=== PATIENT | male | born 1950 | race Caucasian/White ===

== ENCOUNTER 2019-05-20 22:43 | Inpatient (IN) | payer MEDICARE, SELFPAY ==
[2019-05-20 22:45] VITALS: O2SAT 97
--- NOTE | 2019-05-20 22:45 | ED_ITS ---
Entered by Cindy Rodríguez, acting as scribe for Tayler Carter MD HPI - Altered Mental Status General: Chief Complaint: Altered Mental Status Stated Complaint: AMS Time Seen by Provider: 05/20/19 22:45 Source: patient and EMS Mode of arrival: EMS History of Present Illness: HPI narrative: 68 y/o male presents to the ED with complaint of AMS. EMS states they were called by police who found him driving all over the road. Pt does not know where he is, what year it is or who the president is. Pt is able to state his name. Police spoke to his brother who is out of state. He has not other family. Pt is soaked in urine and cannot answer any questions or explain why he is here. Police found a bottle of Hydrocodone tablets in his truck. complaint: altered mental status and confusion Severity: moderate Context: unknown Associated symptoms: Deny depression Review of Systems General: Reports: ROS unobtainable due to mental status Const: Denies: fever, chills, body aches or change in appetite Eyes: Denies: blurry vision or eye discomfort ENMT: Denies: throat pain or dental pain Card: Denies: chest pain Resp: Denies: shortness of breath GI: Denies: abdominal pain, nausea, vomiting or diarrhea : Denies: painful urination Musc: Denies: neck pain or back pain Skin/Breast: Denies: rash Neuro: Denies: headache Psych: Denies: depression Stanley/Lymph: Denies: easy bruising All/Imm: Denies: hives PFSH ED PFSH: Statuses (acute, chronic, etc) shown below reflect problem list status as previously entered and may not be historically accurate Social History Smoking and tobacco status: unknown if ever smoked Physical Exam Const: COMMON NORMALS: negative for oriented x3 EXAM LIMITATIONS: altered mental status NUTRITIONAL APPEARANCE: obese ORIENTATION/CONSCIOUSNESS: Yes oriented to person and Yes confused HENMT: COMMON NORMALS: normocephalic and head/scalp atraumatic HEAD & SCALP: normocephalic and atraumatic Eye: COMMON NORMALS: PERRL and EOMs intact bilaterally PUPIL: Yes PERRL Neck/C-Spine: COMMON NORMALS: full ROM and supple Chest: COMMONS NORMALS: inspection of chest normal and palpation of chest normal Resp: COMMON NORMALS: normal respiratory effort, no retractions, no use of accessory muscles and clear to auscultation bilaterally AUSCULTATION: clear to auscultation bilaterally Cardio: COMMON NORMALS: regular rate, regular rhythm and no murmurs RATE: regular rate RHYTHM: regular rhythm GI: COMMON NORMALS: normal to inspection, nondistended, normoactive bowel sounds, soft to palpation, non-tender and no masses PALPATION: Yes soft Extremity: COMMON NORMALS: normal to inspection and full ROM Neuro: COMMON NORMALS: moves all extremities and no focal motor deficits; negative for oriented x3 SENSORIUM/ORIENTATION: Yes oriented to person Psych: APPEARANCE: Yes unkempt Skin: COMMON NORMALS: no rashes or lesions noted and no wounds GENERAL SKIN EXAM: no rashes or lesions noted Course Vital Signs: Vital signs: Vital Signs Temperature 98.5 F 05/21/19 02:18 Pulse Rate 91 05/21/19 02:18 Respiratory Rate 18 05/21/19 02:18 Blood Pressure 199/97 05/21/19 02:18 Pulse Oximetry 97 05/21/19 02:18 MDM - Altered Mental Status MDM Narrative: Medical decision making narrative: Patient presents here with altered mental status likely has chronic dementia. Patient's brother spoke to the police and states that he has been increasingly confused and brother lives in [place]. He has no family here. Patient is hypertensive as well and has not been taking his meds for months. Spoke to hospitalist will admit as patient likely needs assisted placement. He has no signs of meningitis and CT head is normal. Lab Data: Labs: Lab Results 05/20/19 05/20/19 05/20/19 Range/Units 23:12 23:12 23:12 WBC 7.1 (4.0-10.0) 10^3/ uL RBC 4.14 (4.1-5.3) 10^6/u L Hgb 12.5 (11.7-16.6) g/dL Hct 37.1 L (42.0-52.0) % MCV 89.6 (80-94) fL MCH 30.2 (28.0-34.0) pg MCHC 33.7 (30.0-36.0) g/dL RDW 12.8 (12.1-15.1) % Plt Count 193 (130-400) 10^3/c mm MPV 9.8 (7.4-10.4) fL Neut % (Auto) 70.0 % Lymph % (Auto) 16.1 % [place] % (Auto) 8.4 % Eos % (Auto) 4.2 % Baso % (Auto) 1.0 % Neut # (Auto) 5.0 (1.8-7.7) 10^3/u L Lymph # (Auto) 1.2 (0.8-4.8) 10^3/u L [place] # (Auto) 0.6 (0.2-0.9) 10^3/u L Eos # (Auto) 0.3 (0.0-0.8) 10^3/u L Baso # (Auto) 0.1 (0.0-0.1) 10^3/u L Nucleated RBC % (a uto) 0 % Nucleated RBCs # 0.0 /100WBC PT 14.50 H (10.5-13.3) SECO NDS INR 1.09 (0.8-1.2) Sodium 140 (136-145) mmol/L Potassium 3.6 (3.5-5.1) mmol/L Chloride 101 (98-107) mmol/L Carbon Dioxide 26 (22-29) mmol/L Anion Gap 16.6 (5-19) BUN 21 (8-23) mg/dL Creatinine 3.1 H (0.7-1.2) mg/dL GFR Calculation 20.0 L (90-130) mL/min Glucose 163 H (65-115) mg/dL Calcium 8.7 (8.5-10.5) mg/dL Total Bilirubin 0.2 (0.15-1.2) mg/dL AST 13 (0-40) U/L ALT 12 (0-41) U/L Alkaline Phosphata se 94 (40-130) IU/L Total Protein 6.5 L (6.6-8.7) g/dL Albumin 3.5 (3.5-5.2) g/dL Globulin 3.0 (1.3-4.6) g/dL TSH 0.72 (0.27-4.20) uIU/ mL Salicylates 0.7 L (3-10) mg/dL Acetaminophen < 5.0 L (10-30) ug/mL Ethyl Alcohol < 10 (0-10) mg/dL Imaging Data^: CXR: Attestation: I personally reviewed and interpreted this imaging study as follows: My impression: no acute abnormality CT Head: Radiologist's impression: Ordering Provider/Ordering MD: Tayler Carter MD Date of Service: 05/20/19 Procedure(s): CT head wo con* [id number] Accession Number(s): [id number] Report Number: [id number] PROCEDURE INFORMATION: Exam: CT Head Without Contrast Exam date and time: 05/20/2019 10:54 PM Age: 68 years old Clinical indication: Altered mental status/memory loss; Confusion or disorientation; Additional info: AMS TECHNIQUE: Imaging protocol: Computed tomography of the head without contrast. Total DLP: 962.63 mGy-cm Radiation optimization: All CT scans at this facility use at least one of these dose optimization techniques: automated exposure control; mA and/or kV adjustment per patient size (includes targeted exams where dose is matched to clinical indication); or iterative reconstruction. COMPARISON: No relevant prior studies available. FINDINGS: Brain: There is moderate cortical atrophy. Low-density changes are present in white matter regions in keeping with nonspecific small vessel chronic ischemic change. There is small old lacunar infarct in the right thalamus. There is no intracranial mass, hemorrhage or edema. Midline shift: There is no shift of midline structures. Ventricles: Normal. No ventriculomegaly. Bones/joints: Unremarkable. No acute fracture. Sinuses: There is opacification of the right maxillary sinus with slightly hyperdense material which contains some calcifications. This is consistent with chronic fungal sinusitis. The other paranasal sinuses are normally aerated and clear. Mastoid air cells: Visualized mastoid air cells are well aerated. Soft tissues: Unremarkable. CT/CT head wo con* [id number] IMPRESSION: 1. Atrophy and old lacunar disease. 2. Chronic right maxillary fungal sinusitis. 3. No acute intracranial finding EKG Data^: EKG 1: Attestation: I personally reviewed and interpreted this EKG as follows: EKG interpretation date: 05/19/19 EKG interpretation time: 22:58 Interpretation: nsr hr [address] or twave abnormalities qrs 112 qtc 446 Discharge Plan Discharge Patient Disposition: Admitted As Inpatient Admit Provider: Hira Ruiz Clinical Impression: Altered mental status Qualifiers: Altered mental status type: unspecified Qualified Code(s): R41.82 - Altered mental status, unspecified Hypertension Qualifiers: Hypertension type: essential hypertension Qualified Code(s): I10 - Essential (primary) hypertension Condition: Stable Interventions: ED Discharge Assessment Last Done: 05/21/19 02:18 Discharge Date/Time: 05/21/19 02:23 Coding Level of Care Code ED Ammonium Hydroxide Operator for [facility] Fwsandra The documentation recorded by the Marcos calabrese Ashley, accurately reflects the service I personally performed and the decisions made by Raul marin Korby, MD May 20, 2019 22:43
--- NOTE | 2019-05-20 22:50 | CTR_ITS ---
PROCEDURE INFORMATION: Exam: CT Head Without Contrast Exam date and time: 05/20/2019 10:54 PM Age: 68 years old Clinical indication: Altered mental status/memory loss; Confusion or disorientation; Additional info: AMS TECHNIQUE: Imaging protocol: Computed tomography of the head without contrast. Total DLP: 962.63 mGy-cm Radiation optimization: All CT scans at this facility use at least one of these dose optimization techniques: automated exposure control; mA and/or kV adjustment per patient size (includes targeted exams where dose is matched to clinical indication); or iterative reconstruction. COMPARISON: No relevant prior studies available. FINDINGS: Brain: There is moderate cortical atrophy. Low-density changes are present in white matter regions in keeping with nonspecific small vessel chronic ischemic change. There is small old lacunar infarct in the right thalamus. There is no intracranial mass, hemorrhage or edema. Midline shift: There is no shift of midline structures. Ventricles: Normal. No ventriculomegaly. Bones/joints: Unremarkable. No acute fracture. Sinuses: There is opacification of the right maxillary sinus with slightly hyperdense material which contains some calcifications. This is consistent with chronic fungal sinusitis. The other paranasal sinuses are normally aerated and clear. Mastoid air cells: Visualized mastoid air cells are well aerated. Soft tissues: Unremarkable. CT/CT head wo con* [id number] IMPRESSION: 1. Atrophy and old lacunar disease. 2. Chronic right maxillary fungal sinusitis. 3. No acute intracranial finding Radiation Dose CTDIVOL = (mGy): DLP = 962.63 (mGy-cm)
--- NOTE | 2019-05-20 22:50 | XR_ITS ---
WS: [id number] CHEST XRAY TECHNIQUE: Portable chest. CLINICAL INFORMATION: COMPARISON: November 20, 2014 FINDINGS: Heart: Cardiomegaly. Sternotomy. Lungs: Lungs are clear. No consolidation or pleural effusion. Bones: Normal visualized bony structures. XR/XR chest 1V portable [id number] IMPRESSION: Cardiomegaly. No acute pulmonary infiltrates.
--- NOTE | 2019-05-20 22:51 | ECG_ITS ---
Measurements Intervals [place] Rate: 99 P: -44 NE: 150 QRS: 26 QRSD: 113 T: 38 QT: 340 QTc: 437 SINUS RHYTHM WITH SINUS ARRHYTHMIA, PAC LEFT ATRIAL ENLARGEMENT [-0.15mV P WAVE IN V1/V2] POSSIBLE LEFT VENTRICULAR HYPERTROPHY [VOLTAGE CRITERIA PLUS LAE OR QRS WIDENING] INFERIOR MYOCARDIAL INFARCTION , PROBABLY OLD [40+ ms Q WAVE AND/OR ST/T AB ABNORMALITY IN II/aVF] Compared to ECG 11/21/2014 13:59:04 Atrial abnormality now present Myocardial infarct finding now present Sinus bradycardia no longer present Intraventricular conduction delay no longer present ST (T wave) deviation no longer present Electronically Signed On 05-21-2019 9:29:06 CASTING SUPERVISOR by Heri Maria M.D. [email or web address]
[2019-05-20 22:55] VITALS: BP 244/112; PULSE 75; RESP 16; TEMP 36.8; O2SAT 93; BMI 33.2
[2019-05-20 23:01] VITALS: BP 233/105; PULSE 76; RESP 17; O2SAT 92
[2019-05-20 23:19] LABS: Basophils # 0.1 10^3/uL (0.0-0.1); Eosinophils # 0.3 10^3/uL (0.0-0.8); Eosinophils % 4.2 %; Hematocrit 37.1 % (42.0-52.0); Hemoglobin 12.5 g/dL (11.7-16.6); Lymphocytes # 1.2 10^3/uL (0.8-4.8); Lymphocytes % 16.1 %; Mean Corpuscular HGB Conc 33.7 g/dL (30.0-36.0); Mean Corpuscular Hemoglobin 30.2 pg (28.0-34.0); Mean Corpuscular Volume 89.6 fL (80-94); Mean Platelet Volume 9.8 fL (7.4-10.4); Monocytes # 0.6 10^3/uL (0.2-0.9); Monocytes % 8.4 %; Nucleated Red Blood Cells % 0 %; Platelet Count 193 10^3/cmm (130-400); Red Blood Count 4.14 10^6/uL (4.1-5.3); Red Cell Distribution Width 12.8 % (12.1-15.1); White Blood Count 7.1 10^3/uL (4.0-10.0)
[2019-05-20 23:30] LABS: INR 1.09 (0.8-1.2)
[2019-05-20 23:31] VITALS: BP 214/91; PULSE 77; RESP 15; O2SAT 93
[2019-05-20 23:44] LABS: Alanine Aminotransferase 12 U/L (0-41); Albumin Level 3.5 g/dL (3.5-5.2); Alkaline Phosphatase 94 IU/L (40-130); Anion Gap 16.6 (5-19); Aspartate Amino Transferase 13 U/L (0-40); Blood Urea Nitrogen 21 mg/dL (8-23); Calcium 8.7 mg/dL (8.5-10.5); Carbon Dioxide 26 mmol/L (22-29); Chloride 101 mmol/L (98-107); Potassium 3.6 mmol/L (3.5-5.1); Salicylate 0.7 mg/dL (3-10); Sodium 140 mmol/L (136-145); Thyroid Stimulating Hormone 0.72 uIU/mL (0.27-4.20); Total Bilirubin 0.2 mg/dL (0.15-1.2); Total Protein 6.5 g/dL (6.6-8.7)
[2019-05-20] MEDS: hyDRALAzine 20 mg/mL INJ 1 mL 10 MG IVP (23:54)
[2019-05-20 23:58] LABS: Acetaminophen < 5.0 ug/mL (10-30); Alcohol Level < 10 mg/dL (0-10)
[2019-05-21] VITALS (24 sets, daily range): BP systolic 114–220; BP diastolic 51–114; PULSE 71–107; RESP 10–35; TEMP 35.9–37.2; O2SAT 90–97
[2019-05-21] MEDS: cloNIDine 0.1 mg Tablet PO (00:26)
[2019-05-21] MEDS: hyDRALAzine 20 mg/mL INJ 1 mL 10 MG IVP (02:00)
--- NOTE | 2019-05-21 02:38 | PC.NURSE ---
While Dr. Ruiz was assessing patient for admission patient began seizing. Patient had what appeared to be a full tonic-clonic seizure for approx 30 seconds. Patient was post ictal afterwards and lost control of bladder. Dr. Valdivia ordered 2mg Ativan IV push that was overridden and administered immediately.
[2019-05-21] MEDS: LORazepam 2 mg/mL INJ 1 mL IVP (02:40)
--- NOTE | 2019-05-21 02:44 | CTR_ITS ---
PROCEDURE INFORMATION: Exam: CT Thoracic Spine Without Contrast Exam date and time: 05/21/2019 3:23 AM Age: 68 years old Clinical indication: Pain in thoracic spine; Additional info: Thoracic spine pain TECHNIQUE: Imaging protocol: Computed tomography images of the thoracic spine without contrast. Total DLP: 2453.68 mGy-cm Radiation optimization: All CT scans at this facility use at least one of these dose optimization techniques: automated exposure control; mA and/or kV adjustment per patient size (includes targeted exams where dose is matched to clinical indication); or iterative reconstruction. COMPARISON: [place] Thoracic [place] IV* [id number] 2014-11-18 16:19 FINDINGS: Tubes, catheters and devices: Device implanted in the soft tissues. Vertebrae: Exaggerated thoracic kyphosis with maintained vertebral body heights and alignments. Discs/Spinal canal/Neural foramina: Mild degenerative disc and joint disease. No significant stenosis. Soft tissues: Periarticular spurs. Lungs: Dependent subsegmental pulmonary atelectasis. CT/CT thoracic spin wo con* [id number] IMPRESSION: Unremarkable CT Spine. Radiation Dose CTDIVOL = (mGy): DLP = 2453.68 (mGy-cm)
--- NOTE | 2019-05-21 02:50 | PC.NURSE ---
Cardene started at 5mg/hr unable to access in MAR
--- NOTE | 2019-05-21 02:53 | CTR_ITS ---
PROCEDURE INFORMATION: Exam: CT Lumbar Spine Without Contrast Exam date and time: 05/21/2019 3:23 AM Age: 68 years old Clinical indication: Low back pain TECHNIQUE: Imaging protocol: Computed tomography images of the lumbar spine without contrast. Total DLP: 2422.15 mGy-cm Radiation optimization: All CT scans at this facility use at least one of these dose optimization techniques: automated exposure control; mA and/or kV adjustment per patient size (includes targeted exams where dose is matched to clinical indication); or iterative reconstruction. COMPARISON: [place] [id number] 2018-12-13 14:37 FINDINGS: Vertebrae: Normal spinal curvature, vertebral body heights, and alignment. No spinal fracture or acute subluxation. Discs/Spinal canal/Neural foramina: Diffuse degenerative disc space loss, facet arthropathy and ligamentum flavum thickening, and scattered disc bulge/protrusions cause up to moderate foraminal and spinal stenosis most severe from L3 through S1. Soft tissues: Unremarkable. CT/CT lumbar spine wo con* [id number] IMPRESSION: No acute vertebral fracture/subluxation. Radiation Dose CTDIVOL = (mGy): DLP = 2422.15 (mGy-cm)
--- NOTE | 2019-05-21 02:53 | CTR_ITS ---
PROCEDURE INFORMATION: Exam: CT Abdomen And Pelvis Without Contrast Exam date and time: 05/21/2019 3:23 AM Age: 68 years old Clinical indication: Abdominal pain; Additional info: Abdominal distention, kidney stone TECHNIQUE: Imaging protocol: Computed tomography of the abdomen and pelvis without contrast. Total DLP: 1715.83 mGy-cm Radiation optimization: All CT scans at this facility use at least one of these dose optimization techniques: automated exposure control; mA and/or kV adjustment per patient size (includes targeted exams where dose is matched to clinical indication); or iterative reconstruction. COMPARISON: US Renal Kidney Structu* [id number] 2014-07-10 09:14 FINDINGS: Limitations: Artifact related to patient's arm position limits evaluation. Tubes, catheters and devices: Partially visualized spinal stimulator device. A balloon bladder catheter is present. Lungs: Dependent subsegmental pulmonary atelectasis. Liver: Normal. No mass. Gallbladder and bile ducts: Cholelithiasis. Pancreas: Normal. No ductal dilation. Spleen: Normal. No splenomegaly. Adrenals: Normal. No mass. Kidneys and ureters: Mild renal atrophy. Stomach and bowel: Constipation. Appendix: No evidence of appendicitis. Intraperitoneal space: Unremarkable. No free air. No significant fluid collection. Vasculature: Mild to moderate aortic and iliac artery atherosclerotic calcification. Lymph nodes: Unremarkable. No enlarged lymph nodes. Bladder: Unremarkable as visualized. Reproductive: Unremarkable as visualized. Bones/joints: Sternotomy. Soft tissues: Small fat protruding umbilical hernia. CT/CT abdomen pelvis wo con [id number] IMPRESSION: 1. Cholelithiasis. 2. Constipation. Radiation Dose CTDIVOL = (mGy): DLP = 1715.83 (mGy-cm)
--- NOTE | 2019-05-21 03:20 | PC.NURSE ---
Blood pressure decreased to 114 systolic, Cardene reduced to 2.5mg/hr
[2019-05-21 03:28] LABS: Glucose Urine UA 1+ (Normal); Protein Urine 3+ (Negative); Urine Appearance Clear (CLEAR); Urine Color Yellow (Yellow); pH Urine 7 (5-7)
[2019-05-21 03:30] LABS: Add Urine Microscopic? YES; Bilirubin Urine Neg (NEGATIVE); Blood Urine Neg (Negative); Ketones Urine Negative (Negative); Leukocyte Esterase Urine Negative (Negative); Nitrate Urine Negative (Negative); RBC Urine 0-4 /hpf (0-2); Urobilinogen Urine Norm (Negative)
--- NOTE | 2019-05-21 03:32 | PM.HP ---
Providers/Chief Complaint Admitting Physician: Hira Ruiz MD Chief Complaint: AMS, HYPERTENSION History of Present Illness Moy Fernandez is a 68 year old male with a past medical history of combined systolic and diastolic heart failure, last ejection fraction 35%, history of CABG x3, hypertension, hyperlipidemia, type 2 diabetes mellitus, hyperlipidemia, chronic kidney disease stage III-IV, history of spinal stimulator, who presents to the emergency room due to altered mental status. Currently patient is not answering any questions alert oriented x0. Most of the history was obtained from secondhand accounts. Apparently early Sunday morning, patient was found driving, swerving on the road, he was pulled over by the police, patient was acting confused, was not responding appropriate to questioning, did not know where he was going, did not know where he came from. In the emergency room, patient does not appropriate respond to questioning, he will follow some commands such as opening his eyes, closing his mouth, squeezing my fingers, wiggling his toes, smiling, but will not respond to questioning, he did repeat the phrase sit forward a couple times for me. When asked him to sit forward he actually sat forward a little, I helped him forward and I ran my hand over his upper back, patient suddenly became very agitated started crying out in pain, his dentures fell out, and then subsequently went into a tonic-clonic seizure which lasted 1 minute, had urinary incontinence, was aborted with 2 mg of Ativan, patient had postictal confusion afterwards, and then fell asleep, currently snoring, heart rates in the 100s sinus, blood pressures was in the 190s over 80s, after minimal Cardene drip, came down to 114/67, he is saturating high 90s on 2 L nonrebreather, has bilateral pupillary reflexes, does not track, is sleeping off the Ativan. Nursing staff was able to reach out to brother in [place], brother in [place] states that for the past few weeks patient has not been acting appropriately over the phone, has been acting confused, such as is been talking about seeing his mother, but his mother has many years ago. Review of Systems General: Reports: ROS unobtainable due to mental status Medications/Allergies Additional Medication Information Additional Medication Information: [place] 7.5 BID PFSH Acute PFSH: Statuses (acute, chronic, etc) shown below reflect problem list status as previously entered and may not be historically accurate Medical History (Updated 05/21/19 @ 03:44 by Hira Ruiz MD) CKD (chronic kidney disease), stage III (Acute) Combined systolic and diastolic congestive heart failure (Acute) Multilevel degenerative disc disease (Acute) Peripheral neuropathy (Acute) Spinal cord stimulator status (Acute) Spinal stenosis (Acute) Type 2 diabetes mellitus (Acute) Surgical History (Updated 05/21/19 @ 03:48 by Hira Ruiz MD) S/P CABG x 3 (Acute) S/P insertion of spinal cord stimulator (Acute) Social History Smoking and tobacco status: unknown if ever smoked Vitals/I&O/Wt Last Vital Signs Temp 98.5 F 05/21/19 02:18 Pulse 91 05/21/19 02:18 Resp 18 05/21/19 02:18 BP 114/67 05/21/19 03:20 Pulse Ox 97 05/21/19 02:18 Weight last 48 hrs Weight 102.058 kg Physical Exam Const: COMMON NORMALS: no apparent distress GENERAL APPEARANCE: cooperative and comfortable HENMT: COMMON NORMALS: normocephalic HEAD & SCALP: normocephalic Eye: COMMON NORMALS: PERRL and EOMs intact bilaterally GENERAL EYE: normal appearance of both eyes PUPIL: Yes PERRL Neck/C-Spine: COMMON NORMALS: full ROM, no lymphadenopathy, no JVD and thyroid normal Lymph: LYMPHATIC: no lymphadenopathy noted Resp: COMMON NORMALS: normal respiratory effort, no retractions, no use of accessory muscles and clear to auscultation bilaterally AUSCULTATION: clear to auscultation bilaterally Cardio: COMMON NORMALS: no JVD, regular rate, regular rhythm, S1 normal heart sound, S2 normal heart sound, no gallops, no clicks and no murmurs RATE: regular rate RHYTHM: regular rhythm HEART SOUNDS: S1 normal and S2 normal GI: COMMON NORMALS: normal to inspection, nondistended, normoactive bowel sounds, soft to palpation, non-tender and no hepatosplenomegaly PALPATION: Yes soft and Yes no hepatosplenomegaly Extremity: COMMON NORMALS: normal to inspection, full ROM and no pedal edema Neuro: OTHER: Alert oriented x1 Does follow commands such as opening his mouth, sticking his tongue out, moving to the left, to moving into the right, closes his eyes, squeezes my fingers, wiggles his toes, does not really speak, did repeat the face sit forward a couple of times, PERRLA, no facial droop, no slurring of his speech, Psych: APPEARANCE: Yes unkempt Data : 05/20/19 23:12 05/20/19 23:12 A&P Assessment and plan (1) Altered mental status: -Work-up so far is pending -UA is pending -We will start on Rocephin for possible UTI until UA can be obtained -Chest x-ray negative for pneumonia -No fevers, no leukocytosis, no neck stiffness -Abdomen is a bit distended, will do CT abdomen -Salicylates negative, acetaminophen negative, alcohol level negative, drug screen pending Status: Acute Qualifiers: Altered mental status type: unspecified Qualified Code(s): R41.82 - Altered mental status, unspecified Code(s): R41.82 - Altered mental status, unspecified (2) Hypertensive urgency: -Cardene drip Status: Acute Code(s): I16.0 - Hypertensive urgency (3) Tonic-clonic seizure disorder: -Aborted with 2 mg Ativan -We will order EEG -On Keppra IV 500 twice daily -Possibly pain induced seizure from back pain? Status: Acute Code(s): G40.409 - Other generalized epilepsy and epileptic syndromes, not intractable, without status epilepticus (4) Hypertension: Status: Acute Qualifiers: Hypertension type: essential hypertension Qualified Code(s): I10 - Essential (primary) hypertension Code(s): I10 - Essential (primary) hypertension (5) Multilevel degenerative disc disease: -Patient was quite tender over over the thoracic and lumbar spine -We will order CT of lumbar thoracic spine -Patient does have a history of a spinal cord stimulator, has a history of postoperative epidural hematoma in the thoracic region on 11/18/2014 -Inflammatory markers ordered Status: Acute Code(s): M53.9 - Dorsopathy, unspecified (6) Spinal stenosis: Status: Acute Code(s): M48.00 - Spinal stenosis, site unspecified (7) Combined systolic and diastolic congestive heart failure: -Patient's echo in -Patient had a stress test in 06/05/2018 which showed small sized perfusion abnormality of the entire inferior, apical septal, and apical esparza, likely represent old myocardial infarct versus scarring with mild urmila-infarct ischemia in the right coronary artery territory. Mild global hypokinesia with moderate hypokinesia of the entire inferior wall. -Echocardiogram in 06/05/2018 showed Left ventricular ejection fraction of 35%, diastolic CHF -Currently has bilateral lower extremity edema, 1+ -Creatinine is 3.1 has CKD stage III, baseline creatinine 2 Plan: -Currently not in exacerbation of CHF -Hold diuretics Status: Acute Code(s): I50.40 - Unspecified combined systolic (congestive) and diastolic (congestive) heart failure (8) Type 2 diabetes mellitus: Sliding scale Status: Acute Code(s): E11.9 - Type 2 diabetes mellitus without complications (9) CKD (chronic kidney disease), stage III: Baseline creatinine 2 Creatinine 3[address] of the abdomen to evaluate for possible nephrolithiasis Monitor creatinine and kidney function Status: Acute Code(s): N18.3 - Chronic kidney disease, stage 3 (moderate) Attestations Medical Necessity Statement*: Patient requires hospitalization, inpatient, for altered mental status Coding Level of Care Code Acute Dynamometer Tuner for [facility] Fwd Diagnoses Altered mental status R41.82 Altered mental status type: unspecified Hypertensive urgency I16.0 Tonic-clonic seizure disorder G40.409 Hypertension I10 Hypertension type: essential hypertension Multilevel degenerative disc disease M53.9 Spinal stenosis M48.00 Combined systolic and diastolic congestive heart failure I50.40 Type 2 diabetes mellitus E11.9 CKD (chronic kidney disease), stage III N18.3
[2019-05-21 03:33] LABS: Add Urine Culture? No; Amorphous Sediment Urine 2+; Bacteria Urine 1+; Squamous Epithelial Cell Urine 0-4 (0-5); WBC Urine 0-4 /hpf (0-5)
--- NOTE | 2019-05-21 03:41 | PC.NURSE ---
Patient held in ED to wait for CT to be ready to complete CT's so patient could have CT's completed on the way to ICU.
[2019-05-21 05:12] LABS: Amphetamines Screen Urine Negative (Negative); Barbiturates Screen Urine Negative (Negative); Benzodiazepines Screen Urine Negative (Negative); Cocaine Screen Urine Negative (Negative); Opiate Screen Urine Negative (Negative); PCP Screen Urine Negative (Negative); THC Screen Urine Negative (Negative)
[2019-05-21] MEDS: enoxaparin 40 mg/0.4 mL Syringe SUBCUT (05:17)
[2019-05-21] MEDS: cefTRIAXone 1,000 MG in sodium chloride 0.9% (plus) 50 ML 100 MG IV (05:17)
[2019-05-21] MEDS: sodium chloride 0.9% 1,000 ML 75 ML IV ×2 (05:17→22:00)
[2019-05-21 07:01] LABS: Alanine Aminotransferase 11 U/L (0-41); Albumin Level 3.3 g/dL (3.5-5.2); Alkaline Phosphatase 92 IU/L (40-130); Anion Gap 20.4 (5-19); Aspartate Amino Transferase 13 U/L (0-40); Blood Urea Nitrogen 19 mg/dL (8-23); C Reactive Protein 6.9 mg/L (0.0-4.9); Calcium 8.8 mg/dL (8.5-10.5); Carbon Dioxide 22 mmol/L (22-29); Chloride 101 mmol/L (98-107); Chol HDL Ratio 8.53 mg/dL (1.0-5.00); Cholesterol 273 mg/dL (0-200); Globulin 3.4 g/dL (1.3-4.6); Glomerular Filtration Rate 21.6 mL/min (90-130); HDL Cholesterol 32 mg/dL (60-100); LDL Cholesterol Calculated 210 mg/dL (50-129); LDL HDL Ratio 6.56 RATIO (0.00-3.22); Magnesium 1.8 mg/dL (1.7-2.3); Potassium 3.4 mmol/L (3.5-5.1); Sodium 140 mmol/L (136-145); Total Bilirubin 0.4 mg/dL (0.15-1.2); Total Protein 6.7 g/dL (6.6-8.7); Triglycerides 154 mg/dL (0-150)
[2019-05-21 07:08] LABS: Estmated Average Glucose 171; Hemoglobin A1C 7.6 % (4.0-6.0)
[2019-05-21 07:10] LABS: Thyroid Stimulating Hormone 0.78 uIU/mL (0.27-4.20)
[2019-05-21 07:13] LABS: Procalcitonin 0.15 ng/mL (0-0.5)
[2019-05-21 07:23] LABS: Glucose Point of Care 255 mg/dL (70-110)
[2019-05-21 07:32] LABS: Erythrocyte Sedimentation Rate 57 mm/hr (0-10)
[2019-05-21 09:08] LABS: Glucose 163 mg/dL (65-115)
[2019-05-21 09:17] LABS: Glucose 297 mg/dL (65-115)
--- NOTE | 2019-05-21 09:43 | PC.CHAP ---
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 helper marble finisher visit [] Patient/Family/Request visit [] Outpatient visit [] Follow-up visit [] Physician referral [] Code/Alert [] Routine visit [] Staff referral [] Actively dying [] Patient sleeping [] Family support [] [] Out of room [] Palliative care [] [] Receiving care in room [] Pre-surgical visit [] Trauma [] Long length of stay [] ICU visit [] Other: Relational/Emotional Strength [] Patient feels connected with others/family/visitors/staff [] Distress [] Loneliness/isolation [] Abandonment Spirituality of Patient [] Person of Ghislaine [] Attends Catholic of their Ghislaine [] Believes in Prayer [] Reads Bible or Shinto materials [] There are Spiritual issues to be addressed Oxygen Therapist Interventions [] Prayer [] Active listening [] Non-anxious presence [] Spiritual/emotional support [] Crisis/trauma care [] Spiritual counseling [] Bereavement support [] Provided bereavement packet [] Provided Bible/devotional materials [] Provided toy/stuffed animal, coloring book to patient or family member [] Provided Communion [] Anointing/[place] [] Salvation [] Completed spiritual assessment [] Other: Impact on Illness or Injury [] Angry [] Fearful [] Anxious [] Often cries [] Exhaustion [] Unable to work [] Unable to attend church [] Unable to walk/stand [] Unable to read [] Unable to drive [] Unable to eat/drink [] Unable to sleep [] Unable to be with family [] Patient intubated [] Other: Summary Tpatient was sleeping. The helper marble finisher prayed outside for him outside the door. Time spent with patient 6 min.
--- NOTE | 2019-05-21 10:01 | P.PN_ITS ---
Subjective Subjective: Interval history: Chart reviewed, including labs, imaging, vital signs. Still quite hypertensive though current BP-143/88, on nicardipine drip at 2.5 mg/hr. Arousable, responds to verbal and tactile stimulation, aware he is at the hospital, [facility] [place] but then starts talking about his dog keeping him warm. Still quite sleepy. Medications: Reviewed: Yes Medication Review Details: Current Medications Generic Name Dose Route Start Last Admin Trade Name Freq PRN Reason Stop Dose Admin Nicardipine HCl 25 mg/ Sodium 250 mls @ 0 mls/h r 05/21/19 02:45 05/21/19 05:59 Chloride IV 2.5 mg/hr .Q0M YANELI 25 mls/hr Administration Protocol Per Protocol Levetiracetam 500 mg/ Sodium 105 mls @ 420 mls /hr 05/21/19 03:00 05/21/19 06:01 Chloride IV Infused Q12H YANELI Infusion Sodium Chloride 1,000 mls @ 75 ml s/hr 05/21/19 04:15 05/21/19 05:17 Sodium Chloride 0.9% IV 75 mls/hr .[id number] YANELI Administration Insulin Aspart 0 unit 05/21/19 08:00 05/21/19 07:31 Novolog SUBCUT 6 unit TIDWM YANELI Administration Protocol Vitals/I&O/Wt Last Vital Signs Temp 96.7 F L 05/21/19 08:00 Pulse 103 H 05/21/19 08:00 Resp 14 05/21/19 08:00 BP 173/114 05/21/19 08:00 Pulse Ox 92 05/21/19 08:00 05/20/19 05/21/19 05/21/19 22:59 06:59 14:59 Intake Total 155 / 155 0 / 0 Output Total 700 / 700 Balance -545 / -545 0 / 0 Weight last 48 hrs Weight 102.058 kg Physical Exam 2 Const: COMMON NORMALS: no apparent distress GENERAL APPEARANCE: cooperative and comfortable ORIENTATION/CONSCIOUSNESS: Yes oriented to place HENMT: COMMON NORMALS: normocephalic, head/scalp atraumatic, hearing grossly normal bilaterally and moist oral mucous membranes HEAD & SCALP: normo cephalic and atraumatic Eye: COMMON NORMALS: PERRL, EOMs intact bilaterally and conjunctivae normal CONJUNCTIVA: Yes conjunctivae normal PUPIL: Yes PERRL Neck/C-Spine: COMMON NORMALS: full ROM GENERAL: Yes normal visual inspection and Yes trachea midline Resp: COMMON NORMALS: normal respiratory effort, no retractions, no use of accessory muscles and clear to auscultation bilaterally EFFORT & INSPECTION: Yes able to speak in complete sentences, Yes symmetric chest movement and No tachypneic AUSCULTATION: clear to auscultation bilaterally Cardio: COMMON NORMALS: regular rate, regular rhythm, S1 normal heart sound, S2 normal heart sound and no murmurs RATE: regular rate RHYTHM: regular rhythm HEART SOUNDS: S1 normal and S2 normal GI: COMMON NORMALS: normal to inspection, nondistended, normoactive bowel sounds, soft to palpation and non-tender PALPATION: Yes soft Extremity: COMMON NORMALS: normal to inspection, full ROM and no clubbing, cyanosis or edema; negative for no pedal edema Neuro: COMMON NORMALS: moves all extremities, no focal motor deficits and no sensory deficits noted SENSORIUM/ORIENTATION: Yes oriented to place and Yes other (arousable to verbal and tactile stimulation) Psych: COMMON NORMALS: mental status grossly normal, thought process normal, cooperative, affect normal and speech normal SPEECH: Yes normal speech THOUGHT PROCESS: normal thought process Skin: COMMON NORMALS: no rashes or lesions noted, no jaundice, no petechiae and no mottling GENERAL SKIN EXAM: no rashes or lesions noted Urinary Catheter Management^: Denise: Cath Placed During This Visit: yes Urethral Indwelling: Yes Reason for Continuing Indwelling Catheter: Accurate Measurement of Urinary Output in Critically Ill Patients Urinary Catheter Date of Insertion: 05/21/19 Urinary Catheter Time of Insertion: 02:30 Data : 05/20/19 23:12 05/21/19 06:05 Micro: Microbiology 05/21/19 06:05 Blood Culture - Preliminary Blood SPECIMEN COLLECTED 05/21/19 06:15 Blood Culture - Preliminary Blood SPECIMEN COLLECTED A&P Assessment and plan (1) Altered mental status: -unclear etiology at this time -noted elevated inflammatory markers but no clear infectious source as UA, imaging all negative -d/c Ceftriaxone -remains hypertensive -neurochecks -fall/aspiration precautions -UDS, EtOH screen negative -noted renal impairment but unlikely to be contributing to this level of disorientation -noted seizure-like activity that responded to Ativan -f/u EEG -continue seizure precautions -continue Keppra -NPO -may need to consider MRI, lumbar puncture if continued altered mental status with no clear cause -noted to have bottle of hydrocodone in truck when pulled over by police Status: Acute Qualifiers: Altered mental status type: unspecified Qualified Code(s): R41.82 - Altered mental status, unspecified Code(s): R41.82 - Altered mental status, unspecified (2) Hypertensive urgency: -on Nicardipine drip; wean off with improved BP -continue to monitor vitals closely Status: Acute Code(s): I16.0 - Hypertensive urgency (3) Combined systolic and diastolic congestive heart failure: -has known hx of chronic combined systolic and diastolic CHF; no acute exacerbation currently -Echo (05/2018): EF=35% -stress testing in 05/2018 showing scarring with mild urmila-infarct ischemia in RCA territory Status: Acute Qualifiers: Heart failure chronicity: chronic Qualified Code(s): I50.42 - Chronic combined systolic (congestive) and diastolic (congestive) heart failure Code(s): I50.40 - Unspecified combined systolic (congestive) and diastolic (congestive) heart failure (4) Multilevel degenerative disc disease: -has known hx of multilevel DJD, s/p spinal stimulator -hold opiates, sedating meds due to altered mental status -fall precautions -imaging reviewed, no acute findings Status: Acute Code(s): M53.9 - Dorsopathy, unspecified (5) CKD (chronic kidney disease), stage III: -known hx of CKD stage 3; baseline Cr is around 2 -avoid nephrotoxins, renally dose meds -continue to monitor renal function Status: Acute Code(s): N18.3 - Chronic kidney disease, stage 3 (moderate) Additional A&P Information -hx of CAD s/p CABG x 3 -HTN -Hyperlipidemia; noted lipid panel -NIDDM type II; A1c-7.6. Accuchecks, ISS -GERD -need med rec confirmed -DVT ppx with Lovenox -Dispo: pending clinical improvement -Code status: FULL code Attestations Medical Necessity Statement*: Patient requires hospitalization for continued management of altered mental status, pending improvement in mental status. Time Spent in Patient Care: Greater than 35 minutes (>than 50% of time spent in counselling and/or direct pt care on unit) . Coding Level of Care Code Acute Bill Of Lading Clerk for Chg Fwd Exam Problem Focused Diagnoses Altered mental status R41.82 Altered mental status type: unspecified Hypertensive urgency I16.0 Combined systolic and diastolic congestive heart failure I50.42 Heart failure chronicity: chronic Multilevel degenerative disc disease M53.9 CKD (chronic kidney disease), stage III N18.3
[2019-05-21 11:17] LABS: Glucose Point of Care 197 mg/dL (70-110)
--- NOTE | 2019-05-21 11:27 | PC.OT ---
OT EVALUATION HELD DUE TO AWAITING TESTING RESULTS.
[2019-05-21 16:54] LABS: Glucose Point of Care 133 mg/dL (70-110)
[2019-05-21] MEDS: labetalol 5 mg/mL SDV 20mL 20 MG IVP (21:06)
[2019-05-21 21:37] LABS: Glucose Point of Care 199 mg/dL (70-110)
--- NOTE | 2019-05-21 23:16 | PC.NURSE ---
Pt transferred from ICU via wheelchair. Transferred to bed with 1 assist. Patient in pleasant mood and compliant.
[2019-05-22] VITALS (10 sets, daily range): BP systolic 146–178; BP diastolic 62–80; PULSE 72–87; RESP 16–24; TEMP 37–37.6; O2SAT 92–96
[2019-05-22] MEDS: acetaminophen 325 mg Tablet 650 MG PO (00:49)
[2019-05-22 04:28] LABS: Basophils # 0.1 10^3/uL (0.0-0.1); Basophils % 0.5 %; Eosinophils # 0.1 10^3/uL (0.0-0.8); Eosinophils % 0.8 %; Hematocrit 32.1 % (42.0-52.0); Hemoglobin 10.8 g/dL (11.7-16.6); Lymphocytes # 1.2 10^3/uL (0.8-4.8); Lymphocytes % 10.2 %; Mean Corpuscular HGB Conc 33.6 g/dL (30.0-36.0); Mean Corpuscular Hemoglobin 31.5 pg (28.0-34.0); Mean Corpuscular Volume 93.6 fL (80-94); Mean Platelet Volume 10.9 fL (7.4-10.4); Monocytes # 0.9 10^3/uL (0.2-0.9); Monocytes % 7.8 %; Neutrophils # 9.1 10^3/uL (1.8-7.7); Neutrophils % 80.3 %; Nucleated Red Blood Cells % 0 %; Platelet Count 185 10^3/cmm (130-400); Red Blood Count 3.43 10^6/uL (4.1-5.3); Red Cell Distribution Width 13.2 % (12.1-15.1); White Blood Count 11.3 10^3/uL (4.0-10.0)
[2019-05-22 04:50] LABS: Alanine Aminotransferase 8 U/L (0-41); Albumin Level 2.7 g/dL (3.5-5.2); Alkaline Phosphatase 73 IU/L (40-130); Anion Gap 15.1 (5-19); Aspartate Amino Transferase 19 U/L (0-40); Blood Urea Nitrogen 17 mg/dL (8-23); Calcium 8.3 mg/dL (8.5-10.5); Carbon Dioxide 23 mmol/L (22-29); Chloride 106 mmol/L (98-107); Globulin 2.3 g/dL (1.3-4.6); Glomerular Filtration Rate 21.6 mL/min (90-130); Glucose 191 mg/dL (65-115); Magnesium 1.7 mg/dL (1.7-2.3); Phosphorus 2.7 mg/dL (2.5-4.5); Potassium 3.1 mmol/L (3.5-5.1); Sodium 141 mmol/L (136-145); Total Bilirubin 0.2 mg/dL (0.15-1.2)
[2019-05-22] MEDS: enoxaparin 30 mg/0.3 mL Syringe SUBCUT (05:59)
[2019-05-22 06:51] LABS: Glucose Point of Care 181 mg/dL (70-110)
[2019-05-22] MEDS: amlodipine 10 mg Tablet PO (07:38)
--- NOTE | 2019-05-22 08:49 | PM.PN ---
Subjective Subjective: Interval history: AM labs noted. Patient seen and examined, sitting up in chair by bedside, definitely much more alert today than he has been since admission. Oriented x 3. Has declined SNF placement but may be open to home health. No seizure-like activity noted overnight. Medications: Reviewed: Yes Medication Review Details: Current Medications Generic Name Dose Route Start Last Admin Trade Name Jaleesa PRN Reason Stop Dose Admin Nicardipine HCl 25 mg/ Sodium 250 mls @ 0 mls/h r 05/21/19 02:45 05/21/19 05:59 Chloride IV 2.5 mg/hr .Q0M YANELI 25 mls/hr Administration Protocol Per Protocol Levetiracetam 500 mg/ Sodium 105 mls @ 420 mls /hr 05/21/19 03:00 05/21/19 06:01 Chloride IV Infused Q12H YANELI Infusion Sodium Chloride 1,000 mls @ 75 ml s/hr 05/21/19 04:15 05/21/19 05:17 Sodium Chloride 0.9% IV 75 mls/hr .[id number] YANELI Administration Insulin Aspart 0 unit 05/21/19 08:00 05/21/19 07:31 Novolog SUBCUT 6 unit TIDWM YANELI Administration Protocol Vitals/I&O/Wt Last Vital Signs Temp 98.9 F 05/22/19 07:21 Pulse 73 05/22/19 07:21 Resp 16 05/22/19 07:21 BP 160/80 05/22/19 07:21 Pulse Ox 93 05/22/19 07:21 05/21/19 05/22/19 05/22/19 22:59 06:59 14:59 Intake Total 1360 / 1614.583 562.5 / 2177.083 Output Total 500 / 500 450 / 950 Balance 860 / 1114.583 112.5 / 1227.083 Weight last 48 hrs Weight 102.058 kg Physical Exam Const: COMMON NORMALS: no apparent distress, oriented x3 and alert GENERAL APPEARANCE: cooperative, comfortable and disheveled ORIENTATION/CONSCIOUSNESS: Yes oriented to place HENMT: COMMON NORMALS: normocephalic, head/scalp atraumatic, hearing grossly normal bilaterally and moist oral mucous membranes HEAD & SCALP: normocephalic and atraumatic TEETH & GINGIVA: Yes poor dentition Eye: COMMON NORMALS: PERRL, EOMs intact bilaterally and conjunctivae normal CONJUNCTIVA: Yes conjunctivae normal PUPIL: Yes PERRL Neck/C-Spine: COMMON NORMALS: full ROM GENERAL: Yes normal visual inspection and Yes trachea midline Resp: COMMON NORMALS: normal respiratory effort, no retractions, no use of accessory muscles and clear to auscultation bilaterally EFFORT & INSPECTION: Yes able to speak in complete sentences, Yes symmetric chest movement and No tachypneic AUSCULTATION: clear to auscultation bilaterally Cardio: COMMON NORMALS: regular rate, regular rhythm, S1 normal heart sound, S2 normal heart sound and no murmurs RATE: regular rate RHYTHM: regular rhythm HEART SOUNDS: S1 normal and S2 normal GI: COMMON NORMALS: normal to inspection, nondistended, normoactive bowel sounds, soft to palpation and non-tender PALPATION: Yes soft Extremity: COMMON NORMALS: normal to inspection, full ROM and no clubbing, cyanosis or edema; negative for no pedal edema Neuro: COMMON NORMALS: oriented x3, moves all extremities, no focal motor deficits and no sensory deficits noted SENSORIUM/ORIENTATION: Yes alert and Yes oriented to place Psych: COMMON NORMALS: mental status grossly normal, thought process normal, cooperative, affect normal and speech normal SPEECH: Yes normal speech THOUGHT PROCESS: normal thought process Skin: COMMON NORMALS: no rashes or lesions noted, no jaundice, no petechiae and no mottling GENERAL SKIN EXAM: no rashes or lesions noted Urinary Catheter Management^: Denise: Cath Placed During This Visit: yes Urethral Indwelling: Yes Reason for Continuing Indwelling Catheter: Accurate Measurement of Urinary Output in Critically Ill Patients Urinary Catheter Date of Insertion: 05/21/19 Urinary Catheter Time of Insertion: 02:30 Data : 05/22/19 03:40 05/22/19 03:40 Micro: Microbiology 05/21/19 06:15 Blood Culture - Preliminary Blood NEGATIVE TO DATE 05/21/19 06:05 Blood Culture - Preliminary Blood NEGATIVE TO DATE A&P Assessment and plan (1) Altered mental status: -unclear etiology at this time -noted elevated inflammatory markers but no clear infectious source as UA, imaging all negative -d/c Ceftriaxone -remains hypertensive -neurochecks -fall/aspiration precautions -UDS, EtOH screen negative -noted renal impairment but unlikely to be contributing to this level of disorientation -noted seizure-like activity that responded to Ativan -EEG can be done as outpatient; will have him f/u with Neurology as well -continue seizure precautions -continue Keppra -regular diet as tolerated -may need to consider MRI, lumbar puncture if continued altered mental status with no clear cause. Has returned to baseline mental status -noted to have bottle of hydrocodone in truck when pulled over by police Status: Acute Qualifiers: Altered mental status type: unspecified Qualified Code(s): R41.82 - Altered mental status, unspecified Code(s): R41.82 - Altered mental status, unspecified (2) Hypertensive urgency: -off Nicardipine drip -continue to monitor vitals closely Status: Acute Code(s): I16.0 - Hypertensive urgency (3) Combined systolic and diastolic congestive heart failure: -has known hx of chronic combined systolic and diastolic CHF; no acute exacerbation currently -Echo (05/2018): EF=35% -stress testing in 05/2018 showing scarring with mild urmila-infarct ischemia in RCA territory Status: Acute Qualifiers: Heart failure chronicity: chronic Qualified Code(s): I50.42 - Chronic combined systolic (congestive) and diastolic (congestive) heart failure Code(s): I50.40 - Unspecified combined systolic (congestive) and diastolic (congestive) heart failure (4) Multilevel degenerative disc disease: -has known hx of multilevel DJD, s/p spinal stimulator -hold opiates, sedating meds due to altered mental status -fall precautions -imaging reviewed, no acute findings Status: Acute Code(s): M53.9 - Dorsopathy, unspecified (5) CKD (chronic kidney disease), stage III: -known hx of CKD stage 3; baseline Cr is around 2 now with superimposed DOROTEO -avoid nephrotoxins, renally dose meds -continue to monitor renal function Status: Acute Code(s): N18.3 - Chronic kidney disease, stage 3 (moderate) Additional A&P Information -hx of CAD s/p CABG x 3 -HTN -Hyperlipidemia; noted lipid panel -NIDDM type II; A1c-7.6. Accuchecks, ISS -GERD -need med rec confirmed -DVT ppx with Lovenox -Dispo: home -Code status: FULL code Attestations Medical Necessity Statement*: Patient requires hospitalization for continued management of altered mental status, pending PT/OT evaluations for disposition. Time Spent in Patient Care: Greater than 35 minutes (>than 50% of time spent in counselling and/or direct pt care on unit). Coding Level of Care Code Acute Lead Java Developer Architect for Joelg Fwd Exam Problem Focused Diagnoses Altered mental status R41.82 Altered mental status type: unspecified Hypertensive urgency I16.0 Combined systolic and diastolic congestive heart failure I50.42 Heart failure chronicity: chronic Multilevel degenerative disc disease M53.9 CKD (chronic kidney disease), stage III N18.3
[2019-05-22] MEDS: levETIRAcetam 500 mg Tablet PO ×2 (09:06→16:50)
[2019-05-22] MEDS: sodium chloride 0.9% 1,000 ML 75 ML IV (09:06)
[2019-05-22 10:58] LABS: Glucose Point of Care 219 mg/dL (70-110)
--- NOTE | 2019-05-22 11:59 | PC.CHAP ---
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 health outreach worker visit [] Patient/Family/Request visit [] Outpatient visit [] Follow-up visit [] Physician referral [] Code/Alert [x] Routine visit [] Staff referral [] Actively dying [] Patient sleeping [] Family support [] [] Out of room [] Palliative care [] [] Receiving care in room [] Pre-surgical visit [] Trauma [] Long length of stay [] ICU visit [] Other: Relational/Emotional Strength [x] Patient feels connected with others/family/visitors/staff [] Distress [] Loneliness/isolation [] Abandonment Spirituality of Patient [x] Person of Ghislaine [x] Attends Jainism of their [place] [x] Believes in Prayer [x] Reads Bible or Anabaptism materials [] There are Spiritual issues to be addressed Trouble Locator Test Desk Interventions [x] Prayer [x] Active listening [x] Non-anxious presence [x] Spiritual/emotional support [] Crisis/trauma care [x] Spiritual counseling [] Bereavement support [] Provided bereavement packet [] Provided Bible/devotional materials [] Provided toy/stuffed animal, coloring book to patient or family member [] Provided Communion [] Anointing/[place] [] Salvation [] Completed spiritual assessment [] Other: Impact on Illness or Injury [] Angry [] Fearful [] Anxious [] Often cries [] Exhaustion [] Unable to work [] Unable to attend taoism [] Unable to walk/stand [] Unable to read [] Unable to drive [] Unable to eat/drink [] Unable to sleep [] Unable to be with family [] Patient intubated [x] Other: N/A Summary Patient is a faithful believer. Time spent with patient 8 minutes
[2019-05-22] MEDS: FUROsemide 10 mg/mL SDV 4mL 40 MG IVP (13:42)
[2019-05-22] MEDS: ipratropium-albuterol 3 mL Neb INHALATION ×2 (14:03→21:54)
[2019-05-22 17:00] LABS: Glucose Point of Care 246 mg/dL (70-110)
[2019-05-22 21:26] LABS: Glucose Point of Care 208 mg/dL (70-110)
[2019-05-23] VITALS (7 sets, daily range): BP systolic 156–190; BP diastolic 68–82; PULSE 73–82; RESP 16–22; TEMP 36.5–37; O2SAT 93–96
[2019-05-23 04:27] LABS: Basophils % 0.6 %; Eosinophils # 0.2 10^3/uL (0.0-0.8); Eosinophils % 2.9 %; Hematocrit 34.1 % (42.0-52.0); Hemoglobin 11.3 g/dL (11.7-16.6); Lymphocytes # 1.1 10^3/uL (0.8-4.8); Lymphocytes % 16.4 %; Mean Corpuscular HGB Conc 33.1 g/dL (30.0-36.0); Mean Corpuscular Hemoglobin 30.3 pg (28.0-34.0); Mean Corpuscular Volume 91.4 fL (80-94); Mean Platelet Volume 11.3 fL (7.4-10.4); Monocytes # 0.6 10^3/uL (0.2-0.9); Monocytes % 7.9 %; Neutrophils % 71.8 %; Nucleated Red Blood Cells % 0 %; Platelet Count 175 10^3/cmm (130-400); Red Blood Count 3.73 10^6/uL (4.1-5.3)
[2019-05-23 04:56] LABS: Alanine Aminotransferase 8 U/L (0-41); Albumin Level 2.9 g/dL (3.5-5.2); Alkaline Phosphatase 74 IU/L (40-130); Anion Gap 16.2 (5-19); Aspartate Amino Transferase 13 U/L (0-40); Blood Urea Nitrogen 19 mg/dL (8-23); Calcium 8.7 mg/dL (8.5-10.5); Carbon Dioxide 24 mmol/L (22-29); Chloride 105 mmol/L (98-107); Globulin 2.7 g/dL (1.3-4.6); Glomerular Filtration Rate 19.3 mL/min (90-130); Glucose 223 mg/dL (65-115); Magnesium 1.8 mg/dL (1.7-2.3); Phosphorus 2.8 mg/dL (2.5-4.5); Potassium 3.2 mmol/L (3.5-5.1); Sodium 142 mmol/L (136-145); Total Bilirubin 0.2 mg/dL (0.15-1.2); Total Protein 5.6 g/dL (6.6-8.7)
[2019-05-23] MEDS: enoxaparin 30 mg/0.3 mL Syringe SUBCUT (05:50)
[2019-05-23 06:25] LABS: Glucose Point of Care 179 mg/dL (70-110)
[2019-05-23] MEDS: levETIRAcetam 500 mg Tablet PO (08:22)
[2019-05-23] MEDS: amlodipine 10 mg Tablet PO (08:22)
[2019-05-23] MEDS: ipratropium-albuterol 3 mL Neb INHALATION (08:41)
--- NOTE | 2019-05-23 10:44 | PM.DCS ---
Discharge Providers Date of Admission: 05/21/19 01:09 Date of Discharge: Date of Discharge: May 23, 2019 Attending Provider at Admission: Hira Ruiz MD Attending Provider at Discharge: Alison Pina MD Primary Care Provider: Sarah Tamayo MD Diagnoses at Discharge Discharge Diagnosis (1) Altered mental status: Status: Acute Problem details: -unclear etiology at this time -noted elevated inflammatory markers but no clear infectious source as UA, imaging all negative -d/c Ceftriaxone -remains hypertensive -neurochecks -fall/aspiration precautions -UDS, EtOH screen negative -noted renal impairment but unlikely to be contributing to this level of disorientation -noted seizure-like activity that responded to Ativan -EEG can be done as outpatient; will have him f/u with Neurology as well -continue seizure precautions -continue Keppra -regular diet as tolerated -has returned to baseline mental status -noted to have bottle of hydrocodone in truck when pulled over by police Qualifiers: Altered mental status type: unspecified Qualified Code(s): R41.82 - Altered mental status, unspecified (2) Hypertensive urgency: Status: Acute Problem details: -off Nicardipine drip -on Amlodipine, add hydralazine and low dose BB -continue to monitor vitals closely (3) Combined systolic and diastolic congestive heart failure: Status: Acute Problem details: -has known hx of chronic combined systolic and diastolic CHF; no acute exacerbation currently -Echo (05/2018): EF=35% -stress testing in 05/2018 showing scarring with mild urmila-infarct ischemia in RCA territory Qualifiers: Heart failure chronicity: chronic Qualified Code(s): I50.42 - Chronic combined systolic (congestive) and diastolic (congestive) heart failure (4) Multilevel degenerative disc disease: Status: Acute Problem details: -has known hx of multilevel DJD, s/p spinal stimulator -hold opiates, sedating meds due to altered mental status -fall precautions -imaging reviewed, no acute findings (5) CKD (chronic kidney disease), stage III: Status: Acute Problem details: -known hx of CKD stage 3; baseline Cr is around 2 now with superimposed DOROTEO -avoid nephrotoxins, renally dose meds -continue to monitor renal function Other Information Additional DC diagnoses/information: -hx of CAD s/p CABG x 3 -HTN -Hyperlipidemia; noted lipid panel -NIDDM type II; A1c-7.6. Accuchecks, ISS -GERD Reason for Visit Reason for Visit: Reason For Visit: AMS, HYPERTENSION Hospital Course Hospital Course: Patient was initially admitted to ICU for close monitoring given noted seizure-like activity in the ER and significant altered mental status on presentation. He was treated with empiric Keppra which we will continue on discharge as currently unable to completely rule out seizure-like activity. It is worth noting that he has not had any further seizure-like activity since what was described in the ER. He also presented with hypertensive urgency and required nicardipine drip which has since been weaned off. His mental status has since returned to baseline and once he was weaned off the nicardipine drip he was moved to the floor for continued care. He has been evaluated by physical therapy and occupational therapy and cleared for discharge home. He will have an EEG done as an outpatient with appropriate neurology follow-up. Due to significant altered mental status on presentation he did have a Denise catheter placed in the ER. This has been removed prior to discharge. Please note that we discussed alternative disposition including SNF placement which patient declined. It is still unclear what precipitated his altered mental status though he has returned to his baseline cognitively and would like to go home. Discharge Summary: -Patient to follow-up with his primary care physician within 1 week -Patient scheduled for an outpatient EEG on 05/26 at 10 AM -Patient instructed to seek medical attention immediately should symptoms return Physical Exam Const: COMMON NORMALS: no apparent distress, oriented x3 and alert GENERAL APPEARANCE: cooperative, comfortable and disheveled ORIENTATION/CONSCIOUSNESS: Yes oriented to place HENMT: COMMON NORMALS: normocephalic, head/scalp atraumatic, hearing grossly normal bilaterally and moist oral mucous membranes HEAD & SCALP: normocephalic and atraumatic TEETH & GINGIVA: Yes poor dentition Eye: COMMON NORMALS: PERRL, EOMs intact bilaterally and conjunctivae normal CONJUNCTIVA: Yes conjunctivae normal PUPIL: Yes PERRL Neck/C-Spine: COMMON NORMALS: full ROM GENERAL: Yes normal visual inspection and Yes trachea midline Resp: COMMON NORMALS: normal respiratory effort, no retractions, no use of accessory muscles and clear to auscultation bilaterally EFFORT & INSPECTION: Yes able to speak in complete sentences, Yes symmetric chest movement and No tachypneic AUSCULTATION: clear to auscultation bilaterally Cardio: COMMON NORMALS: regular rate, regular rhythm, S1 normal heart sound, S2 normal heart sound and no murmurs RATE: regular rate RHYTHM: regular rhythm HEART SOUNDS: S1 normal and S2 normal GI: COMMON NORMALS: normal to inspection, nondistended, normoactive bowel sounds, soft to palpation and non-tender PALPATION: Yes soft Extremity: COMMON NORMALS: normal to inspection, full ROM and no clubbing, cyanosis or edema; negative for no pedal edema Neuro: COMMON NORMALS: oriented x3, moves all extremities, no focal motor deficits and no sensory deficits noted SENSORIUM/ORIENTATION: Yes alert and Yes oriented to place Psych: COMMON NORMALS: mental status grossly normal, thought process normal, cooperative, affect normal and speech normal SPEECH: Yes normal speech THOUGHT PROCESS: normal thought process Skin: COMMON NORMALS: no rashes or lesions noted, no jaundice, no petechiae and no mottling GENERAL SKIN EXAM: no rashes or lesions noted Urinary Catheter Management^: Denise: Cath Placed During This Visit: yes Urethral Indwelling: Yes Reason for Continuing Indwelling Catheter: Accurate Measurement of Urinary Output in Critically Ill Patients Urinary Catheter Date of Insertion: 05/21/19 Urinary Catheter Time of Insertion: 02:30 Discharge Data Data Completed and Pending: Completed Studies During Hospitalization Category Date Time Status CT abdomen pelvis wo con [id number] Rout ine Cat Scan 05/21/19 02:[address] head wo con* [id number] Urgent Cat Scan 05/20/19 22:[address] lumbar spine w o con* [id number] Routi ne Cat Scan 05/21/19 02:[address] thoracic spin wo con* [id number] Stat Cat Scan 05/21/19 02:44 Completed XR chest 1V shar ble [id number] Urgent Exams 05/20/19 22:50 Completed Pending at discharge Category Date Time Status Blood Culture Sta t Lab 05/21/19 06:05 Results Complete Blood Co unt w/Auto AM LABS Lab 05/24/19 04:00 Ordered Urine Culture Sta t Lab 05/21/19 03:11 Results Labs from last 24 hours 05/23/19 05/23/19 05/23/19 06:12 02:30 02:30 WBC 7.0 RBC 3.73 L Hgb 11.3 L Hct 34.1 L MCV 91.4 MCH 30.3 MCHC 33.1 RDW 13.0 Plt Count 175 MPV 11.3 H Neut % (Auto) 71.8 Lymph % (Auto) 16.4 [place] % (Auto) 7.9 Eos % (Auto) 2.9 Baso % (Auto) 0.6 Neut # (Auto) 5.0 Lymph # (Auto) 1.1 [place] # (Auto) 0.6 Eos # (Auto) 0.2 Baso # (Auto) 0.0 Nucleated RBC % (a uto) 0 Nucleated RBCs # 0.0 Sodium 142 Potassium 3.2 L Chloride 105 Carbon Dioxide 24 Anion Gap 16.2 BUN 19 Creatinine 3.2 H GFR Calculation 19.3 L Glucose 223 H POC Glucose 179 Calcium 8.7 Phosphorus 2.8 Magnesium 1.8 Total Bilirubin 0.2 AST 13 ALT 8 Alkaline Phosphata se 74 Total Protein 5.6 L Albumin 2.9 L Globulin 2.7 05/22/19 05/22/19 05/22/19 21:23 16:45 10:47 WBC RBC Hgb Hct MCV MCH MCHC RDW Plt Count MPV Neut % (Auto) Lymph % (Auto) [place] % (Auto) Eos % (Auto) Baso % (Auto) Neut # (Auto) Lymph # (Auto) [place] # (Auto) Eos # (Auto) Baso # (Auto) Nucleated RBC % (a uto) Nucleated RBCs # Sodium Potassium Chloride Carbon Dioxide Anion Gap BUN Creatinine GFR Calculation Glucose POC Glucose 208 246 219 Calcium Phosphorus Magnesium Total Bilirubin AST ALT Alkaline Phosphata se Total Protein Albumin Globulin Vitals: Last Vital Signs Temp 98.6 F 05/23/19 07:20 Pulse 77 05/23/19 08:47 Resp 17 05/23/19 08:44 BP 182/80 05/23/19 07:20 Pulse Ox 95 05/23/19 08:44 Discharge Plan Discharge Patient Disposition: Home, Self-Care Condition: Stable Prescriptions: New levetiracetam 500 mg Tablet 500 mg PO BID 30 Days Qty: 60 RF: 0 amlodipine 10 mg Tablet 10 mg PO DAILY 30 Days Qty: 30 RF: 0 Continued furosemide 40 mg Tablet 40 mg PO DAILY RF: 0 hydralazine 10 mg Tablet 10 mg PO TID RF: 0 hydrocodone-acetaminophen 7.5-325 mg Tablet 1 tab PO BID PRN (Reason: Pain) RF: 0 nitroglycerin 0.4 mg Tablet, Sublingual 0.4 mg SUBLINGUAL Q5M MDD 3 PRN (Reason: Chest Pain) RF: 0 omeprazole 40 mg Capsule,Delayed Release(Dr/Ec) 40 mg PO DAILY RF: 0 tramadol 50 mg Tablet 50 mg PO BID PRN (Reason: Pain) RF: 0 zonisamide 100 mg Capsule 100 mg PO DAILY RF: 0 Discharge Orders: Discharge Order (Routine); Ordered 05/23/19 Ordered By: Alison Pina Other Ambulatory Orders: EEG electroencephalogram (Routine) Timeframe: 1 Week Facility: [facility] - Location: Neurology Ordered By: Alison Pina Referrals: Sarah Tamayo MD [Primary Care Provider] - 05/29/19 2:30 pm (Patient has an outpatient EEG ordered to evaluate for seizure disorder APPOINTMENT WITH HIGINIO GUZMAN NP) Higinio Guzman NP [Referring] - 05/29/19 2:30 pm Discharge Diet: Diabetic Discharge Activity: Resume usual activity Activity Restrictions/Additional Instructions: APPOINTMENT FOR TEST E E G SCHEDULED AT DR JARRELL OFFICE [phone] ON SundayMAY 26 AT 10:00 Discharge Attestations Time Spent in Discharge Care*: greater than 30 min Specific Discharge Activities: Specific discharge activities: educating patient, discussing with pcp/other providers, discussing with patient case manager/social workers/dc planners, documenting/other paperwork and evaluating patient/reviewing data Status at Discharge: Cognitive status at discharge: cognitively intact, Behavioral status at discharge: cooperative, Functional status at discharge: uses cane/walker Overall status at discharge: patient is back to baseline Quality Metrics Clinical Quality Measures During this hospital stay, did patient experience: None Coding Level of Care Code Acute [employer] Executive [employer] for Joelg Fwd Exam Problem Focused Diagnoses Altered mental status R41.82 Altered mental status type: unspecified Hypertensive urgency I16.0 Combined systolic and diastolic congestive heart failure I50.42 Heart failure chronicity: chronic Multilevel degenerative disc disease M53.9 CKD (chronic kidney disease), stage III N18.3
[2019-05-23 10:50] LABS: Glucose Point of Care 234 mg/dL (70-110)
[2019-05-23] MEDS: hyDRALAzine 20 mg/mL INJ 1 mL 10 MG IVP (11:00)
--- NOTE | 2019-05-23 11:07 | PC.NURSE ---
dc'd hernández as ordered. waiting for pt to void.
--- NOTE | 2019-05-23 12:51 | PC.CHAP ---
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 consumer marketing analyst visit [] Patient/Family/Request visit [] Outpatient visit [] Follow-up visit [] Physician referral [] Code/Alert [x] Routine visit [] Staff referral [] Actively dying [] Patient sleeping [] Family support [] [] Out of room [] Palliative care [] [] Receiving care in room [] Pre-surgical visit [] Trauma [] Long length of stay [] ICU visit [] Other: Relational/Emotional Strength [x] Patient feels connected with others/family/visitors/staff [] Distress [] Loneliness/isolation [] Abandonment Spirituality of Patient [] Person of Ghislaine [] Attends Congregational of their Ghislaine [x] Believes in Prayer [] Reads Bible or Samaritan materials [] There are Spiritual issues to be addressed Winder Contort Operator Interventions [x] Prayer [x] Active listening [x] Non-anxious presence [] Spiritual/emotional support [] Crisis/trauma care [] Spiritual counseling [] Bereavement support [] Provided bereavement packet [] Provided Bible/devotional materials [] Provided toy/stuffed animal, coloring book to patient or family member [] Provided Communion [] Anointing/Mars [] Salvation [] Completed spiritual assessment [] Other: Impact on Illness or Injury [] Angry [] Fearful [x] Anxious [] Often cries [] Exhaustion [] Unable to work [] Unable to attend mormon [] Unable to walk/stand [] Unable to read [] Unable to drive [] Unable to eat/drink [] Unable to sleep [] Unable to be with family [] Patient intubated [x] 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 Law enforcement stopped him and had him admitted to hospital because they thought he was having a seizure or something . Pt does not want to be in the hospital. Daughter arriving from [place] soon. Winder Contort Operator attempted to calm him down and ease his tension. Pt stated he was thinking of selling 3 properties and moving to [place] to be near daughter and granddaughters. Winder Contort Operator suggested he think about plans to make decision and how to carry it out and be ready to discuss this matter with his daughter when she arrives. suggested that being in hospital would give pt time to think this idea through without outside distractions. Pt stated it sounded like a good idea and maybe that's why he was in the hospital - to make life changes decisions. Pt calmed down considerably. Chaplain Charlene Sarmiento Time spent with patient 18 minutes
--- NOTE | 2019-05-23 14:15 | PC.NURSE ---
pt's brother upset about pt being discharged and doesn't want him to go back home to his current living situation. i explained to the brother that the pt is completely compentent and oriented x 4 to make his own decisions and that he is refusing SNF or HH and that pt wants to go home. I explained to the brother that I can not hold the pt against his will. Dr Pina agrees to discharge pt.
== END 2019-05-23 14:35 | disposition home or self-care (01) | DRG 305 ==
LOC: ER 05-21 01:29 → ICU 05-21 02:26 → MEDSURG 05-22 07:30
PROVIDERS: Admitting Provider Family Medicine; Emergency Provider Emergency Medicine; Family Provider Internal Medicine; PCP Internal Medicine; Visit Provider Family Medicine
DX: I16.0 Hypertensive urgency (principal); I50.42 Chronic combined systolic (congestive) and diastolic (congestive) heart failure; I13.0 Hypertensive heart and chronic kidney disease with heart failure and stage 1 through stage 4 chronic kidney disease, or unspecified chronic kidney disease; G40.409 Other generalized epilepsy and epileptic syndromes, not intractable, without status epilepticus; M48.00 Spinal stenosis, site unspecified; N18.3 Chronic kidney disease, stage 3 (moderate); E11.22 Type 2 diabetes mellitus with diabetic chronic kidney disease; E78.5 Hyperlipidemia, unspecified; K21.9 Gastro-esophageal reflux disease without esophagitis; I25.10 Atherosclerotic heart disease of native coronary artery without angina pectoris; Z95.1 Presence of aortocoronary bypass graft; Z79.82 Long term (current) use of aspirin; Z79.899 Other long term (current) drug therapy
CPT/HCPCS: 12345; 36415; 36416; 51702; 70450; 71045; 72128; 72131; 74176; 80053; 80061; 80307; 81001; 82962; 83036; 83735; 84100; 84145; 84443; 85025; 85610; 85651; 86140; 87040; 87086; 93005; 94640; 96372; 96375; 97161; 97165; 99283; J0360; J0696; J1650; J1815; J1940; J1953; J2060; J3490; J7030; J7050

== ENCOUNTER → 2019-05-26 10:07 | Outpatient (BNVA) | payer MEDICARE, SELFPAY | PROVIDERS: Family Provider Internal Medicine; PCP Internal Medicine; Visit Provider Specialist | DX: R41.0 Disorientation, unspecified (principal); G40.909 Epilepsy, unspecified, not intractable, without status epilepticus | CPT/HCPCS: 95816 ==

== ENCOUNTER 2019-06-02 16:16 | Emergency (ER) | payer MEDICARE, SELFPAY | END 2019-06-02 17:03 | disposition left against medical advice (07) | LOC: ER 06-24 13:26 | PROVIDERS: Emergency Provider Family Medicine; Family Provider Internal Medicine | DX: Z53.21 Procedure and treatment not carried out due to patient leaving prior to being seen by health care provider (principal) | CPT/HCPCS: 99281 ==

== ENCOUNTER 2019-06-02 16:24 | Inpatient (IN) | payer MEDICARE, SELFPAY ==
[2019-06-02 16:25] VITALS: BP 160/81; PULSE 84; RESP 20; TEMP 36.1; O2SAT 97; BMI 39.6
--- NOTE | 2019-06-02 16:33 | ED_ITS ---
Entered by Rosemary Jones, acting as scribe for Telma Gardner MD, MSM HPI - Fall General: Chief Complaint: Fall Stated Complaint: Fall Time Seen by Provider: 06/02/19 16:33 Source: patient and RN notes reviewed Mode of arrival: EMS Limitations: no limitations History of Present Illness: HPI Narrative: 68 yo male presents to ED following a laying on the floor for hours. The patient states he laid on the floor for 8 hours and couldn't get up. He said this all began around 0100 this morning. He said he had a real bad case of the runs until about 0600 this morning, having stayed on the toilet for that length of time. He said he was on the toilet long enough that his legs were real wobbly when he stood up so he decided to lay down on the rubber mat in front of the tub. He then stood and decided to go the back bathroom (he said he does not know why he decided to do that), intending on going to bed afterwards. He said he never made it back to bed. He was still on the bathroom floor when the paramedics came. He denies falling, stating he just laid down on the floor. His last BM was this morning. He said he has back pain from laying on the floor; he denies other pain at this time. complaint: other (lowered himself to the bathroom floor) Onset (ago): minute(s) (1) Fall from: other (lowered himself to the bathroom floor from a standing position) Fall witnessed: no (no fall) Place fall occurred: home (lowered himself to the bathroom floor at home) Loss of consciousness: Unsure Prolonged down time: yes and hour(s) (patient reports approximately 10) Symptoms prior to fall: other (diarrhea and weakness before lowering himself to the bathroom floor) Context: other (lowered himself to the bathroom floor) Location of injury: other (no injury - back pain from lying on the bathroom floor for 10 hours) Severity: mild Quality: dull Associated symptoms-after fall: Reports chest pain and other (no fall - pain following lying on the bathroom floor for 10 hours); Denies abdominal pain, headache(s) or neck pain Review of Systems General: Reports: 10 or more systems reviewed and unremarkable except in HPI and below Const: Denies: fever, chills or body aches Eyes: Reports: blind spots; Denies: change in vision or blurry vision ENMT: Denies: throat pain, enlarged tonsils, painful swallowing, hoarseness, mouth pain or swelling of lips/tongue Card: Reports: chest pain; Denies: palpitations, irregular heart rhythm, edema or swelling of feet/ankles Resp: Denies: shortness of breath, productive cough or non-productive cough GI: Reports: diarrhea; Denies: abdominal pain, nausea or vomiting : Denies: flank pain, painful urination, urinary frequency, urinary urgency or urinary hesitancy Musc: Denies: neck pain, back pain or extremity swelling Skin/Breast: Denies: rash, itching or redness Neuro: Denies: headache, numbness in extremities or weakness in extremities Endo: Denies: excessive urination, excessive thirst or tired all the time PFSH ED PFSH: Medical History (Updated 06/02/19 @ 23:19 by Telma Gardner MD, [facility] CHF (congestive heart failure) CKD (chronic kidney disease), stage III -known hx of CKD stage 3; baseline Cr is around 2 now with superimposed DOROTEO -avoid nephrotoxins, renally dose meds -continue to monitor renal function Combined systolic and diastolic congestive heart failure -has known hx of chronic combined systolic and diastolic CHF; no acute exacerbation currently -Echo (05/2018): EF=35% -stress testing in 05/2018 showing scarring with mild urmila-infarct ischemia in RCA territory Diabetes mellitus Hypertension Multilevel degenerative disc disease -has known hx of multilevel DJD, s/p spinal stimulator -hold opiates, sedating meds due to altered mental status -fall precautions -imaging reviewed, no acute findings Peripheral neuropathy Post-ictal state Rhabdomyolysis Spinal cord stimulator status Spinal stenosis Type 2 diabetes mellitus Surgical History S/P CABG x 3 S/P insertion of spinal cord stimulator Social History Smoking and tobacco status: never smoked Physical Exam Const: COMMON NORMALS: no apparent distress, average body habitus, oriented x3, no limitations, healthy appearing, alert and well nourished HENMT: COMMON NORMALS: normocephalic, head/scalp atraumatic and moist oral mucous membranes HEAD & SCALP: normocephalic and atraumatic Eye: COMMON NORMALS: PERRL, EOMs intact bilaterally, conjunctivae normal and no scleral icterus CONJUNCTIVA: Yes conjunctivae normal PUPIL: Yes PERRL Neck/C-Spine: COMMON NORMALS: full ROM, supple, no meningeal signs, no JVD and no carotid bruits Chest: COMMONS NORMALS: inspection of chest normal and palpation of chest normal Resp: COMMON NORMALS: normal respiratory effort, no retractions, no use of accessory muscles, clear to auscultation bilaterally and percussion normal AUSCULTATION: clear to auscultation bilaterally PERCUSSION: percussion normal Cardio: COMMON NORMALS: no JVD, regular rate, regular rhythm, S1 normal heart sound, S2 normal heart sound, no gallops, no clicks, no murmurs, no rub and peripheral pulses 2+ throughout RATE: regular rate RHYTHM: regular rhythm HEART SOUNDS: S1 normal and S2 normal PERIPHERAL PULSES: pulses 2+ throughout GI: COMMON NORMALS: normal to inspection, nondistended, normoactive bowel sounds, soft to palpation, non-tender, no hepatosplenomegaly, no masses and no bruits PALPATION: Yes soft and Yes no hepatosplenomegaly : COMMON NORMALS: Yes no CVA tenderness BLADDER/KIDNEY EXAM: Yes no CVA tenderness Back/Pelvis: COMMON NORMALS: no CVA tenderness Extremity: COMMON NORMALS: normal to inspection, full ROM, normal capillary refill, no calf tenderness and no pedal edema Neuro: COMMON NORMALS: oriented x3 SENSORIUM/ORIENTATION: Yes alert MENINGEAL SIGNS: Yes no meningeal signs Skin: COMMON NORMALS: no rashes or lesions noted, no wounds, skin turgor normal, no jaundice, no petechiae and no mottling GENERAL SKIN EXAM: no rashes or lesions noted and turgor normal Course Consultations: Consultation #1: Dr. Son, hospitalist. He kindly accepted the patient to his service. Vital Signs: Vital signs: Vital Signs Temperature 98.1 F 06/02/19 23:02 Pulse Rate 87 06/02/19 23:02 Respiratory Rate 22 H 06/02/19 23:02 Blood Pressure 157/78 06/02/19 23:02 Pulse Oximetry 94 06/02/19 23:02 MDM - Fall MDM Narrative: Medical decision making narrative: 68-year-old male who had diarrhea and was weak after sitting on the toilet for a long time. Because of the weakness he laid down on the floor for several hours possibly up to 10 hours. Eventually got some help and was brought to the emergency department by EMS. He denies any falls. CPK was significantly elevated and he also had a deterioration of his chronic kidney disease with an acute on chronic kidney injury. Because of the rhabdomyolysis and the worsening renal function he is admitted to the hospital for evaluation and management. Medical Records: Attestation: I reviewed the patient's medical records. Lab Data: Attestation: I reviewed the patient's lab results. Labs: Lab Results 06/02/19 06/02/19 Range/Units 17:08 17:08 WBC 13.1 H (4.0-10.0) 10^3/ uL RBC 4.12 (4.1-5.3) 10^6/u L Hgb 12.4 (11.7-16.6) g/dL Hct 37.0 L (42.0-52.0) % MCV 89.8 (80-94) fL MCH 30.1 (28.0-34.0) pg MCHC 33.5 (30.0-36.0) g/dL RDW 13.0 (12.1-15.1) % Plt Count 215 (130-400) 10^3/c mm MPV 10.5 H (7.4-10.4) fL Neut % (Auto) 83.7 % Lymph % (Auto) 6.3 % [place] % (Auto) 9.3 % Eos % (Auto) 0.1 % Baso % (Auto) 0.2 % Neut # (Auto) 10.9 H (1.8-7.7) 10^3/u L Lymph # (Auto) 0.8 (0.8-4.8) 10^3/u L [place] # (Auto) 1.2 H (0.2-0.9) 10^3/u L Eos # (Auto) 0.0 (0.0-0.8) 10^3/u L Baso # (Auto) 0.0 (0.0-0.1) 10^3/u L Nucleated RBC % (a uto) 0 % Nucleated RBCs # 0.0 /100WBC Sodium 141 (136-145) mmol/L Potassium 3.5 (3.5-5.1) mmol/L Chloride 101 (98-107) mmol/L Carbon Dioxide 18 L (22-29) mmol/L Anion Gap 25.5 H (5-19) BUN 48 H (8-23) mg/dL Creatinine 4.4 H (0.7-1.2) mg/dL GFR Calculation 13.4 L (90-130) mL/min Glucose 187 H (65-115) mg/dL Calcium 8.5 (8.5-10.5) mg/dL Total Bilirubin 0.3 (0.15-1.2) mg/dL AST 52 H (0-40) U/L ALT 23 (0-41) U/L Alkaline Phosphata se 85 (40-130) IU/L Creatine Kinase 2752 H* (39-308) U/L Total Protein 6.7 (6.6-8.7) g/dL Albumin 3.4 L (3.5-5.2) g/dL Globulin 3.3 (1.3-4.6) g/dL Lipase 14 (13-60) U/L Discharge Plan Discharge Patient Disposition: Admitted As Inpatient Admit Provider: Rob Calderon Clinical Impression: Rhabdomyolysis, Acute kidney injury superimposed on chronic kidney disease Condition: Stable Interventions: ED Discharge Assessment Last Done: 06/02/19 21:06 Discharge Date/Time: 06/02/19 21:09 Coding Level of Care Code ED V Belt Mold Assembler And Curer for Chg Fwd Exam Comprehensive The documentation recorded by the Robert calabrese Valerie R, accurately reflects the service I personally performed and the decisions made by , Telma Gardner MD, [facility] Jun 02, 2019 16:24
[2019-06-02 17:15] LABS: Basophils % 0.2 %; Eosinophils % 0.1 %; Hemoglobin 12.4 g/dL (11.7-16.6); Lymphocytes # 0.8 10^3/uL (0.8-4.8); Lymphocytes % 6.3 %; Mean Corpuscular HGB Conc 33.5 g/dL (30.0-36.0); Mean Corpuscular Hemoglobin 30.1 pg (28.0-34.0); Mean Corpuscular Volume 89.8 fL (80-94); Mean Platelet Volume 10.5 fL (7.4-10.4); Monocytes # 1.2 10^3/uL (0.2-0.9); Monocytes % 9.3 %; Neutrophils # 10.9 10^3/uL (1.8-7.7); Neutrophils % 83.7 %; Nucleated Red Blood Cells % 0 %; Platelet Count 215 10^3/cmm (130-400); Red Blood Count 4.12 10^6/uL (4.1-5.3); White Blood Count 13.1 10^3/uL (4.0-10.0)
[2019-06-02 17:30] LABS: Alanine Aminotransferase 23 U/L (0-41); Albumin Level 3.4 g/dL (3.5-5.2); Alkaline Phosphatase 85 IU/L (40-130); Anion Gap 25.5 (5-19); Aspartate Amino Transferase 52 U/L (0-40); Blood Urea Nitrogen 48 mg/dL (8-23); Calcium 8.5 mg/dL (8.5-10.5); Carbon Dioxide 18 mmol/L (22-29); Chloride 101 mmol/L (98-107); Globulin 3.3 g/dL (1.3-4.6); Glomerular Filtration Rate 13.4 mL/min (90-130); Glucose 187 mg/dL (65-115); Lipase 14 U/L (13-60); Potassium 3.5 mmol/L (3.5-5.1); Sodium 141 mmol/L (136-145); Total Bilirubin 0.3 mg/dL (0.15-1.2); Total Protein 6.7 g/dL (6.6-8.7)
[2019-06-02 17:50] LABS: Creatine Phosphokinase 2752 U/L (39-308)
[2019-06-02] MEDS: sodium chloride 0.9% 1,000 ML 100 ML IV (18:12)
[2019-06-02 19:11] LABS: Add Urine Microscopic? YES; Bilirubin Urine Neg (NEGATIVE); Blood Urine 3+ (Negative); Glucose Urine UA Trace (Normal); Ketones Urine Negative (Negative); Leukocyte Esterase Urine Negative (Negative); Nitrate Urine Negative (Negative); Protein Urine 3+ (Negative); Urine Appearance Cloudy (CLEAR); Urine Color Yellow (Yellow); Urobilinogen Urine Norm (Negative); pH Urine 5 (5-7)
[2019-06-02 19:16] LABS: Add Urine Culture? Yes; Bacteria Urine 3+; Fine Granular Casts Urine 0-5 /lpf; Mucus Urine TRACE; RBC Urine 15-25 /hpf (0-2); WBC Urine 0-4 /hpf (0-5)
[2019-06-02] MEDS: hyDRALAzine 20 mg/mL INJ 1 mL 10 MG IVP (20:12)
--- NOTE | 2019-06-02 20:13 | PM.HP ---
Providers/Chief Complaint Admitting Physician: Guadalupe Fernandez MD Primary Care Provider: Saarh Tamayo MD Chief Complaint: Rhabdomplysis;acute on ckd History of Present Illness Moy Fernandez is a 68 year old male with a past medical history of combined systolic and diastolic heart failure, last ejection fraction 35%, history of CABG x3, hypertension, hyperlipidemia, type 2 diabetes mellitus, hyperlipidemia, chronic kidney disease stage III-IV, history of spinal stimulator, who was recently admitted between 05/21/19 to 05/23/19 after p/w an episode of AMS while driving and found to have witnessed tonic-clonic seizures in the ED. He was also noted to be in hypertensive urgency at the time and required ICU admission for Cardene drip. Ct head at the time showed atrophy and old lacunar disease without acute intracranial findings. Incidental note was made for fungal maxillary sinusitis. Lumbar and thoracic spine CTs were performed due to tenderness on palpation, these were unremarkable for any acute findings. Routine EEG was performed as an outpatient on 05/26 and was unremarkable. Sepsis work up was negative. Overall cause of new seizures remained unclear. He was discharged on Keppra 500mg BID and amlodipine 10mg qd. However he states he was unaware of new medications and has not been taking Keppra. SNF placement was recommended, however he declined and went home with [facility]. He returns to the ED today after being found to be lying on the floor by his home health aide when she came to check on him. Per patient, he went to the bathroom last night, felt incredibly weak and sat on the commode for 5 hrs. He was incontinent and had urine and feces on him. he then tried to go into the shower, but felt tired again and decided to lay on the floor overnight. He was found in such state by his home health aide. Upon arrival to the ER, he was alert, awake and oriented, was able to urinate by himself, however exhibited inappropriate verbal behavior towards female staff. I do not know if this is his baseline. At time of my assessment, he is drowsy, though does wake up upon repeated calling and tapping shoulders. recalls events as above to me. Correctly states name and age, but then falls asleep. Does not specifically follow my commands to move extremities, however was previously noted to be moving all extremities freely. Denies fever. Denies chest pain or dyspnea, though noted to be wheezing on my exam. No CXR in system yet. Labs notable for mild leukocytosis at 13, Creatine kinase >2700, Doroteo with cr 4.4 (was 3.2 on discharge), UA with 3+ occult blood, negative nitrite. Review of Systems General: Reports: 10 or more systems reviewed and unremarkable except in HPI and below Const: Denies: fever, chills or body aches Eyes: Denies: change in vision, blurry vision or photophobia ENMT: Reports: hoarseness; Denies: throat pain, enlarged tonsils, painful swallowing or nasal congestion Card: Denies: chest pain, palpitations, irregular heart rhythm, edema, swelling of feet/ankles, lightheadedness, pre-syncope, shortness of breath on exertion or shortness of breath when lying down Resp: Denies: shortness of breath, productive cough, non-productive cough, wheezing, stridor, pain on inspiration, change in phlegm color, coughing up blood or chest congestion GI: Denies: abdominal pain, nausea, vomiting, vomiting blood, coffee grounds in vomit, difficulty swallowing, heartburn/indigestion, diarrhea, constipation, cramping, change in stool character, blood in stool or black tarry stool : Denies: flank pain, painful urination, urinary frequency, urinary urgency, urinary hesitancy or blood in urine Musc: Denies: neck pain, back pain, extremity pain, joint swelling, joint warmth or deformity Neuro: Reports: weakness in extremities and behavioral changes; Denies: headache, numbness in extremities, changes in sensation, difficulty walking, frequent falls, dizziness, vertigo, slurred speech or seizure-like activity Psych: Denies: anxiety, depression, suicidal ideation or homicidal ideation Endo: Denies: excessive urination, excessive thirst, tired all the time, cold intolerance or hot flashes Stanley/Lymph: Denies: easy bruising or easy bleeding Medications/Allergies Home Medications Medication Instructions Recorded Confirmed Last Taken Type aspirin 325 mg PO DAILY 06/02/19 06/02/19 Unknown History melatonin 5 mg PO BEDTIME 06/02/19 06/02/19 Unknown History multivitamin [Multiple Vitamins] 1 tab PO DAILY 06/02/19 06/02/19 Unknown History promethazine-DM 5 ml PO Q8H PRN 06/02/19 06/02/19 Unknown History Allergies Allergy/AdvReac Type Severity Reaction Status Date / Time No Known Allergies Allergy Verified 05/23/19 10:46 PFSH Acute PFSH: Medical History (Updated 06/02/19 @ 23:19 by Telma Gardner [place], [facility] [place] CHF (congestive heart failure) CKD (chronic kidney disease), stage III -known hx of CKD stage 3; baseline Cr is around 2 now with superimposed DOROTEO -avoid nephrotoxins, renally dose meds -continue to monitor renal function Combined systolic and diastolic congestive heart failure -has known hx of chronic combined systolic and diastolic CHF; no acute exacerbation currently -Echo (05/2018): EF=35% -stress testing in 05/2018 showing scarring with mild urmila-infarct ischemia in RCA territory Diabetes mellitus Hypertension Multilevel degenerative disc disease -has known hx of multilevel DJD, s/p spinal stimulator -hold opiates, sedating meds due to altered mental status -fall precautions -imaging reviewed, no acute findings Peripheral neuropathy Post-ictal state Rhabdomyolysis Spinal cord stimulator status Spinal stenosis Type 2 diabetes mellitus Surgical History S/P CABG x 3 S/P insertion of spinal cord stimulator Social History Smoking and tobacco status: never smoked Vitals/I&O/Wt Last Vital Signs Temp 96.9 F L 06/02/19 16:25 Pulse 84 06/02/19 16:25 Resp 20 H 06/02/19 16:25 BP 160/81 06/02/19 16:25 Pulse Ox 97 06/02/19 16:25 Weight last 48 hrs Weight 111.584 kg Physical Exam Narrative: EXAM NARRATIVE: GEN: Drowsy, however wakes up to calling name and tapping on shoulder. oriented x 2 CVS: S1S2 N RS: reduced breath sounds over left lung base, poor inspiratory effort, scattered crackles and wheezing diffusely. 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: no focal neuro deficits Ext: B/L LE edema+ Data : 06/03/19 03:29 06/02/19 17:08 A&P Assessment and plan (1) Post-ictal state: Status: Acute Code(s): R56.9 - Unspecified convulsions (2) Hypertension: Status: Acute Code(s): I10 - Essential (primary) hypertension (3) Diabetes mellitus: Status: Acute Code(s): E11.9 - Type 2 diabetes mellitus without complications (4) Seizure: Status: Acute Code(s): R56.9 - Unspecified convulsions (5) Delirium: Status: Acute Code(s): R41.0 - Disorientation, unspecified (6) CHF (congestive heart failure): Status: Acute Code(s): I50.9 - Heart failure, unspecified (7) Rhabdomyolysis: Status: Acute Code(s): M62.82 - Rhabdomyolysis Additional A&P Information 1. H/O fall at home in unclear circumstances Given recent h/o new onset seizures, not taking recently startedKeppra, currently drowsy state, elevated CPK cannot rule out post ictal state. - Keppra 1g iv loading now followed by 500mg q12h - CT head and CT C spine to r/o CVA/bleed or fractures - Seizure precautions, aspiration precautions, NPO for now pending swallow screen - MRI may be considered dependent on results of CT head - Check EKG, troponin baseline. CPK more likely elevated related to rhabdomyolysis 2. Hypertension last BP 190/87mmhg. Missed all antihypertensives today, on last admission needed cardene drip. For now, hydralazine 10mg iv now followed by TID (home dose) Amlodipine to resume once awake, alert and passes swallow screen 3. combined systolic and diastolic congestive heart failure - Patient had a stress test in 06/05/2018 which showed small sized perfusion abnormality of the entire inferior, apical septal, and apical esparza, likely represent old myocardial infarct versus scarring with mild urmila-infarct ischemia in the right coronary artery territory. Mild global hypokinesia with moderate hypokinesia of the entire inferior wall. -Echocardiogram in 06/05/2018 showed Left ventricular ejection fraction of 35%, diastolic CHF -Currently has bilateral lower extremity edema, 1+ - on chest auscultation B/L scattered wheezing and reduced air entry LLL, poor inspiratory effort, cannot appreciate breath sounds very well - CXR stat. Check BNP - Holding diuretics for now in view of DOROTEO, will reassess based on abpve results - Currently on IVF @ 100cc/hr, reduce rate to 50cc/hr - Sp02 89-92% on RA - Denies h/o COPD or sleep apnea 4. Type 2 DM I dont see any OHAs on home med list though patient states he is on medications Last A1c ~7. Mild ISS for now 5. DOROTEO on CKD MAy be worsened in view of rhabdomyolysis Gentle IVF in view of CHF as above 6. Rhabdomyolysis : likely 2/2 seziures vs being on floor for prolonged time. No recent to compare DVT ppx: Heparin 5000 q12h Full code Dispo: student services vice president consult to assess living situation Further orders to follow depending on results of preliminary testing Attestations Medical Necessity Statement*: Anticipate > 2midnight stay for w/up of possible post ictal state, rhabdomyolysis Coding Level of Care Code Acute Molecular Physicist for g Fwd Diagnoses Post-ictal state R56.9 Hypertension I10 Diabetes mellitus E11.9 Seizure R56.9 Delirium R41.0 CHF (congestive heart failure) I50.9 Rhabdomyolysis M62.82
--- NOTE | 2019-06-02 20:14 | CTR_ITS ---
PROCEDURE INFORMATION: Exam: CT Cervical Spine Without Contrast Exam date and time: 06/02/2019 8:54 PM Age: 68 years old Clinical indication: Injury or trauma; Initial encounter; Blunt trauma; Patient HX: PT was found on bathroom floor - ? fall - confusion; Additional info: H/o fall at home, R/O fractures TECHNIQUE: Imaging protocol: Computed tomography images of the cervical spine without contrast. Total DLP: 983.59 mGy-cm Radiation optimization: All CT scans at this facility use at least one of these dose optimization techniques: automated exposure control; mA and/or kV adjustment per patient size (includes targeted exams where dose is matched to clinical indication); or iterative reconstruction. COMPARISON: No relevant prior studies available. FINDINGS: [id number] degenerative changes are observed in the cervical spine. Mild canal stenosis is present at C3-C4 and C4-C5. No cervical spine fracture. CT/CT cervical spin wo con* [id number] IMPRESSION: No cervical spine fracture. Radiation Dose CTDIVOL = (mGy): DLP = 983.59 (mGy-cm)
--- NOTE | 2019-06-02 20:14 | ECG_ITS ---
Measurements Intervals [place] Rate: 92 P: -63 RI: 128 QRS: 18 QRSD: 120 T: 83 QT: 371 QTc: 460 Sinus RHYTHM WITH OCCASIONAL VENTRICULAR PREMATURE COMPLEXES LEFT ATRIAL ENLARGEMENT [-0.15mV P WAVE IN V1/V2] POSSIBLE LEFT VENTRICULAR HYPERTROPHY [VOLTAGE CRITERIA PLUS LAE OR QRS WIDENING] INFERIOR MYOCARDIAL INFARCTION , PROBABLY OLD [40+ ms Q WAVE AND/OR ST/T AB ABNORMALITY IN II/aVF] Compared to ECG 05/21/2019 02:36:02 Ventricular premature complex(es) now present Sinus arrhythmia no longer present Atrial premature complex(es) no longer present Myocardial infarct finding still present Electronically Signed On 06-04-2019 17:29:40 HAND BANDER by Lashay Knapp M.D. [email or web address]
--- NOTE | 2019-06-02 20:14 | XR_ITS ---
WS: [id number] XR chest 1V portable [id number] REASON FOR EXAM: CHF FINDINGS: Cardiomegaly is again noted. There is evidence of previous coronary bypass changes. The lung aguilera appear to be adequately aerated with no pneumonia, pleural effusion, pulmonary edema, or mass effect. The hilum and apices are normal. A scoliotic curve convex to the right is seen. XR/XR chest 1V portable [id number] IMPRESSION: Cardiomegaly No acute pulmonary infiltrates.
--- NOTE | 2019-06-02 20:14 | CTR_ITS ---
PROCEDURE INFORMATION: Exam: CT Head Without Contrast Exam date and time: 06/02/2019 8:54 PM Age: 68 years old Clinical indication: Altered mental status/memory loss; Confusion or disorientation; Patient HX: PT was found on bathroom floor - ? fall - confusion; Additional info: Fall, R/O CVA TECHNIQUE: Imaging protocol: Computed tomography of the head without contrast. Total DLP: 920.5 mGy-cm Radiation optimization: All CT scans at this facility use at least one of these dose optimization techniques: automated exposure control; mA and/or kV adjustment per patient size (includes targeted exams where dose is matched to clinical indication); or iterative reconstruction. COMPARISON: CT head wo con* [id number] 05/20/2019 11:37 PM FINDINGS: Brain: A small chronic infarction is present in the right thalamus. Mild atrophy and mild white matter chronic microvascular changes are noted. No hemorrhage or CT evidence of acute infarction is seen. Ventricles: Normal. No ventriculomegaly. Bones/joints: Unremarkable. No acute fracture. Sinuses: Chronic right maxillary sinusitis is appreciated. Mastoid air cells: Visualized mastoid air cells are well aerated. Soft tissues: Unremarkable. CT/CT head wo con* [id number] IMPRESSION: No acute intracranial abnormality. Chronic right maxillary sinusitis. Radiation Dose CTDIVOL = (mGy): DLP = 920.5 (mGy-cm)
[2019-06-02 20:58] LABS: Troponin T (5th) Once 77.11
[2019-06-02 21:06] VITALS: BP 163/84; PULSE 78; RESP 18; O2SAT 97
[2019-06-02 21:36] VITALS: BP 159/74; PULSE 90; RESP 18; O2SAT 95
[2019-06-02 21:40] LABS: Amphetamines Screen Urine Negative (Negative); Barbiturates Screen Urine Negative (Negative); Benzodiazepines Screen Urine Negative (Negative); Cocaine Screen Urine Negative (Negative); Opiate Screen Urine Negative (Negative); PCP Screen Urine Negative (Negative); THC Screen Urine Positive (Negative)
--- NOTE | 2019-06-02 21:55 | PC.NURSE ---
Patient arrived to floor via stretcher. Transferred patient to bed x4 assist. Patient c/o feeling weak. Denies pain. AAOx3. Requesting food. Patient stated, I was found in the floor this morning by my home health person. I had been there for about 13 hours. Skin appears intact. Performed bedside swallow study. Patient able to drink from straw very well with no evidence of choking or aspiration noted. Informed Dr Fernandez that patient is on the floor and that he is requesting food. Dr to see patient. Received okay from to give patient a sandwich.
[2019-06-02 22:13] LABS: NT Pro B Type Natriuretic Pept 5704 pg/mL (0-125)
[2019-06-02 23:02] VITALS: BP 157/78; PULSE 87; RESP 22; TEMP 36.7; O2SAT 94
[2019-06-02 23:14] VITALS: O2SAT 96
[2019-06-03] VITALS (7 sets, daily range): BP systolic 119–164; BP diastolic 56–68; PULSE 68–86; RESP 19–25; TEMP 36.6–37; O2SAT 90–95
[2019-06-03 00:15] LABS: Troponin T (5th) Once 85.31
[2019-06-03] MEDS: sodium chloride 0.9% 1,000 ML 50 ML IV ×2 (02:35→15:39)
[2019-06-03] MEDS: ondansetron 2 mg/ML SDV 2 mL 4 MG IVP (02:39)
[2019-06-03 04:03] LABS: Basophils # 0.1 10^3/uL (0.0-0.1); Basophils % 0.5 %; Eosinophils # 0.1 10^3/uL (0.0-0.8); Eosinophils % 0.9 %; Hemoglobin 12.8 g/dL (11.7-16.6); Lymphocytes # 1.1 10^3/uL (0.8-4.8); Lymphocytes % 9.3 %; Mean Corpuscular HGB Conc 33.7 g/dL (30.0-36.0); Mean Corpuscular Hemoglobin 31.5 pg (28.0-34.0); Mean Corpuscular Volume 93.6 fL (80-94); Mean Platelet Volume 11.1 fL (7.4-10.4); Monocytes % 8.1 %; Neutrophils # 9.9 10^3/uL (1.8-7.7); Neutrophils % 80.7 %; Nucleated Red Blood Cells % 0 %; Platelet Count 232 10^3/cmm (130-400); Red Blood Count 4.06 10^6/uL (4.1-5.3); Red Cell Distribution Width 13.1 % (12.1-15.1); White Blood Count 12.3 10^3/uL (4.0-10.0)
[2019-06-03 06:12] LABS: Alanine Aminotransferase 20 U/L (0-41); Albumin Level 2.8 g/dL (3.5-5.2); Alkaline Phosphatase 72 IU/L (40-130); Anion Gap 21.3 (5-19); Aspartate Amino Transferase 43 U/L (0-40); Blood Urea Nitrogen 52 mg/dL (8-23); Calcium 8.2 mg/dL (8.5-10.5); Carbon Dioxide 19 mmol/L (22-29); Chloride 99 mmol/L (98-107); Globulin 3.2 g/dL (1.3-4.6); Glomerular Filtration Rate 13.7 mL/min (90-130); Glucose 179 mg/dL (65-115); Magnesium 1.7 mg/dL (1.7-2.3); Potassium 3.3 mmol/L (3.5-5.1); Sodium 136 mmol/L (136-145); Total Bilirubin 0.3 mg/dL (0.15-1.2)
[2019-06-03 06:14] LABS: Glucose Point of Care 171 mg/dL (70-110)
[2019-06-03 06:20] LABS: Creatine Phosphokinase 1616 U/L (39-308)
[2019-06-03] MEDS: heparin 5,000 unit/mL INJ 1 mL 5000 UNIT SUBCUT ×2 (08:04→21:14)
[2019-06-03] MEDS: hyDRALAzine 20 mg/mL INJ 1 mL 10 MG IVP ×3 (08:07→21:12)
--- NOTE | 2019-06-03 09:00 | PM.PN ---
Subjective Subjective: Interval history: Patient known to me from previous admission. Labs reviewed including CPK that is slowly trending down. On gentle IV fluid hydration. Was loaded with Keppra, currently on 500 mg twice daily. EEG negative. CT head, CT of the C-spine are both unremarkable. Patient seen and examined earlier this morning, quite sleepy though does arouse to verbal and tactile stimulation. No complaints currently. Agreeable to SNF. Medications: Reviewed: Yes Medication Review Details: Current Medications Generic Name Dose Route Start Last Admin Trade Name Freq PRN Reason Stop Dose Admin Heparin Sodium (Be ef Lung) 5,000 unit 06/02/19 20:15 06/03/19 08:04 Heparin SUBCUT 5,000 unit Q12H YANELI Administration Hydralazine HCl 10 mg 06/02/19 21:00 06/03/19 08:07 Apresoline IVP 10 mg TID YANELI Administration Sodium Chloride 1,000 mls @ 100 m ls/hr 06/02/19 18:03 06/03/19 02:41 Sodium Chloride 0.9% IV Infused .Q10H YANELI Infusion Levetiracetam 500 mg/ Sodium 105 mls @ 420 mls /hr 06/03/19 08:10 06/03/19 08:20 Chloride IV 420 mls/hr Q12H YANELI Administration Sodium Chloride 1,000 mls @ 50 ml s/hr 06/02/19 20:14 06/03/19 02:35 Sodium Chloride 0.9% IV 50 mls/hr .Q20H YANELI Administration Insulin Aspart 0 unit 06/02/19 21:00 06/03/19 08:03 Novolog SUBCUT 2 unit WM&BEDTIME YANELI Administration Protocol Ondansetron HCl 4 mg 06/02/19 20:14 06/03/19 02:39 Zofran IVP 4 mg Q8H PRN Administration vomiting, or N/V if npo Vitals/I&O/Wt Last Vital Signs Temp 98.4 F 06/03/19 08:00 Pulse 81 06/03/19 08:00 Resp 24 H 06/03/19 08:00 BP 147/66 06/03/19 08:00 Pulse Ox 90 06/03/19 08:00 06/02/19 06/03/19 06/03/19 22:59 06:59 14:59 Intake Total 360 / 360 500 / 860 Output Total 420 / 420 Balance 360 / 360 80 / 440 Weight last 48 hrs Weight 111.584 kg Physical Exam Const: COMMON NORMALS: no apparent distress GENERAL APPEARANCE: cooperative, comfortable and lethargic (arouses to verbal and tactile stimulation but does not maintain wakefulness) ORIENTATION/CONSCIOUSNESS: Yes lethargic (arouses to verbal and tactile stimulation but does not maintain wakefulness) HENMT: COMMON NORMALS: normocephalic, head/scalp atraumatic, hearing grossly normal bilaterally and moist oral mucous membranes HEAD & SCALP: normocephalic and atraumatic Eye: COMMON NORMALS: PERRL, EOMs intact bilaterally and conjunctivae normal CONJUNCTIVA: Yes conjunctivae normal PUPIL: Yes PERRL Neck/C-Spine: COMMON NORMALS: full ROM GENERAL: Yes normal visual inspection and Yes trachea midline Resp: COMMON NORMALS: normal respiratory effort, no retractions, no use of accessory muscles and clear to auscultation bilaterally EFFORT & INSPECTION: Yes able to speak in complete sentences, Yes symmetric chest movement and No tachypneic AUSCULTATION: clear to auscultation bilaterally Cardio: COMMON NORMALS: regular rate, regular rhythm, S1 normal heart sound, S2 normal heart sound and no murmurs RATE: regular rate RHYTHM: regular rhythm HEART SOUNDS: S1 normal and S2 normal GI: COMMON NORMALS: normal to inspection, nondistended, normoactive bowel sounds, soft to palpation and non-tender INSPECTION: Yes central obesity PALPATION: Yes soft Extremity: COMMON NORMALS: normal to inspection, full ROM and no clubbing, cyanosis or edema; negative for no pedal edema Neuro: COMMON NORMALS: moves all extremities, no focal motor deficits and no sensory deficits noted SENSORIUM/ORIENTATION: Yes lethargic (arouses to verbal and tactile stimulation but does not maintain wakefulness) Psych: COMMON NORMALS: mental status grossly normal, thought process normal, cooperative, affect normal and speech normal SPEECH: Yes normal speech THOUGHT PROCESS: normal thought process Skin: COMMON NORMALS: no rashes or lesions noted, no jaundice, no petechiae and no mottling GENERAL SKIN EXAM: no rashes or lesions noted Data : 06/03/19 03:29 06/03/19 05:50 A&P Assessment and plan (1) Rhabdomyolysis: -Noted to have rhabdomyolysis secondary to postictal state and prolonged immobilization on the floor -CPK slowly trending down (2752->1616), continue to trend -continue cautious IV fluid hydration, encourage oral hydration -fall precautions Status: Acute Qualifiers: Rhabdomyolysis type: non-traumatic Qualified Code(s): M62.82 - Rhabdomyolysis Code(s): M62.82 - Rhabdomyolysis (2) Acute kidney injury superimposed on chronic kidney disease: -has DOROTEO on CKD stage 3 -baseline Cr is around 2 -on gentle IVF hydration -avoid nephrotoxins, renally dose meds -continue to monitor renal function Status: Acute Code(s): N17.9 - Acute kidney failure, unspecified; N18.9 - Chronic kidney disease, unspecified (3) Seizure: -Has been noted to have tonic-clonic seizure witnessed in ED during most recent admission. Presentation suspicious for postictal state. Patient had not been taking Keppra which was prescribed on discharge. -Loaded with Keppra in ED, continue at 500 mg twice daily -Seizure/fall/aspiration precautions -Neurochecks, reorient as needed; unclear if change in mental status is due to postictal state versus delirium -Recently had an EEG which was unremarkable -CT head, CT C-spine unremarkable -Chest x-ray shows cardiomegaly, no other acute findings -Noted leukocytosis which is likely reactive -continue to monitor vital signs, currently stable Status: Acute Code(s): R56.9 - Unspecified convulsions Additional A&P Information -hx of combined systolic and diastolic CHF; noted [id number]; Echo (05/2018): EF=35% -stress testing in 05/2018 showing scarring with mild urmila-infarct ischemia in RCA territory -hx of CAD s/p CABG x 3 -HTN; presented with hypertensive urgency during last admission that required treatment with nicardipine drip; resumed oral antihypertensives; titrate as needed for optimal BP control -Hyperlipidemia; noted lipid panel -NIDDM type II; A1c-7.6. Accuchecks, ISS -GERD -DVT ppx with heparin -passed bedside dysphagia screen; start on diabetic diet -Dispo: needs SNF given need for increased safety, supervision which is not available at home; came from home -Code status: FULL code Attestations Medical Necessity Statement*: Patient requires hospitalization for management of rhabdomyolysis, acute kidney injury, currently on gentle IV fluid hydration. Time Spent in Patient Care: Greater than 35 minutes (>than 50% of time spent in counselling and/or direct pt care on unit). Coding Level of Care Code Acute Administrative Support Manager for Chg Fwd Exam Comprehensive Diagnoses Rhabdomyolysis M62.82 Rhabdomyolysis type: non-traumatic Acute kidney injury superimposed on chronic kidney disease N17.9; N18.9 Seizure R56.9
[2019-06-03 11:21] LABS: Glucose Point of Care 137 mg/dL (70-110)
[2019-06-03 16:25] LABS: Glucose Point of Care 153 mg/dL (70-110)
[2019-06-03 20:22] LABS: Glucose Point of Care 154 mg/dL (70-110)
[2019-06-04 02:47] VITALS: BP 113/66; PULSE 78; RESP 22; TEMP 37.3; O2SAT 91
[2019-06-04] MEDS: sodium chloride 0.9% 1,000 ML 100 ML IV (03:56)
[2019-06-04 04:03] LABS: Basophils # 0.1 10^3/uL (0.0-0.1); Basophils % 0.6 %; Eosinophils # 0.2 10^3/uL (0.0-0.8); Eosinophils % 2.7 %; Hematocrit 31.4 % (42.0-52.0); Hemoglobin 10.5 g/dL (11.7-16.6); Lymphocytes # 1.1 10^3/uL (0.8-4.8); Lymphocytes % 12.6 %; Mean Corpuscular HGB Conc 33.4 g/dL (30.0-36.0); Mean Corpuscular Hemoglobin 30.2 pg (28.0-34.0); Mean Corpuscular Volume 90.2 fL (80-94); Monocytes # 0.8 10^3/uL (0.2-0.9); Monocytes % 8.7 %; Neutrophils # 6.8 10^3/uL (1.8-7.7); Neutrophils % 74.8 %; Nucleated Red Blood Cells % 0 %; Platelet Count 187 10^3/cmm (130-400); Red Blood Count 3.48 10^6/uL (4.1-5.3); Red Cell Distribution Width 12.9 % (12.1-15.1)
[2019-06-04 04:23] LABS: Anion Gap 17.1 (5-19); Blood Urea Nitrogen 49 mg/dL (8-23); Calcium 7.9 mg/dL (8.5-10.5); Carbon Dioxide 22 mmol/L (22-29); Chloride 103 mmol/L (98-107); Glomerular Filtration Rate 13.4 mL/min (90-130); Glucose 149 mg/dL (65-115); Osmolality Calculated 289 mOsm/kg (285-295); Potassium 3.1 mmol/L (3.5-5.1); Sodium 139 mmol/L (136-145)
[2019-06-04 04:27] LABS: Creatine Phosphokinase 732 U/L (39-308)
[2019-06-04 06:31] LABS: Glucose Point of Care 143 mg/dL (70-110)
[2019-06-04 07:40] VITALS: PULSE 82; RESP 24
[2019-06-04 07:46] VITALS: BP 156/65; PULSE 81; RESP 20; TEMP 37.1; O2SAT 90
--- NOTE | 2019-06-04 09:10 | P.PN_ITS ---
Subjective Subjective: Interval history: AM labs noted, CPK down to 732, stable renal function. Will replace K and d/c IVF. Had 350 mL urine output overnight. Will order renal US due to continued renal impairment and low urine output. Patient seen and examined, alert, no complaints currently. During bed change noted to be incontinent of urine. Medications: Reviewed: Yes Medication Review Details: Current Medications Generic Name Dose Route Start Last Admin Trade Name Freq PRN Reason Stop Dose Admin Heparin Sodium (Be ef Lung) 5,000 unit 06/02/19 20:15 06/03/19 21:14 Heparin SUBCUT 5,000 unit Q12H YANELI Administration Insulin Aspart 0 unit 06/02/19 21:00 06/03/19 21:14 Novolog SUBCUT 2 unit WM&BEDTIME YANELI Administration Protocol Ondansetron HCl 4 mg 06/02/19 20:14 06/03/19 02:39 Zofran IVP 4 mg Q8H PRN Administration vomiting, or N/V if npo Vitals/I&O/Wt Last Vital Signs Temp 98.8 F 06/04/19 07:46 Pulse 81 06/04/19 07:46 Resp 20 H 06/04/19 07:46 BP 156/65 06/04/19 07:46 Pulse Ox 90 06/04/19 07:46 06/03/19 06/04/19 06/04/19 22:59 06:59 14:59 Intake Total 1133.333 / 1478.333 120 / 120 Output Total 350 / 350 Balance 1133.333 / 1478.333 -350 / 1128.333 120 / 120 Weight last 48 hrs Weight 111.584 kg Physical Exam Const: COMMON NORMALS: no apparent distress and alert GENERAL APPEARANCE: cooperative and comfortable HENMT: COMMON NORMALS: normocephalic, head/scalp atraumatic, hearing grossly normal bilaterally and moist oral mucous membranes HEAD & SCALP: n ormocephalic and atraumatic Eye: COMMON NORMALS: PERRL, EOMs intact bilaterally and conjunctivae normal CONJUNCTIVA: Yes conjunctivae normal PUPIL: Yes PERRL Neck/C-Spine: COMMON NORMALS: full ROM GENERAL: Yes normal visual inspection and Yes trachea midline Resp: COMMON NORMALS: normal respiratory effort, no retractions, no use of accessory muscles and clear to auscultation bilaterally EFFORT & INSPECTION: Yes able to speak in complete sentences, Yes symmetric chest movement and No tachypneic AUSCULTATION: clear to auscultation bilaterally Cardio: COMMON NORMALS: regular rate, regular rhythm, S1 normal heart sound, S2 normal heart sound and no murmurs RATE: regular rate RHYTHM: regular rhythm HEART SOUNDS: S1 normal and S2 normal GI: COMMON NORMALS: normal to inspection, nondistended, normoactive bowel sounds, soft to palpation and non-tender INSPECTION: Yes central obesity PALPATION: Yes soft Extremity: COMMON NORMALS: normal to inspection, full ROM and no clubbing, cyanosis or edema; negative for no pedal edema Neuro: COMMON NORMALS: moves all extremities, no focal motor deficits and no sensory deficits noted SENSORIUM/ORIENTATION: Yes alert Psych: COMMON NORMALS: mental status grossly normal, thought process normal, cooperative, affect normal and speech normal SPEECH: Yes normal speech THOUGHT PROCESS: normal thought process Skin: COMMON NORMALS: no rashes or lesions noted, no jaundice, no petechiae and no mottling GENERAL SKIN EXAM: no rashes or lesions noted Data : 06/04/19 03:19 06/04/19 03:19 Micro: Microbiology 06/02/19 19:01 Urine Culture - Final Urine,Clean Catch A&P Assessment and plan (1) Rhabdomyolysis: -Noted to have rhabdomyolysis secondary to postictal state and prolonged immobilization on the floor -CPK slowly trending down (2752->1616->732), continue to trend -d/c IV fluid hydration, encourage oral hydration -fall precautions Status: Acute Qualifiers: Rhabdomyolysis type: non-traumatic Qualified Code(s): M62.82 - Rhabdomyolysis Code(s): M62.82 - Rhabdomyolysis (2) Acute kidney injury superimposed on chronic kidney disease: -has DOROTEO on CKD stage 3 -baseline Cr is around 2; has been as high as 2.9 in the past -d/c gentle IVF hydration as has been on this for almost 48 hrs with minimal improvement in his renal function; want to prevent fluid overload due to underlying CHF -avoid nephrotoxins, renally dose meds -continue to monitor renal function -renal US normal, done due to borderline urine output and continued renal impairment -may need to consider Nephrology consult if continued oliguria and renal impairment Status: Acute Code(s): N17.9 - Acute kidney failure, unspecified; N18.9 - Chronic kidney disease, unspecified (3) Seizure: -Has been noted to have tonic-clonic seizure witnessed in ED during most recent admission. Presentation suspicious for postictal state. Patient had not been taking Keppra which was prescribed on discharge. -Loaded with Keppra in ED, continue at 500 mg twice daily -Seizure/fall/aspiration precautions -Neurochecks, reorient as needed; unclear if change in mental status is due to postictal state versus delirium -Recently had an EEG which was unremarkable -CT head, CT C-spine unremarkable -Chest x-ray shows cardiomegaly, no other acute findings -Noted leukocytosis which is likely reactive; now resolved -continue to monitor vital signs, currently stable Status: Acute Code(s): R56.9 - Unspecified convulsions Additional A&P Information -hx of combined systolic and diastolic CHF; noted [id number]; Echo (05/2018): EF=35% -stress testing in 05/2018 showing scarring with mild urmila-infarct ischemia in RCA territory -hx of CAD s/p CABG x 3 -HTN; presented with hypertensive urgency during last admission that required treatment with nicardipine drip; resumed oral antihypertensives; titrate as needed for optimal BP control -Hyperlipidemia; noted lipid panel -NIDDM type II; A1c-7.6. Accuchecks, ISS -GERD -DVT ppx with heparin -passed bedside dysphagia screen; on diabetic diet -Dispo: needs SNF given need for increased safety, supervision which is not available at home; came from home -Code status: FULL code Attestations Medical Necessity Statement*: Patient requires hospitalization for continued management of acute renal impairment and oliguria, pending appropriate disposition. Time Spent in Patient Care: Greater than 35 minutes (>than 50% of time spent in counselling and/or direct pt care on unit) . 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
--- NOTE | 2019-06-04 09:19 | US_ITS ---
WS: [id number] Examination: Renal ureter bladder study by ultrasound. HISTORY: CKD FINDINGS: The right kidney measured 11.85 x 4.91 x 5.85 cm. Cortex measure 1.15 cm. No hydronephrosis or stones are seen. The left kidney measures 10.81 x 6.72 x 0.68 cm. The cortex measured 2.44 cm. No hydronephrosis no st ones. The aorta measured 1.42 cm The urinary bladder appeared to be normal with no filling defects or masses. Post voiding film shows Mild urinary retention probably normal. US/US renal BI with bladder Impression: Normal kidneys ureter and bladder.
[2019-06-04] MEDS: amlodipine 10 mg Tablet PO (09:29)
[2019-06-04] MEDS: heparin 5,000 unit/mL INJ 1 mL 5000 UNIT SUBCUT ×2 (09:30→21:18)
[2019-06-04 11:24] VITALS: BP 135/66; PULSE 77; RESP 26; TEMP 36.6; O2SAT 93
[2019-06-04 11:32] LABS: Glucose Point of Care 128 mg/dL (70-110)
--- NOTE | 2019-06-04 12:28 | PC.CHAP ---
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 cooling tower technician visit [] Patient/Family/Request visit [] Outpatient visit [] Follow-up visit [] Physician referral [] Code/Alert [x] Routine visit [] Staff referral [] Actively dying [x] Patient sleeping [] Family support [] [] Out of room [] Palliative care [] [] Receiving care in room [] Pre-surgical visit [] Trauma [] Long length of stay [] ICU visit [] Other: Relational/Emotional Strength [] Patient feels connected with others/family/visitors/staff [] Distress [] Loneliness/isolation [] Abandonment Spirituality of Patient [] Person of Ghislaine [] Attends Orthodox of their Ghislaine [] Believes in Prayer [] Reads Bible or Restorationist materials [] There are Spiritual issues to be addressed Division Operations Specialist Interventions [] Prayer [] Active listening [] Non-anxious presence [] Spiritual/emotional support [] Crisis/trauma care [] Spiritual counseling [] Bereavement support [] Provided bereavement packet [] Provided Bible/devotional materials [] Provided toy/stuffed animal, coloring book to patient or family member [] Provided Communion [] Anointing/Maud [] Salvation [x] Completed spiritual assessment [] Other: Impact on Illness or Injury [] Angry [] Fearful [] Anxious [] Often cries [] Exhaustion [] Unable to work [] Unable to attend orthodox [] Unable to walk/stand [] Unable to read [] Unable to drive [] Unable to eat/drink [] Unable to sleep [] Unable to be with family [] Patient intubated [] Other: Summary Time spent with patient
[2019-06-04 16:00] VITALS: BP 135/66; BP 141/67; PULSE 73; PULSE 77; RESP 25; RESP 26; TEMP 36.6; O2SAT 97
[2019-06-04] MEDS: hyDRALAzine 10 mg Tablet PO ×2 (16:08→21:19)
[2019-06-04 17:05] LABS: Glucose Point of Care 186 mg/dL (70-110)
[2019-06-04] MEDS: levETIRAcetam 500 mg Tablet PO (18:24)
[2019-06-04 20:49] LABS: Glucose Point of Care 162 mg/dL (70-110)
[2019-06-04 21:25] VITALS: BP 153/82; PULSE 71; RESP 24; TEMP 36.6; O2SAT 91
[2019-06-05] VITALS (9 sets, daily range): BP systolic 116–166; BP diastolic 55–82; PULSE 68–80; RESP 17–27; TEMP 36.6–36.8; O2SAT 92–98
[2019-06-05 04:53] LABS: Anion Gap 17.3 (5-19); Blood Urea Nitrogen 49 mg/dL (8-23); Calcium 7.7 mg/dL (8.5-10.5); Carbon Dioxide 22 mmol/L (22-29); Chloride 103 mmol/L (98-107); Glomerular Filtration Rate 14.5 mL/min (90-130); Glucose 144 mg/dL (65-115); Osmolality Calculated 289 mOsm/kg (285-295); Potassium 3.3 mmol/L (3.5-5.1); Sodium 139 mmol/L (136-145)
[2019-06-05 05:15] LABS: Creatine Phosphokinase 360 U/L (39-308)
[2019-06-05 06:44] LABS: Glucose Point of Care 136 mg/dL (70-110)
--- NOTE | 2019-06-05 08:19 | P.PN_ITS ---
Subjective Subjective: Interval history: No documentation of urine output overnight, slight improvement in creatinine. Sitting up in bed, seems to be in good spirits, very conversant, alert and oriented x 3. Tells me he would like to go home today as he is concerned about his 2 dogs, has no attentive caregiver for them. He is aware that he is weak and having difficulty getting around but due to difficulty with care for his dogs is not comfortable going to SNF. Case discussed with Dr. Whitten and will try very gentle IV fluid hydration. 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 Medications: Reviewed: Yes Medication Review Details: Active Medications Generic Name Dose Route Start Last Admin Trade Name Freq PRN Reason Stop Dose Admin Amlodipine Besylat e 10 mg 06/04/19 09:15 06/04/19 09:29 Norvasc PO 10 mg DAILY YANELI Administration Dextrose 25 ml 06/02/19 20:14 D50w IVP ONCE PRN hypoglycemia prot ocol Protocol Dextrose 50 ml 06/02/19 20:14 D50w IVP PRN PRN hypoglycemia prot ocol Protocol Glucagon 1 mg 06/02/19 20:14 Glucagen IM ONCE PRN Adult Acute Hypog lycemia Prot. Protocol Heparin Sodium (Be ef Lung) 5,000 unit 06/02/19 20:15 06/04/19 21:18 Heparin SUBCUT 5,000 unit Q12H YANELI Administration Hydralazine HCl 10 mg 06/04/19 15:00 06/04/19 21:19 Apresoline PO 10 mg TID YANELI Administration Dextrose 500 mls @ 100 mls /hr 06/02/19 20:14 D5w IV ONCE PRN Adult Acute Hypog lycemia Prot Protocol Insulin Aspart 0 unit 06/02/19 21:00 06/05/19 07:46 Novolog SUBCUT Not Given WM&BEDTIME YANELI Protocol Levetiracetam 500 mg 06/04/19 18:00 06/04/19 18:24 Keppra PO 500 mg BID YANELI Administration Morphine Sulfate 2 mg 06/02/19 20:14 Morphine IVP Q6H PRN SEVERE PAIN Naloxone HCl 0.1 mg 06/02/19 20:14 Narcan IVP Q2M PRN OPIATERV Ondansetron HCl 4 mg 06/02/19 20:14 06/03/19 02:39 Zofran IVP 4 mg Q8H PRN Administration vomiting, or N/V if npo Potassium Chloride 40 meq 06/04/19 09:15 06/04/19 09:29 Klor-Con 10 PO 40 meq DAILY YANELI Administration No Known Allergies Allergy (Verified 05/23/19 10:46) Vitals/I&O/Wt Last Vital Signs Temp 97.9 F 06/05/19 07:56 Pulse 80 06/05/19 07:56 Resp 23 H 06/05/19 07:56 BP 165/81 06/05/19 07:56 Pulse Ox 92 06/05/19 07:56 06/04/19 06/05/19 06/05/19 22:59 06:59 14:59 Intake Total 240 / 360 120 / 480 240 / 240 Output Total 400 / 400 Balance -160 / -40 120 / 80 240 / 240 Physical Exam Const: COMMON NORMALS: no apparent distress and alert GENERAL APPEARANCE: cooperative and comfortable HENMT: COMMON NORMALS: normocephalic, head/scalp atraumatic, hearing grossly normal bilaterally and moist oral mucous membranes HEAD & SCALP: normocephalic and atraumatic Eye: COMMON NORMALS: PERRL, EOMs intact bilaterally and conjunctivae normal CONJUNCTIVA: Yes conjunctivae normal PUPIL: Yes PERRL Neck/C-Spine: COMMON NORMALS: full ROM GENERAL: Yes normal visual inspection and Yes trachea midline Resp: COMMON NORMALS: normal respiratory effort, no retractions, no use of accessory muscles and clear to auscultation bilaterally EFFORT & INSPECTION: Yes able to speak in complete sentences, Yes symmetric chest movement and No tachypneic AUSCULTATION: clear to auscultation bilaterally Cardio: COMMON NORMALS: regular rate, regular rhythm, S1 normal heart sound, S2 normal heart sound and no murmurs RATE: regular rate RHYTHM: regular rhythm HEART SOUNDS: S1 normal and S2 normal GI: COMMON NORMALS: normal to inspection, nondistended, normoactive bowel sounds, soft to palpation and non-tender INSPECTION: Yes central obesity PALPATION: Yes soft Extremity: COMMON NORMALS: normal to inspection, full ROM and no clubbing, cyanosis or edema; negative for no pedal edema Neuro: COMMON NORMALS: moves all extremities, no focal motor deficits and no sensory deficits noted SENSORIUM/ORIENTATION: Yes alert Psych: COMMON NORMALS: mental status grossly normal, thought process normal, cooperative, affect normal and speech normal SPEECH: Yes normal speech THOUGHT PROCESS: normal thought process Skin: COMMON NORMALS: no rashes or lesions noted, no jaundice, no petechiae and no mottling GENERAL SKIN EXAM: no rashes or lesions noted Data : 06/04/19 03:19 06/05/19 04:10 Micro: Microbiology 06/02/19 19:01 Urine Culture - Final Urine,Clean Catch A&P Assessment and plan (1) Rhabdomyolysis: -Noted to have rhabdomyolysis secondary to postictal state and prolonged immobilization on the floor -CPK slowly trending down (2752--->360), continue to trend -d/c IV fluid hydration, encourage oral hydration -fall precautions Status: Resolved Qualifiers: Rhabdomyolysis type: non-traumatic Qualified Code(s): M62.82 - Rhabdomyolysis Code(s): M62.82 - Rhabdomyolysis (2) Acute kidney injury superimposed on chronic kidney disease: -has DOROTEO on CKD stage 3 -baseline Cr is around 2; has been as high as 2.9 in the past -d/c gentle IVF hydration as has been on this for almost 48 hrs with minimal improvement in his renal function; want to prevent fluid overload due to underlying CHF -avoid nephrotoxins, renally dose meds -continue to monitor renal function -renal US normal, done due to borderline urine output and continued renal impairment -Nephrology consult requested due to continued oliguria and renal impairment; consult appreciated, will try very gentle IV fluid hydration -Patient follows up with Dr. Garduno as an outpatient Status: Acute Code(s): N17.9 - Acute kidney failure, unspecified; N18.9 - Chronic kidney disease, unspecified (3) Seizure: -Has been noted to have tonic-clonic seizure witnessed in ED during most recent admission. Presentation suspicious for postictal state. Patient had not been taking Keppra which was prescribed on discharge. -Loaded with Keppra in ED, continue at 500 mg twice daily -Seizure/fall/aspiration precautions -Neurochecks, reorient as needed; unclear if change in mental status is due to postictal state versus delirium -Recently had an EEG which was unremarkable -CT head, CT C-spine unremarkable -Chest x-ray shows cardiomegaly, no other acute findings -Noted leukocytosis which is likely reactive; now resolved -continue to monitor vital signs, currently stable Status: Acute Code(s): R56.9 - Unspecified convulsions Additional A&P Information -hx of combined systolic and diastolic CHF; noted [id number]; Echo (05/2018): EF=35% -stress testing in 05/2018 showing scarring with mild urmila-infarct ischemia in RCA territory -hx of CAD s/p CABG x 3 -HTN; presented with hypertensive urgency during last admission that required treatment with nicardipine drip; resumed oral antihypertensives; titrate as needed for optimal BP control -Hyperlipidemia; noted lipid panel -NIDDM type II; A1c-7.6. Accuchecks, ISS -GERD -DVT ppx with heparin -passed bedside dysphagia screen; on diabetic diet -Dispo: needs SNF given need for increased safety, supervision which is not available at home; came from home and wants to return home. Is okay with home health services. -Code status: FULL code Attestations Medical Necessity Statement*: Patient requires hospitalization for continued management of acute renal impairment and oliguria, pending nephrology evaluation. Time Spent in Patient Care: Greater than 35 minutes (>than 50% of time spent in counselling and/or direct pt care on unit) . 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
--- NOTE | 2019-06-05 09:19 | PC.SOCIAL ---
Pg 2 IMM Explained to pt Pg 2 IMM. Pt verbally understands & signed. No questions voiced. Provided a copy to pt & left on pt's bedside table. Signed, dated, & timed, then placed in chart.
[2019-06-05] MEDS: heparin 5,000 unit/mL INJ 1 mL 5000 UNIT SUBCUT ×2 (09:29→22:17)
[2019-06-05] MEDS: amlodipine 10 mg Tablet PO (09:30)
[2019-06-05] MEDS: hyDRALAzine 10 mg Tablet PO ×3 (09:30→22:18)
[2019-06-05] MEDS: levETIRAcetam 500 mg Tablet PO ×2 (09:31→18:43)
[2019-06-05] MEDS: HYDROcodone-acetaminophen 5-325 mg Tablet 1 TAB PO (10:34)
[2019-06-05 11:27] LABS: Potassium, Radom Urine 17 mmol/L; Urine Creatinine 97 mg/dL (39-259); Urine Random Sodium 22 mmol/L
[2019-06-05 11:42] LABS: Glucose Point of Care 170 mg/dL (70-110)
[2019-06-05 11:55] LABS: Urine Random Chloride 14 mmol/L
[2019-06-05 12:21] LABS: Urea Nitrogen,Urine Random 451 mg/dL
--- NOTE | 2019-06-05 13:04 | P.CONIM_ITS ---
Providers/Reason For Consult Consulting Physican/Specialty*: Lola Whitten DO, telenephrology Reason for Consult*: DOROTEO/CKD Attending Physician: Alison Pina MD Primary Care Provider: Sarah Tamayo MD History of Present Illness History of Present Illness Moy Fernandez is a 68 year old male who presented after being found on floor at home. Reports being very weak and falling in bathroom. Recently discharged after admission for alteres mental status/seizure disorder. Discharge serum Cr 3.2 mg/dL. 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 States he is anxious for discharge Review of Systems Card: Reports: lightheadedness; Denies: chest pain or palpitations Resp: Denies: shortness of breath GI: Denies: abdominal pain or diarrhea : Reports: other (less urine output) Meds/Allergies Home Medications and Allergies Home Medications Medication Instructions Recorded Confirmed Type furosemide 40 mg PO DAILY 05/23/19 06/02/19 History hydralazine 10 mg PO TID 05/23/19 06/02/19 History hydrocodone-acetaminophen 1 tab PO BID PRN 05/23/19 06/02/19 History nitroglycerin 0.4 mg SUBLINGUAL Q5M PRN MDD 3 05/23/19 06/02/19 History omeprazole 40 mg PO DAILY 05/23/19 06/02/19 History tramadol 50 mg PO BID PRN 05/23/19 06/02/19 History aspirin 325 mg PO DAILY 06/02/19 06/02/19 History melatonin 5 mg PO BEDTIME 06/02/19 06/02/19 History multivitamin [Multiple Vitamins] 1 tab PO DAILY 06/02/19 06/02/19 History promethazine-DM 5 ml PO Q8H PRN 06/02/19 06/02/19 History Allergies Allergy/AdvReac Type Severity Reaction Status Date / Time No Known Allergies Allergy Verified 05/23/19 10:46 Current Medications Current Medications Generic Name Dose Route Start Last Admin Trade Name Freq PRN Reason Stop Dose Admin Hydrocodone Bitart/Acetaminophen 1 tab 06/05/19 10:10 06/05/19 10:34 Talmage 5-325 Mg PO 1 tab Q4H PRN Administration MODERATE PAIN Amlodipine Besylate 10 mg 06/04/19 09:15 06/05/19 09:30 Norvasc PO 10 mg DAILY YANELI Administration Heparin Sodium (Beef Lung) 5,000 unit 06/02/19 20:15 06/05/19 09:29 Heparin SUBCUT 5,000 unit Q12H YANELI Administration Hydralazine HCl 10 mg 06/04/19 15:00 06/05/19 09:30 Apresoline PO 10 mg TID YANELI Administration Insulin Aspart 0 unit 06/02/19 21:00 06/05/19 12:00 Novolog SUBCUT 2 unit WM&BEDTIME YANELI Administration Protocol Levetiracetam 500 mg 06/04/19 18:00 06/05/19 09:31 Keppra PO 500 mg BID YANELI Administration Ondansetron HCl 4 mg 06/02/19 20:14 06/03/19 02:39 Zofran IVP 4 mg Q8H PRN Administration vomiting, or N/V if npo Potassium Chloride 40 meq 06/04/19 09:15 06/05/19 09:30 Klor-Con 10 PO 40 meq DAILY YANELI Administration PFSH Acute PFSH: Medical History CHF (congestive heart failure) CKD (chronic kidney disease), stage III -known hx of CKD stage 3; baseline Cr is around 2 now with superimposed DOROTEO -avoid nephrotoxins, renally dose meds -continue to monitor renal function Combined systolic and diastolic congestive heart failure -has known hx of chronic combined systolic and diastolic CHF; no acute exacerbation currently -Echo (05/2018): EF=35% -stress testing in 05/2018 showing scarring with mild urmila-infarct ischemia in RCA territory Diabetes mellitus Hypertension Multilevel degenerative disc disease -has known hx of multilevel DJD, s/p spinal stimulator -hold opiates, sedating meds due to altered mental status -fall precautions -imaging reviewed, no acute findings Peripheral neuropathy Post-ictal state Rhabdomyolysis Spinal cord stimulator status Spinal stenosis Type 2 diabetes mellitus Surgical History S/P CABG x 3 S/P insertion of spinal cord stimulator Social History Smoking and tobacco status: never smoked Vitals/I&O/Wt Last Vital Signs Temp 97.9 F 06/05/19 12:00 Pulse 80 06/05/19 12:00 Resp 23 H 02/20/20 12:00 BP 165/81 06/05/19 12:00 Pulse Ox 92 06/05/19 12:00 06/04/19 06/05/19 06/05/19 22:59 06:59 14:59 Intake Total 240 / 360 120 / 480 480 / 480 Output Total 400 / 400 400 / 400 Balance -160 / -40 120 / 80 80 / 80 Physical Exam Const: COMMON NORMALS: no apparent distress GENERAL APPEARANCE: cooperative NUTRITIONAL APPEARANCE: obese HENMT: COMMON NORMALS: normocephalic HEAD & SCALP: normocephalic Eye: COMMON NORMALS: no scleral icterus Resp: COMMON NORMALS: normal respiratory effort and clear to auscultation bilaterally AUSCULTATION: clear to auscultation bilaterally Cardio: COMMON NORMALS: regular rate RATE: regular rate Extremity: OTHER: trace leg edema Data Micro: Micro: Microbiology 06/02/19 19:01 Urine Culture - Fi nal Urine,Clean Catch Other Data: Other data: Renal ultrasound unremarkable, CXR no pulmonary edema A&P Additional A&P Information Impression: 1. Acute kidney injury - due to rhabdomyolysis, improving, probable volume depletion. FeNa < 1% 2. Chronic kidney disease, baseline serum Cr about 3 mg/dL, 3+ albuminuria, hypoalbuminemia suggests possible nephrotic syndrome. Avoiding ACEi/ARB due to severity of renal impairment. 3. Hypertension - Blood pressure higher than goal 4. Hypokalemia - likely due to diuretic use prior to admission 5. Anemia - Hb dropped in last 24 hours Recommend: Continue to hold furosemide. Encourage oral hydration. Can gently hydrate IV overnight (1 liter NSS). Does not require continued hospitalization from renal standpoint. Need to arrange close outpatient follow-up with nephrology. Consult Attestations Medical Necessity Statement: per primary service Time Spent in Patient Care: 16 - 35 minutes Critical Care Time: Critical Care Time (min): 0 Coding Level of Care Code Acute Instructor Ground Services for Brandy Sanchez
[2019-06-05] MEDS: sodium chloride 0.9% 1,000 ML 30 ML IV (13:52)
[2019-06-05 17:21] LABS: Glucose Point of Care 201 mg/dL (70-110)
[2019-06-05 21:51] LABS: Glucose Point of Care 203 mg/dL (70-110)
[2019-06-06] VITALS (8 sets, daily range): BP systolic 139–173; BP diastolic 69–95; PULSE 79–85; RESP 15–35; TEMP 36.6; O2SAT 92–96
[2019-06-06 04:19] LABS: Anion Gap 18.6 (5-19); Blood Urea Nitrogen 48 mg/dL (8-23); Calcium 8.3 mg/dL (8.5-10.5); Carbon Dioxide 19 mmol/L (22-29); Chloride 102 mmol/L (98-107); Glomerular Filtration Rate 14.9 mL/min (90-130); Glucose 138 mg/dL (65-115); Osmolality Calculated 282 mOsm/kg (285-295); Potassium 3.6 mmol/L (3.5-5.1); Sodium 136 mmol/L (136-145)
[2019-06-06 06:43] LABS: Glucose Point of Care 143 mg/dL (70-110)
--- NOTE | 2019-06-06 08:20 | PM.DCS ---
Discharge Providers Date of Admission: 06/02/19 18:06 Date of Discharge: June 06, 2019 Attending Provider at Admission: Rob Calderon MD Attending Provider at Discharge: Alison Pina MD Primary Care Provider: Sarah Tamayo MD Diagnoses at Discharge Discharge Diagnosis (1) Rhabdomyolysis: Status: Resolved Problem details: -Noted to have rhabdomyolysis secondary to postictal state and prolonged immobilization on the floor -CPK slowly trending down (2752--->360) -d/c IV fluid hydration, encourage oral hydration -fall precautions Qualifiers: Rhabdomyolysis type: non-traumatic Qualified Code(s): M62.82 - Rhabdomyolysis (2) Acute kidney injury superimposed on chronic kidney disease: Status: Acute Problem details: -has DOROTEO on CKD stage 3 -baseline Cr is around 2; has been as high as 2.9 in the past -d/c gentle IVF hydration as has been on this for almost 48 hrs with minimal improvement in his renal function; want to prevent fluid overload due to underlying CHF -avoid nephrotoxins, renally dose meds -continue to monitor renal function -renal US normal, done due to borderline urine output and continued renal impairment -Nephrology consult requested due to continued oliguria and renal impairment; consult appreciated, very gentle IV fluid hydration with slight improvement in renal function -Patient follows up with Dr. Garduno as an outpatient (3) Seizure: Status: Acute Problem details: -Has been noted to have tonic-clonic seizure witnessed in ED during most recent admission. Presentation suspicious for postictal state. Patient had not been taking Keppra which was prescribed on discharge. -Loaded with Keppra in ED, continue at 500 mg twice daily -Seizure/fall/aspiration precautions -Neurochecks, reorient as needed; unclear if change in mental status is due to postictal state versus delirium -Recently had an EEG which was unremarkable -CT head, CT C-spine unremarkable -Chest x-ray shows cardiomegaly, no other acute findings -Noted leukocytosis which is likely reactive; now resolved -continue to monitor vital signs, currently stable Other Information Additional DC diagnoses/information: -hx of combined systolic and diastolic CHF; noted [id number]; Echo (05/2018): EF=35% -stress testing in 05/2018 showing scarring with mild urmila-infarct ischemia in RCA territory -hx of CAD s/p CABG x 3 -HTN; presented with hypertensive urgency during last admission that required treatment with nicardipine drip; resumed oral antihypertensives; titrate as needed for optimal BP control -Hyperlipidemia; noted lipid panel -NIDDM type II; A1c-7.6. Accuchecks, ISS -GERD Reason for Visit Reason for Visit: Reason For Visit: Rhabdomplysis;acute on ckd Hospital Course Hospital Course: Patient was admitted to the cardiac stepdown unit and placed on telemetry monitoring. He was found to have rhabdomyolysis so was started on IV fluid hydration with trending of CPK levels. He was also found to have worsening renal function. CPK levels have dropped significantly from 27 52->360. His renal function did not improve significantly with IV fluid hydration so this was discontinued. He was noted to have oliguria so nephrology was consulted. He does have underlying chronic kidney disease that seems to be gradually worsening. He does follow-up with Dr. Garduno as an outpatient and we will request follow-up appointment with him to continue to monitor his renal function. I am quite concerned about patient's overall functional status as this is the second admission in less than 1 month secondary to high fall risk and overall deconditioning. We have previously discussed SNF placement which patient declined. We discussed this during this admission and he has declined this again. He continues to be a high fall risk and has minimal support at home. He is agreeable to home health services so we will continue this at this time. He continues to be at high risk for readmission. Due to noted hypertension I have increased his dose of hydralazine for more optimal blood pressure control. The rest of his medications will continue as previously prescribed. Discharge Summary: -Patient to follow up with primary Physical Exam Const: COMMON NORMALS: no apparent distress and alert GENERAL APPEARANCE: cooperative and comfortable HENMT: COMMON NORMALS: normocephalic, head/scalp atraumatic, hearing grossly normal bilaterally and moist oral mucous membranes HEAD & SCALP: normocephalic and atraumatic Eye: COMMON NORMALS: PERRL, EOMs intact bilaterally and conjunctivae normal CONJUNCTIVA: Yes conjunctivae normal PUPIL: Yes PERRL Neck/C-Spine: COMMON NORMALS: full ROM GENERAL: Yes normal visual inspection and Yes trachea midline Resp: COMMON NORMALS: normal respiratory effort, no retractions, no use of accessory muscles and clear to auscultation bilaterally EFFORT & INSPECTION: Yes able to speak in complete sentences, Yes symmetric chest movement and No tachypneic AUSCULTATION: clear to auscultation bilaterally Cardio: COMMON NORMALS: regular rate, regular rhythm, S1 normal heart sound, S2 normal heart sound and no murmurs RATE: regular rate RHYTHM: regular rhythm HEART SOUNDS: S1 normal and S2 normal GI: COMMON NORMALS: normal to inspection, nondistended, normoactive bowel sounds, soft to palpation and non-tender INSPECTION: Yes central obesity PALPATION: Yes soft Extremity: COMMON NORMALS: normal to inspection, full ROM and no clubbing, cyanosis or edema; negative for no pedal edema Neuro: COMMON NORMALS: moves all extremities, no focal motor deficits and no sensory deficits noted SENSORIUM/ORIENTATION: Yes alert Psych: COMMON NORMALS: mental status grossly normal, thought process normal, cooperative, affect normal and speech normal SPEECH: Yes normal speech THOUGHT PROCESS: normal thought process Skin: COMMON NORMALS: no rashes or lesions noted, no jaundice, no petechiae and no mottling GENERAL SKIN EXAM: no rashes or lesions noted Discharge Data Data Completed and Pending: Completed Studies During Hospitalization Category Date Time Status CT cervical spin wo con* [id number] Urge nt Cat Scan 06/02/19 20:[address] head wo con* 7 0450 Urgent Cat Scan 06/02/19 20:14 Completed XR chest 1V shar ble [id number] Stat Exams 06/02/19 20:14 Completed US renal BI with bladder Routine Ultrasound 06/04/19 09:19 Completed Labs from last 24 hours 06/06/19 06/06/19 06/05/19 06:39 03:07 21:36 Sodium 136 Potassium 3.6 Chloride 102 Carbon Dioxide 19 L Anion Gap 18.6 BUN 48 H Creatinine 4.0 H GFR Calculation 14.9 L Glucose 138 H POC Glucose 143 203 Calculated Osmolal ity 282 L Calcium 8.3 L Ur Random Sodium Ur Random Potassiu m Ur Random Chloride Ur Random Urea Nit rogn Urine Creatinine 06/05/19 06/05/19 06/05/19 17:18 11:38 11:06 Sodium Potassium Chloride Carbon Dioxide Anion Gap BUN Creatinine GFR Calculation Glucose POC Glucose 201 170 Calculated Osmolal ity Calcium Ur Random Sodium 22 Ur Random Potassiu m 17 Ur Random Chloride 14 Ur Random Urea Nit rogn Urine Creatinine 97 06/05/19 11:06 Sodium Potassium Chloride Carbon Dioxide Anion Gap BUN Creatinine GFR Calculation Glucose POC Glucose Calculated Osmolal ity Calcium Ur Random Sodium Ur Random Potassiu m Ur Random Chloride Ur Random Urea Nit rogn 451 Urine Creatinine Vitals: Last Vital Signs Temp 98 F 06/06/19 04:00 Pulse 85 06/06/19 07:59 Resp 26 H 06/06/19 07:59 BP 173/69 06/06/19 07:59 Pulse Ox 95 06/06/19 07:59 Discharge Plan Discharge Patient Disposition: Home Health Service Condition: Stable Prescriptions: New hydralazine 50 mg tablet 50 mg PO TID 30 Days Qty: 90 RF: 0 Continued furosemide 40 mg Tablet 40 mg PO DAILY RF: 0 hydrocodone-acetaminophen 7.5-325 mg Tablet 1 tab PO BID PRN (Reason: Pain) RF: 0 nitroglycerin 0.4 mg Tablet, Sublingual 0.4 mg SUBLINGUAL Q5M MDD 3 PRN (Reason: Chest Pain) RF: 0 omeprazole 40 mg Capsule,Delayed Release(Dr/Ec) 40 mg PO DAILY RF: 0 tramadol 50 mg Tablet 50 mg PO BID PRN (Reason: Pain) RF: 0 levetiracetam 500 mg Tablet 500 mg PO BID 30 Days Qty: 60 RF: 0 amlodipine 10 mg Tablet 10 mg PO DAILY 30 Days Qty: 30 RF: 0 Multiple Vitamins Tablet 1 tab PO DAILY RF: 0 promethazine-DM 6.25-15 mg/5 mL syrup 5 ml PO Q8H PRN (Reason: Cough) RF: 0 aspirin 325 mg Tablet 325 mg PO DAILY RF: 0 melatonin 5 mg Tablet 5 mg PO BEDTIME RF: 0 Discontinued hydralazine 10 mg Tablet 10 mg PO TID RF: 0 Discharge Orders: Discharge Order (Routine); Ordered 06/06/19 Ordered By: Alison Pina Referrals: [facility] [Outside] Sarah Tamayo MD [Primary Care Provider] - 4-7 days (Post-hospital discharge follow up) Angus Garduno MD [Referring] - 2 weeks (Post-hospital discharge follow up, had noted worsening renal function and rhabdomyolysis; rhabdomyolysis has resolved but Cr is not quite at baseline despite IV hydration.) Discharge Diet: Cardiac Discharge Activity: Increase activity as tolerated Activity Restrictions/Additional Instructions: -Please continue to work with physical therapy on getting stronger and being safer around your home. Discharge Attestations Time Spent in Discharge Care*: greater than 30 min Specific Discharge Activities: Specific discharge activities: educating patient, discussing with social work case manager/social workers/dc planners, documenting/other paperwork and evaluating patient/reviewing data Status at Discharge: Cognitive status at discharge: cognitively intact, Behavioral status at discharge: cooperative, Functional status at discharge: uses cane/walker Overall status at discharge: patient is back to baseline Quality Metrics Clinical Quality Measures During this hospital stay, did patient experience: None Coding Level of Care Code 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
[2019-06-06] MEDS: levETIRAcetam 500 mg Tablet PO ×2 (08:45→18:00)
[2019-06-06] MEDS: heparin 5,000 unit/mL INJ 1 mL 5000 UNIT SUBCUT ×2 (08:46→21:17)
[2019-06-06] MEDS: hyDRALAzine 50 mg Tablet PO ×3 (08:46→21:16)
[2019-06-06] MEDS: amlodipine 10 mg Tablet PO (08:46)
--- NOTE | 2019-06-06 10:14 | PC.CHAP ---
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 research environmental engineer visit [] Patient/Family/Request visit [] Outpatient visit [] Follow-up visit [] Physician referral [] Code/Alert [x] Routine visit [] Staff referral [] Actively dying [] Patient sleeping [] Family support [] [] Out of room [] Palliative care [] [] Receiving care in room [] Pre-surgical visit [] Trauma [] Long length of stay [] ICU visit [] Other: Relational/Emotional Strength [] Patient feels connected with others/family/visitors/staff [] Distress [] Loneliness/isolation [] Abandonment Spirituality of Patient [] Person of Ghislaine [] Attends Pentecostalism of their [place] [x] Believes in Prayer [] Reads Bible or Presybeterian materials [] There are Spiritual issues to be addressed Deck Builder Interventions [x] Prayer [] Active listening [] Non-anxious presence [] Spiritual/emotional support [] Crisis/trauma care [] Spiritual counseling [] Bereavement support [] Provided bereavement packet [] Provided Bible/devotional materials [] Provided toy/stuffed animal, coloring book to patient or family member [] Provided Communion [] Anointing/[place] [] Salvation [x] Completed spiritual assessment [] Other: Impact on Illness or Injury [] Angry [] Fearful [] Anxious [] Often cries [] Exhaustion [] Unable to work [] Unable to attend latter day [] Unable to walk/stand [] Unable to read [] Unable to drive [] Unable to eat/drink [] Unable to sleep [] Unable to be with family [] Patient intubated [] Other: Summary Patient receiving very good care. Patient has desire to return home. Time spent with patient 10min
[2019-06-06 12:00] LABS: Glucose Point of Care 162 mg/dL (70-110)
--- NOTE | 2019-06-06 13:41 | PC.NURSE ---
lpending discharge today
--- NOTE | 2019-06-06 16:52 | P.PN_ITS ---
Subjective Subjective: Interval history: Patient seen and examined earlier in the day, sitting up in a chair, alert, oriented x3, reiterates that he would like to go home. Initial plan earlier in the day was for discharge home. However later in the afternoon I was informed by case management and nursing staff that patient is quite lethargic. I returned to the room to assess the patient again, he is quite sleepy though easily arousable, unable to maintain wakefulness for more than a few minutes at a time. Informed him that we would have to hold off on discharge until he is more awake which she is agreeable to. Medications: Reviewed: Yes Medication Review Details: Active Medications Generic Name Dose Route Start Last Admin Trade Name Freq PRN Reason Stop Dose Admin Hydrocodone Bitart /Acetaminophen 1 tab 06/05/19 10:10 06/05/19 10:34 [place] 5-325 Mg PO 1 tab Q4H PRN Administration MODERATE PAIN Amlodipine Besylat e 10 mg 06/04/19 09:15 06/06/19 08:46 Norvasc PO 10 mg DAILY YANELI Administration Dextrose 25 ml 06/02/19 20:14 D50w IVP ONCE PRN hypoglycemia prot ocol Protocol Dextrose 50 ml 06/02/19 20:14 D50w IVP PRN PRN hypoglycemia prot ocol Protocol Glucagon 1 mg 06/02/19 20:14 Glucagen IM ONCE PRN Adult Acute Hypog lycemia Prot. Protocol Heparin Sodium (Be ef Lung) 5,000 unit 06/02/19 20:15 06/06/19 08:46 Heparin SUBCUT 5,000 unit Q12H YANELI Administration Hydralazine HCl 50 mg 06/06/19 09:00 06/06/19 14:13 Apresoline PO 50 mg TID YANELI Administration Dextrose 500 mls @ 100 mls /hr 06/02/19 20:14 D5w IV ONCE PRN Adult Acute Hypog lycemia Prot Protocol Sodium Chloride 1,000 mls @ 30 ml s/hr 06/05/19 13:30 06/06/19 13:40 Sodium Chloride 0.9% IV Not Given .Q24H YANELI Insulin Aspart 0 unit 06/02/19 21:00 06/06/19 13:36 Novolog SUBCUT 2 unit WM&BEDTIME YANELI Administration Protocol Levetiracetam 500 mg 06/04/19 18:00 06/06/19 08:45 Keppra PO 500 mg BID YANELI Administration Morphine Sulfate 2 mg 06/02/19 20:14 Morphine IVP Q6H PRN SEVERE PAIN Naloxone HCl 0.1 mg 06/02/19 20:14 Narcan IVP Q2M PRN OPIATERV Ondansetron HCl 4 mg 06/02/19 20:14 06/03/19 02:39 Zofran IVP 4 mg Q8H PRN Administration vomiting, or N/V if npo Potassium Chloride 40 meq 06/04/19 09:15 06/06/19 08:45 Klor-Con 10 PO 40 meq DAILY YANELI Administration No Known Allergies Allergy (Verified 05/23/19 10:46) Vitals/I&O/Wt Last Vital Signs Temp 98 F 06/06/19 04:00 Pulse 82 06/06/19 16:00 Resp 15 06/06/19 16:00 BP 158/89 06/06/19 16:00 Pulse Ox 92 06/06/19 16:00 06/06/19 06/06/19 06/06/19 06:59 14:59 22:59 Intake Total 200 / 950 120 / 120 Balance 200 / 200 120 / 120 Physical Exam Const: COMMON NORMALS: no apparent distress and alert GENERAL APPEARANCE: cooperative and comfortable HENMT: COMMON NORMALS: normocephalic, head/scalp atraumatic, hearing grossly normal bilaterally and moist oral mucous membranes HEAD & SCALP: normocephalic and atraumatic Eye: COMMON NORMALS: PERRL, EOMs intact bilaterally and conjunctivae normal CONJUNCTIVA: Yes conjunctivae normal PUPIL: Yes PERRL Neck/C-Spine: COMMON NORMALS: full ROM GENERAL: Yes normal visual inspect ion and Yes trachea midline Resp: COMMON NORMALS: normal respiratory effort, no retractions, no use of accessory muscles and clear to auscultation bilaterally EFFORT & INSPECTION: Yes able to speak in complete sentences, Yes symmetric chest movement and No tachypneic AUSCULTATION: clear to auscultation bilaterally Cardio: COMMON NORMALS: regular rate, regular rhythm, S1 normal heart sound, S2 normal heart sound and no murmurs RATE: regular rate RHYTHM: regular rhythm HEART SOUNDS: S1 normal and S2 normal GI: COMMON NORMALS: normal to inspection, nondistended, normoactive bowel sounds, soft to palpation and non-tender INSPECTION: Yes central obesity PALPATION: Yes soft Extremity: COMMON NORMALS: normal to inspection, full ROM and no clubbing, cyanosis or edema; negative for no pedal edema Neuro: COMMON NORMALS: moves all extremities, no focal motor deficits and no sensory deficits noted SENSORIUM/ORIENTATION: Yes alert Psych: COMMON NORMALS: mental status grossly normal, thought process normal, cooperative, affect normal and speech normal SPEECH: Yes normal speech THOUGHT PROCESS: normal thought process Skin: COMMON NORMALS: no rashes or lesions noted, no jaundice, no petechiae and no mottling GENERAL SKIN EXAM: no rashes or lesions noted Data : 06/04/19 03:19 06/06/19 03:07 A&P Assessment and plan (1) Rhabdomyolysis: -Noted to have rhabdomyolysis secondary to postictal state and prolonged immobilization on the floor -CPK slowly trending down (2752--->360), continue to trend -d/c IV fluid hydration, encourage oral hydration -fall precautions Status: Resolved Qualifiers: Rhabdomyolysis type: non-traumatic Qualified Code(s): M62.82 - Rhabdomyolysis Code(s): M62.82 - Rhabdomyolysis (2) Acute kidney injury superimposed on chronic kidney disease: -has DOROTEO on CKD stage 3 -baseline Cr is around 2; has been as high as 2.9 in the past -d/c gentle IVF hydration as has been on this for almost 48 hrs with minimal improvement in his renal function; want to prevent fluid overload due to underlying CHF -avoid nephrotoxins, renally dose meds -continue to monitor renal function -renal US normal, done due to borderline urine output and continued renal impairment -Nephrology consult requested due to continued oliguria and renal impairment; consult appreciated, will try very gentle IV fluid hydration -Patient follows up with Dr. Garduno as an outpatient Status: Acute Code(s): N17.9 - Acute kidney failure, unspecified; N18.9 - Chronic kidney disease, unspecified (3) Seizure: -Has been noted to have tonic-clonic seizure witnessed in ED during most recent admission. Presentation suspicious for postictal state. Patient had not been taking Keppra which was prescribed on discharge. -Loaded with Keppra in ED, continue at 500 mg twice daily -Seizure/fall/aspiration precautions -Neurochecks, reorient as needed; unclear if change in mental status is due to postictal state versus delirium -Recently had an EEG which was unremarkable -CT head, CT C-spine unremarkable -Chest x-ray shows cardiomegaly, no other acute findings -Noted leukocytosis which is likely reactive; now resolved -continue to monitor vital signs, currently stable Status: Acute Code(s): R56.9 - Unspecified convulsions Additional A&P Information -hx of combined systolic and diastolic CHF; noted [id number]; Echo (05/2018): EF=35% -stress testing in 05/2018 showing scarring with mild urmila-infarct ischemia in RCA territory -hx of CAD s/p CABG x 3 -HTN; presented with hypertensive urgency during last admission that required treatment with nicardipine drip; resumed oral antihypertensives; titrate as needed for optimal BP control -Hyperlipidemia; noted lipid panel -NIDDM type II; A1c-7.6. Accuchecks, ISS -GERD -DVT ppx with heparin -passed bedside dysphagia screen; on diabetic diet -Dispo: needs SNF given need for increased safety, supervision which is not available at home; came from home and wants to return home. Is okay with home health services. -Code status: FULL code Attestations Medical Necessity Statement*: Patient requires hospitalization for continued monitoring given noted change in mental status this afternoon. Time Spent in Patient Care: Greater than 35 minutes (>than 50% of time spent in counselling and/or direct pt care on unit) . 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
[2019-06-06 17:32] LABS: Glucose Point of Care 213 mg/dL (70-110)
--- NOTE | 2019-06-06 19:16 | PC.NURSE ---
Notified that patient had spilled water on himself. Went to check on patient. Patient stated Leave me alone. It's just water. Notified RN.
[2019-06-06 20:35] LABS: Glucose Point of Care 201 mg/dL (70-110)
[2019-06-07] VITALS: BP 171/89; PULSE 77; RESP 32; TEMP 36.8; O2SAT 95
[2019-06-07 04:00] VITALS: BP 167/66; PULSE 80; RESP 27; TEMP 36.8; O2SAT 95
[2019-06-07 06:21] LABS: Glucose Point of Care 132 mg/dL (70-110)
[2019-06-07 07:49] VITALS: BP 182/87; PULSE 80; RESP 18; TEMP 36.6; O2SAT 93
[2019-06-07 08:00] VITALS: BP 181/81; PULSE 81; RESP 18; TEMP 36.6
[2019-06-07 10:44] VITALS: BP 181/81; PULSE 81; RESP 18; TEMP 36.6; O2SAT 94
[2019-06-07] MEDS: hyDRALAzine 50 mg Tablet PO (11:15)
[2019-06-07] MEDS: levETIRAcetam 500 mg Tablet PO (11:15)
[2019-06-07] MEDS: heparin 5,000 unit/mL INJ 1 mL 5000 UNIT SUBCUT (11:16)
[2019-06-07] MEDS: amlodipine 10 mg Tablet PO (11:17)
[2019-06-07 11:42] LABS: Glucose Point of Care 229 mg/dL (70-110)
[2019-06-07 11:52] VITALS: BP 181/81; PULSE 81; RESP 18; TEMP 36.6; O2SAT 94
--- NOTE | 2019-06-07 14:56 | P.PN_ITS ---
Subjective Subjective: Interval history: Patient alert and oriented, wants to go home. Case management working on transportation. No acute overnight events reported. Medications: Reviewed: Yes Medication Review Details: No Known Allergies Allergy (Verified 05/23/19 10:46) Vitals/I&O/Wt Last Vital Signs Temp 97.8 F 06/07/19 11:52 Pulse 81 06/07/19 11:52 Resp 18 06/07/19 11:52 BP 181/81 06/07/19 11:52 Pulse Ox 94 06/07/19 11:52 06/06/19 06/07/19 06/07/19 22:59 06:59 14:59 Intake Total 120 / 240 150 / 390 240 / 240 Output Total 350 / 350 250 / 600 350 / 350 Balance -230 / -110 -100 / -210 -110 / -110 Physical Exam Const: COMMON NORMALS: no apparent distress and alert GENERAL APPEARANCE: cooperative and comfortable HENMT: COMMON NORMALS: normocephalic, head/scalp atraumatic, hearing grossly normal bilaterally and moist oral mucous membranes HEAD & SCALP: normocephalic and atraumatic Eye: COMMON NORMALS: PERRL, EOMs intact bilaterally and conjunctivae normal CONJUNCTIVA: Yes conjunctivae normal PUPIL: Yes PERRL Neck/C-Spine: COMMON NORMALS: full ROM GENERAL: Yes normal visual inspection and Yes trachea midline Resp: COMMON NORMALS: normal respiratory effort, no retractions, no use of accessory muscles and clear to auscultation bilaterally EFFORT & INSPECTION: Yes able to speak in complete sentences, Yes symmetric chest movement and No tachypneic AUSCULTATION: clear to auscultation bilaterally Cardio: COMMON NORMALS: regular rate, regular rhythm, S1 normal heart sound, S2 normal heart sound and no murmurs RATE: regular rate RHYTHM: regular rhythm HEART SOUNDS: S1 normal and S2 normal GI: COMMON NORMALS: normal to inspection, nondistended, normoactive bowel sounds, soft to palpation and non-tender INSPECTION: Yes central obesity PALPATION: Yes soft Extremity: COMMON NORMALS: normal to inspection, full ROM and no clubbing, cyanosis or edema; negative for no pedal edema Neuro: COMMON NORMALS: moves all extremities, no focal motor deficits and no sensory deficits noted SENSORIUM/ORIENTATION: Yes alert Psych: COMMON NORMALS: mental status grossly normal, thought process normal, cooperative, affect normal and speech normal SPEECH: Yes normal speech THOUGHT PROCESS: normal thought process Skin: COMMON NORMALS: no rashes or lesions noted, no jaundice, no petechiae and no mottling GENERAL SKIN EXAM: no rashes or lesions noted Data : 06/04/19 03:19 06/06/19 03:07 A&P Assessment and plan (1) Rhabdomyolysis: -Noted to have rhabdomyolysis secondary to postictal state and prolonged immobilization on the floor -CPK slowly trending down (2752--->360), continue to trend -d/c IV fluid hydration, encourage oral hydration -fall precautions Status: Resolved Qualifiers: Rhabdomyolysis type: non-traumatic Qualified Code(s): M62.82 - Rhabdomyolysis Code(s): M62.82 - Rhabdomyolysis (2) Acute kidney injury superimposed on chronic kidney disease: -has DOROTEO on CKD stage 3 -baseline Cr is around 2; has been as high as 2.9 in the past -d/c gentle IVF hydration as has been on this for almost 48 hrs with minimal improvement in his renal function; want to prevent fluid overload due to underlying CHF -avoid nephrotoxins, renally dose meds -continue to monitor renal function -renal US normal, done due to borderline urine output and continued renal impairment -Nephrology consult requested due to continued oliguria and renal impairment; consult appreciated, will try very gentle IV fluid hydration -Patient follows up with Dr. Garduno as an outpatient Status: Acute Code(s): N17.9 - Acute kidney failure, unspecified; N18.9 - Chronic kidney disease, unspecified (3) Seizure: -Has been noted to have tonic-clonic seizure witnessed in ED during most recent admission. Presentation suspicious for postictal state. Patient had not been taking Keppra which was prescribed on discharge. -Loaded with Keppra in ED, continue at 500 mg twice daily -Seizure/fall/aspiration precautions -Neurochecks, reorient as needed; unclear if change in mental status is due to postictal state versus delirium -Recently had an EEG which was unremarkable -CT head, CT C-spine unremarkable -Chest x-ray shows cardiomegaly, no other acute findings -Noted leukocytosis which is likely reactive; now resolved -continue to monitor vital signs, currently stable Status: Acute Code(s): R56.9 - Unspecified convulsions Additional A&P Information -hx of combined systolic and diastolic CHF; noted [id number]; Echo (05/2018): EF=35% -stress testing in 05/2018 showing scarring with mild urmila-infarct ischemia in RCA territory -hx of CAD s/p CABG x 3 -HTN; presented with hypertensive urgency during last admission that required treatment with nicardipine drip; resumed oral antihypertensives; titrate as needed for optimal BP control -Hyperlipidemia; noted lipid panel -NIDDM type II; A1c-7.6. Accuchecks, ISS -GERD -DVT ppx with heparin -passed bedside dysphagia screen; on diabetic diet -Dispo: needs SNF given need for increased safety, supervision which is not available at home; came from home and wants to return home. Is okay with home health services. -Code status: FULL code Attestations Medical Necessity Statement*: Discharge home today. Time Spent in Patient Care: less than 15 minutes Coding Level of Care Code Acute Airline Hostess for jesus Sanchez Diagnoses Rhabdomyolysis M62.82 Rhabdomyolysis type: non-traumatic Acute kidney injury superimposed on chronic kidney disease N17.9; N18.9 Seizure R56.9
== END 2019-06-07 12:59 | disposition home health service (06) | DRG 683 ==
LOC: ER 17:19 → CSU 20:00
PROVIDERS: Student in an Organized Health Care Education/Training Program; Admitting Provider Student in an Organized Health Care Education/Training Program; Emergency Provider Family Medicine; Family Provider Internal Medicine; PCP Internal Medicine; Visit Provider Family Medicine
DX: N17.9 Acute kidney failure, unspecified (principal); M62.82 Rhabdomyolysis; I50.42 Chronic combined systolic (congestive) and diastolic (congestive) heart failure; I13.0 Hypertensive heart and chronic kidney disease with heart failure and stage 1 through stage 4 chronic kidney disease, or unspecified chronic kidney disease; E11.42 Type 2 diabetes mellitus with diabetic polyneuropathy; I25.10 Atherosclerotic heart disease of native coronary artery without angina pectoris; Z95.1 Presence of aortocoronary bypass graft; E78.5 Hyperlipidemia, unspecified; K21.9 Gastro-esophageal reflux disease without esophagitis; Z79.82 Long term (current) use of aspirin; Z79.899 Other long term (current) drug therapy; Z79.891 Long term (current) use of opiate analgesic; N18.4 Chronic kidney disease, stage 4 (severe); I16.0 Hypertensive urgency; E11.22 Type 2 diabetes mellitus with diabetic chronic kidney disease; Z66 Do not resuscitate; G40.409 Other generalized epilepsy and epileptic syndromes, not intractable, without status epilepticus; Z87.891 Personal history of nicotine dependence
CPT/HCPCS: 12345; 36415; 36416; 70450; 71045; 72125; 76770; 76857; 80048; 80053; 80307; 81001; 82436; 82550; 82570; 82962; 83690; 83735; 83880; 84133; 84300; 84484; 84540; 85025; 87086; 92610; 93005; 94664; 96372; 96375; 97110; 97116; 97161; 97530; 99283; J0360; J1644; J1815; J1953; J2405; J7030

== ENCOUNTER 2019-06-11 15:01 | Inpatient (IN) | payer MEDICARE, SELFPAY ==
[2019-06-11 15:04] VITALS: BMI 38.7
[2019-06-11 15:09] VITALS: BP 170/92; PULSE 95; RESP 20; TEMP 36.9; O2SAT 94
--- NOTE | 2019-06-11 15:09 | ED_ITS ---
Entered by Vianney Duval, acting as scribe for Concepción Phillips MD HPI - Fall General: Chief Complaint: Fall Stated Complaint: FALL BEEN ON FLOOR FOR 12 HOURS Time Seen by Provider: 06/11/19 15:14 Source: patient and EMS Mode of arrival: EMS Limitations: no limitations History of Present Illness: HPI Narrative: 68 yo male presents with weakness. pt states he slid in the floor yesterday. pt states he was down for 12 hours until a friend showed up and called EMS. pt states he was discharged on Sunday from [facility] for the same issues, they offered snf placement but he refused and states he will not go to one. pt smells of urine. pt denies any other symptoms. pt has redness and tenderness to chest and L arm. complaint: other (pt states he got down in floor and couldnt get up) Onset (ago): day(s) (today) Fall from: chair Associated symptoms-after fall: Denies abdominal pain, chest pain or headache(s) Review of Systems General: Reports: 10 or more systems reviewed and unremarkable except in HPI and below Const: Denies: fever or chills Eyes: Denies: photophobia ENMT: Denies: enlarged tonsils Card: Denies: chest pain Resp: Denies: shortness of breath GI: Denies: abdominal pain, nausea, vomiting or change in bowel habits Musc: Denies: joint warmth Skin/Breast: Denies: rash Neuro: Denies: headache Psych: Denies: hopelessness or suicidal ideation Endo: Denies: excessive urination Stanley/Lymph: Denies: easy bruising or easy bleeding All/Imm: Denies: hives PFS ED PFSH: Medical History (Updated 06/11/19 @ 19:05 by Concepción Phillips MD) CHF (congestive heart failure) CKD (chronic kidney disease), stage III -known hx of CKD stage 3; baseline Cr is around 2 now with superimposed DOROTEO -avoid nephrotoxins, renally dose meds -continue to monitor renal function Combined systolic and diastolic congestive heart failure -has known hx of chronic combined systolic and diastolic CHF; no acute exacerbation currently -Echo (05/2018): EF=35% -stress testing in 05/2018 showing scarring with mild urmila-infarct ischemia in RCA territory Diabetes mellitus Hypertension Multilevel degenerative disc disease -has known hx of multilevel DJD, s/p spinal stimulator -hold opiates, sedating meds due to altered mental status -fall precautions -imaging reviewed, no acute findings Peripheral neuropathy Post-ictal state Rhabdomyolysis Seizure disorder Spinal cord stimulator status Spinal stenosis Type 2 diabetes mellitus Surgical History S/P CABG x 3 S/P insertion of spinal cord stimulator Social History (Updated 06/11/19 @ 18:20 by Matias Young MD) Smoking and tobacco status: never smoked Alcohol intake: former Substance/Drug Use: never Physical Exam Narrative: EXAM NARRATIVE: unable to sit up on own in the bed and even with assistants , redness of chest and L arm Const: COMMON NORMALS: no apparent distress, oriented x3, alert and well nourished OTHER: found down, smells of urine. HENMT: COMMON NORMALS: normocephalic and external nose normal HEAD & SCALP: normocephalic NOSE: external nose normal MOUTH: other (dry mucous membranes) Eye: COMMON NORMALS: EOMs intact bilaterally and conjunctivae normal CONJUNCTIVA: Yes conjunctivae normal Neck/C-Spine: COMMON NORMALS: full ROM, no lymphadenopathy and supple CERVICAL SPINE: Yes cervical ROM normal Lymph: LYMPHATIC: no lymphadenopathy noted Resp: COMMON NORMALS: normal respiratory effort, no retractions, no use of accessory muscles and clear to auscultation bilaterally EFFORT & INSPECTION: Yes able to speak in complete sentences AUSCULTATION: clear to auscultation bilaterally Cardio: COMMON NORMALS: regular rate and regular rhythm RATE: regular rate RHYTHM: regular rhythm GI: COMMON NORMALS: normal to inspection, nondistended, normoactive bowel sounds, soft to palpation, non-tender and no masses INSPECTION: Yes normal to inspection AUSCULTATION: Yes normoactive bowel sounds PALPATION: Yes soft, No guarding and No rigid Back/Pelvis: OTHER: Normal range of motion Extremity: GENERAL: Yes normal exam except as noted Neuro: COMMON NORMALS: oriented x3 and CN's II-XII intact bilaterally SENSORIUM/ORIENTATION: Yes alert SPEECH: speech normal Psych: COMMON NORMALS: mental status grossly normal Skin: COMMON NORMALS: no rashes or lesions noted GENERAL SKIN EXAM: no rashes or lesions noted Course Vital Signs: Vital signs: Vital Signs Temperature 98.5 F 06/11/19 15:09 Pulse Rate 93 06/11/19 20:00 Respiratory Rate 27 H 06/11/19 20:00 Blood Pressure 162/85 06/11/19 20:00 Pulse Oximetry 93 06/11/19 20:00 MDM - Fall MDM Narrative: Medical decision making narrative: Dr. Young came down and saw this patient will put in for observation status CT head was ordered by Dr. Young since he began vomiting when he was in the room. Lab Data: Attestation: I reviewed the patient's lab results. Labs: Lab Results 06/11/19 06/11/19 Range/Units 15:48 15:48 WBC 8.2 (4.0-10.0) 10^3/ uL RBC 3.77 L (4.1-5.3) 10^6/u L Hgb 11.3 L (11.7-16.6) g/dL Hct 35.6 L (42.0-52.0) % MCV 94.4 H (80-94) fL MCH 30.0 (28.0-34.0) pg MCHC 31.7 (30.0-36.0) g/dL RDW 12.7 (12.1-15.1) % Plt Count 241 (130-400) 10^3/c mm MPV 10.2 (7.4-10.4) fL Neut % (Auto) 86.9 % Lymph % (Auto) 3.8 % Real % (Auto) 8.4 % Eos % (Auto) 0.1 % Baso % (Auto) 0.6 % Neut # (Auto) 7.1 (1.8-7.7) 10^3/u L Lymph # (Auto) 0.3 L (0.8-4.8) 10^3/u L Real # (Auto) 0.7 (0.2-0.9) 10^3/u L Eos # (Auto) 0.0 (0.0-0.8) 10^3/u L Baso # (Auto) 0.1 (0.0-0.1) 10^3/u L Nucleated RBC % (a uto) 0 % Nucleated RBCs # 0.0 /100WBC Sodium 140 (136-145) mmol/L Potassium 4.7 (3.5-5.1) mmol/L Chloride 105 (98-107) mmol/L Carbon Dioxide 20 L (22-29) mmol/L Anion Gap 19.7 H (5-19) BUN 35 H (8-23) mg/dL Creatinine 3.6 H (0.7-1.2) mg/dL GFR Calculation 16.8 L (90-130) mL/min Glucose 195 H (65-115) mg/dL Calcium 8.8 (8.5-10.5) mg/dL Total Bilirubin 0.4 (0.15-1.2) mg/dL AST 25 (0-40) U/L ALT 24 (0-41) U/L Alkaline Phosphata se 76 (40-130) IU/L Creatine Kinase 438 H* (39-308) U/L Total Protein 6.5 L (6.6-8.7) g/dL Albumin 3.3 L (3.5-5.2) g/dL Globulin 3.2 (1.3-4.6) g/dL Discharge Plan Discharge Patient Disposition: Admitted As Inpatient Admit Provider: Matias Yonug Clinical Impression: Encephalopathy, Seizure Rhabdomyolysis Qualifiers: Rhabdomyolysis type: traumatic Encounter type: initial encounter Qualified Code(s): T79.6XXA - Traumatic ischemia of muscle, initial encounter Condition: Stable Referrals: Sarah Tamayo MD [Primary Care Provider] - Coding Level of Care Code ED Supervisor Education for Chg Fwd Exam Comprehensive The documentation recorded by the Mukund calbarese Bridget Annette, accurately reflects the service I personally performed and the decisions made by Alan marin Megan, MD Jun 11, 2019 15:01
[2019-06-11 15:11] VITALS: O2SAT 94
[2019-06-11 15:54] VITALS: BP 199/96; PULSE 99; RESP 20; O2SAT 95
[2019-06-11] MEDS: sodium chloride 0.9% 1,000 ML 999 ML IV (15:54)
[2019-06-11 15:57] LABS: Basophils # 0.1 10^3/uL (0.0-0.1); Basophils % 0.6 %; Eosinophils % 0.1 %; Hematocrit 35.6 % (42.0-52.0); Hemoglobin 11.3 g/dL (11.7-16.6); Lymphocytes # 0.3 10^3/uL (0.8-4.8); Lymphocytes % 3.8 %; Mean Corpuscular HGB Conc 31.7 g/dL (30.0-36.0); Mean Corpuscular Volume 94.4 fL (80-94); Mean Platelet Volume 10.2 fL (7.4-10.4); Monocytes # 0.7 10^3/uL (0.2-0.9); Monocytes % 8.4 %; Neutrophils # 7.1 10^3/uL (1.8-7.7); Neutrophils % 86.9 %; Nucleated Red Blood Cells % 0 %; Platelet Count 241 10^3/cmm (130-400); Red Blood Count 3.77 10^6/uL (4.1-5.3); Red Cell Distribution Width 12.7 % (12.1-15.1); White Blood Count 8.2 10^3/uL (4.0-10.0)
[2019-06-11 16:10] LABS: Alanine Aminotransferase 24 U/L (0-41); Albumin Level 3.3 g/dL (3.5-5.2); Alkaline Phosphatase 76 IU/L (40-130); Anion Gap 19.7 (5-19); Aspartate Amino Transferase 25 U/L (0-40); Blood Urea Nitrogen 35 mg/dL (8-23); Calcium 8.8 mg/dL (8.5-10.5); Carbon Dioxide 20 mmol/L (22-29); Chloride 105 mmol/L (98-107); Globulin 3.2 g/dL (1.3-4.6); Glomerular Filtration Rate 16.8 mL/min (90-130); Glucose 195 mg/dL (65-115); Potassium 4.7 mmol/L (3.5-5.1); Sodium 140 mmol/L (136-145); Total Bilirubin 0.4 mg/dL (0.15-1.2); Total Protein 6.5 g/dL (6.6-8.7)
[2019-06-11 16:23] LABS: Creatine Phosphokinase 438 U/L (39-308)
--- NOTE | 2019-06-11 18:17 | P.HP_ITS ---
Providers/Chief Complaint Primary Care Provider: Sarah Tamayo MD Chief Complaint: FALL BEEN ON FLOOR FOR 12 HOURS History of Present Illness Moy Fernandez is a 68 year old male who cannot really give me any type of history. He reports he was on the floor but does not remember how he got there. No family is present. On reviewing his records this is happened several times. There is been concern that he is not able to care for himself at home. There is concerned that he may not be taking his medications, or perhaps even having seizures at home. Patient himself reports he feels fine now, but seems confused. Again, he cannot give me any kind of significant past medical history but when redirected can answer some specific questions. Previous hospital there was concern he did not take the Keppra prescribed. I am not sure if he is taking this at home or not currently. There is also concern of his ability to take care of himself at home, and from what I understand senior services has been notified and is planning on visiting the patient. Review of Systems General: Reports: ROS unobtainable due to mental status and other (Although he can answer some specific questions the answers are not reliable currently.) Medications/Allergies Allergies Allergy/AdvReac Type Severity Reaction Status Date / Time No Known Allergies Allergy Verified 05/23/19 10:46 PFSH Acute PFSH: Medical History (Updated 06/11/19 @ 18:28 by Matias Young MD) CHF (congestive heart failure) CKD (chronic kidney disease), stage III -known hx of CKD stage 3; baseline Cr is around 2 now with superimposed DOROTEO -avoid nephrotoxins, renally dose meds -continue to monitor renal function Combined systolic and diastolic congestive heart failure -has known hx of chronic combined systolic and diastolic CHF; no acute exacerbation currently -Echo (05/2018): EF=35% -stress testing in 05/2018 showing scarring with mild urmila-infarct ischemia in RCA territory Diabetes mellitus Hypertension Multilevel degenerative disc disease -has known hx of multilevel DJD, s/p spinal stimulator -hold opiates, sedating meds due to altered mental status -fall precautions -imaging reviewed, no acute findings Peripheral neuropathy Post-ictal state Rhabdomyolysis Seizure disorder Spinal cord stimulator status Spinal stenosis Type 2 diabetes mellitus Surgical History S/P CABG x 3 S/P insertion of spinal cord stimulator Social History (Updated 06/11/19 @ 18:20 by Matias Young MD) Smoking and tobacco status: never smoked Alcohol intake: former Substance/Drug Use: never [facility] Information: Patient cannot relate any significant family history currently. Vitals/I&O/Wt Last Vital Signs Temp 98.5 F 06/11/19 15:09 Pulse 99 06/11/19 15:54 Resp 20 H 06/11/19 15:54 BP 199/96 06/11/19 15:54 Pulse Ox 95 06/11/19 15:54 Weight last 48 hrs Weight 108.862 kg Physical Exam Narrative: EXAM NARRATIVE: General exam demonstrates an obese white male, who can answer some directed questions but seems somewhat confused. Frequently blows out through pursed lips during the questions. However, he is calm and at the end of the interview asks what my name was again HEENT: Pupils equally round. Oropharynx clear. Neck is supple, obese, no obvious thyromegaly or mass Cardiovascular regular rate and rhythm without murmur. Midline scar is noted. Lungs are clear no wheezing or crackles. Sounds distant Abdomen is soft, positive bowel sounds, obese. was deferred Extremities 1+ lower extremity edema bilaterally Neurologic, slow to respond but can answer some focal questions. Data : 06/11/19 15:48 06/11/19 15:48 Other data: CK is elevated at 438. No additional imaging was done I ordered a ABG, ammonia level A&P Assessment and plan (1) Encephalopathy: Certainly this could represent delirium, postictal state, or potentially another etiology. ABG has been ordered to check for CO2 retention. Will check ammonia level as well. ABG will include carbon monoxide level. Check urine drug screen, urinalysis. This potentially all could be due to his noncompliance with Keppra. Will order a level, continue his home dosing. At this point observe for any seizures and place him on seizure precautions. His dosing does appear appropriate for his renal function. Following my exam he had an episode of emesis. Secondary to this, and being found down we will check CT head noncontrast. Status: Acute Code(s): G93.40 - Encephalopathy, unspecified (2) Seizure: History of recent diagnosis of seizure disorder. He has had an EEG which was normal. Status: Acute Code(s): R56.9 - Unspecified convulsions (3) Rhabdomyolysis: Appears mild. Cautious hydration secondary to CHF. Repeat level tomorrow. Status: Acute Qualifiers: Rhabdomyolysis type: non-traumatic Qualified Code(s): M62.82 - Rhabdomyolysis Code(s): M62.82 - Rhabdomyolysis Additional A&P Information Coronary artery disease with history of previous bypass. Patient denies any chest discomfort. Chronic kidney disease stage III/IV History of combined systolic and diastolic heart failure Type 2 diabetes. No evidence for hypoglycemia. Chronic back pain with history of spinal cord stimulator History of hypertension. Will arrange for hydralazine as needed Multiple other medical problems as listed in his past medical history Full code at this time Heparin for DVT prophylaxis Attestations Medical Necessity Statement*: Will need less than 2 midnight stay, for evaluation of his recurrent hospitalizations for confusion, possible postictal state, concerns with his ability to care for himself at home. Time Spent in Patient Care: Greater than 35 minutes Coding Level of Care Code Acute Display Card Writer for [facility] Fwd Diagnoses Encephalopathy G93.40 Seizure R56.9 Rhabdomyolysis M62.82 Rhabdomyolysis type: non-traumatic
--- NOTE | 2019-06-11 18:36 | CTR_ITS ---
PROCEDURE INFORMATION: Exam: CT Head Without Contrast Exam date and time: 06/11/2019 6:37 PM Age: 68 years old Clinical indication: Altered mental status/memory loss; Confusion or disorientation; Patient HX: New onset ams/confusion; Vomiting; Additional info: Vomiting, confusion TECHNIQUE: Imaging protocol: Computed tomography of the head without contrast. Total DLP: 430.97 mGy-cm Radiation optimization: All CT scans at this facility use at least one of these dose optimization techniques: automated exposure control; mA and/or kV adjustment per patient size (includes targeted exams where dose is matched to clinical indication); or iterative reconstruction. COMPARISON: CT head wo con* [id number] 06/02/2019 9:26 PM FINDINGS: Brain: Some images degraded by motion. No acute intracranial mass or bleed. Mild cerebral atrophy. Small chronic right thalamic lacunar infarction. Mild cerebral hemisphere subcortical and periventricular white matter low-density, appears chronic. Ventricles: Unremarkable, no hydrocephalus. Bones/joints: Unremarkable. No acute fracture. Sinuses: Chronic opacification of right maxillary sinus with central calcifications, unchanged. Mastoid air cells: Visualized mastoid air cells are well aerated. Soft tissues: Unremarkable. CT/CT head wo con* [id number] IMPRESSION: 1.) No acute process evident. Mild cerebral atrophy. Small chronic right thalamic lacunar infarction. Mild cerebral hemisphere subcortical and periventricular white matter low-density, appears chronic. 2.) Chronic right maxillary sinusitis. Radiation Dose CTDIVOL = (mGy): DLP = 430.97 (mGy-cm)
[2019-06-11 18:39] LABS: Ammonia 14 umol/L (16-60)
[2019-06-11 19:00] VITALS: BP 167/27; PULSE 96; RESP 26; O2SAT 90
[2019-06-11 19:04] LABS: ABG PCO2 30.2 mmHg (35-45); ABG PH Result 7.46 (7.35-7.45); Arterial Blood Gas Hematocrit 35.1 % (42-52); Base Excess ABG -1.7 mmol/L (-2.0-2.0); Blood Gas Allen Test Pos; Blood Gas Sample Site Radial, left; Blood Gas Sample Type Arterial; HCO3 ABG 21.4 mmol/L (22-26); Oxygen Device ROOM AIR; PO2 ABG 63.3 mmHg (80.0-100.0)
[2019-06-11 20:00] VITALS: BP 162/85; PULSE 93; RESP 27; O2SAT 93
--- NOTE | 2019-06-11 20:19 | PC.NURSE ---
resting quietly with eyes closed resp e/u NAD noted. easily aroused. all needs met per staff as indicated
--- NOTE | 2019-06-11 21:03 | PC.NURSE ---
report called to katie on med surg
--- NOTE | 2019-06-11 21:20 | PC.NURSE ---
Report received from Luna LOMELI in the ER. Luna states that patient has no electricity, heat or running water at his home and that the DFS (division of family services) will come tomorrow and speak with the patient.
--- NOTE | 2019-06-11 21:51 | PC.NURSE ---
ADMIT NOTE Pt to floor from ER at 2130. Is alert and able to tell me where he is and what month, day and year it is. Also able to tell me he just left the hospital on Sunday. Says [facility] but he wouldn't go. Says he got down in floor and could not get back up. Tells me he was in the floor for about 12 hours when friend found him and called for help. Side rails padded per sz precautions. Bed alarm on for pt safety. Says all he wants is a drink. Denies pain. IV PIID to left arm and will start fluids at 50ml/hr rate.
[2019-06-11 21:54] LABS: Glucose Point of Care 148 mg/dL (70-110)
--- NOTE | 2019-06-11 22:00 | PC.NURSE ---
Reviewed patient's medication list with him. Patient states that he does not and has not ever had seizures. Patient states that he does not take any medications for seizures and that l he has never taken levetiracetam. Patient did say he has a medical power of manager inventory his daughter Amelia Fernandez who lives in [place]. Phone number [phone].
[2019-06-11] MEDS: hyDRALAzine 50 mg Tablet PO (22:13)
[2019-06-11] MEDS: sodium chloride 0.9% 1,000 ML 50 ML IV (22:13)
[2019-06-11] MEDS: heparin 5,000 unit/mL INJ 1 mL 5000 UNIT SUBCUT (22:17)
--- NOTE | 2019-06-11 23:19 | PC.NURSE ---
URINE SPEC Pt says is unable to urinate and does not even remember when last time he did go. Straight cath was done per prn order and obtained stat UA ordered. 400 ml urine returned with cath
[2019-06-11 23:20] LABS: Add Urine Microscopic? NO
[2019-06-12] VITALS (7 sets, daily range): BP systolic 123–166; BP diastolic 59–92; PULSE 74–100; RESP 17–24; TEMP 36.7–38.4; O2SAT 90–96
[2019-06-12 01:30] LABS: Bilirubin Urine Neg (NEGATIVE); Blood Urine 3+ (Negative); Glucose Urine UA 1+ (Normal); Ketones Urine 1+ (Negative); Leukocyte Esterase Urine Negative (Negative); Nitrate Urine Positive (Negative); Protein Urine 3+ (Negative); Specific Gravity, Urine 1.015 (1.005-1.030); Urine Appearance Clear (CLEAR); Urine Color Yellow (Yellow); Urobilinogen Urine Norm (Negative); pH Urine 5 (5-7)
[2019-06-12 01:31] LABS: Hyaline Casts Urine 0-4
[2019-06-12 01:33] LABS: Add Urine Culture? Yes; Bacteria Urine 2+; RBC Urine 15-25 /hpf (0-2); Squamous Epithelial Cell Urine 0-4 (0-5)
[2019-06-12] MEDS: acetaminophen 325 mg Tablet 650 MG PO (04:17)
[2019-06-12 06:02] LABS: Basophils % 0.6 %; Eosinophils % 0.1 %; Hematocrit 30.1 % (42.0-52.0); Hemoglobin 9.7 g/dL (11.7-16.6); Lymphocytes # 0.6 10^3/uL (0.8-4.8); Lymphocytes % 7.9 %; Mean Corpuscular HGB Conc 32.2 g/dL (30.0-36.0); Mean Corpuscular Hemoglobin 29.8 pg (28.0-34.0); Mean Corpuscular Volume 92.6 fL (80-94); Monocytes # 0.8 10^3/uL (0.2-0.9); Monocytes % 11.5 %; Neutrophils # 5.6 10^3/uL (1.8-7.7); Neutrophils % 79.6 %; Nucleated Red Blood Cells % 0 %; Platelet Count 210 10^3/cmm (130-400); Red Blood Count 3.25 10^6/uL (4.1-5.3); Red Cell Distribution Width 12.7 % (12.1-15.1)
[2019-06-12 06:55] LABS: Alanine Aminotransferase 20 U/L (0-41); Albumin Level 2.8 g/dL (3.5-5.2); Alkaline Phosphatase 60 IU/L (40-130); Anion Gap 17.1 (5-19); Aspartate Amino Transferase 31 U/L (0-40); Blood Urea Nitrogen 34 mg/dL (8-23); Calcium 8.6 mg/dL (8.5-10.5); Carbon Dioxide 21 mmol/L (22-29); Chloride 109 mmol/L (98-107); Globulin 3.1 g/dL (1.3-4.6); Glucose 118 mg/dL (65-115); Potassium 4.1 mmol/L (3.5-5.1); Sodium 143 mmol/L (136-145); Total Bilirubin 0.3 mg/dL (0.15-1.2); Total Protein 5.9 g/dL (6.6-8.7)
[2019-06-12 06:57] LABS: Glucose Point of Care 104 mg/dL (70-110)
[2019-06-12 07:16] LABS: Creatine Phosphokinase 672 U/L (39-308)
--- NOTE | 2019-06-12 09:04 | XR_ITS ---
WS: [id number] Portable AP upright chest, 06/12/2019 Clinical Data: fever Comparison: Portable chest, 06/02/2019. Findings: No nodules, masses or effusions are seen. The heart is enlarged. The pulmonary vascularity is not increased. No pneumonia or pneumothorax is seen. Sternotomy sutures are present. There are monitor leads on the chest wall. XR/XR chest 1V portable [id number] Impression: Negative chest.
[2019-06-12] MEDS: amlodipine 10 mg Tablet PO (09:29)
[2019-06-12] MEDS: hyDRALAzine 50 mg Tablet PO ×3 (09:29→21:08)
[2019-06-12] MEDS: levETIRAcetam 500 mg Tablet PO ×2 (09:29→17:31)
[2019-06-12] MEDS: pantoprazole DR 40 mg Tablet PO (09:29)
[2019-06-12] MEDS: multivitamin therapeutic Tablet 1 TAB PO (09:30)
[2019-06-12] MEDS: aspirin 325 mg Tablet PO (09:30)
[2019-06-12] MEDS: FUROsemide 40 mg Tablet PO (09:30)
[2019-06-12] MEDS: heparin 5,000 unit/mL INJ 1 mL 5000 UNIT SUBCUT ×2 (09:33→21:09)
[2019-06-12] MEDS: cefTRIAXone 1,000 MG in sodium chloride 0.9% (plus) 50 ML 100 MG IV ×2 (09:34→21:10)
[2019-06-12 10:47] LABS: Influenza A by IFA Negative (Negative); Influenza B by IFA Negative (Negative)
[2019-06-12 11:20] LABS: Glucose Point of Care 122 mg/dL (70-110)
--- NOTE | 2019-06-12 11:23 | P.PN_ITS ---
Subjective Subjective: Interval history: Moy developed a fever last night. This morning he reports he is doing okay. He does not appear confused currently. He is agreeable to nursing facility placement. Medications: Reviewed: Yes Vitals/I&O/Wt Last Vital Signs Temp 98.1 F 06/12/19 09:05 Pulse 82 06/12/19 09:05 Resp 18 06/12/19 09:05 BP 148/70 06/12/19 09:05 Pulse Ox 93 06/12/19 09:05 06/11/19 06/12/19 06/12/19 22:59 06:59 14:59 Intake Total 107.5 / 107.5 180 / 287.5 0 / 0 Output Total 400 / 400 Balance -292.5 / -292.5 180 / -112.5 0 / 0 Weight last 48 hrs Weight 108.862 kg Physical Exam Narrative: EXAM NARRATIVE: General exam is no apparent distress, conversant Cardiovascular regular rate and rhythm without murmur Lungs clear Abdomen is obese soft with positive bowel sounds. Extremities trace bilateral edema Data : 06/12/19 05:45 06/12/19 05:45 Micro: Microbiology 06/12/19 09:34 Blood Culture - Preliminary Blood SPECIMEN COLLECTED 06/12/19 09:38 Blood Culture - Preliminary Blood SPECIMEN COLLECTED A&P Assessment and plan (1) Encephalopathy: Certainly this could represent delirium, postictal state, or potentially another etiology. ABG, ammonia level did not demonstrate any obvious etiology. It is likely he was postictal. Cannot rule out infection as a potential as well as he has started to run a fever. Urinalysis indicates possible UTI. CT head was checked and no acute changes Continue Keppra 500 mg twice daily. This dose is appropriate for his renal function Status: Acute Code(s): G93.40 - Encephalopathy, unspecified (2) Seizure: History of recent diagnosis of seizure disorder. He has had an EEG which was normal. Continue Keppra Awaiting Keppra level on admission to see if he has been compliant with treatment. Status: Acute Code(s): R56.9 - Unspecified convulsions (3) Rhabdomyolysis: Appears mild. Cautious hydration secondary to CHF. Level with slight increase. Repeat tomorrow Status: Acute Qualifiers: Encounter type: initial encounter Rhabdomyolysis type: traumatic Qual ified Code(s): T79.6XXA - Traumatic ischemia of muscle, initial encounter Code(s): M62.82 - Rhabdomyolysis Additional A&P Information Fever. Start Rocephin for possible UTI. Urine culture, blood culture. Check influenza swabs. Check chest x-ray Coronary artery disease with history of previous bypass. Patient denies any chest discomfort. Chronic kidney disease stage III/IV. This appears to be improving. History of combined systolic and diastolic heart failure, compensated currently. No ROSALIND inhibitor/ARB secondary to renal dysfunction. Lasix has been continued. Type 2 diabetes. No evidence for hypoglycemia. Chronic back pain with history of spinal cord stimulator History of hypertension. Will arrange for hydralazine as needed Multiple other medical problems as listed in his past medical history Full code at this time Heparin for DVT prophylaxis Change to regular admission Attestations Medical Necessity Statement*: Needs continued hospitalization, secondary to fever with probable UTI Coding Level of Care Code Acute Commodity Director for [facility] Diagnoses Encephalopathy G93.40 Seizure R56.9 Rhabdomyolysis T79.6XXA Encounter type: initial encounter Rhabdomyolysis type: traumatic
[2019-06-12] MEDS: sodium chloride 0.9% 1,000 ML 50 ML IV (17:31)
[2019-06-12 17:32] LABS: Glucose Point of Care 194 mg/dL (70-110)
[2019-06-12 20:40] LABS: Glucose Point of Care 230 mg/dL (70-110)
[2019-06-13] VITALS: BP 148/84; PULSE 96; RESP 18; TEMP 36.8; O2SAT 96
[2019-06-13 04:00] VITALS: BP 152/88; PULSE 95; RESP 18; TEMP 37; O2SAT 95
[2019-06-13 04:58] LABS: Basophils % 0.4 %; Eosinophils # 0.3 10^3/uL (0.0-0.8); Eosinophils % 2.4 %; Hematocrit 30.2 % (42.0-52.0); Hemoglobin 9.7 g/dL (11.7-16.6); Lymphocytes # 0.9 10^3/uL (0.8-4.8); Lymphocytes % 8.1 %; Mean Corpuscular HGB Conc 32.1 g/dL (30.0-36.0); Mean Corpuscular Hemoglobin 29.9 pg (28.0-34.0); Mean Corpuscular Volume 93.2 fL (80-94); Mean Platelet Volume 10.5 fL (7.4-10.4); Monocytes # 1.2 10^3/uL (0.2-0.9); Monocytes % 11.1 %; Neutrophils # 8.1 10^3/uL (1.8-7.7); Neutrophils % 77.5 %; Nucleated Red Blood Cells % 0 %; Platelet Count 210 10^3/cmm (130-400); Red Blood Count 3.24 10^6/uL (4.1-5.3); Red Cell Distribution Width 12.8 % (12.1-15.1); White Blood Count 10.4 10^3/uL (4.0-10.0)
[2019-06-13 05:29] LABS: Anion Gap 15.9 (5-19); Blood Urea Nitrogen 33 mg/dL (8-23); Calcium 8.3 mg/dL (8.5-10.5); Carbon Dioxide 20 mmol/L (22-29); Chloride 107 mmol/L (98-107); Glomerular Filtration Rate 17.4 mL/min (90-130); Glucose 166 mg/dL (65-115); Osmolality Calculated 289 mOsm/kg (285-295); Potassium 3.9 mmol/L (3.5-5.1); Sodium 139 mmol/L (136-145)
[2019-06-13 05:53] LABS: Creatine Phosphokinase 357 U/L (39-308)
[2019-06-13 06:37] LABS: Glucose Point of Care 150 mg/dL (70-110)
[2019-06-13 07:22] VITALS: BP 164/71; PULSE 83; RESP 24; TEMP 37.2; O2SAT 93
[2019-06-13] MEDS: FUROsemide 40 mg Tablet PO (08:16)
[2019-06-13] MEDS: aspirin 325 mg Tablet PO (08:17)
[2019-06-13] MEDS: hyDRALAzine 50 mg Tablet PO ×3 (08:17→20:50)
[2019-06-13] MEDS: pantoprazole DR 40 mg Tablet PO (08:17)
[2019-06-13] MEDS: multivitamin therapeutic Tablet 1 TAB PO (08:17)
[2019-06-13] MEDS: levETIRAcetam 500 mg Tablet PO ×2 (08:17→18:05)
[2019-06-13] MEDS: amlodipine 10 mg Tablet PO (08:18)
[2019-06-13 10:58] LABS: Glucose Point of Care 160 mg/dL (70-110)
[2019-06-13 11:19] VITALS: BP 152/86; PULSE 84; RESP 22; TEMP 37.2; O2SAT 97
--- NOTE | 2019-06-13 12:12 | PC.CHAP ---
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 talent consultant visit [] Patient/Family/Request visit [] Outpatient visit [] Follow-up visit [] Physician referral [] Code/Alert [x] Routine visit [] Staff referral [] Actively dying [] Patient sleeping [] Family support [] [] Out of room [] Palliative care [] [] Receiving care in room [] Pre-surgical visit [] Trauma [] Long length of stay [] ICU visit [] Other: Relational/Emotional Strength [x] Patient feels connected with others/family/visitors/staff [] Distress [] Loneliness/isolation [] Abandonment Spirituality of Patient [x] Person of Ghislaine [x] Attends Anglican of their [place] [x] Believes in Prayer [] Reads Bible or Presybeterian materials [] There are Spiritual issues to be addressed 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 Professor Interventions [] Prayer [x] Active listening [x] Non-anxious presence [] Spiritual/emotional support [] Crisis/trauma care [] Spiritual counseling [] Bereavement support [] Provided bereavement packet [] Provided Bible/devotional materials [] Provided toy/stuffed animal, coloring book to patient or family member [] Provided Communion [] Anointing/[place] [] Salvation [x] Completed spiritual assessment [] Other: Impact on Illness or Injury [] Angry [] Fearful [] Anxious [] Often cries [] Exhaustion [] Unable to work [] Unable to attend christian [] Unable to walk/stand [] Unable to read [] Unable to drive [] Unable to eat/drink [] Unable to sleep [] Unable to be with family [] Patient intubated [] Other: Summary patient very sore Time spent with patient 10 min
[2019-06-13] MEDS: cefTRIAXone 1,000 MG in sodium chloride 0.9% (plus) 50 ML 100 MG IV (12:41)
[2019-06-13] MEDS: acetaminophen 325 mg Tablet 650 MG PO (12:41)
[2019-06-13] MEDS: heparin 5,000 unit/mL INJ 1 mL 5000 UNIT SUBCUT (12:42)
--- NOTE | 2019-06-13 14:19 | P.PN_ITS ---
Subjective Subjective: Interval history: Moy reports he is doing okay today. No specific concerns. We discussed again that he needs to go to a nursing facility. Medications: Reviewed: Yes Vitals/I&O/Wt Last Vital Signs Temp 98.9 F 06/13/19 11:19 Pulse 84 06/13/19 11:19 Resp 22 H 06/13/19 11:19 BP 152/86 06/13/19 11:19 Pulse Ox 97 06/13/19 11:19 06/12/19 06/13/19 06/13/19 22:59 06:59 14:59 Intake Total 1205 / 1615 290 / 1905 360 / 360 Output Total 1000 / 1550 600 / 600 Balance 1205 / 1065 -710 / 355 -240 / -240 Weight last 48 hrs Weight 108.862 kg Physical Exam Narrative: EXAM NARRATIVE: General exam is no apparent distress, conversant Cardiovascular regular rate and rhythm without murmur Lungs a few faint expiratory wheezes Abdomen is obese soft with positive bowel sounds. Extremities trace bilateral edema Urinary Catheter Management^: Denise: Cath Placed During This Visit: yes Urethral Indwelling: Yes Reason for Continuing Indwelling Catheter: Acute Urinary Retention or Obstruction Urinary Catheter Date of Insertion: 06/12/19 Data : 06/13/19 04:31 06/13/19 04:31 Micro: Microbiology 06/12/19 09:34 Blood Culture - Preliminary Blood NEGATIVE TO DATE 06/12/19 09:38 Blood Culture - Preliminary Blood NEGATIVE TO DATE 06/11/19 22:50 Urine Culture - Preliminary Urine,Clean Catch Coagulase negativ staphylococc A&P Assessment and plan (1) Encephalopathy: Certainly this could represent delirium, postictal state, or potentially another etiology. ABG, ammonia level did not demonstrate any obvious etiology. It is likely he was postictal. Cannot rule out infection as a potential as well as he has started to run a fever. Urinalysis indicates possible UTI. CT head was checked and no acute changes Continue Keppra 500 mg twice daily. This dose is appropriate for his renal function Currently he is back to baseline, according to daughter but still has some cognitive delay. Status: Acute Code(s): G93.40 - Encephalopathy, unspecified (2) Seizure: History of recent diagnosis of seizure disorder. He has had an EEG which was normal. Continue Keppra Awaiting Keppra level on admission to see if he has been compliant with treatment. This is still pending He has had no evidence of seizures in the hospital Status: Acute Code(s): R56.9 - Unspecified convulsions (3) Rhabdomyolysis: Resolving. Discontinue IV fluids Status: Acute Qualifiers: Encounter type: initial encounter Rhabdomyolysis type: traumatic Qualified Code(s): T79.6XXA - Traumatic ischemia of muscle, initial encounter Code(s): M62.82 - Rhabdomyolysis Additional A&P Information Fever. Continue Rocephin. Await culture of urine. He has had no further fevers Coronary artery disease with history of previous bypass. Patient denies any chest discomfort. Chronic kidney disease stage III/IV. This appears to be improving. History of combined systolic and diastolic heart failure, compensated currently. No ROSALIND inhibitor/ARB secondary to renal dysfunction. Lasix has been continued. Type 2 diabetes. No evidence for hypoglycemia. Chronic back pain with history of spinal cord stimulator History of hypertension. Will arrange for hydralazine as needed Multiple other medical problems as listed in his past medical history Full code at this time Heparin for DVT prophylaxis Possible discharge tomorrow if remains afebrile, to skilled care tomorrow Repeat CBC and BMP tomorrow. Attestations Medical Necessity Statement*: Needs continued hospitalization for IV antibiotics secondary to fever Coding Level of Care Code Acute Steward/Stewardess Second Class for [facility] Diagnoses Encephalopathy G93.40 Seizure R56.9 Rhabdomyolysis T79.6XXA Encounter type: initial encounter Rhabdomyolysis type: traumatic
[2019-06-13 15:07] VITALS: BP 146/70; PULSE 76; RESP 22; TEMP 36.8; O2SAT 92
[2019-06-13 16:25] LABS: Glucose Point of Care 191 mg/dL (70-110)
[2019-06-13 20:00] VITALS: BP 198/104; PULSE 84; RESP 24; TEMP 36.6; O2SAT 90
[2019-06-13 21:19] LABS: Glucose Point of Care 208 mg/dL (70-110)
[2019-06-13] MEDS: FUROsemide 10 mg/mL SDV 10mL 60 MG IVP (21:56)
[2019-06-14] VITALS (15 sets, daily range): BP systolic 135–174; BP diastolic 60–97; PULSE 77–89; RESP 16–22; TEMP 36.5–37.1; O2SAT 88–95
[2019-06-14] MEDS: heparin 5,000 unit/mL INJ 1 mL 5000 UNIT SUBCUT ×3 (00:34→23:22)
[2019-06-14] MEDS: cefTRIAXone 1,000 MG in sodium chloride 0.9% (plus) 50 ML 100 MG IV ×2 (00:34→11:29)
[2019-06-14 06:05] LABS: Basophils # 0.1 10^3/uL (0.0-0.1); Basophils % 0.5 %; Eosinophils # 0.5 10^3/uL (0.0-0.8); Eosinophils % 4.5 %; Hematocrit 30.6 % (42.0-52.0); Lymphocytes # 0.9 10^3/uL (0.8-4.8); Lymphocytes % 8.3 %; Mean Corpuscular HGB Conc 32.7 g/dL (30.0-36.0); Mean Corpuscular Hemoglobin 29.9 pg (28.0-34.0); Mean Corpuscular Volume 91.3 fL (80-94); Mean Platelet Volume 10.7 fL (7.4-10.4); Monocytes # 0.9 10^3/uL (0.2-0.9); Monocytes % 8.3 %; Neutrophils # 8.5 10^3/uL (1.8-7.7); Neutrophils % 77.8 %; Nucleated Red Blood Cells % 0 %; Platelet Count 231 10^3/cmm (130-400); Red Blood Count 3.35 10^6/uL (4.1-5.3); Red Cell Distribution Width 12.6 % (12.1-15.1); White Blood Count 10.9 10^3/uL (4.0-10.0)
[2019-06-14 06:31] LABS: Anion Gap 17.8 (5-19); Blood Urea Nitrogen 36 mg/dL (8-23); Calcium 8.8 mg/dL (8.5-10.5); Carbon Dioxide 20 mmol/L (22-29); Chloride 106 mmol/L (98-107); Glomerular Filtration Rate 14.9 mL/min (90-130); Glucose 152 mg/dL (65-115); Osmolality Calculated 290 mOsm/kg (285-295); Potassium 3.8 mmol/L (3.5-5.1); Sodium 140 mmol/L (136-145)
[2019-06-14 06:43] LABS: Glucose Point of Care 134 mg/dL (70-110)
[2019-06-14] MEDS: FUROsemide 40 mg Tablet PO (09:12)
[2019-06-14] MEDS: levETIRAcetam 500 mg Tablet PO ×2 (09:12→18:18)
[2019-06-14] MEDS: multivitamin therapeutic Tablet 1 TAB PO (09:12)
[2019-06-14] MEDS: pantoprazole DR 40 mg Tablet PO (09:12)
[2019-06-14] MEDS: aspirin 325 mg Tablet PO (09:12)
[2019-06-14] MEDS: hyDRALAzine 50 mg Tablet PO ×3 (09:12→21:04)
[2019-06-14] MEDS: amlodipine 10 mg Tablet PO (09:12)
[2019-06-14] MEDS: HYDROcodone-acetaminophen 5-325 mg Tablet 1 TAB PO ×2 (09:16→18:19)
[2019-06-14 11:17] LABS: Glucose Point of Care 163 mg/dL (70-110)
--- NOTE | 2019-06-14 11:31 | XRR_ITS ---
PROCEDURE INFORMATION: Exam: XR Chest, 1 View Exam date and time: 06/14/2019 11:32 AM Age: 68 years old Clinical indication: Shortness of breath; Additional info: Dyspnea TECHNIQUE: Imaging protocol: XR of the chest Views: 1 view. COMPARISON: CR XR chest 1V portable [id number] 06/12/2019 9:25 AM FINDINGS: Lungs: There is mild pulmonary vascular congestion. There are streaky bibasilar opacities. Pleural space: There is mild blunting of the left costophrenic angle. No discernible pneumothorax. Heart/Mediastinum: Post CABG changes are noted with median sternotomy. The heart is enlarged and unchanged. Bones/joints: Unremarkable for technique. XR/XR chest 1V portable [id number] IMPRESSION: 1. Mild pulmonary vascular congestion and cardiomegaly, correlate for evidence of early CHF. 2. Streaky bibasilar opacities reflecting atelectasis versus early consolidation. 3. Mild blunting of the left costophrenic angle, reflecting atelectasis versus a small amount of pleural fluid.
[2019-06-14] MEDS: ipratropium-albuterol 3 mL Neb INHALATION ×4 (13:42→23:24)
--- NOTE | 2019-06-14 14:39 | PM.PN ---
Subjective Subjective: Interval history: Moy received an extra dose of Lasix last night, for concerns of fluid overload. He reports no complaints today other than a little shortness of breath. Medications: Reviewed: Yes Vitals/I&O/Wt Last Vital Signs Temp 98.4 F 06/14/19 11:52 Pulse 83 06/14/19 13:38 Resp 20 H 06/14/19 13:38 BP 165/60 06/14/19 11:52 Pulse Ox 94 06/14/19 13:38 06/13/19 06/14/19 06/14/19 22:59 06:59 14:59 Intake Total 480 / 890 250 / 1140 718 / 718 Output Total 650 / 1250 1300 / 2550 1000 / 1000 Balance -170 / -360 -1050 / -1410 -282 / -282 Physical Exam Narrative: EXAM NARRATIVE: General exam with mild tachypnea , conversant Cardiovascular regular rate and rhythm without murmur Lungs a few faint expiratory wheezes Abdomen is obese soft with positive bowel sounds. Extremities trace bilateral edema Urinary Catheter Management^: Denise: Cath Placed During This Visit: yes Urethral Indwelling: Yes Reason for Continuing Indwelling Catheter: Acute Urinary Retention or Obstruction Urinary Catheter Date of Insertion: 06/12/19 Data : 06/14/19 05:10 06/14/19 05:10 Micro: Microbiology 06/11/19 22:50 Urine Culture - Final Urine,Clean Catch Staphylococcus epidermidis 06/12/19 09:34 Blood Culture - Preliminary Blood NEGATIVE TO DATE 06/12/19 09:38 Blood Culture - Preliminary Blood NEGATIVE TO DATE A&P Assessment and plan (1) Encephalopathy: Certainly this could represent delirium, postictal state, or potentially another etiology. ABG, ammonia level did not demonstrate any obvious etiology. It is likely he was postictal. Cannot rule out infection as a potential as well as he has started to run a fever. Urinalysis indicates possible UTI. CT head was checked and no acute changes Continue Keppra 500 mg twice daily. This dose is appropriate for his renal function Currently he is back to baseline. Status: Acute Code(s): G93.40 - Encephalopathy, unspecified (2) Seizure: History of recent diagnosis of seizure disorder. He has had an EEG which was normal. Continue Keppra Awaiting Keppra level on admission to see if he has been compliant with treatment. This is still pending He has had no evidence of seizures in the hospital Status: Acute Code(s): R56.9 - Unspecified convulsions (3) Rhabdomyolysis: IV fluids discontinued. Resolved. Status: Acute Qualifiers: Encounter type: initial encounter Rhabdomyolysis type: traumatic Qualified Code(s): T79.6XXA - Traumatic ischemia of muscle, initial encounter Code(s): M62.82 - Rhabdomyolysis Additional A&P Information Fever. Concern of UTI. On Rocephin. Urine culture ultimately grew staph epidermidis. Will change to linezolid Coronary artery disease with history of previous bypass. Patient denies any chest discomfort. Chronic kidney disease stage III/IV. Renal function slightly worse. Hold Lasix tomorrow until review of laboratory. Repeat BMP tomorrow. History of combined systolic and diastolic heart failure, compensated currently. No ROSALIND inhibitor/ARB secondary to renal dysfunction. Lasix has been continued. Received extra dose last night. Repeat chest x-ray today per my read demonstrates no significant changes. Await radiologist read. Dyspnea. Add budesonide, nebs Type 2 diabetes. No evidence for hypoglycemia. Chronic back pain with history of spinal cord stimulator History of hypertension. Will arrange for hydralazine as needed Multiple other medical problems as listed in his past medical history Full code at this time Heparin for DVT prophylaxis Attestations Medical Necessity Statement*: Needs continued hospitalization for close monitoring secondary to acute on chronic kidney disease, UTI. Coding Level of Care Code Acute Collar Folder Operator for [facility] Diagnoses Encephalopathy G93.40 Seizure R56.9 Rhabdomyolysis T79.6XXA Encounter type: initial encounter Rhabdomyolysis type: traumatic
[2019-06-14] MEDS: linezolid 600 mg Tablet PO (15:25)
--- NOTE | 2019-06-14 16:24 | PC.PT ---
PT note; patient sleeping soundly this p.m., about 1500, PT evaluation deferred until tomorrow
[2019-06-14 17:29] LABS: Glucose Point of Care 227 mg/dL (70-110)
[2019-06-14] MEDS: budesonide 0.5 mg/2 mL Neb INHALATION (19:38)
[2019-06-14 21:26] LABS: Glucose Point of Care 300 mg/dL (70-110)
[2019-06-14] MEDS: guaiFENesin 100 mg/5 mL UDC 10 mL 200 MG PO (23:22)
[2019-06-15] VITALS (18 sets, daily range): BP systolic 134–164; BP diastolic 62–78; PULSE 76–89; RESP 18–30; TEMP 36.4–36.7; O2SAT 79–93
[2019-06-15] MEDS: HYDROcodone-acetaminophen 5-325 mg Tablet 1 TAB PO ×2 (00:24→13:56)
[2019-06-15] MEDS: linezolid 600 mg Tablet PO ×2 (02:04→13:53)
[2019-06-15] MEDS: benzonatate 100 mg Capsule PO ×3 (02:04→16:13)
[2019-06-15] MEDS: ipratropium-albuterol 3 mL Neb INHALATION ×6 (03:52→23:22)
[2019-06-15 06:22] LABS: Anion Gap 17.4 (5-19); Blood Urea Nitrogen 30 mg/dL (8-23); Calcium 8.5 mg/dL (8.5-10.5); Carbon Dioxide 20 mmol/L (22-29); Chloride 102 mmol/L (98-107); Glomerular Filtration Rate 15.8 mL/min (90-130); Glucose 200 mg/dL (65-115); Osmolality Calculated 285 mOsm/kg (285-295); Potassium 3.4 mmol/L (3.5-5.1); Sodium 136 mmol/L (136-145)
[2019-06-15 06:40] LABS: Glucose Point of Care 173 mg/dL (70-110)
[2019-06-15] MEDS: budesonide 0.5 mg/2 mL Neb INHALATION ×2 (07:10→21:04)
[2019-06-15] MEDS: pantoprazole DR 40 mg Tablet PO (09:55)
[2019-06-15] MEDS: guaiFENesin 100 mg/5 mL UDC 10 mL 200 MG PO ×3 (09:55→21:00)
[2019-06-15] MEDS: amlodipine 10 mg Tablet PO (09:55)
[2019-06-15] MEDS: multivitamin therapeutic Tablet 1 TAB PO (09:55)
[2019-06-15] MEDS: hyDRALAzine 50 mg Tablet PO ×3 (09:55→21:00)
[2019-06-15] MEDS: aspirin 325 mg Tablet PO (09:55)
[2019-06-15] MEDS: levETIRAcetam 500 mg Tablet PO ×2 (09:55→17:46)
[2019-06-15] MEDS: FUROsemide 40 mg Tablet PO ×2 (10:13→17:45)
[2019-06-15 11:27] LABS: Glucose Point of Care 180 mg/dL (70-110)
--- NOTE | 2019-06-15 12:00 | DCPLANNER ---
Pg 2 of IM explained to and signed by pt. He remembers it from the last time he was here. No questions, copy provided.
[2019-06-15] MEDS: heparin 5,000 unit/mL INJ 1 mL 5000 UNIT SUBCUT ×2 (12:23→23:56)
--- NOTE | 2019-06-15 16:50 | P.PN_ITS ---
Subjective Subjective: Interval history: Moy reported he was feeling a little bit better today. Still feels a little short of breath. Medications: Reviewed: Yes Vitals/I&O/Wt Last Vital Signs Temp 97.9 F 06/15/19 15:10 Pulse 80 06/15/19 16:03 Resp 20 H 06/15/19 16:03 BP 158/68 06/15/19 15:10 Pulse Ox 93 06/15/19 16:03 06/15/19 06/15/19 06/15/19 06:59 14:59 22:59 Intake Total 840 / 840 Output Total 400 / 2400 Balance -400 / -1682 840 / 840 Physical Exam Narrative: EXAM NARRATIVE: General exam with mild tachypnea , conversant Cardiovascular regular rate and rhythm without murmur Lungs a few faint expiratory wheezes Abdomen is obese soft with positive bowel sounds. Extremities trace bilateral edema Urinary Catheter Management^: Denise: Cath Placed During This Visit: yes Urethral Indwelling: Yes Reason for Continuing Indwelling Catheter: Acute Urinary Retention or Obstruction Urinary Catheter Date of Insertion: 06/12/19 Data : 06/14/19 05:10 06/15/19 04:50 Micro: Microbiology 06/11/19 22:50 Urine Culture - Final Urine,Clean Catch Staphylococcus epidermidis A&P Assessment and plan (1) Encephalopathy: Certainly this could represent delirium, postictal state, or potentially another etiology. ABG, ammonia level did not demonstrate any obvious etiology. It is likely he was postictal. Cannot rule out infection as a potential as well as he has started to run a fever. Urinalysis indicates possible UTI. CT head was checked and no acute changes Continue Keppra 500 mg twice daily. This dose is appropriate for his renal function Currently he is back to baseline. He has not been able to take care of himself at home, and the plan is to have hi m proceed to a nursing facility. Status: Acute Code(s): G93.40 - Encephalopathy, unspecified (2) Seizure: History of recent diagnosis of seizure disorder. He has had an EEG which was normal. Continue Keppra Awaiting Keppra level on admission to see if he has been compliant with treatment. This is still pending He has had no evidence of seizures in the hospital Status: Acute Code(s): R56.9 - Unspecified convulsions (3) Rhabdomyolysis: IV fluids discontinued. Resolved. Status: Acute Qualifiers: Encounter type: initial encounter Rhabdomyolysis type: traumatic Qualified Code(s): T79.6XXA - Traumatic ischemia of muscle, initial encounter Code(s): M62.82 - Rhabdomyolysis Additional A&P Information Fever. Concern of UTI. On Rocephin. Urine culture ultimately grew staph epidermidis. Currently on linezolid secondary to somewhat limited options secondary to renal dysfunction and history of seizures(avoidance of fluoroquinolones) Coronary artery disease with history of previous bypass. Patient denies any chest discomfort. Chronic kidney disease stage III/IV. Renal function slightly worse. Hold Lasix tomorrow until review of laboratory. Repeat BMP tomorrow. History of combined systolic and diastolic heart failure, compensated currently. No ROSALIND inhibitor/ARB secondary to renal dysfunction. Lasix has been continued. He appears to still be somewhat dyspneic. Will re-dose Lasix 40 mg p.o. now Dyspnea. Add budesonide, nebs. Secondary to concern of early pneumonia doxycycline was added Type 2 diabetes. No evidence for hypoglycemia. Chronic back pain with history of spinal cord stimulator History of hypertension. Will arrange for hydralazine as needed Multiple other medical problems as listed in his past medical history Full code at this time Heparin for DVT prophylaxis Attestations Medical Necessity Statement*: Needs continued hospitalization for close monitoring secondary to history of seizures, further diuresis secondary heart failure Coding Level of Care Code Acute Financial Retirement Plan Specialist for [facility] Diagnoses Encephalopathy G93.40 Seizure R56.9 Rhabdomyolysis T79.6XXA Encounter type: initial encounter Rhabdomyolysis type: traumatic
[2019-06-15 16:53] LABS: Glucose Point of Care 224 mg/dL (70-110)
[2019-06-15] MEDS: cefTRIAXone 1,000 MG in sodium chloride 0.9% (plus) 50 ML 100 MG IV (17:45)
[2019-06-15 19:26] LABS: Levetiracetam Keppra 3.4 mcg/mL
[2019-06-15 20:40] LABS: Glucose Point of Care 197 mg/dL (70-110)
[2019-06-16] VITALS (11 sets, daily range): BP systolic 134–162; BP diastolic 64–74; PULSE 85–93; RESP 18–36; TEMP 36.6–36.8; O2SAT 89–93
[2019-06-16] MEDS: benzonatate 100 mg Capsule PO (02:10)
[2019-06-16] MEDS: guaiFENesin 100 mg/5 mL UDC 10 mL 200 MG PO ×3 (02:10→14:17)
[2019-06-16] MEDS: linezolid 600 mg Tablet PO ×2 (02:10→14:17)
[2019-06-16] MEDS: ipratropium-albuterol 3 mL Neb INHALATION ×3 (04:19→12:42)
[2019-06-16 05:02] LABS: Basophils # 0.1 10^3/uL (0.0-0.1); Basophils % 0.8 %; Eosinophils # 0.5 10^3/uL (0.0-0.8); Eosinophils % 5.8 %; Hematocrit 28.9 % (42.0-52.0); Hemoglobin 9.2 g/dL (11.7-16.6); Lymphocytes # 0.9 10^3/uL (0.8-4.8); Lymphocytes % 10.8 %; Mean Corpuscular HGB Conc 31.8 g/dL (30.0-36.0); Mean Corpuscular Hemoglobin 29.7 pg (28.0-34.0); Mean Corpuscular Volume 93.2 fL (80-94); Mean Platelet Volume 10.9 fL (7.4-10.4); Monocytes # 0.6 10^3/uL (0.2-0.9); Monocytes % 6.9 %; Neutrophils % 74.9 %; Nucleated Red Blood Cells % 0 %; Platelet Count 279 10^3/cmm (130-400); Red Cell Distribution Width 12.8 % (12.1-15.1)
[2019-06-16 06:19] LABS: Glucose Point of Care 168 mg/dL (70-110)
[2019-06-16 06:44] LABS: Anion Gap 17.9 (5-19); Blood Urea Nitrogen 30 mg/dL (8-23); Calcium 8.5 mg/dL (8.5-10.5); Carbon Dioxide 20 mmol/L (22-29); Chloride 103 mmol/L (98-107); Glomerular Filtration Rate 15.8 mL/min (90-130); Glucose 187 mg/dL (65-115); Osmolality Calculated 286 mOsm/kg (285-295); Potassium 3.9 mmol/L (3.5-5.1); Sodium 137 mmol/L (136-145)
[2019-06-16] MEDS: cefTRIAXone 1,000 MG in sodium chloride 0.9% (plus) 50 ML 100 MG IV (07:17)
[2019-06-16] MEDS: FUROsemide 40 mg Tablet PO (07:18)
[2019-06-16] MEDS: budesonide 0.5 mg/2 mL Neb INHALATION (08:35)
[2019-06-16] MEDS: multivitamin therapeutic Tablet 1 TAB PO (09:02)
[2019-06-16] MEDS: aspirin 325 mg Tablet PO (09:02)
[2019-06-16] MEDS: hyDRALAzine 50 mg Tablet PO ×2 (09:02→14:16)
[2019-06-16] MEDS: levETIRAcetam 500 mg Tablet PO (09:02)
[2019-06-16] MEDS: amlodipine 10 mg Tablet PO (09:02)
[2019-06-16] MEDS: pantoprazole DR 40 mg Tablet PO (09:02)
[2019-06-16] MEDS: heparin 5,000 unit/mL INJ 1 mL 5000 UNIT SUBCUT (12:00)
[2019-06-16 12:47] LABS: Glucose Point of Care 182 mg/dL (70-110)
--- NOTE | 2019-06-16 13:17 | P.DS_ITS ---
Discharge Providers Date of Admission: 06/12/19 11:27 Date of Discharge: June 16, 2019 Attending Provider at Admission: Matias Young MD Attending Provider at Discharge: Guadalupe Fernandez MD Primary Care Provider: Sarah Tamayo MD Diagnoses at Discharge Discharge Diagnosis (1) Encephalopathy: Status: Acute (2) Seizure: Status: Acute (3) Rhabdomyolysis: Status: Acute Problem details: Qualifiers: Encounter type: initial encounter Rhabdomyolysis type: traumatic Qualified Code(s): T79.6XXA - Traumatic ischemia of muscle, initial encounter Reason for Visit Reason for Visit: Reason For Visit: FALL BEEN ON FLOOR FOR 12 HOURS Hospital Course Discharge Summary: Moy Fernandez is a 68 year old male who presented after apparently having a fall at home. He has had multiple similar recent episodes. There is concern that he may not be taking his medications, or perhaps even having seizures at home. He was initially confused upon admission but this later improved, raising further concern for post ictal state. Hospital course was notable for Fever with Concern of UTI vs pneumonia for which he is On Rocephin and linezolid with plan to complete a 5 day course. Urine culture ultimately grew staph epidermidis. He has a h/o coronary artery disease with history of previous bypass. Patient denies any chest discomfort. Chronic kidney disease stage III/IV. Renal function slightly worse. Received carfeul diuresis, kidney function stable at 3.8. Has a history of combined systolic and diastolic heart failure, compensated currently with iv lasix. No ROSALIND inhibitor/ARB secondary to renal dysfunction. He also remained on budesonide, nebs, supplemental 02. His mental status is at baseline, alert awake and oriented at time of discharge. Best optimized at time of discharge, though appears chronically ill. 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: no focal neuro deficits Urinary Catheter Management^: Denise: Cath Placed During This Visit: yes Urethral Indwelling: Yes Reason for Continuing Indwelling Catheter: Acute Urinary Retention or Obstruction Urinary Catheter Date of Insertion: 06/12/19 Discharge Data Data Completed and Pending: Completed Studies During Hospitalization Category Date Time Status CT head wo con* 7 0450 Urgent Cat Scan 06/11/19 18:36 Completed XR chest 1V shar ble [id number] Routine Exams 06/12/19 09:04 Completed XR chest 1V shar ble [id number] Routine Exams 06/14/19 11:31 Completed Pending at discharge Category Date Time Status Blood Culture Sta t Lab 06/12/19 09:34 Results Serum Drug Panel 7 Routine Lab 06/11/19 05:45 Received Labs from last 24 hours 06/16/19 06/16/19 06/16/19 11:25 06:15 05:21 WBC RBC Hgb Hct MCV MCH MCHC RDW Plt Count MPV Neut % (Auto) Lymph % (Auto) Mcdonough % (Auto) Eos % (Auto) Baso % (Auto) Neut # (Auto) Lymph # (Auto) Mcdonough # (Auto) Eos # (Auto) Baso # (Auto) Nucleated RBC % (a uto) Nucleated RBCs # Sodium 137 Potassium 3.9 Chloride 103 Carbon Dioxide 20 L Anion Gap 17.9 BUN 30 H Creatinine 3.8 H GFR Calculation 15.8 L Glucose 187 H POC Glucose 182 168 Calculated Osmolal ity 286 Calcium 8.5 Levetiracetam 06/16/19 06/15/19 06/15/19 04:32 20:35 16:48 WBC 8.0 RBC 3.10 L Hgb 9.2 L Hct 28.9 L MCV 93.2 MCH 29.7 MCHC 31.8 RDW 12.8 Plt Count 279 MPV 10.9 H Neut % (Auto) 74.9 Lymph % (Auto) 10.8 Mcdonough % (Auto) 6.9 Eos % (Auto) 5.8 Baso % (Auto) 0.8 Neut # (Auto) 6.0 Lymph # (Auto) 0.9 Mcdonough # (Auto) 0.6 Eos # (Auto) 0.5 Baso # (Auto) 0.1 Nucleated RBC % (a uto) 0 Nucleated RBCs # 0.0 Sodium Potassium Chloride Carbon Dioxide Anion Gap BUN Creatinine GFR Calculation Glucose POC Glucose 197 224 Calculated Osmolal ity Calcium Levetiracetam 06/11/19 15:48 WBC RBC Hgb Hct MCV MCH MCHC RDW Plt Count MPV Neut % (Auto) Lymph % (Auto) Mcdonough % (Auto) Eos % (Auto) Baso % (Auto) Neut # (Auto) Lymph # (Auto) Mcdonough # (Auto) Eos # (Auto) Baso # (Auto) Nucleated RBC % (a uto) Nucleated RBCs # Sodium Potassium Chloride Carbon Dioxide Anion Gap BUN Creatinine GFR Calculation Glucose POC Glucose Calculated Osmolal ity Calcium Levetiracetam 3.4 L Vitals: Last Vital Signs Temp 98.2 F 06/16/19 12:31 Pulse 93 06/16/19 12:49 Resp 24 H 06/16/19 12:49 BP 152/69 06/16/19 12:31 Pulse Ox 91 06/16/19 12:49 Discharge Plan Discharge Patient Disposition: er [facility] Condition: Stable Prescriptions: New acetaminophen 325 mg Tablet 650 mg PO Q6H PRN (Reason: Mild/Mod Pain Or Temp >/= 101) Qty: 0 RF: 0 aspirin 325 mg Tablet 325 mg PO DAILY 30 Days Qty: 30 RF: 0 benzonatate 100 mg Capsule 100 mg PO TID PRN (Reason: Cough) 30 Days Qty: 120 RF: 0 budesonide 0.5 mg/2 mL Suspension For Nebulization 0.5 mg inhalation BID.RESPIRATORY 30 Days Qty: 120 RF: 0 ceftriaxone 1 gram recon soln 1 gm IV Q24H 3 Days Qty: 3 RF: 0 ipratropium-albuterol 0.5 mg-3 mg(2.5 mg base)/3 mL Solution For Nebulization 3 ml inhalation Q4H.RESPIRATORY 30 Days Qty: 120 RF: 0 guaifenesin 100 mg/5 mL Liquid 200 mg PO Q4H PRN (Reason: Cough And Congestion) 30 Days Qty: 1 RF: 0 linezolid 600 mg Tablet 600 mg PO Q12H 2 Days Qty: 4 RF: 0 Continued furosemide 40 mg Tablet 40 mg PO DAILY RF: 0 hydrocodone-acetaminophen 7.5-325 mg Tablet 1 tab PO BID PRN (Reason: Pain) RF: 0 nitroglycerin 0.4 mg Tablet, Sublingual 0.4 mg SUBLINGUAL Q5M MDD 3 PRN (Reason: Chest Pain) RF: 0 omeprazole 40 mg Capsule,Delayed Release(Dr/Ec) 40 mg PO DAILY RF: 0 tramadol 50 mg Tablet 50 mg PO BID PRN (Reason: Pain) RF: 0 levetiracetam 500 mg Tablet 500 mg PO BID 30 Days Qty: 60 RF: 0 amlodipine 10 mg Tablet 10 mg PO DAILY 30 Days Qty: 30 RF: 0 multivitamin [Multiple Vitamins] Tablet 1 tab PO DAILY RF: 0 melatonin 5 mg Tablet 5 mg PO BEDTIME RF: 0 hydralazine 50 mg tablet 50 mg PO TID 30 Days Qty: 90 RF: 0 Discharge Orders: Discharge Order (Routine); Ordered 06/16/19 Ordered By: Guadalupe Fernandez Referrals: [facility] [Outside] Angelica Mcintosh MD [Physician] - 2 weeks Sarah Tamayo MD [Primary Care Provider] - 06/19/19 9:30 am Discharge Diet: Diabetic Discharge Activity: As per PT/OT instructions Patient Instructions: Benzonatate (By mouth), Acetaminophen (By mouth), Aspirin (By mouth), Guaifenesin (By mouth), Ceftriaxone (Injection), Budesonide (By breathing), Linezolid (By mouth), Rhabdomyolysis (DC), How to Use a Nebulizer (DC), Seizures Activity Restrictions/Additional Instructions: titrate suppmental 02 to keep 02 sat between 90-92% Discharge Attestations Time Spent in Discharge Care*: less than 30 min Status at Discharge: Cognitive status at discharge: cognitively intact , Behavioral status at discharge: cooperative , Quality Metrics Clinical Quality Measures During this hospital stay, did patient experience: None Coding Level of Care Code Acute Tray Service Worker for Brandy Sanchez Diagnoses Encephalopathy G93.40 Seizure R56.9 Rhabdomyolysis T79.6XXA Encounter type: initial encounter Rhabdomyolysis type: traumatic
[2019-06-16] MEDS: FUROsemide 10 mg/mL SDV 4mL 40 MG IVP (14:14)
== END 2019-06-16 14:21 | disposition skilled nursing facility (03) | DRG 565 ==
LOC: ER 19:05 → MEDSURG 20:26
PROVIDERS: Admitting Provider Internal Medicine; Emergency Provider Emergency Medicine; Family Provider Internal Medicine; PCP Internal Medicine; Visit Provider Student in an Organized Health Care Education/Training Program
DX: T79.6XXA Traumatic ischemia of muscle, initial encounter (principal); N18.4 Chronic kidney disease, stage 4 (severe); N39.0 Urinary tract infection, site not specified; G93.40 Encephalopathy, unspecified; I50.42 Chronic combined systolic (congestive) and diastolic (congestive) heart failure; E11.22 Type 2 diabetes mellitus with diabetic chronic kidney disease; R07.9 Chest pain, unspecified; G89.29 Other chronic pain; E11.42 Type 2 diabetes mellitus with diabetic polyneuropathy; G40.909 Epilepsy, unspecified, not intractable, without status epilepticus; I25.10 Atherosclerotic heart disease of native coronary artery without angina pectoris; Z95.1 Presence of aortocoronary bypass graft; Z79.82 Long term (current) use of aspirin; Z79.891 Long term (current) use of opiate analgesic; Z79.899 Other long term (current) drug therapy; X58.XXXA Exposure to other specified factors, initial encounter
CPT/HCPCS: 12345; 36415; 36416; 36600; 51702; 70450; 71045; 80048; 80053; 80177; 80307; 81001; 81003; 82140; 82550; 82803; 82962; 85025; 87040; 87077; 87086; 87186; 87804; 94640; 96372; 96375; 97110; 97161; 97530; 99283; G0378; J0696; J1644; J1815; J1940; J1953; J7030; J7626

== ENCOUNTER 2019-06-21 03:41 | Inpatient (IN) | payer MEDICARE, SELFPAY ==
[2019-06-21] VITALS (19 sets, daily range): BP systolic 123–150; BP diastolic 64–86; PULSE 65–88; RESP 8–36; TEMP 36.4–36.9; O2SAT 91–99; BMI 41.3
--- NOTE | 2019-06-21 03:43 | ED_ITS ---
HPI - SOB/Dyspnea General: Chief Complaint: Shortness of Breath/Dyspnea Stated Complaint: SOB Time Seen by Provider: 06/21/19 03:43 History of Present Illness: MD elicited complaint: shortness of breath and chest pain Pertinent past history: COPD and congestive heart failure Onset (ago): hour(s) Context: recent illness Relieving factors: nothing Associated symptoms: Reports abdominal pain and chest pain; Deny fever(s) or vomiting Treatment prior to arrival: oxygen and bronchodilator Review of Systems Const: Denies: fever ENMT: Reports: nasal congestion; Denies: throat pain Card: Reports: chest pain, edema and swelling of feet/ankles Resp: Reports: shortness of breath, productive cough, non-productive cough and wheezing GI: Reports: abdominal pain; Denies: vomiting Musc: Reports: muscle weakness Neuro: Reports: confusion and behavioral changes PFS ED PFSH: Medical History (Updated 06/21/19 @ 05:26 by Hamilton Moscoso MD) CHF (congestive heart failure) CKD (chronic kidney disease), stage III -known hx of CKD stage 3; baseline Cr is around 2 now with superimposed DOROTEO -avoid nephrotoxins, renally dose meds -continue to monitor renal function Combined systolic and diastolic congestive heart failure -has known hx of chronic combined systolic and diastolic CHF; no acute exacerbation currently -Echo (05/2018): EF=35% -stress testing in 05/2018 showing scarring with mild urmila-infarct ischemia in RCA territory Diabetes mellitus DNR (do not resuscitate) Hypertension Multilevel degenerative disc disease -has known hx of multilevel DJD, s/p spinal stimulator -hold opiates, sedating meds due to altered mental status -fall precautions -imaging reviewed, no acute findings Peripheral neuropathy Post-ictal state Rhabdomyolysis Seizure disorder Spinal cord stimulator status Spinal stenosis Type 2 diabetes mellitus Surgical History S/P CABG x 3 S/P insertion of spinal cord stimulator Social History Smoking and tobacco status: former smoker Alcohol intake: former Physical Exam Const: GENERAL APPEARANCE: well developed ORIENTATION/CONSCIOUSNESS: Yes oriented to person; not oriented to place and not oriented to time HENMT: COMMON NORMALS: external ears normal and external nose normal FACE & SINUS: normal facial exam NOSE: external nose normal and no nasal discharge EXTERNAL EAR: Yes external ears normal Eye: COMMON NORMALS: PERRL, EOMs intact bilaterally and conjunctivae normal EYELID: eyelids normal CONJUNCTIVA: Yes conjunctivae normal PUPIL: Yes PERRL Neck/C-Spine: COMMON NORMALS: full ROM GENERAL: No tracheal deviation Chest: COMMONS NORMALS: inspection of chest normal CHEST: No tenderness Resp: COMMON NORMALS: negative for clear to auscultation bilaterally EFFORT & INSPECTION: No tachypneic, Yes respiratory distress, No retractions, No uses accessory muscles and Yes tracheal deviation AUSCULTATION: not clear to auscultation bilaterally, rhonchi, wheezes and diminished lung sounds Cardio: COMMON NORMALS: regular rate and regular rhythm RATE: regular rate RHYTHM: regular rhythm HEART SOUNDS: no murmurs PERIPHERAL PULSES: radial pulses present GI: INSPECTION: Yes abdominal distension AUSCULTATION: No hyperactive bowel sounds and No hypoactive bowel sounds PALPATION: No guarding and No rigid PERCUSSION: no dullness to percussion and no tympanic to percussion Neuro: SENSORIUM/ORIENTATION: Yes oriented to person, No oriented to place and No oriented to time Psych: COMMON NORMALS: negative for mental status grossly normal Skin: COMMON NORMALS: negative for no rashes or lesions noted (bed bug sores) GENERAL SKIN EXAM: rashes and/or lesions noted (bed bug sores) Course Consultations: Consultation #1: ministerio Time: 05:39 Vital Signs: Vital signs: Vital Signs Pulse Rate 65 06/21/19 04:52 Respiratory Rate 20 H 06/21/19 04:52 Blood Pressure 123/64 06/21/19 04:52 Pulse Oximetry 98 06/21/19 04:52 MDM - SOB/Dyspnea MDM Narrative: Medical decision making narrative: 68-year-old male with a history of heart failure, encephalopathy, residential patient. He has had recent admissions. He presents with increasing shortness of breath. Chest x- ray reveals right-sided patchy infiltrates. His white blood cell count is only minimally elevated. His hemoglobin is 9.3. His BNP is 22,000. His first troponin is in the 160s. I suspect acute heart failure possibly superimposed on right-sided pneumonia. He will be treated for both. Hospitalist aware. Lab Data: Labs: Lab Results 06/21/19 06/21/1906/20/20 Range/Units 04:45 04:45 04:45 WBC 10.8 H (4.0-10.0) 10^3/ uL RBC 3.09 L (4.1-5.3) 10^6/u L Hgb 9.3 L (11.7-16.6) g/dL Hct 29.5 L (42.0-52.0) % MCV 95.5 H (80-94) fL MCH 30.1 (28.0-34.0) pg MCHC 31.5 (30.0-36.0) g/dL RDW 13.1 (12.1-15.1) % Plt Count 286 (130-400) 10^3/c mm MPV 10.2 (7.4-10.4) fL Neut % (Auto) 93.0 % Lymph % (Auto) 2.9 % Caroline % (Auto) 2.8 % Eos % (Auto) 0.1 % Baso % (Auto) 0.4 % Neut # (Auto) 10.1 H (1.8-7.7) 10^3/u L Lymph # (Auto) 0.3 L (0.8-4.8) 10^3/u L Caroline # (Auto) 0.3 (0.2-0.9) 10^3/u L Eos # (Auto) 0.0 (0.0-0.8) 10^3/u L Baso # (Auto) 0.0 (0.0-0.1) 10^3/u L Nucleated RBC % (a uto) 0 % Nucleated RBCs # 0.0 /100WBC Specimen Type Sample Site ABG pH (7.35-7.45) ABG pCO2 (35-45) mmHg ABG pO2 (80.0-100.0) mmH g ABG HCO3 (22-26) mmol/L ABG Base Excess (-2.0-2.0) mmol/ L Gabo Test Hematocrit (42-52) % Hgb O2 Saturation (95-100) % Carboxyhemoglobin (0.4-20.1) %THgb Methemoglobin (0.4-1.5) % Total Hemoglobin (14-18) g/dL O2 Delivery Device FiO2 % Trimmer Press Clippings ID Sodium 134 L (136-145) mmol/L Potassium 4.8 (3.5-5.1) mmol/L Chloride 98 (98-107) mmol/L Carbon Dioxide 19 L (22-29) mmol/L Anion Gap 21.8 H (5-19) BUN 45 H (8-23) mg/dL Creatinine 3.8 H (0.7-1.2) mg/dL GFR Calculation 15.8 L (90-130) mL/min Glucose 505 H* (65-115) mg/dL Lactate 2.9 H (0.5-2.2) mmol/L Calcium 8.7 (8.5-10.5) mg/dL Total Bilirubin 0.3 (0.15-1.2) mg/dL AST 24 (0-40) U/L ALT 31 (0-41) U/L Alkaline Phosphata se 80 (40-130) IU/L Troponin T Baselin e (0-15) ng/mL NT-Pro-B Natriuret Pep 85463 H (0-125) pg/mL Total Protein 6.3 L (6.6-8.7) g/dL Albumin 3.4 L (3.5-5.2) g/dL Globulin 2.9 (1.3-4.6) g/dL 06/21/19 06/21/19 Range/Units 04:45 04:48 WBC (4.0-10.0) 10^3/ uL RBC (4.1-5.3) 10^6/u L Hgb (11.7-16.6) g/dL Hct (42.0-52.0) % MCV (80-94) fL MCH (28.0-34.0) pg MCHC (30.0-36.0) g/dL RDW (12.1-15.1) % Plt Count (130-400) 10^3/c mm MPV (7.4-10.4) fL Neut % (Auto) % Lymph % (Auto) % Caroline % (Auto) % Eos % (Auto) % Baso % (Auto) % Neut # (Auto) (1.8-7.7) 10^3/u L Lymph # (Auto) (0.8-4.8) 10^3/u L Caroline # (Auto) (0.2-0.9) 10^3/u L Eos # (Auto) (0.0-0.8) 10^3/u L Baso # (Auto) (0.0-0.1) 10^3/u L Nucleated RBC % (a uto) % Nucleated RBCs # /100WBC Specimen Type Arterial Sample Site Radial, left ABG pH 7.25 L (7.35-7.45) ABG pCO2 45.7 H (35-45) mmHg ABG pO2 67.2 L (80.0-100.0) mmH g ABG HCO3 19.8 L (22-26) mmol/L ABG Base Excess -7.2 L (-2.0-2.0) mmol/ L Gabo Test N/a Hematocrit 31.4 L (42-52) % Hgb O2 Saturation 89.6 L (95-100) % Carboxyhemoglobin 1.1 (0.4-20.1) %THgb Methemoglobin 0.9 (0.4-1.5) % Total Hemoglobin 10.3 L (14-18) g/dL O2 Delivery Device Bipap FiO2 60.0 % Trimmer Press Clippings ID [email or web address] Sodium (136-145) mmol/L Potassium (3.5-5.1) mmol/L Chloride (98-107) mmol/L Carbon Dioxide (22-29) mmol/L Anion Gap (5-19) BUN (8-23) mg/dL Creatinine (0.7-1.2) mg/dL GFR Calculation (90-130) mL/min Glucose (65-115) mg/dL Lactate (0.5-2.2) mmol/L Calcium (8.5-10.5) mg/dL Total Bilirubin (0.15-1.2) mg/dL AST (0-40) U/L ALT (0-41) U/L Alkaline Phosphata se (40-130) IU/L Troponin T Baselin e 166 H* (0-15) ng/mL NT-Pro-B Natriuret Pep (0-125) pg/mL Total Protein (6.6-8.7) g/dL Albumin (3.5-5.2) g/dL Globulin (1.3-4.6) g/dL Critical Care Time Critical Care Time: Critical Care Time: Yes Total Critical Care Time: 40 Attestation: This case had a high probability of a clinically significant, sudden, or life threatening deterioration of this patient's condition which required my full and direct attention, intervention and personal management. Discharge Plan Discharge Prescriptions: No Action acetaminophen 325 mg Tablet 650 mg PO Q6H PRN (Reason: Mild/Mod Pain Or Temp >/= 101) Qty: 0 RF: 0 aspirin 325 mg Tablet 325 mg PO DAILY 30 Days Qty: 30 RF: 0 guaifenesin 100 mg/5 mL Liquid 200 mg PO Q4H PRN (Reason: Cough And Congestion) 30 Days Qty: 1 RF: 0 furosemide 40 mg Tablet 40 mg PO DAILY RF: 0 levetiracetam 500 mg Tablet 500 mg PO BID 30 Days Qty: 60 RF: 0 amlodipine 10 mg Tablet 10 mg PO DAILY 30 Days Qty: 30 RF: 0 hydrocodone-acetaminophen 5-325 mg Tablet 1 tab PO BID PRN (Reason: Pain) RF: 0 Milk of Magnesia 400 mg/5 mL Suspension 30 ml PO DAILY PRN (Reason: Constipation) RF: 0 Tamiflu 30 mg Capsule 30 mg PO BID RF: 0 Coding Level of Care Code ED Farm Demonstrator for Chg Fwd Exam Comprehensive
--- NOTE | 2019-06-21 03:54 | XR_ITS ---
WS: [id number] XR chest 1V portable [id number] REASON FOR EXAM: sob FINDINGS: Right pleural effusion. Right upper lung pneumonia and low-grade right lower lung pneumonia . Cardiomegaly. Sternotomy changes. In the thoracic spine SCS electrodes appear to be evident. XR/XR chest 1V portable [id number] IMPRESSION: Right upper and lower pneumonias Right pleural effusion Cardiomegaly. Sternotomy changes
--- NOTE | 2019-06-21 03:56 | ECG_ITS ---
Measurements Intervals [place] Rate: 77 P: 44 NE: 148 QRS: 6 QRSD: 114 T: 74 QT: 456 QTc: 518 SINUS RHYTHM POSSIBLE LEFT ATRIAL ENLARGEMENT [-0.1mV P WAVE IN V1/V2] MODERATE INTRAVENTRICULAR CONDUCTION DELAY [110+ ms QRS DURATION] NONSPECIFIC ST & T-WAVE ABNORMALITY PROLONGED QT INTERVAL Compared to ECG 06/02/2019 20:36:42 Intraventricular conduction delay now present T-wave abnormality now present Prolonged QT interval now present Ventricular premature complex(es) no longer present Myocardial infarct finding no longer present Electronically Signed On 06-21-2019 19:04:15 SPECIALTY PERSON by Hamilton Pearce M.D. [id number]
--- NOTE | 2019-06-21 04:00 | PC.NURSE ---
pt placed on bipap ventilation
--- NOTE | 2019-06-21 04:26 | PC.NURSE ---
portable chest xray at bedside
[2019-06-21] MEDS: FUROsemide 10 mg/mL SDV 10mL 80 MG IVP (04:48)
[2019-06-21 04:54] LABS: ABG PCO2 45.7 mmHg (35-45); ABG PH Result 7.25 (7.35-7.45); Arterial Blood Gas Hematocrit 31.4 % (42-52); Base Excess ABG -7.2 mmol/L (-2.0-2.0); Blood Gas Sample Site Radial, left; Blood Gas Sample Type Arterial; Carboxyhemoglobin 1.1 %THgb (0.4-20.1); HCO3 ABG 19.8 mmol/L (22-26); HGB O2 Sat 89.6 % (95-100); Methemoglobin 0.9 % (0.4-1.5); Oxygen Device BIPAP; PO2 ABG 67.2 mmHg (80.0-100.0); Total Hemoglobin 10.3 g/dL (14-18)
[2019-06-21 04:56] LABS: Basophils % 0.4 %; Eosinophils % 0.1 %; Hematocrit 29.5 % (42.0-52.0); Hemoglobin 9.3 g/dL (11.7-16.6); Lymphocytes # 0.3 10^3/uL (0.8-4.8); Lymphocytes % 2.9 %; Mean Corpuscular HGB Conc 31.5 g/dL (30.0-36.0); Mean Corpuscular Hemoglobin 30.1 pg (28.0-34.0); Mean Corpuscular Volume 95.5 fL (80-94); Mean Platelet Volume 10.2 fL (7.4-10.4); Monocytes # 0.3 10^3/uL (0.2-0.9); Monocytes % 2.8 %; Neutrophils # 10.1 10^3/uL (1.8-7.7); Nucleated Red Blood Cells % 0 %; Platelet Count 286 10^3/cmm (130-400); Red Blood Count 3.09 10^6/uL (4.1-5.3); Red Cell Distribution Width 13.1 % (12.1-15.1); White Blood Count 10.8 10^3/uL (4.0-10.0)
[2019-06-21 05:08] LABS: Lactate (Lactic Acid level) 2.9 mmol/L (0.5-2.2)
[2019-06-21 05:14] LABS: Troponin(5th) Baseline 166 ng/mL (0-15)
--- NOTE | 2019-06-21 05:14 | P.HP_ITS ---
Providers/Chief Complaint Primary Care Provider: Sarah Tamayo MD Chief Complaint: SOB History of Present Illness Moy Fernandez is a 68 year old male who carries diagnosis of reduced ejection fraction heart failure with diastolic dysfunction, chronic kidney stage III, recurrent seizures, encephalopathy, type 2 diabetes, hypertension was sent in by [facility] because of shortness of breath and confusion. I have t ried to call [place] twice, no one has answered my call. Diagnostics in ER showed sepsis secondary to hospital-acquired pneumonia he was hospitalized within the last 90 days and was treated with ceftriaxone and linezolid, urine culture at that time which grew staph epidermidis he was discharged to [facility] Diagnostic shows leukocytosis, high lactic acid, altered mental status, hy percapnic respiratory failure, basilar congestion and infiltrate on chest imaging Review of Systems General: Reports: ROS unobtainable due to mental status and other (Patient is on BiPAP and not really doing any reliable history or review of symptoms) Medications/Allergies Home Medications Medication Instructions Recorded Confirmed Last Taken Type hydrocodone-acetaminophen 1 tab PO BID PRN 06/21/19 06/21/19 Unknown History magnesium hydroxide [Milk of 30 ml PO DAILY PRN 06/21/19 06/21/19 Unknown History Magnesia] oseltamivir [Tamiflu] 30 mg PO BID 06/21/19 06/21/19 Unknown History Allergies Allergy/AdvReac Type Severity Reaction Status Date / Time No Known Allergies Allergy Verified 05/23/19 10:46 PFSH Acute PFSH: Medical History CHF (congestive heart failure) CKD (chronic kidney disease), stage III -known hx of CKD stage 3; baseline Cr is around 2 now with superimposed DOROTEO -avoid nephrotoxins, renally dose meds -continue to monitor renal function Combined systolic and diastolic congestive heart failure -has known hx of chronic combined systolic and diastolic CHF; no acute exacerbation currently -Echo (05/2018): EF=35% -stress testing in 05/2018 showing scarring with mild urmila-infarct ischemia in RCA territory Diabetes mellitus Hypertension Multilevel degenerative disc disease -has known hx of multilevel DJD, s/p spinal stimulator -hold opiates, sedating meds due to altered mental status -fall precautions -imaging reviewed, no acute findings Peripheral neuropathy Post-ictal state Rhabdomyolysis Seizure disorder Spinal cord stimulator status Spinal stenosis Type 2 diabetes mellitus Surgical History S/P CABG x 3 S/P insertion of spinal cord stimulator Social History Smoking and tobacco status: former smoker Alcohol intake: former Vitals/I&O/Wt Last Vital Signs Pulse 65 06/21/19 04:52 Resp 20 H 06/21/19 04:52 BP 123/64 06/21/19 04:52 Pulse Ox 98 06/21/19 04:52 Weight last 48 hrs Weight 116.12 kg Physical Exam Narrative: EXAM NARRATIVE: Morbidly obese male currently in very drowsy state on BiPAP setting 02/02 Afebrile, systolic blood pressure 120 He is opening his eyes to sternal rub Assisted bilateral breath sounds with bronchial breathing and not able to hear any wheezing Abdomen is distended, with obesity, nontender hard to assess organomegaly, bowel sounds present Heart assess his neurological status because of drowsiness Bilateral lower extremity 2+ pitting edema However skin is not showing any sign ischemia gangrene or ulcer Multiple hyperemic skin rash/ulcer possibly bedbugs Data : 06/21/19 04:45 Micro: Microbiology 06/21/19 04:26 Blood Culture - Preliminary Blood SPECIMEN COLLECTED 06/21/19 04:45 Blood Culture - Preliminary Blood SPECIMEN COLLECTED A&P Assessment and plan (1) Hospital-acquired pneumonia: Status: Acute Code(s): J18.9 - Pneumonia, unspecified organism; Y95 - Nosocomial condition (2) Hypercapnic respiratory failure: Status: Acute Code(s): J96.92 - Respiratory failure, unspecified with hypercapnia (3) Acute exacerbation of congestive heart failure: Status: Acute Code(s): I50.9 - Heart failure, unspecified Additional A&P Information Sepsis secondary to hospital-acquired pneumonia He was hospitalized within the last 90 days and was treated with IV antibiotics Right middle lobe pneumonia Sepsis criteria met with leukocytosis, high lactic acid, tachypnea Judicious use of fluids, vancomycin and cefepime to be renally dosed Blood culture, Acute exacerbation of combined systolic diastolic congestive heart failure due to pneumonia Clinically fluid overloaded, high BNP I would use Bumex 1 mg twice a day EF 35% He will probably need a Denise catheter as he is obtunded and has adult diapers for accurate urine output measurement Chronic kidney disease stage III I believe his new baseline creatinine is around 3.5-3.8 Closely monitor kidney function status Type 2 diabetes: Poorly controlled, hyperglycemia Sliding scale Consistent carbohydrate diet Encephalopathy secondary to sepsis Patient is DNR Currently arousable to sternal rub on BiPAP History of recurrent seizures: No Active tonic-clonic seizures noticed Attestations Medical Necessity Statement*: Anticipating stay in the hospital rather than 2 midnights, as hospital-acquired pneumonia and exacerbation of congestive heart failure Time Spent in Patient Care: 45 Coding Level of Care Code Acute Booster Plant Operator for [facility] Fwd Diagnoses Hospital-acquired pneumonia J18.9; Y95 Hypercapnic respiratory failure J96.92 Acute exacerbation of congestive heart failure I50.9
[2019-06-21 05:20] LABS: Alanine Aminotransferase 31 U/L (0-41); Albumin Level 3.4 g/dL (3.5-5.2); Alkaline Phosphatase 80 IU/L (40-130); Anion Gap 21.8 (5-19); Aspartate Amino Transferase 24 U/L (0-40); Blood Urea Nitrogen 45 mg/dL (8-23); Calcium 8.7 mg/dL (8.5-10.5); Carbon Dioxide 19 mmol/L (22-29); Chloride 98 mmol/L (98-107); Globulin 2.9 g/dL (1.3-4.6); Glomerular Filtration Rate 15.8 mL/min (90-130); Potassium 4.8 mmol/L (3.5-5.1); Sodium 134 mmol/L (136-145); Total Bilirubin 0.3 mg/dL (0.15-1.2); Total Protein 6.3 g/dL (6.6-8.7)
[2019-06-21 05:21] LABS: Glucose 505 mg/dL (65-115)
[2019-06-21] MEDS: levofloxacin-dextrose 5 % 750 MG/150 ML PREMIX 150 MG IV (05:46)
[2019-06-21 06:16] LABS: Influenza A by IFA Negative (Negative); Influenza B by IFA Negative (Negative)
[2019-06-21 06:47] LABS: Glucose Point of Care 452 mg/dL (70-110)
[2019-06-21] MEDS: ipratropium-albuterol 3 mL Neb INHALATION (08:12)
[2019-06-21] MEDS: heparin 5,000 unit/mL INJ 1 mL 5000 UNIT SUBCUT ×2 (09:10→18:01)
[2019-06-21] MEDS: bumetanide 0.25 mg/mL SDV 10 mL 1 MG IV ×2 (09:27→20:52)
[2019-06-21] MEDS: aspirin 325 mg Tablet PO (09:30)
[2019-06-21] MEDS: levETIRAcetam 500 mg Tablet PO ×2 (09:31→18:01)
--- NOTE | 2019-06-21 09:56 | ECG_ITS ---
Measurements Intervals [place] Rate: 65 P: 16 [place]: 141 QRS: 10 QRSD: 121 T: 81 QT: 518 QTc: 541 SINUS RHYTHM POSSIBLE LEFT ATRIAL ENLARGEMENT [-0.1mV P WAVE IN V1/V2] MODERATE INTRAVENTRICULAR CONDUCTION DELAY [110+ ms QRS DURATION] NONSPECIFIC ST & T-WAVE ABNORMALITY PROLONGED QT INTERVAL Compared to ECG 06/02/2019 20:36:42 There is no significant change Electronically Signed On 06-21-2019 19:06:45 TRAFFIC PERSONNEL SUPERVISOR by Hamilton Pearce M.D. [id number]
[2019-06-21] MEDS: cefepime 1,000 MG in sodium chloride 0.9% (plus) 50 ML 100 MG IV (10:31)
[2019-06-21 11:29] LABS: Glucose Point of Care 567 mg/dL (70-110)
--- NOTE | 2019-06-21 13:13 | PC.CHAP ---
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 veneer trimmer visit [] Patient/Family/Request visit [] Outpatient visit [] Follow-up visit [] Physician referral [] Code/Alert [] Routine visit [] Staff referral [] Actively dying [] Patient sleeping [] Family support [] [] Out of room [] Palliative care [] [X] Receiving care in room [] Pre-surgical visit [] Trauma [] Long length of stay [] ICU visit [] Other: Relational/Emotional Strength [] Patient feels connected with others/family/visitors/staff [] Distress [] Loneliness/isolation [] Abandonment Spirituality of Patient [] Person of Ghislaine [] Attends Anglican of their Ghislaine [] Believes in Prayer [] Reads Bible or Baptist materials [] There are Spiritual issues to be addressed Transplanter Orchid Interventions [] Prayer [] Active listening [] Non-anxious presence [] Spiritual/emotional support [] Crisis/trauma care [] Spiritual counseling [] Bereavement support [] Provided bereavement packet [] Provided Bible/devotional materials [] Provided toy/stuffed animal, coloring book to patient or family member [] Provided Communion [] Anointing/[place] [] Salvation [] Completed spiritual assessment [] Other: Impact on Illness or Injury [] Angry [] Fearful [] Anxious [] Often cries [] Exhaustion [] Unable to work [] Unable to attend nondenominational [] Unable to walk/stand [] Unable to read [] Unable to drive [] Unable to eat/drink [] Unable to sleep [] Unable to be with family [] Patient intubated [] Other: Summary NEED FOLLOW UP NEXT DAY Time spent with patient
[2019-06-21 16:19] LABS: Glucose Point of Care 170 mg/dL (70-110)
[2019-06-21 22:39] LABS: Glucose Point of Care 109 mg/dL (70-110)
[2019-06-22] VITALS (12 sets, daily range): BP systolic 134–146; BP diastolic 69–81; PULSE 74–94; RESP 18–24; TEMP 36.4–37.2; O2SAT 93–97
[2019-06-22 00:35] LABS: Glucose Point of Care 159 mg/dL (70-110)
--- NOTE | 2019-06-22 01:29 | PC.NURSE ---
patient found calling out for nurses, he was sweaty and stat lock and leads were not sticking to him. we took his blood sugar again 9earlier it was 109 so no insuline needed) and this time it was 159. the room was hot so the thermostat turned down to 70 and blankets taken off but a sheet. will monitor to make sure patient is comfortable.
[2019-06-22] MEDS: heparin 5,000 unit/mL INJ 1 mL 5000 UNIT SUBCUT ×3 (03:35→18:05)
[2019-06-22 06:46] LABS: Glucose Point of Care 132 mg/dL (70-110)
[2019-06-22] MEDS: ipratropium-albuterol 3 mL Neb INHALATION (07:55)
[2019-06-22] MEDS: bumetanide 0.25 mg/mL SDV 10 mL 1 MG IV ×2 (09:10→20:53)
[2019-06-22] MEDS: levETIRAcetam 500 mg Tablet PO ×2 (10:05→18:05)
[2019-06-22] MEDS: aspirin 325 mg Tablet PO (10:05)
[2019-06-22] MEDS: cefepime 1,000 MG in sodium chloride 0.9% (plus) 50 ML 100 MG IV (10:20)
[2019-06-22 11:48] LABS: Glucose Point of Care 155 mg/dL (70-110)
--- NOTE | 2019-06-22 12:09 | PC.CHAP ---
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 die maker visit [] Patient/Family/Request visit [] Outpatient visit [] Follow-up visit [] Physician referral [] Code/Alert [] Routine visit [] Staff referral [] Actively dying [] Patient sleeping [] Family support [] [] Out of room [] Palliative care [] [] Receiving care in room [] Pre-surgical visit [] Trauma [] Long length of stay [] ICU visit [] Other: Relational/Emotional Strength [x] Patient feels connected with others/family/visitors/staff [] Distress [] Loneliness/isolation [] Abandonment Spirituality of Patient [x] Person of Ghislaine [] Attends Sikhism of their Ghislaine [x] Believes in Prayer [] Reads Bible or Anabaptist materials [] There are Spiritual issues to be addressed Home Organizer Interventions [x] Prayer [x] Active listening [x] Non-anxious presence [x] Spiritual/emotional support [] Crisis/trauma care [] Spiritual counseling [] Bereavement support [] Provided bereavement packet [] Provided Bible/devotional materials [] Provided toy/stuffed animal, coloring book to patient or family member [] Provided Communion [] Anointing/[place] [] Salvation x] Completed spiritual assessment [] Other: Impact on Illness or Injury [] Angry [] Fearful [] Anxious [] Often cries [] Exhaustion [] Unable to work [] Unable to attend jehovah's witness [] Unable to walk/stand [] Unable to read [] Unable to drive [] Unable to eat/drink [] Unable to sleep [] Unable to be with family [] Patient intubated [] Other: Summary After Nurse allowed Patient off cpap, Chaplains prayed with Chaplains. Time spent with patient 15 minutes.
[2019-06-22 16:27] LABS: Glucose Point of Care 142 mg/dL (70-110)
[2019-06-22 20:36] LABS: Vancomycin Trough 11.7 ug/mL (10-15)
[2019-06-23] VITALS (15 sets, daily range): BP systolic 132–168; BP diastolic 64–83; PULSE 75–95; RESP 13–27; TEMP 36.4–37.3; O2SAT 92–97
[2019-06-23 00:52] LABS: Glucose Point of Care 157 mg/dL (70-110)
[2019-06-23] MEDS: heparin 5,000 unit/mL INJ 1 mL 5000 UNIT SUBCUT ×3 (02:42→18:12)
[2019-06-23 06:33] LABS: Glucose Point of Care 127 mg/dL (70-110)
[2019-06-23] MEDS: ipratropium-albuterol 3 mL Neb INHALATION ×4 (08:16→23:30)
[2019-06-23] MEDS: cefepime 1,000 MG in sodium chloride 0.9% (plus) 50 ML 100 MG IV (09:09)
[2019-06-23] MEDS: aspirin 325 mg Tablet PO (09:10)
[2019-06-23] MEDS: levETIRAcetam 500 mg Tablet PO ×2 (09:10→18:12)
[2019-06-23] MEDS: bumetanide 0.25 mg/mL SDV 10 mL 1 MG IV (09:34)
[2019-06-23 11:00] LABS: Glucose Point of Care 142 mg/dL (70-110)
--- NOTE | 2019-06-23 16:29 | XR_ITS ---
WS: [id number] Portable AP upright chest, 06/23/2019 Clinical Data: pneumonia Comparison: Portable chest, 06/21/2019. Findings: The right lung opacity consistent with acute pneumonia has not changed. There is minimal le ft lower lobe opacity which may represent left lower lobe pneumonia. On the left upper lobe is clear. The heart size is enlarged. midline sternotomy sutures are noted. Monitor leads on the chest wall. N o nodules or masses are seen. There is a small electronic device overlying the left cardiac border wh ich has been present on the previous film. XR/XR chest 1V portable [id number] Impression: 1. Bilateral opacities consistent with pneumonia unchanged. 2. No change in heart size.
--- NOTE | 2019-06-23 16:30 | PM.PN ---
Subjective Subjective: Interval history: It appears that no note was written on Mr. Fernandez yesterday. I have picked him up today. He denies any specific concerns other than shortness of breath when he takes his BiPAP off. He denies any chest discomfort. History and physical was reviewed. Medications: Reviewed: Yes Vitals/I&O/Wt Last Vital Signs Temp 98.2 F 06/23/19 15:31 Pulse 76 06/23/19 15:31 Resp 20 H 06/23/19 15:31 BP 132/78 06/23/19 15:31 Pulse Ox 96 06/23/19 15:31 06/23/19 06/23/19 06/23/19 06:59 14:59 22:59 Intake Total 360 / 360 Output Total 325 / 1675 Balance -325 / -1505 360 / 360 Physical Exam Narrative: EXAM NARRATIVE: General exam is a white male on BiPAP, currently without complaint Cardiovascular regular rate and rhythm Lungs diminished breath sounds bilaterally. They are markedly diminished right greater than left Abdomen is soft with positive bowel sounds Extremities 2+ edema bilaterally Urinary Catheter Management^: Denise: Cath Placed During This Visit: yes Reason for Continuing Indwelling Catheter: Chronic Indwelling Urinary Catheter on Admission Urinary Catheter Date of Insertion: 06/21/19 Urinary Catheter Time of Insertion: 10:55 Data : 06/21/19 04:45 06/21/19 04:45 A&P Assessment and plan (1) Hospital-acquired pneumonia: Right lung, upper and lower lobe. Associated with right pleural effusion. Last hospital stay there was concern of possible seizure prior to admission. Must consider aspiration. To his cefepime and vancomycin Repeat chest x-ray tomorrow Status: Acute Code(s): J18.9 - Pneumonia, unspecified organism; Y95 - Nosocomial condition (2) Hypercapnic respiratory failure: Secondary to above Status: Acute Code(s): J96.92 - Respiratory failure, unspecified with hypercapnia (3) Acute exacerbation of congestive heart failure: Continue Bumex IV Check echocardiogram. Past ejection fraction around 35%. Check BMP Continue Denise for adequate DONNY measurement with diuresis Status: Acute Code(s): I50.9 - Heart failure, unspecified Additional A&P Information Sepsis, resolved. Presumably secondary to pneumonia. Chronic kidney disease stage III. Repeat BMP today Type 2 diabetes. Sliding scale insulin. Encephalopathy, improving History of seizure disorder, on Keppra DNR Heparin for DVT prophylaxis Attestations Medical Necessity Statement*: Needs continued hospitalization, for IV antibiotics regarding pneumonia Coding Level of Care Code Acute Staff Training And Development Manager for g Fwd Diagnoses Hospital-acquired pneumonia J18.9; Y95 Hypercapnic respiratory failure J96.92 Acute exacerbation of congestive heart failure I50.9
--- NOTE | 2019-06-23 16:32 | USCV_ITS ---
Moy Fernandez Age: 69 Gender: M : 1950 Exam Date: 06/23/2019 18:28 Ordering Phys: Matias Young MD Technologist: Rosalee Hansen Exam Location: [facility] [place] Indication: CVA BP: / HR: 91 Rhythm: Sinus Technical Quality: Suboptimal MEASUREMENTS (Male / Female) Normal Values 2D ECHO LV Diastolic Diameter PLAX 5.2 cm 4.2 - 5.9 / 3.9 - 5.3 cm LV Systolic Diameter PLAX 4.1 cm LV Chamber Size 4.1 cm IVS Diastolic Thickness 1.0 cm 0.6 - 1.0 / 0.6 - 0.9 cm IVS Systolic Thickness 1.3 cm LVPW Diastolic Thickness 1.9 cm 0.6 - 1.0 / 0.6 - 0.9 cm LVPW Systolic Thickness 2.7 cm RV Chamber Size 2.5 cm LVOT Diameter 2.0 cm LV Ejection Fraction 2D Teich 42.5 % LV Ejection Fraction MOD 2C 45.9 % LV Ejection Fraction 2C AL 44.8 % LA Diameter 4.8 cm LA Width 3.8 cm LA Height 5.2 cm RA Width 2.8 cm RA Height 4.2 cm Aorta at Sinotubular Diameter 3.1 cm M-MODE LV Diastolic Diameter MM 6.3 cm 4.2 - 5.9 / 3.9 - 5.3 cm LV Systolic Diameter MM 3.8 cm LV Ejection Fraction MM Teich 68.6 % IVS Diastolic Thickness MM 1.1 cm 0.6 - 1.0 / 0.6 - 0.9 cm IVS Systolic Thickness MM 1.6 cm LVPW Diastolic Thickness MM 1.2 cm 0.6 - 1.0 / 0.6 - 0.9 cm LVPW Systolic Thickness MM 1.9 cm Aortic Annulus Diameter 3.7 cm LA Ao Ratio MM 1.3 MV E Point Septal Separation 1.2 cm DOPPLER AV Peak Velocity 152.0 cm/s LVOT Peak Velocity 117.0 cm/s AV Area Cont Eq vti 2.3 cm squared AV Area Cont Eq pk 2.4 cm squared MV Area PHT 7.9 cm squared Mitral E to A Ratio 1.5 MV E' Velocity 10.0 cm/s Mitral E to MV E' Ratio 13.5 Mitral E to LV E' Lateral Ratio 13.7 Mitral E to LV E' Septal Ratio 13.4 TR Peak Velocity 165.0 cm/s TR Peak Gradient 10.8 mmHg TV Peak E Velocity 77.0 cm/s Right Atrial Pressure 3.0 mmHg Pulmonary Artery Systolic Pressu 13.9 mmHg PV Peak Velocity 80.0 cm/s RV Acceleration Time 0.1 s RV Ejection Time 0.4 s RV AcT/ET 0.3 FINDINGS Left Ventricle Normal left ventricular cavity size. Normal left ventricular wall thickness. Mildly decreased left ventricular systolic function. Grade II/IV diastolic dysfunction, moderately elevated filling pressures. Mild hypokinesis of the anterior wall, apex and lateral wall. Ejection fraction estimated 45%. Right Ventricle Normal right ventricular size and systolic function. Normal right ventricular systolic pressure. Right Atrium Mildly increased right atrial size. Left Atrium Moderately increased left atrial size. Mitral Valve Structurally normal mitral valve. Mild mitral valve regurgitation. Aortic Valve Structurally normal trileaflet aortic valve. Aortic valve sclerosis without stenosis or regurgitation. Mild aortic valve calcification. Tricuspid Valve Structurally normal tricuspid valve. Trace to mild tricuspid valve regurgitation. Pulmonic Valve Pulmonic valve not well visualized. Pericardium Normal pericardium without effusion. Aorta Normal ascending aorta dimension. CONCLUSIONS Normal left ventricular cavity size. Normal left ventricular wall thickness. Mildly decreased left ventricular systolic function. Grade II/IV diastolic dysfunction, moderately elevated filling pressures. Mild hypokinesis of the anterior wall, apex and lateral wall. Ejection fraction estimated 45%. Mildly increased right atrial size. Moderately increased left atrial size. Structurally normal mitral valve. Mild mitral valve regurgitation. There are no prior echocardiogram studies to compare. Dr. Heri Maria MD (Electronically Signed) Final Date: 24 June 2019 18:21 S
[2019-06-23 16:57] LABS: Glucose Point of Care 154 mg/dL (70-110)
[2019-06-23 17:27] LABS: Basophils % 0.1 %; Eosinophils % 0.3 %; Hematocrit 27.3 % (42.0-52.0); Hemoglobin 8.6 g/dL (11.7-16.6); Lymphocytes # 0.7 10^3/uL (0.8-4.8); Lymphocytes % 8.9 %; Mean Corpuscular HGB Conc 31.5 g/dL (30.0-36.0); Mean Corpuscular Hemoglobin 29.5 pg (28.0-34.0); Mean Corpuscular Volume 93.5 fL (80-94); Mean Platelet Volume 10.1 fL (7.4-10.4); Monocytes # 0.8 10^3/uL (0.2-0.9); Monocytes % 9.8 %; Neutrophils # 6.3 10^3/uL (1.8-7.7); Neutrophils % 80.3 %; Nucleated Red Blood Cells % 0 %; Platelet Count 218 10^3/cmm (130-400); Red Blood Count 2.92 10^6/uL (4.1-5.3); Red Cell Distribution Width 13.6 % (12.1-15.1); White Blood Count 7.9 10^3/uL (4.0-10.0)
[2019-06-23 18:05] LABS: Blood Urea Nitrogen 74 mg/dL (8-23); Calcium 8.8 mg/dL (8.5-10.5); Carbon Dioxide 22 mmol/L (22-29); Chloride 104 mmol/L (98-107); Glucose 173 mg/dL (65-115); Osmolality Calculated 294 mOsm/kg (285-295); Sodium 140 mmol/L (136-145)
[2019-06-23] MEDS: metroNIDAZOLE IV 500 MG/100 ML PREMIX 100 MG IV (18:11)
[2019-06-23 23:07] LABS: Glucose Point of Care 194 mg/dL (70-110)
[2019-06-24] VITALS (22 sets, daily range): BP systolic 143–168; BP diastolic 73–81; PULSE 70–92; RESP 19–28; TEMP 36.6–37.1; O2SAT 90–96
[2019-06-24] MEDS: heparin 5,000 unit/mL INJ 1 mL 5000 UNIT SUBCUT ×3 (02:46→17:13)
[2019-06-24] MEDS: metroNIDAZOLE IV 500 MG/100 ML PREMIX 100 MG IV ×4 (02:46→21:25)
[2019-06-24] MEDS: ipratropium-albuterol 3 mL Neb INHALATION ×6 (03:37→23:40)
[2019-06-24 06:21] LABS: Blood Urea Nitrogen 67 mg/dL (8-23); Calcium 8.7 mg/dL (8.5-10.5); Carbon Dioxide 21 mmol/L (22-29); Chloride 106 mmol/L (98-107); Glucose 135 mg/dL (65-115); Osmolality Calculated 293 mOsm/kg (285-295); Sodium 141 mmol/L (136-145)
[2019-06-24 06:59] LABS: Glucose Point of Care 128 mg/dL (70-110)
[2019-06-24] MEDS: aspirin 325 mg Tablet PO (08:16)
[2019-06-24] MEDS: levETIRAcetam 500 mg Tablet PO ×2 (08:16→17:13)
--- NOTE | 2019-06-24 09:55 | PC.SOCIAL ---
IMM Page 2 of IMM explained to and signed by patient with [employer] insurance number provided. Initialed, dated, and timed and placed in chart. Copy provided to patient.
[2019-06-24] MEDS: FUROsemide 40 mg Tablet PO ×2 (10:57→15:27)
[2019-06-24] MEDS: linezolid premix 600 MG/300 ML PREMIX 300 MG IV ×2 (10:57→23:41)
[2019-06-24 11:26] LABS: Glucose Point of Care 180 mg/dL (70-110)
--- NOTE | 2019-06-24 13:23 | PM.PN ---
Subjective Subjective: Interval history: Moy reports he might be a little bit better today. He is still on BiPAP. Medications: Reviewed: Yes Vitals/I&O/Wt Last Vital Signs Temp 98.2 F 06/24/19 11:16 Pulse 88 06/24/19 12:10 Resp 25 H 06/24/19 12:06 BP 161/79 06/24/19 11:16 Pulse Ox 94 06/24/19 12:10 06/23/19 06/24/19 06/24/19 22:59 06:59 14:59 Intake Total 580 / 940 100 / 1040 360 / 360 Output Total 900 / 900 Balance 580 / 940 -800 / 140 360 / 360 Physical Exam Narrative: EXAM NARRATIVE: General exam is a white male on BiPAP, currently without complaint Cardiovascular regular rate and rhythm Lungs diminished breath sounds bilaterally. They are markedly diminished right greater than left Abdomen is soft with positive bowel sounds Extremities 1+ edema bilaterally Urinary Catheter Management^: Denise: Cath Placed During This Visit: yes Reason for Continuing Indwelling Catheter: Chronic Indwelling Urinary Catheter on Admission Urinary Catheter Date of Insertion: 06/21/19 Urinary Catheter Time of Insertion: 10:55 Data : 06/23/19 16:48 06/24/19 05:09 A&P Assessment and plan (1) Hospital-acquired pneumonia: Right lung, upper and lower lobe. Associated with right pleural effusion. Last hospital stay there was concern of possible seizure prior to admission. Must consider aspiration. Continue cefepime, Flagyl Change vancomycin to linezolid secondary to significant renal insufficiency If not improving by tomorrow consider noncontrast CT chest Status: Acute Code(s): J18.9 - Pneumonia, unspecified organism; Y95 - Nosocomial condition (2) Hypercapnic respiratory failure: Secondary to above Still requiring BiPAP Continue pulmonary toilet. Status: Acute Code(s): J96.92 - Respiratory failure, unspecified with hypercapnia (3) Acute exacerbation of congestive heart failure: 40 mg twice daily. Monitoring renal function closely. Awaiting repeat echocardiogram. Past ejection fraction around 35%. Check BMP Continue Denise for adequate I/O measurement with diuresis Status: Acute Code(s): I50.9 - Heart failure, unspecified Additional A&P Information Sepsis, resolved. Presumably secondary to pneumonia. Chronic kidney disease stage III. Renal function slightly better Type 2 diabetes. Sliding scale insulin. Encephalopathy, improving History of seizure disorder, on Keppra DNR Heparin for DVT prophylaxis Attestations Medical Necessity Statement*: Needs continued hospitalization, for IV antibiotics related to pneumonia. Coding Level of Care Code Acute Financial Representative for Chg Fwd Diagnoses Hospital-acquired pneumonia J18.9; Y95 Hypercapnic respiratory failure J96.92 Acute exacerbation of congestive heart failure I50.9
[2019-06-24 16:53] LABS: Glucose Point of Care 168 mg/dL (70-110)
[2019-06-25] VITALS (21 sets, daily range): BP systolic 138–182; BP diastolic 71–80; PULSE 76–87; RESP 18–32; TEMP 36.4–37; O2SAT 92–97
[2019-06-25 00:07] LABS: Glucose Point of Care 152 mg/dL (70-110)
[2019-06-25] MEDS: metroNIDAZOLE IV 500 MG/100 ML PREMIX 100 MG IV ×4 (02:13→20:55)
[2019-06-25] MEDS: heparin 5,000 unit/mL INJ 1 mL 5000 UNIT SUBCUT ×3 (02:14→18:09)
[2019-06-25] MEDS: ipratropium-albuterol 3 mL Neb INHALATION ×6 (03:24→23:39)
[2019-06-25 06:26] LABS: Basophils % 0.3 %; Eosinophils # 0.3 10^3/uL (0.0-0.8); Eosinophils % 3.3 %; Hemoglobin 9.2 g/dL (11.7-16.6); Lymphocytes # 0.6 10^3/uL (0.8-4.8); Mean Corpuscular HGB Conc 31.7 g/dL (30.0-36.0); Mean Corpuscular Hemoglobin 30.5 pg (28.0-34.0); Mean Platelet Volume 10.1 fL (7.4-10.4); Monocytes # 0.6 10^3/uL (0.2-0.9); Monocytes % 7.4 %; Neutrophils % 80.6 %; Nucleated Red Blood Cells % 0 %; Platelet Count 206 10^3/cmm (130-400); Red Blood Count 3.02 10^6/uL (4.1-5.3); Red Cell Distribution Width 13.2 % (12.1-15.1); White Blood Count 7.5 10^3/uL (4.0-10.0)
[2019-06-25 06:47] LABS: Blood Urea Nitrogen 59 mg/dL (8-23); Calcium 8.6 mg/dL (8.5-10.5); Carbon Dioxide 22 mmol/L (22-29); Chloride 106 mmol/L (98-107); Glucose 150 mg/dL (65-115); Osmolality Calculated 296 mOsm/kg (285-295); Sodium 142 mmol/L (136-145)
[2019-06-25 07:32] LABS: Glucose Point of Care 140 mg/dL (70-110)
[2019-06-25] MEDS: FUROsemide 40 mg Tablet PO ×2 (09:05→15:14)
[2019-06-25] MEDS: aspirin 325 mg Tablet PO (09:06)
[2019-06-25] MEDS: levETIRAcetam 500 mg Tablet PO ×2 (09:06→18:10)
[2019-06-25 11:19] LABS: Glucose Point of Care 216 mg/dL (70-110)
[2019-06-25] MEDS: linezolid premix 600 MG/300 ML PREMIX 300 MG IV ×2 (12:29→22:57)
--- NOTE | 2019-06-25 12:53 | P.PN_ITS ---
Subjective Subjective: Interval history: Moy reports he feels a little bit better. Still on BiPAP quite a bit. Medications: Reviewed: Yes Vitals/I&O/Wt Last Vital Signs Temp 98.4 F 06/25/19 07:21 Pulse 84 06/25/19 11:21 Resp 18 06/25/19 11:21 BP 145/76 06/25/19 07:21 Pulse Ox 94 06/25/19 11:21 06/24/19 06/25/19 06/25/19 22:59 06:59 14:59 Intake Total 560 / 1560 760 / 2320 Output Total 2300 / 2300 Balance 560 / 1560 -154 20 Physical Exam Narrative: EXAM NARRATIVE: General exam is a white male on BiPAP, currently without complaint Cardiovascular regular rate and rhythm Lungs diminished breath sounds bilaterally. They are markedly diminished right greater than left Abdomen is soft with positive bowel sounds Extremities trace edema bilaterally Urinary Catheter Management^: Denise: Cath Placed During This Visit: yes Reason for Continuing Indwelling Catheter: Chronic Indwelling Urinary Catheter on Admission Urinary Catheter Date of Insertion: 06/21/19 Urinary Catheter Time of Insertion: 10:55 Data : 06/25/19 06:13 06/25/19 06:13 A&P Assessment and plan (1) Hospital-acquired pneumonia: Right lung, upper and lower lobe. Associated with right pleural effusion. Last hospital stay there was concern of possible seizure prior to admission. Must consider aspiration. Continue cefepime, Flagyl, linezolid MRSA PCR. If negative consider discontinue linezolid He appears to be improving Status: Acute Code(s): J18.9 - Pneumonia, unspecified organism; Y95 - Nosocomial condition (2) Hypercapnic respiratory failure: Secondary to above Hopefully can discontinue BiPAP except while sleeping. He will need BiPAP at home while sleeping. Continue pulmonary toilet. Status: Acute Code(s): J96.92 - Respiratory failure, unspecified with hypercapnia (3) Acute exacerbation of congestive heart failure: 40 mg twice daily. Monitoring renal function closely. Echocardiogram demonstrates EF of 45%. Continue Denise for adequate I/O measurement with diuresis Status: Acute Code(s): I50.9 - Heart failure, unspecified Additional A&P Information Sepsis, resolved. Presumably secondary to pneumonia. Chronic kidney disease stage III. Renal function slightly better Type 2 diabetes. Sliding scale insulin. Encephalopathy, improving History of seizure disorder, on Keppra DNR Heparin for DVT prophylaxis No need for laboratory tomorrow Ultimately will go back to skilled care Attestations Medical Necessity Statement*: Needs continued hospitalization for IV antibiotics secondary to pneumonia Coding Level of Care Code Acute Photovoltaic Installation Technician for Chg Fwd Diagnoses Hospital-acquired pneumonia J18.9; Y95 Hypercapnic respiratory failure J96.92 Acute exacerbation of congestive heart failure I50.9
[2019-06-25 17:06] LABS: Glucose Point of Care 192 mg/dL (70-110)
[2019-06-25 21:52] LABS: Glucose Point of Care 183 mg/dL (70-110)
[2019-06-26] VITALS (22 sets, daily range): BP systolic 145–167; BP diastolic 71–82; PULSE 74–90; RESP 19–30; TEMP 36.5–37; O2SAT 90–96
[2019-06-26] MEDS: heparin 5,000 unit/mL INJ 1 mL 5000 UNIT SUBCUT ×3 (02:54→19:05)
[2019-06-26] MEDS: metroNIDAZOLE IV 500 MG/100 ML PREMIX 100 MG IV (03:37)
[2019-06-26] MEDS: ipratropium-albuterol 3 mL Neb INHALATION ×6 (05:06→23:55)
[2019-06-26 07:42] LABS: Glucose Point of Care 150 mg/dL (70-110)
[2019-06-26] MEDS: FUROsemide 40 mg Tablet PO ×2 (09:05→17:04)
[2019-06-26] MEDS: aspirin 325 mg Tablet PO (09:46)
[2019-06-26] MEDS: levETIRAcetam 500 mg Tablet PO ×2 (09:46→19:05)
[2019-06-26] MEDS: metroNIDAZOLE 500 MG Tablet PO ×3 (10:22→21:27)
--- NOTE | 2019-06-26 10:35 | PC.SOCIAL ---
IMM Update Pg 2 of IMM given and explained to patient who verbalized understanding. Copy provided to patient.
[2019-06-26 11:05] LABS: Glucose Point of Care 192 mg/dL (70-110)
[2019-06-26] MEDS: linezolid 600 mg Tablet PO ×2 (12:14→23:01)
--- NOTE | 2019-06-26 13:30 | PM.PN ---
Subjective Subjective: Interval history: Moy reports that he is doing a little bit better. He is not needing BiPAP all the time. Medications: Reviewed: Yes Vitals/I&O/Wt Last Vital Signs Temp 97.9 F 06/26/19 11:45 Pulse 88 06/26/19 11:45 Resp 20 H 06/26/19 11:45 BP 155/82 06/26/19 11:45 Pulse Ox 94 06/26/19 11:45 06/25/19 06/26/19 06/26/19 22:59 06:59 14:59 Intake Total 200 / 1010 400 / 1410 240 / 240 Output Total 1500 / 1500 1000 / 2500 Balance -1300 / -490 -600 / -1090 240 / 240 Physical Exam Narrative: EXAM NARRATIVE: General exam is a white male on BiPAP, currently without complaint Cardiovascular regular rate and rhythm Lungs diminished breath sounds bilaterally. Abdomen is soft with positive bowel sounds Extremities trace edema bilaterally Urinary Catheter Management^: Denise: Cath Placed During This Visit: yes Reason for Continuing Indwelling Catheter: Chronic Indwelling Urinary Catheter on Admission Urinary Catheter Date of Insertion: 06/21/19 Urinary Catheter Time of Insertion: 10:55 Data : 06/25/19 06:13 06/25/19 06:13 Micro: Microbiology 06/21/19 04:26 Blood Culture - Final Blood NO GROWTH AFTER 5 DAYS 06/21/19 04:45 Blood Culture - Final Blood NO GROWTH AFTER 5 DAYS A&P Assessment and plan (1) Hospital-acquired pneumonia: Right lung, upper and lower lobe. Associated with right pleural effusion. Last hospital stay there was concern of possible seizure prior to admission. Must consider aspiration. Continue cefepime, Flagyl, linezolid MRSA PCR. If negative consider discontinue linezolid. Screen has not yet been done. Overall appears to be improving. Repeat chest x-ray tomorrow Status: Acute Code(s): J18.9 - Pneumonia, unspecified organism; Y95 - Nosocomial condition (2) Hypercapnic respiratory failure: Secondary to above Hopefully can discontinue BiPAP except while sleeping. He will need BiPAP at home while sleeping. Continue pulmonary toilet. Status: Acute Code(s): J96.92 - Respiratory failure, unspecified with hypercapnia (3) Acute exacerbation of congestive heart failure: Lasix 40 mg twice daily. BMP tomorrow. Echocardiogram demonstrates EF of 45%. Continue [place]ie for adequate I/O measurement with diuresis Status: Acute Code(s): I50.9 - Heart failure, unspecified Additional A&P Information Sepsis, resolved. Presumably secondary to pneumonia. Chronic kidney disease stage III. Renal function slightly better Type 2 diabetes. Sliding scale insulin. Encephalopathy, improving History of seizure disorder, on Keppra DNR Heparin for DVT prophylaxis Ultimately will go back to skilled care I suspect this may be sometime early next week Attestations Medical Necessity Statement*: Needs continued hospital stay for IV antibiotics secondary to pneumonia Coding Level of Care Code Acute Physics Technician for [facility] Fwd Diagnoses Hospital-acquired pneumonia J18.9; Y95 Hypercapnic respiratory failure J96.92 Acute exacerbation of congestive heart failure I50.9
[2019-06-26 16:44] LABS: Glucose Point of Care 164 mg/dL (70-110)
[2019-06-26 21:25] LABS: Glucose Point of Care 156 mg/dL (70-110)
[2019-06-27] VITALS (18 sets, daily range): BP systolic 150–171; BP diastolic 74–90; PULSE 72–90; RESP 18–26; TEMP 36.2–37.2; O2SAT 88–97
[2019-06-27] MEDS: heparin 5,000 unit/mL INJ 1 mL 5000 UNIT SUBCUT ×3 (02:55→17:24)
[2019-06-27] MEDS: ipratropium-albuterol 3 mL Neb INHALATION ×5 (03:38→20:16)
[2019-06-27 05:55] LABS: Basophils % 0.4 %; Eosinophils # 0.6 10^3/uL (0.0-0.8); Eosinophils % 7.8 %; Hematocrit 28.9 % (42.0-52.0); Hemoglobin 9.6 g/dL (11.7-16.6); Lymphocytes # 0.8 10^3/uL (0.8-4.8); Lymphocytes % 10.5 %; Mean Corpuscular HGB Conc 33.2 g/dL (30.0-36.0); Mean Corpuscular Hemoglobin 31.6 pg (28.0-34.0); Mean Corpuscular Volume 95.1 fL (80-94); Mean Platelet Volume 10.3 fL (7.4-10.4); Monocytes # 0.7 10^3/uL (0.2-0.9); Neutrophils # 5.4 10^3/uL (1.8-7.7); Nucleated Red Blood Cells % 0 %; Platelet Count 185 10^3/cmm (130-400); Red Blood Count 3.04 10^6/uL (4.1-5.3); Red Cell Distribution Width 13.2 % (12.1-15.1); White Blood Count 7.4 10^3/uL (4.0-10.0)
[2019-06-27 06:07] LABS: Blood Urea Nitrogen 47 mg/dL (8-23); Calcium 8.8 mg/dL (8.5-10.5); Carbon Dioxide 23 mmol/L (22-29); Chloride 102 mmol/L (98-107); Glucose 130 mg/dL (65-115); Osmolality Calculated 286 mOsm/kg (285-295); Sodium 138 mmol/L (136-145)
[2019-06-27 06:49] LABS: Glucose Point of Care 120 mg/dL (70-110)
--- NOTE | 2019-06-27 07:21 | XR_ITS ---
WS: [id number] Portable AP upright chest, 06/27/2019 Clinical Data: Follow-up pneumonia Comparison: Portable chest, 06/23/2019. Findings: The right lung opacity remains the same. There is increase in left lung opacity. This may r epresent development of pulmonary edema along with probable right lung pneumonia. The heart is enlarg ed. Bilateral pleural effusions are present. The aortic arch and descending aorta show calcification and tortuosity. Midline sternotomy sutures are seen. Monitor leads are on the chest wall. XR/XR chest 1V portable [id number] Impression: 1. Increase in pulmonary vascular congestion. 2. Right lung opacity which may still represent pneumonia. 3. Cardiomegaly.
--- NOTE | 2019-06-27 08:27 | US_ITS ---
WS: [id number] Ultrasound of the chest, 06/27/2019 Clinical Data: Check for significant pleural effusion, predominantly right Comparison: None. Findings: Bilateral pleural effusions are present. US/US chest [id number] Impression: Bilateral pleural effusions.
[2019-06-27] MEDS: aspirin 325 mg Tablet PO (09:14)
[2019-06-27] MEDS: metroNIDAZOLE 500 MG Tablet PO ×3 (09:14→19:40)
[2019-06-27] MEDS: levETIRAcetam 500 mg Tablet PO ×2 (09:14→17:24)
[2019-06-27] MEDS: FUROsemide 40 mg Tablet PO ×2 (09:14→16:05)
[2019-06-27] MEDS: cefepime 1,000 MG in sodium chloride 0.9% (plus) 100 ML 100 MG IV (09:16)
[2019-06-27 10:56] LABS: Glucose Point of Care 196 mg/dL (70-110)
--- NOTE | 2019-06-27 11:12 | P.PN_ITS ---
Subjective Subjective: Interval history: Moy reports he feels a little bit better. He is able to keep the BiPAP off for longer periods of time. Medications: Reviewed: Yes Vitals/I&O/Wt Last Vital Signs Temp 98.9 F 06/27/19 07:19 Pulse 86 06/27/19 07:44 Resp 24 H 06/27/19 07:42 BP 171/90 06/27/19 07:19 Pulse Ox 96 06/27/19 07:44 06/26/19 06/27/19 06/27/19 22:59 06:59 14:59 Intake Total 360 / 600 120 / 120 Output Total 1950 / 1950 1200 / 3150 Balance -1590 / -1350 -1200 / -2550 120 / 120 Physical Exam Narrative: EXAM NARRATIVE: General exam is a white male on high flow oxygen. Appears to have diuresed overnight Cardiovascular regular rate and rhythm Lungs diminished breath sounds bilaterally. Abdomen is soft with positive bowel sounds Extremities trace edema bilaterally Urinary Catheter Management^: Denise: Cath Placed During This Visit: yes Reason for Continuing Indwelling Catheter: Other Urinary Catheter Date of Insertion: 06/21/19 Urinary Catheter Time of Insertion: 10:55 Data : 06/27/19 05:24 06/27/19 05:24 A&P Assessment and plan (1) Hospital-acquired pneumonia: Right lung, upper and lower lobe. Associated with right pleural effusion. Last hospital stay there was concern of possible seizure prior to admission. M ust consider aspiration. Continue cefepime, Flagyl, linezolid MRSA PCR. If negative consider discontinue linezolid. Screen has still not been done Overall appears to be improving. Chest x-ray repeated on him and concerned effusion may be larger. Chest ultrasound today. May need thoracentesis. I have since reviewed chest ultrasound with radiology. He believes that the amount of fluid is minimal at this time on the right, with estimates of possibly only 2 to 300 cc. At this point we will continue to follow clinically. Status: Acute Code(s): J18.9 - Pneumonia, unspecified organism; Y95 - Nosocomial condition (2) Hypercapnic respiratory failure: Secondary to above Hopefully can discontinue BiPAP except while sleeping. He will need BiPAP at home while sleeping. Continue pulmonary toilet. Wean oxygen as tolerated Status: Acute Code(s): J96.92 - Respiratory failure, unspecified with hypercapnia (3) Acute exacerbation of congestive heart failure: Lasix 40 mg twice daily. He is tolerating this well. Echocardiogram demonstrates EF of 45%. Continue Denise for adequate I/O measurement with diuresis Status: Acute Code(s): I50.9 - Heart failure, unspecified Additional A&P Information Sepsis, resolved. Presumably secondary to pneumonia. Chronic kidney disease stage III. Renal function slightly better Type 2 diabetes. Sliding scale insulin. Encephalopathy, improving History of seizure disorder, on Keppra DNR Heparin for DVT prophylaxis Ultimately will go back to skilled care I suspect this may be sometime early next week Attestations Medical Necessity Statement*: Needs continued hospitalization for IV antibiotics related to pneumonia. Coding Level of Care Code Acute Postpartum Nurse for Brandy Sanchez Diagnoses Hospital-acquired pneumonia J18.9; Y95 Hypercapnic respiratory failure J96.92 Acute exacerbation of congestive heart failure I50.9
[2019-06-27] MEDS: linezolid 600 mg Tablet PO (13:05)
[2019-06-27 17:07] LABS: Glucose Point of Care 189 mg/dL (70-110)
[2019-06-27 21:07] LABS: Glucose Point of Care 147 mg/dL (70-110)
[2019-06-28] VITALS (19 sets, daily range): BP systolic 154–161; BP diastolic 69–84; PULSE 80–91; RESP 18–28; TEMP 35.5–37.2; O2SAT 92–98
[2019-06-28] MEDS: ipratropium-albuterol 3 mL Neb INHALATION ×7 (00:04→23:37)
[2019-06-28] MEDS: heparin 5,000 unit/mL INJ 1 mL 5000 UNIT SUBCUT ×3 (02:31→18:02)
[2019-06-28] MEDS: metroNIDAZOLE 500 MG Tablet PO ×4 (02:32→19:28)
[2019-06-28 06:46] LABS: Glucose Point of Care 128 mg/dL (70-110)
[2019-06-28] MEDS: levETIRAcetam 500 mg Tablet PO ×2 (08:26→18:02)
[2019-06-28] MEDS: aspirin 325 mg Tablet PO (08:26)
[2019-06-28] MEDS: cefepime 1,000 MG in sodium chloride 0.9% (plus) 100 ML 100 MG IV (08:26)
[2019-06-28] MEDS: FUROsemide 40 mg Tablet PO ×2 (08:28→15:25)
[2019-06-28 11:16] LABS: Glucose Point of Care 190 mg/dL (70-110)
--- NOTE | 2019-06-28 11:28 | PC.SOCIAL ---
Updated IMM Updated pt on Pg 2 IMM & provided pt a copy from admission. No questions voiced. Signed, dated, & timed copy in chart.
--- NOTE | 2019-06-28 12:30 | P.PN_ITS ---
Subjective Subjective: Interval history: Patient is laying in bed this morning, is still on 5 L nasal cannula, he is wondering when he could go back to the custodial, no fevers, no chills, no nausea, no vomiting, no shortness of breath, remains afebrile Vitals/I&O/Wt Last Vital Signs Temp 98.1 F 06/28/19 11:33 Pulse 89 06/28/19 11:33 Resp 18 06/28/19 11:33 BP 158/78 06/28/19 11:33 Pulse Ox 93 06/28/19 11:33 06/27/19 06/28/19 06/28/19 22:59 06:59 14:59 Intake Total 220 / 660 240 / 240 Output Total 350 / 1350 650 / 2000 1200 / 1200 Balance -130 / -690 -650 / -1340 -960 / -960 Physical Exam Const: COMMON NORMALS: no apparent distress and oriented x3 HENMT: COMMON NORMALS: normocephalic HEAD & SCALP: normocephalic Neck/C-Spine: COMMON NORMALS: no JVD Resp: COMMON NORMALS: normal respiratory effort, no retractions, no use of accessory muscles and clear to auscultation bilaterally AUSCULTATION: clear to auscultation bilaterally Cardio: COMMON NORMALS: no JVD, regular rate, regular rhythm, S1 normal heart sound and S2 normal heart sound RATE: regular rate RHYTHM: regular rhythm HEART SOUNDS: S1 normal and S2 normal GI: COMMON NORMALS: normal to inspection, nondistended, normoactive bowel sounds, soft to palpation, non-tender, no hepatosplenomegaly, no masses and no bruits PALPATION: Yes soft and Yes no hepatosplenomegaly Extremity: COMMON NORMALS: normal capillary refill, no clubbing, cyanosis or edema, no calf tenderness and no pedal edema Neuro: COMMON NORMALS: oriented x3 Psych: COMMON NORMALS: mental status grossly normal Urinary Catheter Management^: Denise: Cath Placed During This Visit: yes Reason for Continuing Indwelling Catheter: Other Urinary Catheter Date of Insertion: 06/21/19 Urinary Catheter Time of Insertion: 10:55 Data : 06/27/19 05:24 06/27/19 05:24 Micro: Microbiology 06/27/19 06:40 MRSA Culture - Final Nose A&P Assessment and plan (1) Hospital-acquired pneumonia: -Right lung, upper and lower lobe. -Also has a right pleural effusion -Currently improving, oxygen requirements have significantly decreased, on 5 L, remains afebrile -MRSA PCR negative, blood cultures unremarkable -Zyvox discontinued -Currently on cefepime and Flagyl -On Lasix 40 mg twice daily for pleural effusion, which was not deemed significant enough for thoracocentesis Status: Acute Code(s): J18.9 - Pneumonia, unspecified organism; Y95 - Nosocomial condition (2) Hypercapnic respiratory failure: Secondary to above Hopefully can discontinue BiPAP except while sleeping. He will need BiPAP at home while sleeping. Continue pulmonary toilet. Wean oxygen as tolerated Status: Acute Code(s): J96.92 - Respiratory failure, unspecified with hypercapnia (3) Acute exacerbation of congestive heart failure: Lasix 40 mg twice daily. He is tolerating this well. Echocardiogram demonstrates EF of 45%. Continue Denise for adequate I/O measurement with diuresis Status: Acute Code(s): I50.9 - Heart failure, unspecified Additional A&P Information Sepsis, resolved. Presumably secondary to pneumonia. Chronic kidney disease stage III. Renal function slightly better Type 2 diabetes. Sliding scale insulin. 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
[2019-06-28 16:59] LABS: Glucose Point of Care 221 mg/dL (70-110)
[2019-06-28] MEDS: benzonatate 100 mg Capsule PO (19:28)
[2019-06-28 20:49] LABS: Glucose Point of Care 170 mg/dL (70-110)
[2019-06-28] MEDS: guaiFENesin 100 mg/5 mL UDC 10 mL 200 MG PO (22:41)
[2019-06-29] VITALS (19 sets, daily range): BP systolic 151–174; BP diastolic 71–81; PULSE 30–90; RESP 17–21; TEMP 36.4–37; O2SAT 92–97
[2019-06-29] MEDS: ipratropium-albuterol 3 mL Neb INHALATION ×6 (03:04→23:36)
[2019-06-29] MEDS: heparin 5,000 unit/mL INJ 1 mL 5000 UNIT SUBCUT ×3 (03:06→17:22)
[2019-06-29] MEDS: metroNIDAZOLE 500 MG Tablet PO ×2 (03:06→08:38)
[2019-06-29 06:10] LABS: Glucose Point of Care 119 mg/dL (70-110)
[2019-06-29 06:13] LABS: Basophils % 0.5 %; Eosinophils # 0.4 10^3/uL (0.0-0.8); Eosinophils % 6.8 %; Hematocrit 28.8 % (42.0-52.0); Hemoglobin 9.4 g/dL (11.7-16.6); Lymphocytes # 0.9 10^3/uL (0.8-4.8); Lymphocytes % 14.8 %; Mean Corpuscular HGB Conc 32.6 g/dL (30.0-36.0); Mean Corpuscular Hemoglobin 31.4 pg (28.0-34.0); Mean Corpuscular Volume 96.3 fL (80-94); Mean Platelet Volume 10.6 fL (7.4-10.4); Monocytes # 0.6 10^3/uL (0.2-0.9); Monocytes % 10.2 %; Neutrophils # 4.3 10^3/uL (1.8-7.7); Neutrophils % 67.4 %; Nucleated Red Blood Cells % 0 %; Platelet Count 157 10^3/cmm (130-400); Red Blood Count 2.99 10^6/uL (4.1-5.3); Red Cell Distribution Width 13.3 % (12.1-15.1); White Blood Count 6.3 10^3/uL (4.0-10.0)
[2019-06-29 06:32] LABS: Alanine Aminotransferase 16 U/L (0-41); Albumin Level 2.9 g/dL (3.5-5.2); Alkaline Phosphatase 52 IU/L (40-130); Anion Gap 13.9 (5-19); Aspartate Amino Transferase 20 U/L (0-40); Blood Urea Nitrogen 41 mg/dL (8-23); Calcium 8.7 mg/dL (8.5-10.5); Carbon Dioxide 29 mmol/L (22-29); Chloride 105 mmol/L (98-107); Globulin 2.8 g/dL (1.3-4.6); Glucose 133 mg/dL (65-115); Magnesium 1.8 mg/dL (1.7-2.3); Osmolality Calculated 298 mOsm/kg (285-295); Phosphorus 4.1 mg/dL (2.5-4.5); Potassium 3.9 mmol/L (3.5-5.1); Sodium 144 mmol/L (136-145); Total Bilirubin 0.3 mg/dL (0.15-1.2); Total Protein 5.7 g/dL (6.6-8.7)
[2019-06-29] MEDS: aspirin 325 mg Tablet PO (08:39)
[2019-06-29] MEDS: levETIRAcetam 500 mg Tablet PO ×2 (08:39→17:21)
[2019-06-29] MEDS: FUROsemide 40 mg Tablet PO ×2 (08:39→17:05)
[2019-06-29] MEDS: cefepime 1,000 MG in sodium chloride 0.9% (plus) 100 ML 100 MG IV (09:11)
[2019-06-29 11:48] LABS: Glucose Point of Care 184 mg/dL (70-110)
--- NOTE | 2019-06-29 16:46 | PM.PN ---
Subjective Subjective: Interval history: Patient has no complaints this morning, is just waiting on assisted placement, is doing well, gives me the thumbs up Vitals/I&O/Wt Last Vital Signs Temp 97.7 F 06/29/19 16:00 Pulse 81 06/29/19 16:29 Resp 18 06/29/19 16:29 BP 160/71 06/29/19 16:00 Pulse Ox 96 06/29/19 16:29 06/29/19 06/29/19 06/29/19 06:59 14:59 22:59 Intake Total 500 / 500 Output Total 300 / 2150 Balance -300 / -1320 500 / 500 Physical Exam Const: COMMON NORMALS: no apparent distress and oriented x3 HENMT: COMMON NORMALS: normocephalic HEAD & SCALP: normocephalic Neck/C-Spine: COMMON NORMALS: no JVD Resp: COMMON NORMALS: normal respiratory effort, no retractions, no use of accessory muscles and clear to auscultation bilaterally AUSCULTATION: clear to auscultation bilaterally Cardio: COMMON NORMALS: no JVD, regular rate, regular rhythm, S1 normal heart sound and S2 normal heart sound RATE: regular rate RHYTHM: regular rhythm HEART SOUNDS: S1 normal and S2 normal GI: COMMON NORMALS: normal to inspection, nondistended, normoactive bowel sounds, soft to palpation, non-tender, no hepatosplenomegaly, no masses and no bruits PALPATION: Yes soft and Yes no hepatosplenomegaly Extremity: COMMON NORMALS: normal capillary refill, no clubbing, cyanosis or edema, no calf tenderness and no pedal edema Neuro: COMMON NORMALS: oriented x3 Psych: COMMON NORMALS: mental status grossly normal Urinary Catheter Management^: Denise: Cath Placed During This Visit: yes, but has since been removed by the nurse Reason for Continuing Indwelling Catheter: Not indwelling catheter Urinary Catheter Date of Insertion: 06/21/19 Urinary Catheter Time of Insertion: 10:55 Date Urinary Catheter Removed: 06/28/19 Data : 06/29/19 05:39 06/29/19 05:39 A&P Assessment and plan (1) Hospital-acquired pneumonia: -Right lung, upper and lower lobe. -Also has a right pleural effusion -Currently improving, oxygen requirements have significantly decreased, on 52L, remains afebrile -MRSA PCR negative, blood cultures unremarkable -Zyvox, cefepime, Flagyl discontinued -Currently on Levaquin -On Lasix 40 mg twice daily for pleural effusion, which was not deemed significant enough for thoracocentesis Status: Acute Code(s): J18.9 - Pneumonia, unspecified organism; Y95 - Nosocomial condition (2) Hypercapnic respiratory failure: Secondary to above Hopefully can discontinue BiPAP except while sleeping. He will need BiPAP at home while sleeping. Continue pulmonary toilet. Wean oxygen as tolerated Status: Acute Code(s): J96.92 - Respiratory failure, unspecified with hypercapnia (3) Acute exacerbation of congestive heart failure: Lasix 40 mg twice daily. He is tolerating this well. Echocardiogram demonstrates EF of 45%. Continue Denise for adequate I/O measurement with diuresis Status: Acute Code(s): I50.9 - Heart failure, unspecified Additional A&P Information Sepsis, resolved. Presumably secondary to pneumonia. Chronic kidney disease stage III. Renal function slightly better Type 2 diabetes. Sliding scale insulin. 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
[2019-06-29 17:02] LABS: Glucose Point of Care 204 mg/dL (70-110)
[2019-06-29] MEDS: benzonatate 100 mg Capsule PO (20:47)
[2019-06-29] MEDS: guaiFENesin 100 mg/5 mL UDC 10 mL 200 MG PO (20:47)
[2019-06-29 21:35] LABS: Glucose Point of Care 180 mg/dL (70-110)
[2019-06-30] VITALS (9 sets, daily range): BP systolic 151–164; BP diastolic 73–81; PULSE 78–87; RESP 17–20; TEMP 36.7–37.1; O2SAT 87–98
[2019-06-30] MEDS: heparin 5,000 unit/mL INJ 1 mL 5000 UNIT SUBCUT ×2 (02:19→09:43)
[2019-06-30] MEDS: guaiFENesin 100 mg/5 mL UDC 10 mL 200 MG PO (02:21)
[2019-06-30] MEDS: ipratropium-albuterol 3 mL Neb INHALATION ×3 (03:37→11:30)
[2019-06-30] MEDS: levoFLOXacin 750 mg Tablet PO (05:38)
[2019-06-30 06:29] LABS: Basophils % 0.6 %; Eosinophils # 0.4 10^3/uL (0.0-0.8); Eosinophils % 6.5 %; Hematocrit 28.9 % (42.0-52.0); Hemoglobin 9.2 g/dL (11.7-16.6); Lymphocytes % 15.3 %; Mean Corpuscular HGB Conc 31.8 g/dL (30.0-36.0); Mean Corpuscular Hemoglobin 30.8 pg (28.0-34.0); Mean Corpuscular Volume 96.7 fL (80-94); Mean Platelet Volume 10.9 fL (7.4-10.4); Monocytes # 0.7 10^3/uL (0.2-0.9); Monocytes % 9.9 %; Neutrophils # 4.6 10^3/uL (1.8-7.7); Neutrophils % 67.4 %; Nucleated Red Blood Cells % 0 %; Platelet Count 154 10^3/cmm (130-400); Red Blood Count 2.99 10^6/uL (4.1-5.3); Red Cell Distribution Width 13.2 % (12.1-15.1); White Blood Count 6.8 10^3/uL (4.0-10.0)
[2019-06-30 06:31] LABS: Glucose Point of Care 157 mg/dL (70-110)
[2019-06-30 06:52] LABS: Alanine Aminotransferase 17 U/L (0-41); Albumin Level 2.9 g/dL (3.5-5.2); Alkaline Phosphatase 52 IU/L (40-130); Aspartate Amino Transferase 23 U/L (0-40); Blood Urea Nitrogen 38 mg/dL (8-23); Calcium 8.9 mg/dL (8.5-10.5); Carbon Dioxide 29 mmol/L (22-29); Chloride 105 mmol/L (98-107); Globulin 2.9 g/dL (1.3-4.6); Glucose 161 mg/dL (65-115); Magnesium 1.8 mg/dL (1.7-2.3); Osmolality Calculated 295 mOsm/kg (285-295); Sodium 142 mmol/L (136-145); Total Bilirubin 0.3 mg/dL (0.15-1.2); Total Protein 5.8 g/dL (6.6-8.7)
[2019-06-30] MEDS: levETIRAcetam 500 mg Tablet PO (08:03)
[2019-06-30] MEDS: aspirin 325 mg Tablet PO (08:03)
[2019-06-30] MEDS: FUROsemide 40 mg Tablet PO (08:04)
[2019-06-30 09:50] LABS: Glucose Point of Care 248 mg/dL (70-110)
--- NOTE | 2019-06-30 10:15 | PC.SOCIAL ---
IMM Update Pg 2 of IMM Given and explained to patient who verbalized understanding. Signed, dated, and timed and placed in chart. Copy provided to patient.
[2019-06-30 12:29] LABS: Glucose Point of Care 183 mg/dL (70-110)
--- NOTE | 2019-06-30 14:43 | PC.NURSE ---
Report called to Montse at [facility]. Spoke with patient's daughter and gave update on patient condition/ plan. Patient to be discharged this afternoon.
--- NOTE | 2019-06-30 18:44 | PM.DCS ---
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 Discharge Summary: Patient was admitted for altered mental status, shortness of breath secondary to healthcare associated pneumonia and sepsis. Patient received broad-spectrum antibiotics, oxygen therapy, nebulizer treatments, Lasix for bilateral pleural effusions and acute CHF exacerbation, BiPAP therapy, aggressive pulmonary toilet, his blood cultures remained unremarkable, MRSA PCR remain unremarkable, flu screen was negative, patient clinically improved. Patient clinically improved, moved to general medical floors, was ambulating in a walker, remained afebrile. Patient was discharged on 2 L oxygen therapy, Levaquin for 3 remaining days, and Lasix 40 mg p.o. daily. Physical Exam Const: COMMON NORMALS: no apparent distress and oriented x3 HENMT: COMMON NORMALS: normocephalic HEAD & SCALP: normocephalic Neck/C-Spine: COMMON NORMALS: no JVD Resp: COMMON NORMALS: normal respiratory effort, no retractions, no use of accessory muscles and clear to auscultation bilaterally AUSCULTATION: clear to auscultation bilaterally Cardio: COMMON NORMALS: no JVD, regular rate, regular rhythm, S1 normal heart sound and S2 normal heart sound RATE: regular rate RHYTHM: regular rhythm HEART SOUNDS: S1 normal and S2 normal GI: COMMON NORMALS: normal to inspection, nondistended, normoactive bowel sounds, soft to palpation, non-tender, no hepatosplenomegaly, no masses and no bruits PALPATION: Yes soft and Yes no hepatosplenomegaly Extremity: COMMON NORMALS: normal capillary refill, no clubbing, cyanosis or edema, no calf tenderness and no pedal edema Neuro: COMMON NORMALS: oriented x3 Psych: COMMON NORMALS: mental status grossly normal Urinary Catheter Management^: Denise: Cath Placed During This Visit: yes, but has since been removed by the nurse Reason for Continuing Indwelling Catheter: Not indwelling catheter Urinary Catheter Date of Insertion: 06/21/19 Urinary Catheter Time of Insertion: 10:55 Date Urinary Catheter Removed: 06/28/19 Discharge Data Data Completed and Pending: Completed Studies During Hospitalization Category Date Time Status XR chest 1V shar ble [id number] Routine Exams 06/23/19 16:29 Completed XR chest 1V shar ble [id number] Routine Exams 06/27/19 07:21 Completed XR chest 1V shar ble [id number] Urgent Exams 06/21/19 03:54 Completed CV echo complete* [id number] Routine Ultrasound 06/23/19 16:32 Completed [place] chest [id number] Ro utine Ultrasound 06/27/19 08:27 Completed Labs from last 24 hours 06/30/19 06/30/19 06/30/19 11:24 09:48 06:20 WBC RBC Hgb Hct MCV MCH MCHC RDW Plt Count MPV Neut % (Auto) Lymph % (Auto) [place] % (Auto) Eos % (Auto) Baso % (Auto) Neut # (Auto) Lymph # (Auto) [place] # (Auto) Eos # (Auto) Baso # (Auto) Nucleated RBC % (a uto) Nucleated RBCs # Sodium Potassium Chloride Carbon Dioxide Anion Gap BUN Creatinine Glucose POC Glucose 183 248 157 Calculated Osmolal ity Calcium Phosphorus Magnesium Total Bilirubin AST ALT Alkaline Phosphata se Total Protein Albumin Globulin 06/30/19 06/30/19 06/29/19 05:45 05:45 20:41 WBC 6.8 RBC 2.99 L Hgb 9.2 L Hct 28.9 L MCV 96.7 H MCH 30.8 MCHC 31.8 RDW 13.2 Plt Count 154 MPV 10.9 H Neut % (Auto) 67.4 Lymph % (Auto) 15.3 [place] % (Auto) 9.9 Eos % (Auto) 6.5 Baso % (Auto) 0.6 Neut # (Auto) 4.6 Lymph # (Auto) 1.0 [place] # (Auto) 0.7 Eos # (Auto) 0.4 Baso # (Auto) 0.0 Nucleated RBC % (a uto) 0 Nucleated RBCs # 0.0 Sodium 142 Potassium 4.0 Chloride 105 Carbon Dioxide 29 Anion Gap 12.0 BUN 38 H Creatinine 3.2 H Glucose 161 H POC Glucose 180 Calculated Osmolal ity 295 Calcium 8.9 Phosphorus 4.0 Magnesium 1.8 Total Bilirubin 0.3 AST 23 ALT 17 Alkaline Phosphata se 52 Total Protein 5.8 L Albumin 2.9 L Globulin 2.9 Vitals: Last Vital Signs Temp 98.0 F 06/30/19 11:26 Pulse 78 06/30/19 13:53 Resp 18 06/30/19 13:53 BP 151/81 06/30/19 11:26 Pulse Ox 97 06/30/19 13:53 Discharge Plan Discharge Patient Disposition: Xfer SNF Condition: Stable Prescriptions: New benzonatate 100 mg Capsule 100 mg PO TID PRN (Reason: Cough) 30 Days Qty: 60 RF: 0 levofloxacin 750 mg Tablet 750 mg PO Q48H 3 Days Qty: 3 RF: 0 aspirin 81 mg tablet,delayed release (DR/EC) 81 mg PO DAILY 30 Days Qty: 30 RF: 0 Novolog U-100 Insulin aspart 100 unit/mL solution See Rx Instructions .ROUTE .COMPLEX Qty: 10 RF: 0 Continued acetaminophen 325 mg Tablet 650 mg PO Q6H PRN (Reason: Mild/Mod Pain Or Temp >/= 101) Qty: 0 RF: 0 guaifenesin 100 mg/5 mL Liquid 200 mg PO Q4H PRN (Reason: Cough And Congestion) 30 Days Qty: 1 RF: 0 levetiracetam 500 mg Tablet 500 mg PO BID 30 Days Qty: 60 RF: 0 amlodipine 10 mg Tablet 10 mg PO DAILY 30 Days Qty: 30 RF: 0 hydrocodone-acetaminophen 5-325 mg Tablet 1 tab PO BID PRN (Reason: Pain) RF: 0 Milk of Magnesia 400 mg/5 mL Suspension 30 ml PO DAILY PRN (Reason: Constipation) RF: 0 Changed furosemide 40 mg Tablet 40 mg PO BID Qty: 0 RF: 0 Discontinued aspirin 325 mg Tablet 325 mg PO DAILY 30 Days Qty: 30 RF: 0 oseltamivir [Tamiflu] 30 mg Capsule 30 mg PO BID RF: 0 Discharge Orders: Discharge Order (Routine); Ordered 06/30/19 Ordered By: Hira Sara Other Ambulatory Orders: Complete Blood Count w/Auto (Routine) Timeframe: 1 Week Location: Determined by Patient Ordered By: Hira Ruiz Comprehensive Metabolic Panel (Routine) Timeframe: 1 Week Facility: [facility] - Location: Lab - Main Lab Ordered By: Hira Ruiz Referrals: [facility] [Outside] Angelica Mcintosh MD [Physician] - 1 month Sarah Tamayo MD [Primary Care Provider] - Discharge Diet: Cardiac Discharge Activity: Resume usual activity Patient Instructions: Heart Failure (DC), Diabetes Mellitus Type 2 in Adults (GEN), Bacterial Pneumonia (GEN), Pneumonia (DC), CHF Stoplight, Pneumonia Stoplight Activity Restrictions/Additional Instructions: -Please take antibiotic as prescribed -Please use oxygen therapy as prescribed -Please monitor for fevers, cough -Please use Lasix as prescribed, monitor urine output, monitor creatinine -Please monitor blood sugars 3 times daily, insulin/sliding scale provided, uptitrate as needed -Please follow-up with neurology in 1 month for seizures Discharge Date/Time: 06/30/19 15:30 Discharge Attestations Time Spent in Discharge Care*: less than 30 min Status at Discharge: Cognitive status at discharge: cognitively intact, Behavioral status at discharge: cooperative, Quality Metrics Clinical Quality Measures During this hospital stay, did patient experience: None Coding Level of Care Code 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
--- NOTE | 2019-07-22 11:42 | PC.SOCIAL ---
PA for Novolog was received yesterday. Called pharmacy to see when this was ordered. Ordered on 07/14/2019. This is the date he was dc'd from [facility] per Lissa. Lissa indicates not to worry about it because they set him up with a pcp appt when dcd from facility and is Dr Tamayo. Called Dr Tamayo office to update he may not be getting insulin and he is no longer a patient there due to no show appts. Called Daughter who tells me patient has HH through [email or web address]. Tried to reach [facility] and they do not provide HH in this area. The number given to me by daughter was actually for [facility]. Call placed to [facility] who states they never admitted him he did not answer the door but thinks the services were transitioned to [facility]. Called [facility] and patient was admitted to them on 07/18/2019 and they do not show him as being given insulin so she does not think any further clarification or search is needed. Thanked her for her help.
== END 2019-06-30 15:30 | disposition skilled nursing facility (03) | DRG 871 ==
LOC: MEDSURG 06:08 → ER 06:08
PROVIDERS: Internal Medicine; Admitting Provider Internal Medicine; Emergency Provider Emergency Medicine; Family Provider Internal Medicine; PCP Internal Medicine; Visit Provider Family Medicine
DX: A41.9 Sepsis, unspecified organism (principal); J18.9 Pneumonia, unspecified organism; J96.92 Respiratory failure, unspecified with hypercapnia; I50.41 Acute combined systolic (congestive) and diastolic (congestive) heart failure; G93.40 Encephalopathy, unspecified; I13.0 Hypertensive heart and chronic kidney disease with heart failure and stage 1 through stage 4 chronic kidney disease, or unspecified chronic kidney disease; Z68.42 Body mass index [BMI] 45.0-49.9, adult; Y95 Nosocomial condition; N18.3 Chronic kidney disease, stage 3 (moderate); E66.01 Morbid (severe) obesity due to excess calories; E11.65 Type 2 diabetes mellitus with hyperglycemia; Z66 Do not resuscitate; Z87.891 Personal history of nicotine dependence; Z79.4 Long term (current) use of insulin; Z79.82 Long term (current) use of aspirin; Z79.899 Other long term (current) drug therapy
CPT/HCPCS: 12345; 36415; 36416; 36600; 51702; 71045; 76604; 80048; 80053; 80202; 82805; 82962; 83605; 83735; 83880; 84100; 84484; 85025; 87040; 87641; 87804; 93005; 93306; 94640; 94660; 96372; 96374; 96375; 97116; 97162; 97166; 97530; 97535; 99284; J0692; J1644; J1815; J1940; J1956; J2020; J2930; J3370; J3490; J7050; S0030

== ENCOUNTER 2019-09-24 20:49 | Inpatient (IN) | payer OTHER, MEDICARE, SELFPAY ==
[2019-09-24 21:02] VITALS: BP 163/86; PULSE 97; RESP 40; TEMP 36.6; O2SAT 98; BMI 31.5
--- NOTE | 2019-09-24 21:31 | CTR_ITS ---
PROCEDURE INFORMATION: Exam: CT Chest Without Contrast Exam date and time: 09/24/2019 9:52 PM Age: 69 years old Clinical indication: Injury or trauma; Fall; Initial encounter; Generalized; Blunt trauma (contusions or hematomas); Prior surgery; Additional info: Fall, unknown history TECHNIQUE: Imaging protocol: Computed tomography of the chest without contrast. Radiation optimization: All CT scans at this facility use at least one of these dose optimization techniques: automated exposure control; mA and/or kV adjustment per patient size (includes targeted exams where dose is matched to clinical indication); or iterative reconstruction. COMPARISON: No relevant prior studies available. RADIATION DOSE METRICS: Total DLP: 2635.49 mGy-cm FINDINGS: Lungs: No visible active interstitial or alveolar airspace disease. No visible pulmonary contusion. Rare bulla/bleb. No evidence of significant restrictive or reactive airway disease. Pleural space: No visible hemothorax or pneumothorax. No visible pleural effusion. Heart: Assessment of the cardiac structures and configuration reveals advanced 3 vessel coronary artery disease. Status post sternotomy chest and CABG. Aorta: The thoracic aorta is nonaneurysmal. Moderate arterial sclerotic disease. Lymph nodes: No visible active mediastinal or hilar lymphadenopathy. Bones/joints: No visible acute osseous abnormality. Age appropriate degenerative disease. No visible rib fracture. Soft tissues: Unremarkable. Other findings: Motion artifact. IMPRESSION: 1. No visible blunt cardiopulmonary/cardiothoracic trauma. 2. Age related findings. PROCEDURE INFORMATION: Exam: CT Abdomen And Pelvis Without Contrast Exam date and time: 09/24/2019 9:52 PM Age: 69 years old Clinical indication: Injury or trauma; Fall; Initial encounter; Generalized; Blunt trauma (contusions or hematomas); Prior surgery; Additional info: Fall, unknown history TECHNIQUE: Imaging protocol: Computed tomography of the abdomen and pelvis without contrast. Radiation optimization: All CT scans at this facility use at least one of these dose optimization techniques: automated exposure control; mA and/or kV adjustment per patient size (includes targeted exams where dose is matched to clinical indication); or iterative reconstruction. COMPARISON: No relevant prior studies available. RADIATION DOSE METRICS: Total DLP: 2635.49 mGy-cm FINDINGS: Liver: Unremarkable. No mass. Gallbladder and bile ducts: Cholelithiasis. Both calcified and cholesterol gallstones. No visible gall bladder wall thickening or pericholecystic fluid. No visible intra or extrahepatic biliary ectasia. Pancreas: Mildly atrophic pancreas. No pancreatic ductal ectasia. Spleen: Normal. No splenomegaly. Adrenals: Normal. No mass. Kidneys and ureters: Kidneys unremarkable for age. No hydronephrosis or perinephric fluid. Stomach and bowel: Nonobstructive bowel pattern. No visible adynamic or reactive ileus. No evidence for diverticulitis. Appendix: No evidence of appendicitis. Intraperitoneal space: Unremarkable. No free air. No significant fluid collection. Vasculature: The abdominal aorta appears nonaneurysmal. Moderate arterial sclerotic disease. Lymph nodes: Unremarkable. No enlarged lymph nodes. Bladder: Urinary bladder unremarkable. Reproductive: Prostate hypertrophy. Bones/joints: No visible fracture. Age-appropriate degenerative disease. Soft tissues: Unremarkable. CT/CT chest abd pel wo con IMPRESSION: 1. No visible blunt abdominal or pelvic trauma. No visible solid or hollow viscous organ trauma. 2. Cholelithiasis. 3. Age related findings. Radiation Dose CTDIVOL = (mGy): DLP = 2635.49~2635.49 (mGy-cm)
--- NOTE | 2019-09-24 21:34 | CTR_ITS ---
PROCEDURE INFORMATION: Exam: CT Head Without Contrast Exam date and time: 09/24/2019 9:52 PM Age: 69 years old Clinical indication: Altered mental status/memory loss TECHNIQUE: Imaging protocol: Computed tomography of the head without contrast. Radiation optimization: All CT scans at this facility use at least one of these dose optimization techniques: automated exposure control; mA and/or kV adjustment per patient size (includes targeted exams where dose is matched to clinical indication); or iterative reconstruction. COMPARISON: No relevant prior studies available. RADIATION DOSE METRICS: Total DLP: 2004.61 mGy-cm FINDINGS: Brain: Cerebral and cerebellar atrophy with ventricular dilatation greater than that anticipated for patient's chronological age. Old right thalamic infarct. Small vessel ischemic disease with senile periventricular leukomalacia. Ventricles: No obstructive ventriculomegaly. Bones/joints: Unremarkable. No acute fracture. Sinuses: Chronic right maxillary sinusitis with inspissated mucus. Mastoid air cells: Visualized mastoid air cells are well aerated. Vasculature: Cerebral arterial sclerosis. Soft tissues: Unremarkable. Other findings: A total of 450 images were acquired that will require assessment and interpretation. CT/CT head wo con* [id number] IMPRESSION: No visible evidence of active or acute intracranial pathologic process. Radiation Dose CTDIVOL = (mGy): DLP = 2004.61 (mGy-cm)
[2019-09-24 22:25] LABS: Basophils # 0.1 10^3/uL (0.0-0.1); Basophils % 0.6 %; Eosinophils # 0.2 10^3/uL (0.0-0.8); Eosinophils % 1.1 %; Hematocrit 45.5 % (42.0-52.0); Hemoglobin 13.3 g/dL (11.7-16.6); Lymphocytes # 1.2 10^3/uL (0.8-4.8); Lymphocytes % 6.9 %; Mean Corpuscular HGB Conc 29.2 g/dL (30.0-36.0); Mean Corpuscular Volume 99.3 fL (80-94); Mean Platelet Volume 11.6 fL (7.4-10.4); Monocytes # 1.1 10^3/uL (0.2-0.9); Monocytes % 6.6 %; Neutrophils % 84.4 %; Nucleated Red Blood Cells % 0 %; Platelet Count 294 10^3/cmm (130-400); Red Blood Count 4.58 10^6/uL (4.1-5.3); Red Cell Distribution Width 15.5 % (12.1-15.1); White Blood Count 16.6 10^3/uL (4.0-10.0)
[2019-09-24 22:29] LABS: Alanine Aminotransferase 52 U/L (0-41); Albumin Level 3.7 g/dL (3.5-5.2); Alkaline Phosphatase 121 IU/L (40-130); Anion Gap 26.9 (5-19); Aspartate Amino Transferase 26 U/L (0-40); Calcium 9.6 mg/dL (8.5-10.5); Carbon Dioxide 18 mmol/L (22-29); Chloride 130 mmol/L (98-107); Creatine Phosphokinase 95 U/L (39-308); Globulin 2.6 g/dL (1.3-4.6); Glucose 255 mg/dL (65-115); Potassium 4.9 mmol/L (3.5-5.1); Total Bilirubin 0.6 mg/dL (0.15-1.2); Total Protein 6.3 g/dL (6.6-8.7)
[2019-09-24 22:35] LABS: ABG PCO2 36.1 mmHg (35-45); ABG PH Result 7.28 (7.35-7.45); Arterial Blood Gas Hematocrit 41.7 % (42-52); Base Excess ABG -8.8 mmol/L (-2.0-2.0); Blood Gas Sample Site Brachial, right; Blood Gas Sample Type Arterial; HCO3 ABG 17.1 mmol/L (22-26); PO2 ABG 73.9 mmHg (80.0-100.0)
[2019-09-24 22:43] LABS: Alcohol Level < 10 mg/dL (0-10); Osmolality Calculated 363 mOsm/kg (285-295)
[2019-09-24 22:48] LABS: Blood Urea Nitrogen 153 mg/dL (8-23); Sodium 170 mmol/L (136-145)
[2019-09-24 23:02] LABS: Lactate (Lactic Acid level) 1.3 mmol/L (0.5-2.2)
[2019-09-24 23:11] LABS: Troponin(5th) Baseline 789 ng/L (0-15)
--- NOTE | 2019-09-24 23:22 | P.HP_ITS ---
Providers/Chief Complaint Primary Care Provider: Sarah Tamayo MD Chief Complaint: GENERALIZED WEAKNESS History of Present Illness Moy Fernandez is a 69 year old male who carries diagnosis of reduced action fraction 35% with diastolic dysfunction, chronic kidney disease stage III-IV, breakthrough seizures, hypertension, type 2 diabetes, was treated for hospital- acquired pneumonia and CHF exacerbation, in June and was discharged to [facility] on Levaquin and Lasix 40 mg twice a day. Patient was brought in by EMS from his home after he was found on the floor by the home hospice nurse, EMS was told that he was on the floor for about 2 days and there were some maggots around his abdominal wall and feet, patient was discharged from the senior living to home, he lives alone. I called his daughter who lives in [place], she told me that her father was adamant that he would not stay at a senior living and he kept refusing hospitalization for his chronic comorbid conditions. Decision was made to discharge him to home with home hospice. Home hospice nurse checks on him once a week. He also stated that if next time he falls and he is not able to make decisions on his behalf he should not be admitted to the hospital. Daughter who is a single mother is in [place] and not able to make frequent trips to [place] nowadays. She also stated that her father's p.o. intake is very poor for him a proper meal could be just 1/2 can of beans. He has not been taking his medications, he has not followed up with any physicians Diagnostics in the ER revealed hyponatremia, sepsis with septic encephalopathy, likely source is urine, Denise catheter was passed which was draining cloudy urine UA has pyuria He was given cefepime in the ER, he was started on D5 half-normal saline at 250 mL/h by the ER physician I am going to check stat sodium level and decrease fluid rate Review of Systems General: Reports: ROS unobtainable due to medical condition (Encephalopathy due to sepsis) Medications/Allergies Home Medications Medication Instructions Recorded Confirmed Last Taken Type acetaminophen 650 mg PO Q6H PRN #0 tab 06/16/19 06/21/19 Unknown Rx Milk of Magnesia 30 ml PO DAILY PRN 06/21/19 06/21/19 Unknown History hydrocodone-acetaminophen 1 tab PO BID PRN 06/21/19 06/21/19 Unknown History furosemide 40 mg PO BID #0 tab 06/30/19 06/21/19 06/06/19 Rx insulin aspart U-100 [Novolog See Rx Instructions .ROUTE 06/30/19 Unknown Rx U-100 Insulin aspart] .COMPLEX #10 ml hydralazine 10 mg tablet 10 mg PO TID #270 tab 09/16/19 Unknown Rx Allergies Allergy/AdvReac Type Severity Reaction Status Date / Time No Known Allergies Allergy Verified 05/23/19 10:46 PFSH Acute PFSH: Medical History (Updated 09/25/19 @ 01:40 by Hamilton Moscoso MD) CHF (congestive heart failure) CKD (chronic kidney disease), stage III -known hx of CKD stage 3; baseline Cr is around 3-3.5 Combined systolic and diastolic congestive heart failure -has known hx of chronic combined systolic and diastolic CHF; no acute exacerbation currently -Echo (05/2018): EF=35% -stress testing in 05/2018 showing scarring with mild urmila-infarct ischemia in RCA territory Diabetes mellitus DNR (do not resuscitate) Hypertension Multilevel degenerative disc disease -has known hx of multilevel DJD, s/p spinal stimulator -hold opiates, sedating meds due to altered mental status -fall precautions -imaging reviewed, no acute findings Peripheral neuropathy Post-ictal state Rhabdomyolysis Seizure disorder Spinal cord stimulator status Spinal stenosis Type 2 diabetes mellitus Surgical History S/P CABG x 3 S/P insertion of spinal cord stimulator Family History (Updated 09/25/19 @ 01:41 by Hamilton Moscoso MD) Other Hyperlipidemia Hypertension Denies family history of Psychiatric illness Lung disease Social History (Updated 09/25/19 @ 01:41 by Hamilton Moscoso MD) Smoking and tobacco status: former smoker Alcohol intake: former Lives independently: Yes Current occupation: Living alone, he was discharged to home with home hospice Vitals/I&O/Wt Last Vital Signs Temp 97.9 F 09/24/19 21:02 Pulse 97 09/24/19 21:02 Resp 40 H 09/24/19 21:02 BP 163/86 09/24/19 21:02 Pulse Ox 98 09/24/19 21:02 Weight last 48 hrs Weight 99.79 kg Physical Exam Narrative: EXAM NARRATIVE: Head to toe examination Patient extremely dehydrated Encephalopathic Hyperventilating Extremely dehydrated buccal mucous membrane Macroglossia with dry fissured No facial asymmetry Patient is moving his extremities Denise catheter draining cloudy urine Lower extremity 1+ pitting edema bilateral Maggots were removed from his abdominal wall S1, S2 sinus tachycardia Abdomen soft, nontender, distended, Diminished breath sounds bilaterally with mild crackles Patient is nonverbal He seems to follow my commands Urinary Catheter Management^: Denise: Cath Placed During This Visit: yes Urinary Catheter Date of Insertion: 09/24/19 Urinary Catheter Time of Insertion: 23:02 Data : 09/24/19 20:30 09/24/19 20:30 A&P Assessment and plan (1) Septic encephalopathy: Status: Acute (2) Urinary tract infection: Status: Acute Qualifiers: Hematuria presence: without hematuria Urinary tract infection type: acute cystitis Qualified Code(s): N30.00 - Acute cystitis without hematuria (3) Dehydration, severe: Status: Acute (4) Acute kidney injury superimposed on chronic kidney disease: Status: Acute (5) Metabolic acidosis: Status: Acute (6) Hypernatremia: Status: Acute (7) Dehydration: Status: Acute Additional A&P Information Sepsis with septic encephalopathy Sepsis criteria met with tachycardia, leukocytosis, Source is most likely urine tract infection Previous urine culture grew staph epidermidis which I think was a contaminant He has pyuria We will start him on ceftriaxone Extreme dehydration sodium 107, Free water deficit 10 L As per his daughter he has poor p.o. intake, Patient was on home hospice Daughter does not have D POA, although she is only next of kin. She agreed with replenishing fluid for now and DNR/DNI, and if his clinical status is worsening she might think about palliative approach Frequent sodium level check target 6 to 7 mEq in 24 hours Check urine sodium Metabolic acidosis due to uremia, high anion gap Seems secondary to dehydration hemoglobin is stable, lactic acid normal We are not sure at this point if patient has been taking his home medication which could have also contributed towards dehydration and DOROTEO He has tachypnea due to metabolic acidosis with mild respiratory decompensation Abnormal troponin secondary to DOROTEO EKG showing T wave inversion in lead I aVL, LVH criteria met Would not start him on ACS protocol at this point Septic encephalopathy with underlying uremia On review of previous records I found out that he has been dealing with change in his personality, confusion, irritability, daughter also endorsed such behaviors CT head did not reveal acute pathology CT chest abdomen pelvis did not reveal any acute pathology, no hydronephrosis He was on home hospice at home, he has declined senior living placement, he has no other family member here, daughter is in [place], daughter is agreeable to think about palliative approach if his clinical condition is not improving, currently agreed with fluid resuscitation and antibiotics DVT prophylaxis: N.p.o.: Attestations Medical Necessity Statement*: Stay in the hospital cross more than 2 midnights currently has cardiac prognosis with underlying dehydration DOROTEO Time Spent in Patient Care: 60mins, called daughter as well Coding Level of Care Code 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
[2019-09-24 23:33] LABS: Glucose Urine UA Norm (Normal); Ketones Urine Negative (Negative); Protein Urine 3+ (Negative); Urine Appearance Cloudy (CLEAR); Urine Color Yellow (Yellow); pH Urine 5 (5-7)
[2019-09-24 23:34] LABS: Bilirubin Urine Neg (NEGATIVE); Blood Urine 2+ (Negative); Leukocyte Esterase Urine 1+ (Negative); Nitrate Urine Negative (Negative); Urobilinogen Urine Norm (Negative)
[2019-09-24 23:35] LABS: Add Urine Culture? Yes; Add Urine Microscopic? YES; Bacteria Urine 3+; RBC Urine 0-4 /hpf (0-2); WBC Urine 55-80 /hpf (0-5)
--- NOTE | 2019-09-24 23:35 | ECG_ITS ---
Measurements Intervals [place] Rate: 101 P: 41 MN: 169 QRS: 5 QRSD: 106 T: 129 QT: 388 QTc: 503 SINUS TACHYCARDIA POSSIBLE LEFT ATRIAL ENLARGEMENT [-0.1mV P WAVE IN V1/V2] LEFT VENTRICULAR HYPERTROPHY AND ST-T CHANGE [VOLTAGE CRITERIA PLUS ST/T ABNORMALITY] Compared to ECG 06/21/2019 06:09:02 Left ventricular hypertrophy now present ST (T wave) deviation now present Sinus rhythm no longer present Intraventricular conduction delay no longer present T-wave abnormality no longer present Prolonged QT interval no longer present Electronically Signed On 09-25-2019 21:08:07 CDT by Angeles Khan M.D. [email or web address]
[2019-09-24 23:36] LABS: Amphetamines Screen Urine Negative (Negative); Barbiturates Screen Urine Negative (Negative); Benzodiazepines Screen Urine Negative (Negative); Cocaine Screen Urine Negative (Negative); Opiate Screen Urine Negative (Negative); PCP Screen Urine Negative (Negative); THC Screen Urine Negative (Negative)
--- NOTE | 2019-09-24 23:45 | W.ED.AMS ---
HPI - Altered Mental Status General: Chief Complaint: Altered Mental Status Stated Complaint: GENERALIZED WEAKNESS Time Seen by Provider: 09/24/19 21:13 Source: EMS Mode of arrival: EMS Limitations: altered mental status History of Present Illness: HPI narrative: Patient is a 69-year-old gentleman with multiple medical problems including congestive heart failure, chronic kidney disease, diabetes mellitus, hypertension, seizure disorder who presents to the emergency department via EMS with an altered mental status. Apparently EMS was able to obtain some history from him and they said that the patient told him he fell out of bed 2 days ago and has been laying on the floor since then. The patient lives alone. The patient did not answer any of my questions and was unable to give me a history. He was lethargic. MD complaint: altered mental status Review of Systems General: Reports: ROS unobtainable due to mental status [facility] ED PFSH: Medical History (Updated 09/25/19 @ 00:13 by Telma Gardner MD, [facility] CHF (congestive heart failure) CKD (chronic kidney disease), stage III -known hx of CKD stage 3; baseline Cr is around 2 now with superimposed DOROTEO -avoid nephrotoxins, renally dose meds -continue to monitor renal function Combined systolic and diastolic congestive heart failure -has known hx of chronic combined systolic and diastolic CHF; no acute exacerbation currently -Echo (05/2018): EF=35% -stress testing in 05/2018 showing scarring with mild urmila-infarct ischemia in RCA territory Diabetes mellitus DNR (do not resuscitate) Hypertension Multilevel degenerative disc disease -has known hx of multilevel DJD, s/p spinal stimulator -hold opiates, sedating meds due to altered mental status -fall precautions -imaging reviewed, no acute findings Peripheral neuropathy Post-ictal state Rhabdomyolysis Seizure disorder Spinal cord stimulator status Spinal stenosis Type 2 diabetes mellitus Surgical History S/P CABG x 3 S/P insertion of spinal cord stimulator Social History Smoking and tobacco status: current every day smoker Alcohol intake: former Current occupation: Was living at home prior to rehab transfer Physical Exam Const: COMMON NORMALS: no acute distress, average body habitus and no limitations GENERAL APPEARANCE: disheveled, lethargic and other (Strong odor of urine and feces) ORIENTATION/CONSCIOUSNESS: Yes lethargic OTHER: Patient had fecal staining and maggots on his person. HENMT: COMMON NORMALS: normocephalic, atraumatic and moist oral mucous membranes HEAD & SCALP: normocephalic and atraumatic Eye: COMMON NORMALS: Equal, round and reactive pupils present, EOMs intact bilaterally, conjunctivae normal and no scleral icterus CONJUNCTIVA: Yes conjunctivae normal PUPIL: Yes Equal, round and reactive pupils present Neck/C-Spine: COMMON NORMALS: full ROM, supple, no meningeal signs, no JVD and No carotid bruits Chest: COMMONS NORMALS: normal inspection of the chest and normal palpation of entire chest wall Resp: COMMON NORMALS: normal respiratory effort, No retractions, No use of accessory muscles, clear to auscultation bilaterally and percussion normal AUSCULTATION: clear to auscultation bilaterally PERCUSSION: percussion normal Cardio: COMMON NORMALS: no JVD, regular rate, regular rhythm, S1 normal heart sound present, S2 normal heart sound present, No gallops present (Cardio), No clicks present (Cardio), No murmurs present (Cardio), No rub (Cardio) and Peripheral pulses 2+ throughout RATE: regular rate RHYTHM: regular rhythm HEART SOUNDS: S1 normal heart sound present and S2 normal heart sound present PERIPHERAL PULSES: Peripheral pulses 2+ throughout GI: COMMON NORMALS: Normal to inspection, nondistended, normoactive bowel sounds present, Soft to palpation, non-tender, No hepatosplenomegaly present, no masses and no bruits PALPATION: Yes Soft to palpation and Yes No hepatosplenomegaly present : COMMON NORMALS: Yes no CVA tenderness BLADDER/KIDNEY EXAM: Yes no CVA tenderness Back/Pelvis: COMMON NORMALS: no CVA tenderness Extremity: COMMON NORMALS: normal to inspection, full ROM, capillary refill normal, no calf tenderness and no pedal edema Neuro: SENSORIUM/ORIENTATION: Yes lethargic MENINGEAL SIGNS: Yes no meningeal signs Skin: COMMON NORMALS: no rashes or lesions noted, no wounds, turgor normal, no jaundice, no petechiae and no mottling GENERAL SKIN EXAM: no rashes or lesions noted and turgor normal Urinary Catheter Management^: Denise: Cath Placed During This Visit: yes Urinary Catheter Date of Insertion: 09/24/19 Urinary Catheter Time of Insertion: 23:02 Course Consultations: Consultation #1: Dr. Moscoso, hospitalist. He kindly accepted the patient to his service. Time: 23:20 Vital Signs: Vital signs: Vital Signs Temperature 97.9 F 09/24/19 21:02 Pulse Rate 97 09/24/19 21:02 Respiratory Rate 40 H 09/24/19 21:02 Blood Pressure 163/86 09/24/19 21:02 Pulse Oximetry 98 09/24/19 21:02 MDM - Altered Mental Status MDM Narrative: Medical decision making narrative: 69-year-old significantly ill gentleman who presented with features of metabolic encephalopathy. Etiology at this point is undetermined but he has a urinary tract infection, severe dehydration with hypernatremia, hyperuricemia, acute on chronic kidney failure, leukocytosis. Head CT, CT chest abdomen and pelvis were all negative for acute findings. He is admitted to the ICU for further evaluation and management. He was rehydrated with D5 half-normal saline and was given a dose of intravenous cefepime. Medical Records: Attestation: I reviewed the patient's medical records. Lab Data: Attestation: I reviewed the patient's lab results. Labs: Lab Results 09/24/19 09/24/19 09/24/19 Range/Units 20:30 20:30 22:25 WBC 16.6 H (4.0-10.0) 10^3/ uL RBC 4.58 (4.1-5.3) 10^6/u L Hgb 13.3 (11.7-16.6) g/dL Hct 45.5 (42.0-52.0) % MCV 99.3 H (80-94) fL MCH 29.0 (28.0-34.0) pg MCHC 29.2 L (30.0-36.0) g/dL RDW 15.5 H (12.1-15.1) % Plt Count 294 (130-400) 10^3/c mm MPV 11.6 H (7.4-10.4) fL Neut % (Auto) 84.4 % Lymph % (Auto) 6.9 % Converse % (Auto) 6.6 % Eos % (Auto) 1.1 % Baso % (Auto) 0.6 % Neut # (Auto) 14.0 H (1.8-7.7) 10^3/u L Lymph # (Auto) 1.2 (0.8-4.8) 10^3/u L Converse # (Auto) 1.1 H (0.2-0.9) 10^3/u L Eos # (Auto) 0.2 (0.0-0.8) 10^3/u L Baso # (Auto) 0.1 (0.0-0.1) 10^3/u L Nucleated RBC % (a uto) 0 % Nucleated RBCs # 0.0 /100WBC Specimen Type Sample Site ABG pH (7.35-7.45) ABG pCO2 (35-45) mmHg ABG pO2 (80.0-100.0) mmH g ABG HCO3 (22-26) mmol/L ABG Base Excess (-2.0-2.0) mmol/ L Gabo Test Hematocrit (42-52) % O2 Delivery Device FiO2 % [employer] Machine Operator ID Sodium 170 H* (136-145) mmol/L Potassium 4.9 (3.5-5.1) mmol/L Chloride 130 H (98-107) mmol/L Carbon Dioxide 18 L (22-29) mmol/L Anion Gap 26.9 H (5-19) BUN 153 H* D (8-23) mg/dL Creatinine 6.8 H* (0.7-1.2) mg/dL Glucose 255 H (65-115) mg/dL Calculated Osmolal ity 363 H (285-295) mOsm/k g Lactate 1.3 (0.5-2.2) mmol/L Calcium 9.6 (8.5-10.5) mg/dL Total Bilirubin 0.6 (0.15-1.2) mg/dL AST 26 (0-40) U/L ALT 52 H (0-41) U/L Alkaline Phosphata se 121 (40-130) IU/L Creatine Kinase 95 (39-308) U/L Troponin T Baselin e (0-15) ng/L Total Protein 6.3 L (6.6-8.7) g/dL Albumin 3.7 (3.5-5.2) g/dL Globulin 2.6 (1.3-4.6) g/dL Urine Color (Yellow) Urine Appearance (CLEAR) Urine pH (5-7) Ur Specific Gravit y (1.005-1.030) Urine Protein (Negative) Urine Glucose (UA) (Normal) Urine Ketones (Negative) Urine Blood (Negative) Urine Nitrate (Negative) Urine Bilirubin (NEGATIVE) Urine Urobilinogen (Negative) mg/dL Ur Leukocyte Nadege ase (Negative) Urine RBC (0-2) /hpf Urine WBC (0-5) /hpf Ur Squamous Epith Cells (0-5) Urine Bacteria (NONE) Urine Opiates Scre en (Negative) ng/mL Ur Barbiturates Sc reen (Negative) ng/mL Ur Phencyclidine S crn (Negative) ng/mL Ur Amphetamines Sc reen (Negative) ng/mL U Benzodiazepines Scrn (Negative) ng/mL Urine Cocaine Scre en (Negative) ng/mL U Marijuana (THC) Screen (Negative) ng/mL Ethyl Alcohol < 10 (0-10) mg/dL 09/24/19 09/24/19 09/24/19 Range/Units 22:25 22:27 23:00 WBC (4.0-10.0) 10^3/ uL RBC (4.1-5.3) 10^6/u L Hgb (11.7-16.6) g/dL Hct (42.0-52.0) % MCV (80-94) fL MCH (28.0-34.0) pg MCHC (30.0-36.0) g/dL RDW (12.1-15.1) % Plt Count (130-400) 10^3/c mm MPV (7.4-10.4) fL Neut % (Auto) % Lymph % (Auto) % Converse % (Auto) % Eos % (Auto) % Baso % (Auto) % Neut # (Auto) (1.8-7.7) 10^3/u L Lymph # (Auto) (0.8-4.8) 10^3/u L Converse # (Auto) (0.2-0.9) 10^3/u L Eos # (Auto) (0.0-0.8) 10^3/u L Baso # (Auto) (0.0-0.1) 10^3/u L Nucleated RBC % (a uto) % Nucleated RBCs # /100WBC Specimen Type Arterial Sample Site Brachial, right ABG pH 7.28 L (7.35-7.45) ABG pCO2 36.1 (35-45) mmHg ABG pO2 73.9 L (80.0-100.0) mmH g ABG HCO3 17.1 L (22-26) mmol/L ABG Base Excess -8.8 L (-2.0-2.0) mmol/ L Gabo Test N/a Hematocrit 41.7 L (42-52) % O2 Delivery Device None FiO2 21.0 % [employer] Machine Operator ID [email or web address] Sodium (136-145) mmol/L Potassium (3.5-5.1) mmol/L Chloride (98-107) mmol/L Carbon Dioxide (22-29) mmol/L Anion Gap (5-19) BUN (8-23) mg/dL Creatinine (0.7-1.2) mg/dL Glucose (65-115) mg/dL Calculated Osmolal ity (285-295) mOsm/k g Lactate (0.5-2.2) mmol/L Calcium (8.5-10.5) mg/dL Total Bilirubin (0.15-1.2) mg/dL AST (0-40) U/L ALT (0-41) U/L Alkaline Phosphata se (40-130) IU/L Creatine Kinase (39-308) U/L Troponin T Baselin e 789 H* (0-15) ng/L Total Protein (6.6-8.7) g/dL Albumin (3.5-5.2) g/dL Globulin (1.3-4.6) g/dL Urine Color Yellow (Yellow) Urine Appearance Cloudy (CLEAR) Urine pH 5 (5-7) Ur Specific Gravit y 1.020 (1.005-1.030) Urine Protein 3+ H (Negative) Urine Glucose (UA) Norm (Normal) Urine Ketones Negative (Negative) Urine Blood 2+ H (Negative) Urine Nitrate Negative (Negative) Urine Bilirubin Neg (NEGATIVE) Urine Urobilinogen Norm (Negative) mg/dL Ur Leukocyte Nadege ase 1+ H (Negative) Urine RBC 0-4 H (0-2) /hpf Urine WBC 55-80 H (0-5) /hpf Ur Squamous Epith Cells 5-10 H (0-5) Urine Bacteria 3+ H (NONE) Urine Opiates Scre en (Negative) ng/mL Ur Barbiturates Sc reen (Negative) ng/mL Ur Phencyclidine S crn (Negative) ng/mL Ur Amphetamines Sc reen (Negative) ng/mL U Benzodiazepines Scrn (Negative) ng/mL Urine Cocaine Scre en (Negative) ng/mL U Marijuana (THC) Screen (Negative) ng/mL Ethyl Alcohol (0-10) mg/dL 09/24/19 Range/Units 23:00 WBC (4.0-10.0) 10^3/ uL RBC (4.1-5.3) 10^6/u L Hgb (11.7-16.6) g/dL Hct (42.0-52.0) % MCV (80-94) fL MCH (28.0-34.0) pg MCHC (30.0-36.0) g/dL RDW (12.1-15.1) % Plt Count (130-400) 10^3/c mm MPV (7.4-10.4) fL Neut % (Auto) % Lymph % (Auto) % Converse % (Auto) % Eos % (Auto) % Baso % (Auto) % Neut # (Auto) (1.8-7.7) 10^3/u L Lymph # (Auto) (0.8-4.8) 10^3/u L Converse # (Auto) (0.2-0.9) 10^3/u L Eos # (Auto) (0.0-0.8) 10^3/u L Baso # (Auto) (0.0-0.1) 10^3/u L Nucleated RBC % (a uto) % Nucleated RBCs # /100WBC Specimen Type Sample Site ABG pH (7.35-7.45) ABG pCO2 (35-45) mmHg ABG pO2 (80.0-100.0) mmH g ABG HCO3 (22-26) mmol/L ABG Base Excess (-2.0-2.0) mmol/ L Gabo Test Hematocrit (42-52) % O2 Delivery Device FiO2 % [employer] Machine Operator ID Sodium (136-145) mmol/L Potassium (3.5-5.1) mmol/L Chloride (98-107) mmol/L Carbon Dioxide (22-29) mmol/L Anion Gap (5-19) BUN (8-23) mg/dL Creatinine (0.7-1.2) mg/dL Glucose (65-115) mg/dL Calculated Osmolal ity (285-295) mOsm/k g Lactate (0.5-2.2) mmol/L Calcium (8.5-10.5) mg/dL Total Bilirubin (0.15-1.2) mg/dL AST (0-40) U/L ALT (0-41) U/L Alkaline Phosphata se (40-130) IU/L Creatine Kinase (39-308) U/L Troponin T Baselin e (0-15) ng/L Total Protein (6.6-8.7) g/dL Albumin (3.5-5.2) g/dL Globulin (1.3-4.6) g/dL Urine Color (Yellow) Urine Appearance (CLEAR) Urine pH (5-7) Ur Specific Gravit y (1.005-1.030) Urine Protein (Negative) Urine Glucose (UA) (Normal) Urine Ketones (Negative) Urine Blood (Negative) Urine Nitrate (Negative) Urine Bilirubin (NEGATIVE) Urine Urobilinogen (Negative) mg/dL Ur Leukocyte Nadege ase (Negative) Urine RBC (0-2) /hpf Urine WBC (0-5) /hpf Ur Squamous Epith Cells (0-5) Urine Bacteria (NONE) Urine Opiates Scre en Negative (Negative) ng/mL Ur Barbiturates Sc reen Negative (Negative) ng/mL Ur Phencyclidine S crn Negative (Negative) ng/mL Ur Amphetamines Sc reen Negative (Negative) ng/mL U Benzodiazepines Scrn Negative (Negative) ng/mL Urine Cocaine Scre en Negative (Negative) ng/mL U Marijuana (THC) Screen Negative (Negative) ng/mL Ethyl Alcohol (0-10) mg/dL Imaging Data^: CT Abd/Pel: Radiologist's impression: [address] [address] [address] Scan Report Signed Patient: Moy Fernandez #: [id number] : 9Acct#:[id number] Age/Sex: 69 / MADM Date: 09/24/19 Loc: ERRoom/Bed: Attending Dr: Ordering Provider/Ordering MD: Telma Gardner MD, [facility] Date of Service: 09/24/19 Procedure(s): CT chest abd pel wo con Accession Number(s): [id number] Report Number: [id number] PROCEDURE INFORMATION: Exam: CT Chest Without Contrast Exam date and time: 09/24/2019 9:52 PM Age: 69 years old Clinical indication: Injury or trauma; Fall; Initial encounter; Generalized; Blunt trauma (contusions or hematomas); Prior surgery; Additional info: Fall, unknown history TECHNIQUE: Imaging protocol: Computed tomography of the chest without contrast. Radiation optimization: All CT scans at this facility use at least one of these dose optimization techniques: automated exposure control; mA and/or kV adjustment per patient size (includes targeted exams where dose is matched to clinical indication); or iterative reconstruction. COMPARISON: No relevant prior studies available. RADIATION DOSE METRICS: Total DLP: 2635.49 mGy-cm FINDINGS: Lungs: No visible active interstitial or alveolar airspace disease. No visible pulmonary contusion. Rare bulla/bleb. No evidence of significant restrictive or reactive airway disease. Pleural space: No visible hemothorax or pneumothorax. No visible pleural effusion. Heart: Assessment of the cardiac structures and configuration reveals advanced 3 vessel coronary artery disease. Status post sternotomy chest and CABG. Aorta: The thoracic aorta is nonaneurysmal. Moderate arterial sclerotic disease. Lymph nodes: No visible active mediastinal or hilar lymphadenopathy. Bones/joints: No visible acute osseous abnormality. Age appropriate degenerative disease. No visible rib fracture. Soft tissues: Unremarkable. Other findings: Motion artifact. IMPRESSION: 1. No visible blunt cardiopulmonary/cardiothoracic trauma. 2. Age related findings. PROCEDURE INFORMATION: Exam: CT Abdomen And Pelvis Without Contrast Exam date and time: 09/24/2019 9:52 PM Age: 69 years old Clinical indication: Injury or trauma; Fall; Initial encounter; Generalized; Blunt trauma (contusions or hematomas); Prior surgery; Additional info: Fall, unknown history TECHNIQUE: Imaging protocol: Computed tomography of the abdomen and pelvis without contrast. Radiation optimization: All CT scans at this facility use at least one of these dose optimization techniques: automated exposure control; mA and/or kV adjustment per patient size (includes targeted exams where dose is matched to clinical indication); or iterative reconstruction. COMPARISON: No relevant prior studies available. RADIATION DOSE METRICS: Total DLP: 2635.49 mGy-cm FINDINGS: Liver: Unremarkable. No mass. Gallbladder and bile ducts: Cholelithiasis. Both calcified and cholesterol gallstones. No visible gall bladder wall thickening or pericholecystic fluid. No visible intra or extrahepatic biliary ectasia. Pancreas: Mildly atrophic pancreas. No pancreatic ductal ectasia. Spleen: Normal. No splenomegaly. Adrenals: Normal. No mass. Kidneys and ureters: Kidneys unremarkable for age. No hydronephrosis or perinephric fluid. Stomach and bowel: Nonobstructive bowel pattern. No visible adynamic or reactive ileus. No evidence for diverticulitis. Appendix: No evidence of appendicitis. Intraperitoneal space: Unremarkable. No free air. No significant fluid collection. Vasculature: The abdominal aorta appears nonaneurysmal. Moderate arterial sclerotic disease. Lymph nodes: Unremarkable. No enlarged lymph nodes. Bladder: Urinary bladder unremarkable. Reproductive: Prostate hypertrophy. Bones/joints: No visible fracture. Age-appropriate degenerative disease. Soft tissues: Unremarkable. CT/CT chest abd pel wo con IMPRESSION: 1. No visible blunt abdominal or pelvic trauma. No visible solid or hollow viscous organ trauma. 2. Cholelithiasis. 3. Age related findings. Radiation Dose CTDIVOL = (mGy): DLP = 2635.49~2635.49 (mGy-cm) Dictated By:Marlon Lubin Signed By:Marlon LubinSignjeff Date/Time:09/24/192223 DD/ 22 EKG Data^: EKG 1: Attestation: I personally reviewed and interpreted this EKG as follows: EKG interpretation date: 09/24/19 EKG interpretation time: 23:28 Prior EKG tracings: not available for review Interpretation: Sinus tachycardia. Heart rate 101. Left atrial enlargement. LVH. No ST changes. 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
[2019-09-24] MEDS: dextrose 5%-sod chloride 0.45% 1,000 ML 250 ML IV (23:49)
[2019-09-25] VITALS (32 sets, daily range): BP systolic 89–179; BP diastolic 54–109; PULSE 80–99; RESP 7–37; TEMP -12.4–38; O2SAT 92–100
[2019-09-25] MEDS: cefepime 2,000 MG in sodium chloride 0.9% (plus) 50 ML 100 MG IV (00:05)
[2019-09-25 00:17] LABS: Troponin 5 2HR 743.5 ng/L (0-15)
--- NOTE | 2019-09-25 00:27 | PC.NURSE ---
DR LENTZ IN ROOM ATTEMPTING TO START AN IV. IV INFILTRATED ON THE LEFT AC. FLUIDS INFUSING IN RIGHT AC. PT SPEAKING BUT THE WORDS ARE NOT CLEAR. EYES OPEN, RESPONDS TO VERBAL STIMULI.
--- NOTE | 2019-09-25 00:42 | PC.NURSE ---
18 G IN LEFT AC INFILRATED , IV FLUIDS INFUSING IN RIGHT AC
--- NOTE | 2019-09-25 01:55 | PC.NURSE ---
Admit Note Arrived to floor from ER via gurney. Patient is drowsy, pale in appearance. Arouses to verbal stimuli and responds to name. Speech is inappropriate and mumbled. Pt able to follow some commands like gripping hands but does not follow other commands. PERRL 3. Breathing pattern is irregular with periods of apnea. Lungs diminished throughout. Large taut edematous IV infiltrate to left upper arm present on arrival to unit. Radial pulses weak and thready, pedal pulses faint to palpation. Pt has multiple skin ulcers and abrasions to buttocks and bilateral posterior legs, see wound assessment. Seizure and aspiration precautions in place.
[2019-09-25] MEDS: dextrose 5%-sod chloride 0.45% 1,000 ML 75 ML IV (02:00)
[2019-09-25] MEDS: heparin 5,000 unit/mL INJ 1 mL 5000 UNIT SUBCUT ×3 (02:00→17:01)
[2019-09-25 02:13] LABS: Sodium 167 mmol/L (136-145)
--- NOTE | 2019-09-25 03:35 | ECG_ITS ---
Measurements Intervals [place] Rate: 87 P: 37 AR: 156 QRS: -4 QRSD: 105 T: 150 QT: 422 QTc: 509 SINUS RHYTHM LEFT VENTRICULAR HYPERTROPHY AND ST-T CHANGE [VOLTAGE CRITERIA PLUS ST/T ABNORMALITY] INFERIOR MYOCARDIAL INFARCTION [40+ ms Q WAVE AND/OR ST/T ABNORMALITY IN II/aVF], PROBABLY OLD Compared to ECG 06/21/2019 06:09:02 Left ventricular hypertrophy now present ST (T wave) deviation now present Myocardial infarct finding now present Intraventricular conduction delay no longer present T-wave abnormality no longer present Prolonged QT interval no longer present Electronically Signed On 09-25-2019 21:09:09 CDT by Angeles Khan M.D. [email or web address]
--- NOTE | 2019-09-25 04:11 | PC.NURSE ---
Unable to obtain admission info due to lethargy and ams with no family. Med list also unavailable, ems brought 3 medication bottles but with some discrepancies between those and external med history. Will obtain med list from Mariela in AM.
[2019-09-25 04:56] LABS: Anion Gap 21.7 (5-19); Basophils # 0.1 10^3/uL (0.0-0.1); Basophils % 0.5 %; Calcium 9.5 mg/dL (8.5-10.5); Carbon Dioxide 18 mmol/L (22-29); Chloride 131 mmol/L (98-107); Eosinophils # 0.1 10^3/uL (0.0-0.8); Eosinophils % 0.7 %; Glucose 364 mg/dL (65-115); Hematocrit 42.5 % (42.0-52.0); Hemoglobin 12.6 g/dL (11.7-16.6); Lymphocytes # 0.8 10^3/uL (0.8-4.8); Lymphocytes % 5.1 %; Mean Corpuscular HGB Conc 29.6 g/dL (30.0-36.0); Mean Corpuscular Hemoglobin 29.9 pg (28.0-34.0); Mean Corpuscular Volume 100.7 fL (80-94); Mean Platelet Volume 10.8 fL (7.4-10.4); Monocytes # 1.5 10^3/uL (0.2-0.9); Monocytes % 9.6 %; Neutrophils # 12.7 10^3/uL (1.8-7.7); Neutrophils % 83.6 %; Nucleated Red Blood Cells % 0 %; Platelet Count 221 10^3/cmm (130-400); Potassium 4.7 mmol/L (3.5-5.1); Red Blood Count 4.22 10^6/uL (4.1-5.3); Red Cell Distribution Width 15.5 % (12.1-15.1); White Blood Count 15.2 10^3/uL (4.0-10.0)
[2019-09-25 05:05] LABS: Urine Random Chloride 23 mmol/L; Urine Random Sodium 42 mmol/L
[2019-09-25 05:11] LABS: Blood Urea Nitrogen 153 mg/dL (8-23); Osmolality Calculated 361 mOsm/kg (285-295); Sodium 166 mmol/L (136-145); Troponin 5 6HR 653.7 ng/L (0-15)
[2019-09-25] MEDS: piperacillin-tazobactam 3.375 GM in sodium chloride 0.9% (plus) 50 ML IV (07:56)
[2019-09-25 08:23] LABS: Sodium 169 mmol/L (136-145)
[2019-09-25 08:40] LABS: Glucose Point of Care 341 mg/dL (70-110)
[2019-09-25] MEDS: sodium bicarbonate 8.4% 1 mEq/mL 50mL Syr 50 MEQ IVP (09:23)
[2019-09-25 09:53] LABS: Sodium 168 mmol/L (136-145)
[2019-09-25] MEDS: vancomycin 1,000 MG in sodium chloride 0.9% 250 ML 250 MG IV (10:13)
[2019-09-25 11:33] LABS: Glucose Point of Care 232 mg/dL (70-110)
[2019-09-25 12:19] LABS: Sodium 167 mmol/L (136-145)
[2019-09-25] MEDS: haloperidol inj 5 mg/mL INJ 1 mL 2 MG IVP (13:15)
[2019-09-25 14:47] LABS: Sodium 172 mmol/L (136-145)
--- NOTE | 2019-09-25 15:11 | P.PN_ITS ---
Subjective Subjective: Interval history: This morning patient does open his eyes to sternal rub, does not follow commands, remains afebrile, normotensive, requiring 2 L nasal cannula, his serum sodium remains in the 160s to 170s, looks quite disheveled, unkempt, Vitals/I&O/Wt Last Vital Signs Temp 99.2 F 09/25/19 12:00 Pulse 83 09/25/19 14:00 Resp 29 H 09/25/19 14:00 BP 160/75 09/25/19 14:00 Pulse Ox 98 09/25/19 14:00 09/25/19 09/25/19 09/25/19 06:59 14:59 22:59 Intake Total 426.25 / 426.25 997.5 / 997.5 Output Total 500 / 500 350 / 350 Balance -73.75 / -73.75 647.5 / 647.5 Weight last 48 hrs Weight 97.296 kg Weight 99.79 kg Physical Exam Narrative: EXAM NARRATIVE: Opens his eyes to sternal rub, does not follow other commands Const: COMMON NORMALS: no acute distress HENMT: COMMON NORMALS: normocephalic HEAD & SCALP: normocephalic Neck/C-Spine: COMMON NORMALS: no JVD Resp: COMMON NORMALS: normal respiratory effort, No retractions, No use of accessory muscles and clear to auscultation bilaterally AUSCULTATION: clear to auscultation bilaterally Cardio: COMMON NORMALS: no JVD, regular rate, regular rhythm, S1 normal heart sound present and S2 normal heart sound present RATE: regular rate RHYTHM: regular rhythm HEART SOUNDS: S1 normal heart sound present and S2 normal he art sound present GI: COMMON NORMALS: Normal to inspection, nondistended, normoactive bowel sounds present, Soft to palpation, non-tender, No hepatosplenomegaly present, no masses and no bruits PALPATION: Yes Soft to palpation and Yes No hepatosplenomegaly present Extremity: COMMON NORMALS: capillary refill normal, no clubbing, cyanosis or edema, no calf tenderness and no pedal edema Neuro: OTHER: Does not follow neurologic exam Psych: COMMON NORMALS: mental status grossly normal Urinary Catheter Management^: Denise: Cath Placed During This Visit: yes Reason for Continuing Indwelling Catheter: Accurate Measurement of Urinary Output in Critically Ill Patients Urinary Catheter Date of Insertion: 09/24/19 Urinary Catheter Time of Insertion: 23:02 Data : 09/25/19 04:23 09/25/19 13:34 A&P Assessment and plan (1) Hypernatremia: -Likely hypovolemic hypernatremia, serum sodium 172 -Free water deficit around 13 L -Patient has not appropriate responded to D5 half-normal saline -We will switch to D5 water at 100 cc an hour, correct serum sodium at 0.5 to 1 mEq/h -Check serum sodiums every 2 hours -Neurochecks, seizure precautions Status: Acute (2) Acute renal failure: -Serum creatinine 6.7, BUN 153, potassium 4.7, bicarb 18 -850 cc urine output -Continue to monitor urine output closely, monitor creatinine -Patient was on home hospice, will reach out to daughter in case dialysis is required if that is a viable option Status: Acute (3) Septic encephalopathy: -Secondary to severe urinary tract infection -CT scan negative for obstructive uropathy -Continue vancomycin and Zosyn for antibiotic coverage -CT head negative for any acute pathology Status: Acute (4) NSTEMI (non-ST elevated myocardial infarction): -Baseline troponin VII 89, 6-hour 653, delta 135 -Slight ST depressions in 1 aVL, V5 V6 -Continue aspirin and statin -Likely type II NSTEMI related to dehydration, acute renal failure -Continue telemetry monitoring Status: Acute (5) Urinary tract infection: Status: Acute Qualifiers: Hematuria presence: without hematuria Urinary tract infection type: acute cystitis Qualified Code(s): N30.00 - Acute cystitis without hematuria (6) Dehydration, severe: Status: Acute (7) Acute kidney injury superimposed on chronic kidney disease: Status: Acute (8) Metabolic acidosis: Status: Acute (9) Dehydration: Status: Acute Additional A&P Information Metabolic acidosis due to uremia, high anion gap Seems secondary to dehydration hemoglobin is stable, lactic acid normal We are not sure at this point if patient has been taking his home medication wh ich could have also contributed towards dehydration and DOROTEO He has tachypnea due to metabolic acidosis with mild respiratory decompensation He was on home hospice at home, he has declined penitentiary placement, he has no other family member here, daughter is in [place], daughter is agreeable to think about palliative approach if his clinical condition is not improving, currently agreed with fluid resuscitation and antibiotics DVT prophylaxis: N.p.o.: Attestations Medical Necessity Statement*: Patient requires continued hospitalization, ICU, for acute hypernatremia, septic encephalopathy acute renal failure,, and NSTEMI Coding Level of Care Code Acute Dyer And Washer for [facility]g Fwd Diagnoses Hypernatremia E87.0 Acute renal failure N17.9 Septic encephalopathy G93.41 NSTEMI (non-ST elevated myocardial infarction) I21.4 Urinary tract infection N30.00 Hematuria presence: without hematuria Urinary tract infection type: acute cystitis Dehydration, severe E86.0 Acute kidney injury superimposed on chronic kidney disease N17.9; N18.9 Metabolic acidosis E87.2 Dehydration E86.0
[2019-09-25] MEDS: dextrose 5% 1,000 ML 100 ML IV (15:16)
[2019-09-25 16:12] LABS: Creatine Phosphokinase 95 U/L (39-308)
[2019-09-25 16:13] LABS: Sodium 172 mmol/L (136-145)
[2019-09-25 17:49] LABS: Glucose Point of Care 174 mg/dL (70-110)
[2019-09-25 19:46] LABS: Sodium 171 mmol/L (136-145)
--- NOTE | 2019-09-25 20:30 | PC.NURSE ---
Pt does not have IV access. Dayshift and shiftman have attempted with no success. Nurse notified Dr. Moscoso. Pt is on hospice at home and is an AND. said pt could wait until morning to get PICC inserted. All IV meds will be resumed in AM.
[2019-09-25 22:00] LABS: Sodium 168 mmol/L (136-145)
[2019-09-26] VITALS (14 sets, daily range): BP systolic 135–179; BP diastolic 63–91; PULSE 68–93; RESP 13–25; TEMP 36.4–36.8; O2SAT 72–100
[2019-09-26] MEDS: heparin 5,000 unit/mL INJ 1 mL 5000 UNIT SUBCUT ×3 (01:34→17:18)
[2019-09-26] MEDS: haloperidol inj 5 mg/mL INJ 1 mL 1 MG IM (01:51)
[2019-09-26 02:54] LABS: Basophils # 0.1 10^3/uL (0.0-0.1); Basophils % 0.5 %; Eosinophils # 0.4 10^3/uL (0.0-0.8); Eosinophils % 2.9 %; Hematocrit 40.7 % (42.0-52.0); Hemoglobin 11.8 g/dL (11.7-16.6); Lymphocytes # 1.1 10^3/uL (0.8-4.8); Lymphocytes % 8.3 %; Mean Corpuscular Hemoglobin 29.6 pg (28.0-34.0); Mean Corpuscular Volume 102.3 fL (80-94); Mean Platelet Volume 11.4 fL (7.4-10.4); Monocytes # 0.9 10^3/uL (0.2-0.9); Monocytes % 7.1 %; Neutrophils # 10.5 10^3/uL (1.8-7.7); Neutrophils % 80.7 %; Nucleated Red Blood Cells % 0 %; Platelet Count 201 10^3/cmm (130-400); Red Blood Count 3.98 10^6/uL (4.1-5.3); Red Cell Distribution Width 15.6 % (12.1-15.1)
[2019-09-26 03:03] LABS: Alanine Aminotransferase 70 U/L (0-41); Albumin Level 2.8 g/dL (3.5-5.2); Alkaline Phosphatase 104 IU/L (40-130); Aspartate Amino Transferase 47 U/L (0-40); Calcium 9.3 mg/dL (8.5-10.5); Carbon Dioxide 18 mmol/L (22-29); Chloride 131 mmol/L (98-107); Globulin 3.7 g/dL (1.3-4.6); Glucose 232 mg/dL (65-115); Magnesium 2.8 mg/dL (1.7-2.3); Total Bilirubin 0.5 mg/dL (0.15-1.2); Total Protein 6.5 g/dL (6.6-8.7)
[2019-09-26 03:16] LABS: Osmolality Calculated 356 mOsm/kg (285-295)
[2019-09-26 03:18] LABS: Blood Urea Nitrogen 122 mg/dL (8-23); Sodium 168 mmol/L (136-145)
[2019-09-26] MEDS: piperacillin-tazobactam 3.375 GM in sodium chloride 0.9% (plus) 50 ML IV ×2 (08:22→19:48)
[2019-09-26 08:24] LABS: Glucose Point of Care 187 mg/dL (70-110)
--- NOTE | 2019-09-26 08:26 | PC.NURSE ---
ZOSYN LATE DUE TO NO IV ACCESS; COREROOM FOUNDRY LABORER PLACED 18G IN RAC; WILL CONTINUE TO MONITOR
[2019-09-26] MEDS: aspirin 81 mg EC Tablet PO (08:32)
[2019-09-26] MEDS: dextrose 5% 1,000 ML 100 ML IV ×2 (09:10→18:21)
--- NOTE | 2019-09-26 11:27 | XRR_ITS ---
PROCEDURE INFORMATION: Exam: XR Chest, 1 View Exam date and time: 09/26/2019 11:40 AM Age: 69 years old Clinical indication: Device placement; Other: Central line; Additional info: Verify central line placement TECHNIQUE: Imaging protocol: XR of the chest Views: 1 view. COMPARISON: No relevant prior studies available. FINDINGS: Tubes, catheters and devices: Central venous catheter via the right jugular approach with the tip poorly visualized. Consider additional oblique view. Lungs: Lungs are well aerated without a focal area of consolidation. Pleural space: Unremarkable. No pleural effusion. No pneumothorax. Heart/Mediastinum: Unremarkable. No cardiomegaly. Bones/joints: Prior sternotomy XR/XR chest 1V portable [id number] IMPRESSION: 1. Central venous catheter via the right jugular approach with the tip poorly visualized. Consider additional oblique view. 2. Lungs are well aerated without a focal area of consolidation.
[2019-09-26 11:58] LABS: Sodium 161 mmol/L (136-145)
--- NOTE | 2019-09-26 12:30 | W.ED.AMS ---
HPI - Altered Mental Status General: Chief Complaint: Altered Mental Status Stated Complaint: GENERALIZED WEAKNESS Time Seen by Provider: 09/24/19 21:13 Source: EMS Mode of arrival: EMS Limitations: altered mental status PFS ED PFSH: Medical History (Updated 09/25/19 @ 15:20 by Hira Ruiz MD) CHF (congestive heart failure) CKD (chronic kidney disease), stage III -known hx of CKD stage 3; baseline Cr is around 3-3.5 Combined systolic and diastolic congestive heart failure -has known hx of chronic combined systolic and diastolic CHF; no acute exacerbation currently -Echo (05/2018): EF=35% -stress testing in 05/2018 showing scarring with mild urmila-infarct ischemia in RCA territory Diabetes mellitus DNR (do not resuscitate) Hypertension Multilevel degenerative disc disease -has known hx of multilevel DJD, s/p spinal stimulator -hold opiates, sedating meds due to altered mental status -fall precautions -imaging reviewed, no acute findings Peripheral neuropathy Post-ictal state Rhabdomyolysis Seizure disorder Spinal cord stimulator status Spinal stenosis Type 2 diabetes mellitus Surgical History S/P CABG x 3 S/P insertion of spinal cord stimulator Family History (Updated 09/25/19 @ 01:41 by Hamilton Moscoso MD) Other Hyperlipidemia Hypertension Denies family history of Psychiatric illness Lung disease Social History (Updated 09/25/19 @ 01:41 by Hamliton Moscoso MD) Smoking and tobacco status: former smoker Alcohol intake: former Lives independently: Yes Current occupation: Living alone, he was discharged to home with home hospice Physical Exam Urinary Catheter Management^: Denise: Cath Placed During This Visit: yes Reason for Continuing Indwelling Catheter: Accurate Measurement of Urinary Output in Critically Ill Patients Urinary Catheter Date of Insertion: 09/25/19 Urinary Catheter Time of Insertion: 22:30 Procedures Central Line Placement Right IJ: Time Out Performed: Yes Patient Placed on Monitor/Pulse Ox: Yes MD Prep: mask, gown, gloves and other (head cover) Central Line Prep: Chlorhexidine scrub Local Anesthetic: lidocaine 1% Amount of anesthesia used (mL): 3 Ultrasound Used for Placement: Yes Central Line Lumen Inserted: triple Post Procedure: sutured in place, good blood return, all ports aspirated, flushed, capped and sterile dressing applied Post Procedure X-Ray: tip of catheter in good position and no pneumothorax seen Patient Tolerated Procedure: well and no complications Complications: none Additional Comments: Central line placement per request of attending Dr. Rico. Informed consent obtained Patient placed in a Trendelenburg position ultrasound guidance used to isolate the right internal jugular needle advanced initially was in carotid this was removed and then revisualized and advanced into the right IJ Seldinger technique used to place triple-lumen which was sutured into place all ports flushed and aspirated with good return chest x-ray confirms placement Course Vital Signs: Vital signs: Vital Signs Temperature 97.5 F L 09/26/19 08:00 Pulse Rate 77 09/26/19 10:00 Respiratory Rate 21 H 09/26/19 10:00 Blood Pressure 135/91 09/26/19 10:00 Pulse Oximetry 98 09/26/19 10:00 MDM - Altered Mental Status Lab Data: Labs: Lab Results 09/24/19 09/24/19 09/24/19 Range/Units 20:30 20:30 22:25 WBC 16.6 H (4.0-10.0) 10^3/ uL RBC 4.58 (4.1-5.3) 10^6/u L Hgb 13.3 (11.7-16.6) g/dL Hct 45.5 (42.0-52.0) % MCV 99.3 H (80-94) fL MCH 29.0 (28.0-34.0) pg MCHC 29.2 L (30.0-36.0) g/dL RDW 15.5 H (12.1-15.1) % Plt Count 294 (130-400) 10^3/c mm MPV 11.6 H (7.4-10.4) fL Neut % (Auto) 84.4 % Lymph % (Auto) 6.9 % Terry % (Auto) 6.6 % Eos % (Auto) 1.1 % Baso % (Auto) 0.6 % Neut # (Auto) 14.0 H (1.8-7.7) 10^3/u L Lymph # (Auto) 1.2 (0.8-4.8) 10^3/u L Terry # (Auto) 1.1 H (0.2-0.9) 10^3/u L Eos # (Auto) 0.2 (0.0-0.8) 10^3/u L Baso # (Auto) 0.1 (0.0-0.1) 10^3/u L Nucleated RBC % (a uto) 0 % Nucleated RBCs # 0.0 /100WBC Specimen Type Sample Site ABG pH (7.35-7.45) ABG pCO2 (35-45) mmHg ABG pO2 (80.0-100.0) mmH g ABG HCO3 (22-26) mmol/L ABG Base Excess (-2.0-2.0) mmol/ L Gabo Test Hematocrit (42-52) % O2 Delivery Device FiO2 % Milling/Polishing Operator ID Sodium 170 H* (136-145) mmol/L Potassium 4.9 (3.5-5.1) mmol/L Chloride 130 H (98-107) mmol/L Carbon Dioxide 18 L (22-29) mmol/L Anion Gap 26.9 H (5-19) BUN 153 H* D (8-23) mg/dL Creatinine 6.8 H* (0.7-1.2) mg/dL Glucose 255 H (65-115) mg/dL Calculated Osmolal ity 363 H (285-295) mOsm/k g Lactate 1.3 (0.5-2.2) mmol/L Calcium 9.6 (8.5-10.5) mg/dL Total Bilirubin 0.6 (0.15-1.2) mg/dL AST 26 (0-40) U/L ALT 52 H (0-41) U/L Alkaline Phosphata se 121 (40-130) IU/L Creatine Kinase 95 (39-308) U/L Troponin T Baselin e (0-15) ng/L Troponin T 120 Min [place] (0-15) ng/L Delta Troponin T (0-10) ABS# Total Protein 6.3 L (6.6-8.7) g/dL Albumin 3.7 (3.5-5.2) g/dL Globulin 2.6 (1.3-4.6) g/dL Urine Color (Yellow) Urine Appearance (CLEAR) Urine pH (5-7) Ur Specific Gravit y (1.005-1.030) Urine Protein (Negative) Urine Glucose (UA) (Normal) Urine Ketones (Negative) Urine Blood (Negative) Urine Nitrate (Negative) Urine Bilirubin (NEGATIVE) Urine Urobilinogen (Negative) mg/dL Ur Leukocyte Nadege ase (Negative) Urine RBC (0-2) /hpf Urine WBC (0-5) /hpf Ur Squamous Epith Cells (0-5) Urine Bacteria (NONE) Ur Random Sodium mmol/L Ur Random Chloride mmol/L Urine Opiates Scre en (Negative) ng/mL Ur Barbiturates Sc reen (Negative) ng/mL Ur Phencyclidine S crn (Negative) ng/mL Ur Amphetamines Sc reen (Negative) ng/mL U Benzodiazepines Scrn (Negative) ng/mL Urine Cocaine Scre en (Negative) ng/mL U Marijuana (THC) Screen (Negative) ng/mL Ethyl Alcohol < 10 (0-10) mg/dL 09/24/19 09/24/19 09/24/19 Range/Units 22:25 22:27 23:00 WBC (4.0-10.0) 10^3/ uL RBC (4.1-5.3) 10^6/u L Hgb (11.7-16.6) g/dL Hct (42.0-52.0) % MCV (80-94) fL MCH (28.0-34.0) pg MCHC (30.0-36.0) g/dL RDW (12.1-15.1) % Plt Count (130-400) 10^3/c mm MPV (7.4-10.4) fL Neut % (Auto) % Lymph % (Auto) % Terry % (Auto) % Eos % (Auto) % Baso % (Auto) % Neut # (Auto) (1.8-7.7) 10^3/u L Lymph # (Auto) (0.8-4.8) 10^3/u L Terry # (Auto) (0.2-0.9) 10^3/u L Eos # (Auto) (0.0-0.8) 10^3/u L Baso # (Auto) (0.0-0.1) 10^3/u L Nucleated RBC % (a uto) % Nucleated RBCs # /100WBC Specimen Type Arterial Sample Site Brachial, right ABG pH 7.28 L (7.35-7.45) ABG pCO2 36.1 (35-45) mmHg ABG pO2 73.9 L (80.0-100.0) mmH g ABG HCO3 17.1 L (22-26) mmol/L ABG Base Excess -8.8 L (-2.0-2.0) mmol/ L Gabo Test N/a Hematocrit 41.7 L (42-52) % O2 Delivery Device None FiO2 21.0 % Milling/Polishing Operator ID [email or web address] Sodium (136-145) mmol/L Potassium (3.5-5.1) mmol/L Chloride (98-107) mmol/L Carbon Dioxide (22-29) mmol/L Anion Gap (5-19) BUN (8-23) mg/dL Creatinine (0.7-1.2) mg/dL Glucose (65-115) mg/dL Calculated Osmolal ity (285-295) mOsm/k g Lactate (0.5-2.2) mmol/L Calcium (8.5-10.5) mg/dL Total Bilirubin (0.15-1.2) mg/dL AST (0-40) U/L ALT (0-41) U/L Alkaline Phosphata se (40-130) IU/L Creatine Kinase (39-308) U/L Troponin T Baselin e 789 H* (0-15) ng/L Troponin T 120 Min [place] (0-15) ng/L Delta Troponin T (0-10) ABS# Total Protein (6.6-8.7) g/dL Albumin (3.5-5.2) g/dL Globulin (1.3-4.6) g/dL Urine Color Yellow (Yellow) Urine Appearance Cloudy (CLEAR) Urine pH 5 (5-7) Ur Specific Gravit y 1.020 (1.005-1.030) Urine Protein 3+ H (Negative) Urine Glucose (UA) Norm (Normal) Urine Ketones Negative (Negative) Urine Blood 2+ H (Negative) Urine Nitrate Negative (Negative) Urine Bilirubin Neg (NEGATIVE) Urine Urobilinogen Norm (Negative) mg/dL Ur Leukocyte Nadege ase 1+ H (Negative) Urine RBC 0-4 H (0-2) /hpf Urine WBC 55-80 H (0-5) /hpf Ur Squamous Epith Cells 5-10 H (0-5) Urine Bacteria 3+ H (NONE) Ur Random Sodium mmol/L Ur Random Chloride mmol/L Urine Opiates Scre en (Negative) ng/mL Ur Barbiturates Sc reen (Negative) ng/mL Ur Phencyclidine S crn (Negative) ng/mL Ur Amphetamines Sc reen (Negative) ng/mL U Benzodiazepines Scrn (Negative) ng/mL Urine Cocaine Scre en (Negative) ng/mL U Marijuana (THC) Screen (Negative) ng/mL Ethyl Alcohol (0-10) mg/dL 09/24/19 09/24/19 09/24/19 Range/Units 23:00 23:00 23:40 WBC (4.0-10.0) 10^3/ uL RBC (4.1-5.3) 10^6/u L Hgb (11.7-16.6) g/dL Hct (42.0-52.0) % MCV (80-94) fL MCH (28.0-34.0) pg MCHC (30.0-36.0) g/dL RDW (12.1-15.1) % Plt Count (130-400) 10^3/c mm MPV (7.4-10.4) fL Neut % (Auto) % Lymph % (Auto) % Terry % (Auto) % Eos % (Auto) % Baso % (Auto) % Neut # (Auto) (1.8-7.7) 10^3/u L Lymph # (Auto) (0.8-4.8) 10^3/u L Terry # (Auto) (0.2-0.9) 10^3/u L Eos # (Auto) (0.0-0.8) 10^3/u L Baso # (Auto) (0.0-0.1) 10^3/u L Nucleated RBC % (a uto) % Nucleated RBCs # /100WBC Specimen Type Sample Site ABG pH (7.35-7.45) ABG pCO2 (35-45) mmHg ABG pO2 (80.0-100.0) mmH g ABG HCO3 (22-26) mmol/L ABG Base Excess (-2.0-2.0) mmol/ L Gabo Test Hematocrit (42-52) % O2 Delivery Device FiO2 % Milling/Polishing Operator ID Sodium (136-145) mmol/L Potassium (3.5-5.1) mmol/L Chloride (98-107) mmol/L Carbon Dioxide (22-29) mmol/L Anion Gap (5-19) BUN (8-23) mg/dL Creatinine (0.7-1.2) mg/dL Glucose (65-115) mg/dL Calculated Osmolal ity (285-295) mOsm/k g Lactate (0.5-2.2) mmol/L Calcium (8.5-10.5) mg/dL Total Bilirubin (0.15-1.2) mg/dL AST (0-40) U/L ALT (0-41) U/L Alkaline Phosphata se (40-130) IU/L Creatine Kinase (39-308) U/L Troponin T Baselin e (0-15) ng/L Troponin T 120 Min [place] 743.5 H (0-15) ng/L Delta Troponin T -45.5 L (0-10) ABS# Total Protein (6.6-8.7) g/dL Albumin (3.5-5.2) g/dL Globulin (1.3-4.6) g/dL Urine Color (Yellow) Urine Appearance (CLEAR) Urine pH (5-7) Ur Specific Gravit y (1.005-1.030) Urine Protein (Negative) Urine Glucose (UA) (Normal) Urine Ketones (Negative) Urine Blood (Negative) Urine Nitrate (Negative) Urine Bilirubin (NEGATIVE) Urine Urobilinogen (Negative) mg/dL Ur Leukocyte Nadege ase (Negative) Urine RBC (0-2) /hpf Urine WBC (0-5) /hpf Ur Squamous Epith Cells (0-5) Urine Bacteria (NONE) Ur Random Sodium 42 mmol/L Ur Random Chloride 23 mmol/L Urine Opiates Scre en Negative (Negative) ng/mL Ur Barbiturates Sc reen Negative (Negative) ng/mL Ur Phencyclidine S crn Negative (Negative) ng/mL Ur Amphetamines Sc reen Negative (Negative) ng/mL U Benzodiazepines Scrn Negative (Negative) ng/mL Urine Cocaine Scre en Negative (Negative) ng/mL U Marijuana (THC) Screen Negative (Negative) ng/mL Ethyl Alcohol (0-10) mg/dL Discharge Plan Discharge Patient Disposition: Admitted As Inpatient Admit Provider: Hamilton Moscoso Clinical Impression: Acute metabolic encephalopathy, Acute kidney injury superimposed on chronic kidney disease, Acute hypernatremia, Asymptomatic hyperuricemia, Dehydration, severe Urinary tract infection Qualifiers: Urinary tract infection type: acute cystitis Hematuria presence: without hematuria Qualified Code(s): N30.00 - Acute cystitis without hematuria Condition: Stable Discharge Date/Time: 09/25/19 02:02 Coding Level of Care Code ED Hammer Adjuster for Brandy Sanchez
[2019-09-26 12:35] LABS: Sodium 160 mmol/L (136-145)
[2019-09-26 12:40] LABS: Glucose Point of Care 292 mg/dL (70-110)
--- NOTE | 2019-09-26 14:02 | XRR_ITS ---
PROCEDURE INFORMATION: Exam: XR Chest, 1 View Exam date and time: 09/26/2019 2:20 PM Age: 69 years old Clinical indication: Device placement; Other: 2nd film for central line; Prior surgery; Surgery date: 6+ months; Additional info: Verify central line placement. 2nd film for central line- had requested an oblique view TECHNIQUE: Imaging protocol: XR of the chest Views: 1 view. COMPARISON: CR XR chest 1V portable [id number] 09/26/2019 11:47 AM FINDINGS: Lungs: Low lung volumes seen. Left lower lobe atelectasis is present. Pleural space: Unremarkable. No pleural effusion. No pneumothorax. Heart/Mediastinum: Unremarkable. No cardiomegaly. Vasculature: There is a right internal jugular line in place extending into the SVC. Bones/joints: Metallic sternotomy wires are in place. XR/XR chest 1V portable [id number] IMPRESSION: 1. Low lung volumes, left lower lobe atelectasis 2. Right jugular line extends to the SVC 3. Status post sternotomy 4. Otherwise negative examination
[2019-09-26 14:31] LABS: Sodium 158 mmol/L (136-145)
--- NOTE | 2019-09-26 15:23 | PM.PN ---
Subjective Subjective: Interval history: This morning patient is a little bit more alert, follows commands such as squeezing my fingers, does not talk much, no seizure-like episodes overnight, no complaints of headache, pupils equal round reactive to light, mouth is extremely dry, looks disheveled, unkempt, there was troubles with venous access overnight, PICC line was unable to be placed given his dehydrated state, Dr. Penny from the ER was nice enough to place a central line for me, serial serum sodiums have trended down to 158, T-max 101.4, blood pressure 166/91, pulse 119, respiratory rate 32 Vitals/I&O/Wt Last Vital Signs Temp 101.4 F H 09/26/19 12:00 Pulse 119 H 09/26/19 12:00 Resp 32 H 09/26/19 12:00 BP 166/91 09/26/19 12:00 Pulse Ox 90 09/26/19 12:00 09/26/19 09/26/19 09/26/19 06:59 14:59 22:59 Intake Total 1440 / 2729.167 680 / 680 Output Total 350 / 1250 Balance 1090 / 1479.167 680 / 680 Weight last 48 hrs Weight 97.296 kg Weight 99.79 kg Physical Exam Narrative: EXAM NARRATIVE: Opens his eyes, does follow some commands, is quite groggy Const: COMMON NORMALS: no acute distress HENMT: COMMON NORMALS: normocephalic HEAD & SCALP: normocephalic Neck/C-Spine: COMMON NORMALS: no JVD Resp: COMMON NORMALS: normal respiratory effort, No retractions, No use of accessory muscles and clear to auscultation bilaterally AUSCULTATION: clear to auscultation bilaterally Cardio: COMMON NORMALS: no JVD, regular rate, regular rhythm, S1 normal heart sound present and S2 normal heart sound present RATE: regular rate RHYTHM: regular rhythm HEART SOUNDS: S1 normal heart sound present and S2 normal heart sound present GI: COMMON NORMALS: Normal to inspection, nondistended, normoactive bowel sounds present, Soft to palpation, non-tender, No hepatosplenomegaly present, no masses and no bruits PALPATION: Yes Soft to palpation and Yes No hepatosplenomegaly present Extremity: COMMON NORMALS: capillary refill normal, no clubbing, cyanosis or edema, no calf tenderness and no pedal edema Neuro: OTHER: Does not follow neurologic exam Urinary Catheter Management^: Denise: Cath Placed During This Visit: yes Reason for Continuing Indwelling Catheter: Accurate Measurement of Urinary Output in Critically Ill Patients Urinary Catheter Date of Insertion: 09/25/19 Urinary Catheter Time of Insertion: 22:30 Data : 09/26/19 02:10 09/26/19 14:05 Micro: Microbiology 09/24/19 23:00 Urine Culture - Preliminary Urine,Clean Catch A&P Assessment and plan (1) Hypernatremia: -Likely hypovolemic hypernatremia, serum sodium 172 -Free water deficit around 13 L -Patient has not appropriate responded to D5 half-normal saline -Continue D5 water at 100 cc an hour, correct serum sodium at 0.5 to 1 mEq/h -Check serum sodiums every 2 hours -Neurochecks, seizure precautions Status: Acute (2) Acute renal failure: -Serum creatinine 6.6, BUN 122, potassium 4.0, bicarb 18 -680 cc urine output -Continue to monitor urine output closely, monitor creatinine -Patient was on home hospice, will reach out to daughter in case dialysis is required if that is a viable option Status: Acute (3) Septic encephalopathy: -Secondary to severe urinary tract infection -CT scan negative for obstructive uropathy -Continue vancomycin and Zosyn for antibiotic coverage -CT head negative for any acute pathology Status: Acute (4) NSTEMI (non-ST elevated myocardial infarction): -Baseline troponin VII 89, 6-hour 653, delta 135 -Slight ST depressions in 1 aVL, V5 V6 -Continue aspirin and statin -Likely type II NSTEMI related to dehydration, acute renal failure -Continue telemetry monitoring Status: Acute (5) Urinary tract infection: Status: Acute Qualifiers: Hematuria presence: without hematuria Urinary tract infection type: acute cystitis Qualified Code(s): N30.00 - Acute cystitis without hematuria (6) Dehydration, severe: Status: Acute (7) Acute kidney injury superimposed on chronic kidney disease: Status: Acute (8) Metabolic acidosis: Status: Acute (9) Dehydration: Status: Acute (10) Deep tissue injury: -Patient has a significant DTI of his sacrococcyx -Will likely require debridement, -We will consult surgery, when acute hyponatremia has resolved -Continue repositioning Status: Acute Additional A&P Information Metabolic acidosis due to uremia, high anion gap Seems secondary to dehydration hemoglobin is stable, lactic acid normal We are not sure at this point if patient has been taking his home medication which could have also contributed towards dehydration and DOROTEO He has tachypnea due to metabolic acidosis with mild respiratory decompensation He was on home hospice at home, he has declined intermediate placement, he has no other family member here, daughter is in [place], daughter is agreeable to think about palliative approach if his clinical condition is not improving, currently agreed with fluid resuscitation and antibiotics DVT prophylaxis: N.p.o.: Attestations Medical Necessity Statement*: Patient requires hospitalization, for acute hyponatremia, septic encephalopathy second to UTI, acute renal failure, dehydration Coding Level of Care Code Acute Human Capital Manager for [facility] Diagnoses Hypernatremia E87.0 Acute renal failure N17.9 Septic encephalopathy G93.41 NSTEMI (non-ST elevated myocardial infarction) I21.4 Urinary tract infection N30.00 Hematuria presence: without hematuria Urinary tract infection type: acute cystitis Dehydration, severe E86.0 Acute kidney injury superimposed on chronic kidney disease N17.9; N18.9 Metabolic acidosis E87.2 Dehydration E86.0 Deep tissue injury T14.8XXA
[2019-09-26 16:36] LABS: Sodium 160 mmol/L (136-145)
[2019-09-26 16:42] LABS: Glucose Point of Care 258 mg/dL (70-110)
[2019-09-26] MEDS: mupirocin oint 22 gm 1 APPLIC TOPICAL (17:19)
--- NOTE | 2019-09-26 18:22 | PC.NURSE ---
D5W STARTED LATE DUE TO LACK OF ACCESS; WILL CONTINUE TO MONITOR
[2019-09-26 20:40] LABS: Sodium 155 mmol/L (136-145)
[2019-09-26] MEDS: atorvastatin 40 mg Tablet PO (20:57)
[2019-09-26 21:01] LABS: Glucose Point of Care 343 mg/dL (70-110)
--- NOTE | 2019-09-26 21:04 | PC.NURSE ---
blood glucose 343 sliding scale insulin given at 1713. after night time glucose checked patients MAR did not have insulin scheduled. call to updating on patient glucose. verbal order per sliding scale, patient will be administered 12 units of novolog.
[2019-09-26 22:25] LABS: Sodium 155 mmol/L (136-145)
[2019-09-27] VITALS (16 sets, daily range): BP systolic 130–176; BP diastolic 56–95; PULSE 52–70; RESP 14–23; TEMP 36.9–37.1; O2SAT 96–100
[2019-09-27 00:53] LABS: Sodium 156 mmol/L (136-145)
[2019-09-27] MEDS: heparin 5,000 unit/mL INJ 1 mL 5000 UNIT SUBCUT ×3 (01:30→17:02)
[2019-09-27 02:36] LABS: Sodium 154 mmol/L (136-145)
[2019-09-27] MEDS: dextrose 5% 1,000 ML 100 ML IV ×2 (04:27→15:14)
[2019-09-27 05:06] LABS: Basophils # 0.1 10^3/uL (0.0-0.1); Basophils % 0.6 %; Eosinophils # 0.7 10^3/uL (0.0-0.8); Eosinophils % 6.3 %; Hematocrit 32.6 % (42.0-52.0); Hemoglobin 9.6 g/dL (11.7-16.6); Lymphocytes % 9.7 %; Mean Corpuscular HGB Conc 29.4 g/dL (30.0-36.0); Mean Corpuscular Volume 98.5 fL (80-94); Mean Platelet Volume 11.3 fL (7.4-10.4); Monocytes # 0.8 10^3/uL (0.2-0.9); Monocytes % 7.5 %; Neutrophils # 7.7 10^3/uL (1.8-7.7); Neutrophils % 75.2 %; Nucleated Red Blood Cells % 0 %; Platelet Count 158 10^3/cmm (130-400); Red Blood Count 3.31 10^6/uL (4.1-5.3); Red Cell Distribution Width 14.8 % (12.1-15.1); White Blood Count 10.3 10^3/uL (4.0-10.0)
[2019-09-27 05:26] LABS: Alanine Aminotransferase 43 U/L (0-41); Albumin Level 2.8 g/dL (3.5-5.2); Alkaline Phosphatase 88 IU/L (40-130); Anion Gap 17.1 (5-19); Aspartate Amino Transferase 18 U/L (0-40); Calcium 9.1 mg/dL (8.5-10.5); Carbon Dioxide 20 mmol/L (22-29); Chloride 122 mmol/L (98-107); Globulin 2.6 g/dL (1.3-4.6); Glucose 288 mg/dL (65-115); Magnesium 2.7 mg/dL (1.7-2.3); Potassium 4.1 mmol/L (3.5-5.1); Sodium 155 mmol/L (136-145); Total Bilirubin 0.3 mg/dL (0.15-1.2); Total Protein 5.4 g/dL (6.6-8.7)
[2019-09-27 05:41] LABS: Blood Urea Nitrogen 125 mg/dL (8-23); Osmolality Calculated 333 mOsm/kg (285-295)
[2019-09-27 06:24] LABS: Sodium 153 mmol/L (136-145)
[2019-09-27] MEDS: piperacillin-tazobactam 3.375 GM in sodium chloride 0.9% (plus) 50 ML IV ×2 (06:24→18:12)
--- NOTE | 2019-09-27 07:00 | USR_ITS ---
PROCEDURE INFORMATION: Exam: US Abdomen Limited, Right Upper Quadrant Exam date and time: 09/27/2019 6:50 AM Age: 69 years old Clinical indication: Abdominal pain; Additional info: Ruq US TECHNIQUE: Imaging protocol: Real-time ultrasound of the abdomen with image documentation. Examination was focused on the right upper quadrant. COMPARISON: CT chest abd pel wo con 09/24/2019 9:52 PM FINDINGS: Liver: No focal hepatic mass. Gallbladder: Cholelithiasis. No gallbladder wall edema or pericholecystic fluid. Technologist reported negative sonographic Armijo sign. Common bile duct: Normal caliber of the incompletely visualized common bile duct measuring 3 mm in diameter. Pancreas: Obscuration of the pancreas by bowel gas. Right kidney: Normal right renal morphology. No hydronephrosis. Aorta: Obscuration of the abdominal aorta by bowel gas. Inferior vena cava: Unremarkable IVC. US/US abdomen limited [id number] IMPRESSION: Cholelithiasis.
[2019-09-27 07:20] LABS: Glucose Point of Care 257 mg/dL (70-110)
[2019-09-27] MEDS: hyDRALAzine 10 mg Tablet PO ×3 (08:06→21:12)
[2019-09-27] MEDS: mupirocin oint 22 gm 1 APPLIC TOPICAL ×2 (08:07→17:03)
[2019-09-27] MEDS: aspirin 81 mg EC Tablet PO (08:07)
[2019-09-27 08:51] LABS: Sodium 152 mmol/L (136-145)
[2019-09-27 10:50] LABS: Sodium 151 mmol/L (136-145)
[2019-09-27] MEDS: cloNIDine 0.1 mg Tablet PO ×2 (10:56→17:02)
[2019-09-27 11:37] LABS: Glucose Point of Care 290 mg/dL (70-110)
[2019-09-27] MEDS: linezolid premix 600 MG/300 ML PREMIX 300 MG IV (11:50)
--- NOTE | 2019-09-27 12:49 | PM.PN ---
Subjective Subjective: Interval history: This morning patient is much more alert, awake, answers questions, follows commands, does not know why he is here in the hospital, but states that he he was on the floor for a long period of time, states that he can could not get up off the floors, when I confronted him about why he was on the floor, he does not remember, I confronted patient about his care at home, he lives by himself, he looks quite disheveled, he was found with maggots around him, patient is unsure about what happened. But at this point is quite adamant about going home once he is out of the hospital Vitals/I&O/Wt Last Vital Signs Temp 98.5 F 09/27/19 12:00 Pulse 65 09/27/19 12:00 Resp 15 09/27/19 12:00 BP 139/68 09/27/19 12:00 Pulse Ox 97 09/27/19 12:00 09/26/19 09/27/19 09/27/19 22:59 06:59 14:59 Intake Total 2383.333 / 3113.333 1050 / 4163.333 360 / 360 Output Total 2350 / 2350 400 / 2750 Balance 33.333 / 763.333 650 / 1413.333 360 / 360 Physical Exam Const: COMMON NORMALS: no acute distress and patient oriented x3 HENMT: COMMON NORMALS: normocephalic HEAD & SCALP: normocephalic Neck/C-Spine: COMMON NORMALS: no JVD Resp: COMMON NORMALS: normal respiratory effort, No retractions, No use of accessory muscles and clear to auscultation bilaterally AUSCULTATION: clear to auscultation bilaterally Cardio: COMMON NORMALS: no JVD, regular rate, regular rhythm, S1 normal heart sound present and S2 normal heart sound present RATE: regular rate RHYTHM: regular rhythm HEART SOUNDS: S1 normal heart sound present and S2 normal heart sound present GI: COMMON NORMALS: Normal to inspection, nondistended, normoactive bowel sounds present, Soft to palpation, non-tender, No hepatosplenomegaly present, no masses and no bruits PALPATION: Yes Soft to palpation and Yes No hepatosplenomegaly present Extremity: COMMON NORMALS: capillary refill normal, no clubbing, cyanosis or edema, no calf tenderness and no pedal edema Neuro: COMMON NORMALS: patient oriented x3 Urinary Catheter Management^: Denise: Cath Placed During This Visit: yes Reason for Continuing Indwelling Catheter: Accurate Measurement of Urinary Output in Critically Ill Patients Urinary Catheter Date of Insertion: 09/25/19 Urinary Catheter Time of Insertion: 22:30 Data : 09/27/19 03:58 09/27/19 10:00 Micro: Microbiology 09/24/19 23:00 Urine Culture - Final Urine,Clean Catch A&P Assessment and plan (1) Hypernatremia: -Likely hypovolemic hypernatremia, serum sodium 151 from the 170s -Free water deficit around 13 L -Patient has not appropriate responded to D5 half-normal saline -Continue D5 water at 100 cc an hour, correct serum sodium at 0.5 to 1 mEq/h -Check serum sodiums every 2 hours -Neurochecks, seizure precautions Status: Acute (2) Acute renal failure: -Serum creatinine 5.9, BUN 125, potassium 4.1 -4500 cc urine output -Continue to monitor urine output closely, monitor creatinine -Patient was on home hospice, will reach out to daughter in case dialysis is required if that is a viable option Status: Acute (3) Septic encephalopathy: -Secondary to severe urinary tract infection, improved -CT scan negative for obstructive uropathy -Continue Zyvox and Zosyn for antibiotic coverage -CT head negative for any acute pathology Status: Acute (4) NSTEMI (non-ST elevated myocardial infarction): -Baseline troponin VII 89, 6-hour 653, delta 135 -Slight ST depressions in 1 aVL, V5 V6 -Continue aspirin and statin -Likely type II NSTEMI related to dehydration, acute renal failure -Continue telemetry monitoring Status: Acute (5) Urinary tract infection: Status: Acute Qualifiers: Hematuria presence: without hematuria Urinary tract infection type: acute cystitis Qualified Code(s): N30.00 - Acute cystitis without hematuria (6) Dehydration, severe: Status: Acute (7) Acute kidney injury superimposed on chronic kidney disease: Status: Acute (8) Metabolic acidosis: Resolved Status: Acute (9) Dehydration: Status: Acute (10) Deep tissue injury: -Patient has a significant DTI of his sacrococcyx likely secondary to immobility, being on the ground for long period of time -Will likely require debridement, -We will consult surgery, when acute hyponatremia has resolved -Continue repositioning -Continue Zyvox for antibiotic coverage Status: Acute Additional A&P Information Metabolic acidosis due to uremia, high anion gap Resolved History of breakthrough seizures, continue Keppra 500 twice daily He was on home hospice at home, he has declined skilled nursing placement, he has no other family member here, daughter is in [place], daughter is agreeable to think about palliative approach if his clinical condition is not improving, currently agreed with fluid resuscitation and antibiotics DVT prophylaxis: Heparin Low-sodium diet Likely transition out of ICU today, physical therapy, observational therapy, Attestations Medical Necessity Statement*: Patient requires hospitalization due to acute hyponatremia, acute renal failure, septic encephalopathy, UTI, deep tissue infection of sacral coccyx Coding Level of Care Code Acute [employer] Chief for g Fwd Diagnoses Hypernatremia E87.0 Acute renal failure N17.9 Septic encephalopathy G93.41 NSTEMI (non-ST elevated myocardial infarction) I21.4 Urinary tract infection N30.00 Hematuria presence: without hematuria Urinary tract infection type: acute cystitis Dehydration, severe E86.0 Acute kidney injury superimposed on chronic kidney disease N17.9; N18.9 Metabolic acidosis E87.2 Dehydration E86.0 Deep tissue injury T14.8XXA
[2019-09-27 14:37] LABS: Sodium 149 mmol/L (136-145)
--- NOTE | 2019-09-27 14:55 | PC.SOCIAL ---
IMM Update Pg 2 of IMM updated. Patient resting with eyes closed, copy left at bedside.
[2019-09-27 16:57] LABS: Glucose Point of Care 316 mg/dL (70-110)
[2019-09-27] MEDS: levETIRAcetam 500 mg Tablet PO (17:03)
[2019-09-27 18:19] LABS: Sodium 146 mmol/L (136-145)
[2019-09-27] MEDS: sodium chloride 0.45% 1,000 ML 100 ML IV (18:36)
[2019-09-27 20:19] LABS: Sodium 145 mmol/L (136-145)
[2019-09-27] MEDS: atorvastatin 40 mg Tablet PO (21:12)
[2019-09-27 21:13] LABS: Glucose Point of Care 256 mg/dL (70-110)
[2019-09-28] VITALS (16 sets, daily range): BP systolic 115–147; BP diastolic 45–80; PULSE 53–70; RESP 12–24; TEMP 36.7–37.1; O2SAT 90–98
[2019-09-28] MEDS: linezolid premix 600 MG/300 ML PREMIX 300 MG IV ×2 (00:50→13:05)
[2019-09-28] MEDS: heparin 5,000 unit/mL INJ 1 mL 5000 UNIT SUBCUT ×3 (00:50→17:49)
[2019-09-28 00:55] LABS: Sodium 145 mmol/L (136-145)
[2019-09-28 04:01] LABS: Basophils % 0.4 %; Eosinophils # 0.5 10^3/uL (0.0-0.8); Eosinophils % 6.2 %; Hematocrit 28.8 % (42.0-52.0); Hemoglobin 8.7 g/dL (11.7-16.6); Lymphocytes # 0.9 10^3/uL (0.8-4.8); Lymphocytes % 11.2 %; Mean Corpuscular HGB Conc 30.2 g/dL (30.0-36.0); Mean Corpuscular Hemoglobin 28.9 pg (28.0-34.0); Mean Corpuscular Volume 95.7 fL (80-94); Mean Platelet Volume 11.8 fL (7.4-10.4); Monocytes # 0.6 10^3/uL (0.2-0.9); Monocytes % 6.6 %; Neutrophils # 6.3 10^3/uL (1.8-7.7); Neutrophils % 74.9 %; Nucleated Red Blood Cells % 0 %; Platelet Count 138 10^3/cmm (130-400); Red Blood Count 3.01 10^6/uL (4.1-5.3); Red Cell Distribution Width 14.3 % (12.1-15.1); White Blood Count 8.4 10^3/uL (4.0-10.0)
[2019-09-28] MEDS: sodium chloride 0.45% 1,000 ML 100 ML IV ×2 (04:20→15:20)
[2019-09-28 04:43] LABS: Alanine Aminotransferase 26 U/L (0-41); Albumin Level 2.5 g/dL (3.5-5.2); Alkaline Phosphatase 73 IU/L (40-130); Anion Gap 18.9 (5-19); Aspartate Amino Transferase 14 U/L (0-40); Calcium 8.4 mg/dL (8.5-10.5); Carbon Dioxide 17 mmol/L (22-29); Chloride 113 mmol/L (98-107); Globulin 2.5 g/dL (1.3-4.6); Glucose 276 mg/dL (65-115); Magnesium 2.3 mg/dL (1.7-2.3); Osmolality Calculated 311 mOsm/kg (285-295); Potassium 3.9 mmol/L (3.5-5.1); Sodium 145 mmol/L (136-145); Total Bilirubin 0.3 mg/dL (0.15-1.2)
[2019-09-28 04:47] LABS: Blood Urea Nitrogen 102 mg/dL (8-23)
[2019-09-28] MEDS: piperacillin-tazobactam 3.375 GM in sodium chloride 0.9% (plus) 50 ML IV ×2 (06:16→21:20)
[2019-09-28 07:34] LABS: Glucose Point of Care 248 mg/dL (70-110)
--- NOTE | 2019-09-28 07:54 | USCV_ITS ---
Moy Fernandez Age: 69 Gender: M : 1950 Exam Date: 09/28/2019 09:09 Ordering Phys: Hira Ruiz MD Technologist: Chaya Decker [place] [facility] [place]: Shortness of breath BP: 143 / 56 HR: 63 Rhythm: Sinus Technical Quality: Suboptimal MEASUREMENTS (Male / Female) Normal Values 2D ECHO LV Diastolic Diameter PLAX 5.7 cm 4.2 - 5.9 / 3.9 - 5.3 cm LV Systolic Diameter PLAX 4.6 cm LV Chamber Size 4.6 cm IVS Diastolic Thickness 1.3 cm 0.6 - 1.0 / 0.6 - 0.9 cm IVS Systolic Thickness 1.5 cm LVPW Diastolic Thickness 1.1 cm 0.6 - 1.0 / 0.6 - 0.9 cm LVPW Systolic Thickness 1.5 cm RV Chamber Size 3.1 cm LVOT Diameter 2.0 cm LV Ejection Fraction 2D Teich 37.8 % LV Ejection Fraction MOD 2C 43.6 % LV Ejection Fraction 2C AL 44.8 % LA Diameter 5.0 cm LA Width 3.9 cm LA Height 6.7 cm RA Width 2.9 cm RA Height 5.1 cm Aorta at Sinotubular Diameter 2.8 cm M-MODE LV Diastolic Diameter MM 6.7 cm 4.2 - 5.9 / 3.9 - 5.3 cm LV Systolic Diameter MM 5.0 cm LV Ejection Fraction MM Teich 49.2 % IVS Diastolic Thickness MM 1.4 cm 0.6 - 1.0 / 0.6 - 0.9 cm IVS Systolic Thickness MM 1.3 cm LVPW Diastolic Thickness MM 1.5 cm 0.6 - 1.0 / 0.6 - 0.9 cm LVPW Systolic Thickness MM 1.6 cm Aortic Annulus Diameter 4.0 cm LA Ao Ratio MM 1.2 MV E Point Septal Separation 2.4 cm DOPPLER AV Peak Velocity 135.0 cm/s LVOT Peak Velocity 102.0 cm/s AV Area Cont Eq vti 2.2 cm squared AV Area Cont Eq pk 2.4 cm squared MV Area PHT 2.5 cm squared Mitral E to A Ratio 0.8 MV E' Velocity 7.0 cm/s Mitral E to MV E' Ratio 13.1 Mitral E to LV E' Lateral Ratio 11.5 Mitral E to LV E' Septal Ratio 15.4 TV Peak E Velocity 50.0 cm/s Right Atrial Pressure 3.0 mmHg PV Peak Velocity 101.0 cm/s RV Acceleration Time 0.1 s RV Ejection Time 0.3 s RV AcT/ET 0.4 FINDINGS Left Ventricle Normal LV size with a reduced ejection fraction of 45%. Moderate diffuse hypokinesia of the septum and the anteroseptal segments. Mildly dilated LV cavity.Grade I/IV diastolic dysfunction (abnormal relaxation filling pattern), normal to mildly elevated filling pressures. Right Ventricle Normal right ventricular size and systolic function. Right Atrium Normal right atrial size. Left Atrium Mildly increased left atrial size. Mitral Valve Thickened mitral valve. Trace mitral valve regurgitation. Aortic Valve Thickened aortic valve. Tricuspid Valve Trace tricuspid valve regurgitation. Pulmonic Valve Pulmonic valve not well visualized. Pericardium Normal pericardium without effusion. Aorta Normal ascending aorta dimension. CONCLUSIONS Normal LV size with a reduced ejection fraction of 45%. Moderate diffuse hypokinesia of the septum and the anteroseptal segments. Mildly dilated LV cavity.Grade I/IV diastolic dysfunction (abnormal relaxation filling pattern), normal to mildly elevated filling pressures. Mildly increased left atrial size. Thickened mitral valve. Trace mitral valve regurgitation. Trace tricuspid valve regurgitation. Compared to study from 06/23/2019, there may not be a significant change Dr Angeles Khan MD FACC (Electronically Signed) Final Date: 28 September 2019 14:11 S
--- NOTE | 2019-09-28 07:58 | PM.CONSULT ---
Providers/Reason For Consult Consulting Physican/Specialty*: Hira Ruiz MD Reason for Consult*: Sacral decubitus ulcer Attending Physician: Hira Ruiz MD Primary Care Provider: Sarah Tamayo MD History of Present Illness History of Present Illness Moy Fernandez is a 69 year old male who was brought to the emergency room after he was found on the floor by his hospice nurses and had apparently been laying around for couple of days. Patient was noted to have multiple maggots on his abdomen and feet. Patient has multiple comorbidities including chronic kidney disease and diastolic heart failure. I was consulted for sacral decubitus ulcer. Patient states that is tender. No fevers or chills. No drainage from the site. Review of Systems General: Reports: 10 or more systems reviewed and unremarkable except in HPI and below Meds/Allergies Home Medications and Allergies Home Medications Medication Instructions Recorded Confirmed Last Taken Type acetaminophen 650 mg PO Q6H PRN #0 tab 06/16/19 06/21/19 Unknown Rx Milk of Magnesia 30 ml PO DAILY PRN 06/21/19 06/21/19 Unknown History hydrocodone-acetaminophen 1 tab PO BID PRN 06/21/19 06/21/19 Unknown History insulin aspart U-100 [Novolog See Rx Instructions .ROUTE 06/30/19 Unknown Rx U-100 Insulin aspart] .COMPLEX #10 ml hydralazine 10 mg tablet 10 mg PO TID #270 tab 09/16/19 09/25/19 Unknown Rx furosemide 40 mg PO BID 09/25/19 09/25/19 Unknown History Allergies Allergy/AdvReac Type Severity Reaction Status Date / Time No Known Allergies Allergy Verified 05/23/19 10:46 Current Medications Current Medications Generic Name Dose Route Start Last Admin Trade Name Freq PRN Reason Stop Dose Admin Aspirin 81 mg 09/25/19 09:00 09/27/19 08:07 Aspirin Ec PO 81 mg DAILY YANELI Administration Atorvastatin Calcium 40 mg 09/25/19 21:00 09/27/19 21:12 Lipitor PO 40 mg BEDTIME YANELI Administration Clonidine HCl 0.1 mg 09/27/19 10:00 09/27/19 17:02 Catapres PO 0.1 mg BID YANELI Administration Heparin Sodium (Beef Lung) 5,000 unit 09/25/19 01:15 09/28/19 00:50 Heparin SUBCUT 5,000 unit Q8H YANELI Administration Hydralazine HCl 10 mg 09/27/19 09:00 09/27/19 21:12 Apresoline PO 10 mg TID YANELI Administration Piperacillin Sod/Tazobactam 50 mls @ 12.5 mls/hr 09/25/19 08:00 09/28/19 06:16 Sod 3.375 gm/ Sodium Chloride IV 12.5 mls/hr Q12H AYNELI Administration Protocol Linezolid 600 mg in 300 mls @ 300 mls/hr 09/27/19 12:00 09/28/19 04:21 Zyvox Premix IV Infused Q12H YANELI Infusion Protocol Sodium Chloride 1,000 mls @ 100 mls/hr 09/27/19 18:30 09/28/19 04:20 Sodium Chloride 0.45% IV 100 mls/hr .Q10H YANELI Administration Insulin Aspart 0 unit 09/25/19 08:00 09/27/19 17:03 Novolog SUBCUT 10 unit TIDWM YANELI Administration Protocol Levetiracetam 500 mg 09/27/19 18:00 09/27/19 17:03 Keppra PO 500 mg BID YANELI Administration Mupirocin 1 applic 09/26/19 18:00 09/27/19 17:03 Bactroban TOPICAL 1 applic BID YANELI Administration PFSH Acute PFSH: Medical History CHF (congestive heart failure) CKD (chronic kidney disease), stage III -known hx of CKD stage 3; baseline Cr is around 3-3.5 Combined systolic and diastolic congestive heart failure -has known hx of chronic combined systolic and diastolic CHF; no acute exacerbation currently -Echo (05/2018): EF=35% -stress testing in 05/2018 showing scarring with mild urmila-infarct ischemia in RCA territory Diabetes mellitus DNR (do not resuscitate) Hypertension Multilevel degenerative disc disease -has known hx of multilevel DJD, s/p spinal stimulator -hold opiates, sedating meds due to altered mental status -fall precautions -imaging reviewed, no acute findings Peripheral neuropathy Post-ictal state Rhabdomyolysis Seizure disorder Spinal cord stimulator status Spinal stenosis Type 2 diabetes mellitus Surgical History S/P CABG x 3 S/P insertion of spinal cord stimulator Family History Other Hyperlipidemia Hypertension Denies family history of Psychiatric illness Lung disease Social History Smoking and tobacco status: former smoker Alcohol intake: former Lives independently: Yes Current occupation: Living alone, he was discharged to home with home hospice Vitals/I&O/Wt Last Vital Signs Temp 98.8 F 09/27/19 16:00 Pulse 56 L 09/28/19 06:00 Resp 15 09/28/19 06:00 BP 143/56 09/28/19 06:00 Pulse Ox 96 09/27/19 22:00 09/27/19 09/28/19 09/28/19 22:59 06:59 14:59 Intake Total 3226 / 6359.333 1723.333 / 6359.333 Output Total 750 / 1250 500 / 1250 Balance 2476 / 5109.333 1223.333 / 5109.333 Physical Exam Narrative: EXAM NARRATIVE: HEENT: Normocephalic Eye: Sclera /conjunctiva normal Respiratory and chest: Bilateral clear breath sounds on auscultation Cardiovascular: Normal S1 and S2 heart sounds Abdomen: Soft to palpation Neurological: Oriented to place person and time Skin: Intact, 4 x 4 centimeter unstageable decubitus ulcer over the sacrum Urinary Catheter Management^: Denise: Cath Placed During This Visit: yes Reason for Continuing Indwelling Catheter: Accurate Measurement of Urinary Output in Critically Ill Patients Urinary Catheter Date of Insertion: 09/25/19 Urinary Catheter Time of Insertion: 22:30 Data Micro: Micro: Microbiology 09/24/19 23:00 Urine Culture - Fi nal Urine,Clean Catch A&P Assessment and plan (1) Sacral decubitus ulcer: 69-year-old gentleman with multiple comorbidities with a sacral decubitus ulcer which is unstageable. It is tender to palpation and therefore I will take him to the operating room tomorrow for debridement of decubitus ulcer under MAC Status: Acute Coding Level of Care Code Acute Rn Cardiovascular for [facility] Fwd Diagnoses Sacral decubitus ulcer L89.159
[2019-09-28] MEDS: aspirin 81 mg EC Tablet PO (08:12)
[2019-09-28] MEDS: hyDRALAzine 10 mg Tablet PO ×3 (08:12→21:28)
[2019-09-28] MEDS: levETIRAcetam 500 mg Tablet PO (08:12)
[2019-09-28] MEDS: cloNIDine 0.1 mg Tablet PO (08:14)
[2019-09-28] MEDS: mupirocin oint 22 gm 1 APPLIC TOPICAL ×2 (08:14→17:46)
[2019-09-28 10:32] LABS: Hematocrit 28.8 % (42.0-52.0); Hemoglobin 8.7 g/dL (11.7-16.6)
[2019-09-28 11:01] LABS: Folate Level 6.3 ng/mL (4.5-32.2)
[2019-09-28 11:22] LABS: Glucose Point of Care 209 mg/dL (70-110)
[2019-09-28] MEDS: pantoprazole 40 mg SDV IVP ×2 (12:04→22:46)
[2019-09-28 12:09] LABS: Ferritin 152 ng/mL (30-400)
--- NOTE | 2019-09-28 12:17 | P.PN_ITS ---
Subjective Subjective: Interval history: This morning upon entering room patient tells me to go away, states that he wants to go home, denies chest pain, shortness of breath, lightheadedness, dizziness, I advised him that he is he has significant renal failure which is improving, will take time, hyponatremia which is improving, significant urinary tract infection which will require continue ant ibiotics, he has a what looks like deep tissue infection of his sacrum, which might require surgical intervention and antibiotics, so he will likely be hospitalized for the next few days. Ideally she should go to a detention, but patient has already signed out AMA from a detention in the last few months, and again patient refuses to go to the detention, really wants to go home. I advised patient that he has a high risk of morbidity and mortality, high risk of readmission, high risk of comorbidities from his current admission if he does not follow medical advice and, go to group home. Voiced attending, all questions answered, still adamant about going home. Will move out of ICU this morning. Vitals/I&O/Wt Last Vital Signs Temp 98.2 F 09/28/19 08:00 Pulse 65 09/28/19 10:00 Resp 12 09/28/19 10:00 BP 146/59 09/28/19 08:14 Pulse Ox 97 09/28/19 10:00 09/27/19 09/28/19 09/28/19 22:59 06:59 14:59 Intake Total 3226 / 4636 1723.333 / 6359.333 240 / 240 Output Total 750 / 750 500 / 1250 Balance 2476 / 3886 1223.333 / 5109.333 240 / 240 Physical Exam Const: COMMON NORMALS: no acute distress and patient oriented x3 HENMT: COMMON NORMALS: normocephalic HEAD & SCALP: normocephalic Neck/C-Spine: COMMON NORMALS: no JVD Resp: COMMON NORMALS: normal respiratory effort, No retractions, No use of accessory muscles and clear to auscultation bilaterally AUSCULTATION: clear to auscultation bilaterally Cardio: COMMON NORMALS: no JVD, regular rate, regular rhythm, S1 normal heart sound present and S2 normal heart sound present RATE: regular rate RHYTHM: regular rhythm HEART SOUNDS: S1 normal heart sound present and S2 normal heart sound present GI: COMMON NORMALS: Normal to inspection, nondistended, normoactive bowel s ounds present, Soft to palpation, non-tender, No hepatosplenomegaly present, no masses and no bruits PALPATION: Yes Soft to palpation and Yes No hepatosplenomegaly present Extremity: COMMON NORMALS: capillary refill normal, no clubbing, cyanosis or edema, no calf tenderness and no pedal edema Neuro: COMMON NORMALS: patient oriented x3 Psych: COMMON NORMALS: mental status grossly normal Urinary Catheter Management^: Denise: Cath Placed During This Visit: yes Reason for Continuing Indwelling Catheter: Accurate Measurement of Urinary Output in Critically Ill Patients Urinary Catheter Date of Insertion: 09/25/19 Urinary Catheter Time of Insertion: 22:30 Data : 09/28/19 09:15 09/28/19 03:22 Micro: Microbiology 09/24/19 23:00 Urine Culture - Final Urine,Clean Catch A&P Assessment and plan (1) Hypernatremia: -Likely hypovolemic hypernatremia, serum sodium down to 145 from 170s -Free water deficit around 13 L -Currently on half-normal saline at 100 cc an hour -Neurochecks, seizure precautions Status: Acute (2) Acute renal failure: -Serum creatinine 5.3, BUN 102, potassium 3.9, bicarb 17 -5750cc -Continue to monitor urine output closely, monitor creatinine Status: Acute (3) Septic encephalopathy: -Secondary to severe urinary tract infection, improved -CT scan negative for obstructive uropathy -Continue Zyvox and Zosyn for antibiotic coverage -CT head negative for any acute pathology Status: Acute (4) NSTEMI (non-ST elevated myocardial infarction): -Baseline troponin VII 89, 6-hour 653, delta 135 -Slight ST depressions in 1 aVL, V5 V6 -Continue aspirin and statin -Likely type II NSTEMI related to dehydration, acute renal failure -Continue telemetry monitoring -We will order a cardiac echocardiogram this morning Status: Acute (5) Urinary tract infection: Status: Acute Qualifiers: Hematuria presence: without hematuria Urinary tract infection type: acute cystitis Qualified Code(s): N30.00 - Acute cystitis without hematuria (6) Dehydration, severe: Status: Acute (7) Acute kidney injury superimposed on chronic kidney disease: Status: Acute (8) Metabolic acidosis: Resolved Status: Acute (9) Dehydration: Status: Acute (10) Deep tissue injury: -Patient has a significant DTI of his sacrococcyx likely secondary to immobility, being on the ground for long period of time -Will likely require debridement, -Surgery has been consulted -Continue repositioning -Continue Zyvox for antibiotic coverage Status: Acute Additional A&P Information Metabolic acidosis due to uremia, high anion gap Bicarb still 17, will continue to monitor History of breakthrough seizures, continue Keppra 500 twice daily He was on home hospice at home, he has declined detention placement, he has no other family member here, currently wants to go home, high risk of readmission, high risk of future morbidity and mortality if he goes home, when about going home, but patient is alert oriented x3, can make his own decisions DVT prophylaxis: Heparin Low-sodium diet Likely transition out of ICU today, physical therapy, observational therapy, Attestations Medical Necessity Statement*: Patient requires continued hospitalization for hyponatremia, acute renal failure, septic encephalopathy, UTI, deep tissue infection of its sacrum Coding Level of Care Code Acute Liquor Tester for [facility] Daniel Diagnoses Hypernatremia E87.0 Acute renal failure N17.9 Septic encephalopathy G93.41 NSTEMI (non-ST elevated myocardial infarction) I21.4 Urinary tract infection N30.00 Hematuria presence: without hematuria Urinary tract infection type: acute cystitis Dehydration, severe E86.0 Acute kidney injury superimposed on chronic kidney disease N17.9; N18.9 Metabolic acidosis E87.2 Dehydration E86.0 Deep tissue injury T14.8XXA
[2019-09-28] MEDS: ondansetron 2 mg/ML SDV 2 mL 4 MG IVP (13:06)
[2019-09-28] MEDS: morphine 4 mg/mL SDV 1 mL 1 MG IVP (14:01)
[2019-09-28 14:13] LABS: Hematocrit 28.5 % (42.0-52.0); Hemoglobin 8.8 g/dL (11.7-16.6)
[2019-09-28 16:49] LABS: Glucose Point of Care 223 mg/dL (70-110)
[2019-09-28 20:35] LABS: Hematocrit 27.4 % (42.0-52.0); Hemoglobin 8.6 g/dL (11.7-16.6)
[2019-09-28] MEDS: atorvastatin 40 mg Tablet PO (21:28)
[2019-09-28 21:34] LABS: Glucose Point of Care 162 mg/dL (70-110)
[2019-09-29] VITALS (17 sets, daily range): BP systolic 118–159; BP diastolic 58–88; PULSE 53–61; RESP 14–24; TEMP 36.2–37.1; O2SAT 91–100
[2019-09-29] MEDS: linezolid premix 600 MG/300 ML PREMIX 300 MG IV ×3 (00:45→23:26)
[2019-09-29] MEDS: sodium chloride 0.45% 1,000 ML 100 ML IV ×2 (01:06→20:37)
[2019-09-29] MEDS: heparin 5,000 unit/mL INJ 1 mL 5000 UNIT SUBCUT ×3 (01:57→17:30)
[2019-09-29 04:24] LABS: Basophils % 0.5 %; Eosinophils # 0.4 10^3/uL (0.0-0.8); Eosinophils % 4.3 %; Hematocrit 27.2 % (42.0-52.0); Hemoglobin 8.4 g/dL (11.7-16.6); Lymphocytes # 0.9 10^3/uL (0.8-4.8); Lymphocytes % 11.1 %; Mean Corpuscular HGB Conc 30.9 g/dL (30.0-36.0); Mean Corpuscular Volume 97.1 fL (80-94); Mean Platelet Volume 11.4 fL (7.4-10.4); Monocytes # 0.7 10^3/uL (0.2-0.9); Monocytes % 8.2 %; Neutrophils # 6.2 10^3/uL (1.8-7.7); Neutrophils % 74.9 %; Nucleated Red Blood Cells % 0 %; Platelet Count 122 10^3/cmm (130-400); White Blood Count 8.2 10^3/uL (4.0-10.0)
[2019-09-29 04:45] LABS: Alanine Aminotransferase 19 U/L (0-41); Albumin Level 2.3 g/dL (3.5-5.2); Alkaline Phosphatase 65 IU/L (40-130); Anion Gap 16.8 (5-19); Aspartate Amino Transferase 9 U/L (0-40); Carbon Dioxide 18 mmol/L (22-29); Chloride 112 mmol/L (98-107); Globulin 2.7 g/dL (1.3-4.6); Glucose 154 mg/dL (65-115); Magnesium 2.1 mg/dL (1.7-2.3); Osmolality Calculated 300 mOsm/kg (285-295); Phosphorus 4.4 mg/dL (2.5-4.5); Potassium 3.8 mmol/L (3.5-5.1); Sodium 143 mmol/L (136-145); Total Bilirubin 0.3 mg/dL (0.15-1.2)
[2019-09-29 05:08] LABS: Blood Urea Nitrogen 92 mg/dL (8-23)
[2019-09-29 06:54] LABS: Glucose Point of Care 141 mg/dL (70-110)
[2019-09-29] MEDS: piperacillin-tazobactam 3.375 GM in sodium chloride 0.9% (plus) 50 ML IV ×2 (08:33→17:32)
[2019-09-29] MEDS: aspirin 81 mg EC Tablet PO (08:37)
[2019-09-29] MEDS: levETIRAcetam 500 mg Tablet PO ×2 (08:37→17:31)
[2019-09-29] MEDS: mupirocin oint 22 gm 1 APPLIC TOPICAL ×2 (08:37→17:31)
[2019-09-29] MEDS: hyDRALAzine 10 mg Tablet PO ×2 (08:37→20:39)
[2019-09-29] MEDS: cloNIDine 0.1 mg Tablet PO ×2 (08:38→17:30)
--- NOTE | 2019-09-29 09:43 | ANES.PREANE2 ---
Pre-Anesthetic Assessment Pre-Anesthetic Assessment: Height/Weight: Height 1.78 m Weight 97.296 kg Temp Pulse Resp BP Pulse Ox 98.7 F 58 L 18 134/62 94 09/29/19 07:00 09/29/19 07:00 09/29/19 07:00 09/29/19 08:38 09/29/19 07:00 Preop Diagnosis: sacral decubitus ulcer Proposed Procedure: Operation Date: 09/29/19 10:00 Proposed Procedures p Debridement of sacral decubitus ulcer(Not Applicable) - Hans Maurer MD Social: Social History: Tobacco (quit) and No alcohol Exam: Pre-Anes Outpt Exam: alert, oriented x 3, clear to auscultation bilaterally and regular rate & rhythm Airway: Submandibular: WNL Cervical ROM: Other (limited) MP: 3 Dentition: False (upper) and Other (very poor) History/ROS: No significant history except as noted Pulmonary: Pulmonary: COPD and MEJIA CV/HEM: CV/HEM: CAD, CHF, ND and PVD : : Chronic renal failure Hepatic: Hepatic: None reported GI: GI: GERD (occ) Metabolic: Metabolic: DM and Hyperlipidemia Musc/skel: Musc/skel: Lower Back Pain and OA/DJD Neuropsych: Neuropsych: Neuropathy and Seizure Anesthetic Plan: ASA status: 4 Anesthesia: Anesthesia Evaluation and MAC Risk of > 500 ml blood loss (7ml/kg in children): No Meds/Allergies Current Medications: Current Medications Generic Name Dose Route Start Last Admin Trade Name Freq PRN Reason Stop Dose Admin Aspirin 81 mg 09/25/19 09:00 09/29/19 08:37 Aspirin Ec PO 81 mg DAILY YANELI Administration Atorvastatin Calci um 40 mg 09/25/19 21:00 09/28/19 21:28 Lipitor PO 40 mg BEDTIME YANELI Administration Clonidine HCl 0.1 mg 09/27/19 10:00 09/29/19 08:38 Catapres PO 0.1 mg BID YANELI Administration Heparin Sodium (Be ef Lung) 5,000 unit 09/25/19 01:15 09/29/19 08:37 Heparin SUBCUT 5,000 unit Q8H YANELI Administration Hydralazine HCl 10 mg 09/27/19 09:00 09/29/19 08:37 Apresoline PO 10 mg TID YANELI Administration Piperacillin Sod/T azobactam 50 mls @ 12.5 mls /hr 09/25/19 08:00 09/29/19 08:33 Sod 3.375 gm/ So dium Chloride IV 12.5 mls/hr Q12H YANELI Administration Protocol Linezolid 600 mg in 300 mls @ 300 mls/hr 09/27/19 12:00 09/29/19 00:45 Zyvox Premix IV 300 mls/hr Q12H YANELI Administration Protocol Sodium Chloride 1,000 mls @ 100 m ls/hr 09/27/19 18:30 09/29/19 01:06 Sodium Chloride 0.45% IV 100 mls/hr .Q10H YANELI Administration Insulin Aspart 0 unit 09/25/19 08:00 09/29/19 08:37 Novolog SUBCUT Not Given TIDWM YANELI Protocol Insulin Detemir 8 unit 09/28/19 07:30 09/29/19 08:57 Levemir SUBCUT 8 unit BID YANELI Administration Levetiracetam 500 mg 09/27/19 18:00 09/29/19 08:37 Keppra PO 500 mg BID YANELI Administration Mupirocin 1 applic 09/26/19 18:00 09/29/19 08:37 Bactroban TOPICAL 1 applic BID YANELI Administration Ondansetron HCl 4 mg 09/28/19 12:35 09/28/19 13:06 Zofran IVP 4 mg Q6H PRN Administration NAUSEA AND VOMITI NG Pantoprazole Sodiu m 40 mg 09/28/19 10:25 09/28/19 22:46 Protonix IVP 40 mg Q12H YANELI Administration PFSH Anesthesia PFSH: Medical History CHF (congestive heart failure) CKD (chronic kidney disease), stage III -known hx of CKD stage 3; baseline Cr is around 3-3.5 Combined systolic and diastolic congestive heart failure -has known hx of chronic combined systolic and diastolic CHF; no acute exacerbation currently -Echo (05/2018): EF=35% -stress testing in 05/2018 showing scarring with mild urmila-infarct ischemia in RCA territory Diabetes mellitus DNR (do not resuscitate) Hypertension Multilevel degenerative disc disease -has known hx of multilevel DJD, s/p spinal stimulator -hold opiates, sedating meds due to altered mental status -fall precautions -imaging reviewed, no acute findings Peripheral neuropathy Post-ictal state Rhabdomyolysis Seizure disorder Spinal cord stimulator status Spinal stenosis Type 2 diabetes mellitus Surgical History S/P CABG x 3 S/P insertion of spinal cord stimulator Family History Other Hyperlipidemia Hypertension Denies family history of Psychiatric illness Lung disease Social History Smoking and tobacco status: former smoker Alcohol intake: former Lives independently: Yes Current occupation: Living alone, he was discharged to home with home hospice Data Anesthesia CBC & Chem 7: 09/29/19 03:43 09/29/19 03:43 Other Labs: Laboratory Results - last 48 hr 09/27/19 09/27/19 09/27/19 10:00 11:34 14:00 WBC RBC Hgb Hct MCV MCH MCHC RDW Plt Count MPV Neut % (Auto) Lymph % (Auto) [place] % (Auto) Eos % (Auto) Baso % (Auto) Reticulocyte % (Auto) Neut # (Auto) Lymph # (Auto) [place] # (Auto) Eos # (Auto) Baso # (Auto) Nucleated RBC % (auto) Nucleated RBCs # Sodium 151 H 149 H Potassium Chloride Carbon Dioxide Anion Gap BUN Creatinine Glucose POC Glucose 290 Calculated Osmolality Calcium Phosphorus Magnesium Ferritin Total Bilirubin AST ALT Alkaline Phosphatase Total Protein Albumin Globulin Folate 09/27/19 09/27/19 09/27/19 16:47 17:50 19:49 WBC RBC Hgb Hct MCV MCH MCHC RDW Plt Count MPV Neut % (Auto) Lymph % (Auto) [place] % (Auto) Eos % (Auto) Baso % (Auto) Reticulocyte % (Auto) Neut # (Auto) Lymph # (Auto) [place] # (Auto) Eos # (Auto) Baso # (Auto) Nucleated RBC % (auto) Nucleated RBCs # Sodium 146 H 145 Potassium Chloride Carbon Dioxide Anion Gap BUN Creatinine Glucose POC Glucose 316 Calculated Osmolality Calcium Phosphorus Magnesium Ferritin Total Bilirubin AST ALT Alkaline Phosphatase Total Protein Albumin Globulin Folate 09/27/19 09/28/19 09/28/19 21:10 00:21 03:22 WBC 8.4 RBC 3.01 L Hgb 8.7 L Hct 28.8 L MCV 95.7 H MCH 28.9 MCHC 30.2 RDW 14.3 Plt Count 138 MPV 11.8 H Neut % (Auto) 74.9 Lymph % (Auto) 11.2 [place] % (Auto) 6.6 Eos % (Auto) 6.2 Baso % (Auto) 0.4 Reticulocyte % (Auto) Neut # (Auto) 6.3 Lymph # (Auto) 0.9 [place] # (Auto) 0.6 Eos # (Auto) 0.5 Baso # (Auto) 0.0 Nucleated RBC % (auto) 0 Nucleated RBCs # 0.0 Sodium 145 Potassium Chloride Carbon Dioxide Anion Gap BUN Creatinine Glucose POC Glucose 256 Calculated Osmolality Calcium Phosphorus Magnesium Ferritin Total Bilirubin AST ALT Alkaline Phosphatase Total Protein Albumin Globulin Folate 09/28/19 09/28/19 09/28/19 03:22 07:18 09:15 WBC RBC Hgb 8.7 L Hct 28.8 L MCV MCH MCHC RDW Plt Count MPV Neut % (Auto) Lymph % (Auto) [place] % (Auto) Eos % (Auto) Baso % (Auto) Reticulocyte % (Auto) 1.0000 Neut # (Auto) Lymph # (Auto) [place] # (Auto) Eos # (Auto) Baso # (Auto) Nucleated RBC % (auto) Nucleated RBCs # Sodium 145 Potassium 3.9 Chloride 113 H Carbon Dioxide 17 L Anion Gap 18.9 BUN 102 H* Creatinine 5.3 H Glucose 276 H POC Glucose 248 Calculated Osmolality 311 H Calcium 8.4 L Phosphorus 4.0 Magnesium 2.3 Ferritin Total Bilirubin 0.3 AST 14 ALT 26 Alkaline Phosphatase 73 Total Protein 5.0 L Albumin 2.5 L Globulin 2.5 Folate 09/28/19 09/28/19 09/28/19 09:15 09:15 11:14 WBC RBC Hgb Hct MCV MCH MCHC RDW Plt Count MPV Neut % (Auto) Lymph % (Auto) [place] % (Auto) Eos % (Auto) Baso % (Auto) Reticulocyte % (Auto) Neut # (Auto) Lymph # (Auto) [place] # (Auto) Eos # (Auto) Baso # (Auto) Nucleated RBC % (auto) Nucleated RBCs # Sodium Potassium Chloride Carbon Dioxide Anion Gap BUN Creatinine Glucose POC Glucose 209 Calculated Osmolality Calcium Phosphorus Magnesium Ferritin 152 Total Bilirubin AST ALT Alkaline Phosphatase Total Protein Albumin Globulin Folate 6.3 09/28/19 09/28/19 09/28/19 14:05 16:43 20:15 WBC RBC Hgb 8.8 L 8.6 L Hct 28.5 L 27.4 L MCV MCH MCHC RDW Plt Count MPV Neut % (Auto) Lymph % (Auto) [place] % (Auto) Eos % (Auto) Baso % (Auto) Reticulocyte % (Auto) Neut # (Auto) Lymph # (Auto) [place] # (Auto) Eos # (Auto) Baso # (Auto) Nucleated RBC % (auto) Nucleated RBCs # Sodium Potassium Chloride Carbon Dioxide Anion Gap BUN Creatinine Glucose POC Glucose 223 Calculated Osmolality Calcium Phosphorus Magnesium Ferritin Total Bilirubin AST ALT Alkaline Phosphatase Total Protein Albumin Globulin Folate 09/28/19 09/29/19 09/29/19 21:15 03:43 03:43 WBC 8.2 RBC 2.80 L Hgb 8.4 L Hct 27.2 L MCV 97.1 H MCH 30.0 MCHC 30.9 RDW 14.0 Plt Count 122 L MPV 11.4 H Neut % (Auto) 74.9 Lymph % (Auto) 11.1 [place] % (Auto) 8.2 Eos % (Auto) 4.3 Baso % (Auto) 0.5 Reticulocyte % (Auto) Neut # (Auto) 6.2 Lymph # (Auto) 0.9 [place] # (Auto) 0.7 Eos # (Auto) 0.4 Baso # (Auto) 0.0 Nucleated RBC % (auto) 0 Nucleated RBCs # 0.0 Sodium 143 Potassium 3.8 Chloride 112 H Carbon Dioxide 18 L Anion Gap 16.8 BUN 92 H* Creatinine 5.0 H Glucose 154 H POC Glucose 162 Calculated Osmolality 300 H Calcium 8.0 L Phosphorus 4.4 Magnesium 2.1 Ferritin Total Bilirubin 0.3 AST 9 ALT 19 Alkaline Phosphatase 65 Total Protein 5.0 L Albumin 2.3 L Globulin 2.7 Folate 09/29/19 06:22 WBC RBC Hgb Hct MCV MCH MCHC RDW Plt Count MPV Neut % (Auto) Lymph % (Auto) [place] % (Auto) Eos % (Auto) Baso % (Auto) Reticulocyte % (Auto) Neut # (Auto) Lymph # (Auto) [place] # (Auto) Eos # (Auto) Baso # (Auto) Nucleated RBC % (auto) Nucleated RBCs # Sodium Potassium Chloride Carbon Dioxide Anion Gap BUN Creatinine Glucose POC Glucose 141 Calculated Osmolality Calcium Phosphorus Magnesium Ferritin Total Bilirubin AST ALT Alkaline Phosphatase Total Protein Albumin Globulin Folate Cardiac Studies: No Data to Display
--- NOTE | 2019-09-29 09:48 | SUR.PREOP ---
PATIENT IS ALERT AND ORIENTED. HE STATED HIS NAME, DATE OF , TODAY'S DATE AND DAY OF THE WEEK. HE ALSO STATED THE PROCEDURE THAT WE WOULD BE DOING FOR HIM TODAY. THIS NURSE OBTAINED INFORMED CONSENT FROM THE PATIENT FOR THE SURGICAL PROCEDURE.
[2019-09-29] MEDS: sodium chloride 0.9% 1,000 ML 30 ML IV (09:53)
--- NOTE | 2019-09-29 09:57 | PC.CHAP ---
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 visit [] Patient/Family/Request visit [] Outpatient visit [] Follow-up visit [] Physician referral [] Code/Alert [x] Routine visit [] Staff referral [] Actively dying [] Patient sleeping [] Family support [] [] Out of room [] Palliative care [] [] Receiving care in room [] Pre-surgical visit [] Trauma [] Long length of stay [] ICU visit [] Other: Relational/Emotional Strength [] Patient feels connected with others/family/visitors/staff [] Distress [] Loneliness/isolation [] Abandonment Spirituality of Patient [] Person of Ghislaine [] Attends Restorationism of their Ghislaine [] Believes in Prayer [] Reads Bible or Episcopal materials [] There are Spiritual issues to be addressed Polisher Balance Screwhead Interventions [x] Prayer [] Active listening [] Non-anxious presence [] Spiritual/emotional support [] Crisis/trauma care [] Spiritual counseling [] Bereavement support [] Provided bereavement packet [] Provided Bible/devotional materials [] Provided toy/stuffed animal, coloring book to patient or family member [] Provided Communion [] Anointing/Holden [] Salvation [x] Completed spiritual assessment [] Other: Impact on Illness or Injury [] Angry [] Fearful [] Anxious [] Often cries [] Exhaustion [] Unable to work [] Unable to attend mu-ism [] Unable to walk/stand [] Unable to read [] Unable to drive [] Unable to eat/drink [] Unable to sleep [] Unable to be with family [] Patient intubated [] Other: Summary Prayed for patients pain. Time spent with patient 5 min
--- NOTE | 2019-09-29 10:18 | PM.PN ---
Subjective Subjective: Interval history: No issues overnight Vitals/I&O/Wt Last Vital Signs Temp 97.8 F 09/29/19 10:02 Pulse 58 L 09/29/19 10:02 Resp 18 09/29/19 10:02 BP 159/88 09/29/19 10:02 Pulse Ox 96 09/29/19 10:02 09/28/19 09/29/19 09/29/19 22:59 06:59 14:59 Intake Total 1026.667 / 2976.667 800 / 800 Output Total 1500 / 2300 800 / 2300 Balance -1500 / 676.667 226.667 / 676.667 800 / 800 Physical Exam Narrative: EXAM NARRATIVE: Unstageable sacral decubitus ulcer Urinary Catheter Management^: Denise: Cath Placed During This Visit: yes Reason for Continuing Indwelling Catheter: Accurate Measurement of Urinary Output in Critically Ill Patients Urinary Catheter Date of Insertion: 09/25/19 Urinary Catheter Time of Insertion: 22:30 Data : 09/29/19 03:43 09/29/19 03:43 A&P Assessment and plan (1) Sacral decubitus ulcer: Plan for debridement under MAC today Status: Acute Attestations Medical Necessity Statement*: Sacral decubitus ulcer Coding Level of Care Code Acute Electrophysiology Tech for [facility] Diagnoses Sacral decubitus ulcer L89.159
[2019-09-29 10:31] LABS: Levetiracetam Keppra <2.0 mcg/mL
--- NOTE | 2019-09-29 10:45 | PM.OP ---
Operative Report Date of procedure: September 29, 2019 Pre-op Diagnosis: sacral decubitus ulcer Post-op Diagnosis: Stage III sacral decubitus ulcer measuring 5 x 3 x 1.5 cm Procedure Done: Excisional debridement of sacral decubitus ulcer measuring 5 x 3 x 1.5 cm using electrocautery Specimens removed/disposition: wound cultures Surgeon: Hans Maurer Anesthesia: MAC Estimated blood loss (mL): 20 Condition: stable Disposition: PACU Procedure: The patient was taken to the operating room and placed in the left lateral position under MAC. Patient is on therapeutic IV antibiotics. The area around the sacral decubitus ulcer was prepped and draped in sterile manner. Using electrocautery excisional debridement of necrotic skin, subcutaneous tissue and muscle was performed until there was punctate bleeding noted resulting in a wound measuring 5 x 3 x 1.5 cm. Wound was irrigated with saline, hemostasis ensured and packed with Kerlix gauze soaked in 0.5% Marcaine and covered with ABDs. Patient was stable throughout the procedure.
[2019-09-29 12:06] LABS: Glucose Point of Care 115 mg/dL (70-110)
--- NOTE | 2019-09-29 14:50 | PC.SOCIAL ---
IMM Update Pg 2 Of [facility] upated. Initialed, dated, and timed and placed in chart. Copy provided.
[2019-09-29 16:31] LABS: Glucose Point of Care 145 mg/dL (70-110)
--- NOTE | 2019-09-29 17:34 | PM.PN ---
Subjective Subjective: Interval history: No acute overnight events. 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0,improving Status: Acute (3) Septic encephalopathy: -Secondary to severe urinary tract infection, improved -CT scan negative for obstructive uropathy -Continue Zyvox and Zosyn for antibiotic coverage -CT head negative for any acute pathology Status: Acute (4) NSTEMI (non-ST elevated myocardial infarction): -Baseline troponin VII 89, 6-hour 653, delta 135 -Slight ST depressions in 1 aVL, V5 V6 -Continue aspirin and statin -Likely type II NSTEMI related to dehydration, acute renal failure -Continue telemetry monitoring -We will order a cardiac echocardiogram this morning Status: Acute (5) Urinary tract infection: Status: Acute Qualifiers: Hematuria presence: without hematuria Urinary tract infection type: acute cystitis Qualified Code(s): N30.00 - Acute cystitis without hematuria (6) Dehydration, severe: Status: Acute (7) Acute kidney injury superimposed on chronic kidney disease: Status: Acute (8) Metabolic acidosis: Resolved Status: Acute (9) Dehydration: Status: Acute (10) Deep tissue injury: -Patient has a significant DTI of his sacrococcyx likely secondary to immobility, being on the ground for long period of time -s/p OR debridement today, cx pending Status: Acute Additional A&P Information Metabolic acidosis due to uremia, high anion gap Bicarb still 17, will continue to monitor History of breakthrough seizures, continue Keppra 500 twice daily He was on home hospice at home, he has declined longterm placement, he has no other family member here, currently wants to go home, high risk of readmission, high risk of future morbidity and mortality if he goes home, when about going home, but patient is alert oriented x3, can make his own decisions DVT prophylaxis: Heparin Low-sodium diet Attestations Medical Necessity Statement*: s/p debridement today, ongoing need for iv abx Coding Level of Care Code Acute Compounding Scaler for g Fwd Diagnoses Hypernatremia E87.0 Acute renal failure N17.9 Septic encephalopathy G93.41 NSTEMI (non-ST elevated myocardial infarction) I21.4 Urinary tract infection N30.00 Hematuria presence: without hematuria Urinary tract infection type: acute cystitis Dehydration, severe E86.0 Acute kidney injury superimposed on chronic kidney disease N17.9; N18.9 Metabolic acidosis E87.2 Dehydration E86.0 Deep tissue injury T14.8XXA
[2019-09-29] MEDS: atorvastatin 40 mg Tablet PO (20:39)
[2019-09-29 21:44] LABS: Glucose Point of Care 113 mg/dL (70-110)
[2019-09-29] MEDS: pantoprazole 40 mg SDV IVP (22:48)
[2019-09-30] VITALS (13 sets, daily range): BP systolic 114–149; BP diastolic 63–74; PULSE 53–76; RESP 18–24; TEMP 36.7–37.3; O2SAT 92–98
[2019-09-30 05:27] LABS: Basophils % 0.4 %; Eosinophils # 0.3 10^3/uL (0.0-0.8); Eosinophils % 4.8 %; Hematocrit 25.9 % (42.0-52.0); Hemoglobin 8.1 g/dL (11.7-16.6); Lymphocytes # 0.9 10^3/uL (0.8-4.8); Lymphocytes % 12.7 %; Mean Corpuscular HGB Conc 31.3 g/dL (30.0-36.0); Mean Corpuscular Hemoglobin 30.5 pg (28.0-34.0); Mean Corpuscular Volume 97.4 fL (80-94); Mean Platelet Volume 11.3 fL (7.4-10.4); Monocytes # 0.5 10^3/uL (0.2-0.9); Monocytes % 7.5 %; Neutrophils # 4.9 10^3/uL (1.8-7.7); Neutrophils % 73.4 %; Nucleated Red Blood Cells % 0 %; Platelet Count 122 10^3/cmm (130-400); Red Blood Count 2.66 10^6/uL (4.1-5.3); Red Cell Distribution Width 14.1 % (12.1-15.1); White Blood Count 6.7 10^3/uL (4.0-10.0)
[2019-09-30 06:01] LABS: Alanine Aminotransferase 16 U/L (0-41); Albumin Level 2.4 g/dL (3.5-5.2); Alkaline Phosphatase 60 IU/L (40-130); Anion Gap 18.2 (5-19); Aspartate Amino Transferase 13 U/L (0-40); Calcium 8.2 mg/dL (8.5-10.5); Carbon Dioxide 17 mmol/L (22-29); Chloride 114 mmol/L (98-107); Globulin 2.6 g/dL (1.3-4.6); Glucose 102 mg/dL (65-115); Magnesium 2.1 mg/dL (1.7-2.3); Osmolality Calculated 300 mOsm/kg (285-295); Phosphorus 5.3 mg/dL (2.5-4.5); Potassium 4.2 mmol/L (3.5-5.1); Sodium 145 mmol/L (136-145); Total Bilirubin 0.3 mg/dL (0.15-1.2)
[2019-09-30] MEDS: piperacillin-tazobactam 3.375 GM in sodium chloride 0.9% (plus) 50 ML IV ×2 (06:09→18:03)
[2019-09-30] MEDS: sodium chloride 0.45% 1,000 ML 100 ML IV ×2 (06:09→18:03)
[2019-09-30] MEDS: heparin 5,000 unit/mL INJ 1 mL 5000 UNIT SUBCUT ×3 (06:09→21:48)
[2019-09-30 06:14] LABS: Blood Urea Nitrogen 83 mg/dL (8-23)
[2019-09-30 07:09] LABS: Glucose Point of Care 96 mg/dL (70-110)
[2019-09-30] MEDS: cloNIDine 0.1 mg Tablet PO ×2 (08:41→17:57)
[2019-09-30] MEDS: hyDRALAzine 10 mg Tablet PO ×3 (08:41→21:48)
[2019-09-30] MEDS: aspirin 81 mg EC Tablet PO (08:41)
[2019-09-30] MEDS: mupirocin oint 22 gm 1 APPLIC TOPICAL ×2 (08:42→17:58)
[2019-09-30] MEDS: levETIRAcetam 500 mg Tablet PO ×2 (08:42→17:58)
[2019-09-30] MEDS: pantoprazole 40 mg SDV IVP ×2 (10:12→22:15)
[2019-09-30] MEDS: linezolid premix 600 MG/300 ML PREMIX 300 MG IV (11:19)
[2019-09-30 11:52] LABS: Glucose Point of Care 121 mg/dL (70-110)
--- NOTE | 2019-09-30 12:24 | ANE.PACU2 ---
Inpatient post-anesthesia follow up: Airway intact: Yes Vital signs: Temperature 98.0 F Pulse Rate [Right Radial] 97 Pulse Rate 59 Respiratory Rate 20 Blood Pressure [Ri ght Arm] 163/86 Blood Pressure 140/69 Pulse Oximetry 94 Oxygen Delivery Me thod [ Nasal Cannula Current Rate & Del marielle] Oxygen Delivery Me thod Nasal Cannula Oxygen Flow Rate [ Current Rate 2 & Delivery] Oxygen Flow Rate 2 Fraction of Inspir ed Oxygen Hydration adequate: Yes Nausea and vomiting: No Pain level: 3 Mental status: Baseline
--- NOTE | 2019-09-30 14:49 | PC.NURSE ---
lethargic pt too sleepy to do neuro checks
[2019-09-30 16:46] LABS: Glucose Point of Care 167 mg/dL (70-110)
--- NOTE | 2019-09-30 17:16 | P.PN_ITS ---
Subjective Subjective: Interval history: No issues overnight, patient does not appear to be confused. States that the sacral area is tender Vitals/I&O/Wt Last Vital Signs Temp 98.3 F 09/30/19 15:29 Pulse 68 09/30/19 15:29 Resp 18 09/30/19 15:29 BP 114/63 09/30/19 15:29 Pulse Ox 95 09/30/19 15:29 09/30/19 09/30/19 09/30/19 06:59 14:59 22:59 Intake Total 1253.333 / 2453.333 240 / 300 60 / 300 Output Total 0 / 1214 275 / 275 Balance 1253.333 / 1239.333 240 / 25 -215 / 25 Physical Exam Narrative: EXAM NARRATIVE: Sacrum: Wound has good granulation tissue, no significant cellulitis or purulent drainage noted Urinary Catheter Management^: Denise: Cath Placed During This Visit: yes Reason for Continuing Indwelling Catheter: Perioperative Use in Selected Surgeries Urinary Catheter Date of Insertion: 09/25/19 Urinary Catheter Time of Insertion: 22:30 Data : 09/30/19 04:45 09/30/19 04:45 Micro: Microbiology 09/29/19 11:10 Gram Stain - Final Buttock Tissue Culture - Preliminary Gram Negative Rods A&P Assessment and plan (1) Sacral decubitus ulcer: Continue with wet-to-dry daily dressing change Medical management as per Dr. Fernandez Status: Acute Attestations Medical Necessity Statement*: Sacral decubitus ulcer, acute renal failure, Coding Level of Care Code Acute Director Of Public Works for [facility] Diagnoses Sacral decubitus ulcer L89.159
--- NOTE | 2019-09-30 18:17 | P.PN_ITS ---
Subjective Subjective: Interval history: no acute overnight events, patient asleep, woke up on being examined, however requested to go back to sleep. 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 Status: Acute (2) Acute renal failure: -Serum creatinine improving, diuresing -Patients' renal function has been gradually declining since earlier this year Status: Acute (3) Septic encephalopathy: -Secondary to severe urinary tract infection -CT scan negative for obstructive uropathy, no acute abdominal sources identified -CT head negative for any acute pathology - Encephalopathy is multifactorial related to hypernatremia, sepsis - Based on review off prior notes, his mental status appears to wax and wane -currently on empiric antimicrobials. Status: Acute (4) NSTEMI (non-ST elevated myocardial infarction): -Baseline troponin VII 89, 6-hour 653, delta 135 -Slight ST depressions in 1 aVL, V5 V6 -Continue aspirin and statin -Likely type II NSTEMI related to dehydration, acute renal failure -Continue telemetry monitoring -echocardiogram with combined systolic and diastolic dysfunction - Status: Acute (5) Urinary tract infection: Status: Acute Qualifiers: Hematuria presence: without hematuria Urinary tract infection type: acute cystitis Qualified Code(s): N30.00 - Acute cystitis without hematuria (6) Dehydration, severe: Now resolved Status: Acute (7) Acute kidney injury superimposed on chronic kidney disease: Status: Acute (8) Metabolic acidosis: Resolved Status: Acute (9) Dehydration: Status: Acute (10) Deep tissue injury: -Patient has a significant DTI of his sacrococcyx likely secondary to immobility, being on the ground for long period of time Status: Acute Additional A&P Information Metabolic acidosis due to uremia, high anion gap History of breakthrough seizures, continue Keppra 500 twice daily He was on home hospice at home, he has declined group home placement in the past and during this admission Low-sodium diet Attestations Medical Necessity Statement*: improving sepsis, s.p OR debridement Coding Level of Care Code Acute Window And Door Installer for [facility] Fwd Diagnoses Hypernatremia E87.0 Acute renal failure N17.9 Septic encephalopathy G93.41 NSTEMI (non-ST elevated myocardial infarction) I21.4 Urinary tract infection N30.00 Hematuria presence: without hematuria Urinary tract infection type: acute cystitis Dehydration, severe E86.0 Acute kidney injury superimposed on chronic kidney disease N17.9; N18.9 Metabolic acidosis E87.2 Dehydration E86.0 Deep tissue injury T14.8XXA
[2019-09-30] MEDS: atorvastatin 40 mg Tablet PO (21:47)
[2019-09-30 22:04] LABS: Glucose Point of Care 221 mg/dL (70-110)
[2019-10-01] VITALS (12 sets, daily range): BP systolic 123–156; BP diastolic 61–70; PULSE 62–71; RESP 18–24; TEMP 36.7–37.2; O2SAT 94–98
[2019-10-01] MEDS: linezolid premix 600 MG/300 ML PREMIX 200 MG IV ×2 (00:37→11:24)
[2019-10-01] MEDS: piperacillin-tazobactam 3.375 GM in sodium chloride 0.9% (plus) 50 ML IV ×2 (05:12→18:23)
[2019-10-01] MEDS: sodium chloride 0.45% 1,000 ML 100 ML IV (05:12)
[2019-10-01] MEDS: heparin 5,000 unit/mL INJ 1 mL 5000 UNIT SUBCUT ×3 (05:12→22:42)
[2019-10-01 05:49] LABS: Basophils % 0.4 %; Eosinophils # 0.3 10^3/uL (0.0-0.8); Eosinophils % 3.5 %; Hematocrit 24.2 % (42.0-52.0); Hemoglobin 7.7 g/dL (11.7-16.6); Lymphocytes # 0.8 10^3/uL (0.8-4.8); Lymphocytes % 10.8 %; Mean Corpuscular HGB Conc 31.8 g/dL (30.0-36.0); Mean Corpuscular Hemoglobin 29.1 pg (28.0-34.0); Mean Corpuscular Volume 91.3 fL (80-94); Mean Platelet Volume 11.3 fL (7.4-10.4); Monocytes # 0.6 10^3/uL (0.2-0.9); Monocytes % 8.3 %; Neutrophils # 5.8 10^3/uL (1.8-7.7); Neutrophils % 75.8 %; Nucleated Red Blood Cells % 0 %; Platelet Count 120 10^3/cmm (130-400); Red Blood Count 2.65 10^6/uL (4.1-5.3); Red Cell Distribution Width 13.9 % (12.1-15.1); White Blood Count 7.7 10^3/uL (4.0-10.0)
[2019-10-01 06:14] LABS: Alanine Aminotransferase 17 U/L (0-41); Albumin Level 2.2 g/dL (3.5-5.2); Alkaline Phosphatase 63 IU/L (40-130); Anion Gap 17.1 (5-19); Aspartate Amino Transferase 16 U/L (0-40); Blood Urea Nitrogen 76 mg/dL (8-23); Calcium 7.5 mg/dL (8.5-10.5); Carbon Dioxide 17 mmol/L (22-29); Chloride 110 mmol/L (98-107); Globulin 3.1 g/dL (1.3-4.6); Glucose 198 mg/dL (65-115); Magnesium 1.8 mg/dL (1.7-2.3); Osmolality Calculated 295 mOsm/kg (285-295); Phosphorus 5.1 mg/dL (2.5-4.5); Potassium 4.1 mmol/L (3.5-5.1); Sodium 140 mmol/L (136-145); Total Bilirubin 0.2 mg/dL (0.15-1.2); Total Protein 5.3 g/dL (6.6-8.7)
[2019-10-01 06:41] LABS: Glucose Point of Care 178 mg/dL (70-110)
[2019-10-01] MEDS: aspirin 81 mg EC Tablet PO (08:12)
[2019-10-01] MEDS: levETIRAcetam 500 mg Tablet PO ×2 (08:12→17:37)
[2019-10-01] MEDS: cloNIDine 0.1 mg Tablet PO ×2 (08:12→17:37)
[2019-10-01] MEDS: hyDRALAzine 10 mg Tablet PO ×3 (08:12→22:42)
[2019-10-01] MEDS: mupirocin oint 22 gm 1 APPLIC TOPICAL ×2 (08:14→17:37)
--- NOTE | 2019-10-01 10:21 | DCPLANNER ---
Pg 2 of IM updated and reviewed with pt. No questions, copy provided.
[2019-10-01] MEDS: pantoprazole 40 mg SDV IVP ×2 (10:33→22:48)
[2019-10-01 11:33] LABS: Glucose Point of Care 201 mg/dL (70-110)
[2019-10-01 16:41] LABS: Glucose Point of Care 235 mg/dL (70-110)
--- NOTE | 2019-10-01 22:19 | PM.PN ---
Subjective Subjective: Interval history: Patient seen and examined this afternoon. He is noted to be somnolent, though wakes up eaily to calling name and answers questions, speech is slurred, takes him some time to form sentences. States he wants to go home. 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: no focal neuro deficits Urinary Catheter Management^: Denise: Cath Placed During This Visit: yes Reason for Continuing Indwelling Catheter: Assist Healing of Perineal & Sacral Wounds- Incontinent Patients Urinary Catheter Date of Insertion: 09/25/19 Urinary Catheter Time of Insertion: 22:30 Data : 10/01/19 05:26 10/01/19 05:26 Micro: Microbiology 09/29/19 11:10 Gram Stain - Final Buttock Tissue Culture - Preliminary Proteus mirabilis A&P Assessment and plan (1) Hypernatremia: -Likely hypovolemic hypernatremia, serum sodium now normalized -mental status continues to wax and wane, per chart review, noted to be alert and awake, however over past 2 days is mostly asleep, chronically ill appearing, wakes up to calling name but does not participate in extended conversation. -Neurochecks, seizure precautions - Per review of records dating back to earlier this year, patient has been gradually declining with his comorbities including CKD and combined HF getting much worse. He has been discharged to [facility] earlier, however was adamant that he will no longer stay there and then was discharged with home hospice. We contacted home health services today to plan discharge, however were informed that we he was discharged from hospice on September 18, however reason is not clear at this time. - It is evident from records review and patient's current state that he is unable to care for himself. - Will attempt to reach his daughter and make disposition decisions as at this time, it is unsafe for patient to return home. He is somnolent and I do not belive he is able to follow my conversation to be able to make an informed decision at this time. Status: Acute (2) Acute renal failure: -Serum creatinine improving, diuresing -Patients' renal function has been gradually declining since earlier this year Status: Acute (3) Septic encephalopathy: -Secondary to severe urinary tract infection -CT scan negative for obstructive uropathy -CT head negative for any acute pathology - Encephalopathy is multifactorial related to hypernatremia, sepsis - Based on review off prior notes, his mental status appears to wax and wane - he has had an adequate course of empiric antibiotics, is afberile and s/p debridement of chronic back wound, will discontinue antibiotics today Status: Acute (4) NSTEMI (non-ST elevated myocardial infarction): -Baseline troponin VII 89, 6-hour 653, delta 135 -Slight ST depressions in 1 aVL, V5 V6 -Continue aspirin and statin -Likely type II NSTEMI related to dehydration, acute renal failure -Continue telemetry monitoring -echocardiogram with combined systolic and diastolic dysfunction - Status: Acute (5) Urinary tract infection: Status: Acute Qualifiers: Hematuria presence: without hematuria Urinary tract infection type: acute cystitis Qualified Code(s): N30.00 - Acute cystitis without hematuria (6) Dehydration, severe: Now resolved Status: Acute (7) Acute kidney injury superimposed on chronic kidney disease: Status: Acute (8) Metabolic acidosis: Resolved Status: Acute (9) Dehydration: Status: Acute (10) Deep tissue injury: -Patient has a significant DTI of his sacrococcyx likely secondary to immobility, being on the ground for long period of time -s/p OR debridement, wet to dry dressings, d/c systemic antibiotics Status: Acute Additional A&P Information Metabolic acidosis due to uremia, high anion gap History of breakthrough seizures, continue Keppra 500 twice daily He was on home hospice at home, however per discussion with [facility] services today it apppears he was discharged from hospice services earlier this month. he has declined detention placement in the past and during this admission, however given his mental status, it is quite apparent that he will not be in a position to take of himself if he returns home without any caretakers. he is not awake enought today for me to initiate a conversation regarding placement. will attempt to reach his daughter to discuss disposition. If he returns home, home hospice would be most appropriate. DVT prophylaxis: Heparin Low-sodium diet Attestations Medical Necessity Statement*: waxing and waning mentation, [facility], made compliacted by his mental status Coding Level of Care Code Acute Supervisor Phosphoric Acid for [facility] Fwd Diagnoses Hypernatremia E87.0 Acute renal failure N17.9 Septic encephalopathy G93.41 NSTEMI (non-ST elevated myocardial infarction) I21.4 Urinary tract infection N30.00 Hematuria presence: without hematuria Urinary tract infection type: acute cystitis Dehydration, severe E86.0 Acute kidney injury superimposed on chronic kidney disease N17.9; N18.9 Metabolic acidosis E87.2 Dehydration E86.0 Deep tissue injury T14.8XXA
[2019-10-01] MEDS: atorvastatin 40 mg Tablet PO (22:41)
[2019-10-02] VITALS (7 sets, daily range): BP systolic 134–177; BP diastolic 67–79; PULSE 60–77; RESP 18–24; TEMP 36.5–36.9; O2SAT 96–98
--- NOTE | 2019-10-02 04:00 | XR_ITS ---
WS: [id number] XR chest 1V portable [id number] REASON FOR EXAM: dyspnea FINDINGS: Infiltrate with atelectasis right lung base. There is partial clearing of both lung aguil[place] as compared to previous exam of September 26, 2019. Sternotomy changes are seen. XR/XR chest 1V portable [id number] IMPRESSION: Persistent atelectasis pneumonia right lung base Partial clearing of the congestion both lung aguilera Cardiomegaly Previous sternotomy.
[2019-10-02 05:01] LABS: Basophils % 0.3 %; Eosinophils # 0.3 10^3/uL (0.0-0.8); Eosinophils % 4.6 %; Hematocrit 23.2 % (42.0-52.0); Hemoglobin 7.6 g/dL (11.7-16.6); Lymphocytes # 0.8 10^3/uL (0.8-4.8); Lymphocytes % 11.5 %; Mean Corpuscular HGB Conc 32.8 g/dL (30.0-36.0); Mean Corpuscular Hemoglobin 30.2 pg (28.0-34.0); Mean Corpuscular Volume 92.1 fL (80-94); Monocytes # 0.6 10^3/uL (0.2-0.9); Neutrophils # 5.4 10^3/uL (1.8-7.7); Neutrophils % 74.8 %; Nucleated Red Blood Cells % 0 %; Platelet Count 123 10^3/cmm (130-400); Red Blood Count 2.52 10^6/uL (4.1-5.3); Red Cell Distribution Width 14.4 % (12.1-15.1); White Blood Count 7.2 10^3/uL (4.0-10.0)
[2019-10-02] MEDS: heparin 5,000 unit/mL INJ 1 mL 5000 UNIT SUBCUT ×3 (05:12→22:24)
[2019-10-02 05:33] LABS: Alanine Aminotransferase 15 U/L (0-41); Albumin Level 2.3 g/dL (3.5-5.2); Alkaline Phosphatase 57 IU/L (40-130); Anion Gap 18.4 (5-19); Aspartate Amino Transferase 14 U/L (0-40); Blood Urea Nitrogen 77 mg/dL (8-23); Calcium 7.9 mg/dL (8.5-10.5); Carbon Dioxide 16 mmol/L (22-29); Chloride 113 mmol/L (98-107); Globulin 2.7 g/dL (1.3-4.6); Glucose 158 mg/dL (65-115); Osmolality Calculated 299 mOsm/kg (285-295); Potassium 4.4 mmol/L (3.5-5.1); Sodium 143 mmol/L (136-145); Total Bilirubin 0.3 mg/dL (0.15-1.2)
[2019-10-02 06:15] LABS: Glucose Point of Care 156 mg/dL (70-110)
--- NOTE | 2019-10-02 07:59 | PC.NURSE ---
The patient refused a bath for today. He stated that he wants to go home today
[2019-10-02] MEDS: hyDRALAzine 10 mg Tablet PO ×3 (09:00→22:24)
[2019-10-02] MEDS: levETIRAcetam 500 mg Tablet PO ×2 (09:00→17:34)
[2019-10-02] MEDS: cloNIDine 0.1 mg Tablet PO ×2 (09:00→17:33)
[2019-10-02] MEDS: pantoprazole DR 40 mg Tablet PO ×2 (09:00→17:34)
[2019-10-02] MEDS: FUROsemide 40 mg Tablet 20 MG PO (09:00)
[2019-10-02] MEDS: aspirin 81 mg EC Tablet PO (09:00)
[2019-10-02] MEDS: TRAMadol 50 mg Tablet PO ×2 (09:23→17:34)
--- NOTE | 2019-10-02 10:28 | PM.PN ---
Subjective Subjective: Interval history: Patient is going home on hospice states that the sacrum is tender Vitals/I&O/Wt Last Vital Signs Temp 98.1 F 10/02/19 07:58 Pulse 68 10/02/19 07:58 Resp 18 10/02/19 07:58 BP 177/69 10/02/19 07:58 Pulse Ox 97 10/02/19 07:58 10/01/19 10/02/19 10/02/19 22:59 06:59 14:59 Intake Total 600 / 1190 240 / 1190 240 / 240 Output Total 875 / 1725 850 / 1725 Balance -275 / -535 -610 / -535 240 / 240 Physical Exam Narrative: EXAM NARRATIVE: Sacrum: Sacral decubitus ulcer, minimal necrotic tissue, no significant erythema Urinary Catheter Management^: Denise: Cath Placed During This Visit: yes Reason for Continuing Indwelling Catheter: Assist Healing of Perineal & Sacral Wounds- Incontinent Patients Urinary Catheter Date of Insertion: 09/25/19 Urinary Catheter Time of Insertion: 22:30 Data : 10/02/19 04:36 10/02/19 04:36 Micro: Microbiology 09/29/19 11:10 Gram Stain - Final Buttock Tissue Culture - Preliminary Proteus mirabilis A&P Assessment and plan (1) Sacral decubitus ulcer: Wet-to-dry daily dressing change Wound care with home health or follow-up in wound care clinic Status: Acute Attestations Medical Necessity Statement*: Sacral decubitus ulcer Coding Level of Care Code Acute Lead Javascript Developer for [employer] Sanchez Diagnoses Sacral decubitus ulcer L89.159
[2019-10-02 11:51] LABS: Glucose Point of Care 195 mg/dL (70-110)
--- NOTE | 2019-10-02 14:56 | PM.PN ---
Subjective Subjective: Interval history: No new complaints today. Noted to be more alert and awake today. He has elected to return home with hospice, arrangements are underway. Medications: Reviewed: Yes Vitals/I&O/Wt Last Vital Signs Temp 98.5 F 10/02/19 11:39 Pulse 64 10/02/19 11:39 Resp 18 10/02/19 11:39 BP 157/70 10/02/19 11:39 Pulse Ox 96 10/02/19 11:39 10/01/19 10/02/19 10/02/19 22:59 06:59 14:59 Intake Total 600 / 950 240 / 1190 360 / 360 Output Total 875 / 875 850 / 1725 Balance -275 / 75 -610 / -535 360 / 360 Physical Exam Narrative: EXAM NARRATIVE: GEN: Awake, alert, chronically ill appearing man in no apparent acute distress CVS: S1S2 N RS: B/L scattered rales on exam Abd: Soft, nt/nd , bs+ EMT P: no focal neuro deficits Urinary Catheter Management^: Denise: Cath Placed During This Visit: yes Reason for Continuing Indwelling Catheter: Assist Healing of Perineal & Sacral Wounds- Incontinent Patients Urinary Catheter Date of Insertion: 09/25/19 Urinary Catheter Time of Insertion: 22:30 Data : 10/02/19 04:36 10/02/19 04:36 Micro: Microbiology 09/29/19 11:10 Gram Stain - Final Buttock Tissue Culture - Preliminary Proteus mirabilis A&P Assessment and plan (1) Hypernatremia: -Likely hypovolemic hypernatremia, serum sodium now normalized -mental status continues to wax and wane, mnore awake today -Neurochecks, seizure precautions . Status: Acute (2) Acute renal failure: -Serum creatinine continues to be at 5.0 -Patients' renal function has been gradually declining since earlier this year, now developed CKD, refusing further evaluation or dialysis Status: Acute (3) Septic encephalopathy: -Secondary to severe urinary tract infection, now resolved -CT scan negative for obstructive uropathy, no acute abdominal sources identified -CT head negative for any acute pathology - Encephalopathy is multifactorial related to hypernatremia, sepsis - Based on review of prior notes, his mental status appears to wax and wane - He received an empiric course of antimicorbials during course of admission with zosyn and zyvox. these have since been discontinued due to resolution of sepsis is afberile and s/p debridement of chronic back wound, and development of pancytopenia which may be a side effect of zyvox. There is no further benefit at this time in continuing abx. Status: Acute (4) NSTEMI (non-ST elevated myocardial infarction): -Baseline troponin VII 89, 6-hour 653, delta 135 -Slight ST depressions in 1 aVL, V5 V6 -Continue aspirin and statin -Likely type II NSTEMI related to dehydration, acute renal failure -Continue telemetry monitoring -echocardiogram with combined systolic and diastolic dysfunction - Status: Acute (5) Urinary tract infection: Status: Acute Qualifiers: Hematuria presence: without hematuria Urinary tract infection type: acute cystitis Qualified Code(s): N30.00 - Acute cystitis without hematuria (6) Dehydration, severe: Now resolved Status: Acute (7) Acute kidney injury superimposed on chronic kidney disease: Status: Acute (8) Metabolic acidosis: Resolved Status: Acute (9) Dehydration: Status: Acute (10) Deep tissue injury: -Patient has a significant DTI of his sacrococcyx likely secondary to immobility, being on the ground for long period of time Status: Acute Additional A&P Information Metabolic acidosis due to uremia, high anion gap History of breakthrough seizures, continue Keppra 500 twice daily Overall patient's prognosis is extremely poor given multiorgan involevement by way of CHF, CKD, metabolic derangements, inability to care for self but insistence on returning home, high risk of repeated infections due to chronic back wound, UTIs due to obtructive uropathy, seizures. He understands the risks associated with returning home, however insists on doing so. Home hospice has been arranged as a discharge plan. Called his daughter to update- got voicemail- awaiting callback. 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
[2019-10-02 16:57] LABS: Glucose Point of Care 197 mg/dL (70-110)
[2019-10-02 21:52] LABS: Glucose Point of Care 199 mg/dL (70-110)
[2019-10-02] MEDS: atorvastatin 40 mg Tablet PO (22:24)
[2019-10-03] VITALS (8 sets, daily range): BP systolic 120–161; BP diastolic 57–75; PULSE 59–70; RESP 16–22; TEMP 36.4–36.9; O2SAT 96–99
[2019-10-03] MEDS: heparin 5,000 unit/mL INJ 1 mL 5000 UNIT SUBCUT ×3 (05:21→20:57)
[2019-10-03 06:41] LABS: Glucose Point of Care 140 mg/dL (70-110)
[2019-10-03] MEDS: FUROsemide 40 mg Tablet 20 MG PO (08:36)
[2019-10-03] MEDS: cloNIDine 0.1 mg Tablet PO ×2 (08:36→17:11)
[2019-10-03] MEDS: levETIRAcetam 500 mg Tablet PO ×2 (08:36→17:11)
[2019-10-03] MEDS: aspirin 81 mg EC Tablet PO (08:36)
[2019-10-03] MEDS: hyDRALAzine 10 mg Tablet PO ×3 (08:37→20:56)
[2019-10-03] MEDS: pantoprazole DR 40 mg Tablet PO ×2 (08:37→17:11)
[2019-10-03] MEDS: mupirocin oint 22 gm 1 APPLIC TOPICAL ×2 (08:41→17:11)
[2019-10-03 11:12] LABS: Glucose Point of Care 155 mg/dL (70-110)
--- NOTE | 2019-10-03 11:23 | PC.SOCIAL ---
IMM Update Pg 2 of IMM given and explained to patient. Copy provided to patient and original placed in chart.
--- NOTE | 2019-10-03 13:47 | PM.PN ---
Subjective Subjective: Interval history: awake and alert today. No new complaints. feels well. Able to hold a conversation with me. States now he would like SNF placement over home as he agrees he cannot take care of himself at home/ has been resisant to make the transition so far as he ahs a pet dog and doesnt know what to do with it. 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 Status: Acute (2) Acute renal failure: -Serum creatinine continues to be at 5.0, diuresing -Patients' renal function has been gradually declining since earlier this year, now developed CKD, refusing further evaluation or dialysis Status: Acute (3) Septic encephalopathy: -Secondary to severe urinary tract infection, now resolved -CT scan negative for obstructive uropathy, no acute abdominal sources identified -CT head negative for any acute pathology - Encephalopathy is multifactorial related to hypernatremia, sepsis - He received an empiric course of antimicorbials during course of admission with zosyn and zyvox. these have since been discontinued due to resolution of sepsis, is afberile and s/p debridement of chronic back wound, and development of pancytopenia which may be a side effect of zyvox. There is no further benefit at this time in continuing abx. Status: Acute (4) NSTEMI (non-ST elevated myocardial infarction): -Baseline troponin VII 89, 6-hour 653, delta 135 -Slight ST depressions in 1 aVL, V5 V6 -Continue aspirin and statin -Likely type II NSTEMI related to dehydration, acute renal failure -Continue telemetry monitoring -echocardiogram with combined systolic and diastolic dysfunction - Status: Acute (5) Urinary tract infection: Status: Acute Qualifiers: Hematuria presence: without hematuria Urinary tract infection type: acute cystitis Qualified Code(s): N30.00 - Acute cystitis without hematuria (6) Dehydration, severe: Now resolved Status: Acute (7) Acute kidney injury superimposed on chronic kidney disease: Status: Acute (8) Metabolic acidosis: Resolved Status: Acute (9) Dehydration: Status: Acute (10) Deep tissue injury: -Patient has a significant DTI of his sacrococcyx likely secondary to immobility, being on the ground for long period of time Status: Acute Additional A&P Information Metabolic acidosis due to uremia, high anion gap History of breakthrough seizures, continue Keppra 500 twice daily Overall patient's prognosis is extremely poor given multiorgan involevement by way of CHF, CKD, metabolic derangements, inability to care for self, high risk of repeated infections due to chronic back wound, UTIs due to obtructive uropathy, seizures. He understands the risks associated with returning home, but had been inissting during admission to return home for [facility] Home hospice had been arranged as a discharge plan. This was discussed with his daughter as well. Today, he states he is amenable to transitioning to a SNF instead. States he has been contemplating extension edger residence in a facility, however does not want to give up his pet dog and that is why has been hesistant. However he understands that his life expectancy is limited and he will need to make arrangements for his pet either way. For now, he states he would like to at least try short term SNF and then transition to prison if he is able to make arrangements. Working with case management on abpve changes currently Attestations Medical Necessity Statement*: disposition decisions ongoing Coding Level of Care Code Acute Laborer High Density Press for [employer] Fwd Diagnoses Hypernatremia E87.0 Acute renal failure N17.9 Septic encephalopathy G93.41 NSTEMI (non-ST elevated myocardial infarction) I21.4 Urinary tract infection N30.00 Hematuria presence: without hematuria Urinary tract infection type: acute cystitis Dehydration, severe E86.0 Acute kidney injury superimposed on chronic kidney disease N17.9; N18.9 Metabolic acidosis E87.2 Dehydration E86.0 Deep tissue injury T14.8XXA
[2019-10-03] MEDS: TRAMadol 50 mg Tablet PO (16:49)
[2019-10-03 17:18] LABS: Glucose Point of Care 151 mg/dL (70-110)
[2019-10-03] MEDS: atorvastatin 40 mg Tablet PO (20:56)
[2019-10-03 21:13] LABS: Glucose Point of Care 134 mg/dL (70-110)
[2019-10-04] VITALS (8 sets, daily range): BP systolic 126–156; BP diastolic 64–77; PULSE 61–71; RESP 18–22; TEMP 36.3–37.1; O2SAT 96–99
[2019-10-04] MEDS: heparin 5,000 unit/mL INJ 1 mL 5000 UNIT SUBCUT ×3 (05:03→21:40)
[2019-10-04 07:11] LABS: Glucose Point of Care 106 mg/dL (70-110)
[2019-10-04] MEDS: FUROsemide 40 mg Tablet 20 MG PO (08:13)
[2019-10-04] MEDS: pantoprazole DR 40 mg Tablet PO ×2 (08:13→17:17)
[2019-10-04] MEDS: aspirin 81 mg EC Tablet PO (08:13)
[2019-10-04] MEDS: levETIRAcetam 500 mg Tablet PO ×2 (08:13→17:17)
[2019-10-04] MEDS: cloNIDine 0.1 mg Tablet PO ×2 (08:14→17:16)
[2019-10-04] MEDS: mupirocin oint 22 gm 1 APPLIC TOPICAL ×2 (08:15→17:17)
[2019-10-04] MEDS: hyDRALAzine 10 mg Tablet PO ×3 (08:19→21:40)
[2019-10-04 11:15] LABS: Glucose Point of Care 126 mg/dL (70-110)
[2019-10-04 16:47] LABS: Glucose Point of Care 120 mg/dL (70-110)
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
[2019-10-04 21:25] LABS: Glucose Point of Care 164 mg/dL (70-110)
[2019-10-04] MEDS: atorvastatin 40 mg Tablet PO (21:40)
[2019-10-05] VITALS (8 sets, daily range): BP systolic 143–161; BP diastolic 66–81; PULSE 64–74; RESP 16–20; TEMP 36.3–36.9; O2SAT 95–99
[2019-10-05] MEDS: TRAMadol 50 mg Tablet PO ×2 (00:22→17:17)
[2019-10-05] MEDS: heparin 5,000 unit/mL INJ 1 mL 5000 UNIT SUBCUT ×3 (05:53→20:44)
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
[2019-10-05 06:42] LABS: Glucose Point of Care 136 mg/dL (70-110)
[2019-10-05] MEDS: pantoprazole DR 40 mg Tablet PO ×2 (07:56→17:14)
[2019-10-05] MEDS: cloNIDine 0.1 mg Tablet PO ×2 (07:56→17:14)
[2019-10-05] MEDS: FUROsemide 40 mg Tablet 20 MG PO (07:57)
[2019-10-05] MEDS: aspirin 81 mg EC Tablet PO (07:57)
[2019-10-05] MEDS: levETIRAcetam 500 mg Tablet PO ×2 (07:57→17:14)
[2019-10-05] MEDS: hyDRALAzine 10 mg Tablet PO ×3 (07:57→20:44)
[2019-10-05] MEDS: mupirocin oint 22 gm 1 APPLIC TOPICAL (07:58)
--- NOTE | 2019-10-05 09:57 | DCPLANNER ---
Pg 2 of IM updated and reviewed with pt. He doesn't comment or question either way, he is focused on his blanket and the need for another. Copy provided.
--- NOTE | 2019-10-05 10:54 | PC.CHAP ---
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 egg packer visit [] Patient/Family/Request visit [] Outpatient visit [] Follow-up visit [] Physician referral [] Code/Alert [X] Routine visit [] Staff referral [] Actively dying [X] Patient sleeping [] Family support [] [] Out of room [] Palliative care [] [] Receiving care in room [] Pre-surgical visit [] Trauma [] Long length of stay [] ICU visit [] Other: Relational/Emotional Strength [] Patient feels connected with others/family/visitors/staff [] Distress [] Loneliness/isolation [] Abandonment Spirituality of Patient [] Person of Ghislaine [] Attends Mu-Ism of their Ghislaine [] Believes in Prayer [] Reads Bible or Baptist materials [] There are Spiritual issues to be addressed Commercial Real Estate Underwriter Interventions [] Prayer [] Active listening [] Non-anxious presence [] Spiritual/emotional support [] Crisis/trauma care [] Spiritual counseling [] Bereavement support [] Provided bereavement packet [] Provided Bible/devotional materials [] Provided toy/stuffed animal, coloring book to patient or family member [] Provided Communion [] Anointing/[place] [] Salvation [] Completed spiritual assessment [] Other: Impact on Illness or Injury [] Angry [] Fearful [] Anxious [] Often cries [] Exhaustion [] Unable to work [] Unable to attend jain [] Unable to walk/stand [] Unable to read [] Unable to drive [] Unable to eat/drink [] Unable to sleep [] Unable to be with family [] Patient intubated [] Other: Summary: two attempts to visit patient were made; sleeping both times Time spent with patient
[2019-10-05 11:51] LABS: Glucose Point of Care 177 mg/dL (70-110)
[2019-10-05 16:38] LABS: Glucose Point of Care 188 mg/dL (70-110)
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
[2019-10-05] MEDS: atorvastatin 40 mg Tablet PO (20:44)
[2019-10-05 21:28] LABS: Glucose Point of Care 148 mg/dL (70-110)
[2019-10-06] VITALS (8 sets, daily range): BP systolic 124–158; BP diastolic 63–76; PULSE 60–76; RESP 18–24; TEMP 36.3–37.1; O2SAT 94–99
[2019-10-06 04:20] LABS: Basophils % 0.6 %; Eosinophils # 0.4 10^3/uL (0.0-0.8); Eosinophils % 5.9 %; Hematocrit 24.2 % (42.0-52.0); Hemoglobin 7.6 g/dL (11.7-16.6); Lymphocytes % 15.6 %; Mean Corpuscular HGB Conc 31.4 g/dL (30.0-36.0); Mean Corpuscular Hemoglobin 29.3 pg (28.0-34.0); Mean Corpuscular Volume 93.4 fL (80-94); Mean Platelet Volume 10.8 fL (7.4-10.4); Monocytes # 0.5 10^3/uL (0.2-0.9); Monocytes % 7.6 %; Neutrophils # 4.6 10^3/uL (1.8-7.7); Neutrophils % 69.8 %; Nucleated Red Blood Cells % 0 %; Platelet Count 136 10^3/cmm (130-400); Red Blood Count 2.59 10^6/uL (4.1-5.3); Red Cell Distribution Width 15.2 % (12.1-15.1); White Blood Count 6.6 10^3/uL (4.0-10.0)
[2019-10-06 04:48] LABS: Alanine Aminotransferase 20 U/L (0-41); Albumin Level 2.5 g/dL (3.5-5.2); Alkaline Phosphatase 63 IU/L (40-130); Anion Gap 17.2 (5-19); Aspartate Amino Transferase 22 U/L (0-40); Blood Urea Nitrogen 59 mg/dL (8-23); Calcium 8.2 mg/dL (8.5-10.5); Carbon Dioxide 18 mmol/L (22-29); Chloride 110 mmol/L (98-107); Globulin 2.6 g/dL (1.3-4.6); Glucose 135 mg/dL (65-115); Osmolality Calculated 293 mOsm/kg (285-295); Potassium 4.2 mmol/L (3.5-5.1); Sodium 141 mmol/L (136-145); Total Bilirubin 0.2 mg/dL (0.15-1.2); Total Protein 5.1 g/dL (6.6-8.7)
[2019-10-06 07:08] LABS: Glucose Point of Care 124 mg/dL (70-110)
[2019-10-06] MEDS: levETIRAcetam 500 mg Tablet PO ×2 (08:47→17:55)
[2019-10-06] MEDS: cloNIDine 0.1 mg Tablet PO ×2 (08:47→17:55)
[2019-10-06] MEDS: aspirin 81 mg EC Tablet PO (08:47)
[2019-10-06] MEDS: pantoprazole DR 40 mg Tablet PO ×2 (08:48→17:55)
[2019-10-06] MEDS: FUROsemide 40 mg Tablet 20 MG PO (08:48)
[2019-10-06] MEDS: hyDRALAzine 10 mg Tablet PO ×3 (08:49→20:59)
[2019-10-06] MEDS: mupirocin oint 22 gm 1 APPLIC TOPICAL ×2 (08:50→17:55)
--- NOTE | 2019-10-06 09:20 | PC.CHAP ---
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 electrocardiograph repairer visit [] Patient/Family/Request visit [] Outpatient visit [x] Follow-up visit [] Physician referral [] Code/Alert [x] Routine visit [] Staff referral [] Actively dying [] Patient sleeping [] Family support [] [] Out of room [] Palliative care [] [] Receiving care in room [] Pre-surgical visit [] Trauma [] Long length of stay [] ICU visit [] Other: Relational/Emotional Strength [] Patient feels connected with others/family/visitors/staff [] Distress [] Loneliness/isolation [] Abandonment Spirituality of Patient [] Person of Ghislaine [] Attends Scientologist of their Ghislaine [] Believes in Prayer [] Reads Bible or Tenriism materials [] There are Spiritual issues to be addressed Paper Bundler Interventions [x] Prayer [x] Active listening [x] Non-anxious presence [] Spiritual/emotional support [] Crisis/trauma care [] Spiritual counseling [] Bereavement support [] Provided bereavement packet [] Provided Bible/devotional materials [] Provided toy/stuffed animal, coloring book to patient or family member [] Provided Communion [] Anointing/[place] [] Salvation [x] Completed spiritual assessment [] Other: Impact on Illness or Injury [] Angry [x] Fearful [] Anxious [] Often cries [] Exhaustion [] Unable to work [] Unable to attend mormonism [] Unable to walk/stand [] Unable to read [] Unable to drive [] Unable to eat/drink [] Unable to sleep [] Unable to be with family [] Patient intubated [] Other: Summary Patient not handling aging process well. Discussed not concentrating on what he can no longer do, but what he can do. Time spent with patient 10 min
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
[2019-10-06 12:34] LABS: Glucose Point of Care 159 mg/dL (70-110)
[2019-10-06 13:26] LABS: Hematocrit 29.5 % (42.0-52.0)
[2019-10-06 15:04] LABS: Folate Level 8.6 ng/mL (4.5-32.2)
[2019-10-06 15:26] LABS: Ferritin 697 ng/mL (30-400); Iron 40 ug/dL (59-158)
[2019-10-06 15:41] LABS: Vitamin B12 578 pg/mL (232-1245)
[2019-10-06 16:36] LABS: Percent Saturation 18.7 % (20-50); Total Iron Binding Capacity 213 mcg/dl; Unsaturated Iron Binding 173 ug/dL (112-347)
[2019-10-06 17:32] LABS: Glucose Point of Care 179 mg/dL (70-110)
[2019-10-06 18:11] LABS: Hemoglobin 8.5 g/dL (11.7-16.6)
[2019-10-06] MEDS: atorvastatin 40 mg Tablet PO (20:59)
[2019-10-06 21:05] LABS: Glucose Point of Care 176 mg/dL (70-110)
[2019-10-07] VITALS (8 sets, daily range): BP systolic 138–154; BP diastolic 74–88; PULSE 68–76; RESP 18–24; TEMP 36.6–37.1; O2SAT 95–98
[2019-10-07 00:37] LABS: Hematocrit 23.3 % (42.0-52.0); Hemoglobin 7.3 g/dL (11.7-16.6)
[2019-10-07 05:14] LABS: Basophils % 0.5 %; Eosinophils # 0.4 10^3/uL (0.0-0.8); Eosinophils % 5.2 %; Hematocrit 24.3 % (42.0-52.0); Hemoglobin 7.7 g/dL (11.7-16.6); Lymphocytes # 0.7 10^3/uL (0.8-4.8); Lymphocytes % 9.5 %; Mean Corpuscular HGB Conc 31.7 g/dL (30.0-36.0); Mean Corpuscular Volume 94.6 fL (80-94); Mean Platelet Volume 9.9 fL (7.4-10.4); Monocytes # 0.5 10^3/uL (0.2-0.9); Monocytes % 6.2 %; Neutrophils # 6.1 10^3/uL (1.8-7.7); Neutrophils % 78.2 %; Nucleated Red Blood Cells % 0 %; Platelet Count 137 10^3/cmm (130-400); Red Blood Count 2.57 10^6/uL (4.1-5.3); Red Cell Distribution Width 15.2 % (12.1-15.1); White Blood Count 7.8 10^3/uL (4.0-10.0)
[2019-10-07 05:35] LABS: Alanine Aminotransferase 21 U/L (0-41); Albumin Level 2.4 g/dL (3.5-5.2); Alkaline Phosphatase 63 IU/L (40-130); Aspartate Amino Transferase 19 U/L (0-40); Blood Urea Nitrogen 53 mg/dL (8-23); Calcium 8.4 mg/dL (8.5-10.5); Carbon Dioxide 19 mmol/L (22-29); Chloride 109 mmol/L (98-107); Globulin 2.6 g/dL (1.3-4.6); Glucose 122 mg/dL (65-115); Magnesium 1.5 mg/dL (1.7-2.3); Osmolality Calculated 290 mOsm/kg (285-295); Phosphorus 4.3 mg/dL (2.5-4.5); Sodium 140 mmol/L (136-145); Total Bilirubin 0.2 mg/dL (0.15-1.2)
[2019-10-07 06:51] LABS: Glucose Point of Care 113 mg/dL (70-110)
[2019-10-07] MEDS: FUROsemide 40 mg Tablet 20 MG PO (08:41)
[2019-10-07] MEDS: aspirin 81 mg EC Tablet PO (08:41)
[2019-10-07] MEDS: levETIRAcetam 500 mg Tablet PO ×2 (08:41→17:26)
[2019-10-07] MEDS: cloNIDine 0.1 mg Tablet PO ×2 (08:41→17:26)
[2019-10-07] MEDS: hyDRALAzine 10 mg Tablet PO ×3 (08:41→21:48)
[2019-10-07] MEDS: pantoprazole DR 40 mg Tablet PO ×2 (08:42→17:26)
[2019-10-07] MEDS: mupirocin oint 22 gm 1 APPLIC TOPICAL ×2 (08:45→17:27)
--- NOTE | 2019-10-07 10:15 | PC.SOCIAL ---
IMM Update PG. 2 of IMM updated. Initialed, dated, and timed, and placed in chart, Copy provided to patient.
[2019-10-07 10:55] LABS: Glucose Point of Care 154 mg/dL (70-110)
[2019-10-07 12:11] LABS: Hematocrit 26.9 % (42.0-52.0); Hemoglobin 8.6 g/dL (11.7-16.6)
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
[2019-10-07] MEDS: HYDROcodone-acetaminophen 5-325 mg Tablet 1 TAB PO (15:51)
[2019-10-07 16:22] LABS: Glucose Point of Care 175 mg/dL (70-110)
--- NOTE | 2019-10-07 16:53 | PC.OT ---
OT note: Attempted this morning and pt requested to hold until after dressing change. Attempted this afternoon and pt sleeping. Will attempt tomorrow as able.
[2019-10-07 18:47] LABS: Hematocrit 23.3 % (42.0-52.0); Hemoglobin 7.4 g/dL (11.7-16.6)
[2019-10-07] MEDS: atorvastatin 40 mg Tablet PO (21:48)
[2019-10-07 22:14] LABS: Glucose Point of Care 153 mg/dL (70-110)
[2019-10-08] VITALS (8 sets, daily range): BP systolic 121–149; BP diastolic 66–76; PULSE 58–72; RESP 18–24; TEMP 36.6–37.2; O2SAT 96–98
[2019-10-08 05:29] LABS: Basophils % 0.6 %; Eosinophils # 0.5 10^3/uL (0.0-0.8); Eosinophils % 6.8 %; Hematocrit 26.6 % (42.0-52.0); Hemoglobin 8.1 g/dL (11.7-16.6); Lymphocytes # 0.8 10^3/uL (0.8-4.8); Lymphocytes % 10.3 %; Mean Corpuscular HGB Conc 30.5 g/dL (30.0-36.0); Mean Corpuscular Hemoglobin 29.9 pg (28.0-34.0); Mean Corpuscular Volume 98.2 fL (80-94); Mean Platelet Volume 10.4 fL (7.4-10.4); Monocytes # 0.4 10^3/uL (0.2-0.9); Monocytes % 5.9 %; Neutrophils # 5.5 10^3/uL (1.8-7.7); Neutrophils % 76.1 %; Nucleated Red Blood Cells % 0 %; Platelet Count 148 10^3/cmm (130-400); Red Blood Count 2.71 10^6/uL (4.1-5.3); Red Cell Distribution Width 15.8 % (12.1-15.1); White Blood Count 7.3 10^3/uL (4.0-10.0)
[2019-10-08 05:54] LABS: Alanine Aminotransferase 22 U/L (0-41); Albumin Level 2.7 g/dL (3.5-5.2); Alkaline Phosphatase 64 IU/L (40-130); Anion Gap 15.1 (5-19); Aspartate Amino Transferase 19 U/L (0-40); Blood Urea Nitrogen 52 mg/dL (8-23); Calcium 8.5 mg/dL (8.5-10.5); Carbon Dioxide 21 mmol/L (22-29); Chloride 109 mmol/L (98-107); Globulin 2.7 g/dL (1.3-4.6); Glucose 120 mg/dL (65-115); Magnesium 1.4 mg/dL (1.7-2.3); Osmolality Calculated 292 mOsm/kg (285-295); Phosphorus 4.5 mg/dL (2.5-4.5); Potassium 4.1 mmol/L (3.5-5.1); Sodium 141 mmol/L (136-145); Total Bilirubin 0.2 mg/dL (0.15-1.2); Total Protein 5.4 g/dL (6.6-8.7)
[2019-10-08 06:46] LABS: Glucose Point of Care 127 mg/dL (70-110)
[2019-10-08] MEDS: hyDRALAzine 10 mg Tablet PO ×3 (08:38→21:30)
[2019-10-08] MEDS: cloNIDine 0.1 mg Tablet PO ×2 (08:38→18:08)
[2019-10-08] MEDS: aspirin 81 mg EC Tablet PO (08:39)
[2019-10-08] MEDS: levETIRAcetam 500 mg Tablet PO ×2 (08:39→18:08)
[2019-10-08] MEDS: pantoprazole DR 40 mg Tablet PO ×2 (08:39→18:08)
[2019-10-08] MEDS: FUROsemide 40 mg Tablet 20 MG PO (08:39)
[2019-10-08] MEDS: mupirocin oint 22 gm 1 APPLIC TOPICAL ×2 (08:43→18:12)
[2019-10-08] MEDS: HYDROcodone-acetaminophen 5-325 mg Tablet 1 TAB PO (09:34)
[2019-10-08 11:35] LABS: Glucose Point of Care 148 mg/dL (70-110)
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
[2019-10-08 17:07] LABS: Glucose Point of Care 182 mg/dL (70-110)
[2019-10-08] MEDS: atorvastatin 40 mg Tablet PO (21:30)
[2019-10-08 21:33] LABS: Glucose Point of Care 180 mg/dL (70-110)
--- NOTE | 2019-10-08 22:15 | PC.NURSE ---
DURING INITIAL SHIFT ASSESSMENT THE PATIENT'S RIGHT HEEL WAS NOTED TO HAVE A SMALL OPTAFOAM DRESSING ROLLING OFF HEEL. WHEN THE DRESSING WAS REMOVED, THE WOUND WAS NOTED TO BE NECROTIC, SLOUGHING, SKIN PEELING, AND FOUL ODOR PRESENT WITH YELLOW/BROWN DRAINAGE. THE WOUND MEASURED 2.5 CM X 2.5 CM. THE SURROUNDING TISSUE IS MOIST AND PEELING OFF IN A THICK LAYER OF TISSUE. TISSUE UNDER THE LARGE LAYER IS DARK RED IN COLOR, PLACED LARGE TISSUE BACK OVER WOUND THAT HAS NOT FULLY DETACHED. THE PATIENT DENIED ANY PAIN PRESENT.THE TISSUE ON THE LATERAL RIGHT FOOT IS SHINY AND VERY SOFT. THE PATIENT HAS MINIMAL FEELING OF SENSATION IN THE ENTIRE FOOT. THE WOUND WAS CLEANED WITH SALINE AND PATTED DRY WITH 4X4. AN OPTAFOAM WAS PLACED OVER THE WOUND. PATIENT TOLERATED WELL. SEE WOUND ASSESSMENT FOR FURTHER INFORMATION. LEFT HEEL NOTED TO HAVE SOFT, BLACK 3 CM X2 CM AREA. BILATERAL HEELS FLOATED WITH PILLOWS. SEE WOUND ASSESSMENT FOR FURTHER INFORMATION.
[2019-10-09 00:02] VITALS: BP 133/70; PULSE 62; RESP 20; TEMP 36.9; O2SAT 96
[2019-10-09 04:31] VITALS: BP 150/67; PULSE 65; RESP 20; TEMP 37.1; O2SAT 98
[2019-10-09 05:47] LABS: Basophils % 0.3 %; Eosinophils # 0.6 10^3/uL (0.0-0.8); Eosinophils % 8.3 %; Hematocrit 24.6 % (42.0-52.0); Hemoglobin 7.9 g/dL (11.7-16.6); Lymphocytes # 0.9 10^3/uL (0.8-4.8); Lymphocytes % 12.8 %; Mean Corpuscular HGB Conc 32.1 g/dL (30.0-36.0); Mean Corpuscular Hemoglobin 30.2 pg (28.0-34.0); Mean Corpuscular Volume 93.9 fL (80-94); Mean Platelet Volume 10.3 fL (7.4-10.4); Monocytes # 0.4 10^3/uL (0.2-0.9); Monocytes % 6.2 %; Neutrophils # 4.8 10^3/uL (1.8-7.7); Neutrophils % 72.2 %; Nucleated Red Blood Cells % 0 %; Platelet Count 159 10^3/cmm (130-400); Red Blood Count 2.62 10^6/uL (4.1-5.3); Red Cell Distribution Width 15.7 % (12.1-15.1); White Blood Count 6.7 10^3/uL (4.0-10.0)
[2019-10-09 06:07] LABS: Alanine Aminotransferase 21 U/L (0-41); Albumin Level 2.7 g/dL (3.5-5.2); Alkaline Phosphatase 65 IU/L (40-130); Anion Gap 17.2 (5-19); Aspartate Amino Transferase 19 U/L (0-40); Blood Urea Nitrogen 48 mg/dL (8-23); Calcium 8.4 mg/dL (8.5-10.5); Carbon Dioxide 19 mmol/L (22-29); Chloride 108 mmol/L (98-107); Glucose 116 mg/dL (65-115); Magnesium 1.5 mg/dL (1.7-2.3); Osmolality Calculated 289 mOsm/kg (285-295); Phosphorus 4.3 mg/dL (2.5-4.5); Potassium 4.2 mmol/L (3.5-5.1); Sodium 140 mmol/L (136-145); Total Bilirubin 0.3 mg/dL (0.15-1.2); Total Protein 4.7 g/dL (6.6-8.7)
[2019-10-09 06:09] LABS: Glucose Point of Care 123 mg/dL (70-110)
[2019-10-09 08:00] VITALS: BP 152/73; PULSE 63; RESP 20; TEMP 36.9; O2SAT 97
[2019-10-09 09:04] VITALS: BP 152/73
[2019-10-09] MEDS: cloNIDine 0.1 mg Tablet PO (09:04)
[2019-10-09] MEDS: FUROsemide 40 mg Tablet 20 MG PO (09:05)
[2019-10-09] MEDS: hyDRALAzine 10 mg Tablet PO (09:06)
[2019-10-09] MEDS: aspirin 81 mg EC Tablet PO (09:06)
[2019-10-09] MEDS: pantoprazole DR 40 mg Tablet PO (09:06)
[2019-10-09 09:16] LABS: Coronavirus Lab Test PTC NOT DETECTED
[2019-10-09] MEDS: mupirocin oint 22 gm 1 APPLIC TOPICAL (09:49)
[2019-10-09] MEDS: levETIRAcetam 500 mg Tablet PO (09:50)
--- NOTE | 2019-10-09 10:35 | PC.SOCIAL ---
IMM Update Pg 2 of IMM given and explained to patient, who verbalized understanding. Initialed, dated, and timed and placed in chart. Copy provided to patient.
[2019-10-09 12:00] VITALS: BP 154/76; PULSE 75; RESP 16; TEMP 36.6; O2SAT 100
[2019-10-09 12:01] LABS: Glucose Point of Care 189 mg/dL (70-110)
[2019-10-09] MEDS: HYDROcodone-acetaminophen 5-325 mg Tablet 1 TAB PO (13:10)
[2019-10-09 18:08] VITALS: BP 154/76; PULSE 75; RESP 16; TEMP 36.6; O2SAT 100
== END 2019-10-09 16:30 | disposition skilled nursing facility (03) | DRG 853 ==
LOC: ER 21:47 → ICU 09-25 00:07 → MEDSURG 09-28 10:29
PROVIDERS: Family Medicine; Student in an Organized Health Care Education/Training Program; Surgery; Admitting Provider Internal Medicine; PCP Internal Medicine; Visit Provider Family Medicine
PROC: 0KBP0ZZ Excision of Left Hip Muscle, Open Approach (ICD-10-PCS; principal; 2019-09-29 10:00)
DX: A41.9 Sepsis, unspecified organism (principal); G93.41 Metabolic encephalopathy; I21.A1 Myocardial infarction type 2; I13.0 Hypertensive heart and chronic kidney disease with heart failure and stage 1 through stage 4 chronic kidney disease, or unspecified chronic kidney disease; I50.42 Chronic combined systolic (congestive) and diastolic (congestive) heart failure; E87.1 Hypo-osmolality and hyponatremia; N30.00 Acute cystitis without hematuria; N17.9 Acute kidney failure, unspecified; E87.0 Hyperosmolality and hypernatremia; E87.2 Acidosis; F03.90 Unspecified dementia, unspecified severity, without behavioral disturbance, psychotic disturbance, mood disturbance, and anxiety; N18.3 Chronic kidney disease, stage 3 (moderate); E11.22 Type 2 diabetes mellitus with diabetic chronic kidney disease; Z87.01 Personal history of pneumonia (recurrent); T50.916A Underdosing of multiple unspecified drugs, medicaments and biological substances, initial encounter; Z91.128 Patient's intentional underdosing of medication regimen for other reason; Z66 Do not resuscitate; E11.42 Type 2 diabetes mellitus with diabetic polyneuropathy; Z96.82 Presence of neurostimulator; Z95.1 Presence of aortocoronary bypass graft; Z87.891 Personal history of nicotine dependence; E86.0 Dehydration; Z79.01 Long term (current) use of anticoagulants; L89.156 Pressure-induced deep tissue damage of sacral region
CPT/HCPCS: 12345; 36415; 36416; 36556; 36592; 51702; 70450; 71045; 71250; 74176; 76705; 80048; 80053; 80177; 80306; 80307; 81001; 82436; 82550; 82607; 82728; 82746; 82803; 82962; 83540; 83550; 83605; 83735; 84100; 84295; 84300; 84484; 85014; 85018; 85025; 85045; 87070; 87077; 87086; 87176; 87186; 87205; 87635; 92523; 92526; 92610; 93005; 93306; 96372; 96375; 97110; 97161; 97166; 97530; 97535; 99284; C9113; J0692; J1630; J1644; J1815; J1953; J2020; J2270; J2405; J2543; J3010; J3370; J7030; J7050; J7799

== ENCOUNTER 2019-10-23 12:56 | Outpatient (CLI) | payer MEDICARE, SELFPAY | END 2019-10-23 12:57 | disposition home or self-care (01) | LOC: WOUND 12:58 | PROVIDERS: PCP Internal Medicine; Visit Provider Surgery | DX: I96 Gangrene, not elsewhere classified (principal); L89.153 Pressure ulcer of sacral region, stage 3; L89.629 Pressure ulcer of left heel, unspecified stage; L89.619 Pressure ulcer of right heel, unspecified stage | CPT/HCPCS: 11042; 11043; 11046; 97597; G0463; L4387 ==

== ENCOUNTER → 2019-10-28 12:31 | Outpatient (BNVA) | payer MEDICARE, SELFPAY | PROVIDERS: PCP Family Medicine; Referring Provider Nurse Practitioner Family; Visit Provider Specialist | DX: G40.309 Generalized idiopathic epilepsy and epileptic syndromes, not intractable, without status epilepticus (principal); R25.1 Tremor, unspecified; R53.81 Other malaise; G72.9 Myopathy, unspecified; G62.81 Critical illness polyneuropathy; R20.0 Anesthesia of skin; R20.2 Paresthesia of skin; R26.2 Difficulty in walking, not elsewhere classified | CPT/HCPCS: 99205 ==

== ENCOUNTER 2019-10-30 08:16 | Outpatient (CLI) | payer MEDICARE, SELFPAY | END 2019-10-30 08:17 | disposition home or self-care (01) | LOC: WOUND 08:19 | PROVIDERS: PCP Family Medicine; Visit Provider Emergency Medicine | DX: I96 Gangrene, not elsewhere classified (principal); L89.153 Pressure ulcer of sacral region, stage 3; L89.622 Pressure ulcer of left heel, stage 2; L89.610 Pressure ulcer of right heel, unstageable | CPT/HCPCS: 11042; 87070; 87077; 87176; 87186; 87205 ==

== ENCOUNTER 2019-11-06 08:54 | Outpatient (CLI) | payer MEDICARE, SELFPAY | END 2019-11-06 08:55 | disposition home or self-care (01) | LOC: WOUND 08:56 | PROVIDERS: PCP Family Medicine; Visit Provider Nurse Practitioner Family | DX: I96 Gangrene, not elsewhere classified (principal); L89.153 Pressure ulcer of sacral region, stage 3; L89.622 Pressure ulcer of left heel, stage 2; L89.619 Pressure ulcer of right heel, unspecified stage | CPT/HCPCS: 11042; 11045 ==

== ENCOUNTER 2019-11-07 09:15 | Outpatient (CLI) | payer MEDICARE, SELFPAY ==
[2019-11-07 09:32] LABS: Basophils # 0.1 10^3/uL (0.0-0.1); Basophils % 0.7 %; Eosinophils # 0.8 10^3/uL (0.0-0.8); Eosinophils % 5.5 %; Hematocrit 25.6 % (42.0-52.0); Mean Corpuscular HGB Conc 31.3 g/dL (30.0-36.0); Mean Corpuscular Hemoglobin 28.4 pg (28.0-34.0); Mean Corpuscular Volume 90.8 fL (80-94); Mean Platelet Volume 9.8 fL (7.4-10.4); Monocytes # 0.9 10^3/uL (0.2-0.9); Monocytes % 6.1 %; Neutrophils # 11.63 10^3/uL (1.8-7.7); Neutrophils % 80.4 %; Nucleated Red Blood Cells % 0 %; Platelet Count 372 10^3/cmm (130-400); Red Blood Count 2.82 10^6/uL (4.1-5.3); Red Cell Distribution Width 14.4 % (12.1-15.1); White Blood Count 14.5 10^3/uL (4.0-10.0)
== END 2019-11-07 09:16 | disposition home or self-care (01) ==
PROVIDERS: Family Medicine; PCP Family Medicine; Visit Provider Family Medicine
DX: D64.9 Anemia, unspecified (principal)
CPT/HCPCS: 85025

== ENCOUNTER 2019-11-07 13:16 | Outpatient (CLI) | payer MEDICARE, SELFPAY ==
--- NOTE | 2019-11-07 13:23 | USCV_ITS ---
Moy Fernandez Age: 69 Gender: M : 1950 Exam Date: 11/07/2019 13:43 Ordering Phys: Hugo Davenport MD Technologist: Devonte Cuenca [place] [facility] [place] Indication: HISTORY: Erythema. Patient has. Ulcers. PROCEDURES: Bilateral duplex Venous Insufficiency study of the Deep and Superficial systems was carried out according to normal protocol with the patient in supine positon for deep system and dependent position for the superficial system. FINDINGS: All deep veins demonstrated compressibility without evidence of intraluminal thrombus or increased echogenicity. Spectral analysis of Doppler signals demonstrates normal response to compression maneuvers indicating patency without obstruction. Reflux determinations were made with the patient in the dependent position, the weight being on the contralateral leg. Vein measurements and reflux times are listed below were applicable. No notable reflux was seen at this time. Echolucent areas in the cutaneous tissue bilaterally in the lower leg CONCLUSIONS No evidence of DVT in the above-mentioned identifiable veins. No significant venous reflux Venous dimensions and depth from the surface are as mentioned above The venous dimensions were within normal limits bilaterally Features of fluid retention/edema in the lower legs bilaterally Dr Angeles Khan MD [facility] (Electronically Signed) Final Date: 09 November 2019 20:35 S
== END 2019-11-07 13:17 | disposition home or self-care (01) ==
LOC: RAD 13:19
PROVIDERS: PCP Family Medicine; Visit Provider Surgery
DX: M79.604 Pain in right leg (principal); M79.605 Pain in left leg; L53.9 Erythematous condition, unspecified; L97.929 Non-pressure chronic ulcer of unspecified part of left lower leg with unspecified severity; L97.919 Non-pressure chronic ulcer of unspecified part of right lower leg with unspecified severity
CPT/HCPCS: 93970

== ENCOUNTER 2019-11-11 15:13 | Outpatient (CLI) | payer MEDICARE, SELFPAY ==
--- NOTE | 2019-11-11 15:20 | USCV_ITS ---
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 Abnormal PVR wave forms and resting KATELYN on the right side, suggestive of moderately severe peripheral artery disease, possibly multisegmental 2. Supernormal resting KATELYN and normal TBI on the left side, suggestive of no significant obstructive arterial disease. However the PVR waveforms are suggestive of severe arterial disease. Because of the technical problems with the study, the reliability is questionable. Consider CTA, or other modalities, to better evaluate the arteries, if clinically indicated Dr Angeles Khan MD [facility] (Electronically Signed) Final Date: 13 November 2019 09:00 S
== END 2019-11-11 15:14 | disposition home or self-care (01) ==
PROVIDERS: PCP Family Medicine; Visit Provider Surgery
DX: M79.604 Pain in right leg (principal); M79.605 Pain in left leg; L53.9 Erythematous condition, unspecified; L97.929 Non-pressure chronic ulcer of unspecified part of left lower leg with unspecified severity; L97.919 Non-pressure chronic ulcer of unspecified part of right lower leg with unspecified severity
CPT/HCPCS: 93923

== ENCOUNTER 2019-11-14 09:42 | Outpatient (CLI) | payer MEDICARE, SELFPAY | END 2019-11-14 09:43 | disposition home or self-care (01) | LOC: WOUND 09:44 | PROVIDERS: PCP Family Medicine; Visit Provider Surgery | DX: L89.153 Pressure ulcer of sacral region, stage 3 (principal); L89.622 Pressure ulcer of left heel, stage 2; L89.610 Pressure ulcer of right heel, unstageable | CPT/HCPCS: 87070; 87077; 87176; 87186; 87205 ==

== ENCOUNTER 2019-11-18 13:41 | Outpatient (CLI) | payer MEDICARE, SELFPAY ==
--- NOTE | 2019-11-18 13:47 | XRR_ITS ---
PROCEDURE INFORMATION: Exam: XR Right Ankle Exam date and time: 11/18/2019 2:29 PM Age: 69 years old Clinical indication: Right; Patient HX: C/O ankle pain; Diabetic wound; Additional info: Diabetic wound right foot/r foot pain TECHNIQUE: Imaging protocol: XR Right ankle. Views: 3 or more views. COMPARISON: No relevant prior studies available. FINDINGS: Bones/joints: Negative for acute bony abnormality Soft tissues: Soft tissue edema lateral aspect of the ankle XR/XR ankle RT min 3V* [id number] IMPRESSION: No acute bone abnormality Soft tissue edema lateral ankle
--- NOTE | 2019-11-18 13:47 | XRR_ITS ---
PROCEDURE INFORMATION: Exam: XR Left Ankle Exam date and time: 11/18/2019 2:29 PM Age: 69 years old Clinical indication: Patient HX: C/O posterior left ankle pain/wounds; Additional info: Diabetic wound L foot/left foot pain TECHNIQUE: Imaging protocol: XR Left ankle. Views: 3 or more views. COMPARISON: No relevant prior studies available. FINDINGS: Bones/joints: Negative for acute bony abnormality Soft tissues: Normal. XR/XR ankle LT min 3V* [id number] IMPRESSION: No acute findings.
== END 2019-11-18 13:42 | disposition home or self-care (01) ==
LOC: RAD 13:44
PROVIDERS: PCP Family Medicine; Visit Provider Internal Medicine Nephrology
DX: E13.621 Other specified diabetes mellitus with foot ulcer (principal); M79.671 Pain in right foot; M79.672 Pain in left foot; R60.0 Localized edema
CPT/HCPCS: 73610

== ENCOUNTER 2019-11-19 14:54 | Outpatient (CLI) | payer MEDICARE, SELFPAY | END 2019-11-19 14:55 | disposition home or self-care (01) | LOC: WOUND 14:56 | PROVIDERS: PCP Family Medicine; Visit Provider Nurse Practitioner Family | DX: L89.153 Pressure ulcer of sacral region, stage 3 (principal); L89.622 Pressure ulcer of left heel, stage 2; L89.610 Pressure ulcer of right heel, unstageable | CPT/HCPCS: 11042 ==

== ENCOUNTER 2019-11-26 09:44 | Outpatient (CLI) | payer MEDICARE, SELFPAY | END 2019-11-26 09:45 | disposition home or self-care (01) | LOC: WOUND 09:46 | PROVIDERS: PCP Family Medicine; Visit Provider Thoracic Surgery (Cardiothoracic Vascular Surgery) | DX: L89.153 Pressure ulcer of sacral region, stage 3 (principal); L89.610 Pressure ulcer of right heel, unstageable | CPT/HCPCS: 11042; 11045; 97597 ==

== ENCOUNTER 2019-12-03 08:39 | Outpatient (CLI) | payer OTHER, SELFPAY | END 2019-12-03 08:40 | disposition home or self-care (01) | LOC: WOUND 08:43 | PROVIDERS: PCP Family Medicine; Visit Provider Nurse Practitioner Family | DX: L89.153 Pressure ulcer of sacral region, stage 3 (principal); L89.610 Pressure ulcer of right heel, unstageable | CPT/HCPCS: 11042; 99214 ==

== ENCOUNTER → 2019-12-04 11:18 | Outpatient (BNVA) | payer OTHER, MEDICARE, SELFPAY | PROVIDERS: PCP Family Medicine; Visit Provider Internal Medicine Cardiovascular Disease | DX: I50.9 Heart failure, unspecified (principal); R06.02 Shortness of breath | CPT/HCPCS: 80048; 83880 ==

== ENCOUNTER 2019-12-05 13:54 | Outpatient (CLI) | payer OTHER, MEDICARE, SELFPAY ==
[2019-12-05 14:44] LABS: Blood Urea Nitrogen 35 mg/dL (8-23)
== END 2019-12-05 13:55 | disposition home or self-care (01) ==
LOC: RAD 14:00
PROVIDERS: PCP Family Medicine; Visit Provider Emergency Medicine
DX: E11.9 Type 2 diabetes mellitus without complications (principal)
CPT/HCPCS: 36415; 82565; 84520

== ENCOUNTER 2019-12-11 08:41 | Outpatient (CLI) | payer MEDICARE, SELFPAY | END 2019-12-11 08:42 | disposition home or self-care (01) | LOC: WOUND 08:43 | PROVIDERS: PCP Family Medicine; Visit Provider Emergency Medicine | DX: L89.153 Pressure ulcer of sacral region, stage 3 (principal); L89.610 Pressure ulcer of right heel, unstageable; L89.892 Pressure ulcer of other site, stage 2 | CPT/HCPCS: 11042; 11045 ==

== ENCOUNTER 2019-12-17 13:05 | Outpatient (CLI) | payer MEDICARE, SELFPAY ==
[2019-12-17 14:18] LABS: Blood Urea Nitrogen 34 mg/dL (8-23)
== END 2019-12-17 13:06 | disposition home or self-care (01) ==
PROVIDERS: PCP Family Medicine; Visit Provider Thoracic Surgery (Cardiothoracic Vascular Surgery)
DX: E11.9 Type 2 diabetes mellitus without complications (principal)
CPT/HCPCS: 36415; 82565; 84520

== ENCOUNTER 2019-12-17 14:48 | Outpatient (CLI) | payer MEDICARE, SELFPAY | END 2019-12-17 14:49 | disposition home or self-care (01) | LOC: WOUND 14:49 | PROVIDERS: PCP Family Medicine; Visit Provider Emergency Medicine | DX: L89.153 Pressure ulcer of sacral region, stage 3 (principal); L89.614 Pressure ulcer of right heel, stage 4; L89.892 Pressure ulcer of other site, stage 2 | CPT/HCPCS: 11042; 11043; 11046 ==

== ENCOUNTER 2019-12-24 14:36 | Outpatient (CLI) | payer OTHER, MEDICARE, SELFPAY | END 2019-12-24 14:37 | disposition home or self-care (01) | LOC: WOUND 14:37 | PROVIDERS: PCP Family Medicine; Visit Provider Emergency Medicine | DX: L89.153 Pressure ulcer of sacral region, stage 3 (principal); L89.614 Pressure ulcer of right heel, stage 4; L89.892 Pressure ulcer of other site, stage 2 | CPT/HCPCS: 11042 ==

== ENCOUNTER 2019-12-26 08:57 | Outpatient (CLI) | payer MEDICARE, SELFPAY ==
[2019-12-26] VITALS (9 sets, daily range): BP systolic 135–156; BP diastolic 59–72; PULSE 53–62; RESP 16–18; TEMP 36.1–36.8; O2SAT 97–100
[2019-12-26 12:37] LABS: Hematocrit 26.3 % (42.0-52.0); Hemoglobin 7.8 g/dL (11.7-16.6)
== END 2019-12-26 08:58 | disposition home or self-care (01) ==
PROVIDERS: PCP Family Medicine; Visit Provider Nurse Practitioner Family
DX: D64.9 Anemia, unspecified (principal); Z66 Do not resuscitate
CPT/HCPCS: 36430; 85014; 85018; 86850; 86900; 86920; P9016

== ENCOUNTER → 2019-12-30 16:12 | Outpatient (BNVA) | payer MEDICARE, SELFPAY | PROVIDERS: PCP Family Medicine; Referring Provider Emergency Medicine; Visit Provider Podiatrist Foot & Ankle Surgery | DX: L97.414 Non-pressure chronic ulcer of right heel and midfoot with necrosis of bone (principal); I73.9 Peripheral vascular disease, unspecified; S91.301D Unspecified open wound, right foot, subsequent encounter; X58.XXXD Exposure to other specified factors, subsequent encounter | CPT/HCPCS: 73650 ==

== ENCOUNTER 2020-01-07 10:09 | Outpatient (CLI) | payer MEDICARE, SELFPAY | END 2020-01-07 10:10 | disposition home or self-care (01) | LOC: WOUND 10:10 | PROVIDERS: PCP Family Medicine; Visit Provider Nurse Practitioner Family | DX: L89.624 Pressure ulcer of left heel, stage 4 (principal); L89.892 Pressure ulcer of other site, stage 2 | CPT/HCPCS: 99214 ==

== ENCOUNTER 2020-01-16 10:27 | Outpatient (CLI) | payer MEDICARE, SELFPAY | END 2020-01-16 10:28 | disposition home or self-care (01) | LOC: WOUND 10:28 | PROVIDERS: PCP Family Medicine; Visit Provider Surgery | DX: E11.621 Type 2 diabetes mellitus with foot ulcer (principal); L97.413 Non-pressure chronic ulcer of right heel and midfoot with necrosis of muscle; L89.892 Pressure ulcer of other site, stage 2 | CPT/HCPCS: 11043; 11046; 87070; 87077; 87176; 87186; 87205 ==

== ENCOUNTER 2020-01-23 10:38 | Outpatient (CLI) | payer MEDICARE, SELFPAY | END 2020-01-23 10:39 | disposition home or self-care (01) | LOC: WOUND 10:39 | PROVIDERS: PCP Family Medicine; Visit Provider Surgery | DX: L89.610 Pressure ulcer of right heel, unstageable (principal); L89.892 Pressure ulcer of other site, stage 2 | CPT/HCPCS: 11043; 11046 ==

== ENCOUNTER 2020-02-03 15:07 | Observation (INO) | payer MEDICARE, SELFPAY ==
[2020-01-26 09:22] VITALS: BMI 30.2
--- NOTE | 2020-01-26 09:52 | P.ANESASSM_ITS ---
Pre-Anesthetic Assessment Pre-Anesthetic Assessment: Height/Weight: Height 1.68 m Weight 84.822 kg Preop Diagnosis: sacral decubitus ulcer Proposed Procedure: Operation Date: 02/02/20 07:45 Proposed Procedures p BKA (Below Knee Amputation) 10118 E11.621 L89.614 I70.201 L97.512(Right) - Hugo Davenport MD Familial anesthetic complications: None Was Beta Nina taken within 24 hours: N/A Social: Social History: No alcohol and No tobacco Comment: former smoker Exam: Pre-Anes Outpt Exam: alert, oriented x 3, clear to auscultation bilaterally and regular rate & rhythm Airway: Cervical ROM: WNL MP: 4 Dentition: False Pulmonary: Pulmonary: COPD CV/HEM: CV/HEM: Angina (Stable) (? Patient poor historian), CAD, CHF, HTN and TN (patient unable to provide details - patient poor historian) Comments: echo - 09/28/19 - EF 45%, grade I disatolic dysfunction, trace mR and TVR, hypokinesis : : Chronic renal Insufficiency Comments: w/ DOROTEO Musc/skel: Comments: ? myopathy, patient unable to state why he is unable to stand up, he is in a wheelchair, denies spinal cord injury Neuropsych: Neuropsych: Seizure (epilepsy) Anesthetic Plan: ASA status: 4 Anesthesia: General and Regional (specify below) Other: possible spinal Risk of > 500 ml blood loss (7ml/kg in c bertranden): No PFSH Anesthesia PFSH: Medical History (Updated 12/30/19 @ 20:14 by Leandro Myers DPM) Atherosclerotic heart disease of [place] coronary artery without angina pectoris CHF (congestive heart failure) Chronic ulcer of ankle CKD (chronic kidney disease), stage III -known hx of CKD stage 3; baseline Cr is around 3-3.5 Combined systolic and diastolic congestive heart failure -has known hx of chronic combined systolic and diastolic CHF; no acute exacerbation currently -Echo (05/2018): EF=35% -stress testing in 05/2018 showing scarring with mild urmila-infarct ischemia in RCA territory Diabetes mellitus DNR (do not resuscitate) Elevated troponin level Hypertension Multilevel degenerative disc disease -has known hx of multilevel DJD, s/p spinal stimulator -hold opiates, sedating meds due to altered mental status -fall precautions -imaging reviewed, no acute findings Peripheral neuropathy Polyneuropathy in other diseases classified elsewhere Post-ictal state Rhabdomyolysis Seizure disorder Spinal cord stimulator status Spinal stenosis Type 2 diabetes mellitus Surgical History S/P CABG x 3 S/P insertion of spinal cord stimulator Family History Other Hyperlipidemia Hypertension Denies family history of Psychiatric illness Lung disease Social History Smoking and tobacco status: former smoker Alcohol intake: former Lives independently: Yes Current occupation: Living alone, he was discharged to home with home hospice Data Anesthesia Cardiac Studies: No Data to Display
[2020-02-03 11:03] LABS: Glucose Point of Care 131 mg/dL (70-110)
[2020-02-03 16:00] VITALS: BP 105/66; PULSE 84; RESP 16; O2SAT 96
[2020-02-03] MEDS: sodium chloride 0.9% 1,000 ML 50 ML IV (16:27)
[2020-02-03] MEDS: famotidine 20 mg/2 mL INJ IVP (16:27)
[2020-02-03 16:49] VITALS: PULSE 77; O2SAT 97
--- NOTE | 2020-02-03 17:20 | P.CONIM_ITS ---
Providers/Reason For Consult Consulting Physican/Specialty*: Hospitalist Reason for Consult*: Diabetes management Attending Physician: Hugo Davenport MD Primary Care Provider: Sajan Jack Jr, MD History of Present Illness History of Present Illness Moy Fernandez is a 69 year old gentleman, currently skilled nursing resident, is hospitalized postoperatively after right BKA performed due to persistent complicated diabetic wound with infection of right lower extremity. He has a nu mber of chronic comorbidities, and hospitalist service has been asked to follow along with surgery postoperatively. He has a history of combined systolic and diastolic congestive heart failure, EF in 1999 1935%, but improved to 45% with grade 1 diastolic dysfunction on most recent echo in September 2019. Other history is significant for chronic kidney disease stage III, HTN, seizure disorder, CAD status post CABG, DJD and chronic pain, history of spinal cord stimulator implantation. He is currently resting after surgery, recovering from anesthesia. He is quite sleepy and unable to provide any history, however, is cooperative with examination. He denies any significant pain. Per discussion with surgery amputation was uneventful. With noted 250 mL estimated blood loss. With blood pressure trend review appears lowest with systolic around 89, otherwise his vital signs have been stable. He is currently doing well on room air even. Of note prior to admission on preoperative screening tested positive for COVID-19 by PCR 2 days previously. Per discussion with surgery he has had no symptoms of viral infection, has been afebrile, has had no shortness of breath, muscle aches, chills, headache, nausea, vomiting or diarrhea. His NH RN confirms same as well. And so does his brother. He has been noted to be somewhat weaker, less functionally capable over probably the last week or so, requiring some assistance with feeding, taking medications. Reportedly does remain oriented, alert, but somewhat more withdrawn. Concern has been that he is living here alone, with his only family, his brother, living in [place]. Brother stating that after he recovers, long-term he is considering whether to try to get him over to [place] as well. He is concerned that his brother has had decline in self-care over the past year or so, with poor diet, etc. Review of Systems General: Reports: Other (Patient is somnolent after surgery, denies pain or discomfort currently, but most review of systems obtained from surgery service, and patient's nurse at the skilled nursing, as well as his brother.) Const: Denies: fever(s), chills, body aches or malaise Eyes: Denies: change in vision ENMT: Denies: throat pain Card: Denies: chest pain, edema, pre-syncope or dyspnea on exertion (Not normally on oxygen.) Resp: Denies: dyspnea, productive cough, change in phlegm color or hemoptysis GI: Denies: abdominal pain, nausea, vomiting, diarrhea, constipation, hematochezia or melena : Denies: flank pain, difficulty urinating, urinary frequency or hematuria Musc: Denies: joint swelling Skin/Breast: Reports: sores (Chronic pressure ulcers) and other (Chronic nonhealing wound with infection of right lower extremity); Denies: rash Neuro: Reports: other (Generally weaker over the last week or so.); Denies: headache(s), numbness in extremities, weakness in extremities, dizziness, confusion or seizure-like activity Psych: Reports: other (Has been more withdrawn recently.) Endo: Denies: polyuria or polydipsia Stanley/Lymph: Denies: easy bleeding or purpura All/Imm: Denies: urticaria, throat swelling or tongue swelling Meds/Allergies Home Medications and Allergies Home Medications Medication Instructions Recorded Confirmed Last Taken Type acetaminophen 650 mg PO Q6H PRN #0 tab 06/16/19 02/03/20 01/20/20 Rx hydrocodone-acetaminophen 1 tab PO Q4H PRN 06/21/19 02/03/20 02/02/20 00:00 History insulin aspart U-100 [Novolog See Rx Instructions .ROUTE 10/07/19 02/03/20 02/02/20 Rx U-100 Insulin aspart] .COMPLEX #10 ml hydralazine 10 mg tablet 10 mg PO TID #270 tab 11/03/19 02/03/20 02/02/20 20:00 Rx aspirin 81 mg tablet,delayed 81 mg PO DAILY 12/04/19 02/03/20 01/31/20 History release atorvastatin 40 mg tablet 40 mg PO DAILY 12/04/19 02/03/20 02/02/20 20:00 Hist orgabriel cholecalciferol (vitamin D3) 125 1,250 mcg PO DAILY 12/04/19 02/03/20 02/02/20 08:00 History mcg (5,000 unit) capsule clonidine HCl 0.1 mg tablet 0.1 mg PO BID 12/04/19 02/03/20 02/02/20 20:00 History ferrous sulfate 325 mg (65 mg 325 mg PO BID 12/04/19 02/03/20 02/02/20 20:00 History iron) tablet insulin detemir U-100 100 unit/mL 100 unit SUBCUT DAILY 12/04/19 02/03/20 20:00 History (3 mL) subcutaneous pen levetiracetam 500 mg tablet 500 mg PO BID 12/04/19 02/03/20 02/02/20 20:00 History miconazole nitrate 2 % topical 1 applic TOPICAL BID 12/04/19 02/03/20 02/02/20 20:00 History cream pantoprazole 40 mg tablet,delayed 40 mg PO DAILY 12/04/19 02/03/20 02/02/20 06:00 History release amoxicillin-pot clavulanate 1 tab PO BID 01/26/20 02/03/20 02/02/20 20:00 History [Augmentin] atorvastatin 20 mg PO BEDTIME 01/26/20 02/03/20 02/02/20 20:00 History ciprofloxacin HCl 500 mg PO BID 01/26/20 02/03/20 02/02/20 20:00 History sodium hypochlorite [Dakin's 1 applic TOPICAL BID 01/26/20 02/03/20 02/02/20 History Solution] Allergies Allergy/AdvReac Type Severity Reaction Status Date / Time No Known Allergies Allergy Verified 12/30/19 15:37 Current Medications Current Medications Generic Name Dose Route Start Last Admin Trade Name Freq PRN Reason Stop Dose Admin Famotidine 20 mg 02/03/20 16:00 02/03/20 16:27 Pepcid Inj IVP 20 mg Q12H YANELI Administration Sodium Chloride 1,000 mls @ 50 mls/hr 02/03/20 16:00 02/03/20 16:27 Sodium Chloride 0.9% IV 50 mls/hr .Q20H YANELI Administration PFSH Acute PFSH: Medical History Atherosclerotic heart disease of [place] coronary artery without angina pectoris CHF (congestive heart failure) Chronic ulcer of ankle CKD (chronic kidney disease), stage III -known hx of CKD stage 3; baseline Cr is around 3-3.5 Combined systolic and diastolic congestive heart failure -has known hx of chronic combined systolic and diastolic CHF; no acute exacerbation currently -Echo (05/2018): EF=35% -stress testing in 05/2018 showing scarring with mild urmila-infarct ischemia in RCA territory Diabetes mellitus DNR (do not resuscitate) Elevated troponin level Hypertension Multilevel degenerative disc disease -has known hx of multilevel DJD, s/p spinal stimulator -hold opiates, sedating meds due to altered mental status -fall precautions -imaging reviewed, no acute findings Peripheral neuropathy Polyneuropathy in other diseases classified elsewhere Post-ictal state Rhabdomyolysis Seizure disorder Spinal cord stimulator status Spinal stenosis Type 2 diabetes mellitus Surgical History S/P CABG x 3 S/P insertion of spinal cord stimulator Family History Other Hyperlipidemia Hypertension Denies family history of Psychiatric illness Lung disease Social History Smoking and tobacco status: former smoker Alcohol intake: former Substance/Drug Use: never Lives independently: No (Brother is his power of sports attorney, recently has had to be involved in more decisions) Housing: Jail Current occupation: Living alone, he was discharged to home with home hospice Vitals/I&O/Wt Last Vital Signs Pulse 77 02/03/20 16:49 Pulse Ox 97 02/03/20 16:49 Physical Exam Const: COMMON NORMALS: no acute distress GENERAL APPEARANCE: cooperative OTHER: Somnolent HENMT: COMMON NORMALS: oropharynx normal Neck/C-Spine: COMMON NORMALS: no JVD Resp: COMMON NORMALS: normal respiratory effort and clear to auscultation bilaterally AUSCULTATION: clear to auscultation bilaterally Cardio: COMMON NORMALS: no JVD, regular rhythm, S1 normal heart sound present, S2 normal heart sound present and No murmurs present (Cardio) RHYTHM: regular rhythm HEART SOUNDS: S1 normal heart sound present and S2 normal heart sound present GI: COMMON NORMALS: Normal to inspection, nondistended, normoactive bowel sounds present, Soft to palpation and non-tender PALPATION: Yes Soft to palpation Extremity: OTHER: Right BKA, wrapped in compression dressing, immobilizer. Neuro: COMMON NORMALS: moves all extremities Skin: COMMON NORMALS: no rashes or lesions noted GENERAL SKIN EXAM: no rashes or lesions noted OTHER: Chronic pressure ulcer on left heel. Sacrum not examined. A&P Assessment and plan (1) Status post below-knee amputation: Status post right BKA due to progressive worsening of wound on the right lower extremity, complicated by infection in the setting of diabetes. Prior to this treated with Augmentin and ciprofloxacin for wound infection. No complication noted during surgery. Was blood pressure 89 systolic, otherwise remaining above 100 systolic. EBL 250 mL. Postoperatively he is doing well, somnolent, but denies any complaints. Preoperative screening positive for COVID-19 on 01/31. Currently not requiring any oxygen. Appears he has not had any symptoms, discussed with his brother, unclear whether this was asymptomatic infection, but cannot also exclude that this is a more recent infection and he has not yet developed symptoms, otherwise his functional decline recently with some generalized weakness, may also be a symptom of his infection. Regardless, currently he is in isolation. We will monitor his oxygenation and for development of any other symptoms. If blood pressure remains stable/good, would discontinue IV fluids, keep with more conservative fluid management strategy. SCD for DVT prophylaxis. Consider additional pharmacal prophylaxis when safe. Pain control. PT and OT once he is more awake. Status: Acute (2) Acute kidney injury superimposed on chronic kidney disease: Discussed with his brother creatinine appears currently worse than previously at 4.8. BUN 95. His brother states that his renal function unfortunately has been worsening over a while, and he used to follow with a hay baler. RN at the skilled nursing is not aware that he is currently seeing a hay baler. Looking back through laboratory studies, creatinine was 4.15 on 01/22. Currently is perhaps slightly worse, although not by much. I do not see that he is on any NSAIDs at the skilled nursing. Preoperatively does not appear to have been hypotensive. On exam does not appear to be in acute CHF. Antibiotics used recently were Augmentin and Cipro. Will assess kidney ultrasound. Urine studies. Discussed with brother he would benefit from resuming follow-up with nephrology. Avoid nephrotoxins. Monitor blood pressure, avoid hypotension. Currently on gentle fluid challenge. This may be prerenal secondary to poor oral intake recently. Status: Acute (3) Combined systolic and diastolic congestive heart failure: Currently appears compensated. Denies any shortness of breath. Not needing oxygen, Jayne significant JVD or peripheral edema. Monitor volume status. Status: Chronic Qualifiers: Heart failure chronicity: chronic Qualified Code(s): I50.42 - Chronic combined systolic (congestive) and diastolic (congestive) heart failure (4) Type 2 diabetes mellitus: SSI. I do not see that he takes detemir at the skilled nursing. Consistent carbohydrate diet. Status: Chronic (5) CAD (coronary artery disease): Resume aspirin when safe. Continue statin. He is not on beta-jacky. Appears was having bradycardia back in December. Monitor heart rates. Status: Chronic (6) Hypertension: Monitor blood pressures, hold antihypertensives for now as blood pressure is soft. Resume clonidine first to avoid rebound hypertension. Status: Chronic Qualifiers: Hypertension type: essential hypertension Qualified Code(s): I10 - Essential (primary) hypertension (7) Seizure disorder: Continue Keppra Status: Chronic (8) COVID-19: COVID-19 positive PCR at skilled nursing. Appears to be not symptomatic. Apart from perhaps contribution to his functional decline recently, generalized weakness. Monitor oxygenation. Monitor for development of any symptoms. Maintain isolation. Status: Acute Additional A&P Information Transaminitis: Minimal. Incidentally noted on CMP. Recheck. GERD: Currently on famotidine. Resume PPI on discharge. Chronic anemia: Currently appears at baseline. Chronic pressure ulcers: Including left heel, sacrum. Reposition frequently. Continue wound care, follow-up with wound care clinic. Encourage oral nutrition as recently he has not been eating well. Consider adding protein shakes. Other chronic comorbidities. History of chronic pain, history of spinal stimulator implantation. D/W surgery again. Request hold off on heparin or other pharmacologic DVT prophylaxis due to concern for bleeding, okay to cautiously resume aspirin. Consult Attestations Medical Necessity Statement: Requiring admission for postoperative management after right BKA, acute kidney injury in the setting of multiple comorbidities including congestive heart failure, chronic kidney disease, diabetes. Positive coronavirus test. Coding Level of Care Code Acute Bank Secrecy Act Officer for Chg Fwd Diagnoses Status post below-knee amputation Z89.519 Acute kidney injury superimposed on chronic kidney disease N17.9; N18.9 Combined systolic and diastolic congestive heart failure I50.42 Heart failure chronicity: chronic Type 2 diabetes mellitus E11.9 CAD (coronary artery disease) I25.10 Hypertension I10 Hypertension type: essential hypertension Seizure disorder G40.909 COVID-19 U07.1
[2020-02-03 18:39] LABS: Glucose Point of Care 199 mg/dL (70-110)
--- NOTE | 2020-02-03 18:49 | PC.NURSE ---
SHIFT SUMMARY PATIENT HAS BEEN RESTING SINCE ARRIVING TO THE FLOOR. PATIENT SHAKES HIS HEAD YES OR NO TO THIS NURSE'S QUESTIONS. PATIENT HAS NOT BEEN VERBAL YET. SURGICAL DRESSING C/D/I. TURNING PATIENT Q2H. VITALS STABLE. ON ROOM AIR. PATIENT ON TELEMETRY. HEART RATE JASPREET'S DOWN TO THE UPPER 40'S AT TIMES. PATIENT VERY PALE. PATIENT IS A LUX LIFT. PATIENT BELONGINGS AT BEDSIDE. CONTINUE TO MONITOR.
[2020-02-03 19:27] VITALS: BP 98/60; PULSE 68; RESP 20; TEMP 36.8; O2SAT 95
[2020-02-03 21:00] VITALS: BP 107/65; PULSE 65; RESP 17; TEMP 36.2; O2SAT 96
[2020-02-03 21:21] LABS: Glucose Point of Care 192 mg/dL (70-110)
[2020-02-03] MEDS: aspirin 81 mg EC Tablet PO (21:41)
[2020-02-03] MEDS: levETIRAcetam 500 mg Tablet PO (21:41)
[2020-02-03] MEDS: ceFAZolin 1,000 MG in sodium chloride 0.9% (plus) 50 ML 100 MG IV (21:41)
[2020-02-04] VITALS (15 sets, daily range): BP systolic 122–173; BP diastolic 63–76; PULSE 66–80; RESP 14–20; TEMP 36.5–37.2; O2SAT 94–98
[2020-02-04] MEDS: ceFAZolin 1,000 MG in sodium chloride 0.9% (plus) 50 ML 100 MG IV (04:06)
[2020-02-04] MEDS: famotidine 20 mg/2 mL INJ IVP (04:08)
[2020-02-04 05:48] LABS: Basophils % 0.1 %; Hematocrit 23.9 % (42.0-52.0); Hemoglobin 6.9 g/dL (11.7-16.6); Lymphocytes # 0.4 10^3/uL (0.8-4.8); Lymphocytes % 3.2 %; Mean Corpuscular HGB Conc 28.9 g/dL (30.0-36.0); Mean Corpuscular Hemoglobin 27.8 pg (28.0-34.0); Mean Corpuscular Volume 96.4 fL (80-94); Mean Platelet Volume 9.4 fL (7.4-10.4); Monocytes # 0.4 10^3/uL (0.2-0.9); Monocytes % 3.1 %; Neutrophils # 11.03 10^3/uL (1.8-7.7); Nucleated Red Blood Cells % 0 %; Platelet Count 297 10^3/cmm (130-400); Red Blood Count 2.48 10^6/uL (4.1-5.3); Red Cell Distribution Width 15.4 % (12.1-15.1); White Blood Count 11.9 10^3/uL (4.0-10.0)
[2020-02-04 06:10] LABS: Alanine Aminotransferase 38 U/L (0-41); Albumin Level 2.5 g/dL (3.5-5.2); Alkaline Phosphatase 62 IU/L (40-130); Anion Gap 19.3 (5-19); Aspartate Amino Transferase 42 U/L (0-40); Calcium 9.1 mg/dL (8.5-10.5); Carbon Dioxide 17 mmol/L (22-29); Chloride 115 mmol/L (98-107); Globulin 3.9 g/dL (1.3-4.6); Glucose 133 mg/dL (65-115); Osmolality Calculated 334 mOsm/kg (285-295); Potassium 5.3 mmol/L (3.5-5.1); Sodium 146 mmol/L (136-145); Total Bilirubin 0.2 mg/dL (0.15-1.2); Total Protein 6.4 g/dL (6.6-8.7)
[2020-02-04 06:13] LABS: Blood Urea Nitrogen 98 mg/dL (8-23)
[2020-02-04 06:41] LABS: Glucose Point of Care 132 mg/dL (70-110)
--- NOTE | 2020-02-04 07:08 | PC.NURSE ---
PATIENT UNABLE TO EMPTY BLADDER ON OWN. VERBAL ORDER FROM DR. BUSTILLOS AT BEDSIDE TO STRAIGHT CATH ONCE TO EMPTY BLADDER. STRAIGHT CATH PLACED USING STERILE TECHNIQUE. PATIENT TOLERATED WELL. 200 ML FROM CATH PLACEMENT.
[2020-02-04] MEDS: aspirin 81 mg EC Tablet PO (07:41)
[2020-02-04] MEDS: atorvastatin 40 mg Tablet PO (07:41)
[2020-02-04] MEDS: levETIRAcetam 500 mg Tablet PO ×2 (07:41→17:48)
[2020-02-04 11:01] LABS: Glucose Point of Care 127 mg/dL (70-110)
[2020-02-04] MEDS: pantoprazole DR 40 mg Tablet PO (12:45)
[2020-02-04 13:01] LABS: Add Urine Microscopic? YES; Bilirubin Urine Neg (Negative); Blood Urine 3+ (Negative); Glucose Urine UA Norm (Normal); Ketones Urine Negative (Negative); Leukocyte Esterase Urine 1+ (Negative); Nitrate Urine Negative (Negative); Protein Urine Trace (Negative); Specific Gravity, Urine 1.015 (1.005-1.030); Urine Appearance SL Hazy (CLEAR); Urine Color Yellow (Yellow); Urobilinogen Urine Norm (Negative); pH Urine 5 (5-7)
[2020-02-04 13:05] LABS: Bacteria Urine 2+ /hpf; Squamous Epithelial Cell Urine 15-25 /hpf (0-5)
[2020-02-04 13:06] LABS: Add Urine Culture? No; WBC Urine 25-40 /hpf (0-5)
[2020-02-04 13:26] LABS: Urine Creatinine 57 mg/dL (39-259); Urine Random Sodium 47 mmol/L
[2020-02-04 16:56] LABS: Glucose Point of Care 130 mg/dL (70-110)
[2020-02-04] MEDS: sodium chloride 0.9% (100 ml) 100 ML 10 ML (17:09)
--- NOTE | 2020-02-04 18:11 | US_ITS ---
WS: [id number] ULTRASOUND RENAL TECHNIQUE: Ultrasound examination of both kidneys. CLINICAL INFORMATION: trent on ckd COMPARISON: None. FINDINGS: Technically difficult examination due to body habitus. RIGHT: Right kidney is normal in size and appearance. Echogenicity: Normal. Cortical thickness: 1.4 cm; Normal. Hydronephrosis: None. Perinephric fluid: None. Right kidney measures: 10.4 cm x 4.7 cm x 5.0 cm. LEFT: Left kidney not well visualized. Left kidney is normal in size and appearance. Echogenicity: Normal. Cortical thickness: 1.3 cm; Normal. Hydronephrosis: None. Perinephric fluid: None. Left kidney measures: 11.3 cm x 4.2 cm x 4.7 cm. Normal visualized aorta. Small amount of debris in the dependent urinary bladder. IMPRESSION 1. Technically difficult examination. 2. No hydronephrosis in either kidney. 3. Dependent debris noted within the urinary bladder. Recommend correlation for UTI.
--- NOTE | 2020-02-04 18:21 | PC.NURSE ---
SHIFT SUMMARY PATIENT HAS DONE FAIRLY WELL TODAY. VITALS STABLE. PATIENT UNABLE TO VOID ON HIS OWN. THIS NURSE INSERTED A STRAIGHT CATH AND SHAH CATHETER. PATIENT HAS HAD 450ML OF CLOUDY URINE OUTPUT. URINE SENT TO LAB. SURGICAL DRESSING C/D/I. HEMOGLOBIN LOW, DR. SALTER ORDERED A BLOOD TRANSFUSION. BLOOD RUNNING AT THIS TIME. PATIENT'S BLOOD SUGARS ARE GOOD. PATIENT NOT TAKING IN MUCH ORALLY. CURRENTLY RESTING IN BED WATCHING TV. [facility] CALLED WITH AN UPDATE.
[2020-02-04 18:29] LABS: Urine Appearance Cloudy (CLEAR); Urine Color Yellow (Yellow); pH Urine 5 (5-7)
[2020-02-04 18:30] LABS: Add Urine Microscopic? YES; Bilirubin Urine Neg (Negative); Blood Urine 2+ (Negative); Glucose Urine UA Norm (Normal); Ketones Urine Negative (Negative); Leukocyte Esterase Urine 2+ (Negative); Nitrate Urine Negative (Negative); Protein Urine Trace (Negative); Specific Gravity, Urine 1.015 (1.005-1.030); Sulfosalicylic Acid Urine Negative (Negative); Urobilinogen Urine Norm (Negative)
--- NOTE | 2020-02-04 20:00 | PM.PN ---
Subjective Subjective: Interval history: This morning he is more alert, but it takes a while to come up with answers. He denies pain. He does not tell me the year. Knows he is in the [facility]. Cannot exactly explain why he is here. Vitals/I&O/Wt Last Vital Signs Temp 98.5 F 02/04/20 19:50 Pulse 73 02/04/20 19:50 Resp 18 02/04/20 19:50 BP 161/73 02/04/20 19:50 Pulse Ox 96 02/04/20 19:50 02/04/20 02/04/20 02/04/20 06:59 14:59 22:59 Intake Total 240 / 240 200 / 440 Output Total 450 / 450 Balance 240 / 240 -250 / -10 Physical Exam Const: COMMON NORMALS: no acute distress GENERAL APPEARANCE: cooperative OTHER: More alert, but appears somewhat confused. HENMT: COMMON NORMALS: oropharynx normal Neck/C-Spine: COMMON NORMALS: no JVD Resp: COMMON NORMALS: normal respiratory effort and clear to auscultation bilaterally AUSCULTATION: clear to auscultation bilaterally Cardio: COMMON NORMALS: no JVD, regular rhythm, S1 normal heart sound present, S2 normal heart sound present and No murmurs present (Cardio) RHYTHM: regular rhythm HEART SOUNDS: S1 normal heart sound present and S2 normal heart sound present GI: COMMON NORMALS: Normal to inspection, nondistended, normoactive bowel sounds present, Soft to palpation and non-tender PALPATION: Yes Soft to palpation Extremity: OTHER: Right BKA, wrapped in compression dressing, immobilizer. Neuro: COMMON NORMALS: moves all extremities Skin: COMMON NORMALS: no rashes or lesions noted GENERAL SKIN EXAM: no rashes or lesions noted OTHER: Chronic pressure ulcer on left heel. Sacrum not examined. Urinary Catheter Management^: Denise: Cath Placed During This Visit: yes Urinary Catheter Date of Insertion: 02/04/20 Urinary Catheter Time of Insertion: 12:25 Data : 02/04/20 04:15 02/04/20 04:15 A&P Assessment and plan (1) Urinary retention: Has not been producing much urine. This morning about 350 mL seen on bladder scan. He did not feel like he could urinate. Denise catheter was inserted, and with slow return of urine. Renal ultrasound with some debris showing up in the bladder, recommendation correlate for UTI. Requested UA, with pyuria, however, with 15-25 WBCs. Requested to repeat UA. He appears to be somewhat confused today, and this may be related to retention, versus possible UTI. Follow-up urinalysis. If UTI suspected, may require IV therapy with Primaxin given history of ESBL organisms in his wounds. Status: Acute (2) Acute anemia: Acute blood loss anemia, hemoglobin down to 6.9. Requested 1 unit PBC transfusion. She is starting transfusion currently. Will request for reassessment hemoglobin afterwards. Status: Acute (3) Status post below-knee amputation: He is more alert today. Denies pain. Is somewhat confused. Transfuse as above. Additional assessment as above, otherwise doing well from surgical perspective. Preoperative screening positive for COVID-19 on 01/31. Currently not requiring any oxygen. Appears he has not had any symptoms, discussed with his brother, unclear whether this was asymptomatic infection, but cannot also exclude that this is a more recent infection and he has not yet developed symptoms, otherwise his functional decline recently with some generalized weakness, may also be a symptom of his infection. Regardless, currently he is in isolation. We will monitor his oxygenation and for development of any other symptoms. Cut down IV fluids, keep with more conservative fluid management strategy. SCD for DVT prophylaxis. Consider additional pharmacal prophylaxis when safe. Pain control. PT and OT once he is better able to participate. Status: Chronic (4) Acute kidney injury superimposed on chronic kidney disease: Renal function appears stabilized at 4.8. BUN 95. His brother states that his renal function unfortunately has been worsening over a while, and he used to follow with a insurance follow up specialist. RN at the retirement is not aware that he is currently seeing a insurance follow up specialist. Looking back through laboratory studies, creatinine was 4.15 on 01/22. Currently is perhaps slightly worse, although not by much. I do not see that he is on any NSAIDs at the retirement. Preoperatively does not appear to have been hypotensive. On exam does not appear to be in acute CHF. Antibiotics used recently were Augmentin and Cipro. Technically difficult study but otherwise unremarkable kidney ultrasound except for some dependent debris in the urinary bladder. Urine studies. Discussed with brother he would benefit from resuming follow-up with nephrology. Avoid nephrotoxins. Monitor blood pressure, avoid hypotension. Currently on gentle fluid challenge. This may be prerenal secondary to poor oral intake recently. Status: Acute (5) Combined systolic and diastolic congestive heart failure: Currently appears compensated. Denies any shortness of breath. Not needing oxygen, Jayne significant JVD or peripheral edema. Monitor volume status. Status: Chronic Qualifiers: Heart failure chronicity: chronic Qualified Code(s): I50.42 - Chronic combined systolic (congestive) and diastolic (congestive) heart failure (6) Type 2 diabetes mellitus: SSI. I do not see that he takes detemir at the retirement. Consistent carbohydrate diet. Status: Chronic (7) CAD (coronary artery disease): Resumed aspirin. Continue statin. He is not on beta-jacky. Appears was having bradycardia back in December. Monitor heart rates. Status: Chronic (8) Hypertension: Monitor blood pressures, hold antihypertensives for now as blood pressure is soft. Resume clonidine first to avoid rebound hypertension. Status: Chronic Qualifiers: Hypertension type: essential hypertension Qualified Code(s): I10 - Essential (primary) hypertension (9) Seizure disorder: Continue Keppra Status: Chronic (10) COVID-19: COVID-19 positive PCR at retirement. Appears to be not symptomatic. Apart from perhaps contribution to his functional decline recently, generalized weakness. Monitor oxygenation. Monitor for development of any symptoms. Maintain isolation. Status: Acute Additional A&P Information Transaminitis: Minimal. Incidentally noted on CMP. Improved. Mild hyperkalemia: Potassium 5.3. Change diet to low potassium. Recheck. GERD: Resume PPI Chronic anemia Chronic pressure ulcers: Including left heel, sacrum. Reposition frequently. Continue wound care, follow-up with wound care clinic. Encourage oral nutrition as recently he has not been eating well. Consider adding protein shakes. Other chronic comorbidities. History of chronic pain, history of spinal stimulator implantation. Attestations Medical Necessity Statement*: Continue hospitalization for reassessment after transfusion going acute blood loss anemia, urinary retention, assessment of possible UTI with history of resistant organisms, confusion, in the setting of positive COVID-19 status in a gentleman after BKA surgery. Coding Level of Care Code Acute Merchandise Presentation Associate for Brandy Sanchez Diagnoses Urinary retention R33.9 Acute anemia D64.9 Status post below-knee amputation Z89.519 Acute kidney injury superimposed on chronic kidney disease N17.9; N18.9 Combined systolic and diastolic congestive heart failure I50.42 Heart failure chronicity: chronic Type 2 diabetes mellitus E11.9 CAD (coronary artery disease) I25.10 Hypertension I10 Hypertension type: essential hypertension Seizure disorder G40.909 COVID-19 U07.1
[2020-02-04 20:43] LABS: Glucose Point of Care 136 mg/dL (70-110)
[2020-02-04] MEDS: sodium chloride 0.9% 1,000 ML 50 ML IV (20:55)
[2020-02-05 04:00] VITALS: BP 123/80; PULSE 74; RESP 14; TEMP 37.5; O2SAT 94
--- NOTE | 2020-02-05 06:05 | PM.PN ---
Subjective Subjective: Interval history: Patient received 1 unit of packed RBCs yesterday and he was done by 8:30 PM. Was late for transportation [facility] so he was kept overnight. Otherwise no acute events, responded slightly to blood transfusion giving the fact that the patient has a baseline chronic anemia. Continues to be hemodynamically stable Vitals/I&O/Wt Last Vital Signs Temp 99.5 F 02/05/20 04:00 Pulse 74 02/05/20 04:00 Resp 14 02/05/20 04:00 BP 123/80 02/05/20 04:00 Pulse Ox 94 02/05/20 04:00 02/04/20 02/04/20 02/05/20 14:59 22:59 06:59 Intake Total 1240 / 1240 790 / 2030 Output Total 450 / 450 450 / 900 Balance 1240 / 1240 340 / 1580 -450 / 1130 Physical Exam Narrative: EXAM NARRATIVE: Patient is conscious alert oriented X3 for the most part BMI 30 Head and neck examination PERRLA no masses no cervical lymphadenopathy no jaundice Right below the knee amputation stump dressing is dry and knee immobilizer in place. Dressing was taken down by me and the incision line is clean dry and intact without evidence of cellulitis or erythema or discharge. Incision line was painted by Betadine and reapplication of 4 x 4's Kerlix ABDs Walter wrap followed by knee immobilizer. Urinary Catheter Management^: Denise: Cath Placed During This Visit: yes Reason for Continuing Indwelling Catheter: Acute Urinary Retention or Obstruction Urinary Catheter Date of Insertion: 02/04/20 Urinary Catheter Time of Insertion: 12:25 Data : 02/05/20 04:40 02/04/20 04:15 A&P Assessment and plan (1) Status post below knee amputation of right lower extremity: Patient is a status post below-knee amputation of the right lower extremity 02/03/2020 From surgical standpoint of view patient can be [facility] We will have the patient follow-up with me at the wound care center in 2 weeks 1-nutrition optimization in the form of protein shakes 3-4 times a day 2- DC dressing after hours and daily paint of the incision site with Betadine and cover dressing in the form of dry gauze followed by Walter wrap and knee immobilizer. 3-management of medical comorbidities 4-physical therapy consultation when needed 5-assurance and education Will continue updating power of potato chip processing supervisor Mr. Fernandez his brother I appreciate hospitalist input All questions have been answered and all concerns have been addressed to patient's satisfaction. Status: Acute Attestations Medical Necessity Statement*: Patient was kept in observation status to monitor his blood levels and postoperative pain control. Time Spent in Patient Care: 16 - 35 minutes (>than 50% of time spent in counselling and/or direct pt care on unit). Coding Level of Care Code Acute Manager Fashion for Brandy Fwsandra Diagnoses Status post below knee amputation of right lower extremity Z89.511
--- NOTE | 2020-02-05 06:10 | P.SS_ITS ---
Short Stay Summary Providers Date of Admit/Discharge: 02/05/20 Attending Provider: Hugo Davenport MD Primary Care Provider: Sajan Jack Jr, MD Chief Complaint: Type 2 diabetes, pressure ulcer of right heel stag HPI History of Present Illness Moy Fernandez is a 69 year old male complicated right diabetic foot wound patient required below the knee amputation due to the complex nature of the wound with nonhealing potential and exhausting all conservative measures. Patient was tested positive for COVID-19 2 days prior to surgery and because of the risk benefits and after discussing with the family Mr. Fernandez patient's brother agreed to proceed with below the knee amputation. Of the right lower extremity. Review of Systems General: Reports: 10 or more systems reviewed and unremarkable except in HPI and below Home Meds/Allergies Home Medications and Allergies Home Medications Medication Instructions Recorded Confirmed Type hydrocodone-acetaminophen 1 tab PO Q4H PRN 06/21/19 02/03/20 History aspirin 81 mg tablet,delayed 81 mg PO DAILY 12/04/19 02/03/20 History release atorvastatin 40 mg tablet 40 mg PO DAILY 12/04/19 02/03/20 History cholecalciferol (vitamin D3) 125 1,250 mcg PO DAILY 12/04/19 02/03/20 History mcg (5,000 unit) capsule clonidine HCl 0.1 mg tablet 0.1 mg PO BID 12/04/19 02/03/20 History ferrous sulfate 325 mg (65 mg 325 mg PO BID 12/04/19 02/03/20 History iron) tablet insulin detemir U-100 100 unit/mL 100 unit SUBCUT DAILY 12/04/19 02/03/20 History (3 mL) subcutaneous pen levetiracetam 500 mg tablet 500 mg PO BID 12/04/19 02/03/20 History miconazole nitrate 2 % topical 1 applic TOPICAL BID 12/04/19 02/03/20 History cream pantoprazole 40 mg tablet,delayed 40 mg PO DAILY 12/04/19 02/03/20 History release Dakin's Solution 1 applic TOPICAL BID 01/26/20 02/03/20 History amoxicillin-pot clavulanate 1 tab PO BID 01/26/20 02/03/20 History [Augmentin] atorvastatin 20 mg PO BEDTIME 01/26/20 02/03/20 History ciprofloxacin HCl 500 mg PO BID 01/26/20 02/03/20 History Allergies Allergy/AdvReac Type Severity Reaction Status Date / Time No Known Allergies Allergy Verified 02/04/20 13:55 PFSH Acute PFSH: Medical History (Updated 02/04/20 @ 20:03 by Karl Wilkerson MD) Atherosclerotic heart disease of [place] coronary artery without angina pectoris CHF (congestive heart failure) Chronic ulcer of ankle CKD (chronic kidney disease), stage III -known hx of CKD stage 3; baseline Cr is around 3-3.5 Combined systolic and diastolic congestive heart failure -has known hx of chronic combined systolic and diastolic CHF; no acute exacerbation currently -Echo (05/2018): EF=35% -stress testing in 05/2018 showing scarring with mild urmila-infarct ischemia in RCA territory Diabetes mellitus DNR (do not resuscitate) Elevated troponin level Hypertension Multilevel degenerative disc disease -has known hx of multilevel DJD, s/p spinal stimulator -hold opiates, sedating meds due to altered mental status -fall precautions -imaging reviewed, no acute findings Peripheral neuropathy Polyneuropathy in other diseases classified elsewhere Post-ictal state Rhabdomyolysis Seizure disorder Medical management Spinal cord stimulator status Spinal stenosis Type 2 diabetes mellitus Chronic medical management Surgical History (Updated 02/04/20 @ 13:56 by Hugo Davenport MD) S/P CABG x 3 S/P insertion of spinal cord stimulator Family History Other Hyperlipidemia Hypertension Denies family history of Psychiatric illness Lung disease Social History Smoking and tobacco status: former smoker Alcohol intake: former Substance/Drug Use: never Lives independently: No (Brother is his power of ground school instructor, recently has had to be involved in more decisions) Housing: Senior Living Current occupation: Living alone, he was discharged to home with home hospice Vitals/I&O/Wt Last Vital Signs Temp 99.0 F 02/04/20 11:38 Pulse 74 02/04/20 11:38 Resp 20 H 02/04/20 11:38 BP 143/63 02/04/20 11:38 Pulse Ox 94 02/04/20 11:38 02/03/20 02/04/20 02/04/20 22:59 06:59 14:59 Intake Total 410 / 410 240 / 240 Balance 410 / 410 240 / 240 Physical Exam Narrative: EXAM NARRATIVE: Physical Exam Narrative EXAM NARRATIVE: Patient is conscious alert oriented X3 BMI 30 Head and neck examination PERRLA no masses no cervical lymphadenopathy no jaundice Abdomen nontender nondistended soft no organomegaly guarding or rigidity/no signs of peritonitis Right below the knee amputation stump dressing is dry and knee immobilizer in place. Urinary Catheter Management^: Denise: Cath Placed During This Visit: yes Urinary Catheter Date of Insertion: 02/04/20 Urinary Catheter Time of Insertion: 12:25 Hospital Course Admission Diagnoses: Complicated right diabetic foot wound Hospital Course: Patient overall did well tolerating p.o. intake stable vital signs requiring 1 unit of blood transfusion. Discharge Summary: 69 years old gentleman with multiple medical comorbidities requiring right below the knee amputation for complicated diabetic foot infection. Patient overall did well I elected to observe the patient overnight to monitor his vital signs make sure that the patient has appropriate pain control and repeat labs which showed low H&H yet the patient does have a low chronic anemia. Hospitalist was consulted for management of medical comorbidities and a unit of blood was requested per hospitalist service. Otherwise patient tolerating p.o. intake and continued to have stable vital signs. We will plan to discharge patient to snf facility and follow-up with surgery office in 2 weeks for DC skin gina. Specific instructions were given with regard to her incision care. 02/05/2020 Patient developed urinary retention and a Denise catheter was inserted per hospitalist. Patient received a unit of blood yesterday was done by 8:30 PM it was late for transportation availability to send the patient back to the snf. So the patient was kept overnight and the plan to discharge to the snf. SSS Data Data Completed and Pending: Completed Studies During Hospitalization Category Date Time Status US renal BI* [id number] Routine Ultrasound 02/04/20 18:11 Completed Pending at discharge Category Date Time Status Basic Metabolic P josé miguel AM LABS Lab 02/05/20 04:00 Ordered Basic Metabolic P josé miguel AM LABS Lab 02/06/20 04:00 Ordered Complete Blood Co unt w/Auto AM LABS Lab 02/05/20 04:00 Ordered Complete Blood Co unt w/Auto AM LABS Lab 02/06/20 04:00 Ordered Comprehensive Met abolic Panel AM LA BS Lab 02/05/20 04:00 Ordered Comprehensive Met abolic Panel AM LA BS Lab 02/06/20 04:00 Ordered Hemoglobin and He matocrit AM LABS Lab 02/05/20 04:00 Ordered Hemoglobin and He matocrit AM LABS Lab 02/06/20 04:00 Ordered Leukocyte Reduced RBC Routine Lab 02/04/20 11:54 Ordered Diagnoses at Discharge Discharge Diagnosis (1) Status post below-knee amputation: Status: Chronic Problem details: Wound care per orders (2) Acute kidney injury superimposed on chronic kidney disease: Status: Acute Problem details: Patient will require nephrology consultation as an outpatient (3) Combined systolic and diastolic congestive heart failure: Status: Chronic Problem details: -has known hx of chronic combined systolic and diastolic CHF; no acute exacerbation currently -Echo (05/2018): EF=35% -stress testing in 05/2018 showing scarring with mild urmila-infarct ischemia in RCA territory Qualifiers: Heart failure chronicity: chronic Qualified Code(s): I50.42 - Chronic combined systolic (congestive) and diastolic (congestive) heart failure (4) Type 2 diabetes mellitus: Status: Chronic Problem details: Chronic medical management (5) CAD (coronary artery disease): Status: Chronic Problem details: Medical management (6) Hypertension: Status: Chronic Problem details: Medical management Qualifiers: Hypertension type: essential hypertension Qualified Code(s): I10 - Essential (primary) hypertension (7) Seizure disorder: Status: Chronic Problem details: Medical management (8) COVID-19: Status: Acute Discharge Plan Discharge Patient Disposition: [facility] w Plan Readm Condition: Stable Prescriptions: Continued atorvastatin 40 mg tablet 40 mg PO DAILY RF: 0 aspirin [Adult Low Dose Aspirin] 81 mg tablet,delayed release (DR/EC) 81 mg PO DAILY RF: 0 clonidine HCl 0.1 mg tablet 0.1 mg PO BID RF: 0 levetiracetam 500 mg tablet 500 mg PO BID RF: 0 pantoprazole 40 mg tablet,delayed release (DR/EC) 40 mg PO DAILY RF: 0 Levemir FlexTouch U-100 Insuln 100 unit/mL (3 mL) insulin pen 100 unit SUBCUT DAILY RF: 0 miconazole nitrate 2 % cream 1 applic TOPICAL BID RF: 0 cholecalciferol (vitamin D3) 125 mcg (5,000 unit) capsule 1,250 mcg PO DAILY RF: 0 ferrous sulfate 325 mg (65 mg iron) tablet 325 mg PO BID RF: 0 hydralazine 10 mg tablet 10 mg PO TID Qty: 270 RF: 3 acetaminophen 325 mg Tablet 650 mg PO Q6H PRN (Reason: Mild/Mod Pain Or Temp >/= 101) Qty: 0 RF: 0 atorvastatin 20 mg Tablet 20 mg PO BEDTIME RF: 0 ciprofloxacin HCl 500 mg Tablet 500 mg PO BID RF: 0 amoxicillin-pot clavulanate [Augmentin] 875-125 mg Tablet 1 tab PO BID RF: 0 Dakin's Solution 0.125 % Solution 1 applic TOPICAL BID RF: 0 hydrocodone-acetaminophen 5-325 mg Tablet 1 tab PO Q4H PRN (Reason: Pain) RF: 0 insulin aspart U-100 [Novolog U-100 Insulin aspart] 100 unit/mL Solution See Rx Instructions .ROUTE .COMPLEX Qty: 10 RF: 0 Discharge Orders: Discharge Order (Routine); Ordered 02/04/20 Ordered By: Hugo Davenport Referrals: Hugo Davenport MD [Physician] - 2 weeks (Follow up with [facility] on SundayFebruary 19 at 09:30 am) Discharge Diet: Advance as tolerated Discharge Activity: Limit activity as instructed and As per PT/OT instructions Activity Restrictions/Additional Instructions: 1-nutrition optimization 2-wound care in the form of 1. Patient can shower after 48 hours from surgery 2. Remove Dermabond 7 to 10 days after surgery, if there is a secondary dressing can take down after 48 hours. 3. Up and walking as tolerated 4. Do lift more than 5 pounds first 2 weeks after surgery and not more than 25 pounds 6 to 8 weeks after surgery. 5. Do not operate heavy machinery or drive while using pain medications. 6.Contact the office or return to the ER for worsening nausea vomiting fevers or chills, or noticing any redness around incision sites or discharge. dressing down tomorrow and paint with Betadine daily followed by dry dressing and kerlix and kary wrap followe dby knee immoblizer 3-management of medical comorbidities 4-physical therapy consultation when needed 5-assurance and education 6-voiding trials should be attempted at the snf with the plan to DC Denise catheter. All questions have been answered and all concerns have been addressed to patient's satisfaction. Attestations Medical Necessity Statement*: Observation status for pain control and blood transfusion. Time Spent in Patient Care*: less than 30 min Specific Discharge Activities: Specific discharge activities: educating patient and educating and/or supporting family/caregiver Status at Discharge: Cognitive status at discharge: cognitively intact , Behavioral status at discharge: cooperative , Functional status at discharge: wheelchair bound Overall status at discharge: patient is progressing back to baseline Quality Metrics Clinical Quality Measures: During this hospital stay, did patient experience: None Coding Level of Care Code Acute Felt Machine Mechanic for Brandy Sanchez Diagnoses Status post below-knee amputation Z89.519 Acute kidney injury superimposed on chronic kidney disease N17.9; N18.9 Combined systolic and diastolic congestive heart failure I50.42 Heart failure chronicity: chronic Type 2 diabetes mellitus E11.9 CAD (coronary artery disease) I25.10 Hypertension I10 Hypertension type: essential hypertension Seizure disorder G40.909 COVID-19 U07.1
[2020-02-05 08:00] VITALS: BP 146/75; PULSE 78; RESP 18; TEMP 37.3; O2SAT 96
[2020-02-05 08:07] LABS: Glucose Point of Care 162 mg/dL (70-110)
[2020-02-05] MEDS: aspirin 81 mg EC Tablet PO (08:30)
[2020-02-05] MEDS: sodium chloride 0.9% 1,000 ML 50 ML IV (08:55)
[2020-02-05] MEDS: levETIRAcetam 500 mg Tablet PO (09:50)
[2020-02-05] MEDS: atorvastatin 40 mg Tablet PO (09:50)
[2020-02-05] MEDS: pantoprazole DR 40 mg Tablet PO (09:51)
[2020-02-05 10:25] LABS: Basophils % 0.1 %; Hematocrit 26.1 % (42.0-52.0); Hemoglobin 7.8 g/dL (11.7-16.6); Lymphocytes # 0.5 10^3/uL (0.8-4.8); Lymphocytes % 3.5 %; Mean Corpuscular HGB Conc 29.9 g/dL (30.0-36.0); Mean Corpuscular Hemoglobin 27.6 pg (28.0-34.0); Mean Corpuscular Volume 92.2 fL (80-94); Mean Platelet Volume 9.2 fL (7.4-10.4); Monocytes # 0.6 10^3/uL (0.2-0.9); Monocytes % 4.2 %; Neutrophils # 13.47 10^3/uL (1.8-7.7); Neutrophils % 91.7 %; Nucleated Red Blood Cells % 0 %; Platelet Count 299 10^3/cmm (130-400); Red Blood Count 2.83 10^6/uL (4.1-5.3); Red Cell Distribution Width 16.3 % (12.1-15.1); White Blood Count 14.7 10^3/uL (4.0-10.0)
[2020-02-05 10:35] LABS: Alanine Aminotransferase 12 U/L (0-41); Albumin Level 2.4 g/dL (3.5-5.2); Alkaline Phosphatase 63 IU/L (40-130); Anion Gap 20.1 (5-19); Aspartate Amino Transferase 44 U/L (0-40); Carbon Dioxide 15 mmol/L (22-29); Chloride 115 mmol/L (98-107); Globulin 4.2 g/dL (1.3-4.6); Glucose 121 mg/dL (65-115); Potassium 5.1 mmol/L (3.5-5.1); Sodium 145 mmol/L (136-145); Total Bilirubin 0.2 mg/dL (0.15-1.2); Total Protein 6.6 g/dL (6.6-8.7)
[2020-02-05 10:45] LABS: Blood Urea Nitrogen 96 mg/dL (8-23); Osmolality Calculated 331 mOsm/kg (285-295)
[2020-02-05 11:58] LABS: Glucose Point of Care 145 mg/dL (70-110)
[2020-02-05 12:00] VITALS: BP 173/70; PULSE 87; RESP 19; TEMP 37.3; O2SAT 96
[2020-02-05 13:28] LABS: Add Urine Microscopic? YES; Bilirubin Urine Neg (Negative); Blood Urine 3+ (Negative); Glucose Urine UA Norm (Normal); Ketones Urine Negative (Negative); Leukocyte Esterase Urine 1+ (Negative); Nitrate Urine Negative (Negative); Protein Urine 1+ (Negative); Specific Gravity, Urine 1.015 (1.005-1.030); Urine Appearance Clear (CLEAR); Urine Color Straw (Yellow); Urobilinogen Urine Norm (Negative); pH Urine 5 (5-7)
[2020-02-05 13:31] LABS: Squamous Epithelial Cell Urine 0-4 /hpf (0-5); WBC Urine 25-40 /hpf (0-5)
[2020-02-05 13:32] LABS: Add Urine Culture? Yes; Bacteria Urine 1+ /hpf; Mucus Urine TRACE /hpf
[2020-02-05 15:09] VITALS: BP 134/66; PULSE 90; RESP 17; TEMP 37.3; O2SAT 96
--- NOTE | 2020-02-05 16:37 | P.PN_ITS ---
Subjective Subjective: Interval history: He is awake, but is somewhat withdrawn with flat affect. Does answer a few questions by nodding, but otherwise not conversant, not really following commands. I am told her this has been more like his recent baseline [facility]. This appears to be confirmed also by his brother. I discussed with his brother concerned that he is having urinary tract infection, possibly contributing to the recent functional and cognitive decline. Brother is agreeable with antibiotic course with ertapenem given history of ESBL infection. Discussed risks and benefits including possible risk of seizure. Urine culture will be pending and needs to be followed up. Vitals/I&O/Wt Last Vital Signs Temp 99.2 F 02/05/20 15:09 Pulse 90 02/05/20 15:09 Resp 17 02/05/20 15:09 BP 134/66 02/05/20 15:09 Pulse Ox 96 02/05/20 15:09 02/05/20 02/05/20 02/05/20 06:59 14:59 22:59 Intake Total 600 / 600 Output Total 450 / 900 Balance -450 / 1130 600 / 600 Physical Exam Const: COMMON NORMALS: no acute distress GENERAL APPEARANCE: cooperative OTHER: More alert. A little bit more interactive. Does not appear in discomfort or distress. Somewhat withdrawn, with flat affect. HENMT: COMMON NORMALS: oropharynx normal Neck/C-Spine: COMMON NORMALS: no JVD Resp: COMMON NORMALS: normal respiratory effort and clear to auscultation bilaterally AUSCULTATION: clear to auscultation bilaterally Cardio: COMMON NORMALS: no JVD, regular rhythm, S1 normal heart sound present, S2 normal heart sound present and No murmurs present (Cardio) RHYTHM: regular rhythm HEART SOUNDS: S1 normal heart sound present and S2 normal heart sound present GI: COMMON NORMALS: Normal to inspection, nondistended, normoactive bowel sounds present, Soft to palpation and non-tender PALPATION: Yes Soft to palpation Extremity: OTHER: Right BKA, wrapped in compression dressing, immobilizer. Neuro: COMMON NORMALS: moves all extremities Skin: COMMON NORMALS: no rashes or lesions noted GENERAL SKIN EXAM: no rashes or lesions noted OTHER: Chronic pressure ulcer on left heel. Sacrum not examined. Urinary Catheter Management^: Denise: Cath Placed During This Visit: yes Reason for Continuing Indwelling Catheter: Acute Urinary Retention or Obstruction Urinary Catheter Date of Insertion: 02/04/20 Urinary Catheter Time of Insertion: 12:25 Data : 02/05/20 04:40 02/05/20 04:40 A&P Assessment and plan (1) UTI (urinary tract infection): Urine sample redrawn several times as for sample appears was contaminated, with a high number of squamous epithelial cells. Sample from today with only 0- 4 epithelial cells, but with 25-40 WBCs. Appears he likely is having UTI. Dis cussed with his brother as well as patient. Discussed that perhaps recent functional decline and cognitive decline may be related to a urinary tract infection. Urine culture will be pending and will need to be followed up. Discussed treatment options with his brother. Unfortunately given he has history of ESBL infection (although in his wound), and fortunately may need to be expecting that this may be resistant organism. At this time empirically started on ertapenem, and having received the first dose in the hospital will request for additional 4 doses to be completed IV [facility] the [facility]. Brother is agreeable with assessment and plan. Augmentin and Cipro at this time are discontinued. Status: Acute (2) Declining functional status: Recently declining functional capacity. Concern is possibly for developing depression as he has been here alone and his brother's daily family who is currently in [place]. Patient was noted to be increasingly withdrawn. Currently with flat affect. Not very cooperative. Does answer some questions. Otherwise requiring good amount of assistance. Does appear to have acute UTI. Once this is treated, please consider additional referral for assessment, possibly with [facility] to exclude depression. Possibly with neurology to exclude progressive cognitive decline or other causes. Status: Acute (3) Urinary retention: Denise catheter requested to be kept in place for now due to urinary retention noted in the hospital. Please attempt voiding trial after UTI is treated. If further issues, please refer to urology for evaluation. Status: Acute (4) Acute anemia: Postoperatively acute anemia. Responded to PRBC transfusion. Please follow-up CBC level in 3 days. Status: Acute (5) Status post below-knee amputation: Continue wound care. Follow-up with surgery in office. PT and OT assessment. Preoperative screening positive for COVID-19 on 01/31. Currently not requiring any oxygen. Appears he has not had any symptoms, discussed with his brother, unclear whether this was asymptomatic infection, but cannot also exclude that this is a more recent infection and he has not yet developed symptoms, otherwise his functional decline recently with some generalized weakness, may also be a symptom of his infection. Regardless, currently he is in isolation. We will monitor his oxygenation and for development of any other symptoms. Status: Chronic (6) Acute kidney injury superimposed on chronic kidney disease: Please refer for follow-up with nephrology. Appears to be having progression of chronic kidney disease. Renal function will bit better today, but still worse than he has ever had, creatinine 4.5, BUN 95. Avoid NSAIDs or other nephrotoxins. Encourage oral intake. Preoperatively does not appear to have been hypotensive. On exam does not appear to be in acute CHF. Antibiotics used recently were Augmentin and Cipro. Technically difficult study but otherwise unremarkable kidney ultrasound except for some dependent debris in the urinary bladder. UTI. Status: Acute (7) Combined systolic and diastolic congestive heart failure: Currently appears compensated. Denies any shortness of breath. Not needing oxygen, Jayne significant JVD or peripheral edema. Monitor volume status. Status: Chronic Qualifiers: Heart failure chronicity: chronic Qualified Code(s): I50.42 - Chronic combined systolic (congestive) and diastolic (congestive) heart failure (8) Type 2 diabetes mellitus: SSI. I do not see that he takes detemir at the [facility]. Consistent carbohydrate diet. Status: Chronic (9) CAD (coronary artery disease): Resumed aspirin. Continue statin. He is not on beta-jacky. Appears was having bradycardia back in December. Monitor heart rates. Status: Chronic (10) Hypertension: Monitor blood pressures, hold antihypertensives for now as blood pressure is soft. Resume clonidine first to avoid rebound hypertension. Status: Chronic Qualifiers: Hypertension type: essential hypertension Qualified Code(s): I10 - Essential (primary) hypertension (11) Seizure disorder: Continue Keppra Status: Chronic (12) COVID-19: COVID-19 positive PCR at [facility]. Appears to be not symptomatic. Apart from perhaps contribution to his functional decline recently, generalized weakness. Monitor oxygenation. Monitor for development of any symptoms. Maintain isolation. Status: Acute (13) History of ESBL E. coli infection: Status: Acute Additional A&P Information Transaminitis: Minimal. Incidentally noted on CMP. Improved. Mild hyperkalemia: Potassium 5.3. Improved. Follow potassium level and renal function in 3 days. Maintain low potassium diet. GERD: Resume PPI Chronic anemia Chronic pressure ulcers: Including left heel, sacrum. Reposition frequently. Continue wound care, follow-up with wound care clinic. Encourage oral nutrition as recently he has not been eating well. Consider adding protein shakes. Other chronic comorbidities. History of chronic pain, history of spinal stimulator implantation. Attestations Medical Necessity Statement*: Returning to snf facility. Coding Level of Care Code Acute Cobbler Sole for [facility] Fwd Exam Comprehensive Diagnoses UTI (urinary tract infection) N39.0 Declining functional status R53.81 Urinary retention R33.9 Acute anemia D64.9 Status post below-knee amputation Z89.519 Acute kidney injury superimposed on chronic kidney disease N17.9; N18.9 Combined systolic and diastolic congestive heart failure I50.42 Heart failure chronicity: chronic Type 2 diabetes mellitus E11.9 CAD (coronary artery disease) I25.10 Hypertension I10 Hypertension type: essential hypertension Seizure disorder G40.909 COVID-19 U07.1 History of ESBL E. coli infection Z86.19
[2020-02-05 18:19] VITALS: BP 134/66; PULSE 90; RESP 17; TEMP 37.3; O2SAT 96
== END 2020-02-05 16:55 ==
LOC: MEDSURG 15:46
PROVIDERS: Internal Medicine; Admitting Provider Surgery; PCP Family Medicine; Visit Provider Surgery
DX: E11.621 Type 2 diabetes mellitus with foot ulcer (principal); L89.614 Pressure ulcer of right heel, stage 4; N17.9 Acute kidney failure, unspecified; Z66 Do not resuscitate; E11.42 Type 2 diabetes mellitus with diabetic polyneuropathy; Z87.891 Personal history of nicotine dependence; J44.9 Chronic obstructive pulmonary disease, unspecified; I25.10 Atherosclerotic heart disease of native coronary artery without angina pectoris; I13.0 Hypertensive heart and chronic kidney disease with heart failure and stage 1 through stage 4 chronic kidney disease, or unspecified chronic kidney disease; I50.42 Chronic combined systolic (congestive) and diastolic (congestive) heart failure; N18.30 Chronic kidney disease, stage 3 unspecified; E11.22 Type 2 diabetes mellitus with diabetic chronic kidney disease; I25.2 Old myocardial infarction; G40.909 Epilepsy, unspecified, not intractable, without status epilepticus; Z95.1 Presence of aortocoronary bypass graft; Z96.82 Presence of neurostimulator; M47.9 Spondylosis, unspecified; R33.9 Retention of urine, unspecified; K21.9 Gastro-esophageal reflux disease without esophagitis; D62 Acute posthemorrhagic anemia; L89.159 Pressure ulcer of sacral region, unspecified stage; Z79.82 Long term (current) use of aspirin; Z79.891 Long term (current) use of opiate analgesic; U07.1 COVID-19; Z79.4 Long term (current) use of insulin
CPT/HCPCS: 27882; 12345; 36415; 36416; 36430; 51702; 51798; 76770; 80053; 81001; 81003; 82570; 82962; 84300; 85025; 86850; 86900; 86920; 87086; 88300; 88307; 93005; 96361; 96365; 96372; 96375; G0378; J0131; J0690; J1100; J1335; J1644; J1815; J2405; J2704; J2795; J3010; J3490; J7030; P9016

== ENCOUNTER 2020-02-14 14:30 | Emergency (ER) | payer MEDICARE, SELFPAY ==
[2020-02-14] VITALS (9 sets, daily range): BP systolic 107–158; BP diastolic 36–83; PULSE 55–102; RESP 17–32; TEMP 36.9; O2SAT 93–100
--- NOTE | 2020-02-14 14:53 | XRR_ITS ---
PROCEDURE INFORMATION: Exam: XR Chest, 1 View Exam date and time: 02/14/2020 2:57 PM Age: 69 years old Clinical indication: Shortness of breath; Additional info: AMS TECHNIQUE: Imaging protocol: XR of the chest Views: 1 view. COMPARISON: CR XR chest 1V portable [id number] 10/02/2019 3:59 AM FINDINGS: Tubes, catheters and devices: Previously noted right jugular central line has been removed. Lungs: Low lung volumes due to suboptimal inspiration. This causes crowding of the lung markings. Bibasilar atelectasis versus infiltrates, left worse than right. Pleural space: No pleural effusion. No pneumothorax. Heart/Mediastinum: No cardiomegaly. Bones/joints: Median sternotomy noted. XR/XR chest 1V portable [id number] IMPRESSION: 1. Low lung volumes due to suboptimal inspiration. This causes crowding of the lung markings. 2. Bibasilar atelectasis versus infiltrates, left worse than right. Left lower lobe disease appears worse when compared to 10/02/2019.
--- NOTE | 2020-02-14 14:57 | ED_ITS ---
HPI - Seizure General: Chief Complaint: Seizure Stated Complaint: POSS SEPSIS Time Seen by Provider: 02/14/20 14:36 Source: EMS Mode of arrival: EMS Limitations: altered mental status History of Present Illness: HPI Narrative: Patient is a 69-year-old [facility] with multiple medical issues including hypertension, diabetes, CKD, heart failure, seizure disorder. About 13 days ago he tested positive for Covid 19 and 2 days after that he had a below-knee amputation due to worsening wound and potential sepsis. snf reports that since the procedure the patient has not been communicating much, is refusing all his medications, and has now change his CODE STATUS to DNR. Today the [facility] staff noticed that he was hypoxic but we found out that this was only after he had had a seizure. Patient is nonverbal at this time and is unable to give a history. Shortly after arrival in the emergency department he had a generalized tonic- clonic seizure that lasted about 30 seconds. During the seizure he was hypoxic and was placed in his left lateral position and a jaw thrust was done which improved his oxygenation. MD complaint: seizure Review of Systems General: Reports: ROS unobtainable due to mental status PFSH ED PFSH: Medical History Atherosclerotic heart disease of [place] coronary artery without angina pectoris CHF (congestive heart failure) Chronic ulcer of ankle CKD (chronic kidney disease), stage III -known hx of CKD stage 3; baseline Cr is around 3-3.5 Combined systolic and diastolic congestive heart failure -has known hx of chronic combined systolic and diastolic CHF; no acute exacerbation currently -Echo (05/2018): EF=35% -stress testing in 05/2018 showing scarring with mild urmila-infarct ischemia in RCA territory Diabetes mellitus DNR (do not resuscitate) Elevated troponin level Hypertension Multilevel degenerative disc disease -has known hx of multilevel DJD, s/p spinal stimulator -hold opiates, sedating meds due to altered mental status -fall precautions -imaging reviewed, no acute findings Peripheral neuropathy Polyneuropathy in other diseases classified elsewhere Post-ictal state Rhabdomyolysis Seizure disorder Medical management Spinal cord stimulator status Spinal stenosis Type 2 diabetes mellitus Chronic medical management Surgical History S/P CABG x 3 S/P insertion of spinal cord stimulator Status post below knee amputation of right lower extremity Status post below-knee amputation Wound care per orders Family History Other Hyperlipidemia Hypertension Denies family history of Psychiatric illness Lung disease Social History Smoking and tobacco status: former smoker Alcohol intake: former Lives independently: No (Brother is his power of attorney at law, recently has had to be involved in more decisions) Housing: Custodial Current occupation: Living alone, he was discharged to home with home hospice Physical Exam Narrative: EXAM NARRATIVE: Patient is postictal and not responding to stimuli Const: COMMON NORMALS: no acute distress EXAM LIMITATIONS: altered mental status HENMT: COMMON NORMALS: normocephalic and atraumatic HEAD & SCALP: normocephalic and atraumatic Neck/C-Spine: COMMON NORMALS: no meningeal signs Resp: COMMON NORMALS: normal respiratory effort and No retractions AUSCULTATION: crackles and other (Coarse breath sounds) Cardio: COMMON NORMALS: regular rate, regular rhythm, S1 normal heart sound present and S2 normal heart sound present RATE: regular rate RHYTHM: regular rhythm HEART SOUNDS: S1 normal heart sound present and S2 normal heart sound present GI: COMMON NORMALS: Normal to inspection, nondistended, normoactive bowel sounds present, Soft to palpation, non-tender and No hepatosplenomegaly present PALPATION: Yes Soft to palpation and Yes No hepatosplenomegaly present Extremity: NARRATIVE EXTREMITY EXAM: Left lower extremity the posterior leg splint. Right below-knee amputation with the lower extremity in a knee immobilizer. Wound dressing clean and dry. Neuro: SENSORIUM/ORIENTATION: Yes somnolent MENINGEAL SIGNS: Yes no meningeal signs Course Reevaluation(s): Reevaluation #1: Discussed the patient with his brother who is his guardian, Sajan Fernandez. Explained the clinical condition of his brother. Explained that he has not had another seizure in greater than 6 hours. Discussed options with him - patient still not talking and not responsive. He is unlikely to begin to take oral medications soon. We can admit and give IV antiepileptics. another option is to place a PEG tube for feeding and medications. Sajan stated that he does not his brother to suffer and questioned what the half-way benefit of the PEG tube would be. He states that the patient had given up a long time ago, and we would only be prolonging the inevitable. He therefore agreed to place the patient on hospice care and discharge back to the [facility]. He would get a flight and come to see the patient in the next few days. I think this is reasonable as i believe the patient is likely at end of life. Will therefore discharge him back on hospice/comfort measures Time: 23:06 Consultations: Consultation #1: Discussed the patient with Dr. Calderon, hospitalist. Since the patient is Covid positive he will probably need a Covid bed which we do not have at this facility. Advised that he is transferred. Time: 17:09 Consultation #2: Dr. Shankar, hospitalist at [facility] in [place]. He kindly accepted the patient to his service. [facility] called back and said that since his COVID test is more than 10 days ago he will not be admitted to their COVID unit and so will not accept the patient. Explained that other concerns include possible status epilepticus and he may need neurology consult. They will page their neurologist and contact me back Time: 17:40 Consultation #3: Discussed with Dr. De Paz, neurologist at [facility]. She advised that we know the reason why he is having seizures, he is not taking his antiepileptics. She advised that we give 100mg of IV phenobarbital. If he continues to have seizures then they will accept him. Time: 19:50 Vital Signs: Vital signs: Vital Signs Temperature 98.5 F 02/14/20 14:40 Pulse Rate 55 L 02/14/20 22:30 Respiratory Rate 17 02/14/20 22:30 Blood Pressure 120/36 02/14/20 22:30 Pulse Oximetry 100 02/14/20 22:30 MDM - Seizure MDM Narrative: Medical decision making narrative: Unfortunate gentleman who has been on a slow decline for several months and he is more precipitous decline since surgery about 10 days ago. He has stopped taking his medications since surgery, 1 of which is antiepileptics as he has a history of seizures. The patient had a total of 3 seizures today and is still unresponsive. Discussed with his brother and since the patient is most likely terminal he does not think aggressive treatment would benefit this patient and will only decrease his quality of life. He would love his brother to pass away in dignity. He therefore agreed to place the patient on hospice care and [facility]. Medical Records: Attestation: I reviewed the patient's medical records. Lab Data: Attestation: I reviewed the patient's lab results. Labs: Lab Results 02/14/20 02/14/20 02/14/20 Range/Units 14:16 14:16 14:16 WBC 10.0 (4.0-10.0) 10^3/ uL RBC 2.91 L (4.1-5.3) 10^6/u L Hgb 8.0 L (11.7-16.6) g/dL Hct 27.1 L (42.0-52.0) % MCV 93.1 (80-94) fL MCH 27.5 L (28.0-34.0) pg MCHC 29.5 L (30.0-36.0) g/dL RDW 15.9 H (12.1-15.1) % Plt Count 202 (130-400) 10^3/c mm MPV 9.7 (7.4-10.4) fL Neut % (Auto) 89.0 % Lymph % (Auto) 3.9 % Dawes % (Auto) 5.0 % Eos % (Auto) 0.9 % Baso % (Auto) 0.1 % Neut # (Auto) 8.91 H (1.8-7.7) 10^3/u L Lymph # (Auto) 0.4 L (0.8-4.8) 10^3/u L Dawes # (Auto) 0.5 (0.2-0.9) 10^3/u L Eos # (Auto) 0.1 (0.0-0.8) 10^3/u L Baso # (Auto) 0.0 (0.0-0.1) 10^3/u L Nucleated RBC % (a uto) 0 % Nucleated RBCs # 0.0 /100WBC PT 38.20 H (12.1-14.9) SECO NDS INR 3.71 H (0.8-1.2) Sodium 141 (136-145) mmol/L Potassium 4.8 (3.5-5.1) mmol/L Chloride 108 H (98-107) mmol/L Carbon Dioxide 16 L (22-29) mmol/L Anion Gap 21.8 H (5-19) BUN 101 H* (8-23) mg/dL Creatinine 5.4 H (0.7-1.2) mg/dL GFR Calculation Not Reportable Glucose 78 (65-115) mg/dL Calculated Osmolal ity 322 H (285-295) mOsm/k g Lactic Acid (0.5-2.2) mmol/L Calcium 8.3 L (8.5-10.5) mg/dL Total Bilirubin 0.2 (0.15-1.2) mg/dL AST 13 (0-40) U/L ALT < 5 (0-41) U/L Alkaline Phosphata se 76 (40-130) IU/L Total Protein 6.5 L (6.6-8.7) g/dL Albumin 2.6 L (3.5-5.2) g/dL Globulin 3.9 (1.3-4.6) g/dL Procalcitonin 0.50 (0-0.5) ng/mL Urine Color (Yellow) Urine Appearance (CLEAR) Urine pH (5-7) Ur Specific Gravit y (1.005-1.030) Urine Protein (Negative) Urine Glucose (UA) (Normal) Urine Ketones (Negative) Urine Blood (Negative) Urine Nitrate (Negative) Urine Bilirubin (Negative) Urine Urobilinogen (Negative) mg/dL Ur Leukocyte Nadege ase (Negative) Urine RBC (0-2) /hpf Urine WBC (0-5) /hpf Ur Squamous Epith Cells Amorphous Sediment Urine Bacteria (NONE) /hpf Urine Yeast /hpf 02/14/20 02/14/20 Range/Units 15:27 15:27 WBC (4.0-10.0) 10^3/ uL RBC (4.1-5.3) 10^6/u L Hgb (11.7-16.6) g/dL Hct (42.0-52.0) % MCV (80-94) fL MCH (28.0-34.0) pg MCHC (30.0-36.0) g/dL RDW (12.1-15.1) % Plt Count (130-400) 10^3/c mm MPV (7.4-10.4) fL Neut % (Auto) % Lymph % (Auto) % Dawes % (Auto) % Eos % (Auto) % Baso % (Auto) % Neut # (Auto) (1.8-7.7) 10^3/u L Lymph # (Auto) (0.8-4.8) 10^3/u L Dawes # (Auto) (0.2-0.9) 10^3/u L Eos # (Auto) (0.0-0.8) 10^3/u L Baso # (Auto) (0.0-0.1) 10^3/u L Nucleated RBC % (a uto) % Nucleated RBCs # /100WBC PT (12.1-14.9) SECO NDS INR (0.8-1.2) Sodium (136-145) mmol/L Potassium (3.5-5.1) mmol/L Chloride (98-107) mmol/L Carbon Dioxide (22-29) mmol/L Anion Gap (5-19) BUN (8-23) mg/dL Creatinine (0.7-1.2) mg/dL GFR Calculation Glucose (65-115) mg/dL Calculated Osmolal ity (285-295) mOsm/k g Lactic Acid 1.3 (0.5-2.2) mmol/L Calcium (8.5-10.5) mg/dL Total Bilirubin (0.15-1.2) mg/dL AST (0-40) U/L ALT (0-41) U/L Alkaline Phosphata se (40-130) IU/L Total Protein (6.6-8.7) g/dL Albumin (3.5-5.2) g/dL Globulin (1.3-4.6) g/dL Procalcitonin (0-0.5) ng/mL Urine Color Yellow (Yellow) Urine Appearance Hazy A (CLEAR) Urine pH 5 (5-7) Ur Specific Gravit y 1.015 (1.005-1.030) Urine Protein 1+ H (Negative) Urine Glucose (UA) Norm (Normal) Urine Ketones Negative (Negative) Urine Blood 3+ H (Negative) Urine Nitrate Negative (Negative) Urine Bilirubin Neg (Negative) Urine Urobilinogen Norm (Negative) mg/dL Ur Leukocyte Nadege ase 2+ H (Negative) Urine RBC 25-40 H (0-2) /hpf Urine WBC Too numerous to c nt H (0-5) /hpf Ur Squamous Epith Cells Not Reportable Amorphous Sediment Not Reportable Urine Bacteria 1+ H (NONE) /hpf Urine Yeast 3+ H /hpf Imaging Data^: CXR: Attestation: I personally reviewed and interpreted this imaging study as follows: Radiologist's impression: [address] [address] XRay Report Signed Patient: Moy Fernandez AUnit #: [id number] : 9Acct#:[id number] Age/Sex: 69 / MADM Date: 02/14/20 Loc: ERRoom/Bed: Attending Dr: Ordering Provider/Ordering MD: eTlma Gardner MD, [facility] [place] Date of Service: 02/14/20 Procedure(s): XR chest 1V portable [id number] Accession Number(s): [id number] Report Number: [id number] PROCEDURE INFORMATION: Exam: XR Chest, 1 View Exam date and time: 02/14/2020 2:57 PM Age: 69 years old Clinical indication: Shortness of breath; Additional info: AMS TECHNIQUE: Imaging protocol: XR of the chest Views: 1 view. COMPARISON: CR XR chest 1V portable [id number] 10/02/2019 3:59 AM FINDINGS: Tubes, catheters and devices: Previously noted right jugular central line has been removed. Lungs: Low lung volumes due to suboptimal inspiration. This causes crowding of the lung markings. Bibasilar atelectasis versus infiltrates, left worse than right. Pleural space: No pleural effusion. No pneumothorax. Heart/Mediastinum: No cardiomegaly. Bones/joints: Median sternotomy noted. XR/XR chest 1V portable [id number] IMPRESSION: 1. Low lung volumes due to suboptimal inspiration. This causes crowding of the lung markings. 2. Bibasilar atelectasis versus infiltrates, left worse than right. Left lower lobe disease appears worse when compared to 10/02/2019. Dictated By:Kb Rodriguez MD Signed By:Kb Rodriguez MDSigned Date/Time:02/14/201617 DD/ 17 CT Head: Attestation: I personally reviewed and interpreted this imaging study as follows: Radiologist's impression: [address] [address] [address] Scan Report Signed Patient: Moy Fernandez #: [id number] : 9Acct#:[id number] Age/Sex: 69 / MADM Date: 02/14/20 Loc: ERRoom/Bed: Attending Dr: Ordering Provider/Ordering MD: Telma Garnder MD, [facility] Date of Service: 02/14/20 Procedure(s): CT head wo con* [id number] Accession Number(s): [id number] Report Number: [id number] PROCEDURE INFORMATION: Exam: CT Head Without Contrast Exam date and time: 02/14/2020 5:55 PM Age: 69 years old Clinical indication: Condition or disease; Convulsions or seizures; Unspecified; Patient HX: Multiple witnessed seizures; Additional info: Recurrent seizures TECHNIQUE: Imaging protocol: Computed tomography of the head without contrast. Radiation optimization: All CT scans at this facility use at least one of these dose optimization techniques: automated exposure control; mA and/or kV adjustment per patient size (includes targeted exams where dose is matched to clinical indication); or iterative reconstruction. COMPARISON: CT head wo con* [id number] 09/24/2019 9:46 PM RADIATION DOSE METRICS: Total DLP (mGy-cm): 754.16 FINDINGS: Brain: Moderate parenchymal volume loss noted. There is decreased attenuation of the periventricular white matter, consistent with moderate microangiopathic chronic white matter disease. Old lacunar infarct right basal ganglia. No intracranial hemorrhage noted. No parenchymal edema identified. Cerebral ventricles: The ventricles are proportional to the sulci. No hydrocephalus is noted. Bones/joints: No fracture or other acute osseous abnormality. Paranasal sinuses: The included paranasal sinuses are otherwise clear. Complete opacification of the right maxillary sinus with minimal calcification. There is mild thinning and bowing of the medial wal of the right maxillary sinus. Consider mucocele. Mastoid air cells: The mastoid air cells are clear bilaterally. Soft tissues: The soft tissues appear unremarkable. CT/CT head wo con* [id number] IMPRESSION: 1. Chronic intracranial changes are present. 2. No acute intracranial abnormality is noted. The appearance of the intracranial structures is unchanged from 09/24/2019. 3. Complete opacification of the right maxillary sinus with minimal calcification. There is mild thinning and bowing of the medial wal of the right maxillary sinus. Consider mucocele. A mass or polyp within the right maxillary sinus cannot be excluded. The changes of the medial wall of the sinus are new when compared to 09/24/2019. Radiation Dose CTDIVOL = (mGy): DLP = 754.16 (mGy-cm) Dictated By:Kb Rodriguez MD Signed By:Kb Rodriguez MDSigned Date/Time:02/14/201822 DD/ 20 Discharge Plan Discharge Patient Disposition: Hospice - Home Clinical Impression: Acute metabolic encephalopathy, Seizures, Pneumonia due to 2019 novel coronavirus, Azotemia, CKD (chronic kidney disease) stage 5, GFR less than 15 ml/min Condition: Stable Prescriptions: New morphine 20 mg/5 mL (4 mg/mL) solution 5 mg PO Q3H PRN (Reason: end of life) Qty: 100 RF: 0 lorazepam 2 mg/mL concentrate 1 mg BUCCAL Q4H PRN (Reason: end of life) Qty: 30 RF: 0 Continued levetiracetam 500 mg tablet 500 mg PO BID RF: 0 miconazole nitrate 2 % cream 1 applic TOPICAL BID RF: 0 hydralazine 10 mg tablet 10 mg PO TID Qty: 270 RF: 3 Zofran 4 mg Tablet 4 mg PO Q6H PRN (Reason: Nausea) RF: 0 linezolid 600 mg Tablet 600 mg PO BID RF: 0 Humalog KwikPen Insulin 100 unit/mL insulin pen See Rx Instructions .ROUTE .COMPLEX RF: 0 clonidine HCl 0.1 mg Tablet Extended Release 12 Hr 0.1 mg PO BID RF: 0 Discontinued aspirin [Adult Low Dose Aspirin] 81 mg tablet,delayed release (DR/EC) 81 mg PO DAILY RF: 0 pantoprazole 40 mg tablet,delayed release (DR/EC) 40 mg PO DAILY RF: 0 ferrous sulfate 325 mg (65 mg iron) tablet 325 mg PO BID RF: 0 gentamicin 40 mg/mL solution See Rx Instructions .ROUTE .COMPLEX RF: 0 cholecalciferol (vitamin D3) 1,250 mcg (50,000 unit) Capsule 50,000 unit PO DAILY RF: 0 hydrocodone-acetaminophen 5-325 mg Tablet 1 tab PO Q4H PRN (Reason: Pain) RF: 0 No Action acetaminophen 325 mg tablet 650 mg PO Q6H PRN (Reason: Pain) RF: 0 Discharge Orders: Discharge Order (Routine); Ordered 02/14/20 Ordered By: Telma Gardner Referrals: Sajan Jack Jr, MD [Primary Care Provider] - 1-3 days Patient Instructions: Hospice Care, Epilepsy (ED) Activity Restrictions/Additional Instructions: The hospice nurse will contact you tomorrow to do your hospice admission. Meanwhile start the end-of-life medications that you have been prescribed. Follow-up with your primary care provider within 2 days. Coding Level of Care Code ED Pattern Grader for Chg Fwd Exam Detailed
[2020-02-14 15:05] LABS: Basophils % 0.1 %; Eosinophils # 0.1 10^3/uL (0.0-0.8); Eosinophils % 0.9 %; Hematocrit 27.1 % (42.0-52.0); Lymphocytes # 0.4 10^3/uL (0.8-4.8); Lymphocytes % 3.9 %; Mean Corpuscular HGB Conc 29.5 g/dL (30.0-36.0); Mean Corpuscular Hemoglobin 27.5 pg (28.0-34.0); Mean Corpuscular Volume 93.1 fL (80-94); Mean Platelet Volume 9.7 fL (7.4-10.4); Monocytes # 0.5 10^3/uL (0.2-0.9); Neutrophils # 8.91 10^3/uL (1.8-7.7); Nucleated Red Blood Cells % 0 %; Platelet Count 202 10^3/cmm (130-400); Red Blood Count 2.91 10^6/uL (4.1-5.3); Red Cell Distribution Width 15.9 % (12.1-15.1)
[2020-02-14 15:22] LABS: INR 3.71 (0.8-1.2)
[2020-02-14 15:48] LABS: Alanine Aminotransferase < 5 U/L (0-41); Albumin Level 2.6 g/dL (3.5-5.2); Alkaline Phosphatase 76 IU/L (40-130); Anion Gap 21.8 (5-19); Aspartate Amino Transferase 13 U/L (0-40); Calcium 8.3 mg/dL (8.5-10.5); Carbon Dioxide 16 mmol/L (22-29); Chloride 108 mmol/L (98-107); Globulin 3.9 g/dL (1.3-4.6); Glucose 78 mg/dL (65-115); Osmolality Calculated 322 mOsm/kg (285-295); Potassium 4.8 mmol/L (3.5-5.1); Sodium 141 mmol/L (136-145); Total Bilirubin 0.2 mg/dL (0.15-1.2); Total Protein 6.5 g/dL (6.6-8.7)
[2020-02-14 15:58] LABS: Lactic Sepsis W/Reflex 1.3 mmol/L (0.5-2.2)
[2020-02-14 16:00] LABS: Blood Urine 3+ (Negative); Glucose Urine UA Norm (Normal); Ketones Urine Negative (Negative); Protein Urine 1+ (Negative); Specific Gravity, Urine 1.015 (1.005-1.030); Urine Appearance Hazy (CLEAR); Urine Color Yellow (Yellow); pH Urine 5 (5-7)
[2020-02-14 16:01] LABS: Add Urine Microscopic? YES; Bacteria Urine 1+ /hpf; Bilirubin Urine Neg (Negative); Leukocyte Esterase Urine 2+ (Negative); Nitrate Urine Negative (Negative); RBC Urine 25-40 /hpf (0-2); Urobilinogen Urine Norm (Negative); WBC Urine TOO NUMEROUS TO CNT /hpf (0-5)
[2020-02-14 16:02] LABS: Blood Urea Nitrogen 101 mg/dL (8-23)
[2020-02-14 16:16] LABS: Add Urine Culture? Yes
[2020-02-14] MEDS: sodium chloride 0.9% 1,000 ML 999 ML IV ×2 (16:44→18:57)
[2020-02-14] MEDS: LORazepam 2 mg/mL INJ 1 mL (16:44)
[2020-02-14] MEDS: piperacillin-tazobactam 3.375 GM in sodium chloride 0.9% (plus) 50 ML IV (16:45)
--- NOTE | 2020-02-14 17:41 | CTR_ITS ---
PROCEDURE INFORMATION: Exam: CT Head Without Contrast Exam date and time: 02/14/2020 5:55 PM Age: 69 years old Clinical indication: Condition or disease; Convulsions or seizures; Unspecified; Patient HX: Multiple witnessed seizures; Additional info: Recurrent seizures TECHNIQUE: Imaging protocol: Computed tomography of the head without contrast. Radiation optimization: All CT scans at this facility use at least one of these dose optimization techniques: automated exposure control; mA and/or kV adjustment per patient size (includes targeted exams where dose is matched to clinical indication); or iterative reconstruction. COMPARISON: CT head wo con* [id number] 09/24/2019 9:46 PM RADIATION DOSE METRICS: Total DLP (mGy-cm): 754.16 FINDINGS: Brain: Moderate parenchymal volume loss noted. There is decreased attenuation of the periventricular white matter, consistent with moderate microangiopathic chronic white matter disease. Old lacunar infarct right basal ganglia. No intracranial hemorrhage noted. No parenchymal edema identified. Cerebral ventricles: The ventricles are proportional to the sulci. No hydrocephalus is noted. Bones/joints: No fracture or other acute osseous abnormality. Paranasal sinuses: The included paranasal sinuses are otherwise clear. Complete opacification of the right maxillary sinus with minimal calcification. There is mild thinning and bowing of the medial wal of the right maxillary sinus. Consider mucocele. Mastoid air cells: The mastoid air cells are clear bilaterally. Soft tissues: The soft tissues appear unremarkable. CT/CT head wo con* [id number] IMPRESSION: 1. Chronic intracranial changes are present. 2. No acute intracranial abnormality is noted. The appearance of the intracranial structures is unchanged from 09/24/2019. 3. Complete opacification of the right maxillary sinus with minimal calcification. There is mild thinning and bowing of the medial wal of the right maxillary sinus. Consider mucocele. A mass or polyp within the right maxillary sinus cannot be excluded. The changes of the medial wall of the sinus are new when compared to 09/24/2019. Radiation Dose CTDIVOL = (mGy): DLP = 754.16 (mGy-cm)
[2020-02-14] MEDS: PHENobarbital 130 mg/mL SDV 1 mL 100 MG IV (20:41)
--- NOTE | 2020-02-15 00:10 | PC.NURSE ---
Hospice called to see if we could set up a referral. Talked to [facility] and they will do comfort care due to the restrictions and not allowing outside people into facility
== END 2020-02-15 00:18 | disposition hospice, home (50) ==
PROVIDERS: Emergency Provider Family Medicine; PCP Family Medicine
DX: R56.9 Unspecified convulsions (principal); U07.1 COVID-19; J12.89 Other viral pneumonia; G93.41 Metabolic encephalopathy; R79.89 Other specified abnormal findings of blood chemistry; I13.2 Hypertensive heart and chronic kidney disease with heart failure and with stage 5 chronic kidney disease, or end stage renal disease; E11.22 Type 2 diabetes mellitus with diabetic chronic kidney disease; N18.5 Chronic kidney disease, stage 5; I50.40 Unspecified combined systolic (congestive) and diastolic (congestive) heart failure; E11.42 Type 2 diabetes mellitus with diabetic polyneuropathy; Z95.1 Presence of aortocoronary bypass graft; Z89.511 Acquired absence of right leg below knee; Z87.891 Personal history of nicotine dependence; Z79.82 Long term (current) use of aspirin; Z79.4 Long term (current) use of insulin; Z79.899 Other long term (current) drug therapy
CPT/HCPCS: 12345; 70450; 71045; 80053; 81001; 83605; 84145; 85025; 85610; 87040; 87086; 87106; 96361; 96365; 96375; 99283; 99284; J1953; J2060; J2543; J7030

== ENCOUNTER 2020-02-20 14:17 | Outpatient (CLI) | payer MEDICARE, SELFPAY | END 2020-02-20 14:18 | disposition home or self-care (01) | LOC: WOUND 14:23 | PROVIDERS: PCP Family Medicine; Visit Provider Nurse Practitioner Family | DX: Z09 Encounter for follow-up examination after completed treatment for conditions other than malignant neoplasm (principal); Z89.511 Acquired absence of right leg below knee | CPT/HCPCS: 99212 ==

== ENCOUNTER 2020-02-27 14:29 | Outpatient (CLI) | payer MEDICARE, OTHER, SELFPAY | END 2020-02-27 14:30 | disposition home or self-care (01) | LOC: WOUND 14:30 | PROVIDERS: PCP Family Medicine; Visit Provider Surgery | DX: E11.622 Type 2 diabetes mellitus with other skin ulcer (principal); L97.812 Non-pressure chronic ulcer of other part of right lower leg with fat layer exposed; Z89.511 Acquired absence of right leg below knee | CPT/HCPCS: 11042; 87070; 87077; 87176; 87186; 87205 ==

== ENCOUNTER 2020-03-05 15:21 | Outpatient (CLI) | payer MEDICARE, SELFPAY | END 2020-03-05 15:22 | disposition home or self-care (01) | LOC: WOUND 15:22 | PROVIDERS: PCP Family Medicine; Visit Provider Surgery | DX: E11.622 Type 2 diabetes mellitus with other skin ulcer (principal); Z89.511 Acquired absence of right leg below knee; L97.812 Non-pressure chronic ulcer of other part of right lower leg with fat layer exposed | CPT/HCPCS: 11042 ==

== ENCOUNTER 2020-03-10 10:42 | Outpatient (CLI) | payer MEDICARE, SELFPAY | END 2020-03-10 10:43 | disposition home or self-care (01) | LOC: WOUND 10:49 | PROVIDERS: PCP Family Medicine; Visit Provider Nurse Practitioner Family | DX: E11.622 Type 2 diabetes mellitus with other skin ulcer (principal); L97.812 Non-pressure chronic ulcer of other part of right lower leg with fat layer exposed; Z89.511 Acquired absence of right leg below knee | CPT/HCPCS: 11042; 11045 ==

== ENCOUNTER 2020-03-26 13:52 | Outpatient (CLI) | payer MEDICARE, SELFPAY | END 2020-03-26 13:53 | disposition home or self-care (01) | LOC: WOUND 13:53 | PROVIDERS: PCP Family Medicine; Visit Provider Surgery | DX: E11.622 Type 2 diabetes mellitus with other skin ulcer (principal); L97.812 Non-pressure chronic ulcer of other part of right lower leg with fat layer exposed; Z89.511 Acquired absence of right leg below knee | CPT/HCPCS: 11043; 11046 ==

== ENCOUNTER 2020-04-02 14:14 | Outpatient (RCR) | payer MEDICARE, MEDICAID, SELFPAY | END 2020-04-15 23:59 | disposition home or self-care (01) | LOC: WOUND 14:14 | PROVIDERS: PCP Family Medicine; Visit Provider Surgery | DX: E11.622 Type 2 diabetes mellitus with other skin ulcer (principal); L97.812 Non-pressure chronic ulcer of other part of right lower leg with fat layer exposed; Z89.511 Acquired absence of right leg below knee | CPT/HCPCS: 11043; 11046 ==

== ENCOUNTER 2020-04-23 14:57 | Outpatient (CLI) | payer MEDICARE, MEDICAID, SELFPAY | END 2020-04-23 14:58 | disposition home or self-care (01) | LOC: WOUND 14:58 | PROVIDERS: PCP Family Medicine; Visit Provider Surgery | DX: E11.622 Type 2 diabetes mellitus with other skin ulcer (principal); L97.812 Non-pressure chronic ulcer of other part of right lower leg with fat layer exposed; Z89.511 Acquired absence of right leg below knee | CPT/HCPCS: 11042; 11045 ==

== ENCOUNTER → 2020-04-26 14:37 | Outpatient (BNVA) | payer MEDICARE, SELFPAY | PROVIDERS: PCP Family Medicine; Visit Provider Specialist | DX: G40.909 Epilepsy, unspecified, not intractable, without status epilepticus (principal); Z89.511 Acquired absence of right leg below knee; Z86.16 Personal history of COVID-19; Z87.891 Personal history of nicotine dependence | CPT/HCPCS: 99215 ==

== ENCOUNTER 2020-04-30 14:40 | Outpatient (CLI) | payer MEDICARE, MEDICAID, SELFPAY | END 2020-04-30 14:41 | disposition home or self-care (01) | LOC: WOUND 14:41 | PROVIDERS: PCP Family Medicine; Visit Provider Surgery | DX: E11.622 Type 2 diabetes mellitus with other skin ulcer (principal); L97.812 Non-pressure chronic ulcer of other part of right lower leg with fat layer exposed; Z89.511 Acquired absence of right leg below knee | CPT/HCPCS: 11042; 11045 ==

== ENCOUNTER 2020-05-14 13:44 | Outpatient (CLI) | payer MEDICARE, MEDICAID, SELFPAY | END 2020-05-14 13:45 | disposition home or self-care (01) | LOC: WOUND 13:45 | PROVIDERS: PCP Family Medicine; Visit Provider Surgery | DX: E11.622 Type 2 diabetes mellitus with other skin ulcer (principal); L97.812 Non-pressure chronic ulcer of other part of right lower leg with fat layer exposed; Z89.511 Acquired absence of right leg below knee | CPT/HCPCS: 11042; 11045 ==

== ENCOUNTER 2020-05-21 13:26 | Outpatient (CLI) | payer MEDICARE, MEDICAID, SELFPAY | END 2020-05-21 13:27 | disposition home or self-care (01) | LOC: WOUND 13:27 | PROVIDERS: PCP Family Medicine; Visit Provider Surgery | DX: E11.622 Type 2 diabetes mellitus with other skin ulcer (principal); L97.812 Non-pressure chronic ulcer of other part of right lower leg with fat layer exposed; Z89.511 Acquired absence of right leg below knee | CPT/HCPCS: 11042; 11045; L8440 ==

== ENCOUNTER 2020-05-23 09:22 | Emergency (ER) | payer MEDICARE, MEDICAID, SELFPAY ==
[2020-05-23 09:23] VITALS: BP 99/52; PULSE 78; RESP 18; O2SAT 97
[2020-05-23 09:31] VITALS: BP 123/50; PULSE 81; RESP 17; O2SAT 95
--- NOTE | 2020-05-23 09:35 | XRR_ITS ---
PROCEDURE INFORMATION: Exam: XR Chest, 1 View Exam date and time: 05/23/2020 9:44 AM Age: 69 years old Clinical indication: Other: AMS; Additional info: Altered mental status TECHNIQUE: Imaging protocol: XR of the chest Views: 1 view. COMPARISON: CR XR chest 1V portable [id number] 02/14/2020 3:58 PM FINDINGS: Tubes, catheters and devices: A neurostimulator projects over the thoracic spine. Lungs: Low lung volumes. Persistent bilateral airspace opacities, left greater than right. No large pleural effusion or pneumothorax. Pleural spaces: See Lungs finding. Heart/Mediastinum: Stable cardiomediastinal silhouette. Bones/joints: No acute osseous injury identified. Median sternotomy changes seen. Degenerative changes of the spine seen. XR/XR chest 1V portable [id number] IMPRESSION: Persistent bilateral airspace opacities, left greater than right.
--- NOTE | 2020-05-23 09:43 | W.ED.AMS ---
HPI - Altered Mental Status General: Chief Complaint: Altered Mental Status Stated Complaint: AMS Time Seen by Provider: 05/23/20 09:22 History of Present Illness: HPI narrative: The patient is a 69-year-old male with a significant amount of medical problems including right BKA, type 2 diabetes, coronary artery disease, chronic kidney disease, CHF. He comes [facility] the ER from [facility] where he is on comfort care only. They say this morning he is altered. EMS reports that he was talking to them and making sense. On my exam he is somnolent and does not speak to me. He arouses to vocal stimuli but quickly falls asleep. Answers no questions. His right stump is beefy and erythematous. MD complaint: altered mental status Severity: moderate Consistency of symptoms: Waxing and Waning Review of Systems General: Reports: ROS unobtainable due to medical condition PFSH ED PFSH: Medical History (Updated 05/23/20 @ 13:55 by Ronal Alonso MD) Atherosclerotic heart disease of [place] coronary artery without angina pectoris CHF (congestive heart failure) Chronic ulcer of ankle CKD (chronic kidney disease), stage III -known hx of CKD stage 3; baseline Cr is around 3-3.5 Combined systolic and diastolic congestive heart failure -has known hx of chronic combined systolic and diastolic CHF; no acute exacerbation currently -Echo (05/2018): EF=35% -stress testing in 05/2018 showing scarring with mild urmila-infarct ischemia in RCA territory Diabetes mellitus DNR (do not resuscitate) Elevated troponin level Hypertension Multilevel degenerative disc disease -has known hx of multilevel DJD, s/p spinal stimulator -hold opiates, sedating meds due to altered mental status -fall precautions -imaging reviewed, no acute findings Peripheral neuropathy Polyneuropathy in other diseases classified elsewhere Post-ictal state Rhabdomyolysis Seizure disorder Medical management Spinal cord stimulator status Spinal stenosis Type 2 diabetes mellitus Chronic medical management Surgical History S/P CABG x 3 S/P insertion of spinal cord stimulator Status post below knee amputation of right lower extremity Status post below-knee amputation Wound care per orders Family History Other Hyperlipidemia Hypertension Denies family history of Psychiatric illness Lung disease Social History Smoking and tobacco status: former smoker Alcohol intake: former Lives independently: No (Brother is his power of mixing supervisor, recently has had to be involved in more decisions) Housing: Assisted Current occupation: Living alone, he was discharged to home with home hospice Physical Exam Const: COMMON NORMALS: no acute distress, average body habitus, no limitations, healthy appearing, alert and well nourished GENERAL APPEARANCE: cooperative, comfortable, well kempt and well developed ORIENTATION/CONSCIOUSNESS: Yes awake HENMT: COMMON NORMALS: normocephalic, external ears normal and Normal external nose present HEAD & SCALP: normal to inspection and normocephalic NOSE: Normal external nose present EXTERNAL EAR: Yes external ears normal MOUTH: Normal oral and palatal mucosa present THROAT: posterior oropharynx normal Eye: COMMON NORMALS: Equal, round and reactive pupils present and EOMs intact bilaterally GENERAL EYE: appearance normal, both eyes and all related structures PUPIL: Yes Equal, round and reactive pupils present Neck/C-Spine: COMMON NORMALS: full ROM, no lymphadenopathy, no meningeal signs and no JVD GENERAL: Yes normal visual inspection Lymph: LYMPHATIC: no lymphadenopathy noted Chest: COMMONS NORMALS: normal inspection of the chest and normal palpation of entire chest wall Resp: COMMON NORMALS: normal respiratory effort, No retractions, No use of accessory muscles, clear to auscultation bilaterally and percussion normal EFFORT & INSPECTION: Yes able to speak in complete sentences AUSCULTATION: clear to auscultation bilaterally PERCUSSION: percussion normal Cardio: COMMON NORMALS: no JVD, regular rate, regular rhythm, S1 normal heart sound present, S2 normal heart sound present and Peripheral pulses 2+ throughout RATE: regular rate RHYTHM: regular rhythm HEART SOUNDS: S1 normal heart sound present and S2 normal heart sound present PERIPHERAL PULSES: Peripheral pulses 2+ throughout GI: COMMON NORMALS: Normal to inspection, nondistended, normoactive bowel sounds present, Soft to palpation, non-tender and no masses INSPECTION: Yes normal to inspection PALPATION: Yes Soft to palpation : COMMON NORMALS: Yes no CVA tenderness BLADDER/KIDNEY EXAM: Yes no CVA tenderness Back/Pelvis: COMMON NORMALS: no CVA tenderness, thoracic and lumbar spine normal to inspection, no thoracic nor lumbar tenderness and thoraco-lumbar ROM normal Extremity: COMMON NORMALS: normal to inspection, full ROM, capillary refill normal, no joint enlargement and no pedal edema GENERAL: Yes normal exam except as noted Neuro: COMMON NORMALS: moves all extremities, no focal motor deficits and no sensory deficits noted SENSORIUM/ORIENTATION: Yes alert MENINGEAL SIGNS: Yes no meningeal signs OTHER: Unclear what his baseline mental function is but here he is responding to verbal stimuli though he is very somnolent and does not answer questions. He will make eye contact and fall back asleep Psych: COMMON NORMALS: mental status grossly normal, Normal thought process present, cooperative, normal affect and speech normal APPEARANCE: Yes well kempt ATTITUDE: Yes calm SPEECH: Yes normal speech THOUGHT PROCESS: Normal thought process present Skin: COMMON NORMALS: no rashes or lesions noted NARRATIVE SKIN EXAM: Right lower extremity BKA with erythema and scabbing to the stump. Likely a cellulitis. No significant discharge or abscess felt. GENERAL SKIN EXAM: no rashes or lesions noted Course Vital Signs: Vital signs: Vital Signs Pulse Rate 78 05/23/20 15:15 Respiratory Rate 15 05/23/20 15:15 Blood Pressure 136/69 05/23/20 15:15 Pulse Oximetry 98 05/23/20 15:15 MDM - Altered Mental Status MDM Narrative: Medical decision making narrative: The patient came to the ER for altered mental status and was alert and making eye contact and moving all extremities but not answering questions appropriately to me. He answered questions appropriately to the nurse multiple times. He was found to have a urinary tract infection likely from wearing a diaper and his right stump has a small wound on it that looks like it has a mild cellulitis surrounding. This could easily explain an altered mental status. Head CT normal. Also he had mild hyperkalemia for which she received a dose of Kayexalate. He also has a variety of other labs which are abnormal though they appear to be slightly better than his chronic levels. He has chronic kidney disease likely is the root of all of these abnormalities. His creatinine today was 2.9 with BUN of 28. This is better than his trend. For example his troponin was elevated to 395 with a delta troponin after 2 hours of 393. This is stable and does not likely indicate an acute myocardial infarction but rather chronic disease. Discussed with the patient's power of mixing supervisor who is his brother Mr. Moeller a couple times over the phone and offered admission. He says it is not consistent with the patient's wishes as he is a DNR and on comfort care only and does not want him to be in the hospital. Discharge the patient back to the retirement with a Keflex prescription and recommended the provider see him there in a couple days. ER with worsening symptoms Lab Data: Labs: Lab Results 05/23/20 05/23/20 05/23/20 Range/Units 09:30 09:30 09:30 WBC 6.0 (4.0-10.0) 10^3/ uL RBC 3.27 L (4.1-5.3) 10^6/u L Hgb 9.4 L (11.7-16.6) g/dL Hct 31.1 L (42.0-52.0) % MCV 95.1 H (80-94) fL MCH 28.7 (28.0-34.0) pg MCHC 30.2 (30.0-36.0) g/dL RDW 13.7 (12.1-15.1) % Plt Count 197 (130-400) 10^3/c mm MPV 9.3 (7.4-10.4) fL Neut % (Auto) 84.8 % Lymph % (Auto) 6.6 % [facility] [place] [facility] % (Auto) 5.1 % Eos % (Auto) 2.0 % Baso % (Auto) 1.2 % Neut # (Auto) 5.11 (1.8-7.7) 10^3/u L Lymph # (Auto) 0.4 L (0.8-4.8) 10^3/u L [facility] [place] [facility] # (Auto) 0.3 (0.2-0.9) 10^3/u L Eos # (Auto) 0.1 (0.0-0.8) 10^3/u L Baso # (Auto) 0.1 (0.0-0.1) 10^3/u L Nucleated RBC % (a uto) 0 % Nucleated RBCs # 0.0 /100WBC PT 15.20 H (12.1-14.9) SECO NDS INR 1.16 (0.8-1.2) Sodium 137 (136-145) mmol/L Potassium 5.5 H (3.5-5.1) mmol/L Chloride 101 (98-107) mmol/L Carbon Dioxide 27 (22-29) mmol/L Anion Gap 14.5 (5-19) BUN 28 H (8-23) mg/dL Creatinine 2.9 H (0.7-1.2) mg/dL GFR Calculation Not Reportable Glucose 107 (65-115) mg/dL Calculated Osmolal ity 290 (285-295) mOsm/k g Lactate (0.5-2.2) mmol/L Calcium 8.9 (8.5-10.5) mg/dL Total Bilirubin 0.2 (0.15-1.2) mg/dL AST 9 (0-40) U/L ALT 6 (0-41) U/L Alkaline Phosphata se 62 (40-130) IU/L Creatine Kinase 40 (39-308) U/L Troponin T Baselin e (0-15) ng/L Troponin T 120 Min kiana (0-15) ng/L Delta Troponin T (0-10) ABS# NT-Pro-B Natriuret Pep 79445 H (0-125) pg/mL Total Protein 6.6 (6.6-8.7) g/dL Albumin 2.9 L (3.5-5.2) g/dL Globulin 3.7 (1.3-4.6) g/dL Urine Color (Yellow) Urine Appearance (CLEAR) Urine pH (5-7) Ur Specific Gravit y (1.005-1.030) Urine Protein (Negative) Urine Glucose (UA) (Normal) Urine Ketones (Negative) Urine Blood (Negative) Urine Nitrate (Negative) Urine Bilirubin (Negative) Prot Sulfosalicyli c Acd (Negative) Urine Urobilinogen (Negative) mg/dL Ur Leukocyte Nadege ase (Negative) Urine RBC (0-2) /hpf Urine WBC (0-5) /hpf Ur Squamous Epith Cells (0-5) /hpf Amorphous Sediment Urine Bacteria (NONE) /hpf Urine Mucus /hpf 05/23/20 05/23/20 05/23/20 Range/Units 09:30 10:40 11:33 WBC (4.0-10.0) 10^3/ uL RBC (4.1-5.3) 10^6/u L Hgb (11.7-16.6) g/dL Hct (42.0-52.0) % MCV (80-94) fL MCH (28.0-34.0) pg MCHC (30.0-36.0) g/dL RDW (12.1-15.1) % Plt Count (130-400) 10^3/c mm MPV (7.4-10.4) fL Neut % (Auto) % Lymph % (Auto) % [facility] [place] [facility] % (Auto) % Eos % (Auto) % Baso % (Auto) % Neut # (Auto) (1.8-7.7) 10^3/u L Lymph # (Auto) (0.8-4.8) 10^3/u L [facility] # (Auto) (0.2-0.9) 10^3/u L Eos # (Auto) (0.0-0.8) 10^3/u L Baso # (Auto) (0.0-0.1) 10^3/u L Nucleated RBC % (a uto) % Nucleated RBCs # /100WBC PT (12.1-14.9) SECO NDS INR (0.8-1.2) Sodium (136-145) mmol/L Potassium (3.5-5.1) mmol/L Chloride (98-107) mmol/L Carbon Dioxide (22-29) mmol/L Anion Gap (5-19) BUN (8-23) mg/dL Creatinine (0.7-1.2) mg/dL GFR Calculation Glucose (65-115) mg/dL Calculated Osmolal ity (285-295) mOsm/k g Lactate 1.0 (0.5-2.2) mmol/L Calcium (8.5-10.5) mg/dL Total Bilirubin (0.15-1.2) mg/dL AST (0-40) U/L ALT (0-41) U/L Alkaline Phosphata se (40-130) IU/L Creatine Kinase (39-308) U/L Troponin T Baselin e 395 H* (0-15) ng/L Troponin T 120 Min kiana (0-15) ng/L Delta Troponin T (0-10) ABS# NT-Pro-B Natriuret Pep (0-125) pg/mL Total Protein (6.6-8.7) g/dL Albumin (3.5-5.2) g/dL Globulin (1.3-4.6) g/dL Urine Color Straw (Yellow) Urine Appearance Clear (CLEAR) Urine pH 8 H (5-7) Ur Specific Gravit y 1.010 (1.005-1.030) Urine Protein 1+ H (Negative) Urine Glucose (UA) Norm (Normal) Urine Ketones Negative (Negative) Urine Blood Neg (Negative) Urine Nitrate Negative (Negative) Urine Bilirubin Neg (Negative) Prot Sulfosalicyli c Acd Positive (Negative) Urine Urobilinogen Norm (Negative) mg/dL Ur Leukocyte Nadege ase 1+ H (Negative) Urine RBC None (0-2) /hpf Urine WBC 40-55 H (0-5) /hpf Ur Squamous Epith Cells 5-10 H (0-5) /hpf Amorphous Sediment Not Reportable Urine Bacteria 1+ H (NONE) /hpf Urine Mucus 1+ /hpf 05/23/20 Range/Units 12:12 WBC (4.0-10.0) 10^3/ uL RBC (4.1-5.3) 10^6/u L Hgb (11.7-16.6) g/dL Hct (42.0-52.0) % MCV (80-94) fL MCH (28.0-34.0) pg MCHC (30.0-36.0) g/dL RDW (12.1-15.1) % Plt Count (130-400) 10^3/c mm MPV (7.4-10.4) fL Neut % (Auto) % Lymph % (Auto) % [facility] % (Auto) % Eos % (Auto) % Baso % (Auto) % Neut # (Auto) (1.8-7.7) 10^3/u L Lymph # (Auto) (0.8-4.8) 10^3/u L [facility] # (Auto) (0.2-0.9) 10^3/u L Eos # (Auto) (0.0-0.8) 10^3/u L Baso # (Auto) (0.0-0.1) 10^3/u L Nucleated RBC % (a uto) % Nucleated RBCs # /100WBC PT (12.1-14.9) SECO NDS INR (0.8-1.2) Sodium (136-145) mmol/L Potassium (3.5-5.1) mmol/L Chloride (98-107) mmol/L Carbon Dioxide (22-29) mmol/L Anion Gap (5-19) BUN (8-23) mg/dL Creatinine (0.7-1.2) mg/dL GFR Calculation Glucose (65-115) mg/dL Calculated Osmolal ity (285-295) mOsm/k g Lactate (0.5-2.2) mmol/L Calcium (8.5-10.5) mg/dL Total Bilirubin (0.15-1.2) mg/dL AST (0-40) U/L ALT (0-41) U/L Alkaline Phosphata se (40-130) IU/L Creatine Kinase (39-308) U/L Troponin T Baselin e (0-15) ng/L Troponin T 120 Min kiana 393.4 H (0-15) ng/L Delta Troponin T -1.6 L (0-10) ABS# NT-Pro-B Natriuret Pep (0-125) pg/mL Total Protein (6.6-8.7) g/dL Albumin (3.5-5.2) g/dL Globulin (1.3-4.6) g/dL Urine Color (Yellow) Urine Appearance (CLEAR) Urine pH (5-7) Ur Specific Gravit y (1.005-1.030) Urine Protein (Negative) Urine Glucose (UA) (Normal) Urine Ketones (Negative) Urine Blood (Negative) Urine Nitrate (Negative) Urine Bilirubin (Negative) Prot Sulfosalicyli c Acd (Negative) Urine Urobilinogen (Negative) mg/dL Ur Leukocyte Nadege ase (Negative) Urine RBC (0-2) /hpf Urine WBC (0-5) /hpf Ur Squamous Epith Cells (0-5) /hpf Amorphous Sediment Urine Bacteria (NONE) /hpf Urine Mucus /hpf Discharge Plan Discharge Patient Disposition: [facility] Clinical Impression: Cellulitis, Acute hyperkalemia, Chronic kidney disease, UTI (urinary tract infection) Condition: Stable Prescriptions: New Keflex 250 mg capsule 250 mg PO BID 10 Days Qty: 20 RF: 0 No Action atropine 1 % drops 1 drp ophthalmic (eye) BID RF: 0 Zofran 4 mg Tablet 4 mg PO Q6H PRN (Reason: Nausea) RF: 0 acetaminophen 325 mg tablet 650 mg PO Q6H PRN (Reason: Pain) RF: 0 morphine 20 mg/5 mL (4 mg/mL) solution 5 mg PO Q3H PRN (Reason: end of life) Qty: 100 RF: 0 lorazepam 2 mg/mL concentrate 1 mg BUCCAL Q4H PRN (Reason: end of life) Qty: 30 RF: 0 Discharge Orders: Discharge ED (Routine); Ordered 05/23/20 Ordered By: Ronal Alonso Referrals: Sajan Jack Jr, MD [Primary Care Provider] - Discharge Diet: Advance as tolerated Discharge Activity: Resume usual activity Patient Instructions: Urinary Tract Infection in Men (ED), Cellulitis (ED), Hyperkalemia (ED) Activity Restrictions/Additional Instructions: You have come to the ER for altered mental status. This is most likely because of an infection in your right stump and urinary tract infection please take the Keflex as directed and follow-up with your provider at the retirement in a couple days to recheck your blood work, potassium, kidney function, troponin level, and make sure your urine is clearing up. Return to the ER with worsening symptoms. Coding Level of Care Code ED Community Health Nursing Director for Brandy Fwd Exam Comprehensive
[2020-05-23 09:48] LABS: Basophils # 0.1 10^3/uL (0.0-0.1); Basophils % 1.2 %; Eosinophils # 0.1 10^3/uL (0.0-0.8); Hematocrit 31.1 % (42.0-52.0); Hemoglobin 9.4 g/dL (11.7-16.6); Lymphocytes # 0.4 10^3/uL (0.8-4.8); Lymphocytes % 6.6 %; Mean Corpuscular HGB Conc 30.2 g/dL (30.0-36.0); Mean Corpuscular Hemoglobin 28.7 pg (28.0-34.0); Mean Corpuscular Volume 95.1 fL (80-94); Mean Platelet Volume 9.3 fL (7.4-10.4); Monocytes # 0.3 10^3/uL (0.2-0.9); Monocytes % 5.1 %; Neutrophils # 5.11 10^3/uL (1.8-7.7); Neutrophils % 84.8 %; Nucleated Red Blood Cells % 0 %; Platelet Count 197 10^3/cmm (130-400); Red Blood Count 3.27 10^6/uL (4.1-5.3); Red Cell Distribution Width 13.7 % (12.1-15.1)
[2020-05-23] MEDS: piperacillin-tazobactam 3.375 GM in sodium chloride 0.9% (plus) 50 ML IV (09:56)
[2020-05-23] MEDS: sodium chloride 0.9% 500 ML IV (09:56)
[2020-05-23 10:17] LABS: Alanine Aminotransferase 6 U/L (0-41); Albumin Level 2.9 g/dL (3.5-5.2); Alkaline Phosphatase 62 IU/L (40-130); Anion Gap 14.5 (5-19); Aspartate Amino Transferase 9 U/L (0-40); Blood Urea Nitrogen 28 mg/dL (8-23); Calcium 8.9 mg/dL (8.5-10.5); Carbon Dioxide 27 mmol/L (22-29); Chloride 101 mmol/L (98-107); Creatine Phosphokinase 40 U/L (39-308); Globulin 3.7 g/dL (1.3-4.6); Glucose 107 mg/dL (65-115); INR 1.16 (0.8-1.2); NT Pro B Type Natriuretic Pept 11187 pg/mL (0-125); Osmolality Calculated 290 mOsm/kg (285-295); Potassium 5.5 mmol/L (3.5-5.1); Sodium 137 mmol/L (136-145); Total Bilirubin 0.2 mg/dL (0.15-1.2); Total Protein 6.6 g/dL (6.6-8.7)
--- NOTE | 2020-05-23 10:22 | ECG_ITS ---
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1950 Requested By: Ronal Alonso Order Number: [id number] Reading MD: KIRK HERRON Measurements Intervals [place] Rate: 89 P: -31 OH: 119 QRS: 0 QRSD: 102 T: 77 QT: 377 QTc: 459 Interpretive Statements SINUS RHYTHM WITH SHORT OH INTERVAL MINIMAL VOLTAGE CRITERIA FOR LVH, CONSIDER NORMAL VARIANT [MEETS CRITERIA IN ONE OF: R(aVL), S(V1), R(V5), R(V5/V6)+S(V1)] INFERIOR MYOCARDIAL INFARCTION , PROBABLY OLD [40+ ms Q WAVE AND/OR ST/T ABNORMALITY IN II/aVF] Compared to ECG 02/03/2020 10:56:10 Short OH interval now present Myocardial infarct finding still present Electronically Signed On 05-23-2020 21:17:08 RESIDENCE LEASING AGENT by KIRK HERRON [id number]
[2020-05-23] MEDS: vancomycin 1,000 MG in sodium chloride 0.9% 250 ML 250 MG IV (10:39)
[2020-05-23 10:55] LABS: Troponin(5th) Baseline 395 ng/L (0-15)
--- NOTE | 2020-05-23 11:03 | CTR_ITS ---
PROCEDURE INFORMATION: Exam: CT Right Lower Extremity Without Contrast Exam date and time: 05/23/2020 1:00 PM Age: 69 years old Clinical indication: Pain; Knee and lower leg; Right; Prior surgery; Surgery type: Lower leg removed; Additional info: Stump erythema. Abscess? Air? TECHNIQUE: Imaging protocol: CT of the Right lower extremity without contrast was performed. Radiation optimization: All CT scans at this facility use at least one of these dose optimization techniques: automated exposure control; mA and/or kV adjustment per patient size (includes targeted exams where dose is matched to clinical indication); or iterative reconstruction. COMPARISON: No relevant prior studies available. RADIATION DOSE METRICS: Total DLP (mGy-cm): 369.34 FINDINGS: Bones/joints: Status post right BKA. There is a small nondisplaced fracture along the anterior distal aspect the tibia. The bones are diffusely osteopenic. No dislocation. There is mild tricompartmental osteoarthrosis of the right knee joint. A small joint effusion is present. Soft tissues: There is diffuse swelling of the soft tissues and thickening of the skin at the surgical site. No discrete fluid collection identified. No evidence of subcutaneous emphysema. Vasculature: Severe diffuse atherosclerotic disease is present. CT/CT lower leg RT wo con* [id number] IMPRESSION: Status post right BKA with diffuse swelling of the soft tissues. No discrete fluid collection or subcutaneous emphysema identified. Radiation Dose CTDIVOL = (mGy): DLP = 369.34 (mGy-cm)
[2020-05-23 11:35] VITALS: BP 133/64; PULSE 84; RESP 16; O2SAT 96
[2020-05-23 11:56] LABS: Add Urine Microscopic? YES; Bilirubin Urine Neg (Negative); Blood Urine Neg (Negative); Glucose Urine UA Norm (Normal); Ketones Urine Negative (Negative); Leukocyte Esterase Urine 1+ (Negative); Nitrate Urine Negative (Negative); Protein Urine 1+ (Negative); Sulfosalicylic Acid Urine Positive (Negative); Urine Appearance Clear (CLEAR); Urine Color Straw (Yellow); Urobilinogen Urine Norm (Negative); pH Urine 8 (5-7)
[2020-05-23 12:05] LABS: Add Urine Culture? Yes; Bacteria Urine 1+ /hpf; Mucus Urine 1+ /hpf; WBC Urine 40-55 /hpf (0-5)
--- NOTE | 2020-05-23 12:19 | CTR_ITS ---
PROCEDURE INFORMATION: Exam: CT Head Without Contrast Exam date and time: 05/23/2020 1:00 PM Age: 69 years old Clinical indication: Altered mental status/memory loss TECHNIQUE: Imaging protocol: Computed tomography of the head without contrast. Radiation optimization: All CT scans at this facility use at least one of these dose optimization techniques: automated exposure control; mA and/or kV adjustment per patient size (includes targeted exams where dose is matched to clinical indication); or iterative reconstruction. COMPARISON: CT head wo con* [id number] 02/14/2020 6:03 PM RADIATION DOSE METRICS: Total DLP (mGy-cm): 502.32 FINDINGS: Brain: No hemorrhage, mass effect or midline shift. No acute, major vascular distribution infarction identified. There is foci of decreased attenuation in the periventricular and subcortical white matter, likely representing chronic small vessel ischemic changes. Mild cerebral volume loss is present. No intra-axial or extra-axial fluid collection seen. Cerebral ventricles: No ventriculomegaly. Bones/joints: Unremarkable. No acute fracture. Paranasal sinuses: There is complete opacification of the right maxillary sinus, without associated hyperostosis, consistent with chronic sinusitis. There is lack of pneumatization of the right frontal sinus. Other paranasal sinuses are well aerated. Mastoid air cells: Visualized mastoid air cells are well aerated. Soft tissues: Unremarkable. CT/CT head wo con* [id number] IMPRESSION: No acute intracranial abnormality. Radiation Dose CTDIVOL = (mGy): DLP = 502.32 (mGy-cm)
[2020-05-23] MEDS: sodium polystyrene sulfonate 15 gm/60 mL Btl PO (12:43)
[2020-05-23] MEDS: cephALEXin 500 mg Capsule PO (12:43)
[2020-05-23 12:44] VITALS: BP 158/72; PULSE 92; RESP 16; O2SAT 98
[2020-05-23 13:03] LABS: Troponin 5 2HR Delta -1.6 ABS# (0-10)
[2020-05-23 13:04] LABS: Troponin 5 2HR 393.4 ng/L (0-15)
[2020-05-23 15:15] VITALS: BP 136/69; PULSE 78; RESP 15; O2SAT 98
--- NOTE | 2020-05-25 07:36 | PC.NURSE ---
lab called with a a critical lab of [facility]
== END 2020-05-23 15:17 | disposition skilled nursing facility (03) ==
PROVIDERS: Emergency Provider Family Medicine; PCP Family Medicine
DX: N39.0 Urinary tract infection, site not specified (principal); E87.5 Hyperkalemia; L03.115 Cellulitis of right lower limb; I13.0 Hypertensive heart and chronic kidney disease with heart failure and stage 1 through stage 4 chronic kidney disease, or unspecified chronic kidney disease; E11.22 Type 2 diabetes mellitus with diabetic chronic kidney disease; N18.30 Chronic kidney disease, stage 3 unspecified; I50.40 Unspecified combined systolic (congestive) and diastolic (congestive) heart failure; I25.10 Atherosclerotic heart disease of native coronary artery without angina pectoris; E11.42 Type 2 diabetes mellitus with diabetic polyneuropathy; Z95.1 Presence of aortocoronary bypass graft; Z89.511 Acquired absence of right leg below knee; Z87.891 Personal history of nicotine dependence
CPT/HCPCS: 12345; 36415; 51701; 70450; 71045; 73700; 80053; 81001; 82550; 83605; 83880; 84484; 85025; 85610; 87077; 87086; 87186; 93005; 96365; 96366; 96367; 99283; 99285; J2543; J3370; J7040; J7050

== ENCOUNTER 2020-06-04 13:16 | Outpatient (CLI) | payer MEDICARE, SELFPAY | END 2020-06-04 13:17 | disposition home or self-care (01) | LOC: WOUND 13:18 | PROVIDERS: PCP Family Medicine; Visit Provider Surgery | DX: E11.622 Type 2 diabetes mellitus with other skin ulcer (principal); L97.812 Non-pressure chronic ulcer of other part of right lower leg with fat layer exposed; Z89.511 Acquired absence of right leg below knee | CPT/HCPCS: 11042; 11045; L8440 ==

== ENCOUNTER → 2020-06-11 08:59 | Day surgery (SDC) | payer MEDICARE, MEDICAID, SELFPAY ==
[2020-06-11] VITALS (9 sets, daily range): BP systolic 129–177; BP diastolic 39–71; PULSE 53–56; RESP 16–18; TEMP 36.1–36.6; O2SAT 96–100; BMI 38.5
[2020-06-11 09:38] LABS: Hematocrit 24.7 % (42.0-52.0); Hemoglobin 7.6 g/dL (11.7-16.6)
[2020-06-11] MEDS: acetaminophen 325 mg Tablet 650 MG PO (10:11)
[2020-06-11] MEDS: diphenhydrAMINE 25 mg Capsule PO (10:12)
[2020-06-11] MEDS: sodium chloride 0.9% (100 ml) 100 ML ×2 (10:50→13:00)
[2020-06-11] MEDS: FUROsemide 10 mg/mL SDV 2mL 20 MG IVP (13:04)
--- NOTE | 2020-06-11 13:59 | PC.NURSE ---
1400 Second unit PRBC's infusing without difficulty. Pt given Lasix 20 mg IVP between units as ordered. Lung sounds remain clear. Report called to SCOTT Willard at [facility]. Transportation to arrive at 1530 for transport back to facility.
--- NOTE | 2020-06-11 15:24 | PC.NURSE ---
1520 Second unit PRBC's infused. VSS. Lung sounds clear. No reaction noted. Report given to YANI Barron. Pt awaiting transport back to alf scheduled at 1530.
== END ==
PROVIDERS: PCP Family Medicine; Visit Provider Nurse Practitioner Family
DX: D64.9 Anemia, unspecified (principal)
CPT/HCPCS: 36430; 85014; 85018; 86850; 86900; 86920; 96374; J1940; P9016

== ENCOUNTER 2020-06-18 13:32 | Outpatient (CLI) | payer MEDICARE, MEDICAID, SELFPAY | END 2020-06-18 13:33 | disposition home or self-care (01) | LOC: WOUND 13:33 | PROVIDERS: PCP Family Medicine; Visit Provider Surgery | DX: E11.622 Type 2 diabetes mellitus with other skin ulcer (principal); L97.812 Non-pressure chronic ulcer of other part of right lower leg with fat layer exposed; Z89.511 Acquired absence of right leg below knee | CPT/HCPCS: 11042 ==

== ENCOUNTER 2020-06-25 13:32 | Outpatient (CLI) | payer MEDICARE, MEDICAID, SELFPAY | END 2020-06-25 13:33 | disposition home or self-care (01) | LOC: WOUND 13:33 | PROVIDERS: PCP Family Medicine; Visit Provider Surgery | DX: E11.622 Type 2 diabetes mellitus with other skin ulcer (principal); L97.812 Non-pressure chronic ulcer of other part of right lower leg with fat layer exposed; Z89.511 Acquired absence of right leg below knee | CPT/HCPCS: 11042 ==

== ENCOUNTER 2020-06-26 23:26 | Emergency (ER) | payer MEDICARE, MEDICAID, SELFPAY ==
--- NOTE | 2020-06-26 23:40 | XRR_ITS ---
PROCEDURE INFORMATION: Exam: XR Chest Exam date and time: 06/26/2020 11:43 PM Age: 70 years old Clinical indication: Other: Seizure; Additional info: Ammy TECHNIQUE: Imaging protocol: XR of the chest Views: 1 view. COMPARISON: CR (CHEST, ) 05/23/2020 9:43 AM FINDINGS: Lungs: Focal consolidation is present the left lung base. Hazy opacities in the right lung concerning for atelectasis. Pleural spaces: Unremarkable. No pleural effusion. No pneumothorax. Heart/Mediastinum: Stable mild cardiomegaly. Bones/joints: There has been a median sternotomy. Stable electronic lead overlying the right side of the chest. XR/XR chest 1V portable [id number] IMPRESSION: 1. Stable mild cardiomegaly. 2. Focal consolidation at the left lung base concerning for atelectasis versus pneumonia. 3. Hazy opacities in the right lung concerning for atelectasis.
--- NOTE | 2020-06-26 23:40 | CTR_ITS ---
PROCEDURE INFORMATION: Exam: CT Head Without Contrast Exam date and time: 06/26/2020 12:36 AM Age: 70 years old Clinical indication: Other: Seizure; Additional info: Sz TECHNIQUE: Imaging protocol: Computed tomography of the head without contrast. Radiation optimization: All CT scans at this facility use at least one of these dose optimization techniques: automated exposure control; mA and/or kV adjustment per patient size (includes targeted exams where dose is matched to clinical indication); or iterative reconstruction. COMPARISON: CT head wo con* [id number] 05/23/2020 1:02 PM RADIATION DOSE METRICS: Total DLP (mGy-cm): 1111 FINDINGS: Brain: Portion of the loop left anterior aspect of the cranium and the left frontal lobe have been excluded from the field of view. There is mild parenchymal atrophy and chronic small vessel disease. No acute infarct or hemorrhage. Cerebral ventricles: No ventriculomegaly. Bones/joints: Unremarkable. No acute fracture. Paranasal sinuses: There is high density material present in the right maxillary sinus. Mastoid air cells: Visualized mastoid air cells are clear. Soft tissues: Unremarkable. CT/CT head wo con* [id number] IMPRESSION: 1. Limited study due to exclusion of portions of the left anterior head and brain. 2. No acute infarct or hemorrhage. 3. Mild parenchymal atrophy and chronic small vessel disease. 4. Stable high density material in the right maxillary sinus which could be secondary to inspissated mucus. Fungal infection is also possibility. Radiation Dose CTDIVOL = (mGy): DLP = 1111 (mGy-cm)
--- NOTE | 2020-06-26 23:41 | ECG_ITS ---
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 Measurements Intervals [place] Rate: 103 P: 1 RI: 168 QRS: -22 QRSD: 107 T: 90 QT: 370 QTc: 486 Interpretive Statements SINUS TACHYCARDIA BORDERLINE LEFT AXIS DEVIATION [QRS AXIS < -20] MODERATE VOLTAGE CRITERIA FOR LVH, CONSIDER NORMAL VARIANT [MEETS CRITERIA IN ONE OF: R(aVL), S(V1), R(V5), R(V5/V6)+S(V1)] NONSPECIFIC ST & T-WAVE ABNORMALITY ABNORMAL RHYTHM ECG INTERPRETATION BASED ON A DEFAULT AGE OF 40 YEARS Compared to ECG 05/23/2020 11:26:52 T-wave abnormality now present Sinus rhythm no longer present Short RI interval no longer present Myocardial infarct finding no longer present Electronically Signed On 06-27-2020 22:39:14 CDT by Angeles Khan M.D. [id number]
[2020-06-26 23:58] LABS: ABG PCO2 35.6 mmHg (35-45); ABG PH Result 7.32 (7.35-7.45); Arterial Blood Gas Hematocrit 36.4 % (42-52); Base Excess ABG -6.8 mmol/L (-2.0-2.0); Blood Gas Sample Site Brachial, right; Blood Gas Sample Type Arterial; HCO3 ABG 18.5 mmol/L (22-26); PO2 ABG 67.9 mmHg (80.0-100.0)
--- NOTE | 2020-06-26 23:59 | W.ED.AMS ---
HPI - Altered Mental Status General: Chief Complaint: Seizure Stated Complaint: NEW ON SET SEIZURE Time Seen by Provider: 06/26/20 23:37 History of Present Illness: HPI narrative: 70-year-old male residential patient with a history of seizures. He presents after 2 episodes of seizure in the residential. He had a third episode in the ambulance on the way into the door at the ER. He had a apnea episode following that. He is currently postictal and is unable to speak or give any history. MD complaint: altered mental status and other (Seizure) Onset (ago): hour(s) Timing confirmed by: caregiver Consistency of symptoms: Unknown Context: seizure disorder Review of Systems General: Reports: ROS unobtainable due to medical condition and ROS unobtainable due to mental status PFSH ED PFSH: Medical History (Updated 06/27/20 @ 05:56 by Sabino Rodrigues DO) Atherosclerotic heart disease of [place] coronary artery without angina pectoris CHF (congestive heart failure) Chronic ulcer of ankle CKD (chronic kidney disease), stage III -known hx of CKD stage 3; baseline Cr is around 3-3.5 Combined systolic and diastolic congestive heart failure -has known hx of chronic combined systolic and diastolic CHF; no acute exacerbation currently -Echo (05/2018): EF=35% -stress testing in 05/2018 showing scarring with mild urmila-infarct ischemia in RCA territory Diabetes mellitus DNR (do not resuscitate) Elevated troponin level Hypertension Multilevel degenerative disc disease -has known hx of multilevel DJD, s/p spinal stimulator -hold opiates, sedating meds due to altered mental status -fall precautions -imaging reviewed, no acute findings Peripheral neuropathy Polyneuropathy in other diseases classified elsewhere Post-ictal state Rhabdomyolysis Seizure disorder Medical management Spinal cord stimulator status Spinal stenosis Type 2 diabetes mellitus Chronic medical management Surgical History S/P CABG x 3 S/P insertion of spinal cord stimulator Status post below knee amputation of right lower extremity Status post below-knee amputation Wound care per orders Family History Other Hyperlipidemia Hypertension Denies family history of Psychiatric illness Lung disease Social History Smoking and tobacco status: former smoker Alcohol intake: former Lives independently: No (Brother is his power of commercial litigation attorney, recently has had to be involved in more decisions) Housing: [facility] Current occupation: Living alone, he was discharged to home with home hospice Physical Exam Const: EXAM LIMITATIONS: altered mental status GENERAL APPEARANCE: ill appearing and frail appearing ORIENTATION/CONSCIOUSNESS: Yes patient obtunded Eye: COMMON NORMALS: Equal, round and reactive pupils present PUPIL: Yes Equal, round and reactive pupils present Chest: COMMONS NORMALS: normal inspection of the chest Resp: EFFORT & INSPECTION: Yes tachypneic and Yes grunting AUSCULTATION: rhonchi Cardio: COMMON NORMALS: regular rate and regular rhythm RATE: regular rate RHYTHM: regular rhythm GI: COMMON NORMALS: Normal to inspection, nondistended, normoactive bowel sounds present and Soft to palpation PALPATION: Yes Soft to palpation Neuro: HIMANSHU COMA SCALE: document GCS findings Himanshu coma scale eye opening: Spontaneous [place] coma scale verbal response: None [place] coma scale motor response: Normal flexion Himanshu coma scale total score: 9 SENSORIUM/ORIENTATION: Yes obtunded Course Vital Signs: Vital signs: Vital Signs Pulse Rate 84 06/27/20 06:51 Respiratory Rate 18 06/27/20 06:51 Blood Pressure 142/47 06/27/20 06:51 Pulse Oximetry 94 06/27/20 06:51 MDM - Altered Mental Status MDM Narrative: Medical decision making narrative: Obtunded 70-year-old male who was postictal after 3 seizure episodes. He did receive Keppra in the residential after the first seizure. He was loaded with IV Keppra here as well. No further instances of seizure. His white blood cell count is 15. His bicarbonate level is 20. His creatinine is 3.6. Spoke with hospitalist about admission. He spoke with the POA and the residential staff. It appears that this gentleman is comfort care measures only, and family and residential staff are comfortable with him going back. He does have an aspiration pneumonitis likely, so he will be sent back with Augmentin to cover Lab Data: Labs: Lab Results 06/26/20 06/27/20 06/27/20 Range/Units 23:50 00:24 00:24 WBC 15.1 H (4.0-10.0) 10^3/ uL RBC 3.87 L (4.1-5.3) 10^6/u L Hgb 11.1 L (11.7-16.6) g/dL Hct 34.4 L (42.0-52.0) % MCV 88.9 (80-94) fL MCH 28.7 (28.0-34.0) pg MCHC 32.3 (30.0-36.0) g/dL RDW 15.7 H (12.1-15.1) % Plt Count 222 (130-400) 10^3/c mm MPV 10.2 (7.4-10.4) fL Neut % (Auto) 91.2 % Lymph % (Auto) 4.4 % [place] % (Auto) 2.9 % Eos % (Auto) 0.3 % Baso % (Auto) 0.6 % Neut # (Auto) 13.74 H (1.8-7.7) 10^3/u L Lymph # (Auto) 0.7 L (0.8-4.8) 10^3/u L [place] # (Auto) 0.4 (0.2-0.9) 10^3/u L Eos # (Auto) 0.1 (0.0-0.8) 10^3/u L Baso # (Auto) 0.1 (0.0-0.1) 10^3/u L Nucleated RBC % (a uto) 0 % Nucleated RBCs # 0.0 /100WBC PT (12.1-14.9) SECO NDS INR (0.8-1.2) APTT (23.9-36.7) SECO NDS Specimen Type Arterial Sample Site Brachial, right ABG pH 7.32 L (7.35-7.45) ABG pCO2 35.6 (35-45) mmHg ABG pO2 67.9 L (80.0-100.0) mmH g ABG HCO3 18.5 L (22-26) mmol/L ABG Base Excess -6.8 L (-2.0-2.0) mmol/ L Gabo Test N/a Hematocrit 36.4 L (42-52) % O2 Delivery Device None FiO2 21.0 % Manager Operations Research ID [id number] Sodium Cancelled Potassium Cancelled Chloride Cancelled Carbon Dioxide Cancelled Anion Gap Cancelled BUN Cancelled Creatinine Cancelled GFR Calculation Cancelled Glucose Cancelled Calculated Osmolal ity Cancelled Calcium Cancelled Total Bilirubin Cancelled AST Cancelled ALT Cancelled Alkaline Phosphata se Cancelled Creatine Kinase Cancelled Troponin T Baselin e Troponin T 120 Min wilner (0-15) ng/L Delta Troponin T (0-10) ABS# Total Protein Cancelled Albumin Cancelled Globulin Cancelled Urine Color (Yellow) Urine Appearance (CLEAR) Urine pH (5-7) Ur Specific Gravit y (1.005-1.030) Urine Protein (Negative) Urine Glucose (UA) (Normal) Urine Ketones (Negative) Urine Blood (Negative) Urine Nitrate (Negative) Urine Bilirubin (Negative) Urine Urobilinogen (Negative) mg/dL Ur Leukocyte Nadege ase (Negative) Urine RBC (0-2) /hpf Urine WBC (0-5) /hpf Ur Squamous Epith Cells (0-5) /hpf Amorphous Sediment Urine Bacteria (NONE) /hpf 06/27/20 06/27/20 06/27/20 Range/Units 00:24 00:40 03:05 WBC (4.0-10.0) 10^3/ uL RBC (4.1-5.3) 10^6/u L Hgb (11.7-16.6) g/dL Hct (42.0-52.0) % MCV (80-94) fL MCH (28.0-34.0) pg MCHC (30.0-36.0) g/dL RDW (12.1-15.1) % Plt Count (130-400) 10^3/c mm MPV (7.4-10.4) fL Neut % (Auto) % Lymph % (Auto) % [place] % (Auto) % Eos % (Auto) % Baso % (Auto) % Neut # (Auto) (1.8-7.7) 10^3/u L Lymph # (Auto) (0.8-4.8) 10^3/u L [place] # (Auto) (0.2-0.9) 10^3/u L Eos # (Auto) (0.0-0.8) 10^3/u L Baso # (Auto) (0.0-0.1) 10^3/u L Nucleated RBC % (a uto) % Nucleated RBCs # /100WBC PT 14.80 (12.1-14.9) SECO NDS INR 1.12 (0.8-1.2) APTT 23.8 L (23.9-36.7) SECO NDS Specimen Type Sample Site ABG pH (7.35-7.45) ABG pCO2 (35-45) mmHg ABG pO2 (80.0-100.0) mmH g ABG HCO3 (22-26) mmol/L ABG Base Excess (-2.0-2.0) mmol/ L Gabo Test Hematocrit (42-52) % O2 Delivery Device FiO2 % Manager Operations Research ID Sodium Potassium Chloride Carbon Dioxide Anion Gap BUN Creatinine GFR Calculation Glucose Calculated Osmolal ity Calcium Total Bilirubin AST ALT Alkaline Phosphata se Creatine Kinase Troponin T Baselin e Cancelled Troponin T 120 Min wilner (0-15) ng/L Delta Troponin T (0-10) ABS# Total Protein Albumin Globulin Urine Color Yellow (Yellow) Urine Appearance Clear (CLEAR) Urine pH 6 (5-7) Ur Specific Gravit y 1.010 (1.005-1.030) Urine Protein 3+ H (Negative) Urine Glucose (UA) 1+ (Normal) Urine Ketones Negative (Negative) Urine Blood 2+ H (Negative) Urine Nitrate Negative (Negative) Urine Bilirubin Neg (Negative) Urine Urobilinogen Norm (Negative) mg/dL Ur Leukocyte Nadege ase Negative (Negative) Urine RBC 10-15 H (0-2) /hpf Urine WBC 0-4 H (0-5) /hpf Ur Squamous Epith Cells 10-15 H (0-5) /hpf Amorphous Sediment Not Reportable Urine Bacteria 2+ H (NONE) /hpf 06/27/20 06/27/20 06/27/20 Range/Units 03:12 03:12 03:45 WBC (4.0-10.0) 10^3/ uL RBC (4.1-5.3) 10^6/u L Hgb (11.7-16.6) g/dL Hct (42.0-52.0) % MCV (80-94) fL MCH (28.0-34.0) pg MCHC (30.0-36.0) g/dL RDW (12.1-15.1) % Plt Count (130-400) 10^3/c mm MPV (7.4-10.4) fL Neut % (Auto) % Lymph % (Auto) % [place] % (Auto) % Eos % (Auto) % Baso % (Auto) % Neut # (Auto) (1.8-7.7) 10^3/u L Lymph # (Auto) (0.8-4.8) 10^3/u L [place] # (Auto) (0.2-0.9) 10^3/u L Eos # (Auto) (0.0-0.8) 10^3/u L Baso # (Auto) (0.0-0.1) 10^3/u L Nucleated RBC % (a uto) % Nucleated RBCs # /100WBC PT (12.1-14.9) SECO NDS INR (0.8-1.2) APTT (23.9-36.7) SECO NDS Specimen Type Sample Site ABG pH (7.35-7.45) ABG pCO2 (35-45) mmHg ABG pO2 (80.0-100.0) mmH g ABG HCO3 (22-26) mmol/L ABG Base Excess (-2.0-2.0) mmol/ L Gabo Test Hematocrit (42-52) % O2 Delivery Device FiO2 % Manager Operations Research ID Sodium 137 Potassium 4.8 Chloride 100 Carbon Dioxide 20 L Anion Gap 21.8 H BUN 54 H Creatinine 3.6 H GFR Calculation Not Reportable Glucose 234 H Calculated Osmolal ity 306 H Calcium 8.8 Total Bilirubin 0.3 AST 15 ALT 10 Alkaline Phosphata se 61 Creatine Kinase 67 Troponin T Baselin e 375 H* Troponin T 120 Min wilner 394.4 H (0-15) ng/L Delta Troponin T 19.4 H* (0-10) ABS# Total Protein 6.8 Albumin 3.4 L Globulin 3.4 Urine Color (Yellow) Urine Appearance (CLEAR) Urine pH (5-7) Ur Specific Gravit y (1.005-1.030) Urine Protein (Negative) Urine Glucose (UA) (Normal) Urine Ketones (Negative) Urine Blood (Negative) Urine Nitrate (Negative) Urine Bilirubin (Negative) Urine Urobilinogen (Negative) mg/dL Ur Leukocyte Nadege ase (Negative) Urine RBC (0-2) /hpf Urine WBC (0-5) /hpf Ur Squamous Epith Cells (0-5) /hpf Amorphous Sediment Urine Bacteria (NONE) /hpf Discharge Plan Discharge Patient Disposition: Home Clinical Impression: Seizure disorder, Epileptic seizure, Aspiration pneumonia Condition: Stable Prescriptions: No Action atropine 1 % drops 1 drp ophthalmic (eye) BID RF: 0 ondansetron HCl [Zofran] 4 mg Tablet 4 mg PO Q6H PRN (Reason: Nausea) RF: 0 acetaminophen 325 mg tablet 650 mg PO Q6H PRN (Reason: Pain) RF: 0 morphine 20 mg/5 mL (4 mg/mL) solution 5 mg PO Q3H PRN (Reason: end of life) Qty: 100 RF: 0 lorazepam 2 mg/mL concentrate 1 mg BUCCAL Q4H PRN (Reason: end of life) Qty: 30 RF: 0 Discharge Orders: Discharge Order (Routine); Ordered 06/27/20 Ordered By: Sabino Rodrigues Discharge ED (Routine); Ordered 06/27/20 Ordered By: Sabino Rodrigues Referrals: Sajan Jack Jr, MD [Primary Care Provider] - Patient Instructions: Opioid Safety Coding Level of Care Code ED Front Desk Agent for Brandy Sanchez
[2020-06-27 00:15] VITALS: BP 177/73; PULSE 99; RESP 12; O2SAT 92; BMI 32.1
[2020-06-27 00:33] LABS: Basophils # 0.1 10^3/uL (0.0-0.1); Basophils % 0.6 %; Eosinophils # 0.1 10^3/uL (0.0-0.8); Eosinophils % 0.3 %; Hematocrit 34.4 % (42.0-52.0); Hemoglobin 11.1 g/dL (11.7-16.6); Lymphocytes # 0.7 10^3/uL (0.8-4.8); Lymphocytes % 4.4 %; Mean Corpuscular HGB Conc 32.3 g/dL (30.0-36.0); Mean Corpuscular Hemoglobin 28.7 pg (28.0-34.0); Mean Corpuscular Volume 88.9 fL (80-94); Mean Platelet Volume 10.2 fL (7.4-10.4); Monocytes # 0.4 10^3/uL (0.2-0.9); Monocytes % 2.9 %; Neutrophils # 13.74 10^3/uL (1.8-7.7); Neutrophils % 91.2 %; Nucleated Red Blood Cells % 0 %; Platelet Count 222 10^3/cmm (130-400); Red Blood Count 3.87 10^6/uL (4.1-5.3); Red Cell Distribution Width 15.7 % (12.1-15.1); White Blood Count 15.1 10^3/uL (4.0-10.0)
[2020-06-27] MEDS: labetalol 5 mg/mL SDV 20mL 20 MG IVP (00:34)
[2020-06-27 01:41] LABS: INR 1.12 (0.8-1.2)
[2020-06-27 01:42] LABS: Partial Thromboplastin Time 23.8 SECONDS (23.9-36.7)
[2020-06-27] MEDS: cefTRIAXone 1,000 MG in sodium chloride 0.9% (plus) 50 ML 100 MG IV (03:14)
[2020-06-27 03:50] LABS: Alanine Aminotransferase 10 U/L (0-41); Albumin Level 3.4 g/dL (3.5-5.2); Alkaline Phosphatase 61 IU/L (40-130); Blood Urea Nitrogen 54 mg/dL (8-23); Calcium 8.8 mg/dL (8.5-10.5); Carbon Dioxide 20 mmol/L (22-29); Chloride 100 mmol/L (98-107); Creatine Phosphokinase 67 U/L (39-308); Globulin 3.4 g/dL (1.3-4.6); Glucose 234 mg/dL (65-115); Osmolality Calculated 306 mOsm/kg (285-295); Sodium 137 mmol/L (136-145); Total Bilirubin 0.3 mg/dL (0.15-1.2); Total Protein 6.8 g/dL (6.6-8.7)
[2020-06-27 04:25] LABS: Anion Gap 21.8 (5-19); Aspartate Amino Transferase 15 U/L (0-40); Potassium 4.8 mmol/L (3.5-5.1)
[2020-06-27 04:26] LABS: Troponin(5th) Baseline 375 ng/L (0-15)
[2020-06-27 04:31] LABS: Add Urine Microscopic? YES; Bilirubin Urine Neg (Negative); Blood Urine 2+ (Negative); Glucose Urine UA 1+ (Normal); Ketones Urine Negative (Negative); Leukocyte Esterase Urine Negative (Negative); Nitrate Urine Negative (Negative); Protein Urine 3+ (Negative); Urine Appearance Clear (CLEAR); Urine Color Yellow (Yellow); Urobilinogen Urine Norm (Negative); pH Urine 6 (5-7)
--- NOTE | 2020-06-27 05:06 | P.HP_ITS ---
Providers/Chief Complaint Primary Care Provider: Sajan Jack Jr, MD Chief Complaint: NEW ON SET SEIZURE History of Present Illness Moy Fernandez is a 70 year old male with a extensive past medical history of diastolic and systolic heart failure, last EF 45%, history of CKD stage III, hypertension, seizure disorder, CAD status post CABG, history of spinal cord stimulator implantation, history of right below-knee amputation, type 2 diabetes mellitus, hypertension, history of COVID-19 infection, chronic pressure ulcers, chronic anemia, who presents [facility] due to 2 seizure episodes I spoke to [facility], as currently patient does not answer questions, he is alert, but does not respond to questioning, he does withdraw from pain, but is postictal. According to [facility], at roughly 6 PM, patient had one episode of grand mal seizure, lasting about a minute, the ordered Keppra, but it did not arrive, at roughly 11 PM he had a grand mal seizure again occurring for about 3 minutes, he was postictal. Here in the emergency room patient remains postictal, nonverbal, he is alert, but does not readily respond to questioning. Here in the emergency room, CT head did not show any acute bleed, he is postictal, does not really respond to questioning, his troponin is over 300, his chest x-ray looks like he has aspiration pneumonia. I was reviewing his chart when I found that patient had comfort care orders. I called [facility], who looked over their chart found that he indeed was on comfort care, nurse tells me that after his below-knee amputation he was not doing well, so they put him on comfort care, but he is down doing better, he is unsure exactly if patient is on comfort care or not. [facility] a few minutes later after talking to management, confirmed that patient is on comfort care. In addition I called patient's DPOA Sajan Fernandez, advised him of the seizure-like episode, aspiration pneumonia, NSTEMI. His brother wants Moy to not suffer, he wants us to continue his comfort care, he wants us to send him back to the senior living. I said that that was reasonable, will continue the Keppra on discharge back to the senior living, antibiotics for aspiration pneumonia, certainly there could be a significant cardiovascular event given his elevated troponins. But he is comfort care. And our emphasis will be on making him comfortable with p.o. morphine and Ativan. Sajan Fernandez voiced understanding, all questions answered, agreed to proceed with senior living with comfort which patient is already on. -Discharged on Keppra 500 twice daily, senior living is confirm that they have received it -Augmentin 875 twice daily for aspiration pneumonia -Comfort care orders Review of Systems General: Reports: ROS unobtainable due to medical condition Eyes: Reports: increased production of tears Medications/Allergies Home Medications Medication Instructions Recorded Confirmed Last Taken Type acetaminophen 650 mg PO Q6H PRN 02/14/20 06/11/20 02/06/20 History lorazepam 1 mg BUCCAL Q4H PRN #30 ml 02/14/20 06/11/20 Unknown Rx morphine 5 mg PO Q3H PRN #100 ml 02/14/20 06/11/20 1 Day Ago Rx ~06/10/20 ondansetron HCl [Zofran] 4 mg PO Q6H PRN 02/14/20 06/11/20 02/13/20 08:41 History atropine 1 % eye drops 1 drp OPHTHALMIC (EYE) BID 04/26/20 06/11/20 Unknown History Allergies Allergy/AdvReac Type Severity Reaction Status Date / Time No Known Allergies Allergy Verified 04/26/20 14:54 PFSH Acute PFSH: Medical History Atherosclerotic heart disease of [place] coronary artery without angina pectoris CHF (congestive heart failure) Chronic ulcer of ankle CKD (chronic kidney disease), stage III -known hx of CKD stage 3; baseline Cr is around 3-3.5 Combined systolic and diastolic congestive heart failure -has known hx of chronic combined systolic and diastolic CHF; no acute exacerbation currently -Echo (05/2018): EF=35% -stress testing in 05/2018 showing scarring with mild urmila-infarct ischemia in RCA territory Diabetes mellitus DNR (do not resuscitate) Elevated troponin level Hypertension Multilevel degenerative disc disease -has known hx of multilevel DJD, s/p spinal stimulator -hold opiates, sedating meds due to altered mental status -fall precautions -imaging reviewed, no acute findings Peripheral neuropathy Polyneuropathy in other diseases classified elsewhere Post-ictal state Rhabdomyolysis Seizure disorder Medical management Spinal cord stimulator status Spinal stenosis Type 2 diabetes mellitus Chronic medical management Surgical History S/P CABG x 3 S/P insertion of spinal cord stimulator Status post below knee amputation of right lower extremity Status post below-knee amputation Wound care per orders Family History Other Hyperlipidemia Hypertension Denies family history of Psychiatric illness Lung disease Social History Smoking and tobacco status: former smoker Alcohol intake: former Lives independently: No (Brother is his power of quiller machine fixer, recently has had to be involved in more decisions) Housing: Senior Living Current occupation: Living alone, he was discharged to home with home hospice Vitals/I&O/Wt Last Vital Signs Pulse 99 06/27/20 00:15 Resp 12 06/27/20 00:15 BP 177/73 06/27/20 00:15 Pulse Ox 92 06/27/20 00:15 Weight last 48 hrs Weight 104.326 kg Physical Exam Const: COMMON NORMALS: no acute distress ORIENTATION/CONSCIOUSNESS: Yes awake; not oriented to person, not oriented to place and not oriented to time OTHER: Alert, does not respond to any questioning, does open his eyes, postictal Resp: COMMON NORMALS: normal respiratory effort AUSCULTATION: clear to auscultation bilaterally Cardio: COMMON NORMALS: no JVD RATE: regular rate HEART SOUNDS: S1 normal heart sound present and S2 normal heart sound present GI: COMMON NORMALS: Normal to inspection, nondistended, normoactive bowel sounds present INSPECTION: Yes normal to inspection AUSCULTATION: Yes normoactive bowel sounds PERCUSSION: normal to percussion Neuro: OTHER: Currently is postictal Urinary Catheter Management^: Denise: Cath Placed During This Visit: yes Urinary Catheter Date of Insertion: 06/27/20 Urinary Catheter Time of Insertion: 03:10 Data : 06/27/20 00:24 06/27/20 03:12 Attestations Medical Necessity Statement*: Patient will be discharged from the ER, comfort care Coding Level of Care Code Acute Wire Bender Hand for Brandy Sanchez
[2020-06-27 05:31] VITALS: BP 105/55; PULSE 82; RESP 14; O2SAT 93
[2020-06-27 05:40] LABS: Add Urine Culture? No; Bacteria Urine 2+ /hpf; WBC Urine 0-4 /hpf (0-5)
[2020-06-27 06:51] VITALS: BP 142/47; PULSE 84; RESP 18; O2SAT 94
[2020-06-27 06:56] LABS: Troponin 5 2HR 394.4 ng/L (0-15); Troponin 5 2HR Delta 19.4 ABS# (0-10)
== END 2020-06-27 07:17 | disposition home or self-care (01) ==
LOC: ER 06-27 00:38 → MEDSURG 06-27 05:56
PROVIDERS: Emergency Provider Emergency Medicine; PCP Family Medicine
DX: G40.909 Epilepsy, unspecified, not intractable, without status epilepticus (principal); J69.0 Pneumonitis due to inhalation of food and vomit; I25.10 Atherosclerotic heart disease of native coronary artery without angina pectoris; I13.0 Hypertensive heart and chronic kidney disease with heart failure and stage 1 through stage 4 chronic kidney disease, or unspecified chronic kidney disease; E11.22 Type 2 diabetes mellitus with diabetic chronic kidney disease; N18.30 Chronic kidney disease, stage 3 unspecified; I50.9 Heart failure, unspecified; E11.42 Type 2 diabetes mellitus with diabetic polyneuropathy; Z95.1 Presence of aortocoronary bypass graft; Z89.511 Acquired absence of right leg below knee; Z87.891 Personal history of nicotine dependence
CPT/HCPCS: 36415; 36600; 51702; 70450; 71045; 80053; 81001; 82550; 82803; 84484; 85025; 85610; 85730; 87040; 93005; J0696; J1953; J3490

== ENCOUNTER 2020-07-02 13:23 | Outpatient (CLI) | payer MEDICARE, MEDICAID, SELFPAY | END 2020-07-02 13:24 | disposition home or self-care (01) | PROVIDERS: PCP Family Medicine; Visit Provider Nurse Practitioner Family | DX: E11.622 Type 2 diabetes mellitus with other skin ulcer (principal); L97.812 Non-pressure chronic ulcer of other part of right lower leg with fat layer exposed; Z89.511 Acquired absence of right leg below knee | CPT/HCPCS: 11042 ==

== ENCOUNTER 2020-07-09 14:35 | Outpatient (CLI) | payer MEDICARE, MEDICAID, SELFPAY | END 2020-07-09 14:36 | disposition home or self-care (01) | LOC: WOUND 14:36 | PROVIDERS: PCP Family Medicine; Visit Provider Surgery | DX: Z09 Encounter for follow-up examination after completed treatment for conditions other than malignant neoplasm (principal) | CPT/HCPCS: 99212 ==

== ENCOUNTER 2020-07-22 17:03 | Outpatient (CLI) | payer MEDICARE, MEDICAID, SELFPAY ==
[2020-07-22 18:28] LABS: Anion Gap 20.4 (5-19); Calcium 8.5 mg/dL (8.5-10.5); Carbon Dioxide 23 mmol/L (22-29); Chloride 99 mmol/L (98-107); Glucose 123 mg/dL (65-115); Osmolality Calculated 311 mOsm/kg (285-295); Potassium 5.4 mmol/L (3.5-5.1); Sodium 137 mmol/L (136-145)
[2020-07-22 18:37] LABS: Blood Urea Nitrogen 85 mg/dL (8-23)
== END 2020-07-22 17:04 | disposition home or self-care (01) ==
PROVIDERS: PCP Family Medicine; Visit Provider Nurse Practitioner Family
DX: N18.1 Chronic kidney disease, stage 1 (principal)
CPT/HCPCS: 80048

== ENCOUNTER 2020-07-22 20:41 | Inpatient (IN) | payer MEDICARE, MEDICAID, SELFPAY ==
[2020-07-22 20:46] VITALS: BP 123/54; PULSE 65; O2SAT 98
[2020-07-22 23:11] VITALS: BP 170/80; PULSE 66; RESP 18; O2SAT 99
--- NOTE | 2020-07-22 23:29 | ED_ITS ---
HPI - Recheck/Abnormal Lab/Rx General: Chief Complaint: Recheck/Abnormal Lab/Rx Stated Complaint: labs Time Seen by Provider: 07/22/20 22:49 Source: patient and EMS Mode of arrival: EMS Limitations: no limitations History of Present Illness: HPI narrative: 70-year-old male was sent here by residential for elevated BUN. He has chronic kidney disease looking back to his labs always has a slightly elevated BUN and creatinine. He states there is concern as it was climbing and the BUN they check today is 85. Patient states he has had some weakness. He is not on dialysis. He does appear may be dehydrated. He denies any vomiting or diarrhea. Denies any worsening improving factors. Review of Systems Const: Denies: fever(s), chills, body aches or change in appetite Eyes: Denies: blurry vision or eye discomfort ENMT: Denies: throat pain or dental pain Card: Denies: chest pain Resp: Denies: dyspnea GI: Denies: abdominal pain, nausea, vomiting or diarrhea : Denies: dysuria Musc: Denies: neck pain or back pain Skin/Breast: Denies: rash Neuro: Denies: headache(s) Psych: Denies: depression Stanley/Lymph: Denies: easy bruising All/Imm: Denies: urticaria PFSH ED PFSH: Medical History (Updated 07/23/20 @ 01:18 by Tayler Carter MD) Atherosclerotic heart disease of [place] coronary artery without angina pectoris CHF (congestive heart failure) Chronic ulcer of ankle CKD (chronic kidney disease), stage III -known hx of CKD stage 3; baseline Cr is around 3-3.5 Combined systolic and diastolic congestive heart failure -has known hx of chronic combined systolic and diastolic CHF; no acute exacerbation currently -Echo (05/2018): EF=35% -stress testing in 05/2018 showing scarring with mild urmila-infarct ischemia in RCA territory Diabetes mellitus DNR (do not resuscitate) Elevated troponin level Hypertension Multilevel degenerative disc disease -has known hx of multilevel DJD, s/p spinal stimulator -hold opiates, sedating meds due to altered mental status -fall precautions -imaging reviewed, no acute findings Peripheral neuropathy Polyneuropathy in other diseases classified elsewhere Post-ictal state Rhabdomyolysis Seizure disorder Medical management Spinal cord stimulator status Spinal stenosis Type 2 diabetes mellitus Chronic medical management Surgical History S/P CABG x 3 S/P insertion of spinal cord stimulator Status post below knee amputation of right lower extremity Status post below-knee amputation Wound care per orders Family History Other Hyperlipidemia Hypertension Denies family history of Psychiatric illness Lung disease Social History Smoking and tobacco status: former smoker Alcohol intake: former Lives independently: No (Brother is his power of universal winding machine operator, recently has had to be involved in more decisions) Housing: [facility] Current occupation: Living alone, he was discharged to home with home hospice Physical Exam Const: COMMON NORMALS: no acute distress and patient oriented x3 GENERAL APPEARANCE: frail appearing HENMT: COMMON NORMALS: normocephalic and atraumatic HEAD & SCALP: normocephalic and atraumatic Eye: COMMON NORMALS: Equal, round and reactive pupils present and EOMs intact bilaterally PUPIL: Yes Equal, round and reactive pupils present Neck/C-Spine: COMMON NORMALS: full ROM and supple Chest: COMMONS NORMALS: normal inspection of the chest and normal palpation of entire chest wall Resp: COMMON NORMALS: normal respiratory effort, No retractions, No use of accessory muscles and clear to auscultation bilaterally AUSCULTATION: clear to auscultation bilaterally Cardio: COMMON NORMALS: regular rate, regular rhythm and No murmurs present (Cardio) RATE: regular rate RHYTHM: regular rhythm GI: COMMON NORMALS: Normal to inspection, nondistended, normoactive bowel sounds present, Soft to palpation, non-tender and no masses PALPATION: Yes Soft to palpation Extremity: COMMON NORMALS: normal to inspection and full ROM Neuro: COMMON NORMALS: patient oriented x3, moves all extremities and no focal motor deficits Psych: COMMON NORMALS: mental status grossly normal, Normal thought process present and cooperative THOUGHT PROCESS: Normal thought process present Skin: COMMON NORMALS: no rashes or lesions noted and no wounds GENERAL SKIN EXAM: no rashes or lesions noted Course Vital Signs: Vital signs: Vital Signs Pulse Rate 66 07/22/20 23:11 Respiratory Rate 18 07/22/20 23:11 Blood Pressure 170/80 07/22/20 23:11 Pulse Oximetry 99 07/22/20 23:11 MDM - Recheck/Abnormal Lab/Rx MDM Narrative: Medical decision making narrative: Moy presents here with elevated BUN/creatinine likely from dehydration and acute kidney injury with a history of chronic kidney disease. His elevated BUN and creatinine is likely due to dehydration's. He has no signs of infection here. I spoke to hospitalist will admit for rehydration. Lab Data: Labs: Lab Results 07/22/20 07/22/20 Range/Units 23:34 23:34 WBC 7.4 (4.0-10.0) 10^3/ uL RBC 3.38 L (4.1-5.3) 10^6/u L Hgb 9.9 L (11.7-16.6) g/dL Hct 30.8 L (42.0-52.0) % MCV 91.1 (80-94) fL MCH 29.3 (28.0-34.0) pg MCHC 32.1 (30.0-36.0) g/dL RDW 15.9 H (12.1-15.1) % Plt Count 199 (130-400) 10^3/c mm MPV 9.6 (7.4-10.4) fL Neut % (Auto) 59.4 % Lymph % (Auto) 19.9 % [place] % (Auto) 10.8 % Eos % (Auto) 8.8 % Baso % (Auto) 0.8 % Neut # (Auto) 4.41 (1.8-7.7) 10^3/u L Lymph # (Auto) 1.5 (0.8-4.8) 10^3/u L [place] # (Auto) 0.8 (0.2-0.9) 10^3/u L Eos # (Auto) 0.7 (0.0-0.8) 10^3/u L Baso # (Auto) 0.1 (0.0-0.1) 10^3/u L Nucleated RBC % (a uto) 0 % Nucleated RBCs # 0.0 /100WBC Sodium 135 L (136-145) mmol/L Potassium 5.1 (3.5-5.1) mmol/L Chloride 100 (98-107) mmol/L Carbon Dioxide 20 L (22-29) mmol/L Anion Gap 20.1 H (5-19) BUN 88 H* (8-23) mg/dL Creatinine 4.9 H (0.7-1.2) mg/dL GFR Calculation Not Reportable Glucose 130 H (65-115) mg/dL Calculated Osmolal ity 309 H (285-295) mOsm/k g Calcium 8.5 (8.5-10.5) mg/dL Total Bilirubin 0.2 (0.15-1.2) mg/dL AST 12 (0-40) U/L ALT 14 (0-41) U/L Alkaline Phosphata se 57 (40-130) IU/L Total Protein 7.0 (6.6-8.7) g/dL Albumin 3.2 L (3.5-5.2) g/dL Globulin 3.8 (1.3-4.6) g/dL Discharge Plan Discharge Patient Disposition: Admitted As Inpatient Admit Provider: Hamilton Moscoso Clinical Impression: Acute kidney injury Condition: Stable Coding Level of Care Code ED Elastic Cutter for jesus Fwd Exam Comprehensive
[2020-07-22 23:49] LABS: Basophils # 0.1 10^3/uL (0.0-0.1); Basophils % 0.8 %; Eosinophils # 0.7 10^3/uL (0.0-0.8); Eosinophils % 8.8 %; Hematocrit 30.8 % (42.0-52.0); Hemoglobin 9.9 g/dL (11.7-16.6); Lymphocytes # 1.5 10^3/uL (0.8-4.8); Lymphocytes % 19.9 %; Mean Corpuscular HGB Conc 32.1 g/dL (30.0-36.0); Mean Corpuscular Hemoglobin 29.3 pg (28.0-34.0); Mean Corpuscular Volume 91.1 fL (80-94); Mean Platelet Volume 9.6 fL (7.4-10.4); Monocytes # 0.8 10^3/uL (0.2-0.9); Monocytes % 10.8 %; Neutrophils # 4.41 10^3/uL (1.8-7.7); Neutrophils % 59.4 %; Nucleated Red Blood Cells % 0 %; Platelet Count 199 10^3/cmm (130-400); Red Blood Count 3.38 10^6/uL (4.1-5.3); Red Cell Distribution Width 15.9 % (12.1-15.1); White Blood Count 7.4 10^3/uL (4.0-10.0)
[2020-07-23] VITALS (8 sets, daily range): BP systolic 149–178; BP diastolic 66–83; PULSE 67–73; RESP 16–20; TEMP 36.6–37.1; O2SAT 94–98
[2020-07-23 00:04] LABS: Alanine Aminotransferase 14 U/L (0-41); Albumin Level 3.2 g/dL (3.5-5.2); Alkaline Phosphatase 57 IU/L (40-130); Anion Gap 20.1 (5-19); Aspartate Amino Transferase 12 U/L (0-40); Calcium 8.5 mg/dL (8.5-10.5); Carbon Dioxide 20 mmol/L (22-29); Chloride 100 mmol/L (98-107); Globulin 3.8 g/dL (1.3-4.6); Glucose 130 mg/dL (65-115); Osmolality Calculated 309 mOsm/kg (285-295); Potassium 5.1 mmol/L (3.5-5.1); Sodium 135 mmol/L (136-145); Total Bilirubin 0.2 mg/dL (0.15-1.2)
[2020-07-23 00:10] LABS: Blood Urea Nitrogen 88 mg/dL (8-23)
[2020-07-23] MEDS: sodium chloride 0.9% 1,000 ML 999 ML IV (00:48)
--- NOTE | 2020-07-23 01:17 | P.HP_ITS ---
Providers/Chief Complaint Admitting Physician: Hamilton Moscoso MD Primary Care Provider: Sajan Jack Jr, MD Chief Complaint: labs History of Present Illness Moy Fernandez is a 70 year old male who presented from [facility] today with chief complaint of not been able to eat well. Patient is stating that he does not like the food of alf but he tries to eat 3 times a day, when asked him about meal last night he said he is not interested in that particular food. He does endorse losing weight 20 pounds in last few months, no recent diarrhea or vomiting not complaining of active chest pain or shortness of breath, he ambulates via wheelchair and is waiting for prosthesis next week. No recent fever shortness of breath, sinus congestion episodes. Today blood work at the alf revealed worsening BUN and creatinine that is why he was sent to the hospital for further evaluation. Diagnosis in the ER revealed acute on chronic kidney disease creatinine 4.9 BUN 88, his previous trend of creatinine seems to be showing value of 3.7-4.8, mild anemia hemoglobin 9.9, in the ER he was given 1 L normal saline urinalysis is pending, depending on urinalysis I would request CT abdomen if I see hematuria and pyuria to rule out pyelonephritis, Review of Systems Const: Reports: chills, body aches, change in appetite, change in weight, fatigue and malaise; Denies: fever(s), night sweats or diaphoresis Eyes: Denies: change in vision ENMT: Denies: throat pain Card: Reports: swelling of feet/ankles; Denies: chest pain, dyspnea on exertion or orthopnea Resp: Denies: dyspnea GI: Denies: abdominal pain : Denies: flank pain, urinary frequency or urinary dribbling Musc: Reports: extremity swelling; Denies: neck pain Skin/Breast: Reports: lesions Neuro: Denies: headache(s) Psych: Denies: anxiety Endo: Denies: polyuria Stanley/Lymph: Denies: easy bruising All/Imm: Denies: urticaria Medications/Allergies Home Medications Medication Instructions Recorded Confirmed Last Taken Type acetaminophen 650 mg PO Q6H PRN 02/14/20 06/11/20 02/06/20 History lorazepam 1 mg BUCCAL Q4H PRN #30 ml 02/14/20 06/11/20 Unknown Rx morphine 5 mg PO Q3H PRN #100 ml 02/14/20 06/11/20 1 Day Ago Rx ~06/10/20 ondansetron HCl [Zofran] 4 mg PO Q6H PRN 02/14/20 06/11/20 02/13/20 08:41 History atropine 1 % eye drops 1 drp OPHTHALMIC (EYE) BID 04/26/20 06/11/20 Unknown History Allergies Allergy/AdvReac Type Severity Reaction Status Date / Time No Known Allergies Allergy Verified 04/26/20 14:54 PFSH Acute PFSH: Medical History (Updated 07/23/20 @ 02:19 by Hamilton Moscoso MD) Atherosclerotic heart disease of [place] coronary artery without angina pectoris CHF (congestive heart failure) Chronic ulcer of ankle CKD (chronic kidney disease), stage III -known hx of CKD stage 3; baseline Cr is around 3.5-4 Combined systolic and diastolic congestive heart failure -has known hx of chronic combined systolic and diastolic CHF; no acute exacerbation currently -Echo (05/2018): EF=35% -stress testing in 05/2018 showing scarring with mild urmila-infarct ischemia in RCA territory Diabetes mellitus DNR (do not resuscitate) Elevated troponin level Hypertension Multilevel degenerative disc disease -has known hx of multilevel DJD, s/p spinal stimulator -hold opiates, sedating meds due to altered mental status -fall precautions -imaging reviewed, no acute findings Peripheral neuropathy Polyneuropathy in other diseases classified elsewhere Post-ictal state Rhabdomyolysis Seizure disorder Medical management Spinal cord stimulator status Spinal stenosis Type 2 diabetes mellitus Chronic medical management Surgical History S/P CABG x 3 S/P insertion of spinal cord stimulator Status post below knee amputation of right lower extremity Status post below-knee amputation Wound care per orders Family History Other Hyperlipidemia Hypertension Denies family history of Psychiatric illness Lung disease Social History Smoking and tobacco status: former smoker Alcohol intake: former Lives independently: No (Brother is his power of tax associate attorney, recently has had to be involved in more decisions) Housing: Senior Care Current occupation: Living alone, he was discharged to home with home hospice Vitals/I&O/Wt Last Vital Signs Pulse 66 07/22/20 23:11 Resp 18 07/22/20 23:11 BP 170/80 07/22/20 23:11 Pulse Ox 99 07/22/20 23:11 Physical Exam Narrative: EXAM NARRATIVE: Patient was laying in left lateral position was not really cooperative during my evaluation, He was laying supine without any active shortness of breath or chest pain S1, S2 no murmur appreciated Mild signs of dehydration Abdomen soft nontender bowel sound present Bilateral breath sounds no audible wheezing or stridor Right BKA with mild hyperemia around the stump Left leg 1+ pitting edema Patient is awake and alert oriented to time and person but not place, he could tell me his date of , enrollment services vice president Seems to have poor insight to his medical conditions Patient was very lethargic and did not cooperate very well during my evaluation, charge nurse was also present in the room Data : 07/22/20 23:34 07/22/20 23:34 A&P Assessment and plan (1) Acute worsening of stage 3 chronic kidney disease: Status: Acute (2) Dehydration: Status: Acute (3) Anorexia: Status: Acute (4) Declining functional status: Status: Acute Additional A&P Information Acute on chronic kidney disease stage III This seems secondary to dehydration however he has history of ESBL UTI, I am still waiting on urine sample, if he has hematuria and pyuria would request CT abdomen pelvis will do bladder scan as needed to rule out obstructive uropathy Hold nephrotoxic agents Keep him on normal saline maintenance fluid Patient does endorse anorexia and seems to have poor functional status, will add mirtazapine Patient is denying vomiting and diarrhea most likely source of dehydration is poor p.o. intake Check TSH level Mildly reduced EF heart failure with diastolic component without acute exacerbation EF 45% no acute exacerbation however left leg has mild 1+ pitting edema, currently patient is requiring IV fluids, monitor for signs of fluid overload he is in supine requiring no oxygen at all, he saturating well on room air Patient was discharged in June on Keppra, Augmentin(for aspiration pneumonia) and comfort care measures back to [facility] Type 2 diabetes: Moderate sliding scale History of seizures: No breakthrough seizure episodes, continue Keppra 500 mg twice daily Goals of care: DNR/DNI Cardiac diet DVT prophylaxis Heparin Attestations Medical Necessity Statement*: Anticipating discharge back to [facility] after IV fluid resuscitation within 48 hours Time Spent in Patient Care: 35mins Coding Level of Care Code Acute Four Roll Calender Operator for Brandy Sanchez Diagnoses Acute worsening of stage 3 chronic kidney disease N18.30 Dehydration E86.0 Anorexia R63.0 Declining functional status R53.81
[2020-07-23 02:38] LABS: Add Urine Microscopic? YES; Bilirubin Urine Neg (Negative); Blood Urine 2+ (Negative); Glucose Urine UA Norm (Normal); Ketones Urine Negative (Negative); Leukocyte Esterase Urine 2+ (Negative); Nitrate Urine Negative (Negative); Protein Urine 2+ (Negative); Specific Gravity, Urine 1.005 (1.005-1.030); Urine Appearance Clear (CLEAR); Urine Color Colorless (Yellow); Urobilinogen Urine Norm (Negative); pH Urine 6.5 (5-7)
[2020-07-23 02:39] LABS: Add Urine Culture? Yes; Bacteria Urine 1+ /hpf; RBC Urine 0-4 /hpf (0-2); Squamous Epithelial Cell Urine 0-4 /hpf (0-5); WBC Urine >100 /hpf (0-5)
[2020-07-23] MEDS: heparin 5,000 unit/mL INJ 1 mL 5000 UNIT SUBCUT ×3 (02:55→18:28)
[2020-07-23] MEDS: sodium chloride 0.9% 1,000 ML 75 ML IV (02:56)
[2020-07-23 06:49] LABS: Glucose Point of Care 100 mg/dL (70-110)
[2020-07-23 06:52] LABS: Anion Gap 17.5 (5-19); Calcium 8.4 mg/dL (8.5-10.5); Carbon Dioxide 22 mmol/L (22-29); Chloride 103 mmol/L (98-107); Glucose 101 mg/dL (65-115); Osmolality Calculated 313 mOsm/kg (285-295); Potassium 4.5 mmol/L (3.5-5.1); Sodium 138 mmol/L (136-145)
[2020-07-23 07:17] LABS: Blood Urea Nitrogen 87 mg/dL (8-23)
--- NOTE | 2020-07-23 09:26 | CT_ITS ---
WS: [id number] CT ABDOMEN AND PELVIS NONCONTRAST HISTORY: Evaluate for polynephritis. TECHNIQUE: Imaging performed through the abdomen and pelvis. Coronal and sagittal reformats are submi tted. All CT scans at [facility] use at least one of these dose optimization techniques: automated exposure control; mA and/or kV adjustment per patient size (includes targeted exams where d ose is matched to clinical indication); or iterative reconstruction. DLP: 1346.75 mGy.cm COMPARISON: 09/24/2019 Lower thorax: Dependent changes at the LEFT lung base. Chronic emphysema. Mild cardiomegaly. Liver: Normal size liver. No mass or bile duct dilatation. Gallbladder: Cholelithiasis in a nondistended gallbladder. No bile duct dilatation. Pancreas: Normal size and attenuation. Normal pancreatic duct. No pancreatitis or mass. Spleen: Normal. Adrenal glands: Normal. No mass. Right kidney: Mild perinephric stranding. No obstruction. Left kidney: Mild perinephric stranding with no obstruction or enlargement. Aorta: Mild atherosclerosis abdominal aorta with no aneurysm. No free fluid, intraperitoneal air or significant lymphadenopathy. GI tract: Diffuse constipation. The appendix is not definitely visualized. No GI tract obstruction. Abdominal wall: Negative. No hernia. Pelvis: Well-distended urinary bladder. There is very mild thickening of the posterior urinary bladde r wall to side of the prostate. No adenopathy or ascites. Osseous structures: Osteopenia with increased lumbar lordosis. CT/CT abdomen pelvis wo con [id number] IMPRESSION: 1. Bilateral renal atrophy with mild perinephric stranding. Perinephric strand ing around the LEFT kidney is slightly more pronounced than on the study of 09/14. Mild pyelonephritis may be present. There is no obstruction. Cannot chiquis luate for abnormal enhancement without IV contrast. 2. Cholelithiasis in a nondistended gallbladder. 3. No bile duct dilatation. 4. Mild diffuse constipation.
[2020-07-23] MEDS: sennosides-docusate Tablet 1 TAB PO (10:31)
[2020-07-23 11:11] LABS: Glucose Point of Care 109 mg/dL (70-110)
--- NOTE | 2020-07-23 12:19 | P.PN_ITS ---
Subjective Subjective: Interval history: I examined patioent this morning, he is alert to person, place, and time, he follow all commands, he tells me he is here int hospital from the intermediate becuase my kidneys are bothering me, he denies any dyruia, or hematuria, no flank pain, but he tells me that the intermediate is worried about my kidneys. Patient was on comfort care at the intermediate, he recently had an er visit for nstemi, but was sent home as he was on hospice and it was family wish that he remains comfortable and that no interventions be done. Patient does not remember being on comfort care. As he has worsening kidney function on CKD, he has a risk of dialysis, i asked him what his thoughts on diualsys were, he was not sure, and when i asked about his code status he was unsure. As per documentation patient was on comfort care, but he was improving, so family had transitioned him off comfort care/hospice. I will speak to intermediate and family to confirm this Vitals/I&O/Wt Last Vital Signs Temp 98.6 F 07/23/20 11:54 Pulse 69 07/23/20 11:54 Resp 17 07/23/20 11:54 BP 178/78 07/23/20 11:54 Pulse Ox 96 07/23/20 11:54 07/22/20 07/23/20 07/23/20 22:59 06:59 14:59 Intake Total 1000 / 1000 340 / 340 Output Total 0 / 0 Balance 1000 / 1000 340 / 340 Weight last 48 hrs Weight 85.729 kg Physical Exam Const: COMMON NORMALS: no acute distress and patient oriented x3 HENMT: COMMON NORMALS: normocephalic HEAD & SCALP: normocephalic Neck/C-Spine: COMMON NORMALS: no JVD Resp: COMMON NORMALS: normal respiratory effort, No retractions, No use of a ccessory muscles and clear to auscultation bilaterally AUSCULTATION: clear to auscultation bilaterally Cardio: COMMON NORMALS: no JVD, regular rate, regular rhythm, S1 normal heart sound present and S2 normal heart sound present RATE: regular rate RHYTHM: regular rhythm HEART SOUNDS: S1 normal heart sound present and S2 normal heart sound present GI: COMMON NORMALS: Normal to inspection, nondistended, normoactive bowel sounds present, Soft to palpation, non-tender, No hepatosplenomegaly present, no masses and no bruits PALPATION: Yes Soft to palpation and Yes No hepatosplenomegaly present Extremity: COMMON NORMALS: no calf tenderness and no pedal edema NARRATIVE EXTREMITY EXAM: R BKA Neuro: COMMON NORMALS: patient oriented x3 Psych: COMMON NORMALS: mental status grossly normal Data : 07/22/20 23:34 07/23/20 05:25 A&P Assessment and plan (1) Acute worsening of stage 3 chronic kidney disease: Status: Acute (2) Dehydration: Status: Acute (3) Anorexia: Status: Acute (4) Declining functional status: Status: Acute (5) Encephalopathy: UREMIC Status: Acute (6) CHF (congestive heart failure): Status: Acute Additional A&P Information Acute on chronic kidney disease stage III BUN/cr at SD was 85/2.2 patient family wants him to be evaluated by nephrology for interventions, but no decision have been made on dialysis This seems secondary to dehydration however he has history of ESBL UTI UA indicative of UTI, will get Bcx, Ct abdomen/pelvis evaluate for stone and/or pyelonephritis Hold nephrotoxic agents Keep him on normal saline maintenance fluid, monitor for fluid overload Patient does endorse anorexia and seems to have poor functional status, will add mirtazapine Patient is denying vomiting and diarrhea most likely source of dehydration is poor p.o. intake TSH within normal limits Uremic encephalopathy: secondary to renal failure, will monitor consult nephro Mildly reduced EF heart failure with diastolic component without acute exacerbation Had a NSTEMI a few months ago, sent home as he was on comfort care and patient family didnot want interventions But as Hospice/Comfort care has been rescinded, will do echo Patient was discharged in June on Keppra, Augmentin(for aspiration pneumonia) and comfort care measures back to [facility] Type 2 diabetes: Moderate sliding scale History of seizures: No breakthrough seizure episodes, continue Keppra 500 mg twice daily Hospice: January had osteomyelitis, severe diabetic infection, worsening clinical status, they thought he might deteriorate, so his family and brother (DPOA) made him comfort care, but patient started sanjiv improve, started to eat bettter so they recently took him off comfort care HPOA [phone] Goals of care: DNR/DNI, according to intermediate Cardiac diet DVT prophylaxis Heparin Attestations Medical Necessity Statement*: patient requires hospitalization for worsening CKD, possible ESBL UTI, Dehydration Coding Level of Care Code Acute Patient Observation Assistant for Chg Fwd Diagnoses Acute worsening of stage 3 chronic kidney disease N18.30 Dehydration E86.0 Anorexia R63.0 Declining functional status R53.81 Encephalopathy G93.40 CHF (congestive heart failure) I50.9
--- NOTE | 2020-07-23 12:19 | USCV_ITS ---
Moy Fernandez Age: 70 Gender: M : 1950 Exam Date: 07/23/2020 13:36 Ordering Phys: Hira Ruiz MD Technologist: Rosalee Hansen Exam Location: [facility] [place] Indication: SOB BP: / HR: 70 Rhythm: Sinus Technical Quality: Adequate MEASUREMENTS (Male / Female) Normal Values 2D ECHO LV Diastolic Diameter PLAX 4.9 cm 4.2 - 5.9 / 3.9 - 5.3 cm LV Systolic Diameter PLAX 3.9 cm LV Chamber Size 5.1 cm IVS Diastolic Thickness 1.1 cm 0.6 - 1.0 / 0.6 - 0.9 cm IVS Systolic Thickness 1.2 cm LVPW Diastolic Thickness 1.7 cm 0.6 - 1.0 / 0.6 - 0.9 cm LVPW Systolic Thickness 2.5 cm RV Chamber Size 2.5 cm LVOT Diameter 2.0 cm LV Ejection Fraction 2D Teich 42.2 % LV Ejection Fraction MOD 2C 55.0 % LV Ejection Fraction 2C AL 56.3 % LA Diameter 3.5 cm LA Width 3.8 cm LA Height 5.3 cm RA Width 3.2 cm RA Height 5.8 cm Aorta at Sinotubular Diameter 3.8 cm M-MODE LV Diastolic Diameter MM 5.7 cm 4.2 - 5.9 / 3.9 - 5.3 cm LV Systolic Diameter MM 4.6 cm LV Ejection Fraction MM Teich 39.0 % IVS Diastolic Thickness MM 1.7 cm 0.6 - 1.0 / 0.6 - 0.9 cm IVS Systolic Thickness MM 1.7 cm LVPW Diastolic Thickness MM 1.3 cm 0.6 - 1.0 / 0.6 - 0.9 cm LVPW Systolic Thickness MM 1.6 cm Aortic Annulus Diameter 3.8 cm LA Ao Ratio MM 1.0 MV E Point Septal Separation 2.2 cm DOPPLER AV Peak Velocity 136.0 cm/s LVOT Peak Velocity 94.0 cm/s AV Area Cont Eq vti 2.0 cm squared AV Area Cont Eq pk 2.3 cm squared MV Area PHT 8.1 cm squared Mitral E to A Ratio 0.6 MV E' Velocity 42.0 cm/s Mitral E to MV E' Ratio 10.4 Mitral E to LV E' Lateral Ratio 8.1 Mitral E to LV E' Septal Ratio 14.7 TR Peak Velocity 229.5 cm/s TR Peak Gradient 21.1 mmHg TV Peak E Velocity 75.0 cm/s Right Atrial Pressure 3.0 mmHg Pulmonary Artery Systolic Pressu 24.1 mmHg PV Peak Velocity 94.0 cm/s RV Acceleration Time 0.2 s RV Ejection Time 0.4 s RV AcT/ET 0.4 FINDINGS Left Ventricle Normal left ventricular size. LV systolic function is moderately reduced with EF of 35-40% . Mild global hypokinesis with moderate hypokinesis of anteroseptal, inferoseptal. Grade 1 diastolic dysfunction Right Ventricle The right ventricle is normal in size and function. Right Atrium The right atrium is normal in size. Left Atrium The left atrium is enlarged Mitral Valve Structurally normal mitral valve without significant stenosis or prolapse. There is mild mitral regurgitation. Aortic Valve Structurally normal aortic valve without significant sclerosis or stenosis. There is no aortic regurgitation. Tricuspid Valve Structurally normal tricuspid valve without significant stenosis or regurgitation. Insufficient TR jet to calculate RVSP Pulmonic Valve Structurally normal pulmonic valve without significant stenosis. There is no pulmonic regurgitation. Pericardium Normal pericardium without effusion. Aorta Normal ascending aorta dimension. CONCLUSIONS LV systolic function is mild to moderately reduced with EF of 35-40%. Above mentioned wall motion abnormalities Grade 1 diastolic dysfunction Left atrium is enlarged There is mild mitral regurgitation Compared to prior echocardiogram from 09/27/2020, LV systolic has slightly decreased further Sebastian West MD (Electronically Signed) Final Date: 23 July 2020 19:56 S
--- NOTE | 2020-07-23 12:41 | US_ITS ---
WS: [id number] RENAL ULTRASOUND HISTORY: trent COMPARISON: 02/04/2020 TECHNIQUE: 2-D and color Doppler imaging of the kidney submitted. Right kidney: 10.6 cm x 5.2 cm x 6.4 cm. Normal size kidney with increased echogenicity. No obstruction or mass. Left kidney: 11.8 cm x 5.4 cm x 5.2 cm. Normal size kidney with increased echogenicity. No mass or obstruction. Aorta: Normal. Urinary Bladder: Normal distention. US/US renal BI* [id number] IMPRESSION: Mild chronic medical renal disease. No obstruction.
--- NOTE | 2020-07-23 13:12 | PC.NURSE ---
Patient is refusing a hernández catheter at this time. States I dont have any problems using the bathroom. This RN will notify patient care nurse.
--- NOTE | 2020-07-23 13:31 | PC.CHAP ---
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 die casting machine operator visit [] Patient/Family/Request visit [] Outpatient visit [] Follow-up visit [] Physician referral [] Code/Alert [] Routine visit [] Staff referral [] Actively dying [xx] Patient sleeping [] Family support [] [] Out of room [] Palliative care [] [] Receiving care in room [] Pre-surgical visit [] Trauma [] Long length of stay [] ICU visit [] Other: Relational/Emotional Strength [] Patient feels connected with others/family/visitors/staff [] Distress [] Loneliness/isolation [] Abandonment Spirituality of Patient [] Person of Ghislaine [] Attends Yazidi of their Ghislaine [] Believes in Prayer [] Reads Bible or Temple materials [] There are Spiritual issues to be addressed Web Design Instructor Interventions [] Prayer [] Active listening [] Non-anxious presence [] Spiritual/emotional support [] Crisis/trauma care [] Spiritual counseling [] Bereavement support [] Provided bereavement packet [] Provided Bible/devotional materials [] Provided toy/stuffed animal, coloring book to patient or family member [] Provided Communion [] Anointing/[place] [] Salvation [] Completed spiritual assessment [] Other: Impact on Illness or Injury [] Angry [] Fearful [] Anxious [] Often cries [] Exhaustion [] Unable to work [] Unable to attend restoration [] Unable to walk/stand [] Unable to read [] Unable to drive [] Unable to eat/drink [] Unable to sleep [] Unable to be with family [] Patient intubated [] Other: Summary Follow up needed Time spent with patient 1 minute
[2020-07-23] MEDS: morphine 4 mg/mL SDV 1 mL 2 MG IVP ×2 (13:47→18:26)
[2020-07-23 14:18] LABS: Estmated Average Glucose 114; Hemoglobin A1C 5.6 % (4.0-6.0)
[2020-07-23 16:40] LABS: Creatinine Urine, Random 30 mg/dL (39-259); Potassium, Radom Urine 22 mmol/L; Urine Creatinine 32 mg/dL (39-259); Urine Random Chloride 55 mmol/L; Urine Random Sodium 76 mmol/L
[2020-07-23 16:49] LABS: Urine Protein Random 168 mg/dL
[2020-07-23 16:58] LABS: Microalbum Creatinine Ratio Ur 2900 mg/dL (0-20); Microalbumin Random Urine 87 ug/dL (0-20)
[2020-07-23 17:01] LABS: Glucose Point of Care 142 mg/dL (70-110)
--- NOTE | 2020-07-23 17:29 | P.CONIM_ITS ---
Providers/Reason For Consult Consulting Physican/Specialty*: Nephrology Reason for Consult*: Eval for DOROTEO on CKD Attending Physician: Hira Ruiz MD Primary Care Provider: Sajan Jack Jr, MD History of Present Illness History of Present Illness Thank you for consultation, today had the pleasure of reviewing this 81-year-old 70 year old man for eval of DOROTEO He [facility] due to outpatient labs which demonstrated acute kidney injury with a creatinine that was up to 4.9 mg/dL. Over the last few days he has not been eating or drinking well, losing weight. On my interview, he actually feels well and wants to go home. It is noted that he was recently on hospice, however, he has made somewhat of a improvement in his health, his family now revoked hospice and he wants ongoing active treatment. Initial imaging revealed perinephric stranding around the left kidney consistent with pyelonephritis for which he is receiving Primaxin. Yesterday on admission serum creatinine was 5.2, it is actually improved down to 4.7 after receiving some gentle IV hydration. He denies any obstructive symptoms. He does have significant lower extremity edema. I do see in his medical history that he has a history of heart failure with ejection fraction of 35% as measured in May 2018. On examination no he has shows no overt evidence of elevated JVP and he is breathing comfortably on room air. Review of Systems Narrative: ROS - 12 point review of systems completed per HPI and subjective assessment, this includes Constitutional: No weakness, fatigue Respiratory: No SOB on exertion, comfortable at rest CardioVasc: No chest pain, palpitations Gastrointestinal: No nausea, no vomiting Neurological: No seizures, no AMS Derm: No new rashes, lesions or wounds Immunological: No seasonal and no food allergies Meds/Allergies Home Medications and Allergies Home Medications Medication Instructions Recorded Confirmed Last Taken Type acetaminophen 650 mg PO Q4H PRN 02/14/20 07/23/20 02/06/20 History ondansetron HCl [Zofran] 4 mg PO Q6H PRN 02/14/20 07/23/20 02/13/20 08:41 History atropine 1 % eye drops 1 drp OPHTHALMIC (EYE) BID 04/26/20 07/23/20 07/22/20 History ascorbic acid (vitamin C) [Vitamin 500 mg PO DAILY@0800 07/23/20 07/23/20 07/22/20 History C] bisacodyl 10 mg [place] DAILY PRN 07/23/20 07/23/20 Unknown History bumetanide 1 mg PO BID@08,20 07/23/20 07/23/20 07/22/20 History [id number]-NC-acetaminophen 1 packet PO Q4H PRN 07/23/20 07/23/20 07/22/20 History [Payton-Uvalda Plus Cold+Flu] hydrocodone-acetaminophen 1 tab PO BID PRN 07/23/20 07/23/20 07/22/20 History levetiracetam [Keppra] 500 mg PO BID@0700,2100 07/23/20 07/23/20 07/22/20 History pantoprazole 40 mg PO BID@06,18 07/23/20 07/23/20 07/22/20 History Allergies Allergy/AdvReac Type Severity Reaction Status Date / Time No Known Allergies Allergy Verified 04/26/20 14:54 Current Medications Current Medications Generic Name Dose Route Start Last Admin Trade Name Freq PRN Reason Stop Dose Admin Heparin Sodium (Beef Lung) 5,000 unit 07/23/20 02:30 07/23/20 10:31 Heparin 5,000 Unit/Ml Inj 1 Ml SUBCUT 5,000 unit Q8H YANELI Administration Imipenem/Cilastatin Sodium 250 100 mls @ 200 mls/hr 07/23/20 10:00 07/23/20 11:21 mg/ Sodium Chloride IV Infused Q12H YANELI Infusion Protocol Insulin Aspart 0 unit 07/23/20 08:00 07/23/20 12:38 Insulin Aspart 100 Unit/1 Ml SUBCUT Not Given WM&BEDTIME YANELI Protocol Morphine Sulfate 2 mg 07/23/20 02:31 07/23/20 13:47 Morphine 4 Mg/Ml Sdv 1 Ml IVP 2 mg Q4H PRN Administration SEVERE PAIN Senna/Docusate Sodium 1 tab 07/23/20 09:00 07/23/20 10:31 Sennosides-Docusate Tablet PO 1 tab DAILY YANELI Administration PFSH Acute PFSH: Medical History (Updated 07/23/20 @ 12:36 by Hira Ruiz MD) Atherosclerotic heart disease of [place] coronary artery without angina pectoris CHF (congestive heart failure) Chronic ulcer of ankle CKD (chronic kidney disease), stage III -known hx of CKD stage 3; baseline Cr is around 3.5-4 Combined systolic and diastolic congestive heart failure -has known hx of chronic combined systolic and diastolic CHF; no acute exacerbation currently -Echo (05/2018): EF=35% -stress testing in 05/2018 showing scarring with mild urmial-infarct ischemia in RCA territory Diabetes mellitus DNR (do not resuscitate) Elevated troponin level Hypertension Multilevel degenerative disc disease -has known hx of multilevel DJD, s/p spinal stimulator -hold opiates, sedating meds due to altered mental status -fall precautions -imaging reviewed, no acute findings Peripheral neuropathy Polyneuropathy in other diseases classified elsewhere Post-ictal state Rhabdomyolysis Seizure disorder Medical management Spinal cord stimulator status Spinal stenosis Type 2 diabetes mellitus Chronic medical management Surgical History S/P CABG x 3 S/P insertion of spinal cord stimulator Status post below knee amputation of right lower extremity Status post below-knee amputation Wound care per orders Family History Other Hyperlipidemia Hypertension Denies family history of Psychiatric illness Lung disease Social History Smoking and tobacco status: former smoker Alcohol intake: former Lives independently: No (Brother is his power of lawn mower operator, recently has had to be involved in more decisions) Housing: [facility] Current occupation: Living alone, he was discharged to home with home hospice Vitals/I&O/Wt Last Vital Signs Temp 97.8 F 07/23/20 15:17 Pulse 69 07/23/20 15:17 Resp 18 07/23/20 15:17 BP 164/66 07/23/20 15:17 Pulse Ox 97 07/23/20 15:17 07/23/20 07/23/20 07/23/20 06:59 14:59 22:59 Intake Total 1000 / 1000 340 / 340 Output Total 0 / 0 100 / 100 275 / 375 Balance 1000 / 1000 240 / 240 -275 / -35 Weight last 48 hrs Weight 85.729 kg Physical Exam Narrative: EXAM NARRATIVE: Constitutional: Awake, comfortable HEENT: Wet mucosa, no jvp, non icteric Lungs: Bilaterally clear without discernible wheeze, rales in all lung zones CVS: S1 S2, no murmurs Abdo: Soft, BS ok Ext 4: 1-2+ edema, peripheral perfusion with no cyanosis Neurological: Grossly non-focal Data Micro: Micro: Microbiology 07/23/20 13:42 Blood Culture - Pr eliminary Blood SPECIMEN [facility] 07/23/20 13:40 Blood Culture - Pr eliminary Blood SPECIMEN [facility] A&P Additional A&P Information 1. Acute kidney injury Baseline serum creatinine appears to be between 3.5 and 4 mg/dL he has a slight bump in his renal function yesterday which is already improved with gentle IV hydration. At this time I will stop IV hydration given his extremity edema and history of significant heart disease. I have encouraged him to continue to eat and drink well for the time being. I will also continue to defer diuretics As renal function is improving, he needs no additional diagnostic evaluation. Imaging is now completed which does not demonstrate any evidence of obstructive uropathy. No indication for hemodialysis at this time. Avoid usual nephrotoxic agents Strict I's and O's Dose medication for GFR less than 15 2. Chemistry. This looks very well balanced at this time, continue to monitoring hospitalization. 3. Pyelonephritis Currently receiving Primaxin urine culture is currently pending. It is noted that he has a history of ESBL E. coli. 4. Hemodynamics blood pressure is currently elevated. We will add hydralazine and stop his IV hydration. Thank you for consultation, as always it is a pleasure to follow these cases with you Dennis Carreon MD Nephrology [phone] Patient seen and examined via telemedicine, with the assistance of the bedside RN > 25 min spent in evaluation and mgmt of patient Consult Attestations Medical Necessity Statement: eval for Doroteo Coding Level of Care Code Acute V Belt Inspector for Brandy Sanchez
[2020-07-23 18:08] LABS: Eosinophil Urine No Eosinophils Seen; Urine Eosinophil Count 0 (0-0)
[2020-07-23] MEDS: hyDRALAzine 50 mg Tablet PO ×2 (18:28→21:04)
[2020-07-23 20:28] LABS: Glucose Point of Care 174 mg/dL (70-110)
[2020-07-23] MEDS: mirtazapine 15 mg Tablet PO (21:04)
[2020-07-24] VITALS (9 sets, daily range): BP systolic 127–181; BP diastolic 64–82; PULSE 53–84; RESP 16–20; TEMP 36.1–36.9; O2SAT 92–99
[2020-07-24] MEDS: heparin 5,000 unit/mL INJ 1 mL 5000 UNIT SUBCUT ×2 (03:07→10:17)
[2020-07-24 06:37] LABS: Glucose Point of Care 104 mg/dL (70-110)
[2020-07-24 07:32] LABS: Basophils # 0.1 10^3/uL (0.0-0.1); Basophils % 0.7 %; Eosinophils # 0.6 10^3/uL (0.0-0.8); Eosinophils % 7.4 %; Hematocrit 29.4 % (42.0-52.0); Hemoglobin 9.5 g/dL (11.7-16.6); Lymphocytes # 1.4 10^3/uL (0.8-4.8); Lymphocytes % 18.8 %; Mean Corpuscular HGB Conc 32.3 g/dL (30.0-36.0); Mean Corpuscular Volume 89.6 fL (80-94); Mean Platelet Volume 9.3 fL (7.4-10.4); Monocytes # 0.6 10^3/uL (0.2-0.9); Monocytes % 7.7 %; Neutrophils # 4.92 10^3/uL (1.8-7.7); Nucleated Red Blood Cells % 0 %; Platelet Count 196 10^3/cmm (130-400); Red Blood Count 3.28 10^6/uL (4.1-5.3); Red Cell Distribution Width 15.6 % (12.1-15.1); White Blood Count 7.6 10^3/uL (4.0-10.0)
[2020-07-24 08:20] LABS: Alanine Aminotransferase 12 U/L (0-41); Alkaline Phosphatase 50 IU/L (40-130); Anion Gap 17.7 (5-19); Aspartate Amino Transferase 10 U/L (0-40); Calcium 8.5 mg/dL (8.5-10.5); Carbon Dioxide 20 mmol/L (22-29); Chloride 105 mmol/L (98-107); Globulin 3.1 g/dL (1.3-4.6); Glucose 91 mg/dL (65-115); Magnesium 1.7 mg/dL (1.7-2.3); Osmolality Calculated 311 mOsm/kg (285-295); Phosphorus 5.1 mg/dL (2.5-4.5); Potassium 4.7 mmol/L (3.5-5.1); Sodium 138 mmol/L (136-145); Total Bilirubin 0.2 mg/dL (0.15-1.2); Total Protein 6.1 g/dL (6.6-8.7)
[2020-07-24 08:43] LABS: Blood Urea Nitrogen 85 mg/dL (8-23)
--- NOTE | 2020-07-24 09:30 | ECG_ITS ---
[facility] ED Test Date: 2020-07-24 Pat Name: Moy Fernandez Department: Room: 254 Gender: Male Claim Investigator: : 1950 Requested By: Hira Ruiz Order Number: [id number] Hal MD: Lashay Knapp M.D. Measurements Intervals [place] Rate: 60 P: 90 [place]: 136 QRS: -17 QRSD: 114 T: 109 QT: 452 QTc: 453 Interpretive Statements SINUS RHYTHM LEFT VENTRICULAR HYPERTROPHY AND ST-T CHANGE [VOLTAGE CRITERIA PLUS ST/T ABNORMALITY] Compared to ECG 06/26/2020 23:40:40 ST (T wave) deviation now present Sinus tachycardia no longer present T-wave abnormality no longer present Electronically Signed On 08-01-2020 10:47:10 CDT by Lashay Knapp M.D. [id number]
[2020-07-24] MEDS: metoprolol tartrate 25 mg Tablet PO ×2 (10:19→21:09)
[2020-07-24 10:39] LABS: Troponin(5th) Baseline 214 ng/L (0-15)
[2020-07-24 10:43] LABS: NT Pro B Type Natriuretic Pept 15714 pg/mL (0-125)
[2020-07-24] MEDS: sennosides-docusate Tablet 1 TAB PO (10:47)
[2020-07-24] MEDS: clopidogrel 75 mg Tablet PO (10:47)
[2020-07-24] MEDS: aspirin 81 mg EC Tablet PO (10:48)
[2020-07-24] MEDS: isosorbide mononitrate ER 30 mg Tablet PO (10:49)
--- NOTE | 2020-07-24 10:55 | P.PN_ITS ---
Subjective Subjective: Interval history: Feels ok, keen to leave the hospital. Some LE edema but no SOB at rest. No overt uremic Sx. Seems to be passing his urine well, emptying his bladder. Vitals/I&O/Wt Last Vital Signs Temp 97.9 F 07/24/20 07:54 Pulse 68 07/24/20 07:54 Resp 18 07/24/20 07:54 BP 163/77 07/24/20 07:54 Pulse Ox 94 07/24/20 07:54 07/23/20 07/24/20 07/24/20 22:59 06:59 14:59 Intake Total 1340 / 1680 400 / 2080 240 / 240 Output Total 675 / 775 1390 / 2165 Balance 665 / 905 -990 / -85 240 / 240 Weight last 48 hrs Weight 85.729 kg Physical Exam Narrative: EXAM NARRATIVE: Constitutional: Awake, comfortable HEENT: Wet mucosa, no jvp, non icteric Lungs: Bilaterally clear without discernible wheeze, rales in all lung zones CVS: S1 S2, no murmurs Abdo: Soft, BS ok Ext 4: 1-2+ edema, peripheral perfusion with no cyanosis Neurological: Grossly non-focal Data : 07/24/20 07:05 07/24/20 07:05 Micro: Microbiology 07/23/20 02:13 Urine Culture - Preliminary Urine,Clean Catch Gram Negative Rods 07/23/20 13:42 Blood Culture - Preliminary Blood SPECIMEN COLLECTED 07/23/20 13:40 Blood Culture - Preliminary Blood SPECIMEN COLLECTED A&P Additional A&P Information 1. Acute kidney injury Creatinine continues to improve Baseline serum creatinine appears to be between 3.5 and 4 mg/dL he has a slight bump in his renal function yesterday which is already improved with gentle IV hydration. Continue to defer diuretics or ivf at this time I have encouraged him to continue to eat and drink well for the time being. I will also continue to defer diuretics As renal function is improving, he needs no additional diagnostic evaluation. Imaging is now completed which does not demonstrate any evidence of obstructive uropathy. No indication for hemodialysis at this time. Avoid usual nephrotoxic agents Strict I's and O's Dose medication for GFR less than 15 2. Chemistry. Minro non-critical aberration (ie mild acidosis) continue to monitoring hospitalization. 3. Pyelonephritis Currently receiving Primaxin urine culture is currently pending. It is noted that he has a history of ESBL E. coli and now has GNRs in his urine. 4. Hemodynamics blood pressure is currently elevated., resume hydralazine Thank you for consultation, as always it is a pleasure to follow these cases with you Dennis Carreon MD Nephrology [phone] Patient seen and examined via telemedicine, with the assistance of the bedside RN > 25 min spent in evaluation and mgmt of patient Attestations Medical Necessity Statement*: eval for trent on ckd Coding Level of Care Code Acute Development Geologist for Brandy Sanchez
[2020-07-24 11:04] LABS: Glucose Point of Care 167 mg/dL (70-110)
--- NOTE | 2020-07-24 11:30 | ECG_ITS ---
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 Measurements Intervals [place] Rate: 60 P: 14 SC: 149 QRS: -8 QRSD: 116 T: 116 QT: 471 QTc: 474 Interpretive Statements SINUS RHYTHM WITH OCCASIONAL VENTRICULAR PREMATURE COMPLEXES LEFT VENTRICULAR HYPERTROPHY AND ST-T CHANGE [VOLTAGE CRITERIA PLUS ST/T ABNORMALITY] Compared to ECG 07/24/2020 10:50:50 Ventricular premature complex(es) now present ST (T wave) deviation still present Electronically Signed On 08-01-2020 10:59:38 CDT by Lashay Knapp M.D. [id number]
[2020-07-24] MEDS: enoxaparin 100 mg/mL Syringe 90 MG SUBCUT (12:46)
[2020-07-24 13:43] LABS: Troponin 5 6HR 238.7 ng/L (0-15); Troponin 5 6HR Delta 24.7 ng/L (0-12)
--- NOTE | 2020-07-24 14:36 | PM.PN ---
Subjective Subjective: Interval history: -I had an extensive discussion with patient this morning: -He is alert oriented x3, follows all commands, answers all questions appropriately -I advised him that that currently there is significant concerns of ischemic cardiomyopathy, his ejection fraction is declined to 30 to 35%, he has significant wall motion abnormalities, troponin elevation, he is either undergone or is undergoing a significant cardiovascular event -Options I offered to him was continuing medical intervention versus pursuing cardiac intervention -The risk of pursuing cardiac intervention include AL stroke, stroke and it for his case specifically significant increased risk of acute renal failure proceeding to dialysis -There is the significant likelihood that if he were to undergo coronary angiogram he would end up on dialysis -In addition in terms of his CKD, he does have a UTI with pyelonephritis at this time -But does have chronic kidney disease underlying secondary to hypertension type 2 diabetes which has been worsening -Certainly right now he is not a candidate for dialysis, but should have outpatient follow-up with nephrology -As inpatient in terms the CKD there is nothing acute that we need to do unless he needs dialysis, currently he does not require it -Patient tells me that he wants to think, but for now he wants to do everything that he can -In terms of his CODE STATUS, I went over this with him multiple times, he wants to be a full code -I went over patient's case with his daughter, Eduarda Fernandez, she lives out in [place], she used to have healthcare power of insurance attorney, but was taken off of it, she tells me that she is seeing her father become ill many times, she tells me that it is ultimately up to him what he wants to do -I have tried to reach out to Sajan Fernandez multiple times, patient's brother, I have left messages, he is his healthcare power of insurance attorney, but have not heard back from him Vitals/I&O/Wt Last Vital Signs Temp 97.0 F L 07/24/20 12:00 Pulse 62 07/24/20 12:00 Resp 18 07/24/20 12:00 BP 181/82 07/24/20 12:00 Pulse Ox 99 07/24/20 12:00 07/23/20 07/24/20 07/24/20 22:59 06:59 14:59 Intake Total 1340 / 1680 400 / 2080 340 / 340 Output Total 675 / 775 1390 / 2165 Balance 665 / 905 -990 / -85 340 / 340 Weight last 48 hrs Weight 85.729 kg Physical Exam Const: COMMON NORMALS: no acute distress and patient oriented x3 HENMT: COMMON NORMALS: normocephalic HEAD & SCALP: normocephalic Neck/C-Spine: COMMON NORMALS: no JVD Resp: COMMON NORMALS: normal respiratory effort, No retractions, No use of accessory muscles and clear to auscultation bilaterally AUSCULTATION: clear to auscultation bilaterally Cardio: COMMON NORMALS: no JVD, regular rate, regular rhythm, S1 normal heart sound present and S2 normal heart sound present RATE: regular rate RHYTHM: regular rhythm HEART SOUNDS: S1 normal heart sound present and S2 normal heart sound present GI: COMMON NORMALS: Normal to inspection, nondistended, normoactive bowel sounds present, Soft to palpation, non-tender, No hepatosplenomegaly present, no masses and no bruits PALPATION: Yes Soft to palpation and Yes No hepatosplenomegaly present Extremity: COMMON NORMALS: no calf tenderness and no pedal edema NARRATIVE EXTREMITY EXAM: R BKA Neuro: COMMON NORMALS: patient oriented x3 Psych: COMMON NORMALS: mental status grossly normal Data : 07/24/20 07:05 07/24/20 07:05 Micro: Microbiology 07/23/20 13:42 Blood Culture - Preliminary Blood NEGATIVE TO DATE 07/23/20 13:40 Blood Culture - Preliminary Blood NEGATIVE TO DATE 07/23/20 02:13 Urine Culture - Preliminary Urine,Clean Catch Gram Negative Rods A&P Assessment and plan (1) Acute worsening of stage 3 chronic kidney disease: Status: Acute (2) Dehydration: Status: Acute (3) Anorexia: Status: Acute (4) Declining functional status: Status: Acute (5) Encephalopathy: UREMIC Status: Acute (6) CHF (congestive heart failure): Status: Acute (7) NSTEMI (non-ST elevated myocardial infarction): Status: Acute (8) Ischemic cardiomyopathy: Status: Acute (9) Pyelonephritis of left kidney: Status: Acute Additional A&P Information Acute pyelonephritis left kidney, with urinary tract infection -We will hold off on fluid therapy -Follow urine cultures, blood cultures -Continue Primaxin Acute on chronic kidney disease stage III BUN/cr at DC was 85/2.2 patient family wants him to be evaluated by nephrology for interventions, patient wants to be evaluated for his CKD, but no decision has been made by patient or family on dialysis Acute worsening might have a component related to dehydration, and ESBL E. coli UTI with pyelonephritis UA indicative of UTI, will get Bcx, Ct abdomen/pelvis evaluate for stone and/or pyelonephritis Hold nephrotoxic agents Fluid therapy discontinued Patient does endorse anorexia and seems to have poor functional status, will add mirtazapine Patient is denying vomiting and diarrhea most likely source of dehydration is poor p.o. intake TSH within normal limits Uremic encephalopathy: Back to baseline, secondary to renal failure, NSTEMI with ischemic cardiomyopathy Had a NSTEMI a few months ago, sent home as he was on comfort care and patient family didnot want interventions, currently hospice/comfort care rescinded, full code Currently no chest pain 6-hour troponin 237.7, delta of 24.7 ST depressions in lateral leads Echocardiogram shows Normal left ventricular size. LV systolic function is moderately reduced with EF of 35-40% . Mild global hypokinesis with moderate hypokinesis of anteroseptal, inferoseptal. Grade 1 diastolic dysfunction Plan: -Start on aspirin, statin, Plavix, beta-jacky, Imdur, therapeutic Lovenox -Telemetry monitoring -Cardiology was consulted -Patient unsure currently of medical intervention versus coronary angiogram, wants to discuss with family and cardiology -Patient and family made aware that with coronary angiogram he does have significant risk of being placed on dialysis Type 2 diabetes: Moderate sliding scale History of seizures: Daughter tells me that he had grand mal seizures roughly a month ago, continue Keppra 500 mg twice daily, seizure precautions, aspiration precautions Hospice: January had osteomyelitis, severe diabetic infection, worsening clinical status, they thought he might deteriorate, so his family and brother (DPOA) made him comfort care, but patient started to improve he also had an episode of significant grand mal seizures a month ago daughter tells me that she thought he might pass away, but started to clinically improve, mentation improved, start to eat, was taken off comfort care HPOA [phone] Goals of care: I have confirmed with patient he is full code Cardiac diet DVT prophylaxis Lovenox Attestations Medical Necessity Statement*: Requires hospitalization inpatient, greater than 2 minutes, for NSTEMI, acute pyelonephritis, worsening CKD Coding Level of Care Code Acute Photographic Plate Maker for Chg 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
--- NOTE | 2020-07-24 15:30 | ECG_ITS ---
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 Measurements Intervals [place] Rate: 53 P: 107 NE: 137 QRS: 3 QRSD: 117 T: 124 QT: 487 QTc: 458 Interpretive Statements SINUS BRADYCARDIA WITH OCCASIONAL VENTRICULAR PREMATURE COMPLEXES LEFT VENTRICULAR HYPERTROPHY AND ST-T CHANGE [VOLTAGE CRITERIA PLUS ST/T ABNORMALITY] Compared to ECG 07/24/2020 12:51:56 Sinus rhythm no longer present ST (T wave) deviation still present Electronically Signed On 08-03-2020 12:51:35 CDT by Lashay Knapp M.D. [id number]
[2020-07-24 16:57] LABS: Glucose Point of Care 169 mg/dL (70-110)
[2020-07-24 18:18] LABS: Creatinine, Random Urine 31 mg/dL (20-320); Protein, Total, Random 181 mg/dL (5-25); Protein/Creatinine Ratio 5.839 (0.022-0.128); Protein/Creatinine Ratio 5839 mg/g creat (22-128)
--- NOTE | 2020-07-24 18:23 | PC.NURSE ---
patient was willing to get heparin shot and then lovenox shot when orders were changed ,but was unwilling to have insulin administered when it was necessary due to sliding scale today. patient stated I don't want poked for 2 units .
[2020-07-24 20:26] LABS: Glucose Point of Care 146 mg/dL (70-110)
[2020-07-24] MEDS: atorvastatin 40 mg Tablet PO (20:27)
[2020-07-24] MEDS: mirtazapine 15 mg Tablet PO (20:27)
[2020-07-24] MEDS: acetaminophen 325 mg Tablet 650 MG PO (20:36)
--- NOTE | 2020-07-24 21:30 | PM.CONSULT ---
Providers/Reason For Consult Consulting Physican/Specialty*: Sebastian West MD/ Cardiology Reason for Consult*: Troponin elevation Requesting Physcian: Hira Ruiz MD Attending Physician: Hira Ruiz MD Primary Care Provider: Sajan Jack Jr, MD History of Present Illness History of Present Illness Moy Fernandez is a 70 year old male with a history of combined systolic and diastolic congestive heart failure, EF in 1999 35%, but improved to 45% with grade 1 diastolic dysfunction on most recent echo in September 2019. Other history is significant for chronic kidney disease stage III, HTN, seizure disorder, CAD status post CABG, DJD and chronic pain, history of spinal cord stimulator implantation. He came from alf with complaints of not being able to eat well. Patient has significant chronic kidney disease. There is consideration of starting dialysis. He had a recent NSTEMI for which no invasive measures were taken because patient was made comfort care after BKA. However he has decided to be taken off of comfort care measures. Cardiology was consulted as patient's troponins were elevated on admission. He denies active chest pain however says at alf he had on and off chest pain recently. His initial troponin was more than 200. EKG did not have ischemic changes on it. Review of Systems Narrative: ROS - 12 point review of systems completed per HPI and subjective assessment, this includes Constitutional: No weakness, fatigue Respiratory: No SOB on exertion, comfortable at rest CardioVasc: No chest pain, palpitations Gastrointestinal: No nausea, no vomiting Neurological: No seizures, no AMS Derm: No new rashes, lesions or wounds Immunological: No seasonal and no food allergies Meds/Allergies Home Medications and Allergies Home Medications Medication Instructions Recorded Confirmed Last Taken Type acetaminophen 650 mg PO Q4H PRN 02/14/20 07/23/20 02/06/20 History ondansetron HCl [Zofran] 4 mg PO Q6H PRN 02/14/20 07/23/20 02/13/20 08:41 History atropine 1 % eye drops 1 drp OPHTHALMIC (EYE) BID 04/26/20 07/23/20 07/22/20 History ascorbic acid (vitamin C) [Vitamin 500 mg PO DAILY@0800 07/23/20 07/23/20 07/22/20 History C] bisacodyl 10 mg CO DAILY PRN 07/23/20 07/23/20 Unknown History bumetanide 1 mg PO BID@08,20 07/23/20 07/23/20 07/22/20 History qcujpisrm-NAA-IR-acetaminophen 1 packet PO Q4H PRN 07/23/20 07/23/20 07/22/20 History [[place] Plus Cold+Flu] hydrocodone-acetaminophen 1 tab PO BID PRN 07/23/20 07/23/20 07/22/20 History levetiracetam [Keppra] 500 mg PO BID@0700,2100 07/23/20 07/23/20 07/22/20 History pantoprazole 40 mg PO BID@06,18 07/23/20 07/23/20 07/22/20 History Allergies Allergy/AdvReac Type Severity Reaction Status Date / Time No Known Allergies Allergy Verified 04/26/20 14:54 Current Medications Current Medications Generic Name Dose Route Start Last Admin Trade Name Freq PRN Reason Stop Dose Admin Acetaminophen 650 mg 07/23/20 02:30 07/24/20 20:36 Acetaminophen 325 Mg Tablet PO 650 mg Q6H PRN Administration Pain Aspirin 81 mg 07/24/20 09:30 07/24/20 10:48 Aspirin 81 Mg Ec Tablet PO 81 mg DAILY YANELI Administration Atorvastatin Calcium 40 mg 07/24/20 21:00 07/24/20 20:27 Atorvastatin 40 Mg Tablet PO 40 mg BEDTIME YANELI Administration Clopidogrel Bisulfate 75 mg 07/24/20 09:30 07/24/20 10:47 Clopidogrel 75 Mg Tablet PO 75 mg DAILY YANELI Administration Enoxaparin Sodium 90 mg 07/24/20 11:15 07/24/20 12:46 Enoxaparin 100 Mg/Ml Syringe 1 mg/kg (90 mg) 90 mg SUBCUT Administration Q24H YANELI Hydralazine HCl 50 mg 07/23/20 17:35 07/23/20 21:04 Hydralazine 50 Mg Tablet PO 50 mg TID YANELI Administration Imipenem/Cilastatin Sodium 250 100 mls @ 200 mls/hr 07/23/20 10:00 07/24/20 21:09 mg/ Sodium Chloride IV 200 mls/hr Q12H YANELI Administration Protocol Insulin Aspart 0 unit 07/23/20 08:00 07/24/20 20:28 Insulin Aspart 100 Unit/1 Ml SUBCUT Not Given WM&BEDTIME YANELI Protocol Isosorbide Mononitrate 30 mg 07/24/20 09:30 07/24/20 10:49 Isosorbide Mononitrate Er 30 Mg Tablet PO 30 mg DAILY YANELI Administration Metoprolol Tartrate 25 mg 07/24/20 09:30 07/24/20 21:09 Metoprolol Tartrate 25 Mg Tablet PO 25 mg Q12H YANELI Administration Mirtazapine 15 mg 07/23/20 21:00 07/24/20 20:27 Mirtazapine 15 Mg Tablet PO 15 mg BEDTIME YANELI Administration Senna/Docusate Sodium 1 tab 07/23/20 09:00 07/24/20 10:47 Sennosides-Docusate Tablet PO 1 tab DAILY YANELI Administration PFSH Acute PFSH: Medical History Atherosclerotic heart disease of [place] coronary artery without angina pectoris CHF (congestive heart failure) Chronic ulcer of ankle CKD (chronic kidney disease), stage III -known hx of CKD stage 3; baseline Cr is around 3.5-4 Combined systolic and diastolic congestive heart failure -has known hx of chronic combined systolic and diastolic CHF; no acute exacerbation currently -Echo (05/2018): EF=35% -stress testing in 05/2018 showing scarring with mild urmila-infarct ischemia in RCA territory Diabetes mellitus DNR (do not resuscitate) Elevated troponin level Hypertension Multilevel degenerative disc disease -has known hx of multilevel DJD, s/p spinal stimulator -hold opiates, sedating meds due to altered mental status -fall precautions -imaging reviewed, no acute findings Peripheral neuropathy Polyneuropathy in other diseases classified elsewhere Post-ictal state Rhabdomyolysis Seizure disorder Medical management Spinal cord stimulator status Spinal stenosis Type 2 diabetes mellitus Chronic medical management Surgical History S/P CABG x 3 S/P insertion of spinal cord stimulator Status post below knee amputation of right lower extremity Status post below-knee amputation Wound care per orders Family History Other Hyperlipidemia Hypertension Denies family history of Psychiatric illness Lung disease Social History Smoking and tobacco status: former smoker Alcohol intake: former Lives independently: No (Brother is his power of staff attorney, recently has had to be involved in more decisions) Housing: Senior Care Current occupation: Living alone, he was discharged to home with home hospice Vitals/I&O/Wt Last Vital Signs Temp 98.2 F 07/24/20 20:00 Pulse 56 L 07/24/20 20:00 Resp 19 H 07/24/20 20:00 BP 139/65 07/24/20 20:00 Pulse Ox 98 07/24/20 20:00 07/24/20 07/24/20 07/24/20 06:59 14:59 22:59 Intake Total 400 / 2080 340 / 340 240 / 580 Output Total 1390 / 2165 300 / 300 Balance -990 / -85 340 / 340 -60 / 280 Weight last 48 hrs Weight 189 lb Physical Exam Narrative: EXAM NARRATIVE: Const COMMON NORMALS: no acute distress and patient oriented x3 HENMT COMMON NORMALS: normocephalic HEAD & SCALP: normocephalic Neck/C-Spine COMMON NORMALS: no JVD Resp COMMON NORMALS: normal respiratory effort, No retractions, No use of accessory muscles and clear to auscultation bilaterally AUSCULTATION: clear to auscultation bilaterally Cardio COMMON NORMALS: no JVD, regular rate, regular rhythm, S1 normal heart sound present and S2 normal heart sound present RATE: regular rate RHYTHM: regular rhythm HEART SOUNDS: S1 normal heart sound present and S2 normal heart sound present GI COMMON NORMALS: Normal to inspection, nondistended, normoactive bowel sounds present, Soft to palpation, non-tender, No hepatosplenomegaly present, no masses and no bruits PALPATION: Yes Soft to palpation and Yes No hepatosplenomegaly present Extremity COMMON NORMALS: no calf tenderness and no pedal edema NARRATIVE EXTREMITY EXAM: R BKA, stump has slight erythema Neuro COMMON NORMALS: patient oriented x3 Psych COMMON NORMALS: mental status grossly normal Data Micro: Micro: Microbiology 07/23/20 13:42 Blood Culture - Pr eliminary Blood NEGATIVE TO LEONIDES E 07/23/20 13:40 Blood Culture - Pr eliminary Blood NEGATIVE TO LEONIDES E 07/23/20 02:13 Urine Culture - Pr eliminary Urine,Clean Catch Gram Negative R ods A&P Assessment and plan (1) Ischemic cardiomyopathy: Status: Acute (2) CHF (congestive heart failure): Status: Acute (3) Hypertension: Status: Chronic Qualifiers: Hypertension type: essential hypertension Qualified Code(s): I10 - Essential (primary) hypertension (4) CAD (coronary artery disease): Status: Chronic (5) Type 2 diabetes mellitus: Status: Chronic (6) Combined systolic and diastolic congestive heart failure: Status: Chronic Qualifiers: Heart failure chronicity: chronic Qualified Code(s): I50.42 - Chronic combined systolic (congestive) and diastolic (congestive) heart failure (7) Peripheral arterial disease: Status: Acute (8) Elevated troponin level: Status: Acute Patient has multiple medical comorbidities. Currently he has acute on chronic CKD. He had troponin elevation which likely is from type II [place] . NSTEMI is less likely. Given his significant kidney disease and lack of chest pain, we will recommend stress testing. If stress test is abnormal, we will need to have a discussion with the patient and family regarding any invasive procedures as performing coronary angiogram on this patient can lead to early dialysis. Continue aspirin and Plavix. Thank you for involving us with the care of this patient. Please call with questions we will continue to follow. 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
[2020-07-25] VITALS (10 sets, daily range): BP systolic 118–169; BP diastolic 54–74; PULSE 51–60; RESP 17–18; TEMP 36.4–36.7; O2SAT 94–97
[2020-07-25 06:29] LABS: Glucose Point of Care 90 mg/dL (70-110)
--- NOTE | 2020-07-25 08:44 | PM.PN ---
Subjective Subjective: Interval history: pt seen and sxamined. states he feels better. denies CP or SOB at rest. no n/v/f/c/lee/d. pt wants to go home. Medications: Reviewed: Yes Medication Review Details: Current Medications Acetaminophen (Acetaminophen 325 Mg Tablet) 650 mg PO Q6H PRN PRN Reason: Pain Last Admin: 07/24/20 20:36 Dose: 650 mg Documented by: Aspirin (Aspirin 81 Mg Ec Tablet) 81 mg PO DAILY [facility] Last Admin: 07/24/20 10:48 Dose: 81 mg Documented by: Atorvastatin Calcium (Atorvastatin 40 Mg Tablet) 40 mg PO BEDTIME YANELI Last Admin: 07/24/20 20:27 Dose: 40 mg Documented by: Clopidogrel Bisulfate (Clopidogrel 75 Mg Tablet) 75 mg PO DAILY YANELI Last Admin: 07/24/20 10:47 Dose: 75 mg Documented by: Dextrose (Dextrose 50% Syringe 50 Ml) 25 ml IVP ONCE PRN; Protocol PRN Reason: hypoglycemia protocol Dextrose (Dextrose 50% Syringe 50 Ml) 50 ml IVP PRN PRN; Protocol PRN Reason: hypoglycemia protocol Enoxaparin Sodium (Enoxaparin 100 Mg/Ml Syringe) 90 mg 1 mg/kg (90 mg) SUBCUT Q24H YANELI Last Admin: 07/24/20 12:46 Dose: 90 mg Documented by: Glucagon (Glucagon 1 Mg/Ml Inj 1 Ml) 1 mg IM ONCE PRN; Protocol PRN Reason: Adult Acute Hypoglycemia Prot. Hydralazine HCl (Hydralazine 50 Mg Tablet) 50 mg PO TID [facility] Last Admin: 07/23/20 21:04 Dose: 50 mg Documented by: Imipenem/Cilastatin Sodium 250 (mg/ Sodium Chloride) 100 mls @ 200 mls/hr IV Q12H [facility]; Protocol Last Infusion: 07/24/20 22:10 Dose: Infused Documented by: Insulin Aspart (Insulin Aspart 100 Unit/1 Ml) 0 unit SUBCUT WM&BEDTIME [facility]; Protocol Last Admin: 07/24/20 20:28 Dose: Not Given Documented by: Isosorbide Mononitrate (Isosorbide Mononitrate Er 30 Mg Tablet) 30 mg PO DAILY [facility] Last Admin: 07/24/20 10:49 Dose: 30 mg Documented by: Metoprolol Tartrate (Metoprolol Tartrate 25 Mg Tablet) 25 mg PO Q12H YANELI Last Admin: 07/24/20 21:09 Dose: 25 mg Documented by: Mirtazapine (Mirtazapine 15 Mg Tablet) 15 mg PO BEDTIME [facility] Last Admin: 07/24/20 20:27 Dose: 15 mg Documented by: Senna/Docusate Sodium (Sennosides-Docusate Tablet) 1 tab PO DAILY [facility] Last Admin: 07/24/20 10:47 Dose: 1 tab Documented by: Vitals/I&O/Wt Last Vital Signs Temp 97.7 F 07/25/20 07:51 Pulse 59 L 07/25/20 07:51 Resp 18 07/25/20 07:51 BP 165/74 07/25/20 07:51 Pulse Ox 94 07/25/20 07:51 07/24/20 07/25/20 07/25/20 22:59 06:59 14:59 Intake Total 460 / 800 240 / 1040 Output Total 300 / 300 100 / 400 Balance 160 / 500 140 / 640 Weight last 48 hrs Weight 85.729 kg Physical Exam Narrative: EXAM NARRATIVE: overweight in bed, NARd, not using oxygen BP elevated heent- nc/at, eomi, anicteric neck supple lung basal crackles heart RRR, +BARRY, s1, s2 abd soft, nt, nd, +BS ext 1+ b/l ankle edema neuro- a,a, o x 2 pulses weak DP and PT pulses Data : 07/24/20 07:05 07/24/20 07:05 Micro: Microbiology 07/23/20 02:13 Urine Culture - Final Urine,Clean Catch Escherichia coli esbl 07/23/20 13:42 Blood Culture - Preliminary Blood NEGATIVE TO DATE 07/23/20 13:40 Blood Culture - Preliminary Blood NEGATIVE TO DATE A&P Additional A&P Information 1. Acute kidney injury- cr down from 5.2 - 4.6 -high ur na noted -moniyot chemistries and uop 2. CKD stage 3b/4- b/l cr in NH was 2.2 Creatinine here between 2.9 and 5.4 mg/dl - likely DM and HTN nephrosclerosis 3. Pyelonephritis Currently receiving Primaxin urine culture is currently pending. It is noted that he has a history of ESBL E. coli and now has GNRs in his urine. 4. NSTEMI w/ ischemic CM- if needs cardiac cath- pt is at high renal risk for LUIS A and potentially needing temporary or permanent dialysis 5. DM care per medicine 6, anemia- repeat iron studies, and epo 7. Bone - mineral- metabolism of CKD- phos binder Patient seen and examined via telemedicine, with the assistance of the bedside RN > 25 min spent in evaluation and mgmt of patient Attestations Medical Necessity Statement*: DOROTEO on CKD, CHF, CAD Time Spent in Patient Care: 16 - 35 minutes Coding Level of Care Code Acute Head Of Digital Advertising & Integration for Brandy Sanchez
[2020-07-25 09:12] LABS: Basophils # 0.1 10^3/uL (0.0-0.1); Basophils % 1.2 %; Eosinophils # 0.7 10^3/uL (0.0-0.8); Eosinophils % 8.4 %; Hematocrit 31.6 % (42.0-52.0); Hemoglobin 10.3 g/dL (11.7-16.6); Lymphocytes # 1.7 10^3/uL (0.8-4.8); Lymphocytes % 22.3 %; Mean Corpuscular HGB Conc 32.6 g/dL (30.0-36.0); Mean Corpuscular Hemoglobin 29.4 pg (28.0-34.0); Mean Corpuscular Volume 90.3 fL (80-94); Mean Platelet Volume 9.5 fL (7.4-10.4); Monocytes # 0.5 10^3/uL (0.2-0.9); Monocytes % 6.6 %; Neutrophils # 4.75 10^3/uL (1.8-7.7); Nucleated Red Blood Cells % 0 %; Platelet Count 201 10^3/cmm (130-400); Red Cell Distribution Width 15.7 % (12.1-15.1); White Blood Count 7.8 10^3/uL (4.0-10.0)
[2020-07-25 09:44] LABS: Alanine Aminotransferase 12 U/L (0-41); Albumin Level 3.1 g/dL (3.5-5.2); Alkaline Phosphatase 48 IU/L (40-130); Anion Gap 19.2 (5-19); Aspartate Amino Transferase 12 U/L (0-40); Calcium 8.8 mg/dL (8.5-10.5); Carbon Dioxide 21 mmol/L (22-29); Chloride 105 mmol/L (98-107); Globulin 3.1 g/dL (1.3-4.6); Glucose 95 mg/dL (65-115); Magnesium 1.9 mg/dL (1.7-2.3); NT Pro B Type Natriuretic Pept 14478 pg/mL (0-125); Osmolality Calculated 318 mOsm/kg (285-295); Phosphorus 6.4 mg/dL (2.5-4.5); Potassium 5.2 mmol/L (3.5-5.1); Sodium 140 mmol/L (136-145); Total Bilirubin 0.2 mg/dL (0.15-1.2); Total Protein 6.2 g/dL (6.6-8.7)
[2020-07-25] MEDS: sennosides-docusate Tablet 1 TAB PO (09:52)
[2020-07-25] MEDS: isosorbide mononitrate ER 30 mg Tablet PO (09:53)
[2020-07-25] MEDS: aspirin 81 mg EC Tablet PO (09:53)
[2020-07-25] MEDS: clopidogrel 75 mg Tablet PO (09:53)
[2020-07-25] MEDS: acetaminophen 325 mg Tablet 650 MG PO ×2 (09:55→22:00)
[2020-07-25] MEDS: metoprolol tartrate 25 mg Tablet PO ×2 (09:55→22:00)
[2020-07-25 09:58] LABS: Blood Urea Nitrogen 92 mg/dL (8-23)
--- NOTE | 2020-07-25 10:08 | PC.CHAP ---
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 material crew supervisor visit [] Patient/Family/Request visit [] Outpatient visit [] Follow-up visit [] Physician referral [] Code/Alert [x] Routine visit [] Staff referral [] Actively dying [] Patient sleeping [] Family support [] [] Out of room [] Palliative care [] [] Receiving care in room [] Pre-surgical visit [] Trauma [] Long length of stay [] ICU visit [] Other: Relational/Emotional Strength [x] Patient feels connected with others/family/visitors/staff [] Distress [] Loneliness/isolation [] Abandonment Spirituality of Patient [] Person of Ghislaine [] Attends Shinto of their G[place]laine [] Believes in Prayer [] Reads Bible or Hinduism materials [x] There are Spiritual issues to be addressed Cotton Cleaner Interventions [] Prayer [x] Active listening [x] Non-anxious presence [x] Spiritual/emotional support [] Crisis/trauma care [] Spiritual counseling [] Bereavement support [] Provided bereavement packet [] Provided Bible/devotional materials [] Provided toy/stuffed animal, coloring book to patient or family member [] Provided Communion [] Anointing/[place] [] Salvation [x] Completed spiritual assessment [] Other: Impact on Illness or Injury [] Angry [] Fearful [] Anxious [] Often cries [] Exhaustion [] Unable to work [] Unable to attend zoroastrian [] Unable to walk/stand [] Unable to read [] Unable to drive [] Unable to eat/drink [] Unable to sleep [] Unable to be with family [] Patient intubated [] Other: Summary Pt was somewhat closed and resistive to talking a first. He is has a daughter and a brother who live in another state. Other family members are . He came to [place] about 12 years ago and lives alone. 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 Cotton Cleaner was able to open up some communication with PT regarding what he enjoys, hunting and fishing. Declined prayer Time spent with patient 10m
--- NOTE | 2020-07-25 11:11 | ECG_ITS ---
[facility] Test Date: 2020-07-26 Pat Name: Moy Fernandez Department: Room: 254 Gender: Male Piece Dyer: : 1950 Requested By: Hira Ruiz Order Number: [id number] Hal MD: Lashay Knapp M.D. Interpretive Statements NAME OF STUDY: LEXISCAN SESTAMIBI STRESS TEST INDICATION: Chest Pain PROCEDURE: At the baseline, the blood pressure was 155/71 mmHg, oxygen saturation 96% with a heart rate of 66 bpm. The electrocardiogram showed normal sinus rhythm, normal axis with possible old anteroseptal infarct. Possible old inferior infarct. The Lexiscan was infused over a period of 20 seconds. A total of 0.4 milligrams of Lexiscan was infused. The stress phase was continued for a total of 5 minutes. Heart rate at the end of the stress phase was 71 bpm, oxygen saturation 96% with a blood pressure of 97/48 mmHg. The EKG at the peak infusion revealed no significant ST-T wave changes. The study was terminated due to protocol completion. Sestamibi was injected 20 seconds after the Lexiscan infusion. Blood pressure at the end of the recovery phase was 127/54 mmHg, oxygen saturation 96% with a heart rate of 81 beats per minute. Isolated PVCs noted in recovery. CONCLUSION: 1. No significant EKG changes with the LexiScan infusion. 2. No LexiScan induced chest pain or cardiac arrhythmia. 3. Normal blood pressure and heart rate response. 4. Sestamibi/sestamibi perfusion scan pending; see separate report. Electronically Signed On 07-27-2020 13:03:58 CDT by Lashay Knapp M.D. [email or web address]
[2020-07-25 11:40] LABS: Glucose Point of Care 112 mg/dL (70-110)
--- NOTE | 2020-07-25 12:06 | P.PN_ITS ---
Subjective Subjective: Interval history: This morning patient was examined, no acute events overnight, he denies any chest pain, no shortness of breath, no lightheadedness, dizziness, is alert oriented x3, follows all commands, he is worried about his kidneys and worried about his heart, he told me that he spoke to his daughter last night, he tells me that his healthcare power of [employer] is currently in [facility], and is on the road, thus that is why we cannot reach him. I advised patient that our plan is to pursue a cardiac stress test tomorrow morning, and see what the stress test shows as the patient has history of CABG in the past, if the stress test is concerning and will have again an extensive discussion about pursuing a cardiac catheterization Medications: Medication Review Details: Current Medications Acetaminophen (Acetaminophen 325 Mg Tablet) 650 mg PO Q6H PRN PRN Reason: Pain Last Admin: 07/24/20 20:36 Dose: 650 mg Documented by: Aspirin (Aspirin 81 Mg Ec Tablet) 81 mg PO DAILY [facility] Last Admin: 07/24/20 10:48 Dose: 81 mg Documented by: Atorvastatin Calcium (Atorvastatin 40 Mg Tablet) 40 mg PO BEDTIME YANELI Last Admin: 07/24/20 20:27 Dose: 40 mg Documented by: Clopidogrel Bisulfate (Clopidogrel 75 Mg Tablet) 75 mg PO DAILY [facility] Last Admin: 07/24/20 10:47 Dose: 75 mg Documented by: Dextrose (Dextrose 50% Syringe 50 Ml) 25 ml IVP ONCE PRN; Protocol PRN Reason: hypoglycemia protocol Dextrose (Dextrose 50% Syringe 50 Ml) 50 ml IVP PRN PRN; Protocol PRN Reason: hypoglycemia protocol Enoxaparin Sodium (Enoxaparin 100 Mg/Ml Syringe) 90 mg 1 mg/kg (90 mg) SUBCUT Q24H YANELI Last Admin: 07/24/20 12:46 Dose: 90 mg Documented by: Glucagon (Glucagon 1 Mg/Ml Inj 1 Ml) 1 mg IM ONCE PRN; Protocol PRN Reason: Adult Acute Hypoglycemia Prot. Hydralazine HCl (Hydralazine 50 Mg Tablet) 50 mg PO TID [facility] Last Admin: 07/23/20 21:04 Dose: 50 mg Documented by: Imipenem/Cilastatin Sodium 250 (mg/ Sodium Chloride) 100 mls @ 200 mls/hr IV Q12H YANELI; Protocol Last Infusion: 07/24/20 22:10 Dose: Infused Documented by: Insulin Aspart (Insulin Aspart 100 Unit/1 Ml) 0 unit SUBCUT WM&BEDTIME [facility]; Protocol Last Admin: 07/24/20 20:28 Dose: Not Given Documented by: Isosorbide Mononitrate (Isosorbide Mononitrate Er 30 Mg Tablet) 30 mg PO DAILY [facility] Last Admin: 07/24/20 10:49 Dose: 30 mg Documented by: Metoprolol Tartrate (Metoprolol Tartrate 25 Mg Tablet) 25 mg PO Q12H [facility] Last Admin: 07/24/20 21:09 Dose: 25 mg Documented by: Mirtazapine (Mirtazapine 15 Mg Tablet) 15 mg PO BEDTIME [facility] Last Admin: 07/24/20 20:27 Dose: 15 mg Documented by: Senna/Docusate Sodium (Sennosides-Docusate Tablet) 1 tab PO DAILY [facility] Last Admin: 07/24/20 10:47 Dose: 1 tab Documented by: Vitals/I&O/Wt Last Vital Signs Temp 97.5 F L 07/25/20 11:41 Pulse 57 L 07/25/20 11:41 Resp 18 07/25/20 11:41 BP 169/73 07/25/20 11:41 Pulse Ox 95 07/25/20 11:41 07/24/20 07/25/20 07/25/20 22:59 06:59 14:59 Intake Total 460 / 800 240 / 1040 240 / 240 Output Total 300 / 300 100 / 400 Balance 160 / 500 140 / 640 240 / 240 Physical Exam Const: COMMON NORMALS: no acute distress and patient oriented x3 HENMT: COMMON NORMALS: normocephalic HEAD & SCALP: normocephalic Neck/C-Spine: COMMON NORMALS: no JVD Resp: COMMON NORMALS: normal respiratory effort, No retractions, No use of accessory muscles and clear to auscultation bilaterally AUSCULTATION: clear to auscultation bilaterally Cardio: COMMON NORMALS: no JVD, regular rate, regular rhythm, S1 normal heart sound present and S2 normal heart sound present RATE: regular rate RHYTHM: regular rhythm HEART SOUNDS: S1 normal heart sound present and S2 normal heart sound present GI: COMMON NORMALS: Normal to inspection, nondistended, normoactive bowel sounds present, Soft to palpation, non-tender, No hepatosplenomegaly present, no masses and no bruits PALPATION: Yes Soft to palpation and Yes No hepatosplenomegaly present Extremity: COMMON NORMALS: no calf tenderness and no pedal edema NARRATIVE EXTREMITY EXAM: R BKA, stump has slight erythema Neuro: COMMON NORMALS: patient oriented x3 Psych: COMMON NORMALS: mental status grossly normal Data : 07/25/20 08:20 07/25/20 08:20 Micro: Microbiology 07/23/20 02:13 Urine Culture - Final Urine,Clean Catch Escherichia coli esbl 07/23/20 13:42 Blood Culture - Preliminary Blood NEGATIVE TO DATE 07/23/20 13:40 Blood Culture - Preliminary Blood NEGATIVE TO DATE A&P Assessment and plan (1) Acute worsening of stage 3 chronic kidney disease: Status: Acute (2) Dehydration: Status: Acute (3) Anorexia: Status: Acute (4) Declining functional status: Status: Acute (5) Encephalopathy: UREMIC Status: Acute (6) CHF (congestive heart failure): Status: Acute (7) NSTEMI (non-ST elevated myocardial infarction): Status: Acute (8) Ischemic cardiomyopathy: Status: Acute (9) Pyelonephritis of left kidney: Status: Acute Additional A&P Information Acute pyelonephritis left kidney, with urinary tract infection -We will hold off on fluid therapy -Follow urine cultures, blood cultures -Continue Primaxin Acute on chronic kidney disease stage III BUN/cr at [place] was 85/2.2, currently 92/4.8 patient family wants him to be evaluated by nephrology for interventions, patient wants to be evaluated for his CKD, but no decision has been made by patient or family on dialysis Acute worsening might have a component related to dehydration, and ESBL E. coli UTI with pyelonephritis UA indicative of UTI, will get Bcx Hold nephrotoxic agents Fluid therapy discontinued Patient does endorse anorexia and seems to have poor functional status, will add mirtazapine Patient is denying vomiting and diarrhea most likely source of dehydration is p oor p.o. intake TSH within normal limits Uremic encephalopathy: Back to baseline, secondary to renal failure, NSTEMI with ischemic cardiomyopathy Has a history of CABG, CAD Had a NSTEMI a few months ago, sent home as he was on comfort care and patient family didnot want interventions, currently hospice/comfort care rescinded, full code Currently no chest pain 6-hour troponin 237.7, delta of 24.7 ST depressions in lateral leads Echocardiogram shows Normal left ventricular size. LV systolic function is moderately reduced with EF of 35-40% . Mild global hypokinesis with moderate hypokinesis of anteroseptal, inferoseptal. Grade 1 diastolic dysfunction Plan: -Start on aspirin, statin, Plavix, beta-jacky, Imdur, therapeutic Lovenox -Telemetry monitoring -Cardiology was consulted -Plan is to pursue cardiac stress test tomorrow morning -Patient unsure currently of medical intervention versus coronary angiogram, wants to discuss with family and cardiology -Patient and family made aware that with coronary angiogram he does have significant risk of being placed on dialysis Type 2 diabetes: Moderate sliding scale History of seizures: Daughter tells me that he had grand mal seizures roughly a month ago, continue Keppra 500 mg twice daily, seizure precautions, aspiration precautions Hospice: January had osteomyelitis, severe diabetic infection, worsening clinical status, they thought he might deteriorate, so his family and brother (DPOA) made him comfort care, but patient started to improve he also had an episode of significant grand mal seizures a month ago daughter tells me that she thought he might pass away, but started to clinically improve, mentation improved, start to eat, was taken off comfort care OA [phone], sajan, I have left several messages and have not heard back from Sajan as of yet, patient tells me that currently he is on the road in [facility], but I was able to reach patient's daughter, have gone over the case in detail with her, Goals of care: I have confirmed with patient he is full code Cardiac diet DVT prophylaxis Lovenox Attestations Medical Necessity Statement*: Patient requires hospitalization, for ischemic cardiomyopathy, proceeding to cardiac stress test tomorrow morning, acute renal failure, acute pyelonephritis, Coding Level of Care 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
[2020-07-25] MEDS: enoxaparin 100 mg/mL Syringe 90 MG SUBCUT (12:23)
[2020-07-25 17:21] LABS: Glucose Point of Care 124 mg/dL (70-110)
[2020-07-25 21:32] LABS: Glucose Point of Care 154 mg/dL (70-110)
[2020-07-25] MEDS: atorvastatin 40 mg Tablet PO (22:00)
[2020-07-25] MEDS: mirtazapine 15 mg Tablet PO (22:01)
[2020-07-26] VITALS (11 sets, daily range): BP systolic 112–176; BP diastolic 48–74; PULSE 51–91; RESP 16–18; TEMP 36.6–36.8; O2SAT 94–97
--- NOTE | 2020-07-26 06:47 | P.PN_ITS ---
Subjective Subjective: Interval history: NO CP, weak, sob, anxious about his medical conditions Medications: Reviewed: Yes Medication Review Details: Current Medications Acetaminophen (Acetaminophen 325 Mg Tablet) 650 mg PO Q6H PRN PRN Reason: Pain Last Admin: 07/25/20 22:00 Dose: 650 mg Documented by: Aminophylline (Aminophylline 25 Mg/Ml Sdv 10 Ml) 25 mg IVP Q2M PRN PRN Reason: see dose instructions Stop: 07/27/20 06:38 Aspirin (Aspirin 81 Mg Ec Tablet) 81 mg PO DAILY [facility]ANELI Last Admin: 07/25/20 09:53 Dose: 81 mg Documented by: Atorvastatin Calcium (Atorvastatin 40 Mg Tablet) 40 mg PO BEDTIME YANELI Last Admin: 07/25/20 22:00 Dose: 40 mg Documented by: Clopidogrel Bisulfate (Clopidogrel 75 Mg Tablet) 75 mg PO DAILY [facility] Last Admin: 07/25/20 09:53 Dose: 75 mg Documented by: Dextrose (Dextrose 50% Syringe 50 Ml) 25 ml IVP ONCE PRN; Protocol PRN Reason: hypoglycemia protocol Dextrose (Dextrose 50% Syringe 50 Ml) 50 ml IVP PRN PRN; Protocol PRN Reason: hypoglycemia protocol Enoxaparin Sodium (Enoxaparin 100 Mg/Ml Syringe) 90 mg 1 mg/kg (90 mg) SUBCUT Q24H [facility] Last Admin: 07/25/20 12:23 Dose: 90 mg Documented by: Glucagon (Glucagon 1 Mg/Ml Inj 1 Ml) 1 mg IM ONCE PRN; Protocol PRN Reason: Adult Acute Hypoglycemia Prot. Hydralazine HCl (Hydralazine 50 Mg Tablet) 50 mg PO TID [facility] Last Admin: 07/23/20 21:04 Dose: 50 mg Documented by: Imipenem/Cilastatin Sodium 250 (mg/ Sodium Chloride) 100 mls @ 200 mls/hr IV Q12H YANELI; Protocol Last Infusion: 07/25/20 23:30 Dose: Infused Documented by: Insulin Aspart (Insulin Aspart 100 Unit/1 Ml) 0 unit SUBCUT WM&BEDTIME [facility]; Protocol Last Admin: 07/25/20 21:35 Dose: Not Given Documented by: Isosorbide Mononitrate (Isosorbide Mononitrate Er 30 Mg Tablet) 30 mg PO DAILY [facility] Last Admin: 07/25/20 09:53 Dose: 30 mg Documented by: Metoprolol Tartrate (Metoprolol Tartrate 25 Mg Tablet) 25 mg PO Q12H [facility] Last Admin: 07/25/20 22:00 Dose: 25 mg Documented by: Mirtazapine (Mirtazapine 15 Mg Tablet) 15 mg PO BEDTIME [facility] Last Admin: 07/25/20 22:01 Dose: 15 mg Documented by: Nitroglycerin (Nitroglycerin 0.4 Mg Sublingual Tablet) 0.4 mg SUBLINGUAL Q5M PRN PRN Reason: CHEST PAIN Stop: 07/27/20 06:38 Ondansetron HCl (Ondansetron 2 Mg/Ml Sdv 2 Ml) 4 mg IVP Q2M PRN PRN Reason: NAUSEA Regadenoson (Regadenoson 0.4 Mg/5 Ml Syringe) 0.4 mg IVP ONCE PRN PRN Reason: Lexiscan Stress Test Senna/Docusate Sodium (Sennosides-Docusate Tablet) 1 tab PO DAILY [facility] Last Admin: 07/25/20 09:52 Dose: 1 tab Documented by: Vitals/I&O/Wt Last Vital Signs Temp 98 F 07/26/20 04:00 Pulse 53 L 07/26/20 05:32 Resp 16 07/26/20 04:00 BP 147/62 07/26/20 04:00 Pulse Ox 94 07/26/20 04:00 07/25/20 07/25/20 07/26/20 14:59 22:59 06:59 Intake Total 340 / 340 120 / 460 580 / 1040 Output Total 400 / 400 Balance 340 / 340 -280 / 60 580 / 640 Physical Exam Narrative: EXAM NARRATIVE: overweight in bed, NARD VS noted heent- nc/at, eomi, anicteric neck supple lung basal crackles and diminished air movement heart RRR, +BARRY, s1, s2 abd soft, nt, nd, +BS ext -rt BKA, left minimal edema neuro- a,a, o x 2 -3 pulses weak DP and PT pulses on left foot no rash Data : 07/25/20 08:20 07/25/20 08:20 Micro: Microbiology 07/23/20 02:13 Urine Culture - Final Urine,Clean Catch Escherichia coli esbl A&P Additional A&P Information 1. Acute kidney injury- cr down from 5.2 - 4.6 back to 4.8 -high ur na noted -monitor chemistries and uop 1b. hyperkalemia- no ARB, low k diet 2. CKD stage 3b/4- b/l cr in NH was 2.2 Creatinine here between 2.9 and 5.4 mg/dl - likely DM and HTN nephrosclerosis -renal us- rt 10.6 cm, left 11.8 cm -even w/o cardiac cath- pt is likely marching towards ESRD, given proteinuria, elevated cr, and CHF 3. Pyelonephritis Currently receiving Primaxin urine culture is currently pending. It is noted that he has a history of ESBL E. coli and now has GNRs in his urine. 4. NSTEMI w/ ischemic CM- if needs cardiac cath- pt is at high renal risk for LUIS A and potentially needing temporary or permanent dialysis -however, I explained to the pt that he has known CAD, PVD, Dm, CKD, systolic CHF w/ Ef of 35-40%, and Grade 1 diastolic dysfunction -Pts w/ CKD, CAD, DM- have high cardiac mortality. If cardiology feels that cardiac cath would be beneficial, then renal okay to proceed as long as pt accepts risk of LUIS A, potential temporary or permanent dialysis -also pt can only be on appropriate CHF meds if he is on dialysis -if pt absolutely refuses dialysis, then would avoid cardiac cath 5. DM care per medicine 6, anemia- repeat iron studies, and epo as needed. hgb is > 10 7. Bone - mineral- metabolism of CKD- phos binder 8. met acidosis- if serum bicarb under 20, then start sodium bicarb pills Patient seen and examined via telemedicine, with the assistance of the bedside RN > 25 min spent in evaluation and mgmt of patient Attestations Medical Necessity Statement*: trent, ckd stage 4, chf, dm Time Spent in Patient Care: 16 - 35 minutes Coding Level of Care Code Acute Ultrasound Tech for Brandy Sanchez
[2020-07-26 06:56] LABS: Glucose Point of Care 96 mg/dL (70-110)
[2020-07-26 07:12] LABS: Basophils # 0.1 10^3/uL (0.0-0.1); Basophils % 0.9 %; Eosinophils # 0.7 10^3/uL (0.0-0.8); Eosinophils % 10.2 %; Hematocrit 27.4 % (42.0-52.0); Hemoglobin 8.7 g/dL (11.7-16.6); Lymphocytes # 1.5 10^3/uL (0.8-4.8); Lymphocytes % 23.2 %; Mean Corpuscular HGB Conc 31.8 g/dL (30.0-36.0); Mean Corpuscular Hemoglobin 28.8 pg (28.0-34.0); Mean Corpuscular Volume 90.7 fL (80-94); Mean Platelet Volume 9.6 fL (7.4-10.4); Monocytes # 0.5 10^3/uL (0.2-0.9); Neutrophils # 3.78 10^3/uL (1.8-7.7); Neutrophils % 56.9 %; Nucleated Red Blood Cells % 0 %; Platelet Count 189 10^3/cmm (130-400); Red Blood Count 3.02 10^6/uL (4.1-5.3); Red Cell Distribution Width 15.7 % (12.1-15.1); White Blood Count 6.6 10^3/uL (4.0-10.0)
[2020-07-26 07:36] LABS: Calcium 8.2 mg/dL (8.5-10.5); Parathyroid Hormone 135.4 pg/mL (15-65)
[2020-07-26 07:46] LABS: 25 Hydroxy Vitamin D 30 ng/mL (30-100); Alanine Aminotransferase 13 U/L (0-41); Albumin Level 2.9 g/dL (3.5-5.2); Alkaline Phosphatase 43 IU/L (40-130); Aspartate Amino Transferase 12 U/L (0-40); Carbon Dioxide 19 mmol/L (22-29); Chloride 108 mmol/L (98-107); Ferritin 282 ng/mL (30-400); Globulin 2.9 g/dL (1.3-4.6); Glucose 84 mg/dL (65-115); Iron 105 ug/dL (59-158); Magnesium 1.8 mg/dL (1.7-2.3); NT Pro B Type Natriuretic Pept 12702 pg/mL (0-125); Osmolality Calculated 320 mOsm/kg (285-295); Percent Saturation 66.8 % (20-50); Phosphorus 7.4 mg/dL (2.5-4.5); Sodium 140 mmol/L (136-145); Total Bilirubin 0.2 mg/dL (0.15-1.2); Total Iron Binding Capacity 157 mcg/dl; Total Protein 5.8 g/dL (6.6-8.7); Unsaturated Iron Binding 52 ug/dL (112-347)
--- NOTE | 2020-07-26 08:08 | P.PN_ITS ---
Subjective Subjective: Interval history: Patient underwent stress test today that showed LAD/LCx territory infarct with mild urmila-infarct ischemia. He denies chest pain.Renal function continues to worsen Vitals/I&O/Wt Last Vital Signs Temp 98.0 F 07/26/20 07:28 Pulse 63 07/26/20 07:28 Resp 18 07/26/20 07:28 BP 159/74 07/26/20 07:28 Pulse Ox 95 07/26/20 07:28 07/25/20 07/26/20 07/26/20 22:59 06:59 14:59 Intake Total 120 / 460 580 / 1040 Output Total 400 / 400 Balance -280 / 60 580 / 640 Physical Exam Narrative: EXAM NARRATIVE: Const COMMON NORMALS: no acute distress and patient oriented x3 HENMT COMMON NORMALS: normocephalic HEAD & SCALP: normocephalic Neck/C-Spine COMMON NORMALS: no JVD Resp COMMON NORMALS: normal respiratory effort, No retractions, No use of accessory muscles and clear to auscultation bilaterally AUSCULTATION: clear to auscultation bilaterally Cardio COMMON NORMALS: no JVD, regular rate, regular rhythm, S1 normal heart sound present and S2 normal heart sound present RATE: regular rate RHYTHM: regular rhythm HEART SOUNDS: S1 normal heart sound present and S2 normal heart sound present GI COMMON NORMALS: Normal to inspection, nondistended, normoactive bowel sounds present, Soft to palpation, non-tender, No hepatosplenomegaly present, no masses and no bruits PALPATION: Yes Soft to palpation and Yes No hepatosplenomegaly present Extremity COMMON NORMALS: no calf tenderness and no pedal edema NARRATIVE EXTREMITY EXAM: R BKA, stump has slight erythema Neuro COMMON NORMALS: patient oriented x3 Psych COMMON NORMALS: mental status grossly normal Data : 07/27/20 05:13 07/27/20 05:13 Micro: Microbiology 07/23/20 02:13 Urine Culture - Final Urine,Clean Catch Escherichia coli esbl A&P Assessment and plan (1) Ischemic cardiomyopathy: Status: Chronic (2) CHF (congestive heart failure): Status: Chronic (3) Hypertension: Status: Chronic Qualifiers: Hypertension type: essential hypertension Qualified Code(s): I10 - Essential (primary) hypertension (4) CAD (coronary artery disease): Status: Chronic (5) Type 2 diabetes mellitus: Status: Chronic Qualifiers: Diabetes mellitus assisted insulin use: without assisted use Diabetes mellitus complication status: with kidney complications Diabetes mellitus complication detail: with chronic kidney disease Chronic kidney disease stage: stage 3 (moderate) Chronic kidney disease stage 3 subtype: stage 3b (GFR 30-44) Qualified Code(s): E11.22 - Type 2 diabetes mellitus with diabetic chronic kidney disease; N18.32 - Chronic kidney disease, stage 3b (6) 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 Currently he has acute on chronic CKD. He had troponin elevation which likely is from type II [place] . NSTEMI is less likely. Stress test showed prior infarct in the LAD and left circumflex artery territory with mild urmila-infarct ischemia. Given his renal function, we will recommend continuing medical therapy unless patient develops significant chest pain/significant elevation of troponins. If patient ends up on permanent dialysis, we can consider performing coronary angiogram however given mild urmila- infarct ischemia, we should continue with medical management for now. Continue aspirin and Plavix. Thank you for involving us with the care of this patient. Please call with questions we will continue to follow. 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
[2020-07-26 08:17] LABS: Blood Urea Nitrogen 98 mg/dL (8-23)
--- NOTE | 2020-07-26 08:21 | PC.NURSE ---
critical BUN reproted to Dr. Benitez. no new orders given.
[2020-07-26 11:08] LABS: Glucose Point of Care 93 mg/dL (70-110)
--- NOTE | 2020-07-26 11:11 | NMCV_ITS ---
NM sujata perf SPECT r/s* [id number] Moy Fernandez Age: 70 Gender: M : 1950 Exam Date: 07/26/2020 11:11 Ordering Phys: Hira Ruiz MD Technologist: CRISTIANO Palomo Exam Location: [facility] Indications: NSTEMI, CAD, CHF STRESS TEST Please see separate stress test report in [facility] for full findings IMAGE PROTOCOL Rest/Stress 1 Lexiscan Day Radiopharmaceutical Dose (mCi) Administration Site Administered by Rest: Tc-99m 11.0 IV CRISTIANO Stock Sestamibi Stress:Tc-99m 32.8 IV CRISTIANO Stock Sestamibi Rest: 26-Jul-2020 60 Discovery 630 Stress: 26-Jul-2020 30 Discovery 630 0.4mg Lexiscan. Supine position only as patient was unable to lay prone. SPECT RESULTS Technical Quality: Excellent Raw Data Analysis: Subdiaphragmatic activity Image Corrections: No attenuation or motion correction applied Summed Stress Score: 18 Summed Rest Score: 13 Summed Difference Score: 5 PERFUSION FINDINGS Medium sized perfusion abnormality of moderate severity of entrie anterior, mid to apical anterolateral, mid to apical inferior with subtle reversibility in basal anterior and basal to mid anterolateral esparza. FUNCTIONAL RESULTS (calculated via Gated SPECT) Stress Image LV EF (%): 33 Stress EDV (mL):203 TID: 0.93 Stress ESV (mL):137 FUNCTIONAL FINDINGS: The left ventricle is dilated. TID of 0.93. The left ventricular ejection fraction is moderately reduced with a value of 33%. There is global hypokinesis more pronounced in septal and apical esparza. Markedly increased end diastolic and end systolic volume. IMPRESSIONS 1. Medium sized perfusion abnormality of moderate severity of entrie anterior, mid to apical anterolateral, mid to apical inferior with reversibility in basal anterior and basal to mid anterolateral esparza. 2. This likely represents old myocardial infarction in left anterior descending and circumflex artery territory with mild urmila-infarct ischemia. In absence of prone imaging sub diaphragmatic attenuation artifact cannot be ruled out. 3. The left ventricular ejection fraction is moderately reduced with a value of 33%. There is global hypokinesis more pronounced in septal and apical esparza. 4. The perfusion pattern is consistent with an ischemic cardiomyopathy. Lashay Knapp MD (Electronically Signed) Final Date: 26 July 2020 16:56 S
[2020-07-26] MEDS: regadenoson 0.4 Mg/5 ml Syringe IVP (13:00)
--- NOTE | 2020-07-26 13:01 | SUR.PREOP ---
Patient reports no pain or discomfort prior to the start of the procedure.
[2020-07-26] MEDS: isosorbide mononitrate ER 30 mg Tablet PO (15:46)
[2020-07-26] MEDS: metoprolol tartrate 25 mg Tablet PO ×2 (15:46→21:18)
[2020-07-26] MEDS: aspirin 81 mg EC Tablet PO (15:46)
[2020-07-26] MEDS: sennosides-docusate Tablet 1 TAB PO (15:46)
[2020-07-26] MEDS: clopidogrel 75 mg Tablet PO (15:46)
[2020-07-26] MEDS: enoxaparin 100 mg/mL Syringe 90 MG SUBCUT (15:49)
--- NOTE | 2020-07-26 16:01 | PC.NURSE ---
messaged Dr. Benitez about patients diet. Told pt that his diet order is still nothing by mouth. pt refused instructions to wait for new diet order and is eating crackers that he had in his bedside table.
[2020-07-26 16:33] LABS: Albumin,Urine Random 55 %; Alpha-1-Globulins Urine Random 6 %; Alpha-2-Globulins Urine Random 8 %; Beta-Globulin,Urine Random 16 %; Gamma Globulin,Urine Random 15 %
[2020-07-26 16:50] LABS: Glucose Point of Care 92 mg/dL (70-110)
[2020-07-26] MEDS: acetaminophen 325 mg Tablet 650 MG PO (19:59)
[2020-07-26 21:07] LABS: Glucose Point of Care 156 mg/dL (70-110)
[2020-07-26] MEDS: mirtazapine 15 mg Tablet PO (21:18)
[2020-07-26] MEDS: atorvastatin 40 mg Tablet PO (21:18)
--- NOTE | 2020-07-26 22:54 | P.PN_ITS ---
Subjective Subjective: Interval history: Patient was seen after stress testing completed. Results pending. Renal function is progressively worsening over time. Whether or not we proceed with arteriogram will depend on what the stress testing results show. Should patient require an arteriogram, he will almost certainly end up requiring dialysis. I discussed this with Mr. Fernandez for a bit, explaining what dialysis was and its purpose and medical management. He became quite tearful and scared when I explained that it was basically allowing a machine to do work of kidneys. I was able to bring him around to a little less scary point of view with things. He has heard people talk about him probably needing dialysis previously but has not given much thought as to whether or not that is something that he would want to do. We will continue discussions with him. No decisions have been made. Of record shows that this has been a steady challenge for him. Vitals/I&O/Wt Last Vital Signs Temp 97.8 F 07/26/20 19:52 Pulse 67 07/26/20 19:52 Resp 17 07/26/20 19:52 BP 170/68 07/26/20 19:52 Pulse Ox 97 07/26/20 19:52 07/26/20 07/26/20 07/26/20 06:59 14:59 22:59 Intake Total 580 / 1040 440 / 440 Output Total 750 / 750 1100 / 1850 Balance 580 / 640 -750 / -750 -660 / -1410 Physical Exam Narrative: EXAM NARRATIVE: Chronic ill appearance, awake and alert, neck is a little contracted related to some kyphosis Tearful at times but also able to calm down. Extraocular movements are intact, mucous membranes are dry Clear to auscultation anteriorly, decreased at bases Regular rhythm, faint murmur noted Abdomen soft Status post right BKA, 1+ edema Data : 07/26/20 06:38 07/26/20 06:38 A&P Assessment and plan (1) Pyelonephritis of left kidney: ESBL E. coli currently on Primaxin Status: Acute (2) Acute worsening of stage 3 chronic kidney disease: Followed by nephrology, fully worsening renal function over time Status: Acute (3) NSTEMI (non-ST elevated myocardial infarction): Status: Acute (4) Ischemic cardiomyopathy: Ejection fraction 35 to 40% Status: Chronic (5) Type 2 diabetes mellitus: Status: Chronic Qualifiers: Diabetes mellitus retirement insulin use: without ad terminal makeup operator use Diabetes mellitus complication status: with kidney complications Diabetes mellitus complication detail: with chronic kidney disease Chronic kidney disease stage: stage 3 (moderate) Chronic kidney disease stage 3 subtype: stage 3b (GFR 30-44) Qualified Code(s): E11.22 - Type 2 diabetes mellitus with diabetic chronic kidney disease; N18.32 - Chronic kidney disease, stage 3b (6) Seizure disorder: Status: Chronic (7) Anemia in CKD (chronic kidney disease): Status: Chronic (8) Peripheral arterial disease: Has been followed at [facility] care Status: Chronic (9) Encephalopathy: Status: Resolved Additional A&P Information Follow-up results of stress test On aspirin, statin, Plavix, isosorbide, metoprolol and as needed nitroglycerin We will discuss with cardiology tomorrow further plans from that standpoint, I discussed with Dr. Hopkins today and if stress test was okay plan was for medical management Discussed with nephrology and daily indicated that proceeding to cardiac catheterization was okay with them as long as patient understood that it would result in dialysis Spoke with patient about dialysis today and will need to continue discussions. He does have somebody who helps him make decisions but they have not been reachable. We will continue efforts to reach them Diuretics are presently held due to worsening renal dysfunction Review of some records indicates that he had been on hospice previously wants everything done . Simultaneously he becomes quite tearful when you talk about some of the more invasive things that may occur with aggressive management. We will continue discussions with him to discern his wishes going forward Resume home Keppra Sliding scale insulin for diabetes Resume home PPI Hydrocodone if needed for moderate to severe pain Disposition plans pending results of stress testing, will need close follow-up from a nephrology standpoint He is currently on treatment dose Lovenox Full code We have not been able to reach patient's power of staff attorney though Dr. Davis was able to talk with his daughter. Attestations Medical Necessity Statement*: Requires ongoing inpatient management to adjust both cardiac and renal affiliated medications. Several home medicines have been resumed. Home diuretics remain held. We will follow up stress testing results and determine if we need to pursue cardiac catheterization. 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 [employer] Fwd Diagnoses Pyelonephritis of left kidney N12 Acute worsening of stage 3 chronic kidney disease N18.30 NSTEMI (non-ST elevated myocardial infarction) I21.4 Ischemic cardiomyopathy I25.5 Type 2 diabetes mellitus E11.22; N18.32 Diabetes mellitus retirement insulin use: without retirement use Diabetes mellitus complication status: with kidney complications Diabetes mellitus complication detail: with chronic kidney disease Chronic kidney disease stage: stage 3 (moderate) Chronic kidney disease stage 3 subtype: stage 3b (GFR 30-44) Seizure disorder G40.909 Anemia in CKD (chronic kidney disease) N18.9; D63.1 Peripheral arterial disease I73.9 Encephalopathy G93.40
[2020-07-27] VITALS (9 sets, daily range): BP systolic 128–157; BP diastolic 52–68; PULSE 53–62; RESP 16–18; TEMP 36.6–37.2; O2SAT 95–97
[2020-07-27] MEDS: acetaminophen 325 mg Tablet 650 MG PO ×4 (02:25→23:39)
[2020-07-27 06:14] LABS: Glucose Point of Care 115 mg/dL (70-110)
[2020-07-27 06:21] LABS: Basophils # 0.1 10^3/uL (0.0-0.1); Basophils % 0.9 %; Eosinophils # 0.5 10^3/uL (0.0-0.8); Hematocrit 25.6 % (42.0-52.0); Hemoglobin 8.3 g/dL (11.7-16.6); Lymphocytes # 1.1 10^3/uL (0.8-4.8); Lymphocytes % 15.4 %; Mean Corpuscular HGB Conc 32.4 g/dL (30.0-36.0); Mean Corpuscular Volume 89.5 fL (80-94); Mean Platelet Volume 9.9 fL (7.4-10.4); Monocytes # 0.6 10^3/uL (0.2-0.9); Monocytes % 8.9 %; Neutrophils # 4.64 10^3/uL (1.8-7.7); Neutrophils % 67.2 %; Nucleated Red Blood Cells % 0 %; Platelet Count 195 10^3/cmm (130-400); Red Blood Count 2.86 10^6/uL (4.1-5.3); Red Cell Distribution Width 15.7 % (12.1-15.1); White Blood Count 6.9 10^3/uL (4.0-10.0)
[2020-07-27 06:39] LABS: Alanine Aminotransferase 14 U/L (0-41); Albumin Level 3.1 g/dL (3.5-5.2); Alkaline Phosphatase 52 IU/L (40-130); Anion Gap 20.1 (5-19); Aspartate Amino Transferase 14 U/L (0-40); Calcium 8.4 mg/dL (8.5-10.5); Carbon Dioxide 19 mmol/L (22-29); Chloride 106 mmol/L (98-107); Globulin 2.9 g/dL (1.3-4.6); Glucose 100 mg/dL (65-115); Magnesium 1.8 mg/dL (1.7-2.3); Osmolality Calculated 320 mOsm/kg (285-295); Phosphorus 6.8 mg/dL (2.5-4.5); Potassium 5.1 mmol/L (3.5-5.1); Sodium 140 mmol/L (136-145); Total Bilirubin 0.2 mg/dL (0.15-1.2)
[2020-07-27 06:52] LABS: Blood Urea Nitrogen 97 mg/dL (8-23)
--- NOTE | 2020-07-27 06:56 | PC.NURSE ---
critical BUN reported to Dr. Benitez
[2020-07-27 07:52] LABS: PROTEIN, TOTAL 5.6 g/dL (6.1-8.1)
--- NOTE | 2020-07-27 07:58 | PM.PN ---
Subjective Subjective: Interval history: no changes. denies n/v/f/c/lee/d/sob/cp. has fantom pain by stump site Medications: Reviewed: Yes Medication Review Details: Current Medications Acetaminophen (Acetaminophen 325 Mg Tablet) 650 mg PO Q6H PRN PRN Reason: MILD PAIN Last Admin: 07/27/20 02:25 Dose: 650 mg Documented by: Hydrocodone Bitart/Acetaminophen (Hydrocodone-Acetaminophen 5-325 Mg Tablet) 1 tab PO BID PRN PRN Reason: MODERATE TO SEVERE PAIN Aspirin (Aspirin 81 Mg Ec Tablet) 81 mg PO DAILY [facility] Last Admin: 07/26/20 15:46 Dose: 81 mg Documented by: Atorvastatin Calcium (Atorvastatin 40 Mg Tablet) 40 mg PO BEDTIME YANELI Last Admin: 07/26/20 21:18 Dose: 40 mg Documented by: Bisacodyl (Bisacodyl 10 Mg Supp) 10 mg ID DAILY PRN PRN Reason: Constipation Clopidogrel Bisulfate (Clopidogrel 75 Mg Tablet) 75 mg PO DAILY [facility] Last Admin: 07/26/20 15:46 Dose: 75 mg Documented by: Dextrose (Dextrose 50% Syringe 50 Ml) 25 ml IVP ONCE PRN; Protocol PRN Reason: hypoglycemia protocol Dextrose (Dextrose 50% Syringe 50 Ml) 50 ml IVP PRN PRN; Protocol PRN Reason: hypoglycemia protocol Enoxaparin Sodium (Enoxaparin 100 Mg/Ml Syringe) 90 mg 1 mg/kg (90 mg) SUBCUT Q24H [facility] Last Admin: 07/26/20 15:49 Dose: 90 mg Documented by: Glucagon (Glucagon 1 Mg/Ml Inj 1 Ml) 1 mg IM ONCE PRN; Protocol PRN Reason: Adult Acute Hypoglycemia Prot. Hydralazine HCl (Hydralazine 50 Mg Tablet) 50 mg PO TID [facility] Last Admin: 07/23/20 21:04 Dose: 50 mg Documented by: Imipenem/Cilastatin Sodium 250 (mg/ Sodium Chloride) 100 mls @ 200 mls/hr IV Q12H YANELI; Protocol Last Infusion: 07/26/20 22:51 Dose: Infused Documented by: Insulin Aspart (Insulin Aspart 100 Unit/1 Ml) 0 unit SUBCUT WM&BEDTIME [facility]; Protocol Last Admin: 07/26/20 21:46 Dose: Not Given Documented by: Isosorbide Mononitrate (Isosorbide Mononitrate Er 30 Mg Tablet) 30 mg PO DAILY [facility] Last Admin: 07/26/20 15:46 Dose: 30 mg Documented by: Levetiracetam (Levetiracetam 500 Mg Tablet) 500 mg PO BID@0700,2100 [facility] Metoprolol Tartrate (Metoprolol Tartrate 25 Mg Tablet) 25 mg PO Q12H [facility] Last Admin: 07/26/20 21:18 Dose: 25 mg Documented by: Mirtazapine (Mirtazapine 15 Mg Tablet) 15 mg PO BEDTIME [facility] Last Admin: 07/26/20 21:18 Dose: 15 mg Documented by: Ondansetron HCl (Ondansetron 2 Mg/Ml Sdv 2 Ml) 4 mg IVP Q2M PRN PRN Reason: NAUSEA Pantoprazole Sodium (Pantoprazole Dr 40 Mg Tablet) 40 mg PO BID@ [facility] Senna/Docusate Sodium (Sennosides-Docusate Tablet) 1 tab PO DAILY [facility] Last Admin: 07/26/20 15:46 Dose: 1 tab Documented by: Vitals/I&O/Wt Last Vital Signs Temp 98.8 F 07/27/20 07:49 Pulse 53 L 07/27/20 07:49 Resp 16 07/27/20 07:49 BP 142/57 07/27/20 07:49 Pulse Ox 96 07/27/20 07:49 07/26/20 07/27/20 07/27/20 22:59 06:59 14:59 Intake Total 440 / 440 Output Total 1100 / 1850 Balance -660 / -1410 Physical Exam Narrative: EXAM NARRATIVE: comfortable in bed, NARD VS noted heent- nc/at, eomi, anicteric neck supple lung basal crackles , no change heart RRR, +BARRY, s1, s2 abd soft, nt, nd, +BS ext -rt BKA, left minimal edema neuro- a,a, o x 2 -3 pulses weak DP and PT pulses on left foot no rash Data : 07/27/20 05:13 07/27/20 05:13 A&P Additional A&P Information 1. Acute kidney injury- cr down from 5.2 - 4.6 back to 4.8 and stable -high ur na noted -monitor chemistries and uop - I am concerned for ATN, CRS, progression of CKD 1b. hyperkalemia- no ARB, low k diet 2. CKD stage 3b/4- b/l cr in NH was 2.2 Creatinine here between 2.9 and 5.4 mg/dl - likely DM and HTN nephrosclerosis -renal us- rt 10.6 cm, left 11.8 cm -even w/o cardiac cath- pt is likely marching towards ESRD, given proteinuria, elevated cr, and CHF 3. Pyelonephritis Currently receiving Primaxin urine culture is currently pending. It is noted that he has a history of ESBL E. coli and now has GNRs in his urine. 4. NSTEMI w/ ischemic CM- if needs cardiac cath- pt is at high renal risk for LUIS A and potentially needing temporary or permanent dialysis -however, I explained to the pt that he has known CAD, PVD, Dm, CKD, systolic CHF w/ Ef of 35-40%, and Grade 1 diastolic dysfunction -Pts w/ CKD, CAD, DM- have high cardiac mortality. - stress test 1. Medium sized perfusion abnormality of moderate severity of entrie anterior, mid to apical anterolateral, mid to apical inferior with reversibility in basal anterior and basal to mid anterolateral esparza. 2. This likely represents old myocardial infarction in left anterior descending and circumflex artery territory with mild urmila-infarct ischemia. In absence of prone imaging sub diaphragmatic attenuation artifact cannot be ruled out. 3. The left ventricular ejection fraction is moderately reduced with a value of 33%. There is global hypokinesis more pronounced in septal and apical esparza. 4. The perfusion pattern is consistent with an ischemic cardiomyopathy. If cardiology feels that cardiac cath would be beneficial, then renal would recommend proceeding as long as pt accepts risk of LUIS A, potential temporary or permanent dialysis -also pt can only be on appropriate CHF meds if he is on dialysis -if pt absolutely refuses dialysis, then would avoid cardiac cath -if pt is to go for cath, and okay w/ cardiology- would give pericontrast ivf- 60 ml /hr start 12 hrs pre cath 5. DM care per medicine 6, anemia- repeat iron studies- no iv iron- high ferritin and TSAT -start epo as hgb dropped to 8.3 7. Bone - mineral- metabolism of CKD- phos binder 8. 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
[2020-07-27] MEDS: aspirin 81 mg EC Tablet PO (09:11)
[2020-07-27] MEDS: isosorbide mononitrate ER 30 mg Tablet PO (09:11)
[2020-07-27] MEDS: sevelamer 800 mg Tablet 1600 MG PO ×3 (09:11→17:39)
[2020-07-27] MEDS: pantoprazole DR 40 mg Tablet PO ×2 (09:12→17:39)
[2020-07-27] MEDS: clopidogrel 75 mg Tablet PO (09:13)
[2020-07-27] MEDS: levETIRAcetam 500 mg Tablet PO ×2 (09:13→21:26)
[2020-07-27] MEDS: sodium bicarbonate 650 mg Tablet PO ×3 (09:13→21:27)
[2020-07-27] MEDS: epoetin alfa 10,000 unit/mL INJ 10000 UNIT SUBCUT (09:13)
--- NOTE | 2020-07-27 09:17 | P.PN_ITS ---
Subjective Subjective: Interval history: Patient underwent stress test today that showed LAD/LCx territory infarct with mild urmila-infarct ischemia. He denies chest pain.Renal function still worse than admission but has stabilized Vitals/I&O/Wt Last Vital Signs Temp 98.8 F 07/27/20 07:49 Pulse 53 L 07/27/20 07:49 Resp 16 07/27/20 07:49 BP 142/57 07/27/20 07:49 Pulse Ox 96 07/27/20 07:49 07/26/20 07/27/20 07/27/20 22:59 06:59 14:59 Intake Total 440 / 440 120 / 120 Output Total 1100 / 1850 100 / 100 Balance -660 / -1410 Physical Exam Narrative: EXAM NARRATIVE: Const COMMON NORMALS: no acute distress and patient oriented x3 HENMT COMMON NORMALS: normocephalic HEAD & SCALP: normocephalic Neck/C-Spine COMMON NORMALS: no JVD Resp COMMON NORMALS: normal respiratory effort, No retractions, No use of accessory muscles and clear to auscultation bilaterally AUSCULTATION: clear to auscultation bilaterally Cardio COMMON NORMALS: no JVD, regular rate, regular rhythm, S1 normal heart sound present and S2 normal heart sound present RATE: regular rate RHYTHM: regular rhythm HEART SOUNDS: S1 normal heart sound present and S2 normal heart sound present GI COMMON NORMALS: Normal to inspection, nondistended, normoactive bowel sounds present, Soft to palpation, non-tender, No hepatosplenomegaly present, no masses and no bruits PALPATION: Yes Soft to palpation and Yes No hepatosplenomegaly present Extremity COMMON NORMALS: no calf tenderness and no pedal edema NARRATIVE EXTREMITY EXAM: R BKA, stump has slight erythema Neuro COMMON NORMALS: patient oriented x3 Psych COMMON NORMALS: mental status grossly normal Data : 08/02/20 14:00 08/02/20 14:00 A&P Assessment and plan (1) Ischemic cardiomyopathy: Status: Chronic (2) CHF (congestive heart failure): Status: Chronic (3) Hypertension: Status: Chronic Qualifiers: Hypertension type: essential hypertension Qualified Code(s): I10 - Essential (primary) hypertension (4) CAD (coronary artery disease): Status: Chronic (5) Type 2 diabetes mellitus: Status: Chronic Qualifiers: Diabetes mellitus watermelon inspector insulin use: without watermelon inspector use Diabetes mellitus complication status: with kidney complications Diabetes mellitus complication detail: with chronic kidney disease Chronic kidney disease stage: stage 3 (moderate) Chronic kidney disease stage 3 subtype: stage 3b (GFR 30-44) Qualified Code(s): E11.22 - Type 2 diabetes mellitus with diabetic chronic ki dney disease; N18.32 - Chronic kidney disease, stage 3b (6) 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 Currently he has acute on chronic CKD. He had troponin elevation which likely is from type II VA . NSTEMI is less likely. Stress test showed prior infarct in the LAD and left circumflex artery territory with mild urmila-infarct ischemia. Given his renal function, we will recommend continuing medical therapy unless patient develops significant chest pain/significant elevation of troponins. If patient ends up on permanent dialysis, we can consider performing coronary angiogram however given mild urmila- infarct ischemia, we should continue with medical management for now. Nephrology is on board for DOROTEO on CKD Continue aspirin and Plavix. Thank you for involving us with the care of this patient. Cardiology will sign off. Please call with questions we will continue to follow. 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 [facility] Fwd Diagnoses Ischemic cardiomyopathy I25.5 CHF (congestive heart failure) I50.9 Hypertension I10 Hypertension type: essential hypertension CAD (coronary artery disease) I25.10 Type 2 diabetes mellitus E11.22; N18.32 Diabetes mellitus assisted insulin use: without assisted use Diabetes mellitus complication status: with kidney complications Diabetes mellitus complication detail: with chronic kidney disease Chronic kidney disease stage: stage 3 (moderate) Chronic kidney disease stage 3 subtype: stage 3b (GFR 30-44) Combined systolic and diastolic congestive heart failure I50.42 Heart failure chronicity: chronic Peripheral arterial disease I73.9 Elevated troponin level R79.89
--- NOTE | 2020-07-27 09:54 | PC.NURSE ---
Dr. Benitez notified of patients low BP and HR, and holding metoprolol
[2020-07-27 10:09] LABS: Glucose Point of Care 152 mg/dL (70-110)
--- NOTE | 2020-07-27 11:54 | PC.SOCIAL ---
Pg 2 IMM Explained to pt Pg 2 IMM. No questions voiced. Provided pt a copy. Signed, dated, & timed a copy & placed in chart.
[2020-07-27] MEDS: enoxaparin 100 mg/mL Syringe 90 MG SUBCUT (12:32)
[2020-07-27 14:47] LABS: ALBUMIN 2.7 g/dL (3.8-4.8); ALPHA 1 GLOBULIN 0.4 g/dL (0.2-0.3); ALPHA 2 GLOBULIN 0.9 g/dL (0.5-0.9); BETA 1 GLOBULIN 0.3 g/dL (0.4-0.6); BETA 2 GLOBULIN 0.2 g/dL (0.2-0.5); GAMMA GLOBULIN 1.1 g/dL (0.8-1.7)
[2020-07-27 16:15] LABS: Glucose Point of Care 100 mg/dL (70-110)
[2020-07-27 20:21] LABS: Glucose Point of Care 130 mg/dL (70-110)
[2020-07-27] MEDS: atorvastatin 40 mg Tablet PO (21:26)
[2020-07-27] MEDS: metoprolol tartrate 25 mg Tablet PO (21:27)
[2020-07-27] MEDS: mirtazapine 15 mg Tablet PO (21:27)
--- NOTE | 2020-07-27 22:26 | P.PN_ITS ---
Subjective Subjective: Interval history: Stress test results did not show areas of significant reversible ischemia. Recommendation from cardiology standpoint is for medical management. Patient himself does not feel as good today. He is not as interactive with me. Does not describe any specific complaints. Hemoglobin is noted to be lower. No gross bleeding. Vitals/I&O/Wt Last Vital Signs Temp 98.3 F 07/27/20 19:48 Pulse 62 07/27/20 19:48 Resp 18 07/27/20 19:48 BP 157/68 07/27/20 19:48 Pulse Ox 97 07/27/20 19:48 07/27/20 07/27/20 07/27/20 06:59 14:59 22:59 Intake Total 120 / 120 340 / 460 Output Total 100 / 100 400 / 500 Balance -60 / -40 Physical Exam Narrative: EXAM NARRATIVE: Chronic ill appearance, not as interactive today but not tearful Clear to auscultation anteriorly Regular rhythm, murmur unchanged Abdomen soft, nontender, normal external genitalia Status post right BKA, no significant increase to lower extremity edema Data : 07/27/20 05:13 07/27/20 05:13 A&P Assessment and plan (1) Pyelonephritis of left kidney: ESBL E. coli currently on Primaxin Status: Acute (2) Acute worsening of stage 3 chronic kidney disease: Followed by nephrology, fully worsening renal function over time Status: Acute (3) NSTEMI (non-ST elevated myocardial infarction): Status: Acute (4) Ischemic cardiomyopathy: Ejection fraction 35 to 40% Status: Chronic (5) Type 2 diabetes mellitus: Status: Chronic Qualifiers: Diabetes mellitus senior living insulin use: without senior living use Diabetes mellitus complication status: with kidney complications Diabetes mellitus complication detail: with chronic kidney disease Chronic kidney disease stage: stage 3 (moderate) Chronic kidney disease stage 3 subtype: stage 3b (GFR 30-44) Qualified Code(s): E11.22 - Type 2 diabetes mellitus with diabetic chronic kidney disease; N18.32 - Chronic kidney disease, stage 3b (6) Seizure disorder: Status: Chronic (7) Anemia in CKD (chronic kidney disease): Status: Chronic (8) Peripheral arterial disease: Has been followed at wound care Status: Chronic (9) Encephalopathy: Status: Resolved Additional A&P Information Await approval from skilled facility. That has been in the works for several days Monitor mental status for significant change Drop in H&H could be iatrogenic in nature, delusional in nature. Do not see gross bleeding. Diuretics had been held recently setting of worsening renal dysfunction, positive fluid balance for stay though not large volume On day 5 of Primaxin On aspirin, statin, Plavix, isosorbide, metoprolol and as needed nitroglycerin Let patient know that he may eventually be heading towards requirement for hemodialysis and he will need close follow-up with nephrology on an outpatient basis Review of some records indicates that he had been on hospice previously; wants everything done presently. Simultaneously he becomes quite tearful when you talk about some of the more invasive things that may occur with aggressive management. We will need to continue to work with him when he is amendable to discussion On home Keppra Sliding scale insulin for diabetes On home PPI Hydrocodone if needed for moderate to severe pain Discontinue Lovenox in place of subcu heparin for DVT prophylaxis Full code We have not been able to reach patient's power of assistant prosecuting attorney though Dr. Davis was able to talk with his daughter. Attestations Medical Necessity Statement*: Requires ongoing inpatient stay for continued monitoring in the setting of worsening renal function at high risk of progression to needing dialysis as well as ongoing IV antibiotics for pyelonephritis and monitoring of overall volume status as noted above. Anticipation is for disposition to skilled facility in the next day or 2 Coding Level of Care Code Acute Drafter Assistant for g Fwd Diagnoses Pyelonephritis of left kidney N12 Acute worsening of stage 3 chronic kidney disease N18.30 NSTEMI (non-ST elevated myocardial infarction) I21.4 Ischemic cardiomyopathy I25.5 Type 2 diabetes mellitus E11.22; N18.32 Diabetes mellitus moth exterminator insulin use: without moth exterminator use Diabetes mellitus complication status: with kidney complications Diabetes mellitus complication detail: with chronic kidney disease Chronic kidney disease stage: stage 3 (moderate) Chronic kidney disease stage 3 subtype: stage 3b (GFR 30-44) Seizure disorder G40.909 Anemia in CKD (chronic kidney disease) N18.9; D63.1 Peripheral arterial disease I73.9 Encephalopathy G93.40
[2020-07-27] MEDS: heparin 5,000 unit/mL INJ 1 mL 5000 UNIT SUBCUT (23:37)
[2020-07-28] VITALS (8 sets, daily range): BP systolic 124–163; BP diastolic 58–68; PULSE 57–63; RESP 17–18; TEMP 36.6–36.9; O2SAT 95–97
[2020-07-28 06:20] LABS: Basophils % 0.6 %; Eosinophils # 0.5 10^3/uL (0.0-0.8); Eosinophils % 7.7 %; Hematocrit 26.1 % (42.0-52.0); Hemoglobin 8.4 g/dL (11.7-16.6); Lymphocytes # 1.3 10^3/uL (0.8-4.8); Mean Corpuscular HGB Conc 32.2 g/dL (30.0-36.0); Mean Corpuscular Hemoglobin 29.2 pg (28.0-34.0); Mean Corpuscular Volume 90.6 fL (80-94); Mean Platelet Volume 9.7 fL (7.4-10.4); Monocytes # 0.7 10^3/uL (0.2-0.9); Monocytes % 10.6 %; Neutrophils # 3.83 10^3/uL (1.8-7.7); Neutrophils % 60.5 %; Nucleated Red Blood Cells % 0 %; Platelet Count 181 10^3/cmm (130-400); Red Blood Count 2.88 10^6/uL (4.1-5.3); Red Cell Distribution Width 15.8 % (12.1-15.1); White Blood Count 6.3 10^3/uL (4.0-10.0)
[2020-07-28 06:37] LABS: Alanine Aminotransferase 16 U/L (0-41); Albumin Level 3.3 g/dL (3.5-5.2); Alkaline Phosphatase 53 IU/L (40-130); Aspartate Amino Transferase 18 U/L (0-40); Calcium 8.4 mg/dL (8.5-10.5); Carbon Dioxide 19 mmol/L (22-29); Chloride 106 mmol/L (98-107); Glucose 91 mg/dL (65-115); Magnesium 1.8 mg/dL (1.7-2.3); Osmolality Calculated 317 mOsm/kg (285-295); Phosphorus 6.4 mg/dL (2.5-4.5); Sodium 139 mmol/L (136-145); Total Bilirubin 0.2 mg/dL (0.15-1.2); Total Protein 6.3 g/dL (6.6-8.7)
[2020-07-28 06:46] LABS: Glucose Point of Care 98 mg/dL (70-110)
[2020-07-28 06:46] LABS: Blood Urea Nitrogen 95 mg/dL (8-23)
--- NOTE | 2020-07-28 07:49 | PM.PN ---
Subjective Subjective: Interval history: weak, lethargic, poor appetite, poor mood Medications: Reviewed: Yes Medication Review Details: Current Medications Acetaminophen (Acetaminophen 325 Mg Tablet) 650 mg PO Q6H PRN PRN Reason: MILD PAIN Last Admin: 07/27/20 23:39 Dose: 650 mg Documented by: Hydrocodone Bitart/Acetaminophen (Hydrocodone-Acetaminophen 5-325 Mg Tablet) 1 tab PO BID PRN PRN Reason: MODERATE TO SEVERE PAIN Aspirin (Aspirin 81 Mg Ec Tablet) 81 mg PO DAILY [facility] Last Admin: 07/27/20 09:11 Dose: 81 mg Documented by: Atorvastatin Calcium (Atorvastatin 40 Mg Tablet) 40 mg PO BEDTIME [facility] Last Admin: 07/27/20 21:26 Dose: 40 mg Documented by: Bisacodyl (Bisacodyl 10 Mg Supp) 10 mg UT DAILY PRN PRN Reason: Constipation Clopidogrel Bisulfate (Clopidogrel 75 Mg Tablet) 75 mg PO DAILY [facility] Last Admin: 07/27/20 09:13 Dose: 75 mg Documented by: Dextrose (Dextrose 50% Syringe 50 Ml) 25 ml IVP ONCE PRN; Protocol PRN Reason: hypoglycemia protocol Dextrose (Dextrose 50% Syringe 50 Ml) 50 ml IVP PRN PRN; Protocol PRN Reason: hypoglycemia protocol Glucagon (Glucagon 1 Mg/Ml Inj 1 Ml) 1 mg IM ONCE PRN; Protocol PRN Reason: Adult Acute Hypoglycemia Prot. Heparin Sodium (Beef Lung) (Heparin 5,000 Unit/Ml Inj 1 Ml) 5,000 unit SUBCUT Q12H [facility] Last Admin: 07/27/20 23:37 Dose: 5,000 unit Documented by: Hydralazine HCl (Hydralazine 50 Mg Tablet) 50 mg PO TID [facility] Last Admin: 07/23/20 21:04 Dose: 50 mg Documented by: Imipenem/Cilastatin Sodium 250 (mg/ Sodium Chloride) 100 mls @ 200 mls/hr IV Q12H [facility]; Protocol Last Infusion: 07/27/20 23:12 Dose: Infused Documented by: Insulin Aspart (Insulin Aspart 100 Unit/1 Ml) 0 unit SUBCUT WM&BEDTIME [facility]; Protocol Last Admin: 07/28/20 07:11 Dose: Not Given Documented by: Isosorbide Mononitrate (Isosorbide Mononitrate Er 30 Mg Tablet) 30 mg PO DAILY [facility] Last Admin: 07/27/20 09:11 Dose: 30 mg Documented by: Levetiracetam (Levetiracetam 500 Mg Tablet) 500 mg PO BID@0700,2100 [facility] Last Admin: 07/27/20 21:26 Dose: 500 mg Documented by: Metoprolol Tartrate (Metoprolol Tartrate 25 Mg Tablet) 25 mg PO Q12H [facility] Last Admin: 07/27/20 21:27 Dose: 25 mg Documented by: Mirtazapine (Mirtazapine 15 Mg Tablet) 15 mg PO BEDTIME [facility] Last Admin: 07/27/20 21:27 Dose: 15 mg Documented by: Ondansetron HCl (Ondansetron 2 Mg/Ml Sdv 2 Ml) 4 mg IVP Q2M PRN PRN Reason: NAUSEA Pantoprazole Sodium (Pantoprazole Dr 40 Mg Tablet) 40 mg PO BID@,18 [facility] Last Admin: 07/27/20 17:39 Dose: 40 mg Documented by: Senna/Docusate Sodium (Sennosides-Docusate Tablet) 1 tab PO DAILY [facility] Last Admin: 07/27/20 09:49 Dose: Not Given Documented by: Sevelamer Carbonate (Sevelamer 800 Mg Tablet) 1,600 mg PO TIDWM [facility] Last Admin: 07/27/20 17:39 Dose: 1,600 mg Documented by: Sodium Bicarbonate (Sodium Bicarbonate 650 Mg Tablet) 650 mg PO TID [facility] Last Admin: 07/27/20 21:27 Dose: 650 mg Documented by: Vitals/I&O/Wt Last Vital Signs Temp 98.4 F 07/28/20 07:33 Pulse 62 07/28/20 07:33 Resp 18 07/28/20 07:33 BP 159/58 07/28/20 07:33 Pulse Ox 97 07/28/20 07:33 07/27/20 07/28/20 07/28/20 22:59 06:59 14:59 Intake Total 340 / 460 100 / 560 Output Total 400 / 500 300 / 800 Balance -60 / -40 -200 / -240 Physical Exam Narrative: EXAM NARRATIVE: comfortable in bed, NARD VS noted heent- nc/at, eomi, anicteric neck supple lung b/l crackles heart RRR, +BARRY, s1, s2 abd soft, nt, nd, +BS ext -rt BKA, left minimal edema neuro- awake, lethargic, sad, depressed, o x2 pulses weak DP and PT pulses on left foot no rash Data : 07/28/20 05:16 07/28/20 05:16 A&P Additional A&P Information 1. Acute kidney injury- cr down from 5.2 - 4.6 back to 4.8 and now 5 -high ur na noted -monitor chemistries and uop - I am concerned for ATN, CRS, progression of CKD -i will give ivf, if no improvement in renal fxn or if develops CHF- consider initiating HD -discussed risks and benefits of dialysis w/ pt -lethargy- dec pain meds. 2. hyperkalemia- no ARB, low k diet 3. CKD stage 3b/4- b/l cr in NH was 2.2 Creatinine here between 2.9 and 5.4 mg/dl - likely DM and HTN nephrosclerosis -renal us- rt 10.6 cm, left 11.8 cm -even w/o cardiac cath- pt is likely marching towards ESRD, given proteinuria, elevated cr, and CHF 4. Pyelonephritis Currently receiving Primaxin urine culture is currently pending. It is noted that he has a history of ESBL E. coli and now has GNRs in his urine. 5. NSTEMI w/ ischemic CM- if needs cardiac cath- pt is at high renal risk for LUIS A and potentially needing temporary or permanent dialysis -however, I explained to the pt that he has known CAD, PVD, Dm, CKD, systolic CHF w/ Ef of 35-40%, and Grade 1 diastolic dysfunction -Pts w/ CKD, CAD, DM- have high cardiac mortality. - stress test 1. Medium sized perfusion abnormality of moderate severity of entrie anterior, mid to apical anterolateral, mid to apical inferior with reversibility in basal anterior and basal to mid anterolateral esparza. 2. This likely represents old myocardial infarction in left anterior descending and circumflex artery territory with mild urmila-infarct ischemia. In absence of prone imaging sub diaphragmatic attenuation artifact cannot be ruled out. 3. The left ventricular ejection fraction is moderately reduced with a value of 33%. There is global hypokinesis more pronounced in septal and apical esparza. 4. The perfusion pattern is consistent with an ischemic cardiomyopathy. If cardiology feels that cardiac cath would be beneficial, then renal would recommend proceeding as long as pt accepts dialysis - which he may need anyway -also pt can only be on appropriate CHF meds if he is on dialysis -if pt absolutely refuses dialysis, then would avoid cardiac cath 5. DM care per medicine 6, anemia- repeat iron studies- no iv iron- high ferritin and TSAT -started epo as hgb dropped to 8.3, now 8.4 7. Bone - mineral- metabolism of CKD- phos binder 8. met acidosis- as serum bicarb under 20, sodium bicarb pills -check abg Patient seen and examined via telemedicine, with the assistance of the bedside RN 30 min spent in evaluation and mgmt of patient Attestations Medical Necessity Statement*: trent, poor ms, CAD, ckd- monitoring for dialysis needs Time Spent in Patient Care: 16 - 35 minutes Coding Level of Care Code Acute Esthetician Spa for Chg Daniel
--- NOTE | 2020-07-28 08:30 | XR_ITS ---
WS: [id number] Portable AP semiupright chest, 07/28/2020 Clinical Data: DOROTEO Comparison: Portable chest, 06/27/2020. Findings: There is minimal patchy opacity overlying the left lower lobe. The heart is at the upper li mits of normal. The right lung is clear. Midline sternotomy sutures are present. Monitor leads are on the chest wall. The aortic arch shows calcification and tortuosity. XR/XR chest 2V insp/exp [id number] Impression: 1. Minimal patchy opacity overlying left lower lobe which could represent atele ctasis and/or pneumonia. 2. Atherosclerosis.
[2020-07-28] MEDS: sevelamer 800 mg Tablet 1600 MG PO ×3 (09:20→18:16)
[2020-07-28] MEDS: clopidogrel 75 mg Tablet PO (09:20)
[2020-07-28] MEDS: sodium bicarbonate 150 MEQ in dextrose 5% 1,000 ML 75 MEQ IV (09:20)
[2020-07-28] MEDS: aspirin 81 mg EC Tablet PO (09:21)
[2020-07-28] MEDS: metoprolol tartrate 25 mg Tablet PO ×2 (09:21→21:59)
[2020-07-28] MEDS: sennosides-docusate Tablet 1 TAB PO (09:21)
[2020-07-28] MEDS: levETIRAcetam 500 mg Tablet PO ×2 (09:21→22:00)
[2020-07-28] MEDS: pantoprazole DR 40 mg Tablet PO ×2 (09:21→18:16)
[2020-07-28] MEDS: isosorbide mononitrate ER 30 mg Tablet PO (09:21)
[2020-07-28 11:14] LABS: Glucose Point of Care 164 mg/dL (70-110)
[2020-07-28 12:12] LABS: CREATININE, 24 HOUR URINE 0.43 g/24 h (0.50-2.15); PROTEIN, TOTAL, 24 HR UR 1844 mg/24 h (<150); Protein/Creatinine Ratio 4310 mg/g creat (< OR = 114)
[2020-07-28] MEDS: heparin 5,000 unit/mL INJ 1 mL 5000 UNIT SUBCUT (12:39)
--- NOTE | 2020-07-28 13:26 | PC.NURSE ---
spoke with patients brother and patient regarding dialysis, both are agreeable to starting dialysis treatment. Dr. Benitez notified.
--- NOTE | 2020-07-28 14:08 | PM.PN ---
Subjective Subjective: Interval history: Reviewed patient's clinical scenario with Dr Jones this morning. Patient is nearing need for dialysis. I had a long discussion with patient again reviewing what dialysis is, that it requires placement of a dialysis catheter usually done in the neck or chest area as well as being hooked up to a machine for a while that filters his blood of toxins like the kidneys would normally do. Explained that it also helps with overall volume status. With his cardiac and renal issues, volume management is challenging. Described that there may be clinical improvement in how he feels with dialysis but that there was no guarantee. We talked about the fact that dialysis is usually required several times a week once is initiated. Patient reviewed everything with his brother Tima and after consideration for his goals of care, decision was made to proceed with dialysis and the necessary line placement to achieve this. Dr. Jones was notified. He will put in appropriate orders and contact surgery for line placement Medications: Reviewed: Yes Medication Review Details: Held anticoagulation in anticipation of hemodialysis catheter placement Vitals/I&O/Wt Last Vital Signs Temp 98.1 F 07/28/20 11:30 Pulse 62 07/28/20 11:30 Resp 17 07/28/20 11:30 BP 124/62 07/28/20 11:30 Pulse Ox 97 07/28/20 11:30 07/27/20 07/28/20 07/28/20 22:59 06:59 14:59 Intake Total 340 / 460 100 / 560 820 / 820 Output Total 400 / 500 300 / 800 Balance -60 / -40 -200 / -240 820 / 820 Physical Exam Narrative: EXAM NARRATIVE: Patient was awake and alert during my discussion. He was engaged and asked some questions. He does seem more tired today. Decreased breath sounds in the right base but lying on his right side. Otherwise clear. No accessory muscle use. Regular rhythm. Abdomen soft. Right BKA site with some mild erythema which I asked nursing to radha with surgical marker. There are some scabbing along the suture line. No oozing, no fluctuance, incision is grossly intact. Moves all extremities. Smiled at me a couple of times during conversation. Data : 07/28/20 05:16 07/28/20 05:16 Micro: Microbiology 07/23/20 13:42 Blood Culture - Final Blood NO GROWTH AFTER 5 DAYS 07/23/20 13:40 Blood Culture - Final Blood NO GROWTH AFTER 5 DAYS A&P Assessment and plan (1) Pyelonephritis of left kidney: ESBL E. coli currently on Primaxin day, white count was normal, no fever. May be bacteriuria/colonization rather than infection, particularly with low colony counts. Pyelonephritis was diagnosed primarily on finding from CT scan of the perinephric stranding. Treated empirically due to comorbid conditions and presentation. Status: Acute (2) Acute worsening of stage 3 chronic kidney disease: Followed by nephrology, progressing to stage V/need for dialysis Status: Acute (3) NSTEMI (non-ST elevated myocardial infarction): With peak troponin of 238. Stress test showed some areas of ischemia, likely old. Cardiology has seen and current recommendations are for medical management. Status: Acute (4) Ischemic cardiomyopathy: Ejection fraction 35 to 40% Status: Chronic (5) Type 2 diabetes mellitus: Longstanding diagnosis, not on treatment, most recent hemoglobin A1c at 5.6. Has had A1c's greater than 7 on several occasions. 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: without care home use Diabetes mellitus complication status: with kidney complications Diabetes mellitus complication detail: with chronic kidney disease Chronic kidney disease stage: stage 3 (moderate) Chronic kidney disease stage 3 subtype: stage 3b (GFR 30-44) Qualified Code(s): E11.22 - Type 2 diabetes mellitus with diabetic chronic kidney disease; N18.32 - Chronic kidney disease, stage 3b (6) Seizure disorder: on Keppra Status: Chronic (7) Anemia in CKD (chronic kidney disease): Status: Chronic (8) Peripheral arterial disease: Has been followed at wound care, s/p prior right BKA for critical limb ischemia Status: Chronic (9) Encephalopathy: Improved. I do think that there is a probable component of what is perceived as alteration in mental status that is intentional at times when he is overwhelmed and does not want to talk about what is going on. For example when I talked to him yesterday he Is eyes closed and did not answer me. Today he kept his eyes open, interacted with me and recalled things that I had previously mentioned regarding dialysis. Status: Resolved (10) Status post below knee amputation of right lower extremity: Patient complained of some itching at stump, some erythema noted and marked, suture line otherwise looks intact Status: Acute Additional A&P Information Surgery to see for tunneled catheter placement for dialysis >> discussed briefly with Dr. Davenport. In addition to holding heparin, will hold Plavix, order type and screen for in the morning Check Covid test for preprocedure Tentative anticipation is for dialysis to start tomorrow pending on when line is placed Verbal consent was obtained from patient who also discussed with his brother over the phone and reported to nurse that he also agreed. VTE prophylaxis held secondary to anticipation of procedure On day 5 of Primaxin Triple antibiotic ointment to stump On aspirin, statin, Plavix, isosorbide, metoprolol and as needed nitroglycerin On home Keppra Sliding scale insulin for diabetes as needed On home PPI Hydrocodone if needed for moderate to severe pain, only has twice a day options for dosing as needed On subcu heparin for DVT prophylaxis although this is being held in anticipation of line placement for dialysis Supportive care otherwise Patient talk to Tima his brother today and updated him, reviewing plans for dialysis. I did not talk to Tima myself. Nurse was able to verify that Tima was also in agreement with proceeding to dialysis as patient described. Ultimate disposition will be back to skilled facility Full code Attestations Medical Necessity Statement*: Requires ongoing inpatient stay for continued management of comorbid conditions, most recently progressive renal disease necessitating initiation of hemodialysis. Plans are as indicated. Coding Level of Care Code Acute Hardboard Panel Printer for [facility] Diagnoses Pyelonephritis of left kidney N12 Acute worsening of stage 3 chronic kidney disease N18.30 NSTEMI (non-ST elevated myocardial infarction) I21.4 Ischemic cardiomyopathy I25.5 Type 2 diabetes mellitus E11.22; N18.32 Diabetes mellitus care home insulin use: without termite control technician use Diabetes mellitus complication status: with kidney complications Diabetes mellitus complication detail: with chronic kidney disease Chronic kidney disease stage: stage 3 (moderate) Chronic kidney disease stage 3 subtype: stage 3b (GFR 30-44) Seizure disorder G40.909 Anemia in CKD (chronic kidney disease) N18.9; D63.1 Peripheral arterial disease I73.9 Encephalopathy G93.40 Status post below knee amputation of right lower extremity Z89.511
--- NOTE | 2020-07-28 14:15 | PC.NUTR ---
Assessment completed. Recommend change to Renal diabetic non-dialysis diet. Verbal order entered per Dr. Benitez. Recommend addition of Glucerna 1x/day d/t recent unintentional wt loss. Recommend monitor K, Phos, and other labs. Will follow-up as appropriate.
[2020-07-28 16:50] LABS: Glucose Point of Care 149 mg/dL (70-110)
--- NOTE | 2020-07-28 17:01 | P.CONIM_ITS ---
Providers/Reason For Consult Consulting Physican/Specialty*: Dr. Benitez/Dr. Lopez Reason for Consult*: End-stage renal disease Requesting Physcian: Hugo Davenport MD Attending Physician: Nora Benitez MD Primary Care Provider: Sajan Jack Jr, MD History of Present Illness History of Present Illness Chief Complaint: Feeling weak History of present illness: Mr. Moy Fernandez is a pleasant 70 year old male well-known to me from previous clinical encounters as I did perform right below the knee amputation for complicated diabetic foot infection. Patient is a [facility] resident and was admitted to the hospitalist service because of worsening weakness, patient does have other multiple medical comorbidities in the form of ischemic cardiomyopathy, non-STEMI, congestive heart failure, encephalopathy, hypertension, coronary artery disease, type 2 diabetes mellitus, seizure disorder, peripheral arterial disease, polyneuropathy, and pyelonephritis of left kidney. Based on the fact that the patient has deteriorating kidney functions General surgery was consulted for placement of tunneled hemodialysis catheter. Review of Systems General: Reports: 10 or more systems reviewed and unremarkable except in HPI and below Meds/Allergies Home Medications and Allergies Home Medications Medication Instructions Recorded Confirmed Last Taken Type acetaminophen 650 mg PO Q4H PRN 02/14/20 07/23/20 02/06/20 History ondansetron HCl [Zofran] 4 mg PO Q6H PRN 02/14/20 07/23/20 02/13/20 08:41 History atropine 1 % eye drops 1 drp OPHTHALMIC (EYE) BID 04/26/20 07/23/20 07/22/20 History ascorbic acid (vitamin C) [Vitamin 500 mg PO DAILY@0800 07/23/20 07/23/20 07/22/20 History C] bisacodyl 10 mg [place] DAILY PRN 07/23/20 07/23/20 Unknown History bumetanide 1 mg PO BID@07/23/20 07/23/20 07/22/20 History [id number]-acetaminophen 1 packet PO Q4H PRN 07/23/20 07/23/20 07/22/20 History [[place] Plus Cold+Flu] hydrocodone-acetaminophen 1 tab PO BID PRN 07/23/20 07/23/20 07/22/20 History levetiracetam [Keppra] 500 mg PO BID@0700,2100 07/23/20 07/23/20 07/22/20 History pantoprazole 40 mg PO BID@06,18 07/23/20 07/23/20 07/22/20 History Allergies Allergy/AdvReac Type Severity Reaction Status Date / Time No Known Allergies Allergy Verified 07/28/20 17:26 Current Medications Current Medications Generic Name Dose Route Start Last Admin Trade Name Jose Angelq PRN Reason Stop Dose Admin Acetaminophen 650 mg 07/26/20 23:26 07/27/20 23:39 Acetaminophen 325 Mg Tablet PO 650 mg Q6H PRN Administration MILD PAIN Aspirin 81 mg 07/24/20 09:30 07/28/20 09:21 Aspirin 81 Mg Ec Tablet PO 81 mg DAILY [facility] Administration Atorvastatin Calcium 40 mg 07/24/20 21:00 07/27/20 21:26 Atorvastatin 40 Mg Tablet PO 40 mg BEDTIME [facility] Administration Clopidogrel Bisulfate 75 mg 07/24/20 09:30 07/28/20 09:20 Clopidogrel 75 Mg Tablet PO 75 mg DAILY [facility] Administration Heparin Sodium (Beef Lung) 5,000 unit 07/27/20 23:00 07/28/20 12:39 Heparin 5,000 Unit/Ml Inj 1 Ml SUBCUT 5,000 unit Q12H [facility] Administration Hydralazine HCl 50 mg 07/23/20 17:35 07/23/20 21:04 Hydralazine 50 Mg Tablet PO 50 mg TID [facility] Administration Imipenem/Cilastatin Sodium 250 100 mls @ 200 mls/hr 07/23/20 10:00 07/28/20 11:05 mg/ Sodium Chloride IV Infused Q12H [facility] Infusion Protocol Sodium Bicarbonate 150 meq/ 1,150 mls @ 75 mls/hr 07/28/20 08:30 07/28/20 09:20 Dextrose IV 75 mls/hr .[id number] [facility] Administration Insulin Aspart 0 unit 07/23/20 08:00 07/28/20 12:41 Insulin Aspart 100 Unit/1 Ml SUBCUT Not Given WM&BEDTIME [facility] Protocol Isosorbide Mononitrate 30 mg 07/24/20 09:30 07/28/20 09:21 Isosorbide Mononitrate Er 30 Mg Tablet PO 30 mg DAILY [facility] Administration Levetiracetam 500 mg 07/27/20 07:00 07/28/20 09:21 Levetiracetam 500 Mg Tablet PO 500 mg BID@0700,2100 [facility] Administration Metoprolol Tartrate 25 mg 07/24/20 09:30 07/28/20 09:21 Metoprolol Tartrate 25 Mg Tablet PO 25 mg Q12H [facility] Administration Mirtazapine 15 mg 07/23/20 21:00 07/27/20 21:27 Mirtazapine 15 Mg Tablet PO 15 mg BEDTIME [facility] Administration Pantoprazole Sodium 40 mg 07/27/20 06:00 07/28/20 09:[address] 40 Mg Tablet PO 40 mg BID@06,18 [facility] Administration Senna/Docusate Sodium 1 tab 07/23/20 09:00 07/28/20 09:21 Sennosides-Docusate Tablet PO 1 tab DAILY [facility] Administration Sevelamer Carbonate 1,600 mg 07/27/20 08:30 07/28/20 12:39 Sevelamer 800 Mg Tablet PO 1,600 mg TIDWM [facility] Administration PFSH Acute PFSH: Medical History Anemia in CKD (chronic kidney disease) Atherosclerotic heart disease of [place] coronary artery without angina pectoris CHF (congestive heart failure) Chronic ulcer of ankle CKD (chronic kidney disease), stage III baseline Cr is around 3.5-4 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 coli infection Hypertension Multilevel degenerative disc disease has known hx of multilevel DJD, s/p spinal stimulator Peripheral neuropathy Polyneuropathy in other diseases classified elsewhere Seizure disorder Spinal cord stimulator status Spinal stenosis Type 2 diabetes mellitus Surgical History S/P CABG x 3 S/P insertion of spinal cord stimulator Status post below knee amputation of right lower extremity Family History Other Hyperlipidemia Hypertension Denies family history of Psychiatric illness Lung disease Social History Smoking and tobacco status: former smoker Alcohol intake: former Lives independently: No (Brother is his power of attorney law clerk, recently has had to be involved in more decisions) Housing: Correction Current occupation: Living alone, he was discharged to home with home hospice Vitals/I&O/Wt Last Vital Signs Temp 97.9 F 07/28/20 16:00 Pulse 63 07/28/20 16:00 Resp 17 07/28/20 16:00 BP 163/68 07/28/20 16:00 Pulse Ox 96 07/28/20 16:00 07/28/20 07/28/20 07/28/20 06:59 14:59 22:59 Intake Total 100 / 560 820 / 820 Output Total 300 / 800 Balance -200 / -240 820 / 820 Physical Exam Narrative: EXAM NARRATIVE: Patient is conscious alert oriented BMI 26.4 Head and neck examination PERRLA no masses no cervical lymphadenopathy no jaundice Cardiac examination audible S1-S2 no murmurs no gallops no arrhythmias Chest is clear bilateral,abscence of Rhonchi or wheezes,no surgical emphysema Presence of previous midline sternotomy Abdomen nontender nondistended soft no organomegaly guarding or rigidity/no signs of peritonitis Right below the knee amputation stump dry clean and intact Data Micro: Micro: Microbiology 07/23/20 13:42 Blood Culture - Fi nal Blood NO GROWTH AFTER 5 DAYS 07/23/20 13:40 Blood Culture - Fi nal Blood NO GROWTH AFTER 5 DAYS A&P Assessment and plan (1) Acute worsening of stage 3 chronic kidney disease: Plan of care; After thorough history physical examination and reviewing the chart and reviweing the images iwth my personal intrepretation.I counseled the patient for tunneled hemodialysis catheter placement, indications, risks including pneumothorax that may require Chest tube(s) placement and potential injury of major vascular structures that may require Thoractomy, benefits,indications and alternatives were all discussed with the patient and patient's brother Mr. Sajan Fernandez as he is the power of attorney law clerk in the presence of nursing staff Felipa, patient and his brother understand and both are interested to proceed. Rationale was carefully and clearly discussed with the patient and his brother.Appropriate informed consent have been reviewed and signed. Patient did receive Plavix today and accordingly I did request from Dr. Benitez to have 1 pack of fresh frozen plasma available tomorrow at the time of the procedure to infuse to minimize risk of bleeding. Thank you for consulting general surgery to participate taking care Mr. Fernandez Status: Acute Consult Attestations Medical Necessity Statement: Continue inpatient hospitalization for medical care and placement of tunneled hemodialysis catheter Time Spent in Patient Care: 16 - 35 minutes (>than 50% of time spent in counselling and/or direct pt care on unit) . Coding Level of Care Code Acute Client Specialist for Brandy Sanchez Diagnoses Acute worsening of stage 3 chronic kidney disease N18.30
[2020-07-28] MEDS: neomycin-poly-bacitracin oint 28 gm 1 APPLIC TOPICAL (18:15)
[2020-07-28] MEDS: acetaminophen 325 mg Tablet 650 MG PO (18:15)
[2020-07-28 18:19] LABS: ABG PCO2 32.5 mmHg (35-45); ABG PH Result 7.39 (7.35-7.45); Alveolar-Arterial Oxygen Gradi 0.6 mmHg (5-10); Arterial Blood Gas Hematocrit 33.3 % (42-52); Base Excess ABG -4.6 mmol/L (-2.0-2.0); Blood Gas Allen Test Pos; Blood Gas Operator Identificat glc; Blood Gas Sample Site Radial, left; Blood Gas Sample Type Arterial; Carboxyhemoglobin 0.6 %THgb (0.4-20.1); HCO3 ABG 19.6 mmol/L (22-26); HGB O2 Sat 96.7 % (95-100); Ionized Calcium Level - ABG 1.2 mmol/L (1.1-1.4); Methemoglobin 1.2 % (0.4-1.5); Oxygen Device ROOM AIR; Oxygen Saturation ABG 98.4; Potassium Level - ABG 5.4 mmol/L (3.5-5.0); Total Hemoglobin 10.9 g/dL (14-18)
[2020-07-28 20:50] LABS: Glucose Point of Care 190 mg/dL (70-110)
[2020-07-28] MEDS: mirtazapine 15 mg Tablet PO (22:00)
[2020-07-28] MEDS: atorvastatin 40 mg Tablet PO (22:00)
[2020-07-28 22:01] LABS: Hepatitis B Surface AB 3.5 (11.5-1000); Hepatitis B Surface Antigen Non-Reactive (Nonreactive); Hepatitis C Virus Antibody Non-Reactive (Nonreactive)
[2020-07-29] VITALS (18 sets, daily range): BP systolic 147–193; BP diastolic 62–90; PULSE 53–73; RESP 14–18; TEMP 1.9–36.9; O2SAT 94–100
--- NOTE | 2020-07-29 | SCC_ITS ---
Procedure Done: Placement of right internal jugular vein tunneled hemodialysis catheter 16 [place]ian/32 CM 28.1 seconds of fluoroscopic guidance, for a cumulative dose of 9.98 mGy, was provided to Dr. Davenport by the radiology department. C-arm images of the chest were saved for the patient's permanent record. [facility]
[2020-07-29 00:30] LABS: SARS Covid-2 Antigen Negative (Negative)
[2020-07-29 02:36] LABS: Basophils # 0.1 10^3/uL (0.0-0.1); Basophils % 0.9 %; Eosinophils # 0.5 10^3/uL (0.0-0.8); Eosinophils % 7.3 %; Hematocrit 26.9 % (42.0-52.0); Hemoglobin 8.4 g/dL (11.7-16.6); Lymphocytes # 1.3 10^3/uL (0.8-4.8); Lymphocytes % 20.2 %; Mean Corpuscular HGB Conc 31.2 g/dL (30.0-36.0); Mean Corpuscular Hemoglobin 29.1 pg (28.0-34.0); Mean Corpuscular Volume 93.1 fL (80-94); Mean Platelet Volume 9.6 fL (7.4-10.4); Monocytes # 0.6 10^3/uL (0.2-0.9); Monocytes % 9.7 %; Neutrophils # 4.03 10^3/uL (1.8-7.7); Neutrophils % 61.1 %; Nucleated Red Blood Cells % 0 %; Platelet Count 181 10^3/cmm (130-400); Red Blood Count 2.89 10^6/uL (4.1-5.3); Red Cell Distribution Width 16.3 % (12.1-15.1); White Blood Count 6.6 10^3/uL (4.0-10.0)
[2020-07-29 02:48] LABS: Alanine Aminotransferase 13 U/L (0-41); Albumin Level 2.9 g/dL (3.5-5.2); Alkaline Phosphatase 49 IU/L (40-130); Anion Gap 17.3 (5-19); Aspartate Amino Transferase 15 U/L (0-40); Calcium 8.2 mg/dL (8.5-10.5); Carbon Dioxide 20 mmol/L (22-29); Chloride 110 mmol/L (98-107); Globulin 2.9 g/dL (1.3-4.6); Glucose 87 mg/dL (65-115); Magnesium 1.7 mg/dL (1.7-2.3); Osmolality Calculated 325 mOsm/kg (285-295); Phosphorus 5.1 mg/dL (2.5-4.5); Potassium 5.3 mmol/L (3.5-5.1); Sodium 142 mmol/L (136-145); Total Bilirubin 0.2 mg/dL (0.15-1.2); Total Protein 5.8 g/dL (6.6-8.7)
[2020-07-29 02:54] LABS: Blood Urea Nitrogen 100 mg/dL (8-23)
--- NOTE | 2020-07-29 06:31 | SC_ITS ---
WS: [id number] C-arm fluoroscopy for dialysis placement, 07/29/2020 Clinical Data: Placement of tunneled hemodialysis catheter Comparison: Portable chest, 07/28/2020 Findings: The right dialysis catheter has been inserted. No pneumothorax is seen. SC/C-arm FL for CVA [id number] Impression: Insertion of dialysis catheter.
[2020-07-29] MEDS: sodium chloride 0.9% 1,000 ML 30 ML IV (06:55)
--- NOTE | 2020-07-29 07:56 | ANES.PREANE2 ---
Pre-Anesthetic Assessment Pre-Anesthetic Assessment: Height/Weight: Height 1.8 m Weight 85.729 kg Temp Pulse Resp BP Pulse Ox 35.4 F L 53 L 18 162/65 96 07/29/20 07:35 07/29/20 06:54 07/29/20 06:54 07/29/20 06:54 07/29/20 06:54 Preop Diagnosis: End-stage renal disease Proposed Procedure: Operation Date: 07/29/20 07:00 Proposed Procedures p Dialysis Catheter Insertion(Not Applicable) - Hugo Davenport MD Was Beta Nina taken within 24 hours: N/A Was Clonidine taken within 24 hours: N/A Last intake: Intake Last Liquid Date 07/28/20 Social: Social History: No alcohol and No tobacco Exam: Pre-Anes Outpt Exam: alert, oriented x 3, clear to auscultation bilaterally and regular rate & rhythm Airway: Submandibular: WNL Cervical ROM: WNL MP: 1 Dentition: False Pulmonary: Pulmonary: SOB CV/HEM: CV/HEM: CAD, CHF and HTN : : Chronic renal Insufficiency Hepatic: Hepatic: None reported GI: GI: GERD [facility] [place]el: Musc/skel: None reported Neuropsych: Neuropsych: Dementia and Seizure Anesthetic Plan: ASA status: 3 Anesthesia: MAC Meds/Allergies Current Medications: Current Medications Generic Name Dose Route Start Last Admin Trade Name Freq PRN Reason Stop Dose Admin Acetaminophen 650 mg 07/26/20 23:26 07/28/20 18:15 Acetaminophen 32 5 Mg Tablet PO 650 mg Q6H PRN Administration MILD PAIN Aspirin 81 mg 07/24/20 09:30 07/28/20 09:21 Aspirin 81 Mg Ec Tablet PO 81 mg DAILY YANELI Administration Atorvastatin Calci um 40 mg 07/24/20 21:00 07/28/20 22:00 Atorvastatin 40 Mg Tablet PO 40 mg BEDTIME YANELI Administration Imipenem/Cilastati n Sodium 250 100 mls @ 200 mls /hr 07/23/20 10:00 07/28/20 21:58 mg/ Sodium Chlor nikia IV 200 mls/hr Q12H YANELI Administration Protocol Sodium Bicarbonate 150 meq/ 1,150 mls @ 75 ml s/hr 07/28/20 08:30 07/28/20 09:20 Dextrose IV 75 mls/hr .[id number] YANELI Administration Sodium Chloride 1,000 mls @ 30 ml s/hr 07/29/20 06:45 07/29/20 06:55 Sodium Chloride 0.9% IV 30 mls/hr .Q24H YANELI Administration Insulin Aspart 0 unit 07/23/20 08:00 07/28/20 22:46 Insulin Aspart 1 00 Unit/1 Ml SUBCUT 4 unit WM&BEDTIME YANELI Administration Protocol Isosorbide Mononit rate 30 mg 07/24/20 09:30 07/28/20 09:21 Isosorbide [place] itrate Er 30 Mg Ta blet PO 30 mg DAILY YANELI Administration Levetiracetam 500 mg 07/27/20 07:00 07/28/20 22:00 Levetiracetam 50 0 Mg Tablet PO 500 mg BID@0700,2100 YANELI Administration Metoprolol Tartrat e 25 mg 07/24/20 09:30 07/28/20 21:59 Metoprolol Tartr ate 25 Mg Tablet PO 25 mg Q12H YANELI Administration Mirtazapine 15 mg 07/23/20 21:00 07/28/20 22:00 Mirtazapine 15 M g Tablet PO 15 mg BEDTIME YANELI Administration Neomycin/Polymyxin /Bacitracin 1 applic 07/28/20 18:00 07/28/20 18:15 Rvtyjnsg-Tewg-Wv citracin Oint 28 G m TOPICAL 1 applic BID YANELI Administration Pantoprazole Sodiu m 40 mg 07/27/20 06:00 07/28/20 18:[address] 40 Mg Tablet PO 40 mg BID@06,18 YANELI Administration Senna/Docusate Sod ium 1 tab 07/23/20 09:00 07/28/20 09:21 Sennosides-Docus ate Tablet PO 1 tab DAILY YANELI Administration Sevelamer Carbonat e 1,600 mg 07/27/20 08:30 07/28/20 18:16 Sevelamer 800 Mg Tablet PO 1,600 mg TIDWM YANELI Administration Additional Medication Information: Held anticoagulation in anticipation of hemodialysis catheter placement PFSH Anesthesia PFSH: Medical History Anemia in CKD (chronic kidney disease) Atherosclerotic heart disease of [place] coronary artery without angina pectoris CHF (congestive heart failure) Chronic ulcer of ankle CKD (chronic kidney disease), stage III baseline Cr is around 3.5-4 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 coli infection Hypertension Multilevel degenerative disc disease has known hx of multilevel DJD, s/p spinal stimulator Peripheral neuropathy Polyneuropathy in other diseases classified elsewhere Seizure disorder Spinal cord stimulator status Spinal stenosis Type 2 diabetes mellitus Surgical History S/P CABG x 3 S/P insertion of spinal cord stimulator Status post below knee amputation of right lower extremity Family History Other Hyperlipidemia Hypertension Denies family history of Psychiatric illness Lung disease Social History Smoking and tobacco status: former smoker Alcohol intake: former Lives independently: No (Brother is his power of state attorney, recently has had to be involved in more decisions) Housing: Residential Current occupation: Living alone, he was discharged to home with home hospice Data Anesthesia CBC & Chem 7: 07/29/20 02:20 07/29/20 02:20 Other Labs: Laboratory Results - last 48 hr 07/25/20 07/25/20 07/27/20 06:38 16:00 10:03 WBC RBC Hgb Hct MCV MCH MCHC RDW Plt Count MPV Neut % (Auto) Lymph % (Auto) [place] % (Auto) Eos % (Auto) Baso % (Auto) Neut # (Auto) Lymph # (Auto) [place] # (Auto) Eos # (Auto) Baso # (Auto) Nucleated RBC % (auto) Nucleated RBCs # Specimen Type Sample Site ABG pH ABG pCO2 ABG pO2 ABG HCO3 ABG O2 Saturation ABG Base Excess [place] Test A-a O2 Gradient Hematocrit Hgb O2 Saturation Carboxyhemoglobin Methemoglobin Total Hemoglobin Ionized Calcium O2 Delivery Device FiO2 Photonic Laboratory Technician ID Sodium Potassium Chloride Carbon Dioxide Anion Gap BUN Creatinine GFR Calculation Glucose POC Glucose 152 H Calculated Osmolality Calcium Phosphorus Magnesium Total Bilirubin AST ALT Alkaline Phosphatase Total Protein Albumin 2.7 L Globulin Xjqou-1-Wzcnzwsnp 0.4 H Dawfw-7-Mnwsqkgcz 0.9 Rjjs-3-Xsewtwfy 0.3 L Pxfw-6-Zuhxemas 0.2 Gamma Globulins 1.1 Abnorm Protein Band 1 Not Reportable Ur Creatinine 24 Hour 0.43 L Ur Total Protein 24 Hr 1844 H Protein/Creatinin Ratio 4310 H Protein/Creat Ratio 24h 4.310 H U Abnormal Prot Band 2 Not Reportable U Abnormal Prot Band 3 Not Reportable Pro Electrophoresis Int See note Hep Bs Antigen Hep Bs Antibody Hepatitis C Antibody SARS-CoV-2 Ag (Rapid) Blood Type Rho(D) Type Antibody Screen 07/27/20 07/27/20 07/28/20 16:07 19:45 00:59 WBC RBC Hgb Hct MCV MCH MCHC RDW Plt Count MPV Neut % (Auto) Lymph % (Auto) [place] % (Auto) Eos % (Auto) Baso % (Auto) Neut # (Auto) Lymph # (Auto) [place] # (Auto) Eos # (Auto) Baso # (Auto) Nucleated RBC % (auto) Nucleated RBCs # Specimen Type Sample Site ABG pH ABG pCO2 ABG pO2 ABG HCO3 ABG O2 Saturation ABG Base Excess [place] Test A-a O2 Gradient Hematocrit Hgb O2 Saturation Carboxyhemoglobin Methemoglobin Total Hemoglobin Ionized Calcium O2 Delivery Device FiO2 Photonic Laboratory Technician ID Sodium Potassium Chloride Carbon Dioxide Anion Gap BUN Creatinine GFR Calculation Glucose POC Glucose 100 130 H Calculated Osmolality Calcium Phosphorus Magnesium Total Bilirubin AST ALT Alkaline Phosphatase Total Protein Albumin Globulin Owcjc-3-Jkzwbcucq Towhs-5-Kxmlbtbau Qvit-6-Djwrsubg Vaqe-8-Lzuemppk Gamma Globulins Abnorm Protein Band 1 Ur Creatinine 24 Hour Ur Total Protein 24 Hr Protein/Creatinin Ratio Protein/Creat Ratio 24h U Abnormal Prot Band 2 U Abnormal Prot Band 3 Pro Electrophoresis Int Hep Bs Antigen Hep Bs Antibody Hepatitis C Antibody SARS-CoV-2 Ag (Rapid) Negative Blood Type Rho(D) Type Antibody Screen 07/28/20 07/28/20 07/28/20 05:16 05:16 05:16 WBC 6.3 RBC 2.88 L Hgb 8.4 L Hct 26.1 L MCV 90.6 MCH 29.2 MCHC 32.2 RDW 15.8 H Plt Count 181 MPV 9.7 Neut % (Auto) 60.5 Lymph % (Auto) 20.0 [place] % (Auto) 10.6 Eos % (Auto) 7.7 Baso % (Auto) 0.6 Neut # (Auto) 3.83 Lymph # (Auto) 1.3 [place] # (Auto) 0.7 Eos # (Auto) 0.5 Baso # (Auto) 0.0 Nucleated RBC % (auto) 0 Nucleated RBCs # 0.0 Specimen Type Sample Site ABG pH ABG pCO2 ABG pO2 ABG HCO3 ABG O2 Saturation ABG Base Excess [place] Test A-a O2 Gradient Hematocrit Hgb O2 Saturation Carboxyhemoglobin Methemoglobin Total Hemoglobin Ionized Calcium O2 Delivery Device FiO2 Photonic Laboratory Technician ID Sodium 139 Potassium 5.0 Chloride 106 Carbon Dioxide 19 L Anion Gap 19.0 BUN 95 H* Creatinine 5.0 H GFR Calculation Not Reportable Glucose 91 POC Glucose Calculated Osmolality 317 H Calcium 8.4 L Phosphorus 6.4 H Magnesium 1.8 Total Bilirubin 0.2 AST 18 ALT 16 Alkaline Phosphatase 53 Total Protein 6.3 L Albumin 3.3 L Globulin 3.0 Lzxyh-4-Qaayvxaxn Jxyqs-7-Jejnfdlhe Kafm-8-Zttfojyc Movi-9-Xiayvcmr Gamma Globulins Abnorm Protein Band 1 Ur Creatinine 24 Hour Ur Total Protein 24 Hr Protein/Creatinin Ratio Protein/Creat Ratio 24h U Abnormal Prot Band 2 U Abnormal Prot Band 3 Pro Electrophoresis Int Hep Bs Antigen Non-reactive Hep Bs Antibody 3.5 L Hepatitis C Antibody Non-reactive SARS-CoV-2 Ag (Rapid) Blood Type Rho(D) Type Antibody Screen 07/28/20 07/28/20 07/28/20 06:27 10:50 16:44 WBC RBC Hgb Hct MCV MCH MCHC RDW Plt Count MPV Neut % (Auto) Lymph % (Auto) [place] % (Auto) Eos % (Auto) Baso % (Auto) Neut # (Auto) Lymph # (Auto) [place] # (Auto) Eos # (Auto) Baso # (Auto) Nucleated RBC % (auto) Nucleated RBCs # Specimen Type Sample Site ABG pH ABG pCO2 ABG pO2 ABG HCO3 ABG O2 Saturation ABG Base Excess [place] Test A-a O2 Gradient Hematocrit Hgb O2 Saturation Carboxyhemoglobin Methemoglobin Total Hemoglobin Ionized Calcium O2 Delivery Device FiO2 Photonic Laboratory Technician ID Sodium Potassium Chloride Carbon Dioxide Anion Gap BUN Creatinine GFR Calculation Glucose POC Glucose 98 164 H 149 H Calculated Osmolality Calcium Phosphorus Magnesium Total Bilirubin AST ALT Alkaline Phosphatase Total Protein Albumin Globulin Ldpsf-7-Siftzzlda Ouoym-6-Dpdcnehbf Figo-3-Fmfukeyl Ushd-1-Nklrhahc Gamma Globulins Abnorm Protein Band 1 Ur Creatinine 24 Hour Ur Total Protein 24 Hr Protein/Creatinin Ratio Protein/Creat Ratio 24h U Abnormal Prot Band 2 U Abnormal Prot Band 3 Pro Electrophoresis Int Hep Bs Antigen Hep Bs Antibody Hepatitis C Antibody SARS-CoV-2 Ag (Rapid) Blood Type Rho(D) Type Antibody Screen 07/28/20 07/28/20 07/28/20 18:00 20:43 22:53 WBC RBC Hgb Hct MCV MCH MCHC RDW Plt Count MPV Neut % (Auto) Lymph % (Auto) [place] % (Auto) Eos % (Auto) Baso % (Auto) Neut # (Auto) Lymph # (Auto) [place] # (Auto) Eos # (Auto) Baso # (Auto) Nucleated RBC % (auto) Nucleated RBCs # Specimen Type Arterial Sample Site Radial, left ABG pH 7.39 ABG pCO2 32.5 L ABG pO2 104.0 H ABG HCO3 19.6 L ABG O2 Saturation 98.4 ABG Base Excess -4.6 L [place] Test Pos A-a O2 Gradient 0.6 L Hematocrit 33.3 L Hgb O2 Saturation 96.7 Carboxyhemoglobin 0.6 Methemoglobin 1.2 Total Hemoglobin 10.9 L Ionized Calcium 1.2 O2 Delivery Device Room air FiO2 21.0 Photonic Laboratory Technician ID glc Sodium 144.0 H Potassium 5.4 H Chloride Carbon Dioxide Anion Gap BUN Creatinine GFR Calculation Glucose 156.0 H POC Glucose 190 H Calculated Osmolality Calcium Phosphorus Magnesium Total Bilirubin AST ALT Alkaline Phosphatase Total Protein Albumin Globulin Sqaor-6-Ypzwoakgn Rpktx-8-Ztbtrsrox Uwum-8-Erfgcoit Zphv-7-Jvcctiyw Gamma Globulins Abnorm Protein Band 1 Ur Creatinine 24 Hour Ur Total Protein 24 Hr Protein/Creatinin Ratio Protein/Creat Ratio 24h U Abnormal Prot Band 2 U Abnormal Prot Band 3 Pro Electrophoresis Int Hep Bs Antigen Hep Bs Antibody Hepatitis C Antibody SARS-CoV-2 Ag (Rapid) Blood Type A Positive Rho(D) Type Positive / 4+ Antibody Screen Negative 07/29/20 07/29/20 02:20 02:20 WBC 6.6 RBC 2.89 L Hgb 8.4 L Hct 26.9 L MCV 93.1 MCH 29.1 MCHC 31.2 RDW 16.3 H Plt Count 181 MPV 9.6 Neut % (Auto) 61.1 Lymph % (Auto) 20.2 [place] % (Auto) 9.7 Eos % (Auto) 7.3 Baso % (Auto) 0.9 Neut # (Auto) 4.03 Lymph # (Auto) 1.3 [place] # (Auto) 0.6 Eos # (Auto) 0.5 Baso # (Auto) 0.1 Nucleated RBC % (auto) 0 Nucleated RBCs # 0.0 Specimen Type Sample Site ABG pH ABG pCO2 ABG pO2 ABG HCO3 ABG O2 Saturation ABG Base Excess [place] Test A-a O2 Gradient Hematocrit Hgb O2 Saturation Carboxyhemoglobin Methemoglobin Total Hemoglobin Ionized Calcium O2 Delivery Device FiO2 Photonic Laboratory Technician ID Sodium 142 Potassium 5.3 H Chloride 110 H Carbon Dioxide 20 L Anion Gap 17.3 BUN 100 H* Creatinine 5.6 H* GFR Calculation Not Reportable Glucose 87 POC Glucose Calculated Osmolality 325 H Calcium 8.2 L Phosphorus 5.1 H Magnesium 1.7 Total Bilirubin 0.2 AST 15 ALT 13 Alkaline Phosphatase 49 Total Protein 5.8 L Albumin 2.9 L Globulin 2.9 Edswl-2-Vsytxkcbs Wjodf-2-Cpotgftjd Ebzt-9-Bhafxaoz Orsu-0-Cjkiuvvx Gamma Globulins Abnorm Protein Band 1 Ur Creatinine 24 Hour Ur Total Protein 24 Hr Protein/Creatinin Ratio Protein/Creat Ratio 24h U Abnormal Prot Band 2 U Abnormal Prot Band 3 Pro Electrophoresis Int Hep Bs Antigen Hep Bs Antibody Hepatitis C Antibody SARS-CoV-2 Ag (Rapid) Blood Type Rho(D) Type Antibody Screen Micro: Microbiology 07/23/20 13:42 Blood Culture - Final Blood NO GROWTH AFTER 5 DAYS 07/23/20 13:40 Blood Culture - Final Blood NO GROWTH AFTER 5 DAYS Cardiac Studies: No Data to Display
[2020-07-29] MEDS: heparin, porcine 1,000 unit/mL INJ 10 mL 1000 UNIT HE (08:09)
[2020-07-29] MEDS: lidocaine 2% INJ 20 mL INJECTION (08:09)
--- NOTE | 2020-07-29 08:10 | PC.NURSE ---
Emmanuel Page CRNA placed 20g iv catheter right hand x1 stick. secured with jenna
[2020-07-29] MEDS: neomycin-poly-bacitracin oint 28 gm 1 APPLIC TOPICAL ×2 (08:16→17:45)
--- NOTE | 2020-07-29 08:16 | XR_ITS ---
WS: [id number] Portable AP upright chest, 07/29/2020 Clinical Data: Status post right IJ tunneled hemodialysis catheter Comparison: Portable chest, 07/28/2020 Findings: A right dialysis catheter has been inserted and the tip ends below the level of the cavoatr ial junction. No pneumothorax is seen. There is still patchy atelectasis in the left lower lobe. Ther e is a monitor device over the middle portion of the chest. Midline sternotomy sutures are seen. XR/XR chest 1V portable [id number] Impression: Insertion of right dialysis catheter.
--- NOTE | 2020-07-29 08:52 | P.OP_ITS ---
Operative Report Date of procedure: July 29, 2020 Pre-op Diagnosis: End-stage renal disease Requiring hemodialysis Post-op diagnosis: same Post-op Findings: Normal anatomy of the right internal jugular vein Procedure Done: Placement of right internal jugular vein tunneled hemodialysis catheter 16 Hebrew/32 CM Fluoroscopic and ultrasound interpretation done by me through the whole entire p rocedure Implants: Right internal jugular vein tunneled hemodialysis catheter Specimens removed/disposition: No specimen Surgeon: Hugo Davenport Adaptive Physical Education Specialist: Surgical angie Bowden Circulating nurse Amada Gregorio Anesthesia: MAC (Arsenio Garcia) Estimated blood loss (mL): 5 Condition: stable Disposition: floor Brief History: End-stage renal disease requiring hemodialysis. Full H&P and informed consent per chart Procedure: Patient was identified in the holding area and taken to the operative room and placed in supine position ,both arms were tucked,Time-out was done verifying the patient's name/date of /planned procedure and destination after the procedure, all were in agreement.SCDs confirmed to be functioning, IV propofol was infused by anesthesia ,patient was given prophylactic antibiotics administered per protocol, and beta jacky protocol was confirmed, appropriate positioning of the patient was done by tx nursing staff. Medications were reviewed to assess for anticoagulant usage. Risks and benefits and prevention of central line associated blood stream infection (CLABSI) were discussed with the patient/CPOA, and a consent was obtained. Monitors were in place and monitored throughout the procedure. All necessary supplies were available prior to start. Hand hygiene was completed prior to starting. Maximum barrier technique was utilized including a sterile gown, sterile gloves with a hat and mask. Site was was prepped with [chlorhexidine] and a full body drape was placed. 5 mL of 2% lidocaine was injected into the skin with a 25 gauge needle. Fresh frozen plasma were given around the time of needlestick Prep& drape was done under the usual sterile technique of upper chest right and left as well as the neck both sides, lidocaine 2% was injected at the site of the stick, started by right internal jugular vein stick that retrieved venous blood was obtained from the first stick under ultrasound guidance. A guidewire was then threaded without any difficulty and under the guidance of fluoroscopy position was confirmed to be in the IVC, there was no PVC changes, at that point the guidewire was secured to the drapes with a hemostat and the needle was taken out, attention was then deviated towards creation of an insert for the HD catheter at the right upper chest, appropriate measurements were done prior to insertion of the hemodialysis catheter, following that lidocaine 2% was injected using an 15 blade knife skin incision was created dissection using a hemostat to create an entrance and for the HD catheter to be inserted were it was connected to a tunneler, and the tunneler was used to accommodate the catheter of the HD catheter to be delivered through the incision first created at the site of the stick ,which is at the right side of the neck, a small radha was created with 11 blade knife to allow delivery of the catheter outside the wound ,at that point under fluoroscopy,serial dilators were done that come in the in the KIT, followed by that a dilator with the sheath introduced onto the guidewire ,the dilator and the wire were retrieved and the catheter of the port was introduced via the sheath where it was peeled off and the catheter maintained, to be in good position in the right atrium. Both ports were flushed with diluted heparin and appropriate blood was retrieved first, Hep-Lock's were then applied The whole procedure was done under fluoroscopy , the position maintained to be in the rt atrium that was confirmed with fluoroscopy, and the fluoroscopy interpretation was done by me throughout the entire procedure. The stick site was closed by 3-0 Vicryl deep subdermal interrupted sutures, followed by surgical glue was used followed by dry pressure dressing was applied.Then 3/0 nylon was used to secure the hemodialysis catheter onto the anterior chest wall. Triple antibiotic ointment was placed around the exit site. Followed by dry dressing Patient tolerated the procedure well was taken to the recovery area Count was correct at the end of the procedure. I was present for the whole entire procedure. Position of the catheter was checked with a postoperative chest x-ray and it was in good position without evidence of pneumothorax on both sides of the Thorax
--- NOTE | 2020-07-29 09:20 | PM.PN ---
Subjective Subjective: Interval history: more awake, sob, seen on dialysis, nausea. memory improved. mood good Medications: Reviewed: Yes Medication Review Details: Current Medications Acetaminophen (Acetaminophen 325 Mg Tablet) 650 mg PO Q6H PRN PRN Reason: MILD PAIN Last Admin: 07/28/20 18:15 Dose: 650 mg Documented by: Aspirin (Aspirin 81 Mg Ec Tablet) 81 mg PO DAILY [facility] Last Admin: 07/28/20 09:21 Dose: 81 mg Documented by: Atorvastatin Calcium (Atorvastatin 40 Mg Tablet) 40 mg PO BEDTIME YANELI Last Admin: 07/28/20 22:00 Dose: 40 mg Documented by: Bisacodyl (Bisacodyl 10 Mg Supp) 10 mg AR DAILY PRN PRN Reason: Constipation Dextrose (Dextrose 50% Syringe 50 Ml) 25 ml IVP ONCE PRN; Protocol PRN Reason: hypoglycemia protocol Dextrose (Dextrose 50% Syringe 50 Ml) 50 ml IVP PRN PRN; Protocol PRN Reason: hypoglycemia protocol Glucagon (Glucagon 1 Mg/Ml Inj 1 Ml) 1 mg IM ONCE PRN; Protocol PRN Reason: Adult Acute Hypoglycemia Prot. Imipenem/Cilastatin Sodium 250 (mg/ Sodium Chloride) 100 mls @ 200 mls/hr IV Q12H YANELI; Protocol Last Admin: 07/28/20 21:58 Dose: 200 mls/hr Documented by: Sodium Bicarbonate 150 meq/ (Dextrose) 1,150 mls @ 75 mls/hr IV .[id number] [facility] Last Admin: 07/29/20 09:11 Dose: Not Given Documented by: Sodium Chloride (Sodium Chloride 0.9%) 1,000 mls @ 30 mls/hr IV .Q24H YANELI Last Admin: 07/29/20 06:55 Dose: 30 mls/hr Documented by: Insulin Aspart (Insulin Aspart 100 Unit/1 Ml) 0 unit SUBCUT WM&BEDTIME [facility]; Protocol Last Admin: 07/28/20 22:46 Dose: 4 unit Documented by: Isosorbide Mononitrate (Isosorbide Mononitrate Er 30 Mg Tablet) 30 mg PO DAILY [facility] Last Admin: 07/28/20 09:21 Dose: 30 mg Documented by: Levetiracetam (Levetiracetam 500 Mg Tablet) 500 mg PO BID@0700,2100 [facility] Last Admin: 07/28/20 22:00 Dose: 500 mg Documented by: Metoprolol Tartrate (Metoprolol Tartrate 25 Mg Tablet) 25 mg PO Q12H [facility] Last Admin: 07/28/20 21:59 Dose: 25 mg Documented by: Mirtazapine (Mirtazapine 15 Mg Tablet) 15 mg PO BEDTIME [facility] Last Admin: 07/28/20 22:00 Dose: 15 mg Documented by: Neomycin/Polymyxin/Bacitracin (Mgbrqpkj-Gipy-Fxbfbrtyxf Oint 28 Gm) 1 applic TOPICAL BID [facility] Last Admin: 07/28/20 18:15 Dose: 1 applic Documented by: Ondansetron HCl (Ondansetron 2 Mg/Ml Sdv 2 Ml) 4 mg IVP Q2M PRN PRN Reason: NAUSEA Pantoprazole Sodium (Pantoprazole Dr 40 Mg Tablet) 40 mg PO BID@ [facility] Last Admin: 07/29/20 09:12 Dose: Not Given Documented by: Senna/Docusate Sodium (Sennosides-Docusate Tablet) 1 tab PO DAILY [facility] Last Admin: 07/28/20 09:21 Dose: 1 tab Documented by: Sevelamer Carbonate (Sevelamer 800 Mg Tablet) 1,600 mg PO TIDWM [facility] Last Admin: 07/28/20 18:16 Dose: 1,600 mg Documented by: Vitals/I&O/Wt Last Vital Signs Temp 97.6 F 07/29/20 08:35 Pulse 60 07/29/20 08:35 Resp 17 07/29/20 08:35 BP 164/76 07/29/20 08:35 Pulse Ox 95 07/29/20 08:35 07/28/20 07/29/20 07/29/20 22:59 06:59 14:59 Intake Total 480 / 1300 366 / 366 Output Total 250 / 250 550 / 800 310 / 310 Balance 230 / 1050 -550 / 500 56 / 56 Physical Exam Narrative: EXAM NARRATIVE: comfortable in bed, NARD VS noted heent- nc/at, eomi, anicteric neck supple lung b/l crackles heart RRR, +BARRY, s1, s2 abd soft, nt, nd, +BS ext -rt BKA, left minimal edema neuro- awake, alert, o x2 pulses weak DP and PT pulses on left foot no rash Data : 07/29/20 02:20 07/29/20 02:20 Micro: Microbiology 04/09/21 13:42 Blood Culture - Final Blood NO GROWTH AFTER 5 DAYS 07/23/20 13:40 Blood Culture - Final Blood NO GROWTH AFTER 5 DAYS A&P Additional A&P Information 1. Acute kidney injury- cr down from 5.2 - 4.6 back to 4.8 and now 5 -high ur na noted -monitor chemistries and uop - I am concerned for ATN, CRS, progression of CKD -rising bun/ cr, k. pt is sob and weak- dialysis initiated now for DOROTEO -Dr. Davenport placed a RT IJ tunnelled catheter -HD 2.5 hrs, remove 1.5l, hep free -repeat HD in am -lethargy- improved on fewer pain meds. 2. hyperkalemia- no ARB, low k diet 3. CKD stage 3b/4- b/l cr in NH was 2.2 Creatinine here between 2.9 and 5.4 mg/dl - likely DM and HTN nephrosclerosis -renal us- rt 10.6 cm, left 11.8 cm 4. Pyelonephritis Currently receiving Primaxin urine culture is currently pending. It is noted that he has a history of ESBL E. coli and now has GNRs in his urine. 5. NSTEMI w/ ischemic CM- stress test noted, as on dialysis- can proceed w/ Cath - stress test 1. Medium sized perfusion abnormality of moderate severity of entrie anterior, mid to apical anterolateral, mid to apical inferior with reversibility in basal anterior and basal to mid anterolateral esparza. 2. This likely represents old myocardial infarction in left anterior descending and circumflex artery territory with mild urmila-infarct ischemia. In absence of prone imaging sub diaphragmatic attenuation artifact cannot be ruled out. 3. The left ventricular ejection fraction is moderately reduced with a value of 33%. There is global hypokinesis more pronounced in septal and apical esparza. 4. The perfusion pattern is consistent with an ischemic cardiomyopathy. 5. DM care per medicine 6, anemia- repeat iron studies- no iv iron- high ferritin and TSAT -started epo as hgb dropped to 8.3, now 8.4 7. Bone - mineral- metabolism of CKD- phos binder 8. met acidosis- as on HD. will d/c sodium bicarb pills Patient seen and examined via telemedicine, with the assistance of RN 30 min spent in evaluation and mgmt of patient Attestations Medical Necessity Statement*: CAD, DOROTEO on CKD. w/ Q of ESRD Time Spent in Patient Care: 16 - 35 minutes Coding Level of Care Code Acute Powder Loader for Brandy Sanchez
[2020-07-29 10:36] LABS: Glucose Point of Care 81 mg/dL (70-110)
[2020-07-29] MEDS: metoprolol tartrate 25 mg Tablet PO ×2 (12:14→22:05)
[2020-07-29] MEDS: sevelamer 800 mg Tablet PO ×2 (12:14→17:44)
--- NOTE | 2020-07-29 12:38 | P.PN_ITS ---
Subjective Subjective: Interval history: Patient seen after dialysis today. Line placement went well and it sounds like he tolerated dialysis okay today. In the event that he were to need it there is a pheresis unit of platelets on site should it be necessary. Pressure bag is on the site. There is some oozing of blood. He had been on Plavix. Received some FFP. He is sleepy but will awaken and denies specific complaints. Vitals/I&O/Wt Last Vital Signs Temp 97.0 F L 07/29/20 12:00 Pulse 61 07/29/20 12:00 Resp 18 07/29/20 12:00 BP 164/76 07/29/20 08:35 Pulse Ox 98 07/29/20 12:00 07/28/20 07/29/20 07/29/20 22:59 06:59 14:59 Intake Total 580 / 1400 366 / 366 Output Total 250 / 250 550 / 800 310 / 310 Balance 330 / 1150 -550 / 600 56 / 56 Physical Exam Narrative: EXAM NARRATIVE: Sleepy after procedure and dialysis today. Will awaken and acknowledges that he is doing okay. Pressure dressing over tunneled dialysis catheter site. No active oozing of blood but evidence of previous oozing noted which is not unexpected. Lungs are clear anteriorly. No deviation noted. Regular rhythm. Abdomen is soft. Right BKA stump looks the same. Data : 07/29/20 02:20 07/29/20 02:20 Micro: Microbiology 07/23/20 13:42 Blood Culture - Final Blood NO GROWTH AFTER 5 DAYS 07/23/20 13:40 Blood Culture - Final Blood NO GROWTH AFTER 5 DAYS A&P Assessment and plan (1) Pyelonephritis of left kidney: ESBL E. coli currently on Primaxin day, white count was normal, no fever. May be bacteriuria/colonization rather than infection, particularly with low colony counts. Pyelonephritis was diagnosed primarily on finding from CT scan of the perinephric stranding. Treated empirically due to comorbid conditions and presentation. Status: Acute (2) Acute worsening of stage 3 chronic kidney disease: Followed by nephrology, progressing to stage V/dialysis Status: Acute (3) NSTEMI (non-ST elevated myocardial infarction): With peak troponin of 238. Stress test showed some areas of ischemia, likely old. Cardiology has seen and current recommendations are for medical management. Status: Acute (4) Ischemic cardiomyopathy: Ejection fraction 35 to 40% Status: Chronic (5) Type 2 diabetes mellitus: Longstanding diagnosis, not on treatment, most recent hemoglobin A1c at 5.6. Has had A1c's greater than 7 on several occasions. Status: Chronic Qualifiers: Chronic kidney disease stage: stage 3 (moderate) Chronic kidney disease stage 3 subtype: stage 3b (GFR 30-44) Diabetes mellitus complication detail: wi th chronic kidney disease Diabetes mellitus complication status: with kidney complications Diabetes mellitus [facility] insulin use: without equipment operator intermodal yard use Qualified Code(s): E11.22 - Type 2 diabetes mellitus with diabetic chronic kidney disease; N18.32 - Chronic kidney disease, stage 3b (6) Seizure disorder: on Keppra Status: Chronic (7) Anemia in CKD (chronic kidney disease): Status: Chronic (8) Peripheral arterial disease: Has been followed at wound care, s/p prior right BKA for critical limb ischemia Status: Chronic (9) Encephalopathy: Improved. I do think that there is a probable component of what is perceived as alteration in mental status that is intentional at times when he is overwhelmed and does not want to talk about what is going on. For example when I talked to him yesterday he Is eyes closed and did not answer me. Today he kept his eyes open, interacted with me and recalled things that I had previously mentioned regarding dialysis. Status: Resolved (10) Status post below knee amputation of right lower extremity: Patient complained of some itching at stump, some erythema noted and marked, suture line otherwise looks intact Status: Acute Additional A&P Information Continue dialysis as per nephrology recommendations Continue pressure and monitoring of tunneled dialysis catheter site for bleeding Has a pheresis unit of platelets available should it be needed Pharmacological VTE prophylaxis held presently due to procedure SCDs On day 6 of Primaxin Triple antibiotic ointment to stump On statin, isosorbide, metoprolol and as needed nitroglycerin; aspirin and Plavix were held for procedure but can resume tomorrow On home Keppra Sliding scale insulin for diabetes as needed On home PPI Hydrocodone if needed for moderate to severe pain, has twice a day as needed, may have to increase given that he is status post line placement but need to monitor mental status to ensure not overmedicating On subcu heparin for DVT prophylaxis although this is being held in anticipation of line placement for dialysis Supportive care otherwise Ultimate disposition will be back to skilled facility Full code Attestations Medical Necessity Statement*: Requires ongoing inpatient stay while we initiate dialysis and continue antibiotics and other care as indicated. Coding Level of Care Code Acute Cloth Handler for Chg Fwd Diagnoses Pyelonephritis of left kidney N12 Acute worsening of stage 3 chronic kidney disease N18.30 NSTEMI (non-ST elevated myocardial infarction) I21.4 Ischemic cardiomyopathy I25.5 Type 2 diabetes mellitus E11.22; N18.32 Chronic kidney disease stage: stage 3 (moderate) Chronic kidney disease stage 3 subtype: stage 3b (GFR 30-44) Diabetes mellitus complication detail: with chronic kidney disease Diabetes mellitus complication status: with kidney complications Diabetes mellitus [facility] insulin use: without equipment operator intermodal yard use Seizure disorder G40.909 Anemia in CKD (chronic kidney disease) N18.9; D63.1 Peripheral arterial disease I73.9 Encephalopathy G93.40 Status post below knee amputation of right lower extremity Z89.511
[2020-07-29 12:52] LABS: ALBUMIN 59 %; ALPHA-1-GLOBULINS 6 %; ALPHA-2-GLOBULINS 8 %; BETA GLOBULINS 13 %; GAMMA GLOBULINS 14 %
[2020-07-29] MEDS: acetaminophen 325 mg Tablet 650 MG PO ×2 (12:56→18:22)
--- NOTE | 2020-07-29 13:34 | ANE.PACU2 ---
Inpatient post-anesthesia follow up: Airway intact: Yes Vital signs: Temperature 97.0 F Pulse Rate [Monito r] 65 Pulse Rate 61 Respiratory Rate 18 Blood Pressure [Ri ght Arm] 123/54 Blood Pressure 150/90 Pulse Oximetry 98 Oxygen Delivery Me thod Room Air Oxygen Flow Rate 8 Fraction of Inspir ed Oxygen Hydration adequate: Yes Nausea and vomiting: No Pain level: 2 Mental status: Baseline
--- NOTE | 2020-07-29 15:07 | PC.SOCIAL ---
*IMM UPDATE* Customs Compliance Specialist gave IMM update, left copy of page 2 of IMM at bedside. 07/29/20 @ 1434 Initialed, dated, timed and placed in chart.
[2020-07-29 17:09] LABS: Glucose Point of Care 152 mg/dL (70-110)
[2020-07-29] MEDS: pantoprazole DR 40 mg Tablet PO (17:44)
--- NOTE | 2020-07-29 18:53 | PC.NURSE ---
pt had dialysis today. 1.5 L off per dialysis nurse.
[2020-07-29 21:11] LABS: Glucose Point of Care 129 mg/dL (70-110)
[2020-07-29] MEDS: levETIRAcetam 500 mg Tablet PO (22:04)
[2020-07-29] MEDS: atorvastatin 40 mg Tablet PO (22:04)
[2020-07-29] MEDS: mirtazapine 15 mg Tablet PO (22:05)
[2020-07-30] VITALS (7 sets, daily range): BP systolic 97–188; BP diastolic 58–77; PULSE 60–71; RESP 16–19; TEMP 36.4–36.9; O2SAT 94–96
--- NOTE | 2020-07-30 06:59 | PM.PN ---
Subjective Subjective: Interval history: Patient overall seems to be doing well. No acute events overnight except for some oozing around the exit site of the HD catheter and pressure dressing was applied by the nursing staff. Patient did not require platelet transfusion as there was a concern that he may need platelets due to his recent holding of Plavix and having an invasive procedure. Medications: Reviewed: Yes Vitals/I&O/Wt Last Vital Signs Temp 98.5 F 07/30/20 03:18 Pulse 60 07/30/20 03:18 Resp 16 07/30/20 03:18 BP 188/67 07/30/20 03:18 Pulse Ox 96 07/30/20 03:18 07/29/20 07/29/20 07/30/20 14:59 22:59 06:59 Intake Total 606 / 606 2590 / 3196 Output Total 310 / 310 350 / 660 Balance 296 / 296 2590 / 2886 -350 / 2536 Physical Exam Narrative: EXAM NARRATIVE: Patient is conscious alert oriented BMI 26 Head and neck examination PERRLA no masses no cervical lymphadenopathy no jaundice No evidence of neck hematoma or crepitus or swelling Right upper chest hemodialysis catheter in place without complications and dressing shows dry blood around the exit,with no evidence of active bleeding. Data : 07/29/20 02:20 07/29/20 02:20 Attestation for Other Data: I personally reviewed and interpreted the following: (Satisfactory placement of right internal jugular vein hemodialysis catheter) Other data: Chest x-ray report : A right dialysis catheter has been inserted and the tip ends below the level of the cavoatrial junction. No pneumothorax is seen. There is still patchy atelectasis in the left lower lobe. There is a monitor device over the middle portion of the chest. Midline sternotomy sutures are seen. A&P Assessment and plan (1) Acute worsening of stage 3 chronic kidney disease: Status post right internal jugular vein tunneled hemodialysis catheter placement 07/29/2020. Dressing can be changed around the HD catheter per nursing staff Continue hemodialysis per nephrology recommendation Please call for any concerns or questions Thank you for consulting general surgery to participate taking care Mr. Fernandez Status: Acute Attestations Medical Necessity Statement*: Continue inpatient hospitalization for medical care and hemodialysis Time Spent in Patient Care: (>than 50% of time spent in counselling and/or direct pt care on unit). Coding Level of Care Code Acute [employer] Agent for Chg Fwd Diagnoses Acute worsening of stage 3 chronic kidney disease N18.30
[2020-07-30 07:29] LABS: Glucose Point of Care 111 mg/dL (70-110)
[2020-07-30 08:49] LABS: Basophils # 0.1 10^3/uL (0.0-0.1); Basophils % 0.5 %; Eosinophils # 0.3 10^3/uL (0.0-0.8); Eosinophils % 3.1 %; Hematocrit 30.4 % (42.0-52.0); Hemoglobin 9.7 g/dL (11.7-16.6); Lymphocytes # 1.2 10^3/uL (0.8-4.8); Mean Corpuscular HGB Conc 31.9 g/dL (30.0-36.0); Mean Corpuscular Hemoglobin 29.7 pg (28.0-34.0); Mean Platelet Volume 9.5 fL (7.4-10.4); Nucleated Red Blood Cells % 0 %; Platelet Count 166 10^3/cmm (130-400); Red Blood Count 3.27 10^6/uL (4.1-5.3); Red Cell Distribution Width 16.6 % (12.1-15.1); White Blood Count 11.1 10^3/uL (4.0-10.0)
[2020-07-30] MEDS: pantoprazole DR 40 mg Tablet PO (08:49)
[2020-07-30] MEDS: sevelamer 800 mg Tablet PO ×2 (08:49→15:35)
[2020-07-30] MEDS: levETIRAcetam 500 mg Tablet PO ×2 (08:49→22:17)
[2020-07-30 09:03] LABS: Alanine Aminotransferase 8 U/L (0-41); Albumin Level 3.4 g/dL (3.5-5.2); Alkaline Phosphatase 61 IU/L (40-130); Anion Gap 16.6 (5-19); Aspartate Amino Transferase 14 U/L (0-40); Blood Urea Nitrogen 53 mg/dL (8-23); Calcium 8.7 mg/dL (8.5-10.5); Carbon Dioxide 25 mmol/L (22-29); Chloride 103 mmol/L (98-107); Glucose 98 mg/dL (65-115); Magnesium 1.8 mg/dL (1.7-2.3); Osmolality Calculated 304 mOsm/kg (285-295); Phosphorus 3.8 mg/dL (2.5-4.5); Potassium 4.6 mmol/L (3.5-5.1); Sodium 140 mmol/L (136-145); Total Bilirubin 0.2 mg/dL (0.15-1.2); Total Protein 6.4 g/dL (6.6-8.7)
[2020-07-30 10:06] LABS: Glucose Point of Care 149 mg/dL (70-110)
[2020-07-30] MEDS: metoprolol tartrate 25 mg Tablet PO (10:30)
[2020-07-30] MEDS: aspirin 81 mg EC Tablet PO (10:30)
[2020-07-30] MEDS: clopidogrel 75 mg Tablet PO (10:30)
[2020-07-30] MEDS: isosorbide mononitrate ER 30 mg Tablet PO (10:30)
--- NOTE | 2020-07-30 12:09 | P.PN_ITS ---
Subjective Subjective: Interval history: Drowsy but comfortable. No overt uremic Sx. Dialysis pending for today No overt edema and breathing comfortably Medications: Reviewed: Yes Medication Review Details: Current Medications Acetaminophen (Acetaminophen 325 Mg Tablet) 650 mg PO Q6H PRN PRN Reason: MILD PAIN Last Admin: 07/28/20 18:15 Dose: 650 mg Documented by: Aspirin (Aspirin 81 Mg Ec Tablet) 81 mg PO DAILY [facility] Last Admin: 07/28/20 09:21 Dose: 81 mg Documented by: Atorvastatin Calcium (Atorvastatin 40 Mg Tablet) 40 mg PO BEDTIME YANELI Last Admin: 07/28/20 22:00 Dose: 40 mg Documented by: Bisacodyl (Bisacodyl 10 Mg Supp) 10 mg [place] DAILY PRN PRN Reason: Constipation Dextrose (Dextrose 50% Syringe 50 Ml) 25 ml IVP ONCE PRN; Protocol PRN Reason: hypoglycemia protocol Dextrose (Dextrose 50% Syringe 50 Ml) 50 ml IVP PRN PRN; Protocol PRN Reason: hypoglycemia protocol Glucagon (Glucagon 1 Mg/Ml Inj 1 Ml) 1 mg IM ONCE PRN; Protocol PRN Reason: Adult Acute Hypoglycemia Prot. Imipenem/Cilastatin Sodium 250 (mg/ Sodium Chloride) 100 mls @ 200 mls/hr IV Q12H YANELI; Protocol Last Admin: 07/28/20 21:58 Dose: 200 mls/hr Documented by: Sodium Bicarbonate 150 meq/ (Dextrose) 1,150 mls @ 75 mls/hr IV .[id number] YANELI Last Admin: 07/29/20 09:11 Dose: Not Given Documented by: Sodium Chloride (Sodium Chloride 0.9%) 1,000 mls @ 30 mls/hr IV .Q24H YANELI Last Admin: 07/29/20 06:55 Dose: 30 mls/hr Documented by: Insulin Aspart (Insulin Aspart 100 Unit/1 Ml) 0 unit SUBCUT WM&BEDTIME YANELI; Protocol Last Admin: 07/28/20 22:46 Dose: 4 unit Documented by: Isosorbide Mononitrate (Isosorbide Mononitrate Er 30 Mg Tablet) 30 mg PO DAILY [facility] Last Admin: 07/28/20 09:21 Dose: 30 mg Documented by: Levetiracetam (Levetiracetam 500 Mg Tablet) 500 mg PO BID@0700,2100 [facility] Last Admin: 07/28/20 22:00 Dose: 500 mg Documented by: Metoprolol Tartrate (Metoprolol Tartrate 25 Mg Tablet) 25 mg PO Q12H [facility] Last Admin: 07/28/20 21:59 Dose: 25 mg Documented by: Mirtazapine (Mirtazapine 15 Mg Tablet) 15 mg PO BEDTIME [facility] Last Admin: 07/28/20 22:00 Dose: 15 mg Documented by: Neomycin/Polymyxin/Bacitracin (Uketuxrr-Swgp-Tqesjjnomd Oint 28 Gm) 1 applic TOPICAL BID [facility] Last Admin: 07/28/20 18:15 Dose: 1 applic Documented by: Ondansetron HCl (Ondansetron 2 Mg/Ml Sdv 2 Ml) 4 mg IVP Q2M PRN PRN Reason: NAUSEA Pantoprazole Sodium (Pantoprazole Dr 40 Mg Tablet) 40 mg PO BID@ [facility] Last Admin: 07/29/20 09:12 Dose: Not Given Documented by: Senna/Docusate Sodium (Sennosides-Docusate Tablet) 1 tab PO DAILY [facility] Last Admin: 07/28/20 09:21 Dose: 1 tab Documented by: Sevelamer Carbonate (Sevelamer 800 Mg Tablet) 1,600 mg PO TIDWM [facility] Last Admin: 07/28/20 18:16 Dose: 1,600 mg Documented by: Vitals/I&O/Wt Last Vital Signs Temp 98.1 F 07/30/20 10:48 Pulse 69 07/30/20 10:48 Resp 17 07/30/20 10:48 BP 133/75 07/30/20 10:48 Pulse Ox 95 07/30/20 10:48 07/29/20 07/30/20 07/30/20 22:59 06:59 14:59 Intake Total 2590 / 3196 100 / 100 Output Total 350 / 660 375 / 375 Balance 2590 / 2886 -350 / 2536 -275 / -275 Physical Exam Narrative: EXAM NARRATIVE: Constitutional: Awake, comfortable HEENT: Wet mucosa, no jvp, non icteric Lungs: Bilaterally clear without discernible wheeze, rales in all lung zones CVS: S1 S2, no murmurs Abdo: Soft, BS ok Ext 4: 1-2+ edema, peripheral perfusion with no cyanosis Neurological: Grossly non-focal Data : 07/30/20 08:17 07/30/20 08:17 A&P Additional A&P Information 1. Renal Failure Dialysis pending for today, session 2 Will evaluate over the weekend but otherwise plan on dialysis on Sunday Avoid usual nephrotoxic agents Strict I's and O's Dose medication for GFR less than 15 2. Chemistry. Well balanced 3. Pyelonephritis Currently receiving Primaxin; mgmt per Dr Benitez 4. Hemodynamics blood pressure is well controlled 5. NSTEMI for medical mgmt 6. DC when manager case has set up outpatient care Thank you for consultation, as always it is a pleasure to follow these cases with you Dennis Carreon MD Nephrology [phone] Patient seen and examined via telemedicine, with the assistance of the bedside RN > 25 min spent in evaluation and mgmt of patient Attestations Medical Necessity Statement*: eval for DOROTEO/renal failure Coding Level of Care Code Acute Peanut Vendor for Brandy Sanchez
[2020-07-30] MEDS: neomycin-poly-bacitracin oint 28 gm 1 APPLIC TOPICAL (13:32)
--- NOTE | 2020-07-30 15:32 | PC.NURSE ---
call back to selwyn villanueva's daughter catrina howell to update
[2020-07-30 16:47] LABS: Glucose Point of Care 131 mg/dL (70-110)
--- NOTE | 2020-07-30 17:59 | PC.NURSE ---
pt in dialysis
--- NOTE | 2020-07-30 20:35 | P.PN_ITS ---
Subjective Subjective: Interval history: Tolerating hemodialysis okay so far. States that he actually feels better. He started asking questions about dialysis that can be done during his sleep so that he would not have to go to the dialysis clinic several times a week. Answered what questions I could but explained that he would need to review this with nephrology. Explained it would likely require another procedure to have different type of dialysis catheter placed. Pain being managed with Tylenol. Vitals/I&O/Wt Last Vital Signs Temp 97.6 F 07/30/20 14:40 Pulse 69 07/30/20 14:40 Resp 18 07/30/20 14:40 BP 145/77 07/30/20 14:40 Pulse Ox 95 07/30/20 14:40 07/30/20 07/30/20 07/30/20 06:59 14:59 22:59 Intake Total 100 / 100 Output Total 350 / 660 375 / 375 200 / 575 Balance -350 / 2536 -275 / -275 -200 / -475 Physical Exam Narrative: EXAM NARRATIVE: More alert today. He provided more conversation today than he has last few days. Tunneled dialysis catheter site with dried dark blood but no oozing of bright red blood. Improved aeration. Regular rhythm. Abdomen is soft. Right BKA stump with loss of scab that was in the central part of the incision. Erythema is about the same as it was a couple of days ago. No drainage. Data : 07/30/20 08:17 07/30/20 08:17 A&P Assessment and plan (1) Pyelonephritis of left kidney: ESBL E. coli currently on Primaxin day 7, white count was normal, no fever. May be bacteriuria/colonization rather than infection, particularly with low colony counts. Pyelonephritis was diagnosed primarily on finding from CT scan of the perinephric stranding. Treated empirically due to comorbid conditions and presentation. Status: Acute (2) Acute worsening of stage 3 chronic kidney disease: Followed by nephrology, progressing to stage V/dialysis initiated 07/29/20 after tunneled hemodialysis catheter placement Status: Acute (3) NSTEMI (non-ST elevated myocardial infarction): With peak troponin of 238. Stress test showed some areas of ischemia, likely old. Cardiology has seen and current recommendations are for medical management. Status: Acute (4) Ischemic cardiomyopathy: Ejection fraction 35 to 40% Status: Chronic (5) Type 2 diabetes mellitus: Longstanding diagnosis, not on treatment, most recent hemoglobin A1c at 5.6. Has had A1c's greater than 7 on several occasions. Status: Chronic Qualifiers: Diabetes mellitus group home insulin use: without long filler cigar roller machine use Diabetes mellitus complication status: with kidney complications Diabetes mellitus complication detail: with chronic kidney disease Chronic kidney disease stage: stage 3 (moderate) Chronic kidney disease stage 3 subtype: stage 3b (GFR 30-44) Qualified Code(s): E11.22 - Type 2 diabetes mellitus with diabetic chronic kidney disease; N18.32 - Chronic kidney disease, stage 3b (6) Seizure disorder: on Keppra Status: Chronic (7) Anemia in CKD (chronic kidney disease): Status: Chronic (8) Peripheral arterial disease: Has been followed at wound care, s/p prior right BKA for critical limb ischemia Status: Chronic (9) Encephalopathy: With additional improvement after dialysis given decrease in degree of uremia. Initially multifactorial from metabolic process with uremia, infection as well as a probable component of what is perceived as alteration in mental status that is intentional at times when he is overwhelmed and does not want to talk about what is going on. Status: Resolved (10) Status post below knee amputation of right lower extremity: Patient complained of some itching at stump, incision site healing well but still with some scabbing Status: Acute Additional A&P Information Current plan is to continue initiation of hemodialysis as per nephrology Work on arranging outpatient hemodialysis On day 7 of Primaxin, will discontinue and monitor Triple antibiotic ointment to stump On statin, isosorbide, metoprolol and as needed nitroglycerin Resume aspirin and Plavix Hold pharmacological DVT prophylaxis 1 more day Has SCDs On home Keppra Sliding scale insulin for diabetes as needed On home PPI Hydrocodone if needed for moderate to severe pain, has twice a day as needed, may have to increase given that he is status post line placement but need to monitor mental status to ensure not overmedicating On subcu heparin for DVT prophylaxis although this is being held in anticipation of line placement for dialysis Supportive care otherwise Ultimate disposition will be back to skilled facility, only anticipating possibly on Sunday Full code Discussed with patient and he was given opportunity to ask questions Attestations Medical Necessity Statement*: Requires ongoing inpatient stay will be continue monitoring with initiation of hemodialysis and work on arranging outpatient hemodialysis Coding Level of Care Code Acute Foundry Process Engineer for Chg Fwd Diagnoses Pyelonephritis of left kidney N12 Acute worsening of stage 3 chronic kidney disease N18.30 NSTEMI (non-ST elevated myocardial infarction) I21.4 Ischemic cardiomyopathy I25.5 Type 2 diabetes mellitus E11.22; N18.32 Diabetes mellitus long filler cigar roller machine insulin use: without long filler cigar roller machine use Diabetes mellitus complication status: with kidney complications Diabetes mellitus complication detail: with chronic kidney disease Chronic kidney disease stage: stage 3 (moderate) Chronic kidney disease stage 3 subtype: stage 3b (GFR 30-44) Seizure disorder G40.909 Anemia in CKD (chronic kidney disease) N18.9; D63.1 Peripheral arterial disease I73.9 Encephalopathy G93.40 Status post below knee amputation of right lower extremity Z89.511
[2020-07-30 21:02] LABS: Glucose Point of Care 133 mg/dL (70-110)
[2020-07-30] MEDS: mirtazapine 15 mg Tablet PO (22:17)
[2020-07-30] MEDS: atorvastatin 40 mg Tablet PO (22:17)
[2020-07-31] VITALS (9 sets, daily range): BP systolic 121–157; BP diastolic 61–78; PULSE 73–88; RESP 16–20; TEMP 36.7–37.6; O2SAT 93–97
[2020-07-31 06:43] LABS: Glucose Point of Care 102 mg/dL (70-110)
[2020-07-31 06:55] LABS: Basophils # 0.1 10^3/uL (0.0-0.1); Basophils % 0.7 %; Eosinophils # 0.2 10^3/uL (0.0-0.8); Eosinophils % 2.6 %; Hematocrit 30.6 % (42.0-52.0); Hemoglobin 9.9 g/dL (11.7-16.6); Lymphocytes # 1.7 10^3/uL (0.8-4.8); Lymphocytes % 18.7 %; Mean Corpuscular HGB Conc 32.4 g/dL (30.0-36.0); Mean Corpuscular Hemoglobin 29.5 pg (28.0-34.0); Mean Corpuscular Volume 91.1 fL (80-94); Mean Platelet Volume 9.9 fL (7.4-10.4); Monocytes # 0.9 10^3/uL (0.2-0.9); Monocytes % 9.9 %; Neutrophils # 6.08 10^3/uL (1.8-7.7); Neutrophils % 67.7 %; Nucleated Red Blood Cells % 0 %; Platelet Count 182 10^3/cmm (130-400); Red Blood Count 3.36 10^6/uL (4.1-5.3); Red Cell Distribution Width 16.7 % (12.1-15.1)
[2020-07-31 07:38] LABS: Alanine Aminotransferase < 5 U/L (0-41); Albumin Level 3.4 g/dL (3.5-5.2); Alkaline Phosphatase 56 IU/L (40-130); Anion Gap 14.5 (5-19); Aspartate Amino Transferase 14 U/L (0-40); Blood Urea Nitrogen 34 mg/dL (8-23); Calcium 8.8 mg/dL (8.5-10.5); Carbon Dioxide 27 mmol/L (22-29); Chloride 103 mmol/L (98-107); Glucose 92 mg/dL (65-115); Magnesium 1.8 mg/dL (1.7-2.3); Osmolality Calculated 297 mOsm/kg (285-295); Phosphorus 3.1 mg/dL (2.5-4.5); Potassium 4.5 mmol/L (3.5-5.1); Sodium 140 mmol/L (136-145); Total Bilirubin 0.2 mg/dL (0.15-1.2); Total Protein 6.4 g/dL (6.6-8.7)
[2020-07-31] MEDS: pantoprazole DR 40 mg Tablet PO ×2 (09:25→17:41)
--- NOTE | 2020-07-31 10:08 | P.PN_ITS ---
Subjective Subjective: Interval history: He is doing well today with no specific complaints. He actually feels significantly improved after dialysis. He is awake conversant lucid. No uremic symptoms. No extremity edema or other hypervolemic symptoms. Medications: Reviewed: Yes Medication Review Details: Current Medications Acetaminophen (Acetaminophen 325 Mg Tablet) 650 mg PO Q6H PRN PRN Reason: MILD PAIN Last Admin: 07/28/20 18:15 Dose: 650 mg Documented by: Aspirin (Aspirin 81 Mg Ec Tablet) 81 mg PO DAILY YANELI Last Admin: 07/28/20 09:21 Dose: 81 mg Documented by: Atorvastatin Calcium (Atorvastatin 40 Mg Tablet) 40 mg PO BEDTIME YANELI Last Admin: 07/28/20 22:00 Dose: 40 mg Documented by: Bisacodyl (Bisacodyl 10 Mg Supp) 10 mg [place] DAILY PRN PRN Reason: Constipation Dextrose (Dextrose 50% Syringe 50 Ml) 25 ml IVP ONCE PRN; Protocol PRN Reason: hypoglycemia protocol Dextrose (Dextrose 50% Syringe 50 Ml) 50 ml IVP PRN PRN; Protocol PRN Reason: hypoglycemia protocol Glucagon (Glucagon 1 Mg/Ml Inj 1 Ml) 1 mg IM ONCE PRN; Protocol PRN Reason: Adult Acute Hypoglycemia Prot. Imipenem/Cilastatin Sodium 250 (mg/ Sodium Chloride) 100 mls @ 200 mls/hr IV Q12H YANELI; Protocol Last Admin: 07/28/20 21:58 Dose: 200 mls/hr Documented by: Sodium Bicarbonate 150 meq/ (Dextrose) 1,150 mls @ 75 mls/hr IV .[id number] YANELI Last Admin: 07/29/20 09:11 Dose: Not Given Documented by: Sodium Chloride (Sodium Chloride 0.9%) 1,000 mls @ 30 mls/hr IV .Q24H YANELI Last Admin: 07/29/20 06:55 Dose: 30 mls/hr Documented by: Insulin Aspart (Insulin Aspart 100 Unit/1 Ml) 0 unit SUBCUT WM&BEDTIME YANELI; Protocol Last Admin: 07/28/20 22:46 Dose: 4 unit Documented by: Isosorbide Mononitrate (Isosorbide Mononitrate Er 30 Mg Tablet) 30 mg PO DAILY YANELI Last Admin: 07/28/20 09:21 Dose: 30 mg Documented by: Levetiracetam (Levetiracetam 500 Mg Tablet) 500 mg PO BID@0700,2100 [facility] Last Admin: 07/28/20 22:00 Dose: 500 mg Documented by: Metoprolol Tartrate (Metoprolol Tartrate 25 Mg Tablet) 25 mg PO Q12H [facility] Last Admin: 07/28/20 21:59 Dose: 25 mg Documented by: Mirtazapine (Mirtazapine 15 Mg Tablet) 15 mg PO BEDTIME [facility] Last Admin: 07/28/20 22:00 Dose: 15 mg Documented by: Neomycin/Polymyxin/Bacitracin (Lmuxbnuw-Kawl-Jjtncpfcqx Oint 28 Gm) 1 applic TOPICAL BID [facility] Last Admin: 07/28/20 18:15 Dose: 1 applic Documented by: Ondansetron HCl (Ondansetron 2 Mg/Ml Sdv 2 Ml) 4 mg IVP Q2M PRN PRN Reason: NAUSEA Pantoprazole Sodium (Pantoprazole Dr 40 Mg Tablet) 40 mg PO BID@06,18 [facility] Last Admin: 07/29/20 09:12 Dose: Not Given Documented by: Senna/Docusate Sodium (Sennosides-Docusate Tablet) 1 tab PO DAILY [facility] Last Admin: 07/28/20 09:21 Dose: 1 tab Documented by: Sevelamer Carbonate (Sevelamer 800 Mg Tablet) 1,600 mg PO TIDWM [facility] Last Admin: 07/28/20 18:16 Dose: 1,600 mg Documented by: Vitals/I&O/Wt Last Vital Signs Temp 98.0 F 07/31/20 07:33 Pulse 74 07/31/20 07:33 Resp 18 07/31/20 07:33 BP 157/70 07/31/20 07:33 Pulse Ox 93 07/31/20 07:33 07/30/20 07/31/20 07/31/20 22:59 06:59 14:59 Intake Total 400 / 500 Output Total 200 / 575 153 / 728 Balance -200 / -475 247 / -228 Physical Exam Narrative: EXAM NARRATIVE: Constitutional: Awake, comfortable HEENT: Wet mucosa, no jvp, non icteric Lungs: Bilaterally clear without discernible wheeze, rales in all lung zones CVS: S1 S2, no murmurs Abdo: Soft, BS ok Ext 4: no edema, peripheral perfusion with no cyanosis Neurological: Grossly non-focal Data : 07/31/20 06:16 04/17/21 06:16 A&P Additional A&P Information 1. Renal Failure Dialysis performed yesterday Plan on dialysis on Sunday Avoid usual nephrotoxic agents Strict I's and O's Dose medication for GFR less than 15 2. Chemistry. Well balanced 3. Pyelonephritis Currently receiving Primaxin; mgmt per Dr Benitez 4. Hemodynamics blood pressure is well controlled 5. NSTEMI for medical mgmt 6. DC when case maker has set up outpatient care Thank you for consultation, as always it is a pleasure to follow these cases with you Dennis Carreon MD Nephrology [phone] Patient seen and examined via telemedicine, with the assistance of the bedside RN > 25 min spent in evaluation and mgmt of patient Attestations Medical Necessity Statement*: Eval for HD Coding Level of Care Code Acute Invisible Braces Orthodontist for Brandy Sanchez
--- NOTE | 2020-07-31 10:35 | PC.CHAP ---
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 handbell choir director visit [] Patient/Family/Request visit [] Outpatient visit [] Follow-up visit [] Physician referral [] Code/Alert [x] Routine visit [] Staff referral [] Actively dying [] Patient sleeping [] Family support [] [] Out of room [] Palliative care [] [] Receiving care in room [] Pre-surgical visit [] Trauma [] Long length of stay [] ICU visit [] Other: Relational/Emotional Strength [] Patient feels connected with others/family/visitors/staff [] Distress [] Loneliness/isolation [] Abandonment Spirituality of Patient [] Person of Ghislaine [] Attends Restorationist of their Ghislaine [] Believes in Prayer [] Reads Bible or Faith materials [x] There are Spiritual issues to be addressed Automotive Drivability Technician Interventions [] Prayer [x] Active listening [x] Non-anxious presence [x] Spiritual/emotional support [] Crisis/trauma care [] Spiritual counseling [] Bereavement support [] Provided bereavement packet [] Provided Bible/devotional materials [] Provided toy/stuffed animal, coloring book to patient or family member [] Provided Communion [] Anointing/Mexia [] Salvation [x] Completed spiritual assessment [] Other: Impact on Illness or Injury [] Angry [] Fearful [] Anxious [] Often cries [] Exhaustion [] Unable to work [] Unable to attend hindu [] Unable to walk/stand [] Unable to read [] Unable to drive [] Unable to eat/drink [] Unable to sleep [] Unable to be with family [] Patient intubated [] Other: Summary Pt did not seem to recall handbell choir director visit from last week. He is wanting to go home and is hoping to be able to do so today. He did not express any concerns regarding discharge. He did not want prayer. Time spent with patient 5m
[2020-07-31 10:43] LABS: Glucose Point of Care 152 mg/dL (70-110)
--- NOTE | 2020-07-31 13:40 | PC.SOCIAL ---
*IMM* Updated and initialled in chart
[2020-07-31 16:54] LABS: Glucose Point of Care 121 mg/dL (70-110)
[2020-07-31] MEDS: sevelamer 800 mg Tablet PO (17:41)
--- NOTE | 2020-07-31 19:41 | PM.PN ---
Subjective Subjective: Interval history: Feeling better today. Not short of breath. No chest discomfort. More alert. No complaints today. 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 Hemodialysis catheter is intact with new dressing that is clean, no oozing of blood. Lungs are clear. He has a regular rhythm. BKA incision line unchanged. Decreased puffiness of the left lower extremity. Data : 07/31/20 06:16 07/31/20 06:16 A&P Assessment and plan (1) Pyelonephritis of left kidney: ESBL E. coli status post 7 days of Primaxin, white count was normal, no fever. May be bacteriuria/colonization rather than infection, particularly with low colony counts. Pyelonephritis was diagnosed primarily on finding from CT scan of the perinephric stranding. Treated empirically due to comorbid conditions and presentation. Status: Acute (2) Acute worsening of stage 3 chronic kidney disease: Followed by nephrology, progressing to stage V/dialysis initiated 07/29/20 after tunneled hemodialysis catheter placement Status: Acute (3) NSTEMI (non-ST elevated myocardial infarction): With peak troponin of 238. Stress test showed some areas of ischemia, likely old. Cardiology has seen and current recommendations are for medical management. Status: Acute (4) Ischemic cardiomyopathy: Ejection fraction 35 to 40% Status: Chronic (5) Type 2 diabetes mellitus: Longstanding diagnosis, not on treatment, most recent hemoglobin A1c at 5.6. Has had A1c's greater than 7 on several occasions. Status: Chronic Qualifiers: Diabetes mellitus penitentiary insulin use: without penitentiary use Diabetes mellitus complication status: with kidney complications Diabetes mellitus complication detail: with chronic kidney disease Chronic kidney disease stage: stage 3 (moderate) Chronic kidney disease stage 3 subtype: stage 3b (GFR 30-44) Qualified Code(s): E11.22 - Type 2 diabetes mellitus with diabetic chronic kidney disease; N18.32 - Chronic kidney disease, stage 3b (6) Seizure disorder: on Keppra Status: Chronic (7) Anemia in CKD (chronic kidney disease): Status: Chronic (8) Peripheral arterial disease: Has been followed at wound care, s/p prior right BKA for critical limb ischemia Status: Chronic (9) Encephalopathy: Continued improvement. Initially multifactorial from metabolic process with uremia, infection as well as a probable component of what is perceived as alteration in mental status that is intentional at times when he is overwhelmed and does not want to talk about what is going on. Status: Resolved (10) Status post below knee amputation of right lower extremity: Patient complained of some itching at stump, incision site healing well but still with some scabbing Status: Acute Additional A&P Information Appreciate nephrology's assistance in this case Working on arranging outpatient dialysis Next dialysis scheduled for Sunday Status post 7 days of Primaxin ESBL E. coli, monitor for fevers Triple antibiotic ointment to stump as needed On statin, isosorbide, metoprolol and as needed nitroglycerin Patient's blood pressures are ranging from 90 systolic to 150 systolic on current regimen, monitor need for adjustment in either dosing or frequency On aspirin and Plavix Resume pharmacological DVT prophylaxis On home Keppra Sliding scale insulin for diabetes as needed On home PPI Hydrocodone at home medicine twice daily as needed for pain Supportive care otherwise Currently anticipate discharge back to skilled facility on Sunday assuming we have finalized an outpatient spot for hemodialysis ongoing and no new issues arise Full code Updated patient on plans he was in agreement Attestations Medical Necessity Statement*: Requires ongoing inpatient stay for continued monitoring status post initiation of hemodialysis and medical management for other comorbid conditions Coding Level of Care Code Acute Electromechanical Technologist for [facility] Daniel Diagnoses Pyelonephritis of left kidney N12 Acute worsening of stage 3 chronic kidney disease N18.30 NSTEMI (non-ST elevated myocardial infarction) I21.4 Ischemic cardiomyopathy I25.5 Type 2 diabetes mellitus E11.22; N18.32 Diabetes mellitus penitentiary insulin use: without meterman use Diabetes mellitus complication status: with kidney complications Diabetes mellitus complication detail: with chronic kidney disease Chronic kidney disease stage: stage 3 (moderate) Chronic kidney disease stage 3 subtype: stage 3b (GFR 30-44) Seizure disorder G40.909 Anemia in CKD (chronic kidney disease) N18.9; D63.1 Peripheral arterial disease I73.9 Encephalopathy G93.40 Status post below knee amputation of right lower extremity Z89.511
[2020-07-31 20:50] LABS: Glucose Point of Care 136 mg/dL (70-110)
[2020-07-31] MEDS: metoprolol tartrate 25 mg Tablet PO (20:52)
[2020-07-31] MEDS: acetaminophen 325 mg Tablet 650 MG PO (20:52)
[2020-07-31] MEDS: mirtazapine 15 mg Tablet PO (20:52)
[2020-07-31] MEDS: levETIRAcetam 500 mg Tablet PO (20:52)
[2020-07-31] MEDS: atorvastatin 40 mg Tablet PO (20:52)
[2020-08-01] VITALS (8 sets, daily range): BP systolic 133–172; BP diastolic 60–81; PULSE 63–84; RESP 16–18; TEMP 36.3–37.3; O2SAT 94–97
[2020-08-01 06:28] LABS: Glucose Point of Care 103 mg/dL (70-110)
--- NOTE | 2020-08-01 06:51 | PC.NURSE ---
PATIENT REFUSED MORNING MEDS, STATED I MIGHT TAKE THEM AFTER I HAVE EATEN BREAKFAST.
[2020-08-01] MEDS: neomycin-poly-bacitracin oint 28 gm 1 APPLIC TOPICAL ×2 (08:32→17:40)
[2020-08-01] MEDS: isosorbide mononitrate ER 30 mg Tablet PO (08:33)
[2020-08-01] MEDS: heparin 5,000 unit/mL INJ 1 mL 5000 UNIT SUBCUT (08:33)
[2020-08-01] MEDS: aspirin 81 mg EC Tablet PO (08:33)
[2020-08-01] MEDS: sennosides-docusate Tablet 1 TAB PO (08:33)
[2020-08-01] MEDS: sevelamer 800 mg Tablet PO ×3 (08:33→17:40)
[2020-08-01] MEDS: clopidogrel 75 mg Tablet PO (08:33)
[2020-08-01] MEDS: metoprolol tartrate 25 mg Tablet PO (08:33)
[2020-08-01 11:00] LABS: Glucose Point of Care 113 mg/dL (70-110)
--- NOTE | 2020-08-01 11:07 | P.PN_ITS ---
Subjective Subjective: Interval history: He is doing well today with no specific complaints. He wants to sleep today and be left alone. No uremic symptoms. No extremity edema or other hypervolemic symptoms. Medications: Reviewed: Yes Medication Review Details: Current Medications Acetaminophen (Acetaminophen 325 Mg Tablet) 650 mg PO Q6H PRN PRN Reason: MILD PAIN Last Admin: 07/28/20 18:15 Dose: 650 mg Documented by: Aspirin (Aspirin 81 Mg Ec Tablet) 81 mg PO DAILY YANELI Last Admin: 07/28/20 09:21 Dose: 81 mg Documented by: Atorvastatin Calcium (Atorvastatin 40 Mg Tablet) 40 mg PO BEDTIME YANELI Last Admin: 07/28/20 22:00 Dose: 40 mg Documented by: Bisacodyl (Bisacodyl 10 Mg Supp) 10 mg [place] DAILY PRN PRN Reason: Constipation Dextrose (Dextrose 50% Syringe 50 Ml) 25 ml IVP ONCE PRN; Protocol PRN Reason: hypoglycemia protocol Dextrose (Dextrose 50% Syringe 50 Ml) 50 ml IVP PRN PRN; Protocol PRN Reason: hypoglycemia protocol Glucagon (Glucagon 1 Mg/Ml Inj 1 Ml) 1 mg IM ONCE PRN; Protocol PRN Reason: Adult Acute Hypoglycemia Prot. Imipenem/Cilastatin Sodium 250 (mg/ Sodium Chloride) 100 mls @ 200 mls/hr IV Q12H YANELI; Protocol Last Admin: 07/28/20 21:58 Dose: 200 mls/hr Documented by: Sodium Bicarbonate 150 meq/ (Dextrose) 1,150 mls @ 75 mls/hr IV .[id number] YANELI Last Admin: 07/29/20 09:11 Dose: Not Given Documented by: Sodium Chloride (Sodium Chloride 0.9%) 1,000 mls @ 30 mls/hr IV .Q24H YANELI Last Admin: 07/29/20 06:55 Dose: 30 mls/hr Documented by: Insulin Aspart (Insulin Aspart 100 Unit/1 Ml) 0 unit SUBCUT WM&BEDTIME YANELI; Protocol Last Admin: 07/28/20 22:46 Dose: 4 unit Documented by: Isosorbide Mononitrate (Isosorbide Mononitrate Er 30 Mg Tablet) 30 mg PO DAILY YANELI Last Admin: 07/28/20 09:21 Dose: 30 mg Documented by: Levetiracetam (Levetiracetam 500 Mg Tablet) 500 mg PO BID@0700,2100 YANELI Last Admin: 07/28/20 22:00 Dose: 500 mg Documented by: Metoprolol Tartrate (Metoprolol Tartrate 25 Mg Tablet) 25 mg PO Q12H [facility] Last Admin: 07/28/20 21:59 Dose: 25 mg Documented by: Mirtazapine (Mirtazapine 15 Mg Tablet) 15 mg PO BEDTIME [facility] Last Admin: 07/28/20 22:00 Dose: 15 mg Documented by: Neomycin/Polymyxin/Bacitracin (Kfcvsvec-Iwuz-Weqzbdharp Oint 28 Gm) 1 applic TOPICAL BID [facility] Last Admin: 07/28/20 18:15 Dose: 1 applic Documented by: Ondansetron HCl (Ondansetron 2 Mg/Ml Sdv 2 Ml) 4 mg IVP Q2M PRN PRN Reason: NAUSEA Pantoprazole Sodium (Pantoprazole Dr 40 Mg Tablet) 40 mg PO BID@18 [facility] Last Admin: 07/29/20 09:12 Dose: Not Given Documented by: Senna/Docusate Sodium (Sennosides-Docusate Tablet) 1 tab PO DAILY [facility] Last Admin: 07/28/20 09:21 Dose: 1 tab Documented by: Sevelamer Carbonate (Sevelamer 800 Mg Tablet) 1,600 mg PO TIDWM [facility] Last Admin: 07/28/20 18:16 Dose: 1,600 mg Documented by: Vitals/I&O/Wt Last Vital Signs Temp 98.1 F 08/01/20 07:21 Pulse 69 08/01/20 07:21 Resp 17 08/01/20 07:21 BP 144/60 08/01/20 07:21 Pulse Ox 97 08/01/20 07:21 07/31/20 08/01/20 08/01/20 22:59 06:59 14:59 Intake Total 960 / 1660 Output Total 275 / 275 400 / 400 Balance 960 / 1660 -275 / 1385 -400 / -400 Physical Exam Narrative: EXAM NARRATIVE: Constitutional: Awake, comfortable HEENT: Wet mucosa, no jvp, non icteric Lungs: Bilaterally clear without discernible wheeze, rales in all lung zones CVS: S1 S2, no murmurs Abdo: Soft, BS ok Ext 4: no edema, peripheral perfusion with no cyanosis Neurological: Grossly non-focal Data : 07/31/20 06:16 04/17/21 06:16 A&P Additional A&P Information 1. Renal Failure Dialysis performed Sunday Plan on dialysis on Sunday, orders placed and CCHT aware Avoid usual nephrotoxic agents Strict I's and O's Dose medication for GFR less than 15 2. Chemistry. Well balanced 3. Pyelonephritis Currently receiving Primaxin; mgmt per Dr Benitez 4. Hemodynamics blood pressure is well controlled 5. NSTEMI for medical mgmt 6. DC when nurse outreach case manager has set up outpatient care Thank you for consultation, as always it is a pleasure to follow these cases with you Dennis Carreon MD Nephrology [phone] Patient seen and examined via telemedicine, with the assistance of the bedside RN > 25 min spent in evaluation and mgmt of patient Attestations Medical Necessity Statement*: eval for renal failure Coding Level of Care Code Acute Home Health Aide Caregiver for [facility] Daniel
[2020-08-01 16:58] LABS: Glucose Point of Care 127 mg/dL (70-110)
[2020-08-01] MEDS: pantoprazole DR 40 mg Tablet PO (17:40)
[2020-08-01] MEDS: ondansetron 2 mg/ML SDV 2 mL 4 MG IVP (18:51)
--- NOTE | 2020-08-01 20:52 | PC.NURSE ---
PATIENT REFUSED ALL EVENING MEDICATION. STATED DO NOT WANT TO TAKE THEM, I HAVE BEEN NAUSEOUS. PATIENT WAS GIVEN ZOFRAN AT 1851 AND HAD EMESIS X1.
[2020-08-01 21:25] LABS: Glucose Point of Care 184 mg/dL (70-110)
--- NOTE | 2020-08-01 21:50 | PM.PN ---
Subjective Subjective: Interval history: Continues to feel better. He is surprised that dialysis is helped as much as it has. No new complaints Vitals/I&O/Wt Last Vital Signs Temp 97.4 F L 08/01/20 20:00 Pulse 83 08/01/20 20:00 Resp 18 08/01/20 20:00 BP 172/81 08/01/20 20:00 Pulse Ox 95 08/01/20 20:00 08/01/20 08/01/20 08/01/20 06:59 14:59 22:59 Intake Total 240 / 240 Output Total 275 / 275 400 / 400 Balance -275 / 1385 -400 / -400 240 / -160 Physical Exam Narrative: EXAM NARRATIVE: Asleep, arousable, answers questions, lungs are clear, dialysis catheter is intact with clean dressing in the right upper chest, no oozing. Regular rhythm. Abdomen is soft. No edema noted to the right BKA. Still has some healing scabs along stump site but I will mention that every time I been in the room, as it is now, he is laying with his knee bent and the stump touching the bed. There continues to be no drainage or fluctuance from the incision area. In the central area there is a more recently closed and erythematous site. There is some surrounding erythema unchanged around the entire incision site, no warmth. Data : 07/31/20 06:16 07/31/20 06:16 A&P Assessment and plan (1) Pyelonephritis of left kidney: ESBL E. coli status post 7 days of Primaxin, white count was normal, no fever. May be bacteriuria/colonization rather than infection, particularly with low colony counts. Pyelonephritis was diagnosed primarily on finding from CT scan of the perinephric stranding. Treated empirically due to comorbid conditions and presentation. Status: Acute (2) Acute worsening of stage 3 chronic kidney disease: Followed by nephrology, progressing to stage V/dialysis initiated 07/29/20 after tunneled hemodialysis catheter placement Status: Acute (3) NSTEMI (non-ST elevated myocardial infarction): With peak troponin of 238. Stress test showed some areas of ischemia, likely old. Cardiology has seen and current recommendations are for medical management. Status: Acute (4) Ischemic cardiomyopathy: Ejection fraction 35 to 40% Status: Chronic (5) Type 2 diabetes mellitus: Longstanding diagnosis, not on treatment, most recent hemoglobin A1c at 5.6. Has had A1c's greater than 7 on several occasions. Status: Chronic Qualifiers: Diabetes mellitus care home insulin use: without care home use Diabetes mellitus complication status: with kidney complications Diabetes mellitus complication detail: with chronic kidney disease Chronic kidney disease stage: stage 3 (moderate) Chronic kidney disease stage 3 subtype: stage 3b (GFR 30-44) Qualified Code(s): E11.22 - Type 2 diabetes mellitus with diabetic chronic kidney disease; N18.32 - Chronic kidney disease, stage 3b (6) Seizure disorder: on Keppra Status: Chronic (7) Anemia in CKD (chronic kidney disease): Status: Chronic (8) Peripheral arterial disease: Has been followed at wound care, s/p prior right BKA for critical limb ischemia Status: Chronic (9) Encephalopathy: Continued improvement. Initially multifactorial from metabolic process with uremia, infection as well as a probable component of what is perceived as alteration in mental status that is intentional at times when he is overwhelmed and does not want to talk about what is going on. Status: Resolved (10) Status post below knee amputation of right lower extremity: Patient complained of some itching at stump, incision site healing well but still with some scabbing Status: Acute Additional A&P Information Plan is for next HD tomorrow Once outpatient hemodialysis spot arranged can be discharged to SNF Routine care to tunnelled HD catheter site Status post 7 days of Primaxin ESBL E. coli Triple antibiotic ointment to stump as needed On statin, isosorbide, metoprolol and as needed nitroglycerin Add amlodipine and monitor On aspirin and Plavix SQ heparin for DVT prophylaxis Sliding scale insulin for diabetes as needed On home PPI Hydrocodone at home medicine twice daily as needed for pain Supportive care otherwise Anticipate DC back to skilled facility on Sunday assuming we have finalized an outpatient spot for hemodialysis Full code Plans were discussed with patient and he was given an opportunity to ask questions Attestations Medical Necessity Statement*: Requires ongoing inpatient stay for continued management status post initiation of hemodialysis. Will be dialyzed tomorrow and if does okay in outpatient spot arranged anticipate discharge Coding Level of Care Code Acute Patent Law Specialist for [facility] Fwd Diagnoses Pyelonephritis of left kidney N12 Acute worsening of stage 3 chronic kidney disease N18.30 NSTEMI (non-ST elevated myocardial infarction) I21.4 Ischemic cardiomyopathy I25.5 Type 2 diabetes mellitus E11.22; N18.32 Diabetes mellitus dedicated intermodal truck driver insulin use: without care home use Diabetes mellitus complication status: with kidney complications Diabetes mellitus complication detail: with chronic kidney disease Chronic kidney disease stage: stage 3 (moderate) Chronic kidney disease stage 3 subtype: stage 3b (GFR 30-44) Seizure disorder G40.909 Anemia in CKD (chronic kidney disease) N18.9; D63.1 Peripheral arterial disease I73.9 Encephalopathy G93.40 Status post below knee amputation of right lower extremity Z89.511
[2020-08-02] VITALS (8 sets, daily range): BP systolic 116–174; BP diastolic 64–80; PULSE 0–89; RESP 17–20; TEMP 36.7–37.4; O2SAT 93–98
[2020-08-02] MEDS: ondansetron 2 mg/ML SDV 2 mL 4 MG IVP (00:33)
[2020-08-02 07:25] LABS: Glucose Point of Care 109 mg/dL (70-110)
[2020-08-02] MEDS: heparin 5,000 unit/mL INJ 1 mL 5000 UNIT SUBCUT (08:38)
[2020-08-02] MEDS: isosorbide mononitrate ER 30 mg Tablet PO (08:41)
[2020-08-02] MEDS: sevelamer 800 mg Tablet PO ×2 (08:41→13:02)
[2020-08-02] MEDS: metoprolol tartrate 25 mg Tablet PO (08:41)
[2020-08-02] MEDS: clopidogrel 75 mg Tablet PO (08:41)
[2020-08-02] MEDS: aspirin 81 mg EC Tablet PO (08:41)
[2020-08-02] MEDS: amlodipine 5 mg Tablet PO (08:41)
[2020-08-02 10:42] LABS: Glucose Point of Care 126 mg/dL (70-110)
--- NOTE | 2020-08-02 11:04 | PC.SOCIAL ---
Pg 2 IMM Explained to pt Pg 2 IMM. No questions voiced. Provided pt a copy. Signed, dated, & timed a copy & placed in chart.
--- NOTE | 2020-08-02 11:34 | P.PN_ITS ---
Subjective Subjective: Interval history: He is doing well today with no specific complaints. No extremity edema or other hypervolemic symptoms. Pending dialysis Medications: Reviewed: Yes Medication Review Details: Current Medications Acetaminophen (Acetaminophen 325 Mg Tablet) 650 mg PO Q6H PRN PRN Reason: MILD PAIN Last Admin: 07/28/20 18:15 Dose: 650 mg Documented by: Aspirin (Aspirin 81 Mg Ec Tablet) 81 mg PO DAILY YANELI Last Admin: 07/28/20 09:21 Dose: 81 mg Documented by: Atorvastatin Calcium (Atorvastatin 40 Mg Tablet) 40 mg PO BEDTIME YANELI Last Admin: 07/28/20 22:00 Dose: 40 mg Documented by: Bisacodyl (Bisacodyl 10 Mg Supp) 10 mg [place] DAILY PRN PRN Reason: Constipation Dextrose (Dextrose 50% Syringe 50 Ml) 25 ml IVP ONCE PRN; Protocol PRN Reason: hypoglycemia protocol Dextrose (Dextrose 50% Syringe 50 Ml) 50 ml IVP PRN PRN; Protocol PRN Reason: hypoglycemia protocol Glucagon (Glucagon 1 Mg/Ml Inj 1 Ml) 1 mg IM ONCE PRN; Protocol PRN Reason: Adult Acute Hypoglycemia Prot. Imipenem/Cilastatin Sodium 250 (mg/ Sodium Chloride) 100 mls @ 200 mls/hr IV Q12H YANELI; Protocol Last Admin: 07/28/20 21:58 Dose: 200 mls/hr Documented by: Sodium Bicarbonate 150 meq/ (Dextrose) 1,150 mls @ 75 mls/hr IV .[id number] YANELI Last Admin: 07/29/20 09:11 Dose: Not Given Documented by: Sodium Chloride (Sodium Chloride 0.9%) 1,000 mls @ 30 mls/hr IV .Q24H YANELI Last Admin: 07/29/20 06:55 Dose: 30 mls/hr Documented by: Insulin Aspart (Insulin Aspart 100 Unit/1 Ml) 0 unit SUBCUT WM&BEDTIME YANELI; Protocol Last Admin: 07/28/20 22:46 Dose: 4 unit Documented by: Isosorbide Mononitrate (Isosorbide Mononitrate Er 30 Mg Tablet) 30 mg PO DAILY YANELI Last Admin: 07/28/20 09:21 Dose: 30 mg Documented by: Levetiracetam (Levetiracetam 500 Mg Tablet) 500 mg PO BID@0700,2100 YANELI Last Admin: 07/28/20 22:00 Dose: 500 mg Documented by: Metoprolol Tartrate (Metoprolol Tartrate 25 Mg Tablet) 25 mg PO Q12H [facility] Last Admin: 07/28/20 21:59 Dose: 25 mg Documented by: Mirtazapine (Mirtazapine 15 Mg Tablet) 15 mg PO BEDTIME [facility] Last Admin: 07/28/20 22:00 Dose: 15 mg Documented by: Neomycin/Polymyxin/Bacitracin (Aetyjvvk-Ugxl-Wrippcgnqr Oint 28 Gm) 1 applic TOPICAL BID [facility] Last Admin: 07/28/20 18:15 Dose: 1 applic Documented by: Ondansetron HCl (Ondansetron 2 Mg/Ml Sdv 2 Ml) 4 mg IVP Q2M PRN PRN Reason: NAUSEA Pantoprazole Sodium (Pantoprazole Dr 40 Mg Tablet) 40 mg PO BID@ [facility] Last Admin: 07/29/20 09:12 Dose: Not Given Documented by: Senna/Docusate Sodium (Sennosides-Docusate Tablet) 1 tab PO DAILY [facility] Last Admin: 07/28/20 09:21 Dose: 1 tab Documented by: Sevelamer Carbonate (Sevelamer 800 Mg Tablet) 1,600 mg PO TIDWM [facility] Last Admin: 07/28/20 18:16 Dose: 1,600 mg Documented by: Vitals/I&O/Wt Last Vital Signs Temp 98.7 F 08/02/20 11:23 Pulse 79 08/02/20 11:23 Resp 18 08/02/20 11:23 BP 143/64 08/02/20 11:23 Pulse Ox 95 08/02/20 11:23 08/01/20 08/02/20 08/02/20 22:59 06:59 14:59 Intake Total 240 / 240 Output Total 0 / 400 120 / 120 Balance 240 / -160 -120 / -120 Physical Exam Narrative: EXAM NARRATIVE: Constitutional: Awake, comfortable HEENT: Wet mucosa, no jvp, non icteric Lungs: Bilaterally clear without discernible wheeze, rales in all lung zones CVS: S1 S2, no murmurs Abdo: Soft, BS ok Ext 4: no edema, peripheral perfusion with no cyanosis Neurological: Grossly non-focal Data : 07/31/20 06:16 07/31/20 06:16 A&P Additional A&P Information 1. Renal Failure Dialysis performed Sunday, pending for today 3K, UF2-3L Avoid usual nephrotoxic agents Strict I's and O's Dose medication for GFR less than 15 2. Chemistry. Well balanced 3. Pyelonephritis Currently receiving Primaxin; mgmt per Dr Benitez 4. Hemodynamics blood pressure is well controlled 5. NSTEMI for medical mgmt 6. DC when case management social worker has set up outpatient care Thank you for consultation, as always it is a pleasure to follow these cases with you Dennis Carreon MD Nephrology [phone] Patient seen and examined via telemedicine, with the assistance of the bedside RN > 25 min spent in evaluation and mgmt of patient Attestations Medical Necessity Statement*: mgmt of ESRD Coding Level of Care Code Acute Smoke Chaser for Brandy Sanchez
--- NOTE | 2020-08-02 12:54 | P.DS_ITS ---
Discharge Providers Date of Admission: 07/24/20 14:49 Date of Discharge: August 02, 2020 Attending Provider at Admission: Hamilton Moscoso MD Attending Provider at Discharge: Hira Ruiz MD Primary Care Provider: Sajan Jack Jr, MD Diagnoses at Discharge Discharge Diagnosis (1) Pyelonephritis of left kidney: Status: Acute (2) Acute worsening of stage 3 chronic kidney disease: Status: Acute (3) NSTEMI (non-ST elevated myocardial infarction): Status: Acute (4) Ischemic cardiomyopathy: Status: Chronic (5) Type 2 diabetes mellitus: Status: Chronic Qualifiers: Diabetes mellitus oysterman insulin use: without nursing home use Diabetes mellitus complication status: with kidney complications Diabetes mellitus complication detail: with chronic kidney disease Chronic kidney disease stage: stage 3 (moderate) Chronic kidney disease stage 3 subtype: stage 3b (GFR 30-44) Qualified Code(s): E11.22 - Type 2 diabetes mellitus with diabetic chronic kidney disease; N18.32 - Chronic kidney disease, stage 3b (6) Seizure disorder: Status: Chronic (7) Anemia in CKD (chronic kidney disease): Status: Chronic (8) Peripheral arterial disease: Status: Chronic (9) Encephalopathy: Status: Resolved (10) Status post below knee amputation of right lower extremity: Status: Acute Reason for Visit Reason for Visit: labs Hospital Course Hospital Course This is a 30-year-old male with a past medical history of CKD, combined systolic diastolic CHF, diet-controlled type 2 diabetes mellitus, peripheral arterial disease, generalized epilepsy, anemia, history of BKA, who was recently taken off hospice who [facility] due to concerns for worsening kidney function Of note in January patient had osteomyelitis, severe diabetic infection on the right, worsening clinical status, did eventually have a right BKA, had waxing and waning episodes of deterioration, his DPOA made him comfort care, however patient showed significant clinical recovery, and recently was taken off comfort care, full code, alert oriented x3, can make decisions for himself, but his healthcare power of document review attorney is Sajan his brother Patient was found to have acute left pyelonephritis on admission, urine cultures growing ESBL E. coli, blood cultures were unremarkable, completed 7 days of Primaxin as inpatient. Patient also had encephalopathy admission secondary to uremia and pyelonephritis, which resolved throughout his hospitalization, discharge was alert oriented x3, following all commands. For his acute kidney injury on top of CKD stage III-IV, likely secondary to ATN, CRS, progression of CKD. After discussion of the risk and benefits, patient agreed to dialysis, received tunneled dialysis catheter, received inpatient dialysis, tolerated it well, will be discharged to the halfway on outpatient dialysis Sunday, with a follow-up with nephrology. Patient was found to have NSTEMI on admission, with history of CABG x3, echocardiogram showed EF of 35 to 40%, with mild global hypokinesis with moderate hypokinesis of the anteroseptal, inferoseptal esparza, grade 1 diastolic dysfunction. Cardiology was consulted, options that were discussed were cardiac cath versus cardiac stress test, patient had cardiac stress testing which showed: 1. Medium sized perfusion abnormality of moderate severity of entrie anterior, mid to apical anterolateral, mid to apical inferior with reversibility in basal anterior and basal to mid anterolateral esparza. 2. This likely represents old myocardial infarction in left anterior descending and circumflex artery territory with mild urmila-infarct ischemia. In absence of prone imaging sub diaphragmatic attenuation artifact cannot be ruled out. 3. The left ventricular ejection fraction is moderately reduced with a value of 33%. There is global hypokinesis more pronounced in septal and apical esparza. 4. The perfusion pattern is consistent with an ischemic cardiomyopathy. After discussion with patient and cardiology, the decision was made to pursue medical management, discharged on aspirin, Plavix, statin, beta-jacky, Imdur. If patient were to have chest pain or elevated troponins in the future will consider cardiac catheterization. We will have patient follow-up with cardiology in the next 1 to 2 weeks. For type 2 diabetes mellitus, diet controlled, last hemoglobin A1c 5.6 For patient's mixed systolic and diastolic heart failure, EF 35 to 40%, was not clinically fluid overloaded, his urine output remained lackluster, fluid overload will be managed primarily with dialysis. Physical Exam Const: COMMON NORMALS: no acute distress and patient oriented x3 HENMT: COMMON NORMALS: normocephalic HEAD & SCALP: normocephalic Neck/C-Spine: COMMON NORMALS: no JVD Resp: COMMON NORMALS: normal respiratory effort, No retractions, No use of accessory muscles and clear to auscultation bilaterally AUSCULTATION: clear to auscultation bilaterally Cardio: COMMON NORMALS: no JVD, regular rate, regular rhythm, S1 normal heart sound present and S2 normal heart sound present RATE: regular rate RHYTHM: regular rhythm HEART SOUNDS: S1 normal heart sound present and S2 normal heart sound present GI: COMMON NORMALS: Normal to inspection, nondistended, normoactive bowel sounds present, Soft to palpation, non-tender, No hepatosplenomegaly present, no masses and no bruits PALPATION: Yes Soft to palpation and Yes No hepatosplenomegaly present Extremity: NARRATIVE EXTREMITY EXAM: Right BKA stump clean and dry Neuro: COMMON NORMALS: patient oriented x3 Psych: COMMON NORMALS: mental status grossly normal Discharge Data Data Completed and Pending: Completed Studies During Hospitalization Category Date Time Status CT abdomen pelvis wo con [id number] Stat Cat Scan 07/23/20 09:26 Completed Sestamibi Stress Test Request Routi ne Exams 07/25/20 11:11 Completed XR chest 1V shar ble [id number] Urgent Exams 07/29/20 08:16 Completed XR chest 2V insp/ exp [id number] Routine Exams 07/28/20 08:30 Completed NM sujata perf SPECT r/s* [id number] Routin e Nuc Med 07/26/20 11:11 Completed CV echo complete* [id number] Routine Ultrasound 07/23/20 12:19 Completed US renal BI* [id number] Routine Ultrasound 07/23/20 12:41 Completed Pending at discharge Category Date Time Status ABO/Rh Type Routi ne Lab 07/28/20 22:53 Results Complete Blood Co unt w/Auto AM LABS Lab 08/01/20 04:00 Ordered Complete Crossmat ch Routine Lab 07/28/20 22:53 Results Comprehensive Met abolic Panel AM LA BS Lab 08/01/20 04:00 Ordered Frozen Plasma FZ <24 1st Cont Routi ne Lab 07/28/20 22:53 Results Magnesium AM LABS Lab 08/01/20 04:00 Ordered Phosphorus AM LAB S Lab 08/01/20 04:00 Ordered Platelets Leuko-R educed Routine Lab 07/28/20 22:53 Results Protein Electroph oresis, 24 HR Rout ine Lab 07/25/20 16:00 Results Type and Screen R outine Lab 07/28/20 22:53 Results Vitamin D 1,25 Di hydroxy Routine Lab 07/25/20 06:38 Received Labs from last 24 hours 08/02/20 08/02/20 08/01/20 10:38 06:23 20:37 POC Glucose 126 H 109 184 H 08/01/20 16:54 POC Glucose 127 H Vitals: Last Vital Signs Temp 98.7 F 08/02/20 11:23 Pulse 79 08/02/20 11:23 Resp 18 08/02/20 11:23 BP 143/64 08/02/20 11:23 Pulse Ox 95 08/02/20 11:23 Discharge Plan Discharge Patient Disposition: Xfer SNF Condition: Stable Prescriptions: New sennosides-docusate sodium [Stool Softener-Laxative] 8.6-50 mg Tablet 1 tab PO DAILY 30 Days Qty: 30 RF: 0 metoprolol tartrate 25 mg Tablet 25 mg PO Q12H 30 Days Qty: 60 RF: 0 isosorbide mononitrate 30 mg Tablet Extended Release 24 Hr 30 mg PO DAILY 30 Days Qty: 30 RF: 0 sevelamer carbonate 800 mg Tablet 800 mg PO TIDWM 30 Days Qty: 90 RF: 0 clopidogrel 75 mg Tablet 75 mg PO DAILY 30 Days Qty: 30 RF: 0 amlodipine 5 mg Tablet 5 mg PO DAILY 30 Days Qty: 30 RF: 0 aspirin 81 mg Tablet,Delayed Release (Dr/Ec) 81 mg PO DAILY 30 Days Qty: 30 RF: 0 atorvastatin 40 mg Tablet 40 mg PO BEDTIME 30 Days Qty: 30 RF: 0 Triple Antibiotic 3.5mg-400 unit- 5,000 unit/gram Ointment 1 applic topical BID 30 Days Qty: 28 RF: 0 Continued atropine 1 % drops 1 drp ophthalmic (eye) BID RF: 0 acetaminophen 325 mg tablet 650 mg PO Q4H PRN (Reason: Pain) RF: 0 Keppra 500 mg Tablet 500 mg PO BID@0700,2100 RF: 0 Vitamin C 500 mg Tablet 500 mg PO DAILY@0800 RF: 0 pantoprazole 40 mg Tablet,Delayed Release (Dr/Ec) 40 mg PO BID@06,18 RF: 0 bisacodyl 10 mg Suppository 10 mg OK DAILY PRN (Reason: Constipation) RF: 0 hydrocodone-acetaminophen 5-325 mg Tablet 1 tab PO BID PRN (Reason: Pain) RF: 0 Payton-Switchback Plus Cold+Flu 12.5-10-20-650 mg Powder In Packet 1 packet PO Q4H PRN (Reason: reflux) RF: 0 Discontinued ondansetron HCl [Zofran] 4 mg Tablet 4 mg PO Q6H PRN (Reason: Nausea) RF: 0 bumetanide 1 mg Tablet 1 mg PO BID@, RF: 0 Discharge Orders: Discharge Order (Routine); Ordered 08/02/20 Ordered By: Hira Ruiz Referrals: [facility] [Outside] Luis Garduno MD [Referring] - 4-7 days Sebastian West M.D [Physician] - 2 weeks (chf) Discharge Diet: Diabetic Discharge Activity: Resume usual activity Activity Restrictions/Additional Instructions: -Dialysis sunday -Please follow-up with nephrology -Please follow-up with cardiology Discharge Attestations Time Spent in Discharge Care*: less than 30 min Status at Discharge: Cognitive status at discharge: cognitively intact , Behavioral status at discharge: cooperative , Quality Metrics Clinical Quality Measures During this hospital stay, did patient experience: None Coding Level of Care Code Acute Chg DC note Diagnoses Pyelonephritis of left kidney N12 Acute worsening of stage 3 chronic kidney disease N18.30 NSTEMI (non-ST elevated myocardial infarction) I21.4 Ischemic cardiomyopathy I25.5 Type 2 diabetes mellitus E11.22; N18.32 Diabetes mellitus oysterman insulin use: without oysterman use Diabetes mellitus complication status: with kidney complications Diabetes mellitus complication detail: with chronic kidney disease Chronic kidney disease stage: stage 3 (moderate) Chronic kidney disease stage 3 subtype: stage 3b (GFR 30-44) Seizure disorder G40.909 Anemia in CKD (chronic kidney disease) N18.9; D63.1 Peripheral arterial disease I73.9 Encephalopathy G93.40 Status post below knee amputation of right lower extremity Z89.511
--- NOTE | 2020-08-02 13:45 | PC.NURSE ---
Patient to Dialysis at this time.
--- NOTE | 2020-08-02 14:59 | PC.NURSE ---
Report called to Montse CHAVEZ at [facility] at this time.
[2020-08-02 15:49] LABS: Basophils # 0.1 10^3/uL (0.0-0.1); Basophils % 0.7 %; Eosinophils # 0.2 10^3/uL (0.0-0.8); Eosinophils % 2.5 %; Hematocrit 30.5 % (42.0-52.0); Hemoglobin 9.6 g/dL (11.7-16.6); Lymphocytes % 11.1 %; Mean Corpuscular HGB Conc 31.5 g/dL (30.0-36.0); Mean Corpuscular Hemoglobin 29.9 pg (28.0-34.0); Mean Platelet Volume 10.1 fL (7.4-10.4); Monocytes # 0.5 10^3/uL (0.2-0.9); Monocytes % 5.2 %; Neutrophils # 7.13 10^3/uL (1.8-7.7); Neutrophils % 80.2 %; Nucleated Red Blood Cells % 0 %; Platelet Count 210 10^3/cmm (130-400); Red Blood Count 3.21 10^6/uL (4.1-5.3); Red Cell Distribution Width 18.2 % (12.1-15.1); White Blood Count 8.9 10^3/uL (4.0-10.0)
[2020-08-02 15:50] LABS: Alanine Aminotransferase < 5 U/L (0-41); Albumin Level 3.1 g/dL (3.5-5.2); Alkaline Phosphatase 56 IU/L (40-130); Aspartate Amino Transferase 11 U/L (0-40); Blood Urea Nitrogen 58 mg/dL (8-23); Calcium 8.4 mg/dL (8.5-10.5); Carbon Dioxide 27 mmol/L (22-29); Chloride 101 mmol/L (98-107); Globulin 2.9 g/dL (1.3-4.6); Glucose 112 mg/dL (65-115); Magnesium 1.8 mg/dL (1.7-2.3); Osmolality Calculated 307 mOsm/kg (285-295); Sodium 140 mmol/L (136-145); Total Bilirubin 0.3 mg/dL (0.15-1.2)
[2020-08-02 16:57] LABS: Glucose Point of Care 152 mg/dL (70-110)
--- NOTE | 2020-08-02 17:45 | PC.NURSE ---
Patient returned to his room at this time. Patient begin eating his dinner.
--- NOTE | 2020-08-02 19:12 | PC.NURSE ---
Patient assisted in to wheel chair to be taken to [facility] by ready transport. Patient is A&Ox3. Respirations even and non-labored on room air. Patient belongings sent with patient including cell phone.
--- NOTE | 2020-08-02 19:15 | PC.NURSE ---
Patient was discharged at 1830 not at 0630.
[2020-08-03 20:08] LABS: Vit D 1,25 (Oh)2, Total 11 pg/mL (18-72); Vit D2 1,25 (Oh)2 <8 pg/mL; Vit D3 1,25 (Oh)2 11 pg/mL
== END 2020-08-02 06:30 | disposition skilled nursing facility (03) | DRG 673 ==
LOC: ER 22:49 → MEDSURG 07-23 00:50
PROVIDERS: Hospitalist; Internal Medicine Nephrology; Surgery; Admitting Provider Internal Medicine; Emergency Provider Emergency Medicine; PCP Family Medicine; Visit Provider Family Medicine
PROC: 0JH63XZ Insertion of Tunneled Vascular Access Device into Chest Subcutaneous Tissue and Fascia, Percutaneous Approach (ICD-10-PCS; principal; 2020-07-29 07:00)
DX: E11.22 Type 2 diabetes mellitus with diabetic chronic kidney disease (principal); G92 Toxic encephalopathy; N18.6 End stage renal disease; I21.A1 Myocardial infarction type 2; I13.2 Hypertensive heart and chronic kidney disease with heart failure and with stage 5 chronic kidney disease, or end stage renal disease; I50.42 Chronic combined systolic (congestive) and diastolic (congestive) heart failure; N39.0 Urinary tract infection, site not specified; E87.2 Acidosis; N17.0 Acute kidney failure with tubular necrosis; D63.1 Anemia in chronic kidney disease; I25.10 Atherosclerotic heart disease of native coronary artery without angina pectoris; Z95.1 Presence of aortocoronary bypass graft; M19.90 Unspecified osteoarthritis, unspecified site; Z96.82 Presence of neurostimulator; E11.40 Type 2 diabetes mellitus with diabetic neuropathy, unspecified; E11.51 Type 2 diabetes mellitus with diabetic peripheral angiopathy without gangrene; Z89.511 Acquired absence of right leg below knee; Z87.891 Personal history of nicotine dependence; E86.0 Dehydration; Z87.440 Personal history of urinary (tract) infections; R56.9 Unspecified convulsions; I25.2 Old myocardial infarction; N10 Acute pyelonephritis; I25.5 Ischemic cardiomyopathy; Z79.891 Long term (current) use of opiate analgesic; A49.8 Other bacterial infections of unspecified site; Z86.16 Personal history of COVID-19; G89.29 Other chronic pain
CPT/HCPCS: 36415; 36416; 36600; 71045; 71046; 74176; 76000; 76770; 77001; 78452; 80048; 80051; 80053; 81001; 82044; 82306; 82310; 82330; 82436; 82570; 82652; 82728; 82805; 82962; 83036; 83540; 83550; 83735; 83880; 83970; 84100; 84133; 84155; 84156; 84165; 84300; 84484; 85025; 85999; 86706; 86803; 86850; 86900; 86927; 87040; 87077; 87086; 87186; 87340; 87426; 93005; 93017; 93306; 96360; 96365; 96372; 99285; A9500; C1750; G0378; J0690; J0743; J1644; J1650; J1815; J2270; J2405; J2704; J2785; J2916; J3010; J3490; J7030; P9017; Q3014; Q4081

== ENCOUNTER 2020-08-23 08:19 | Inpatient (IN) | payer MEDICARE, MEDICAID, SELFPAY ==
[2020-08-23] VITALS (33 sets, daily range): BP systolic 88–132; BP diastolic 42–75; PULSE 78–123; RESP 8–38; TEMP 36.7–39.2; O2SAT 95–100; BMI 25.1
--- NOTE | 2020-08-23 08:33 | CT_ITS ---
WS: [id number] CT HEAD NONCONTRAST HISTORY: AMS TECHNIQUE: Contiguous axial imaging performed through the brain in 2.5 mm imaging. Bone and soft tiss ue windows. Sagittal and coronal reformats reviewed. All CT scans at [facility] use at ast one of these dose optimization techniques: automated exposure control; mA and/or kV adjustment pe r patient size (includes targeted exams where dose is matched to clinical indication); or iterative r econstruction. DLP: 1112.75 mGy.cm COMPARISON: 06/27/2020 No acute intracranial hemorrhage, midline shift or mass effect. Mild atrophy with moderate chronic microvascular ischemic type changes in the white matter. Small lac unar infarct near the internal limb of the RIGHT basal ganglia. Ventricles: Normal size with no hydrocephalus. No inferior displacement of the cerebellar tonsils. Paranasal sinuses: Complete opacification of the RIGHT maxillary sinus with variable density. There i s a small air-fluid level in the LEFT maxillary sinus which is new. Mastoid air cells: Well pneumatized. Calvarium and scalp: Skull is intact with no soft tissue edema or swelling. Extensive calcifications in the intracranial carotid arteries. CT/CT head wo con* [id number] IMPRESSION: 1. No acute intracranial hemorrhage or edema. Stable noncontrast head CT. 2. New small air-fluid level in the LEFT maxillary sinus from sinusitis. 3. Complete opacification RIGHT maxillary sinus with changes of chronic sinusi tis.
--- NOTE | 2020-08-23 08:33 | CT_ITS ---
WS: [id number] CT ABDOMEN AND PELVIS WITH CONTRAST HISTORY: abd pain TECHNIQUE: Imaging performed of the abdomen and pelvis with IV contrast. Single phase imaging of the abdomen. Coronal and sagittal reformats are submitted. All CT scans at [facility] use at least one of these dose optimization techniques: automated exposure control; mA and/or kV adjustment per patient size (includes targeted exams where dose is matched to clinical indication); or iterativ e reconstruction. IV CONTRAST: Visipaque 320; 95 mL IV. Oral contrast: No DLP: 1873.98 mGy.cm COMPARISON: 07/23/2020 Lower thorax: Chronic interstitial thickening at the lung bases. No dense consolidation or pneumonia. Heart is normal size. No hiatal hernia. Liver/biliary system: Normal size liver. LEFT hepatic cyst measures 8 mm. No significant bile duct di latation. Gallbladder: Mildly distended gallbladder contains a 19 mm stone. Gallbladder is slightly over disten ded but the wall is not thickened and there is no adjacent fluid. Pancreas: Atrophied. Spleen: Normal size spleen. No mass or infarct. Adrenal glands: Normal. Right kidney: Mild atrophy. No obstruction. Left kidney: Mild atrophy with no obstruction. Aorta: Moderate atherosclerosis aorta with no aneurysm. Moderate atherosclerotic plaque in the proxim al celiac axis and SMA. Soft tissue thickening and stranding over the anterior chest wall. Lymphadenopathy: None. Free fluid: None. GI tract: The appendix is not definitely identified. There is moderate diffuse constipation and fecal retention. No wall measuring up to 8 mm. Abdominal wall: Unremarkable abdominal wall. No hernia. Pelvis: Mild diffuse thickening of the urinary bladder wall. Prostate gland is slightly enlarged. No adenopathy or ascites. Bones: Increase in the lumbar lordosis. Bones are osteopenic. CT/CT abdomen pelvis w con* [id number] IMPRESSION: 1. Cholelithiasis within a mildly distended gallbladder. Similar to prior stud ies. No adjacent wall thickening or inflammation. 2. No bile duct dilatation. 3. Moderate diffuse rectal wall thickening from prostatitis most likely. 4. Constipation. 5. Extensive atherosclerosis aorta. 6. Mild soft tissue thickening over the chest wall anteriorly. May related to extensive gynecomastia or edema from chest wall trauma.
--- NOTE | 2020-08-23 08:34 | XRR_ITS ---
PROCEDURE INFORMATION: Exam: XR Chest Exam date and time: 08/23/2020 8:37 AM Age: 70 years old Clinical indication: Cough and dyspnea; Patient HX: AMS, PT unable to give history, PT had to be held to get xray done; Additional info: Dyspnea/cough TECHNIQUE: Imaging protocol: XR of the chest. Views: 1 view. COMPARISON: CR XR chest 1V portable [id number] 07/29/2020 8:21 AM FINDINGS: Tubes, catheters and devices: Right IJ approach tunneled dialysis catheter is in satisfactory position, with distal tip in the RA. Lungs: Low lung volumes. Unchanged elevation of the left hemidiaphragm with adjacent atelectasis. No focal consolidation identified. Pleural spaces: Unremarkable. No pleural effusion. No pneumothorax. Heart/Mediastinum: Stable cardiomediastinal silhouette. Bones/joints: Median sternotomy changes seen. Degenerative changes of the spine and shoulder joints noted. XR/XR chest 1V portable [id number] IMPRESSION: Left basilar atelectasis. Pneumonia should be excluded clinically.
--- NOTE | 2020-08-23 08:34 | ECG_ITS ---
[facility] Test Date: 2020-08-23 Pat Name: Moy Fernandez Department: Room: Gender: Male [employer]: : [id number] Requested By: Chad Foster Order Number: [id number] Hal MD: Lashay Knapp M.D. Measurements Intervals Gilbert Rate: 97 P: -79 WI: 160 QRS: 21 QRSD: 110 T: 79 QT: 379 QTc: 483 Interpretive Statements SINUS RHYTHM POSSIBLE LEFT ATRIAL ENLARGEMENT [-0.1mV P WAVE IN V1/V2] POSSIBLE LEFT VENTRICULAR HYPERTROPHY [VOLTAGE CRITERIA PLUS LAE OR QRS WIDENING] INFERIOR MYOCARDIAL INFARCTION , POSSIBLY ACUTE [40+ ms Q WAVE AND/OR ST/T ABNORMALITY IN II/aVF] ACUTE HI Compared to ECG 07/24/2020 17:21:31 Myocardial infarct finding now present Sinus bradycardia no longer present Ventricular premature complex(es) no longer present ST (T wave) deviation no longer present Electronically Signed On 08-24-2020 9:29:03 CDT by Lashay Knapp M.D. [email or web address]
--- NOTE | 2020-08-23 08:35 | W.ED.GENADLT ---
HPI - General Adult General: Chief complaint: Altered Mental Status Stated complaint: AMS, LETHARGIC X 2 DAYS Time Seen by Provider: 08/23/20 08:20 History of Present Illness: HPI narrative: 70-year-old male [facility] with altered mental status. Reportedly his last known well was about 2 and half days ago. The nurse that came on duty this morning it seen on Sunday's that he had been his normal self had now today he is lethargic and nonresponsive. He has a history of end-stage renal disease. Be usually is able to get up ambulate and interact with the staff. Now his eyes are open but he does not respond to verbal stimuli. He will grimace with painful stimulus. He is tachycardic and febrile. 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 Onset (ago): unknown (Suspected at least 2 days) Severity: severe Relieving factors: none Exacerbating factors: none Associated symptoms: Reports confusion, dyspnea, fevers/chills and weakness; Deny cough Treatments prior to arrival: none Review of Systems General: Reports: ROS unobtainable due to medical condition Resp: Reports: dyspnea Neuro: Reports: confusion PFSH ED PFSH: Medical History Anemia in CKD (chronic kidney disease) Atherosclerotic heart disease of [place] coronary artery without angina pectoris CHF (congestive heart failure) Chronic ulcer of ankle CKD (chronic kidney disease), stage V started hemodialysis 07/29/2020 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 coli infection Hypertension Multilevel degenerative disc disease has known hx of multilevel DJD, s/p spinal stimulator Peripheral neuropathy Polyneuropathy in other diseases classified elsewhere Seizure disorder Spinal cord stimulator status Spinal stenosis Type 2 diabetes mellitus Surgical History S/P CABG x 3 S/P dialysis catheter insertion (07/29/20) Giurgius S/P insertion of spinal cord stimulator Status post below knee amputation of right lower extremity Family History Other Hyperlipidemia Hypertension Denies family history of Psychiatric illness Lung disease Social History Smoking and tobacco status: former smoker Alcohol intake: former Lives independently: No (Brother is his power of sports attorney, recently has had to be involved in more decisions) Housing: Detention Physical Exam HENMT: COMMON NORMALS: normocephalic and atraumatic HEAD & SCALP: normocephalic and atraumatic Neck/C-Spine: COMMON NORMALS: no JVD Resp: COMMON NORMALS: normal respiratory effort, No retractions, No use of accessory muscles and clear to auscultation bilaterally AUSCULTATION: clear to auscultation bilaterally Cardio: COMMON NORMALS: no JVD, regular rhythm and No murmurs present (Cardio) RATE: tachycardic RHYTHM: regular rhythm GI: COMMON NORMALS: Soft to palpation and No hepatosplenomegaly present AUSCULTATION: Yes normoactive bowel sounds PALPATION: Yes Soft to palpation, No Tenderness to palpation present (GI), No Guarding due to palpation present (GI) and Yes No hepatosplenomegaly present Extremity: COMMON NORMALS: capillary refill normal, no clubbing, cyanosis or edema, no calf tenderness and no pedal edema NARRATIVE EXTREMITY EXAM: Examination of the stump from the below the knee amputation on the right leg there is no evidence of skin breakdown ulceration the suture line appears clean its healing there is no drainage no erythema. Skin: COMMON NORMALS: no rashes or lesions noted GENERAL SKIN EXAM: no rashes or lesions noted Course Vital Signs: Vital signs: Vital Signs Temperature 98.9 F 08/24/20 11:34 Pulse Rate 70 08/24/20 10:00 Respiratory Rate 25 H 08/24/20 10:00 Blood Pressure 101/49 08/24/20 10:00 Pulse Oximetry 99 08/24/20 10:00 MDM - General Adult MDM Narrative: Medical decision making narrative: Patient acutely septic. Given fluid bolus started on antibiotics and significant leukocytosis given his previous antibiotic sensitivities on ESBL from UTI he was changed to Primaxin linezolid. 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 Discussed with Dr. Berger orders written. Lab Data: Labs: Lab Results 08/23/20 08/23/20 08/23/20 Range/Units 08:50 08:50 08:50 WBC 18.3 H (4.0-10.0) 10^3/ uL RBC 3.36 L (4.1-5.3) 10^6/u L Hgb 10.2 L (11.7-16.6) g/dL Hct 33.4 L (42.0-52.0) % MCV 99.4 H (80-94) fL MCH 30.4 (28.0-34.0) pg MCHC 30.5 (30.0-36.0) g/dL RDW 17.5 H (12.1-15.1) % Plt Count 169 (130-400) 10^3/c mm MPV 9.9 (7.4-10.4) fL Neut % (Auto) 88.8 % Lymph % (Auto) 2.5 % Andrews % (Auto) 7.4 % Eos % (Auto) 0.1 % Baso % (Auto) 0.4 % Neut # (Auto) 16.28 H (1.8-7.7) 10^3/u L Lymph # (Auto) 0.5 L (0.8-4.8) 10^3/u L Andrews # (Auto) 1.4 H (0.2-0.9) 10^3/u L Eos # (Auto) 0.0 (0.0-0.8) 10^3/u L Baso # (Auto) 0.1 (0.0-0.1) 10^3/u L Nucleated RBC % (a uto) 0 % Nucleated RBCs # 0.0 /100WBC Specimen Type Sample Site ABG pH (7.35-7.45) ABG pCO2 (35-45) mmHg ABG pO2 (80.0-100.0) mmH g ABG HCO3 (22-26) mmol/L ABG O2 Saturation ABG Base Excess (-2.0-2.0) mmol/ L Gabo Test A-a O2 Gradient (5-10) mmHg Hematocrit (42-52) % Hgb O2 Saturation (95-100) % Carboxyhemoglobin (0.4-20.1) %THgb Methemoglobin (0.4-1.5) % Total Hemoglobin (14-18) g/dL Ionized Calcium (1.1-1.4) mmol/L O2 Delivery Device O2 Liters/Min % FiO2 % Track Grinder Operator ID Sodium 135 L (136-145) mmol/L Potassium 4.0 (3.5-5.1) mmol/L Chloride 97 L (98-107) mmol/L Carbon Dioxide 22 (22-29) mmol/L Anion Gap 20.0 H (5-19) BUN 38 H (8-23) mg/dL Creatinine 3.8 H (0.7-1.2) mg/dL GFR Calculation Not Reportable Glucose 133 H (65-115) mg/dL Calculated Osmolal ity 291 (285-295) mOsm/k g Lactic Acid (0.5-2.2) mmol/L Calcium 8.8 (8.5-10.5) mg/dL Magnesium 1.4 L (1.7-2.3) mg/dL Total Bilirubin 0.3 (0.15-1.2) mg/dL AST 14 (0-40) U/L ALT 13 (0-41) U/L Alkaline Phosphata se 74 (40-130) IU/L Creatine Kinase 23 L (39-308) U/L Troponin T Baselin e (0-15) ng/L Troponin T 120 Min [place] (0-15) ng/L Delta Troponin T (0-10) ABS# Total Protein 6.5 L (6.6-8.7) g/dL Albumin 3.4 L (3.5-5.2) g/dL Globulin 3.1 (1.3-4.6) g/dL Lipase 61 H (13-60) U/L Urine Color (Yellow) Urine Appearance (CLEAR) Urine pH (5-7) Ur Specific Gravit y (1.005-1.030) Urine Protein (Negative) Urine Glucose (UA) (Normal) Urine Ketones (Negative) Urine Blood (Negative) Urine Nitrate (Negative) Urine Bilirubin (Negative) Prot Sulfosalicyli c Acd (Negative) Urine Urobilinogen (Negative) mg/dL Ur Leukocyte Nadege ase (Negative) Urine RBC (0-2) /hpf Urine WBC (0-5) /hpf Ur Squamous Epith Cells (0-5) /hpf Amorphous Sediment Urine Bacteria (NONE) /hpf Serum Ketones Positive H (Negative) Hep Bs Antigen (Nonreactive) Hepatitis C Antibo dy (Nonreactive) 08/23/20 08/23/20 08/23/20 Range/Units 08:50 08:50 08:55 WBC (4.0-10.0) 10^3/ uL RBC (4.1-5.3) 10^6/u L Hgb (11.7-16.6) g/dL Hct (42.0-52.0) % MCV (80-94) fL MCH (28.0-34.0) pg MCHC (30.0-36.0) g/dL RDW (12.1-15.1) % Plt Count (130-400) 10^3/c mm MPV (7.4-10.4) fL Neut % (Auto) % Lymph % (Auto) % Andrews % (Auto) % Eos % (Auto) % Baso % (Auto) % Neut # (Auto) (1.8-7.7) 10^3/u L Lymph # (Auto) (0.8-4.8) 10^3/u L Andrews # (Auto) (0.2-0.9) 10^3/u L Eos # (Auto) (0.0-0.8) 10^3/u L Baso # (Auto) (0.0-0.1) 10^3/u L Nucleated RBC % (a uto) % Nucleated RBCs # /100WBC Specimen Type Arterial Sample Site Radial, left ABG pH 7.51 H (7.35-7.45) ABG pCO2 31.4 L (35-45) mmHg ABG pO2 123.0 H (80.0-100.0) mmH g ABG HCO3 24.8 (22-26) mmol/L ABG O2 Saturation 98.3 ABG Base Excess 1.9 (-2.0-2.0) mmol/ L Gabo Test Pos A-a O2 Gradient 12.2 H (5-10) mmHg Hematocrit 27.6 L (42-52) % Hgb O2 Saturation 97.0 (95-100) % Carboxyhemoglobin 0.2 L (0.4-20.1) %THgb Methemoglobin 1.2 (0.4-1.5) % Total Hemoglobin 9.0 L (14-18) g/dL Ionized Calcium 1.1 (1.1-1.4) mmol/L O2 Delivery Device Nc O2 Liters/Min 4.0 % FiO2 36.0 % Track Grinder Operator ID Cak Sodium 138.0 (136-145) mmol/L Potassium 4.1 (3.5-5.1) mmol/L Chloride (98-107) mmol/L Carbon Dioxide (22-29) mmol/L Anion Gap (5-19) BUN (8-23) mg/dL Creatinine (0.7-1.2) mg/dL GFR Calculation Glucose 139.0 H (65-115) mg/dL Calculated Osmolal ity (285-295) mOsm/k g Lactic Acid (0.5-2.2) mmol/L Calcium (8.5-10.5) mg/dL Magnesium (1.7-2.3) mg/dL Total Bilirubin (0.15-1.2) mg/dL AST (0-40) U/L ALT (0-41) U/L Alkaline Phosphata se (40-130) IU/L Creatine Kinase (39-308) U/L Troponin T Baselin e 277 H* (0-15) ng/L Troponin T 120 Min [place] (0-15) ng/L Delta Troponin T (0-10) ABS# Total Protein (6.6-8.7) g/dL Albumin (3.5-5.2) g/dL Globulin (1.3-4.6) g/dL Lipase (13-60) U/L Urine Color (Yellow) Urine Appearance (CLEAR) Urine pH (5-7) Ur Specific Gravit y (1.005-1.030) Urine Protein (Negative) Urine Glucose (UA) (Normal) Urine Ketones (Negative) Urine Blood (Negative) Urine Nitrate (Negative) Urine Bilirubin (Negative) Prot Sulfosalicyli c Acd (Negative) Urine Urobilinogen (Negative) mg/dL Ur Leukocyte Nadege ase (Negative) Urine RBC (0-2) /hpf Urine WBC (0-5) /hpf Ur Squamous Epith Cells (0-5) /hpf Amorphous Sediment Urine Bacteria (NONE) /hpf Serum Ketones (Negative) Hep Bs Antigen Non-reactive (Nonreactive) Hepatitis C Antibo dy Non-reactive (Nonreactive) 08/23/20 08/23/20 08/23/20 Range/Units 10:32 10:40 10:40 WBC (4.0-10.0) 10^3/ uL RBC (4.1-5.3) 10^6/u L Hgb (11.7-16.6) g/dL Hct (42.0-52.0) % MCV (80-94) fL MCH (28.0-34.0) pg MCHC (30.0-36.0) g/dL RDW (12.1-15.1) % Plt Count (130-400) 10^3/c mm MPV (7.4-10.4) fL Neut % (Auto) % Lymph % (Auto) % Andrews % (Auto) % Eos % (Auto) % Baso % (Auto) % Neut # (Auto) (1.8-7.7) 10^3/u L Lymph # (Auto) (0.8-4.8) 10^3/u L Andrews # (Auto) (0.2-0.9) 10^3/u L Eos # (Auto) (0.0-0.8) 10^3/u L Baso # (Auto) (0.0-0.1) 10^3/u L Nucleated RBC % (a uto) % Nucleated RBCs # /100WBC Specimen Type Sample Site ABG pH (7.35-7.45) ABG pCO2 (35-45) mmHg ABG pO2 (80.0-100.0) mmH g ABG HCO3 (22-26) mmol/L ABG O2 Saturation ABG Base Excess (-2.0-2.0) mmol/ L Gabo Test A-a O2 Gradient (5-10) mmHg Hematocrit (42-52) % Hgb O2 Saturation (95-100) % Carboxyhemoglobin (0.4-20.1) %THgb Methemoglobin (0.4-1.5) % Total Hemoglobin (14-18) g/dL Ionized Calcium (1.1-1.4) mmol/L O2 Delivery Device O2 Liters/Min % FiO2 % Track Grinder Operator ID Sodium (136-145) mmol/L Potassium (3.5-5.1) mmol/L Chloride (98-107) mmol/L Carbon Dioxide (22-29) mmol/L Anion Gap (5-19) BUN (8-23) mg/dL Creatinine (0.7-1.2) mg/dL GFR Calculation Glucose (65-115) mg/dL Calculated Osmolal ity (285-295) mOsm/k g Lactic Acid 2.2 (0.5-2.2) mmol/L Calcium (8.5-10.5) mg/dL Magnesium (1.7-2.3) mg/dL Total Bilirubin (0.15-1.2) mg/dL AST (0-40) U/L ALT (0-41) U/L Alkaline Phosphata se (40-130) IU/L Creatine Kinase (39-308) U/L Troponin T Baselin e (0-15) ng/L Troponin T 120 Min [place] 271.3 H (0-15) ng/L Delta Troponin T -5.7 L (0-10) ABS# Total Protein (6.6-8.7) g/dL Albumin (3.5-5.2) g/dL Globulin (1.3-4.6) g/dL Lipase (13-60) U/L Urine Color Straw (Yellow) Urine Appearance Clear (CLEAR) Urine pH 8 H (5-7) Ur Specific Gravit y 1.010 (1.005-1.030) Urine Protein 3+ H (Negative) Urine Glucose (UA) Norm (Normal) Urine Ketones Negative (Negative) Urine Blood Neg (Negative) Urine Nitrate Negative (Negative) Urine Bilirubin Neg (Negative) Prot Sulfosalicyli c Acd Positive (Negative) Urine Urobilinogen Norm (Negative) mg/dL Ur Leukocyte Nadege ase Negative (Negative) Urine RBC None (0-2) /hpf Urine WBC 5-10 H (0-5) /hpf Ur Squamous Epith Cells 5-10 H (0-5) /hpf Amorphous Sediment Not Reportable Urine Bacteria Trace (NONE) /hpf Serum Ketones (Negative) Hep Bs Antigen (Nonreactive) Hepatitis C Antibo dy (Nonreactive) Critical Care Time Critical Care Time: Critical Care Time: Yes Total Critical Care Time: 45 Attestation: This case had a high probability of a clinically significant, sudden, or life threatening deterioration of this patient's condition which required my full and direct attention, intervention and personal management. Discharge Plan Discharge Patient Disposition: Admitted As Inpatient Admit Provider: Matias Young Clinical Impression: Sepsis, Acute encephalopathy, Pneumonia, Elevated troponin, Diabetic peripheral neuropathy associated with type 2 diabetes mellitus, Type 2 diabetes mellitus, CHF (congestive heart failure), Hypertension, CAD (coronary artery disease), Hypomagnesemia Condition: Stable Coding Level of Care Code ED Crop Consultant for Chg Fwd Exam Detailed
[2020-08-23 09:08] LABS: ABG PCO2 31.4 mmHg (35-45); ABG PH Result 7.51 (7.35-7.45); Arterial Blood Gas Hematocrit 27.6 % (42-52); Base Excess ABG 1.9 mmol/L (-2.0-2.0); Blood Gas Allen Test Pos; Blood Gas Operator Identificat CAK; Blood Gas Sample Site Radial, left; Blood Gas Sample Type Arterial; Carboxyhemoglobin 0.2 %THgb (0.4-20.1); HCO3 ABG 24.8 mmol/L (22-26); Ionized Calcium Level - ABG 1.1 mmol/L (1.1-1.4); Methemoglobin 1.2 % (0.4-1.5); Oxygen Device NC; Oxygen Saturation ABG 98.3; Potassium Level - ABG 4.1 mmol/L (3.5-5.0)
[2020-08-23 09:09] LABS: Alveolar-Arterial Oxygen Gradi 12.2 mmHg (5-10)
[2020-08-23 09:10] LABS: Basophils # 0.1 10^3/uL (0.0-0.1); Basophils % 0.4 %; Eosinophils % 0.1 %; Hematocrit 33.4 % (42.0-52.0); Hemoglobin 10.2 g/dL (11.7-16.6); Lymphocytes # 0.5 10^3/uL (0.8-4.8); Lymphocytes % 2.5 %; Mean Corpuscular HGB Conc 30.5 g/dL (30.0-36.0); Mean Corpuscular Hemoglobin 30.4 pg (28.0-34.0); Mean Corpuscular Volume 99.4 fL (80-94); Mean Platelet Volume 9.9 fL (7.4-10.4); Monocytes # 1.4 10^3/uL (0.2-0.9); Monocytes % 7.4 %; Neutrophils # 16.28 10^3/uL (1.8-7.7); Neutrophils % 88.8 %; Nucleated Red Blood Cells % 0 %; Platelet Count 169 10^3/cmm (130-400); Red Blood Count 3.36 10^6/uL (4.1-5.3); Red Cell Distribution Width 17.5 % (12.1-15.1); White Blood Count 18.3 10^3/uL (4.0-10.0)
[2020-08-23] MEDS: iodixanol 320 mg/mL 100mL Btl IV (09:20)
[2020-08-23 09:32] LABS: Ketone (Acetest) Serum Positive (Negative)
[2020-08-23 09:33] LABS: Alanine Aminotransferase 13 U/L (0-41); Albumin Level 3.4 g/dL (3.5-5.2); Alkaline Phosphatase 74 IU/L (40-130); Aspartate Amino Transferase 14 U/L (0-40); Blood Urea Nitrogen 38 mg/dL (8-23); Calcium 8.8 mg/dL (8.5-10.5); Carbon Dioxide 22 mmol/L (22-29); Chloride 97 mmol/L (98-107); Creatine Phosphokinase 23 U/L (39-308); Globulin 3.1 g/dL (1.3-4.6); Glucose 133 mg/dL (65-115); Lipase 61 U/L (13-60); Magnesium 1.4 mg/dL (1.7-2.3); Osmolality Calculated 291 mOsm/kg (285-295); Sodium 135 mmol/L (136-145); Total Bilirubin 0.3 mg/dL (0.15-1.2); Total Protein 6.5 g/dL (6.6-8.7)
[2020-08-23 09:37] LABS: Troponin(5th) Baseline 277 ng/L (0-15)
[2020-08-23] MEDS: levofloxacin-dextrose 5 % 750 MG/150 ML PREMIX 100 MG IV (10:04)
--- NOTE | 2020-08-23 10:34 | ECG_ITS ---
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 Measurements Intervals [place] Rate: 92 P: 13 SC: 124 QRS: 39 QRSD: 111 T: 95 QT: 404 QTc: 502 Interpretive Statements SINUS RHYTHM LEFT VENTRICULAR HYPERTROPHY AND ST-T CHANGE [VOLTAGE CRITERIA PLUS ST/T ABNORMALITY] INFERIOR MYOCARDIAL INFARCTION , PROBABLY OLD [40+ ms Q WAVE AND/OR ST/T ABNORMALITY IN II/aVF] Compared to ECG 08/23/2020 08:53:02 ST (T wave) deviation now present Myocardial infarct finding still present Electronically Signed On 08-24-2020 17:39:05 CDT by Lashay Knapp M.D. [id number]
[2020-08-23] MEDS: linezolid premix 600 MG/300 ML PREMIX 300 MG IV (10:38)
[2020-08-23 10:55] LABS: Add Urine Culture? No; Add Urine Microscopic? YES; Bacteria Urine TRACE /hpf; Bilirubin Urine Neg (Negative); Blood Urine Neg (Negative); Glucose Urine UA Norm (Normal); Ketones Urine Negative (Negative); Leukocyte Esterase Urine Negative (Negative); Nitrate Urine Negative (Negative); Protein Urine 3+ (Negative); Sulfosalicylic Acid Urine Positive (Negative); Urine Appearance Clear (CLEAR); Urine Color Straw (Yellow); Urobilinogen Urine Norm (Negative); pH Urine 8 (5-7)
[2020-08-23 11:13] LABS: Lactic Sepsis W/Reflex 2.2 mmol/L (0.5-2.2)
--- NOTE | 2020-08-23 11:41 | PC.NURSE ---
Attempted to call report. ICU nurse unable to take report at this time.
[2020-08-23 11:48] LABS: Troponin 5 2HR 271.3 ng/L (0-15); Troponin 5 2HR Delta -5.7 ABS# (0-10)
[2020-08-23 12:54] LABS: Reflex Lactate Order REFLEX LACTIC ORDERD
--- NOTE | 2020-08-23 14:34 | ECG_ITS ---
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 Measurements Intervals [place] Rate: 85 P: -28 [place]: 130 QRS: 39 QRSD: 113 T: 124 QT: 396 QTc: 471 Interpretive Statements SINUS RHYTHM MODERATE INTRAVENTRICULAR CONDUCTION DELAY [110+ ms QRS DURATION] ST DEVIATION AND MODERATE T-WAVE ABNORMALITY, CONSIDER LATERAL ISCHEMIA Compared to ECG 08/23/2020 10:56:19 Intraventricular conduction delay now present T-wave abnormality now present Possible ischemia now present Left ventricular hypertrophy no longer present ST (T wave) deviation no longer present Myocardial infarct finding no longer present Electronically Signed On 08-24-2020 17:37:57 CDT by Lashay Knapp M.D. [id number]
[2020-08-23] MEDS: heparin 5,000 unit/mL INJ 1 mL 5000 UNIT SUBCUT (15:03)
--- NOTE | 2020-08-23 15:12 | PM.HP ---
Providers/Chief Complaint Admitting Physician: Matias Young MD Primary Care Provider: Sajan Jack Jr, MD Chief Complaint: AMS, LETHARGIC X 2 DAYS History of Present Illness Moy Fernandez is a 70 year old male who presented via the nursing facility home where he lives with history of lethargy noted since last evening or early this morning. He was difficult to awaken at the nursing facility when seen by the nurse practitioner. He had an episode of nausea and vomiting. He had recently been transition to dialysis for the last 2 to 3 weeks. A temperature at the nursing facility was 99.7, but he had not had significant cough or diarrhea. He did undergo dialysis on Sunday. The patient is not able to give any history on his own, secondary to his lethargic. After being treated for while in the emergency department, he was able to say hello to me but could still not carry on a conversation. Review of Systems General: Reports: ROS unobtainable due to mental status (Secondary to severe lethargy) Medications/Allergies Home Medications Medication Instructions Recorded Confirmed Last Taken Type acetaminophen 650 mg PO Q4H PRN 02/14/20 08/23/20 08/15/20 History [place] Plus Cold+Flu 1 packet PO Q4H PRN 07/23/20 08/23/20 08/21/20 History ascorbic acid (vitamin C) [Vitamin 500 mg PO DAILY@0800 07/23/20 08/23/20 08/22/20 History C] hydrocodone-acetaminophen 1 tab PO BID PRN 07/23/20 08/23/20 08/19/20 History levetiracetam [Keppra] 500 mg PO BID@0700,2100 07/23/20 08/23/20 08/22/20 History pantoprazole 40 mg PO BID@06,18 07/23/20 08/23/20 08/23/20 History amlodipine 5 mg PO DAILY 30 Days #30 tab 08/02/20 08/23/20 08/22/20 Rx aspirin 81 mg PO DAILY 30 Days #30 tab 08/02/20 08/23/20 08/22/20 Rx atorvastatin 40 mg PO BEDTIME 30 Days #30 tab 08/02/20 08/23/20 08/22/20 Rx clopidogrel 75 mg PO DAILY 30 Days #30 tab 08/02/20 08/23/20 08/22/20 Rx isosorbide mononitrate 30 mg PO DAILY 30 Days #30 tab 08/02/20 08/23/20 08/22/20 Rx metoprolol tartrate 25 mg PO Q12H 30 Days #60 tab 08/02/20 08/23/20 08/22/20 Rx sevelamer carbonate 800 mg PO TIDWM 30 Days #90 tab 08/02/20 08/23/20 08/22/20 Rx bisacodyl 10 mg CA DAILY PRN 08/23/20 08/23/20 Unknown History nystatin 1 unit PO DAILY 08/23/20 08/23/20 08/22/20 History Allergies Allergy/AdvReac Type Severity Reaction Status Date / Time No Known Allergies Allergy Verified 08/17/20 15:25 PFSH Acute PFSH: Medical History (Updated 08/23/20 @ 15:27 by Matias Young MD) Anemia in CKD (chronic kidney disease) Atherosclerotic heart disease of [place] coronary artery without angina pectoris CHF (congestive heart failure) Chronic ulcer of ankle CKD (chronic kidney disease), stage V started hemodialysis 07/29/2020 Combined systolic and diastolic congestive heart failure Echo 08/04 demonstrates EF 35 to 40% COVID-19 (~01/2020) Diabetes mellitus History of ESBL E. coli infection Hypertension Multilevel degenerative disc disease has known hx of multilevel DJD, s/p spinal stimulator Peripheral neuropathy Polyneuropathy in other diseases classified elsewhere Seizure disorder Spinal cord stimulator status Spinal stenosis Type 2 diabetes mellitus Surgical History S/P CABG x 3 S/P dialysis catheter insertion (07/29/20) Giurgius S/P insertion of spinal cord stimulator Status post below knee amputation of right lower extremity Family History Other Hyperlipidemia Hypertension Denies family history of Psychiatric illness Lung disease Social History (Updated 08/23/20 @ 15:14 by Matias Young MD) Smoking and tobacco status: former smoker Alcohol intake: former Lives independently: No (Brother is his power of windows server specialist, recently has had to be involved in more decisions) Housing: [facility] Vitals/I&O/Wt Last Vital Signs Temp 102.5 F H 05/10/21 08:32 Pulse 85 08/23/20 14:33 Resp 26 H 08/23/20 14:15 BP 98/54 08/23/20 14:15 Pulse Ox 97 08/23/20 14:33 08/23/20 08/23/20 08/23/20 06:59 14:59 22:59 Intake Total 550 / 550 Balance 550 / 550 Weight last 48 hrs Weight 81.647 kg Physical Exam Narrative: EXAM NARRATIVE: General exam is a lethargic male, who does not appear to be in any distress. HEENT: Pupils equally round. Oropharynx clear. Neck is supple. No tenderness to palpation. Negative Kernig's and Brudzinski's. Cardiovascular regular rate and rhythm without murmur, no S3 or S4 Lungs diminished breath sounds at the bases but clear Abdomen is soft. Some distention is noted. No obvious tenderness. deferred Extremities left lower extremity amputation, below the knee. Right no cyanosis or clubbing. Neurologic: No obvious focal deficits but difficult with cooperation with exam Skin no rash Sepsis: Is patient septic: Yes Focused sepsis exam performed: Yes Date exam was performed: 08/23/20 Time exam was performed: 10:45 Data : 08/23/20 08:50 08/23/20 08:50 Micro: Microbiology 08/23/20 08:50 Blood Culture - Preliminary Blood SPECIMEN COLLECTED 08/23/20 08:45 Blood Culture - Preliminary Blood SPECIMEN COLLECTED Other data: ABG demonstrated pH 7.5, PCO2 31, PO2 of 123 on 4 L Magnesium 1.4 Lactic acid 2.2 LFTs normal Ammonia level 23 Albumin 3.4 Lipase 61 Urine demonstrates 5-10 white cells 5-10 squamous Positive serum ketones Chest x-ray left base atelectasis versus infiltrate Head CT opacification of the sinuses, with air-fluid level on the left. No intracranial hemorrhage or edema Abdominal pelvis CT demonstrated cholelithiasis, mildly distended gallbladder, no ductal limitation, rectal wall thickening, constipation Past cultures demonstrated ESBL, VRE from urine and soft tissue EKG demonstrated sinus rhythm, normal axis, Q waves inferiorly, flipped T waves laterally Initial troponin 277, with repeat in 2 hours of 271 A&P Assessment and plan (1) Sepsis: Has severe sepsis, not septic shock Presented with fever, oxygen requirement, pneumonia, tachycardia, borderline hypotension, significant leukocytosis IV antibiotics consisting of Primaxin, linezolid. Note he has a history of ESBL UTI. 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 Blood and urine cultures are sent. If blood cultures returned positive, may need further investigation depending on organism Not candidate for fluids in this dialysis patient with history of EF of 35 to 40% Status: Acute (2) Acute encephalopathy: Secondary to pneumonia. Monitor closely for improvement No exam findings currently to suggest meningitis Status: Acute (3) Pneumonia: IV antibiotics of linezolid and Primaxin MRSA PCR Sputum culture Status: Acute (4) Elevated troponin: Likely type II Status: Acute (5) Hypomagnesemia: Supplement cautiously secondary to renal failure Status: Acute (6) CKD (chronic kidney disease), stage V: Continue dialysis Nephrology consultation Status: Acute (7) Type 2 diabetes mellitus: Sliding scale insulin Status: Chronic Qualifiers: Diabetes mellitus river driver insulin use: without river driver use Diabetes mellitus complication status: with kidney complications Diabetes mellitus complication detail: with chronic kidney disease Chronic kidney disease stage: stage 3 (moderate) Chronic kidney disease stage 3 subtype: stage 3b (GFR 30-44) Qualified Code(s): E11.22 - Type 2 diabetes mellitus with diabetic chronic kidney disease; N18.32 - Chronic kidney disease, stage 3b (8) Seizure disorder: Continue Keppra. Change to IV if he is not able to swallow p.o. Status: Chronic (9) Combined systolic and diastolic congestive heart failure: Continue home medications with the exception of metoprolol, Norvasc, Imdur secondary to borderline hypotension Status: Chronic Qualifiers: Heart failure chronicity: chronic Qualified Code(s): I50.42 - Chronic combined systolic (congestive) and diastolic (congestive) heart failure Additional A&P Information Allow natural per nursing facility records Heparin will suffice for DVT prophylaxis Attestations Medical Necessity Statement*: Will need greater than 2 midnight stay for evaluation and treatment of sepsis with IV antibiotics. Time Spent in Patient Care: Greater than 35 minutes Critical Care Time: Critical Care Time (min): 62 Other Attestations: The high probability of a clinically significant, sudden or life threatening deterioration of the patient's [pulmonary, cardiac, infectious, renal] system(s) required my full and direct attention, intervention and personal management. The critical care time is as shown. This time is in addition to time spent performing any reported procedures but includes the following: [x] Data and vital sign review and interpretation [x] Patient assessment, examination and intervention [x] Documentation [x] Medication orders and management Coding Level of Care Code Acute Senior Web Developer for Chg Fwd Diagnoses Sepsis A41.9 Acute encephalopathy G93.40 Pneumonia J18.9 Elevated troponin R77.8 Hypomagnesemia E83.42 CKD (chronic kidney disease), stage V N18.5 Type 2 diabetes mellitus E11.22; N18.32 Diabetes mellitus river driver insulin use: without river driver use Diabetes mellitus complication status: with kidney complications Diabetes mellitus complication detail: with chronic kidney disease Chronic kidney disease stage: stage 3 (moderate) Chronic kidney disease stage 3 subtype: stage 3b (GFR 30-44) Seizure disorder G40.909 Combined systolic and diastolic congestive heart failure I50.42 Heart failure chronicity: chronic
--- NOTE | 2020-08-23 15:24 | PM.CONSULT ---
Providers/Reason For Consult Consulting Physican/Specialty*: Lola Whitten DO, telenephrology Reason for Consult*: ESRD Attending Physician: Matias Young MD Primary Care Provider: Sajan Jack Jr, MD History of Present Illness History of Present Illness Moy Fernandez is a 70 year old male presents from [facility] via [facility] for evaluation of altered mental status x about 48 hours. Febrile. Admitted with possible sepsis. ESRD HD MWF Review of Systems General: Reports: ROS unobtainable due to mental status Meds/Allergies Home Medications and Allergies Home Medications Medication Instructions Recorded Confirmed Last Taken Type acetaminophen 650 mg PO Q4H PRN 02/14/20 08/23/20 08/15/20 History [place] Plus Cold+Flu 1 packet PO Q4H PRN 07/23/20 08/23/20 08/21/20 History ascorbic acid (vitamin C) [Vitamin 500 mg PO DAILY@0800 07/23/20 08/23/20 08/22/20 History C] hydrocodone-acetaminophen 1 tab PO BID PRN 07/23/20 08/23/20 08/19/20 History levetiracetam [Keppra] 500 mg PO BID@0700,2100 07/23/20 08/23/20 08/22/20 History pantoprazole 40 mg PO BID@06,18 07/23/20 08/23/20 08/23/20 History amlodipine 5 mg PO DAILY 30 Days #30 tab 08/02/20 08/23/20 08/22/20 Rx aspirin 81 mg PO DAILY 30 Days #30 tab 08/02/20 08/23/20 08/22/20 Rx atorvastatin 40 mg PO BEDTIME 30 Days #30 tab 08/02/20 08/23/20 08/22/20 Rx clopidogrel 75 mg PO DAILY 30 Days #30 tab 08/02/20 08/23/20 08/22/20 Rx isosorbide mononitrate 30 mg PO DAILY 30 Days #30 tab 08/02/20 08/23/20 08/22/20 Rx metoprolol tartrate 25 mg PO Q12H 30 Days #60 tab 08/02/20 08/23/20 08/22/20 Rx sevelamer carbonate 800 mg PO TIDWM 30 Days #90 tab 08/02/20 08/23/2021 Rx bisacodyl 10 mg SC DAILY PRN 08/23/20 08/23/20 Unknown History nystatin 1 unit PO DAILY 08/23/20 08/23/20 08/22/20 History Allergies Allergy/AdvReac Type Severity Reaction Status Date / Time No Known Allergies Allergy Verified 08/17/20 15:25 Current Medications Current Medications Generic Name Dose Route Start Last Admin Trade Name Freq PRN Reason Stop Dose Admin Heparin Sodium (Beef Lung) 5,000 unit 08/23/20 15:00 08/23/20 15:03 Heparin 5,000 Unit/Ml Inj 1 Ml SUBCUT 5,000 unit Q12H YANELI Administration Imipenem/Cilastatin Sodium 250 100 mls @ 200 mls/hr 08/23/20 14:30 08/23/20 15:03 mg/ Sodium Chloride IV 200 mls/hr Q12H YANELI Administration Protocol PFSH Acute PFSH: Medical History Anemia in CKD (chronic kidney disease) Atherosclerotic heart disease of [place] coronary artery without angina pectoris CHF (congestive heart failure) Chronic ulcer of ankle CKD (chronic kidney disease), stage V started hemodialysis 07/29/2020 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 coli infection Hypertension Multilevel degenerative disc disease has known hx of multilevel DJD, s/p spinal stimulator Peripheral neuropathy Polyneuropathy in other diseases classified elsewhere Seizure disorder Spinal cord stimulator status Spinal stenosis Type 2 diabetes mellitus Surgical History S/P CABG x 3 S/P dialysis catheter insertion (07/29/20) Giurgius S/P insertion of spinal cord stimulator Status post below knee amputation of right lower extremity Family History Other Hyperlipidemia Hypertension Denies family history of Psychiatric illness Lung disease Social History Smoking and tobacco status: former smoker Alcohol intake: former Lives independently: No (Brother is his power of bankruptcy attorney, recently has had to be involved in more decisions) Housing: [facility] Vitals/I&O/Wt Last Vital Signs Temp 102.5 F H 08/23/20 08:32 Pulse 85 08/23/20 14:33 Resp 26 H 08/23/20 14:15 BP 98/54 08/23/20 14:15 Pulse Ox 97 08/23/20 14:33 08/23/20 08/23/20 08/23/20 06:59 14:59 22:59 Intake Total 550 / 550 Balance 550 / 550 Weight last 48 hrs Weight 81.647 kg Physical Exam Narrative: EXAM NARRATIVE: arousable, not answering questions Neck/C-Spine: OTHER: tunneled right IJ HD catheter Extremity: GENERAL: No edema OTHER: right BKA Data Labs: Other Labs: calcium 8.8, albumin 3.4, Mg 1.4 7. LFTs normal Micro: Micro: Microbiology 08/23/20 08:50 Blood Culture - Pr eliminary Blood SPECIMEN [facility] 08/23/20 08:45 Blood Culture - Pr eliminary Blood [facility] Imaging^: CT Abd/Pel: Radiologist's impression: With IV contrast: 1. Cholelithiasis within a mildly distended gallbladder. Similar to prior studies. No adjacent wall thickening or inflammation. 2. No bile duct dilatation. 3. Moderate diffuse rectal wall thickening from prostatitis most likely. 4. Constipation. 5. Extensive atherosclerosis aorta. 6. Mild soft tissue thickening over the chest wall anteriorly. May related to extensive gynecomastia or edema from chest wall trauma. CXR: Radiologist's impression: Left basilar atelectasis A&P Additional A&P Information 1. ESRD 2. Likely sepsis 3. Anemia 4. Poor nutrition Recommend: HD today: 3H, 1000 ml UF, panculture, broad spectrum antibiotics pending culture results Consult Attestations Medical Necessity Statement: critically ill Time Spent in Patient Care: 16 - 35 minutes Coding Level of Care Code Acute Recreation Adviser for Brandy Sanchez
[2020-08-23 15:32] LABS: Lactic Acid level (Lactate) 1.7 mmol/L (0.5-2.2)
[2020-08-23 15:35] LABS: Troponin 5 6HR Delta 1.1 ng/L (0-12)
[2020-08-23 15:44] LABS: Troponin 5 6HR 278.1 ng/L (0-15)
[2020-08-23 19:26] LABS: Glucose Point of Care 178 mg/dL (70-110)
[2020-08-23] MEDS: pantoprazole DR 40 mg Tablet PO (19:27)
[2020-08-23 20:07] LABS: Hepatitis B Surface Antigen Non-Reactive (Nonreactive); Hepatitis C Virus Antibody Non-Reactive (Nonreactive)
[2020-08-23 21:37] LABS: Glucose Point of Care 185 mg/dL (70-110)
[2020-08-23] MEDS: atorvastatin 40 mg Tablet PO (21:42)
[2020-08-23] MEDS: levETIRAcetam 500 mg Tablet PO (21:42)
[2020-08-23] MEDS: LORazepam 2 mg/mL INJ 1 mL 0.5 MG IVP (23:56)
[2020-08-24] VITALS (37 sets, daily range): BP systolic 82–133; BP diastolic 41–71; PULSE 61–119; RESP 12–36; TEMP 36.7–40.2; O2SAT 91–100
[2020-08-24] MEDS: ondansetron 2 mg/ML SDV 2 mL 4 MG IVP (00:29)
--- NOTE | 2020-08-24 01:22 | PC.NURSE ---
New orders; Pt HR and RR increased suddenly after dialysis was completed. He had c/o anxiety, and was unable to lower RR when asked by RN. RN then notified MD division controller, and received orders for IVP Ativan. RN went into room to administer meds, and found pt with n/v and covered in emesis. IVP Zofran administered, and patient cleaned up/bathed/bed change. Pt now resting. No verbalized needs at this time.
[2020-08-24] MEDS: heparin 5,000 unit/mL INJ 1 mL 5000 UNIT SUBCUT ×2 (02:29→14:43)
[2020-08-24] MEDS: acetaminophen 325 mg Tablet 650 MG PO (02:45)
--- NOTE | 2020-08-24 03:04 | PC.NURSE ---
Nonadmin/waste PO tylenol; Patient unable to swallow PO PRN Tylenol. MD Danis case monitor notified of 104.3 Auxiliary temp, and reminded of 2/3 positive blood cultures. New orders received for rectal Tylenol and IV Zyvox. Cool wash cloths applied to groin/other points of body.
[2020-08-24] MEDS: acetaminophen 650 mg Supp PR (03:14)
[2020-08-24] MEDS: linezolid premix 600 MG/300 ML PREMIX 300 MG IV ×2 (03:30→15:51)
[2020-08-24 05:17] LABS: Basophils # 0.1 10^3/uL (0.0-0.1); Basophils % 0.3 %; Eosinophils # 0.1 10^3/uL (0.0-0.8); Eosinophils % 0.4 %; Hematocrit 29.3 % (42.0-52.0); Hemoglobin 9.2 g/dL (11.7-16.6); Lymphocytes # 0.4 10^3/uL (0.8-4.8); Lymphocytes % 2.5 %; Mean Corpuscular HGB Conc 31.4 g/dL (30.0-36.0); Mean Corpuscular Hemoglobin 30.2 pg (28.0-34.0); Mean Corpuscular Volume 96.1 fL (80-94); Mean Platelet Volume 10.2 fL (7.4-10.4); Monocytes # 1.3 10^3/uL (0.2-0.9); Monocytes % 7.5 %; Neutrophils # 15.31 10^3/uL (1.8-7.7); Neutrophils % 88.4 %; Nucleated Red Blood Cells % 0 %; Platelet Count 146 10^3/cmm (130-400); Red Blood Count 3.05 10^6/uL (4.1-5.3); Red Cell Distribution Width 17.6 % (12.1-15.1); White Blood Count 17.3 10^3/uL (4.0-10.0)
[2020-08-24 05:47] LABS: Alanine Aminotransferase 15 U/L (0-41); Albumin Level 2.9 g/dL (3.5-5.2); Alkaline Phosphatase 61 IU/L (40-130); Anion Gap 14.2 (5-19); Aspartate Amino Transferase 21 U/L (0-40); Blood Urea Nitrogen 25 mg/dL (8-23); Calcium 8.4 mg/dL (8.5-10.5); Carbon Dioxide 27 mmol/L (22-29); Chloride 94 mmol/L (98-107); Glucose 182 mg/dL (65-115); Magnesium 1.6 mg/dL (1.7-2.3); Osmolality Calculated 283 mOsm/kg (285-295); Potassium 3.2 mmol/L (3.5-5.1); Sodium 132 mmol/L (136-145); Total Bilirubin 0.3 mg/dL (0.15-1.2); Total Protein 5.9 g/dL (6.6-8.7)
--- NOTE | 2020-08-24 06:40 | PC.NURSE ---
PO meds held based on AMS and inability to swallow. MD notified and approved hold of PO meds at this time.
--- NOTE | 2020-08-24 06:41 | PC.NURSE ---
Shift Summary; Patient has had multiple n/v episodes throughout shift. 3 large bowel movements with bed changes that followed with each BM. Patient became alert for a few hours at beginning of shift, but quickly returned to a AMS state after Hemodiaylsis was completed. Patient became very anxious with an increase in HR and RR, stating he was very anxious and could not breathe. RN obtained anti anxiety med and administered in efforts to decrease noted anxiety. Patient also spiked high temp, and was unable to safely swallow or follow directions in order to take PO meds. Rectal Tylenol obtained and administered. Fever slowly trending down. Latest fever reports at 101.6 150 u/o. Dialysis nurse reports that 1L was goal, and taken off of pt. Report given to oncoming shift nurse. No needs verbalized at this time.
[2020-08-24 07:29] LABS: Glucose Point of Care 151 mg/dL (70-110)
--- NOTE | 2020-08-24 07:33 | USCV_ITS ---
Moy Fernandez Age: 70 Gender: M : 1950 Exam Date: 08/24/2020 13:51 Ordering Phys: Matias Young MD Technologist: [place] [facility] [place]: SOB BP: 111 / 46 HR: 75 Rhythm: Sinus Technical Quality: Fair MEASUREMENTS (Male / Female) Normal Values 2D ECHO LV Diastolic Diameter PLAX 4.7 cm 4.2 - 5.9 / 3.9 - 5.3 cm LV Systolic Diameter PLAX 3.7 cm IVS Diastolic Thickness 1.0 cm 0.6 - 1.0 / 0.6 - 0.9 cm IVS Systolic Thickness 1.5 cm LVPW Diastolic Thickness 1.3 cm 0.6 - 1.0 / 0.6 - 0.9 cm LVPW Systolic Thickness 1.5 cm LVOT Diameter 2.0 cm LV Ejection Fraction 2D Teich 45.0 % LV Ejection Fraction MOD 2C 43.6 % LV Ejection Fraction 2C AL 42.7 % LA Diameter 4.6 cm LA Width 3.4 cm LA Height 6.4 cm RA Width 4.3 cm RA Height 5.9 cm Aorta at Sinotubular Diameter 2.9 cm M-MODE LV Diastolic Diameter MM 5.8 cm 4.2 - 5.9 / 3.9 - 5.3 cm LV Systolic Diameter MM 4.5 cm LV Ejection Fraction MM Teich 46.1 % IVS Diastolic Thickness MM 1.1 cm 0.6 - 1.0 / 0.6 - 0.9 cm IVS Systolic Thickness MM 1.9 cm LVPW Diastolic Thickness MM 1.4 cm 0.6 - 1.0 / 0.6 - 0.9 cm LVPW Systolic Thickness MM 2.1 cm RV Diastolic Diameter MM 2.0 cm Aortic Annulus Diameter 3.7 cm LA Ao Ratio MM 1.4 MV E Point Septal Separation 1.2 cm DOPPLER AV Peak Velocity 126.0 cm/s LVOT Peak Velocity 86.0 cm/s AV Area Cont Eq vti 1.7 cm squared AV Area Cont Eq pk 2.2 cm squared MV Area PHT 5.0 cm squared Mitral E to A Ratio 0.8 MV E' Velocity 40.5 cm/s Mitral E to MV E' Ratio 10.1 Mitral E to LV E' Lateral Ratio 8.9 Mitral E to LV E' Septal Ratio 11.9 TR Peak Velocity 115.7 cm/s TR Peak Gradient 5.4 mmHg TV Peak E Velocity 79.0 cm/s Right Atrial Pressure 3.0 mmHg Pulmonary Artery Systolic Pressu 8.4 mmHg PV Peak Velocity 71.0 cm/s FINDINGS Left Ventricle Normal left ventricular cavity size. Normal left ventricular wall thickness. Moderately decreased left ventricular systolic function. Left ventricular ejection fraction is estimated at 30- 35 %. Moderate septal hypokinesis. Grade I diastolic dysfunction (abnormal relaxation filling pattern), normal to mildly elevated filling pressures. Right Ventricle Normal right ventricular size and systolic function. Right ventricular systolic pressure 8.4 mmHg. Right Atrium Normal right atrial size. Left Atrium Mildly increased left atrial size. Mitral Valve Structurally normal mitral valve. No mitral valve stenosis. No mitral valve regurgitation. Aortic Valve Structurally normal trileaflet aortic valve. No aortic valve stenosis. No aortic valve regurgitation. Tricuspid Valve Structurally normal tricuspid valve. No tricuspid valve stenosis. Trace tricuspid valve regurgitation. Pulmonic Valve Structurally normal pulmonic valve. No pulmonary valve stenosis. Trace pulmonary valve regurgitation. Pericardium No pericardial effusion. Aorta Normal size aortic root and proximal ascending aorta. CONCLUSIONS 1. Normal left ventricular cavity size and wall thickness. Moderately decreased left ventricular systolic function. Left ventricular ejection fraction is estimated at 30-35 %. Moderate septal hypokinesis. Grade I diastolic dysfunction (abnormal relaxation filling pattern), normal to mildly elevated filling pressures. 2. Normal right ventricular size and systolic function. 3. No significant valvular normality. 4. No significant change when compared to echocardiogram done a month ago. Lashay Knapp MD (Electronically Signed) Final Date: 24 Aug 2020 18:35 S
--- NOTE | 2020-08-24 08:58 | PM.PN ---
Subjective Subjective: Interval history: Moy opens his eyes when I come in the room. He will follow some instructions. He says a few words. From my understanding he was talking with nurses better last night, and then became more lethargic. He has not complained of any particular discomfort, although he will grimace when his abdomen is felt. He did have a bowel movement yesterday. Medications: Reviewed: Yes Vitals/I&O/Wt Last Vital Signs Temp 100.0 F H 08/24/20 07:00 Pulse 75 08/24/20 08:00 Resp 26 H 08/24/20 08:00 BP 99/49 08/24/20 08:00 Pulse Ox 99 08/24/20 08:00 08/23/20 08/24/20 08/24/20 22:59 06:59 14:59 Intake Total 300 / 850 400 / 1250 105 / 105 Output Total 200 / 200 150 / 350 Balance 100 / 650 250 / 900 105 / 105 Weight last 48 hrs Weight 81.572 kg Weight 81.647 kg Physical Exam Narrative: EXAM NARRATIVE: General exam no apparent distress HEENT: Pupils equally round. Oropharynx clear. Neck is supple. No tenderness to palpation. Negative Kernig's and Brudzinski's. Cardiovascular regular rate and rhythm without murmur, no S3 or S4 Lungs diminished breath sounds at the bases but clear Abdomen is soft. Some distention is noted. No obvious tenderness. with Denise Extremities right lower extremity amputation, below the knee. Right no cyanosis or clubbing. Neurologic: No obvious focal deficits. Slow in his responses. Skin no rash Data : 08/24/20 04:47 08/24/20 04:47 Micro: Microbiology 08/23/20 08:50 Blood Culture - Preliminary Blood 08/23/20 08:45 Blood Culture - Preliminary Blood A&P Assessment and plan (1) Sepsis: Has severe sepsis, not septic shock Presented with fever, oxygen requirement, pneumonia, tachycardia, borderline hypotension, significant leukocytosis IV antibiotics consisting of Primaxin, linezolid. Note he has a history of ESBL UTI. 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 Blood and urine cultures are sent. Blood culture is already growing gram-positive organisms 3 out of 3 bottles Secondary to positive blood cultures, dialysis catheter will be removed, and tip cultured. Surgery consulted. Secondary to changing him into an n.p.o. status. Will initiate low-dose IV fluids at 30 cc an hour. Repeat blood cultures today, and tomorrow. Status: Acute (2) Acute encephalopathy: Secondary to sepsis. Monitor closely for improvement No exam findings currently to suggest meningitis Status: Acute (3) Pneumonia: IV antibiotics of linezolid and Primaxin MRSA PCR pending Sputum culture pending Status: Acute (4) Elevated troponin: Likely type II Status: Acute (5) Hypomagnesemia: Supplement cautiously secondary to renal failure. 1 g IV ordered for today August 24. He received 1 g yesterday. Status: Acute (6) CKD (chronic kidney disease), stage V: Appreciate nephrology consultation in regards to dialysis. Briefly discussed case with them today. Try to avoid replacing dialysis catheter for at least the next 48 hours. 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 Change to IV as n.p.o. Status: Chronic (9) Combined systolic and diastolic congestive heart failure: Continue home medications with the exception of metoprolol, Norvasc, Imdur secondary to borderline hypotension. Held currently secondary to lower blood pressures. Repeat echocardiogram secondary to bacteremia Status: Chronic Qualifiers: Heart failure chronicity: chronic Qualified Code(s): I50.42 - Chronic combined systolic (congestive) and diastolic (congestive) heart failure Additional A&P Information Allow natural per nursing facility records Heparin will suffice for DVT prophylaxis Attestations Medical Necessity Statement*: Needs continued hospitalization for IV antibiotics secondary to bacteremia, sepsis Critical Care Time: The high probability of a clinically significant, sudden or life threatening deterioration of the patient's [infectious, renal, neurologic] system(s) required my full and direct attention, intervention and personal management. The critical care time is as shown. This time is in addition to time spent performing any reported procedures but includes the following: [x] Data and vital sign review and interpretation [x] Patient assessment, examination and intervention [x] Documentation [x] Medication orders and management Critical Care Time (min): 31 Coding Level of Care Code Acute Telecom Billing Analyst for Chg Fwd Diagnoses Sepsis A41.9 Acute encephalopathy G93.40 Pneumonia J18.9 Elevated troponin R77.8 Hypomagnesemia E83.42 CKD (chronic kidney disease), stage V N18.5 Type 2 diabetes mellitus E11.22; N18.32 Diabetes mellitus terminal worker insulin use: without terminal worker use Diabetes mellitus complication status: with kidney complications Diabetes mellitus complication detail: with chronic kidney disease Chronic kidney disease stage: stage 3 (moderate) Chronic kidney disease stage 3 subtype: stage 3b (GFR 30-44) Seizure disorder G40.909 Combined systolic and diastolic congestive heart failure I50.42 Heart failure chronicity: chronic
[2020-08-24] MEDS: sodium chloride 0.9% 1,000 ML 30 ML IV (09:49)
[2020-08-24 11:27] LABS: Glucose Point of Care 131 mg/dL (70-110)
--- NOTE | 2020-08-24 12:20 | PC.CHAP ---
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 cardiopulmonary technician visit [] Patient/Family/Request visit [] Outpatient visit [] Follow-up visit [] Physician referral [] Code/Alert [x] Routine visit [] Staff referral [] Actively dying [x] Patient sleeping [] Family support [] [] Out of room [] Palliative care [] [] Receiving care in room [] Pre-surgical visit [] Trauma [] Long length of stay [] ICU visit [] Other: Relational/Emotional Strength [] Patient feels connected with others/family/visitors/staff [] Distress [] Loneliness/isolation [] Abandonment Spirituality of Patient [] Person of Ghislaine [] Attends Hinduism of their Ghislaine [] Believes in Prayer [] Reads Bible or Mosque materials [] There are Spiritual issues to be addressed Cell Changer Interventions [] Prayer [] Active listening [] Non-anxious presence [] Spiritual/emotional support [] Crisis/trauma care [] Spiritual counseling [] Bereavement support [] Provided bereavement packet [] Provided Bible/devotional materials [] Provided toy/stuffed animal, coloring book to patient or family member [] Provided Communion [] Anointing/Dell [] Salvation [] Completed spiritual assessment [] Other: Impact on Illness or Injury [] Angry [] Fearful [] Anxious [] Often cries [] Exhaustion [] Unable to work [] Unable to attend oriental orthodox [] Unable to walk/stand [] Unable to read [] Unable to drive [] Unable to eat/drink [] Unable to sleep [] Unable to be with family [] Patient intubated [] Other: Summary Time spent with patient
--- NOTE | 2020-08-24 12:44 | P.PCN_ITS ---
Procedure/Consent Procedure Narrative: Preoperative diagnosis: Sepsis/febrile Postop diagnosis: Same Procedure: Removal of tunneled right IJ hemodialysis catheter Surgeon: Dr. Maurer Anesthesia: Local anesthesia Description of the procedure: The patient's right chest around the catheter entry site was prepped and draped in a sterile manner, sutures were cut and catheter was dissected free surgically from surrounding subcutaneous tissue up to the cuff and removed intact without difficulty. Pressure dressings were a pplied. Patient tolerated the procedure well. The catheter tip was sent for cultures.
--- NOTE | 2020-08-24 12:49 | PM.CONSULT ---
Providers/Reason For Consult Consulting Physican/Specialty*: General Surgery Dr. Maurer Reason for Consult*: Hemodialysis catheter removal Attending Physician: Matias Young MD Primary Care Provider: Sajan Jack Jr, MD History of Present Illness History of Present Illness Moy Fernandez is a 70 year old male who had a right IJ tunneled hemodialysis catheter placed by my partner on July 29, 2020. Patient is admitted to the hospital for altered mental status and he was febrile up to 105 yesterday. The catheter itself is functioning well, there is no surrounding erythema or drainage noted and I was consulted for removal of the tunneled catheter for sepsis work-up. Review of Systems General: Reports: ROS unobtainable due to mental status Meds/Allergies Home Medications and Allergies Home Medications Medication Instructions Recorded Confirmed Last Taken Type acetaminophen 650 mg PO Q4H PRN 02/14/20 08/23/20 08/15/20 History [place] Plus Cold+Flu 1 packet PO Q4H PRN 07/23/20 08/23/20 08/21/20 History ascorbic acid (vitamin C) [Vitamin 500 mg PO DAILY@0800 07/23/20 08/23/20 08/22/20 History C] hydrocodone-acetaminophen 1 tab PO BID PRN 07/23/20 08/23/20 08/19/20 History levetiracetam [Keppra] 500 mg PO BID@0700,2100 07/23/20 08/23/20 08/22/20 History pantoprazole 40 mg PO BID@06,18 07/23/20 08/23/20 08/23/20 History amlodipine 5 mg PO DAILY 30 Days #30 tab 08/02/20 08/23/20 08/22/20 Rx aspirin 81 mg PO DAILY 30 Days #30 tab 08/02/20 08/23/20 08/22/20 Rx atorvastatin 40 mg PO BEDTIME 30 Days #30 tab 08/02/20 08/23/20 08/22/20 Rx clopidogrel 75 mg PO DAILY 30 Days #30 tab 08/02/20 08/23/20 08/22/20 Rx isosorbide mononitrate 30 mg PO DAILY 30 Days #30 tab 08/02/20 08/23/20 08/22/20 Rx metoprolol tartrate 25 mg PO Q12H 30 Days #60 tab 08/02/20 08/23/20 08/22/20 Rx sevelamer carbonate 800 mg PO TIDWM 30 Days #90 tab 08/02/20 08/23/20 08/22/20 Rx bisacodyl 10 mg ME DAILY PRN 08/23/20 08/23/20 Unknown History nystatin 1 unit PO DAILY 08/23/20 08/23/20 08/22/20 History Allergies Allergy/AdvReac Type Severity Reaction Status Date / Time No Known Allergies Allergy Verified 08/17/20 15:25 Current Medications Current Medications Generic Name Dose Route Start Last Admin Trade Name Freq PRN Reason Stop Dose Admin Acetaminophen 650 mg 08/23/20 14:21 08/24/20 02:45 Acetaminophen 325 Mg Tablet PO 650 mg Q6H PRN Administration MILD PAIN Acetaminophen 650 mg 08/24/20 02:58 08/24/20 03:14 Acetaminophen 650 Mg Supp ME 650 mg Q4H PRN Administration MILD PAIN OR INCREASE TEMP Aspirin 81 mg 08/24/20 09:00 08/24/20 08:53 Aspirin 81 Mg Ec Tablet PO Not Given DAILY YANELI Atorvastatin Calcium 40 mg 08/23/20 21:00 08/23/20 21:42 Atorvastatin 40 Mg Tablet PO 40 mg BEDTIME YANELI Administration Clopidogrel Bisulfate 75 mg 08/24/20 09:00 08/24/20 08:53 Clopidogrel 75 Mg Tablet PO Not Given DAILY YANELI Heparin Sodium (Beef Lung) 5,000 unit 08/23/20 15:00 08/24/20 02:29 Heparin 5,000 Unit/Ml Inj 1 Ml SUBCUT 5,000 unit Q12H YANELI Administration Imipenem/Cilastatin Sodium 250 100 mls @ 200 mls/hr 08/23/20 14:30 08/24/20 03:01 mg/ Sodium Chloride IV Infused Q12H YANELI Infusion Protocol Linezolid 600 mg in 300 mls @ 300 mls/hr 08/24/20 04:00 08/24/20 04:30 Zyvox Premix IV Infused Q12H YANELI Infusion Protocol Levetiracetam 500 mg/ Sodium 105 mls @ 420 mls/hr 08/24/20 08:00 08/24/20 08:26 Chloride IV Infused Q12H YANELI Infusion Sodium Chloride 1,000 mls @ 30 mls/hr 08/24/20 09:15 08/24/20 09:49 Sodium Chloride 0.9% IV 30 mls/hr .Q24H YANELI Administration Insulin Aspart 0 unit 08/23/20 18:00 08/24/20 11:45 Insulin Aspart 100 Unit/1 Ml SUBCUT Not Given WM&BEDTIME [facility] Protocol Ondansetron HCl 4 mg 08/23/20 14:21 08/24/20 00:29 Ondansetron 2 Mg/Ml Sdv 2 Ml IVP 4 mg Q6H PRN Administration NAUSEA AND VOMITING Pantoprazole Sodium 40 mg 08/23/20 18:00 08/24/20 06:[address] 40 Mg Tablet PO Not Given BID@ YANELI PFSH Acute PFSH: Medical History Anemia in CKD (chronic kidney disease) Atherosclerotic heart disease of [place] coronary artery without angina pectoris CHF (congestive heart failure) Chronic ulcer of ankle CKD (chronic kidney disease), stage V started hemodialysis 07/29/2020 Combined systolic and diastolic congestive heart failure Echo 08/04 demonstrates EF 35 to 40% COVID-19 (~01/2020) Diabetes mellitus History of ESBL E. coli infection Hypertension Multilevel degenerative disc disease has known hx of multilevel DJD, s/p spinal stimulator Peripheral neuropathy Polyneuropathy in other diseases classified elsewhere Seizure disorder Spinal cord stimulator status Spinal stenosis Type 2 diabetes mellitus Surgical History S/P CABG x 3 S/P dialysis catheter insertion (07/29/20) Giurgius S/P insertion of spinal cord stimulator Status post below knee amputation of right lower extremity Family History Other Hyperlipidemia Hypertension Denies family history of Psychiatric illness Lung disease Social History Smoking and tobacco status: former smoker Alcohol intake: former Lives independently: No (Brother is his power of corrosion control specialist, recently has had to be involved in more decisions) Housing: Residential Vitals/I&O/Wt Last Vital Signs Temp 98.9 F 08/24/20 11:34 Pulse 70 08/24/20 10:00 Resp 25 H 08/24/20 10:00 BP 101/49 08/24/20 10:00 Pulse Ox 99 08/24/20 10:00 08/23/20 08/24/20 08/24/20 22:59 06:59 14:59 Intake Total 300 / 1250 400 / 1250 157 / 157 Output Total 200 / 350 150 / 350 Balance 100 / 900 250 / 900 157 / 157 Weight last 48 hrs Weight 179 lb 13.367 oz Weight 180 lb Physical Exam Narrative: EXAM NARRATIVE: HEENT: Normocephalic, right IJ tunneled hemodialysis catheter, no evidence of localized infection Eye: Sclera /conjunctiva normal Abdomen: Soft to palpation Neurological: Awake Skin: Intact, right BKA Data Micro: Micro: Microbiology 08/24/20 09:06 Blood Culture - Pr eliminary Blood SPECIMEN [facility] 08/24/20 08:55 Blood Culture - Pr eliminary Blood SPECIMEN [facility] 08/23/20 08:50 Blood Culture - Pr eliminary Blood 08/23/20 08:45 Blood Culture - Pr eliminary Blood A&P Assessment and plan (1) Sepsis: 70-year-old male with ESRD with encephalopathy, febrile up to 105 Plan for removal of right IJ tunneled hemodialysis catheter under local anesthesia at the bedside Procedure, risks, benefits and alternatives have been discussed with the patient who wishes to proceed with surgery. Status: Acute Coding Level of Care Code Acute Fitting Supervisor for Brandy Sanchez Diagnoses Sepsis A41.9
--- NOTE | 2020-08-24 13:42 | P.PN_ITS ---
Subjective Subjective: Interval history: He remains very confused today. He is in no obvious distress. He has been febrile throughout the night. Gram-positive cocci now growing in his blood. He did receive dialysis uneventfully yesterday. Breathing comfortably on nasal cannula. He is still making some urine. Vitals/I&O/Wt Last Vital Signs Temp 98.9 F 08/24/20 11:34 Pulse 70 08/24/20 10:00 Resp 25 H 08/24/20 10:00 BP 101/49 08/24/20 10:00 Pulse Ox 99 08/24/20 10:00 08/23/20 08/24/20 08/24/20 22:59 06:59 14:59 Intake Total 300 / 850 400 / 1250 277 / 277 Output Total 200 / 200 150 / 350 Balance 100 / 650 250 / 900 277 / 277 Weight last 48 hrs Weight 81.572 kg Weight 81.647 kg Physical Exam Narrative: EXAM NARRATIVE: Constitutional: drowsy HEENT: Wet mucosa, no jvp, non icteric Lungs: Bilaterally clear without discernible wheeze, rales in all lung zones CVS: S1 S2, no murmurs Abdo: Soft, BS ok Ext 4: Minimal edema, peripheral perfusion with no cyanosis Neurological: Grossly non-focal Data : 08/24/20 04:47 08/24/20 04:47 Micro: Microbiology 08/24/20 09:06 Blood Culture - Preliminary Blood SPECIMEN COLLECTED 08/24/20 08:55 Blood Culture - Preliminary Blood SPECIMEN COLLECTED 08/23/20 08:50 Blood Culture - Preliminary Blood 08/23/20 08:45 Blood Culture - Preliminary Blood A&P Additional A&P Information 1. ESRD No acute need for a dialysis today, hopefully we can give him a break for a few days prior to replacing any form of access. Low potassium diet and do not replace low potassium in the setting. Dose medication for GFR less than 15 on dialysis 2. Fever and sepsis Gram-positive cocci growing in multiple cultures. Consistent with line infection Currently on Zyvox and Primaxin Final isolate is pending Line to be removed today. Will need IE rule out We will need a line holiday for least 48 hours prior to temporary line. 3. Chemistry Magnesium replaced, will avoid additional potassium at this time. Otherwise Minor aberration we will watching closely. 4. Hemodynamics blood pressure remains soft. Continue to monitor in the ICU. Dennis Carreon MD Nephrology [phone] Patient seen and examined via telemedicine, with the assistance of the bedside RN > 25 min spent in evaluation and mgmt of patient Attestations Medical Necessity Statement*: eval for ESRd Coding Level of Care Code Acute Neurodiagnostic Technologist for Joelg Daniel
[2020-08-24 17:37] LABS: Glucose Point of Care 147 mg/dL (70-110)
[2020-08-24] MEDS: pantoprazole DR 40 mg Tablet PO (17:37)
[2020-08-24] MEDS: HYDROcodone-acetaminophen 5-325 mg Tablet 1 TAB PO (21:50)
[2020-08-24] MEDS: atorvastatin 40 mg Tablet PO (21:50)
[2020-08-24 22:11] LABS: Glucose Point of Care 135 mg/dL (70-110)
[2020-08-25] VITALS (23 sets, daily range): BP systolic 92–142; BP diastolic 37–62; PULSE 53–106; RESP 12–20; TEMP 36.5–37; O2SAT 93–99; BMI 25.8
[2020-08-25] MEDS: acetaminophen 325 mg Tablet 650 MG PO (00:26)
[2020-08-25] MEDS: heparin 5,000 unit/mL INJ 1 mL 5000 UNIT SUBCUT ×2 (04:21→14:07)
[2020-08-25] MEDS: linezolid premix 600 MG/300 ML PREMIX 300 MG IV ×2 (04:36→15:39)
[2020-08-25 05:13] LABS: Glucose Point of Care 103 mg/dL (70-110)
[2020-08-25] MEDS: pantoprazole DR 40 mg Tablet PO ×2 (05:15→18:03)
[2020-08-25 07:26] LABS: Basophils % 0.4 %; Eosinophils % 0.3 %; Hemoglobin 8.1 g/dL (11.7-16.6); Lymphocytes # 0.7 10^3/uL (0.8-4.8); Lymphocytes % 9.1 %; Mean Corpuscular HGB Conc 31.2 g/dL (30.0-36.0); Mean Corpuscular Volume 96.3 fL (80-94); Monocytes # 0.9 10^3/uL (0.2-0.9); Monocytes % 11.8 %; Neutrophils # 5.67 10^3/uL (1.8-7.7); Nucleated Red Blood Cells % 0 %; Platelet Count 110 10^3/cmm (130-400); Red Cell Distribution Width 18.1 % (12.1-15.1); White Blood Count 7.3 10^3/uL (4.0-10.0)
[2020-08-25 07:39] LABS: Glucose Point of Care 106 mg/dL (70-110)
[2020-08-25 08:01] LABS: Alanine Aminotransferase 16 U/L (0-41); Albumin Level 2.9 g/dL (3.5-5.2); Alkaline Phosphatase 56 IU/L (40-130); Anion Gap 14.4 (5-19); Aspartate Amino Transferase 33 U/L (0-40); Blood Urea Nitrogen 37 mg/dL (8-23); Calcium 8.3 mg/dL (8.5-10.5); Carbon Dioxide 27 mmol/L (22-29); Chloride 95 mmol/L (98-107); Globulin 2.7 g/dL (1.3-4.6); Glucose 91 mg/dL (65-115); Osmolality Calculated 284 mOsm/kg (285-295); Potassium 3.4 mmol/L (3.5-5.1); Sodium 133 mmol/L (136-145); Total Bilirubin 0.2 mg/dL (0.15-1.2); Total Protein 5.6 g/dL (6.6-8.7)
[2020-08-25] MEDS: clopidogrel 75 mg Tablet PO (08:41)
[2020-08-25] MEDS: aspirin 81 mg EC Tablet PO (08:41)
[2020-08-25] MEDS: HYDROcodone-acetaminophen 5-325 mg Tablet 1 TAB PO (11:33)
[2020-08-25 11:53] LABS: Glucose Point of Care 101 mg/dL (70-110)
--- NOTE | 2020-08-25 12:56 | PM.PN ---
Subjective Subjective: Interval history: Moy reports he is doing okay today. Denies any discomfort. Medications: Reviewed: Yes Vitals/I&O/Wt Last Vital Signs Temp 97.7 F 08/25/20 04:00 Pulse 65 08/25/20 11:39 Resp 14 08/25/20 06:00 BP 111/52 08/25/20 06:00 Pulse Ox 94 08/25/20 11:39 08/24/20 08/25/20 08/25/20 22:59 06:59 14:59 Intake Total 675 / 952 400 / 1352 105 / 105 Output Total 100 / 100 Balance 675 / 952 300 / 1252 105 / 105 Weight last 48 hrs Weight 84 kg Weight 81.572 kg Physical Exam Narrative: EXAM NARRATIVE: General exam no apparent distress, alert and oriented. We discussed his CODE STATUS and he wishes to be full code. Cardiovascular regular rate and rhythm without murmur, no S3 or S4 Lungs diminished breath sounds at the bases but clear Abdomen is soft. Positive bowel sounds with Denise Extremities right lower extremity amputation, below the knee. Right no cyanosis or clubbing. Data : 08/25/20 05:32 08/25/20 05:32 Micro: Microbiology 08/23/20 08:50 Blood Culture - Preliminary Blood Staphylococcus aureus 08/23/20 08:45 Blood Culture - Preliminary Blood Staphylococcus aureus 08/24/20 11:30 Catheter Tip Culture - Preliminary Other Source 08/24/20 09:06 Blood Culture - Preliminary Blood NEGATIVE TO DATE 08/24/20 08:55 Blood Culture - Preliminary Blood NEGATIVE TO DATE 08/23/20 10:32 Urine Culture - Final Urine Catheterized 08/25/20 05:32 Blood Culture - Preliminary Blood SPECIMEN COLLECTED 08/25/20 05:32 Blood Culture - Preliminary Blood SPECIMEN COLLECTED 08/23/20 18:00 MRSA Culture - Final Nose A&P Assessment and plan (1) Sepsis: Has severe sepsis, not septic shock Presented with fever, oxygen requirement, pneumonia, tachycardia, borderline hypotension, significant leukocytosis IV antibiotics consisting of Primaxin, linezolid. Note he has a history of ESBL UTI. 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 Blood cultures currently growing staph aureus, awaiting identification and sensitivities Dialysis catheter removed August 24 secondary to positive cultures. Tip negative to date but note that he received IV antibiotics prior to this being removed. Repeat blood cultures negative today Status: Acute (2) Acute encephalopathy: Secondary to sepsis. Monitor closely for improvement No exam findings currently to suggest meningitis Status: Acute (3) Pneumonia: IV antibiotics of linezolid and Primaxin MRSA PCR positive Status: Acute (4) Elevated troponin: Likely type II Echocardiogram demonstrated an EF of 30 to 35%, moderate septal hypokinesis, no significant change from previous. No obvious vegetations. Status: Acute (5) Hypomagnesemia: Now normal Status: Acute (6) CKD (chronic kidney disease), stage V: Appreciate nephrology consultation in regards to dialysis. Briefly discussed case with them today. Try to avoid replacing dialysis catheter for at least the next 48 hours. Status: Acute (7) Type 2 diabetes mellitus: Sliding scale insulin Status: Chronic (8) Seizure disorder: Continue Keppra. May transition to p.o. Status: Chronic (9) Combined systolic and diastolic congestive heart failure: Continue home medications with the exception of metoprolol, Norvasc, Imdur secondary to borderline hypotension. Held currently secondary to lower blood pressures. See notation under elevated troponin regarding echocardiogram this hospitalization . Status: Chronic Qualifiers: Heart failure chronicity: chronic Qualified Code(s): I50.42 - Chronic combined systolic (congestive) and diastolic (congestive) heart failure Additional A&P Information Changed to full code Heparin will suffice for DVT prophylaxis Attestations Medical Necessity Statement*: Needs continued IV antibiotics secondary to sepsis. Coding Level of Care Code Acute Brake Operator Heavy Duty for [facility] Diagnoses Sepsis A41.9 Acute encephalopathy G93.40 Pneumonia J18.9 Elevated troponin R77.8 Hypomagnesemia E83.42 CKD (chronic kidney disease), stage V N18.5 Type 2 diabetes mellitus E11.9 Seizure disorder G40.909 Combined systolic and diastolic congestive heart failure I50.42 Heart failure chronicity: chronic
--- NOTE | 2020-08-25 13:33 | PM.PN ---
Subjective Subjective: Interval history: No new issue today, he feels well, drowsy, but no uremic Sx, no hypervolemic Sx. Medications: Reviewed: Yes Vitals/I&O/Wt Last Vital Signs Temp 98.6 F 08/25/20 11:00 Pulse 64 08/25/20 13:00 Resp 16 08/25/20 13:00 BP 108/48 08/25/20 13:00 Pulse Ox 93 08/25/20 13:00 08/24/20 08/25/20 08/25/20 22:59 06:59 14:59 Intake Total 675 / 952 400 / 1352 305 / 305 Output Total 100 / 100 Balance 675 / 952 300 / 1252 305 / 305 Weight last 48 hrs Weight 84 kg Weight 81.572 kg Physical Exam Narrative: EXAM NARRATIVE: Constitutional: drowsy HEENT: Wet mucosa, no jvp, non icteric Lungs: Bilaterally clear without discernible wheeze, rales in all lung zones CVS: S1 S2, no murmurs Abdo: Soft, BS ok Ext 4: Minimal edema, peripheral perfusion with no cyanosis Neurological: Grossly non-focal Data : 08/25/20 05:32 08/25/20 05:32 Micro: Microbiology 08/23/20 08:50 Blood Culture - Preliminary Blood Staphylococcus aureus 08/23/20 08:45 Blood Culture - Preliminary Blood Staphylococcus aureus 08/24/20 11:30 Catheter Tip Culture - Preliminary Other Source 08/24/20 09:06 Blood Culture - Preliminary Blood NEGATIVE TO DATE 08/24/20 08:55 Blood Culture - Preliminary Blood NEGATIVE TO DATE 08/23/20 10:32 Urine Culture - Final Urine Catheterized 08/25/20 05:32 Blood Culture - Preliminary Blood SPECIMEN COLLECTED 08/25/20 05:32 Blood Culture - Preliminary Blood SPECIMEN COLLECTED 08/23/20 18:00 MRSA Culture - Final Nose A&P Additional A&P Information 1. ESRD No acute need for a dialysis today, hopefully we can give him a break for a few days prior to replacing any form of access. Low potassium diet and do not replace low potassium in the setting. Dose medication for GFR less than 15 on dialysis 2. Fever and sepsis Staph Aureus growing in multiple cultures. Consistent with line infection Currently on Zyvox and Primaxin Final isolate is pending Line to be removed today. Will need IE rule out, TTE ok We will need a line holiday for least 48 hours prior to temporary line. Tunneled line to be replaced after 48 hrs of negative growth 3. Chemistry Magnesium replaced, will avoid additional potassium at this time. Otherwise Minor aberration we will watching closely. 4. Hemodynamics blood pressure remains soft. 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
[2020-08-25] MEDS: levETIRAcetam 500 mg Tablet PO (18:03)
[2020-08-25 18:15] LABS: Glucose Point of Care 106 mg/dL (70-110)
[2020-08-25 20:04] LABS: Glucose Point of Care 110 mg/dL (70-110)
[2020-08-25] MEDS: atorvastatin 40 mg Tablet PO (21:32)
[2020-08-26] VITALS (7 sets, daily range): BP systolic 125–145; BP diastolic 48–68; PULSE 55–64; RESP 15–18; TEMP 36.1–36.8; O2SAT 94–98
[2020-08-26] MEDS: heparin 5,000 unit/mL INJ 1 mL 5000 UNIT SUBCUT (03:07)
[2020-08-26] MEDS: linezolid premix 600 MG/300 ML PREMIX 300 MG IV (03:46)
[2020-08-26 06:09] LABS: Basophils % 0.4 %; Eosinophils # 0.1 10^3/uL (0.0-0.8); Eosinophils % 2.2 %; Hemoglobin 7.5 g/dL (11.7-16.6); Lymphocytes # 0.7 10^3/uL (0.8-4.8); Lymphocytes % 13.6 %; Mean Corpuscular HGB Conc 32.6 g/dL (30.0-36.0); Mean Corpuscular Hemoglobin 30.2 pg (28.0-34.0); Mean Corpuscular Volume 92.7 fL (80-94); Mean Platelet Volume 10.6 fL (7.4-10.4); Monocytes # 0.7 10^3/uL (0.2-0.9); Monocytes % 13.4 %; Neutrophils # 3.56 10^3/uL (1.8-7.7); Nucleated Red Blood Cells % 0 %; Platelet Count 118 10^3/cmm (130-400); Red Blood Count 2.48 10^6/uL (4.1-5.3); Red Cell Distribution Width 17.3 % (12.1-15.1); White Blood Count 5.1 10^3/uL (4.0-10.0)
[2020-08-26 06:13] LABS: Alanine Aminotransferase 6 U/L (0-41); Albumin Level 2.7 g/dL (3.5-5.2); Alkaline Phosphatase 50 IU/L (40-130); Anion Gap 13.3 (5-19); Aspartate Amino Transferase 24 U/L (0-40); Blood Urea Nitrogen 42 mg/dL (8-23); Calcium 7.8 mg/dL (8.5-10.5); Carbon Dioxide 26 mmol/L (22-29); Chloride 93 mmol/L (98-107); Globulin 2.9 g/dL (1.3-4.6); Glucose 101 mg/dL (65-115); Osmolality Calculated 279 mOsm/kg (285-295); Potassium 3.3 mmol/L (3.5-5.1); Sodium 129 mmol/L (136-145); Total Bilirubin 0.2 mg/dL (0.15-1.2); Total Protein 5.6 g/dL (6.6-8.7)
[2020-08-26 06:44] LABS: Glucose Point of Care 104 mg/dL (70-110)
--- NOTE | 2020-08-26 09:29 | PC.SOCIAL ---
IMM Update Pg. 2 of IMM updated. Copy provided.
--- NOTE | 2020-08-26 10:53 | PM.PN ---
Subjective Subjective: Interval history: Moy reports he is feeling okay today. Not short of breath. No chest discomfort. Medications: Reviewed: Yes Vitals/I&O/Wt Last Vital Signs Temp 97.9 F 08/26/20 08:00 Pulse 58 L 08/26/20 08:00 Resp 18 08/26/20 08:00 BP 125/48 08/26/20 08:00 Pulse Ox 97 08/26/20 08:00 08/25/20 08/26/20 08/26/20 22:59 06:59 14:59 Intake Total 1540 / 2145 400 / 2545 240 / 240 Output Total 300 / 300 400 / 700 Balance 1240 / 1845 0 / 1845 240 / 240 Weight last 48 hrs Weight 82.1 kg Weight 84 kg Physical Exam Narrative: EXAM NARRATIVE: General exam no apparent distress Cardiovascular regular rate and rhythm without murmur, no S3 or S4 Lungs diminished breath sounds at the bases but clear Abdomen is soft. Positive bowel sounds with Denise Extremities right lower extremity amputation, below the knee. Right no cyanosis or clubbing. Data : 08/26/20 05:23 08/26/20 05:23 Micro: Microbiology 08/23/20 08:50 Blood Culture - Preliminary Blood Staphylococcus aureus 08/23/20 08:45 Blood Culture - Preliminary Blood Staphylococcus aureus 08/25/20 05:32 Blood Culture - Preliminary Blood NEGATIVE TO DATE 08/25/20 05:32 Blood Culture - Preliminary Blood NEGATIVE TO DATE 08/24/20 11:30 Catheter Tip Culture - Preliminary Other Source 08/24/20 09:06 Blood Culture - Preliminary Blood NEGATIVE TO DATE 08/24/20 08:55 Blood Culture - Preliminary Blood NEGATIVE TO DATE 08/23/20 10:32 Urine Culture - Final Urine Catheterized A&P Assessment and plan (1) Sepsis: Has severe sepsis, not septic shock Presented with fever, oxygen requirement, pneumonia, tachycardia, borderline hypotension, significant leukocytosis IV antibiotics consisting of Primaxin, linezolid. Note he has a history of ESBL UTI. 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 Blood cultures currently growing staph aureus, sensitive to vancomycin and Rocephin Dialysis catheter removed August 24 secondary to positive cultures. Tip negative to date but note that he received IV antibiotics prior to this being removed. Repeat cultures still negative Plan for dialysis catheter to be replaced tomorrow Transthoracic echocardiogram did not show vegetation Cardiology consult for opinion regarding JOSEPH If no vegetation on valves on JOSEPH plan on 2 weeks IV antibiotics from first negative culture. Vancomycin will be used secondary to concern of pneumonia when he came in, and MRSA PCR positive. Ideally this can be given after dialysis. Status: Acute (2) Acute encephalopathy: Secondary to sepsis. Resolved No exam findings currently to suggest meningitis Status: Acute (3) Pneumonia: IV antibiotics of linezolid and Primaxin currently. As culture results have returned on staph aureus will change linezolid to vancomycin Continue Primaxin for time being secondary to concern of pneumonia, although likely no antibiotic will have to be continued regarding this on discharge. Status: Acute (4) Elevated troponin: Likely type II Echocardiogram demonstrated an EF of 30 to 35%, moderate septal hypokinesis, no significant change from previous. No obvious vegetations. Status: Acute (5) Hypomagnesemia: Now normal Status: Acute (6) CKD (chronic kidney disease), stage V: Appreciate nephrology consultation in regards to dialysis. Plan is to replace dialysis catheter with tunneled catheter tomorrow. Status: Acute (7) Type 2 diabetes mellitus: Sliding scale insulin Status: Chronic (8) Seizure disorder: Continue Keppra. Status: Chronic (9) Combined systolic and diastolic congestive heart failure: Continue statin Secondary to bradycardia will not reinstitute metoprolol. Blood pressure not elevated and will not reinstitute Norvasc. See notation under elevated troponin regarding echocardiogram this hospitalization . Status: Chronic Qualifiers: Heart failure chronicity: chronic Qualified Code(s): I50.42 - Chronic combined systolic (congestive) and diastolic (congestive) heart failure Additional A&P Information Anemia. No evidence of active bleeding. Continue to monitor. Likely somewhat hemodiluted and will improve after dialysis Changed to full code Heparin will suffice for DVT prophylaxis Attestations Medical Necessity Statement*: Needs continued hospitalization for IV antibiotics secondary to sepsis and bacteremia with staph aureus. Coding Level of Care Code Acute Immersion Metalcleaner for [facility] Fwd Diagnoses Sepsis A41.9 Acute encephalopathy G93.40 Pneumonia J18.9 Elevated troponin R77.8 Hypomagnesemia E83.42 CKD (chronic kidney disease), stage V N18.5 Type 2 diabetes mellitus E11.9 Seizure disorder G40.909 Combined systolic and diastolic congestive heart failure I50.42 Heart failure chronicity: chronic
[2020-08-26] MEDS: vancomycin 1,500 MG/300 ML PIGGYBACK 200 MG IV (11:23)
[2020-08-26] MEDS: levETIRAcetam 500 mg Tablet PO (11:23)
[2020-08-26] MEDS: pantoprazole DR 40 mg Tablet PO (11:23)
[2020-08-26 11:30] LABS: Glucose Point of Care 100 mg/dL (70-110)
[2020-08-26] MEDS: acetaminophen 325 mg Tablet 650 MG PO (11:31)
--- NOTE | 2020-08-26 11:54 | P.PN_ITS ---
Subjective Subjective: Interval history: feels better Medications: Reviewed: Yes Vitals/I&O/Wt Last Vital Signs Temp 97.9 F 08/26/20 08:00 Pulse 58 L 08/26/20 08:00 Resp 18 08/26/20 08:00 BP 125/48 08/26/20 08:00 Pulse Ox 97 08/26/20 08:00 08/25/20 08/26/20 08/26/20 22:59 06:59 14:59 Intake Total 1540 / 2145 400 / 2545 240 / 240 Output Total 300 / 300 400 / 700 Balance 1240 / 1845 0 / 1845 240 / 240 Weight last 48 hrs Weight 82.1 kg Weight 84 kg Physical Exam Const: COMMON NORMALS: no acute distress GENERAL APPEARANCE: cooperative Extremity: NARRATIVE EXTREMITY EXAM: BKA Data : 08/26/20 05:23 08/26/20 05:23 Micro: Microbiology 08/23/20 08:50 Blood Culture - Preliminary Blood Staphylococcus aureus 08/23/20 08:45 Blood Culture - Preliminary Blood Staphylococcus aureus 08/25/20 05:32 Blood Culture - Preliminary Blood NEGATIVE TO DATE 08/25/20 05:32 Blood Culture - Preliminary Blood NEGATIVE TO DATE 08/24/20 11:30 Catheter Tip Culture - Preliminary Other Source 08/24/20 09:06 Blood Culture - Preliminary Blood NEGATIVE TO DATE 08/24/20 08:55 Blood Culture - Preliminary Blood NEGATIVE TO DATE 08/23/20 10:32 Urine Culture - Final Urine Catheterized A&P Additional A&P Information 1. ESRD, new to dialysis, started < 1 month ago 2. Staph aureus sepsis likely secondary to dialysis catheter infection, catheter removed, repeat BC negative 3. Hypokalemia, can have regular diet 4. Hyponatremia, hypervolemic. Fluid restrict 5. Anemia Recommend: Proceed with tunneled dialysis catheter placement tomorrow, followed by dialysis. Vanco can be administered at dialysis as outpatient. Epogen at dialysis. Withhold IV iron while receiving IV antibiotics. Attestations Medical Necessity Statement*: see above Time Spent in Patient Care: 16 - 35 minutes Coding Level of Care Code Acute Supervising Appraiser for Brandy Sanchez
--- NOTE | 2020-08-26 12:02 | P.CONIM_ITS ---
Providers/Reason For Consult Consulting Physican/Specialty*: Sebastian West MD/ Cardiology Reason for Consult*: Rule out endocarditis Requesting Physcian: Matias Young MD Attending Physician: Matias Young MD Primary Care Provider: Sajan Jack Jr, MD History of Present Illness History of Present Illness Moy Fernandez is a 70 year old male with significant cardiac history including coronary artery disease and CABG in the past and CHF presented to hospital with altered mental status. He has been found to staph aureus bacteremia. Transthoracic echocardiogram does not reveal vegetations. However given his hellen teremia, cardiology was consulted for performing transesophageal echocardiogram that will determine need for prolonged antibiotic regimen. Patient says he is doing well. He denies any complaints of chest pain, shortness of breath or palpitations. He had dialysis catheter that was removed and tip cultures are pending. Review of Systems General: Reports: 10 or more systems reviewed and unremarkable except in HPI and below Meds/Allergies Home Medications and Allergies Home Medications Medication Instructions Recorded Confirmed Last Taken Type acetaminophen 650 mg PO Q4H PRN 02/14/20 08/23/20 08/15/20 History Pay[place]-Bl[place] Plus Cold+Flu 1 packet PO Q4H PRN 07/23/20 08/23/20 08/21/20 History ascorbic acid (vitamin C) [Vitamin 500 mg PO DAILY@0800 07/23/20 08/23/20 08/22/20 History C] hydrocodone-acetaminophen 1 tab PO BID PRN 07/23/20 08/23/20 08/19/20 History levetiracetam [Keppra] 500 mg PO BID@0700,2100 07/23/20 08/23/20 08/22/20 History pantoprazole 40 mg PO BID@06,18 07/23/20 08/23/20 08/23/20 History amlodipine 5 mg PO DAILY 30 Days #30 tab 08/02/20 08/23/20 08/22/20 Rx aspirin 81 mg PO DAILY 30 Days #30 tab 08/02/20 08/23/20 08/22/20 Rx atorvastatin 40 mg PO BEDTIME 30 Days #30 tab 08/02/20 08/23/20 08/22/20 Rx clopidogrel 75 mg PO DAILY 30 Days #30 tab 08/02/20 08/23/20 08/22/20 Rx isosorbide mononitrate 30 mg PO DAILY 30 Days #30 tab 08/02/20 08/23/20 08/22/20 Rx metoprolol tartrate 25 mg PO Q12H 30 Days #60 tab 08/02/20 08/23/20 08/22/20 Rx sevelamer carbonate 800 mg PO TIDWM 30 Days #90 tab 08/02/20 08/23/20 08/22/20 Rx bisacodyl 10 mg UT DAILY PRN 08/23/20 08/23/20 Unknown History nystatin 1 unit PO DAILY 08/23/20 08/23/20 08/22/20 History Allergies Allergy/AdvReac Type Severity Reaction Status Date / Time No Known Allergies Allergy Verified 08/17/20 15:25 Current Medications Current Medications Generic Name Dose Route Start Last Admin Trade Name Freq PRN Reason Stop Dose Admin Acetaminophen 650 mg 08/23/20 14:21 08/25/20 00:26 Acetaminophen 325 Mg Tablet PO 650 mg Q6H PRN Administration MILD PAIN Acetaminophen 650 mg 08/24/20 02:58 08/24/20 03:14 Acetaminophen 650 Mg Supp UT 650 mg Q4H PRN Administration MILD PAIN OR INCREASE TEMP Hydrocodone Bitart/Acetaminophen 1 tab 08/24/20 21:25 08/25/20 11:33 Hydrocodone-Acetaminophen 5-325 Mg Tablet PO 1 tab BID PRN Administration MODERATE PAIN Aspirin 81 mg 08/24/20 09:00 08/25/20 08:41 Aspirin 81 Mg Ec Tablet PO 81 mg DAILY YANELI Administration Atorvastatin Calcium 40 mg 08/23/20 21:00 08/25/20 21:32 Atorvastatin 40 Mg Tablet PO 40 mg BEDTIME YANELI Administration Clopidogrel Bisulfate 75 mg 08/24/20 09:00 08/25/20 08:41 Clopidogrel 75 Mg Tablet PO 75 mg DAILY YANELI Administration Heparin Sodium (Beef Lung) 5,000 unit 08/23/20 15:00 08/26/20 03:07 Heparin 5,000 Unit/Ml Inj 1 Ml SUBCUT 5,000 unit Q12H YANELI Administration Imipenem/Cilastatin Sodium 250 100 mls @ 200 mls/hr 08/23/20 14:30 08/26/20 03:56 mg/ Sodium Chloride IV Infused Q12H YANELI Infusion Protocol Insulin Aspart 0 unit 08/23/20 18:00 08/26/20 11:18 Insulin Aspart 100 Unit/1 Ml SUBCUT Not Given WM&BEDTIME YANELI Protocol Levetiracetam 500 mg 08/25/20 18:00 08/25/20 18:03 Levetiracetam 500 Mg Tablet PO 500 mg BID YANELI Administration Ondansetron HCl 4 mg 08/23/20 14:21 08/24/20 00:29 Ondansetron 2 Mg/Ml Sdv 2 Ml IVP 4 mg Q6H PRN Administration NAUSEA AND VOMITING Pantoprazole Sodium 40 mg 08/23/20 18:00 08/25/20 18:[address] 40 Mg Tablet PO 40 mg BID@06,18 YANELI Administration PFSH Acute PFSH: Medical History Anemia in CKD (chronic kidney disease) Atherosclerotic heart disease of [place] coronary artery without angina pectoris CHF (congestive heart failure) Chronic ulcer of ankle CKD (chronic kidney disease), stage V started hemodialysis 07/29/2020 Combined systolic and diastolic congestive heart failure Echo 08/04 demonstrates EF 35 to 40% COVID-19 (~01/2020) Diabetes mellitus History of ESBL E. coli infection Hypertension Multilevel degenerative disc disease has known hx of multilevel DJD, s/p spinal stimulator Peripheral neuropathy Polyneuropathy in other diseases classified elsewhere Seizure disorder Spinal cord stimulator status Spinal stenosis Type 2 diabetes mellitus Surgical History S/P CABG x 3 S/P dialysis catheter insertion (07/29/20) Giurgius S/P insertion of spinal cord stimulator Status post below knee amputation of right lower extremity Family History Other Hyperlipidemia Hypertension Denies family history of Psychiatric illness Lung disease Social History Smoking and tobacco status: former smoker Alcohol intake: former Lives independently: No (Brother is his power of delineator, recently has had to be involved in more decisions) Housing: Long Term Vitals/I&O/Wt Last Vital Signs Temp 97.9 F 08/26/20 08:00 Pulse 58 L 08/26/20 08:00 Resp 18 08/26/20 08:00 BP 125/48 08/26/20 08:00 Pulse Ox 97 08/26/20 08:00 08/25/20 08/26/20 08/26/20 22:59 06:59 14:59 Intake Total 1540 / 2145 400 / 2545 240 / 240 Output Total 300 / 300 400 / 700 Balance 1240 / 1845 0 / 1845 240 / 240 Weight last 48 hrs Weight 181 lb Weight 185 lb 3 oz Physical Exam Narrative: EXAM NARRATIVE: No apparent distress PERRLA Cardiovascular regular rate and rhythm, he has grade 3 /6 systolic murmur. Lungs diminished breath sounds at the bases but clear Abdomen is soft. Extremities right lower extremity amputation, below the knee. Right no cyanosis or clubbing. Data Micro: Micro: Microbiology 08/23/20 08:50 Blood Culture - Pr eliminary Blood Staphylococcus aureus 08/23/20 08:45 Blood Culture - Pr eliminary Blood Staphylococcus aureus 08/25/20 05:32 Blood Culture - Pr eliminary Blood NEGATIVE TO LEONIDES E 08/25/20 05:32 Blood Culture - Pr eliminary Blood NEGATIVE TO LEONIDES E 08/24/20 11:30 Catheter Tip Cultu re - Preliminary Other Source 08/24/20 09:06 Blood Culture - Pr eliminary Blood NEGATIVE TO LEONIDES E 08/24/20 08:55 Blood Culture - Pr eliminary Blood NEGATIVE TO LEONIDES E 08/23/20 10:32 Urine Culture - Fi nal Urine Catheterize d A&P Assessment and plan (1) Staphylococcus aureus bacteremia: Status: Acute (2) CHF (congestive heart failure): Status: Chronic (3) Hypertension: Status: Chronic (4) CAD (coronary artery disease): Status: Chronic (5) Type 2 diabetes mellitus: Status: Chronic Patient has staph bacteremia. Transthoracic echocardiogram did not reveal vegetations. However given patient had dialysis catheter that was removed, and was bacteremic with Staphylococcus aureus and septic, will proceed with transesophageal echocardiogram to rule out endocarditis. We will try to schedule transesophageal echocardiogram at the same time as patient is scheduled to have dialysis catheter placement tomorrow Continue cardiac medications. Thank you for involving us with care of this patient. Please call with questions. Coding Level of Care Code Acute Paper Twister Tender for Brandy Sanchez Diagnoses Sepsis A41.9 Staphylococcus aureus bacteremia R78.81; B95.61 CHF (congestive heart failure) I50.9 Hypertension I10 CAD (coronary artery disease) I25.10 Type 2 diabetes mellitus E11.9
[2020-08-26 17:06] LABS: Glucose Point of Care 101 mg/dL (70-110)
[2020-08-26 21:33] LABS: Glucose Point of Care 132 mg/dL (70-110)
[2020-08-27] VITALS (15 sets, daily range): BP systolic 129–163; BP diastolic 50–82; PULSE 59–78; RESP 12–21; TEMP 36.4–37.2; O2SAT 95–100
--- NOTE | 2020-08-27 | SCC_ITS ---
Procedure Done: Placement of 23 cm long 16 [place] AshSplit tunneled hemodialysis catheter in the right internal jugular vein 45.7 seconds of fluoroscopic guidance, for a cumulative dose of 11.40 mGy, was provided to Dr. Maurer by the radiology department. C-arm images of the chest were saved for the patient's permanent record. [facility]
[2020-08-27 04:20] LABS: Basophils % 0.7 %; Eosinophils # 0.1 10^3/uL (0.0-0.8); Eosinophils % 2.3 %; Hematocrit 24.8 % (42.0-52.0); Hemoglobin 8.2 g/dL (11.7-16.6); Lymphocytes # 0.6 10^3/uL (0.8-4.8); Mean Corpuscular HGB Conc 33.1 g/dL (30.0-36.0); Mean Corpuscular Hemoglobin 30.5 pg (28.0-34.0); Mean Corpuscular Volume 92.2 fL (80-94); Mean Platelet Volume 10.3 fL (7.4-10.4); Monocytes # 0.5 10^3/uL (0.2-0.9); Monocytes % 11.1 %; Neutrophils # 3.19 10^3/uL (1.8-7.7); Neutrophils % 72.4 %; Nucleated Red Blood Cells % 0 %; Platelet Count 134 10^3/cmm (130-400); Red Blood Count 2.69 10^6/uL (4.1-5.3); Red Cell Distribution Width 17.1 % (12.1-15.1); White Blood Count 4.4 10^3/uL (4.0-10.0)
[2020-08-27 04:30] LABS: Alanine Aminotransferase < 5 U/L (0-41); Albumin Level 2.8 g/dL (3.5-5.2); Alkaline Phosphatase 56 IU/L (40-130); Anion Gap 14.6 (5-19); Aspartate Amino Transferase 18 U/L (0-40); Blood Urea Nitrogen 49 mg/dL (8-23); Calcium 7.9 mg/dL (8.5-10.5); Carbon Dioxide 26 mmol/L (22-29); Chloride 97 mmol/L (98-107); Globulin 2.9 g/dL (1.3-4.6); Glucose 95 mg/dL (65-115); Osmolality Calculated 291 mOsm/kg (285-295); Potassium 3.6 mmol/L (3.5-5.1); Sodium 134 mmol/L (136-145); Total Bilirubin 0.2 mg/dL (0.15-1.2); Total Protein 5.7 g/dL (6.6-8.7)
--- NOTE | 2020-08-27 06:26 | ANES.PREANE2 ---
Pre-Anesthetic Assessment Pre-Anesthetic Assessment: Height/Weight: Height 1.8 m Weight 82.157 kg Temp Pulse Resp BP Pulse Ox 97.9 F 63 17 154/50 98 08/27/20 03:52 08/27/20 03:52 08/27/20 03:52 08/27/20 03:52 08/27/20 03:52 Preop Diagnosis: End-stage renal disease Requiring hemodialysis Proposed Procedure: Operation Date: 08/27/20 07:00 Proposed Procedures p dialysis catheter insertion and Bryson with ultrasound(Not Applicable) - Hans Maurer MD Familial anesthetic complications: None Was Beta Nina taken within 24 hours: Yes Was Clonidine taken within 24 hours: N/A Last intake: > 8 hrs Social: Social History: Alcohol and No tobacco Comment: beer a day Exam: Pre-Anes Outpt Exam: alert, oriented x 3, clear to auscultation bilaterally and regular rate & rhythm Airway: Cervical ROM: WNL Dentition: Other (missing upper teeth) Pulmonary: Comments: pneumonia CV/HEM: CV/HEM: CAD, CHF, HTN, MO (eleavted troponins) and PVD Comments: EF 35% on echo (mildly increased filling pressures), hypokinesis Cath report shows ischemic cardiomyopathy : : Chronic renal Insufficiency Metabolic: Metabolic: DM Neuropsych: Neuropsych: Neuropathy and Seizure Anesthetic Plan: ASA status: 4 Anesthesia: MAC Risk of > 500 ml blood loss (7ml/kg in children): No Meds/Allergies Current Medications: Current Medications Generic Name Dose Route Start Last Admin Trade Name Freq PRN Reason Stop Dose Admin Acetaminophen 650 mg 08/23/20 14:21 08/26/20 11:31 Acetaminophen 32 5 Mg Tablet PO 650 mg Q6H PRN Administration MILD PAIN Acetaminophen 650 mg 08/24/20 02:58 08/24/20 03:14 Acetaminophen 65 0 Mg Supp DE 650 mg Q4H PRN Administration MILD PAIN OR INCR EASE TEMP Hydrocodone Bitart /Acetaminophen 1 tab 08/24/20 21:25 08/25/20 11:33 Hydrocodone-Acet aminophen 5-325 Mg Tablet PO 1 tab BID PRN Administration MODERATE PAIN Aspirin 81 mg 08/24/20 09:00 08/26/20 12:08 Aspirin 81 Mg Ec Tablet PO Not Given DAILY YANELI Atorvastatin Calci um 40 mg 08/23/20 21:00 08/26/20 23:31 Atorvastatin 40 Mg Tablet PO Not Given BEDTIME [facility] Clopidogrel Bisulf ate 75 mg 08/24/20 09:00 08/26/20 12:08 Clopidogrel 75 M g Tablet PO Not Given DAILY [facility] Heparin Sodium (Be ef Lung) 5,000 unit 08/23/20 15:00 08/27/20 03:24 Heparin 5,000 Un it/Ml Inj 1 Ml SUBCUT Not Given Q12H [facility] Imipenem/Cilastati n Sodium 250 100 mls @ 200 mls /hr 08/23/20 14:30 08/27/20 04:20 mg/ Sodium Chlor nikia IV Infused Q12H [facility] Infusion Protocol Insulin Aspart 0 unit 08/23/20 18:00 08/26/20 21:39 Insulin Aspart 1 00 Unit/1 Ml SUBCUT Not Given WM&BEDTIME [facility] Protocol Levetiracetam 500 mg 08/25/20 18:00 08/26/20 19:08 Levetiracetam 50 0 Mg Tablet PO Not Given BID [facility] Ondansetron HCl 4 mg 08/23/20 14:21 08/24/20 00:29 Ondansetron 2 Mg /Ml Sdv 2 Ml IVP 4 mg Q6H PRN Administration NAUSEA AND VOMITI NG Pantoprazole Sodiu m 40 mg 08/23/20 18:00 08/27/20 05:[address] 40 Mg Tablet PO Not Given BID@06,18 [facility] PFSH Anesthesia PFSH: Medical History Anemia in CKD (chronic kidney disease) Atherosclerotic heart disease of [place] coronary artery without angina pectoris CHF (congestive heart failure) Chronic ulcer of ankle CKD (chronic kidney disease), stage V started hemodialysis 07/29/2020 Combined systolic and diastolic congestive heart failure Echo 08/04 demonstrates EF 35 to 40% COVID-19 (~01/2020) Diabetes mellitus History of ESBL E. coli infection Hypertension Multilevel degenerative disc disease has known hx of multilevel DJD, s/p spinal stimulator Peripheral neuropathy Polyneuropathy in other diseases classified elsewhere Seizure disorder Spinal cord stimulator status Spinal stenosis Type 2 diabetes mellitus Surgical History S/P CABG x 3 S/P dialysis catheter insertion (07/29/20) Giurgius S/P insertion of spinal cord stimulator Status post below knee amputation of right lower extremity Family History Other Hyperlipidemia Hypertension Denies family history of Psychiatric illness Lung disease Social History Smoking and tobacco status: former smoker Alcohol intake: former Lives independently: No (Brother is his power of assistant attorney general, recently has had to be involved in more decisions) Housing: Assisted Data Anesthesia CBC & Chem 7: 08/27/20 04:03 08/27/20 04:03 Other Labs: Laboratory Results - last 48 hr 08/25/20 08/25/20 08/25/20 05:32 05:32 07:31 WBC 7.3 RBC 2.70 L Hgb 8.1 L Hct 26.0 L MCV 96.3 H MCH 30.0 MCHC 31.2 RDW 18.1 H Plt Count 110 L MPV 11.0 H Neut % (Auto) 78.0 Lymph % (Auto) 9.1 [place] % (Auto) 11.8 Eos % (Auto) 0.3 Baso % (Auto) 0.4 Neut # (Auto) 5.67 Lymph # (Auto) 0.7 L [place] # (Auto) 0.9 Eos # (Auto) 0.0 Baso # (Auto) 0.0 Nucleated RBC % (auto) 0 Nucleated RBCs # 0.0 Sodium 133 L Potassium 3.4 L Chloride 95 L Carbon Dioxide 27 Anion Gap 14.4 BUN 37 H Creatinine 4.1 H GFR Calculation Not Reportable Glucose 91 POC Glucose 106 Calculated Osmolality 284 L Calcium 8.3 L Magnesium 2.0 Total Bilirubin 0.2 AST 33 ALT 16 Alkaline Phosphatase 56 Total Protein 5.6 L Albumin 2.9 L Globulin 2.7 08/25/20 08/25/20 08/25/20 11:46 17:59 19:59 WBC RBC Hgb Hct MCV MCH MCHC RDW Plt Count MPV Neut % (Auto) Lymph % (Auto) [place] % (Auto) Eos % (Auto) Baso % (Auto) Neut # (Auto) Lymph # (Auto) [place] # (Auto) Eos # (Auto) Baso # (Auto) Nucleated RBC % (auto) Nucleated RBCs # Sodium Potassium Chloride Carbon Dioxide Anion Gap BUN Creatinine GFR Calculation Glucose POC Glucose 101 106 110 Calculated Osmolality Calcium Magnesium Total Bilirubin AST ALT Alkaline Phosphatase Total Protein Albumin Globulin 08/26/20 08/26/20 08/26/20 05:23 05:23 06:23 WBC 5.1 RBC 2.48 L Hgb 7.5 L Hct 23.0 L MCV 92.7 MCH 30.2 MCHC 32.6 RDW 17.3 H Plt Count 118 L MPV 10.6 H Neut % (Auto) 70.0 Lymph % (Auto) 13.6 [place] % (Auto) 13.4 Eos % (Auto) 2.2 Baso % (Auto) 0.4 Neut # (Auto) 3.56 Lymph # (Auto) 0.7 L [place] # (Auto) 0.7 Eos # (Auto) 0.1 Baso # (Auto) 0.0 Nucleated RBC % (auto) 0 Nucleated RBCs # 0.0 Sodium 129 L Potassium 3.3 L Chloride 93 L Carbon Dioxide 26 Anion Gap 13.3 BUN 42 H Creatinine 4.8 H GFR Calculation Not Reportable Glucose 101 POC Glucose 104 Calculated Osmolality 279 L Calcium 7.8 L Magnesium Total Bilirubin 0.2 AST 24 ALT 6 Alkaline Phosphatase 50 Total Protein 5.6 L Albumin 2.7 L Globulin 2.9 08/26/20 08/26/20 08/26/20 11:17 17:02 21:28 WBC RBC Hgb Hct MCV MCH MCHC RDW Plt Count MPV Neut % (Auto) Lymph % (Auto) [place] % (Auto) Eos % (Auto) Baso % (Auto) Neut # (Auto) Lymph # (Auto) [place] # (Auto) Eos # (Auto) Baso # (Auto) Nucleated RBC % (auto) Nucleated RBCs # Sodium Potassium Chloride Carbon Dioxide Anion Gap BUN Creatinine GFR Calculation Glucose POC Glucose 100 101 132 H Calculated Osmolality Calcium Magnesium Total Bilirubin AST ALT Alkaline Phosphatase Total Protein Albumin Globulin 08/27/20 08/27/20 04:03 04:03 WBC 4.4 RBC 2.69 L Hgb 8.2 L Hct 24.8 L MCV 92.2 MCH 30.5 MCHC 33.1 RDW 17.1 H Plt Count 134 MPV 10.3 Neut % (Auto) 72.4 Lymph % (Auto) 13.0 [place] % (Auto) 11.1 Eos % (Auto) 2.3 Baso % (Auto) 0.7 Neut # (Auto) 3.19 Lymph # (Auto) 0.6 L [place] # (Auto) 0.5 Eos # (Auto) 0.1 Baso # (Auto) 0.0 Nucleated RBC % (auto) 0 Nucleated RBCs # 0.0 Sodium 134 L Potassium 3.6 Chloride 97 L Carbon Dioxide 26 Anion Gap 14.6 BUN 49 H Creatinine 5.0 H GFR Calculation Not Reportable Glucose 95 POC Glucose Calculated Osmolality 291 Calcium 7.9 L Magnesium Total Bilirubin 0.2 AST 18 ALT < 5 Alkaline Phosphatase 56 Total Protein 5.7 L Albumin 2.8 L Globulin 2.9 Micro: Microbiology 08/24/20 11:30 Catheter Tip Culture - Final Other Source 08/23/20 08:50 Blood Culture - Preliminary Blood Staphylococcus aureus 08/23/20 08:45 Blood Culture - Preliminary Blood Staphylococcus aureus 08/25/20 05:32 Blood Culture - Preliminary Blood NEGATIVE TO DATE 08/25/20 05:32 Blood Culture - Preliminary Blood NEGATIVE TO DATE Cardiac Studies: No Data to Display
[2020-08-27] MEDS: sodium chloride 0.9% 500 ML 999 ML IV (06:39)
--- NOTE | 2020-08-27 06:42 | SC_ITS ---
WS: [id number] C-arm fluoroscopy for dialysis catheter placement, today Clinical Data: HEMODIALYSIS CATHETER Comparison: Portable chest, 5 02/02/2001. Findings: The dialysis catheter has been inserted into the right jugular vein and it ends in the superior vena cava. SC/C-arm FL for CVA [id number] Impression: Insertion of right dialysis catheter.
[2020-08-27] MEDS: heparin, porcine 1,000 unit/mL INJ 10 mL 10000 UNIT HE (06:45)
--- NOTE | 2020-08-27 06:45 | USCV_ITS ---
Moy Fernandez Age: 70 Gender: M : 1950 Exam Date: 08/27/2020 08:18 Ordering Phys: Sebastian West M.D ([email or web address]) Technologist: Devonte Cuenca [place] [facility] [place]: ? VEG BP: / HR: Rhythm: Sinus Technical Quality: Good MEASUREMENTS (Male / Female) Normal Values Medications Patient given IV sedation by anesthesia service, for details please refer to the anesthesia report. Complications None Proc. Components FINDINGS Left Ventricle LV systolic function is mild to moderately reduced Right Ventricle Grossly normal Right Atrium Grossly normal Left Atrium Grossly normal LA Appendage Normal. No evidence of LAAA thrombus IA Septum Intact Mitral Valve Normal mitral valve. Mild mitral regurgitation. No vegetation is noted Aortic Valve Aortic valve is tricuspid. No vegetation noted on aortic valve Tricuspid Valve Normal valve. No vegetation is seen Pulmonic Valve No vegetation Pericardium Normal Aorta Has moderate atherosclerotic plaque CONCLUSIONS LV systolic function is mild to moderately reduced No evidence of vegetation/endocarditis noted Mild mitral regurgitation Sebastian West MD (Electronically Signed) Final Date: 28 Aug 2020 19:53 S
[2020-08-27] MEDS: lidocaine 1% INJ 20 mL SUBCUT (06:53)
--- NOTE | 2020-08-27 06:55 | P.PN_ITS ---
Subjective Subjective: Interval history: Patient has been afebrile since 08/24/2020, denies any neck pain Vitals/I&O/Wt Last Vital Signs Temp 97.7 F 08/27/20 06:30 Pulse 67 08/27/20 06:30 Resp 18 08/27/20 06:30 BP 129/55 08/27/20 06:30 Pulse Ox 99 08/27/20 06:30 08/26/20 08/26/20 08/27/20 14:59 22:59 06:59 Intake Total 780 / 1245 365 / 1245 100 / 1245 Output Total 1000 / 1000 Balance 780 / 245 365 / 245 -900 / 245 Weight last 48 hrs Weight 181 lb 2 oz Weight 181 lb Physical Exam 2 Narrative: EXAM NARRATIVE: Right neck: no cellulitis or hematoma Data : 08/27/20 04:03 08/27/20 04:03 Micro: Microbiology 08/24/20 11:30 Catheter Tip Culture - Final Other Source 08/23/20 08:50 Blood Culture - Preliminary Blood Staphylococcus aureus 08/23/20 08:45 Blood Culture - Preliminary Blood Staphylococcus aureus 08/25/20 05:32 Blood Culture - Preliminary Blood NEGATIVE TO DATE 08/25/20 05:32 Blood Culture - Preliminary Blood NEGATIVE TO DATE A&P Assessment and plan (1) CKD (chronic kidney disease), stage V: 70-year-old male with chronic kidney disease on dialysis who had his catheter removed due to staphylococcal bacteremia 3 days ago. Patient has been afebrile for 3 days and he needs dialysis. We will therefore plan for tunneled dialysis catheter placement under MAC today Procedure, risks, benefits and alternatives have been discussed with the patient who wishes to proceed with surgery. 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
--- NOTE | 2020-08-27 07:03 | P.PN_ITS ---
Subjective Subjective: Interval history: seen after tunneled dialysis catheter insertion, no complaints Medications: Reviewed: Yes Vitals/I&O/Wt Last Vital Signs Temp 97.7 F 08/27/20 06:30 Pulse 67 08/27/20 06:30 Resp 18 08/27/20 06:30 BP 129/55 08/27/20 06:30 Pulse Ox 99 08/27/20 06:30 08/26/20 08/27/20 08/27/20 22:59 06:59 14:59 Intake Total 365 / 1145 100 / 1245 Output Total 1000 / 1000 Balance 365 / 1145 -900 / 245 Weight last 48 hrs Weight 82.157 kg Weight 82.1 kg Physical Exam Const: COMMON NORMALS: no acute distress GENERAL APPEARANCE: cooperative Neck/C-Spine: OTHER: tunneled right IJ HD catheter Extremity: OTHER: BKA, trace edema Data : 08/27/20 04:03 08/27/20 04:03 Micro: Microbiology 08/24/20 11:30 Catheter Tip Culture - Final Other Source 08/23/20 08:50 Blood Culture - Preliminary Blood Staphylococcus aureus 08/23/20 08:45 Blood Culture - Preliminary Blood Staphylococcus aureus 08/25/20 05:32 Blood Culture - Preliminary Blood NEGATIVE TO DATE 08/25/20 05:32 Blood Culture - Preliminary Blood NEGATIVE TO DATE A&P Additional A&P Information 1. ESRD, new to dialysis, started < 1 month ago 2. Staph aureus sepsis likely secondary to dialysis catheter infection, catheter removed, repeat BC negative, now has new tunneled HD catheter 3. Hypokalemia, can have regular diet 4. Hyponatremia, hypervolemic. Fluid restrict 5. Anemia Recommend: Hemodialysis today. Vanco will be administered at dialysis as outpatient. Epogen at dialysis. Withhold IV iron while receiving IV antibiotics. Stable for discharge after dialysis from renal standpoint. Attestations Medical Necessity Statement*: per primary service Time Spent in Patient Care: 16 - 35 minutes Coding Level of Care Code Acute Sliver Chopper for Brandy Sanchez
--- NOTE | 2020-08-27 07:44 | P.OP_ITS ---
Operative Report Date of procedure: August 27, 2020 Pre-op Diagnosis: End-stage renal disease Requiring hemodialysis Post-op diagnosis: same Procedure Done: Placement of 23 cm long 16 [place]har[place] AshSplit tunneled hemodialysis catheter in the right internal jugular vein Fluoroscopic guidance and interpretation for placement of catheter Ultrasound guidance to access the right internal jugular vein Pathology: none sent Surgeon: Hans Maurer Anesthesia: MAC Condition: stable Disposition: PACU Procedure: The patient was taken to the operating room and placed under MAC after IV antibiotic had been administered. The chest and neck were prepped and draped in a sterile manner bilaterally. An ultrasound of the right internal jugular vein revealed patent flow, no thrombus identified. Using introducer needle the internal jugular vein on the right side was accessed and guidewire passed into the right atrium under fluoroscopy. Under fluoroscopy the location for the dialysis catheter was marked. Using 11 blade a skin incision was extended at the vein access site as well as the previously marked location on the right chest wall. The dialysis catheter was attached to the tunneler and passed subcutaneously, exiting at the venous access site. Serial dilators were passed over the guidewire under fluoroscopy. Finally the dilator peel-away sheath was passed over the guidewire and the inner dilator and guidewire was removed and the dialysis catheter was introduced into the right internal jugular vein as the peel-away sheath was removed. The tip of the catheter was noted to be in the right atrium. Both ports of the catheter jace blood and flushed easily. The catheter was sutured to the skin using 2-0 Prolene and the venous access site was closed with 4-0 Monocryl and Dermabond. A total of 5 mL of 1:10,000 heparin was injected into the 2 ports under dialysis catheter. Fluoroscopic guidance and interpretation for passage of guidewire and dilator and placement of catheter in the right atrium.
--- NOTE | 2020-08-27 08:34 | P.PN_ITS ---
Subjective Subjective: Interval history: Patient is doing well. he had JOSEPH that did not reveal vegetation. Vitals/I&O/Wt Last Vital Signs Temp 97.7 F 08/27/20 06:30 Pulse 67 08/27/20 06:30 Resp 18 08/27/20 06:30 BP 129/55 08/27/20 06:30 Pulse Ox 99 08/27/20 06:30 08/26/20 08/27/20 08/27/20 22:59 06:59 14:59 Intake Total 365 / 1145 100 / 1245 50 / 50 Output Total 1000 / 1000 Balance 365 / 1145 -900 / 245 50 / 50 Weight last 48 hrs Weight 181 lb 2 oz Weight 181 lb Physical Exam Narrative: EXAM NARRATIVE: No apparent distress PERRLA Cardiovascular regular rate and rhythm, he has grade 3 /6 systolic murmur. Lungs diminished breath sounds at the bases but clear Abdomen is soft. Extremities right lower extremity amputation, below the knee. Right no cyanosis or clubbing. Data : 08/27/20 04:03 08/27/20 04:03 Micro: Microbiology 08/24/20 11:30 Catheter Tip Culture - Final Other Source 08/23/20 08:50 Blood Culture - Preliminary Blood Staphylococcus aureus 08/23/20 08:45 Blood Culture - Preliminary Blood Staphylococcus aureus 08/25/20 05:32 Blood Culture - Preliminary Blood NEGATIVE TO DATE 08/25/20 05:32 Blood Culture - Preliminary Blood NEGATIVE TO DATE A&P Assessment and plan (1) Staphylococcus aureus bacteremia: Status: Acute (2) CHF (congestive heart failure): Status: Chronic (3) Hypertension: Status: Chronic (4) CAD (coronary artery disease): Status: Chronic (5) Type 2 diabetes mellitus: Status: Chronic Patient has staph bacteremia. Transthoracic echocardiogram did not reveal vegetations. We performed JOSEPH after the dialysis catheter was inserted. No evidence of vegetations seen Continue cardiac medications. Thank you for involving us with care of this patient. Please call with questions. Attestations Medical Necessity Statement*: Care expected to cross 2 midnights Coding Level of Care Code Acute Supervisor Customer Complaint Service for g Fwd Diagnoses Staphylococcus aureus bacteremia R78.81; B95.61 CHF (congestive heart failure) I50.9 Hypertension I10 CAD (coronary artery disease) I25.10 Type 2 diabetes mellitus E11.9
--- NOTE | 2020-08-27 10:04 | PC.NURSE ---
PT ARRIVED TO THE FLOOR POST-OP AROUND 0915. PT A/O. VITAL SIGNS WERE TAKEN AND RECORDED FOLLOWED: BLOD PRESSURE 154/62, TEMP 98.0, HEART RATE 70, RESPIRATIONS 14, AND 97% ON ROOM AIR. PTS CURRENT VITAL SIGNS ARE BLOOD PRESSURE 171/75, HEART RATE 73, 95% ON ROOM, RESPIRATIONS OF 15, TEMP OF 97.7. PT IS RESTING IN BED REQUESTING SOME WATER, WATCHING TV. NO PAIN. PT IS DOING WELL & SHOULD RECEIVE DIALYSIS TREATMENT THIS AFTERNOON. WILL CONTINUE TO MONITOR PT.
[2020-08-27 11:30] LABS: Glucose Point of Care 103 mg/dL (70-110)
--- NOTE | 2020-08-27 13:03 | P.DS_ITS ---
Discharge Providers Date of Admission: 08/23/20 14:21 Date of Discharge: August 27, 2020 Attending Provider at Admission: Matias Young MD Attending Provider at Discharge: Matias Young MD Primary Care Provider: Sajan Jack Jr, MD Diagnoses at Discharge Discharge Diagnosis (1) CKD (chronic kidney disease), stage V: Status: Acute Permanent problem details: started hemodialysis 07/29/2020 Reason for Visit Reason for Visit: AMS, LETHARGIC X 2 DAYS Hospital Course Hospital Course Moy is a 70-year-old white male who presented from the care home with evidence of sepsis demonstrated by fever and abnormal vital signs. He was started on broad-spectrum antibiotics. When it was noted that gram-positive bacteremia was present, his dialysis catheter was removed. Dialysis was held for over 48 hours. Repeat cultures demonstrated no evidence of growth and patient became afebrile and clinically improved. With repeat cultures being negative, a tunneled catheter was replaced on August 27. JOSEPH was also performed at that time and negative. As the patient was clinically improved, it was thought he could be discharged following dialysis on August 27. He will finish up 2 more weeks of IV vancomycin, given following his dialysis. There was concern of pneumonia on admission and patient also received 5 days of Primaxin. No further treatment was thought to be needed regarding this. Culture result from blood was staph aureus, not MRSA. This was sensitive to vancomycin. Culture of tip of dialysis line was negative, however line was removed after patient had been treated for over 36 hours. Physical Exam Narrative: EXAM NARRATIVE: General exam no apparent distress Cardiovascular regular in rhythm without murmur Lungs clear Abdomen is soft with positive sounds Extremities no cyanosis clubbing or edema Discharge Data Data Completed and Pending: Completed Studies During Hospitalization Category Date Time Status CT abdomen pelvis w con* [id number] Stat Cat Scan 08/23/20 08:[address] head wo con* 7 0450 Stat Cat Scan 08/23/20 08:33 Completed XR chest 1V shar ble [id number] Stat Exams 08/23/20 08:34 Completed CV echo complete* [id number] Routine Ultrasound 08/24/20 07:33 Completed Pending at discharge Category Date Time Status Blood Culture AM LABS Lab 08/25/20 05:32 Results Blood Culture Sta t Lab 08/24/20 09:06 Results Sputum Culture an d Gram Stain Routi ne Lab 08/23/20 14:21 Uncollected CV echo transesop hageal [id number] Routi ne Ultrasound 08/27/20 06:45 Taken Labs from last 24 hours 08/27/20 08/27/20 08/27/20 11:22 04:03 04:03 WBC 4.4 RBC 2.69 L Hgb 8.2 L Hct 24.8 L MCV 92.2 MCH 30.5 MCHC 33.1 RDW 17.1 H Plt Count 134 MPV 10.3 Neut % (Auto) 72.4 Lymph % (Auto) 13.0 Bucks % (Auto) 11.1 Eos % (Auto) 2.3 Baso % (Auto) 0.7 Neut # (Auto) 3.19 Lymph # (Auto) 0.6 L Bucks # (Auto) 0.5 Eos # (Auto) 0.1 Baso # (Auto) 0.0 Nucleated RBC % (a uto) 0 Nucleated RBCs # 0.0 Sodium 134 L Potassium 3.6 Chloride 97 L Carbon Dioxide 26 Anion Gap 14.6 BUN 49 H Creatinine 5.0 H GFR Calculation Not Reportable Glucose 95 POC Glucose 103 Calculated Osmolal ity 291 Calcium 7.9 L Total Bilirubin 0.2 AST 18 ALT < 5 Alkaline Phosphata se 56 Total Protein 5.7 L Albumin 2.8 L Globulin 2.9 08/26/20 08/26/20 21:28 17:02 WBC RBC Hgb Hct MCV MCH MCHC RDW Plt Count MPV Neut % (Auto) Lymph % (Auto) Bucks % (Auto) Eos % (Auto) Baso % (Auto) Neut # (Auto) Lymph # (Auto) Bucks # (Auto) Eos # (Auto) Baso # (Auto) Nucleated RBC % (a uto) Nucleated RBCs # Sodium Potassium Chloride Carbon Dioxide Anion Gap BUN Creatinine GFR Calculation Glucose POC Glucose 132 H 101 Calculated Osmolal ity Calcium Total Bilirubin AST ALT Alkaline Phosphata se Total Protein Albumin Globulin Vitals: Last Vital Signs Temp 98.2 F 08/27/20 12:00 Pulse 69 08/27/20 12:00 Resp 20 H 08/27/20 12:00 BP 163/71 08/27/20 12:00 Pulse Ox 97 08/27/20 12:00 Discharge Plan Discharge Patient Disposition: Xfer SNF Condition: Stable Prescriptions: New metoprolol tartrate 25 mg tablet 12.5 mg PO BID Qty: 30 RF: 0 vancomycin 1,000 mg recon soln 1,000 mg IV .q48 14 Days RF: 0 Continued acetaminophen 325 mg tablet 650 mg PO Q4H PRN (Reason: Pain) RF: 0 levetiracetam [Keppra] 500 mg Tablet 500 mg PO BID@0700,2100 RF: 0 ascorbic acid (vitamin C) [Vitamin C] 500 mg Tablet 500 mg PO DAILY@0800 RF: 0 pantoprazole 40 mg Tablet,Delayed Release (Dr/Ec) 40 mg PO BID@06,18 RF: 0 hydrocodone-acetaminophen 5-325 mg Tablet 1 tab PO BID PRN (Reason: Pain) RF: 0 [place] Plus Cold+Flu 12.5-10-20-650 mg Powder In Packet 1 packet PO Q4H PRN (Reason: reflux) RF: 0 amlodipine 5 mg Tablet 5 mg PO DAILY 30 Days Qty: 30 RF: 0 aspirin 81 mg Tablet,Delayed Release (Dr/Ec) 81 mg PO DAILY 30 Days Qty: 30 RF: 0 atorvastatin 40 mg Tablet 40 mg PO BEDTIME 30 Days Qty: 30 RF: 0 clopidogrel 75 mg Tablet 75 mg PO DAILY 30 Days Qty: 30 RF: 0 isosorbide mononitrate 30 mg Tablet Extended Release 24 Hr 30 mg PO DAILY 30 Days Qty: 30 RF: 0 sevelamer carbonate 800 mg Tablet 800 mg PO TIDWM 30 Days Qty: 90 RF: 0 bisacodyl 10 mg Suppository 10 mg OR DAILY PRN (Reason: Constipation) RF: 0 nystatin 1 billion unit Powder 1 unit PO DAILY RF: 0 Discontinued metoprolol tartrate 25 mg Tablet 25 mg PO Q12H 30 Days Qty: 60 RF: 0 Discharge Orders: Discharge Order (Routine); Ordered 08/27/20 Ordered By: Matias Young Referrals: [facility] [Outside] Sajan Jack Jr, MD [Primary Care Provider] - 4-7 days Patient Instructions: Metoprolol (By mouth), Vancomycin (Injection), Opioid Safety Activity Restrictions/Additional Instructions: Follow-up with nurse practitioner nursing facility in 3 to 5 days Note that he will be taking vancomycin 1 g IV following dialysis 3 times weekly for 2 weeks secondary to staph aureus bacteremia No further oral treatment for possible pneumonia as needed. Keep regular follow-up with nephrology. May discharge following dialysis. Please arrange follow-up in [place] regarding clotted AV fistula per primary labor custodian recommendations Discharge Attestations Time Spent in Discharge Care*: greater than 30 min Status at Discharge: Cognitive status at discharge: cognitively intact , Behavioral status at discharge: cooperative , Quality Metrics Clinical Quality Measures During this hospital stay, did patient experience: None Coding Level of Care Code Acute g FW RI note Diagnoses CKD (chronic kidney disease), stage V N18.5
--- NOTE | 2020-08-27 13:16 | ANE.PACU2 ---
Inpatient post-anesthesia follow up: Airway intact: Yes Vital signs: Temperature 98.2 F Pulse Rate [Monito r] 102 Pulse Rate 69 Respiratory Rate 20 Blood Pressure [Ri ght Arm] 132/66 Blood Pressure 163/71 Pulse Oximetry 97 Oxygen Delivery Me thod [ Nasal Cannula Current Rate & Del marielle] Oxygen Delivery Me thod Room Air Oxygen Flow Rate [ Current Rate 2 & Delivery] Oxygen Flow Rate 6 Fraction of Inspir ed Oxygen Hydration adequate: Yes Nausea and vomiting: No Pain level: 2 Mental status: Baseline
[2020-08-27] MEDS: pantoprazole DR 40 mg Tablet PO (18:18)
[2020-08-27] MEDS: levETIRAcetam 500 mg Tablet PO (18:18)
[2020-08-27] MEDS: HYDROcodone-acetaminophen 5-325 mg Tablet 1 TAB PO (18:18)
[2020-08-27] MEDS: vancomycin 1,000 MG in sodium chloride 0.9% 250 ML 250 MG IV (18:19)
--- NOTE | 2020-08-27 19:52 | PC.NURSE ---
PT HAS DONE WELL FOR ME TODAY. PT WENT TO DIALYSIS THIS EVENING AND FINISHED AROUND 1800. VANCOMYCIN WAS THEN ADMINISTERED AFTER ASSISTING PT BACK TO HIS ROOM PER DOCTOR'S ORDER. PT WAS HAVING SOME COMPLAINTS OF PAIN. THIS NURSE ADMINISTERED HYDROCODONE PER ORDER. AFTER ABOUT 45 MINUTES PT HAD NO COMPLAINTS OF PAIN. REPORT WAS CALLED TO NIC AT [facility]. ALL QUESTIONS WERE ANSWERED. IV WAS REMOVED. PT TOLERATED WELL. WE ARE JUST WAITING FOR TRANSPORTATION WHO SHOULD BE HERE ANY MINUTE. COIL WINDER WILL CONTINUE TO MONITOR PT.
== END 2020-08-27 20:03 | disposition skilled nursing facility (03) | DRG 871 ==
LOC: ER 09:06 → ICU 12:33 → MEDSURG 08-25 17:30
PROVIDERS: Internal Medicine; Surgery; Admitting Provider Internal Medicine; Emergency Provider Family Medicine; PCP Family Medicine; Visit Provider Internal Medicine
PROC: 0JH63XZ Insertion of Tunneled Vascular Access Device into Chest Subcutaneous Tissue and Fascia, Percutaneous Approach (ICD-10-PCS; principal; 2020-08-27 07:00)
PROC: B24BZZ4 Ultrasonography of Heart with Aorta, Transesophageal (ICD-10-PCS; CPT 93312; 2020-08-27 07:00)
DX: A41.9 Sepsis, unspecified organism (principal); J18.9 Pneumonia, unspecified organism; N18.6 End stage renal disease; G93.41 Metabolic encephalopathy; I13.2 Hypertensive heart and chronic kidney disease with heart failure and with stage 5 chronic kidney disease, or end stage renal disease; I50.42 Chronic combined systolic (congestive) and diastolic (congestive) heart failure; E87.1 Hypo-osmolality and hyponatremia; R65.20 Severe sepsis without septic shock; Z89.511 Acquired absence of right leg below knee; E11.22 Type 2 diabetes mellitus with diabetic chronic kidney disease; Z99.2 Dependence on renal dialysis; D63.1 Anemia in chronic kidney disease; I25.10 Atherosclerotic heart disease of native coronary artery without angina pectoris; Z95.1 Presence of aortocoronary bypass graft; Z86.16 Personal history of COVID-19; M47.9 Spondylosis, unspecified; Z96.82 Presence of neurostimulator; E11.42 Type 2 diabetes mellitus with diabetic polyneuropathy; G40.909 Epilepsy, unspecified, not intractable, without status epilepticus; Z87.891 Personal history of nicotine dependence; I95.9 Hypotension, unspecified; Z87.440 Personal history of urinary (tract) infections; E83.42 Hypomagnesemia; B95.62 Methicillin resistant Staphylococcus aureus infection as the cause of diseases classified elsewhere; Z79.891 Long term (current) use of opiate analgesic; Z79.82 Long term (current) use of aspirin; Z79.02 Long term (current) use of antithrombotics/antiplatelets
CPT/HCPCS: 36415; 36416; 70450; 71045; 74177; 76000; 77001; 80051; 80053; 81001; 82009; 82330; 82550; 82805; 82962; 83605; 83690; 83735; 84484; 85025; 86803; 87040; 87070; 87075; 87077; 87086; 87186; 87205; 87340; 87641; 90935; 93005; 93306; 93312; 93320; 93325; 96365; 96367; 96372; 99291; 99292; C1750; J0690; J0743; J1644; J1815; J1953; J1956; J2020; J2060; J2250; J2405; J2704; J3010; J3370; J3475; J3490; J7030; J7040; J7050; Q3014; Q9967

== ENCOUNTER 2020-09-05 15:09 | Emergency (ER) | payer MEDICARE, MEDICAID, SELFPAY ==
[2020-09-05 15:14] VITALS: BP 147/71; PULSE 57; RESP 18; TEMP 36.7; O2SAT 99; BMI 25.7
--- NOTE | 2020-09-05 15:30 | XRR_ITS ---
PROCEDURE INFORMATION: Exam: XR Chest Exam date and time: 09/05/2020 3:40 PM Age: 70 years old Clinical indication: Other vascular access device placement or adjustment; Other: Dialysis catheter; Dyspnea; Additional info: Right dialysis catheter check. TECHNIQUE: Imaging protocol: XR of the chest. Views: 1 view. COMPARISON: CR XR chest 1V portable [id number] 08/23/2020 8:32 AM FINDINGS: Tubes, catheters and devices: Right chest tunneled hemodialysis catheter terminates in the distal SVC with unremarkable position. Lungs: Decreased lung volumes without focal pulmonary consolidation. Pleural spaces: Unremarkable. No pleural effusion. No pneumothorax. Heart/Mediastinum: Previous CABG. Cardiac enlargement. Bones/joints: Unremarkable. XR/XR chest 1V portable [id number] IMPRESSION: 1. No focal acute pulmonary disease. 2. No changes in position of the dialysis catheter from comparison.
--- NOTE | 2020-09-05 15:31 | ECG_ITS ---
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 Measurements Intervals [place] Rate: 55 P: 194 OR: 148 QRS: 76 QRSD: 105 T: 3 QT: 476 QTc: 457 Interpretive Statements SINUS BRADYCARDIA MINIMAL ST DEPRESSION [0.025+ mV ST DEPRESSION] PROLONGED QT INTERVAL Compared to ECG 08/23/2020 15:09:43 ST (T wave) deviation now present Prolonged QT interval now present Sinus rhythm no longer present Intraventricular conduction delay no longer present T-wave abnormality no longer present Possible ischemia no longer present Electronically Signed On 09-05-2020 21:01:04 CDT by Sebastian West M.D. [id number]
--- NOTE | 2020-09-05 16:34 | PC.NURSE ---
pt refuses blood draw for ordered labs. pt education provided. pt declines blood work. MD Alonso notified
--- NOTE | 2020-09-05 18:45 | PC.NURSE ---
pressure dressing applied to dialysis catheter site to right subclavian. MD Alonso notified.
--- NOTE | 2020-09-05 19:13 | PC.NURSE ---
report called to Natali in SBAR format at [place].
[2020-09-05 22:24] VITALS: PULSE 89; RESP 18; O2SAT 96
--- NOTE | 2020-09-05 22:58 | W.ED.SKABFB ---
HPI - Skin/Abscess/Foreign Bdy General: Chief complaint: Skin/Abscess/Foreign Body Stated complaint: LEAKING DIALYSIS PORT Time Seen by Provider: 09/05/20 15:14 History of Present Illness: HPI narrative: The patient is a 70-year-old male who comes to the ER from [facility]. He recently 2 weeks ago got a dialysis catheter placed in his right chest. He says it has basically been leaking blood since the day it was placed. He is on aspirin and Plavix. senior care sent him because over the past day and a half they have changed several dressings the completely bloodsoaked. He refuses to allow blood draws. I recommended to check his hemoglobin and he again refuses. He understands that he could bleed to and from this condition. He is alert and oriented x4 and accepts the risks Onset (ago): day(s) (2) Severity: moderate Associated symptoms: Reports no associated symptoms Review of Systems General: Reports: 10 or more systems reviewed and unremarkable except in HPI and below Const: Denies: fatigue Eyes: Denies: change in vision, blurry vision or eye redness ENMT: Denies: throat pain, swelling of lips/tongue, ear or mastoid pain or nasal congestion Card: Denies: chest pain, palpitations, irregular heart rhythm, edema, dyspnea on exertion or orthopnea Resp: Denies: dyspnea, productive cough or non-productive cough GI: Denies: abdominal pain, diarrhea or GI cramping : Denies: flank pain, urinary frequency or urinary urgency Musc: Denies: neck pain, back pain, extremity pain, joint pain, joint redness, limited range of motion or muscle weakness Skin/Breast: Denies: rash, pruritus, erythema, skin pain or skin tenderness Neuro: Denies: headache(s), numbness in extremities, weakness in extremities, sensory changes, difficulty walking, dizziness, confusion or Slurred speech present Psych: Denies: anxiety or depression Endo: Denies: polyuria All/Imm: Denies: urticaria, throat swelling or tongue swelling PFSH ED PFSH: Medical History Anemia in CKD (chronic kidney disease) Atherosclerotic heart disease of [place] coronary artery without angina pectoris CHF (congestive heart failure) Chronic ulcer of ankle CKD (chronic kidney disease), stage V started hemodialysis 07/29/2020 Combined systolic and diastolic congestive heart failure Echo 08/04 demonstrates EF 35 to 40% COVID-19 (~01/2020) Diabetes mellitus History of ESBL E. coli infection Hypertension Multilevel degenerative disc disease has known hx of multilevel DJD, s/p spinal stimulator Peripheral neuropathy Polyneuropathy in other diseases classified elsewhere Seizure disorder Spinal cord stimulator status Spinal stenosis Type 2 diabetes mellitus Surgical History S/P CABG x 3 S/P dialysis catheter insertion (07/29/20) Giurgius S/P insertion of spinal cord stimulator Status post below knee amputation of right lower extremity Family History Other Hyperlipidemia Hypertension Denies family history of Psychiatric illness Lung disease Social History Smoking and tobacco status: former smoker Alcohol intake: former Lives independently: No (Brother is his power of water hydrant installer, recently has had to be involved in more decisions) Housing: Longterm Physical Exam Const: COMMON NORMALS: no acute distress, average body habitus, patient oriented x3, no limitations, healthy appearing, alert and well nourished GENERAL APPEARANCE: cooperative, comfortable, well kempt and well developed ORIENTATION/CONSCIOUSNESS: Yes awake, Yes oriented to person, Yes oriented to place and Yes oriented to time HENMT: COMMON NORMALS: normocephalic, external ears normal and Normal external nose present HEAD & SCALP: normal to inspection and normocephalic NOSE: Normal external nose present EXTERNAL EAR: Yes external ears normal MOUTH: Normal oral and palatal mucosa present THROAT: posterior oropharynx normal Eye: COMMON NORMALS: Equal, round and reactive pupils present and EOMs intact bilaterally GENERAL EYE: appearance normal, both eyes and all related structures PUPIL: Yes Equal, round and reactive pupils present Neck/C-Spine: COMMON NORMALS: full ROM, no lymphadenopathy, no meningeal signs and no JVD GENERAL: Yes normal visual inspection Lymph: LYMPHATIC: no lymphadenopathy noted Chest: COMMONS NORMALS: normal inspection of the chest and normal palpation of entire chest wall Resp: COMMON NORMALS: normal respiratory effort, No retractions, No use of accessory muscles, clear to auscultation bilaterally and percussion normal EFFORT & INSPECTION: Yes able to speak in complete sentences AUSCULTATION: clear to auscultation bilaterally PERCUSSION: percussion normal Cardio: COMMON NORMALS: no JVD, regular rate, regular rhythm, S1 normal heart sound present, S2 normal heart sound present and Peripheral pulses 2+ throughout RATE: regular rate RHYTHM: regular rhythm HEART SOUNDS: S1 normal heart sound present and S2 normal heart sound present PERIPHERAL PULSES: Peripheral pulses 2+ throughout GI: COMMON NORMALS: Normal to inspection, nondistended, normoactive bowel sounds present, Soft to palpation, non-tender and no masses INSPECTION: Yes normal to inspection PALPATION: Yes Soft to palpation : COMMON NORMALS: Yes no CVA tenderness BLADDER/KIDNEY EXAM: Yes no CVA tenderness Back/Pelvis: COMMON NORMALS: no CVA tenderness, thoracic and lumbar spine normal to inspection, no thoracic nor lumbar tenderness and thoraco-lumbar ROM normal Extremity: COMMON NORMALS: normal to inspection, full ROM, capillary refill normal, no joint enlargement and no pedal edema NARRATIVE EXTREMITY EXAM: Right lower extremity BKA GENERAL: Yes normal exam except as noted Neuro: COMMON NORMALS: patient oriented x3, CN's II-XII intact bilaterally, moves all extremities, no focal motor deficits, no sensory deficits noted and gait normal SENSORIUM/ORIENTATION: Yes alert, Yes oriented to person, Yes oriented to place and Yes oriented to time MENINGEAL SIGNS: Yes no meningeal signs Psych: COMMON NORMALS: mental status grossly normal, Normal thought process present, cooperative, normal affect and speech normal APPEARANCE: Yes well kempt ATTITUDE: Yes calm SPEECH: Yes normal speech THOUGHT PROCESS: Normal thought process present Skin: COMMON NORMALS: no rashes or lesions noted GENERAL SKIN EXAM: no rashes or lesions noted Course Vital Signs: Vital signs: Vital Signs Temperature 98.0 F 09/05/20 15:14 Pulse Rate 89 09/05/20 22:24 Respiratory Rate 18 09/05/20 22:24 Blood Pressure 147/71 09/05/20 15:14 Pulse Oximetry 96 09/05/20 22:24 MDM - Skin/Abscess/Foreign Bdy MDM Narrative: Medical decision making narrative: The patient came complaining of leaking blood around his right chest dialysis catheter. He goes Sunday and he lives at [place]. He refuses blood draws. Bandage was changed and pressure dressing applied. Discussed with Dr. Hernandez who recommended no intervention possibly holding the Plavix. Discussed with Dr. West who recommended holding the Plavix as well granted it has been over a year since his last stenting procedure. I placed a pressure dressing which did help slow the bleeding significantly and recommended holding Plavix for 5 days. He will be discharged AMA because he refused work-up. Discharge Plan Discharge Patient Disposition: Left Against Medical Advice Clinical Impression: Hemorrhage from dialysis catheter Condition: Stable Prescriptions: Held clopidogrel 75 mg Tablet 75 mg PO DAILY@0800 RF: 0 Hold Instructions: Resume on 09/10/20. HOld for 5 days. Resume if bleeding stops. call pcp if bleeding continues or ER with worsening bleeding. No Action acetaminophen 325 mg tablet 650 mg PO Q4H PRN (Reason: Pain) RF: 0 levetiracetam [Keppra] 500 mg Tablet 500 mg PO BID@799,1999 RF: 0 ascorbic acid (vitamin C) [Vitamin C] 500 mg Tablet 500 mg PO DAILY@08 RF: 0 pantoprazole 40 mg Tablet,Delayed Release (Dr/Ec) 40 mg PO BID@ RF: 0 hydrocodone-acetaminophen 5-325 mg Tablet 1 tab PO BID PRN (Reason: Pain) RF: 0 [place] Plus Cold+Flu 12.5-10-20-650 mg Powder In Packet 1 packet PO Q4H PRN (Reason: reflux) RF: 0 atorvastatin 40 mg Tablet 40 mg PO DAILY@1999 RF: 0 isosorbide mononitrate 30 mg Tablet Extended Release 24 Hr 30 mg PO DAILY@0800 RF: 0 amlodipine 5 mg Tablet 5 mg PO DAILY@0800 RF: 0 Aspir-81 81 mg Tablet,Delayed Release (Dr/Ec) 81 mg PO DAILY@0800 RF: 0 sevelamer carbonate 800 mg Tablet 800 mg PO TID@,, RF: 0 metoprolol tartrate 25 mg tablet 12.5 mg PO BID@799,1999 RF: 0 bisacodyl 10 mg Suppository 10 mg FL DAILY PRN (Reason: Constipation) RF: 0 vancomycin 1,000 mg recon soln 1,000 mg IV .q48 14 Days RF: 0 Referrals: Sajan Jack Jr, MD [Primary Care Provider] - Discharge Diet: Advance as tolerated Discharge Activity: Resume usual activity Patient Instructions: Hemodialysis (ED) Activity Restrictions/Additional Instructions: You have had some bleeding from your dialysis catheter likely related to your Plavix. Please hold it for 5 days and we have applied a pressure dressing which has improved the bleeding some. Please continue to have this dressed at the residential and return to the ER if the bleeding returns or worsens. Hold Plavix for 5 days and you may start it again after that. If bleeding resumes return to the ED. You are being discharged AMA because you refused blood draws and other testing. Coding Level of Care Code ED Top Collar Maker for Brandy Sanchez
== END 2020-09-05 22:10 | disposition left against medical advice (07) ==
PROVIDERS: Emergency Provider Family Medicine; PCP Family Medicine
DX: T82.838A Hemorrhage due to vascular prosthetic devices, implants and grafts, initial encounter (principal); Z53.21 Procedure and treatment not carried out due to patient leaving prior to being seen by health care provider; Z79.02 Long term (current) use of antithrombotics/antiplatelets; Z79.82 Long term (current) use of aspirin; I25.10 Atherosclerotic heart disease of native coronary artery without angina pectoris; I13.2 Hypertensive heart and chronic kidney disease with heart failure and with stage 5 chronic kidney disease, or end stage renal disease; E11.22 Type 2 diabetes mellitus with diabetic chronic kidney disease; N18.5 Chronic kidney disease, stage 5; I50.40 Unspecified combined systolic (congestive) and diastolic (congestive) heart failure; E11.42 Type 2 diabetes mellitus with diabetic polyneuropathy; Z95.1 Presence of aortocoronary bypass graft; Z89.511 Acquired absence of right leg below knee; Z87.891 Personal history of nicotine dependence
CPT/HCPCS: 71045; 93005; 99283

== ENCOUNTER 2020-09-10 16:59 | Outpatient (CLI) | payer MEDICARE, MEDICAID, SELFPAY ==
[2020-09-10 17:23] LABS: Basophils # 0.1 10^3/uL (0.0-0.1); Basophils % 1.3 %; Eosinophils # 0.3 10^3/uL (0.0-0.8); Eosinophils % 6.3 %; Hematocrit 21.4 % (42.0-52.0); Hemoglobin 6.7 g/dL (11.7-16.6); Lymphocytes # 1.3 10^3/uL (0.8-4.8); Lymphocytes % 27.8 %; Mean Corpuscular HGB Conc 31.3 g/dL (30.0-36.0); Mean Corpuscular Hemoglobin 30.6 pg (28.0-34.0); Mean Corpuscular Volume 97.7 fL (80-94); Mean Platelet Volume 10.1 fL (7.4-10.4); Monocytes # 0.5 10^3/uL (0.2-0.9); Monocytes % 10.5 %; Neutrophils # 2.53 10^3/uL (1.8-7.7); Neutrophils % 53.5 %; Nucleated Red Blood Cells % 0 %; Platelet Count 173 10^3/cmm (130-400); Red Blood Count 2.19 10^6/uL (4.1-5.3); Red Cell Distribution Width 17.5 % (12.1-15.1); White Blood Count 4.7 10^3/uL (4.0-10.0)
[2020-09-10 18:25] LABS: Ferritin 648 ng/mL (30-400); Iron 58 ug/dL (59-158); Percent Saturation 31.8 % (20-50); Total Iron Binding Capacity 182 mcg/dl; Unsaturated Iron Binding 124 ug/dL (112-347)
[2020-09-10 18:25] LABS: Vancomycin Trough 14.8 ug/mL (10-15)
[2020-09-10 18:39] LABS: 25 Hydroxy Vitamin D 48 ng/mL (30-100); Vitamin B12 390 pg/mL (232-1245)
== END 2020-09-10 17:00 | disposition home or self-care (01) ==
PROVIDERS: PCP Family Medicine; Visit Provider Internal Medicine Nephrology
DX: I10 Essential (primary) hypertension (principal)
CPT/HCPCS: 80202; 82306; 82607; 82728; 83540; 83550; 85025

== ENCOUNTER 2020-12-24 10:09 | Emergency (ER) | payer MEDICARE, SELFPAY ==
[2020-12-24 10:17] VITALS: BP 115/57; PULSE 60; RESP 18; TEMP 37.2; O2SAT 98; BMI 32.1
[2020-12-24 10:25] VITALS: O2SAT 97
--- NOTE | 2020-12-24 11:32 | XR_ITS ---
WS: [id number] Left foot, 3 views, 12/24/2020 Clinical Data: chronic foot wound Comparison: None. Findings: No fractures or dislocations are seen. No bone destruction or erosion is noted. The joint spaces and soft tissues are normal. There are calcifications in the esparza of small vessels. Diffuse demineralization of the bones of the left foot are seen. XR/XR foot LT min 3V* [id number] Impression: Diffuse demineralization of the left foot.
--- NOTE | 2020-12-24 11:47 | PC.PHAR ---
pt is from [facility] from [facility] states the pt had all his am meds
--- NOTE | 2020-12-24 11:47 | W.ED.GENADLT ---
HPI - General Adult General: Chief complaint: Wound/Laceration Stated complaint: worsening chronic wound Time Seen by Provider: 12/24/20 10:59 History of Present Illness: HPI narrative: Patient is a 70-year-old male with history of ESRD on dialysis Sunday/Sunday/Sunday, chronic wound infection, diabetes c/b BKA amputation, hypertension, CAD who presents the emergency room with worsening chronic right foot wound. Patient first noticed this wound 4 months ago. Patient has been chronically bedbound due to his amputation. Patient was transferred from correction for evaluation of the wound. Patient reports that he is getting daily wound care in the wound. There has not been increased drainage worsening pain, fever/chills. Patient has a history of ESBL infections in the past. No other focal complaints at this time. Onset: chronic Duration: ongoing Location:home Severity: moderate Review of Systems Narrative: Constitutional: No fever, no chills. HEENT: No vision changes CV: No chest pain, no palpitations PULM: no cough, no dyspnea. GI: No abdominal pain, no N/V/D. : No dysuria MSKEL: No muscle pain SKIN: +L foot chronic wound NEURO: No headache, no focal weakness. HEME: No visible bruises PSYCH: Normal mood PFSH ED PFSH: Medical History Anemia in CKD (chronic kidney disease) Atherosclerotic heart disease of [place] coronary artery without angina pectoris CHF (congestive heart failure) Chronic ulcer of ankle CKD (chronic kidney disease), stage V started hemodialysis 07/29/2020 Combined systolic and diastolic congestive heart failure Echo 08/04 demonstrates EF 35 to 40% COVID-19 (~01/2020) Diabetes mellitus History of ESBL E. coli infection Hypertension Multilevel degenerative disc disease has known hx of multilevel DJD, s/p spinal stimulator Peripheral neuropathy Polyneuropathy in other diseases classified elsewhere Seizure disorder Spinal cord stimulator status Spinal stenosis Type 2 diabetes mellitus Surgical History S/P CABG x 3 S/P dialysis catheter insertion (07/29/20) Giurgius S/P insertion of spinal cord stimulator Status post below knee amputation of right lower extremity Family History Mother Cancer Brother Lung disease Other Hyperlipidemia Hypertension Denies family history of Diabetes CAD (coronary artery disease) Clotting disorder Dementia Psychiatric illness Chronic kidney disease (CKD) Suicide Anesthesia complication Bleeding disorder Stroke Social History Alcohol intake: former Lives independently: No (Brother is his power of compliance attorney, recently has had to be involved in more decisions) Housing: Prison Physical Exam Narrative: EXAM NARRATIVE: Head: Atraumatic Eyes: PERRL, conjunctiva without injection ENT: Mucous membrane moist NECK: Supple, ROM intact LUNGS: LCTAB, no crackles/rhonchi, trialysis cathether in the R chest CV: RRR ABDOMEN: Soft, nontender in all quadrants EXTREMITY: Normal ROM SKIN: +L foot chronic decubitus wound without any drainage, R BKA amputation NEURO: Awake and alert, no focal motor deficits PSYCH: Normal mood and affect Course Vital Signs: Vital signs: Vital Signs Temperature 99 F 12/24/20 10:17 Pulse Rate 64 12/24/20 14:05 Respiratory Rate 16 12/24/20 14:05 Blood Pressure 135/61 12/24/20 14:05 Pulse Oximetry 95 12/24/20 14:05 MDM - General Adult MDM Narrative: Medical decision making narrative: 70-year-old male with a history of diabetes, right below-knee amputation, ESRD on dialysis Sunday with left foot wound who presents emergency room with chronic wound evaluation. On arrival, patient is afebrile, patient is noted to have nondraining granulating wound over the left palmar aspect. X-ray did not show any signs of osteomyelitis. CRP is elevated at 130. No white count. With elevated CRP, suspect that patient may have been mild underlying aerly infection. Will treat with outpatient Bactrim and Keflex. At the present time, I do not suspect any other source of infection which could explain the CRP of 130. I discussed finding with patient who agreed with me that he wants to take antibiotics at this time. Rx bactrim and cephalexin for infection Disposition: Discharge Lab Data: Labs: Lab Results 12/24/20 12/24/20 12/24/20 Range/Units 12:17 12:17 12:17 WBC 8.4 (4.0-10.0) 10^3/ uL RBC 3.05 L (4.1-5.3) 10^6/u L Hgb 9.9 L (11.7-16.6) g/dL Hct 31.6 L (42.0-52.0) % MCV 103.6 H (80-94) fl MCH 32.5 (28.0-34.0) pg MCHC 31.3 (30.0-36.0) g/dL RDW 12.0 L (12.1-15.1) % Plt Count 220 (130-400) 10^3/c mm MPV 10.3 (7.4-10.4) fL Neut % (Auto) 72.3 % Lymph % (Auto) 12.5 % [place] % (Auto) 13.3 % Eos % (Auto) 0.9 % Baso % (Auto) 0.6 % Neut # (Auto) 6.10 (1.8-7.7) 10^3/u L Lymph # (Auto) 1.1 (0.8-4.8) 10^3/u L [place] # (Auto) 1.1 H (0.2-0.9) 10^3/u L Eos # (Auto) 0.1 (0.0-0.8) 10^3/u L Baso # (Auto) 0.1 (0.0-0.1) 10^3/u L Nucleated RBC % (a uto) 0 % Nucleated RBCs # 0.0 /100WBC ESR Cancelled Sodium 137 (136-145) mmol/L Potassium 4.3 (3.5-5.1) mmol/L Chloride 96 L (98-107) mmol/L Carbon Dioxide 28 (22-29) mmol/L Anion Gap 17.3 (5-19) BUN 41 H (8-23) mg/dL Creatinine 4.0 H (0.7-1.2) mg/dL GFR Calculation Not Reportable Glucose 127 H (65-115) mg/dL Calculated Osmolal ity 296 H (285-295) mOsm/k g Calcium 8.8 (8.5-10.5) mg/dL C-Reactive Protein 131.0 H (0.0-4.9) mg/L 12/24/20 Range/Units 13:03 WBC (4.0-10.0) 10^3/ uL RBC (4.1-5.3) 10^6/u L Hgb (11.7-16.6) g/dL Hct (42.0-52.0) % MCV (80-94) fl MCH (28.0-34.0) pg MCHC (30.0-36.0) g/dL RDW (12.1-15.1) % Plt Count (130-400) 10^3/c mm MPV (7.4-10.4) fL Neut % (Auto) % Lymph % (Auto) % [place] % (Auto) % Eos % (Auto) % Baso % (Auto) % Neut # (Auto) (1.8-7.7) 10^3/u L Lymph # (Auto) (0.8-4.8) 10^3/u L [place] # (Auto) (0.2-0.9) 10^3/u L Eos # (Auto) (0.0-0.8) 10^3/u L Baso # (Auto) (0.0-0.1) 10^3/u L Nucleated RBC % (a uto) % Nucleated RBCs # /100WBC ESR 105 H Sodium (136-145) mmol/L Potassium (3.5-5.1) mmol/L Chloride (98-107) mmol/L Carbon Dioxide (22-29) mmol/L Anion Gap (5-19) BUN (8-23) mg/dL Creatinine (0.7-1.2) mg/dL GFR Calculation Glucose (65-115) mg/dL Calculated Osmolal ity (285-295) mOsm/k g Calcium (8.5-10.5) mg/dL C-Reactive Protein (0.0-4.9) mg/L Imaging Data^: Other Imaging: Radiologist's impression: [address] [id number] ReportSigned Patient: Moy Fernandez AUnit #: [id number]: 9Acct#:[id number]/Sex: 70 / MADM Date: 12/24/20Loc: ERRoom/Bed:Attending Dr: Ordering Provider/Ordering MD: Pascale De Leon MD Date of Service: 12/24/20 Procedure(s): XR foot LT min 3V* [id number] Accession Number(s): [id number] Report Number: [id number] WS: [id number] Left foot, 3 views, 12/24/2020 Clinical Data: chronic foot wound Comparison: None. Findings: No fractures or dislocations are seen. No bone destruction or erosion is noted. The joint spaces and soft tissues are normal. There are calcifications in the esparza of small vessels. Diffuse demineralization of the bones of the left foot are seen. XR/XR foot LT min 3V* [id number] Impression: Diffuse demineralization of the left foot. Dictated By:Mavis Newberry MDSigned By:Mavis Newberry MDSigned Date/Time:12/24/20 1155DD/ 1154 Discharge Plan Discharge Patient Disposition: Home Clinical Impression: Chronic wound of extremity Condition: Stable Prescriptions: New cephalexin 500 mg capsule 500 mg PO BID 7 Days Qty: 14 RF: 0 Bactrim DS 800-160 mg tablet 1 tab PO BID 7 Days Qty: 14 RF: 0 No Action levetiracetam [Keppra] 500 mg Tablet 500 mg PO BID@0800,1999 RF: 0 ascorbic acid (vitamin C) [Vitamin C] 500 mg Tablet 500 mg PO DAILY@0800 RF: 0 pantoprazole 40 mg Tablet,Delayed Release (Dr/Ec) 40 mg PO DAILY@08 RF: 0 [place] Plus Cold+Flu 12.5-10-20-650 mg Powder In Packet 1 packet PO Q4H PRN (Reason: reflux) RF: 0 atorvastatin 40 mg Tablet 40 mg PO DAILY@1999 RF: 0 isosorbide mononitrate 30 mg Tablet Extended Release 24 Hr 30 mg PO DAILY@0800 RF: 0 clopidogrel 75 mg Tablet 75 mg PO DAILY@0800 RF: 0 Hold Instructions: Resume on 09/10/20. HOld for 5 days. Resume if bleeding stops. call pcp if bleeding continues or ER with worsening bleeding. amlodipine 5 mg Tablet 5 mg PO DAILY@0800 RF: 0 aspirin [Aspir-81] 81 mg Tablet,Delayed Release (Dr/Ec) 81 mg PO DAILY@0800 RF: 0 sevelamer carbonate 800 mg Tablet 800 mg PO TID@,, RF: 0 metoprolol tartrate 25 mg tablet 12.5 mg PO BID@0800,1999 RF: 0 acetaminophen 650 mg Tablet Extended Release 650 mg PO Q4H MDD 3,000 mg PRN (Reason: Pain) RF: 0 Santyl 250 unit/gram Ointment 1 applic TOPICAL DAILY RF: 0 Voltaren 1 % Gel 2 - 4 g TOPICAL BID@, RF: 0 morphine concentrate 20 mg/mL Syringe See Rx Instructions .ROUTE .COMPLEX RF: 0 Cough Drops See Rx Instructions .ROUTE .COMPLEX RF: 0 Pro Stat Nutritional 15 ml PO BID@, RF: 0 Entresto 24-26 mg tablet 1 tab PO BID@, RF: 0 bisacodyl 10 mg Suppository 10 mg LA DAILY PRN (Reason: Constipation) RF: 0 Discharge Orders: Discharge ED (Routine); Ordered 12/24/20 Ordered By: Pascale De Leon Referrals: Sajan Jack Jr, MD [Primary Care Provider] - Discharge Diet: Advance as tolerated Discharge Activity: Resume usual activity Patient Instructions: Wound Care (General) Activity Restrictions/Additional Instructions: Please take the antibiotics as instructed for your wound. Come back to the emergency room you have any sensations of fever/chills, nausea vomiting, diarrhea or any other issues. Please follow-up with podiatry for further evaluation of your wound. Coding Level of Care Code ED Workflow Developer for Brandy Sanchez
[2020-12-24 12:31] LABS: Basophils # 0.1 10^3/uL (0.0-0.1); Basophils % 0.6 %; Eosinophils # 0.1 10^3/uL (0.0-0.8); Eosinophils % 0.9 %; Hematocrit 31.6 % (42.0-52.0); Hemoglobin 9.9 g/dL (11.7-16.6); Lymphocytes # 1.1 10^3/uL (0.8-4.8); Lymphocytes % 12.5 %; Mean Corpuscular HGB Conc 31.3 g/dL (30.0-36.0); Mean Corpuscular Hemoglobin 32.5 pg (28.0-34.0); Mean Corpuscular Volume 103.6 fl (80-94); Mean Platelet Volume 10.3 fL (7.4-10.4); Monocytes # 1.1 10^3/uL (0.2-0.9); Monocytes % 13.3 %; Neutrophils % 72.3 %; Nucleated Red Blood Cells % 0 %; Platelet Count 220 10^3/cmm (130-400); Red Blood Count 3.05 10^6/uL (4.1-5.3); White Blood Count 8.4 10^3/uL (4.0-10.0)
[2020-12-24 12:45] LABS: Slide Review Slide Review Perform
[2020-12-24 12:47] LABS: Blood Urea Nitrogen 41 mg/dL (8-23); Calcium 8.8 mg/dL (8.5-10.5); Carbon Dioxide 28 mmol/L (22-29); Chloride 96 mmol/L (98-107); Glucose 127 mg/dL (65-115); Osmolality Calculated 296 mOsm/kg (285-295); Sodium 137 mmol/L (136-145)
[2020-12-24 12:49] LABS: Anion Gap 17.3 (5-19); Potassium 4.3 mmol/L (3.5-5.1)
[2020-12-24 14:05] VITALS: BP 135/61; PULSE 64; RESP 16; O2SAT 95
[2020-12-24 14:06] LABS: Erythrocyte Sedimentation Rate 105 mm/hr (0-10)
--- NOTE | 2020-12-27 09:13 | DCPLANNER ---
Addendum entered by Jeanne Meyers 12/27/20 09:37: Lizett from the ortho clinic called case making machine operator and told case making machine operator that after review of patients chart that patient would need to follow up with Wound Care. Original Note: manager domestic had message to schedule a follow up appointment for patient with Wound Care and ortho. manager domestic called the ortho clinic, spoke with Lizett, gave clinic patients information. manager domestic was told that patients information would be printed and reviewed. Clinic will call patient with appointment information. manager domestic did inform clinic that patient is a resident at [facility]. manager domestic called the Wound Care clinic, spoke with Ashlyn, gave clinic patients information. A follow up appointment was scheduled for Sunday, January 03, [address] at 2:[address] Navas. manager domestic called [facility] and gave the nursing facility the appointment information.
--- NOTE | 2021-01-06 09:32 | DCPLANNER ---
Patient had a follow up appointment scheduled with Wound Care - assisted cancelled appointment.
== END 2020-12-24 14:44 | disposition home or self-care (01) ==
PROVIDERS: Emergency Provider Emergency Medicine; PCP Family Medicine
DX: S91.301A Unspecified open wound, right foot, initial encounter (principal); X58.XXXA Exposure to other specified factors, initial encounter; Z79.02 Long term (current) use of antithrombotics/antiplatelets; Z79.82 Long term (current) use of aspirin; E11.22 Type 2 diabetes mellitus with diabetic chronic kidney disease; I13.2 Hypertensive heart and chronic kidney disease with heart failure and with stage 5 chronic kidney disease, or end stage renal disease; I50.9 Heart failure, unspecified; N18.6 End stage renal disease; I25.10 Atherosclerotic heart disease of native coronary artery without angina pectoris; E11.42 Type 2 diabetes mellitus with diabetic polyneuropathy; Z95.1 Presence of aortocoronary bypass graft; Z89.511 Acquired absence of right leg below knee; Z99.2 Dependence on renal dialysis
CPT/HCPCS: 36415; 73630; 80048; 85025; 85651; 86140; 99283

== ENCOUNTER 2020-12-27 17:29 | Inpatient (IN) | payer MEDICARE, MEDICAID, SELFPAY ==
[2020-12-27] VITALS (9 sets, daily range): BP systolic 97–156; BP diastolic 50–74; PULSE 79–105; RESP 18–22; TEMP 36.8–37.7; O2SAT 99–100; BMI 30.9
--- NOTE | 2020-12-27 17:41 | XRR_ITS ---
PROCEDURE INFORMATION: Exam: XR Chest Exam date and time: 12/27/2020 5:41 PM Age: 70 years old Clinical indication: Shortness of breath; Prior surgery; Surgery type: Dialysis cath; Additional info: Light-headedness post dialysis TECHNIQUE: Imaging protocol: XR of the chest. Views: 1 view. COMPARISON: CR XR chest 1V portable [id number] 09/05/2020 3:38 PM FINDINGS: Tubes, catheters and devices: Right central line terminates in the proximal right atrium. Spinal stimulator leads seen terminating within the midthoracic spine. Lungs: Hypoinflated lungs. No consolidation. Pleural spaces: Unremarkable. No pleural effusion. No pneumothorax. Heart/Mediastinum: Post CABG changes with sternotomy wires. Similar mild cardiomegaly. Bones/joints: Visualized osseous structures appear intact. XR/XR chest 1V portable [id number] IMPRESSION: No acute findings.
--- NOTE | 2020-12-27 17:42 | CTR_ITS ---
PROCEDURE INFORMATION: Exam: CT Head Without Contrast Exam date and time: 12/27/2020 5:42 PM Age: 70 years old Clinical indication: Altered mental status/memory loss; Patient HX: Scanned in large body due to patient condition; Additional info: AMS TECHNIQUE: Imaging protocol: Computed tomography of the head without contrast. Radiation optimization: All CT scans at this facility use at least one of these dose optimization techniques: automated exposure control; mA and/or kV adjustment per patient size (includes targeted exams where dose is matched to clinical indication); or iterative reconstruction. COMPARISON: CT head wo con* [id number] 08/23/2020 9:15 AM RADIATION DOSE METRICS: Total DLP (mGy-cm): 786.46 FINDINGS: Brain: No hemorrhage. Mild diffuse cerebral atrophy and sequela of chronic small vessel ischemic disease. No mass effect. Cerebral ventricles: No ventriculomegaly. Paranasal sinuses: Opacified right maxillary sinus. The rest of the paranasal sinuses are well pneumatized. Mastoid air cells: Visualized mastoid air cells are well aerated. Bones/joints: Unremarkable. No acute fracture. Soft tissues: Unremarkable. Other findings: Please note, suboptimal positioning due to altered mental status. CT/CT head wo con* [id number] IMPRESSION: 1. No acute intracranial abnormality. 2. Mild diffuse cerebral atrophy and sequela of chronic small vessel ischemic disease. 3. Opacified right maxillary sinus. Radiation Dose CTDIVOL = (mGy): DLP = 786.46 (mGy-cm)
--- NOTE | 2020-12-27 17:59 | PC.PHAR ---
PT UNABLE TO CONFIRM MEDICATIONS. RIGHT NOW I AM GOING BY A MED LIST FROM HEMODIALYSIS BECAUSE THAT IS ALL I HAVE TO GO BY. THERE IS NO FAMILY CLOSE THAT I CAN CALL AND I DON'T KNOW WHERE HE CAME FROM AT THIS TIME.
[2020-12-27 18:01] LABS: Glucose Point of Care 179 mg/dL (70-110)
--- NOTE | 2020-12-27 18:45 | ED_ITS ---
HPI - General Adult General: Chief complaint: Altered Mental Status Stated complaint: HYPOXIC Time Seen by Provider: 12/27/20 17:35 History of Present Illness: HPI narrative: CC: AMS HPI: [70]yo patient w/ hx of ESRD on dialysis MWAlmaz R VARINDERA brought NOVAA for al tered mental status after dialysis at 4:30pm. Post-dialysis, patient was confused, nonverbal and leaning toward his left. En route, POC glucose of 180. Patient had a BP of 90/50, HR 110s in en route. In the ED, patient is moving his arms but not responsive to verbal stimuli. GCS of 12 on arrival. Onset: 2 hr s ago Duration: ongoing, unclear duration Location: home Severity: severe Review of Systems Narrative: REVIEW OF SYSTEMS unable to obtain due to current cognitive status [facility] ED PFSH: Medical History Anemia in CKD (chronic kidney disease) Atherosclerotic heart disease of [place] coronary artery without angina pectoris CHF (congestive heart failure) Chronic ulcer of ankle CKD (chronic kidney disease), stage V started hemodialysis 07/29/2020 Combined systolic and diastolic congestive heart failure Echo 08/04 demonstrates EF 35 to 40% COVID-19 (~01/2020) Diabetes mellitus History of ESBL E. coli infection Hypertension Multilevel degenerative disc disease has known hx of multilevel DJD, s/p spinal stimulator Peripheral neuropathy Polyneuropathy in other diseases classified elsewhere Seizure disorder Spinal cord stimulator status Spinal stenosis Type 2 diabetes mellitus Surgical History S/P CABG x 3 S/P dialysis catheter insertion (07/29/20) Giurgius S/P insertion of spinal cord stimulator Status post below knee amputation of right lower extremity Family History Mother Cancer Brother Lung disease Other Hyperlipidemia Hypertension Denies family history of Diabetes CAD (coronary artery disease) Clotting disorder Dementia Psychiatric illness Chronic kidney disease (CKD) Suicide Anesthesia complication Bleeding disorder Stroke Social History Alcohol intake: former Lives independently: No (Brother is 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 power of cafe manager, recently has had to be involved in more decisions) Housing: [facility] Physical Exam Narrative: EXAM NARRATIVE: Head: Atraumatic Eyes: PERRL, conjunctiva without injection ENT: Mucous membrane moist NECK: Supple without lymphadenopathy LUNGS: LCTAB, dialysis cather in the R chest CV: Sinus tachycardia ABDOMEN: Soft, nontender EXTREMITY: Normal ROM SKIN: +stage 4 sacral decubitis w/ eschar in the L foot, R BKA NEURO: Unable to assess, awake but not alert, moving all extremities PSYCH: Unable to assess at this time Course Vital Signs: Vital signs: Vital Signs Temperature 98.5 F 12/28/20 15:29 Pulse Rate 63 12/28/20 15:29 Respiratory Rate 17 12/28/20 15:29 Blood Pressure 103/58 12/28/20 15:29 Pulse Oximetry 96 12/28/20 15:29 MDM - General Adult MDM Narrative: Medical decision making narrative: [70]yo patient w/ hx of ESRD on dialysis MWF BIBA for AMS post dialyiss +Sluggish behavior, unable to follow commands, moving all extremites. Mildly tachycardic on arrival. Airway maintained. No signs of trauma including bruises, hematoma, lacerations, or basilar skull fracture. No increased work of breathing or tachypnea on presentation, no suspicion for toxic alcohol vs ASA overdose vs DKA. DDx broad including intracranial injuries, metabolic phenomenon, substance intoxication/withdrawal, and sepsis. Toxidrome Findings: Negative. No rigidity or clonus of LE ankle/knee reflexes, no diaphoresis, pupils mid-ranged equal and reactive to light, no signs of track andrade/body patches, normal bowel sounds, and bladder non-palpable/ non- distended. POC Glucose: 179 in the ED EKG: EKG: Normal Sinus Rhythm RR of 99. No overt ischemic findings and no prolongation of QTc or QRS intervals. No signs of hyperkalemia (peaked T waves, QRS widening, and UT prolongation) Workup: CBC, CMP, magnesium, EKG, troponin, XR chest, CT brain [8:30pm] On reassessment, to be altered. CT brain do not show any focal finding. Report is noted to be elevated consistent with baseline. Given history of ESBL infection, patient will be admitted to hospital for altered mental status and possible infection. Gavin was discussed with nephrology who does not think that patient has post dialysis disequilibrium syndrome. No suspicion for stroke since patient is moving all extremities. Disposition: Admission for AMS Lab Data: Labs: Lab Results 12/27/20 12/27/20 12/27/20 Range/Units 17:57 18:25 18:25 WBC (4.0-10.0) 10^3/ uL RBC (4.1-5.3) 10^6/u L Hgb (11.7-16.6) g/dL Hct (42.0-52.0) % MCV (80-94) fl MCH (28.0-34.0) pg MCHC (30.0-36.0) g/dL RDW (12.1-15.1) % Plt Count (130-400) 10^3/c mm MPV (7.4-10.4) fL Neut % (Auto) % Lymph % (Auto) % Major % (Auto) % Eos % (Auto) % Baso % (Auto) % Neut # (Auto) (1.8-7.7) 10^3/u L Lymph # (Auto) (0.8-4.8) 10^3/u L Major # (Auto) (0.2-0.9) 10^3/u L Eos # (Auto) (0.0-0.8) 10^3/u L Baso # (Auto) (0.0-0.1) 10^3/u L Nucleated RBC % (a uto) % Nucleated RBCs # /100WBC ESR (0-10) mm/hr PT Cancelled INR Cancelled APTT Cancelled Sodium Cancelled Potassium Cancelled Chloride Cancelled Carbon Dioxide Cancelled Anion Gap Cancelled BUN Cancelled Creatinine Cancelled GFR Calculation Cancelled Glucose Cancelled POC Glucose 179 H (70-110) mg/dL Estimat Average Gl ucose Hemoglobin A1c (4.0-6.0) % Calculated Osmolal ity Cancelled Calcium Cancelled Total Bilirubin Cancelled AST Cancelled ALT Cancelled Alkaline Phosphata se Cancelled Creatine Kinase (39-308) U/L Troponin T Baselin e (0-15) ng/L Troponin T 120 Min [place] (0-15) ng/L Delta Troponin T (0-10) ABS# C-Reactive Protein (0.0-4.9) mg/L NT-Pro-B Natriuret Pep (0-125) pg/mL Total Protein Cancelled Albumin Cancelled Globulin Cancelled Lipase Cancelled Procalcitonin (0-0.5) ng/mL Urine Color (Yellow) Urine Appearance (CLEAR) Urine pH (5-7) Ur Specific Gravit y (1.005-1.030) Urine Protein (Negative) Urine Glucose (UA) (Normal) Urine Ketones (Negative) Urine Blood (Negative) Urine Nitrate (Negative) Urine Bilirubin (Negative) Urine Urobilinogen (Negative) mg/dL Ur Leukocyte Nadege ase (Negative) Urine RBC (0-2) /hpf Urine WBC (0-5) /hpf Ur Squamous Epith Cells (0-5) /hpf Amorphous Sediment Urine Bacteria (NONE) /hpf 12/27/20 12/27/20 12/27/20 Range/Units 18:25 19:01 19:01 WBC 9.2 (4.0-10.0) 10^3/ uL RBC 3.07 L (4.1-5.3) 10^6/u L Hgb 9.8 L (11.7-16.6) g/dL Hct 29.9 L (42.0-52.0) % MCV 97.4 H (80-94) fl MCH 31.9 (28.0-34.0) pg MCHC 32.8 (30.0-36.0) g/dL RDW 12.3 (12.1-15.1) % Plt Count 197 (130-400) 10^3/c mm MPV 9.9 (7.4-10.4) fL Neut % (Auto) 88.4 % Lymph % (Auto) 3.8 % Major % (Auto) 7.1 % Eos % (Auto) 0.0 % Baso % (Auto) 0.3 % Neut # (Auto) 8.11 H (1.8-7.7) 10^3/u L Lymph # (Auto) 0.4 L (0.8-4.8) 10^3/u L Major # (Auto) 0.7 (0.2-0.9) 10^3/u L Eos # (Auto) 0.0 (0.0-0.8) 10^3/u L Baso # (Auto) 0.0 (0.0-0.1) 10^3/u L Nucleated RBC % (a uto) 0 % Nucleated RBCs # 0.0 /100WBC ESR (0-10) mm/hr PT 15.50 H INR 1.20 APTT 32.5 Sodium Potassium Chloride Carbon Dioxide Anion Gap BUN Creatinine GFR Calculation Glucose Cancelled POC Glucose (70-110) mg/dL Estimat Average Gl ucose Hemoglobin A1c (4.0-6.0) % Calculated Osmolal ity Calcium Total Bilirubin AST ALT Alkaline Phosphata se Creatine Kinase (39-308) U/L Troponin T Baselin e (0-15) ng/L Troponin T 120 Min [place] (0-15) ng/L Delta Troponin T (0-10) ABS# C-Reactive Protein (0.0-4.9) mg/L NT-Pro-B Natriuret Pep (0-125) pg/mL Total Protein Albumin Globulin Lipase Procalcitonin (0-0.5) ng/mL Urine Color (Yellow) Urine Appearance (CLEAR) Urine pH (5-7) Ur Specific Gravit y (1.005-1.030) Urine Protein (Negative) Urine Glucose (UA) (Normal) Urine Ketones (Negative) Urine Blood (Negative) Urine Nitrate (Negative) Urine Bilirubin (Negative) Urine Urobilinogen (Negative) mg/dL Ur Leukocyte Nadege ase (Negative) Urine RBC (0-2) /hpf Urine WBC (0-5) /hpf Ur Squamous Epith Cells (0-5) /hpf Amorphous Sediment Urine Bacteria (NONE) /hpf 12/27/20 12/27/20 12/27/20 Range/Units 19:01 19:01 19:01 WBC (4.0-10.0) 10^3/ uL RBC (4.1-5.3) 10^6/u L Hgb (11.7-16.6) g/dL Hct (42.0-52.0) % MCV (80-94) fl MCH (28.0-34.0) pg MCHC (30.0-36.0) g/dL RDW (12.1-15.1) % Plt Count (130-400) 10^3/c mm MPV (7.4-10.4) fL Neut % (Auto) % Lymph % (Auto) % Major % (Auto) % Eos % (Auto) % Baso % (Auto) % Neut # (Auto) (1.8-7.7) 10^3/u L Lymph # (Auto) (0.8-4.8) 10^3/u L Major # (Auto) (0.2-0.9) 10^3/u L Eos # (Auto) (0.0-0.8) 10^3/u L Baso # (Auto) (0.0-0.1) 10^3/u L Nucleated RBC % (a uto) % Nucleated RBCs # /100WBC ESR (0-10) mm/hr PT INR APTT Sodium 136 Potassium 4.8 Chloride 93 L Carbon Dioxide 27 Anion Gap 20.8 H BUN 24 H Creatinine 2.9 H GFR Calculation Not Reportable Glucose 175 H POC Glucose (70-110) mg/dL Estimat Average Gl ucose Hemoglobin A1c (4.0-6.0) % Calculated Osmolal ity 290 Calcium 8.2 L Total Bilirubin 0.3 AST 27 ALT 24 Alkaline Phosphata se 63 Creatine Kinase 293 (39-308) U/L Troponin T Baselin e 426 H* (0-15) ng/L Troponin T 120 Min [place] (0-15) ng/L Delta Troponin T (0-10) ABS# C-Reactive Protein 145.2 H (0.0-4.9) mg/L NT-Pro-B Natriuret Pep 80321 H (0-125) pg/mL Total Protein 6.6 Albumin 3.5 Globulin 3.1 Lipase 21 Procalcitonin 14.96 H (0-0.5) ng/mL Urine Color (Yellow) Urine Appearance (CLEAR) Urine pH (5-7) Ur Specific Gravit y (1.005-1.030) Urine Protein (Negative) Urine Glucose (UA) (Normal) Urine Ketones (Negative) Urine Blood (Negative) Urine Nitrate (Negative) Urine Bilirubin (Negative) Urine Urobilinogen (Negative) mg/dL Ur Leukocyte Nadege ase (Negative) Urine RBC (0-2) /hpf Urine WBC (0-5) /hpf Ur Squamous Epith Cells (0-5) /hpf Amorphous Sediment Urine Bacteria (NONE) /hpf 12/27/20 12/27/20 12/27/20 Range/Units 19:01 19:46 19:46 WBC (4.0-10.0) 10^3/ uL RBC (4.1-5.3) 10^6/u L Hgb (11.7-16.6) g/dL Hct (42.0-52.0) % MCV (80-94) fl MCH (28.0-34.0) pg MCHC (30.0-36.0) g/dL RDW (12.1-15.1) % Plt Count (130-400) 10^3/c mm MPV (7.4-10.4) fL Neut % (Auto) % Lymph % (Auto) % Major % (Auto) % Eos % (Auto) % Baso % (Auto) % Neut # (Auto) (1.8-7.7) 10^3/u L Lymph # (Auto) (0.8-4.8) 10^3/u L Major # (Auto) (0.2-0.9) 10^3/u L Eos # (Auto) (0.0-0.8) 10^3/u L Baso # (Auto) (0.0-0.1) 10^3/u L Nucleated RBC % (a uto) % Nucleated RBCs # /100WBC ESR 97 H (0-10) mm/hr PT INR APTT Sodium Potassium Chloride Carbon Dioxide Anion Gap BUN Creatinine GFR Calculation Glucose POC Glucose (70-110) mg/dL Estimat Average Gl ucose 114 Hemoglobin A1c 5.6 (4.0-6.0) % Calculated Osmolal ity Calcium Total Bilirubin AST ALT Alkaline Phosphata se Creatine Kinase (39-308) U/L Troponin T Baselin e (0-15) ng/L Troponin T 120 Min [place] 412.4 H (0-15) ng/L Delta Troponin T -13.6 L (0-10) ABS# C-Reactive Protein (0.0-4.9) mg/L NT-Pro-B Natriuret Pep (0-125) pg/mL Total Protein Albumin Globulin Lipase Procalcitonin (0-0.5) ng/mL Urine Color (Yellow) Urine Appearance (CLEAR) Urine pH (5-7) Ur Specific Gravit y (1.005-1.030) Urine Protein (Negative) Urine Glucose (UA) (Normal) Urine Ketones (Negative) Urine Blood (Negative) Urine Nitrate (Negative) Urine Bilirubin (Negative) Urine Urobilinogen (Negative) mg/dL Ur Leukocyte Nadege ase (Negative) Urine RBC (0-2) /hpf Urine WBC (0-5) /hpf Ur Squamous Epith Cells (0-5) /hpf Amorphous Sediment Urine Bacteria (NONE) /hpf 12/27/20 Range/Units 20:33 WBC (4.0-10.0) 10^3/ uL RBC (4.1-5.3) 10^6/u L Hgb (11.7-16.6) g/dL Hct (42.0-52.0) % MCV (80-94) fl MCH (28.0-34.0) pg MCHC (30.0-36.0) g/dL RDW (12.1-15.1) % Plt Count (130-400) 10^3/c mm MPV (7.4-10.4) fL Neut % (Auto) % Lymph % (Auto) % Major % (Auto) % Eos % (Auto) % Baso % (Auto) % Neut # (Auto) (1.8-7.7) 10^3/u L Lymph # (Auto) (0.8-4.8) 10^3/u L Major # (Auto) (0.2-0.9) 10^3/u L Eos # (Auto) (0.0-0.8) 10^3/u L Baso # (Auto) (0.0-0.1) 10^3/u L Nucleated RBC % (a uto) % Nucleated RBCs # /100WBC ESR (0-10) mm/hr PT INR APTT Sodium Potassium Chloride Carbon Dioxide Anion Gap BUN Creatinine GFR Calculation Glucose POC Glucose (70-110) mg/dL Estimat Average Gl ucose Hemoglobin A1c (4.0-6.0) % Calculated Osmolal ity Calcium Total Bilirubin AST ALT Alkaline Phosphata se Creatine Kinase (39-308) U/L Troponin T Baselin e (0-15) ng/L Troponin T 120 Min [place] (0-15) ng/L Delta Troponin T (0-10) ABS# C-Reactive Protein (0.0-4.9) mg/L NT-Pro-B Natriuret Pep (0-125) pg/mL Total Protein Albumin Globulin Lipase Procalcitonin (0-0.5) ng/mL Urine Color Yellow (Yellow) Urine Appearance Cloudy (CLEAR) Urine pH 6.5 (5-7) Ur Specific Gravit y 1.010 (1.005-1.030) Urine Protein 2+ H (Negative) Urine Glucose (UA) Norm (Normal) Urine Ketones Negative (Negative) Urine Blood 3+ H (Negative) Urine Nitrate Negative (Negative) Urine Bilirubin Neg (Negative) Urine Urobilinogen Norm (Negative) mg/dL Ur Leukocyte Nadege ase 2+ H (Negative) Urine RBC 0-4 H (0-2) /hpf Urine WBC Too numerous to c nt H (0-5) /hpf Ur Squamous Epith Cells 0-4 H (0-5) /hpf Amorphous Sediment Not Reportable Urine Bacteria 1+ H (NONE) /hpf Imaging Data^: Other Imaging: Radiologist's impression: [address] [place], [place] [address]e.[place], [place] [address]MSiu ReportSigned Patient: Moy Fernandez AUnit #: [id number]: [id number]#:[id number]/Sex: 70 / MADM Date: 12/27/20Loc: ERRoom/Bed:Attending Dr: Ordering Provider/Ordering MD: Pascale De Leon MD Date of Service: 12/27/20 Procedure(s): XR chest 1V portable [id number] Accession Number(s): [id number] Report Number: [id number] PROCEDURE INFORMATION: Exam: XR Chest Exam date and time: 12/27/2020 5:41 PM Age: 70 years old Clinical indication: Shortness of breath; Prior surgery; Surgery type: Dialysis cath; Additional info: Light-headedness post dialysis TECHNIQUE: Imaging protocol: XR of the chest. Views: 1 view. COMPARISON: CR XR chest 1V portable [id number] 09/05/2020 3:38 PM FINDINGS: Tubes, catheters and devices: Right central line terminates in the proximal right atrium. Spinal stimulator leads seen terminating within the midthoracic spine. Lungs: Hypoinflated lungs. No consolidation. Pleural spaces: Unremarkable. No pleural effusion. No pneumothorax. Heart/Mediastinum: Post CABG changes with sternotomy wires. Similar mild cardiomegaly. Bones/joints: Visualized osseous structures appear intact. XR/XR chest 1V portable [id number] IMPRESSION: No acute findings. Dictated By:Waylon Herbert DOSigned By:Waylon Herbert DOSigned Date/Time:12/27/201848DD/ [address] [facility] [place], [place] [address]QM Scan ReportSigned Patient: Moy Fernandez AUnit #: [id number]: [id number]#:[id number]/Sex: 70 / MADM Date: 12/27/20Loc: ERRoom/Bed:Attending Dr: Ordering Provider/Ordering MD: Pascale De Leon MD Date of Service: 12/27/20 Procedure(s): CT head wo con* [id number] Accession Number(s): [id number] Report Number: [id number] PROCEDURE INFORMATION: Exam: CT Head Without Contrast Exam date and time: 12/27/2020 5:42 PM Age: 70 years old Clinical indication: Altered mental status/memory loss; Patient HX: Scanned in large body due to patient condition; Additional info: AMS TECHNIQUE: Imaging protocol: Computed tomography of the head without contrast. Radiation optimization: All CT scans at this facility use at least one of these dose optimization techniques: automated exposure control; mA and/or kV adjustment per patient size (includes targeted exams where dose is matched to clinical indication); or iterative reconstruction. COMPARISON: CT head wo con* [id number] 08/23/2020 9:15 AM RADIATION DOSE METRICS: Total DLP (mGy-cm): 786.46 FINDINGS: Brain: No hemorrhage. Mild diffuse cerebral atrophy and sequela of chronic small vessel ischemic disease. No mass effect. Cerebral ventricles: No ventriculomegaly. Paranasal sinuses: Opacified right maxillary sinus. The rest of the paranasal sinuses are well pneumatized. Mastoid air cells: Visualized mastoid air cells are well aerated. Bones/joints: Unremarkable. No acute fracture. Soft tissues: Unremarkable. Other findings: Please note, suboptimal positioning due to altered mental status. CT/CT head wo con* [id number] IMPRESSION: 1. No acute intracranial abnormality. 2. Mild diffuse cerebral atrophy and sequela of chronic small vessel ischemic disease. 3. Opacified right maxillary sinus. Radiation Dose CTDIVOL = (mGy): DLP = 786.46 (mGy-cm) Dictated By:Waylon Herbert DOSigned By:Waylon Herbert DOSigned Date/Time:12/27/204DD/ 52 Discharge Plan Discharge Patient Disposition: Admitted As Inpatient Admit Provider: Hira Ruiz Clinical Impression: Altered mental status, Elevated troponin, Decubitus ulcer Condition: Stable Coding Level of Care Code ED Civil Cadd Technician for Brandy Sanchez
--- NOTE | 2020-12-27 18:50 | ECG_ITS ---
[facility] Test Date: 2020-12-27 Pat Name: Moy Fernandez Department: Room: Gender: Male Pleater: : 1950 Requested By: Pascale De Leon Order Number: [id number] Hal MD: Angeles Khan M.D. Measurements Intervals Groom Rate: 99 P: -62 WY: 116 QRS: 4 QRSD: 110 T: 60 QT: 364 QTc: 469 Interpretive Statements Possible sinus tachycardia POSSIBLE LEFT ATRIAL ENLARGEMENT [-0.1mV P-WAVE IN V1/V2] MINIMAL ST DEPRESSION [0.025+ mV ST DEPRESSION] ABNORMAL RHYTHM ECG Compared to ECG 09/05/2020 16:29:56 Sinus bradycardia no longer present Prolonged QT interval no longer present ST (T wave) deviation still present Electronically Signed On 12-28-2020 23:10:19 CDT by Angeles Khan M.D. [id number]
[2020-12-27] MEDS: sodium chloride 0.9% 250 ML IV (19:10)
[2020-12-27 19:21] LABS: Partial Thromboplastin Time 32.5 SECONDS (23.9-36.7)
[2020-12-27 19:24] LABS: Basophils % 0.3 %; Hematocrit 29.9 % (42.0-52.0); Hemoglobin 9.8 g/dL (11.7-16.6); Lymphocytes # 0.4 10^3/uL (0.8-4.8); Lymphocytes % 3.8 %; Mean Corpuscular HGB Conc 32.8 g/dL (30.0-36.0); Mean Corpuscular Hemoglobin 31.9 pg (28.0-34.0); Mean Corpuscular Volume 97.4 fl (80-94); Mean Platelet Volume 9.9 fL (7.4-10.4); Monocytes # 0.7 10^3/uL (0.2-0.9); Monocytes % 7.1 %; Neutrophils # 8.11 10^3/uL (1.8-7.7); Neutrophils % 88.4 %; Nucleated Red Blood Cells % 0 %; Platelet Count 197 10^3/cmm (130-400); Red Blood Count 3.07 10^6/uL (4.1-5.3); Red Cell Distribution Width 12.3 % (12.1-15.1); White Blood Count 9.2 10^3/uL (4.0-10.0)
[2020-12-27 19:27] LABS: Alanine Aminotransferase 24 U/L (0-41); Albumin Level 3.5 g/dL (3.5-5.2); Alkaline Phosphatase 63 IU/L (40-130); Aspartate Amino Transferase 27 U/L (0-40); Blood Urea Nitrogen 24 mg/dL (8-23); Calcium 8.2 mg/dL (8.5-10.5); Carbon Dioxide 27 mmol/L (22-29); Chloride 93 mmol/L (98-107); Globulin 3.1 g/dL (1.3-4.6); Glucose 175 mg/dL (65-115); Lipase 21 U/L (13-60); Osmolality Calculated 290 mOsm/kg (285-295); Sodium 136 mmol/L (136-145); Total Bilirubin 0.3 mg/dL (0.15-1.2); Total Protein 6.6 g/dL (6.6-8.7)
[2020-12-27 19:30] LABS: Anion Gap 20.8 (5-19); Potassium 4.8 mmol/L (3.5-5.1)
[2020-12-27 19:46] LABS: Troponin(5th) Baseline 426 ng/L (0-15)
[2020-12-27 20:46] LABS: Troponin 5 2HR 412.4 ng/L (0-15); Troponin 5 2HR Delta -13.6 ABS# (0-10)
[2020-12-27] MEDS: vancomycin 1,000 MG in sodium chloride 0.9% 250 ML 250 MG IV (21:08)
[2020-12-27] MEDS: cefTRIAXone 1,000 MG in lidocaine 1% 2.1 ML 2.1 MG IM (21:08)
[2020-12-27 21:15] LABS: Add Urine Culture? Yes; Add Urine Microscopic? YES; Bacteria Urine 1+ /hpf; Bilirubin Urine Neg (Negative); Blood Urine 3+ (Negative); Glucose Urine UA Norm (Normal); Ketones Urine Negative (Negative); Leukocyte Esterase Urine 2+ (Negative); Nitrate Urine Negative (Negative); Protein Urine 2+ (Negative); RBC Urine 0-4 /hpf (0-2); Squamous Epithelial Cell Urine 0-4 /hpf (0-5); Urine Appearance Cloudy (CLEAR); Urine Color Yellow (Yellow); Urobilinogen Urine Norm (Negative); WBC Urine TOO NUMEROUS TO CNT /hpf (0-5); pH Urine 6.5 (5-7)
--- NOTE | 2020-12-27 21:17 | PM.HP ---
Providers/Chief Complaint Chief Complaint: HYPOXIC History of Present Illness Moy Fernandez is a 70 year old male with a past medical history of right BKA for diabetic foot infection osteomyelitis, noninsulin-dependent type 2 diabetes mellitus, end-stage renal disease on dialysis, combined systolic and diastolic CHF, history of CABG, history of peripheral arterial disease, history of epilepsy, history of anemia, history of ESBL E. coli UTIs and pyelonephritis, history of VRE and ESBL skin infections, recent history of sepsis and gram-positive bacteremia staph aureus secondary to dialysis catheter which was replaced, finished 2 weeks of vancomycin, JOSEPH negative for endocarditis, who presents to [facility] due to altered mental status. Patient currently is a resident at [facility], when I examined patient, he is alert, but does not respond to questions, does not respond to me, he can follow some commands, such as squeezing my fingers, does withdraw from pain is on 4 L, but is nonverbal, I cannot discern any facial droop, no focal neurologic deficits that I can discern, he spontaneously moving both upper extremities, pupils are equal round reactive to light, he does track me. [facility] to the [facility], at baseline, he is verbal, can carry out conversations, ambulates in a wheelchair, can feed himself, he was doing well except he started to develop this right foot cellulitis, which he was sent to the emergency room on 12/24/2020. He was discharged with Bactrim and Keflex. According to the [facility] staff, patient has been using morphine 20 mg/mL 0.25 mL every 4 hours, he has been using it due to increased pain complaints, primarily in the left lower extremity, but recently has been using less of the pain medication. According to [facility], for the last 3 days he has been lethargic, less responsive, he also had low-grade temperatures, was not requiring any oxygen, no chest pain, no palpitations, no shortness of breath, no known exposure to COVID-19, he did have Covid back in 2019, they are not sure about his Covid vaccination status. He has a history of UTIs, but no recent antibiotic use. Patient was brought to dialysis today, he was noticed to be hypoxic, requiring oxygen, a bit hypotensive, he was found to be more confused, leaning towards his left, his blood sugar is 180, blood pressure 90/50, heart rates 110s. Currently he does withdraw from pain. Hospitalist team was called, as there was concerns for elevated troponins, in the 400s, he was more confused, his urinalysis is pending, chest x-ray no focal pneumonia, Review of Systems General: Reports: ROS unobtainable due to medical condition Medications/Allergies Home Medications Medication Instructions Recorded Confirmed Last Taken Type [place] Plus Cold+Flu 1 packet PO Q4H PRN 07/23/20 12/27/20 09/05/20 09:29 History ascorbic acid (vitamin C) [Vitamin 500 mg PO DAILY@0800 07/23/20 12/27/20 12/24/20 History C] levetiracetam [Keppra] 500 mg PO BID@08,199907/23/20 12/27/20 12/24/20 08:00 History pantoprazole 40 mg PO BID@07/23/20 12/27/20 12/24/20 History bisacodyl 10 mg [place] DAILY PRN 08/23/20 12/27/20 Unknown History amlodipine 5 mg PO DAILY@0809/05/20 12/27/20 12/24/20 History aspirin [Aspir-81] 81 mg PO DAILY@79909/05/20 12/27/20 12/24/20 History atorvastatin 40 mg PO DAILY@199909/05/20 12/27/20 12/23/20 History clopidogrel 75 mg PO DAILY@0809/05/20 12/27/20 12/24/20 History isosorbide mononitrate 30 mg PO DAILY@79909/05/20 12/27/20 12/24/20 History metoprolol tartrate 12.5 mg PO BID@08,199909/05/20 12/27/20 12/24/20 08:00 History sevelamer carbonate 800 mg PO TID@09/05/20 12/27/20 12/24/20 08:00 History Pro Stat Nutritional 15 ml PO BID@12/24/20 12/27/20 12/24/20 History acetaminophen 650 mg PO Q4H PRN MDD 3,000 mg 12/24/20 12/27/20 Unknown History cephalexin 500 mg PO BID 7 Days #14 cap 12/24/20 12/27/20 Unknown Rx diclofenac sodium [Voltaren] 2 - 4 g TOPICAL BID@12/24/20 12/27/20 12/24/20 History morphine concentrate See Rx Instructions .ROUTE .COMPLEX 12/24/20 12/27/20 12/23/20 08:00 History sacubitril-valsartan [Entresto] 1 tab PO BID@12/24/20 12/27/20 12/24/20 08:00 History hydrocodone-acetaminophen 1 tab PO BID PRN 12/27/20 12/27/20 Unknown History Allergies Allergy/AdvReac Type Severity Reaction Status Date / Time No Known Allergies Allergy Verified 12/24/20 11:48 PFSH Acute PFSH: Medical History Anemia in CKD (chronic kidney disease) Atherosclerotic heart disease of [place] coronary artery without angina pectoris CHF (congestive heart failure) Chronic ulcer of ankle CKD (chronic kidney disease), stage V started hemodialysis 07/29/2020 Combined systolic and diastolic congestive heart failure Echo 08/04 demonstrates EF 35 to 40% COVID-19 (~01/2020) Diabetes mellitus History of ESBL E. coli infection Hypertension Multilevel degenerative disc disease has known hx of multilevel DJD, s/p spinal stimulator Peripheral neuropathy Polyneuropathy in other diseases classified elsewhere Seizure disorder Spinal cord stimulator status Spinal stenosis Type 2 diabetes mellitus Surgical History S/P CABG x 3 S/P dialysis catheter insertion (07/29/20) Giurgius S/P insertion of spinal cord stimulator Status post below knee amputation of right lower extremity Family History Mother Cancer Brother Lung disease Other Hyperlipidemia Hypertension Denies family history of Diabetes CAD (coronary artery disease) Clotting disorder Dementia Psychiatric illness Chronic kidney disease (CKD) Suicide Anesthesia complication Bleeding disorder Stroke Social History Alcohol intake: former Lives independently: No (Brother is his power of contracts attorney, recently has had to be involved in more decisions) Housing: Long Term Vitals/I&O/Wt Last Vital Signs Temp 98.8 F 12/27/20 21:00 Pulse 86 12/27/20 21:00 Resp 18 12/27/20 21:00 BP 97/50 12/27/20 21:00 Pulse Ox 99 12/27/20 21:00 12/27/20 12/27/20 12/27/20 06:59 14:59 22:59 Intake Total 250 / 250 Balance 250 / 250 Weight last 48 hrs Weight 87.09 kg Physical Exam Const: EXAM LIMITATIONS: altered mental status ORIENTATION/CONSCIOUSNESS: Yes awake and Yes confused; not oriented to person, not oriented to place and not oriented to time HENMT: COMMON NORMALS: normocephalic Eye: COMMON NORMALS: Equal, round and reactive pupils present Lymph: LYMPHATIC: no lymphadenopathy noted Chest: COMMONS NORMALS: normal inspection of the chest OTHER: Right temporary dialysis catheter in place, no surrounding cellulitis Resp: COMMON NORMALS: normal respiratory effort, No retractions, No use of accessory muscles and clear to auscultation bilaterally Cardio: COMMON NORMALS: regular rate, regular rhythm, S1 normal heart sound present and S2 normal heart sound present GI: COMMON NORMALS: Normal to inspection, nondistended, normoactive bowel sounds present, Soft to palpation, non-tender and No hepatosplenomegaly present : COMMON NORMALS: Yes no CVA tenderness OTHER: Denise catheter in place Extremity: OTHER: Right BKA, at stump site, some surrounding erythema, no open wound Left lower extremity, foot, at the level of the ankle, 3 x 3 cm round black eschar, with necrotic features, with surrounding cellulitis, some drainage, foul-smelling. Also along the lateral aspect of the foot, fifth digit, irregular black necrotic area, with drainage, foul-smelling Neuro: OTHER: Does not follow neurologic testing, pupils equal round reactive to light, does withdraw from pain, can squeeze my fingers, bilateral upper extremities, he is moving his right lower extremity, I do not feel that he is really favoring the side, no facial droop that I can discern Urinary Catheter Management^: Straight: Cath Placed During This Visit: yes Urinary Catheter Date of Insertion: 12/27/20 Data : 12/27/20 19:01 12/27/20 19:01 Micro: Microbiology 12/27/20 21:00 Blood Culture - Preliminary Blood SPECIMEN COLLECTED 12/27/20 20:43 Blood Culture - Preliminary Blood SPECIMEN COLLECTED A&P Assessment and plan (1) Acute encephalopathy: Acute encephalopathy -Likely multifactorial from UTI, cellulitis, deep tissue infection -Likely secondary to right lower extremity cellulitis, with black eschar, with necrotic features, concerning for deep tissue infection possible osteomyelitis. Does have a history of ESBL and VRE positive wound cultures -Does have UA features of a UTI, has a history of recurrent ESBL E. coli UTIs -Type 2 diabetes mellitus, last A1c was 5.2, has peripheral arterial disease Plan: -Admit to general medical floors -Start broad-spectrum antibiotic therapy, Zyvox, Primaxin -Follow blood cultures, urine cultures, wound cultures -ESR, CRP, pro-Jatinder pending -Continue aspirin, statin, Plavix on hold -, carotid artery ultrasound as there was concerns he was leaning to the left, CT head no acute stroke -Consult surgery, Dr. Davenport, possible surgical debridement, n.p.o. midnight Sepsis, sepsis criteria met given altered mental status, hypotension, hypoxia, elevated troponin, source of infection, UA, right foot -Treatment as above Hypoxia, currently on 4 L -According to [facility] he uses oxygen as needed, has not been using oxygen at the [facility] as per information I received -Chest x-ray no focal pneumonia, no significant evidence of fluid overload, BNP pending -Did have Covid back in January 2020 -Repeat rapid Covid, Covid PCR, Covid isolation -Does not look short of breath, lungs clear to auscultation bilaterally NSTEMI -Troponin IV 26, 120-minute for 12, delta 13.6 -No complaints of chest pain -No acute ST-T wave changes -Continue aspirin, statin, hold Plavix -Serial troponins, serial EKGs, telemetry monitoring -Cardiac echo ordered -Had a low probability stress test on 08/03/2020 Acute systolic and diastolic CHF -Cardiac echocardiogram on August 24, 2020 showed an EF of 30 to 35%, moderate septal hypokinesis, grade 1 diastolic dysfunction -Does not look fluid overloaded, BNP pending, not on Lasix, does urinate End-stage renal disease on dialysis -Nephrology consulted, dialysis days Sunday Type 2 diabetes mellitus, recheck A1c, continue low-dose sliding scale Acute on chronic anemia, hemoglobin 9.8, baseline, likely secondary to end-stage renal disease Right dialysis catheter in place, temporary, no signs of surrounding infection, blood cultures were drawn from the dialysis catheter site N.p.o. Lovenox for DVT prophylaxis According to [facility] he is DNR, that is listed in their system, would readdress in the morning, his healthcare power of contracts attorney is Sajan Fernandez, #[phone] Status: Acute (2) Cellulitis of left lower extremity: Status: Acute (3) CKD (chronic kidney disease), stage V: Status: Acute (4) Status post below knee amputation of right lower extremity: Status: Acute (5) Anemia in CKD (chronic kidney disease): Status: Chronic Qualifiers: Chronic kidney disease stage: on chronic dialysis Qualified Code(s): N18.6 - End stage renal disease; D63.1 - Anemia in chronic kidney disease; Z99.2 - Dependence on renal dialysis (6) Ischemic cardiomyopathy: Status: Chronic (7) CHF (congestive heart failure): Status: Chronic Qualifiers: Heart failure chronicity: chronic Heart failure type: combined systolic and diastolic Qualified Code(s): I50.42 - Chronic combined systolic (congestive) and diastolic (congestive) heart failure (8) CAD (coronary artery disease): Status: Chronic Qualifiers: Associated angina: without angina Coronary Disease-Associated Artery/Lesion type: [place] artery [place] vs. transplanted heart: [place] heart Qualified Code(s): I25.10 - Atherosclerotic heart disease of [place] coronary artery without angina pectoris (9) Type 2 diabetes mellitus: Status: Chronic Qualifiers: Diabetes mellitus extermination supervisor insulin use: with extermination supervisor use Diabetes mellitus complication status: with hyperglycemia Qualified Code(s): E11.65 - Type 2 diabetes mellitus with hyperglycemia; Z79.4 - emt intermediate (current) use of insulin (10) Seizure disorder: Status: Chronic (11) Peripheral arterial disease: Status: Chronic Attestations Medical Necessity Statement*: Patient requires hospitalization, inpatient, greater than 2 midnights, for acute encephalopathy, sepsis secondary to cellulitis right lower extremity, concerns for ESBL E. coli UTI Coding Level of Care Code Acute Acquisitions Editor for [facility] Diagnoses Acute encephalopathy G93.40 Cellulitis of left lower extremity L03.116 CKD (chronic kidney disease), stage V N18.5 Status post below knee amputation of right lower extremity Z89.511 Anemia in CKD (chronic kidney disease) N18.6; D63.1; Z99.2 Chronic kidney disease stage: on chronic dialysis Ischemic cardiomyopathy I25.5 CHF (congestive heart failure) I50.42 Heart failure chronicity: chronic Heart failure type: combined systolic and diastolic CAD (coronary artery disease) I25.10 Associated angina: without angina Coronary Disease-Associated Artery/Lesion type: [place] artery [place] vs. transplanted heart: [place] heart Type 2 diabetes mellitus E11.65; Z79.4 Diabetes mellitus extermination supervisor insulin use: with correction use Diabetes mellitus complication status: with hyperglycemia Seizure disorder G40.909 Peripheral arterial disease I73.9
[2020-12-27 21:50] LABS: NT Pro B Type Natriuretic Pept 11782 pg/mL (0-125); Procalcitonin 14.96 ng/mL (0-0.5)
[2020-12-27 22:01] LABS: C Reactive Protein 145.2 mg/L (0.0-4.9); Creatine Phosphokinase 293 U/L (39-308)
[2020-12-27 22:18] LABS: Erythrocyte Sedimentation Rate 97 mm/hr (0-10)
[2020-12-27 22:58] LABS: Lactic Sepsis W/Reflex 1.2 mmol/L (0.5-2.2)
[2020-12-27 22:59] LABS: Vancomycin Random 33.1 ug/mL (20.0-40.0)
[2020-12-28] VITALS (9 sets, daily range): BP systolic 70–128; BP diastolic 30–69; PULSE 52–72; RESP 16–20; TEMP 36.4–37.6; O2SAT 88–100; BMI 27.3
[2020-12-28 00:16] LABS: Estmated Average Glucose 114; Hemoglobin A1C 5.6 % (4.0-6.0)
[2020-12-28 00:24] LABS: Thyroid Stimulating Hormone 0.75 uIU/mL (0.27-4.20)
[2020-12-28] MEDS: famotidine 20 mg/2 mL INJ IVP ×2 (00:44→12:23)
[2020-12-28] MEDS: midodrine 5 mg TABLET 10 MG PO ×3 (00:44→20:05)
[2020-12-28] MEDS: enoxaparin 40 mg/0.4 mL Syringe SUBCUT (00:44)
[2020-12-28 02:54] LABS: SARS Covid-2 Antigen Negative (Negative)
[2020-12-28] MEDS: linezolid premix 600 MG/300 ML PREMIX 300 MG IV ×2 (03:19→12:29)
[2020-12-28 03:26] LABS: Basophils % 0.3 %; Eosinophils % 0.1 %; Hematocrit 27.9 % (42.0-52.0); Lymphocytes # 0.7 10^3/uL (0.8-4.8); Lymphocytes % 10.3 %; Mean Corpuscular HGB Conc 32.3 g/dL (30.0-36.0); Mean Corpuscular Hemoglobin 31.9 pg (28.0-34.0); Mean Corpuscular Volume 98.9 fl (80-94); Mean Platelet Volume 9.9 fL (7.4-10.4); Monocytes # 0.6 10^3/uL (0.2-0.9); Monocytes % 9.1 %; Neutrophils # 5.52 10^3/uL (1.8-7.7); Neutrophils % 79.9 %; Nucleated Red Blood Cells % 0 %; Platelet Count 184 10^3/cmm (130-400); Red Blood Count 2.82 10^6/uL (4.1-5.3); Red Cell Distribution Width 12.3 % (12.1-15.1); White Blood Count 6.9 10^3/uL (4.0-10.0)
[2020-12-28 03:34] LABS: INR 1.26 (0.8-1.2)
[2020-12-28 03:43] LABS: Alanine Aminotransferase 22 U/L (0-41); Albumin Level 3.1 g/dL (3.5-5.2); Alkaline Phosphatase 54 IU/L (40-130); Ammonia 32 umol/L (16-60); Anion Gap 13.4 (5-19); Aspartate Amino Transferase 25 U/L (0-40); Blood Urea Nitrogen 27 mg/dL (8-23); Calcium 8.4 mg/dL (8.5-10.5); Carbon Dioxide 31 mmol/L (22-29); Chloride 97 mmol/L (98-107); Globulin 3.2 g/dL (1.3-4.6); Glucose 118 mg/dL (65-115); Magnesium 1.8 mg/dL (1.7-2.3); Osmolality Calculated 290 mOsm/kg (285-295); Phosphorus 2.5 mg/dL (2.5-4.5); Potassium 4.4 mmol/L (3.5-5.1); Sodium 137 mmol/L (136-145); Total Bilirubin 0.2 mg/dL (0.15-1.2); Total Protein 6.3 g/dL (6.6-8.7)
--- NOTE | 2020-12-28 05:31 | PM.CONSULT ---
Providers/Reason For Consult Consulting Physician/Specialty*: Hugo Davenport MD Reason for Consult*: Left diabetic foot infection Attending Physician: Hira Ruiz MD History of Present Illness History of Present Illness Chief Complaint Am hurting History of present illness: Moy Fernandez is a 70 year old male with history of right BKA, diabetic foot infection, osteomyelitis, noninsulin-dependent type 2 diabetes mellitus, end-stage renal disease on hemo-dialysis, combined systolic and diastolic CHF, history of CABG, history of peripheral arterial disease, history of epilepsy, history of anemia, history of ESBL E. coli UTIs and pyelonephritis, history of VRE and ESBL skin infections, recent history of sepsis and gram-positive bacteremia staph aureus secondary to dialysis catheter which was replaced, finished 2 weeks of vancomycin, JOSEPH negative for endocarditis. Patient is well-known to me from previous clinical encounters as I did perform right below the knee amputation more and placement of right internal jugular vein HD catheter for hemodialysis back in July 2020. Patient presents to the ER with lethargy and generalized weakness and concern for sepsis. X-ray left foot Diffuse demineralization of the left foot. CT scan of the left foot is pending General surgery was consulted for further evaluation about concerns of the left foot would be the potential source of sepsis Review of Systems General: Reports: ROS unobtainable due to medical condition Meds/Allergies Home Medications and Allergies Home Medications Medication Instructions Recorded Confirmed Last Taken Type [place] Plus Cold+Flu 1 packet PO Q4H PRN 07/23/20 12/27/20 09/05/20 09:29 History ascorbic acid (vitamin C) [Vitamin 500 mg PO DAILY@0800 07/23/20 12/27/20 12/24/20 History C] levetiracetam [Keppra] 500 mg PO BID@08,199907/23/20 12/27/20 12/24/20 08:00 History pantoprazole 40 mg PO BID@08,07/23/20 12/27/20 12/24/20 History bisacodyl 10 mg [place] DAILY PRN 08/23/20 12/27/20 Unknown History amlodipine 5 mg PO DAILY@0800 09/05/20 12/27/20 12/24/20 History aspirin [Aspir-81] 81 mg PO DAILY@0800 09/05/2013/21 09/10/21 History atorvastatin 40 mg PO DAILY@199909/05/20 12/27/20 12/23/20 History clopidogrel 75 mg PO DAILY@79909/05/20 12/27/20 12/24/20 History isosorbide mononitrate 30 mg PO DAILY@79909/05/20 12/27/20 12/24/20 History metoprolol tartrate 12.5 mg PO BID@799,199909/05/20 12/27/20 12/24/20 08:00 History sevelamer carbonate 800 mg PO TID@09/05/20 12/27/20 12/24/20 08:00 History Pro Stat Nutritional 15 ml PO BID@12/24/20 12/27/20 12/24/20 History acetaminophen 650 mg PO Q4H PRN MDD 3,000 mg 12/24/20 12/27/20 Unknown History cephalexin 500 mg PO BID 7 Days #14 cap 12/24/20 12/27/20 Unknown Rx diclofenac sodium [Voltaren] 2 - 4 g TOPICAL BID@12/24/20 12/27/20 12/24/20 History morphine concentrate See Rx Instructions .ROUTE .COMPLEX 12/24/20 12/27/20 12/23/20 08:00 History sacubitril-valsartan [Entresto] 1 tab PO BID@12/24/20 12/27/20 12/24/20 08:00 History hydrocodone-acetaminophen 1 tab PO BID PRN 12/27/20 12/27/20 Unknown History Allergies Allergy/AdvReac Type Severity Reaction Status Date / Time No Known Allergies Allergy Verified 12/24/20 11:48 Current Medications Current Medications Generic Name Dose Route Start Last Admin Trade Name Freq PRN Reason Stop Dose Admin Enoxaparin Sodium 40 mg 12/27/20 23:49 12/28/20 00:44 Enoxaparin 40 Mg/0.4 Ml Syringe SUBCUT 40 mg Q24H YANELI Administration Famotidine 20 mg 12/27/20 23:49 12/28/20 00:44 Famotidine 20 Mg/2 Ml Inj IVP 20 mg Q12H YANELI Administration Imipenem/Cilastatin Sodium 500 100 mls @ 200 mls/hr 12/28/20 00:00 12/28/20 03:16 mg/ Sodium Chloride IV Infused Q6H YANELI Infusion Protocol Linezolid 600 mg in 300 mls @ 300 mls/hr 12/28/20 01:00 12/28/20 03:19 Zyvox Premix IV 300 mls/hr Q12H YANELI Administration Protocol Midodrine 10 mg 12/27/20 23:49 12/28/20 00:44 Midodrine 5 Mg Tablet PO 10 mg TID YANELI Administration PFSH Acute PFSH: Medical History Anemia in CKD (chronic kidney disease) Atherosclerotic heart disease of [place] coronary artery without angina pectoris CHF (congestive heart failure) Chronic ulcer of ankle CKD (chronic kidney disease), stage V started hemodialysis 07/29/2020 Combined systolic and diastolic congestive heart failure Echo 08/04 demonstrates EF 35 to 40% COVID-19 (~01/2020) Diabetes mellitus History of ESBL E. coli infection Hypertension Multilevel degenerative disc disease has known hx of multilevel DJD, s/p spinal stimulator Peripheral neuropathy Polyneuropathy in other diseases classified elsewhere Seizure disorder Spinal cord stimulator status Spinal stenosis Type 2 diabetes mellitus Surgical History S/P CABG x 3 S/P dialysis catheter insertion (07/29/20) Giurgius S/P insertion of spinal cord stimulator Status post below knee amputation of right lower extremity Family History Mother Cancer Brother Lung disease Other Hyperlipidemia Hypertension Denies family history of Diabetes CAD (coronary artery disease) Clotting disorder Dementia Psychiatric illness Chronic kidney disease (CKD) Suicide Anesthesia complication Bleeding disorder Stroke Social History Alcohol intake: former Lives independently: No (Brother is his power of admitted attorneys, recently has had to be involved in more decisions) Housing: [facility] Vitals/I&O/Wt Last Vital Signs Temp 98.1 F 12/28/20 04:00 Pulse 65 12/28/20 04:00 Resp 16 12/28/20 04:00 BP 115/66 12/28/20 04:00 Pulse Ox 94 12/28/20 04:00 12/27/20 12/27/20 12/28/20 14:59 22:59 06:59 Intake Total 502.1 / 502.1 100 / 602.1 Balance 502.1 / 502.1 100 / 602.1 Weight last 48 hrs Weight 196 lb 4.8 oz Weight 192 lb Physical Exam Narrative: EXAM NARRATIVE: Patient is conscious alert confused BMI 27.4 Head and neck examination PERRLA no masses no cervical lymphadenopathy no jaundice Right internal jugular vein hemodialysis catheter in place without complication Abdomen nontender nondistended soft no organomegaly guarding or rigidity/no signs of peritonitis Extremities no cyanosis no clubbing no edema Right below the knee amputation stump with superficial denuded area about 1 cm in diameter at the center Left foot shows to eschars range in diameter between 3 x 5 cm, one is located at the posterior lateral aspect of the left foot towards the base of the left fifth toe and the other one is located towards the lower third of the left leg. Urinary Catheter Management^: Straight: Cath Placed During This Visit: yes Urinary Catheter Date of Insertion: 12/27/20 Data Micro: Micro: Microbiology 12/27/20 21:00 Blood Culture - Pr eliminary Blood SPECIMEN [facility] TIFFANIE 12/27/20 20:43 Blood Culture - Pr eliminary Blood SPECIMEN [facility] TIFFANIE A&P Assessment and plan (1) Cellulitis of left lower extremity: After history taking physical examination and reviewing the chart, we will plan to have Betadine paint on the left foot eschars twice a day and leave open to air, follow on the CT scan images and will determine the potential need for surgical intervention. Thank you for consulting general surgery to participate taking care Mr. Fernandez Status: Acute Consult Attestations Medical Necessity Statement: Per admitting service Time Spent in Patient Care: (>than 50% of time spent in counselling and/or direct pt care on unit). Coding Level of Care Code Acute [employer] Chaser for [facility] Diagnoses Cellulitis of left lower extremity L03.116
--- NOTE | 2020-12-28 05:37 | CT_ITS ---
WS: [facility]4 CT LEFT FOOT, NONCONTRAST. HISTORY: cellulitis Technique: All CT scans at [facility] use at least one of these dose optimization techniques: automated exposure control; mA and/or kV adjustment per patient size (includes targeted exams where dose is matched to clinical indication); or iterative reconstruction. DLP: 278.22 mGy.cm COMPARISON: None available. There is a large amount soft tissue edema and soft tissue thickening throughout the foot. Greatest al layla the dorsal surface of the entire foot extending into the ankle. No focal fluid collection identif ied. There is additional extensive soft tissue thickening encasing the distal fifth metatarsal and fi fth toe. No fracture. No definite break in the cortex or osteomyelitis. There is extensive osteopenia throughout the foot. Extensive peripheral arterial calcifications. CT/CT foot LT wo con* [id number] IMPRESSION: 1. Extensive soft tissue thickening and edema throughout the foot, greatest al layla the dorsal surface and surrounding the fifth metatarsal and phalanx. 2. No fracture. 3. No osteomyelitis identified. 4. Severe diffuse osteopenia.
[2020-12-28 06:13] LABS: Glucose Point of Care 132 mg/dL (70-110)
--- NOTE | 2020-12-28 07:46 | P.CONIM_ITS ---
Providers/Reason For Consult Consulting Physician/Specialty*: yuan guerrero md/ telenephrology Reason for Consult*: ESRD care Attending Physician: Hamilton Moscoso MD History of Present Illness History of Present Illness Moy Fernandez is a 70 year old male with a past medical history of right BKA, diabetic foot infection, osteomyelitis, noninsulin-dependent type 2 diabetes mellitus, end-stage renal disease on dialysis, combined systolic and diastolic CHF, history of CABG, history of peripheral arterial disease, history of epilepsy, history of anemia, history of ESBL E. coli UTIs and pyelonephritis, history of VRE and ESBL skin infections, recent history of sepsis and gram- positive bacteremia staph aureus secondary to dialysis catheter which was replaced, finished 2 weeks of vancomycin, JOSEPH negative for endocarditis. The pt presented to [facility] due to Left foot DM ulcer/ cellulitis. He was recently treated with Bactrim and Keflex. He complains of left lower extremity pain. -pt was hypotensive, AMS, and tachycardic in ER. Pt has improved MS this am. Review of Systems General: Reports: 10 or more systems reviewed and unremarkable except in HPI and below Narrative: fever, leg pain, poor sugar control. no change in vision, no lee, no diarrhea, +AMS, leg pain Meds/Allergies Home Medications and Allergies Home Medications Medication Instructions Recorded Confirmed Last Taken Type Payton-Cranks Plus Cold+Flu 1 packet PO Q4H PRN 07/23/20 12/27/20 09/05/20 09:29 History ascorbic acid (vitamin C) [Vitamin 500 mg PO DAILY@0800 07/23/20 12/27/20 12/24/20 History C] levetiracetam [Keppra] 500 mg PO BID@799,199907/23/20 12/27/20 12/24/20 08:00 History pantoprazole 40 mg PO BID@08,07/23/20 12/27/20 12/24/20 History bisacodyl 10 mg DC DAILY PRN 08/23/20 12/27/20 Unknown History amlodipine 5 mg PO DAILY@0800 09/05/20 12/27/20 12/24/20 History aspirin [Aspir-81] 81 mg PO DAILY@0800 09/05/20 12/27/20 12/24/20 History atorvastatin 40 mg PO DAILY@199909/05/20 12/27/20 12/23/20 History clopidogrel 75 mg PO DAILY@79909/05/20 12/27/20 12/24/20 History isosorbide mononitrate 30 mg PO DAILY@79909/05/20 12/27/20 12/24/20 History metoprolol tartrate 12.5 mg PO BID@799,199909/05/20 12/27/20 12/24/20 08:00 History sevelamer carbonate 800 mg PO TID@,,09/05/20 12/27/20 12/24/20 08:00 History Pro Stat Nutritional 15 ml PO BID@12/24/20 12/27/20 12/24/20 History acetaminophen 650 mg PO Q4H PRN MDD 3,000 mg 12/24/20 12/27/20 Unknown History cephalexin 500 mg PO BID 7 Days #14 cap 12/24/20 12/27/20 Unknown Rx diclofenac sodium [Voltaren] 2 - 4 g TOPICAL BID@12/24/20 12/27/20 12/24/20 History morphine concentrate See Rx Instructions .ROUTE .COMPLEX 12/24/20 12/27/20 12/23/20 08:00 History sacubitril-valsartan [Entresto] 1 tab PO BID@12/24/20 12/27/20 12/24/20 08:00 History hydrocodone-acetaminophen 1 tab PO BID PRN 12/27/20 12/27/20 Unknown History Allergies Allergy/AdvReac Type Severity Reaction Status Date / Time No Known Allergies Allergy Verified 12/24/20 11:48 Current Medications Current Medications Generic Name Dose Route Start Last Admin Trade Name Freq PRN Reason Stop Dose Admin Enoxaparin Sodium 40 mg 12/27/20 23:49 12/28/20 00:44 Enoxaparin 40 Mg/0.4 Ml Syringe SUBCUT 40 mg Q24H YANELI Administration Famotidine 20 mg 12/27/20 23:49 12/28/20 00:44 Famotidine 20 Mg/2 Ml Inj IVP 20 mg Q12H YANELI Administration Imipenem/Cilastatin Sodium 500 100 mls @ 200 mls/hr 12/28/20 00:00 12/28/20 05:44 mg/ Sodium Chloride IV 200 mls/hr Q6H YANELI Administration Protocol Linezolid 600 mg in 300 mls @ 300 mls/hr 12/28/20 01:00 12/28/20 03:19 Zyvox Premix IV 300 mls/hr Q12H YANELI Administration Protocol Midodrine 10 mg 12/27/20 23:49 12/28/20 00:44 Midodrine 5 Mg Tablet PO 10 mg TID YANELI Administration PFSH Acute PFSH: Medical History Anemia in CKD (chronic kidney disease) Atherosclerotic heart disease of [place] coronary artery without angina pectoris CHF (congestive heart failure) Chronic ulcer of ankle CKD (chronic kidney disease), stage V started hemodialysis 07/29/2020 Combined systolic and diastolic congestive heart failure Echo 08/04 demonstrates EF 35 to 40% COVID-19 (~01/2020) Diabetes mellitus History of ESBL E. coli infection Hypertension Multilevel degenerative disc disease has known hx of multilevel DJD, s/p spinal stimulator Peripheral neuropathy Polyneuropathy in other diseases classified elsewhere Seizure disorder Spinal cord stimulator status Spinal stenosis Type 2 diabetes mellitus Surgical History S/P CABG x 3 S/P dialysis catheter insertion (07/29/20) Giurgius S/P insertion of spinal cord stimulator Status post below knee amputation of right lower extremity Family History Mother Cancer Brother Lung disease Other Hyperlipidemia Hypertension Denies family history of Diabetes CAD (coronary artery disease) Clotting disorder Dementia Psychiatric illness Chronic kidney disease (CKD) Suicide Anesthesia complication Bleeding disorder Stroke Social History Alcohol intake: former Lives independently: No (Brother is his power of transactional attorney, recently has had to be involved in more decisions) Housing: Retirement Vitals/I&O/Wt Last Vital Signs Temp 98.1 F 12/28/20 04:00 Pulse 62 12/28/20 06:00 Resp 16 12/28/20 04:00 BP 115/66 12/28/20 04:00 Pulse Ox 94 12/28/20 04:00 12/27/20 12/28/20 12/28/20 22:59 06:59 14:59 Intake Total 502.1 / 502.1 100 / 602.1 Balance 502.1 / 502.1 100 / 602.1 Weight last 48 hrs Weight 89.04 kg Weight 87.09 kg Physical Exam Narrative: EXAM NARRATIVE: comfortable in bed heent- nc/at, eomi, anicteric neck- no jvp lungs- cta b/l heart- reg no rub abd soft, nt, nd, +BS ext Rt BKA, LLE foot lesion/ redness Urinary Catheter Management^: Straight: Cath Placed During This Visit: yes Urinary Catheter Date of Insertion: 12/27/20 Data Micro: Micro: Microbiology 12/27/20 21:00 Blood Culture - Pr eliminary Blood SPECIMEN COLLE TIFFANIE 12/27/20 20:43 Blood Culture - Pr eliminary Blood SPECIMEN [facility] TIFFANIE A&P Additional A&P Information 70 yr old man ESRD, IDDM, chronic systolic chf, e coli uti 1. ESRD - HD in am- orders written- 3.5 hrs, 2k, remove 2l 2. dm foot cellulitis +/- uti - renal dose abx- 3. chronic systolic chf and NSTEMI per cardiology 4. anemia- check iron studies 5. monitor phos, ca 6. dm care time spent > 45 minutes pt seen and examined w/ RN -telehealth visit consent for telehealth obtained Consult Attestations Medical Necessity Statement: cellulitis/ AMS per medicine Time Spent in Patient Care: Greater than 35 minutes Coding Level of Care Code Acute Cabinet Professional for Brandy Sanchez
[2020-12-28 08:32] LABS: Hepatitis B Surface Antigen Non-Reactive (Nonreactive); Hepatitis C Virus Antibody Non-Reactive (Nonreactive)
[2020-12-28 08:33] LABS: Hepatitis B Surface AB < 3.5 (11.5-1000)
--- NOTE | 2020-12-28 11:33 | PC.CHAP ---
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 porcelain mixer visit [] Patient/Family/Request visit [] Outpatient visit [] Follow-up visit [] Physician referral [] Code/Alert [x] Routine visit [] Staff referral [] Actively dying [] Patient sleeping [] Family support [] [] Out of room [] Palliative care [] [] Receiving care in room [] Pre-surgical visit [] Trauma [] Long length of stay [] ICU visit [] Other: Relational/Emotional Strength [] Patient feels connected with others/family/visitors/staff [] Distress [] Loneliness/isolation [] Abandonment Spirituality of Patient [] Person of Ghislaine [] Attends Mosque of their Ghislaine [] Believes in Prayer [] Reads Bible or Temple materials [] There are Spiritual issues to be addressed Stitch Bonding Machine Drawer In Interventions [] Prayer [] Active listening [] Non-anxious presence [] Spiritual/emotional support [] Crisis/trauma care [] Spiritual counseling [] Bereavement support [] Provided bereavement packet [] Provided Bible/devotional materials [] Provided toy/stuffed animal, coloring book to patient or family member [] Provided Communion [] Anointing/[place] [] Salvation [] Completed spiritual assessment [] Other: Impact on Illness or Injury [] Angry [] Fearful [] Anxious [] Often cries [] Exhaustion [] Unable to work [] Unable to attend episcopalian [] Unable to walk/stand [] Unable to read [] Unable to drive [] Unable to eat/drink [] Unable to sleep [] Unable to be with family [] Patient intubated [] Other: Summary ISOLATION Time spent with patient 0
[2020-12-28 12:07] LABS: Glucose Point of Care 123 mg/dL (70-110)
--- NOTE | 2020-12-28 13:02 | PM.PN ---
Subjective Subjective: Interval history: Patient was seen and examined this morning. Did discuss with Dr. Bonilla regarding debridement, plan is for tomorrow We will make him n.p.o. after midnight will allow him to eat this morning Vitals/I&O/Wt Last Vital Signs Temp 97.5 F L 12/28/20 12:00 Pulse 72 12/28/20 12:00 Resp 16 12/28/20 12:00 BP 108/66 12/28/20 12:00 Pulse Ox 98 12/28/20 12:00 12/27/20 12/28/20 12/28/20 22:59 06:59 14:59 Intake Total 502.1 / 502.1 500 / 1002.1 Balance 502.1 / 502.1 500 / 1002.1 Weight last 48 hrs Weight 89.04 kg Weight 87.09 kg Physical Exam Narrative: EXAM NARRATIVE: Right-sided dialysis catheter in place No neurological deficit Right BKA, has ulcer in midportion of the stump without any purulent drainage, Left foot with black eschar foul-smelling at the heel and lateral part of the foot S1, S2 does not look fluid overloaded Soft abdomen No audible stridor or wheezing No neurological deficit Urinary Catheter Management^: Straight: Cath Placed During This Visit: yes Urinary Catheter Date of Insertion: 12/27/20 Data : 12/28/20 03:15 12/28/20 03:15 Micro: Microbiology 12/27/20 21:00 Blood Culture - Preliminary Blood SPECIMEN COLLECTED 12/27/20 20:43 Blood Culture - Preliminary Blood SPECIMEN COLLECTED A&P Assessment and plan (1) Acute encephalopathy: Status: Acute (2) Chronic wound of extremity: Status: Acute (3) Altered mental status: Status: Acute (4) Elevated troponin: Status: Acute (5) Gangrene of left foot: Status: Acute Additional A&P Information Gangrene of left foot Patient to be taken to the OR for debridement tomorrow morning N.p.o. after midnight Continue linezolid and Primaxin Afebrile Betadine and dressing change as per Dr. Mays's recommendation Hold Entresto Patient's blood pressure is soft I will discontinue Imdur metoprolol as well Type II NE Return Kidney disease and gangrene No active chest pain recent stress test -08/04 End-stage renal disease Sunday Nephro on board Consistent carb diet for type 2 diabetes Chronic anemia stable N.p.o. after midnight Hold DVT prophylaxis in anticipation of debridement Goals of care left a voicemail to his DPOA Attestations Medical Necessity Statement*: Continue medical manage Time Spent in Patient Care: 16 - 35 minutes Coding Level of Care Code Acute Client Services Administrator for Brandy Sanchez Diagnoses Acute encephalopathy G93.40 Chronic wound of extremity Altered mental status R41.82 Elevated troponin R77.8 Gangrene of left foot I96
--- NOTE | 2020-12-28 13:42 | USCV_ITS ---
FernandezMoy cornejo Age: 70 Gender: M : 1950 Exam Date: 12/28/2020 17:00 Ordering Phys: Hamilton Moscoso MD Technologist: [place] [facility] [place]: VENKATG GREEN Risk Factors: Smoker Previous Vascular Surgery: CABG RIGHT LEFT BP: 115.0 / 66.00 BP: 110.0/ 63.00 0 0 Waveform Velocity (cm/s) Velocity (cm/s) Waveform Iliac Prox 74.2 Monophasic Iliac Mid 72.1 Triphasic Iliac Distal 67.2 Monophasic SENIOR SQL DBA 21.7 Monophasic SFA Prox 461.4 Monophasic SFA Mid 111.5 Monophasic SFA Dist 66.6 Monophasic POP 35.0 Monophasic CARDIAC/VASCULAR SONOGRAPHER 47.0 Monophasic DPA 70.1 Monophasic KATELYN 0.5 FINDINGS Abnormal resting KATELYN on the left side of 0.5. Moderate to heavy plaques in the left superficial femoral artery with elevated velocity in the proximal segment consistent with a greater than 70% stenosis Monophasic and continuous Doppler waveform in the infrapopliteal vessels on the left side CONCLUSIONS 1. Features of high-grade stenosis in the left superficial femoral artery at the proximal segment segment. 2. Possible collateral filling in the infrapopliteal vessels on the left side. 3. Abnormal resting KATELYN 0.5 on the left side suggesting moderately severe peripheral arterial disease. Compared to the study from 11/11/2019, the resting KATELYN on the left side has significantly decreased. Dr Angeles Khan MD [facility] (Electronically Signed) Final Date: 29 December 2020 07:55 S
[2020-12-28 15:14] LABS: Coronavirus Test Green County Not Detected
[2020-12-28] MEDS: sevelamer 800 mg Tablet PO ×2 (15:24→20:06)
--- NOTE | 2020-12-28 15:25 | PC.NURSE ---
Pain to right stump.
[2020-12-28] MEDS: ondansetron 2 mg/ML SDV 2 mL 4 MG IVP (15:29)
[2020-12-28] MEDS: morphine 4 mg/mL SDV 1 mL 2 MG IVP (15:29)
[2020-12-28 16:42] LABS: Glucose Point of Care 183 mg/dL (70-110)
[2020-12-28] MEDS: levETIRAcetam 500 mg Tablet PO (20:05)
[2020-12-28] MEDS: atorvastatin 40 mg Tablet PO (20:05)
[2020-12-28] MEDS: pantoprazole DR 40 mg Tablet PO (20:05)
[2020-12-28] MEDS: metoprolol tartrate 25 mg Tablet 12.5 MG PO (20:06)
--- NOTE | 2020-12-28 20:55 | PC.NURSE ---
i reported low temp 97.5, low pulse 52, and low 02 88
[2020-12-28 21:41] LABS: Glucose Point of Care 174 mg/dL (70-110)
--- NOTE | 2020-12-28 23:49 | USCV_ITS ---
Moy Fernandez Age: 70 Gender: M : 1950 Exam Date: 12/28/2020 16:41 Ordering Phys: Hira Ruiz MD Technologist: Exam Location: [facility] [place] Indication: AMS BP: 115 / 66 HR: 54 Rhythm: Sinus Technical Quality: Adequate MEASUREMENTS (Male / Female) Normal Values 2D ECHO LV Diastolic Diameter PLAX 3.5 cm 4.2 - 5.9 / 3.9 - 5.3 cm LV Systolic Diameter PLAX 2.8 cm IVS Diastolic Thickness 1.1 cm 0.6 - 1.0 / 0.6 - 0.9 cm IVS Systolic Thickness 1.3 cm LVPW Diastolic Thickness 1.0 cm 0.6 - 1.0 / 0.6 - 0.9 cm LVPW Systolic Thickness 1.2 cm LVOT Diameter 2.1 cm LV Ejection Fraction 2D Teich 38.4 % LV Ejection Fraction MOD 2C 57.2 % LV Ejection Fraction 2C AL 56.5 % LA Diameter 3.8 cm LA Width 4.5 cm LA Height 5.3 cm RA Width 3.7 cm RA Height 4.2 cm FINDINGS Left Ventricle Mildly increased left ventricular cavity size. Severely decreased left ventricular systolic function. Left ventricular ejection fraction is estimated at 38 %. There is mid to distal septal and apical wall akinesis. Right Ventricle Right Atrium Left Atrium Mitral Valve Aortic Valve Tricuspid Valve Pulmonic Valve Pericardium Aorta CONCLUSIONS Please note that this is a limited study, therefore hemodynamic data was not performed. Cannot assess valvular regurgitation or stenosis 1-Mildly increased left ventricular cavity size. Severely decreased left ventricular systolic function. Left ventricular ejection fraction is estimated at 38 %. There is mid to distal septal and apical wall akinesis. 2-There is no pericardial effusion. 3-Due to limited nature of the study cannot compare it with the prior exam. Hamilton Pearce MD (Electronically Signed) Final Date: 28 December 2020 18:50 S
--- NOTE | 2020-12-28 23:49 | USCV_ITS ---
Moy Fernandez Age: 70 Gender: M : 1950 Exam Date: 12/28/2020 16:49 Ordering Phys: Hira Ruiz MD Technologist: Exam Location: [place] Indication: TIA Risk Factors: Smoker Previous Vascular Surgery: Right Brachial BP: / Left Brachial BP: / Right Left Velocity (cm/s) Spectral Plaque Velocity (cm/s) Spectral Plaque Syst/Diast Broadening Syst/Diast Broadening 86.00/ 14.30 Prox CCA 85.40 / 12.40 81.60/ 18.70 Hetro Mid CCA 91.70 / 13.20 Hetro 79.40/ 22.10 Hetro Distal CCA 86.30 / 12.00 Hetro 90.40/ 19.80 Hetro Prox ICA 73.40 / 22.30 Hetro 81.60/ 22.10 Hetro Mid ICA 93.00 / 22.30 Hetro 122.40/29.80 Hetro Distal ICA 76.20 / 21.40 Hetro 196.10 ECA 135.40 1.42 ICA/CCA 1.01 Antegrade Vertebral Antegrade 22.40/ 2.10 cm/s 78.10/ 24.20 cm/s Bi Subclavian Bi 62.50 109.7 0 FINDINGS Moderate heterogeneous plaques of the right bifurcation and internal carotid artery. Mild to moderate plaques of the left bifurcation and internal carotid artery Antegrade flow in the vertebral arteries bilaterally. Moderate to heavy plaques in the proximal external carotid artery on the right side Normal Doppler flow velocities in the subclavian arteries bilaterally CONCLUSIONS Moderate heterogeneous plaques of the right bifurcation and internal carotid artery with velocity elevation consistent with less than 50% stenosis. Mild to moderate plaques at the left bifurcation, suggesting less than 50% stenosis Elevated velocity in the external carotid artery on the right side, suggestive of hemodynamically significant stenosis. Dr Angeles Khan MD [facility] (Electronically Signed) Final Date: 29 December 2020 07:49 S
[2020-12-29] VITALS (16 sets, daily range): BP systolic 79–153; BP diastolic 38–67; PULSE 38–51; RESP 15–19; TEMP 36.4–36.8; O2SAT 85–98
--- NOTE | 2020-12-29 00:31 | PC.NURSE ---
i reported low pulse 46 to nurse
[2020-12-29] MEDS: famotidine 20 mg/2 mL INJ IVP ×2 (00:47→11:13)
[2020-12-29] MEDS: linezolid premix 600 MG/300 ML PREMIX 300 MG IV ×2 (00:47→13:45)
[2020-12-29] MEDS: sodium chloride 0.9% 500 ML 999 ML IV (01:03)
[2020-12-29] MEDS: atropine 0.1 mg/mL Syr 10 mL 0.5 MG IVP ×2 (01:38→03:15)
[2020-12-29 02:46] LABS: Basophils % 0.6 %; Eosinophils # 0.1 10^3/uL (0.0-0.8); Eosinophils % 1.6 %; Hematocrit 23.5 % (42.0-52.0); Hemoglobin 7.6 g/dL (11.7-16.6); Lymphocytes % 14.2 %; Mean Corpuscular HGB Conc 32.3 g/dL (30.0-36.0); Mean Corpuscular Hemoglobin 32.2 pg (28.0-34.0); Mean Corpuscular Volume 99.6 fl (80-94); Mean Platelet Volume 9.7 fL (7.4-10.4); Monocytes # 0.8 10^3/uL (0.2-0.9); Monocytes % 10.9 %; Neutrophils # 5.02 10^3/uL (1.8-7.7); Neutrophils % 72.3 %; Nucleated Red Blood Cells % 0 %; Platelet Count 190 10^3/cmm (130-400); Red Blood Count 2.36 10^6/uL (4.1-5.3); Red Cell Distribution Width 12.7 % (12.1-15.1)
[2020-12-29 02:58] LABS: INR 1.23 (0.8-1.2)
[2020-12-29 03:07] LABS: Alanine Aminotransferase 15 U/L (0-41); Albumin Level 2.7 g/dL (3.5-5.2); Alkaline Phosphatase 45 IU/L (40-130); Aspartate Amino Transferase 18 U/L (0-40); Blood Urea Nitrogen 35 mg/dL (8-23); Calcium 8.1 mg/dL (8.5-10.5); Carbon Dioxide 28 mmol/L (22-29); Chloride 93 mmol/L (98-107); Globulin 2.6 g/dL (1.3-4.6); Glucose 145 mg/dL (65-115); Magnesium 1.6 mg/dL (1.7-2.3); Osmolality Calculated 285 mOsm/kg (285-295); Phosphorus 3.3 mg/dL (2.5-4.5); Sodium 132 mmol/L (136-145); Total Bilirubin 0.2 mg/dL (0.15-1.2); Total Protein 5.3 g/dL (6.6-8.7)
[2020-12-29 03:08] LABS: Lactate (Lactic Acid level) 0.9 mmol/L (0.5-2.2)
[2020-12-29 03:10] LABS: Vancomycin Random 10.3 ug/mL (20.0-40.0)
--- NOTE | 2020-12-29 04:00 | PC.NURSE ---
i reported low pulse 38 to nurse
[2020-12-29 06:32] LABS: Glucose Point of Care 115 mg/dL (70-110)
--- NOTE | 2020-12-29 06:45 | PC.NURSE ---
Physician contacted concerning patients BP and HR at approximately 0100. Patients BP was 80's/40's with a HR of 36. Orders for 500ml bolus of NS ordered along with 0.5mg of atropine to be given after NS bolus. Physician was contacted at approximately 0300 for patients HR of 36. Orders were received to administer 0.5mg of atropine. At approximately 0630 physician was made aware of patients current Hgb of 7.9. Orders were recieved to transfuse 1 unit of packed red blood cells.
[2020-12-29] MEDS: levETIRAcetam 500 mg Tablet PO ×2 (07:40→20:33)
[2020-12-29] MEDS: midodrine 5 mg TABLET 10 MG PO ×2 (07:40→15:40)
[2020-12-29] MEDS: pantoprazole DR 40 mg Tablet PO ×2 (07:41→20:33)
--- NOTE | 2020-12-29 08:09 | ECG_ITS ---
[facility] Test Date: 2020-12-29 Pat Name: Moy Fernandez Department: Room: 279 Gender: Male Skilled Nursing Facilities Professional: : 1950 Requested By: Hamilton Moscoso Order Number: [id number] Reading MD: HAMILTON HERRON Measurements Intervals [place] Rate: 41 P: 5 NV: 157 QRS: -10 QRSD: 122 T: 26 QT: 555 QTc: 459 Interpretive Statements SINUS BRADYCARDIA MINIMAL VOLTAGE CRITERIA FOR LVH, CONSIDER NORMAL VARIANT [MEETS CRITERIA IN ONE OF: R(aVL), S(V1), R(V5), R(V5/V6)+S(V1)] INFERIOR MYOCARDIAL INFARCTION , PROBABLY OLD [40+ ms Q WAVE AND/OR ST/T ABNORMALITY IN II/aVF] PROLONGED QT INTERVAL CRITICAL TEST RESULT Compared to ECG 12/27/2020 18:48:43 Myocardial infarct finding now present Prolonged QT interval now present ST (T wave) deviation no longer present Electronically Signed On 12-29-2020 19:27:51 CDT by HAMILTON HERRON [id number]
[2020-12-29 08:46] LABS: Thyroid Stimulating Hormone 0.62 uIU/mL (0.27-4.20)
[2020-12-29 10:48] LABS: Glucose Point of Care 107 mg/dL (70-110)
[2020-12-29] MEDS: sodium chloride 0.9% (100 ml) 100 ML (13:48)
--- NOTE | 2020-12-29 15:18 | PM.PN ---
Subjective Subjective: Interval history: Ms. Fernandez feels weak, unwell. His left foot remains sore. Hemodynamics reviewed, he is noted to have low blood pressure and bradycardia at this time. Metoprolol is now held. Received dialysis on Sunday, dialysis pending for today. Vitals/I&O/Wt Last Vital Signs Temp 98.0 F 12/29/20 11:54 Pulse 44 L 12/29/20 14:00 Resp 15 12/29/20 11:54 BP 79/38 12/29/20 11:54 Pulse Ox 85 L 12/29/20 11:54 12/29/20 12/29/20 12/29/20 06:59 14:59 22:59 Intake Total 800 / 1100 Output Total 320 / 320 Balance 480 / 780 Weight last 48 hrs Weight 89.04 kg Weight 87.09 kg Physical Exam Narrative: EXAM NARRATIVE: Constitutional: Awake, comfortable HEENT: Wet mucosa, no jvp, non icteric Lungs: Bilaterally clear without discernible wheeze, rales in all lung zones CVS: S1 S2, no murmurs Abdo: Soft, BS ok Ext 4: Minimal edema, peripheral perfusion with no cyanosis, foot with swelling, dressed Neurological: Grossly non-focal Urinary Catheter Management^: Straight: Cath Placed During This Visit: yes Urinary Catheter Date of Insertion: 12/27/20 Data : 12/29/20 02:31 12/29/20 02:31 Micro: Microbiology 12/27/20 20:33 Urine Culture - Preliminary Urine,Clean Catch Gram Negative Rods 12/27/20 21:00 Blood Culture - Preliminary Blood NEGATIVE TO DATE 12/27/20 20:43 Blood Culture - Preliminary Blood NEGATIVE TO DATE A&P Additional A&P Information 1. ESRD No acute indication for dialysis at this time, given hemodynamic lability, will allow this to resolve prior to initiating dialysis, he can have dialysis tomorrow. 3K bath, ultrafiltration 2-3 L Dose medication for GFR less than 15 on dialysis 2. Chemistry Noncritical aberration continue to monitor 3. Left foot diabetic foot wound Under the care of wound care, surgery, antibiotics to include Zyvox and Primaxin. 4. Hemodynamics Noted to be bradycardic and hypotensive today. Metoprolol held, close monitoring while the effects of this wear off, other antihypertensives held, continue midodrine. Dennis Carreon MD Nephrology [phone] Patient seen and examined via telemedicine, with the assistance of the bedside RN > 25 min spent in evaluation and mgmt of patient Attestations Medical Necessity Statement*: Eval for ESRD Coding Level of Care Code Acute Multimedia Educational Specialist for Brandy Sanchez
--- NOTE | 2020-12-29 15:24 | P.PN_ITS ---
Subjective Subjective: Interval history: Patient was seen and examined overnight events noted heart rate in 40s seems junctional rhythm requested this morning EKG, 1 unit PRBC, told surgeon to hold off on debridement, dialyzed after blood transfusion if blood pressure is stable Vitals/I&O/Wt Last Vital Signs Temp 98.0 F 12/29/20 11:54 Pulse 44 L 12/29/20 14:00 Resp 15 12/29/20 11:54 BP 79/38 12/29/20 11:54 Pulse Ox 85 L 12/29/20 11:54 12/29/20 12/29/20 12/29/20 06:59 14:59 22:59 Intake Total 800 / 1100 Output Total 320 / 320 Balance 480 / 780 Weight last 48 hrs Weight 89.04 kg Weight 87.09 kg Physical Exam Narrative: EXAM NARRATIVE: Patient is laying comfortably in his bed without any symptoms no chest pain shortness of breath or nausea, vomiting or encephalopathy No active bleeding noticed Black eschar left foot lateral border and heel, foul-smelling S1, S2 without active signs of fluid overload Abdomen soft EOMI, PERRLA No neurological deficit No worsening of right stump ulcer Urinary Catheter Management^: Straight: Cath Placed During This Visit: yes Urinary Catheter Date of Insertion: 12/27/20 Data : 12/29/20 02:31 12/29/20 02:31 Micro: Microbiology 12/27/20 20:33 Urine Culture - Preliminary Urine,Clean Catch Gram Negative Rods 12/27/20 21:00 Blood Culture - Preliminary Blood NEGATIVE TO DATE 12/27/20 20:43 Blood Culture - Preliminary Blood NEGATIVE TO DATE A&P Assessment and plan (1) Acute on chronic anemia: Status: Acute (2) Decubitus ulcer: Status: Acute (3) Gangrene of left foot: Status: Acute (4) Acute encephalopathy: Status: Acute (5) Chronic wound of extremity: Status: Acute (6) Junctional rhythm: Status: Acute Additional A&P Information Acute on chronic macrocytic anemia No active blood loss noted Requested 1 unit PRBC This seems to be due to underlying chronic kidney disease We will request B12 and folate level Gangrene of left foot debridement currently on hold secondary to bradycardia and hypotension Gsurgery notified Junctional rhythm Heart rate in 40s low blood pressure did not respond to atropine I have asked nurse to transfer him to ICU if blood pressure is not improving with blood transfusion to start dopamine drip or transcutaneous pacing if needed EKG requested No active chest pain shortness of breath or encephalopathy worsening Full code Renal dialysis diet Aspirin Heparin on hold Patient does carry a guarded prognosis considering underlying multiple comorbidities Attestations Medical Necessity Statement*: Continue medical management Time Spent in Patient Care: 16 - 35 minutes Coding Level of Care Code Acute Grocery Shopper for Chg Fwd Diagnoses Acute on chronic anemia D64.9 Decubitus ulcer L89.90 Gangrene of left foot I96 Acute encephalopathy G93.40 Chronic wound of extremity Junctional rhythm I49.8
[2020-12-29 16:40] LABS: Vitamin B12 291 pg/mL (232-1245)
[2020-12-29 17:07] LABS: Glucose Point of Care 114 mg/dL (70-110)
[2020-12-29] MEDS: calcium gluconate 0.1 gm/mL 10% SDV 10mL 1 GM IVP (17:25)
[2020-12-29] MEDS: magnesium oxide 400 mg tablet PO (17:26)
[2020-12-29] MEDS: albumin 12.5 GM/50 ML VIAL IV (17:26)
[2020-12-29] MEDS: ondansetron 2 mg/ML SDV 2 mL 4 MG IVP (17:33)
--- NOTE | 2020-12-29 20:19 | PC.NURSE ---
Informed patient care nurse Cindy CHAVEZ of patient's bradycardia, HR is 40, BP is 153/56, MAP 89, 02 is 98% on 2 L NC.
[2020-12-29] MEDS: sevelamer 800 mg Tablet PO (20:33)
[2020-12-29] MEDS: atorvastatin 40 mg Tablet PO (20:33)
[2020-12-29 20:54] LABS: Glucose Point of Care 100 mg/dL (70-110)
[2020-12-29 22:21] LABS: Hematocrit 28.8 % (42.0-52.0); Hemoglobin 9.4 g/dL (11.7-16.6)
[2020-12-30] VITALS (15 sets, daily range): BP systolic 111–162; BP diastolic 48–66; PULSE 37–47; RESP 16–18; TEMP 36.3–36.8; O2SAT 91–98
[2020-12-30] MEDS: linezolid premix 600 MG/300 ML PREMIX 300 MG IV ×2 (00:02→16:09)
[2020-12-30] MEDS: famotidine 20 mg/2 mL INJ IVP ×2 (00:03→11:22)
[2020-12-30 05:37] LABS: Basophils % 0.5 %; Eosinophils # 0.2 10^3/uL (0.0-0.8); Hematocrit 27.6 % (42.0-52.0); Hemoglobin 9.2 g/dL (11.7-16.6); Lymphocytes # 1.2 10^3/uL (0.8-4.8); Lymphocytes % 16.3 %; Mean Corpuscular HGB Conc 33.3 g/dL (30.0-36.0); Mean Corpuscular Hemoglobin 31.8 pg (28.0-34.0); Mean Corpuscular Volume 95.5 fl (80-94); Mean Platelet Volume 9.4 fL (7.4-10.4); Monocytes # 0.8 10^3/uL (0.2-0.9); Monocytes % 10.5 %; Neutrophils # 5.25 10^3/uL (1.8-7.7); Nucleated Red Blood Cells % 0 %; Platelet Count 216 10^3/cmm (130-400); Red Blood Count 2.89 10^6/uL (4.1-5.3); Red Cell Distribution Width 13.3 % (12.1-15.1); White Blood Count 7.6 10^3/uL (4.0-10.0)
[2020-12-30 05:47] LABS: INR 1.17 (0.8-1.2)
[2020-12-30 06:00] LABS: Alanine Aminotransferase 10 U/L (0-41); Albumin Level 2.7 g/dL (3.5-5.2); Alkaline Phosphatase 45 IU/L (40-130); Anion Gap 17.6 (5-19); Aspartate Amino Transferase 14 U/L (0-40); Blood Urea Nitrogen 43 mg/dL (8-23); Carbon Dioxide 26 mmol/L (22-29); Chloride 93 mmol/L (98-107); Globulin 2.8 g/dL (1.3-4.6); Glucose 104 mg/dL (65-115); Magnesium 1.8 mg/dL (1.7-2.3); Osmolality Calculated 285 mOsm/kg (285-295); Phosphorus 3.1 mg/dL (2.5-4.5); Potassium 4.6 mmol/L (3.5-5.1); Sodium 132 mmol/L (136-145); Total Bilirubin 0.3 mg/dL (0.15-1.2); Total Protein 5.5 g/dL (6.6-8.7)
[2020-12-30 06:01] LABS: Lactate (Lactic Acid level) 0.6 mmol/L (0.5-2.2)
[2020-12-30 06:44] LABS: Glucose Point of Care 88 mg/dL (70-110)
--- NOTE | 2020-12-30 09:24 | P.CONIM_ITS ---
Providers/Reason For Consult Consulting Physician/Specialty*: Dr. Knapp, cardiology Reason for Consult*: Pre op clearance for left foot gangrene, Bradycardia Attending Physician: Hamilton Moscoso MD History of Present Illness History of Present Illness Moy Fernandez is a 70 year old male with PMHx of CAD s/p CABG in 2012, Chronic CHF (HFrEF), HTN, PAD, hyperlipidemia, ESRD -DD (M, W, F), DM-type 2 and h/o epilepsy. He has h/o UTI. He has h/o diabetic foot ulcer and osteomyelitis. He underwent below-knee amputation by Dr. Davenport 02/2020. He is mainly wheelchair dependent and [facility]. He presented with altered mental status and pain in left lower extremity, lethargy and low-grade temperatures. He denies any chest pain, palpitations. Troponin elevated at 426->412. He was evaluated by Dr. Mallory and plan is of debridment/amputation of left foot. I have been asked to evaluate the patient for bradycardia with HR in 40's inspite of holding metoprolol. He also underwent left lower extremity duplex that showed high-grade stenosis in the left superficial femoral artery at the proximal segment segment. Possible collateral filling in the infrapopliteal vessels on the left side. Abnormal resting KATELYN 0.5 on the left side suggesting moderately severe peripheral arterial disease. Patient's mental status has improved. Review of Systems General: Reports: 10 or more systems reviewed and unremarkable except in HPI and below Const: Reports: malaise Card: Denies: chest pain, palpitations or lightheadedness Resp: Denies: dyspnea or hemoptysis GI: Denies: hematochezia : Denies: hematuria Musc: Reports: other (left foot) Meds/Allergies Home Medications and Allergies Home Medications Medication Instructions Recorded Confirmed Last Taken Type [place] Plus Cold+Flu 1 packet PO Q4H PRN 07/23/20 12/27/20 09/05/20 09:29 History ascorbic acid (vitamin C) [Vitamin 500 mg PO DAILY@0800 07/23/20 12/27/20 12/24/20 History C] levetiracetam [Keppra] 500 mg PO BID@0800,199907/23/20 12/27/20 12/24/20 08:00 History pantoprazole 40 mg PO BID@07/23/20 12/27/20 12/24/20 History bisacodyl 10 mg [place] DAILY PRN 08/23/20 12/27/20 Unknown History amlodipine 5 mg PO DAILY@79909/05/20 12/27/20 12/24/20 History aspirin [Aspir-81] 81 mg PO DAILY@79909/05/20 12/27/20 12/24/20 History atorvastatin 40 mg PO DAILY@199909/05/20 12/27/20 12/23/20 History clopidogrel 75 mg PO DAILY@79909/05/20 12/27/20 12/24/20 History isosorbide mononitrate 30 mg PO DAILY@79909/05/20 12/27/20 12/24/20 History metoprolol tartrate 12.5 mg PO BID@799,199909/05/20 12/27/20 12/24/20 08:00 History sevelamer carbonate 800 mg PO TID@09/05/20 12/27/20 12/24/20 08:00 History Pro Stat Nutritional 15 ml PO BID@12/24/20 12/27/20 12/24/20 History acetaminophen 650 mg PO Q4H PRN MDD 3,000 mg 12/24/20 12/27/20 Unknown History cephalexin 500 mg PO BID 7 Days #14 cap 12/24/20 12/27/20 Unknown Rx diclofenac sodium [Voltaren] 2 - 4 g TOPICAL BID@12/24/20 12/27/20 12/24/20 History morphine concentrate See Rx Instructions .ROUTE .COMPLEX 12/24/20 12/27/20 12/23/20 08:00 History sacubitril-valsartan [Entresto] 1 tab PO BID@12/24/20 12/27/20 12/24/20 08:00 History hydrocodone-acetaminophen 1 tab PO BID PRN 12/27/20 12/27/20 Unknown History Allergies Allergy/AdvReac Type Severity Reaction Status Date / Time No Known Allergies Allergy Verified 12/24/20 11:48 Current Medications Current Medications Generic Name Dose Route Start Last Admin Trade Name Freq PRN Reason Stop Dose Admin Aspirin 81 mg 12/28/20 08:00 12/29/20 07:41 Aspirin 81 Mg Ec Tablet PO Not Given DAILY@0800 [facility] Atorvastatin Calcium 40 mg 12/28/20 20:00 12/29/20 20:33 Atorvastatin 40 Mg Tablet PO 40 mg DAILY@1999 [facility] Administration Enoxaparin Sodium 40 mg 12/27/20 23:49 12/28/20 00:44 Enoxaparin 40 Mg/0.4 Ml Syringe SUBCUT 40 mg Q24H [facility] Administration Famotidine 20 mg 12/27/20 23:49 12/30/20 00:03 Famotidine 20 Mg/2 Ml Inj IVP 20 mg Q12H [facility] Administration Linezolid 600 mg in 300 mls @ 300 mls/hr 12/28/20 01:00 12/30/20 01:06 Zyvox Premix IV Infused Q12H [facility] Infusion Protocol Imipenem/Cilastatin Sodium 250 100 mls @ 200 mls/hr 12/28/20 18:00 12/30/20 05:56 mg/ Sodium Chloride IV Infused Q12H [facility] Infusion Protocol Insulin Aspart 0 unit 12/28/20 08:00 12/30/20 07:28 Insulin Aspart 100 Unit/1 Ml SUBCUT Not Given TIDWM [facility] Protocol Isosorbide Mononitrate 30 mg 12/28/20 08:00 12/28/20 08:24 Isosorbide Mononitrate Er 30 Mg Tablet PO Not Given DAILY@0800 [facility] Levetiracetam 500 mg 12/28/20 08:00 12/29/20 20:33 Levetiracetam 500 Mg Tablet PO 500 mg BID@ [facility] Administration Magnesium Oxide 400 mg 12/29/20 18:00 12/29/20 17:26 Magnesium Oxide 400 Mg Tablet PO 12/31/20 09:00 400 mg BID [facility] Administration Metoprolol Tartrate 25 mg 12/28/20 08:00 12/28/20 08:25 Metoprolol Tartrate 25 Mg Tablet PO Not Given BID@ [facility] Midodrine 10 mg 12/27/20 23:49 12/30/20 00:11 Midodrine 5 Mg Tablet PO Not Given TID [facility] Morphine Sulfate 2 mg 12/27/20 23:49 12/28/20 15:29 Morphine 4 Mg/Ml Sdv 1 Ml IVP 2 mg Q4H PRN Administration SEVERE PAIN Ondansetron HCl 4 mg 12/27/20 23:49 12/29/20 17:33 Ondansetron 2 Mg/Ml Sdv 2 Ml IVP 4 mg Q8H PRN Administration vomiting, or N/V if npo Pantoprazole Sodium 40 mg 12/28/20 08:00 12/29/20 20:[address] 40 Mg Tablet PO 40 mg BID@, YANELI Administration Sacubitril/Valsartan 1 each 12/28/20 08:00 12/28/20 08:25 Sacubitril/Valsartan 24-26 Mg Tablet PO Not Given BID@ YANELI Sevelamer Carbonate 800 mg 12/28/20 08:00 12/29/20 20:33 Sevelamer 800 Mg Tablet PO 800 mg TID@,, YANELI Administration PFSH Acute PFSH: Medical History Anemia in CKD (chronic kidney disease) Atherosclerotic heart disease of [place] coronary artery without angina pectoris CHF (congestive heart failure) Chronic ulcer of ankle CKD (chronic kidney disease), stage V started hemodialysis 07/29/2020 Combined systolic and diastolic congestive heart failure Echo 08/04 demonstrates EF 35 to 40% COVID-19 (~01/2020) Diabetes mellitus History of ESBL E. coli infection Hypertension Multilevel degenerative disc disease has known hx of multilevel DJD, s/p spinal stimulator Peripheral neuropathy Polyneuropathy in other diseases classified elsewhere Seizure disorder Spinal cord stimulator status Spinal stenosis Type 2 diabetes mellitus Surgical History S/P CABG x 3 S/P dialysis catheter insertion (07/29/20) Giurgius S/P insertion of spinal cord stimulator Status post below knee amputation of right lower extremity Family History Mother Cancer Brother Lung disease Other Hyperlipidemia Hypertension Denies family history of Diabetes CAD (coronary artery disease) Clotting disorder Dementia Psychiatric illness Chronic kidney disease (CKD) Suicide Anesthesia complication Bleeding disorder Stroke Social History Alcohol intake: former Lives independently: No (Brother is his power of contract attorney, recently has had to be involved in more decisions) Housing: Senior [facility] Vitals/I&O/Wt Last Vital Signs Temp 98.2 F 12/30/20 07:45 Pulse 47 L 12/30/20 07:45 Resp 17 12/30/20 07:45 BP 111/50 12/30/20 07:45 Pulse Ox 91 12/30/20 07:45 12/29/20 12/30/20 12/30/20 22:59 06:59 14:59 Intake Total 520 / 920 400 / 1320 Balance 520 / 920 400 / 1320 Physical Exam Narrative: EXAM NARRATIVE: GENERAL: Averagely built and averagely nourished in no acute distress HEENT: Pupils equal round reactive to light. +pallor, No icterus. NECK: central trachea. No carotid bruit. CARDIOVASCULAR SYSTEM: S1-S2 regular. Grade 3/6 systolic murmur. RESPIRATORY SYSTEM: Right chest dialysis catheter in place; Chest clear to auscultation. No wheezes or rhonchi heard. ABDOMEN: Soft, nontender and nondistended. EXTREMITIES: Right BKA. Trace edema. Left foot with dry eschars on left lateral and anterior aspect of foot COURT ASSISTANT: Patient is alert. Urinary Catheter Management^: Straight: Cath Placed During This Visit: yes Urinary Catheter Date of Insertion: 12/27/20 Data Micro: Micro: Microbiology 12/27/20 20:33 Urine Culture - Pr eliminary Urine,Clean Catch Gram Negative R ods Other Data: Attestation for Other Data: I personally reviewed and interpreted the following: Other data: Duplex scan lower extremity artery (12/28/20) FINDINGS Abnormal resting KATELYN on the left side of 0.5. Moderate to heavy plaques in the left superficial femoral artery with elevated velocity in the proximal segment consistent with a greater than 70% stenosis Monophasic and continuous Doppler waveform in the infrapopliteal vessels on the left side CONCLUSIONS 1. Features of high-grade stenosis in the left superficial femoral artery at the proximal segment segment. 2. Possible collateral filling in the infrapopliteal vessels on the left side. 3. Abnormal resting KATELYN 0.5 on the left side suggesting moderately severe peripheral arterial disease. Compared to the study from 11/11/2019, the resting KATELYN on the left side has significantly decreased. TTE (12/28/20) CONCLUSIONS Please note that this is a limited study, therefore hemodynamic data was not performed. Cannot assess valvular regurgitation or stenosis 1-Mildly increased left ventricular cavity size. Severely decreased left ventricular systolic function. Left ventricular ejection fraction is estimated at 38 %. There is mid to distal septal and apical wall akinesis. 2-There is no pericardial effusion. 3-Due to limited nature of the study cannot compare it with the prior exam. 08/27/20 JOSEPH LV systolic function is mild to moderately reduced No evidence of vegetation/endocarditis noted Mild mitral regurgitation 08/24/20 Echo 1. Normal left ventricular cavity size and wall thickness. Moderately decreased left ventricular systolic function. Left ventricular ejection fraction is estimated at 30-35 %. Moderate septal hypokinesis. Grade I diastolic dysfunction (abnormal relaxation filling pattern), normal to mildly elevated filling pressures. 2. Normal right ventricular size and systolic function. 3. No significant valvular normality. 4. No significant change when compared to echocardiogram done a month ago. Stress test 05/2018 1. Small-sized paradoxical perfusion abnormality of mid to apical anterior wall likely represents attenuation artifact. 2. Small sized perfusion abnormality of entire inferior, apical septal and apical esparza. This likely represents old myocardial infarction/scarring with mild urmila-infarct ischemia in right coronary artery territory. 3. The left ventricular ejection fraction is reduced with a value of 34%. 4. There is mild global hypokinesis with moderate hypokinesis of the entire inferior wall. 5. There are no prior similar studies to compare. A&P Assessment and plan (1) Bradycardia: Bradycardia with low atrial /Junctional rhythm HR in 40's. -Completely asymptomatic -May proceed with Sx with somewhat elevated risk. This was discussed with the patient in detail and he is agreeable with the plan. -May use dopamine gtt and atropine as needed during Sx. Status: Acute (2) Pre-operative cardiovascular examination: Status: Acute (3) Gangrene of left foot: Status: Acute (4) Peripheral arterial disease: Status: Chronic (5) CHF (congestive heart failure): Status: Chronic Qualifiers: Heart failure chronicity: chronic Heart failure type: combined systolic and diastolic Qualified Code(s): I50.42 - Chronic combined systolic (congestive) and diastolic (congestive) heart failure (6) Atherosclerosis of coronary artery of [place] heart without angina pectoris: Status: Acute Qualifiers: Coronary Disease-Associated Artery/Lesion type: [place] artery Qualified Code(s): I25.10 - Atherosclerotic heart disease of [place] coronary artery without angina pectoris (7) CKD (chronic kidney disease), stage V: Status: Acute Additional A&P Information Dyslipidemia NSTEMI type 2 Epilepsy Thank you for allowing me to participate in patient's care. Please feel free to call with questions or concerns. Consult Attestations Time Spent in Patient Care: 16 - 35 minutes (>than 50% of time spent in counselling and/or direct pt care on unit) . Coding Level of Care Code Acute Clean Energy Policy Analyst for Chg Fwd Diagnoses Bradycardia R00.1 Pre-operative cardiovascular examination Z01.810 Gangrene of left foot I96 Peripheral arterial disease I73.9 CHF (congestive heart failure) I50.42 Heart failure chronicity: chronic Heart failure type: combined systolic and diastolic Atherosclerosis of coronary artery of [place] heart without angina pectoris I25.10 Coronary Disease-Associated Artery/Lesion type: [place] artery CKD (chronic kidney disease), stage V N18.5
[2020-12-30] MEDS: ondansetron 2 mg/ML SDV 2 mL 4 MG IVP (11:22)
--- NOTE | 2020-12-30 11:29 | PC.SOCIAL ---
IMM IMM updated, initialed and dated and copy placed in pt file and copt given to patient
--- NOTE | 2020-12-30 11:32 | PC.NURSE ---
patient stated that he could not take PO AM meds on an empty stomach. patient is currently NPO for possible surgery. offered PRN nausea medication with AM pills but patient declined and refused [address] Moscoso notified during rounds.
[2020-12-30 11:34] LABS: Glucose Point of Care 93 mg/dL (70-110)
--- NOTE | 2020-12-30 13:11 | PM.PN ---
Subjective Subjective: Interval history: Patient was seen and examined and he feels a whole lot better today. Patient currently getting hemodialysis Medications: Reviewed: Yes Vitals/I&O/Wt Last Vital Signs Temp 97.7 F 12/30/20 12:53 Pulse 39 L 12/30/20 12:53 Resp 18 12/30/20 12:53 BP 118/55 12/30/20 12:53 Pulse Ox 97 12/30/20 11:29 12/29/20 12/30/20 12/30/20 22:59 06:59 14:59 Intake Total 520 / 920 400 / 1320 Balance 520 / 920 400 / 1320 Physical Exam Narrative: EXAM NARRATIVE: Patient is conscious alert oriented BMI 27.4 Head and neck examination PERRLA no masses no cervical lymphadenopathy no jaundice Left foot shows two dry Eschars range in diameter between 3 x 5 cm, one is located at the posterior lateral aspect of the left foot towards the base of the left fifth toe and the other one is located towards the lower third of the left leg. Urinary Catheter Management^: Straight: Cath Placed During This Visit: yes Urinary Catheter Date of Insertion: 12/27/20 Data : 01/01/21 05:15 01/01/21 05:15 Micro: Microbiology 12/27/20 20:33 Urine Culture - Preliminary Urine,Clean Catch Escherichia coli A&P Assessment and plan (1) Chronic wound of extremity: At this point after further history taking physical examination and reviewing the chart and images of the CT scan of the left lower extremity with my personal interpretation. Also after reviewing the arterial duplex study Arterial duplex study did show CONCLUSIONS 1. Features of high-grade stenosis in the left superficial femoral artery at the proximal segment segment. 2. Possible collateral filling in the infrapopliteal vessels on the left side. 3. Abnormal resting KATELYN 0.5 on the left side suggesting moderately severe peripheral arterial disease. Compared to the study from 11/11/2019, the resting KATELYN on the left side has significantly decreased. From surgical standpoint of view likely the patient developed a pressure injury ulcers located on the lateral aspect of the left foot and lower third of the leg, dry eschars does not require surgical debridement at this point. Continue Betadine paint twice a day and leave open to air and focus on offloading turning in bed every 2 hours. Further cardiac services for potential evaluation of the vascularization of the left lower extremity Recommend to have the patient follow-up with wound care center upon discharge Status: Inactive Attestations Medical Necessity Statement*: Per admitting service Time Spent in Patient Care: (>than 50% of time spent in counselling and/or direct pt care on unit). Coding Level of Care Code Acute Auto Emissions Technician for Joelg Fwd Diagnoses Chronic wound of extremity
--- NOTE | 2020-12-30 14:33 | P.PN_ITS ---
Subjective Subjective: Interval history: Today patient is stating that he talked with his brother and decided that he would go with any kind of intervention whether it would be surgical debridement or amputation of his foot His heart rate has been ranging between 38-40 with normal hemodynamics He did receive 1 unit PRBC He received calcium for prolonged QTc interval and hypocalcemia I requested Dr. Knapp to evaluate him today Vitals/I&O/Wt Last Vital Signs Temp 97.7 F 12/30/20 12:53 Pulse 39 L 12/30/20 12:53 Resp 18 12/30/20 12:53 BP 118/55 12/30/20 12:53 Pulse Ox 97 12/30/20 11:29 12/29/20 12/30/20 12/30/20 22:59 06:59 14:59 Intake Total 520 / 920 400 / 1320 Balance 520 / 920 400 / 1320 Physical Exam Narrative: EXAM NARRATIVE: Patient was awake and alert S1, S2 sinus bradycardia no murmur appreciated Abdomen soft He was not happy with n.p.o. status Left foot with dry eschars left lateral border of heel and front part of his foot Dry gangrene EOMI, PERRLA No neurological deficits Right-sided dialysis catheter in place Urinary Catheter Management^: Straight: Cath Placed During This Visit: yes Urinary Catheter Date of Insertion: 12/27/20 Data : 12/30/20 05:27 12/30/20 05:27 Micro: Microbiology 12/27/20 20:33 Urine Culture - Preliminary Urine,Clean Catch Escherichia coli A&P Assessment and plan (1) Bradycardia: Status: Acute (2) Junctional rhythm: Status: Acute (3) Acute on chronic anemia: Status: Acute (4) Decubitus ulcer: Status: Acute (5) Gangrene of left foot: Status: Acute (6) Acute encephalopathy: Status: Acute (7) Chronic wound of extremity: Status: Acute Additional A&P Information Dry gangrene left foot Peripheral arterial disease as per art duplex scan Sepsis ruled out, did not meet criteria for sepsis at the time of admission He has been afebrile No leukocytosis Requested 3 operative cardiac clearance, appreciate cardiology recommendations Dr. Davenport updated, planning for application of Betadine and outpatient follow-up no plan for debridement Junctional rhythm No need of pacemaker as per cardiology evaluation, sinus bradycardia noted on telemetry and EKG as well TSH unremarkable, QTC prolongation secondary to bradycardia received calcium gluconate, magnesium 1.8, will replete Hypocalcemia hypomagnesemia: Repleted Acute on chronic anemia No active blood loss This seems secondary to chronic kidney disease status post 1 unit PRBC on 12/29 End-stage renal disease Sunday dialysis Hypoalbuminemia Albumin 2.7 Status post 1 unit of albumin Not a candidate of DVT prophylaxis due to anemia High risk for development of DVT and PE Renal dialysis diet Full code Attestations Medical Necessity Statement*: Anticipating discharge tomorrow if stays clinically stable Time Spent in Patient Care: 16 - 35 minutes Coding Level of Care Code Acute Community Relations Director for g Fwd Diagnoses Bradycardia R00.1 Junctional rhythm I49.8 Acute on chronic anemia D64.9 Decubitus ulcer L89.90 Gangrene of left foot I96 Acute encephalopathy G93.40 Chronic wound of extremity
[2020-12-30] MEDS: heparin 5,000 unit/mL INJ 1 mL 5000 UNIT SUBCUT ×2 (16:10→23:56)
[2020-12-30] MEDS: sevelamer 800 mg Tablet PO ×2 (16:12→20:54)
[2020-12-30] MEDS: midodrine 5 mg TABLET 10 MG PO ×2 (16:12→20:54)
[2020-12-30 16:39] LABS: Glucose Point of Care 96 mg/dL (70-110)
[2020-12-30] MEDS: magnesium oxide 400 mg tablet PO (17:29)
--- NOTE | 2020-12-30 20:10 | PM.PN ---
Subjective Subjective: Interval history: feels better today; awaiting decision regarding surgery on left leg HD was not performed yesterday due to low BP; metoprolol and entresto held, on midodrine Medications: Reviewed: Yes Vitals/I&O/Wt Last Vital Signs Temp 97.9 F 12/30/20 18:42 Pulse 40 L 12/30/20 18:42 Resp 18 12/30/20 18:42 BP 127/66 12/30/20 18:42 Pulse Ox 93 12/30/20 15:22 12/30/20 12/30/20 12/30/20 06:59 14:59 22:59 Intake Total 400 / 1320 1060 / 1060 Output Total 2300 / 2300 Balance 400 / 1320 -1240 / -1240 Weight last 48 hrs Weight 92.5 kg Physical Exam Const: COMMON NORMALS: no acute distress GENERAL APPEARANCE: cooperative Neck/C-Spine: OTHER: right tunneled IJ permcath Extremity: OTHER: right BKA Urinary Catheter Management^: Straight: Cath Placed During This Visit: yes Urinary Catheter Date of Insertion: 12/27/20 Data : 12/30/20 05:27 12/30/20 05:27 Micro: Microbiology 12/27/20 20:33 Urine Culture - Preliminary Urine,Clean Catch Escherichia coli A&P Additional A&P Information 1. ESRD, stable for HD today 2. dry gangrene left foot 3. UTI 4. Anemia 5. Mild hyponatremia HD tomorrow or Sunday depending on discharge planning Attestations Medical Necessity Statement*: per primary service Time Spent in Patient Care: 16 - 35 minutes Coding Level of Care Code Acute [employer] Parts Delivery Driver for Brandy Sanchez
[2020-12-30] MEDS: levETIRAcetam 500 mg Tablet PO (20:54)
[2020-12-30] MEDS: atorvastatin 40 mg Tablet PO (20:54)
[2020-12-30] MEDS: famotidine 20 mg Tablet PO (20:55)
[2020-12-30] MEDS: pantoprazole DR 40 mg Tablet PO (20:55)
[2020-12-30 21:09] LABS: Glucose Point of Care 113 mg/dL (70-110)
[2020-12-31] VITALS (9 sets, daily range): BP systolic 149–189; BP diastolic 53–65; PULSE 40–47; RESP 16–18; TEMP 36.6–37.2; O2SAT 91–94
[2020-12-31] MEDS: heparin 5,000 unit/mL INJ 1 mL 5000 UNIT SUBCUT (06:12)
[2020-12-31 06:38] LABS: Glucose Point of Care 93 mg/dL (70-110)
[2020-12-31 07:43] LABS: Basophils % 0.5 %; Eosinophils # 0.2 10^3/uL (0.0-0.8); Eosinophils % 2.3 %; Hematocrit 28.3 % (42.0-52.0); Hemoglobin 9.1 g/dL (11.7-16.6); Lymphocytes # 1.1 10^3/uL (0.8-4.8); Mean Corpuscular HGB Conc 32.2 g/dL (30.0-36.0); Mean Corpuscular Hemoglobin 31.6 pg (28.0-34.0); Mean Corpuscular Volume 98.3 fl (80-94); Mean Platelet Volume 9.1 fL (7.4-10.4); Monocytes # 0.8 10^3/uL (0.2-0.9); Monocytes % 9.6 %; Neutrophils # 6.07 10^3/uL (1.8-7.7); Nucleated Red Blood Cells % 0 %; Platelet Count 213 10^3/cmm (130-400); Red Blood Count 2.88 10^6/uL (4.1-5.3); Red Cell Distribution Width 13.2 % (12.1-15.1); White Blood Count 8.2 10^3/uL (4.0-10.0)
[2020-12-31] MEDS: famotidine 20 mg Tablet PO ×2 (07:48→21:17)
[2020-12-31] MEDS: aspirin 81 mg EC Tablet PO (07:48)
[2020-12-31] MEDS: levETIRAcetam 500 mg Tablet PO ×2 (07:48→20:31)
[2020-12-31] MEDS: magnesium oxide 400 mg tablet PO (07:49)
[2020-12-31] MEDS: pantoprazole DR 40 mg Tablet PO ×2 (07:49→20:31)
[2020-12-31] MEDS: sevelamer 800 mg Tablet PO ×3 (07:49→20:31)
[2020-12-31] MEDS: midodrine 5 mg TABLET 10 MG PO ×3 (07:49→21:17)
[2020-12-31 07:57] LABS: Alanine Aminotransferase 6 U/L (0-41); Albumin Level 2.7 g/dL (3.5-5.2); Alkaline Phosphatase 54 IU/L (40-130); Anion Gap 14.2 (5-19); Aspartate Amino Transferase 14 U/L (0-40); Blood Urea Nitrogen 21 mg/dL (8-23); Calcium 7.9 mg/dL (8.5-10.5); Carbon Dioxide 27 mmol/L (22-29); Chloride 95 mmol/L (98-107); Globulin 2.7 g/dL (1.3-4.6); Glucose 87 mg/dL (65-115); Magnesium 1.7 mg/dL (1.7-2.3); Osmolality Calculated 276 mOsm/kg (285-295); Phosphorus 2.5 mg/dL (2.5-4.5); Potassium 4.2 mmol/L (3.5-5.1); Sodium 132 mmol/L (136-145); Total Bilirubin 0.3 mg/dL (0.15-1.2); Total Protein 5.4 g/dL (6.6-8.7)
--- NOTE | 2020-12-31 10:35 | PM.PN ---
Subjective Subjective: Interval history: Feels ok. Some discomfort in his foot, otherwise no new issues. No plans for debridement. ? possible CTA No edema and no other volume symptoms No uremic Sx Pulse still low but Bp remains robust Medications: Reviewed: Yes Vitals/I&O/Wt Last Vital Signs Temp 98.6 F 12/31/20 07:58 Pulse 47 L 12/31/20 07:58 Resp 16 12/31/20 07:58 BP 155/55 12/31/20 07:58 Pulse Ox 93 12/31/20 07:58 12/30/20 12/31/20 12/31/20 22:59 06:59 14:59 Intake Total 1060 / 1060 550 / 1610 100 / 100 Output Total 2300 / 2300 Balance -1240 / -1240 550 / -690 100 / 100 Weight last 48 hrs Weight 92.5 kg Physical Exam Narrative: EXAM NARRATIVE: Constitutional: Awake, comfortable HEENT: Wet mucosa, no jvp, non icteric Lungs: Bilaterally clear without discernible wheeze, rales in all lung zones CVS: S1 S2, no murmurs Abdo: Soft, BS ok Ext 4: Minimal edema, peripheral perfusion with no cyanosis, foot with swelling, dressed Neurological: Grossly non-focal Urinary Catheter Management^: Straight: Cath Placed During This Visit: yes Urinary Catheter Date of Insertion: 12/27/20 Data : 12/31/20 07:19 12/31/20 07:19 Micro: Microbiology 12/27/20 20:33 Urine Culture - Final Urine,Clean Catch Escherichia coli esbl A&P Additional A&P Information 1. ESRD Plan for dialysis tomorrow, back to MWF schedule next week 3K bath, ultrafiltration 2-3 L Dose medication for GFR less than 15 on dialysis 2. Chemistry Noncritical aberration continue to monitor 3. Left foot diabetic foot wound Under the care of wound care, surgery, antibiotics to include Zyvox and Primaxin. No debridement appreciated ? need for CTa with runoff > per surgery 4. Hemodynamics Noted to be bradycardic, Bp now more robust. Dennis Carreon MD Nephrology [phone] Patient seen and examined via telemedicine, with the assistance of the bedside RN > 25 min spent in evaluation and mgmt of patient Attestations Medical Necessity Statement*: eval for ESRD Coding Level of Care Code Acute Habitat Management Coordinator for Chg Fwsandra
[2020-12-31 11:16] LABS: Glucose Point of Care 110 mg/dL (70-110)
--- NOTE | 2020-12-31 11:21 | P.PN_ITS ---
Subjective Subjective: Interval history: Dr. Davenport is not planning for debridement or amputation, requested Dr. Knapp to see him yesterday who gave clearance in case he needs any intervention Dr. Bryan to see him tomorrow for peripheral vascular disease we will make him n.p.o. after midnight Advance his diet today to renal dialysis, due for dialysis session today Patient is a bit frustrated with his prolonged hospitalization, he was anticipating surgical intervention on his left foot dry gangrene Vitals/I&O/Wt Last Vital Signs Temp 98.6 F 12/31/20 11:08 Pulse 43 L 12/31/20 11:08 Resp 16 12/31/20 11:08 BP 149/53 12/31/20 11:08 Pulse Ox 91 12/31/20 11:08 12/30/20 12/31/20 12/31/20 22:59 06:59 14:59 Intake Total 1060 / 1060 550 / 1610 100 / 100 Output Total 2300 / 2300 Balance -1240 / -1240 550 / -690 100 / 100 Weight last 48 hrs Weight 92.5 kg Physical Exam Narrative: EXAM NARRATIVE: Patient was laying comfortably in his bed Dry gangrene no active drainage Not complaining of active pain No neurological deficits Soft abdomen S1, S2 sinus bradycardia No signs of heart failure, Awake alert oriented x3 No audible stridor or wheezing saturating well on room air Urinary Catheter Management^: Straight: Cath Placed During This Visit: yes Urinary Catheter Date of Insertion: 12/27/20 Data : 12/31/20 07:19 12/31/20 07:19 Micro: Microbiology 12/27/20 20:33 Urine Culture - Final Urine,Clean Catch Escherichia coli esbl A&P Assessment and plan (1) Pre-operative cardiovascular examination: Status: Acute (2) Bradycardia: Status: Acute (3) Junctional rhythm: Status: Acute (4) Acute on chronic anemia: Status: Acute (5) Decubitus ulcer: Status: Acute (6) Gangrene of left foot: Status: Acute Additional A&P Information Dry gangrene left foot Dr. Pearce to evaluate him tomorrow morning for possible intervention Dr. Davenport is not planning for any intervention at this time, he recommended Betadine and outpatient wound care follow-up Dr. Knapp did clear him for surgery in case any intervention is required Heart rate seems to be around 40-43 sinus bradycardia with intermittent junctional rhythm Can use dopamine drip in perioperative If required For QTC prolongation he was treated for hypocalcemia, magnesium was repleted His QTC prolongation is due to bradycardia Acute on chronic anemia Status post blood transfusion 12/29 hemoglobin stable End-stage renal disease Sunday dialysis Hypoalbuminemia received unit of albumin which improved his blood pressure to a great extent Since his anemia is due to chronic kidney disease I will go ahead and start him on DVT prophylaxis after his intervention by Dr. 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
[2020-12-31] MEDS: linezolid premix 600 MG/300 ML PREMIX 300 MG IV ×2 (12:22)
[2020-12-31 15:52] LABS: Glucose Point of Care 102 mg/dL (70-110)
[2020-12-31 16:55] LABS: Glucose Point of Care 98 mg/dL (70-110)
--- NOTE | 2020-12-31 19:33 | PM.CONSULT ---
Providers/Reason For Consult Consulting Physician/Specialty*: Interventional cardiology Reason for Consult*: Left foot gangrene with critical limb ischemia Attending Physician: Hamilton Moscoso MD History of Present Illness History of Present Illness I have been asked to assist in care of Moy Fernandez is a 70 year old male with past medical history significant for diabetes mellitus, CABG, bradycardia, cellulitis recurrent, left foot gangrene, history of severe peripheral arterial disease status post right below the knee amputation and chronic kidney disease underwent vascular ultrasound which was suggestive of occluded left SFA with below the knee disease and collateralization but not a good flow. Patient has left leg and foot swelling. We have been asked if we can help in in his revascularization for limb salvage. I have visited the patient and examined him he has left leg swollen cellulitis and gangrene his foot. We discussed regarding peripheral angiogram percutaneous angioplasty in for limb salvage. He understand risk for major minor bleed urgent emergent surgery vascular damage acute limb ischemia leading to amputation. He would like to proceed with it. He would like to consider drug-coated balloon though he understand FDA warning regarding mortality in that subset. He would like to proceed with it. Review of Systems General: Reports: 10 or more systems reviewed and unremarkable except in HPI and below and ROS unobtainable due to medical condition Narrative: fever, leg pain, poor sugar control. no change in vision, no lee, no diarrhea, +AMS, leg pain Const: Reports: malaise ENMT: Denies: enlarged tonsils Card: Denies: chest pain, palpitations or lightheadedness Resp: Denies: dyspnea or hemoptysis GI: Denies: hematochezia : Denies: hematuria Musc: Reports: other (left foot); Denies: joint warmth All/Imm: Denies: acute wheezing Meds/Allergies Home Medications and Allergies Home Medications Medication Instructions Recorded Confirmed Last Taken Type [place] Plus Cold+Flu 1 packet PO Q4H PRN 07/23/20 12/27/20 09/05/20 09:29 History ascorbic acid (vitamin C) [Vitamin 500 mg PO DAILY@0800 07/23/20 12/27/20 12/24/20 History C] levetiracetam [Keppra] 500 mg PO BID@0800,199907/23/20 12/27/20 12/24/20 08:00 History pantoprazole 40 mg PO BID@07/23/20 12/27/20 12/24/20 History bisacodyl 10 mg MO DAILY PRN 08/23/20 12/27/20 Unknown History amlodipine 5 mg PO DAILY@79909/05/20 12/27/20 12/24/20 History aspirin [Aspir-81] 81 mg PO DAILY@79909/05/20 12/27/20 12/24/20 History atorvastatin 40 mg PO DAILY@199909/05/20 12/27/20 12/23/20 History clopidogrel 75 mg PO DAILY@79909/05/20 12/27/20 12/24/20 History isosorbide mononitrate 30 mg PO DAILY@79909/05/20 12/27/20 12/24/20 History metoprolol tartrate 12.5 mg PO BID@799,199909/05/20 12/27/20 12/24/20 08:00 History sevelamer carbonate 800 mg PO TID@09/05/20 12/27/20 12/24/20 08:00 History Pro Stat Nutritional 15 ml PO BID@12/24/20 12/27/20 12/24/20 History acetaminophen 650 mg PO Q4H PRN MDD 3,000 mg 12/24/20 12/27/20 Unknown History cephalexin 500 mg PO BID 7 Days #14 cap 12/24/20 12/27/20 Unknown Rx diclofenac sodium [Voltaren] 2 - 4 g TOPICAL BID@12/24/20 12/27/20 12/24/20 History morphine concentrate See Rx Instructions .ROUTE .COMPLEX 12/24/20 12/27/20 12/23/20 08:00 History sacubitril-valsartan [Entresto] 1 tab PO BID@12/24/20 12/27/20 12/24/20 08:00 History hydrocodone-acetaminophen 1 tab PO BID PRN 12/27/20 12/27/20 Unknown History Allergies Allergy/AdvReac Type Severity Reaction Status Date / Time No Known Allergies Allergy Verified 12/24/20 11:48 Current Medications Current Medications Generic Name Dose Route Start Last Admin Trade Name Freq PRN Reason Stop Dose Admin Aspirin 81 mg 12/28/20 08:00 12/31/20 07:48 Aspirin 81 Mg Ec Tablet PO 81 mg DAILY@0800 YANELI Administration Atorvastatin Calcium 40 mg 12/28/20 20:00 12/30/20 20:54 Atorvastatin 40 Mg Tablet PO 40 mg DAILY@1999 YANELI Administration Famotidine 20 mg 12/30/20 21:00 12/31/20 07:48 Famotidine 20 Mg Tablet PO 20 mg BID@0900,2100 YANELI Administration Heparin Sodium (Beef Lung) 5,000 unit 12/30/20 15:00 12/31/20 06:12 Heparin 5,000 Unit/Ml Inj 1 Ml SUBCUT 5,000 unit Q8H YANELI Administration Linezolid 600 mg in 300 mls @ 300 mls/hr 12/28/20 01:00 12/31/20 14:00 Zyvox Premix IV Infused Q12H YANELI Infusion Protocol Imipenem/Cilastatin Sodium 250 100 mls @ 200 mls/hr 12/28/20 18:00 12/31/20 18:01 mg/ Sodium Chloride IV Infused Q12H [facility] Infusion Protocol Insulin Aspart 0 unit 12/28/20 08:00 12/31/20 16:48 Insulin Aspart 100 Unit/1 Ml SUBCUT Not Given TIDWM [facility] Protocol Levetiracetam 500 mg 12/28/20 08:00 12/31/20 07:48 Levetiracetam 500 Mg Tablet PO 500 mg BID@0800,1999 [facility] Administration Midodrine 10 mg 12/27/20 23:49 12/31/20 16:43 Midodrine 5 Mg Tablet PO 10 mg TID YANELI Administration Morphine Sulfate 2 mg 12/27/20 23:49 12/28/20 15:29 Morphine 4 Mg/Ml Sdv 1 Ml IVP 2 mg Q4H PRN Administration [facility] Ondansetron HCl 4 mg 12/27/20 23:49 12/30/20 11:22 Ondansetron 2 Mg/Ml Sdv 2 Ml IVP 4 mg Q8H PRN Administration vomiting, or N/V if npo Pantoprazole Sodium 40 mg 12/28/20 08:00 12/31/20 07:[address] 40 Mg Tablet PO 40 mg BID@ [facility] Administration Sevelamer Carbonate 800 mg 12/28/20 08:00 12/31/20 16:43 Sevelamer 800 Mg Tablet PO 800 mg TID@08,,20 YANELI Administration PFSH Acute PFSH: Medical History Anemia in CKD (chronic kidney disease) Atherosclerotic heart disease of [place] coronary artery without angina pectoris CHF (congestive heart failure) Chronic ulcer of ankle CKD (chronic kidney disease), stage V started hemodialysis 07/29/2020 Combined systolic and diastolic congestive heart failure Echo 08/04 demonstrates EF 35 to 40% COVID-19 (~01/2020) Diabetes mellitus History of ESBL E. coli infection Hypertension Multilevel degenerative disc disease has known hx of multilevel DJD, s/p spinal stimulator Peripheral neuropathy Polyneuropathy in other diseases classified elsewhere Seizure disorder Spinal cord stimulator status Spinal stenosis Type 2 diabetes mellitus Surgical History S/P CABG x 3 S/P dialysis catheter insertion (07/29/20) Giurgius S/P insertion of spinal cord stimulator Status post below knee amputation of right lower extremity Family History Mother Cancer Brother Lung disease Other Hyperlipidemia Hypertension Denies family history of Diabetes CAD (coronary artery disease) Clotting disorder Dementia Psychiatric illness Chronic kidney disease (CKD) Suicide Anesthesia complication Bleeding disorder Stroke Social History Alcohol intake: former Lives independently: No (Brother is his power of environmental attorney, recently has had to be involved in more decisions) Housing: Residential Dietary Habits: Current diet type/program: regular Vitals/I&O/Wt Last Vital Signs Temp 98.9 F 12/31/20 16:00 Pulse 40 L 12/31/20 16:00 Resp 16 12/31/20 16:00 BP 151/55 12/31/20 16:00 Pulse Ox 93 12/31/20 16:00 12/31/20 12/31/20 12/31/20 06:59 14:59 22:59 Intake Total 550 / 1610 400 / 400 100 / 500 Balance 550 / -690 400 / 400 100 / 500 Weight last 48 hrs Weight 203 lb 14.841 oz Physical Exam Narrative: EXAM NARRATIVE: GENERAL: Patient is alert, awake and oriented x3. NECK: No jugular vein distension. HEENT: No cyanosis. No icterus. No pallor. HEART: Regular S1 and S2. No murmur, rub or gallop. LUNGS: Clear to auscultate bilaterally. ABDOMEN: Soft, nontender and nondistended. Positive bowel sounds. No guarding, rebound or tenderness. CENTRAL NERVOUS SYSTEM: Grossly nonfocal. EXTREMITIES: Lower extremities with the right side amputation and left lower extremity absent pulses with gangrenous foot swelling Urinary Catheter Management^: Straight: Cath Placed During This Visit: yes Urinary Catheter Date of Insertion: 12/27/20 Data Micro: Micro: Microbiology 12/27/20 20:33 Urine Culture - Fi nal Urine,Clean Catch Escherichia col i esbl A&P Assessment and plan (1) Bradycardia: Patient has significant bradycardia despite of discontinuation of latoya jacky. He may will be needing temporary pacemaker before peripheral angiogram since he will be under sedation and may can further deteriorate with heart rate. Patient has been explained all risk benefit and alternative for the procedure would like to proceed with temporary pacemaker placement. Status: Acute (2) Gangrene of left foot: Patient require limb salvage attempt for revascularization. We will proceed with peripheral angiogram through right groin approach and percutaneous intervention if indicated. 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 Continue current regimen Status: Acute Qualifiers: Coronary Disease-Associated Artery/Lesion type: [place] artery Qualified Code(s): I25.10 - Atherosclerotic heart disease of [place] coronary artery without angina pectoris (6) CKD (chronic kidney disease), stage V: Patient is on dialysis. Continue current regimen, repeat dialysis after peripheral angiogram tomorrow Status: Acute Additional A&P Information Require continuation hospitalization for above defined care. Consult Attestations Medical Necessity Statement: Patient require continuation hospitalization for above defined care. Coding Level of Care Code New Pt Acute Site Medical Director for [facility] Fwd Patient Type New History Detailed Exam Detailed Medical Decision Making Moderate Complexity Diagnoses Bradycardia R00.1 Gangrene of left foot I96 Peripheral arterial disease I73.9 CHF (congestive heart failure) I50.42 Heart failure chronicity: chronic Heart failure type: combined systolic and diastolic Atherosclerosis of coronary artery of [place] heart without angina pectoris I25.10 Coronary Disease-Associated Artery/Lesion type: [place] artery CKD (chronic kidney disease), stage V N18.5
[2020-12-31] MEDS: atorvastatin 40 mg Tablet PO (20:32)
[2020-12-31 20:39] LABS: Glucose Point of Care 92 mg/dL (70-110)
[2021-01-01] VITALS (52 sets, daily range): BP systolic 101–173; BP diastolic 55–86; PULSE 45–77; RESP 0–29; TEMP 35.8–36.9; O2SAT 93–100
[2021-01-01] MEDS: linezolid premix 600 MG/300 ML PREMIX 300 MG IV ×2 (00:11→15:14)
[2021-01-01 05:42] LABS: Basophils # 0.1 10^3/uL (0.0-0.1); Basophils % 0.8 %; Eosinophils # 0.2 10^3/uL (0.0-0.8); Eosinophils % 2.9 %; Hematocrit 28.5 % (42.0-52.0); Hemoglobin 9.4 g/dL (11.7-16.6); Lymphocytes # 1.3 10^3/uL (0.8-4.8); Lymphocytes % 16.9 %; Mean Corpuscular Hemoglobin 31.6 pg (28.0-34.0); Mean Platelet Volume 8.9 fL (7.4-10.4); Monocytes # 0.7 10^3/uL (0.2-0.9); Monocytes % 9.5 %; Neutrophils # 5.34 10^3/uL (1.8-7.7); Neutrophils % 69.4 %; Nucleated Red Blood Cells % 0 %; Platelet Count 238 10^3/cmm (130-400); Red Blood Count 2.97 10^6/uL (4.1-5.3); Red Cell Distribution Width 12.8 % (12.1-15.1); White Blood Count 7.7 10^3/uL (4.0-10.0)
[2021-01-01 06:09] LABS: Anion Gap 16.3 (5-19); Blood Urea Nitrogen 27 mg/dL (8-23); Calcium 8.6 mg/dL (8.5-10.5); Carbon Dioxide 25 mmol/L (22-29); Chloride 93 mmol/L (98-107); Creatinine Clr Calc Pharmacy 16.1697; Glucose 81 mg/dL (65-115); Osmolality Calculated 274 mOsm/kg (285-295); Potassium 4.3 mmol/L (3.5-5.1); Sodium 130 mmol/L (136-145)
--- NOTE | 2021-01-01 06:24 | PC.NURSE ---
SHIFT SUMMARY Has rested well tonight. Dr Laguna in to see pt in the evening. Is NPO since midnight for procedure today. Dried eschar wounds to left foot/ankle. Able to obtain pulse in left foot using doppler. Edema to LLE. Right BKA with dressing to wound right stump. Continues to be bradycardic with HR in 30's-40's range all night. Is asymptomatic with this. Tells me he wants to go home.
[2021-01-01 06:41] LABS: Glucose Point of Care 101 mg/dL (70-110)
--- NOTE | 2021-01-01 08:38 | XACV_ITS ---
Exam Room: [facility] Ht: 180 cm Wt: 92 kg BSA: 2.17 m2 Gender: Male : 1950 Exam Priority: Routine Procedure(s): Procedure Description: Diagnostic procedure Procedure Description: Peripheral Cath Diagnostic Procedure Procedure Description: Abdominal aortic angiography Procedure Description: Lower extremities' angiography Procedure Description: Peripheral vascular Intervention Procedure Description: PV Balloon Procedure Description: PV Atherectomy Procedure Description: Miscellaneous Procedure Description: Temporary Pacemaker Insertion Diagnostic Cath Status: Urgent PCI Status: Urgent Lower Extremity Interventional Findings Through right common femoral artery six Spanish long sheath was placed before left superficial femoral artery. With the help of Glidewire and seeker. We were able to cross the lesion after somewhat difficulty in to anterior tibial vessel. Viper wire was exchanged. Using 2.0 CSI arthrectomy multiple runs of atherectomy were performed in the proximal to distal left SFA, multiple balloon angioplasties were performed with drug-coated balloon. We then crossed into anterior tibial and peroneal artery both were dilated with balloon angioplasty. Excellent angiographic result was obtained. Two-vessel runoff was noted up to the left foot. . Conclusions Reason for peripheral angiogram and intervention: Critical limb ischemia, nonhealing ulcer Abdominal angiogram: No abdominal aneurysm noted abdominal aorta has luminal irregularities. Bilateral common iliac, external iliac, internal iliac, common femoral arteries has luminal irregularities. No significant stenosis noted. Bilateral profundofemoral arteries has luminal irregularity Mild to moderate proximal left SFA stenosis mid to distal left SFA is subtotally occluded it is a highly calcified vessel. Left popliteal artery has luminal irregularity, left tibioperoneal trunk has luminal irregularity. Proximal left anterior tibial vessel has high-grade stenosis proximal tibioperoneal left artery has moderate to severe stenosis, posterior tibial vessel on the left side is chronically occluded may reconstitute distally through anterior tibial vessel in the foot. Right SFA has 100% proximal occlusion does not appear to be reconstituted. Below the knee vessels on the right side were not analyzed . Recommendations 1-Return to inpatient for close monitoring and routine cath care2-Risk factor modification for secondary prevention3-Statin and aspirin 81 mg life--long, if tolerated 4- C ontinue Plavix 75mg p.o. daily for three months . 5-Continue optimal medical management6-Follow up with Dr. Pearce in four weeks and your primary care in 10 days. Post-op Diagnosis a - Pressures Phase:Rest AO : 142 / 53 ( 84 ) @ 9:18:00 AM 145 / 59 ( 90 ) @ 9:47:00 AM 137 / 58 ( 85 ) @ 9:54:00 AM 124 / 53 ( 79 ) @ 10:10:00 AM 107 / 58 ( 79 ) @ 10:33:00 AM 103 / 58 ( 77 ) @ 10:38:00 AM Hemodynamic Data Phase:Rest AO : 142.0 / 53.0 ( 84.0 ) @ 9:18:00 AM 145.0 / 59.0 ( 90.0 ) @ 9:47:00 AM 137.0 / 58.0 ( 85.0 ) @ 9:54:00 AM 124.0 / 53.0 ( 79.0 ) @ 10:10:00 AM 107.0 / 58.0 ( 79.0 ) @ 10:33:00 AM 103.0 / 58.0 ( 77.0 ) @ 10:38:00 AM Clinical Evaluation EBL: 5mL-10mL Procedural Details Procedure Consent Obtained. Pre-Procedure Time Out. Identified patient by full name and date of as verbalized by the patient/guarantor. Does the consent match the physician's order: Yes. Accurate & Complete Informed Consent: Yes. Inpatient/Outpatient History & Physical on Chart: Yes. If H&P is completed, is and addenduem needed: No; If yes, is the addendum complete: N/A. Visualize and Verify Site with Patient/Guarantor: N/A. Relevant Radiology Images available: Yes. The risks, benefits, and alternatives of sedation and/or procedure were discussed by physician. The patient agrees to continue. Procedure started. Cookie Jimenez RN circulating with Torey Lawson RN. Correct patient, site and procedure confirmed by cath team. Current diagnosis: PAD, Limb salvage procedure for gangrenous left lower extremity, H/O right below the knee amputation, Persisting Bradycardia. PERRLA. Strong, equal hand lmft bilaterally. Lungs clear x 5 lobes. IV Site on Arrival: 20 gauge in the right anticubital. IV Fluids: 0.9% NaCl at KVO. 50 mL infused prior to cardiac cath rn. Pre Procedural Pulses: right dorsalis pedis was Absent. Pre Procedural Pulses: right posterior tibial was Absent. Pre Procedural Pulses: left dorsalis pedis was Doppled. Pre Procedural Pulses: left posterior tibial was Doppled. Oxygen started at 2liters/min via nasal canula. Oxygen started at 2liters/min via nasal canula. right groin was prepped with chloroprep then draped in the usual sterile fashion. left groin was prepped with chloroprep then draped in the usual sterile fashion. Physician notified. Baseline sample Acquired. HR: 43 BPM. Equipment: 6F - Femoral. Cardiac Cath Pack. ACIST Manifold Kit Model BT 2000. Heparinized Saline (2 units/mL), 1000 mL bag. Kit, Micropuncture x 2. Physician arrived. Physician scrubbed in. Time out performed with cath team. Family unavailable due to current Covid restrictions. Lidocaine 1% infiltrated to the right groin. Venous access obtained with micropuncture kit. Temporary pacer insertion through the 6 fr venous sheath and attached to generator. mA: 5/Rate: 80/Sensitivity: 2. Repositioning the TPM. mA: 5/Rate: 60/Sensitivity: 2. Lidocaine 1% infiltrated to the left groin. Arterial access obtained with micropuncture set. A 5 cape verde[place] UF catheter in over the wire. Wire out. Abdominal aortogram performed in AP @ 10 mL/sec for a total of 30 mL. glidewire in through the UF catheter. Glidewire advanced down the left SFA, UF catheter out. Sheath upsized to a 6 Fr. Seeker support catheter in over the exchange wire to the TP trunk. Hand injection performed through the seeker support catheter in DSA. Viperwire Advance in through the seeker support catheter and advanced to the left perioneal. Diamondback 360 Peripheral 2.0 [place] in over the Viperwire. Katharine tested outside of the body. Orbital Atherectomy of the Left SFA performed. Diamondback 360 Peripheral 2.0 Katharine out over the Viperwire. Results checked. Left superficial femoral selected and arteriogram with runoff performed @ 10 mL/sec for a total of 30 mL. Diamondback 360 Peripheral 1.25 [place] in over the Viperwire. Katharine tested outside of the body. Orbital Atherectomy of the Left Ostial TP trunk performed. Inflation number : 1 A AB ARMADA 14 OTW [id number] was prepped and advanced across the Tibial Peroneal Trunk, Left , then inflated to 10 ANASTASIA for 2:05 seconds. Balloon pulled back onto the Viperwire. Viperwire redirected to the left AT. Inflation number : 1 A AB ARMADA 14 OTW [id number] was prepped and advanced across the Proximal Anterior Tibial, Left , then inflated to 23 ANASTASIA for 2:09 seconds. Balloon out over the Viperwire. Seeker support catheter in over the Viperwire to the Left AT. Viperwire out. Glidewire in through the Seeker Support catheter. Seeker Support catheter out over the glidewire. ACT drawn. Results 149 seconds. Therapeutic limits - pre-heparin administration 90-150 seconds and monitoring heparin during a vascular procedure >250 seconds. Side port of sheath attached to Normal Saline flush at KVO to maintain patency. Inflation number : 1 A AB ARMADA 35 OTW [id number] was prepped and advanced across the Superficial Femoral, Left , then inflated to 6 ANASTASIA for 2:05 seconds. Inflation number: 2 The AB ARMADA 35 OTW [id number] was reinflated across the Superficial Femoral, Left, to 6 ANASTASIA for 1:08 seconds. Inflation number: 3 The AB ARMADA 35 OTW [id number] was reinflated across the Superficial Femoral, Left, to 8 ANASTASIA for 2:00 seconds. Inflation number: 4 The AB ARMADA 35 OTW [id number] was reinflated across the Superficial Femoral, Left, to 8 ANASTASIA for 1:02 seconds. Inflation number: 5 The AB ARMADA 35 OTW [id number] was reinflated across the Superficial Femoral, Left, to 8 ANASTASIA for 1:01 seconds. Balloon out over the glidewire. Left superficial femoral selected and arteriogram with runoff performed @ 10 mL/sec for a total of 30 mL. Seeker support catheter in over the glidewire to the Left TP Trunk. Peripheral Intervention Status : Urgent. Hand injection performed through the seeker support catheter in DSA of the left AT and TP. Hand injection performed through the seeker support catheter in DSA of the left AT and TP. Glidewire in through the Seeker Support Catheter. Seeker Support catheter over the glidewire. Sheath upsized to a 6 Fr. Glidewire out. A Right femoral angiogram was performed to determine safe placement of closure device. Sheath(s) sutured into position with 2-0 silk and sterile 4x4's and Op-site applied over the site. No oozing or signs and symptoms of hematoma noted. Arterial sheath flushed and connected to tranducer and pressure bag with heparinized saline. Post Procedure: Pulses reassessed and unchanged. PERRLA. Strong, equal hand lmft bilaterally. No VTE prophylaxis required. Medication's Wasted: Lidocaine 1% = 15 mL. Medication's Wasted: Heparin = 1000 units. Total IV fluids: 73 mL. Post-op diagnosis: complete occlusin of the left SFA/PT. High grade lesion of the mid PT. Moderatly severe lesion of the Proximal AT. S/P orbital atherectomy of the left SFA/Peroneal and balloon angioplasty of the SFA, AT & PT with reasonably good 2 vessel runoff. Complications: none. Estimated blood loss: 5mL-10mL. A Suture was successful obtaining hemostatsis at the Right Femoral vein insertion site. A Suture was successful obtaining hemostatsis at the Left Femoral artery insertion site. Procedure completed. Patient transferred by bed to ICU. Vital chart was stopped. Access Site Site: Right Femoral vein Sheath Size: 6 Fr Hemostasis Method: Suture Hemostasis Success: Successful Site: Left Femoral artery Sheath Size: 6 Fr Hemostasis Method: Suture Hemostasis Success: Successful Procedure Medications Start: 9:13 AM Stop: 9:13 AM Medication: Fentanyl Amount: 50 mcg Route: I.V. Start: 9:41 AM Stop: 9:41 AM Medication: Versed Amount: 1 mg Route: I.V. Start: 9:41 AM Stop: 9:41 AM Medication: Fentanyl Amount: 25 mcg Route: I.V. Start: 9:49 AM Stop: 9:49 AM Medication: Versed Amount: 1 mg Route: I.V. Start: 10:19 AM Stop: 10:19 AM Medication: Versed Amount: 1 mg Route: I.V. Start: 10:21 AM Stop: 10:21 AM Medication: Heparin Amount: 5000 units Route: I.V. Start: 10:36 AM Stop: 10:36 AM Medication: Versed Amount: 1 mg Route: I.V. Start: 10:36 AM Stop: 10:36 AM Medication: Fentanyl Amount: 25 mcg Route: I.V. Start: 10:50 AM Stop: 10:50 AM Medication: Versed Amount: 1 mg Route: I.V. Start: 10:51 AM Stop: 10:51 AM Medication: Fentanyl Amount: 25 mcg Route: I.V. Start: 11:16 AM Stop: 11:16 AM Medication: Heparin Amount: 3000 units Route: I.V. Start: 11:18 AM Stop: 11:18 AM Medication: Versed Amount: 1 mg Route: I.V. Start: 11:18 AM Stop: 11:18 AM Medication: Fentanyl Amount: 25 mcg Route: I.V. Start: 11:24 AM Stop: 11:24 AM Medication: Fentanyl Amount: 50 mcg Route: I.V. Start: 11:27 AM Stop: 11:27 AM Medication: Nitrogylcerin Amount: 400 mcg Route: I.A. Start: 11:33 AM Stop: 11:33 AM Medication: Nitrogylcerin Amount: 200 mcg Route: I.A. Start: 11:46 AM Stop: 11:46 AM Medication: Plavix Amount: 300 mg Route: P.O. I, the attending physician, have reviewed and verified all procedure medications. Yes, all medications given per verbal order History/Risk Factors Hypertension: Yes Peripheral Arterial Disease (PAD): Yes Myocardial Infarction (ME): No Obesity: Yes Renal Disease: No Tobacco Use: Former Dialysis: Current Prior Interventions PCI: No CABG: Yes Valve Surgery: No Report Signatures Finalized by Hamilton Pearce MD on 01/17/2021 06:35 PM
--- NOTE | 2021-01-01 08:39 | PC.SOCIAL ---
IMM update IMM updated with patient and brother. Copy left at bedside. Verbalized an understanding. Initialled, dated, timed and placed in chart.
--- NOTE | 2021-01-01 09:40 | W.PM.OPSUD ---
Surgery/Procedure H&P Update DATE OF PROCEDURE: January 01, 2021 DATE H&P PERFORMED: 12/31/20 H&P UPDATE INFORMATION: I have reviewed H&P completed within last 30 days and I have examined patient prior to procedure PREOP DIAGNOSIS: Gangrenous left foot, limb salvage procedure, critical ischemia PLANNED PROCEDURE: Operation Date: 12/29/20 10:45 Proposed Procedures p Incision And Drainage left foot(Left) - Hugo Davenport MD Operation Date: 01/01/21 09:00 Proposed Procedures p Peripheral Intervention(Left) - Hamilton Pearce MD PATIENT REASSESSED PRIOR TO SEDATION, WITH NO CHANGE NOTED: Yes PHYSICAL EXAM: alert, oriented x 3 and clear to auscultation bilaterally AIRWAY EVAL/ANESTHESIA PLAN: ASA II and Risks, benefits & alternatives of sedation and/or procedure discussed ADDITIONAL INFORMATION: Risk-benefit alternative for the procedure including major minor bleed urgent emergent vascular surgery limb loss embolic phenomena leading to acute limb ischemia leading to amputation infection hematoma pseudoaneurysm has been explained. Patient been explained regarding FDA warning of drug-coated balloon with increased subset mortality by myself. Patient would like to proceed and use if required.
--- NOTE | 2021-01-01 12:05 | PM.PN ---
Subjective Subjective: Interval history: Patient underwent peripheral angiogram noted to have chronically occluded mid to distal left SFA below the knee chronically occluded posterior tibial and severely diseased proximal and mid peroneal along with moderate to severely diseased proximal anterior tibial. No flow was noted below the left knee. Patient underwent CSI atherectomy of the mid to distal left SFA and peroneal artery. It was followed by balloon angioplasty of peroneal artery anterior tibial artery and mid to distal left SFA. Excellent angiographic result was achieved with two-vessel runoff until the foot. Temporary pacemaker was also placed we are planning to take out the pacemaker after sheath will be pulled out. Medications: Reviewed: Yes Vitals/I&O/Wt Last Vital Signs Temp 97.4 F L 01/01/21 07:57 Pulse 60 01/01/21 07:57 Resp 16 01/01/21 07:57 BP 151/60 01/01/21 07:57 Pulse Ox 94 01/01/21 07:57 12/31/20 01/01/21 01/01/21 22:59 06:59 14:59 Intake Total 100 / 500 450 / 950 100 / 100 Balance 100 / 500 450 / 950 100 / 100 Weight last 48 hrs Weight 203 lb 14.841 oz Physical Exam Narrative: EXAM NARRATIVE: GENERAL: Patient is alert, awake and oriented x3. NECK: No jugular vein distension. HEENT: No cyanosis. No icterus. No pallor. HEART: Regular S1 and S2. No murmur, rub or gallop. LUNGS: Clear to auscultate bilaterally. ABDOMEN: Soft, nontender and nondistended. Positive bowel sounds. No guarding, rebound or tenderness. CENTRAL NERVOUS SYSTEM: Grossly nonfocal. EXTREMITIES: Lower extremities with the right side amputation and left lower extremity absent pulses with gangrenous foot swelling Const: COMMON NORMALS: alert Resp: COMMON NORMALS: clear to auscultation bilaterally AUSCULTATION: clear to auscultation bilaterally Neuro: SENSORIUM/ORIENTATION: Yes alert Urinary Catheter Management^: Straight: Cath Placed During This Visit: yes Urinary Catheter Date of Insertion: 12/27/20 Data : 01/01/21 05:15 01/01/21 05:15 Micro: Microbiology 12/27/20 20:33 Urine Culture - Final Urine,Clean Catch Escherichia coli esbl A&P Assessment and plan (1) Gangrene of left foot: .Patient underwent peripheral angiogram noted to have chronically occluded mid to distal left SFA below the knee chronically occluded posterior tibial and severely diseased proximal and mid peroneal along with moderate to severely diseased proximal anterior tibial. No flow was noted below the left knee. Patient underwent CSI atherectomy of the mid to distal left SFA and peroneal artery. It was followed by balloon angioplasty of peroneal artery anterior tibial artery and mid to distal left SFA. Excellent angiographic result was achieved with two-vessel runoff until the foot. Temporary pacemaker was also placed we are planning to take out the pacemaker after sheath will be pulled out. Patient has been loaded with 10 mg of Plavix. Will continue Plavix and aspirin along with statin. Status: Acute (2) Bradycardia: Status post temporary pacemaker currently paced at 60 bpm appear to be stable. Once we will take the branches out will discontinue temporary pacemaker Status: Acute (3) Peripheral arterial disease: As above patient has been revascularized Status: Chronic (4) CHF (congestive heart failure): Well compensated continue current regimen Status: Chronic Qualifiers: Heart failure chronicity: chronic Heart failure type: combined systolic and diastolic Qualified Code(s): I50.42 - Chronic combined systolic (congestive) and diastolic (congestive) heart failure (5) Atherosclerosis of coronary artery of [place] heart without angina pectoris: Appear to be stable denies any chest pain. Continue current regimen Status: Acute Qualifiers: Coronary Disease-Associated Artery/Lesion type: [place] artery Qualified Code(s): I25.10 - Atherosclerotic heart disease of [place] coronary artery without angina pectoris (6) CKD (chronic kidney disease), stage V: Patient is on dialysis. Continue current regimen Status: Acute Additional A&P Information Dyslipidemia NSTEMI type 2 Epilepsy Thank you for allowing me to participate in patient's care. Please feel free to call with questions or concerns. Attestations Medical Necessity Statement*: Patient require continuation hospitalization for above defined care. Coding Level of Care Code Established Pt Acute [employer] for [employer] Patient Type Established History Detailed Exam Detailed Medical Decision Making Moderate Complexity Diagnoses Gangrene of left foot I96 Bradycardia R00.1 Peripheral arterial disease I73.9 CHF (congestive heart failure) I50.42 Heart failure chronicity: chronic Heart failure type: combined systolic and diastolic Atherosclerosis of coronary artery of [place] heart without angina pectoris I25.10 Coronary Disease-Associated Artery/Lesion type: [place] artery CKD (chronic kidney disease), stage V N18.5
--- NOTE | 2021-01-01 12:50 | PC.NURSE ---
pt here from labor delivery rn via bed. shannon and venous sheath noted to the right groin with temp. pacer in right venous sheath. dr amin at bedside. intermittent pulses able to be dopplered to the left foot. this is to be expected per dr amin and to continue to closely monitor. verbal confirmation of leaving the shannon in place until ptt is appropriate to remove sheath. then proceed with bedrest for 6 hours post removal. after bedrest restrictions then contact dr amin to come and remove the sheath.
--- NOTE | 2021-01-01 13:26 | PM.PN ---
Subjective Subjective: Interval history: Patient seen and examined in ICU bed 9 postprocedure. Unable to be seen this morning since he had already gone to [employer] [facility]. He is due for dialysis today and will be getting at bedside in ICU. Patient underwent atherectomy with Dr. Pearce and flow was restored in left leg. Temporary pacemaker was placed prior to procedure. Final operative procedure note pending. Patient when seen is quite sleepy but does follow commands and wakes up on que. He denies being in pain. He was having a dialysis session when seen. Vitals/I&O/Wt Last Vital Signs Temp 97.2 F L 01/01/21 12:20 Pulse 55 L 01/01/21 12:45 Resp 13 01/01/21 12:45 BP 156/86 01/01/21 12:45 Pulse Ox 94 01/01/21 07:57 12/31/20 01/01/21 01/01/21 22:59 06:59 14:59 Intake Total 100 / 500 450 / 950 100 / 100 Balance 100 / 500 450 / 950 100 / 100 Weight last 48 hrs Weight 92.5 kg Physical Exam Narrative: EXAM NARRATIVE: General: Alert oriented x3, patient seen in ICU bed 9 while receiving dialysis. He appears quite drowsy but wakes up on que and follows commands. HEENT: Normocephalic, atraumatic, EOMI, breathing Cardio: Regular rate rhythm, normal S1-S2, no murmurs rubs gallops Respiratory: Good bilateral air entry, no wheezes no rhonchi appreciated GI: Abdomen soft, nontender, bowel sounds + Extremities: Right-sided amputation present. Small wound present on right stump. Left lower extremity with gangrenous foot wounds. Pulse in left foot auscultated with doppler as per nurse. Pulse heard intermittently. Urinary Catheter Management^: Straight: Cath Placed During This Visit: yes Urinary Catheter Date of Insertion: 12/27/20 Data : 01/01/21 05:15 01/01/21 05:15 A&P Assessment and plan (1) Peripheral arterial disease: Status: Chronic (2) Bradycardia: Status: Acute (3) Gangrene of left foot: Status: Acute (4) CKD (chronic kidney disease), stage V: Status: Acute (5) Anemia in CKD (chronic kidney disease): Status: Chronic Qualifiers: Chronic kidney disease stage: on chronic dialysis Qualified Code(s): N18.6 - End stage renal disease; D63.1 - Anemia in chronic kidney disease; Z99.2 - Dependence on renal dialysis (6) Type 2 diabetes mellitus: Status: Chronic Qualifiers: Diabetes mellitus complication status: with hyperglycemia Diabetes mellitus computer terminal operator insulin use: with penitentiary use Qualified Code(s): E11.65 - Type 2 diabetes mellitus with hyperglycemia; Z79.4 - terminal gauger supervisor (current) use of insulin (7) 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 Atherectomy was performed. Final operative report pending. Patient being monitored postop in ICU overnight. We will continue him on linezolid and imipenem. Temporary pacemaker was placed prior to procedure by cardiology. Cardiology following. Will await further recommendations Dr. Meeks is not planning for any intervention at this time for foot gangrene. Betadine recommended and outpatient follow-up. End-stage renal disease: Patient is dialysis dependent. Dialysis days are Sunday. Dialysis will be performed bedside in ICU. Preop labs reviewed: Hemoglobin 9.4. Will check postprocedure labs at 6 pm after dialysis Fluids:dialysis patient. No fluids. Electrolytes: Replete as needed Nutrition: Renal dialysis diet Activity: Activity as tolerated. Bedrest for today. Attestations Medical Necessity Statement*: He is status post left leg revascularization procedure. Currently being monitored in ICU. Cardiology following. Coding Level of Care Code Acute [facility] Diagnoses Peripheral arterial disease I73.9 Bradycardia R00.1 Gangrene of left foot I96 CKD (chronic kidney disease), stage V N18.5 Anemia in CKD (chronic kidney disease) N18.6; D63.1; Z99.2 Chronic kidney disease stage: on chronic dialysis Type 2 diabetes mellitus E11.65; Z79.4 Diabetes mellitus complication status: with hyperglycemia Diabetes mellitus computer terminal operator insulin use: with computer terminal operator use Combined systolic and diastolic congestive heart failure I50.42 Heart failure chronicity: chronic Diabetic peripheral neuropathy associated with type 2 diabetes mellitus E11.42
[2021-01-01 14:36] LABS: Partial Thromboplastin Time 76.5 SECONDS (23.9-36.7)
[2021-01-01] MEDS: midodrine 5 mg TABLET 10 MG PO ×2 (14:39→22:23)
[2021-01-01] MEDS: heparin 5,000 unit/mL INJ 1 mL 5000 UNIT SUBCUT (14:41)
[2021-01-01] MEDS: nitroglycerin 1 gm/inch oint Pkt 1 INCH TOPICAL ×2 (14:41→22:22)
[2021-01-01] MEDS: sevelamer 800 mg Tablet PO ×2 (14:42→22:23)
--- NOTE | 2021-01-01 17:18 | PM.PN ---
Subjective Subjective: Interval history: Pt was seen while he was getting dialysis. No doni pain or shortness of breath Medications: Reviewed: Yes Vitals/I&O/Wt Last Vital Signs Temp 97.2 F L 01/01/21 12:20 Pulse 52 L 01/01/21 14:00 Resp 0 L 01/01/21 14:00 BP 158/73 01/01/21 14:00 Pulse Ox 94 01/01/21 07:57 01/01/21 01/01/21 01/01/21 06:59 14:59 22:59 Intake Total 450 / 950 100 / 100 Balance 450 / 950 100 / 100 Weight last 48 hrs Weight 92.5 kg Physical Exam HENMT: HEAD & SCALP: normal to inspection Resp: AUSCULTATION: crackles Cardio: COMMON NORMALS: S1 normal heart sound present and S2 normal heart sound present HEART SOUNDS: S1 normal heart sound present and S2 normal heart sound present GI: AUSCULTATION: Yes normoactive bowel sounds Extremity: GENERAL: Yes edema Skin: COMMON NORMALS: no rashes or lesions noted GENERAL SKIN EXAM: no rashes or lesions noted Urinary Catheter Management^: Straight: Cath Placed During This Visit: yes Urinary Catheter Date of Insertion: 12/27/20 Data : 01/01/21 05:15 01/01/21 05:15 A&P Assessment and plan (1) ESRD (end stage renal disease): Tolerating dialysis well today. Plan to remove 2.5 lit of fluid. Status: Acute (2) Hypertension: BP under control Status: Chronic Qualifiers: Hypertension type: essential hypertension Qualified Code(s): I10 - Essential (primary) hypertension (3) Anemia in CKD (chronic kidney disease): Monitor hb Status: Chronic Qualifiers: Chronic kidney disease stage: on chronic dialysis Qualified Code(s): N18.6 - End stage renal disease; D63.1 - Anemia in chronic kidney disease; Z99.2 - Dependence on renal dialysis (4) Hyponatremia: Expect to improve with fluid removal Status: Acute Attestations Medical Necessity Statement*: ESRD, Diabetic foot inf Coding Level of Care Code Acute Public Information Director for [facility] Fwd Diagnoses ESRD (end stage renal disease) N18.6 Hypertension I10 Hypertension type: essential hypertension Anemia in CKD (chronic kidney disease) N18.6; D63.1; Z99.2 Chronic kidney disease stage: on chronic dialysis Hyponatremia E87.1
[2021-01-01 18:05] LABS: Basophils # 0.1 10^3/uL (0.0-0.1); Basophils % 0.7 %; Eosinophils # 0.2 10^3/uL (0.0-0.8); Hematocrit 31.4 % (42.0-52.0); Hemoglobin 10.6 g/dL (11.7-16.6); Lymphocytes # 0.9 10^3/uL (0.8-4.8); Lymphocytes % 12.8 %; Mean Corpuscular HGB Conc 33.8 g/dL (30.0-36.0); Mean Corpuscular Volume 94.9 fl (80-94); Mean Platelet Volume 8.6 fL (7.4-10.4); Monocytes # 0.6 10^3/uL (0.2-0.9); Monocytes % 8.6 %; Neutrophils % 74.3 %; Nucleated Red Blood Cells % 0 %; Platelet Count 218 10^3/cmm (130-400); Red Blood Count 3.31 10^6/uL (4.1-5.3); Red Cell Distribution Width 12.6 % (12.1-15.1); White Blood Count 6.7 10^3/uL (4.0-10.0)
[2021-01-01 18:15] LABS: Partial Thromboplastin Time 39.6 SECONDS (23.9-36.7)
[2021-01-01 18:22] LABS: Anion Gap 15.8 (5-19); Blood Urea Nitrogen 13 mg/dL (8-23); Calcium 8.3 mg/dL (8.5-10.5); Carbon Dioxide 27 mmol/L (22-29); Chloride 97 mmol/L (98-107); Glucose 85 mg/dL (65-115); Osmolality Calculated 281 mOsm/kg (285-295); Potassium 3.8 mmol/L (3.5-5.1); Sodium 136 mmol/L (136-145)
--- NOTE | 2021-01-01 18:34 | PC.NURSE ---
PTT recieved. Sheath is able to be pulled. Dr. Pearce notified, states to go ahead and pull the sheath and leave the pacemaker wires in until am. He will pull the pacemaker tomorrow.
[2021-01-01 18:35] LABS: Glucose Point of Care 85 mg/dL (70-110)
[2021-01-01] MEDS: heparin, porcine 1,000 unit/mL INJ 10 mL HE (18:40)
[2021-01-01 20:46] LABS: Glucose Point of Care 102 mg/dL (70-110)
[2021-01-01] MEDS: atorvastatin 40 mg Tablet PO (22:22)
[2021-01-01] MEDS: famotidine 20 mg Tablet PO (22:23)
[2021-01-01] MEDS: levETIRAcetam 500 mg Tablet PO (22:23)
[2021-01-01] MEDS: pantoprazole DR 40 mg Tablet PO (22:23)
[2021-01-01] MEDS: acetaminophen 325 mg Tablet 650 MG PO (23:46)
[2021-01-02] VITALS (75 sets, daily range): BP systolic 97–178; BP diastolic 43–86; PULSE 39–80; RESP 5–28; TEMP 36.4–37.1; O2SAT 91–100
[2021-01-02] MEDS: linezolid premix 600 MG/300 ML PREMIX 300 MG IV ×2 (01:52→14:05)
[2021-01-02] MEDS: nitroglycerin 1 gm/inch oint Pkt 1 INCH TOPICAL ×3 (04:49→19:51)
--- NOTE | 2021-01-02 04:56 | PC.NURSE ---
I called the Director Biology, Dr. Ruiz, to notify him of the patient's high blood pressure. He gave me a one time order of Hydralazine 25mg IVP. I'm currently waiting for pharmacy to verify the order.
[2021-01-02] MEDS: hyDRALAzine 20 mg/mL INJ 1 mL 25 MG IVP (05:19)
--- NOTE | 2021-01-02 07:00 | PC.NURSE ---
Shift Note Frequent safety and comfort rounds continue. Orders and/or nursing care completed as indicated. Patient monitored for response to intervention and treatment(s). Education provided includes[]. Patient and/or procurement representative [[email or web address]]. Will continue to monitor. Patient's rhythm during the shift went back and forth from sinus bradycardia to a normal sinus rhythm. Heart rate range from 39 bpm to 60 bpm. Oxygen saturation was well in the mid 90,s. The patient was hypertensive most of the night with a SBP that went as high as 180 at one point. 25 mg of Hydralazine was administered once during the shift. The patient's sheath was pulled out at 0043. A small hemotoma formed that measured about 3cm. The right popliteal pulse was found with a doppler as well as the left dorasalis pedis pulse. The pacemaker doesn't seem to be capturing. Shift report was given to Janine. We were able to hear the right popliteal pulse and the left dorsalis pedis pulse with the doppler. Both pulses were thready.
[2021-01-02 07:12] LABS: Basophils % 0.5 %; Eosinophils # 0.2 10^3/uL (0.0-0.8); Eosinophils % 2.8 %; Hematocrit 28.7 % (42.0-52.0); Hemoglobin 9.6 g/dL (11.7-16.6); Lymphocytes # 0.9 10^3/uL (0.8-4.8); Lymphocytes % 13.3 %; Mean Corpuscular HGB Conc 33.4 g/dL (30.0-36.0); Mean Corpuscular Volume 95.7 fl (80-94); Monocytes # 0.5 10^3/uL (0.2-0.9); Neutrophils % 74.9 %; Nucleated Red Blood Cells % 0 %; Platelet Count 203 10^3/cmm (130-400); Red Cell Distribution Width 12.6 % (12.1-15.1); White Blood Count 6.4 10^3/uL (4.0-10.0)
[2021-01-02 07:26] LABS: Glucose Point of Care 90 mg/dL (70-110)
[2021-01-02 07:39] LABS: Anion Gap 14.1 (5-19); Blood Urea Nitrogen 16 mg/dL (8-23); Calcium 8.4 mg/dL (8.5-10.5); Carbon Dioxide 25 mmol/L (22-29); Chloride 97 mmol/L (98-107); Glucose 91 mg/dL (65-115); Magnesium 1.6 mg/dL (1.7-2.3); Osmolality Calculated 275 mOsm/kg (285-295); Potassium 4.1 mmol/L (3.5-5.1); Sodium 132 mmol/L (136-145)
[2021-01-02] MEDS: heparin 5,000 unit/mL INJ 1 mL 5000 UNIT SUBCUT ×3 (08:50→23:03)
[2021-01-02] MEDS: pantoprazole DR 40 mg Tablet PO ×2 (08:51→19:59)
[2021-01-02] MEDS: aspirin 81 mg EC Tablet PO (08:51)
[2021-01-02] MEDS: levETIRAcetam 500 mg Tablet PO ×2 (08:51→19:51)
[2021-01-02] MEDS: midodrine 5 mg TABLET 10 MG PO ×2 (08:51→15:15)
[2021-01-02] MEDS: sevelamer 800 mg Tablet PO ×3 (08:51→19:51)
[2021-01-02] MEDS: famotidine 20 mg Tablet PO ×2 (08:52→21:33)
[2021-01-02 11:07] LABS: Glucose Point of Care 145 mg/dL (70-110)
--- NOTE | 2021-01-02 12:13 | P.PN_ITS ---
Subjective Subjective: Interval history: Seen and examined this morning in ICU bed 9. Patient appears to be quieter compared to before. He is able to make his needs known. Appears very comfortable in bed. Denies any pain in his leg or chest or abdomen. He had a good bowel movement this morning as per nursing staff. He is aware of where he is what year it is and who the president is. He did not offer any complaints at this time. He did have a dialysis session yesterday. She told last night 12:45 AM, small hematoma formed. Overnight heart rate fluctuated between 39-60. Temperature 97.8 at 4 AM. Patient was given 25 mg of hydralazine at 5 AM this morning. Vitals/I&O/Wt Last Vital Signs Temp 97.8 F 01/02/21 04:00 Pulse 70 01/02/21 09:06 Resp 22 H 01/02/21 09:06 BP 128/61 01/02/21 09:06 Pulse Ox 98 01/02/21 09:00 01/01/21 01/02/21 01/02/21 22:59 06:59 14:59 Intake Total 720 / 820 400 / 1220 100 / 100 Output Total 2500 / 2500 Balance -1780 / -1680 400 / -1280 100 / 100 Weight last 48 hrs Weight 88.2 kg Physical Exam Narrative: EXAM NARRATIVE: General: Alert oriented x3, patient seen in ICU bed 9. Appears comfortable. HEENT: Normocephalic, atraumatic, EOMI, breathing Cardio: Regular rate rhythm, normal S1-S2, no murmurs rubs gallops Respiratory: Good bilateral air entry, no wheezes no rhonchi appreciated GI: Abdomen soft, nontender, bowel sounds + Extremities: Right-sided amputation present. Small wound present on right stump. Left lower extremity with gangrenous foot wounds. Pulse in left foot auscultated with doppler as per nurse. Pulse heard intermittently. Urinary Catheter Management^: Straight: Cath Placed During This Visit: yes Urinary Catheter Date of Insertion: 12/27/20 Data : 01/02/21 07:00 01/02/21 07:00 Micro: Microbiology 12/27/20 21:00 Blood Culture - Final Blood NO GROWTH AFTER 5 DAYS 12/27/20 20:43 Blood Culture - Final Blood NO GROWTH AFTER 5 DAYS A&P Assessment and plan (1) Peripheral arterial disease: Status: Chronic (2) Bradycardia: Status: Acute (3) Gangrene of left foot: Status: Acute (4) CKD (chronic kidney disease), stage V: Status: Acute (5) Anemia in CKD (chronic kidney disease): Status: Chronic Qualifiers: Chronic kidney disease stage: on chronic dialysis Qualified Code(s): N18.6 - End stage renal disease; D63.1 - Anemia in chronic kidney disease; Z99.2 - Dependence on renal dialysis (6) Type 2 diabetes mellitus: Status: Chronic Qualifiers: Diabetes mellitus mcfp insulin use: with superintendent terminal use Diabetes mellitus complication status: with hyperglycemia Qualified Code(s): E11.65 - Type 2 diabetes mellitus with hyperglycemia; Z79.4 - superintendent terminal (current) use of insulin (7) 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 Atherectomy was performed. Final operative report pending. Patient was being monitored in the ICU overnight. Okay to move to floor as per Dr. Pearce. Temporary pacemaker will be removed by Dr. Pearce today. We will transfer him to general medical floor today. Blood pressure was low yesterday afternoon but became higher in the evening. His home blood pressure medications have not been added yet as he has been getting Nitropatch. I will gradually add his medications as needed. Blood pressure stable for now 133/67.. Dr. Meeks is not planning for any intervention at this time for foot gang drea. Betadine recommended and outpatient follow-up. End-stage renal disease: Patient is dialysis dependent. Dialysis days are Sunday. He did have a dialysis session 01/01/2021. Labs reviewed. Fluids:dialysis patient. No fluids. Electrolytes: Replete as needed Nutrition: Renal dialysis diet Activity: Activity as tolerated. Attestations Medical Necessity Statement*: Transfer from ICU to floor today. Still bradycardic we will continue to monitor heart rate. Time Spent in Patient Care: less than 15 minutes Coding Level of Care Code Acute Supervisor Of Way for [facility] Fwd Diagnoses Peripheral arterial disease I73.9 Bradycardia R00.1 Gangrene of left foot I96 CKD (chronic kidney disease), stage V N18.5 Anemia in CKD (chronic kidney disease) N18.6; D63.1; Z99.2 Chronic kidney disease stage: on chronic dialysis Type 2 diabetes mellitus E11.65; Z79.4 Diabetes mellitus mcfp insulin use: with superintendent terminal use Diabetes mellitus complication status: with hyperglycemia Combined systolic and diastolic congestive heart failure I50.42 Heart failure chronicity: chronic Diabetic peripheral neuropathy associated with type 2 diabetes mellitus E11.42
[2021-01-02] MEDS: ALPRAZolam 0.5 mg Tablet 0.25 MG PO (15:15)
--- NOTE | 2021-01-02 16:29 | PC.NURSE ---
Sheath removed at approximately 1515, pressure applied for fifteen minutes with minimal bleeding. 4x4 with transparent dressing applied.
--- NOTE | 2021-01-02 16:35 | PM.PN ---
Subjective Subjective: Interval history: I am seeing him in follow up for ESRD management and dialysis needs. No chest pain or shortness of breath Medications: Reviewed: Yes Vitals/I&O/Wt Last Vital Signs Temp 98.3 F 01/02/21 16:12 Pulse 50 L 01/02/21 16:12 Resp 9 L 01/02/21 16:12 BP 157/61 01/02/21 16:12 Pulse Ox 99 01/02/21 16:00 01/02/21 01/02/21 01/02/21 06:59 14:59 22:59 Intake Total 400 / 1220 100 / 100 300 / 400 Balance 400 / -1280 100 / 100 300 / 400 Weight last 48 hrs Weight 88.2 kg Physical Exam Const: COMMON NORMALS: no acute distress, patient oriented x3 and alert GENERAL APPEARANCE: cooperative ORIENTATION/CONSCIOUSNESS: Yes awake Resp: COMMON NORMALS: clear to auscultation bilaterally AUSCULTATION: clear to auscultation bilaterally Cardio: COMMON NORMALS: S1 normal heart sound present and S2 normal heart sound present HEART SOUNDS: S1 normal heart sound present and S2 normal heart sound present GI: AUSCULTATION: Yes normoactive bowel sounds Extremity: GENERAL: Yes edema Neuro: COMMON NORMALS: patient oriented x3 SENSORIUM/ORIENTATION: Yes alert Skin: COMMON NORMALS: no rashes or lesions noted GENERAL SKIN EXAM: no rashes or lesions noted Urinary Catheter Management^: Straight: Cath Placed During This Visit: yes Urinary Catheter Date of Insertion: 12/27/20 Data : 01/02/21 07:00 01/02/21 07:00 Micro: Microbiology 12/27/20 21:00 Blood Culture - Final Blood NO GROWTH AFTER 5 DAYS 12/27/20 20:43 Blood Culture - Final Blood NO GROWTH AFTER 5 DAYS A&P Assessment and plan (1) ESRD (end stage renal disease): No indication for dialysis today. Will plan HD tommorrow Status: Acute (2) Hypertension: BP under control Status: Chronic Qualifiers: Hypertension type: essential hypertension Qualified Code(s): I10 - Essential (primary) hypertension (3) Anemia: Will monitor hb Status: Acute (4) Hyponatremia: Expect improvement with fluid removal Status: Acute Attestations Medical Necessity Statement*: ESRD Coding Level of Care Code Acute Rocket Motor Tester for [facility] Fwd Diagnoses ESRD (end stage renal disease) N18.6 Hypertension I10 Hypertension type: essential hypertension Anemia D64.9 Hyponatremia E87.1
[2021-01-02 17:37] LABS: Glucose Point of Care 107 mg/dL (70-110)
--- NOTE | 2021-01-02 18:04 | PC.NURSE ---
Transferred to CSU room 107. Report given to CSU nurse and belongings delivered. Patient resting comfortably in bed at the time of hand off.
[2021-01-02] MEDS: atorvastatin 40 mg Tablet PO (19:51)
--- NOTE | 2021-01-02 20:47 | PM.PN ---
Subjective Subjective: Interval history: Left leg looks good warm and moist. Doppler shows positive posterior tibial nurses told me that she was able to cook pickled meat anterior tibial signal. Patient denies any pain in the leg. Heart rate remained stable and with sinus bradycardia. He denies any complaint now. He has dialysis today. Medications: Reviewed: Yes Vitals/I&O/Wt Last Vital Signs Temp 97.7 F 01/02/21 19:50 Pulse 55 L 01/02/21 19:50 Resp 22 H 01/02/21 19:50 BP 161/67 01/02/21 19:50 Pulse Ox 97 01/02/21 19:50 01/02/21 01/02/21 01/02/21 06:59 14:59 22:59 Intake Total 400 / 1220 100 / 100 762 / 862 Balance 400 / -1280 100 / 100 762 / 862 Weight last 48 hrs Weight 194 lb 7.163 oz Physical Exam Narrative: EXAM NARRATIVE: GENERAL: Patient is alert, awake and oriented x3. NECK: No jugular vein distension. HEENT: No cyanosis. No icterus. No pallor. HEART: Regular S1 and S2. No murmur, rub or gallop. LUNGS: Clear to auscultate bilaterally. ABDOMEN: Soft, nontender and nondistended. Positive bowel sounds. No guarding, rebound or tenderness. CENTRAL NERVOUS SYSTEM: Grossly nonfocal. EXTREMITIES: Lower extremities with the right side amputation and left lower extremity warm moist, dopplerable posterior tibial pulse Const: COMMON NORMALS: alert Resp: COMMON NORMALS: clear to auscultation bilaterally AUSCULTATION: clear to auscultation bilaterally Neuro: SENSORIUM/ORIENTATION: Yes alert Urinary Catheter Management^: Straight: Cath Placed During This Visit: yes Urinary Catheter Date of Insertion: 12/27/20 Data : 01/02/21 07:00 01/02/21 07:00 Micro: Microbiology 12/27/20 21:00 Blood Culture - Final Blood NO GROWTH AFTER 5 DAYS 12/27/20 20:43 Blood Culture - Final Blood NO GROWTH AFTER 5 DAYS A&P Assessment and plan (1) Gangrene of left foot: .Patient underwent peripheral angiogram noted to have chronically occluded mid to distal left SFA below the knee chronically occluded posterior tibial and severely diseased proximal and mid peroneal along with moderate to severely diseased proximal anterior tibial. No flow was noted below the left knee. Patient underwent CSI atherectomy of the mid to distal left SFA and peroneal artery. It was followed by balloon angioplasty of peroneal artery anterior tibial artery and mid to distal left SFA. Excellent angiographic result was achieved with two-vessel runoff until the foot. Temporary pacemaker was also placed we are planning to take out the pacemaker after sheath will be pulled out. Patient has been loaded with 10 mg of Plavix. Will continue Plavix and aspirin along with statin. Left leg looks better and improved. Continue to monitor continue Plavix on daily basis. Along with aspirin Status: Acute (2) Bradycardia: We will discontinue temporary pacemaker today. Patient may will be needing permanent pacemaker however since patient has underlying infection it may not be a good idea to proceed with permanent pacemaker for possible high suspicion for infection of the hardware Status: Acute (3) Peripheral arterial disease: As above patient has been revascularized Status: Chronic (4) CHF (congestive heart failure): Well compensated continue current regimen Status: Chronic Qualifiers: Heart failure chronicity: chronic Heart failure type: combined systolic and diastolic Qualified Code(s): I50.42 - Chronic combined systolic (congestive) and diastolic (congestive) heart failure (5) Atherosclerosis of coronary artery of [place] heart without angina pectoris: Appear to be stable denies any chest pain. Continue current regimen Status: Acute Qualifiers: Coronary Disease-Associated Artery/Lesion type: [place] artery Qualified Code(s): I25.10 - Atherosclerotic heart disease of [place] coronary artery without angina pectoris (6) CKD (chronic kidney disease), stage V: Patient is postdialysis. Status: Acute Additional A&P Information Require continuation hospitalization for above defined care. Attestations Medical Necessity Statement*: Patient about continued hospitalization for the above and care. Patient can move out of the unit Coding Level of Care Code Acute Medicaid Plan Compliance Director for [facility] Fw Diagnoses Gangrene of left foot I96 Bradycardia R00.1 Peripheral arterial disease I73.9 CHF (congestive heart failure) I50.42 Heart failure chronicity: chronic Heart failure type: combined systolic and diastolic Atherosclerosis of coronary artery of [place] heart without angina pectoris I25.10 Coronary Disease-Associated Artery/Lesion type: [place] artery CKD (chronic kidney disease), stage V N18.5
[2021-01-02] MEDS: clopidogrel 75 mg Tablet PO (21:33)
[2021-01-02 23:00] LABS: Glucose Point of Care 101 mg/dL (70-110)
[2021-01-03] VITALS (10 sets, daily range): BP systolic 116–158; BP diastolic 54–70; PULSE 45–81; RESP 12–22; TEMP 36.6–36.8; O2SAT 95–98
[2021-01-03] MEDS: nitroglycerin 1 gm/inch oint Pkt 1 INCH TOPICAL ×4 (01:06→19:36)
--- NOTE | 2021-01-03 02:39 | PC.NURSE ---
This nurse had to reschedule the 0200 ABT d/t not having any IV access
[2021-01-03] MEDS: linezolid premix 600 MG/300 ML PREMIX 300 MG IV ×2 (02:54→14:06)
[2021-01-03] MEDS: heparin 5,000 unit/mL INJ 1 mL 5000 UNIT SUBCUT ×3 (06:12→22:13)
[2021-01-03 06:40] LABS: Glucose Point of Care 95 mg/dL (70-110)
[2021-01-03] MEDS: levETIRAcetam 500 mg Tablet PO ×2 (07:52→19:36)
[2021-01-03] MEDS: aspirin 81 mg EC Tablet PO (07:52)
[2021-01-03] MEDS: famotidine 20 mg Tablet PO ×2 (07:52→19:36)
[2021-01-03] MEDS: pantoprazole DR 40 mg Tablet PO ×2 (07:52→19:36)
[2021-01-03] MEDS: sevelamer 800 mg Tablet PO ×3 (07:53→19:36)
[2021-01-03] MEDS: ascorbic acid 500 mg Tablet PO (07:53)
[2021-01-03] MEDS: clopidogrel 75 mg Tablet PO (07:53)
[2021-01-03] MEDS: amlodipine 5 mg Tablet PO (07:53)
[2021-01-03 08:26] LABS: Basophils % 0.5 %; Eosinophils # 0.4 10^3/uL (0.0-0.8); Hematocrit 28.2 % (42.0-52.0); Hemoglobin 9.3 g/dL (11.7-16.6); Lymphocytes # 1.1 10^3/uL (0.8-4.8); Lymphocytes % 14.3 %; Mean Corpuscular Hemoglobin 32.6 pg (28.0-34.0); Mean Corpuscular Volume 98.9 fl (80-94); Mean Platelet Volume 9.1 fL (7.4-10.4); Monocytes # 0.5 10^3/uL (0.2-0.9); Monocytes % 6.9 %; Neutrophils % 72.6 %; Nucleated Red Blood Cells % 0 %; Platelet Count 170 10^3/cmm (130-400); Red Blood Count 2.85 10^6/uL (4.1-5.3); Red Cell Distribution Width 12.7 % (12.1-15.1); White Blood Count 7.4 10^3/uL (4.0-10.0)
[2021-01-03 08:42] LABS: Slide Review Slide Review Perform
[2021-01-03 08:51] LABS: Blood Urea Nitrogen 23 mg/dL (8-23); Calcium 8.3 mg/dL (8.5-10.5); Carbon Dioxide 23 mmol/L (22-29); Chloride 94 mmol/L (98-107); Glucose 107 mg/dL (65-115); Osmolality Calculated 274 mOsm/kg (285-295); Sodium 130 mmol/L (136-145)
--- NOTE | 2021-01-03 10:34 | PM.DCS ---
Discharge Providers Date of Admission: 12/27/20 20:38 Date of Discharge: January 03, 2021 Attending Provider at Admission: Hira Ruiz MD Attending Provider at Discharge: Hamilton Moscoso MD Diagnoses at Discharge Discharge Diagnosis (1) Gangrene of left foot: Status: Acute (2) Bradycardia: Status: Acute (3) Peripheral arterial disease: Status: Chronic (4) CHF (congestive heart failure): Status: Chronic Qualifiers: Heart failure chronicity: chronic Heart failure type: combined systolic and diastolic Qualified Code(s): I50.42 - Chronic combined systolic (congestive) and diastolic (congestive) heart failure (5) Atherosclerosis of coronary artery of [place] heart without angina pectoris: Status: Acute Qualifiers: Coronary Disease-Associated Artery/Lesion type: [place] artery Qualified Code(s): I25.10 - Atherosclerotic heart disease of [place] coronary artery without angina pectoris (6) CKD (chronic kidney disease), stage V: Status: Acute Permanent problem details: started hemodialysis 07/29/2020 Reason for Visit Reason for Visit: HYPOXIC Hospital Course Hospital Course 70-year-old male with history of very reduced ejection fraction EF 33%, right BKA, presented with worsening of left foot ulcer. He was diagnosed with dry gangrene. General surgery was consulted, there was plan for surgical debridement however next day it was put on hold because of his hypotension and bradycardia episode, his metoprolol and antihypertensives were discontinued however his heart rate remained in the 40s with concern for junctional rhythm. Cardiology was consulted who gave clearance for debridement with condition of placement of temporary pacemaker in perioperative period. Next day Dr. Davenport recommended outpatient wound care follow-up and possible debridement after angioplasty because of wound being completely dry without active drainage and underlying peripheral arterial disease. Patient underwent peripheral angiogram after placement of temp Pacemaker, noted to have chronically occluded mid to distal left SFA below the knee chronically occluded posterior tibial and severely diseased proximal and mid peroneal along with moderate to severely diseased proximal anterior tibial. No flow was noted below the left knee. Patient underwent CSI atherectomy of the mid to distal left SFA and peroneal artery. It was followed by balloon angioplasty of peroneal artery anterior tibial artery and mid to distal left SFA. Excellent angiographic result was achieved with two-vessel runoff until the foot. Temporary pacemaker was removed after the sheath was pulled. Patient's brother is very enthusiastic to take him to [place] and get him discharged from the retirement. Previously he was put on hospice which was rescinded by his brother and since then he has stayed at this retirement. He gets dialyzed Sunday and Sunday. During this hospitalization telemetry nephro followed his dialysis schedule. Patient remains full code. His brother who is his DPOA was adamant about leg amputation and this was conveyed to general surgery Dr. Davenport as well. He will see this patient outpatient at wound care clinic. For junctional rhythm he does need permanent pacemaker in future, Dr. Pearce recommended placement of pacemaker once bacteremia is ruled out completely. He has remained afebrile. Urine culture did show ESBL E. coli however 20,000-30 k growth, likely colonization. Blood cultures negative to date. During this hospitalization he did get multiple doses of atropine, albumin, 1 unit PRBC for anemia of chronic disease. He will be discharged with 10-day regimen of Keflex , aspirin, plavix, statins. Physical Exam Narrative: EXAM NARRATIVE: Patient was laying comfortably in his bed Saturating well on room air EOMI, PERRLA Dry gangrene of left foot without any active drainage Adequate blood supply of lower extremity without active ischemic ulcers No active leg pain EOMI, PERRLA no neurological deficit Right BKA with slight opening no active drainage Patient has flat affect, no cognitive impairment no signs of stroke Has to drag in venous ulcer left lateral border of foot around the heel and metatarsal area of fifth toe, Urinary Catheter Management^: Straight: Cath Placed During This Visit: yes Urinary Catheter Date of Insertion: 12/27/20 Discharge Data Data Completed and Pending: Completed Studies During Hospitalization Category Date Time Status CT foot LT wo con * [id number] Routine Cat Scan 12/28/20 05:[address] head wo con* 7 0450 Urgent Cat Scan 12/27/20 17:42 Completed XR chest 1V shar ble [id number] Urgent Exams 12/27/20 17:41 [place] [id number] Rout ine Ultrasound 12/28/20 13:42 Completed CV carotid duplex BI* [id number] Routine Ultrasound 12/28/20 23:49 Completed CV. 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 for service Routin e Exams 01/01/21 08:38 Taken Basic Metabolic P josé miguel AM LABS Lab 01/04/21 04:00 Ordered Complete Blood Co unt w/Auto AM LABS Lab 01/04/21 04:00 Ordered Labs from last 24 hours 01/03/21 01/03/21 01/03/21 08:16 08:16 06:21 WBC 7.4 RBC 2.85 L Hgb 9.3 L Hct 28.2 L MCV 98.9 H MCH 32.6 MCHC 33.0 RDW 12.7 Plt Count 170 MPV 9.1 Neut % (Auto) 72.6 Lymph % (Auto) 14.3 Kings % (Auto) 6.9 Eos % (Auto) 5.0 Baso % (Auto) 0.5 Neut # (Auto) 5.40 Lymph # (Auto) 1.1 Kings # (Auto) 0.5 Eos # (Auto) 0.4 Baso # (Auto) 0.0 Nucleated RBC % (a uto) 0 Nucleated RBCs # 0.0 Sodium 130 L Potassium 4.0 Chloride 94 L Carbon Dioxide 23 Anion Gap 17.0 BUN 23 Creatinine 4.3 H GFR Calculation Not Reportable Glucose 107 POC Glucose 95 Calculated Osmolal ity 274 L Calcium 8.3 L 01/02/21 01/02/21 01/02/21 19:51 17:03 11:05 WBC RBC Hgb Hct MCV MCH MCHC RDW Plt Count MPV Neut % (Auto) Lymph % (Auto) Kings % (Auto) Eos % (Auto) Baso % (Auto) Neut # (Auto) Lymph # (Auto) Kings # (Auto) Eos # (Auto) Baso # (Auto) Nucleated RBC % (a uto) Nucleated RBCs # Sodium Potassium Chloride Carbon Dioxide Anion Gap BUN Creatinine GFR Calculation Glucose POC Glucose 101 107 145 H Calculated Osmolal ity Calcium Vitals: Last Vital Signs Temp 98.1 F 01/03/21 08:00 Pulse 54 L 01/03/21 08:00 Resp 13 01/03/21 08:00 BP 152/60 01/03/21 08:00 Pulse Ox 96 01/03/21 08:00 Discharge Plan Discharge Patient Disposition: Xfer SNF Condition: Fair Prescriptions: Continued levetiracetam [Keppra] 500 mg Tablet 500 mg PO BID@0800,1999 RF: 0 ascorbic acid (vitamin C) [Vitamin C] 500 mg Tablet 500 mg PO DAILY@0800 RF: 0 pantoprazole 40 mg Tablet,Delayed Release (Dr/Ec) 40 mg PO BID@ RF: 0 [place] Plus Cold+Flu 12.5-10-20-650 mg Powder In Packet 1 packet PO Q4H PRN (Reason: reflux) RF: 0 isosorbide mononitrate 30 mg Tablet Extended Release 24 Hr 30 mg PO DAILY@0800 RF: 0 amlodipine 5 mg Tablet 5 mg PO DAILY@0800 RF: 0 sevelamer carbonate 800 mg Tablet 800 mg PO TID@,, RF: 0 acetaminophen 650 mg Tablet Extended Release 650 mg PO Q4H MDD 3,000 mg PRN (Reason: Pain) RF: 0 diclofenac sodium 1 % Gel 2 - 4 g TOPICAL BID@ RF: 0 Pro Stat Nutritional 15 ml PO BID@ RF: 0 Entresto 24-26 mg tablet 1 tab PO BID@ RF: 0 hydrocodone-acetaminophen 5-325 mg Tablet 1 tab PO BID PRN (Reason: Pain) RF: 0 atorvastatin 40 mg Tablet 40 mg PO DAILY@1999 30 Days Qty: 30 RF: 0 aspirin 81 mg Tablet,Delayed Release (Dr/Ec) 81 mg PO DAILY@799 30 Days Qty: 30 RF: 0 cephalexin 500 mg capsule 500 mg PO BID 10 Days Qty: 20 RF: 0 clopidogrel 75 mg Tablet 75 mg PO DAILY@00 30 Days Qty: 30 RF: 0 bisacodyl 10 mg Suppository 10 mg PA DAILY PRN (Reason: Constipation) RF: 0 Discontinued metoprolol tartrate 25 mg tablet 12.5 mg PO BID@ RF: 0 morphine concentrate 20 mg/mL Syringe See Rx Instructions .ROUTE .COMPLEX RF: 0 Discharge Orders: Discharge Order (Routine); Ordered 01/03/21 Ordered By: Hamilton Moscoso Referrals: Hugo Davenport MD [Physician] - 1-3 days Lashay Knapp MD [Physician] - 4-7 days (Pacemaker) Discharge Diet: As Directed Discharge Activity: Wheelchair as instructed Patient Instructions: Peripheral Vascular Stent Placement (DC), Peripheral Vascular Angioplasty (DC) Discharge Attestations Time Spent in Discharge Care*: less than 30 min Status at Discharge: Cognitive status at discharge: cognitively intact, Behavioral status at discharge: cooperative, Quality Metrics Clinical Quality Measures During this hospital stay, did patient experience: None Coding Level of Care Code Acute Chg FW DC note Diagnoses Gangrene of left foot I96 Bradycardia R00.1 Peripheral arterial disease I73.9 CHF (congestive heart failure) I50.42 Heart failure chronicity: chronic Heart failure type: combined systolic and diastolic Atherosclerosis of coronary artery of [place] heart without angina pectoris I25.10 Coronary Disease-Associated Artery/Lesion type: [place] artery CKD (chronic kidney disease), stage V N18.5
--- NOTE | 2021-01-03 11:03 | PC.SOCIAL ---
IMM Updated Updated pt on IMM. No questions voiced. Provided pt a copy. Initialed, dated, & timed copy in chart.
[2021-01-03 11:34] LABS: Glucose Point of Care 154 mg/dL (70-110)
--- NOTE | 2021-01-03 13:55 | P.PN_ITS ---
Subjective Subjective: Interval history: Feels ok with no new issues, sleeping comfortably during exam. Prepping for discharge Medications: Reviewed: Yes Vitals/I&O/Wt Last Vital Signs Temp 98.1 F 01/03/21 12:00 Pulse 51 L 01/03/21 12:00 Resp 15 01/03/21 12:00 BP 158/63 01/03/21 12:00 Pulse Ox 98 01/03/21 12:00 01/02/21 01/03/21 01/03/21 22:59 06:59 14:59 Intake Total 862 / 962 360 / 1322 100 / 100 Balance 862 / 962 360 / 1322 100 / 100 Weight last 48 hrs Weight 88.2 kg Physical Exam Narrative: EXAM NARRATIVE: Constitutional: Awake, comfortable HEENT: Wet mucosa, no jvp, non icteric Lungs: Bilaterally clear without discernible wheeze, rales in all lung zones CVS: S1 S2, no murmurs Abdo: Soft, BS ok Ext 4: Minimal edema, peripheral perfusion with no cyanosis, foot with swelling, dressed Neurological: Grossly non-focal Urinary Catheter Management^: Straight: Cath Placed During This Visit: yes Urinary Catheter Date of Insertion: 12/27/20 Data : 01/03/21 08:16 01/03/21 08:16 A&P Additional A&P Information 1. ESRD Plan for dialysis today, cont MWF schedule 3K bath, ultrafiltration 2-3 L Dose medication for GFR less than 15 on dialysis 2. Chemistry Noncritical aberration continue to monitor 3. Left foot diabetic foot wound Under the care of wound care, surgery, antibiotics to include Zyvox and Primaxin. No debridement appreciated 4. Hemodynamics Hemodynamics remain stable 5. Chronic ESRD to be addressed in outpatient facility - home today/ tomorrow pending insurance approval Dennis Carreon MD Nephrology [phone] Patient seen and examined via telemedicine, with the assistance of the bedside RN > 25 min spent in evaluation and mgmt of patient Attestations Medical Necessity Statement*: eval for ESRD mgmt Coding Level of Care Code Acute Curtain Hemmer Automatic for Joelg Daniel
--- NOTE | 2021-01-03 16:05 | PC.NURSE ---
pt left floor for dialysis
[2021-01-03] MEDS: morphine 4 mg/mL SDV 1 mL IVP (17:39)
--- NOTE | 2021-01-03 18:54 | PC.HD ---
Pt c/o stump pain, 10/23. Beronica LOMELI brought MSO4 4mg IV. Pain improving, 07/24, by treatment end. B/P stable
[2021-01-03] MEDS: atorvastatin 40 mg Tablet PO (19:36)
--- NOTE | 2021-01-03 20:09 | P.PN_ITS ---
Subjective Subjective: Interval history: Denies any complaint he is in sinus bradycardia and occasional junctional bradycardia heart rate anywhere is in the 40s to low 50s. Admits to being fatigued but denies any dizziness or fainting. Denies left leg pain. Medications: Reviewed: Yes Vitals/I&O/Wt Last Vital Signs Temp 98.3 F 01/03/21 19:34 Pulse 60 01/03/21 19:34 Resp 12 01/03/21 19:34 BP 121/54 01/03/21 19:34 Pulse Ox 96 01/03/21 19:34 01/03/21 01/03/21 01/03/21 06:59 14:59 22:59 Intake Total 360 / 1322 100 / 100 600 / 700 Output Total 2300 / 2300 Balance 360 / 1322 100 / 100 -1700 / -1600 Weight last 48 hrs Weight 201 lb 4.513 oz Physical Exam Narrative: EXAM NARRATIVE: GENERAL: Patient is alert, awake and oriented x3. NECK: No jugular vein distension. HEENT: No cyanosis. No icterus. No pallor. HEART: Regular S1 and S2. No murmur, rub or gallop. LUNGS: Clear to auscultate bilaterally. ABDOMEN: Soft, nontender and nondistended. Positive bowel sounds. No guarding, rebound or tenderness. CENTRAL NERVOUS SYSTEM: Grossly nonfocal. EXTREMITIES: Lower extremities with the right side amputation and left lower extremity moist, dopplerable posterior tibial pulse Const: COMMON NORMALS: alert Resp: COMMON NORMALS: clear to auscultation bilaterally AUSCULTATION: clear to auscultation bilaterally Neuro: SENSORIUM/ORIENTATION: Yes alert Urinary Catheter Management^: Straight: Cath Placed During This Visit: yes Urinary Catheter Date of Insertion: 12/27/20 Data : 01/03/21 08:16 01/03/21 08:16 A&P Assessment and plan (1) Gangrene of left foot: .Patient underwent peripheral angiogram noted to have chronically occluded mid to distal left SFA below the knee chronically occluded posterior tibial and severely diseased proximal and mid peroneal along with moderate to severely diseased proximal anterior tibial. No flow was noted below the left knee. Patient underwent CSI atherectomy of the mid to distal left SFA and peroneal artery. It was followed by balloon angioplasty of peroneal artery anterior tibial artery and mid to distal left SFA. Excellent angiographic result was achieved with two-vessel runoff until the foot. Temporary pacemaker was also placed we are planning to take out the pacemaker after sheath will be pulled out. Patient has been loaded with 10 mg of Plavix. Will continue Plavix and aspirin along with statin. Left leg looks better and improved. Continue to monitor continue Plavix on daily basis. Along with aspirin On today's visit we will continue same medicine. Status: Acute (2) Bradycardia: We will discontinue temporary pacemaker today. Patient may will be needin g permanent pacemaker however since patient has underlying infection it may not be a good idea to proceed with permanent pacemaker for possible high suspicion for infection of the hardware As defined above continue to monitor at this point permanent pacemaker may not be a good idea due to fear of infection Status: Acute (3) Peripheral arterial disease: As above patient has been revascularized Status: Chronic (4) CHF (congestive heart failure): Well compensated continue current regimen Status: Chronic Qualifiers: Heart failure chronicity: chronic Heart failure type: combined systolic and diastolic Qualified Code(s): I50.42 - Chronic combined systolic (congestive) and diastolic (congestive) heart failure (5) Atherosclerosis of coronary artery of [place] heart without angina pectoris: Appear to be stable denies any chest pain. Continue current regimen Status: Acute Qualifiers: Coronary Disease-Associated Artery/Lesion type: [place] artery Qualified Code(s): I25.10 - Atherosclerotic heart disease of [place] coronary artery wi thout angina pectoris (6) CKD (chronic kidney disease), stage V: patient is on dialysis Status: Acute Additional A&P Information Require continuation hospitalization for above defined care. Attestations Medical Necessity Statement*: Patient required continuation hospitalization for above plan of care. Coding Level of Care Code Established Pt Acute Glass Pulverizer Equipment Operator for Brandy Sanchez Patient Type Established History Detailed Exam Detailed Medical Decision Making Moderate Complexity Diagnoses Gangrene of left foot I96 Bradycardia R00.1 Peripheral arterial disease I73.9 CHF (congestive heart failure) I50.42 Heart failure chronicity: chronic Heart failure type: combined systolic and diastolic Atherosclerosis of coronary artery of [place] heart without angina pectoris I25.10 Coronary Disease-Associated Artery/Lesion type: [place] artery CKD (chronic kidney disease), stage V N18.5
[2021-01-04] VITALS: BP 141/58; PULSE 52; RESP 13; O2SAT 92
[2021-01-04] MEDS: nitroglycerin 1 gm/inch oint Pkt 1 INCH TOPICAL ×2 (03:02→08:35)
[2021-01-04 04:00] VITALS: BP 141/58; PULSE 54; RESP 16; O2SAT 93
[2021-01-04] MEDS: linezolid premix 600 MG/300 ML PREMIX 300 MG IV (04:28)
[2021-01-04 06:00] VITALS: PULSE 53
[2021-01-04 06:48] LABS: Glucose Point of Care 102 mg/dL (70-110)
[2021-01-04 07:43] LABS: Basophils # 0.1 10^3/uL (0.0-0.1); Basophils % 0.8 %; Eosinophils # 0.4 10^3/uL (0.0-0.8); Eosinophils % 6.7 %; Hematocrit 25.2 % (42.0-52.0); Hemoglobin 7.9 g/dL (11.7-16.6); Lymphocytes # 1.2 10^3/uL (0.8-4.8); Lymphocytes % 17.8 %; Mean Corpuscular HGB Conc 31.3 g/dL (30.0-36.0); Mean Corpuscular Hemoglobin 31.9 pg (28.0-34.0); Mean Corpuscular Volume 101.6 fl (80-94); Mean Platelet Volume 8.8 fL (7.4-10.4); Monocytes # 0.6 10^3/uL (0.2-0.9); Monocytes % 9.6 %; Neutrophils # 4.25 10^3/uL (1.8-7.7); Neutrophils % 64.3 %; Nucleated Red Blood Cells % 0 %; Platelet Count 150 10^3/cmm (130-400); Red Blood Count 2.48 10^6/uL (4.1-5.3); Red Cell Distribution Width 12.7 % (12.1-15.1); White Blood Count 6.6 10^3/uL (4.0-10.0)
[2021-01-04 08:06] LABS: Blood Urea Nitrogen 13 mg/dL (8-23); Calcium 8.1 mg/dL (8.5-10.5); Carbon Dioxide 27 mmol/L (22-29); Chloride 100 mmol/L (98-107); Glucose 85 mg/dL (65-115); Osmolality Calculated 279 mOsm/kg (285-295); Sodium 135 mmol/L (136-145)
[2021-01-04] MEDS: clopidogrel 75 mg Tablet PO (08:35)
[2021-01-04] MEDS: levETIRAcetam 500 mg Tablet PO (08:35)
[2021-01-04] MEDS: famotidine 20 mg Tablet PO (08:35)
[2021-01-04] MEDS: sevelamer 800 mg Tablet PO (08:35)
[2021-01-04] MEDS: ascorbic acid 500 mg Tablet PO (08:35)
[2021-01-04] MEDS: aspirin 81 mg EC Tablet PO (08:35)
[2021-01-04] MEDS: amlodipine 5 mg Tablet PO (08:35)
[2021-01-04] MEDS: pantoprazole DR 40 mg Tablet PO (08:35)
--- NOTE | 2021-01-04 08:46 | PC.CHAP ---
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 residential solar sales consultant visit [] Patient/Family/Request visit [] Outpatient visit [] Follow-up visit [] Physician referral [] Code/Alert [x] Routine visit [] Staff referral [] Actively dying [] Patient sleeping [] Family support [] [] Out of room [] Palliative care [] [] Receiving care in room [] Pre-surgical visit [] Trauma [] Long length of stay [] ICU visit [] Other: Relational/Emotional Strength [] Patient feels connected with others/family/visitors/staff [] Distress [] Loneliness/isolation [] Abandonment Spirituality of Patient [] Person of Ghislaine [] Attends Caodaism of their Ghislaine [] Believes in Prayer [] Reads Bible or Adventist materials [] There are Spiritual issues to be addressed Safety Engineer Pressure Vessels Interventions [x] Prayer [] Active listening [] Non-anxious presence [] Spiritual/emotional support [] Crisis/trauma care [] Spiritual counseling [] Bereavement support [] Provided bereavement packet [] Provided Bible/devotional materials [] Provided toy/stuffed animal, coloring book to patient or family member [] Provided Communion [] Anointing/[place] [] Salvation [] Completed spiritual assessment [] Other: Impact on Illness or Injury [] Angry [] Fearful [] Anxious [] Often cries [] Exhaustion [] Unable to work [] Unable to attend sikhism [] Unable to walk/stand [] Unable to read [] Unable to drive [] Unable to eat/drink [] Unable to sleep [] Unable to be with family [] Patient intubated [] Other: Summary Pt sleepy and somewhat unresponsive to questions. Pt did indicate he desired a residential solar sales consultant visit. I suggested we pray which he agreed to. Time spent with patient 5m
[2021-01-04 09:00] VITALS: RESP 18
[2021-01-04] MEDS: morphine 4 mg/mL SDV 1 mL IVP (09:00)
[2021-01-04 09:59] LABS: SARS Covid-2 Antigen Negative (Negative)
--- NOTE | 2021-01-04 13:17 | PC.NURSE ---
Discharge Note Patient discharged to SNF via wheel chair accompanied by transportation service. Discharge instructions reviewed with patient and/or account maintenance representative. Mobile pharmacy medications and/or prescriptions provided. Belongings/home medications returned.
--- NOTE | 2021-01-04 13:25 | PM.PN ---
Subjective Subjective: Interval history: Feels good, pending DC today. Dialysis went well last night Medications: Reviewed: Yes Vitals/I&O/Wt Last Vital Signs Temp 98.3 F 01/03/21 19:34 Pulse 53 L 01/04/21 06:00 Resp 18 01/04/21 09:00 BP 141/58 01/04/21 04:00 Pulse Ox 93 01/04/21 04:00 01/03/21 01/04/21 01/04/21 22:59 06:59 14:59 Intake Total 600 / 700 300 / 1000 100 / 100 Output Total 2300 / 2300 Balance -1700 / -1600 300 / -1300 100 / 100 Weight last 48 hrs Weight 91.3 kg Physical Exam Narrative: EXAM NARRATIVE: Constitutional: Awake, comfortable HEENT: Wet mucosa, no jvp, non icteric Lungs: Bilaterally clear without discernible wheeze, rales in all lung zones CVS: S1 S2, no murmurs Abdo: Soft, BS ok Ext 4: Minimal edema, peripheral perfusion with no cyanosis, foot with swelling, dressed Neurological: Grossly non-focal Urinary Catheter Management^: Straight: Cath Placed During This Visit: yes Urinary Catheter Date of Insertion: 12/27/20 Data : 01/04/21 06:58 01/04/21 06:58 A&P Additional A&P Information 1. ESRD Cont MWF schedule 3K bath, ultrafiltration 2-3 L Dose medication for GFR less than 15 on dialysis 2. Chemistry Noncritical aberration continue to monitor 3. Left foot diabetic foot wound Under the care of wound care, surgery, antibiotics to include Zyvox and Primaxin. No debridement appreciated 4. Hemodynamics Hemodynamics remain stable 5. Chronic ESRD to be addressed in outpatient facility including anemia mgmt - home today Dennis Carreon MD Nephrology [phone] Patient seen and examined via telemedicine, with the assistance of the bedside RN > 25 min spent in evaluation and mgmt of patient Attestations Medical Necessity Statement*: Eval for ESRD mgmt Coding Level of Care Code Acute Production Mechanic for Brandy Sanchez
--- NOTE | 2021-01-04 21:19 | P.PN_ITS ---
Subjective Subjective: Interval history: Denies any complaint foot looks better. Medications: Reviewed: Yes Vitals/I&O/Wt Last Vital Signs Temp 98.3 F 01/03/21 19:34 Pulse 53 L 01/04/21 06:00 Resp 18 01/04/21 09:00 BP 141/58 01/04/21 04:00 Pulse Ox 93 01/04/21 04:00 01/04/21 01/04/21 01/04/21 06:59 14:59 22:59 Intake Total 300 / 1000 100 / 100 Balance 300 / -1300 100 / 100 Weight last 48 hrs Weight 201 lb 4.513 oz Physical Exam Narrative: EXAM NARRATIVE: GENERAL: Patient is alert, awake and oriented x3. NECK: No jugular vein distension. HEENT: No cyanosis. No icterus. No pallor. HEART: Regular S1 and S2. No murmur, rub or gallop. LUNGS: Clear to auscultate bilaterally. ABDOMEN: Soft, nontender and nondistended. Positive bowel sounds. No guarding, rebound or tenderness. CENTRAL NERVOUS SYSTEM: Grossly nonfocal. EXTREMITIES: Lower extremities with the right side amputation and left lower extremity moist, dopplerable anterior l pulse today not able to get posterior but foot looks good Const: COMMON NORMALS: alert Resp: COMMON NORMALS: clear to auscultation bilaterally AUSCULTATION: clear to auscultation bilaterally Neuro: SENSORIUM/ORIENTATION: Yes alert Urinary Catheter Management^: Straight: Cath Placed During This Visit: yes Urinary Catheter Date of Insertion: 12/27/20 Data : 01/04/21 06:58 01/04/21 06:58 A&P Assessment and plan (1) Gangrene of left foot: .Patient underwent peripheral angiogram noted to have chronically occluded mid to distal left SFA below the knee chronically occluded posterior tibial and severely diseased proximal and mid peroneal along with moderate to severely d iseased proximal anterior tibial. No flow was noted below the left knee. Patient underwent CSI atherectomy of the mid to distal left SFA and peroneal artery. It was followed by balloon angioplasty of peroneal artery anterior tibial artery and mid to distal left SFA. Excellent angiographic result was achieved with two-vessel runoff until the foot. Temporary pacemaker was also placed we are planning to take out the pacemaker after sheath will be pulled out. Patient has been loaded with 10 mg of Plavix. Will continue Plavix and aspirin along with statin. Left leg looks better and improved. Continue to monitor continue Plavix on daily basis. Along with aspirin On today's visit we will continue same medicine. Appear to be stable continue current regimen. Continue to follow-up with wound care Status: Acute (2) Bradycardia: We will discontinue temporary pacemaker today. Patient may will be nee ding permanent pacemaker however since patient has underlying infection it may not be a good idea to proceed with permanent pacemaker for possible high suspicion for infection of the hardware As defined above continue to monitor at this point permanent pacemaker may not be a good idea due to fear of infection Follow-up with Dr. Khan as an outpatient once wound heals may require permanent pacemaker placement Status: Acute (3) Peripheral arterial disease: As above patient has been revascularized Status: Chronic (4) CHF (congestive heart failure): Well compensated continue current regimen Status: Chronic Qualifiers: Heart failure chronicity: chronic Heart failure type: combined systolic and diastolic Qualified Code(s): I50.42 - Chronic combined systolic (congestive) and diastolic (congestive) heart failure (5) Atherosclerosis of coronary artery of [place] heart without angina pectoris: Appear to be stable denies any chest pain. Continue current regimen Status: Acute Qualifiers: Coronary Disease-Associated Artery/Lesion type: [place] artery Qualified Code(s): I25.10 - Atherosclerotic heart disease of [place] coronary artery without angina pectoris (6) CKD (chronic kidney disease), stage V: patient is on dialysis Status: Acute Additional A&P Information Require continuation hospitalization for above defined care. Attestations Medical Necessity Statement*: Patient require continuation hospitalization for above defined care. Coding Level of Care Code Established Pt Acute Product Safety Tester for Brandy Sanchez Patient Type Established History Detailed Exam Detailed Medical Decision Making Moderate Complexity Diagnoses Gangrene of left foot I96 Bradycardia R00.1 Peripheral arterial disease I73.9 CHF (congestive heart failure) I50.42 Heart failure chronicity: chronic Heart failure type: combined systolic and diastolic Atherosclerosis of coronary artery of [place] heart without angina pectoris I25.10 Coronary Disease-Associated Artery/Lesion type: [place] artery CKD (chronic kidney disease), stage V N18.5
--- NOTE | 2021-01-06 08:23 | PC.SOCIAL ---
discharge follow up call spoke with patients nurse Cheryl, reports patient is doing ok. all medications available for patient. spoke with Pao in scheduling, she wasn't aware of follow up appointments that were needed. Discussed follow ups needed with Dr. Khan and Dr. Davenport, she will work on scheduling those appointments today.
== END 2021-01-04 13:00 | disposition skilled nursing facility (03) | DRG 270 ==
LOC: ER 21:02 → MEDSURG 22:28 → ICU 01-01 12:00 → CSU 01-02 17:40
PROVIDERS: Internal Medicine; Internal Medicine Cardiovascular Disease; Internal Medicine Nephrology; Admitting Provider Family Medicine; Emergency Provider Emergency Medicine; Visit Provider Internal Medicine
PROC: 04CU3ZZ Extirpation of Matter from Left Peroneal Artery, Percutaneous Approach (ICD-10-PCS; principal; 2021-01-01 09:00)
PROC: 04CU3ZZ Extirpation of Matter from Left Peroneal Artery, Percutaneous Approach (ICD-10-PCS; 2021-01-01 09:00)
PROC: 04CU3ZZ Extirpation of Matter from Left Peroneal Artery, Percutaneous Approach (ICD-10-PCS; 2021-01-01 09:00)
DX: E11.52 Type 2 diabetes mellitus with diabetic peripheral angiopathy with gangrene (principal); N18.6 End stage renal disease; I21.4 Non-ST elevation (NSTEMI) myocardial infarction; I96 Gangrene, not elsewhere classified; N39.0 Urinary tract infection, site not specified; I13.2 Hypertensive heart and chronic kidney disease with heart failure and with stage 5 chronic kidney disease, or end stage renal disease; I50.42 Chronic combined systolic (congestive) and diastolic (congestive) heart failure; L03.116 Cellulitis of left lower limb; G93.40 Encephalopathy, unspecified; E11.22 Type 2 diabetes mellitus with diabetic chronic kidney disease; Z99.2 Dependence on renal dialysis; Z89.511 Acquired absence of right leg below knee; D63.1 Anemia in chronic kidney disease; I25.10 Atherosclerotic heart disease of native coronary artery without angina pectoris; Z86.16 Personal history of COVID-19; M48.00 Spinal stenosis, site unspecified; Z96.82 Presence of neurostimulator; E11.42 Type 2 diabetes mellitus with diabetic polyneuropathy; Z95.1 Presence of aortocoronary bypass graft; G40.909 Epilepsy, unspecified, not intractable, without status epilepticus; Z87.440 Personal history of urinary (tract) infections; I95.9 Hypotension, unspecified; I25.5 Ischemic cardiomyopathy; E83.51 Hypocalcemia; R00.1 Bradycardia, unspecified
CPT/HCPCS: 33210; 36415; 36416; 36430; 37225; 37233; 51702; 70450; 71045; 73630; 73700; 75625; 75716; 80048; 80053; 80202; 81001; 82140; 82550; 82607; 82962; 83036; 83605; 83690; 83735; 83880; 84100; 84145; 84443; 84484; 85014; 85018; 85025; 85347; 85610; 85651; 85730; 86140; 86706; 86803; 86850; 86900; 86920; 87040; 87077; 87086; 87186; 87340; 87426; 87635; 93005; 93308; 93880; 93926; 96365; 96367; 96372; 97110; 97162; 97165; 97530; 99283; 99285; C1724; C1725; C1769; C1779; C1887; C1894; J0360; J0461; J0610; J0696; J0743; J1644; J1650; J1815; J2020; J2250; J2270; J2405; J3010; J3370; J3490; J7030; J7040; J7050; P9016; P9047; Q3014; Q9967

== ENCOUNTER 2021-01-07 12:19 | Emergency (ER) | payer MEDICARE, MEDICAID, SELFPAY ==
[2021-01-07 12:23] VITALS: BP 129/56; PULSE 83; RESP 18; TEMP 37.1; O2SAT 99
--- NOTE | 2021-01-07 12:31 | ED_ITS ---
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 Patient tells me that intermediate staff checked on him this morning and that is a candidate low-grade fever over 100. In addition, patient noticed 2 areas of dark spots, erythema and swelling on the heel of the left foot that is new today. Patient denies any fever/chills, nausea/vomiting, abdominal complaints, complaints at this time. No cough, runny nose, sore throat, groin pain, doubt melena/hematochezia. Patient is compliant with his dialysis. Onset: 1 day ago Duration:1 day Location:home Severity:moderate/severe Review of Systems Narrative: Constitutional: No fever, no chills. HEENT: No vision changes CV: No chest pain, no palpitations PULM: no cough, no dyspnea. GI: No abdominal pain, no N/V/D. : No dysuria MSKEL: No muscle pain SKIN: No new rashes, no lesions. NEURO: No headache, no focal weakness. HEME: No visible bruises PSYCH: Normal mood PFSH ED PFSH: Medical History Anemia in CKD (chronic kidney disease) Atherosclerotic heart disease of [place] coronary artery without angina pectoris CHF (congestive heart failure) Chronic ulcer of ankle CKD (chronic kidney disease), stage V started hemodialysis 07/29/2020 Combined systolic and diastolic congestive heart failure Echo 08/04 demonstrates EF 35 to 40% COVID-19 (~01/2020) Diabetes mellitus History of ESBL E. coli infection Hypertension Multilevel degenerative disc disease has known hx of multilevel DJD, s/p spinal stimulator Peripheral neuropathy Polyneuropathy in other diseases classified elsewhere Seizure disorder Spinal cord stimulator status Spinal stenosis Type 2 diabetes mellitus Surgical History S/P CABG x 3 S/P dialysis catheter insertion (04/15/21) Giurgius S/P insertion of spinal cord stimulator Status post below knee amputation of right lower extremity Family History Mother Cancer Brother Lung disease Other Hyperlipidemia Hypertension Denies family history of Diabetes CAD (coronary artery disease) Clotting disorder Dementia Psychiatric illness Chronic kidney disease (CKD) Suicide Anesthesia complication Bleeding disorder Stroke Social History Alcohol intake: former Lives independently: No (Brother is his power of commercial litigation attorney, recently has had to be involved in more decisions) Housing: Snf Physical Exam Narrative: EXAM NARRATIVE: Head: Atraumatic Eyes: PERRL, conjunctiva without injection ENT: Mucous membrane moist NECK: Supple, ROM intact LUNGS: LCTAB, no crackles/rhonchi CV: RRR ABDOMEN: Soft, nontender in all quadrants EXTREMITY: Normal ROM, +L heel eryhtema with mild induration no fluctuance or TTP, L medial anterior first MTP chronic stage 4 decubitous wound with eschar, R BKA SKIN: No rash or erythema NEURO: Awake and alert, no focal motor deficits PSYCH: Normal mood and affect Course Vital Signs: Vital signs: Vital Signs Temperature 98.8 F 01/07/21 12:23 Pulse Rate 83 01/07/21 18:52 Respiratory Rate 18 01/07/21 12:23 Blood Pressure 138/68 01/07/21 18:52 Pulse Oximetry 97 01/07/21 18:52 MDM - General Adult MDM Narrative: Medical decision making narrative: 70-year-old male with history of diabetes, on dialysis Sunday/Sunday/Sunday who presents the emergency room with concerns for new left heel erythema. The left heel does not appear to be necrotic. There is no crepitus, increased tenderness, pain out of porportion, and the patient has no systemic symptoms. CRP of 57.1 with prior baseline. X-ray did not show any signs of osteomyelitis. Symptoms unlikely to be necrotizing fasciitis. Given new onset of white count 10.6 elevated from baseline of 5-6K, patient has been afebrile here in the emergency room and decision was made for outpatient antibiotics. Patient agrees with plan for outpatient treatment. Rx Bactrim and Keflex for new L heel cellluitis He is given follow-up podiatry for stage IV ulcer with eschar which may need outpatient debridement. Patient agrees with plan. Disposition: Discharge. Patient is given strict return precaution for any worsening pain, fever/chills, worsening infection, or any new or concerning complaints. Lab Data: Labs: Lab Results 01/07/21 01/07/21 01/07/21 12:45 12:45 12:45 WBC 10.6 10^3/uL H 10 ^3/uL (4.0-10.0) RBC 2.94 10^6/uL L 10 ^6/uL (4.1-5.3) Hgb 9.4 g/dL L g/dL (11.7-16.6) Hct 29.1 % L % (42.0-52.0) MCV 99.0 fl H fl (80-94) MCH 32.0 pg pg (28.0-34.0) MCHC 32.3 g/dL g/dL (30.0-36.0) RDW 12.6 % % (12.1-15.1) Plt Count 170 10^3/cmm 10^3 /cmm (130-400) MPV 8.9 fL fL (7.4-10.4) Neut % (Auto) 74.6 % % Lymph % (Auto) 10.6 % % [place] % (Auto) 10.6 % % Eos % (Auto) 3.1 % % Baso % (Auto) 0.6 % % Neut # (Auto) 7.89 10^3/uL H 10 ^3/uL (1.8-7.7) Lymph # (Auto) 1.1 10^3/uL 10^3/ uL (0.8-4.8) [place] # (Auto) 1.1 10^3/uL H 10^ 3/uL (0.2-0.9) Eos # (Auto) 0.3 10^3/uL 10^3/ uL (0.0-0.8) Baso # (Auto) 0.1 10^3/uL 10^3/ uL (0.0-0.1) Nucleated RBC % (a uto) 0 % % Nucleated RBCs # 0.0 /100WBC /100W BC PT INR APTT Sodium 135 mmol/L L mmol /L (136-145) Potassium 4.7 mmol/L mmol/L (3.5-5.1) Chloride 96 mmol/L L mmol/ L (98-107) Carbon Dioxide 30 mmol/L H mmol/ L (22-29) Anion Gap 13.7 (5-19) BUN 33 mg/dL H mg/dL (8-23) Creatinine 4.1 mg/dL H mg/dL (0.7-1.2) GFR Calculation Not Reportable Glucose 145 mg/dL H mg/dL (65-115) Calculated Osmolal ity 290 mOsm/kg mOsm/ kg (285-295) Lactate 1.4 mmol/L mmol/L (0.5-2.2) Calcium 9.2 mg/dL mg/dL (8.5-10.5) C-Reactive Protein 57.1 mg/L H mg/L (0.0-4.9) 01/07/21 12:45 WBC RBC Hgb Hct MCV MCH MCHC RDW Plt Count MPV Neut % (Auto) Lymph % (Auto) [place] % (Auto) Eos % (Auto) Baso % (Auto) Neut # (Auto) Lymph # (Auto) [place] # (Auto) Eos # (Auto) Baso # (Auto) Nucleated RBC % (a uto) Nucleated RBCs # PT 15.10 SECONDS H S ECONDS (12.1-14.9) INR 1.16 (0.8-1.2) APTT 37.0 SECONDS H SE CONDS (23.9-36.7) Sodium Potassium Chloride Carbon Dioxide Anion Gap BUN Creatinine GFR Calculation Glucose Calculated Osmolal ity Lactate Calcium C-Reactive Protein Imaging Data^: Other Imaging: Radiologist's impression: [address] [address]VZli ReportSigned Patient: Moy Fernandez AUnclover #: [id number]#:[id number]/Sex: 70 / MADM Date: 01/07/21Loc: ERRoom/Bed:Attending Dr: Ordering Provider/Ordering MD: Pascale De Leon MD Date of Service: 01/07/21 Procedure(s): XR foot LT min 3V* [id number] Accession Number(s): [id number] Report Number: [id number] WS: [id number] Left foot, 3 views, 01/07/2021 Clinical Data: rule out gas and osteo Comparison: Left foot, 12/24/2020. Findings: No fractures or dislocations are seen. No bone destruction or erosion is noted. The joint spaces and soft tissues are normal. No soft tissue air is seen. There are calcifications in the esparza of small vessels. There is diffuse demineralization of the bones of the foot. XR/XR foot LT min 3V* [id number] Impression: 1. Diffuse demineralization of the bones of the feet. 2. Negative for soft tissue abscess or osteomyelitis. Dictated By:Mavis Newberry MDSigned By:Mavis Newberry MDSigned Date/Time:01/07/21 1252DD/ 1250 Discharge Plan Discharge Patient Disposition: Home Clinical Impression: Cellulitis, Decubitus ulcer, Eschar Condition: Stable Prescriptions: New Bactrim DS 800-160 mg tablet 1 tab PO BID 10 Days Qty: 20 RF: 0 cephalexin 500 mg capsule 500 mg PO BID 10 Days Qty: 20 RF: 0 No Action levetiracetam [Keppra] 500 mg Tablet 500 mg PO BID@0800,2000 RF: 0 ascorbic acid (vitamin C) [Vitamin C] 500 mg Tablet 500 mg PO DAILY@0800 RF: 0 pantoprazole 40 mg Tablet,Delayed Release (Dr/Ec) 40 mg PO BID@08,20 RF: 0 [place]-Pratt Plus Cold+Flu 12.5-10-20-650 mg Powder In Packet 1 packet PO Q4H PRN (Reason: reflux) RF: 0 isosorbide mononitrate 30 mg Tablet Extended Release 24 Hr 30 mg PO DAILY@0800 RF: 0 amlodipine 5 mg Tablet 5 mg PO DAILY@0800 RF: 0 sevelamer carbonate 800 mg Tablet 800 mg PO TID@,, RF: 0 acetaminophen 650 mg Tablet Extended Release 650 mg PO Q4H MDD 3,000 mg PRN (Reason: Pain) RF: 0 diclofenac sodium 1 % Gel 2 - 4 g TOPICAL BID@08,20 RF: 0 Pro Stat Nutritional 15 ml PO BID@08,20 RF: 0 Entresto 24-26 mg tablet 1 tab PO BID@,20 RF: 0 hydrocodone-acetaminophen 5-325 mg Tablet 1 tab PO BID PRN (Reason: Pain) RF: 0 atorvastatin 40 mg Tablet 40 mg PO DAILY@1999 30 Days Qty: 30 RF: 0 aspirin 81 mg Tablet,Delayed Release (Dr/Ec) 81 mg PO DAILY@0800 30 Days Qty: 30 RF: 0 cephalexin 500 mg capsule 500 mg PO BID 10 Days Qty: 20 RF: 0 clopidogrel 75 mg Tablet 75 mg PO DAILY@0800 30 Days Qty: 30 RF: 0 bisacodyl 10 mg Suppository 10 mg CA DAILY PRN (Reason: Constipation) RF: 0 Discharge Orders: Discharge ED (Routine); Ordered 01/07/21 Ordered By: Pascale De Leon Discharge Diet: Advance as tolerated Discharge Activity: Resume usual activity Patient Instructions: Cellulitis (ED) Activity Restrictions/Additional Instructions: Come back to the emergency room if your symptoms worsen, if you have any worsening swelling, pain, fever, nausea/vomiting, any new concerning symptoms. Coding Level of Care Code ED Associate Professor Of Theatre for Brandy Sanchez
[2021-01-07 12:41] VITALS: BP 120/44; PULSE 71; O2SAT 95
[2021-01-07 12:53] LABS: Basophils # 0.1 10^3/uL (0.0-0.1); Basophils % 0.6 %; Eosinophils # 0.3 10^3/uL (0.0-0.8); Eosinophils % 3.1 %; Hematocrit 29.1 % (42.0-52.0); Hemoglobin 9.4 g/dL (11.7-16.6); Lymphocytes # 1.1 10^3/uL (0.8-4.8); Lymphocytes % 10.6 %; Mean Corpuscular HGB Conc 32.3 g/dL (30.0-36.0); Mean Platelet Volume 8.9 fL (7.4-10.4); Monocytes # 1.1 10^3/uL (0.2-0.9); Monocytes % 10.6 %; Neutrophils # 7.89 10^3/uL (1.8-7.7); Neutrophils % 74.6 %; Nucleated Red Blood Cells % 0 %; Platelet Count 170 10^3/cmm (130-400); Red Blood Count 2.94 10^6/uL (4.1-5.3); Red Cell Distribution Width 12.6 % (12.1-15.1); White Blood Count 10.6 10^3/uL (4.0-10.0)
[2021-01-07 13:09] LABS: INR 1.16 (0.8-1.2)
[2021-01-07 13:15] LABS: Anion Gap 13.7 (5-19); Blood Urea Nitrogen 33 mg/dL (8-23); C Reactive Protein 57.1 mg/L (0.0-4.9); Calcium 9.2 mg/dL (8.5-10.5); Carbon Dioxide 30 mmol/L (22-29); Chloride 96 mmol/L (98-107); Glucose 145 mg/dL (65-115); Lactate (Lactic Acid level) 1.4 mmol/L (0.5-2.2); Osmolality Calculated 290 mOsm/kg (285-295); Potassium 4.7 mmol/L (3.5-5.1); Sodium 135 mmol/L (136-145)
[2021-01-07] MEDS: sulfamethoxazole-trimeth DS 160-800 mg Tablet 1 TAB PO (13:27)
[2021-01-07] MEDS: cephALEXin 500 mg Capsule PO (13:27)
[2021-01-07 13:51] VITALS: BP 133/64; PULSE 84; O2SAT 97
[2021-01-07 17:16] VITALS: BP 133/71; PULSE 78; O2SAT 99
[2021-01-07 18:52] VITALS: BP 138/68; PULSE 83; O2SAT 97
[2021-01-10 11:06] LABS: Erythrocyte Sedimentation Rate 31 mm/hr (0-10)
== END 2021-01-07 18:54 | disposition home or self-care (01) ==
PROVIDERS: Emergency Provider Emergency Medicine
DX: L89.894 Pressure ulcer of other site, stage 4 (principal); L03.116 Cellulitis of left lower limb; Z79.82 Long term (current) use of aspirin; Z79.02 Long term (current) use of antithrombotics/antiplatelets; I25.10 Atherosclerotic heart disease of native coronary artery without angina pectoris; I13.2 Hypertensive heart and chronic kidney disease with heart failure and with stage 5 chronic kidney disease, or end stage renal disease; E11.22 Type 2 diabetes mellitus with diabetic chronic kidney disease; N18.5 Chronic kidney disease, stage 5; I50.40 Unspecified combined systolic (congestive) and diastolic (congestive) heart failure; E11.42 Type 2 diabetes mellitus with diabetic polyneuropathy; Z95.1 Presence of aortocoronary bypass graft; Z89.511 Acquired absence of right leg below knee
CPT/HCPCS: 73630; 80048; 83605; 85025; 85610; 85651; 85730; 86140; 99283

== ENCOUNTER 2021-01-13 08:38 | Observation (INO) | payer MEDICARE, MEDICAID, SELFPAY ==
[2021-01-13] VITALS (13 sets, daily range): BP systolic 91–162; BP diastolic 40–74; PULSE 68–86; RESP 12–18; TEMP 36.6–37.1; O2SAT 92–99; BMI 31.4
--- NOTE | 2021-01-13 08:43 | ED_ITS ---
HPI - Extremity Injury (Lower) General: Chief Complaint: Wound/Laceration Stated Complaint: BLEEDING FROM WOUND ON buttocks Time Seen by Provider: 01/13/21 08:38 History of Present Illness: HPI Narrative: 70-year-old male presents emergency room via EMS from a local skilled nursing. He is complaining of a sore on his sacrum. He has a significant left foot ulcer that is gangrenous that they have been working on. Within the last week he had a thrombectomy and angiography to the lower extremities extensive stenosis noted. He denies any chest pain denies any fever sweats or chills he has been following with wound care through the skilled nursing. MD complaint: other (Presacral ulcer) Onset (ago): unknown Place: other (skilled nursing) Other symptoms: loss of consciousness, chest pain, diaphoresis, SOB, nausea/vomiting, seizure, syncope and confusion Review of Systems Const: Denies: fever(s), chills, body aches, change in appetite, fatigue or malaise ENMT: Denies: throat pain, ear or mastoid pain, nasal discharge or nasal congestion Card: Denies: chest pain, edema, dyspnea on exertion or orthopnea Resp: Denies: dyspnea, productive cough or non-productive cough GI: Denies: abdominal pain, nausea, vomiting, hematemesis, coffee ground emesis, diarrhea, constipation, bloating, hematochezia or melena : Denies: flank pain, dysuria, urinary frequency or urinary urgency [facility] ED PFSH: Medical History (Updated 01/17/21 @ 16:22 by Chad Penny DO) Acute encephalopathy Acute on chronic anemia Altered mental status Anemia Anemia Anemia in CKD (chronic kidney disease) Atherosclerosis of coronary artery of [place] heart without angina pectoris Atherosclerotic heart disease of [place] coronary artery without angina pectoris Bradycardia CAD (coronary artery disease) Cellulitis of left lower extremity CHF (congestive heart failure) Chronic ulcer of ankle CKD (chronic kidney disease), stage V started hemodialysis 07/29/2020 Combined systolic and diastolic congestive heart failure Echo 08/04 demonstrates EF 35 to 40% COVID-19 (~01/2020) Decubitus ulcer Diabetes Diabetes mellitus Diabetic peripheral neuropathy associated with type 2 diabetes mellitus Elevated troponin ESRD (end stage renal disease) ESRD (end stage renal disease) on dialysis Gangrene of left foot History of ESBL E. 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 hx of multilevel DJD, s/p spinal stimulator Peripheral arterial disease Peripheral neuropathy Polyneuropathy in other diseases classified elsewhere Pre-operative cardiovascular examination Seizure disorder Spinal cord stimulator status Spinal stenosis Type 2 diabetes mellitus Surgical History S/P CABG x 3 S/P dialysis catheter insertion (07/29/20) Giurgius S/P insertion of spinal cord stimulator Status post below knee amputation of right lower extremity Family History Mother Cancer Brother Lung disease Other Hyperlipidemia Hypertension Denies family history of Diabetes CAD (coronary artery disease) Clotting disorder Dementia Psychiatric illness Chronic kidney disease (CKD) Suicide Anesthesia complication Bleeding disorder Stroke Social History Alcohol intake: former Lives independently: No (Brother is his power of chalk machine operator, recently has had to be involved in more decisions) Housing: Prison Physical Exam Const: COMMON NORMALS: no acute distress GENERAL APPEARANCE: cooperative and comfortable ORIENTATION/CONSCIOUSNESS: Yes awake, Yes oriented to person, Yes oriented to place and Yes oriented to time HENMT: COMMON NORMALS: normocephalic, atraumatic and hearing grossly normal bilaterally HEAD & SCALP: normocephalic and atraumatic Neck/C-Spine: COMMON NORMALS: no JVD Resp: COMMON NORMALS: normal respiratory effort, No retractions, No use of accessory muscles and clear to auscultation bilaterally AUSCULTATION: clear to auscultation bilaterally Cardio: COMMON NORMALS: no JVD, regular rate, regular rhythm and No murmurs present (Cardio) RATE: regular rate RHYTHM: regular rhythm GI: COMMON NORMALS: Soft to palpation and No hepatosplenomegaly present AUS CULTATION: Yes normoactive bowel sounds PALPATION: Yes Soft to palpation, No Tenderness to palpation present (GI), No Guarding due to palpation present (GI) and Yes No hepatosplenomegaly present Extremity: COMMON NORMALS: normal to inspection, capillary refill normal, no clubbing, cyanosis or edema, no calf tenderness and no pedal edema Neuro: SENSORIUM/ORIENTATION: Yes oriented to person, Yes oriented to place and Yes oriented to time Skin: NARRATIVE SKIN EXAM: Gangrenous ulcers of the left foot superficial presacral ulcers also noted. No full-thickness skin erosion or active bleeding Course Vital Signs: Vital signs: Vital Signs Temperature 98.0 F 01/14/21 17:02 Pulse Rate 86 01/14/21 17:02 Respiratory Rate 18 01/14/21 17:02 Blood Pressure 135/67 01/14/21 17:02 Pulse Oximetry 98 01/14/21 17:02 MDM - Extremity Injury (Lower) MDM Narrative: Medical decision making narrative: Patient presents with complaint of a presacral ulcer. On evaluation however he is significantly anemic his hemoglobin is dropped 2 points further evaluation is Hemoccult is negative CT of the abdomen pelvis showed what appeared to be a pseudoaneurysm in the left groin ultrasound was recommended by Dr. Aguirre and when the ultrasound was completed it was noted to have changed size significantly in the interim. Contacted Dr. Hopkins who is on-call to have him evaluate the case and make recommendation. Dr. Hopkins and Dr. Bryan seen the patient they recommend monitoring the area of concern in the groin would not otherwise do anything. Will admit due to the anemia. In the renal disease. Patient will be monitored discussed with Dr. Vance orders are written. Lab Data: Labs: Lab Results 01/13/21 01/13/21 01/13/21 09:17 09:17 09:17 WBC 6.8 10^3/uL 10^3/ uL (4.0-10.0) RBC 2.38 10^6/uL L 10 ^6/uL (4.1-5.3) Hgb 7.4 g/dL L g/dL (11.7-16.6) Hct 23.6 % L % (42.0-52.0) MCV 99.2 fl H fl (80-94) MCH 31.1 pg pg (28.0-34.0) MCHC 31.4 g/dL g/dL (30.0-36.0) RDW 13.1 % % (12.1-15.1) Plt Count 224 10^3/cmm 10^3 /cmm (130-400) MPV 9.2 fL fL (7.4-10.4) Neut % (Auto) 71.2 % % Lymph % (Auto) 14.9 % % [place] % (Auto) 10.2 % % Eos % (Auto) 2.5 % % Baso % (Auto) 0.6 % % Neut # (Auto) 4.82 10^3/uL 10^3 /uL (1.8-7.7) Lymph # (Auto) 1.0 10^3/uL 10^3/ uL (0.8-4.8) [place] # (Auto) 0.7 10^3/uL 10^3/ uL (0.2-0.9) Eos # (Auto) 0.2 10^3/uL 10^3/ uL (0.0-0.8) Baso # (Auto) 0.0 10^3/uL 10^3/ uL (0.0-0.1) Nucleated RBC % (a uto) 0 % % Nucleated RBCs # 0.0 /100WBC /100W BC PT 16.20 SECONDS H S ECONDS (12.1-14.9) INR 1.26 H (0.8-1.2) APTT 45.7 SECONDS H SE CONDS (23.9-36.7) Sodium 137 mmol/L mmol/L (136-145) Potassium 4.0 mmol/L mmol/L (3.5-5.1) Chloride 97 mmol/L L mmol/ L (98-107) Carbon Dioxide 31 mmol/L H mmol/ L (22-29) Anion Gap 13.0 (5-19) BUN 19 mg/dL mg/dL (8-23) Creatinine 2.8 mg/dL H mg/dL (0.7-1.2) GFR Calculation Not Reportable Glucose 111 mg/dL mg/dL (65-115) Calculated Osmolal ity 287 mOsm/kg mOsm/ kg (285-295) Calcium 8.3 mg/dL L mg/dL (8.5-10.5) Total Bilirubin 0.3 mg/dL mg/dL (0.15-1.2) AST 9 U/L U/L (0-40) ALT < 5 U/L U/L (0-41) Alkaline Phosphata se 50 IU/L IU/L (40-130) Creatine Kinase 91 U/L U/L (39-308) Total Protein 5.9 g/dL L g/dL (6.6-8.7) Albumin 3.0 g/dL L g/dL (3.5-5.2) Globulin 2.9 g/dL g/dL (1.3-4.6) Urine Color Urine Appearance Urine pH Ur Specific Gravit y Urine Protein Urine Glucose (UA) Urine Ketones Urine Blood Urine Nitrate Urine Bilirubin Prot Sulfosalicyli c Acd Urine Urobilinogen Ur Leukocyte Nadege ase Urine RBC Urine WBC Ur Squamous Epith Cells Amorphous Sediment Urine Bacteria Blood Type Rho(D) Type Antibody Screen Crossmatch 01/13/21 01/13/21 10:42 11:53 WBC RBC Hgb Hct MCV MCH MCHC RDW Plt Count MPV Neut % (Auto) Lymph % (Auto) [place] % (Auto) Eos % (Auto) Baso % (Auto) Neut # (Auto) Lymph # (Auto) [place] # (Auto) Eos # (Auto) Baso # (Auto) Nucleated RBC % (a uto) Nucleated RBCs # PT INR APTT Sodium Potassium Chloride Carbon Dioxide Anion Gap BUN Creatinine GFR Calculation Glucose Calculated Osmolal ity Calcium Total Bilirubin AST ALT Alkaline Phosphata se Creatine Kinase Total Protein Albumin Globulin Urine Color Yellow (Yellow) Urine Appearance Cloudy (CLEAR) Urine pH 9 H (5-7) Ur Specific Gravit y 1.010 (1.005-1.030) Urine Protein 1+ H (Negative) Urine Glucose (UA) Norm (Normal) Urine Ketones Negative (Negative) Urine Blood 2+ H (Negative) Urine Nitrate Negative (Negative) Urine Bilirubin 1+ H (Negative) Prot Sulfosalicyli c Acd Positive (Negative) Urine Urobilinogen Norm mg/dL mg/dL (Negative) Ur Leukocyte Nadege ase 2+ H (Negative) Urine RBC 0-4 /hpf H /hpf (0-2) Urine WBC Too numerous to c nt /hpf H /hpf (0-5) Ur Squamous Epith Cells 5-10 /hpf H /hpf (0-5) Amorphous Sediment Not Reportable Urine Bacteria 2+ /hpf H /hpf (NONE) Blood Type A Positive Rho(D) Type Positive Antibody Screen Negative Crossmatch See Detail Discharge Plan Discharge Patient Disposition: Admitted As Inpatient Admit Provider: Nathan Vance Clinical Impression: Anemia, ESRD (end stage renal disease), HTN (hypertension), Femoral artery pseudo-aneurysm, right Discharge Diet: Low Salt Coding Level of Care Code ED Diabetes Trainer for Chg Fwd Exam Detailed
[2021-01-13 09:33] LABS: Basophils % 0.6 %; Eosinophils # 0.2 10^3/uL (0.0-0.8); Eosinophils % 2.5 %; Hematocrit 23.6 % (42.0-52.0); Hemoglobin 7.4 g/dL (11.7-16.6); Lymphocytes % 14.9 %; Mean Corpuscular HGB Conc 31.4 g/dL (30.0-36.0); Mean Corpuscular Hemoglobin 31.1 pg (28.0-34.0); Mean Corpuscular Volume 99.2 fl (80-94); Mean Platelet Volume 9.2 fL (7.4-10.4); Monocytes # 0.7 10^3/uL (0.2-0.9); Monocytes % 10.2 %; Neutrophils # 4.82 10^3/uL (1.8-7.7); Neutrophils % 71.2 %; Nucleated Red Blood Cells % 0 %; Platelet Count 224 10^3/cmm (130-400); Red Blood Count 2.38 10^6/uL (4.1-5.3); Red Cell Distribution Width 13.1 % (12.1-15.1); White Blood Count 6.8 10^3/uL (4.0-10.0)
--- NOTE | 2021-01-13 09:43 | CT_ITS ---
WS: [id number] CT ABDOMEN AND PELVIS WITH CONTRAST HISTORY: Ulcers posterior pelvis. TECHNIQUE: Imaging performed of the abdomen and pelvis with IV contrast. Single phase imaging of the abdomen. Coronal and sagittal reformats are submitted. All CT scans at [facility] use at [address] one of these dose optimization techniques: automated exposure control; mA and/or kV adjustment per patient size (includes targeted exams where dose is matched to clinical indication); or iterative re construction. IV CONTRAST: Visipaque 320; 95 mL IV. Oral contrast: No DLP: 1879.65 mGy.cm COMPARISON: 08/23/2020 Lower thorax: Dependent changes and mild edema at the lung bases. There are very small bilateral pleu ral effusions, RIGHT greater than LEFT. Mild enlargement of the heart. No effusion. No hiatal hernia. Liver/biliary system: There are a few scattered hypodensities within the liver which are too small to characterize. No bile duct dilatation. Gallbladder: Normally distended gallbladder with a large stone. Pancreas: Atrophied pancreas. Spleen: Normal size spleen. No mass or infarct. Adrenal glands: Normal. Right kidney: Mild atrophy with no obstruction. Left kidney: Mild atrophy with no obstruction. Aorta: Extensive atherosclerosis aorta. Heavy calcification in the splenic artery. Dense calcificatio n at the origin of the SMA and celiac axis. Lymphadenopathy: None. Free fluid: None. GI tract: Extensive fecal retention and obstipation. No obstruction. Appendix is not identified. Abdominal wall: Mild soft tissue anasarca greatest over the RIGHT abdominal wall and pelvis. This pre sacral soft tissue thickening posteriorly at the sacrum. No large ulcerated tract. No abscess in the soft tissues. Pelvis: No free fluid. Well-distended urinary bladder. Prostate gland is not enlarged. There is a int ensely enhancing nodule measuring 3.3 x 3.2 cm in the RIGHT inguinal region. There is adjacent soft t issue which is nonenhancing. Due to the dense enhancement. Favor this may be a pseudoaneurysm. A smal l track extending to a calcified femoral artery is likely. Bones: Degenerative changes throughout the lumbar spine. Moderate bilateral degenerative joint diseas e at the hips. CT/CT abdomen pelvis w con* [id number] IMPRESSION: 1. Intensely enhancing mass at the RIGHT groin. Favor pseudoaneurysm. Correlat e with recent history of vascular procedure. Recommend ultrasound evaluation. 2. Cholelithiasis without acute cholecystitis. 3. Very small bilateral pleural effusions. 4. Extensive atherosclerosis aorta and mesenteric arteries. 5. Extensive obstipation and constipation. Notified Chad Penny DO at 01/13/2021 10:49 AM.
[2021-01-13 09:52] LABS: Alanine Aminotransferase < 5 U/L (0-41); Alkaline Phosphatase 50 IU/L (40-130); Aspartate Amino Transferase 9 U/L (0-40); Blood Urea Nitrogen 19 mg/dL (8-23); Calcium 8.3 mg/dL (8.5-10.5); Carbon Dioxide 31 mmol/L (22-29); Chloride 97 mmol/L (98-107); Creatine Phosphokinase 91 U/L (39-308); Globulin 2.9 g/dL (1.3-4.6); Glucose 111 mg/dL (65-115); Osmolality Calculated 287 mOsm/kg (285-295); Sodium 137 mmol/L (136-145); Total Bilirubin 0.3 mg/dL (0.15-1.2); Total Protein 5.9 g/dL (6.6-8.7)
[2021-01-13 10:28] LABS: INR 1.26 (0.8-1.2)
[2021-01-13 10:29] LABS: Partial Thromboplastin Time 45.7 SECONDS (23.9-36.7)
[2021-01-13] MEDS: iodixanol 320 mg/mL 100mL Btl IV (10:35)
--- NOTE | 2021-01-13 10:58 | USCV_ITS ---
Moy Fernandez Age: 70 Gender: M : 1950 Exam Date: 01/13/2021 11:26 Ordering Phys: Chad Penny DO Technologist: Khloe Miramontes Exam Location: [facility] [place]_ Indication: EVAL FOR PSUEDOANEURYSM Findings Complex cystic mass at the right groin corresponds to the CT findings of the same day. Increased arterial flow with a neck extending to the femoral artery. Partial thrombus in the pseudoaneurysm. Also, adjacent fluid curving around the pseuroaneurysm. Pseudoaneurysm measures 4.3 x 3.1 x 4.6 cm. Conclusions Moderate right groin pseudoaneurysm. Report called to Dr. Penny. Dr. Joana Aguirre DO (Electronically Signed) Final Date: 13 January 2021 11:55 S
[2021-01-13 12:15] LABS: Glucose Urine UA Norm (Normal); Ketones Urine Negative (Negative); Protein Urine 1+ (Negative); Urine Appearance Cloudy (CLEAR); Urine Color Yellow (Yellow); pH Urine 9 (5-7)
[2021-01-13 12:16] LABS: Add Urine Microscopic? YES; Bilirubin Urine 1+ (Negative); Blood Urine 2+ (Negative); Leukocyte Esterase Urine 2+ (Negative); Nitrate Urine Negative (Negative); Urobilinogen Urine Norm (Negative)
[2021-01-13 12:34] LABS: Bacteria Urine 2+ /hpf; RBC Urine 0-4 /hpf (0-2); WBC Urine TOO NUMEROUS TO CNT /hpf (0-5)
[2021-01-13 12:36] LABS: Add Urine Culture? Yes; Sulfosalicylic Acid Urine Positive (Negative)
--- NOTE | 2021-01-13 13:36 | PC.PHAR ---
pt is from [facility]-raina ronquillo a nurse at [facility] states the pt didnt have any medications today-
[2021-01-13] MEDS: sodium chloride 0.9% (100 ml) 100 ML (14:23)
[2021-01-13] MEDS: cefTRIAXone 1,000 MG in lidocaine 1% 2.1 ML 2.1 MG IM (14:23)
--- NOTE | 2021-01-13 14:49 | PM.HP ---
Providers/Chief Complaint Chief Complaint: BLEEDING FROM WOUND ON FOOT History of Present Illness Moy Fernandez is a 70 year old male with PMH of right BKA for diabetic foot infection, osteomyelitis, noninsulin-dependent type 2 diabetes mellitus, seizure, ESRD D/D mwf , combined HFref as well as HFpEF, CABG, lt L/E PAD S/P recent CSI atherectomy of the mid to distal left SFA and peroneal artery. It was followed by balloon angioplasty of peroneal artery anterior tibial artery and mid to distal left SFA. anemia, ESBL E. coli UTIs and pyelonephritis, VRE and ESBL skin infections, recent history of sepsis and gram-positive bacteremia staph aureus secondary to dialysis catheter which was replaced, finished 2 weeks of vancomycin, JOSEPH negative for endocarditis.Was brought in from [facility] as he was complaining of a sore on his sacrum.Upon arrival in the ER routine blood work was done, which revealed Hb of 7.4 usually his Hb stays around 9. Imaging studies in the ER: CT abdomen pelvis w con: There is a intensely enhancing nodule measuring 3.3 x 3.2 cm in the RIGHT inguinal region. There is adjacent soft tissue which is nonenhancing.Due to the dense enhancement. Favor this may be a pseudoaneurysm. A small track extending to a calcified femoral artery is likely. CV arterial dup groin RT: Complex cystic mass at the right groin corresponds.Moderate right groin pseudoaneurysm Review of Systems Const: Denies: fever(s), chills, body aches, change in appetite or diaphoresis Card: Denies: palpitations, edema or swelling of feet/ankles Resp: Denies: productive cough, wheezing or pain on inspiration GI: Denies: abdominal pain, nausea, vomiting, diarrhea or constipation : Denies: flank pain or difficulty urinating Musc: Denies: back pain Neuro: Denies: headache(s) or confusion Medications/Allergies Home Medications Medication Instructions Recorded Confirmed Last Taken Type [place] Plus Cold+Flu 1 packet PO Q4H PRN 07/23/20 01/13/21 09/05/20 09:29 History ascorbic acid (vitamin C) [Vitamin 500 mg PO DAILY@0800 07/23/20 01/13/21 01/12/21 History C] levetiracetam [Keppra] 500 mg PO BID@0800,199907/23/20 01/13/21 01/12/21 History pantoprazole 40 mg PO BID@,07/23/20 01/13/21 01/12/21 History bisacodyl 10 mg [place] DAILY PRN 08/23/20 01/13/21 Unknown History amlodipine 5 mg PO DAILY@79909/05/20 01/13/21 01/12/21 History isosorbide mononitrate 30 mg PO DAILY@0809/05/20 01/13/21 01/12/21 History sevelamer carbonate 800 mg PO TID@,,09/05/20 01/13/21 01/12/21 History Entresto 1 tab PO BID@,12/24/20 01/13/21 01/12/21 History Pro Stat Nutritional 15 ml PO BID@,12/24/20 01/13/21 12/24/20 History acetaminophen 650 mg PO Q4H PRN MDD 3,000 mg 12/24/20 01/13/21 Unknown History diclofenac sodium 2 - 4 g TOPICAL BID@,12/24/20 01/13/21 12/24/20 History aspirin 81 mg PO DAILY@08 30 Days #30 tab 01/03/21 01/13/21 01/12/21 Rx atorvastatin 40 mg PO DAILY@1999 30 Days #30 tab 01/03/21 01/13/21 01/12/21 Rx clopidogrel 75 mg PO DAILY@0800 30 Days #30 tab 01/03/21 01/13/21 01/12/21 Rx cephalexin 500 mg PO BID 10 Days #20 cap 01/07/21 01/13/21 01/12/21 Rx Cough Drops See Rx Instructions .ROUTE .COMPLEX 01/13/21 01/13/21 Unknown History collagenase clostridium histo. 1 applic TOPICAL DAILY 01/13/21 01/13/21 Unknown History [Santyl] magnesium hydroxide [Milk of 30 ml PO DAILY PRN 01/13/21 01/13/21 Unknown History Magnesia] morphine concentrate See Rx Instructions .ROUTE .COMPLEX 01/13/21 01/13/21 01/12/21 23:00 History sennosides-docusate sodium 1 tab PO BID PRN 01/13/21 01/13/21 Unknown History [Senna-S] sodium phosphates [Enema 118 ml [place] DAILY PRN 01/13/21 01/13/21 Unknown History Disposable] sulfamethoxazole-trimethoprim 1 tab PO BID@,01/13/21 01/13/21 01/12/21 History [Bactrim DS] Allergies Allergy/AdvReac Type Severity Reaction Status Date / Time No Known Allergies Allergy Verified 01/13/21 13:36 PFSH Acute PFSH: Medical History (Updated 01/13/21 @ 15:09 by Nathan Vance MD) Acute encephalopathy Acute on chronic anemia Altered mental status Anemia Anemia in CKD (chronic kidney disease) Atherosclerosis of coronary artery of [place] heart without angina pectoris Atherosclerotic heart disease of [place] coronary artery without angina pectoris Bradycardia CAD (coronary artery disease) Cellulitis of left lower extremity CHF (congestive heart failure) Chronic ulcer of ankle CKD (chronic kidney disease), stage V started hemodialysis 07/29/2020 Combined systolic and diastolic congestive heart failure Echo 08/04 demonstrates EF 35 to 40% COVID-19 (~01/2020) Decubitus ulcer Diabetes mellitus Diabetic peripheral neuropathy associated with type 2 diabetes mellitus Elevated troponin ESRD (end stage renal disease) Gangrene of left foot History of ESBL E. 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 hx of multilevel DJD, s/p spinal stimulator Peripheral arterial disease Peripheral neuropathy Polyneuropathy in other diseases classified elsewhere Pre-operative cardiovascular examination Seizure disorder Spinal cord stimulator status Spinal stenosis Type 2 diabetes mellitus Surgical History S/P CABG x 3 S/P dialysis catheter insertion (07/29/20) Giurgius S/P insertion of spinal cord stimulator Status post below knee amputation of right lower extremity Family History Mother Cancer Brother Lung disease Other Hyperlipidemia Hypertension Denies family history of Diabetes CAD (coronary artery disease) Clotting disorder Dementia Psychiatric illness Chronic kidney disease (CKD) Suicide Anesthesia complication Bleeding disorder Stroke Social History Alcohol intake: former Lives independently: No (Brother is his power of admitted attorneys, recently has had to be involved in more decisions) Housing: Skilled Nursing Vitals/I&O/Wt Last Vital Signs Temp 98.1 F 01/13/21 14:02 Pulse 70 01/13/21 14:36 Resp 15 01/13/21 14:36 BP 160/66 01/13/21 14:36 Pulse Ox 95 01/13/21 14:36 01/12/21 01/13/21 01/13/21 22:59 06:59 14:59 Intake Total 0 / 0 Balance 0 / 0 Weight last 48 hrs Weight 88.451 kg Physical Exam Const: COMMON NORMALS: patient oriented x3 HENMT: COMMON NORMALS: normocephalic and atraumatic HEAD & SCALP: normocephalic and atraumatic Resp: COMMON NORMALS: clear to auscultation bilaterally AUSCULTATION: clear to auscultation bilaterally Cardio: COMMON NORMALS: regular rate, regular rhythm, S1 normal heart sound present, S2 normal heart sound present, No gallops present (Cardio), No murmurs present (Cardio), No rub (Cardio) and Peripheral pulses 2+ throughout RATE: regular rate RHYTHM: regular rhythm HEART SOUNDS: S1 normal heart sound present and S2 normal heart sound present PERIPHERAL PULSES: Peripheral pulses 2+ throughout GI: COMMON NORMALS: Normal to inspection, nondistended, normoactive bowel sounds present, Soft to palpation, non-tender, No hepatosplenomegaly present and no masses AUSCULTATION: Yes normoactive bowel sounds PALPATION: Yes Soft to palpation and Yes No hepatosplenomegaly present RECTAL EXAM: Yes deferred Extremity: OTHER: RT BKA, LT l/e dry gangrene of feet. Neuro: COMMON NORMALS: patient oriented x3 Data : 01/13/21 09:17 01/13/21 09:17 A&P Assessment and plan (1) Anemia: Acute on Chronic normocytic annemia. Likely 2/2 post intervention blood loss. Cureent PLan is to transfuse 1 u PRBC and monitor CBC. Status: Acute (2) ESRD (end stage renal disease) on dialysis: Renal on board for scheduled hemodialysis Status: Acute (3) Diabetes: LDSSI Monitor fingerstick glucose Status: Acute (4) Hypertension: Amlodipine 5 mg p.o. daily Entresto p.o. twice daily Status: Acute (5) Combined systolic and diastolic congestive heart failure: Currently compensated Monitor intake output Daily weight Status: Acute Qualifiers: Heart failure chronicity: chronic Qualified Code(s): I50.42 - Chronic combined systolic (congestive) and diastolic (congestive) heart failure Additional A&P Information right groin pseudoaneurysm : Current plan is to monitor the patient. Attestations Medical Necessity Statement*: Patient needs to be in hospital for management of anemia and need for blood transfusion. 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
--- NOTE | 2021-01-13 19:08 | PC.NURSE ---
Report to Felipa LOMELI at this time.
[2021-01-13] MEDS: sevelamer 800 mg Tablet PO (19:15)
[2021-01-13] MEDS: levETIRAcetam 500 mg Tablet PO (20:38)
[2021-01-13] MEDS: pantoprazole DR 40 mg Tablet PO (20:38)
[2021-01-13] MEDS: sacubitril/valsartan 24-26 mg Tablet 1 EACH PO (20:38)
[2021-01-13] MEDS: ondansetron 2 mg/ML SDV 2 mL 4 MG IVP (20:52)
[2021-01-13 21:16] LABS: Glucose Point of Care 108 mg/dL (70-110)
[2021-01-13] MEDS: acetaminophen 325 mg Tablet 650 MG PO (21:41)
[2021-01-14] VITALS: BP 129/61; PULSE 80; RESP 18; TEMP 37.3; O2SAT 96
[2021-01-14 03:15] VITALS: BP 122/66; PULSE 74; RESP 16; TEMP 37.1; O2SAT 96
[2021-01-14 06:00] LABS: Basophils % 0.7 %; Eosinophils # 0.3 10^3/uL (0.0-0.8); Eosinophils % 4.4 %; Hemoglobin 8.2 g/dL (11.7-16.6); Lymphocytes # 0.7 10^3/uL (0.8-4.8); Lymphocytes % 11.9 %; Mean Corpuscular HGB Conc 31.5 g/dL (30.0-36.0); Mean Corpuscular Hemoglobin 31.3 pg (28.0-34.0); Mean Corpuscular Volume 99.2 fl (80-94); Mean Platelet Volume 9.2 fL (7.4-10.4); Monocytes # 0.6 10^3/uL (0.2-0.9); Monocytes % 9.5 %; Neutrophils # 4.29 10^3/uL (1.8-7.7); Neutrophils % 73.2 %; Nucleated Red Blood Cells % 0 %; Platelet Count 202 10^3/cmm (130-400); Red Blood Count 2.62 10^6/uL (4.1-5.3); Red Cell Distribution Width 14.4 % (12.1-15.1); White Blood Count 5.9 10^3/uL (4.0-10.0)
[2021-01-14 06:11] LABS: INR 1.24 (0.8-1.2)
[2021-01-14 06:13] LABS: Partial Thromboplastin Time 39.4 SECONDS (23.9-36.7)
[2021-01-14 06:20] LABS: Anion Gap 12.5 (5-19); Blood Urea Nitrogen 25 mg/dL (8-23); Calcium 8.3 mg/dL (8.5-10.5); Carbon Dioxide 29 mmol/L (22-29); Chloride 97 mmol/L (98-107); Glucose 88 mg/dL (65-115); Osmolality Calculated 282 mOsm/kg (285-295); Potassium 4.5 mmol/L (3.5-5.1); Sodium 134 mmol/L (136-145)
[2021-01-14 06:35] LABS: Glucose Point of Care 95 mg/dL (70-110)
[2021-01-14] MEDS: heparin, porcine 1,000 unit/mL INJ 10 mL HE (09:00)
--- NOTE | 2021-01-14 09:16 | PC.HD ---
Dialysis nurse unable to access Worklist. Pre-HD patient was awake and alert, on 2L NC. Report received from Felipa. Assessment indicates patient is stable for HD treatment. BP: 138/62 HR: 67 RR: 16 Temp: 37.1 Weight: 95.7 kg Right chest HD catheter dressing was changed. No s/s infection noted.
[2021-01-14 10:15] VITALS: BMI 31.4
--- NOTE | 2021-01-14 11:29 | P.DS_ITS ---
Discharge Providers Date of Discharge: January 14, 2021 Attending Provider at Discharge: Nathan Vance MD Diagnoses at Discharge Discharge Diagnosis (1) Anemia: Status: Acute (2) ESRD (end stage renal disease) on dialysis: Status: Acute (3) Diabetes: Status: Acute (4) Hypertension: Status: Acute (5) Combined systolic and diastolic congestive heart failure: Status: Acute Permanent problem details: Echo 08/04 demonstrates EF 35 to 40% Qualifiers: Heart failure chronicity: chronic Qualified Code(s): I50.42 - Chronic combined systolic (congestive) and diastolic (congestive) heart failure Reason for Visit Reason for Visit: BLEEDING FROM WOUND ON FOOT Hospital Course Hospital Course 70 year old male with PMH of right BKA for diabetic foot infection, osteomyelitis, noninsulin-dependent type 2 diabetes mellitus, seizure, ESRD D/D mwf , combined HFref as well as HFpEF, CABG, lt L/E PAD S/P recent CSI atherectomy of the mid to distal left SFA and peroneal artery. It was followed by balloon angioplasty of peroneal artery anterior tibial artery and mid to distal left SFA. anemia, ESBL E. coli UTIs and pyelonephritis, VRE and ESBL skin infections, recent history of sepsis and gram-positive bacteremia staph aureus secondary to dialysis catheter which was replaced, finished 2 weeks of vancomycin, JOSEPH negative for endocarditis.Was brought in from [facility] as he was complaining of a sore on his sacrum.Upon arrival in the ER routine blood work was done, which revealed Hb of 7.4 usually his Hb stays around 9. Imaging studies in the ER:CT abdomen pelvis w con:There is a intensely enhancing nodule measuring 3.3 x 3.2 cm in the RIGHT inguinal region. There is adjacent soft tissue which is nonenhancing.Due to the dense enhancement. Favor this may be a pseudoaneurysm. A small track extending to a calcified femoral artery is likely. CV arterial dup groin RT: Complex cystic mass at the right groin corresponds.Moderate right groin pseudoaneurysm.He was admitted for the management of acute on chronic normocytic anemia secondary to post intervention blood loss. Received 1 unit of PRBC transfusion posttransfusion CBC with stable.For his right groin pseudoaneurysm secondary to recent history of left lower extremity CSI and ballon angioplasty: Current plan is to do repeat arteri al dup groin RT in 1 week time, continue to hold Plavix and aspirin for 2 weeks, based on the arterial duplex, cardiology will decide on the future course.Patient has been scheduled to see cardiology as an outpatient in 1 week, he will also get a repeat arterial duplex groin in 1 week. Patient was also managed for UTI, he was kept on ceftriaxone, urine culture is growing gram- negative guilherme, he is being discharged on levofloxacin for additional 1 week, renally dosed. For his end-stage renal disease dialysis dependent he was continued on scheduled dialysis. Patient responded well to the above medical management and is being discharged in stable condition.He will continue to follow cardiology as an outpatient. Physical Exam Const: COMMON NORMALS: patient oriented x3 HENMT: COMMON NORMALS: normocephalic and atraumatic HEAD & SCALP: normocephalic and atraumatic Resp: COMMON NORMALS: clear to auscultation bilaterally AUSCULTATION: clear to auscultation bilaterally Cardio: COMMON NORMALS: regular rate, regular rhythm, S1 normal heart sound present, S2 normal heart sound present, No gallops present (Cardio), No murmurs present (Cardio), No rub (Cardio) and Peripheral pulses 2+ throughout RATE: regular rate RHYTHM: regular rhythm HEART SOUNDS: S1 normal heart sound present and S2 normal heart sound present PERIPHERAL PULSES: Peripheral pulses 2+ throughout GI: COMMON NORMALS: Normal to inspection, nondistended, normoactive bowel sounds present, Soft to palpation, non-tender, No hepatosplenomegaly present and no masses AUSCULTATION: Yes normoactive bowel sounds PALPATION: Yes Soft to palpation and Yes No hepatosplenomegaly present RECTAL EXAM: Yes deferred Extremity: OTHER: RT BKA, LT l/e dry gangrene of feet. Neuro: COMMON NORMALS: patient oriented x3 Discharge Data Data Completed and Pending: Completed Studies During Hospitalization Category Date Time Status CT abdomen pelvis w con* [id number] Stat Cat Scan 01/13/21 09:43 [place] [id number] Stat Ultrasound 01/13/21 10:58 Completed Pending at discharge Category Date Time Status Immunochemical Fe lissa OCB Routine Lab 01/13/21 13:00 Ordered Urine Culture Sta t Lab 01/13/21 11:53 Results Labs from last 24 hours 01/14/21 01/14/21 01/14/21 06:30 05:40 05:40 WBC RBC Hgb Hct MCV MCH MCHC RDW Plt Count MPV Neut % (Auto) Lymph % (Auto) Mclennan % (Auto) Eos % (Auto) Baso % (Auto) Neut # (Auto) Lymph # (Auto) Mclennan # (Auto) Eos # (Auto) Baso # (Auto) Nucleated RBC % (a uto) Nucleated RBCs # PT 15.90 H INR 1.24 H APTT 39.4 H Sodium 134 L Potassium 4.5 Chloride 97 L Carbon Dioxide 29 Anion Gap 12.5 BUN 25 H Creatinine 3.3 H GFR Calculation Not Reportable Glucose 88 POC Glucose 95 Calculated Osmolal ity 282 L Calcium 8.3 L Urine Color Urine Appearance Urine pH Ur Specific Gravit y Urine Protein Urine Glucose (UA) Urine Ketones Urine Blood Urine Nitrate Urine Bilirubin Prot Sulfosalicyli c Acd Urine Urobilinogen Ur Leukocyte Nadege ase Urine RBC Urine WBC Ur Squamous Epith Cells Amorphous Sediment Urine Bacteria Blood Type Rho(D) Type Antibody Screen Crossmatch 01/14/21 01/13/21 01/13/21 05:40 20:18 11:53 WBC 5.9 RBC 2.62 L Hgb 8.2 L Hct 26.0 L MCV 99.2 H MCH 31.3 MCHC 31.5 RDW 14.4 Plt Count 202 MPV 9.2 Neut % (Auto) 73.2 Lymph % (Auto) 11.9 Mclennan % (Auto) 9.5 Eos % (Auto) 4.4 Baso % (Auto) 0.7 Neut # (Auto) 4.29 Lymph # (Auto) 0.7 L Mclennan # (Auto) 0.6 Eos # (Auto) 0.3 Baso # (Auto) 0.0 Nucleated RBC % (a uto) 0 Nucleated RBCs # 0.0 PT INR APTT Sodium Potassium Chloride Carbon Dioxide Anion Gap BUN Creatinine GFR Calculation Glucose POC Glucose 108 Calculated Osmolal ity Calcium Urine Color Yellow Urine Appearance Cloudy Urine pH 9 H Ur Specific Gravit y 1.010 Urine Protein 1+ H Urine Glucose (UA) Norm Urine Ketones Negative Urine Blood 2+ H Urine Nitrate Negative Urine Bilirubin 1+ H Prot Sulfosalicyli c Acd Positive Urine Urobilinogen Norm Ur Leukocyte Nadege ase 2+ H Urine RBC 0-4 H Urine WBC Too numerous to c nt H Ur Squamous Epith Cells 5-10 H Amorphous Sediment Not Reportable Urine Bacteria 2+ H Blood Type Rho(D) Type Antibody Screen Crossmatch 01/13/21 10:42 WBC RBC Hgb Hct MCV MCH MCHC RDW Plt Count MPV Neut % (Auto) Lymph % (Auto) Mclennan % (Auto) Eos % (Auto) Baso % (Auto) Neut # (Auto) Lymph # (Auto) Mclennan # (Auto) Eos # (Auto) Baso # (Auto) Nucleated RBC % (a uto) Nucleated RBCs # PT INR APTT Sodium Potassium Chloride Carbon Dioxide Anion Gap BUN Creatinine GFR Calculation Glucose POC Glucose Calculated Osmolal ity Calcium Urine Color Urine Appearance Urine pH Ur Specific Gravit y Urine Protein Urine Glucose (UA) Urine Ketones Urine Blood Urine Nitrate Urine Bilirubin Prot Sulfosalicyli c Acd Urine Urobilinogen Ur Leukocyte Nadege ase Urine RBC Urine WBC Ur Squamous Epith Cells Amorphous Sediment Urine Bacteria Blood Type A Positive Rho(D) Type Positive Antibody Screen Negative Crossmatch See Detail Vitals: Last Vital Signs Temp 98.8 F 01/14/21 03:15 Pulse 74 01/14/21 03:15 Resp 16 01/14/21 03:15 BP 122/66 01/14/21 03:15 Pulse Ox 96 01/14/21 03:15 Discharge Plan Discharge Patient Disposition: Home Prescriptions: New levofloxacin 500 mg tablet 500 mg PO Q48H 7 Days Qty: 4 RF: 0 Continued levetiracetam [Keppra] 500 mg Tablet 500 mg PO BID@0800,1999 RF: 0 ascorbic acid (vitamin C) [Vitamin C] 500 mg Tablet 500 mg PO DAILY@0800 RF: 0 pantoprazole 40 mg Tablet,Delayed Release (Dr/Ec) 40 mg PO BID@, RF: 0 [place] Plus Cold+Flu 12.5-10-20-650 mg Powder In Packet 1 packet PO Q4H PRN (Reason: reflux) RF: 0 isosorbide mononitrate 30 mg Tablet Extended Release 24 Hr 30 mg PO DAILY@0800 RF: 0 amlodipine 5 mg Tablet 5 mg PO DAILY@0800 RF: 0 sevelamer carbonate 800 mg Tablet 800 mg PO TID@08,, RF: 0 acetaminophen 650 mg Tablet Extended Release 650 mg PO Q4H MDD 3,000 mg PRN (Reason: Pain) RF: 0 diclofenac sodium 1 % Gel 2 - 4 g TOPICAL BID@,20 RF: 0 Pro Stat Nutritional 15 ml PO BID@, RF: 0 Entresto 24-26 mg tablet 1 tab PO BID@ RF: 0 atorvastatin 40 mg Tablet 40 mg PO DAILY@1999 30 Days Qty: 30 RF: 0 bisacodyl 10 mg Suppository 10 mg [place] DAILY PRN (Reason: Constipation) RF: 0 Senna-S 8.6-50 mg Tablet 1 tab PO BID PRN (Reason: Constipation) RF: 0 Milk of Magnesia 400 mg/5 mL Suspension 30 ml PO DAILY PRN (Reason: Constipation) RF: 0 Enema Disposable 19-7 gram/118 mL Enema 118 ml [place] DAILY PRN (Reason: Constipation) RF: 0 Santyl 250 unit/gram Ointment 1 applic TOPICAL DAILY RF: 0 morphine concentrate 20 mg/mL Syringe See Rx Instructions .ROUTE .COMPLEX RF: 0 Cough Drops See Rx Instructions .ROUTE .COMPLEX RF: 0 Bactrim DS 800-160 mg tablet 1 tab PO BID@ RF: 0 Held aspirin 81 mg Tablet,Delayed Release (Dr/Ec) 81 mg PO DAILY@0800 30 Days Qty: 30 RF: 0 Hold Instructions: Resume on 01/28/21. clopidogrel 75 mg Tablet 75 mg PO DAILY@0800 30 Days Qty: 30 RF: 0 Hold Instructions: Resume on 01/28/21. Discontinued cephalexin 500 mg capsule 500 mg PO BID 10 Days Qty: 20 RF: 0 Discharge Orders: Discharge Order (Routine); Ordered 01/14/21 Ordered By: Nathan Vance Other Ambulatory Orders: [place] [id number] (Routine) Timeframe: 1 Week Location: [facility] Ordered By: Nathan Vance Referrals: Hamilton Pearce MD [Physician] - 1 month (Please call to make follow up. ) Ying Son FNP [Nurse Practitioner] - 1 week Diet: Low Salt Patient Instructions: Levofloxacin (By mouth) Discharge Attestations Time Spent in Discharge Care*: less than 30 min Specific Discharge Activities: educating patient, educating and/or supporting family/caregiver, discussing with pcp/other providers, discussing with skilled nursing case manager/social workers/dc planners, documenting/other paperwork and evaluating patient/reviewing data Status at Discharge: Cognitive status at discharge: cognitively intact , Behavioral status at discharge: cooperative , Quality Metrics Clinical Quality Measures During this hospital stay, did patient experience: None Coding Level of Care Code Acute g FW [place] note Diagnoses Anemia D64.9 ESRD (end stage renal disease) on dialysis N18.6; Z99.2 Diabetes E11.9 Hypertension I10 Combined systolic and diastolic congestive heart failure I50.42 Heart failure chronicity: chronic
[2021-01-14 12:00] VITALS: BP 124/58; PULSE 54; RESP 18; TEMP 36.3; O2SAT 95
--- NOTE | 2021-01-14 12:54 | P.PN_ITS ---
Subjective Subjective: Interval history: Mr. Fernandez is seen and examined on hemodialysis today. He is tolerating the treatment well. No complications thus far. Hemodynamics reviewed, remained stable. Dialysis parameters reviewed in detail. Noted to be admitted for diabetic foot ulcer and cellulitis. Receiving combination antibiotic therapy. No extremity edema or other hypervolemic symptoms. No uremic symptoms. He is quite jovial in the dialysis suite today. Vitals/I&O/Wt Last Vital Signs Temp 98.8 F 01/14/21 03:15 Pulse 74 01/14/21 03:15 Resp 16 01/14/21 03:15 BP 122/66 01/14/21 03:15 Pulse Ox 96 01/14/21 03:15 01/13/21 01/14/21 01/14/21 22:59 06:59 14:59 Intake Total 350 / 350 600 / 950 Output Total 400 / 400 Balance 350 / 350 200 / 550 Weight last 48 hrs Weight 88.451 kg Weight 88.451 kg Weight 88.451 kg Physical Exam Narrative: EXAM NARRATIVE: Constitutional: Awake, comfortable HEENT: Wet mucosa, no jvp, non icteric Lungs: Bilaterally clear without discernible wheeze, rales in all lung zones CVS: S1 S2, no murmurs Abdo: Soft, BS ok Ext 4: Minimal edema, peripheral perfusion with no cyanosis, lower extremity cellulitis Neurological: Grossly non-focal Data : 01/14/21 05:40 01/14/21 05:40 Micro: Microbiology 01/13/21 11:53 Urine Culture - Preliminary Urine,Clean Catch Gram Negative Rods A&P Additional A&P Information 1. ESRD Seen and examined on dialysis today, plan next dialysis treatment on Sunday if he remains in the hospital. Dose medication for GFR less than 15 on dialysis 2. Cellulitis Management per hospitalist team including management of antibiotics. Cultures pending. 3. Hemodynamics Nice and stable during dialysis 4. Chronic ESRD issues To manage as an outpatient as part of standard monthly management. Continue home medication Thank for consultation, as always it is a pleasure to follow these cases with you Dennis Carreon MD Nephrology [phone] Patient seen and examined via telemedicine, with the assistance of the bedside RN > 25 min spent in evaluation and mgmt of patient Attestations Medical Necessity Statement*: Eval for ESRD mgmt Coding Level of Care Code Acute Picture Frames Inspector for Chg Daniel
--- NOTE | 2021-01-14 14:56 | PC.CHAP ---
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 computer support analyst visit [] Patient/Family/Request visit [] Outpatient visit [] Follow-up visit [] Physician referral [] Code/Alert [xx] Routine visit [] Staff referral [] Actively dying [] Patient sleeping [] Family support [] [] Out of room [] Palliative care [] [] Receiving care in room [] Pre-surgical visit [] Trauma [] Long length of stay [] ICU visit [] Other: Relational/Emotional Strength [xx] Patient feels connected with others/family/visitors/staff [] Distress [] Loneliness/isolation [] Abandonment Spirituality of Patient [] Person of Ghislaine [] Attends Moravian of their Ghislaine [xx] Believes in Prayer [] Reads Bible or Evangelical materials [] There are Spiritual issues to be addressed Senior Research Consultant Interventions [xx] Prayer [xx] Active listening [xx] Non-anxious presence [] Spiritual/emotional support [] Crisis/trauma care [] Spiritual counseling [] Bereavement support [] Provided bereavement packet [] Provided Bible/devotional materials [] Provided toy/stuffed animal, coloring book to patient or family member [] Provided Communion [] Anointing/[place] [] Salvation [xx] Completed spiritual assessment [] Other: Impact on Illness or Injury [] Angry [] Fearful [xx] Anxious [] Often cries [] Exhaustion [] Unable to work [] Unable to attend church [] Unable to walk/stand [] Unable to read [] Unable to drive [] Unable to eat/drink [] Unable to sleep [] Unable to be with family [] Patient intubated [] Other: Summary Patient stated he plans to move to [place] before winter to live with a younger brother. He is concerned about what will happen now that he is disabled. Time spent with patient 5 minutes
[2021-01-14 15:35] VITALS: BP 135/67; PULSE 86; RESP 18; TEMP 36.7; O2SAT 98
--- NOTE | 2021-01-14 17:01 | PC.NURSE ---
PT HAS DONE WELL FOR ME TODAY. PT HAS NOT HAD ANY COMPLAINTS OF PAIN. PT IS READY TO GO BACK TO [facility]. PT WILL DISCHARGE BACK TO SNF TODAY PER MD. REPORT CALLED TO SCOTT MELGOZA. ALL QUESTIONS ANSWERED. PT WILL LEAVE WITH [facility] WHEN THEY GET HERE TO GET HIM.
[2021-01-14 17:02] VITALS: BP 135/67; PULSE 86; RESP 18; TEMP 36.7; O2SAT 98
--- NOTE | 2021-01-18 09:22 | PC.SOCIAL ---
01-17-21, 1030. discharge follow up call made spoke with patients nurse, Fallon. She reports patient refused all of his medications this am. patient is also wanting to refuse dialysis today. 01-18 spoke with pao at [facility]. Nurse spoke with pao in forensic social worker regarding venous duplex scheduled for 01-19 at 1130. [facility] will provide transportation for patient. Nurse called Pao back to give her appointment date and time for patient to see Ying Son, patient has dialysis tomorrow so all appointment will be reschedule. Pao will call and reschedule those appointments.
== END 2021-01-14 17:03 ==
LOC: ER 09:27 → MEDSURG 01-14 07:08 → ER 01-14 09:52 → MEDSURG 01-14 11:29 → ER 01-14 15:52 → MEDSURG 01-14 15:54
PROVIDERS: Admitting Provider Internal Medicine; Emergency Provider Family Medicine; Visit Provider Internal Medicine
DX: D64.9 Anemia, unspecified (principal); N18.6 End stage renal disease; Z99.2 Dependence on renal dialysis; E11.22 Type 2 diabetes mellitus with diabetic chronic kidney disease; I13.2 Hypertensive heart and chronic kidney disease with heart failure and with stage 5 chronic kidney disease, or end stage renal disease; I50.42 Chronic combined systolic (congestive) and diastolic (congestive) heart failure; Z95.1 Presence of aortocoronary bypass graft; I25.10 Atherosclerotic heart disease of native coronary artery without angina pectoris; Z86.16 Personal history of COVID-19; T81.718A Complication of other artery following a procedure, not elsewhere classified, initial encounter
CPT/HCPCS: 36415; 36416; 36430; 74177; 80048; 80053; 81001; 82550; 82962; 85025; 85610; 85730; 86850; 86900; 86920; 87077; 87086; 87186; 93926; 96365; 96372; 96375; 99285; G0378; J0696; J1644; J2405; P9016; Q9967

== ENCOUNTER 2021-01-28 12:31 | Day surgery (SDC) | payer MEDICARE, MEDICAID, SELFPAY ==
[2021-01-28] VITALS (10 sets, daily range): BP systolic 109–161; BP diastolic 55–75; PULSE 62–85; RESP 16–18; TEMP 36.6–36.9; O2SAT 96–99
--- NOTE | 2021-01-28 14:50 | PC.NURSE ---
1430 Pt to OPS via recliner for blood transfusion. Awaiting call from blood bank when blood ready. Report given to YANI Sweet. Pt to receive 2 units PRBC's. OPS to transfer pt to floor to complete blood transfusion when OPS department closes. dewatering filtering supervisor aware of need for floor bed and states there should be a bed available at that time.
[2021-01-28] MEDS: sodium chloride 0.9% (100 ml) 100 ML 125 ML (15:12)
--- NOTE | 2021-01-28 15:54 | PC.NURSE ---
Infusion was paused at 1513vbecause at initiation IV was found to be mostly out and not flushing. IV removed and new site started in right AC. Blood restarted at 1542.
--- NOTE | 2021-01-28 19:30 | PC.NURSE ---
Per Donya Good, patient needs to come to [facility] as outpatient in a bed after blood transfusion in outpatient surgery d/t [facility] not being able to accept patient after 1630. Instructions were given to set up transportation through [facility] on 01/29/21 at 0600 so patient can return to [facility] first thing in the morning. These instructions, [facility], and patient's medicaid number were passed on to the NH leather fitter charge nurse, Filomena. Patient arrived to [facility] floor via wheelchair from [facility] at approximately 1830. Patient was settled into bed by [facility] staff. VSS at time of arrival.
[2021-01-29 03:46] VITALS: BP 145/70; PULSE 79; RESP 18; TEMP 36.9; O2SAT 91
--- NOTE | 2021-01-29 05:30 | PC.NURSE ---
Addendum entered by Christopher Huston LPN 01/29/21 07:37: Patient incident occurred at approximately 2300 on 01/28/2021 Original Note: Nurse found patient in floor after hearing call for help. Patient assisted back to bed and assessed for injuries with none noted. When asked the patient sated The switch fell into the floor and I tried to reach it. I wasn't able to push myself up in bed. I slid down to the floor . When asked if he had hit his head patient denied that occurring. Patient just restated I just slid down to the floor . Patient educated on the need for call light to be used in the future when objects can not be reached, patient verbalized understanding.
--- NOTE | 2021-01-29 07:41 | PC.NURSE ---
Patient incident report filed at 0530 on 01/29/2021 with incident occurring at approximately 2300 on 01/29/21
[2021-01-29 08:40] VITALS: BP 145/70; PULSE 79; RESP 18; TEMP 36.9; O2SAT 91
== END 2021-01-29 07:00 | disposition home or self-care (01) ==
LOC: OPS 12:34 → MEDSURG 19:37
PROVIDERS: PCP Internal Medicine; Visit Provider Nurse Practitioner Family
DX: D64.9 Anemia, unspecified (principal)
CPT/HCPCS: 36415; 36430; 86850; 86900; 86920; P9016

== ENCOUNTER 2021-01-31 10:15 | Inpatient (IN) | payer MEDICARE, MEDICAID, SELFPAY ==
[2021-01-31] VITALS (7 sets, daily range): BP systolic 113–149; BP diastolic 50–70; PULSE 66–95; RESP 16–18; TEMP 36.4–36.6; O2SAT 93–96; BMI 33.9; BMI 31.8
--- NOTE | 2021-01-31 10:19 | XRR_ITS ---
PROCEDURE INFORMATION: Exam: XR Chest Exam date and time: 01/31/2021 10:19 AM Age: 70 years old Clinical indication: Cough and dyspnea; Additional info: Dyspnea/cough TECHNIQUE: Imaging protocol: XR of the chest. Views: 1 view. Total images: 1 COMPARISON: CR (CHEST, ) 12/27/2020 5:55 PM FINDINGS: Tubes, catheters and devices: A right internal jugular central venous catheter is present, with its tip overlying the region of the superior vena cava and unchanged from prior exam. Lungs: Coarse chronic pulmonary markings. Trace bibasilar atelectasis or scar. Pleural spaces: Unremarkable. No pleural effusion. No pneumothorax. Heart/Mediastinum: Unremarkable. No cardiomegaly. Bones/joints: Osseous structures are unchanged from the prior exam. Other findings: Stable postsurgical changes. XR/XR chest 1V portable [id number] IMPRESSION: 1. Coarse chronic pulmonary markings. 2. Trace bibasilar atelectasis or scar. Radiation Dose CTDIVOL = (mGy): DLP = (mGy-cm)
--- NOTE | 2021-01-31 10:20 | ECG_ITS ---
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 Measurements Intervals [place] Rate: 68 P: 265 MO: 129 QRS: -10 QRSD: 112 T: 79 QT: 392 QTc: 419 Interpretive Statements SINUS RHYTHM MODERATE INTRAVENTRICULAR CONDUCTION DELAY [110+ ms QRS DURATION] MODERATE VOLTAGE CRITERIA FOR LVH, CONSIDER NORMAL VARIANT [MEETS CRITERIA IN ONE OF: R(aVL), S(V1), R(V5), R(V5/V6)+S(V1)] NONSPECIFIC ST & T-WAVE ABNORMALITY Compared to ECG 12/29/2020 08:54:10 Intraventricular conduction delay now present T-wave abnormality now present Sinus bradycardia no longer present Myocardial infarct finding no longer present Prolonged QT interval no longer present Electronically Signed On 01-31-2021 19:18:22 CDT by Lashay Knapp M.D. [id number]
--- NOTE | 2021-01-31 10:49 | PC.NURSE ---
PATIENT CONNECTED TO SHEET METAL WORKER SUPERVISOR PER PROTOCOL.
[2021-01-31 10:56] LABS: Basophils # 0.1 10^3/uL (0.0-0.1); Basophils % 0.6 %; Eosinophils # 0.3 10^3/uL (0.0-0.8); Eosinophils % 2.9 %; Hematocrit 28.7 % (42.0-52.0); Hemoglobin 9.2 g/dL (11.7-16.6); Lymphocytes % 10.8 %; Mean Corpuscular HGB Conc 32.1 g/dL (30.0-36.0); Mean Corpuscular Hemoglobin 31.9 pg (28.0-34.0); Mean Corpuscular Volume 99.7 fl (80-94); Mean Platelet Volume 8.8 fL (7.4-10.4); Monocytes # 0.7 10^3/uL (0.2-0.9); Monocytes % 7.7 %; Neutrophils # 6.85 10^3/uL (1.8-7.7); Neutrophils % 77.3 %; Nucleated Red Blood Cells % 0 %; Platelet Count 213 10^3/cmm (130-400); Red Blood Count 2.88 10^6/uL (4.1-5.3); Red Cell Distribution Width 13.3 % (12.1-15.1); White Blood Count 8.9 10^3/uL (4.0-10.0)
--- NOTE | 2021-01-31 11:07 | ED_ITS ---
HPI - Altered Mental Status General: Chief Complaint: Altered Mental Status Stated Complaint: AMS, L FOOT WOUND Time Seen by Provider: 01/31/21 10:18 History of Present Illness: HPI narrative: 70-year-old male presents emergency room from the group home. Has been in and out of the hospital several times recently. There is stating he has altered mental status at the group home. He recently had a hospitalization for encephalopathy. He has some L foot ulcers on her previous below the knee amputation on his right leg. He tells me he is not very confused he does remember he is at the group home but he cannot get the date or month correct from any questions were asked him he does not respond or simply stares off. He does deny chest or abdominal pain or shortness of breath. MD complaint: altered mental status Onset (ago): unknown Timing confirmed by: caregiver Severity: moderate Consistency of symptoms: Waxing and Waning Associated symptoms: Deny auditory hallucinations or visual hallucinations Review of Systems General: Reports: Other (Limited due to his altered mental status) Card: Denies: chest pain Resp: Denies: dyspnea GI: Denies: abdominal pain, nausea or vomiting Musc: Denies: neck pain, back pain or extremity pain Psych: Denies: visual hallucinations or auditory hallucinations PFSH ED PFSH: Medical History Acute encephalopathy Acute on chronic anemia Altered mental status Anemia Anemia Anemia in CKD (chronic kidney disease) Atherosclerosis of coronary artery of [place] heart without angina pectoris Atherosclerotic heart disease of [place] coronary artery without angina pectoris Bradycardia CAD (coronary artery disease) Cellulitis of left lower extremity CHF (congestive heart failure) Chronic ulcer of ankle CKD (chronic kidney disease), stage V started hemodialysis 07/29/2020 Combined systolic and diastolic congestive heart failure Echo 08/04 demonstrates EF 35 to 40% COVID-19 (~01/2020) Decubitus ulcer Diabetes Diabetes mellitus Diabetic peripheral neuropathy associated with type 2 diabetes mellitus Elevated troponin ESRD (end stage renal disease) ESRD (end stage renal disease) on dialysis Gangrene of left foot History of ESBL E. 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 hx of multilevel DJD, s/p spinal stimulator Peripheral arterial disease Peripheral neuropathy Polyneuropathy in other diseases classified elsewhere Pre-operative cardiovascular examination Seizure disorder Spinal cord stimulator status Spinal stenosis Type 2 diabetes mellitus Surgical History S/P CABG x 3 S/P dialysis catheter insertion (07/29/20) Giurgius S/P insertion of spinal cord stimulator Status post below knee amputation of right lower extremity Family History Mother Cancer Brother Lung disease Other Hyperlipidemia Hypertension Denies family history of Diabetes CAD (coronary artery disease) Clotting disorder Dementia Psychiatric illness Chronic kidney disease (CKD) Suicide Anesthesia complication Bleeding disorder Stroke Social History Alcohol intake: former Lives independently: No (Brother is his power of adolescent psychiatrist, recently has had to be involved in more decisions) Housing: Skilled Nursing Physical Exam Const: COMMON NORMALS: no acute distress GENERAL APPEARANCE: cooperative and comfortable ORIENTATION/CONSCIOUSNESS: Yes awake, Yes oriented to person, Yes oriented to place and Yes oriented to time HENMT: COMMON NORMALS: normocephalic, atraumatic and hearing grossly normal bilaterally HEAD & SCALP: normocephalic and atraumatic Neck/C-Spine: COMMON NORMALS: no JVD Resp: COMMON NORMALS: normal respiratory effort, No retractions, No use of accessory muscles and clear to auscultation bilaterally AUSCULTATION: clear to auscultation bilaterally Cardio: COMMON NORMALS: no JVD, regular rate, regular rhythm and No murmurs present (Cardio) RATE: regular rate RHYTHM: regular rhythm GI: COMMON NORMALS: Soft to palpation and No hepatosplenomegaly present AUSCULTATION: Yes normoactive bowel sounds PALPATION: Yes Soft to palpation, No Tenderness to palpation present (GI), No Guarding due to palpation present (GI) and Yes No hepatosplenomegaly present Extremity: COMMON NORMALS: normal to inspection, capillary refill normal, no clubbing, cyanosis or edema, no calf tenderness and no pedal edema Neuro: SENSORIUM/ORIENTATION: Yes oriented to person, Yes oriented to place and Yes oriented to time Skin: COMMON NORMALS: no rashes or lesions noted GENERAL SKIN EXAM: no rashes or lesions noted Course Vital Signs: Vital signs: Vital Signs Temperature 97.5 F L 01/31/21 10:26 Pulse Rate 79 01/31/21 13:46 Respiratory Rate 17 01/31/21 12:15 Blood Pressure 146/64 01/31/21 10:26 Pulse Oximetry 96 01/31/21 13:46 MDM - Altered Mental Status MDM Narrative: Medical decision making narrative: Labs and imaging reviewed patient in renal failure with mild hyperkalemia he is has known end-stage renal disease and is due for dialysis run today. Appears to have a cystitis as well. Has had multiple episodes in the past. The wounds on his foot actually do look like they are healing local little better than what I have seen on him in the past. At this point will consult nephrology admit for IV antibiotics discussed with hospitalist orders written Lab Data: Labs: Lab Results 01/31/21 01/31/21 01/31/21 10:45 10:45 10:45 WBC 8.9 10^3/uL 10^3/ uL (4.0-10.0) RBC 2.88 10^6/uL L 10 ^6/uL (4.1-5.3) Hgb 9.2 g/dL L g/dL (11.7-16.6) Hct 28.7 % L % (42.0-52.0) MCV 99.7 fl H fl (80-94) MCH 31.9 pg pg (28.0-34.0) MCHC 32.1 g/dL g/dL (30.0-36.0) RDW 13.3 % % (12.1-15.1) Plt Count 213 10^3/cmm 10^3 /cmm (130-400) MPV 8.8 fL fL (7.4-10.4) Neut % (Auto) 77.3 % % Lymph % (Auto) 10.8 % % [place] % (Auto) 7.7 % % Eos % (Auto) 2.9 % % Baso % (Auto) 0.6 % % Neut # (Auto) 6.85 10^3/uL 10^3 /uL (1.8-7.7) Lymph # (Auto) 1.0 10^3/uL 10^3/ uL (0.8-4.8) [place] # (Auto) 0.7 10^3/uL 10^3/ uL (0.2-0.9) Eos # (Auto) 0.3 10^3/uL 10^3/ uL (0.0-0.8) Baso # (Auto) 0.1 10^3/uL 10^3/ uL (0.0-0.1) Nucleated RBC % (a uto) 0 % % Nucleated RBCs # 0.0 /100WBC /100W BC Specimen Type Sample Site ABG pH ABG pCO2 ABG pO2 ABG HCO3 ABG O2 Saturation ABG Base Excess [place] Test A-a O2 Gradient Hematocrit Hgb O2 Saturation Carboxyhemoglobin Methemoglobin Total Hemoglobin Ionized Calcium O2 Delivery Device FiO2 Warehouse Order Selector ID Sodium 137 mmol/L mmol/L (136-145) Potassium 5.6 mmol/L H mmol /L (3.5-5.1) Chloride 101 mmol/L mmol/L (98-107) Carbon Dioxide 25 mmol/L mmol/L (22-29) Anion Gap 16.6 (5-19) BUN 64 mg/dL H mg/dL (8-23) Creatinine 5.2 mg/dL H mg/dL (0.7-1.2) GFR Calculation Not Reportable Glucose 98 mg/dL mg/dL (65-115) Calculated Osmolal ity 302 mOsm/kg H mOs m/kg (285-295) Lactic Acid 0.8 mmol/L mmol/L (0.5-2.2) Calcium 9.1 mg/dL mg/dL (8.5-10.5) Total Bilirubin 0.3 mg/dL mg/dL (0.15-1.2) AST 8 U/L U/L (0-40) ALT 6 U/L U/L (0-41) Alkaline Phosphata se 57 IU/L IU/L (40-130) Creatine Kinase 80 U/L U/L (39-308) Troponin T Baselin e Troponin T 120 Min wilner Delta Troponin T Total Protein 6.2 g/dL L g/dL (6.6-8.7) Albumin 3.0 g/dL L g/dL (3.5-5.2) Globulin 3.2 g/dL g/dL (1.3-4.6) Urine Color Urine Appearance Urine pH Ur Specific Gravit y Urine Protein Urine Glucose (UA) Urine Ketones Urine Blood Urine Nitrate Urine Bilirubin Urine Urobilinogen Ur Leukocyte Nadege ase Urine RBC Urine WBC Ur Squamous Epith Cells Amorphous Sediment Urine Bacteria 10/18/21 10/18/21 10/18/21 10:45 10:55 11:14 WBC RBC Hgb Hct MCV MCH MCHC RDW Plt Count MPV Neut % (Auto) Lymph % (Auto) [place] % (Auto) Eos % (Auto) Baso % (Auto) Neut # (Auto) Lymph # (Auto) [place] # (Auto) Eos # (Auto) Baso # (Auto) Nucleated RBC % (a uto) Nucleated RBCs # Specimen Type Arterial Sample Site Radial, left ABG pH 7.43 (7.35-7.45) ABG pCO2 40.1 mmHg mmHg (35-45) ABG pO2 76.3 mmHg L mmHg (80.0-100.0) ABG HCO3 26.3 mmol/L H mmo l/L (22-26) ABG O2 Saturation 96.5 ABG Base Excess 1.8 mmol/L mmol/L (-2.0-2.0) Gabo Test Pos A-a O2 Gradient 3.2 mmHg L mmHg (5-10) Hematocrit 28.1 % L % (42-52) Hgb O2 Saturation 94.3 % L % (95-100) Carboxyhemoglobin 1.7 %THgb %THgb (0.4-20.1) Methemoglobin 0.6 % % (0.4-1.5) Total Hemoglobin 9.2 g/dL L g/dL (14-18) Ionized Calcium 1.3 mmol/L mmol/L (1.1-1.4) O2 Delivery Device Room air FiO2 21.0 % % Warehouse Order Selector ID Monro Sodium 139.0 mmol/L mmol /L (131-143) Potassium 5.2 mmol/L H mmol /L (3.5-5.0) Chloride Carbon Dioxide Anion Gap BUN Creatinine GFR Calculation Glucose 105.0 mg/dL mg/dL (70-115) Calculated Osmolal ity Lactic Acid Calcium Total Bilirubin AST ALT Alkaline Phosphata se Creatine Kinase Troponin T Baselin e 476 ng/L H* ng/L (0-15) Troponin T 120 Min wilner Delta Troponin T Total Protein Albumin Globulin Urine Color Yellow (Yellow) Urine Appearance Cloudy (CLEAR) Urine pH 6.5 (5-7) Ur Specific Gravit y 1.005 (1.005-1.030) Urine Protein 1+ H (Negative) Urine Glucose (UA) Norm (Normal) Urine Ketones Negative (Negative) Urine Blood 3+ H (Negative) Urine Nitrate Negative (Negative) Urine Bilirubin Neg (Negative) Urine Urobilinogen Norm mg/dL mg/dL (Negative) Ur Leukocyte Nadege ase 2+ H (Negative) Urine RBC >100 /hpf H /hpf (0-2) Urine WBC 10-15 /hpf H /hpf (0-5) Ur Squamous Epith Cells 0-4 /hpf H /hpf (0-5) Amorphous Sediment Not Reportable Urine Bacteria 1+ /hpf H /hpf (NONE) 01/31/21 12:56 WBC RBC Hgb Hct MCV MCH MCHC RDW Plt Count MPV Neut % (Auto) Lymph % (Auto) [place] % (Auto) Eos % (Auto) Baso % (Auto) Neut # (Auto) Lymph # (Auto) [place] # (Auto) Eos # (Auto) Baso # (Auto) Nucleated RBC % (a uto) Nucleated RBCs # Specimen Type Sample Site ABG pH ABG pCO2 ABG pO2 ABG HCO3 ABG O2 Saturation ABG Base Excess [place] Test A-a O2 Gradient Hematocrit Hgb O2 Saturation Carboxyhemoglobin Methemoglobin Total Hemoglobin Ionized Calcium O2 Delivery Device FiO2 Warehouse Order Selector ID Sodium Potassium Chloride Carbon Dioxide Anion Gap BUN Creatinine GFR Calculation Glucose Calculated Osmolal ity Lactic Acid Calcium Total Bilirubin AST ALT Alkaline Phosphata se Creatine Kinase Troponin T Baselin e Troponin T 120 Min wilner 436.6 ng/L H ng/L (0-15) Delta Troponin T -39.4 ABS# L ABS# (0-10) Total Protein Albumin Globulin Urine Color Urine Appearance Urine pH Ur Specific Gravit y Urine Protein Urine Glucose (UA) Urine Ketones Urine Blood Urine Nitrate Urine Bilirubin Urine Urobilinogen Ur Leukocyte Nadege ase Urine RBC Urine WBC Ur Squamous Epith Cells Amorphous Sediment Urine Bacteria Discharge Plan Discharge Patient Disposition: Admitted As Inpatient Clinical Impression: Cystitis, ESRD (end stage renal disease), HTN (hypertension), Pseudoaneurysm following procedure, Anemia, Altered mental status Coding Level of Care Code ED Blueprint Cutter for [facility] Fwd Exam Comprehensive
[2021-01-31 11:08] LABS: ABG PCO2 40.1 mmHg (35-45); ABG PH Result 7.43 (7.35-7.45); Alveolar-Arterial Oxygen Gradi 3.2 mmHg (5-10); Arterial Blood Gas Hematocrit 28.1 % (42-52); Base Excess ABG 1.8 mmol/L (-2.0-2.0); Blood Gas Allen Test Pos; Blood Gas Operator Identificat MONRO; Blood Gas Sample Site Radial, left; Blood Gas Sample Type Arterial; Carboxyhemoglobin 1.7 %THgb (0.4-20.1); HCO3 ABG 26.3 mmol/L (22-26); HGB O2 Sat 94.3 % (95-100); Ionized Calcium Level - ABG 1.3 mmol/L (1.1-1.4); Methemoglobin 0.6 % (0.4-1.5); Oxygen Device ROOM AIR; Oxygen Saturation ABG 96.5; PO2 ABG 76.3 mmHg (80.0-100.0); Potassium Level - ABG 5.2 mmol/L (3.5-5.0); Total Hemoglobin 9.2 g/dL (14-18)
[2021-01-31 11:16] LABS: Lactic Sepsis W/Reflex 0.8 mmol/L (0.5-2.2)
--- NOTE | 2021-01-31 11:16 | PC.NURSE ---
URINE COLLECTED, URINE APPEARED CLOUDY WITH SEDIMENT.
[2021-01-31 11:25] LABS: Alanine Aminotransferase 6 U/L (0-41); Alkaline Phosphatase 57 IU/L (40-130); Anion Gap 16.6 (5-19); Aspartate Amino Transferase 8 U/L (0-40); Blood Urea Nitrogen 64 mg/dL (8-23); Calcium 9.1 mg/dL (8.5-10.5); Carbon Dioxide 25 mmol/L (22-29); Chloride 101 mmol/L (98-107); Creatine Phosphokinase 80 U/L (39-308); Globulin 3.2 g/dL (1.3-4.6); Glucose 98 mg/dL (65-115); Osmolality Calculated 302 mOsm/kg (285-295); Potassium 5.6 mmol/L (3.5-5.1); Sodium 137 mmol/L (136-145); Total Bilirubin 0.3 mg/dL (0.15-1.2); Total Protein 6.2 g/dL (6.6-8.7)
[2021-01-31 11:30] LABS: Troponin(5th) Baseline 476 ng/L (0-15)
--- NOTE | 2021-01-31 11:40 | PC.PHAR ---
PT IS FROM [facility]-SPOKE TO RHONA NURSE AT [facility] STATES METOPROLOL TARTRATE IS ON HOLD TO BE REVALUATED ON 02/09/21 PER RHONA @ [facility]-RHONA STATES THE PLAVIX AND ASPIRIN IS ON HOLD ALSO-NOTES ARE MADE IN THE PHARMACY COMMENTS
[2021-01-31 11:46] LABS: Add Urine Microscopic? YES; Bilirubin Urine Neg (Negative); Blood Urine 3+ (Negative); Glucose Urine UA Norm (Normal); Ketones Urine Negative (Negative); Leukocyte Esterase Urine 2+ (Negative); Nitrate Urine Negative (Negative); Protein Urine 1+ (Negative); Specific Gravity, Urine 1.005 (1.005-1.030); Urine Appearance Cloudy (CLEAR); Urine Color Yellow (Yellow); Urobilinogen Urine Norm (Negative); pH Urine 6.5 (5-7)
[2021-01-31 11:47] LABS: Add Urine Culture? Yes; Bacteria Urine 1+ /hpf; RBC Urine >100 /hpf (0-2); Squamous Epithelial Cell Urine 0-4 /hpf (0-5)
--- NOTE | 2021-01-31 12:11 | CT_ITS ---
WS: [id number] CT ABDOMEN PELVIS TECHNIQUE: Noncontrast CT of the abdomen and pelvis with coronal and sagittal reformatted images. CLINICAL INFORMATION: hematuria COMPARISON: CT January 13, 2021 DLP: 1705.[address] scans at [facility] use at least one of these dose optimization techniques: automated e xposure control; mA and/or kV adjustment per patient size (includes targeted exams where dose is matc hed to clinical indication); or iterative reconstruction. FINDINGS: Tiny bilateral pleural effusions. Compressive atelectasis in the lung bases. Mild hepatomegaly. Nonco ntrast spleen is normal. Small esophageal hiatal hernia. Fatty atrophy of the pancreas. Cholelithiasi s with prominent gallstone measuring 19 mm. Vascular calcification. Adrenal glands are normal. Bilate ral renal cortical atrophy. No hydronephrosis in either kidney. No renal or ureteral calculi. Diffuse bladder wall thickening can be seen with chronic cystitis or bladder outlet obstruction. Andrés mmend correlation for UTI. Enlarged prostate measuring 4.8 cm. Rectosigmoid constipation with rectal distention. Diffuse pancolonic constipation. Tiny fat-containing umbilical hernia. Mild diffuse body wall anasarca. Stable pseudoaneurysm right gr oin. Correlation with history of vascular access. This measures 3.4 x 3.5 cm unchanged from previous. CT/CT kidney stone [id number] IMPRESSION: 1. No obstructing renal or ureteral ureteral calculi. 2. Cholelithiasis. 3. Tiny bilateral pleural effusions with compressive atelectasis in the lung b ases. 4. Diffuse bladder wall thickening can be seen with cystitis or bladder outlet obstruction progressed from January 13, 2021.Recommend correlation for UTI. 5. Prominent prostate measuring 4.8 cm. 6. Rectosigmoid constipation. Diffuse pancolonic constipation. 7. Unchanged pseudoaneurysm right groin.
[2021-01-31] MEDS: morphine 4 mg/mL SDV 1 mL 2 MG IVP (12:15)
[2021-01-31] MEDS: cefTRIAXone 1,000 MG in sodium chloride 0.9% (plus) 50 ML 100 MG IV (12:18)
--- NOTE | 2021-01-31 12:20 | ECG_ITS ---
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: : 1950 Requested By: Chad Foster Order Number: [id number] Reading MD: KIRK HRERON Measurements Intervals [place] Rate: 95 P: 258 [place]: 115 QRS: 1 QRSD: 110 T: 54 QT: 351 QTc: 443 Interpretive Statements SINUS RHYTHM WITH OCCASIONAL ECTOPIC PREMATURE COMPLEXES INFERIOR MYOCARDIAL INFARCTION , PROBABLY OLD [40+ ms Q WAVE AND/OR ST/T ABNORMALITY IN II/aVF] Compared to ECG 01/31/2021 10:35:12 Myocardial infarct finding now present Intraventricular conduction delay no longer present T-wave abnormality no longer present Electronically Signed On 02-01-2021 22:58:58 CDT by KIRK HERRON [id number]
--- NOTE | 2021-01-31 13:19 | P.PN_ITS ---
Subjective Subjective: Interval history: Mr Fernandez is well known to our service. He now presents from SNF with confusion and is found to have a UTI. Recently treated for LE cellulitis. He has been on dialysis now for some time. He cannot recall his last dialysis session but believes it was last week. Currently he denies any additional uremic symptoms. No extremity edema, shortness of breath or other hypervolemic symptoms. He currently has a right tunneled CVC. Vitals/I&O/Wt Last Vital Signs Temp 97.5 F L 01/31/21 10:26 Pulse 85 01/31/21 11:45 Resp 17 01/31/21 12:15 BP 146/64 01/31/21 10:26 Pulse Ox 96 01/31/21 11:45 01/30/21 01/31/21 01/31/21 22:59 06:59 14:59 Intake Total 50 / 50 Balance 50 / 50 Weight last 48 hrs Weight 95.254 kg Physical Exam Narrative: EXAM NARRATIVE: Constitutional: Awake, comfortable HEENT: Wet mucosa, no jvp, non icteric Lungs: Bilaterally clear without discernible wheeze, rales in all lung zones CVS: S1 S2, no murmurs Abdo: Soft, BS ok Ext 4: Minimal edema, peripheral perfusion with no cyanosis Neurological: Grossly non-focal Data : 01/31/21 10:45 01/31/21 10:45 Micro: Microbiology 01/31/21 10:45 Blood Culture - Preliminary Blood SPECIMEN COLLECTED 01/31/21 10:45 Blood Culture - Preliminary Blood SPECIMEN COLLECTED A&P Additional A&P Information 1. ESRD Plan for dialysis today 2K, UF 2-3L Continue MWF schedule Dose medication for GFR less than 15 on dialysis 2. UTI Management per hospitalist team including management of antibiotics. Cultures pending. 3. Hemodynamics Currently stable, will monitor closely during dialysis 4. Chronic ESRD issues To manage as an outpatient as part of standard monthly management. 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
[2021-01-31 13:45] LABS: Troponin 5 2HR 436.6 ng/L (0-15)
--- NOTE | 2021-01-31 14:38 | PM.HP ---
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 coli UTIs and pyelonephritis, history of VRE and ESBL skin infections, history of sepsis and gram-positive bacteremia staph aureus secondary to dialysis catheter which was replaced, finished 2 weeks of vancomycin, JOSEPH negative for endocarditis, recent history of anemia and moderate right groin pseudoaneurysm aspirin and Plavix on hold, recent history of CSI arthrectomy of left SFA and peroneal for severe PAD below the knee followed by balloon angioplasty, who presents to [facility] from [facility] due to multiple concerns, increased confusion, concerns for worsening left lower extremity diabetic ulcers of black eschar, worsening despite multiple rounds of antibiotics, and bloody urine. Currently patient is alert to person, not to place, not to time, he does follow commands, however he has no complaints, he does not know he is in the hospital, he has no concerns. Most the history was obtained by discussing with nurses at [facility], they advised me that patient is normally alert oriented x3, normally carries on conversations, is wheelchair-bound, can feed himself, is two-person assist, they tell me that he has been having ongoing left lower extremity foot infections, on multiple locations, on the lateral aspect of the left foot, on the heel, and also at the right BKA stump site. There is also concerns for increased drainage, worsening of infectious signs, has been on multiple rounds of antibiotics, last being Bactrim. Nurses tell me that this morning he was increasingly confused, not his normal self, was also noted to have blood is in his urine, so was sent to the emergency room for further evaluation. In the emergency room he is found to have a UTI, CT scan of the abdomen pelvis did not show any obstructive uropathy or nephrolithiasis, hospice team was called for admission. Review of Systems General: Reports: ROS unobtainable due to mental status Const: Denies: fever(s) Resp: Denies: dyspnea GI: Denies: abdominal pain : Denies: flank pain Medications/Allergies Home Medications Medication Instructions Recorded Confirmed Last Taken Type [place] Plus Cold+Flu 1 packet PO Q4H PRN 07/23/20 01/31/21 01/27/21 History ascorbic acid (vitamin C) [Vitamin 500 mg PO DAILY@0800 07/23/20 01/31/21 01/31/21 History C] levetiracetam [Keppra] 500 mg PO BID@08,199907/23/20 01/31/21 01/31/21 History pantoprazole 40 mg PO BID@07/23/20 01/31/21 01/31/21 History bisacodyl 10 mg LA DAILY PRN 08/23/20 01/31/21 01/27/21 History amlodipine 5 mg PO DAILY@79909/05/20 01/31/21 01/31/21 History isosorbide mononitrate 30 mg PO DAILY@79909/05/20 01/31/21 01/31/21 History sevelamer carbonate 800 mg PO TID@,,09/05/20 01/31/21 01/31/21 History Entresto 1 tab PO BID@12/24/20 01/31/21 01/31/21 History Pro Stat Nutritional 15 ml PO BID@,12/24/20 01/31/21 01/27/21 History acetaminophen 650 mg PO Q4H PRN MDD 3,000 mg 12/24/20 01/31/21 01/27/21 History diclofenac sodium 2 - 4 g TOPICAL BID@12/24/20 01/31/21 01/31/21 History atorvastatin 40 mg PO DAILY@1999 30 Days #30 tab 01/03/21 01/31/21 01/30/21 Rx Cough Drops See Rx Instructions .ROUTE .COMPLEX 01/13/21 01/31/21 01/27/21 History Enema Disposable 118 ml LA DAILY PRN 01/13/21 01/31/21 01/27/21 History Santyl 1 applic TOPICAL DAILY 01/13/21 01/31/21 01/27/21 History magnesium hydroxide [Milk of 30 ml PO DAILY PRN 01/13/21 01/31/21 01/27/21 History Magnesia] morphine concentrate See Rx Instructions .ROUTE .COMPLEX 01/13/21 01/31/21 01/31/21 08:45 History sennosides-docusate sodium 1 tab PO BID PRN 01/13/21 01/31/21 01/27/21 History [Senna-S] metoprolol tartrate 25 mg tablet See Rx Instructions .ROUTE .COMPLEX 01/27/21 01/31/21 01/27/21 History aspirin 81 mg PO DAILY@0800 01/31/21 01/31/21 Unknown History clopidogrel 75 mg PO DAILY@0800 01/31/21 01/31/21 Unknown History Allergies Allergy/AdvReac Type Severity Reaction Status Date / Time No Known Allergies Allergy Verified 01/27/21 10:00 PFSH Acute PFSH: Medical History Acute encephalopathy Acute on chronic anemia Altered mental status Anemia Anemia Anemia in CKD (chronic kidney disease) Atherosclerosis of coronary artery of elem heart without angina pectoris Atherosclerotic heart disease of elem coronary artery without angina pectoris Bradycardia CAD (coronary artery disease) Cellulitis of left lower extremity CHF (congestive heart failure) Chronic ulcer of ankle CKD (chronic kidney disease), stage V started hemodialysis 07/29/2020 Combined systolic and diastolic congestive heart failure Echo 08/04 demonstrates EF 35 to 40% COVID-19 (~01/2020) Decubitus ulcer Diabetes Diabetes mellitus Diabetic peripheral neuropathy associated with type 2 diabetes mellitus Elevated troponin ESRD (end stage renal disease) ESRD (end stage renal disease) on dialysis Gangrene of left foot History of ESBL E. 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 hx of multilevel DJD, s/p spinal stimulator Peripheral arterial disease Peripheral neuropathy Polyneuropathy in other diseases classified elsewhere Pre-operative cardiovascular examination Seizure disorder Spinal cord stimulator status Spinal stenosis Type 2 diabetes mellitus Surgical History S/P CABG x 3 S/P dialysis catheter insertion (07/29/20) Giurgius S/P insertion of spinal cord stimulator Status post below knee amputation of right lower extremity Family History Mother Cancer Brother Lung disease Other Hyperlipidemia Hypertension Denies family history of Diabetes CAD (coronary artery disease) Clotting disorder Dementia Psychiatric illness Chronic kidney disease (CKD) Suicide Anesthesia complication Bleeding disorder Stroke Social History Alcohol intake: former Lives independently: No (Brother is his power of assistant district attorney, recently has had to be involved in more decisions) Housing: Skilled Nursing Vitals/I&O/Wt Last Vital Signs Temp 97.5 F L 01/31/21 10:26 Pulse 79 01/31/21 13:46 Resp 17 01/31/21 12:15 BP 146/64 01/31/21 10:26 Pulse Ox 96 01/31/21 13:46 01/30/21 01/31/21 01/31/21 22:59 06:59 14:59 Intake Total 150 / 150 Balance 150 / 150 Weight last 48 hrs Weight 95.254 kg Physical Exam Const: COMMON NORMALS: no acute distress GENERAL APPEARANCE: cooperative and comfortable ORIENTATION/CONSCIOUSNESS: Yes awake, Yes oriented to person and Yes confused; not oriented to place and not oriented to time Eye: COMMON NORMALS: Equal, round and reactive pupils present and EOMs intact bilaterally GENERAL EYE: appearance normal, both eyes and all related structures PUPIL: Yes Equal, round and reactive pupils present Neck/C-Spine: COMMON NORMALS: full ROM and no lymphadenopathy THYROID: Thyroid normal Lymph: LYMPHATIC: no lymphadenopathy noted Resp: COMMON NORMALS: normal respiratory effort, No retractions, No use of accessory muscles and clear to auscultation bilaterally AUSCULTATION: clear to auscultation bilaterally Cardio: COMMON NORMALS: regular rate, regular rhythm, S1 normal heart sound present, S2 normal heart sound present, No gallops present (Cardio), No clicks present (Cardio) and No murmurs present (Cardio) RATE: regular rate RHYTHM: regular rhythm HEART SOUNDS: S1 normal heart sound present and S2 normal heart sound present GI: COMMON NORMALS: Normal to inspection, nondistended, normoactive bowel sounds present, Soft to palpation and non-tender Extremity: COMMON NORMALS: no pedal edema Neuro: COMMON NORMALS: moves all extremities Skin: NARRATIVE SKIN EXAM: Right BKA stump site, black eschar, with opening of surgical site, with purulent drainage, measuring 2 x 2 cm with surrounding erythema Left lower extremity, heel, black eschar, measuring 2 x 2 cm round, with surrounding erythema, no active drainage Left lower extremity, lateral aspect, fifth digit, black eschar, with active drainage, opening seepage, with surrounding erythema, active drainage, measuring 3 cm long, 2 cm across, linear Data : 01/31/21 10:45 01/31/21 10:45 Micro: Microbiology 01/31/21 10:45 Blood Culture - Preliminary Blood SPECIMEN COLLECTED 01/31/21 10:45 Blood Culture - Preliminary Blood SPECIMEN COLLECTED A&P Assessment and plan (1) Acute encephalopathy: -Multiple sources of infection include cellulitis, acute on chronic wound with black eschar with active drainage on right BKA stump site, and left lower extremity heel, and lateral aspect along fifth digit -Also with cystitis -Has a history of ESBL, VRE Plan: -Admit to general medical floors -We will do a left lower extremity CT, with ultrasound of BKA stump site -Blood cultures, urine cultures, wound cultures -ESR, CRP, pro-Jatinder -Broad-spectrum antibiotic therapy vancomycin, Primaxin -General surgery consulted for consideration of debridement -Monitor mentation, aspiration precautions, seizure precautions -Patient is DNR -SCDs for DVT prophylaxis, Lovenox contraindicated given pseudoaneurysm below -Dysphagia diet End-stage renal disease, nephrology consulted, plan on dialysis today Peripheral arterial disease, no blood flow below the left knee, underwent CSI arthrectomy of mid to distal left SFA and peroneal artery, followed by balloon angioplasty of peroneal artery, anterior tibial artery, mid to distal left SFA Pseudoaneurysm after procedure as above, requiring 1 unit PRBC, aspirin Plavix on hold, will do arterial ultrasound groin CAD, CABG in 2012, aspirin and Plavix on hold due to to pseudoaneurysm Type 2 diabetes mellitus, diet controlled, low-dose sliding scale Anemia, hemoglobin 9.2, continue to monitor History of seizures, continue Keppra CHF, continue to monitor not in acute exacerbation Status: Acute (2) Cystitis: Status: Acute (3) Peripheral arterial disease: Status: Acute (4) Anemia: Status: Acute (5) ESRD (end stage renal disease): Status: Acute (6) HTN (hypertension): Status: Acute (7) Pseudoaneurysm following procedure: Status: Acute (8) CHF (congestive heart failure): Status: Acute Qualifiers: Heart failure chronicity: chronic Heart failure type: combined systolic and diastolic Qualified Code(s): I50.42 - Chronic combined systolic (congestive) and diastolic (congestive) heart failure (9) Cellulitis: Status: Acute (10) Chronic wound of extremity: Status: Acute Attestations Medical Necessity Statement*: Patient requires hospitalization, acute encephalopathy, secondary cellulitis, UTI, inpatient, greater than 2 midnights Coding Level of Care 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
[2021-01-31 15:07] LABS: C Reactive Protein 88.9 mg/L (0.0-4.9)
[2021-01-31 15:12] LABS: Procalcitonin 0.52 ng/mL (0-0.5)
[2021-01-31 18:43] LABS: Troponin 5 6HR 459.5 ng/L (0-15); Troponin 5 6HR Delta -16.5 ng/L (0-12)
--- NOTE | 2021-01-31 19:28 | CTR_ITS ---
PROCEDURE INFORMATION: Exam: CT Left Lower Extremity With Contrast, Foot Exam date and time: 01/31/2021 7:28 PM Age: 70 years old Clinical indication: Cellulitis; Foot; Left; Additional info: Recurrent eschar and celulltiitis, osteo vs abscess TECHNIQUE: Imaging protocol: CT of the Left lower extremity with intravenous contrast was performed. Exam focused on the foot. Radiation optimization: All CT scans at this facility use at least one of these dose optimization techniques: automated exposure control; mA and/or kV adjustment per patient size (includes targeted exams where dose is matched to clinical indication); or iterative reconstruction. Contrast material: VISI 320; Contrast volume: 95 ml; Contrast route: INTRAVENOUS (IV); COMPARISON: CT foot LT wo con* [id number] 12/28/2020 8:38 AM RADIATION DOSE METRICS: Total DLP (mGy-cm): 234.56 FINDINGS: Bones/joints: Interval appearance of lytic bone destruction along the lateral cortex of the lateral malleolus consistent with osteomyelitis. Interval appearance of lytic bone destruction in the head and neck of the 5th metatarsus and cortical destruction in the base of the little toe proximal phalanx consistent with osteomyelitis. Soft tissues: Interval appearance of soft tissue thickening over the lateral malleolus consistent with possible soft tissue callus or phlegmon. Interval appearance of mild soft tissue ulceration superior to the level of the osteomyelitis/phlegmon in the region of the distal fibular shaft or proximal lateral malleolus. Interval appearance of soft tissue emphysema throughout the left little toe from tip of the toe through the head and neck of the metatarsus area consistent with necrotizing fasciitis. Continued soft tissue swelling in the forefoot consistent with cellulitis. Vasculature: Severe calcified peripheral vascular disease. CT/CT foot LT w con [id number] IMPRESSION: 1. Interval appearance of lytic bone destruction along the lateral cortex of the lateral malleolus consistent with osteomyelitis. 2. Interval appearance of soft tissue thickening over the lateral malleolus consistent with possible soft tissue callus or phlegmon. 3. Interval appearance of mild soft tissue ulceration superior to the level of the osteomyelitis/phlegmon in the region of the distal fibular shaft or proximal lateral malleolus. 4. Interval appearance of lytic bone destruction in the head and neck of the 5th metatarsus and cortical destruction in the base of the little toe proximal phalanx consistent with osteomyelitis. 5. Interval appearance of soft tissue emphysema throughout the left little toe from tip of the toe through the head and neck of the metatarsus area consistent with necrotizing fasciitis. 6. Continued soft tissue swelling in the forefoot consistent with cellulitis. Radiation Dose CTDIVOL = (mGy): DLP = 234.56 (mGy-cm)
[2021-01-31] MEDS: heparin, porcine 1,000 unit/mL INJ 10 mL 10000 UNIT HE (19:40)
[2021-01-31 19:52] LABS: Glucose Point of Care 103 mg/dL (70-110)
--- NOTE | 2021-01-31 20:45 | PC.HD ---
Cath dressing was last changed 5 days ago (01/26) as he did not come to dialysis on Sunday. On removing dressing, hard brown crusting noted to insertion site with some redness to site, no heat or pain. Site cleaned thoroughly with CHG before applying clean dressing.
[2021-01-31] MEDS: vancomycin 1,000 MG in sodium chloride 0.9% 250 ML 250 MG IV (21:10)
[2021-01-31] MEDS: levETIRAcetam 500 mg Tablet PO (21:23)
[2021-01-31] MEDS: sevelamer 800 mg Tablet PO (21:23)
[2021-01-31] MEDS: atorvastatin 40 mg Tablet PO (21:24)
[2021-01-31] MEDS: pantoprazole DR 40 mg Tablet PO (21:24)
[2021-01-31] MEDS: iodixanol 320 mg/mL 100mL Btl IV (22:23)
[2021-02-01] VITALS: BP 120/60; PULSE 79; RESP 18; TEMP 36.6; O2SAT 92
[2021-02-01 04:00] VITALS: BP 122/63; PULSE 76; RESP 18; TEMP 36.6; O2SAT 91
[2021-02-01 06:22] LABS: Basophils # 0.1 10^3/uL (0.0-0.1); Basophils % 0.7 %; Eosinophils # 0.2 10^3/uL (0.0-0.8); Eosinophils % 2.9 %; Hematocrit 27.6 % (42.0-52.0); Hemoglobin 8.9 g/dL (11.7-16.6); Lymphocytes # 0.7 10^3/uL (0.8-4.8); Lymphocytes % 9.3 %; Mean Corpuscular HGB Conc 32.2 g/dL (30.0-36.0); Mean Corpuscular Hemoglobin 31.8 pg (28.0-34.0); Mean Corpuscular Volume 98.6 fl (80-94); Mean Platelet Volume 8.8 fL (7.4-10.4); Monocytes # 0.6 10^3/uL (0.2-0.9); Monocytes % 8.1 %; Neutrophils # 6.02 10^3/uL (1.8-7.7); Neutrophils % 78.6 %; Nucleated Red Blood Cells % 0 %; Platelet Count 191 10^3/cmm (130-400); Red Cell Distribution Width 13.2 % (12.1-15.1); White Blood Count 7.7 10^3/uL (4.0-10.0)
[2021-02-01 06:28] LABS: Alanine Aminotransferase 6 U/L (0-41); Albumin Level 3.2 g/dL (3.5-5.2); Alkaline Phosphatase 61 IU/L (40-130); Anion Gap 17.4 (5-19); Aspartate Amino Transferase 7 U/L (0-40); Blood Urea Nitrogen 30 mg/dL (8-23); Carbon Dioxide 26 mmol/L (22-29); Chloride 100 mmol/L (98-107); Globulin 3.2 g/dL (1.3-4.6); Glucose 81 mg/dL (65-115); Magnesium 1.7 mg/dL (1.7-2.3); Osmolality Calculated 293 mOsm/kg (285-295); Phosphorus 3.2 mg/dL (2.5-4.5); Potassium 4.4 mmol/L (3.5-5.1); Sodium 139 mmol/L (136-145); Total Bilirubin 0.3 mg/dL (0.15-1.2); Total Protein 6.4 g/dL (6.6-8.7)
--- NOTE | 2021-02-01 06:28 | P.CONIM_ITS ---
Providers/Reason For Consult Consulting Physician/Specialty*: Hugo Davenport MD Reason for Consult*: Left foot ulcers Attending Physician: Hira Ruiz MD Primary Care Provider: Matias Young MD History of Present Illness History of Present Illness Chief complaint Foot problem HPI Mr. Moy Fernandez is a pleasant 70 year old male well-known to me from previous clinical encounters as I did perform right below the knee amputation for complicated diabetic foot infection. Patient is a jail resident,patient does have other multiple medical comorbidities in the form of ischemic cardiomyopathy, non-STEMI, congestive heart failure, encephalopathy, hypertension, coronary artery disease, type 2 diabetes mellitus, seizure disorder, peripheral arterial disease, polyneuropathy, and pyelonephritis of left kidney. Well known with chronic left foot eschars and has been a hospice patient before and currently he is not,admitted to the hospitalist service and was found to have UTI and further work up was done to his ongoing chronic ulcers of the left foot,a CT scan of the foot that showed: 1. Interval appearance of lytic bone destruction along the lateral cortex of the lateral malleolus consistent with osteomyelitis. 2. Interval appearance of soft tissue thickening over the lateral malleolus consistent with possible soft tissue callus or phlegmon. 3. Interval appearance of mild soft tissue ulceration superior to the level of the osteomyelitis/phlegmon in the region of the distal fibular shaft or proximal lateral malleolus. 4. Interval appearance of lytic bone destruction in the head and neck of the 5th metatarsus and cortical destruction in the base of the little toe proximal phalanx consistent with osteomyelitis. 5. Interval appearance of soft tissue emphysema throughout the left little toe from tip of the toe through the head and neck of the metatarsus area consistent with necrotizing fasciitis. 6. Continued soft tissue swelling in the forefoot consistent with cellulitis. General surgery was consulted for further evaluation and care Review of Systems General: Reports: 10 or more systems reviewed and unremarkable except in HPI and below Meds/Allergies Home Medications and Allergies Home Medications Medication Instructions Recorded Confirmed Last Taken Type [place] Plus Cold+Flu 1 packet PO Q4H PRN 07/23/20 01/31/21 01/27/21 History ascorbic acid (vitamin C) [Vitamin 500 mg PO DAILY@0800 07/23/20 01/31/21 01/31/21 History C] levetiracetam [Keppra] 500 mg PO BID@08,199907/23/20 01/31/21 01/31/21 History pantoprazole 40 mg PO BID@,07/23/20 01/31/21 01/31/21 History bisacodyl 10 mg VT DAILY PRN 08/23/20 01/31/21 01/27/21 History amlodipine 5 mg PO DAILY@79909/05/20 01/31/21 01/31/21 History isosorbide mononitrate 30 mg PO DAILY@79909/05/20 01/31/21 01/31/21 History sevelamer carbonate 800 mg PO TID@,,09/05/20 01/31/21 01/31/21 History Entresto 1 tab PO BID@,12/24/20 01/31/21 01/31/21 History Pro Stat Nutritional 15 ml PO BID@,12/24/20 01/31/21 01/27/21 History acetaminophen 650 mg PO Q4H PRN MDD 3,000 mg 12/24/20 01/31/21 01/27/21 History diclofenac sodium 2 - 4 g TOPICAL BID@,12/24/20 01/31/21 01/31/21 History atorvastatin 40 mg PO DAILY@1999 30 Days #30 tab 01/03/21 01/31/21 01/30/21 Rx Cough Drops See Rx Instructions .ROUTE .COMPLEX 01/13/21 01/31/21 01/27/21 History Enema Disposable 118 ml VT DAILY PRN 01/13/21 01/31/21 01/27/21 History Santyl 1 applic TOPICAL DAILY 01/13/21 01/31/21 01/27/21 History magnesium hydroxide [Milk of 30 ml PO DAILY PRN 01/13/21 01/31/21 01/27/21 History Magnesia] morphine concentrate See Rx Instructions .ROUTE .COMPLEX 01/13/21 01/31/21 01/31/21 08:45 History sennosides-docusate sodium 1 tab PO BID PRN 01/13/21 01/31/21 01/27/21 History [Senna-S] metoprolol tartrate 25 mg tablet See Rx Instructions .ROUTE .COMPLEX 01/27/21 01/31/21 01/27/21 History aspirin 81 mg PO DAILY@0800 01/31/21 01/31/21 Unknown History clopidogrel 75 mg PO DAILY@0800 01/31/21 01/31/21 Unknown History Allergies Allergy/AdvReac Type Severity Reaction Status Date / Time No Known Allergies Allergy Verified 02/02/21 12:43 Current Medications Current Medications Generic Name Dose Route Start Last Admin Trade Name Jaleesa PRN Reason Stop Dose Admin Atorvastatin Calcium 40 mg 01/31/21 20:00 01/31/21 21:24 Atorvastatin 40 Mg Tablet PO 40 mg DAILY@1999 YANELI Administration Imipenem/Cilastatin Sodium 250 100 mls @ 200 mls/hr 02/01/21 01:00 02/01/21 02:09 mg/ Sodium Chloride IV Infused Q12H YANELI Infusion Vancomycin HCl 1,000 mg/ 250 mls @ 250 mls/hr 01/31/21 21:00 01/31/21 21:50 Sodium Chloride IV 0 mls/hr MoWeFr YANELI Infusion Levetiracetam 500 mg 01/31/21 20:00 01/31/21 21:23 Levetiracetam 500 Mg Tablet PO 500 mg BID@0800,1999 YANELI Administration Pantoprazole Sodium 40 mg 01/31/21 20:00 01/31/21 21:[address] 40 Mg Tablet PO 40 mg BID@08,20 YANELI Administration Sevelamer Carbonate 800 mg 01/31/21 20:00 01/31/21 21:23 Sevelamer 800 Mg Tablet PO 800 mg TID@08,14,20 YANELI Administration PFSH Acute PFSH: Medical History Acute encephalopathy Acute on chronic anemia Altered mental status Anemia Anemia Anemia in CKD (chronic kidney disease) Atherosclerosis of coronary artery of [place] heart without angina pectoris Atherosclerotic heart disease of [place] coronary artery without angina pectoris Bradycardia CAD (coronary artery disease) Cellulitis of left lower extremity CHF (congestive heart failure) Chronic ulcer of ankle CKD (chronic kidney disease), stage V started hemodialysis 07/29/2020 Combined systolic and diastolic congestive heart failure Echo 08/04 demonstrates EF 35 to 40% COVID-19 (~01/2020) Decubitus ulcer Diabetes Diabetes mellitus Diabetic peripheral neuropathy associated with type 2 diabetes mellitus Elevated troponin ESRD (end stage renal disease) ESRD (end stage renal disease) on dialysis Gangrene of left foot History of ESBL E. 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 hx of multilevel DJD, s/p spinal stimulator Peripheral arterial disease Peripheral neuropathy Polyneuropathy in other diseases classified elsewhere Pre-operative cardiovascular examination Seizure disorder Spinal cord stimulator status Spinal stenosis Type 2 diabetes mellitus Surgical History S/P CABG x 3 S/P dialysis catheter insertion (07/29/20) Issac S/P insertion of spinal cord stimulator Status post below knee amputation of right lower extremity Family History Mother Cancer Brother Lung disease Other Hyperlipidemia Hypertension Denies family history of Diabetes CAD (coronary artery disease) Clotting disorder Dementia Psychiatric illness Chronic kidney disease (CKD) Suicide Anesthesia complication Bleeding disorder Stroke Social History Alcohol intake: former Lives independently: No (Brother is his power of gang investigator, recently has had to be involved in more decisions) Housing: Prison Vitals/I&O/Wt Last Vital Signs Temp 97.9 F 02/01/21 00:00 Pulse 79 02/01/21 00:00 Resp 18 02/01/21 00:00 BP 120/60 02/01/21 00:00 Pulse Ox 92 02/01/21 00:00 01/31/21 01/31/21 02/01/21 14:59 22:59 06:59 Intake Total 150 / 150 466.667 / 616.667 100 / 716.667 Output Total 3322 / 3322 Balance 150 / 150 -2855.333 / -2705.333 100 / -2605.333 Weight last 48 hrs Weight 197 lb Weight 197 lb 8.547 oz Weight 210 lb Physical Exam Narrative: EXAM NARRATIVE: Patient is conscious alert mildly confused BMI 32 Head and neck examination PERRLA no masses no cervical lymphadenopathy no jaundice Abdomen nontender nondistended soft no organomegaly guarding or rigidity/no signs of peritonitis Right below the knee amputation stump had a central eschar 1.5 x 1 cm stable Left foot shows multiple areas of necrosis associated with eschars located at the lateral aspect of the lower third of the leg, left heel and the left fifth toe which shows gapping with the wound with necrotic tissues. Data Micro: Micro: Microbiology 01/31/21 10:45 Blood Culture - Pr eliminary Blood SPECIMEN [facility] 01/31/21 10:45 Blood Culture - Pr eliminary Blood SPECIMEN [facility] A&P Assessment and plan (1) Chronic wound of extremity: After history taking physical examination and reviewing the chart and images, with my personal interpretation of the CT scan of the left foot. I do not believe at this point that the patient has necrotizing soft tissue infection emphysematous changes are likely related to the open wound of the left fifth toe. Patient would benefit preliminary from debridement of those wounds yet left below the knee amputation would be appropriate given the underlying osteomyelitic changes, yet the patient needs to be medically optimized with special focus on nutrition. We will continue coordinating care with the hospitalist service and reach out to the family for further directions. Meanwhile Betadine paint twice daily for all wounds. Talked with Patient's brother today and agreed on the surgical debridment in the OR and further optimization down the road for below the knee amputation.Hakan Fernandez planning to move to [place] with his brother as further medical care. Informed consent per chart. Status: Acute Consult Attestations Medical Necessity Statement: Per admitting service Time Spent in Patient Care: (>than 50% of time spent in counselling and/or direct pt care on unit) . Coding Level of Care Code Acute Brush Clearer Surveying for Brandy Fwd Diagnoses Chronic wound of extremity
[2021-02-01 07:07] LABS: Glucose Point of Care 91 mg/dL (70-110)
[2021-02-01 07:19] VITALS: BP 144/72; PULSE 75; RESP 18; TEMP 36.9; O2SAT 96
--- NOTE | 2021-02-01 07:47 | PC.NURSE ---
painted wounds with Betadine and left MATHEW as instructed by Dr Davenport
--- NOTE | 2021-02-01 09:20 | PM.PN ---
Subjective Subjective: Interval history: A little sleepy today but otherwise no new issues. No uremic Sx. No edema and no other hypervolemic Sx. Denies AMS. Denies Sx of UTI Vitals/I&O/Wt Last Vital Signs Temp 98.5 F 02/01/21 07:19 Pulse 75 02/01/21 07:19 Resp 18 02/01/21 07:19 BP 144/72 02/01/21 07:19 Pulse Ox 96 02/01/21 07:19 01/31/21 02/01/21 02/01/21 22:59 06:59 14:59 Intake Total 466.667 / 616.667 100 / 716.667 83.333 / 83.333 Output Total 3322 / 3322 Balance -2855.333 / -2705.333 100 / -2605.333 83.333 / 83.333 Weight last 48 hrs Weight 89.358 kg Weight 89.6 kg Weight 95.254 kg Physical Exam Narrative: EXAM NARRATIVE: Constitutional: Awake, comfortable HEENT: Wet mucosa, no jvp, non icteric Lungs: Bilaterally clear without discernible wheeze, rales in all lung zones CVS: S1 S2, no murmurs Abdo: Soft, BS ok Ext 4: Minimal edema, peripheral perfusion with no cyanosis Neurological: Grossly non-focal Data : 02/01/21 06:09 02/01/21 05:26 Micro: Microbiology 01/31/21 10:45 Blood Culture - Preliminary Blood SPECIMEN COLLECTED 01/31/21 10:45 Blood Culture - Preliminary Blood SPECIMEN COLLECTED A&P Additional A&P Information 1. ESRD Plan for dialysis tomorrow 2K, UF 2-3L Continue MWF schedule Dose medication for GFR less than 15 on dialysis 2. UTI Management per hospitalist team including management of antibiotics. Cultures pending, so far NGTD 3. Hemodynamics Currently stable, will monitor closely during dialysis 4. Chronic ESRD issues To manage as an outpatient as part of standard monthly management. Continue home medication Thank for consultation, as always it is a pleasure to follow these cases with you DC per hospitalist team, ok with me Dennis Carreon MD Nephrology [phone] Patient seen and examined via telemedicine, with the assistance of the bedside RN > 25 min spent in evaluation and mgmt of patient Attestations Medical Necessity Statement*: Eval for eSRD Coding Level of Care Code Acute Supervisor Pleating for Brandy Sanchez
--- NOTE | 2021-02-01 10:45 | PC.SLP ---
Patient may possibly have surgery. Nursing requested patient remain NPO due to possible surgery. Will continue to follow.
[2021-02-01 11:45] LABS: Erythrocyte Sedimentation Rate 31 mm/hr (0-10)
[2021-02-01 11:57] VITALS: BP 165/62; PULSE 88; RESP 17; TEMP 36.9; O2SAT 97
[2021-02-01] MEDS: sevelamer 800 mg Tablet PO ×2 (13:16→20:41)
[2021-02-01 15:06] VITALS: BP 154/77; PULSE 78; RESP 18; TEMP 37.1; O2SAT 95
--- NOTE | 2021-02-01 16:13 | PM.PN ---
Subjective Subjective: Interval history: He hadThis morning patient was seen, he is alert to person, to place, not to time, he does follow some commands, but his responses are delayed, and becomes confused, he asks me if he is getting adaptation, I discussed options are available to him, but he tells me that he have to do what she have to do, overnight he remains afebrile, normotensive, no episodes of agitation I discussed the case with patient's brother, patient's brother wants to take Moy to [place], he set up the house for his brother, he is also set up dialysis for his brother, he just does not know how to bring his brother over to [place]. I discussed options are available to Moy including debridement of his wounds, likely IV antibiotic therapy, followed by likely below-knee amputation. Versus pursuing below-knee amputation during this hospitalization, Moy brother would like us to consider doing below-knee amputation and during this hospitalization, as he tells me that his brother has been fighting these chronic wounds for the last few months, in the correction according to his brother has not been addressing them appropriately. Advised brother that I will have Dr. Davenport reach out to him to discuss surgical options. For now I will continue him on antibiotic on antibiotics for his UTI, left foot cellulitis/osteomyelitis/deep tissue infection Vitals/I&O/Wt Last Vital Signs Temp 98.7 F 02/01/21 15:06 Pulse 78 02/01/21 15:06 Resp 18 02/01/21 15:06 BP 154/77 02/01/21 15:06 Pulse Ox 95 02/01/21 15:06 02/01/21 02/01/21 02/01/21 06:59 14:59 22:59 Intake Total 100 / 716.667 423.333 / 423.333 Balance 100 / -2605.333 423.333 / 423.333 Weight last 48 hrs Weight 89.358 kg Weight 89.6 kg Weight 95.254 kg Physical Exam Const: COMMON NORMALS: no acute distress ORIENTATION/CONSCIOUSNESS: Yes awake, Yes oriented to person, Yes oriented to place and Yes confused; not oriented to time Resp: COMMON NORMALS: normal respiratory effort, No retractions, No use of accessory muscles and clear to auscultation bilaterally AUSCULTATION: clear to auscultation bilaterally Cardio: COMMON NORMALS: regular rate, regular rhythm, S1 normal heart sound present, S2 normal heart sound present, No gallops present (Cardio), No clicks present (Cardio) and No murmurs present (Cardio) RATE: regular rate RHYTHM: regular rhythm HEART SOUNDS: S1 normal heart sound present and S2 normal heart sound present GI: COMMON NORMALS: Normal to inspection, nondistended, normoactive bowel sounds present, Soft to palpation and non-tender PALPATION: Yes Soft to palpation Extremity: COMMON NORMALS: no pedal edema Neuro: COMMON NORMALS: moves all extremities SENSORIUM/ORIENTATION: Yes oriented to person, Yes oriented to place and No oriented to time Skin: NARRATIVE SKIN EXAM: Right BKA stump site, black eschar, with opening of surgical site, with purulent drainage, measuring 2 x 2 cm with surrounding erythema Left lower extremity, heel, black eschar, measuring 2 x 2 cm round, with surrounding erythema, no active drainage Left lower extremity, lateral aspect, fifth digit, black eschar, with active drainage, opening seepage, with surrounding erythema, active drainage, measuring 3 cm long, 2 cm across, linear Data : 02/01/21 06:09 02/01/21 05:26 Micro: Microbiology 01/31/21 11:14 Urine Culture - Preliminary Urine,Clean Catch Gram Negative Rods 01/31/21 10:45 Blood Culture - Preliminary Blood NEGATIVE TO DATE 01/31/21 10:45 Blood Culture - Preliminary Blood NEGATIVE TO DATE 02/01/21 04:35 Gram Stain - Final Ankle - Wound A&P Assessment and plan (1) Acute encephalopathy: -Multiple sources of infection include cellulitis, acute on chronic wound with black eschar with active drainage on right BKA stump site, left lower extremity cellulitis and osteomyelitis and deep tissue infection CT scan shows -1. Interval appearance of lytic bone destruction along the lateral cortex of the lateral malleolus consistent with osteomyelitis. 2. Interval appearance of soft tissue thickening over the lateral malleolus consistent with possible soft tissue callus or phlegmon. 3. Interval appearance of mild soft tissue ulceration superior to the level of the osteomyelitis/phlegmon in the region of the distal fibular shaft or proximal lateral malleolus. 4. Interval appearance of lytic bone destruction in the head and neck of the 5th metatarsus and cortical destruction in the base of the little toe proximal phalanx consistent with osteomyelitis. 5. Interval appearance of soft tissue emphysema throughout the left little toe from tip of the toe through the head and neck of the metatarsus area consistent with necrotizing fasciitis. 6. Continued soft tissue swelling in the forefoot consistent with cellulitis. -Also with cystitis -Has a history of ESBL, VRE Plan: -Admit to general medical floors -Blood cultures, urine cultures, wound cultures -Broad-spectrum antibiotic therapy vancomycin, Primaxin -General surgery consulted for consideration of debridement and or below-knee amputation -Monitor mentation, aspiration precautions, seizure precautions -Patient is DNR -SCDs for DVT prophylaxis, Lovenox contraindicated given pseudoaneurysm below -Dysphagia diet End-stage renal disease, nephrology consulted, plan on dialysis today Peripheral arterial disease, no blood flow below the left knee, underwent CSI arthrectomy of mid to distal left SFA and peroneal artery, followed by balloon angioplasty of peroneal artery, anterior tibial artery, mid to distal left SFA Pseudoaneurysm after procedure as above, requiring 1 unit PRBC, aspirin Plavix on hold, ultrasound shows stability CAD, CABG in 2012, aspirin and Plavix on hold due to to pseudoaneurysm Type 2 diabetes mellitus, diet controlled, low-dose sliding scale Anemia, hemoglobin 9.2, continue to monitor History of seizures, continue Keppra CHF, continue to monitor not in acute exacerbation Status: Acute (2) Cystitis: Status: Acute (3) Peripheral arterial disease: Status: Acute (4) Anemia: Status: Acute (5) ESRD (end stage renal disease): Status: Acute (6) HTN (hypertension): Status: Acute (7) Pseudoaneurysm following procedure: Status: Acute (8) CHF (congestive heart failure): Status: Acute Qualifiers: Heart failure chronicity: chronic Heart failure type: combined systolic and diastolic Qualified Code(s): I50.42 - Chronic combined systolic (congestive) and diastolic (congestive) heart failure (9) Cellulitis: Status: Acute (10) Chronic wound of extremity: Status: Acute (11) Osteomyelitis of left lower extremity: Status: Acute Attestations Medical Necessity Statement*: Patient requires hospitalization for left lower extremity deep tissue infection, osteomyelitis, cellulitis, right BKA stump cellulitis, UTI, acute encephalopathy Coding Level of Care Code Acute Student Development Coordinator for [facility] Diagnoses Acute encephalopathy G93.40 Cystitis N30.90 Peripheral arterial disease I73.9 Anemia D64.9 ESRD (end stage renal disease) N18.6 HTN (hypertension) I10 Pseudoaneurysm following procedure T81.718A; I72.9 CHF (congestive heart failure) I50.42 Heart failure chronicity: chronic Heart failure type: combined systolic and diastolic Cellulitis L03.90 Chronic wound of extremity Osteomyelitis of left lower extremity M86.9
--- NOTE | 2021-02-01 19:28 | US_ITS ---
WS: [id number] INDICATION: Evaluate BKA for abscess TECHNIQUE: Ultrasound soft tissue area of concern FINDINGS: Ultrasound soft tissue area of concern right BKA. Diffuse subcutaneous edema with a small a mount of subcutaneous fluid. No evidence of drainable abscess or drainable fluid collection. US/US soft tissue/extremity [id number] IMPRESSION: Diffuse subcutaneous edema although no evidence of drainable absces s or fluid collection.
--- NOTE | 2021-02-01 19:28 | USCV_ITS ---
FernandezMoy cornejo Age: 70 Gender: M : 1950 Exam Date: 02/01/2021 06:17 Ordering Phys: Hira Ruiz MD Technologist: [place] [facility] [place]ication: HX OF PSEUDO Findings PSEUDOANEURYSM STILL PRESENT TODAY. NECK .40CM. Hypoechoic area, measuring 4.2 x 3.6 cm in the right groin . Too and fro blood flow was noted in this area. The neck of the aneurysm measured 0.4 cm Conclusions 1. Pseudoaneurysm measuring 4.2 x 3.6 cm in the right groin 2. The neck of the aneurysm measured at 0.4 cm Compared to the study from 01/13/2021, the aneurysm sac appears to be partially thrombosed. The size of the aneurysm has not changed significantly Dr Angeles Khan MD [facility] (Electronically Signed) Final Date: 01 February 2021 08:19 S
[2021-02-01 20:00] VITALS: BP 144/66; PULSE 70; RESP 17; TEMP 36.6; O2SAT 95
[2021-02-01] MEDS: atorvastatin 40 mg Tablet PO (20:41)
[2021-02-01] MEDS: levETIRAcetam 500 mg Tablet PO (20:41)
[2021-02-01] MEDS: pantoprazole DR 40 mg Tablet PO (20:41)
[2021-02-01 20:50] LABS: Glucose Point of Care 139 mg/dL (70-110)
[2021-02-02] VITALS (16 sets, daily range): BP systolic 121–167; BP diastolic 64–100; PULSE 67–91; RESP 12–18; TEMP 36.2–37.1; O2SAT 92–100
[2021-02-02 06:13] LABS: Basophils # 0.1 10^3/uL (0.0-0.1); Basophils % 0.6 %; Eosinophils # 0.2 10^3/uL (0.0-0.8); Hemoglobin 8.5 g/dL (11.7-16.6); Lymphocytes # 0.7 10^3/uL (0.8-4.8); Lymphocytes % 8.8 %; Mean Corpuscular HGB Conc 31.5 g/dL (30.0-36.0); Mean Corpuscular Volume 98.5 fl (80-94); Monocytes # 0.8 10^3/uL (0.2-0.9); Monocytes % 9.9 %; Neutrophils # 6.23 10^3/uL (1.8-7.7); Neutrophils % 77.1 %; Nucleated Red Blood Cells % 0 %; Platelet Count 205 10^3/cmm (130-400); Red Blood Count 2.74 10^6/uL (4.1-5.3); Red Cell Distribution Width 13.2 % (12.1-15.1); White Blood Count 8.1 10^3/uL (4.0-10.0)
[2021-02-02 06:17] LABS: INR 1.24 (0.8-1.2)
[2021-02-02 06:33] LABS: NT Pro B Type Natriuretic Pept 4574 pg/mL (0-125); Procalcitonin 0.52 ng/mL (0-0.5)
[2021-02-02 06:49] LABS: Alanine Aminotransferase < 5 U/L (0-41); Alkaline Phosphatase 56 IU/L (40-130); Anion Gap 19.1 (5-19); Aspartate Amino Transferase 8 U/L (0-40); Blood Urea Nitrogen 39 mg/dL (8-23); C Reactive Protein 65.6 mg/L (0.0-4.9); Calcium 9.2 mg/dL (8.5-10.5); Carbon Dioxide 24 mmol/L (22-29); Chloride 100 mmol/L (98-107); Globulin 3.3 g/dL (1.3-4.6); Glucose 89 mg/dL (65-115); Magnesium 1.6 mg/dL (1.7-2.3); Osmolality Calculated 297 mOsm/kg (285-295); Phosphorus 3.6 mg/dL (2.5-4.5); Potassium 4.1 mmol/L (3.5-5.1); Sodium 139 mmol/L (136-145); Total Bilirubin 0.3 mg/dL (0.15-1.2); Total Protein 6.3 g/dL (6.6-8.7)
[2021-02-02 07:11] LABS: Glucose Point of Care 102 mg/dL (70-110)
--- NOTE | 2021-02-02 07:22 | PC.NURSE ---
AM NOTE AWAKENS EASILY TO VERBAL STIMULI - COOPERATIVE AT PRESENT TIME - RIGHT CHEST WALL HD CATH - C/D/I - NOTED RIGHT BKA TO HAVE APPROX DIME SIZE ESCHAR COVERED WOUND TO STUMP - NO DRAINAGE AT PRESENT TIME - LEFT FOOT WITH MULTIPLE CHRONIC WOUNDS TO TOES, FOOT AND ANKLE AREA - ALL ESCHAR COVERED - FOUL SMELLING - YELLOW DRAINAGE NOTED - WILL PREPARE PT FOR OR TODAY FOR DEBRIDEMENT - PT AWARE OF NPO STATUS
--- NOTE | 2021-02-02 08:45 | PC.NURSE ---
DIALYSIS PT TO DIALYSIS PER YANI RAMIREZ - NO NEEDS VOICED AT PRESENT TIME
--- NOTE | 2021-02-02 09:09 | P.PN_ITS ---
Subjective Subjective: Interval history: Mr. Fernandez is seen and examined on hemodialysis today. Tolerating the therapy well. Hemodynamics reviewed. No acute issues. Remains somnolent today but not overtly confused. Vitals/I&O/Wt Last Vital Signs Temp 98.2 F 02/02/21 08:00 Pulse 73 02/02/21 08:00 Resp 14 02/02/21 08:00 BP 133/72 02/02/21 08:00 Pulse Ox 92 02/02/21 08:00 02/01/21 02/02/21 02/02/21 22:59 06:59 14:59 Intake Total 240 / 663.333 Balance 240 / 663.333 Weight last 48 hrs Weight 89.358 kg Weight 89.6 kg Weight 95.254 kg Physical Exam Narrative: EXAM NARRATIVE: Constitutional: Awake, comfortable HEENT: Wet mucosa, no jvp, non icteric Lungs: Bilaterally clear without discernible wheeze, rales in all lung zones CVS: S1 S2, no murmurs Abdo: Soft, BS ok Ext 4: Minimal edema, peripheral perfusion with no cyanosis Neurological: Grossly non-focal Data : 02/02/21 05:40 02/02/21 05:40 Micro: Microbiology 01/31/21 11:14 Urine Culture - Preliminary Urine,Clean Catch Gram Negative Rods 01/31/21 10:45 Blood Culture - Preliminary Blood NEGATIVE TO DATE 01/31/21 10:45 Blood Culture - Preliminary Blood NEGATIVE TO DATE 02/01/21 04:35 Gram Stain - Final Ankle - Wound A&P Additional A&P Information 1. ESRD Seen on dialysis today 2K, UF 2-3L Continue MWF schedule Dose medication for GFR less than 15 on dialysis 2. UTI Management per hospitalist team including management of antibiotics. GNRs in the urine and history of recurrent ESBL EColi 3. Hemodynamics Currently stable, will monitor closely during dialysis 4. Chronic ESRD issues To manage as an outpatient as part of standard monthly management. Continue home medication Thank for consultation, as always it is a pleasure to follow these cases with you DC per hospitalist team, ok with me Dennis Carreon MD Nephrology [phone] Patient seen and examined via telemedicine, with the assistance of the bedside RN > 25 min spent in evaluation and mgmt of patient Attestations Medical Necessity Statement*: Eval for ESRD Coding Level of Care Code Acute Balance Wheel Hand Filer for Chg Fwd
[2021-02-02 11:44] LABS: Glucose Point of Care 95 mg/dL (70-110)
--- NOTE | 2021-02-02 12:45 | PM.PN ---
Subjective Subjective: Interval history: Patient overall is about the same Medications: Reviewed: Yes Vitals/I&O/Wt Last Vital Signs Temp 98.2 F 02/02/21 12:00 Pulse 73 02/02/21 12:00 Resp 14 02/02/21 12:00 BP 133/72 02/02/21 12:00 Pulse Ox 92 02/02/21 08:00 02/01/21 02/02/21 02/02/21 22:59 06:59 14:59 Intake Total 240 / 663.333 Balance 240 / 663.333 Weight last 48 hrs Weight 197 lb Weight 197 lb 8.547 oz Physical Exam Narrative: EXAM NARRATIVE: Patient is conscious alert mildly confused BMI 32 Head and neck examination PERRLA no masses no cervical lymphadenopathy no jaundice Abdomen nontender nondistended soft no organomegaly guarding or rigidity/no signs of peritonitis Stable physical exam Data : 02/02/21 05:40 02/02/21 05:40 Micro: Microbiology 01/31/21 11:14 Urine Culture - Final Urine,Clean Catch Escherichia coli esbl 01/31/21 10:45 Blood Culture - Preliminary Blood NEGATIVE TO DATE 01/31/21 10:45 Blood Culture - Preliminary Blood NEGATIVE TO DATE 02/01/21 04:35 Gram Stain - Final Ankle - Wound A&P Assessment and plan (1) Chronic wound of extremity: We will plan to take the patient today for surgical debridement of the left leg ulcers Informed consent per chart. Status: Acute Attestations Medical Necessity Statement*: Per admitting service Time Spent in Patient Care: (>than 50% of time spent in counselling and/or direct pt care on unit). Coding Level of Care Code Acute Staff Design Engineer for [facility] Diagnoses Chronic wound of extremity
--- NOTE | 2021-02-02 13:03 | PC.NURSE ---
OFF FLOOR OFF FLOOR VIA GURNEY, WITH YANI ENCINAS AT [facility], STUDENT NURSE - PRIMAXIN SCANNED AND GIVEN TO RN TO ADMINISTER ONCE DOWN STAIRS 1300 DOSE
[2021-02-02] MEDS: sodium chloride 0.9% 1,000 ML 30 ML IV (13:27)
--- NOTE | 2021-02-02 13:34 | PC.NUTR ---
Nutrition assessment for MST score of 4. Recommend change to pureed renal dialysis diet when diet advanced--notified Dr. Ruiz and nurse Katie of recommendation. See full RD assessment for further details.
--- NOTE | 2021-02-02 13:55 | PM.PN ---
Subjective Subjective: Interval history: Patient was seen this morning, currently getting dialysis, he is alert to person, to place, to time, he follows commands, his mentation is significantly improved, he understands today that he has been have a debridement of his diabetic wounds, he tells me that his brother is planning to fly him to [place], he will do everything in his power to try to get out there Vitals/I&O/Wt Last Vital Signs Temp 97.4 F L 02/02/21 13:09 Pulse 84 02/02/21 13:09 Resp 18 02/02/21 13:09 BP 155/78 02/02/21 13:09 Pulse Ox 96 02/02/21 13:09 02/01/21 02/02/21 02/02/21 22:59 06:59 14:59 Intake Total 240 / 663.333 100 / 763.333 Balance 240 / 663.333 100 / 763.333 Weight last 48 hrs Weight 89.358 kg Weight 89.6 kg Physical Exam Const: COMMON NORMALS: no acute distress and patient oriented x3 Resp: COMMON NORMALS: normal respiratory effort, No retractions, No use of accessory muscles and clear to auscultation bilaterally AUSCULTATION: clear to auscultation bilaterally Cardio: COMMON NORMALS: regular rate, regular rhythm, S1 normal heart sound present and S2 normal heart sound present RATE: regular rate RHYTHM: regular rhythm HEART SOUNDS: S1 normal heart sound present and S2 normal heart sound present GI: COMMON NORMALS: Normal to inspection, nondistended, normoactive bowel sounds present, Soft to palpation, non-tender and No hepatosplenomegaly present PALPATION: Yes Soft to palpation and Yes No hepatosplenomegaly present Extremity: COMMON NORMALS: no pedal edema Neuro: COMMON NORMALS: patient oriented x3 Psych: COMMON NORMALS: mental status grossly normal Skin: NARRATIVE SKIN EXAM: Right BKA stump site, black eschar, with opening of surgical site, with purulent drainage, measuring 2 x 2 cm with surrounding erythema Left lower extremity, heel, black eschar, measuring 2 x 2 cm round, with surrounding erythema, no active drainage Left lower extremity, lateral aspect, fifth digit, black eschar, with active drainage, opening seepage, with surrounding erythema, active drainage, measuring 3 cm long, 2 cm across, linear Data : 02/02/21 05:40 02/02/21 05:40 Micro: Microbiology 02/01/21 04:35 Gram Stain - Final Ankle - Wound Wound Culture - Preliminary Gram Negative Rods 01/31/21 11:14 Urine Culture - Final Urine,Clean Catch Escherichia coli esbl 01/31/21 10:45 Blood Culture - Preliminary Blood NEGATIVE TO DATE 01/31/21 10:45 Blood Culture - Preliminary Blood NEGATIVE TO DATE A&P Assessment and plan (1) Acute encephalopathy: -Acute encephalopathy has resolved, alert oriented x3, follows commands -Multiple sources of infection include cellulitis, acute on chronic wound with black eschar with active drainage on right BKA stump site, left lower extremity cellulitis and osteomyelitis and deep tissue infection CT scan shows -1. Interval appearance of lytic bone destruction along the lateral cortex of the lateral malleolus consistent with osteomyelitis. 2. Interval appearance of soft tissue thickening over the lateral malleolus consistent with possible soft tissue callus or phlegmon. 3. Interval appearance of mild soft tissue ulceration superior to the level of the osteomyelitis/phlegmon in the region of the distal fibular shaft or proximal lateral malleolus. 4. Interval appearance of lytic bone destruction in the head and neck of the 5th metatarsus and cortical destruction in the base of the little toe proximal phalanx consistent with osteomyelitis. 5. Interval appearance of soft tissue emphysema throughout the left little toe from tip of the toe through the head and neck of the metatarsus area consistent with necrotizing fasciitis. 6. Continued soft tissue swelling in the forefoot consistent with cellulitis. -Also with cystitis -Has a history of ESBL, VRE Plan: -Admit to general medical floors -Blood cultures, urine cultures ESBL E. coli, wound cultures gram-negative rods -Broad-spectrum antibiotic therapy vancomycin, Primaxin -General surgery consulted for consideration of debridement, likely IV antibiotics, but possible outpatient below-knee amputation -Monitor mentation, aspiration precautions, seizure precautions -Patient is DNR -SCDs for DVT prophylaxis, Lovenox contraindicated given pseudoaneurysm below -Dysphagia diet -Currently n.p.o. for surgical intervention today End-stage renal disease, nephrology consulted, plan on dialysis today Peripheral arterial disease, no blood flow below the left knee, underwent CSI arthrectomy of mid to distal left SFA and peroneal artery, followed by balloon angioplasty of peroneal artery, anterior tibial artery, mid to distal left SFA Pseudoaneurysm after procedure as above, requiring 1 unit PRBC, aspirin Plavix on hold, ultrasound shows stability CAD, CABG in 2013, aspirin and Plavix on hold due to to pseudoaneurysm Type 2 diabetes mellitus, diet controlled, low-dose sliding scale Anemia, hemoglobin 8.5, continue to monitor History of seizures, continue Keppra CHF, continue to monitor not in acute exacerbation Status: Acute (2) Cystitis: Status: Acute (3) Peripheral arterial disease: Status: Acute (4) Anemia: Status: Acute (5) ESRD (end stage renal disease): Status: Acute (6) HTN (hypertension): Status: Acute (7) Pseudoaneurysm following procedure: Status: Acute (8) CHF (congestive heart failure): Status: Acute Qualifiers: Heart failure chronicity: chronic Heart failure type: combined systolic and diastolic Qualified Code(s): I50.42 - Chronic combined systolic (congestive) and diastolic (congestive) heart failure (9) Cellulitis: Status: Acute (10) Chronic wound of extremity: Status: Acute (11) Osteomyelitis of left lower extremity: Status: Acute Attestations Medical Necessity Statement*: Patient requires hospitalization for ESBL E. coli UTI, ulcer wounds, acute encephalopathy, Coding Level of Care Code Acute Executive Secretary Social Welfare for [facility] Diagnoses Acute encephalopathy G93.40 Cystitis N30.90 Peripheral arterial disease I73.9 Anemia D64.9 ESRD (end stage renal disease) N18.6 HTN (hypertension) I10 Pseudoaneurysm following procedure T81.718A; I72.9 CHF (congestive heart failure) I50.42 Heart failure chronicity: chronic Heart failure type: combined systolic and diastolic Cellulitis L03.90 Chronic wound of extremity Osteomyelitis of left lower extremity M86.9
[2021-02-02] MEDS: lidocaine 2% INJ 20 mL INJECTION (14:45)
--- NOTE | 2021-02-02 15:12 | PM.OP ---
Operative Report Date of procedure: February 02, 2021 Pre-op Diagnosis: Left diabetic foot infection Post-op diagnosis: same Post-op Findings: Gangrenous left fifth toe with soft tissue infection Procedure Done: Amputation of left fifth toe and sharp debridement of left lateral malleolar wound Implants: Placement of Surgicel followed by 4 x 4's Specimens removed/disposition: Tissues for cultures and sensitivities from the left lateral wound Left fifth toe amputation Surgeon: Hugo Davenport Master Craftsman: pathology laboratory technologist Jazmin Circulating nurse Sully Anesthesia: General (LMA sales assistant entertainment and media Anita) Estimated blood loss (mL): 15 Condition: stable Procedure: Patient after being identified in the holding area and his left lower extremity was marked by me, and informed consent per chart ,patient was then taken back to the OR placed in supine position got intubated by anesthesia in the form of LMA . Time-out was done verifying the patient's name/date of /planned procedure and destination after the procedure, all were in agreement.preoperative antibiotics administered per protocol, and beta jacky protocol was confirmed. prep and drape of the left lower extremity including the left foot was done under the usual sterile technique. Intraoperative findings; Infected left fifth toe demonstrating mixture of dry and wet gangrene and a left lateral malleolar wound that shows necrotic eschar.Started by dissecting the left fifth toe and was totally necrotic and I had to perform an amputation at the distal head of the left fifth metatarsal bone using a bone cutting forceps as the bone was so frail., Sharp debridement was done to the wound cavity all the way to the bone layer followed by copious and thorough irrigation using Pulsavac and appropriate hemostasis was applied and bone wax was applied onto the residual bone. Tissues were taken for cultures and sensitivities and the left fifth toe was sent for permanent pathology. Attention was then paid to the left lateral malleolar wound and the necrotic eschar was removed and sharp debridement was done to the underlying wound cavity all the way to the muscular fascia layer. Followed by copious and thorough irrigation using Pulsavac. Predebridement measurements of the left lateral foot wound 8 x 5 x 0.2 cm Postdebridement measurements of the left lateral foot wound 8.5 x 5.2 x 1[address] to the bony layer Left lateral malleolar wound predebridement measurements 4.5 x 5 x 0.2 centimeters Post debridement measurements 5 x 5.1 x 0.[address] to the muscular fascial layer Packing using gauze after placement of Surgicel at the bottom of the wound, followed by ABDs Kerlix and Walter wrap. Count was completed at the end of the procedure including instruments, needles and sponges and needles I was present for the whole entire procedure Patient was then extubated and was taken to the recovery in stable condition
--- NOTE | 2021-02-02 15:38 | ANES.PREANE2 ---
Pre-Anesthetic Assessment Pre-Anesthetic Assessment: Height/Weight: Height 1.68 m Weight 83 kg Temp Pulse Resp BP Pulse Ox 97.2 F L 86 15 127/68 95 02/02/21 15:30 02/02/21 15:30 02/02/21 15:30 02/02/21 15:30 02/02/21 15:30 Preop Diagnosis: Left diabetic foot infection Proposed Procedure: Operation Date: 02/02/21 13:10 Proposed Procedures p Debridement LEFT LEG(Left) - Hugo Davenport MD Operation Date: 02/03/21 11:50 Proposed Procedures p Debridement(Left) - Hugo Davenport MD Was Beta Nina taken within 24 hours: N/A Was Clonidine taken within 24 hours: N/A Last intake: Intake Last Liquid Date 02/02/21 Last Liquid Time 22:00 Last Solid Date 02/01/21 Last Solid Time 22:00 Social: Social History: Tobacco and No alcohol Exam: Pre-Anes Outpt Exam: alert, oriented x 3 and regular rate & rhythm Airway: Cervical ROM: WNL MP: 2 Dentition: False Pulmonary: Pulmonary: COPD CV/HEM: CV/HEM: Anemia, CHF, HTN and PVD : : Chronic renal failuer Neuropsych: Neuropsych: Neuropathy and Seizure Anesthetic Plan: ASA status: 3 Anesthesia: Choice Risk of > 500 ml blood loss (7ml/kg in children): No Meds/Allergies Current Medications: Current Medications Generic Name Dose Route Start Last Admin Trade Name Freq PRN Reason Stop Dose Admin Amlodipine Besylat e 5 mg 02/01/21 08:00 02/02/21 07:24 Amlodipine 5 Mg Tablet PO Not Given DAILY@0800 [facility] Ascorbic Acid 500 mg 02/01/21 08:00 02/02/21 07:24 Ascorbic Acid 50 0 Mg Tablet PO Not Given DAILY@0800 [facility] Atorvastatin Calci um 40 mg 01/31/21 20:00 02/01/21 20:41 Atorvastatin 40 Mg Tablet PO 40 mg DAILY@2000 [facility] Administration Collagenase 1 applic 02/01/21 09:00 02/02/21 07:25 Collagenase Oint 30 Gm TOPICAL Not Given DAILY [facility] Imipenem/Cilastati n Sodium 250 100 mls @ 200 mls /hr 02/01/21 01:00 02/02/21 12:55 mg/ Sodium Chlor nikia IV 200 mls/hr Q12H YANELI Administration Vancomycin HCl 1,0 00 mg/ 250 mls @ 250 mls /hr 01/31/21 21:00 02/01/21 07:42 Sodium Chloride IV Infused MoWeFr YANELI Infusion Sodium Chloride 1,000 mls @ 30 ml s/hr 02/02/21 13:15 02/02/21 13:27 Sodium Chloride 0.9% IV 02/03/21 13:14 30 mls/hr .Q24H YANELI Administration Isosorbide Mononit rate 30 mg 02/01/21 08:00 02/02/21 07:24 Isosorbide [place] itrate Er 30 Mg Ta blet PO Not Given DAILY@0800 [facility] Levetiracetam 500 mg 01/31/21 20:00 02/02/21 07:24 Levetiracetam 50 0 Mg Tablet PO Not Given BID@0800,1999 [facility] Pantoprazole Sodiu m 40 mg 01/31/21 20:00 02/02/21 07:[address] 40 Mg Tablet PO Not Given BID@08,20 [facility] Sevelamer Carbonat e 800 mg 01/31/21 20:00 02/02/21 13:01 Sevelamer 800 Mg Tablet PO Not Given TID@08,14,20 [facility] PFSH Anesthesia PFSH: Medical History Acute encephalopathy Acute on chronic anemia Altered mental status Anemia Anemia Anemia in CKD (chronic kidney disease) Atherosclerosis of coronary artery of [place] heart without angina pectoris Atherosclerotic heart disease of [place] coronary artery without angina pectoris Bradycardia CAD (coronary artery disease) Cellulitis of left lower extremity CHF (congestive heart failure) Chronic ulcer of ankle CKD (chronic kidney disease), stage V started hemodialysis 07/29/2020 Combined systolic and diastolic congestive heart failure Echo 08/04 demonstrates EF 35 to 40% COVID-19 (~01/2020) Decubitus ulcer Diabetes Diabetes mellitus Diabetic peripheral neuropathy associated with type 2 diabetes mellitus Elevated troponin ESRD (end stage renal disease) ESRD (end stage renal disease) on dialysis Gangrene of left foot History of ESBL E. 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 hx of multilevel DJD, s/p spinal stimulator Peripheral arterial disease Peripheral neuropathy Polyneuropathy in other diseases classified elsewhere Pre-operative cardiovascular examination Seizure disorder Spinal cord stimulator status Spinal stenosis Type 2 diabetes mellitus Surgical History S/P CABG x 3 S/P dialysis catheter insertion (07/29/20) Issac S/P insertion of spinal cord stimulator Status post below knee amputation of right lower extremity Family History Mother Cancer Brother Lung disease Other Hyperlipidemia Hypertension Denies family history of Diabetes CAD (coronary artery disease) Clotting disorder Dementia Psychiatric illness Chronic kidney disease (CKD) Suicide Anesthesia complication Bleeding disorder Stroke Social History Alcohol intake: former Lives independently: No (Brother is his power of research attorney, recently has had to be involved in more decisions) Housing: Jail Data Anesthesia CBC & Chem 7: 02/02/21 05:40 02/02/21 05:40 Other Labs: Laboratory Results - last 48 hr 01/31/21 01/31/21 01/31/21 10:45 17:30 19:42 WBC Corrected WBC RBC Hgb Hct MCV MCH MCHC RDW Plt Count MPV Gran % Neut % (Auto) Lymph % (Auto) [place] % (Auto) Eos % (Auto) Baso % (Auto) Neut # (Auto) Lymph # (Auto) [place] # (Auto) Eos # (Auto) Baso # (Auto) Absolute Gran (auto) Nucleated RBC % (auto) Nucleated RBCs # ESR 31 H PT INR Sodium Potassium Chloride Carbon Dioxide Anion Gap BUN Creatinine GFR Calculation Glucose POC Glucose 103 Calculated Osmolality Calcium Phosphorus Magnesium Total Bilirubin AST ALT Alkaline Phosphatase Troponin T Hi Sens 6Hr 459.5 H Troponin T Hi Sens 6Hr Delta -16.5 L C-Reactive Protein NT-Pro-B Natriuret Pep Total Protein Albumin Globulin Procalcitonin 02/01/21 02/01/21 02/01/21 05:26 05:26 06:09 WBC Cancelled 7.7 Corrected WBC Cancelled RBC Cancelled 2.80 L Hgb Cancelled 8.9 L Hct Cancelled 27.6 L MCV Cancelled 98.6 H MCH Cancelled 31.8 MCHC Cancelled 32.2 RDW Cancelled 13.2 Plt Count Cancelled 191 MPV Cancelled 8.8 Gran % Cancelled Neut % (Auto) Cancelled 78.6 Lymph % (Auto) Cancelled 9.3 [place] % (Auto) Cancelled 8.1 Eos % (Auto) Cancelled 2.9 Baso % (Auto) Cancelled 0.7 Neut # (Auto) Cancelled 6.02 Lymph # (Auto) Cancelled 0.7 L [place] # (Auto) Cancelled 0.6 Eos # (Auto) Cancelled 0.2 Baso # (Auto) Cancelled 0.1 Absolute Gran (auto) Cancelled Nucleated RBC % (auto) Cancelled 0 Nucleated RBCs # Cancelled 0.0 ESR PT INR Sodium 139 Potassium 4.4 Chloride 100 Carbon Dioxide 26 Anion Gap 17.4 BUN 30 H Creatinine 3.1 H GFR Calculation Not Reportable Glucose 81 POC Glucose Calculated Osmolality 293 Calcium 9.0 Phosphorus 3.2 Magnesium 1.7 Total Bilirubin 0.3 AST 7 ALT 6 Alkaline Phosphatase 61 Troponin T Hi Sens 6Hr Troponin T Hi Sens 6Hr Delta C-Reactive Protein NT-Pro-B Natriuret Pep Total Protein 6.4 L Albumin 3.2 L Globulin 3.2 Procalcitonin 02/01/21 02/01/21 02/02/21 06:48 20:22 05:40 WBC Corrected WBC RBC Hgb Hct MCV MCH MCHC RDW Plt Count MPV Gran % Neut % (Auto) Lymph % (Auto) [place] % (Auto) Eos % (Auto) Baso % (Auto) Neut # (Auto) Lymph # (Auto) [place] # (Auto) Eos # (Auto) Baso # (Auto) Absolute Gran (auto) Nucleated RBC % (auto) Nucleated RBCs # ESR PT INR Sodium 139 Potassium 4.1 Chloride 100 Carbon Dioxide 24 Anion Gap 19.1 H BUN 39 H Creatinine 4.3 H GFR Calculation Not Reportable Glucose 89 POC Glucose 91 139 H Calculated Osmolality 297 H Calcium 9.2 Phosphorus 3.6 Magnesium 1.6 L Total Bilirubin 0.3 AST 8 ALT < 5 Alkaline Phosphatase 56 Troponin T Hi Sens 6Hr Troponin T Hi Sens 6Hr Delta C-Reactive Protein 65.6 H NT-Pro-B Natriuret Pep 4574 H Total Protein 6.3 L Albumin 3.0 L Globulin 3.3 Procalcitonin 0.52 H 02/02/21 02/02/21 02/02/21 05:40 05:40 06:51 WBC 8.1 Corrected WBC RBC 2.74 L Hgb 8.5 L Hct 27.0 L MCV 98.5 H MCH 31.0 MCHC 31.5 RDW 13.2 Plt Count 205 MPV 9.0 Gran % Neut % (Auto) 77.1 Lymph % (Auto) 8.8 [place] % (Auto) 9.9 Eos % (Auto) 3.0 Baso % (Auto) 0.6 Neut # (Auto) 6.23 Lymph # (Auto) 0.7 L [place] # (Auto) 0.8 Eos # (Auto) 0.2 Baso # (Auto) 0.1 Absolute Gran (auto) Nucleated RBC % (auto) 0 Nucleated RBCs # 0.0 ESR PT 16.00 H INR 1.24 H Sodium Potassium Chloride Carbon Dioxide Anion Gap BUN Creatinine GFR Calculation Glucose POC Glucose 102 Calculated Osmolality Calcium Phosphorus Magnesium Total Bilirubin AST ALT Alkaline Phosphatase Troponin T Hi Sens 6Hr Troponin T Hi Sens 6Hr Delta C-Reactive Protein NT-Pro-B Natriuret Pep Total Protein Albumin Globulin Procalcitonin 02/02/21 11:41 WBC Corrected WBC RBC Hgb Hct MCV MCH MCHC RDW Plt Count MPV Gran % Neut % (Auto) Lymph % (Auto) [place] % (Auto) Eos % (Auto) Baso % (Auto) Neut # (Auto) Lymph # (Auto) [place] # (Auto) Eos # (Auto) Baso # (Auto) Absolute Gran (auto) Nucleated RBC % (auto) Nucleated RBCs # ESR PT INR Sodium Potassium Chloride Carbon Dioxide Anion Gap BUN Creatinine GFR Calculation Glucose POC Glucose 95 Calculated Osmolality Calcium Phosphorus Magnesium Total Bilirubin AST ALT Alkaline Phosphatase Troponin T Hi Sens 6Hr Troponin T Hi Sens 6Hr Delta C-Reactive Protein NT-Pro-B Natriuret Pep Total Protein Albumin Globulin Procalcitonin Micro: Microbiology 02/01/21 04:35 Gram Stain - Final Ankle - Wound Wound Culture - Preliminary Gram Negative Rods 01/31/21 11:14 Urine Culture - Final Urine,Clean Catch Escherichia coli esbl 01/31/21 10:45 Blood Culture - Preliminary Blood NEGATIVE TO DATE 01/31/21 10:45 Blood Culture - Preliminary Blood NEGATIVE TO DATE Cardiac Studies: No Data to Display
--- NOTE | 2021-02-02 15:52 | PC.NURSE ---
OR NOTE UP VIA [facility] WITH LAURO RN AT [facility] AND [facility] STUDENT - RETURNED TO BED - VSS - ALERT TO SELF/CONFUSED AT PRESENT TIME - LUNGS COARSE THROUGHOUT - IVF VIA PUMP TO LEFT FA PIID - RIGHT FA PIID INTACT - RIGHT BKA REMAINS UNCHANGED PER AM ASSESSMENT - LEFT FOOT WITH BULKY ROSALIND C/D/I - PT ABLE TO MOVE TOES - WILL MONITOR
[2021-02-02 17:18] LABS: Glucose Point of Care 102 mg/dL (70-110)
--- NOTE | 2021-02-02 17:32 | PC.NURSE ---
DR SHANNON ORTEGA ON FLOOR - UPDATING MR BURGESS OSORIO POST SURGERY - WILL ASSESS PT WELL
[2021-02-02] MEDS: vancomycin 1,000 MG in sodium chloride 0.9% 250 ML 250 MG IV (20:45)
[2021-02-02 20:56] LABS: Glucose Point of Care 135 mg/dL (70-110)
[2021-02-02] MEDS: pantoprazole DR 40 mg Tablet PO (21:16)
[2021-02-02] MEDS: atorvastatin 40 mg Tablet PO (21:16)
[2021-02-02] MEDS: sevelamer 800 mg Tablet PO (21:16)
[2021-02-02] MEDS: levETIRAcetam 500 mg Tablet PO (21:16)
[2021-02-03] VITALS (9 sets, daily range): BP systolic 97–138; BP diastolic 50–78; PULSE 68–88; RESP 16–19; TEMP 36.3–37.2; O2SAT 91–96
[2021-02-03 05:59] LABS: Basophils # 0.1 10^3/uL (0.0-0.1); Basophils % 0.7 %; Eosinophils # 0.2 10^3/uL (0.0-0.8); Eosinophils % 2.1 %; Hematocrit 27.6 % (42.0-52.0); Hemoglobin 8.8 g/dL (11.7-16.6); Lymphocytes # 0.7 10^3/uL (0.8-4.8); Lymphocytes % 8.2 %; Mean Corpuscular HGB Conc 31.9 g/dL (30.0-36.0); Mean Corpuscular Hemoglobin 31.8 pg (28.0-34.0); Mean Corpuscular Volume 99.6 fl (80-94); Monocytes # 0.8 10^3/uL (0.2-0.9); Monocytes % 9.2 %; Neutrophils % 79.2 %; Nucleated Red Blood Cells % 0 %; Platelet Count 226 10^3/cmm (130-400); Red Blood Count 2.77 10^6/uL (4.1-5.3); Red Cell Distribution Width 13.2 % (12.1-15.1); White Blood Count 8.7 10^3/uL (4.0-10.0)
--- NOTE | 2021-02-03 06:37 | PC.NURSE ---
Patient rested well all night with no complaints. Still resting this morning in bed with call light in reach. SCOTT Garcia
[2021-02-03 06:40] LABS: Alanine Aminotransferase < 5 U/L (0-41); Alkaline Phosphatase 56 IU/L (40-130); Aspartate Amino Transferase 6 U/L (0-40); Blood Urea Nitrogen 23 mg/dL (8-23); Calcium 8.7 mg/dL (8.5-10.5); Carbon Dioxide 28 mmol/L (22-29); Chloride 99 mmol/L (98-107); Glucose 113 mg/dL (65-115); Magnesium 1.7 mg/dL (1.7-2.3); Osmolality Calculated 288 mOsm/kg (285-295); Phosphorus 3.1 mg/dL (2.5-4.5); Sodium 137 mmol/L (136-145); Total Bilirubin 0.3 mg/dL (0.15-1.2)
[2021-02-03 06:51] LABS: INR 1.17 (0.8-1.2)
[2021-02-03 06:58] LABS: Glucose Point of Care 116 mg/dL (70-110)
[2021-02-03 07:42] LABS: NT Pro B Type Natriuretic Pept 3939 pg/mL (0-125); Procalcitonin 0.61 ng/mL (0-0.5)
[2021-02-03 07:47] LABS: Albumin Level 3.1 g/dL (3.5-5.2); C Reactive Protein 59.6 mg/L (0.0-4.9); Creatinine Clr Calc Pharmacy 24.1103; Total Protein 6.1 g/dL (6.6-8.7)
[2021-02-03] MEDS: sevelamer 800 mg Tablet PO ×2 (09:03→19:42)
[2021-02-03] MEDS: isosorbide mononitrate ER 30 mg Tablet PO (09:03)
[2021-02-03] MEDS: levETIRAcetam 500 mg Tablet PO ×2 (09:03→19:42)
[2021-02-03] MEDS: pantoprazole DR 40 mg Tablet PO ×2 (09:03→19:42)
[2021-02-03] MEDS: ascorbic acid 500 mg Tablet PO (09:03)
[2021-02-03] MEDS: HYDROmorphone 1 mg/mL INJ 1 mL 0.5 MG IVP ×4 (10:10→20:40)
--- NOTE | 2021-02-03 10:33 | PC.SOCIAL ---
IMM Update: pg 2 of IMM updated and reviewed w/ patient. Copy provided.
[2021-02-03] MEDS: collagenase oint 30 gm 1 APPLIC TOPICAL (11:04)
--- NOTE | 2021-02-03 14:44 | P.PN_ITS ---
Subjective Subjective: Interval history: No new issues today. He feels well. Keen to go back to the [place] [facility]. Dialysis yesterday when would well with no complications. No uremic symptoms, no hypervolemic symptoms. Medications: Reviewed: Yes Vitals/I&O/Wt Last Vital Signs Temp 98.7 F 02/03/21 11:18 Pulse 83 02/03/21 11:18 Resp 16 02/03/21 14:19 BP 97/78 02/03/21 11:18 Pulse Ox 92 02/03/21 11:18 02/02/21 02/03/21 02/03/21 22:59 06:59 14:59 Intake Total 350 / 850 220 / 1070 220 / 220 Output Total 3012 250 / 3263 550 / 550 Balance 340 / -2163 -30 / -2193 -330 / -330 Weight last 48 hrs Weight 83 kg Physical Exam Narrative: EXAM NARRATIVE: Constitutional: Awake, comfortable HEENT: Wet mucosa, no jvp, non icteric Lungs: Bilaterally clear without discernible wheeze, rales in all lung zones CVS: S1 S2, no murmurs Abdo: Soft, BS ok Ext 4: Minimal edema, peripheral perfusion with no cyanosis Neurological: Grossly non-focal Data : 02/03/21 05:44 02/03/21 05:44 Micro: Microbiology 02/02/21 Unknown Gram Stain - Final Foot - Left Tissue Culture - Preliminary Gram Negative Rods Gram Negative Rods#2 02/01/21 04:35 Gram Stain - Final Ankle - Wound Wound Culture - Preliminary Escherichia coli esbl 01/31/21 11:14 Urine Culture - Final Urine,Clean Catch Escherichia coli esbl A&P Additional A&P Information 1. ESRD Plan for dialysis tomorrow 2K, UF 2-3L Continue MWF schedule Dose medication for GFR less than 15 on dialysis 2. UTI Management per hospitalist team including management of antibiotics. GNRs in the urine and history of recurrent ESBL EColi 3. Hemodynamics Currently stable, will monitor closely during dialysis 4. Chronic ESRD issues To manage as an outpatient as part of standard monthly management. Continue home medication Thank for consultation, as always it is a pleasure to follow these cases with you DC per hospitalist team, ok with me Dennis Carreon MD Nephrology [phone] Patient seen and examined via telemedicine, with the assistance of the bedside RN > 25 min spent in evaluation and mgmt of patient Attestations Medical Necessity Statement*: eval for ESRD Coding Level of Care Code Acute Coiled Tubing Supervisor for Chg Daniel
--- NOTE | 2021-02-03 14:56 | P.PN_ITS ---
Subjective Subjective: Interval history: Patient was seen this morning, no fevers, no chills, no nausea, no vomiting is alert to person, to place, to time, he continues to have plain in his left lower extremity, status post debridement, Vitals/I&O/Wt Last Vital Signs Temp 98.7 F 02/03/21 11:18 Pulse 83 02/03/21 11:18 Resp 16 02/03/21 14:19 BP 97/78 02/03/21 11:18 Pulse Ox 92 02/03/21 11:18 02/02/21 02/03/21 02/03/21 22:59 06:59 14:59 Intake Total 350 / 850 220 / 1070 220 / 220 Output Total 3012 250 / 3263 550 / 550 Balance 340 / -2163 -30 / -2193 -330 / -330 Weight last 48 hrs Weight 83 kg Physical Exam Const: COMMON NORMALS: no acute distress and patient oriented x3 Resp: COMMON NORMALS: normal respiratory effort, No retractions, No use of accessory muscles and clear to auscultation bilaterally AUSCULTATION: clear to auscultation bilaterally Cardio: COMMON NORMALS: regular rate, regular rhythm, S1 normal heart sound present and S2 normal heart sound present RATE: regular rate RHYTHM: regular rhythm HEART SOUNDS: S1 normal heart sound present and S2 normal heart sound present GI: COMMON NORMALS: Normal to inspection, nondistended, normoactive bowel sounds present, Soft to palpation and non-tender PALPATION: Yes Soft to palpation Neuro: COMMON NORMALS: patient oriented x3 Psych: COMMON NORMALS: mental status grossly normal Skin: NARRATIVE SKIN EXAM: Right BKA stump site, black eschar, with opening of surgical site, with purulent drainage, measuring 2 x 2 cm with surrounding erythema, improved Left lower extremity, heel, currently wrapped and bandaged Left lower extremity, lateral aspect, currently wrapped and bandaged Data : 02/03/21 05:44 02/03/21 05:44 Micro: Microbiology 02/02/21 Unknown Gram Stain - Final Foot - Left Tissue Culture - Preliminary Gram Negative Rods Gram Negative Rods#2 02/01/21 04:35 Gram Stain - Final Ankle - Wound Wound Culture - Preliminary Escherichia coli esbl 01/31/21 11:14 Urine Culture - Final Urine,Clean Catch Escherichia coli esbl A&P Assessment and plan (1) Acute encephalopathy: -Acute encephalopathy has resolved, alert oriented x3, follows commands -Multiple sources of infection include cellulitis, acute on chronic wound with black eschar with active drainage on right BKA stump site, left lower extremity cellulitis and osteomyelitis and deep tissue infection CT scan shows -1. Interval appearance of lytic bone destruction along the lateral cortex of the lateral malleolus consistent with osteomyelitis. 2. Interval appearance of soft tissue thickening over the lateral malleolus consistent with possible soft tissue callus or phlegmon. 3. Interval appearance of mild soft tissue ulceration superior to the level of the osteomyelitis/phlegmon in the region of the distal fibular shaft or proximal lateral malleolus. 4. Interval appearance of lytic bone destruction in the head and neck of the 5th metatarsus and cortical destruction in the base of the little toe proximal phalanx consistent with osteomyelitis. 5. Interval appearance of soft tissue emphysema throughout the left little toe from tip of the toe through the head and neck of the metatarsus area consistent with necrotizing fasciitis. 6. Continued soft tissue swelling in the forefoot consistent with cellulitis. -Also with cystitis -Has a history of ESBL, VRE -Status post amputation of left fifth toe and sharp debridement of left lateral malleolus Plan: -Admit to general medical floors -Blood cultures, urine cultures ESBL E. coli, wound cultures gram-negative rods, E. coli ESBL, surgical cultures pending -Broad-spectrum antibiotic therapy vancomycin, Primaxin -Likely will require PICC line placement with vancomycin for 6 weeks -Possible below-knee amputation as outpatient -Monitor mentation, aspiration precautions, seizure precautions -Patient is DNR -SCDs for DVT prophylaxis, Lovenox contraindicated given pseudoaneurysm below -Dysphagia diet -Dysphagia diet End-stage renal disease, nephrology consulted, plan on dialysis today Peripheral arterial disease, no blood flow below the left knee, underwent CSI arthrectomy of mid to distal left SFA and peroneal artery, followed by balloon angioplasty of peroneal artery, anterior tibial artery, mid to distal left SFA Pseudoaneurysm after procedure as above, requiring 1 unit PRBC, aspirin Plavix on hold, ultrasound shows stability CAD, CABG in 2012, aspirin and Plavix on hold due to to pseudoaneurysm Type 2 diabetes mellitus, diet controlled, low-dose sliding scale Anemia, hemoglobin 8.8, continue to monitor NSTEMI, no complaints of chest pain, no clinically significant delta troponin, likely secondary end-stage renal disease, continue to monitor History of seizures, continue Keppra CHF, continue to monitor not in acute exacerbation Status: Acute (2) Cystitis: Status: Acute (3) Peripheral arterial disease: Status: Acute (4) Anemia: Status: Acute (5) ESRD (end stage renal disease): Status: Acute (6) HTN (hypertension): Status: Acute (7) Pseudoaneurysm following procedure: Status: Acute (8) CHF (congestive heart failure): Status: Acute Qualifiers: Heart failure chronicity: chronic Heart failure type: combined systolic and diastolic Qualified Code(s): I50.42 - Chronic combined systolic (congestive) and diastolic (congestive) heart failure (9) Cellulitis: Status: Acute (10) Chronic wound of extremity: Status: Acute (11) Osteomyelitis of left lower extremity: Status: Acute Attestations Medical Necessity Statement*: Patient requires hospitalization for ESBL E. 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
[2021-02-03 17:23] LABS: Glucose Point of Care 114 mg/dL (70-110)
[2021-02-03] MEDS: atorvastatin 40 mg Tablet PO (19:42)
[2021-02-03 21:02] LABS: Glucose Point of Care 148 mg/dL (70-110)
[2021-02-04] VITALS (10 sets, daily range): BP systolic 108–142; BP diastolic 55–71; PULSE 66–102; RESP 15–18; TEMP 36.6–37.1; O2SAT 91–94
[2021-02-04] MEDS: HYDROmorphone 1 mg/mL INJ 1 mL 0.5 MG IVP ×3 (05:26→16:00)
[2021-02-04 07:16] LABS: Glucose Point of Care 106 mg/dL (70-110)
--- NOTE | 2021-02-04 07:20 | PM.PN ---
Subjective Subjective: Interval history: unhappy, wants to go home. no n/v/f/c/lee/d. states he does not urinate much. + leg pain and amputation Medications: Reviewed: Yes Medication Review Details: Current Medications Acetaminophen (Acetaminophen 325 Mg Tablet) 650 mg PO Q6H PRN PRN Reason: Mild/Mod Pain Or Temp >/= 101 Amlodipine Besylate (Amlodipine 5 Mg Tablet) 5 mg PO DAILY@0800 [facility] Last Admin: 02/03/21 09:15 Dose: Not Given Documented by: Ascorbic Acid (Ascorbic Acid 500 Mg Tablet) 500 mg PO DAILY@0800 [facility] Last Admin: 02/03/21 09:03 Dose: 500 mg Documented by: Atorvastatin Calcium (Atorvastatin 40 Mg Tablet) 40 mg PO DAILY@2000 [facility] Last Admin: 02/03/21 19:42 Dose: 40 mg Documented by: Bisacodyl (Bisacodyl 10 Mg Supp) 10 mg NM DAILY PRN PRN Reason: Constipation Collagenase (Collagenase Oint 30 Gm) 1 applic TOPICAL DAILY [facility] Last Admin: 02/03/21 11:04 Dose: 1 applic Documented by: Dextrose (Dextrose 50% Syringe 50 Ml) 25 ml IVP ONCE PRN; Protocol PRN Reason: hypoglycemia protocol Dextrose (Dextrose 50% Syringe 50 Ml) 50 ml IVP PRN PRN; Protocol PRN Reason: hypoglycemia protocol Glucagon (Glucagon 1 Mg/Ml Inj 1 Ml) 1 mg IM ONCE PRN; Protocol PRN Reason: Adult Acute Hypoglycemia Prot. Hydromorphone HCl (Hydromorphone 1 Mg/Ml Inj 1 Ml) 0.5 mg IVP Q2H PRN PRN Reason: PAIN Last Admin: 02/04/21 05:26 Dose: 0.5 mg Documented by: Imipenem/Cilastatin Sodium 250 (mg/ Sodium Chloride) 100 mls @ 200 mls/hr IV Q12H [facility] Last Infusion: 02/04/21 01:15 Dose: Infused Documented by: Vancomycin HCl 1,000 mg/ (Sodium Chloride) 250 mls @ 250 mls/hr IV MoWeFr [facility] Last Infusion: 02/02/21 22:34 Dose: Infused Documented by: Dextrose (D5w) 500 mls @ 100 mls/hr IV ONCE PRN; Protocol PRN Reason: Adult Acute Hypoglycemia Prot Isosorbide Mononitrate (Isosorbide Mononitrate Er 30 Mg Tablet) 30 mg PO DAILY@0800 [facility] Last Admin: 02/03/21 09:03 Dose: 30 mg Documented by: Levetiracetam (Levetiracetam 500 Mg Tablet) 500 mg PO BID@0800,1999 [facility] Last Admin: 02/03/21 19:42 Dose: 500 mg Documented by: Magnesium Hydroxide (Magnesium Hydroxide 30 Ml Udc) 30 ml PO DAILY PRN PRN Reason: Constipation Midazolam HCl (Midazolam 1 Mg/Ml Inj 2 Ml) 2 mg IVP Q5M PRN PRN Reason: Preop Anxiety Naloxone HCl (Naloxone 0.4 Mg/Ml Sdv) 0.1 mg IVP Q2M PRN PRN Reason: OPIATERV Non-Formulary Medication (Dakin's 1/4 Strength (0.125% ) 1 each TOPICAL DAILY [facility] Last Admin: 02/03/21 11:04 Dose: 1 each Documented by: Ondansetron HCl (Ondansetron 2 Mg/Ml Sdv 2 Ml) 4 mg IVP Q8H PRN PRN Reason: vomiting, or N/V if npo Pantoprazole Sodium (Pantoprazole Dr 40 Mg Tablet) 40 mg PO BID@ [facility] Last Admin: 02/03/21 19:42 Dose: 40 mg Documented by: Senna/Docusate Sodium (Sennosides-Docusate Tablet) 1 tab PO BID PRN PRN Reason: Constipation Sevelamer Carbonate (Sevelamer 800 Mg Tablet) 800 mg PO TID@,, [facility] Last Admin: 02/03/21 19:42 Dose: 800 mg Documented by: Sodium Phosphate (Fleet Enema 133 Ml Enema) 118 ml NM DAILY PRN PRN Reason: Constipation Vitals/I&O/Wt Last Vital Signs Temp 98.3 F 02/04/21 04:00 Pulse 68 02/04/21 04:00 Resp 16 02/04/21 05:26 BP 130/55 02/04/21 04:00 Pulse Ox 94 02/04/21 04:00 02/03/21 02/04/21 02/04/21 22:59 06:59 14:59 Intake Total 300 / 520 Balance 300 / -30 Weight last 48 hrs Weight 83 kg Physical Exam Narrative: EXAM NARRATIVE: Constitutional: Awake, comfortable in bed, NARD HEENT: nc/at, eomi, anicteric neck-supple, no jvp Lungs: cta b/l CVS: S1 S2, RRR, no murmurs Abdo: Soft, NT, ND, + BS Ext 4: rt BKA, left foot bandage, poor pulse, no edema mood- upset Neurological: a,a, o x 3, moves all ext seen and examined w/ rN- telehealth visit Data : 02/03/21 05:44 02/03/21 05:44 Micro: Microbiology 02/02/21 Unknown Gram Stain - Final Foot - Left Tissue Culture - Preliminary Gram Negative Rods Gram Negative Rods#2 02/01/21 04:35 Gram Stain - Final Ankle - Wound Wound Culture - Preliminary Escherichia coli esbl A&P Additional A&P Information 1. ESRD Plan for dialysis today 2K, UF 2L as jak by SBP Continue MWF schedule Dose medication for GFR less than 15 on dialysis 2. UTI Management per hospitalist team including management of antibiotics. GNRs in the urine and history of recurrent ESBL EColi 3. acute on chronic wound with black eschar with active drainage on right BKA stump site, left lower extremity cellulitis and osteomyelitis and deep tissue infection -abx per medicine- Q if needs further ORfor PAD. 4. Peripheral arterial disease, no blood flow below the left knee, underwent CSI arthrectomy of mid to distal left SFA and peroneal artery, followed by balloon angioplasty of peroneal artery, anterior tibial artery, mid to distal left SFA 5. anemia- check iron studies, epo 6. DM control 7. CAD s/p CABG 8. phos controlled. check pth 9. elevated BNP- gently remove fluids on dialysios Patient seen and examined via telemedicine, with the assistance of the bedside RN > 25 min spent in evaluation and mgmt of patient Attestations Medical Necessity Statement*: infection Time Spent in Patient Care: 16 - 35 minutes Coding Level of Care Code Acute Clinical Laboratory Assistant for [facility]
[2021-02-04] MEDS: sevelamer 800 mg Tablet PO ×3 (07:29→20:20)
[2021-02-04] MEDS: levETIRAcetam 500 mg Tablet PO ×2 (07:30→20:20)
[2021-02-04] MEDS: pantoprazole DR 40 mg Tablet PO ×2 (07:30→20:20)
[2021-02-04] MEDS: ascorbic acid 500 mg Tablet PO (07:30)
[2021-02-04] MEDS: isosorbide mononitrate ER 30 mg Tablet PO (07:30)
[2021-02-04] MEDS: amlodipine 5 mg Tablet PO (07:55)
[2021-02-04] MEDS: epoetin alfa 10,000 unit/mL INJ 10000 UNIT SUBCUT (08:44)
[2021-02-04] MEDS: heparin, porcine 1,000 unit/mL INJ 10 mL HE (08:46)
[2021-02-04 09:27] LABS: Basophils % 0.8 %; Eosinophils # 0.2 10^3/uL (0.0-0.8); Eosinophils % 3.4 %; Hematocrit 26.2 % (42.0-52.0); Hemoglobin 8.4 g/dL (11.7-16.6); Lymphocytes # 0.9 10^3/uL (0.8-4.8); Lymphocytes % 16.2 %; Mean Corpuscular HGB Conc 32.1 g/dL (30.0-36.0); Mean Corpuscular Hemoglobin 31.6 pg (28.0-34.0); Mean Corpuscular Volume 98.5 fl (80-94); Mean Platelet Volume 9.1 fL (7.4-10.4); Monocytes # 0.3 10^3/uL (0.2-0.9); Monocytes % 5.6 %; Neutrophils % 73.4 %; Nucleated Red Blood Cells % 0 %; Platelet Count 210 10^3/cmm (130-400); Red Blood Count 2.66 10^6/uL (4.1-5.3); Red Cell Distribution Width 13.1 % (12.1-15.1); White Blood Count 5.3 10^3/uL (4.0-10.0)
[2021-02-04 09:52] LABS: Vancomycin Random 13.8 ug/mL (20.0-40.0)
[2021-02-04 09:56] LABS: NT Pro B Type Natriuretic Pept 3544 pg/mL (0-125)
[2021-02-04 10:07] LABS: Alanine Aminotransferase < 5 U/L (0-41); Albumin Level 3.1 g/dL (3.5-5.2); Alkaline Phosphatase 57 IU/L (40-130); Anion Gap 13.6 (5-19); Aspartate Amino Transferase 6 U/L (0-40); Blood Urea Nitrogen 29 mg/dL (8-23); C Reactive Protein 58.8 mg/L (0.0-4.9); Calcium 8.8 mg/dL (8.5-10.5); Carbon Dioxide 27 mmol/L (22-29); Chloride 97 mmol/L (98-107); Glucose 93 mg/dL (65-115); Osmolality Calculated 284 mOsm/kg (285-295); Potassium 3.6 mmol/L (3.5-5.1); Sodium 134 mmol/L (136-145); Total Bilirubin 0.3 mg/dL (0.15-1.2); Total Protein 6.1 g/dL (6.6-8.7)
[2021-02-04 10:29] LABS: INR 1.15 (0.8-1.2)
[2021-02-04 11:06] LABS: Glucose Point of Care 112 mg/dL (70-110)
--- NOTE | 2021-02-04 11:23 | PC.NURSE ---
Dr. Ruiz notified of wound cultures of ankle called from lab.
--- NOTE | 2021-02-04 12:17 | PM.PN ---
Subjective Subjective: Interval history: Patient was seen this morning, currently receiving dialysis, he is having his PICC line placed, he is alert to person, place, to time, follows all commands, he has no complaints this morning, he tells me he really wants to go with his brother to [place] Vitals/I&O/Wt Last Vital Signs Temp 98.4 F 02/04/21 07:45 Pulse 93 02/04/21 10:55 Resp 15 02/04/21 10:13 BP 118/58 02/04/21 10:55 Pulse Ox 93 02/04/21 07:45 02/03/21 02/04/21 02/04/21 22:59 06:59 14:59 Intake Total 300 / 520 240 / 240 Balance 300 / -30 240 / 240 Weight last 48 hrs Weight 83 kg Physical Exam Const: COMMON NORMALS: no acute distress and patient oriented x3 Resp: COMMON NORMALS: normal respiratory effort, No retractions, No use of accessory muscles and clear to auscultation bilaterally AUSCULTATION: clear to auscultation bilaterally Cardio: COMMON NORMALS: regular rate, regular rhythm, S1 normal heart sound present and S2 normal heart sound present RATE: regular rate RHYTHM: regular rhythm HEART SOUNDS: S1 normal heart sound present and S2 normal heart sound present GI: COMMON NORMALS: Normal to inspection, nondistended, normoactive bowel sounds present, Soft to palpation and non-tender PALPATION: Yes Soft to palpation Extremity: COMMON NORMALS: no pedal edema Neuro: COMMON NORMALS: patient oriented x3 Psych: COMMON NORMALS: mental status grossly normal Skin: NARRATIVE SKIN EXAM: Right BKA stump site, black eschar, with opening of surgical site, with purulent drainage, measuring 2 x 2 cm with surrounding erythema, improved Left lower extremity, heel, currently wrapped and bandaged Left lower extremity, lateral aspect, currently wrapped and bandaged Data : 02/04/21 09:20 02/04/21 09:20 Micro: Microbiology 02/01/21 04:35 Gram Stain - Final Ankle - Wound Wound Culture - Preliminary Escherichia coli esbl Staphylococcus aureus 02/02/21 Unknown Gram Stain - Final Foot - Left Tissue Culture - Preliminary Escherichia coli esbl Proteus mirabilis A&P Assessment and plan (1) Acute encephalopathy: -Acute encephalopathy has resolved, alert oriented x3, follows commands -Multiple sources of infection include cellulitis, acute on chronic wound with black eschar with active drainage on right BKA stump site, left lower extremity cellulitis and osteomyelitis and deep tissue infection CT scan shows -1. Interval appearance of lytic bone destruction along the lateral cortex of the lateral malleolus consistent with osteomyelitis. 2. Interval appearance of soft tissue thickening over the lateral malleolus consistent with possible soft tissue callus or phlegmon. 3. Interval appearance of mild soft tissue ulceration superior to the level of the osteomyelitis/phlegmon in the region of the distal fibular shaft or proximal lateral malleolus. 4. Interval appearance of lytic bone destruction in the head and neck of the 5th metatarsus and cortical destruction in the base of the little toe proximal phalanx consistent with osteomyelitis. 5. Interval appearance of soft tissue emphysema throughout the left little toe from tip of the toe through the head and neck of the metatarsus area consistent with necrotizing fasciitis. 6. Continued soft tissue swelling in the forefoot consistent with cellulitis. -Also with cystitis -Has a history of ESBL, VRE -Status post amputation of left fifth toe and sharp debridement of left lateral malleolus Plan: -Admit to general medical floors -Blood cultures, urine cultures ESBL E. coli, wound cultures gram-negative rods, E. coli ESBL, surgical cultures Proteus, ESBL -Broad-spectrum antibiotic therapy vancomycin, Primaxin -Likely will require PICC line placement with vancomycin for 6 weeks, and meropenem for 6 weeks -Possible below-knee amputation as outpatient -Monitor mentation, aspiration precautions, seizure precautions -Patient is DNR -SCDs for DVT prophylaxis, Lovenox contraindicated given pseudoaneurysm below -Dysphagia diet -Dysphagia diet -PICC line to be placed today, likely discharge on vancomycin and meropenem for 6 weeks End-stage renal disease, nephrology consulted, dialysis Peripheral arterial disease, no blood flow below the left knee, underwent CSI arthrectomy of mid to distal left SFA and peroneal artery, followed by balloon angioplasty of peroneal artery, anterior tibial artery, mid to distal left SFA Pseudoaneurysm after procedure as above, requiring 1 unit PRBC, aspirin Plavix on hold, ultrasound shows stability CAD, CABG in 2012, aspirin and Plavix on hold due to to pseudoaneurysm Type 2 diabetes mellitus, diet controlled, low-dose sliding scale Anemia, hemoglobin 8.8, continue to monitor NSTEMI, no complaints of chest pain, no clinically significant delta troponin, likely secondary end-stage renal disease, continue to monitor History of seizures, continue Keppra CHF, continue to monitor not in acute exacerbation Status: Acute (2) Cystitis: Status: Acute (3) Peripheral arterial disease: Status: Acute (4) Anemia: Status: Acute (5) ESRD (end stage renal disease): Status: Acute (6) HTN (hypertension): Status: Acute (7) Pseudoaneurysm following procedure: Status: Acute (8) CHF (congestive heart failure): Status: Acute Qualifiers: Heart failure chronicity: chronic Heart failure type: combined systolic and diastolic Qualified Code(s): I50.42 - Chronic combined systolic (congestive) and diastolic (congestive) heart failure (9) Cellulitis: Status: Acute (10) Chronic wound of extremity: Status: Acute (11) Osteomyelitis of left lower extremity: Status: Acute Attestations Medical Necessity Statement*: Patient requires hospitalization for acute encephalopathy involving left lower extremity cellulitis, osteomyelitis, deep tissue infection, UTI, growing ESBL E. 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
--- NOTE | 2021-02-04 13:23 | PC.CHAP ---
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 model maker visit [] Patient/Family/Request visit [] Outpatient visit [xx] Follow-up visit [] Physician referral [] Code/Alert [] Routine visit [] Staff referral [] Actively dying [] Patient sleeping [] Family support [] [xx] Out of room [] Palliative care [] [] Receiving care in room [] Pre-surgical visit [] Trauma [] Long length of stay [] ICU visit [] Other: Relational/Emotional Strength [] Patient feels connected with others/family/visitors/staff [] Distress [] Loneliness/isolation [] Abandonment Spirituality of Patient [] Person of Ghislaine [] Attends Rastafarian of their [place]laine [] Believes in Prayer [] Reads Bible or Mormonism materials [] There are Spiritual issues to be addressed Diesel Mechanic Apprentice Interventions [] Prayer [] Active listening [] Non-anxious presence [] Spiritual/emotional support [] Crisis/trauma care [] Spiritual counseling [] Bereavement support [] Provided bereavement packet [] Provided Bible/devotional materials [] Provided toy/stuffed animal, coloring book to patient or family member [] Provided Communion [] Anointing/[place] [] Salvation [] Completed spiritual assessment [] Other: Impact on Illness or Injury [] Angry [] Fearful [] Anxious [] Often cries [] Exhaustion [] Unable to work [] Unable to attend roman catholic [] Unable to walk/stand [] Unable to read [] Unable to drive [] Unable to eat/drink [] Unable to sleep [] Unable to be with family [] Patient intubated [] Other: Summary Patient and his bed were out of room for other treatment. Follow up needed later. Time spent with patient
--- NOTE | 2021-02-04 16:10 | PC.NURSE ---
Dr. Ruiz notified that PICC team unable to place PICC line and attempted six times. No further orders received at this time.
--- NOTE | 2021-02-04 16:11 | PC.NUTR ---
Nutrition follow up: Spoke with pt regarding protein intake. Pt reports being dissatisfied with the food here--encouraged pt to notify nursing or dietary during meal time if food is not to his satisfaction so that other items could be delivered in a timely manner. Pt verbalized understanding. Pt agreeable to try Nepro with meals for additional protein intake. Also recommend diet clarification, as GRIEVANCE COORDINATOR recommendations indicated mechanical soft diet, but pureed diet in place. See full RD assessment for further details.
--- NOTE | 2021-02-04 16:57 | P.PN_ITS ---
Subjective Subjective: Interval history: Overall patient feels better. No acute events overnight. Medications: Reviewed: Yes Vitals/I&O/Wt Last Vital Signs Temp 98.2 F 02/04/21 15:27 Pulse 102 H 02/04/21 15:27 Resp 16 02/04/21 16:00 BP 125/66 02/04/21 15:27 Pulse Ox 93 02/04/21 15:27 02/04/21 02/04/21 02/04/21 06:59 14:59 22:59 Intake Total 300 / 520 340 / 340 Output Total 2500 / 2500 Balance 300 / -30 -2160 / -2160 Weight last 48 hrs Weight 183 lb 13.848 oz Physical Exam Narrative: EXAM NARRATIVE: Patient is conscious alert mildly confused BMI 32 Head and neck examination PERRLA no masses no cervical lymphadenopathy no jaundice Abdomen nontender nondistended soft no organomegaly guarding or rigidity/no signs of peritonitis Left lower extremity wounds looking clean without evidence of surrounding cellulitis or discharge. There is evidence of eschar formation of the wounds likely due to relatively suboptimal blood flow to the lateral aspect of the foot and lower third of the leg, dressing was done by me bedside with the help of the nursing staff. Right below the knee stump eschar stable without complication Data : 02/04/21 09:20 02/04/21 09:20 Micro: Microbiology 02/01/21 04:35 Gram Stain - Final Ankle - Wound Wound Culture - Preliminary Escherichia coli esbl Staphylococcus aureus 02/02/21 Unknown Gram Stain - Final Foot - Left Tissue Culture - Preliminary Escherichia coli esbl Proteus mirabilis A&P Assessment and plan (1) Chronic wound of extremity: Assessment 70 years old gentleman undergone debridement of left lower extremity wounds 02/02/2021 Plan 1-nutrition optimization 2-wound care in the form of daily dressing change of left foot wounds using Dakin's solution for packing followed by ABDs Kerlix and Walter wrap. Left heel paint with Betadine once a day Right below the knee amputation stump site paint with Betadine once a day 3-management of medical comorbidities per hospitalist service with medical optimization 4-physical therapy consultation when needed 5-assurance and education All questions have been answered and all concerns have been addressed to patient's satisfaction. Likely the patient would benefit from below the knee amputation after being medically cleared as well as from cardiac standpoint of view in addition to optimization of nutrition status. Status: Acute Attestations Medical Necessity Statement*: Per admitting service Time Spent in Patient Care: 16 - 35 minutes (>than 50% of time spent in counselling and/or direct pt care on unit) . Coding Level of Care Code Acute Insulating Machine Operator for [facility] Diagnoses Chronic wound of extremity
[2021-02-04 17:04] LABS: Glucose Point of Care 142 mg/dL (70-110)
[2021-02-04] MEDS: atorvastatin 40 mg Tablet PO (20:20)
[2021-02-04] MEDS: vancomycin 1,000 MG in sodium chloride 0.9% 250 ML 250 MG IV (20:23)
[2021-02-04 21:09] LABS: Glucose Point of Care 130 mg/dL (70-110)
[2021-02-05] VITALS (7 sets, daily range): BP systolic 106–153; BP diastolic 67–80; PULSE 78–92; RESP 16–18; TEMP 36.4–37.4; O2SAT 92–96
[2021-02-05 06:50] LABS: Glucose Point of Care 109 mg/dL (70-110)
[2021-02-05 07:24] LABS: 25 Hydroxy Vitamin D 44 ng/mL (30-100); Alanine Aminotransferase < 5 U/L (0-41); Alkaline Phosphatase 56 IU/L (40-130); Anion Gap 16.6 (5-19); Blood Urea Nitrogen 20 mg/dL (8-23); Calcium 8.9 mg/dL (8.5-10.5); Carbon Dioxide 26 mmol/L (22-29); Chloride 96 mmol/L (98-107); Globulin 3.3 g/dL (1.3-4.6); Glucose 93 mg/dL (65-115); Iron 51 ug/dL (59-158); Magnesium 1.6 mg/dL (1.7-2.3); Osmolality Calculated 282 mOsm/kg (285-295); Phosphorus 2.9 mg/dL (2.5-4.5); Potassium 3.6 mmol/L (3.5-5.1); Sodium 135 mmol/L (136-145); Total Bilirubin 0.3 mg/dL (0.15-1.2); Total Protein 6.3 g/dL (6.6-8.7)
[2021-02-05 07:25] LABS: Aspartate Amino Transferase 8 U/L (0-40); Percent Saturation 32.4 % (20-50); Total Iron Binding Capacity 157 mcg/dl; Unsaturated Iron Binding 106 ug/dL (112-347)
[2021-02-05 07:26] LABS: Calcium 8.5 mg/dL (8.5-10.5); Parathyroid Hormone 102.6 pg/mL (15-65)
[2021-02-05 07:41] LABS: Ferritin 1701 ng/mL (30-400)
--- NOTE | 2021-02-05 08:59 | PC.SOCIAL ---
IMM update IMM updated with patient's brother. Verbalized an understanding. Initialled, dated, timed, and placed in chart.
[2021-02-05 09:17] LABS: Basophils # 0.1 10^3/uL (0.0-0.1); Basophils % 0.9 %; Eosinophils # 0.2 10^3/uL (0.0-0.8); Eosinophils % 2.4 %; Hematocrit 27.3 % (42.0-52.0); Hemoglobin 8.7 g/dL (11.7-16.6); Lymphocytes # 0.9 10^3/uL (0.8-4.8); Lymphocytes % 12.6 %; Mean Corpuscular HGB Conc 31.9 g/dL (30.0-36.0); Mean Corpuscular Hemoglobin 31.3 pg (28.0-34.0); Mean Corpuscular Volume 98.2 fl (80-94); Mean Platelet Volume 9.8 fL (7.4-10.4); Monocytes # 0.7 10^3/uL (0.2-0.9); Monocytes % 10.5 %; Neutrophils # 4.92 10^3/uL (1.8-7.7); Neutrophils % 73.2 %; Nucleated Red Blood Cells % 0 %; Platelet Count 212 10^3/cmm (130-400); Red Blood Count 2.78 10^6/uL (4.1-5.3); Red Cell Distribution Width 13.1 % (12.1-15.1); White Blood Count 6.7 10^3/uL (4.0-10.0)
--- NOTE | 2021-02-05 10:40 | PC.NURSE ---
Patient is refusing to take his scheduled morning medication until he wakes up attemped several times this morning to administer medications.
[2021-02-05 11:32] LABS: Glucose Point of Care 106 mg/dL (70-110)
[2021-02-05] MEDS: pantoprazole DR 40 mg Tablet PO ×2 (11:48→19:46)
[2021-02-05] MEDS: sevelamer 800 mg Tablet PO ×3 (11:48→19:46)
[2021-02-05] MEDS: levETIRAcetam 500 mg Tablet PO ×2 (11:48→19:46)
[2021-02-05] MEDS: ascorbic acid 500 mg Tablet PO (11:48)
[2021-02-05] MEDS: isosorbide mononitrate ER 30 mg Tablet PO (11:49)
[2021-02-05] MEDS: amlodipine 5 mg Tablet PO (11:49)
[2021-02-05] MEDS: collagenase oint 30 gm 1 APPLIC TOPICAL (11:49)
--- NOTE | 2021-02-05 11:52 | PC.NURSE ---
Pt took his morning medication at approximately 12pm.
--- NOTE | 2021-02-05 15:23 | PM.PN ---
Subjective Subjective: Interval history: anxious for discharge, brother will be taking him to [place]. He states he has dialysis center there. pic line was unable to be placed he will require antibiotics at dialysis Medications: Reviewed: Yes Vitals/I&O/Wt Last Vital Signs Temp 97.5 F L 02/05/21 11:54 Pulse 78 02/05/21 11:54 Resp 18 02/05/21 11:54 BP 149/67 02/05/21 11:54 Pulse Ox 96 02/05/21 11:54 02/05/21 02/05/21 02/05/21 06:59 14:59 22:59 Intake Total 250 / 1080 Output Total 0 / 2500 Balance 250 / -1420 Weight last 48 hrs Weight 83.4 kg Data : 02/05/21 09:04 02/05/21 05:45 Micro: Microbiology 01/31/21 10:45 Blood Culture - Final Blood NO GROWTH AFTER 5 DAYS 01/31/21 10:45 Blood Culture - Final Blood NO GROWTH AFTER 5 DAYS 02/02/21 Unknown Gram Stain - Final Foot - Left Tissue Culture - Final Escherichia coli esbl Proteus mirabilis 02/01/21 04:35 Gram Stain - Final Ankle - Wound Wound Culture - Final Escherichia coli esbl Staphylococcus aureus A&P Additional A&P Information 1. ESRD HD MWF via right IJ tunneled HD catheter 2. ESBL UTI 3. wound with proteus and e.coli 4. anemia, Hb stable - epogen, iron if needed at dialysis 5. hypertension - well controlled Recommendation: vancomycin dosing at dialysis. Oral antibiotic for proteus, dose adjusted for ESRD. If continued coverage for esbl e.coli UTI is required as outpatient, amikacin can be dosed at dialysis Next HD SundayFebruary 07. Outpatient dialysis requires detailed instructions on antibiotic dosing and duration prior to discharge. 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
--- NOTE | 2021-02-05 16:29 | P.PN_ITS ---
Subjective Subjective: Interval history: Yesterday afternoon, I discussion with patient's brother, patient's brother is adamant about taking Moy to [place] next Sunday, he tells me that he has bought a plane ticket for Moy and is going to bring him to [place] to be with him, he is already arranged everything with the airlines, he is flying out there, he is already arranged for his dialysis, is also in talking with hospitals are in [place] to figure out how he could get streamlined care I advised his brother that the safest option for Moy would be a transfer hospital to hospital so that his brother could get optimal medical care, good could get streamlined care at another hospital including IV antibiotics, and possible surgical intervention once he is medically appropriate to undergo surgery, I would also ensure that he would have a safe transport under medical supervision. However his brother tells me that he cannot afford this, and for them is not a viable option. I advised his brother that transporting Moy on an airline currently under his condition carry significant morbidity and mortality and I would recommend against it. In addition as is difficult to get IV antibio tics set up, especially across state lines, and is out of our control, he does run the risk of morbidity and mortality for however long he does not get IV antibiotics for his osteomyelitis and foot infection. There is also morbidity and mortality and poor outcome associated with delaying his medical care, the discontinued he of his care, the risks of transport, inadequate wound care, delays in dialysis, and seeing specialist. His brother voiced understanding, all questions answered, but again declined my offer for transfer. The next option I discussed with his brother was keeping him here locally, continue IV antibiotics, medically optimizing him he does have CHF, he has had a positive stress test, he requires cardiac evaluation before undergoing a below-knee amputation. Also requires optimization of his infectious status, his dialysis, and his nutrition status. This could take time, could take a few weeks to few months, but her goal is to medically optimize him so that he could tolerate surgery, and decrease the risks associated with surgery. After discussing the risks and benefits of this option, his brother voiced understanding, all questions answered, declined. He tells me that he is getting take his brother back to [place] next Sunday regardless. I advised his brother that I do not recommend this option, there is significant morbidity and mortality and poor outcome associated with this option. However I am always working in Moy's best interest, I will do my best to work with Moy and his brother. Patient was seen this morning, currently doing well, having no complaints, I discussed my above discussion with his Moy, and discussed with him the options as above, Moy told me that he has a lot to think about, he wants to talk to his brother before coming to a decision Vitals/I&O/Wt Last Vital Signs Temp 97.5 F L 02/05/21 11:54 Pulse 78 02/05/21 11:54 Resp 18 02/05/21 11:54 BP 149/67 02/05/21 11:54 Pulse Ox 96 02/05/21 11:54 02/05/21 02/05/21 02/05/21 06:59 14:59 22:59 Intake Total 250 / 1080 100 / 100 Output Total 0 / 2500 Balance 250 / -1420 100 / 100 Weight last 48 hrs Weight 83.4 kg Physical Exam Const: COMMON NORMALS: no acute distress and patient oriented x3 Resp: COMMON NORMALS: normal respiratory effort, No retractions, No use of accessory muscles and clear to auscultation bilaterally AUSCULTATION: clear to auscultation bilaterally Cardio: COMMON NORMALS: regular rate, regular rhythm, S1 normal heart sound present and S2 normal heart sound present RATE: regular rate RHYTHM: regular rhythm HEART SOUNDS: S1 normal heart sound present and S2 normal heart sound present GI: COMMON NORMALS: Normal to inspection, nondistended, normoactive bowel sounds present, Soft to palpation and non-tender PALPATION: Yes Soft to palpation Neuro: COMMON NORMALS: patient oriented x3 Psych: COMMON NORMALS: mental status grossly normal Skin: NARRATIVE SKIN EXAM: Right BKA stump site, black eschar, with opening of surgical site, with purulent drainage, measuring 2 x 2 cm with surrounding erythema, improved Left lower extremity, heel, currently wrapped and bandaged Left lower extremity, lateral aspect, currently wrapped and bandaged Data : 02/05/21 09:04 02/05/21 05:45 Micro: Microbiology 01/31/21 10:45 Blood Culture - Final Blood NO GROWTH AFTER 5 DAYS 01/31/21 10:45 Blood Culture - Final Blood NO GROWTH AFTER 5 DAYS 02/02/21 Unknown Gram Stain - Final Foot - Left Tissue Culture - Final Escherichia coli esbl Proteus mirabilis 02/01/21 04:35 Gram Stain - Final Ankle - Wound Wound Culture - Final Escherichia coli esbl Staphylococcus aureus A&P Assessment and plan (1) Acute encephalopathy: -Acute encephalopathy has resolved, alert oriented x3, follows commands -Multiple sources of infection include cellulitis, acute on chronic wound with black eschar with active drainage on right BKA stump site, left lower extremity cellulitis and osteomyelitis and deep tissue infection CT scan shows -1. Interval appearance of lytic bone destruction along the lateral cortex of the lateral malleolus consistent with osteomyelitis. 2. Interval appearance of soft tissue thickening over the lateral malleolus consistent with possible soft tissue callus or phlegmon. 3. Interval appearance of mild soft tissue ulceration superior to the level of the osteomyelitis/phlegmon in the region of the distal fibular shaft or proximal lateral malleolus. 4. Interval appearance of lytic bone destruction in the head and neck of the 5th metatarsus and cortical destruction in the base of the little toe proximal phalanx consistent with osteomyelitis. 5. Interval appearance of soft tissue emphysema throughout the left little toe from tip of the toe through the head and neck of the metatarsus area consistent with necrotizing fasciitis. 6. Continued soft tissue swelling in the forefoot consistent with cellulitis. -Also with cystitis -Has a history of ESBL, VRE -Status post amputation of left fifth toe and sharp debridement of left lateral malleolus Plan: -Admit to general medical floors -Blood cultures, urine cultures ESBL E. coli, wound cultures gram-negative rods, E. coli ESBL, surgical cultures Proteus, ESBL -Broad-spectrum antibiotic therapy vancomycin, Primaxin -Likely will require PICC line placement with vancomycin for 6 weeks, and meropenem for 6 weeks -Possible below-knee amputation as outpatient -Monitor mentation, aspiration precautions, seizure precautions -Patient is DNR -SCDs for DVT prophylaxis, Lovenox contraindicated given pseudoaneurysm below -Renal diet -PICC line attempt was made, however difficult, will reattempt on Sunday, possible PowerPort placement -Requires medical optimization before surgery, has had a positive stress test, sonogram shows EF of 30 to 35%, will require cardiac evaluation before surgery -Consult nutrition End-stage renal disease, nephrology consulted, dialysis Peripheral arterial disease, no blood flow below the left knee, underwent CSI arthrectomy of mid to distal left SFA and peroneal artery, followed by balloon angioplasty of peroneal artery, anterior tibial artery, mid to distal left SFA Pseudoaneurysm after procedure as above, requiring 1 unit PRBC, aspirin Plavix on hold, ultrasound shows stability CAD, CABG in 2013, aspirin and Plavix on hold due to to pseudoaneurysm Type 2 diabetes mellitus, diet controlled, low-dose sliding scale Anemia, hemoglobin 8.8, continue to monitor NSTEMI, no complaints of chest pain, no clinically significant delta troponin, likely secondary end-stage renal disease, continue to monitor History of seizures, continue Keppra CHF, continue to monitor not in acute exacerbation Status: Acute (2) Cystitis: Status: Acute (3) Peripheral arterial disease: Status: Acute (4) Anemia: Status: Acute (5) ESRD (end stage renal disease): Status: Acute (6) HTN (hypertension): Status: Acute (7) Pseudoaneurysm following procedure: Status: Acute (8) CHF (congestive heart failure): Status: Acute Qualifiers: Heart failure chronicity: chronic Heart failure type: combined systolic and diastolic Qualified Code(s): I50.42 - Chronic combined systolic (congestive) and diastolic (congestive) heart failure (9) Cellulitis: Status: Acute (10) Chronic wound of extremity: Status: Acute (11) Osteomyelitis of left lower extremity: Status: Acute Attestations Medical Necessity Statement*: Requires hospitalization for osteomyelitis, Coding Level of Care Code 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
[2021-02-05 16:35] LABS: Glucose Point of Care 143 mg/dL (70-110)
[2021-02-05] MEDS: atorvastatin 40 mg Tablet PO (19:46)
[2021-02-05] MEDS: HYDROmorphone 1 mg/mL INJ 1 mL 0.5 MG IVP (19:51)
[2021-02-05 20:28] LABS: Glucose Point of Care 132 mg/dL (70-110)
[2021-02-06] VITALS (15 sets, daily range): BP systolic 100–133; BP diastolic 57–81; PULSE 76–83; RESP 15–20; TEMP 36.7–37.3; O2SAT 92–96
[2021-02-06] MEDS: HYDROmorphone 1 mg/mL INJ 1 mL 0.5 MG IVP ×7 (02:51→22:41)
--- NOTE | 2021-02-06 04:54 | PC.NURSE ---
SHIFT SUMMARY Has had a good night. Has been pleasant. Medicated X2 with IV Dilaudid for c/o pain in left foot. Has been repositioned for comfort per pt request. Does help with position changes. Dressing/kary wrap intact to left foot. R BKA. Stump with eschar covered wound and some redness around wound. 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 Receiving IV antibiotics. Urinated X1 per urinal with some spillage on gown. Was changed. Redness with peeling skin to sacral/buttocks areas. Using Aloe [place] ointment to area. Has requested back rub for itching skin X2. Had good soft formed BM tonight
[2021-02-06 06:23] LABS: Glucose Point of Care 104 mg/dL (70-110)
--- NOTE | 2021-02-06 08:38 | PM.PN ---
Subjective Subjective: Interval history: feels well. wants to go home. no n/v/f/c/lee/d/dec sob- can lay flat Medications: Reviewed: Yes Medication Review Details: Current Medications Acetaminophen (Acetaminophen 325 Mg Tablet) 650 mg PO Q6H PRN PRN Reason: Mild/Mod Pain Or Temp >/= 101 Amlodipine Besylate (Amlodipine 5 Mg Tablet) 5 mg PO DAILY@0800 COUNTS INCLUDE 234 BEDS AT THE [facility] Last Admin: 02/05/21 11:49 Dose: 5 mg Documented by: Ascorbic Acid (Ascorbic Acid 500 Mg Tablet) 500 mg PO DAILY@0800 COUNTS INCLUDE 234 BEDS AT THE [facility] Last Admin: 02/05/21 11:48 Dose: 500 mg Documented by: Atorvastatin Calcium (Atorvastatin 40 Mg Tablet) 40 mg PO DAILY@1999 COUNTS INCLUDE 234 BEDS AT THE [facility] Last Admin: 02/05/21 19:46 Dose: 40 mg Documented by: Bisacodyl (Bisacodyl 10 Mg Supp) 10 mg [place] DAILY PRN PRN Reason: Constipation Collagenase (Collagenase Oint 30 Gm) 1 applic TOPICAL DAILY COUNTS INCLUDE 234 BEDS AT THE [facility] Last Admin: 02/05/21 11:49 Dose: 1 applic Documented by: Dextrose (Dextrose 50% Syringe 50 Ml) 25 ml IVP ONCE PRN; Protocol PRN Reason: hypoglycemia protocol Dextrose (Dextrose 50% Syringe 50 Ml) 50 ml IVP PRN PRN; Protocol PRN Reason: hypoglycemia protocol Glucagon (Glucagon 1 Mg/Ml Inj 1 Ml) 1 mg IM ONCE PRN; Protocol PRN Reason: Adult Acute Hypoglycemia Prot. Hydromorphone HCl (Hydromorphone 1 Mg/Ml Inj 1 Ml) 0.5 mg IVP Q2H PRN PRN Reason: PAIN Last Admin: 02/06/21 05:19 Dose: 0.5 mg Documented by: Imipenem/Cilastatin Sodium 250 (mg/ Sodium Chloride) 100 mls @ 200 mls/hr IV Q12H COUNTS INCLUDE 234 BEDS AT THE [facility] Last Infusion: 02/06/21 01:09 Dose: Infused Documented by: Vancomycin HCl 1,000 mg/ (Sodium Chloride) 250 mls @ 250 mls/hr IV MoWeFr COUNTS INCLUDE 234 BEDS AT THE [facility] Last Infusion: 02/04/21 21:38 Dose: Infused Documented by: Dextrose (D5w) 500 mls @ 100 mls/hr IV ONCE PRN; Protocol PRN Reason: Adult Acute Hypoglycemia Prot Isosorbide Mononitrate (Isosorbide Mononitrate Er 30 Mg Tablet) 30 mg PO DAILY@0800 COUNTS INCLUDE 234 BEDS AT THE [facility] Last Admin: 02/05/21 11:49 Dose: 30 mg Documented by: Levetiracetam (Levetiracetam 500 Mg Tablet) 500 mg PO BID@799,1999 COUNTS INCLUDE 234 BEDS AT THE [facility] Last Admin: 02/05/21 19:46 Dose: 500 mg Documented by: Magnesium Hydroxide (Magnesium Hydroxide 30 Ml Udc) 30 ml PO DAILY PRN PRN Reason: Constipation Naloxone HCl (Naloxone 0.4 Mg/Ml Sdv) 0.1 mg IVP Q2M PRN PRN Reason: OPIATERV Non-Formulary Medication (Dakin's 1/4 Strength (0.125% ) 1 each TOPICAL DAILY COUNTS INCLUDE 234 BEDS AT THE [facility] Last Admin: 02/05/21 11:49 Dose: 1 each Documented by: Ondansetron HCl (Ondansetron 2 Mg/Ml Sdv 2 Ml) 4 mg IVP Q8H PRN PRN Reason: vomiting, or N/V if npo Pantoprazole Sodium (Pantoprazole Dr 40 Mg Tablet) 40 mg PO BID@ COUNTS INCLUDE 234 BEDS AT THE [facility] Last Admin: 02/05/21 19:46 Dose: 40 mg Documented by: Senna/Docusate Sodium (Sennosides-Docusate Tablet) 1 tab PO BID PRN PRN Reason: Constipation Sevelamer Carbonate (Sevelamer 800 Mg Tablet) 800 mg PO TID@ COUNTS INCLUDE 234 BEDS AT THE [facility] Last Admin: 02/05/21 19:46 Dose: 800 mg Documented by: Vitals/I&O/Wt Last Vital Signs Temp 98.1 F 02/06/21 07:36 Pulse 82 02/06/21 07:36 Resp 15 02/06/21 07:36 BP 105/69 02/06/21 07:36 Pulse Ox 92 02/06/21 07:36 02/05/21 02/06/21 02/06/21 22:59 06:59 14:59 Intake Total 100 / 100 300 / 400 Output Total 150 / 150 Balance 100 / 100 150 / 250 Weight last 48 hrs Weight 83.4 kg Physical Exam Narrative: EXAM NARRATIVE: Constitutional: Awake, comfortable in bed, NARD HEENT: nc/at, eomi, anicteric neck-supple, no jvp rt ij dialysis catheter Lungs: cta b/l CVS: S1 S2, RRR, no murmurs Abdo: Soft, NT, ND, + BS Ext 4: rt BKA, left foot bandage, poor pulse, no edema mood- okay Neurological: a,a, o x 3, moves all ext seen and examined w/ rN- telehealth visit Data : 02/05/21 09:04 02/05/21 05:45 Micro: Microbiology 01/31/21 10:45 Blood Culture - Final Blood NO GROWTH AFTER 5 DAYS 01/31/21 10:45 Blood Culture - Final Blood NO GROWTH AFTER 5 DAYS 02/02/21 Unknown Gram Stain - Final Foot - Left Tissue Culture - Final Escherichia coli esbl Proteus mirabilis 02/01/21 04:35 Gram Stain - Final Ankle - Wound Wound Culture - Final Escherichia coli esbl Staphylococcus aureus A&P Additional A&P Information 1. ESRD Plan for dialysis tomorrow= 2 K, UF 2L as jak by SBP Continue MWF schedule Dose medication for GFR less than 15 on dialysis 2. ESBL UTI Management per hospitalist team including management of antibiotics. please ensure that he has abx on d/c - 3. acute on chronic wound with black eschar with active drainage on right BKA stump site, left lower extremity cellulitis and osteomyelitis and deep tissue infection -abx per medicine- Q if needs further OR for PAD. Consideration of BKA noted 4. Peripheral arterial disease, no blood flow below the left knee, underwent CSI arthrectomy of mid to distal left SFA and peroneal artery, followed by balloon angioplasty of peroneal artery, anterior tibial artery, mid to distal left SFA -may need a BKA per medicine and surgery 5. anemia- iron sat- 32%, ferritin 1701- no iv iron, use, epo 6. DM control 7. CAD s/p CABG- medicine note appreciated- may need cath 8. phos controlled. pth 102.6- no vit d analouge 9. elevated BNP- gently remove fluids on dialysis 10. 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
[2021-02-06] MEDS: sevelamer 800 mg Tablet PO ×3 (08:57→19:28)
[2021-02-06] MEDS: ascorbic acid 500 mg Tablet PO (08:58)
[2021-02-06] MEDS: pantoprazole DR 40 mg Tablet PO ×2 (08:58→19:28)
[2021-02-06] MEDS: levETIRAcetam 500 mg Tablet PO ×2 (08:58→19:28)
[2021-02-06] MEDS: isosorbide mononitrate ER 30 mg Tablet PO (09:00)
[2021-02-06 10:50] LABS: Glucose Point of Care 111 mg/dL (70-110)
[2021-02-06 12:25] LABS: Basophils # 0.1 10^3/uL (0.0-0.1); Basophils % 0.7 %; Eosinophils # 0.2 10^3/uL (0.0-0.8); Eosinophils % 2.9 %; Hematocrit 26.6 % (42.0-52.0); Hemoglobin 8.5 g/dL (11.7-16.6); Lymphocytes # 0.8 10^3/uL (0.8-4.8); Lymphocytes % 11.3 %; Mean Corpuscular Hemoglobin 31.6 pg (28.0-34.0); Mean Corpuscular Volume 98.9 fl (80-94); Mean Platelet Volume 9.3 fL (7.4-10.4); Monocytes # 0.7 10^3/uL (0.2-0.9); Monocytes % 9.1 %; Neutrophils # 5.55 10^3/uL (1.8-7.7); Neutrophils % 75.6 %; Nucleated Red Blood Cells % 0 %; Platelet Count 234 10^3/cmm (130-400); Red Blood Count 2.69 10^6/uL (4.1-5.3); Red Cell Distribution Width 13.2 % (12.1-15.1); White Blood Count 7.3 10^3/uL (4.0-10.0)
[2021-02-06 12:43] LABS: Alanine Aminotransferase < 5 U/L (0-41); Albumin Level 2.8 g/dL (3.5-5.2); Alkaline Phosphatase 56 IU/L (40-130); Anion Gap 16.4 (5-19); Aspartate Amino Transferase 6 U/L (0-40); Blood Urea Nitrogen 30 mg/dL (8-23); Calcium 8.6 mg/dL (8.5-10.5); Carbon Dioxide 24 mmol/L (22-29); Chloride 98 mmol/L (98-107); Globulin 3.1 g/dL (1.3-4.6); Glucose 99 mg/dL (65-115); Magnesium 1.6 mg/dL (1.7-2.3); Osmolality Calculated 286 mOsm/kg (285-295); Phosphorus 3.3 mg/dL (2.5-4.5); Potassium 3.4 mmol/L (3.5-5.1); Sodium 135 mmol/L (136-145); Total Bilirubin 0.3 mg/dL (0.15-1.2); Total Protein 5.9 g/dL (6.6-8.7)
--- NOTE | 2021-02-06 13:20 | PM.PN ---
Subjective Subjective: Interval history: Patient was seen this morning, he is alert oriented x3, follows all commands, denies any chest pain, no shortness of breath, pain is well controlled, he tells me that his plan is to go home with his brother, he understands the risks associated with transportation, the risks of interrupted medical care, he understands the risks associated with going off IV antibiotics, the risks associated with worsening infection, sepsis, osteomyelitis, understands the cardiovascular risk, I advised of the morbidity and mortality associated with their plans, I advised against it, he voiced understanding, all questions answered, adamant about going home to [place] with his brother. I advised patient that currently the plan is to put in a PICC line or a PowerPort on Sunday, get his IV antibiotics approved, and hopefully discharge to [facility] Vitals/I&O/Wt Last Vital Signs Temp 98.2 F 02/06/21 10:57 Pulse 83 02/06/21 10:57 Resp 17 02/06/21 10:57 BP 125/81 02/06/21 10:57 Pulse Ox 94 02/06/21 13:18 02/05/21 02/06/21 02/06/21 22:59 06:59 14:59 Intake Total 100 / 100 300 / 400 240 / 240 Output Total 150 / 150 Balance 100 / 100 150 / 250 240 / 240 Weight last 48 hrs Weight 83.4 kg Physical Exam Const: COMMON NORMALS: no acute distress and patient oriented x3 Resp: COMMON NORMALS: normal respiratory effort, No retractions, No use of accessory muscles and clear to auscultation bilaterally AUSCULTATION: clear to auscultation bilaterally Cardio: COMMON NORMALS: regular rate, regular rhythm, S1 normal heart sound present and S2 normal heart sound present RATE: regular rate RHYTHM: regular rhythm HEART SOUNDS: S1 normal heart sound present and S2 normal heart sound present GI: COMMON NORMALS: Normal to inspection, nondistended, normoactive bowel sounds present, Soft to palpation and non-tender PALPATION: Yes Soft to palpation Neuro: COMMON NORMALS: patient oriented x3 Psych: COMMON NORMALS: mental status grossly normal Skin: NARRATIVE SKIN EXAM: Right BKA stump site, black eschar, with opening of surgical site, with purulent drainage, measuring 2 x 2 cm with surrounding erythema, improved Left lower extremity, heel, currently wrapped and bandaged Left lower extremity, lateral aspect, currently wrapped and bandaged Data : 02/06/21 12:09 02/06/21 12:09 Micro: Microbiology 01/31/21 10:45 Blood Culture - Final Blood NO GROWTH AFTER 5 DAYS 01/31/21 10:45 Blood Culture - Final Blood NO GROWTH AFTER 5 DAYS 02/02/21 Unknown Gram Stain - Final Foot - Left Tissue Culture - Final Escherichia coli esbl Proteus mirabilis A&P Assessment and plan (1) Acute encephalopathy: -Acute encephalopathy has resolved, alert oriented x3, follows commands -Multiple sources of infection include cellulitis, acute on chronic wound with black eschar with active drainage on right BKA stump site, left lower extremity cellulitis and osteomyelitis and deep tissue infection CT scan shows -1. Interval appearance of lytic bone destruction along the lateral cortex of the lateral malleolus consistent with osteomyelitis. 2. Interval appearance of soft tissue thickening over the lateral malleolus consistent with possible soft tissue callus or phlegmon. 3. Interval appearance of mild soft tissue ulceration superior to the level of the osteomyelitis/phlegmon in the region of the distal fibular shaft or proximal lateral malleolus. 4. Interval appearance of lytic bone destruction in the head and neck of the 5th metatarsus and cortical destruction in the base of the little toe proximal phalanx consistent with osteomyelitis. 5. Interval appearance of soft tissue emphysema throughout the left little toe from tip of the toe through the head and neck of the metatarsus area consistent with necrotizing fasciitis. 6. Continued soft tissue swelling in the forefoot consistent with cellulitis. -Also with cystitis -Has a history of ESBL, VRE -Status post amputation of left fifth toe and sharp debridement of left lateral malleolus Plan: -Admit to general medical floors -Blood cultures, urine cultures ESBL E. coli, wound cultures E. coli ESBL, staph aureus, surgical cultures Proteus, ESBL -Broad-spectrum antibiotic therapy vancomycin, Primaxin -will require PICC line placement with vancomycin for 6 weeks 1 g MWF after dialysis, and ertapenem 1 g MWF after dialysis for 6 weeks starting on 02/02/2021 -Possible below-knee amputation as outpatient -Monitor mentation, aspiration precautions, seizure precautions -Patient is DNR -SCDs for DVT prophylaxis, Lovenox contraindicated given pseudoaneurysm below -Renal diet -PICC line attempt was made, however difficult, will reattempt on Sunday, possible PowerPort placement -Requires medical optimization before surgery, has had a positive stress test, sonogram shows EF of 30 to 35%, will require cardiac evaluation before surgery -Consult nutrition End-stage renal disease, nephrology consulted, dialysis Peripheral arterial disease, no blood flow below the left knee, underwent CSI arthrectomy of mid to distal left SFA and peroneal artery, followed by balloon angioplasty of peroneal artery, anterior tibial artery, mid to distal left SFA Pseudoaneurysm after procedure as above, requiring 1 unit PRBC, aspirin Plavix on hold, ultrasound shows stability CAD, CABG in 2012, aspirin and Plavix on hold due to to pseudoaneurysm Type 2 diabetes mellitus, diet controlled, low-dose sliding scale Anemia, hemoglobin 8.8, continue to monitor NSTEMI, no complaints of chest pain, no clinically significant delta troponin, likely secondary end-stage renal disease, continue to monitor History of seizures, continue Keppra CHF, continue to monitor not in acute exacerbation Status: Acute (2) Cystitis: Status: Acute (3) Peripheral arterial disease: Status: Acute (4) Anemia: Status: Acute (5) ESRD (end stage renal disease): Status: Acute (6) HTN (hypertension): Status: Acute (7) Pseudoaneurysm following procedure: Status: Acute (8) CHF (congestive heart failure): Status: Acute Qualifiers: Heart failure chronicity: chronic Heart failure type: combined systolic and diastolic Qualified Code(s): I50.42 - Chronic combined systolic (congestive) and diastolic (congestive) heart failure (9) Cellulitis: Status: Acute (10) Chronic wound of extremity: Status: Acute (11) Osteomyelitis of left lower extremity: Status: Acute Attestations Medical Necessity Statement*: Patient requires hospitalization for lower extremity cellulitis, osteomyelitis, with IV antibiotic treatment Coding Level of Care Code 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
[2021-02-06 17:18] LABS: Glucose Point of Care 105 mg/dL (70-110)
--- NOTE | 2021-02-06 19:24 | PC.NUTR ---
Nutrition consult received per Dr. Ruiz. Limited ability to assess at this time, given missing meal and supplement documentation. However, this RD did assess and interview pt on 02/04/21. Recommend continue with Nepro, and if tolerating, could increase to TID. Did speak with pt regarding protein intake on 02/04/21 but pt provided limited information at that time. Continue to recommend diet clarification, as PSYCHIATRIC REGISTERED NURSE recommendations indicated mechanical soft diet, but pureed diet in place. See full RD assessments from 02/02, 02/04, and 02/06 for further details.
[2021-02-06] MEDS: sacubitril/valsartan 24-26 mg Tablet 1 EACH PO (19:28)
[2021-02-06] MEDS: atorvastatin 40 mg Tablet PO (19:28)
[2021-02-06 21:09] LABS: Glucose Point of Care 114 mg/dL (70-110)
[2021-02-07] VITALS (13 sets, daily range): BP systolic 102–143; BP diastolic 47–75; PULSE 65–85; RESP 16–20; TEMP 36.6–37.2; O2SAT 93–96
[2021-02-07 05:51] LABS: Basophils # 0.1 10^3/uL (0.0-0.1); Basophils % 0.9 %; Eosinophils # 0.3 10^3/uL (0.0-0.8); Eosinophils % 4.4 %; Hematocrit 24.5 % (42.0-52.0); Lymphocytes # 0.9 10^3/uL (0.8-4.8); Lymphocytes % 13.2 %; Mean Corpuscular HGB Conc 32.7 g/dL (30.0-36.0); Mean Corpuscular Hemoglobin 31.5 pg (28.0-34.0); Mean Corpuscular Volume 96.5 fl (80-94); Mean Platelet Volume 9.2 fL (7.4-10.4); Monocytes # 0.7 10^3/uL (0.2-0.9); Monocytes % 10.3 %; Neutrophils # 4.61 10^3/uL (1.8-7.7); Neutrophils % 70.6 %; Nucleated Red Blood Cells % 0 %; Platelet Count 241 10^3/cmm (130-400); Red Blood Count 2.54 10^6/uL (4.1-5.3); White Blood Count 6.5 10^3/uL (4.0-10.0)
--- NOTE | 2021-02-07 06:06 | PC.NURSE ---
SHIFT SUMMARY Has rested well. Is pleasant and talks alot about going to [place] to live with his brother. Has received IV Dilaudid per request for pain in left foot. Dressing was changed tonight with Dakins 1/4% solution wet to dry packing/ABD's/Kerlex/Walter wrap. Betadine to the left heel and eschar wound on right stump. Has been repositioned several times. Incont urine X1 tonight. Due for hemodialysis today
[2021-02-07 06:16] LABS: Alanine Aminotransferase < 5 U/L (0-41); Alkaline Phosphatase 53 IU/L (40-130); Anion Gap 17.5 (5-19); Aspartate Amino Transferase 6 U/L (0-40); Blood Urea Nitrogen 34 mg/dL (8-23); Calcium 8.6 mg/dL (8.5-10.5); Carbon Dioxide 24 mmol/L (22-29); Chloride 98 mmol/L (98-107); Globulin 2.9 g/dL (1.3-4.6); Glucose 80 mg/dL (65-115); Magnesium 1.6 mg/dL (1.7-2.3); Osmolality Calculated 289 mOsm/kg (285-295); Phosphorus 3.7 mg/dL (2.5-4.5); Potassium 3.5 mmol/L (3.5-5.1); Sodium 136 mmol/L (136-145); Total Bilirubin 0.3 mg/dL (0.15-1.2); Total Protein 5.9 g/dL (6.6-8.7)
[2021-02-07 06:22] LABS: Vancomycin Random 17.3 ug/mL (20.0-40.0)
[2021-02-07 06:45] LABS: Glucose Point of Care 88 mg/dL (70-110)
--- NOTE | 2021-02-07 07:03 | P.PN_ITS ---
Subjective Subjective: Interval history: no new complaints. wants to go home. no n/v/f/c/lee/d/sob Medications: Reviewed: Yes Medication Review Details: Current Medications Acetaminophen (Acetaminophen 325 Mg Tablet) 650 mg PO Q6H PRN PRN Reason: Mild/Mod Pain Or Temp >/= 101 Ascorbic Acid (Ascorbic Acid 500 Mg Tablet) 500 mg PO DAILY@0800 [facility] Last Admin: 02/06/21 08:58 Dose: 500 mg Documented by: Atorvastatin Calcium (Atorvastatin 40 Mg Tablet) 40 mg PO DAILY@2000 [facility] Last Admin: 02/06/21 19:28 Dose: 40 mg Documented by: Bisacodyl (Bisacodyl 10 Mg Supp) 10 mg NC DAILY PRN PRN Reason: Constipation Dextrose (Dextrose 50% Syringe 50 Ml) 25 ml IVP ONCE PRN; Protocol PRN Reason: hypoglycemia protocol Dextrose (Dextrose 50% Syringe 50 Ml) 50 ml IVP PRN PRN; Protocol PRN Reason: hypoglycemia protocol Epoetin Pio (Epoetin Pio 10,000 Unit/Ml Inj) 10,000 unit SUBCUT ONCE ONE Stop: 02/07/21 07:31 Glucagon (Glucagon 1 Mg/Ml Inj 1 Ml) 1 mg IM ONCE PRN; Protocol PRN Reason: Adult Acute Hypoglycemia Prot. Hydromorphone HCl (Hydromorphone 1 Mg/Ml Inj 1 Ml) 0.5 mg IVP Q2H PRN PRN Reason: PAIN Last Admin: 02/06/21 22:41 Dose: 0.5 mg Documented by: Imipenem/Cilastatin Sodium 250 (mg/ Sodium Chloride) 100 mls @ 200 mls/hr IV Q12H [facility] Last Infusion: 02/07/21 01:11 Dose: Infused Documented by: Vancomycin HCl 1,000 mg/ (Sodium Chloride) 250 mls @ 250 mls/hr IV MoWeFr [facility] Last Infusion: 02/04/21 21:38 Dose: Infused Documented by: Dextrose (D5w) 500 mls @ 100 mls/hr IV ONCE PRN; Protocol PRN Reason: Adult Acute Hypoglycemia Prot Isosorbide Mononitrate (Isosorbide Mononitrate Er 30 Mg Tablet) 30 mg PO DAILY@0800 [facility] Last Admin: 02/06/21 09:00 Dose: 30 mg Documented by: Levetiracetam (Levetiracetam 500 Mg Tablet) 500 mg PO BID@799,1999 [facility] Last Admin: 02/06/21 19:28 Dose: 500 mg Documented by: Naloxone HCl (Naloxone 0.4 Mg/Ml Sdv) 0.1 mg IVP Q2M PRN PRN Reason: OPIATERV Non-Formulary Medication (Dakin's 1/4 Strength (0.125% ) 1 each TOPICAL DAILY [facility] Last Admin: 02/06/21 09:53 Dose: 1 each Documented by: Ondansetron HCl (Ondansetron 2 Mg/Ml Sdv 2 Ml) 4 mg IVP Q8H PRN PRN Reason: vomiting, or N/V if npo Pantoprazole Sodium (Pantoprazole Dr 40 Mg Tablet) 40 mg PO BID@ [facility] Last Admin: 02/06/21 19:28 Dose: 40 mg Documented by: Sacubitril/Valsartan (Sacubitril/Valsartan 24-26 Mg Tablet) 1 each PO BID@ [facility] Last Admin: 02/06/21 19:28 Dose: 1 each Documented by: Senna/Docusate Sodium (Sennosides-Docusate Tablet) 1 tab PO BID PRN PRN Reason: Constipation Sevelamer Carbonate (Sevelamer 800 Mg Tablet) 800 mg PO TID@,, [facility] Last Admin: 02/06/21 19:28 Dose: 800 mg Documented by: Vitals/I&O/Wt Last Vital Signs Temp 97.9 F 02/07/21 04:00 Pulse 82 02/07/21 04:00 Resp 17 02/07/21 04:00 BP 120/73 02/07/21 04:00 Pulse Ox 93 02/07/21 04:00 02/06/21 02/07/21 02/07/21 22:59 06:59 14:59 Intake Total 340 / 580 220 / 800 Balance 340 / 580 220 / 800 Physical Exam Narrative: EXAM NARRATIVE: Constitutional: Awake, comfortable in bed, NARD HEENT: nc/at, eomi, anicteric neck-supple, no jvp rt ij dialysis catheter Lungs: cta b/l CVS: S1 S2, RRR, no murmurs Abdo: Soft, NT, ND, + BS Ext 4: rt BKA, left foot bandage, poor pulse, no edema mood- okay Neurological: a,a, o x 3, moves all ext seen and examined w/ rN- telehealth visit Data : 02/07/21 05:11 02/07/21 05:11 A&P Additional A&P Information 1. ESRD Plan for dialysis today = 3 K, UF 1 L as jak by SBP Continue MWF schedule Dose medication for GFR less than 15 on dialysis 2. ESBL UTI Management per hospitalist team including management of antibiotics. please ensure that he has abx on d/c -currently primaxin. will need ertapenem at dialysis for 6 weeks from 02-02-21 - 3. acute on chronic wound with black eschar with active drainage on right BKA stump site, left lower extremity cellulitis and osteomyelitis and deep tissue infection -abx per medicine- Q if needs further OR for PAD. Consideration of BKA noted 4. Peripheral arterial disease, no blood flow below the left knee, underwent CSI arthrectomy of mid to distal left SFA and peroneal artery, followed by balloon angioplasty of peroneal artery, anterior tibial artery, mid to distal left SFA -may need a BKA per medicine and surgery 5. anemia- iron sat- 32%, ferritin 1701- no iv iron, use, epo- may need prbc tx if hgb drops further 6. DM control 7. CAD s/p CABG- medicine note appreciated- may need cath 8. phos controlled. pth 102.6- no vit d analouge 9. elevated BNP- gently remove fluids on dialysis 10. bp -low d/c norvasc Patient seen and examined via telemedicine, with the assistance of the bedside RN >30 min spent in evaluation and mgmt of patient Attestations Medical Necessity Statement*: esrd, per medicine Time Spent in Patient Care: 16 - 35 minutes Coding Level of Care Code Acute [employer] In[employer] for [facility]
[2021-02-07] MEDS: HYDROmorphone 1 mg/mL INJ 1 mL 0.5 MG IVP ×5 (10:12→21:44)
[2021-02-07] MEDS: epoetin alfa 10,000 unit/mL INJ 10000 UNIT SUBCUT (10:16)
[2021-02-07 11:45] LABS: Glucose Point of Care 89 mg/dL (70-110)
[2021-02-07] MEDS: levETIRAcetam 500 mg Tablet PO ×2 (14:03→21:37)
[2021-02-07] MEDS: ascorbic acid 500 mg Tablet PO (14:03)
[2021-02-07] MEDS: sacubitril/valsartan 24-26 mg Tablet 1 EACH PO ×2 (14:04→21:37)
[2021-02-07] MEDS: isosorbide mononitrate ER 30 mg Tablet PO (14:04)
[2021-02-07] MEDS: sevelamer 800 mg Tablet PO ×2 (14:04→21:36)
[2021-02-07] MEDS: pantoprazole DR 40 mg Tablet PO ×2 (14:05→21:37)
[2021-02-07 17:34] LABS: Glucose Point of Care 103 mg/dL (70-110)
[2021-02-07 20:35] LABS: Glucose Point of Care 112 mg/dL (70-110)
--- NOTE | 2021-02-07 21:04 | PM.PN ---
Subjective Subjective: Interval history: States he wants to go home. PICC line could not be obtained on Sunday. Tentatively reattempt planned for today, although had not had it so far. His brother today tells me that patient does not intend to stay in town and go back to halfway. They intend to fly to [place] this Sunday, that he will not be staying in the state. He states has so far arranged dialysis for February 14. Discussed with him, plans will need to be made with regards to antibiotic infusions. He intends to work with case management to make sure these are set up. Vitals/I&O/Wt Last Vital Signs Temp 99.0 F 02/07/21 20:00 Pulse 82 02/07/21 20:00 Resp 20 H 02/07/21 20:00 BP 134/68 02/07/21 20:00 Pulse Ox 96 02/07/21 20:00 02/07/21 02/07/21 02/07/21 06:59 14:59 22:59 Intake Total 220 / 800 420 / 420 100 / 520 Output Total 1300 / 1300 Balance 220 / 800 -880 / -880 100 / -780 Weight last 48 hrs Weight 79.6 kg Physical Exam Const: COMMON NORMALS: no acute distress and patient oriented x3 HENMT: COMMON NORMALS: oropharynx normal Neck/C-Spine: COMMON NORMALS: no JVD Resp: COMMON NORMALS: normal respiratory effort and clear to auscultation bilaterally AUSCULTATION: clear to auscultation bilaterally Cardio: COMMON NORMALS: no JVD, regular rhythm, S1 normal heart sound present, S2 normal heart sound present and No murmurs present (Cardio) RHYTHM: regular rhythm HEART SOUNDS: S1 normal heart sound present and S2 normal heart sound present GI: COMMON NORMALS: Normal to inspection, nondistended, normoactive bowel sounds present, Soft to palpation and non-tender PALPATION: Yes Soft to palpation Extremity: COMMON NORMALS: no joint enlargement and no pedal edema OTHER: Clean dressing left foot. No surrounding erythema, swelling. Right BKA. Neuro: COMMON NORMALS: patient oriented x3 and moves all extremities Skin: COMMON NORMALS: no rashes or lesions noted GENERAL SKIN EXAM: no rashes or lesions noted Data : 02/07/21 05:11 02/07/21 05:11 A&P Assessment and plan (1) Osteomyelitis of left lower extremity: Continue Primaxin, vancomycin. Brother and case management to work together to make sure he is able to have continued IV antibiotic infusions upon moved to [place] as the brother is telling me today he is a concrete plan for this Sunday. Will need 6 weeks of antibiotics with plans for ertapenem every 24 hours, vancomycin with dialysis, however, brother is aware confirmation needs to be made that antibiotics can be infused with dialysis at the center they are moving care to. Pending attempt for additional IV access as PICC line was unsuccessful on Sunday, additional reattempt has been requested, if unsuccessful consideration may need to be given to port. Status: Acute (2) Chronic wound of extremity: -Requires medical optimization before surgery, has had a positive stress test, sonogram shows EF of 30 to 35%, will require cardiac evaluation before surgery Status: Acute (3) Acute encephalopathy: -Acute encephalopathy has resolved, alert oriented x3, follows commands -Multiple sources of infection include cellulitis, acute on chronic wound with black eschar with active drainage on right BKA stump site, left lower extremity cellulitis and osteomyelitis and deep tissue infection CT scan shows -1. Interval appearance of lytic bone destruction along the lateral cortex of the lateral malleolus consistent with osteomyelitis. 2. Interval appearance of soft tissue thickening over the lateral malleolus consistent with possible soft tissue callus or phlegmon. 3. Interval appearance of mild soft tissue ulceration superior to the level of the osteomyelitis/phlegmon in the region of the distal fibular shaft or proximal lateral malleolus. 4. Interval appearance of lytic bone destruction in the head and neck of the 5th metatarsus and cortical destruction in the base of the little toe proximal phalanx consistent with osteomyelitis. 5. Interval appearance of soft tissue emphysema throughout the left little toe from tip of the toe through the head and neck of the metatarsus area consistent with necrotizing fasciitis. 6. Continued soft tissue swelling in the forefoot consistent with cellulitis. -Also with cystitis -Has a history of ESBL, VRE -Status post amputation of left fifth toe and sharp debridement of left lateral malleolus -Consult nutrition Status: Acute (4) Cellulitis: Status: Acute (5) Cystitis: ESBL E. coli, completed antibiotic course. Status: Acute (6) Peripheral arterial disease: Status: Acute (7) Anemia: Status: Acute (8) ESRD (end stage renal disease): Status: Acute (9) HTN (hypertension): Status: Acute (10) Pseudoaneurysm following procedure: Status: Acute (11) CHF (congestive heart failure): Status: Acute Qualifiers: Heart failure chronicity: chronic Heart failure type: combined systolic and diastolic Qualified Code(s): I50.42 - Chronic combined systolic (congestive) and diastolic (congestive) heart failure Additional A&P Information End-stage renal disease, nephrology consulted, dialysis Peripheral arterial disease, no blood flow below the left knee, underwent CSI arthrectomy of mid to distal left SFA and peroneal artery, followed by balloon angioplasty of peroneal artery, anterior tibial artery, mid to distal left SFA Pseudoaneurysm after procedure as above, requiring 1 unit PRBC, aspirin Plavix on hold, ultrasound shows stability CAD, CABG in 2012, aspirin and Plavix on hold due to to pseudoaneurysm Type 2 diabetes mellitus, diet controlled, low-dose sliding scale Anemia, hemoglobin 8.8, continue to monitor NSTEMI, no complaints of chest pain, no clinically significant delta troponin, likely secondary end-stage renal disease, continue to monitor History of seizures, continue Keppra CHF, continue to monitor not in acute exacerbation Attestations Medical Necessity Statement*: Continue admission for assessment management of osteomyelitis of left lower extremity with ESBL organism and staphylococcal infection, arrangements for intravenous access, disposition planning given patient and his brother are planning for patient to move out of [facility] to [place] while requiring 6 weeks of intravenous antibiotic therapy. 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
[2021-02-07] MEDS: vancomycin 1,000 MG in sodium chloride 0.9% 250 ML 250 MG IV (21:37)
[2021-02-07] MEDS: atorvastatin 40 mg Tablet PO (21:37)
[2021-02-08] VITALS (11 sets, daily range): BP systolic 120–156; BP diastolic 61–84; PULSE 68–91; RESP 14–20; TEMP 36.8–37.3; O2SAT 91–97
[2021-02-08] MEDS: HYDROmorphone 1 mg/mL INJ 1 mL 0.5 MG IVP ×5 (02:27→21:46)
[2021-02-08 06:38] LABS: Glucose Point of Care 92 mg/dL (70-110)
--- NOTE | 2021-02-08 08:15 | P.PN_ITS ---
Subjective Subjective: Interval history: wants to go home. tolerated HD yesterday. no n/v/f/c/lee/d/sob. not able to get a picc line Medications: Reviewed: Yes Medication Review Details: Current Medications Acetaminophen (Acetaminophen 325 Mg Tablet) 650 mg PO Q6H PRN PRN Reason: Mild/Mod Pain Or Temp >/= 101 Ascorbic Acid (Ascorbic Acid 500 Mg Tablet) 500 mg PO DAILY@0800 [facility] Last Admin: 02/07/21 14:03 Dose: 500 mg Documented by: Atorvastatin Calcium (Atorvastatin 40 Mg Tablet) 40 mg PO DAILY@1999 [facility] Last Admin: 02/07/21 21:37 Dose: 40 mg Documented by: Bisacodyl (Bisacodyl 10 Mg Supp) 10 mg [place] DAILY PRN PRN Reason: Constipation Dextrose (Dextrose 50% Syringe 50 Ml) 25 ml IVP ONCE PRN; Protocol PRN Reason: hypoglycemia protocol Dextrose (Dextrose 50% Syringe 50 Ml) 50 ml IVP PRN PRN; Protocol PRN Reason: hypoglycemia protocol Glucagon (Glucagon 1 Mg/Ml Inj 1 Ml) 1 mg IM ONCE PRN; Protocol PRN Reason: Adult Acute Hypoglycemia Prot. Hydromorphone HCl (Hydromorphone 1 Mg/Ml Inj 1 Ml) 0.5 mg IVP Q2H PRN PRN Reason: PAIN Last Admin: 02/08/21 02:27 Dose: 0.5 mg Documented by: Imipenem/Cilastatin Sodium 250 (mg/ Sodium Chloride) 100 mls @ 200 mls/hr IV Q12H [facility] Last Infusion: 02/08/21 01:10 Dose: Infused Documented by: Vancomycin HCl 1,000 mg/ (Sodium Chloride) 250 mls @ 250 mls/hr IV MoWeFr [facility] Last Infusion: 02/07/21 23:26 Dose: Infused Documented by: Dextrose (D5w) 500 mls @ 100 mls/hr IV ONCE PRN; Protocol PRN Reason: Adult Acute Hypoglycemia Prot Isosorbide Mononitrate (Isosorbide Mononitrate Er 30 Mg Tablet) 30 mg PO DAILY @0800 [facility] Last Admin: 02/07/21 14:04 Dose: 30 mg Documented by: Levetiracetam (Levetiracetam 500 Mg Tablet) 500 mg PO BID@0800,1999 [facility] Last Admin: 02/07/21 21:37 Dose: 500 mg Documented by: Naloxone HCl (Naloxone 0.4 Mg/Ml Sdv) 0.1 mg IVP Q2M PRN PRN Reason: OPIATERV Non-Formulary Medication (Dakin's 1/4 Strength (0.125% ) 1 each TOPICAL DAILY [facility] Last Admin: 02/07/21 15:55 Dose: 1 each Documented by: Ondansetron HCl (Ondansetron 2 Mg/Ml Sdv 2 Ml) 4 mg IVP Q8H PRN PRN Reason: vomiting, or N/V if npo Pantoprazole Sodium (Pantoprazole Dr 40 Mg Tablet) 40 mg PO BID@ [facility] Last Admin: 02/07/21 21:37 Dose: 40 mg Documented by: Sacubitril/Valsartan (Sacubitril/Valsartan 24-26 Mg Tablet) 1 each PO BID@ [facility] Last Admin: 02/07/21 21:37 Dose: 1 each Documented by: Senna/Docusate Sodium (Sennosides-Docusate Tablet) 1 tab PO BID PRN PRN Reason: Constipation Sevelamer Carbonate (Sevelamer 800 Mg Tablet) 800 mg PO TID@,, [facility] Last Admin: 02/07/21 21:36 Dose: 800 mg Documented by: Vitals/I&O/Wt Last Vital Signs Temp 99.1 F 02/08/21 04:00 Pulse 72 02/08/21 04:00 Resp 20 H 02/08/21 04:00 BP 120/62 02/08/21 04:00 Pulse Ox 94 02/08/21 04:00 02/07/21 02/08/21 02/08/21 22:59 06:59 14:59 Intake Total 100 / 520 350 / 870 Output Total 0 / 1300 Balance 100 / -780 350 / -430 Weight last 48 hrs Weight 79.6 kg Physical Exam Narrative: EXAM NARRATIVE: Constitutional: Awake, comfortable in bed, NARD HEENT: nc/at, eomi, anicteric neck-supple, no jvp rt ij dialysis catheter Lungs: cta b/l CVS: S1 S2, RRR, no murmurs Abdo: Soft, NT, ND, + BS Ext 4: rt BKA, left foot bandage, poor pulse, no edema mood- okay Neurological: a,a, o x 3, moves all ext seen and examined w/ rN- telehealth visit Data : 02/07/21 05:11 02/07/21 05:11 A&P Additional A&P Information 1. ESRD - HD MWF Plan for dialysis tomorrow = 3 K, UF 1.5 L as jak by SBP Continue MWF schedule Dose medication for GFR less than 15 on dialysis 2. ESBL UTI Management per hospitalist team including management of antibiotics. please ensure that he has abx on d/c -currently primaxin. -was not able to get a picc line -please ensure that dialysis center will give him his 6 weeks of abx from 02-02-21 3. acute on chronic wound with black eschar with active drainage on right BKA stump site, left lower extremity cellulitis and osteomyelitis and deep tissue infection -abx per medicine- Q if needs further OR for PAD. Consideration of BKA noted 4. Peripheral arterial disease, no blood flow below the left knee, underwent CSI arthrectomy of mid to distal left SFA and peroneal artery, followed by balloon angioplasty of peroneal artery, anterior tibial artery, mid to distal left SFA -may need a BKA per medicine and surgery 5. anemia- iron sat- 32%, ferritin 1701- no iv iron, use, epo- may need prbc tx if hgb drops further 6. DM control 7. CAD s/p CABG- medicine note appreciated- may need cath 8. phos controlled. pth 102.6- no vit d analouge 9. elevated BNP- gently remove fluids on dialysis 10. bp -low d/c norvasc Patient seen and examined via telemedicine, with the assistance of the bedside RN 25 min spent in evaluation and mgmt of patient Attestations Medical Necessity Statement*: infection per medicine Time Spent in Patient Care: 16 - 35 minutes Coding Level of Care Code Acute Lean Specialist for Brandy Sanchez
[2021-02-08] MEDS: isosorbide mononitrate ER 30 mg Tablet PO (08:45)
[2021-02-08] MEDS: sacubitril/valsartan 24-26 mg Tablet 1 EACH PO ×2 (08:45→20:43)
[2021-02-08] MEDS: ascorbic acid 500 mg Tablet PO (08:45)
[2021-02-08] MEDS: levETIRAcetam 500 mg Tablet PO ×2 (08:45→20:43)
[2021-02-08] MEDS: sevelamer 800 mg Tablet PO ×3 (08:45→20:43)
[2021-02-08] MEDS: pantoprazole DR 40 mg Tablet PO ×2 (08:45→20:43)
[2021-02-08 11:58] LABS: Glucose Point of Care 102 mg/dL (70-110)
--- NOTE | 2021-02-08 15:35 | P.PN_ITS ---
Subjective Subjective: Interval history: Tiline worn out after dialysis. Denies trouble breathing. No chest pain. Vitals/I&O/Wt Last Vital Signs Temp 98.4 F 02/08/21 11:26 Pulse 73 02/08/21 11:26 Resp 14 02/08/21 11:38 BP 137/62 02/08/21 11:26 Pulse Ox 95 02/08/21 11:26 02/08/21 02/08/21 02/08/21 06:59 14:59 22:59 Intake Total 350 / 870 100 / 100 Output Total 0 / 1300 Balance 350 / -430 100 / 100 Weight last 48 hrs Weight 79.6 kg Physical Exam Const: COMMON NORMALS: no acute distress and patient oriented x3 GENERAL APPEARANCE: frail appearing HENMT: COMMON NORMALS: oropharynx normal Neck/C-Spine: COMMON NORMALS: no JVD Resp: COMMON NORMALS: normal respiratory effort and clear to auscultation bilaterally AUSCULTATION: clear to auscultation bilaterally Cardio: COMMON NORMALS: no JVD, regular rhythm, S1 normal heart sound present, S2 normal heart sound present and No murmurs present (Cardio) RHYTHM: regular rhythm HEART SOUNDS: S1 normal heart sound present and S2 normal heart sound present GI: COMMON NORMALS: Normal to inspection, nondistended, normoactive bowel soun ds present, Soft to palpation and non-tender PALPATION: Yes Soft to palpation Extremity: COMMON NORMALS: no joint enlargement and no pedal edema OTHER: Black eschar/dry gangrene surrounding lat foot wound/old 5th digit amputation, 5cm ulceration L lat ankle, DTI entire left heel. Right BKA w 1.5 cm ulceration, surrounding cellulitis of stump. Neuro: COMMON NORMALS: patient oriented x3 and moves all extremities Skin: COMMON NORMALS: no rashes or lesions noted GENERAL SKIN EXAM: no rashes or lesions noted Data : 02/07/21 05:11 02/07/21 05:11 A&P Assessment and plan (1) Osteomyelitis of left lower extremity: Continue Primaxin, vancomycin. Case management working with brother with regards to arrangements for continued antibiotic therapy after their planned moved to [place]. Will need 6 weeks of antibiotics with plans for ertapenem every 24 hours, vancomycin with dialysis, however, brother is aware confirmation needs to be made that antibiotics can be infused with dialysis at the center they are moving care to. There is high likelihood he will need a BKA amputation once nutritional status optimized as per surgery. Pending attempt for additional IV access as PICC line was unsuccessful on Sunday, additional reattempt has been requested, if unsuccessful consideration may need to be given to port. Status: Acute (2) Chronic wound of extremity: -Requires medical optimization before surgery, has had a positive stress test, sonogram shows EF of 30 to 35%, will require cardiac evaluation before surgery Status: Acute (3) Acute encephalopathy: -Acute encephalopathy has resolved, alert oriented x3, follows commands -Multiple sources of infection include cellulitis, acute on chronic wound with black eschar with active drainage on right BKA stump site, left lower extremity cellulitis and osteomyelitis and deep tissue infection CT scan shows -1. Interval appearance of lytic bone destruction along the lateral cortex of the lateral malleolus consistent with osteomyelitis. 2. Interval appearance of soft tissue thickening over the lateral malleolus consistent with possible soft tissue callus or phlegmon. 3. Interval appearance of mild soft tissue ulceration superior to the level of the osteomyelitis/phlegmon in the region of the distal fibular shaft or proximal lateral malleolus. 4. Interval appearance of lytic bone destruction in the head and neck of the 5th metatarsus and cortical destruction in the base of the little toe proximal phalanx consistent with osteomyelitis. 5. Interval appearance of soft tissue emphysema throughout the left little toe from tip of the toe through the head and neck of the metatarsus area consistent with necrotizing fasciitis. 6. Continued soft tissue swelling in the forefoot consistent with cellulitis. 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 Recommendations appreciated. Continue Nepro, increase to 3 times daily if tolerating. Status: Acute (4) Cellulitis: Of right stump, continue antibiotics. Noted ulceration. No drainable abscess or fluid collection on ultrasound 02/01. Status: Acute (5) Cystitis: ESBL E. coli, completed antibiotic course. Status: Acute (6) Peripheral arterial disease: Status: Acute (7) Anemia: Status: Acute (8) ESRD (end stage renal disease): Status: Acute (9) HTN (hypertension): Status: Acute (10) Pseudoaneurysm following procedure: Status: Acute (11) CHF (congestive heart failure): Status: Acute Qualifiers: Heart failure chronicity: chronic Heart failure type: combined systolic and diastolic Qualified Code(s): I50.42 - Chronic combined systolic (congestive) and diastolic (congestive) heart failure Additional A&P Information End-stage renal disease, nephrology consulted, dialysis Peripheral arterial disease, no blood flow below the left knee, underwent CSI arthrectomy of mid to distal left SFA and peroneal artery, followed by balloon angioplasty of peroneal artery, anterior tibial artery, mid to distal left SFA Pseudoaneurysm after procedure as above, requiring 1 unit PRBC, aspirin Plavix on hold, ultrasound shows stability CAD, CABG in 2013, aspirin and Plavix on hold due to to pseudoaneurysm Type 2 diabetes mellitus, diet controlled, low-dose sliding scale Anemia, trend hemoglobin down to 8. Reassess CBC. NSTEMI, no complaints of chest pain, no clinically significant delta troponin, likely secondary end-stage renal disease, continue to monitor History of seizures, continue Keppra CHF, continue to monitor not in acute exacerbation Attestations Medical Necessity Statement*: Continue antibiotics given change of plan by patient and family to move to [place] with required continued intravenous antibiotics for soft tissue infection with nonhealing wounds of left lower extremity, osteomyelitis, pending planning for him to be able to continue IV antibiotics after the move on Sunday as well as resume follow-up with wound care, surgery for further consideration of BKA amputation. Coding Level of Care Code Acute Nurse Informaticist for [facility] Fwd Exam Comprehensive Diagnoses Osteomyelitis of left lower extremity M86.9 Chronic wound of extremity Acute encephalopathy G93.40 Cellulitis L03.90 Cystitis N30.90 Peripheral arterial disease I73.9 Anemia D64.9 ESRD (end stage renal disease) N18.6 HTN (hypertension) I10 Pseudoaneurysm following procedure T81.718A; I72.9 CHF (congestive heart failure) I50.42 Heart failure chronicity: chronic Heart failure type: combined systolic and diastolic
[2021-02-08 17:24] LABS: Glucose Point of Care 161 mg/dL (70-110)
[2021-02-08] MEDS: atorvastatin 40 mg Tablet PO (20:43)
--- NOTE | 2021-02-08 20:46 | PC.NURSE ---
nurse informed patient that meds are going to be given to him and patient stated okay, that time again , patient refused all meds after scanned and opened unless breakfast is given to him first. patient made aware that breakfast is not available other food is offered, patient continued to refuse all meds.
[2021-02-08 21:00] LABS: Glucose Point of Care 129 mg/dL (70-110)
[2021-02-09] VITALS (9 sets, daily range): BP systolic 114–158; BP diastolic 56–80; PULSE 66–95; RESP 15–18; TEMP 36.2–37.2; O2SAT 94–97
[2021-02-09] MEDS: HYDROmorphone 1 mg/mL INJ 1 mL 0.5 MG IVP (02:49)
[2021-02-09 06:03] LABS: Basophils # 0.1 10^3/uL (0.0-0.1); Basophils % 0.7 %; Eosinophils # 0.3 10^3/uL (0.0-0.8); Hematocrit 26.3 % (42.0-52.0); Hemoglobin 8.3 g/dL (11.7-16.6); Lymphocytes # 0.9 10^3/uL (0.8-4.8); Lymphocytes % 13.1 %; Mean Corpuscular HGB Conc 31.6 g/dL (30.0-36.0); Mean Corpuscular Hemoglobin 31.3 pg (28.0-34.0); Mean Corpuscular Volume 99.2 fl (80-94); Mean Platelet Volume 9.2 fL (7.4-10.4); Monocytes # 0.7 10^3/uL (0.2-0.9); Monocytes % 10.2 %; Neutrophils # 4.95 10^3/uL (1.8-7.7); Neutrophils % 71.6 %; Nucleated Red Blood Cells % 0 %; Platelet Count 232 10^3/cmm (130-400); Red Blood Count 2.65 10^6/uL (4.1-5.3); Red Cell Distribution Width 13.4 % (12.1-15.1); White Blood Count 6.9 10^3/uL (4.0-10.0)
[2021-02-09 06:19] LABS: Anion Gap 14.4 (5-19); Blood Urea Nitrogen 27 mg/dL (8-23); Calcium 8.5 mg/dL (8.5-10.5); Carbon Dioxide 26 mmol/L (22-29); Chloride 102 mmol/L (98-107); Glucose 119 mg/dL (65-115); Magnesium 1.6 mg/dL (1.7-2.3); Osmolality Calculated 294 mOsm/kg (285-295); Phosphorus 2.4 mg/dL (2.5-4.5); Potassium 3.4 mmol/L (3.5-5.1); Sodium 139 mmol/L (136-145)
[2021-02-09 06:36] LABS: Glucose Point of Care 133 mg/dL (70-110)
[2021-02-09 06:39] LABS: Vancomycin Trough 23.4 ug/mL (10-15)
--- NOTE | 2021-02-09 07:30 | PM.PN ---
Subjective Subjective: Interval history: c/o back pain/ itching. mood improving. no n/v/f/c/lee/d/leg pain improved. no sob. wants to go home. Medications: Reviewed: Yes Medication Review Details: Current Medications Acetaminophen (Acetaminophen 325 Mg Tablet) 650 mg PO Q6H PRN PRN Reason: Mild/Mod Pain Or Temp >/= 101 Ascorbic Acid (Ascorbic Acid 500 Mg Tablet) 500 mg PO DAILY@0800 [facility] Last Admin: 02/08/21 08:45 Dose: 500 mg Documented by: Atorvastatin Calcium (Atorvastatin 40 Mg Tablet) 40 mg PO DAILY@1999 [facility] Last Admin: 02/08/21 20:43 Dose: 40 mg Documented by: Bisacodyl (Bisacodyl 10 Mg Supp) 10 mg [place] DAILY PRN PRN Reason: Constipation Dextrose (Dextrose 50% Syringe 50 Ml) 25 ml IVP ONCE PRN; Protocol PRN Reason: hypoglycemia protocol Dextrose (Dextrose 50% Syringe 50 Ml) 50 ml IVP PRN PRN; Protocol PRN Reason: hypoglycemia protocol Glucagon (Glucagon 1 Mg/Ml Inj 1 Ml) 1 mg IM ONCE PRN; Protocol PRN Reason: Adult Acute Hypoglycemia Prot. Hydromorphone HCl (Hydromorphone 1 Mg/Ml Inj 1 Ml) 0.5 mg IVP Q2H PRN PRN Reason: PAIN Last Admin: 02/09/21 02:49 Dose: 0.5 mg Documented by: Imipenem/Cilastatin Sodium 250 (mg/ Sodium Chloride) 100 mls @ 200 mls/hr IV Q12H [facility] Last Infusion: 02/09/21 00:57 Dose: Infused Documented by: Vancomycin HCl 1,000 mg/ (Sodium Chloride) 250 mls @ 250 mls/hr IV MoWeFr [facility] Last Infusion: 02/07/21 23:26 Dose: Infused Documented by: Dextrose (D5w) 500 mls @ 100 mls/hr IV ONCE PRN; Protocol PRN Reason: Adult Acute Hypoglycemia Prot Isosorbide Mononitrate (Isosorbide Mononitrate Er 30 Mg Tablet) 30 mg PO DAILY@0800 [facility] Last Admin: 02/08/21 08:45 Dose: 30 mg Documented by: Levetiracetam (Levetiracetam 500 Mg Tablet) 500 mg PO BID@799,1999 [facility] Last Admin: 02/08/21 20:43 Dose: 500 mg Documented by: Naloxone HCl (Naloxone 0.4 Mg/Ml Sdv) 0.1 mg IVP Q2M PRN PRN Reason: OPIATERV Non-Formulary Medication (Dakin's 1/4 Strength (0.125% ) 1 each TOPICAL DAILY [facility] Last Admin: 02/08/21 11:38 Dose: 1 each Documented by: Ondansetron HCl (Ondansetron 2 Mg/Ml Sdv 2 Ml) 4 mg IVP Q8H PRN PRN Reason: vomiting, or N/V if npo Pantoprazole Sodium (Pantoprazole Dr 40 Mg Tablet) 40 mg PO BID@,20 [facility] Last Admin: 02/08/21 20:43 Dose: 40 mg Documented by: Sacubitril/Valsartan (Sacubitril/Valsartan 24-26 Mg Tablet) 1 each PO BID@, [facility] Last Admin: 02/08/21 20:43 Dose: 1 each Documented by: Senna/Docusate Sodium (Sennosides-Docusate Tablet) 1 tab PO BID PRN PRN Reason: Constipation Sevelamer Carbonate (Sevelamer 800 Mg Tablet) 800 mg PO TID@,,20 [facility] Last Admin: 02/08/21 20:43 Dose: 800 mg Documented by: Vitals/I&O/Wt Last Vital Signs Temp 98.0 F 02/09/21 07:19 Pulse 66 02/09/21 07:19 Resp 16 02/09/21 07:19 BP 151/62 02/09/21 07:19 Pulse Ox 95 02/09/21 07:19 02/08/21 02/09/21 02/09/21 22:59 06:59 14:59 Intake Total 100 / 200 Output Total 480 / 480 Balance -380 / -280 Weight last 48 hrs Weight 79.6 kg Physical Exam Narrative: EXAM NARRATIVE: Constitutional: Awake, comfortable in bed, NARD HEENT: nc/at, eomi, anicteric neck-supple, no jvp rt ij dialysis catheter Lungs: cta b/l CVS: S1 S2, RRR, no murmurs Abdo: Soft, NT, ND, + BS Ext 4: rt BKA, left foot bandage, poor pulse, no edema mood- okay Neurological: a,a, o x 3, moves all ext seen and examined w/ rN- telehealth visit Data : 02/09/21 05:24 02/09/21 05:24 A&P Additional A&P Information 1. ESRD - HD MWF Plan for dialysis today = 3 -4 K, UF 1.5 L as jak by SBP Continue MWF schedule Dose medication for GFR less than 15 on dialysis -replace k and mag 2. ESBL UTI Management per hospitalist team including management of antibiotics. please ensure that he has abx on d/c -currently primaxin. -was not able to get a picc line -please ensure that dialysis center will give him his 6 weeks of abx from 02-02- -check vanco level- to keep trough under 20 - today is 23-HOLD VANCO 3. acute on chronic wound with black eschar with active drainage on right BKA stump site, left lower extremity cellulitis and osteomyelitis and deep tissue infection -abx per medicine- Q if needs further OR for PAD. Consideration of BKA noted 4. Peripheral arterial disease, no blood flow below the left knee, underwent CSI arthrectomy of mid to distal left SFA and peroneal artery, followed by balloon angioplasty of peroneal artery, anterior tibial artery, mid to distal left SFA -may need a BKA per medicine and surgery 5. anemia- iron sat- 32%, ferritin 1701- no iv iron, use, epo- 6. DM control 7. CAD s/p CABG- medicine note appreciated- may need cath 8. phos controlled. pth 102.6- no vit d analouge -dec binder 9. elevated BNP- gently remove fluids on dialysis 10. bp -low d/c [facility] Patient seen and examined via telemedicine, with the assistance of the bedside RN 30 min spent in evaluation and mgmt of patient Attestations Medical Necessity Statement*: Per medicine Time Spent in Patient Care: 16 - 35 minutes Coding Level of Care Code Acute Commercial Interior Designer for Brandy Sanchez
[2021-02-09] MEDS: levETIRAcetam 500 mg Tablet PO ×2 (08:20→20:29)
[2021-02-09] MEDS: ascorbic acid 500 mg Tablet PO (08:21)
[2021-02-09] MEDS: pantoprazole DR 40 mg Tablet PO ×2 (08:21→20:29)
[2021-02-09] MEDS: isosorbide mononitrate ER 30 mg Tablet PO (08:21)
[2021-02-09] MEDS: sacubitril/valsartan 24-26 mg Tablet 1 EACH PO ×2 (08:21→20:32)
[2021-02-09] MEDS: epoetin alfa 10,000 unit/mL INJ 10000 UNIT SUBCUT (10:09)
[2021-02-09] MEDS: heparin, porcine 1,000 unit/mL INJ 10 mL 10000 UNIT HE (10:18)
[2021-02-09] MEDS: potassium chloride ER 20 mEq Tablet PO (10:18)
[2021-02-09 12:04] LABS: Glucose Point of Care 158 mg/dL (70-110)
[2021-02-09] MEDS: acetaminophen 325 mg Tablet 650 MG PO ×2 (12:06→17:49)
--- NOTE | 2021-02-09 12:48 | P.PN_ITS ---
Subjective Subjective: Interval history: Denies any changes from yesterday. States he is doing okay until I woke him up. Denies pain or discomfort. No chest pain or trouble breathing. Vitals/I&O/Wt Last Vital Signs Temp 97.5 F L 02/09/21 12:28 Pulse 74 02/09/21 12:28 Resp 16 02/09/21 12:28 BP 124/56 02/09/21 12:28 Pulse Ox 95 02/09/21 07:19 02/08/21 02/09/21 02/09/21 22:59 06:59 14:59 Intake Total 100 / 200 172 / 172 Output Total 480 / 480 Balance -380 / -280 172 / 172 Weight last 48 hrs Weight 79.6 kg Physical Exam Const: COMMON NORMALS: no acute distress and patient oriented x3 GENERAL APPEARANCE: frail appearing HENMT: COMMON NORMALS: oropharynx normal Neck/C-Spine: COMMON NORMALS: no JVD Resp: COMMON NORMALS: normal respiratory effort and clear to auscultation bilaterally AUSCULTATION: clear to auscultation bilaterally Cardio: COMMON NORMALS: no JVD, regular rhythm, S1 normal heart sound present, S2 normal heart sound present and No murmurs present (Cardio) RHYTHM: regular rhythm HEART SOUNDS: S1 normal heart sound present and S2 normal heart sound present GI: COMMON NORMALS: Normal to inspection, nondistended, normoactive bowel sounds present, Soft to palpation and non-tender PALPATION: Yes Soft to palpa tion Extremity: COMMON NORMALS: no joint enlargement and no pedal edema OTHER: Dressing L foot, ankle. Neuro: COMMON NORMALS: patient oriented x3 and moves all extremities Skin: COMMON NORMALS: no rashes or lesions noted GENERAL SKIN EXAM: no rashes or lesions noted Data : 02/09/21 05:24 02/09/21 05:24 A&P Assessment and plan (1) Osteomyelitis of left lower extremity: Continue Primaxin, vancomycin. Black eschar/dry gangrene surrounding lat foot wound/old 5th digit amputation, 5cm ulceration L lat ankle, DTI entire left heel. Right BKA w 1.5 cm ulceration, surrounding cellulitis of stump. Case management having difficult time reaching the brother and obtaining inf ormation on hemodialysis center. Finally able to reach the center, and it appears he will have a seat for hemodialysis on 02/15. With difficulties encountered so far even just making sure that this is set up and that he can have his vancomycin with dialysis, would anticipate significant difficulties with arranging for daily IV infusions with ertapenem, which would be interrupted also during the move. It may be suboptimal, possibly not as reliable, but consideration may be given to treatment with hemodialysis with both vancomycin and ertapenem as less preferred choice, but given decision to pursue the move, may be more easily achievable until he can reestablish care in [place], at which time this can be reassessed again and possibly adjusted. Will need 6 weeks of antibiotics. There is high likelihood he will need a BKA amputation once nutritional status optimized as per surgery. Will need to establish follow-up in [place]. Status: Acute (2) Chronic wound of extremity: -Requires medical optimization before surgery, has had a positive stress test, sonogram shows EF of 30 to 35%, will require cardiac evaluation before surgery Status: Acute (3) Acute encephalopathy: -Acute encephalopathy has resolved, alert oriented x3, follows commands -Multiple sources of infection include cellulitis, acute on chronic wound with black eschar with active drainage on right BKA stump site, left lower extremity cellulitis and osteomyelitis and deep tissue infection CT scan shows -1. Interval appearance of lytic bone destruction along the lateral cortex of the lateral malleolus consistent with osteomyelitis. 2. Interval appearance of soft tissue thickening over the lateral malleolus consistent with possible soft tissue callus or phlegmon. 3. Interval appearance of mild soft tissue ulceration superior to the level of the osteomyelitis/phlegmon in the region of the distal fibular shaft or proximal lateral malleolus. 4. Interval appearance of lytic bone destruction in the head and neck of the 5th metatarsus and cortical destruction in the base of the little toe proximal phalanx consistent with osteomyelitis. 5. Interval appearance of soft tissue emphysema throughout the left little toe from tip of the toe through the head and neck of the metatarsus area consistent with necrotizing fasciitis. 6. Continued soft tissue swelling in the forefoot consistent with cellulitis. 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 Recommendations appreciated. Continue Nepro, increase to 3 times daily if tolerating. Status: Acute (4) Cellulitis: Of right stump, continue antibiotics. Noted ulceration. No drainable abscess or fluid collection on ultrasound 02/01. Status: Acute (5) Cystitis: ESBL E. coli, completed antibiotic course. Status: Acute (6) Peripheral arterial disease: Status: Acute (7) Anemia: Status: Acute (8) ESRD (end stage renal disease): Status: Acute (9) HTN (hypertension): Status: Acute (10) Pseudoaneurysm following procedure: Status: Acute (11) CHF (congestive heart failure): Status: Acute Qualifiers: Heart failure chronicity: chronic Heart failure type: combined systolic and diastolic Qualified Code(s): I50.42 - Chronic combined systolic (congestive) and diastolic (congestive) heart failure Additional A&P Information End-stage renal disease, nephrology consulted, dialysis Peripheral arterial disease, no blood flow below the left knee, underwent CSI arthrectomy of mid to distal left SFA and peroneal artery, followed by balloon angioplasty of peroneal artery, anterior tibial artery, mid to distal left SFA Pseudoaneurysm after procedure as above, requiring 1 unit PRBC, aspirin Plavix on hold, ultrasound shows stability CAD, CABG in 2012, aspirin and Plavix on hold due to to pseudoaneurysm Type 2 diabetes mellitus, diet controlled, low-dose sliding scale Anemia, trend hemoglobin down to 8. Reassess CBC. NSTEMI, no complaints of chest pain, no clinically significant delta troponin, likely secondary end-stage renal disease, continue to monitor History of seizures, continue Keppra CHF, continue to monitor not in acute exacerbation Attestations Medical Necessity Statement*: Continue IV antibiotics for multiple osteomyelitis, left lower extremity nonhealing diabetic wounds with infection, cellulitis of right stump, preparations for patient's intended move to a new home in [place] on Sunday. Coding Level of Care Code Acute Aircraft General Repair Mechanic for [facility] Fwd Diagnoses Osteomyelitis of left lower extremity M86.9 Chronic wound of extremity Acute encephalopathy G93.40 Cellulitis L03.90 Cystitis N30.90 Peripheral arterial disease I73.9 Anemia D64.9 ESRD (end stage renal disease) N18.6 HTN (hypertension) I10 Pseudoaneurysm following procedure T81.718A; I72.9 CHF (congestive heart failure) I50.42 Heart failure chronicity: chronic Heart failure type: combined systolic and diastolic
[2021-02-09 16:50] LABS: Glucose Point of Care 169 mg/dL (70-110)
[2021-02-09] MEDS: atorvastatin 40 mg Tablet PO (20:29)
[2021-02-09 21:22] LABS: Glucose Point of Care 207 mg/dL (70-110)
[2021-02-10] VITALS: BP 119/62; PULSE 82; RESP 16; TEMP 36.7; O2SAT 97
[2021-02-10 04:00] VITALS: BP 134/68; PULSE 71; RESP 16; TEMP 36.8; O2SAT 95
[2021-02-10] MEDS: acetaminophen 325 mg Tablet 650 MG PO ×3 (05:06→22:32)
[2021-02-10 06:46] LABS: Glucose Point of Care 143 mg/dL (70-110)
--- NOTE | 2021-02-10 07:26 | PM.PN ---
Subjective Subjective: Interval history: no new complaints. still weak, wants to go home soon. no n/v/f/c/lee/d Medications: Reviewed: Yes Medication Review Details: Current Medications Acetaminophen (Acetaminophen 325 Mg Tablet) 650 mg PO Q6H PRN PRN Reason: Mild/Mod Pain Or Temp >/= 101 Last Admin: 02/10/21 05:06 Dose: 650 mg Documented by: Ascorbic Acid (Ascorbic Acid 500 Mg Tablet) 500 mg PO DAILY@0800 [facility] Last Admin: 02/09/21 08:21 Dose: 500 mg Documented by: Atorvastatin Calcium (Atorvastatin 40 Mg Tablet) 40 mg PO DAILY@1999 [facility] Last Admin: 02/09/21 20:29 Dose: 40 mg Documented by: Bisacodyl (Bisacodyl 10 Mg Supp) [address] DAILY PRN PRN Reason: Constipation Dextrose (Dextrose 50% Syringe 50 Ml) 25 ml IVP ONCE PRN; Protocol PRN Reason: hypoglycemia protocol Dextrose (Dextrose 50% Syringe 50 Ml) 50 ml IVP PRN PRN; Protocol PRN Reason: hypoglycemia protocol Glucagon (Glucagon 1 Mg/Ml Inj 1 Ml) 1 mg IM ONCE PRN; Protocol PRN Reason: Adult Acute Hypoglycemia Prot. Imipenem/Cilastatin Sodium 250 (mg/ Sodium Chloride) 100 mls @ 200 mls/hr IV Q12H [facility] Last Infusion: 02/10/21 02:39 Dose: Infused Documented by: Vancomycin HCl 1,000 mg/ (Sodium Chloride) 250 mls @ 250 mls/hr IV MoWeFr [facility] Last Admin: 02/09/21 20:24 Dose: Not Given Documented by: Dextrose (D5w) 500 mls @ 100 mls/hr IV ONCE PRN; Protocol PRN Reason: Adult Acute Hypoglycemia Prot Isosorbide Mononitrate (Isosorbide Mononitrate Er 30 Mg Tablet) 30 mg PO DAILY@0800 [facility] Last Admin: 02/09/21 08:21 Dose: 30 mg Documented by: Levetiracetam (Levetiracetam 500 Mg Tablet) 500 mg PO BID@0800,1999 [facility] Last Admin: 02/09/21 20:29 Dose: 500 mg Documented by: Naloxone HCl (Naloxone 0.4 Mg/Ml Sdv) 0.1 mg IVP Q2M PRN PRN Reason: OPIATERV Non-Formulary Medication (Dakin's 1/4 Strength (0.125% ) 1 each TOPICAL DAILY [facility] Last Admin: 02/09/21 10:19 Dose: 1 each Documented by: Ondansetron HCl (Ondansetron 2 Mg/Ml Sdv 2 Ml) 4 mg IVP Q8H PRN PRN Reason: vomiting, or N/V if npo Pantoprazole Sodium (Pantoprazole Dr 40 Mg Tablet) 40 mg PO BID@ [facility] Last Admin: 02/09/21 20:29 Dose: 40 mg Documented by: Sacubitril/Valsartan (Sacubitril/Valsartan 24-26 Mg Tablet) 1 each PO BID@ [facility] Last Admin: 02/09/21 20:32 Dose: 1 each Documented by: Senna/Docusate Sodium (Sennosides-Docusate Tablet) 1 tab PO BID PRN PRN Reason: Constipation Vitals/I&O/Wt Last Vital Signs Temp 98.2 F 02/10/21 04:00 Pulse 71 02/10/21 04:00 Resp 16 02/10/21 04:00 BP 134/68 02/10/21 04:00 Pulse Ox 95 02/10/21 04:00 02/09/21 02/10/21 02/10/21 22:59 06:59 14:59 Intake Total 340 / 912 Balance 340 / -888 Weight last 48 hrs Weight 80.6 kg Physical Exam Narrative: EXAM NARRATIVE: Constitutional: Awake, comfortable in bed, NARD HEENT: nc/at, eomi, anicteric neck-supple, no jvp rt ij dialysis catheter Lungs: cta b/l CVS: S1 S2, RRR, no murmurs Abdo: Soft, NT, ND, + BS Ext 4: rt BKA, left foot bandage, poor pulse, no edema mood- okay Neurological: a,a, o x 3, moves all ext seen and examined w/ rN- telehealth visit Data : 02/09/21 05:24 02/09/21 05:24 A&P Additional A&P Information 1. ESRD - HD MWF Plan for dialysis tomorrow = 3 K, UF 1.5 L as jak by SBP Continue MWF schedule Dose medication for GFR less than 15 on dialysis 2. ESBL UTI Management per hospitalist team including management of antibiotics. please ensure that he has abx on d/c -currently primaxin. -was not able to get a picc line -please ensure that dialysis center will give him his 6 weeks of abx from -- -check vanco level- to keep trough under 20 - 3. acute on chronic wound with black eschar with active drainage on right BKA stump site, left lower extremity cellulitis and osteomyelitis and deep tissue infection -abx per medicine- Q if needs further OR for PAD. Consideration of BKA noted 4. Peripheral arterial disease, no blood flow below the left knee, underwent CSI arthrectomy of mid to distal left SFA and peroneal artery, followed by balloon angioplasty of peroneal artery, anterior tibial artery, mid to distal left SFA -may need a BKA per medicine and surgery 5. anemia- iron sat- 32%, ferritin 1701- no iv iron, use, epo- 6. DM control 7. CAD s/p CABG- medicine note appreciated- may need cath 8. phos low- hold binders. pth 102.6- no vit d analouge 9. elevated BNP- gently remove fluids on dialysis 10. 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
[2021-02-10 07:59] LABS: Glucose Point of Care 161 mg/dL (70-110)
[2021-02-10 08:00] VITALS: BP 132/64; PULSE 81; RESP 16; TEMP 36.7; O2SAT 94
[2021-02-10] MEDS: isosorbide mononitrate ER 30 mg Tablet PO (09:17)
[2021-02-10] MEDS: pantoprazole DR 40 mg Tablet PO ×2 (09:17→20:46)
[2021-02-10] MEDS: levETIRAcetam 500 mg Tablet PO ×2 (09:17→20:46)
[2021-02-10] MEDS: ascorbic acid 500 mg Tablet PO (09:17)
[2021-02-10] MEDS: sacubitril/valsartan 24-26 mg Tablet 1 EACH PO ×2 (09:17→20:46)
[2021-02-10 11:38] LABS: Glucose Point of Care 202 mg/dL (70-110)
[2021-02-10 12:00] VITALS: BP 151/70; PULSE 89; RESP 16; TEMP 36.4; O2SAT 98
[2021-02-10 15:06] VITALS: BP 160/71; PULSE 65; RESP 16; TEMP 36.9; O2SAT 99
[2021-02-10 17:17] LABS: Glucose Point of Care 170 mg/dL (70-110)
[2021-02-10 20:00] VITALS: BP 153/67; PULSE 68; RESP 18; TEMP 36.7; O2SAT 95
[2021-02-10] MEDS: atorvastatin 40 mg Tablet PO (20:46)
[2021-02-10 20:59] LABS: Glucose Point of Care 198 mg/dL (70-110)
--- NOTE | 2021-02-10 22:03 | P.PN_ITS ---
Subjective Subjective: Interval history: He is experiencing stiffness in his left leg/thigh, reports some difficulty bending his leg. Denies chest pain or pressure. No trouble breathing. Vitals/I&O/Wt Last Vital Signs Temp 98.1 F 02/10/21 20:00 Pulse 68 02/10/21 20:00 Resp 18 02/10/21 20:00 BP 153/67 02/10/21 20:00 Pulse Ox 95 02/10/21 20:00 02/10/21 02/10/21 02/10/21 06:59 14:59 22:59 Intake Total 340 / 912 540 / 540 240 / 780 Output Total 300 / 300 Balance 340 / -888 540 / 540 -60 / 480 Weight last 48 hrs Weight 80.6 kg Physical Exam Const: COMMON NORMALS: no acute distress and patient oriented x3 GENERAL APPEARANCE: frail appearing HENMT: COMMON NORMALS: oropharynx normal Neck/C-Spine: COMMON NORMALS: no JVD Resp: COMMON NORMALS: normal respiratory effort and clear to auscultation bilaterally AUSCULTATION: clear to auscultation bilaterally Cardio: COMMON NORMALS: no JVD, regular rhythm, S1 normal heart sound present, S2 normal heart sound present and No murmurs present (Cardio) RHYTHM: regular rhythm HEART SOUNDS: S1 normal heart sound present and S2 normal heart sound present GI: COMMON NORMALS: Normal to inspection, nondistended, normoactive bowel sounds present, Soft to palpation and non-tender PALPATION: Yes Soft to palpation Extremity: COMMON NORMALS: no joint enlargement and no pedal edema OTHER: Dressing L foot, ankle. Some muscle stiffness of left thigh. Neuro: COMMON NORMALS: patient oriented x3 and moves all extremities Skin: COMMON NORMALS: no rashes or lesions noted GENERAL SKIN EXAM: no rashes or lesions noted Data : 02/09/21 05:24 02/09/21 05:24 A&P Assessment and plan (1) Osteomyelitis of left lower extremity: Continue Primaxin, vancomycin. Black eschar/dry gangrene surrounding lat foot wound/old 5th digit amputation, 5cm ulceration L lat ankle, DTI entire left heel. Right BKA w 1.5 cm ulceration, surrounding cellulitis of stump. Discussed with him his plans for move to [place]. He states that he will be going to a hospital in [place] soon as he arrives there. Discussed with him we would like to still make sure that he has antibiotics arranged, as well as would like to make sure he has follow-up with wound care, who may also refer him to surgery for reassessment for readiness for amputation. He will also need follow-up with cardiology. Left thigh muscle tightness. Discussed with him range of motion exercises. We will ask PT to see him. Muscle relaxer as needed. Tetanus reported up-to-date. Will need 5 additional weeks of antibiotics. Discussed with him consideration of every 24 hours ertapenem, although this may be difficult given his relocation, not yet established medical care over in [place]. For now he agrees that although less preferred the option of giving ertapenem with hemodialysis may work better for the current situation with less moving parts, until he can get established, subsequently can possibly transition to the other regimen, but again depending also on the plans for amputation. With successful amputation may be able to discontinue antibiotics substantially earlier. Status: Acute (2) Chronic wound of extremity: Medical optimization of nutrition, continued empiric therapy requested by surgery. Has had a positive stress test, sonogram shows EF of 30 to 35%, will require cardiac evaluation before surgery as well. As he has booked tickets to fly to [place] on Sunday additional plans for surgery, cardiac ablation have been placed on hold for now until he can reestablish with his new team at the new location. He continues on antibiotic therapy at this time. Status: Acute (3) Acute encephalopathy: -Acute encephalopathy has resolved, alert oriented x3, follows commands -Multiple sources of infection include cellulitis, acute on chronic wound with black eschar with active drainage on right BKA stump site, left lower extremity cellulitis and osteomyelitis and deep tissue infection CT scan shows -1. Interval appearance of lytic bone destruction along the lateral cortex of the lateral malleolus consistent with osteomyelitis. 2. Interval appearance of soft tissue thickening over the lateral malleolus consistent with possible soft tissue callus or phlegmon. 3. Interval appearance of mild soft tissue ulceration superior to the level of the osteomyelitis/phlegmon in the region of the distal fibular shaft or proximal lateral malleolus. 4. Interval appearance of lytic bone destruction in the head and neck of the 5th metatarsus and cortical destruction in the base of the little toe proximal phalanx consistent with osteomyelitis. 5. Interval appearance of soft tissue emphysema throughout the left little toe from tip of the toe through the head and neck of the metatarsus area consistent with necrotizing fasciitis. 6. Continued soft tissue swelling in the forefoot consistent with cellulitis. 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 Recommendations appreciated. Continue Nepro, increase to 3 times daily if tolerating. Status: Acute (4) Cellulitis: Of right stump, continue antibiotics. Noted ulceration. No drainable abscess or fluid collection on ultrasound 02/01. Status: Acute (5) Cystitis: ESBL E. coli, completed antibiotic course. Status: Acute (6) Peripheral arterial disease: Status: Acute (7) Anemia: Status: Acute (8) ESRD (end stage renal disease): Status: Acute (9) HTN (hypertension): Status: Acute (10) Pseudoaneurysm following procedure: Status: Acute (11) CHF (congestive heart failure): Status: Acute Qualifiers: Heart failure chronicity: chronic Heart failure type: combined systolic and diastolic Qualified Code(s): I50.42 - Chronic combined systolic (congestive) and diastolic (congestive) heart failure Additional A&P Information End-stage renal disease, nephrology consulted, dialysis Peripheral arterial disease, no blood flow below the left knee, underwent CSI arthrectomy of mid to distal left SFA and peroneal artery, followed by balloon angioplasty of peroneal artery, anterior tibial artery, mid to distal left SFA Pseudoaneurysm after procedure as above, requiring 1 unit PRBC, aspirin Plavix o n hold, ultrasound shows stability CAD, CABG in 2012, aspirin and Plavix on hold due to to pseudoaneurysm Type 2 diabetes mellitus, diet controlled, low-dose sliding scale Anemia, trend hemoglobin down to 8. Reassess CBC. NSTEMI, no complaints of chest pain, no clinically significant delta troponin, likely secondary end-stage renal disease, continue to monitor History of seizures, continue Keppra CHF, continue to monitor not in acute exacerbation Attestations Medical Necessity Statement*: Continue admission for IV antibiotics for osteomyelitis, nonhealing diabetic wounds of left lower extremity, continued nutritional optimization anticipation of future left lower extremity amputation, pending his move to [facility] in [place] which patient and his brother have planned for this Sunday. 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
[2021-02-11] VITALS (9 sets, daily range): BP systolic 132–158; BP diastolic 61–76; PULSE 63–82; RESP 16–18; TEMP 36.3–37.1; O2SAT 94–98
--- NOTE | 2021-02-11 04:50 | PC.NURSE ---
Pt exiting unit at this time to go to dialysis
[2021-02-11 06:14] LABS: Anion Gap 11.4 (5-19); Blood Urea Nitrogen 22 mg/dL (8-23); Calcium 8.2 mg/dL (8.5-10.5); Carbon Dioxide 28 mmol/L (22-29); Chloride 103 mmol/L (98-107); Glucose 118 mg/dL (65-115); Magnesium 1.6 mg/dL (1.7-2.3); Osmolality Calculated 292 mOsm/kg (285-295); Phosphorus 1.2 mg/dL (2.5-4.5); Potassium 3.4 mmol/L (3.5-5.1); Sodium 139 mmol/L (136-145)
[2021-02-11 06:18] LABS: Vancomycin Random 11.8 ug/mL (20.0-40.0)
[2021-02-11 07:04] LABS: Glucose Point of Care 104 mg/dL (70-110)
--- NOTE | 2021-02-11 07:55 | PM.PN ---
Subjective Subjective: Interval history: seen during dialysis via telemedicine Medications: Reviewed: Yes Vitals/I&O/Wt Last Vital Signs Temp 98.6 F 02/11/21 06:39 Pulse 63 02/11/21 06:39 Resp 16 02/11/21 06:39 BP 153/61 02/11/21 06:39 Pulse Ox 97 02/11/21 04:00 02/10/21 02/11/21 02/11/21 22:59 06:59 14:59 Intake Total 240 / 780 160 / 940 Output Total 300 / 300 Balance -60 / 480 160 / 640 Weight last 48 hrs Weight 80.6 kg Physical Exam Const: COMMON NORMALS: no acute distress GENERAL APPEARANCE: cooperative Neck/C-Spine: OTHER: right tunneled IJ catheter - no signs of infection per RN Data : 02/09/21 05:24 02/11/21 05:19 A&P Additional A&P Information Impression: 1. ESRD, HD MWF 2. osteomylitis left leg 3. Anemia, managed with epogen and iron at dialysis 4. Hypokalemia Recommend: continue HD MWF, increase K intake in diet. 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
[2021-02-11] MEDS: ascorbic acid 500 mg Tablet PO (08:12)
[2021-02-11] MEDS: levETIRAcetam 500 mg Tablet PO ×2 (08:12→19:38)
[2021-02-11] MEDS: sacubitril/valsartan 24-26 mg Tablet 1 EACH PO ×2 (08:12→19:38)
[2021-02-11] MEDS: isosorbide mononitrate ER 30 mg Tablet PO (08:12)
[2021-02-11] MEDS: pantoprazole DR 40 mg Tablet PO ×2 (08:12→19:38)
[2021-02-11 10:58] LABS: Glucose Point of Care 128 mg/dL (70-110)
[2021-02-11] MEDS: ertapenem 1,000 MG in sodium chloride 0.9% (plus) 100 ML 200 MG IV (13:06)
--- NOTE | 2021-02-11 14:16 | PC.NURSE ---
PT LOST IV ACCESS. DOCTOR NOTIFIED AND HE SAID IT IS OK TO LEAVE IV OUT.
[2021-02-11 14:35] LABS: Hepatitis A Antibody IgM Non-Reactive (Nonreactive); Hepatitis B Core IgM Non-Reactive (Nonreactive); Hepatitis B Surface Antigen Non-Reactive (Nonreactive); Hepatitis C Virus Antibody Non-Reactive (Nonreactive)
[2021-02-11 17:13] LABS: Glucose Point of Care 187 mg/dL (70-110)
[2021-02-11] MEDS: atorvastatin 40 mg Tablet PO (19:38)
[2021-02-11] MEDS: acetaminophen 325 mg Tablet 650 MG PO (19:38)
--- NOTE | 2021-02-11 19:53 | PC.NURSE ---
PT HAS DONE WELL FOR ME TODAY. PT IS READY TO GO TO [place] WITH BROTHER PLANNED. THIS NURSE CALLED THE BROTHER TODAY AND THE BROTHER SAID HIS FLIGHT WAS DELAYED TODAY SO THEY WILL NOT BE ABLE TO LEAVE UNTIL TOMORROW MORNING. THE DOCTOR WAS NOTIFIED OF THIS. DISCHARGE PAPERWORK WAS GONE OVER WITH THE PT AND HIS BROTHER. ALL QUESTIONS ANSWERED. THE PT AND BROTHER REFUSED THE WHEELCHAIR SO IT WILL BE RETURNED TO THE [facility] TOMORROW MORNING. MEDICATIONS AND ACCU CHECK MACHINE WAS ALSO DISCUSSED WITH THE PT AND BROTHER. ALL QUESTIONS WERE ANSWERED. THE BROTHER STATED HE WILL BE BACK AROUND [phone] IN THE MORNING TO ASSIST GETTING MR ESCAMILLA READY AND DISCHARGED FROM THE HOSPITAL.
--- NOTE | 2021-02-11 21:58 | P.DS_ITS ---
Discharge Providers Date of Admission: 01/31/21 19:28 Date of Discharge: February 11, 2021 Attending Provider at Admission: Hira Ruiz MD Attending Provider at Discharge: Karl Wilkerson Primary Care Provider: Matias Young MD Diagnoses at Discharge Discharge Diagnosis (1) Osteomyelitis of left lower extremity: Status: Acute (2) Chronic wound of extremity: Status: Acute (3) Acute encephalopathy: Status: Acute (4) Cellulitis: Status: Acute (5) Cystitis: Status: Acute (6) Peripheral arterial disease: Status: Acute (7) Anemia: Status: Acute (8) ESRD (end stage renal disease): Status: Acute (9) HTN (hypertension): Status: Acute (10) Pseudoaneurysm following procedure: Status: Acute (11) CHF (congestive heart failure): Status: Acute Qualifiers: Heart failure chronicity: chronic Heart failure type: combined systolic and diastolic Qualified Code(s): I50.42 - Chronic combined systolic (congestive) and diastolic (congestive) heart failure Reason for Visit Reason for Visit: AMS, L FOOT WOUND Hospital Course Hospital Course Pleasant 70-year-old gentleman with history (among other extensive medical history, see H&P) of CAD, former smoker, right-sided BKA, reported nonambulatory for a while, history of diabetic foot infection, osteomyelitis on the right side, DM2 which she controls with diet, last A1c 5.6 on 12/27/2020, ESRD on hemodialysis MWF via right chest tunneled access catheter, combined systolic and diastolic CHF, EF 38%, history of CABG x3, abnormal stress test/04/05, history of PAD, recent history of anemia and moderate right groin pseudoaneurysm, following with cardiology, due to this his aspirin and Plavix have been on hold, history of CSI atherectomy of the left SFA and peroneal for severe PAD below the knee followed by balloon angioplasty, history of epilepsy, chronic anemia, ESBL E. coli UTIs and pyelonephritis, history of VRE and ESBL skin infections history of sepsis and gram-positive bacteremia staph aureus secondary to dialysis catheter which was replaced, finished 2 weeks of vancomycin, JOSEPH negative for endocarditis was admitted on 01/31 from [facility] with multiple concerns including increased confusion, worsening left lower extremity diabetic ulcers with black eschar, worsening despite multiple rounds of antibiotics, as well as blood in urine. With acute encephalopathy on presentation. normally alert oriented x3, normally carries on conversations, is wheelchair-bound, can feed himself, is two-person assist, they tell me that he has been having ongoing left lower extremity foot infections, on multiple locations, on the lateral aspect of the left foot, on the heel, and also at the right BKA stump site. During the hospitalization treated for ESBL E. coli UTI with Primaxin, also on vancomycin for treatment of osteomyelitis, infected wounds of left foot, as well as cellulitis and draining wound of the right stump. CT foot revealing lytic bone destruction along lateral cortex of lateral malleolus consistent with osteomyelitis, interval appearance of soft tissue thickening over the lateral malleolus consistent with callus or phlegmon. Interval appearance of mild soft tissue incidence. To level osteomyelitis/phlegmon in region of the distal fibular shaft or proximal lateral malleolus. Interval appearance of lytic bone destruction in the head and neck of the fifth metatarsal and cortical destruction of the base of the little toe consistent with osteomyelitis. Interval appearance of soft tissue emphysema throughout the low left little toe from tape of the toe through the head and neck of the metatarsal area consistent with necrotizing fasciitis. Continued soft tissue swelling in the forefoot co nsistent with cellulitis. Soft tissue ultrasound of the right stump with diffuse subcutaneous edema although no evidence of drainable abscess or fluid collection. Has not so far yet been assessed by MRI of the right stump. Arterial duplex of right groin pseudoaneurysm still present 4.2 x 3.6 cm neck of the aneurysm at 0.4 cm. Compared to 01/13/2021 aneurysm sac appears partially thrombosed. Size of the aneurysm has not changed significantly. Was assessed by surgery, underwent completion of left fifth toe and sharp debridement of left lateral malleolar wound, with poor healing eventually r ecommended that he will need BKA amputation, but with recommendation of optimization of nutritional status prior to BKA amputation as well as assessment by cardiology given previously abnormal stress test, CHF, history of CAD/CABG. Nutritional optimization was continued with renal hemodialysis diet, with addition of Nepro shakes, which he tolerated eventually with escalation to 3 times daily. Volume status was optimized with hemodialysis. He has not had any chest pain or pressure. Rather than continue optimization and assessment here with preparations for BKA, he and his brother have booked plane tickets for this Sunday for him to move to [place] to live live there with his brother. His brother is coming down from [place] to pick him up for this purpose. He has made arrangements for him to continue hemodialysis there, starting on 02/15. Given anticipated logistical difficulties with his nonambulatory/nonweightbearing condition, multiple comorbidities and requirement for skilled care the move is difficult and they have been advised to reconsider moving at this time, however, are determined to proceed to be able to live together in [place] from here on in. On confirmation by case management the hemodialysis clinic will be able to administer his antibiotics after dialysis including ertapenem (which he got the first dose today, and vancomycin). Initial plans were for him to have ertapenem administered by IV daily, however, due to the number of complicating factors, including his move with unclear ability to administer every 24 hours infusions during the move, as well as with difficulty obtaining peripheral access with a PICC line, second line option of infusions with dialysis of both vancomycin and ertapenem is continued with after discussion with patient and his brother, although this may be adjusted after arrival and care established in new location. At this time arrangements for additional 5 weeks of IV antibiotic therapy. The duration will hinge on his undergoing BKA, and whether osteomyelitis may be identified in the right stump upon additional assessment. He is encouraged to establish as soon as possible with primary provider, wound care, who would also refer him additionally to surgery, cardiology assessment, as well as continued follow-up with nephrology. He and his brother state that they intend to go to a hospital in [place] once they arrive there given the number of involved parties needed to coordinate arrangements to pursue the below-knee amputation and follow-up his advanced comorbidities. In anticipation of his move and given [facility] he is provided with meds to beds of his continued medications, with a glucometer to continue glucose monitoring, provided with wound care supplies and instructions (outlined below, and with request for wound care teaching to his brother when he arrived to pick him up tomorrow morning prior to discharge), wheelchair, with request for additional needed equipment including Blanca lift and hospital bed. Please see full hospitalization documentation and studies for details. Physical Exam Narrative: EXAM NARRATIVE: Reports today he is doing all right. Not bothered by any new problems. Awaiting arrival of his brother, looking forward to his move tomorrow. Const: COMMON NORMALS: no acute distress and patient oriented x3 GENERAL APPEARANCE: frail appearing HENMT: COMMON NORMALS: oropharynx normal Neck/C-Spine: COMMON NORMALS: no JVD Resp: COMMON NORMALS: normal respiratory effort and clear to auscultation bilaterally AUSCULTATION: clear to auscultation bilaterally Cardio: COMMON NORMALS: no JVD, regular rhythm, S1 normal heart sound present, S2 normal heart sound present and No murmurs present (Cardio) RHYTHM: regular rhythm HEART SOUNDS: S1 normal heart sound present and S2 normal heart sound present GI: COMMON NORMALS: Normal to inspection, nondistended, normoactive bowel sounds present, Soft to palpation and non-tender PALPATION: Yes Soft to p alpation Extremity: COMMON NORMALS: no joint enlargement and no pedal edema OTHER: Currently clean dressing over left foot and ankle. Right stump with cellulitis, middle ulceration 1 x 2 cm with some clear drainage. Most recently black eschar/dry gangrene surrounding lat foot wound edges/5th digit amputation, 5cm ulceration L lat ankle, DTI entire left heel. Neuro: COMMON NORMALS: patient oriented x3 and moves all extremities Skin: COMMON NORMALS: no rashes or lesions noted GENERAL SKIN EXAM: no rashes or lesions noted Discharge Data Data Completed and Pending: Completed Studies During Hospitalization Category Date Time Status CT foot LT w con [id number] Urgent Cat Scan 01/31/21 19:[address] kidney stone 7 [id number] Stat Cat Scan 01/31/21 12:11 Completed XR chest 1V shar ble [id number] Stat Exams 01/31/21 10:19 Completed Pathology: Surgic al [PTH] Routine Pth 02/02/21 15:17 [place] [id number] Urge nt Ultrasound 02/01/21 19:28 Completed US soft tissue/ex tremity [id number] Urge nt Ultrasound 02/01/21 19:28 Completed Pending at discharge Category Date Time Status Basic Metabolic P josé miguel AM LABS Lab 02/12/21 04:00 Ordered Basic Metabolic P josé migeul AM LABS Lab 02/13/21 04:00 Ordered Labs from last 24 hours 02/11/21 02/11/21 02/11/21 17:07 10:35 06:21 Sodium Potassium Chloride Carbon Dioxide Anion Gap BUN Creatinine GFR Calculation Glucose POC Glucose 187 H 128 H 104 Calculated Osmolal ity Calcium Phosphorus Magnesium Random Vancomycin Hepatitis A IgM Ab Hep Bs Antigen Hep B Core IgM Ab Hepatitis C Antibo dy 02/11/21 02/11/21 02/11/21 05:19 05:19 05:19 Sodium 139 Potassium 3.4 L Chloride 103 Carbon Dioxide 28 Anion Gap 11.4 BUN 22 Creatinine 2.3 H GFR Calculation Not Reportable Glucose 118 H POC Glucose Calculated Osmolal ity 292 Calcium 8.2 L Phosphorus 1.2 L Magnesium 1.6 L Random Vancomycin 11.8 L Hepatitis A IgM Ab Non-reactive Hep Bs Antigen Non-reactive Hep B Core IgM Ab Non-reactive Hepatitis C Antibo dy Non-reactive Addt'l Data from Hospital Stay: Patient: Moy Fernandez AUnit #: [id number]: 9Acct#:[id number]/Sex: 70 / MADM Date: 01/31/21Loc: [facility]/Bed:Attending Dr: Ordering Provider/Ordering MD: Chad Penny DO Date of Service: 01/31/21 Procedure(s): XR chest 1V portable [id number] Accession Number(s): [id number] Report Number: [id number] PROCEDURE INFORMATION: Exam: XR Chest Exam date and time: 01/31/2021 10:19 AM Age: 70 years old Clinical indication: Cough and dyspnea; Additional info: Dyspnea/cough TECHNIQUE: Imaging protocol: XR of the chest. Views: 1 view. Total images: 1 COMPARISON: CR (CHEST, ) 12/27/2020 5:55 PM FINDINGS: Tubes, catheters and devices: A right internal jugular central venous catheter is present, with its tip overlying the region of the superior vena cava and unchanged from prior exam. Lungs: Coarse chronic pulmonary markings. Trace bibasilar atelectasis or scar. Pleural spaces: Unremarkable. No pleural effusion. No pneumothorax. Heart/Mediastinum: Unremarkable. No cardiomegaly. Bones/joints: Osseous structures are unchanged from the prior exam. Other findings: Stable postsurgical changes. XR/XR chest 1V portable [id number] IMPRESSION: 1. Coarse chronic pulmonary markings. 2. Trace bibasilar atelectasis or scar. Radiation Dose CTDIVOL = (mGy): DLP = (mGy-cm) Dictated By:Erasto Conklin MDSigned By:Erasto Conklin MDSigned Date/Time:01/31/21 1138 Ordering Provider/Ordering MD: Chad Penny DO Date of Service: 01/31/21 Procedure(s): CT kidney stone 17661 Accession Number(s): [id number] Report Number: [id number] WS: [id number] CT ABDOMEN PELVIS TECHNIQUE: Noncontrast CT of the abdomen and pelvis with coronal and sagittal reformatted images. CLINICAL INFORMATION: hematuria COMPARISON: CT January 13, 2021 DLP: 1705.[address] scans at [facility] use at least one of these dose optimization techniques: automated exposure control; mA and/or kV adjustment per patient size (includes targeted exams where dose is matched to clinical indication); or iter ative reconstruction. FINDINGS: Tiny bilateral pleural effusions. Compressive atelectasis in the lung bases. Mild hepatomegaly. Noncontrast spleen is normal. Small esophageal hiatal hernia. Fatty atrophy of the pancreas. Cholelithiasis with prominent gallstone measuring 19 mm. Vascular calcification. Adrenal glands are normal. Bilateral renal cortical atrophy. No hydronephrosis in either kidney. No renal or ureteral calculi. Diffuse bladder wall thickening can be seen with chronic cystitis or bladder outlet obstruction. Recommend correlation for UTI. Enlarged prostate measuring 4.8 cm. Rectosigmoid constipation with rectal distention. Diffuse pancolonic constipation. Tiny fat-containing umbilical hernia. Mild diffuse body wall anasarca. Stable pseudoaneurysm right groin. Correlation with history of vascular access. This measures 3.4 x 3.5 cm unchanged from previous. CT/CT kidney stone 57579 IMPRESSION: 1. No obstructing renal or ureteral ureteral calculi. 2. Cholelithiasis. 3. Tiny bilateral pleural effusions with compressive atelectasis in the lung bases. 4. Diffuse bladder wall thickening can be seen with cystitis or bladder outlet obstruction progressed from January 13, 2021.Recommend correlation for UTI. 5. Prominent prostate measuring 4.8 cm. 6. Rectosigmoid constipation. Diffuse pancolonic constipation. 7. Unchanged pseudoaneurysm right groin. Dictated By:Joss Arredondo MDSigned By:Joss Arredondo MDSigned Date/Time:01/31/21 1306 Ordering Provider/Ordering MD: Hira Ruiz MD Date of Service: 01/31/21 Procedure(s): CT foot LT w con [id number] Accession Number(s): [id number] Report Number: [id number]/CT foot LT w con [id number] THIS REPORT CONTAINS FINDINGS THAT MAY BE CRITICAL TO PATIENT CARE. The findings were verbally communicated via telephone conference with Dr. Moreno at 12:06 AM CDT on 02/01/2021. The findings were acknowledged and understood. Radiation Dose CTDIVOL = (mGy): DLP = 234.56 (mGy-cm) Addendum Dictated By: Fish Ayon MDAddendum Signed By: Fish Ayon MDSigned Date/Time:02/01/21 0009Addendum Cosigned By: PROCEDURE INFORMATION: Exam: CT Left Lower Extremity With Contrast, Foot Exam date and time: 01/31/2021 7:28 PM Age: 70 years old Clinical indication: Cellulitis; Foot; Left; Additional info: Recurrent eschar and celulltiitis, osteo vs abscess TECHNIQUE: Imaging protocol: CT of the Left lower extremity with intravenous contrast was performed. Exam focused on the foot. Radiation optimization: All CT scans at this facility use at least one of these dose optimization techniques: automated exposure control; mA and/or kV adjustment per patient size (includes targeted exams where dose is matched to clinical indication); or iterative reconstruction. Contrast material: VISI 320; Contrast volume: 95 ml; Contrast route: INTRAVENOUS (IV); COMPARISON: CT foot LT wo con* [id number] 12/28/2020 8:38 AM RADIATION DOSE METRICS: Total DLP (mGy-cm): 234.56 FINDINGS: Bones/joints: Interval appearance of lytic bone destruction along the lateral cortex of the lateral malleolus consistent with osteomyelitis. Interval appearance of lytic bone destruction in the head and neck of the 5th metatarsus and cortical destruction in the base of the little toe proximal phalanx consistent with osteomyelitis. Soft tissues: Interval appearance of soft tissue thickening over the lateral malleolus consistent with possible soft tissue callus or phlegmon. Interval appearance of mild soft tissue ulceration superior to the level of the osteomyelitis/phlegmon in the region of the distal fibular shaft or proximal lateral malleolus. Interval appearance of soft tissue emphysema throughout the left little toe from tip of the toe through the head and neck of the metatarsus area consistent with necrotizing fasciitis. Continued soft tissue swelling in the forefoot consistent with cellulitis. Vasculature: Severe calcified peripheral vascular disease. CT/CT foot LT w con [id number] IMPRESSION: 1. Interval appearance of lytic bone destruction along the lateral cortex of the lateral malleolus consistent with osteomyelitis. 2. Interval appearance of soft tissue thickening over the lateral malleolus consistent with possible soft tissue callus or phlegmon. 3. Interval appearance of mild soft tissue ulceration superior to the level of the osteomyelitis/phlegmon in the region of the distal fibular shaft or proximal lateral malleolus. 4. Interval appearance of lytic bone destruction in the head and neck of the 5th metatarsus and cortical destruction in the base of the little toe proximal phalanx consistent with osteomyelitis. 5. Interval appearance of soft tissue emphysema throughout the left little toe from tip of the toe through the head and neck of the metatarsus area consistent with necrotizing fasciitis. 6. Continued soft tissue swelling in the forefoot consistent with cellulitis. Radiation Dose CTDIVOL = (mGy): DLP = 234.56 (mGy-cm) Dictated By:Fish Ayon MDSigned By:Fish Ayon MDSigned Date/Time:01/31/21 9982 Ordering Provider/Ordering MD: Hira Ruiz MD Date of Service: 02/01/21 Procedure(s): [place] [id number] Accession Number(s): [id number] Report Number: [id number] Moy Fernandez Age: 70 Gender: M : 1950 Exam Date: 02/01/2021 06:17 Ordering Phys: Hira Ruiz MD Technologist: Exam [place] [facility] [place]: HX OF PSEUDO Findings PSEUDOANEURYSM STILL PRESENT TODAY. NECK .40CM. Hypoechoic area, measuring 4.2 x 3.6 cm in the right groin . Too and fro blood flow was noted in this area. The neck of the aneurysm measured 0.4 cm Conclusions 1. Pseudoaneurysm measuring 4.2 x 3.6 cm in the right groin 2. The neck of the aneurysm measured at 0.4 cm Compared to the study from 01/13/2021, the aneurysm sac appears to be partially thrombosed. The size of the aneurysm has not changed significantly Dr Angeles Khan MD [facility] (Electronically Signed) Final Date: 01 February 2021 08:19 Ordering Provider/Ordering MD: Hira Ruiz MD Date of Service: 02/01/21 Procedure(s): US soft tissue/extremity 12910 Accession Number(s): [id number] Report Number: [id number] WS: [id number] INDICATION: Evaluate BKA for abscess TECHNIQUE: Ultrasound soft tissue area of concern FINDINGS: Ultrasound soft tissue area of concern right BKA. Diffuse subcutaneous edema with a small amount of subcutaneous fluid. No evidence of drainable abscess or drainable fluid collection. US/US soft tissue/extremity 73107 IMPRESSION: Diffuse subcutaneous edema although no evidence of drainable abscess or fluid collection. Dictated By:Joss Arredondo MDSigned By:Joss Arredondo MDSigned Date/Time:02/01/21823 NAME: Moy Fernandez Kevin LOC: [facility] U #: [id number] AGE/SX: 70/M ROOM: [facility] RE01/31/[address]: Karl Wilkerson MD : 1950 BED: 1 DIS: FAX #: STATUS: ADM IN TLOC: Spec #: [id number] Mariaa: 01/31/21 Status: COMP Req #: [id number] Recd: 01/31/[address]: Chad Penny DO Src: Blood SpDesc: Ordered: Bcult Procedure Result Verified Site Blood Culture Final 02/05/21 NO GROWTH AFTER 5 DAYS Blood Culture Preliminary (changed) 02/01/21 NEGATIVE TO DATE Blood Culture Preliminary (changed) 10/18/21-1058 SPECIMEN COLLECTED NAME: Moy Fernandez LOC: [facility] #: [id number] AGE/SX: 70/M ROOM: [facility] RE01/31/[address]: Karl Wilkerson MD : 1950 BED: 1 DIS: FAX #: STATUS: ADM IN TLOC: Spec #: [id number] Mariaa: 01/31/21 Status: COMP Req #: [id number] Recd: 01/31/[address]: Chad Penny DO Src: Urine CC SpDesc: Ordered: Procedure Result Verified Site Urine Culture Final 02/02/21 Organism 1 Escherichia coli esbl Doswell Count >100,000 CFU/ml DAY 2 Esccolesb M.I.C. RX --------- ------ * Amikacin <=16 S * Amoxicillin/Clavulanate 16/8 I * Ampicillin >16 R * Ampicillin/Sulbactam >16/8 R * Aztreonam >16 R * Cefepime >16 R * Ceftriaxone >32 R * Cefuroxime >16 R * Ciprofloxacin >2 R * Gentamicin 8 I * Imipenem <=1 S * Levofloxacin >4 R * Nitrofurantoin <=32 S * Tetracycline <=4 S * Tobramycin >8 R * Trimethoprim/Sulfamethoxazole >2/38 R * Piperacillin/Tazobactam <=16 S Urine Culture Preliminary (changed) 02/01/21 Organism 1 Gram Negative Rods Doswell Count >100,000 CFU/ml DAY 1, RESULTS TO FOLLOW NAME: Moy Fernandez LOC: [facility] U #: [id number] AGE/SX: 70/M ROOM: [facility] RE01/31/[address]: Karl Wilkerson MD : 1950 BED: 1 DIS: FAX #: STATUS: ADM IN TLOC: Spec #: [id number] Mariaa: 02/01/21 Status: COMP Req #: [id number] Recd: 02/01/[address]: Hira Ruiz MD Src: Ankle SpDesc: Wound Ordered: WC and GS Comments: Comment left foot Procedure Result Verified Site Gram Stain Final 02/01/21-1002 Result RARE WHITE BLOOD CELLS FEW GRAM POSITIVE COCCI IN PAIRS FEW GRAM NEGATIVE RODS FEW GRAM POSITIVE RODS Wound Culture Final 02/05/21-707 Organism 1 Escherichia coli esbl Growth MODERATE Organism 2 Staphylococcus aureus Growth MODERATE CRITICAL RESULT YES/NO: YES TIME: 1057 DATE: 02/04/21 TO AND READ BACK BY: CAROLYN CRITICAL CALLED BY: DENIS Arriaga S aureus M.I.C. RX M.I.C. RX --------- ------ --------- ------ * Amikacin <=16 S * Amoxicillin/Clavulanate 16/8 I <=4/2 S * Ampicillin >16 R <=2 R * Ampicillin/Sulbactam >16/8 R <=8/4 S * Aztreonam >16 R * Cefepime >16 R * Ceftriaxone >32 R <=8 S * Cefuroxime >16 R * Ciprofloxacin >2 R >2 R * Clindamycin <=0.5 R * Erythromycin >4 R * Gentamicin <=2 S <=4 S * Imipenem <=1 S * Levofloxacin >4 R >4 R * Linezolid 4 S * Oxacillin 0.5 S * Penicillin <=0.03 R * Rifampin <=1 S * Tetracycline <=4 S >8 R * Trimethoprim/Sulfamethoxazole >2/38 R <=0.5/9.5 S Vancomycin 2 S * Piperacillin/Tazobactam <=16 S Daptomycin <=0.5 S Wound Culture Preliminary (changed) 02/04/21-1058 Organism 1 Escherichia coli esbl Growth MODERATE Organism 2 Staphylococcus aureus Growth MODERATE DAY 3 RESULTS TO FOLLOW CRITICAL RESULT YES/NO: YES TIME: 1057 DATE: 02/04/21 TO AND READ BACK BY: CAROLYN CRITICAL CALLED BY: DENIS Velazquezb M.I.C. RX --------- ------ * Amikacin <=16 S * Amoxicillin/Clavulanate 16/8 I * Ampicillin >16 R * Ampicillin/Sulbactam >16/8 R * Aztreonam >16 R * Cefepime >16 R * Ceftriaxone >32 R * Cefuroxime >16 R * Ciprofloxacin >2 R * Gentamicin <=2 S * Imipenem <=1 S * Levofloxacin >4 R * Tetracycline <=4 S * Trimethoprim/Sulfamethoxazole >2/38 R * Piperacillin/Tazobactam <=16 S Wound Culture Preliminary (changed) 02/03/21 Organism 1 Escherichia coli esbl Growth MODERATE DAY 2 Esccolesb M.I.C. RX --------- ------ * Amikacin <=16 S * Amoxicillin/Clavulanate 16/8 I * Ampicillin >16 R * Ampicillin/Sulbactam >16/8 R * Aztreonam >16 R * Cefepime >16 R * Ceftriaxone >32 R * Cefuroxime >16 R * Ciprofloxacin >2 R * Gentamicin <=2 S * Imipenem <=1 S * Levofloxacin >4 R * Tetracycline <=4 S * Trimethoprim/Sulfamethoxazole >2/38 R * Piperacillin/Tazobactam <=16 S Wound Culture Preliminary (changed) 02/03/21 Organism 1 Escherichia coli esbl Growth MODERATE DAY 2 Esccolesb M.I.C. RX --------- ------ * Amikacin <=16 S * Amoxicillin/Clavulanate 16/8 I * Ampicillin >16 R * Ampicillin/Sulbactam >16/8 R * Aztreonam >16 R * Cefepime >16 R * Ceftriaxone >32 R * Cefuroxime >16 R * Ciprofloxacin >2 R * Gentamicin <=2 S * Imipenem <=1 S * Levofloxacin >4 R * Tetracycline <=4 S * Trimethoprim/Sulfamethoxazole >2/38 R * Piperacillin/Tazobactam <=16 S Wound Culture Preliminary (changed) 02/02/21 Organism 1 Gram Negative Rods Growth MODERATE HEAVY MIXED SUPERFICIAL ELZA ON DAY 1 NAME: Moy Fernandez LOC: [facility] #: [id number] AGE/SX: 70/M ROOM: [facility] RE01/31/[address]: Karl Wilkerson MD : 1950 BED: 1 DIS: FAX #: STATUS: ADM IN TLOC: Spec #: [id number] Mariaa: 02/02/21-UNK Status: COMP Req #: [id number] Recd: 02/02/[address]: Hugo Davenport MD Src: Foot SpDesc: Left Ordered: Tissue Cult GS Procedure Result Verified Site Gram Stain Final 02/03/21 Result RARE WHITE BLOOD CELLS RARE EPITHELIAL CELLS RARE GRAM NEGATIVE RODS Tissue Culture Final 02/05/21-1015 Organism 1 Escherichia coli esbl Growth HEAVY Organism 2 Proteus mirabilis Growth FEW ISOLATE 1: FOR SUSCEPTIBILITIES, SEE [id number]. [facility] RX --------- ------ * Amikacin <=16 S * Amoxicillin/Clavulanate <=8/4 S * Ampicillin <=8 S * Ampicillin/Sulbactam <=8/4 S * Aztreonam <=4 S * Cefepime <=8 S * Ceftriaxone <=1 S * Cefuroxime <=4 S * Ciprofloxacin <=1 S * Gentamicin <=2 S * Levofloxacin <=2 S * Tetracycline >8 R * Trimethoprim/Sulfamethoxazole <=2/38 S * Piperacillin/Tazobactam <=16 S Tissue Culture Preliminary (changed) 02/04/21-1054 Organism 1 Escherichia coli esbl Growth HEAVY Organism 2 Proteus mirabilis Growth FEW DAY 2 ISOLATE 1: FOR SUSCEPTIBILITIES, SEE [id number]. P mirabili [facility] RX --------- ------ * Amikacin <=16 S * Amoxicillin/Clavulanate <=8/4 S * Ampicillin <=8 S * Ampicillin/Sulbactam <=8/4 S * Aztreonam <=4 S * Cefepime <=8 S * Ceftriaxone <=1 S * Cefuroxime <=4 S * Ciprofloxacin <=1 S * Gentamicin <=2 S * Levofloxacin <=2 S * Tetracycline >8 R * Trimethoprim/Sulfamethoxazole <=2/38 S * Piperacillin/Tazobactam <=16 S Tissue Culture Preliminary (changed) 02/04/21 Organism 1 Escherichia coli esbl Growth HEAVY Organism 2 Proteus mirabilis Growth FEW DAY 2 ISOLATE 1: FOR SUSCEPTIBILITIES, SEE [id number]. [facility] RX --------- ------ * Amikacin <=16 S * Amoxicillin/Clavulanate <=8/4 S * Ampicillin <=8 S * Ampicillin/Sulbactam <=8/4 S * Aztreonam <=4 S * Cefepime <=8 S * Ceftriaxone <=1 S * Cefuroxime <=4 S * Ciprofloxacin <=1 S * Gentamicin <=2 S * Levofloxacin <=2 S * Tetracycline >8 R * Trimethoprim/Sulfamethoxazole <=2/38 S * Piperacillin/Tazobactam <=16 S Tissue Culture Preliminary (changed) 02/03/21 Organism 1 Gram Negative Rods Growth HEAVY Organism 2 Gram Negative Rods#2 Growth FEW RESULTS TO FOLLOW Vitals: Last Vital Signs Temp 98.2 F 02/11/21 20:00 Pulse 77 02/11/21 20:00 Resp 18 02/11/21 20:00 BP 133/75 02/11/21 20:00 Pulse Ox 98 02/11/21 20:00 Discharge Plan Discharge Patient Disposition: Home Condition: Stable Prescriptions: New (DME) diabetic supplies, miscellan. Misc See Rx Instructions .Route Qty: 1 RF: 0 Betadine 10 % solution 1 applic topical BID Qty: 236 RF: 0 Dakin's Solution 0.125 % solution 1 applic topical BID Qty: 473 RF: 0 (DME) Kerlix 4 1/2 X 147 bandage See Rx Instructions .Route Qty: 48 RF: 3 (DME) elastic bandage 4 X 4.5 -yard bandage See Rx Instructions .Route Qty: 144 RF: 3 (DME) Curity Abdominal Pad 7 1/2 X 8 bandage See Rx Instructions .Route Qty: 648 RF: 3 Continued metoprolol tartrate 25 mg tablet See Rx Instructions .ROUTE .COMPLEX RF: 0 ascorbic acid (vitamin C) [Vitamin C] 500 mg Tablet 500 mg PO DAILY@0800 RF: 0 [place] Plus Cold+Flu 12.5-10-20-650 mg Powder In Packet 1 packet PO Q4H PRN (Reason: reflux) RF: 0 sevelamer carbonate 800 mg Tablet 800 mg PO TID@08,,20 RF: 0 magnesium hydroxide [Milk of Magnesia] 400 mg/5 mL Suspension 30 ml PO DAILY PRN (Reason: Constipation) RF: 0 Enema Disposable 19-7 gram/118 mL Enema 118 ml MT DAILY PRN (Reason: Constipation) RF: 0 Cough Drops See Rx Instructions .ROUTE .COMPLEX RF: 0 atorvastatin 40 mg Tablet 40 mg PO DAILY@1999 30 Days Qty: 30 RF: 0 Keppra 500 mg Tablet 500 mg PO BID@0800,1999 Qty: 30 RF: 0 isosorbide mononitrate 30 mg Tablet Extended Release 24 Hr 30 mg PO DAILY@0800 Qty: 30 RF: 0 Senna-S 8.6-50 mg Tablet 1 tab PO BID PRN (Reason: Constipation) Qty: 15 RF: 0 amlodipine 5 mg Tablet 5 mg PO DAILY@0800 Qty: 30 RF: 0 acetaminophen 650 mg Tablet Extended Release 650 mg PO Q4H MDD 3,000 mg PRN (Reason: Pain) Qty: 90 RF: 0 bisacodyl 10 mg Suppository 10 mg MT DAILY PRN (Reason: Constipation) Qty: 15 RF: 0 pantoprazole 40 mg Tablet,Delayed Release (Dr/Ec) 40 mg PO BID@08,20 Qty: 30 RF: 0 Entresto 24-26 mg tablet 1 tab PO BID@08,20 Qty: 60 RF: 0 Held clopidogrel 75 mg tablet 75 mg PO DAILY@0800 RF: 0 Hold Instructions: Resume on 02/24/21. aspirin 81 mg tablet,delayed release (DR/EC) 81 mg PO DAILY@0800 RF: 0 Hold Instructions: Resume on 02/24/21. Discontinued diclofenac sodium 1 % Gel 2 - 4 g TOPICAL BID@,20 RF: 0 Pro Stat Nutritional 15 ml PO BID@,20 RF: 0 Santyl 250 unit/gram Ointment 1 applic TOPICAL DAILY RF: 0 morphine concentrate 20 mg/mL Syringe See Rx Instructions .ROUTE .COMPLEX RF: 0 Discharge Orders: Discharge Order (Routine); Ordered 02/12/21 Ordered By: Karl Wilkerson Other Ambulatory Orders: DME: Hospital Bed (Order) Location: None Selected Ordered By: Karl Wilkerson DME: Miscellaneous (Order) Location: None Selected Ordered By: Karl Wilkerson DME: Wheelchair (Order) Location: None Selected Ordered By: Karl Wilkerson Referrals: Primary, provider [Other] - 4-7 days (Establish care) Wound, care [Other] - 4-7 days (Establish care in [place]) Cardiology, provider [Other] - 4-7 days (Establish care) Nephrology, provider [Other] - 4-7 days (Establish care) Hemodialysis, clinic [Other] - 02/15/21 Discharge Diet: As Directed Discharge Activity: Limit activity as instructed, Wheelchair as instructed and As per PT/OT instructions Activity Restrictions/Additional Instructions: Please make sure to establish with the above providers as soon as you arrive in [place]. You will need close follow-up. Continue IV antibiotics with dialysis, both ertapenem and vancomycin. Continue to optimize nutrition, continue Nepro protein shakes 3 times daily with meals. Please discuss with your primary doctor and wound care referral to surgery to complete left below-knee amputation. Discussed referral for rehabilitation with physical therapy at new location. Continue antibiotic infusions after dialysis with 1000 mg ertapenem and 1000 mg vancomycin to complete an additional 5 weeks of antibiotic therapy. Please discuss with your doctors also additional assessment of the right stump wound which continues to produce drainage, would benefit from additional assessment by MRI to exclude osteomyelitis at the right stump. If osteomyelitis is found to you would need longer antibiotic course to treat this even after left below-knee amputation. Please discuss with your new primary doctor to have the vancomycin levels followed targeting levels appropriate for bone infection. For wound care: Right below-knee - amputation stump site paint with Betadine twice daily. For left foot - pack with 0.125% Dakins bid using 1 inch Nu Gauze Followed by [facility]BD, kerlix and Walter wrap. Also left heel to be painted with Betadine once a day Please do not bear weight on the left leg as this may lead to pathological fractures, may risk spread of infection or other complications. Continue renal, dialysis, consistent carbohydrate diet. Please continue to monitor blood glucose 3 times a day. 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 Please note your aspirin Plavix are held currently. Please follow-up with cardiology with regards to when it may be safe to restart these medications. Resume follow-up with cardiology with regards to peripheral arterial disease. Congestive heart failure. Coronary artery disease. Discuss with your new primary doctor consideration of referral to neurology for follow-up regarding history of seizures. Discharge Attestations Time Spent in Discharge Care*: greater than 30 min Status at Discharge: Cognitive status at discharge: cognitively intact , Behavioral status at discharge: cooperative , Quality Metrics Clinical Quality Measures During this hospital stay, did patient experience: None Coding Level of Care Code Acute g [facility] note Diagnoses Osteomyelitis of left lower extremity M86.9 Chronic wound of extremity Acute encephalopathy G93.40 Cellulitis L03.90 Cystitis N30.90 Peripheral arterial disease I73.9 Anemia D64.9 ESRD (end stage renal disease) N18.6 HTN (hypertension) I10 Pseudoaneurysm following procedure T81.718A; I72.9 CHF (congestive heart failure) I50.42 Heart failure chronicity: chronic Heart failure type: combined systolic and diastolic
[2021-02-11 22:17] LABS: Glucose Point of Care 182 mg/dL (70-110)
[2021-02-12] VITALS: BP 161/79; PULSE 80; RESP 18; TEMP 36.7; O2SAT 96
[2021-02-12 04:00] VITALS: BP 160/77; PULSE 78; RESP 18; TEMP 36.6; O2SAT 96
--- NOTE | 2021-02-12 06:49 | PC.NURSE ---
Pt two assist from w/c to private vehicle and discharged home with his brother. Brother and pt denies questions or concerns regarding discharge instructions. Pt belongs with brother.
== END 2021-02-12 06:30 | disposition home or self-care (01) | DRG 255 ==
LOC: ER 14:18 → MEDSURG 14:59
PROVIDERS: Internal Medicine Nephrology; Surgery; Admitting Provider Family Medicine; Emergency Provider Family Medicine; PCP Internal Medicine; Visit Provider Internal Medicine
PROC: 0Y6Y0Z3 Detachment at Left 5th Toe, Low, Open Approach (ICD-10-PCS; principal; 2021-02-02 13:00)
DX: E11.52 Type 2 diabetes mellitus with diabetic peripheral angiopathy with gangrene (principal); N18.6 End stage renal disease; I96 Gangrene, not elsewhere classified; M86.9 Osteomyelitis, unspecified; L03.116 Cellulitis of left lower limb; L03.115 Cellulitis of right lower limb; I13.2 Hypertensive heart and chronic kidney disease with heart failure and with stage 5 chronic kidney disease, or end stage renal disease; I50.42 Chronic combined systolic (congestive) and diastolic (congestive) heart failure; N30.00 Acute cystitis without hematuria; G93.40 Encephalopathy, unspecified; E11.42 Type 2 diabetes mellitus with diabetic polyneuropathy; E11.69 Type 2 diabetes mellitus with other specified complication; Z98.62 Peripheral vascular angioplasty status; T87.89 Other complications of amputation stump; D63.1 Anemia in chronic kidney disease; I25.10 Atherosclerotic heart disease of native coronary artery without angina pectoris; Z95.1 Presence of aortocoronary bypass graft; E11.22 Type 2 diabetes mellitus with diabetic chronic kidney disease; Z99.2 Dependence on renal dialysis; Z86.16 Personal history of COVID-19; I25.5 Ischemic cardiomyopathy; Z96.82 Presence of neurostimulator; B96.20 Unspecified Escherichia coli [E. coli] as the cause of diseases classified elsewhere; Z87.891 Personal history of nicotine dependence; B96.4 Proteus (mirabilis) (morganii) as the cause of diseases classified elsewhere; I25.2 Old myocardial infarction; G40.909 Epilepsy, unspecified, not intractable, without status epilepticus; Z99.3 Dependence on wheelchair; Z87.440 Personal history of urinary (tract) infections
CPT/HCPCS: 36415; 36416; 36430; 36600; 71045; 73701; 74176; 76882; 80048; 80051; 80053; 80074; 80202; 81001; 82306; 82310; 82330; 82550; 82728; 82805; 82962; 83540; 83550; 83605; 83735; 83880; 83970; 84100; 84145; 84484; 85025; 85610; 85651; 86140; 86850; 86900; 86920; 87040; 87070; 87075; 87077; 87086; 87176; 87186; 87205; 88305; 88311; 92610; 93005; 93926; 94664; 96365; 96367; 96375; 97161; 97530; 99285; J0696; J0743; J1170; J1335; J1644; J2270; J2370; J2405; J2704; J3010; J3370; J3475; J7030; J7050; P9016; Q3014; Q4081; Q9967